=== PATIENT | male | born 1980 | race Caucasian/White ===

== ENCOUNTER → 2017-07-31 14:07 | Outpatient (CLI) | payer MEDICAID, SELFPAY ==
[2017-07-31 15:21] LABS: Hemoglobin 9.3 g/dl (13.0-16.5); Mean Corp Hgb Conc 32.1 g/gl (32-36); Mean Corpuscular Hgb 30.7 pg (27.0-32.0); Mean Corpuscular Volume 95.7 fL (80-94); Platelet Count 549 K/mm3 (150-450); RBC Distribution Width CV 13.4 % (11.6-14.6); RBC Distribution Width SD 44.3 fl (35.1-43.9); Red Blood Count 3.03 M/mm3 (4.6-6.2); White Blood Count 6.5 K/mm3 (4.4-11.0)
[2017-07-31 15:28] LABS: Scan Indicated on CBC? Y/N NO
[2017-07-31 15:38] LABS: ALB/GLOB Ratio 0.8 RATIO (0.9-2.4); AST(SGOT) 35 U/L (15-37); Alanine Aminotransfer ALT/SGPT 42 U/L (16-61); Albumin, Serum 3.4 g/dL (3.2-5.0); Alkaline Phosphatase 156 U/L (45-117); BUN 49 mg/dL (7-18); BUN/Creat Ratio 19.1 RATIO (10-20); Bilirubin, Direct 0.07 mg/dL (0.00-0.30); Calcium,Total 8.3 mg/dL (8.5-10.1); Chloride 105 mmol/L (98-107); Creatinine, Serum 2.57 mg/dL (0.70-1.30); EST Glomerular Filtration Rate 30 mL/min (>60); Est Glom Filt Rate - Afr Amer 37 mL/min (>60); Globulin 4.4 g/dL (2.2-4.2); Glucose 154 mg/dL (74-106); Phosphorus 4.3 mg/dL (2.5-4.9); Potassium 5.2 mmol/L (3.5-5.1); Protein, Total 7.8 g/dL (6.4-8.2); Sodium Level 139 mmol/L (136-145)
[2017-07-31 16:27] LABS: Hemoglobin A1c 8.2 % (4.2-6.3)
== END ==
PROVIDERS: Family Provider Internal Medicine; PCP Internal Medicine; Visit Provider Internal Medicine
DX: E10.9 Type 1 diabetes mellitus without complications (principal)
CPT/HCPCS: 36415; 80069; 82247; 82248; 83036; 84075; 84156; 84450; 84460; 85027

== ENCOUNTER → 2017-10-26 13:41 | Outpatient (CLI) | payer MEDICAID, SELFPAY ==
--- NOTE | 2017-10-26 13:44 | CT_ITS ---
STUDY: CT ABDOMEN AND PELVIS WITHOUT CONTRAST REASON FOR EXAM: Male, 37 years old. Hematuria. Stage III chronic kidney disease. RADIATION DOSAGE (If Supplied By Facility): CTDIvol = ( 13.07 ) mGy, DLP = ( 711.99 ) mGycm TECHNIQUE: Transaxial images were obtained from the dome of the diaphragm to the symphysis pubis without oral contrast, and without intravenous contrast. Sagittal and coronal images were reconstructed. Individualized dose optimization techniques were used for this CT. COMPARISON: Comparison is made with prior study dated June 06, 2017. FINDINGS: The visualized lung bases are unremarkable. The visualized portions of the heart are within normal limits. Normal liver. The gallbladder is contracted. Normal spleen. Normal pancreas. Normal bilateral adrenal glands. Once again, there is a cortical thinning involving both kidneys with the numerous cortical calcifications. This is basically unchanged. This is in keeping with the patient's history of chronic renal disease. There is a small hiatal hernia. Normal small intestine. A large amount of fecal material is seen in the colon. There are surgical clips in the region of the appendix consistent with a prior appendectomy. Normal abdominal aorta. Normal inferior vena cava. Normal retroperitoneum. A suprapubic catheter is seen. The urinary bladder is empty. There is thinning of the anterior abdominal wall. Normal osseous structures. CT/Abdomen/Pelvis without Cont IMPRESSION: Bilateral renal atrophy with diffuse cortical thickening. Suprapubic catheter within the bladder. The bladder is empty. Fecal material is seen throughout the colon. Electronically Signed: Jin Daly MD at 14:47 EDT Tel [phone], Service support ,
== END ==
PROVIDERS: Family Provider Internal Medicine; PCP Internal Medicine; Visit Provider Urology
DX: N28.9 Disorder of kidney and ureter, unspecified (principal); N26.1 Atrophy of kidney (terminal); R31.9 Hematuria, unspecified
CPT/HCPCS: 74176

== ENCOUNTER → 2017-11-17 07:27 | Outpatient (CLI) | payer MEDICAID, SELFPAY ==
[2017-05-21 06:14] VITALS: BP 101/70; BP 107/71; BP 111/69
[2017-07-12 12:55] VITALS: BMI 37.9
[2017-07-12 17:49] VITALS: BP 140/87
[2017-11-17 09:15] LABS: Hematocrit 38.8 % (40-54); Hemoglobin 12.7 g/dl (13.0-16.5); Mean Corp Hgb Conc 32.7 g/gl (32-36); Mean Corpuscular Hgb 30.5 pg (27.0-32.0); Mean Corpuscular Volume 93.3 fL (80-94); Mean Platelet Vol. 10.4 fl (6.2-12.0); Platelet Count 217 K/mm3 (150-450); RBC Distribution Width SD 50.1 fl (35.1-43.9); Red Blood Count 4.16 M/mm3 (4.6-6.2); White Blood Count 6.3 K/mm3 (4.4-11.0)
[2017-11-17 09:20] LABS: Protein, Urine (Random) < 6.0 mg/dL (<11.9); Scan Indicated on CBC? Y/N NO
[2017-11-17 09:33] LABS: Albumin, Serum 3.6 g/dL (3.2-5.0); BUN 53 mg/dL (7-18); BUN/Creat Ratio 14.6 RATIO (10-20); Calcium,Total 8.7 mg/dL (8.5-10.1); Chloride 108 mmol/L (98-107); Creatinine, Serum 3.63 mg/dL (0.70-1.30); EST Glomerular Filtration Rate 20 mL/min (>60); Est Glom Filt Rate - Afr Amer 25 mL/min (>60); Glucose 114 mg/dL (74-106); Phosphorus 4.2 mg/dL (2.5-4.9); Potassium 4.9 mmol/L (3.5-5.1); Sodium Level 143 mmol/L (136-145)
[2017-11-17 12:28] LABS: Vitamin D,25 Hydroxy 50.8 ng/mL (29.95-100.01)
[2017-11-17 12:32] LABS: PTHIN 118.4 pg/mL (18.4-80.1)
[2017-11-17 15:00] LABS: Microalbumin,Random Urine 62.5 mg/L (NO RANGE EST.); Microalbumin:Creatinine Ratio 290.7 mg/g CRE (<30 mg/g CRE)
== END ==
PROVIDERS: Family Provider Internal Medicine; PCP Internal Medicine; Visit Provider Internal Medicine Nephrology
DX: E55.9 Vitamin D deficiency, unspecified (principal); N18.4 Chronic kidney disease, stage 4 (severe); N25.81 Secondary hyperparathyroidism of renal origin; D63.1 Anemia in chronic kidney disease
CPT/HCPCS: 36415; 80069; 82043; 82306; 82570; 83970; 84156; 85027

== ENCOUNTER 2017-11-30 19:21 | Emergency (ER) | payer MEDICAID, SELFPAY ==
[2017-11-30 19:23] VITALS: BP 144/77; PULSE 99; RESP 18; TEMP 36.6; O2SAT 99; BMI 36.8
--- NOTE | 2017-11-30 20:05 | CT_ITS ---
STUDY: CT ABDOMEN AND PELVIS WITHOUT CONTRAST REASON FOR EXAM: Male, 37 years old. Abdominal and mid back pain RADIATION DOSAGE (If Supplied By Facility): CTDIvol = ( 16.53 ) mGy, DLP = ( 859.19 ) mGycm TECHNIQUE: Transaxial images were obtained from the dome of the diaphragm to the symphysis pubis without oral contrast, and without intravenous contrast. Sagittal and coronal images were reconstructed. Individualized dose optimization techniques were used for this CT. COMPARISON: October 26, 2017 FINDINGS: The visualized lung bases are unremarkable. The visualized portions of the heart are within normal limits. Normal liver. Normal gallbladder and extrahepatic biliary system. Normal spleen. Normal pancreas. Normal bilateral adrenal glands. Bilateral nephrocalcinosis and renal atrophy. No evidence for hydronephrosis or ureteral calculus. No well-defined renal nodules Normal visualized stomach. There is diffuse nonspecific ileus and fecal retention throughout the colon. No evidence for small bowel obstruction or pneumoperitoneum.. Appendix not identified which may be consistent with prior appendectomy. Normal abdominal aorta. Normal inferior vena cava. Normal retroperitoneum. Incompletely distended diffusely thick-walled bladder containing suprapubic catheter. There is moderate-sized anterior abdominal wall hernia containing loop of bowel.. There is no definitive evidence for proximal obstruction or incarceration.. Normal osseous structures. CT/Abdomen/Pelvis without Cont IMPRESSION: Nonspecific ileus with diffuse fecal retention in the colon.. Bilateral nonspecific nephrocalcinosis and renal atrophy Moderate size anterior abdominal wall hernia containing loop of small bowel without evidence for incarceration or proximal obstruction Other findings as above Electronically Signed: Guille Bobo MD at 21:55 EDT , Service support ,
--- NOTE | 2017-11-30 20:06 | ED.VISSUMM ---
- ER Visit Summary Date of Service: 11/30/17 Chief Complaint: Abdominal pain History of Present Illness: The patient is a 37 M presenting with abdominal pain. He states it started this afternoon. Pain is diffuse. He denies nausea, vomiting, diarrhea. He had a large bowel movement before this began. He states he has history of previous bowel obstructions. He also has history of previous UTI. He has a suprapubic catheter in place. He denies fever or other complaints. Physical Examination: Vitals are stable. Patient is afebrile. Alert no acute distress. HEENT exam is unremarkable. Neck is supple. Lungs are clear and equal bilaterally. Heart is regular rate and rhythm. Abdomen is soft mild diffuse tenderness with no rebound or guarding. Suprapubic catheter Extremities are unremarkable. Skin is warm and dry. No focal neurologic deficit. Remainder of exam is unremarkable. Emergency Department Course and Treatment: Patient is given morphine, Zofran with improvement. CBC normal except for hemoglobin 11.8. Chemistries show glucose 186, BUN 60, creatinine 3.8. His previous creatinine was 3.6 on November 17. He is followed by nephrology and had an appointment last week. His elevated creatinine is being followed by nephrology. Urinalysis shows 50-100 white blood cells 10-25 red blood cells. Suprapubic catheter is draining well. CT abdomen pelvis shows nonspecific ileus with diffuse fecal retention in the colon. Bilateral nonspecific nephrocalcinosis and renal atrophy Moderate size anterior abdominal wall hernia containing loop of small bowel without evidence for incarceration or proximal obstruction. Patient did have a large bowel movement today. He is on stool softeners at home. He is given a prescription for Cipro. Urine culture was sent. On repeat evaluation, his abdomen is soft and nontender with no guarding or rebound. Advised to follow-up with his primary care physician. Advised return to ED for worsening complaints. Disposition: Discharged home Impression: Abdominal pain, UTI This note was generated with [employer] dictation software. It may contain incorrect words, spelling, and punctuation that were not noted in review of the chart prior to signing ED Disposition - Plan for ED Patient: Chief Complaint: Abd Pain Referrals: Koki Finney MD [Primary Care Provider] -
[2017-11-30 20:28] LABS: Absolute Lymphocyte Count 1.93 X10^3/ul (0.83-4.51); Absolute Neutrophil Count 4.5 X10^3/uL (2.0-7.7); Basophil# 0.01 X10^3/uL; Basophil% 0.1 % (0-1); Eosinophil# 0.16 X10^3/uL; Eosinophils% 2.3 % (0-5); Hematocrit 35.7 % (40-54); Hemoglobin 11.8 g/dl (13.0-16.5); Lymphocyte # 1.93 X10^3/ul (4.0); Lymphocyte % 27.1 % (19-41); Mean Corp Hgb Conc 33.1 g/gl (32-36); Mean Corpuscular Hgb 31.2 pg (27.0-32.0); Mean Corpuscular Volume 94.4 fL (80-94); Mean Platelet Vol. 10.3 fl (6.2-12.0); Monocyte# 0.48 X10^3/uL; Monocyte% 6.8 % (0-10); Neutrophil # 4.52 X10^3/uL (2.7-7.7); Neutrophil % 63.6 % (47-70); POSITIVE COUNT NO; POSITIVE DIFFERENTIAL NO; POSITIVE MORPHOLOGY NO; Platelet Count 193 K/mm3 (150-450); RBC Distribution Width CV 14.2 % (11.6-14.6); RBC Distribution Width SD 48.6 fl (35.1-43.9); Red Blood Count 3.78 M/mm3 (4.6-6.2); White Blood Count 7.1 K/mm3 (4.4-11.0)
[2017-11-30] MEDS: Ondansetron 4 MG/2 ML Vial IV (20:36)
[2017-11-30] MEDS: Morphine 4 MG/ML Syringe IV (20:36)
[2017-11-30 20:41] LABS: ALB/GLOB Ratio 0.7 RATIO (0.9-2.4); AST(SGOT) 19 U/L (15-37); Alanine Aminotransfer ALT/SGPT 27 U/L (16-61); Albumin, Serum 3.5 g/dL (3.2-5.0); Alkaline Phosphatase 147 U/L (45-117); Anion Gap 7 (5-15); BUN 60 mg/dL (7-18); BUN/Creat Ratio 15.5 RATIO (10-20); Calcium,Total 8.3 mg/dL (8.5-10.1); Chloride 105 mmol/L (98-107); Creatinine, Serum 3.88 mg/dL (0.70-1.30); EST Glomerular Filtration Rate 19 mL/min (>60); Est Glom Filt Rate - Afr Amer 23 mL/min (>60); Estimated Creatinine Clearance 22.25 ml/min; Globulin 4.7 g/dL (2.2-4.2); Glucose 186 mg/dL (74-106); Protein, Total 8.2 g/dL (6.4-8.2); Sodium Level 139 mmol/L (136-145)
[2017-11-30 22:05] LABS: Mucous, Urine 0 SEEN /hpf (<or=2+)
[2017-11-30 22:06] LABS: Color, Urine Yellow (Yellow); Glucose, Dipstick 100 mg/dl (Normal); Ketone-Dipstick Negative (Negative); Leukocyte Esterase-Dipstick 500 /ul (Negative); Nitrite-Dipstick Negative (Negative); Occult Blood-Urine 250 /ul (Negative); Protein-Dipstick 15 mg/dl (Negative); Specific Gravity, Urine 1.005 (1.002-1.030); Urine Bilirubin Dipstick Negative (Negative); Urine Clarity Sl. Cloudy (Clear); Urine Urobilinogen Normal (Normal); Urine pH 6.5 (5.0 - 8.0)
[2017-11-30 22:07] VITALS: BP 128/77; PULSE 85; RESP 16
[2017-11-30 22:18] LABS: Bacteria RARE /hpf (None Seen); Red Blood Cells-Urine 10-25 SEEN /hpf (0-5); Squamous Epithelial Cells - UA 0-5 SEEN /hpf (0-5); White Blood Cells 50-100 SEEN /hpf (0-5)
--- NOTE | 2017-11-30 22:55 | ED.DEP ---
ED Disposition - Plan for ED Patient: Chief Complaint: Abd Pain Instructions: ED Abdominal Pain Unkn Cause, ED UTI Cystitis Male Prescriptions: Ciprofloxacin [Cipro] 500 mg PO BID #14 tablet Referrals: Koki Finney MD [Primary Care Provider] -
[2017-11-30] MEDS: Ciprofloxacin 500 MG Tablet PO (23:22)
[2017-11-30 23:23] VITALS: BP 134/85; PULSE 85; RESP 16
== END 2017-11-30 23:28 | disposition home or self-care (01) ==
LOC: ED 20:08
PROVIDERS: Emergency Provider Emergency Medicine; Family Provider Internal Medicine; PCP Internal Medicine
DX: N39.0 Urinary tract infection, site not specified (principal); K56.7 Ileus, unspecified; E83.59 Other disorders of calcium metabolism; N29 Other disorders of kidney and ureter in diseases classified elsewhere; K43.9 Ventral hernia without obstruction or gangrene; I12.9 Hypertensive chronic kidney disease with stage 1 through stage 4 chronic kidney disease, or unspecified chronic kidney disease; E11.22 Type 2 diabetes mellitus with diabetic chronic kidney disease; N18.9 Chronic kidney disease, unspecified; Z79.4 Long term (current) use of insulin; Z87.440 Personal history of urinary (tract) infections; Z79.82 Long term (current) use of aspirin; Z79.01 Long term (current) use of anticoagulants; Z79.899 Other long term (current) drug therapy
CPT/HCPCS: 74176; 80053; 81001; 85025; 87077; 87086; 87088; 87186; 96374; 96375; 99285; A4216; J2405

== ENCOUNTER 2017-12-10 06:18 | Emergency (ER) | payer MEDICAID, SELFPAY ==
[2017-12-10 06:19] VITALS: BP 133/102; PULSE 101; RESP 20; TEMP 36.7; O2SAT 94; BMI 37.5
--- NOTE | 2017-12-10 06:43 | ED.VISSUMM ---
- ER Visit Summary Date of Service: 12/10/17 Chief Complaint: [Suprapubic catheter needs replaced] History of Present Illness: The patient is a 37 M [presents to the emergency department with complaint of accidentally removing his suprapubic catheter. Patient states that he accidentally pulled on it and it came out. Patient states he had the catheter replaced 2 days ago as he normally has it replaced every 2 weeks. Patient denies complaints otherwise. He denies any recent illness although he did have a urinary tract infection about 2 weeks ago. Patient denies fever. Patient denies nausea or vomiting.] Physical Examination: [HEENT-PERRLA, EOMI. Cranial nerves II through XII grossly intact. TMs clear. Mucous membranes moist. No adenopathy. Cardiovascular-regular rate and rhythm without murmur or ectopy Lungs-clear to auscultation, chest wall stable without crepitus or subcu emphysema Abdomen-normoactive bowel sounds, soft, nontender, no rebound or rigidity, no peritoneal signs. Supra Pubic catheter site without bleeding and without sign of infection. Extremities-intact ?4, normal range of motion, normal pulses, atraumatic] Test Results: [None indicated] Emergency Department Course and Treatment: [Patient normally has an 18 Frisian catheter therefore I was able to easily replace the suprapubic catheter with an 18 Frisian Fracno.] Immediate return of urine on placement of catheter. Treatment Plan: [Patient to follow-up with his primary care physician as needed] Disposition: [Discharged to home in stable condition] Impression: [Suprapubic catheter replaced] This note was generated with [employer] dictation software. It may contain incorrect words, spelling, and punctuation that were not noted in review of the chart prior to signing ED Disposition - Plan for ED Patient: Chief Complaint: Complaint Referrals: Koki Finney MD [Primary Care Provider] -
--- NOTE | 2017-12-10 06:46 | ED.DEP ---
ED Disposition - Plan for ED Patient: Chief Complaint: Complaint Instructions: Discharge Instructions: Caring for Your Suprapubic Catheter Referrals: Koki Finney MD [Primary Care Provider] - As Needed
[2017-12-10 06:56] VITALS: BP 156/91; PULSE 104; RESP 16; O2SAT 93
== END 2017-12-10 07:24 | disposition home or self-care (01) ==
PROVIDERS: Emergency Provider Emergency Medicine; Family Provider Internal Medicine; PCP Internal Medicine
DX: T83.028A Displacement of other urinary catheter, initial encounter (principal); E11.22 Type 2 diabetes mellitus with diabetic chronic kidney disease; N18.9 Chronic kidney disease, unspecified; J45.909 Unspecified asthma, uncomplicated; Z79.4 Long term (current) use of insulin; Z79.82 Long term (current) use of aspirin; Z79.899 Other long term (current) drug therapy
CPT/HCPCS: 51702; 99285

== ENCOUNTER → 2017-12-19 12:57 | Outpatient (CLI) | payer MEDICAID, SELFPAY ==
--- NOTE | 2017-12-19 12:59 | VDUE_ITS ---
Reason For Study: Assess for possible dialysis access placement Right Arm Left Arm Right Cephalic Vein at the wrist Left Cephalic Vein at the wrist measures .15 measures .23 x .23 cm. x .15 cm. Right Cephalic Vein in the forearm Left Cephalic Vein in the forearm measures .24 x .24 cm. measures .18 x .18 cm. Right Cephalic Vein below antecub Left Cephalic Vein below antecub measures .30 x .34 cm. measures .22 x .23 cm. Right Cephalic Vein above antecub Cephalic above antecubital space is non- measures .32 x .32 cm. compressible. Right Cephalic Vein mid bicep measures .33 Basilic vein at origin measures .36 x .33 x .32 cm. cm. Right Cephalic Vein at the shoulder Basilic vein at bicep measures .21 x .25 cm. measures .39 x .40 cm. Basilic vein above antecub measures .21 Right Basilic Vein at the origin x .23 cm. measures .41 x .41 cm. Brachial artery - .38 x .36 cm with a Right Basilic Vein mid bicep measures .35 velocity of 85.0 cm/s x .35 cm. Radial artery - .15 x .18 cm with a velocity Right Basilic Vein above antecub of 25.5 cm/s. measures .40 x .40 cm. Brachial artery - .31 x .36 cm with a velocity of 65.2 cm/s Radial artery - .17 x .18 cm with a velocity of 53.8 cm/sec. < Interpretation Summary Patent and compressible right upper extremity cephalic and basilic veins with dimensions as noted. Thrombosed left upper arm cephalic vein Patent and compressible left upper arm basilic vein. Normal flow bilateral brachial arteries with small bilateral radial arteries. Ordering Physician: Taylor Owens PA-C Referring Physician: Joao Abreu Performed By: Yas Dalton RVT ??? Reason For Study: Assess for possible dialysis access placement < Interpretation Summary Patent and compressible right upper extremity cephalic and basilic veins with dimensions as noted. Thrombosed left upper arm cephalic vein Patent and compressible left upper arm basilic vein. Normal flow bilateral brachial arteries with small bilateral radial arteries. Ordering Physician: Taylor Owens PA-C Referring Physician: Joao Abreu Performed By: Yas Dalton RVT
== END ==
PROVIDERS: Family Provider Internal Medicine; PCP Internal Medicine; Visit Provider Surgery
DX: N18.4 Chronic kidney disease, stage 4 (severe) (principal)
CPT/HCPCS: 93970

== ENCOUNTER 2017-12-24 17:59 | Emergency (ER) | payer MEDICAID, SELFPAY ==
[2017-12-24 18:00] VITALS: BP 144/84; PULSE 104; RESP 18; TEMP 37.2; O2SAT 94; BMI 37.8
[2017-12-24 19:24] LABS: Absolute Lymphocyte Count 1.79 X10^3/ul (0.83-4.51); Absolute Neutrophil Count 4.7 X10^3/uL (2.0-7.7); Basophil# 0.01 X10^3/uL; Basophil% 0.1 % (0-1); Eosinophil# 0.15 X10^3/uL; Hematocrit 33.7 % (40-54); Hemoglobin 10.9 g/dl (13.0-16.5); Lymphocyte # 1.79 X10^3/ul (4.0); Lymphocyte % 24.2 % (19-41); Mean Corp Hgb Conc 32.3 g/gl (32-36); Mean Corpuscular Volume 95.7 fL (80-94); Mean Platelet Vol. 10.3 fl (6.2-12.0); Monocyte# 0.71 X10^3/uL; Monocyte% 9.6 % (0-10); Neutrophil # 4.72 X10^3/uL (2.7-7.7); Platelet Count 187 K/mm3 (150-450); RBC Distribution Width CV 13.3 % (11.6-14.6); RBC Distribution Width SD 46.6 fl (35.1-43.9); Red Blood Count 3.52 M/mm3 (4.6-6.2); White Blood Count 7.4 K/mm3 (4.4-11.0)
[2017-12-24 19:25] LABS: POSITIVE COUNT NO; POSITIVE DIFFERENTIAL NO; POSITIVE MORPHOLOGY NO
[2017-12-24 19:31] LABS: Anion Gap 8 (5-15); BUN 60 mg/dL (7-18); BUN/Creat Ratio 14.9 RATIO (10-20); Calcium,Total 8.1 mg/dL (8.5-10.1); Chloride 105 mmol/L (98-107); Creatinine, Serum 4.04 mg/dL (0.70-1.30); EST Glomerular Filtration Rate 18 mL/min (>60); Est Glom Filt Rate - Afr Amer 22 mL/min (>60); Estimated Creatinine Clearance 21.37 ml/min; Glucose 86 mg/dL (74-106); Potassium 4.6 mmol/L (3.5-5.1); Sodium Level 140 mmol/L (136-145)
[2017-12-24 19:55] LABS: Mucous, Urine 0 SEEN /hpf (<or=2+); Red Blood Cells-Urine 0 SEEN /hpf (0-5)
[2017-12-24 19:56] LABS: Color, Urine Yellow (Yellow); Glucose, Dipstick Normal (Normal); Ketone-Dipstick Negative (Negative); Leukocyte Esterase-Dipstick 500 /ul (Negative); Nitrite-Dipstick Negative (Negative); Occult Blood-Urine 150 /ul (Negative); Protein-Dipstick 30 mg/dl (Negative); Urine Bilirubin Dipstick Negative (Negative); Urine Clarity Sl. Cloudy (Clear); Urine Urobilinogen Normal (Normal); Urine pH 6.5 (5.0 - 8.0)
[2017-12-24 20:07] LABS: White Blood Cells 50-100 SEEN /hpf (0-5)
[2017-12-24 20:08] LABS: Bacteria 1+ /hpf (None Seen); Squamous Epithelial Cells - UA 0-5 SEEN /hpf (0-5); Yeast-Urine 3+ /hpf (None Seen)
--- NOTE | 2017-12-24 20:57 | ED.VISSUMM ---
- ER Visit Summary Date of Service: 12/24/17 Chief Complaint: Hematuria History of Present Illness: The patient is a [address] Finney, Dr. Patel, and Dr. Gonzales. He has a suprapubic catheter. Comes in because he noticed blood in his catheter bag today. States he has had a temperature of 100?. He denies any abdominal pain, nausea, vomiting, diarrhea, flank pain, or other complaints. Physical Examination: Vitals: Stable. Afebrile. General: Well-nourished and well-developed. Head: Normocephalic atraumatic. Neck: Supple, no lymphadenopathy. No JVD. Nontender. Cardiovascular: Regular rate and rhythm. No murmurs. Respiratory: No respiratory distress. Clear to auscultation bilaterally. Abdominal: Soft, nontender, nondistended, normal bowel sounds. No guarding, rebound, or peritoneal signs. Back: Nontender. Extremities: Nontender, no edema. Skin: Normal color, no rash. Neurologic: Alert and oriented ?3. Cranial nerves II through XII are intact. Normal strength and sensation. Psych: Normal affect. Test Results: CBC is marked for an H&H 10 point and 33.7. Chem-7 is more for a calcium of 8.1, BUN 60, creatinine 4.04. Baseline creatinine is from 2.47-3.88 in 2018. UA shows no blood, but 5200 white blood cells and 1+ bacteria. Emergency Department Course and Treatment: Reviewed the patient's prior urine cultures. His last urine culture grew Serratia and Citrobacter. The only oral antibiotic that both of these was sensitive to was Cipro. The patient had been placed on that. Treatment Plan: The patient was discussed with Dr. Rodriguez. He does have a suprapubic catheter that is likely going to always have white cells and be colonized. However, given the temperature of 100? we decided to treat him with oral antibiotics. His creatinine clearance is 21. He will be discharged on Cipro 250 mg every 18 hours and instructed to follow-up Dr. Patel in 3 days to get the results of his urine culture. Instructed to return to emerge from if he develops fever, nausea, vomiting, or other symptoms of a worsening infection. Disposition: To home in improved and stable condition. Impression: 1. Suprapubic catheter. 2. Chronic renal insufficiency. This note was generated with [employer] dictation software. It may contain incorrect words, spelling, and punctuation that were not noted in review of the chart prior to signing ED Disposition - Plan for ED Patient: Disposition: Home or Assisted Living Chief Complaint: Franco C/O Instructions: Discharge Instructions: Caring for Your Suprapubic Catheter Prescriptions: Ciprofloxacin [Cipro] 250 mg PO UD #10 tablet Referrals: Jose Juan Patel MD [STAFF PHYSICIAN] - 12/27/17
--- NOTE | 2017-12-24 21:01 | ED.DCSUM_ITS ---
- ER Visit Summary Date of Service: 12/24/17 Chief Complaint: Hematuria History of Present Illness: The patient is a [address] Finney, Dr. Patel, and Dr. Gonzales. He has a suprapubic catheter. Comes in because he noticed blood in his catheter bag today. States he has had a temperature of 100 ?. He denies any abdominal pain, nausea, vomiting, diarrhea, flank pain, or other complaints. Physical Examination: Vitals: Stable. Afebrile. General: Well-nourished and well-developed. Head: Normocephalic atraumatic. Neck: Supple, no lymphadenopathy. No JVD. Nontender. Cardiovascular: Regular rate and rhythm. No murmurs. Respiratory: No respiratory distress. Clear to auscultation bilaterally. Abdominal: Soft, nontender, nondistended, normal bowel sounds. No guarding, rebound, or peritoneal signs. Back: Nontender. Extremities: Nontender, no edema. Skin: Normal color, no rash. Neurologic: Alert and oriented ?3. Cranial nerves II through XII are intact. Normal strength and sensation. Psych: Normal affect. Test Results: CBC is marked for an H&H 10 point and 33.7. Chem-7 is more for a calcium of 8.1, BUN 60, creatinine 4.04. Baseline creatinine is from 2.47-3.88 in 2018. UA shows no blood, but 5200 white blood cells and 1+ bacteria. Emergency Department Course and Treatment: Reviewed the patient's prior urine cultures. His last urine culture grew Serratia and Citrobacter. The only oral antibiotic that both of these was sensitive to was Cipro. The patient had been placed on that. Treatment Plan: The patient was discussed with Dr. Rodriguez. He does have a suprapubic catheter that is likely going to always have white cells and be colonized. However, given the temperature of 100? we decided to treat him with oral antibiotics. His creatinine clearance is 21. He will be discharged on Cipro 250 mg every 18 hours and instructed to follow-up Dr. Patel in 3 days to get the results of his urine culture. Instructed to return to emerge from if he develops fever, nausea, vomiting, or other symptoms of a worsening infection. Disposition: To home in improved and stable condition. Impression: 1. Suprapubic catheter. 2. Chronic renal insufficiency. This note was generated with [employer] dictation software. It may contain incorrect words, spelling, and punctuation that were not noted in review of the chart prior to signing ED Disposition - Plan for ED Patient: Disposition: Home or Assisted Living Chief Complaint: Franco C/O Instructions: Discharge Instructions: Caring for Your Suprapubic Catheter Prescriptions: Ciprofloxacin [Cipro] 250 mg PO UD #10 tablet Referrals: Jose Juan Patel MD [STAFF PHYSICIAN] - 12/27/17
[2017-12-24] MEDS: Ciprofloxacin 250 MG Tablet PO (21:07)
[2017-12-24 21:08] VITALS: BP 145/63; PULSE 88; RESP 16; O2SAT 99
[2017-12-24 21:09] VITALS: BP 145/83
== END 2017-12-24 21:09 | disposition home or self-care (01) ==
PROVIDERS: Emergency Provider Emergency Medicine; Family Provider Internal Medicine; PCP Internal Medicine
DX: R31.9 Hematuria, unspecified (principal); I12.9 Hypertensive chronic kidney disease with stage 1 through stage 4 chronic kidney disease, or unspecified chronic kidney disease; E11.22 Type 2 diabetes mellitus with diabetic chronic kidney disease; N18.9 Chronic kidney disease, unspecified; E11.319 Type 2 diabetes mellitus with unspecified diabetic retinopathy without macular edema; E78.00 Pure hypercholesterolemia, unspecified; F32.9 Major depressive disorder, single episode, unspecified; E87.1 Hypo-osmolality and hyponatremia; Z96.0 Presence of urogenital implants; Z79.82 Long term (current) use of aspirin; Z79.4 Long term (current) use of insulin; Z79.899 Other long term (current) drug therapy
CPT/HCPCS: 80048; 81001; 85025; 87077; 87086; 87088; 87186; 99283

== ENCOUNTER 2018-01-17 05:55 | Day surgery (SDC) | payer MEDICAID, SELFPAY ==
[2018-01-17 06:29] VITALS: BP 128/78; PULSE 81; RESP 20; TEMP 36.3; O2SAT 97; BMI 37.5
[2018-01-17 06:50] LABS: Bedside Glucose 214 mg/dL (70-110)
[2018-01-17] MEDS: Cefazolin 2 GM in 0.9% Normal Saline 100 ML IV (07:26)
--- NOTE | 2018-01-17 07:48 | PCM.DC.URO ---
Discharge Diet: No Restrictions Discharge Activity: Return to Normal Activity Catheter: Franco to large bag Drain: [place] Allergies/Adverse Reactions: Allergies No Known Allergies Allergy (Verified 01/09/18 11:31) Medications to take at Discharge Ascorbic Acid [Vitamin C] 1,000 mg PO DAILY 02/21/15 Aspirin [Aspirin, Baby] 81 mg PO DAILY 02/21/15 Fluoxetine [Prozac] 30 mg PO DAILY 02/21/15 Quetiapine Fumarate [Seroquel] 100 mg PO 1700 02/21/15 Quetiapine Fumarate [Seroquel] 200 mg PO BID 02/21/15 Loratadine [Claritin] 10 mg PO DAILY 07/08/15 Melatonin 3 mg PO QHS 12/09/15 Insulin Lispro [Humalog Kwikpen] 0 unit SQ TIDCM 08/29/16 Atorvastatin Calcium 5 mg PO QHS 11/07/16 Pantoprazole Sodium [Protonix] 40 mg PO DAILY 11/07/16 Sennosides [Senna] 8.6 mg PO BID 12/29/16 Metoprolol Tartrate 12.5 mg PO BID 05/20/17 Oxybutynin [Ditropan] 5 mg PO DAILY PRN 05/20/17 Polyethylene Glycol 3350 [Miralax] 17 gm PO BID PRN PRN #0 05/21/17 Fluticasone Propionate [Flovent Diskus] 2 spray NARES DAILY 11/30/17 Olopatadine HCl [Pazeo] 1 drop EACH EYE DAILY 11/30/17 acetaminophen 325 mg tablet 650 mg PO Q8H PRN tab 12/13/17 albuterol sulfate HFA 90 mcg/actuation aerosol inhaler 2 puff INHALATION Q4H PRN 12/13/17 insulin glargine (U-100) 100 unit/mL (3 mL) subcutaneous pen 10 unit SC BID ml 12/13/17 ketoconazole 2 % shampoo 1 applic TOPICAL Q2W PRN 12/13/17 Glucagon 1 mg SC X1 PRN 12/24/17 Insulin Lispro [Humalog] 8 unit SQ BREAKFAST 12/24/17 Insulin Lispro [Humalog] 8 unit SQ DINNER 12/24/17 Cholecalciferol (Vitamin D3) [Vitamin D3] 5,000 unit PO DAILY 01/09/18 Ferrous Sulfate [Iron] 2 tab PO DAILY 01/09/18 Insulin Lispro [Humalog KwikPen] 4 unit SQ LUNCH 01/09/18 Primary Care Physician: Koki Finney MD [Primary Care Provider] - Test Results: Test results from this visit will be discussed in further detail at your follow-up appointment, if applicable. Please Follow Up With: Jose Juan Patel MD When: please call to make an appointment.
--- NOTE | 2018-01-17 07:49 | PCM.OPRPT ---
Report of Operation Date of Procedure: 01/17/18 Pre-Operative Diagnosis: gross hematuria Post-Operative Diagnosis: same Surgery/Procedure Performed:: cystoscopy and change SP tube. Description of Surgical Findings:: 37 yo male prep draped sterile fashion when into penis with 19 fr scope channel normal, scarred down, blind end urethra at bulbar urethra SP tube removed, scope via SP tube track, normal bladder some inflammation no tumors, retrogrades not possible, new SP tube placed. 18 fr. Type of Anesthesia:: General Drains: 18 fr SP tube - Admit VTE Documentation VTE Present on Admission: No VTE Mechan Device Prophylaxis: SCD's
[2018-01-17 07:55] VITALS: BP 120/87; BP 128/78; PULSE 83; RESP 18; TEMP 36.2; O2SAT 93
[2018-01-17 08:01] VITALS: BP 117/84; BP 128/78; PULSE 79; RESP 18; O2SAT 94
[2018-01-17 08:11] LABS: Bedside Glucose 231 mg/dL (70-110)
[2018-01-17 08:15] VITALS: BP 128/78; BP 128/89; PULSE 79; RESP 18; TEMP 36.3; O2SAT 99
[2018-01-17 08:31] VITALS: BP 128/78
== END 2018-01-17 08:45 | disposition home or self-care (01) ==
LOC: SDC 05:55 → AC 05:57
PROVIDERS: Family Provider Internal Medicine; PCP Internal Medicine; Visit Provider Urology
PROC: (CPT 74450; principal; 2018-01-17 07:20)
DX: R31.0 Gross hematuria (principal); R33.8 Other retention of urine; R41.840 Attention and concentration deficit; F63.81 Intermittent explosive disorder; F70 Mild intellectual disabilities; I10 Essential (primary) hypertension; K21.9 Gastro-esophageal reflux disease without esophagitis; F32.9 Major depressive disorder, single episode, unspecified; F41.9 Anxiety disorder, unspecified; E10.9 Type 1 diabetes mellitus without complications; Z79.4 Long term (current) use of insulin; Z79.84 Long term (current) use of oral hypoglycemic drugs; Z79.82 Long term (current) use of aspirin; Z79.899 Other long term (current) drug therapy
CPT/HCPCS: 51705; 82962; J7120; J2405

== ENCOUNTER → 2018-02-06 08:31 | Outpatient (CLI) | payer MEDICAID, SELFPAY ==
[2018-02-06 10:14] LABS: Anion Gap 8 (5-15); BUN 59 mg/dL (7-18); BUN/Creat Ratio 13.6 RATIO (10-20); Calcium,Total 8.8 mg/dL (8.5-10.1); Chloride 106 mmol/L (98-107); Creatinine, Serum 4.35 mg/dL (0.70-1.30); EST Glomerular Filtration Rate 17 mL/min (>60); Est Glom Filt Rate - Afr Amer 20 mL/min (>60); Glucose 163 mg/dL (74-106); Potassium 5.1 mmol/L (3.5-5.1); Sodium Level 142 mmol/L (136-145)
== END ==
PROVIDERS: Family Provider Internal Medicine; PCP Internal Medicine; Visit Provider Internal Medicine Nephrology
DX: E87.5 Hyperkalemia (principal)
CPT/HCPCS: 36415; 80048

== ENCOUNTER 2018-02-16 06:31 | Day surgery (SDC) | payer MEDICAID, SELFPAY ==
[2018-02-16] VITALS (11 sets, daily range): BP systolic 125–158; BP diastolic 70–86; PULSE 83–94; RESP 18; TEMP 36–37.2; O2SAT 95–99; BMI 38.4
[2018-02-16 07:09] LABS: Hematocrit 37.4 % (40-54); Hemoglobin 12.6 g/dl (13.0-16.5); Mean Corp Hgb Conc 33.7 g/gl (32-36); Mean Corpuscular Hgb 32.3 pg (27.0-32.0); Mean Corpuscular Volume 95.9 fL (80-94); Mean Platelet Vol. 10.3 fl (6.2-12.0); Platelet Count 184 K/mm3 (150-450); RBC Distribution Width CV 12.5 % (11.6-14.6); RBC Distribution Width SD 42.7 fl (35.1-43.9); White Blood Count 7.1 K/mm3 (4.4-11.0)
[2018-02-16 07:13] LABS: Scan Indicated on CBC? Y/N NO
[2018-02-16 07:25] LABS: Bedside Glucose 208 mg/dL (70-110)
[2018-02-16 07:25] LABS: Anion Gap 10 (5-15); BUN 68 mg/dL (7-18); BUN/Creat Ratio 17.2 RATIO (10-20); Calcium,Total 8.8 mg/dL (8.5-10.1); Chloride 104 mmol/L (98-107); Creatinine, Serum 3.96 mg/dL (0.70-1.30); EST Glomerular Filtration Rate 18 mL/min (>60); Est Glom Filt Rate - Afr Amer 22 mL/min (>60); Estimated Creatinine Clearance 21.59 ml/min; Glucose 189 mg/dL (74-106); Potassium 4.9 mmol/L (3.5-5.1); Sodium Level 140 mmol/L (136-145)
--- NOTE | 2018-02-16 08:43 | PCM.DC.FIST ---
Discharge Diet: Renal Diet Discharge Activity: May Not Drive - for 2-3 days or while taking narcotic pain medications., May Shower, May Take a Tub Bath - in 5 days. Lifting Restrictions: 5 pounds Keep extremity elevated above heart level: - - Keep arm elevated above the heart level for 3 days. Additional Activity Instructions:: Exercise hand vigorously with a stress ball. Call your doctor if your incision/area has: Continuous Slow Oozing, Sudden Increased Bleeding - apply pressure and call your doctor., Increased Pain/ Swelling, Increased Redness, Foul Smelling Discharge Call your doctor if you observe: Fever of 101 or Higher Suture Line Care: Avoid Pulling/Pushing, Avoid Pinching/Bending Cleanse incision/area with: Keep Dressing Clean & Dry Additional Dressing/Incision Instructions:: Change or remove dressing in one day. May protect with a gauze bandaid. Allergies/Adverse Reactions: Allergies No Known Allergies Allergy (Verified 01/25/18 08:04) Medications to take at Discharge Ascorbic Acid [Vitamin C] 1,000 mg PO DAILY 02/21/15 Aspirin [Aspirin, Baby] 81 mg PO DAILY 02/21/15 Fluoxetine [Prozac] 30 mg PO DAILY 02/21/15 Quetiapine Fumarate [Seroquel] 100 mg PO 1700 02/21/15 Quetiapine Fumarate [Seroquel] 200 mg PO BID 02/21/15 Loratadine [Claritin] 10 mg PO DAILY 07/08/15 Melatonin 3 mg PO QHS 12/09/15 Insulin Lispro [Humalog Kwikpen] 4 unit SQ LUNCH 08/29/16 Atorvastatin Calcium 5 mg PO QHS 11/07/16 Pantoprazole Sodium [Protonix] 40 mg PO DAILY 11/07/16 Sennosides [Senna] 8.6 mg PO BID 12/29/16 Metoprolol Tartrate 12.5 mg PO BID 05/20/17 Oxybutynin [Ditropan] 5 mg PO DAILY PRN 05/20/17 Fluticasone Propionate [Flovent Diskus] 2 spray NARES DAILY 11/30/17 Olopatadine HCl [Pazeo] 1 drp EACH EYE DAILY 11/30/17 acetaminophen 325 mg tablet 650 mg PO Q8H PRN tab 12/13/17 albuterol sulfate HFA 90 mcg/actuation aerosol inhaler 2 puff INHALATION Q4H PRN 12/13/17 ketoconazole 2 % shampoo 1 applic TOPICAL Q2W PRN 12/13/17 Insulin Lispro [Humalog] 8 unit SQ BREAKFAST 12/24/17 Insulin Lispro [Humalog] 8 unit SQ DINNER 12/24/17 Cholecalciferol (Vitamin D3) [Vitamin D3] 5,000 unit PO DAILY 01/09/18 Ferrous Sulfate [Iron] 2 tab PO DAILY 01/09/18 Insulin Glargine [Lantus (BKC)] 10 units SC QHS 02/09/18 Insulin Glargine,Hum.rec.anlog [Lantus Solostar] 14 unit SQ DAILY 02/09/18 Polyethylene Glycol 3350 [Miralax] 17 gm PO BID 02/09/18 Hydrocodone Bitart/Apap 5-325 [[place] 5MG-325MG] 1 tablet PO Q6H PRN PRN 3 Days #5 tablet 02/16/18 The following prescriptions were given: Hydrocodone Bitart/Apap 5-325 [[place] 5MG-325MG] 1 tablet PO Q6H PRN PRN 3 Days #5 tablet PRN Reason: Pain Primary Care Physician: Koki Finney MD [Primary Care Provider] - Test Results: Test results from this visit will be discussed in further detail at your follow-up appointment, if applicable. Please Follow Up With: Joao Abreu MD - [phone] When: Call to make an appointment for suture removal and follow up in 1 week.
[2018-02-16] MEDS: Heparin Injection (Vial) 5,000 UNIT/ML VIAL 5000 UNIT (09:11)
[2018-02-16] MEDS: Bupivacaine Mpf 0.5% 30 ML VIAL (09:15)
--- NOTE | 2018-02-16 10:29 | PCM.OPRPT ---
Problem List (1) Problem with dialysis access Status: Acute Qualifiers: Encounter type: subsequent encounter Report of Operation Date of Procedure: 02/16/18 Pre-Operative Diagnosis: Thrombosed left upper extremity AV fistula Post-Operative Diagnosis: Same Surgery/Procedure Performed:: Stage I right forearm radial to cephalic arteriovenous fistula creation Description of Surgical Findings:: Timeout and informed consent was obtained. 38-year-old gentleman was taken out from. He was placed upon the table. He underwent monitored anesthesia care local anesthetic. The right upper extremity was sterilely prepped draped. I did perform ultrasound identifying the course of the cephalic vein at the wrist. 1% lidocaine mixed 50-50 with 0.5% Marcaine was used as local anesthetic. Throughout the procedure total of 13 cc was used. A slightly oblique incision was created at the wrist sharp and blunt dissection was used to identify the cephalic vein. It was dissected free distally and proximally. Side branches were secured with hemoclips. Then dissection was performed medially. The radial artery was identified and circumferential control was obtained. The patient received 8000 units of heparin. The vein was ligated distally with a Hemoclip. The vein was irrigated and carefully spatulated. Peripheral vascular clamps were placed on the radial artery. A 11 blade was used to make an arteriotomy which was extended with [place] scissors. The vein was spatulated and a end-to-side anastomosis was created with running 7-0 Prolene. There appear to be adequate antegrade and retrograde flow. Upon completion Doppler signal detected good flow. Hemostasis was intact. The wound was closed in layers with interrupted 4-0 Vicryl subcu dermal stitches and then a running septic or 4-0 Monocryl. Steri-Strips Telfa and OpSite dressings applied. Sponge and instrument and needle counts were reported the surgeon be correct. Blood loss was minimal. He tolerated the procedure well and was taken to the recovery area in sagittal condition without apparent complication. Specimens none. Drains none. Blood loss minimal. Joao Abreu M.D., F.A.C.S. Type of Anesthesia:: Local MAC Anesthesiologist: Herrera Singer
[2018-02-16 11:15] LABS: Bedside Glucose 154 mg/dL (70-110)
--- NOTE | 2018-02-16 13:11 | SUR.PHASEII ---
Addendum entered by Miesha Cha 02/16/18 16:07: 1530 DR. KEITH IN TO SEE PT. HE CHANGED DRESSING. NO ACTIVE BLEEDING NOTED. PT OKAYED FOR DISCHARGE. Original Note: Addendum entered by Miesha Cha 02/16/18 14:28: 1340 DRESSING REMOVED FROM ARM. NO ACTIVE OOZING. PT LIFTED ARM TOWARDS HIS FACE. LARGE GUSH OF BLOOD NOTED FROM FISTULA. PRESSURE IMMEDIATELY APPLIED. MODERATE PRESSURE HELD FOR 30 MIN. 1420 GAUZE, TELFA, AND THEODORA APPLIED. ARM ELEVATED ON PILLOW. PT INSTRUCTED TO HOLD ARM STILL. WILL REASSESS. Original Note: 1308 dressing to fistula site changed per dr keith order. bruit noted upon auscultation. no swelling noted to arm.
[2018-02-16 14:11] LABS: Bedside Glucose 141 mg/dL (70-110)
[2018-02-16] MEDS: HYDROcodone Bitartrate/Apap 5/325 Tablet PO (14:19)
== END 2018-02-16 16:00 | disposition home or self-care (01) ==
LOC: SDC 06:34 → AC 06:34
PROVIDERS: Family Provider Internal Medicine; PCP Internal Medicine; Visit Provider Surgery
PROC: (CPT 36821; principal; 2018-02-16 08:30)
DX: T82.868A Thrombosis due to vascular prosthetic devices, implants and grafts, initial encounter (principal); I12.9 Hypertensive chronic kidney disease with stage 1 through stage 4 chronic kidney disease, or unspecified chronic kidney disease; E10.22 Type 1 diabetes mellitus with diabetic chronic kidney disease; N18.4 Chronic kidney disease, stage 4 (severe); Z99.2 Dependence on renal dialysis; Z79.4 Long term (current) use of insulin; K21.9 Gastro-esophageal reflux disease without esophagitis; E10.319 Type 1 diabetes mellitus with unspecified diabetic retinopathy without macular edema; F91.8 Other conduct disorders; K59.00 Constipation, unspecified; F90.9 Attention-deficit hyperactivity disorder, unspecified type; F41.9 Anxiety disorder, unspecified; F32.9 Major depressive disorder, single episode, unspecified; F79 Unspecified intellectual disabilities; Z79.82 Long term (current) use of aspirin; Z79.899 Other long term (current) drug therapy
CPT/HCPCS: 01844; 36821; 36415; 80048; 82962; 85027; 93005

== ENCOUNTER → 2018-03-08 08:09 | Outpatient (CLI) | payer MEDICAID, SELFPAY ==
[2018-03-08 09:06] LABS: Anion Gap 12 (5-15); BUN 49 mg/dL (7-18); BUN/Creat Ratio 11.9 RATIO (10-20); Calcium,Total 8.2 mg/dL (8.5-10.1); Chloride 105 mmol/L (98-107); Creatinine, Serum 4.13 mg/dL (0.70-1.30); EST Glomerular Filtration Rate 18 mL/min (>60); Est Glom Filt Rate - Afr Amer 21 mL/min (>60); Glucose 139 mg/dL (74-106); Potassium 5.7 mmol/L (3.5-5.1); Sodium Level 138 mmol/L (136-145)
== END ==
PROVIDERS: Family Provider Internal Medicine; PCP Internal Medicine; Visit Provider Internal Medicine Nephrology
DX: N18.4 Chronic kidney disease, stage 4 (severe) (principal)
CPT/HCPCS: 36415; 80048

== ENCOUNTER 2018-04-18 09:25 | Day surgery (SDC) | payer MEDICAID, SELFPAY ==
[2018-04-18] VITALS (11 sets, daily range): BP systolic 90–135; BP diastolic 55–88; PULSE 75–85; RESP 16–20; TEMP 36.1–36.3; O2SAT 93–97; BMI 38.9
[2018-04-18 09:58] LABS: Hematocrit 41.1 % (40-54); Hemoglobin 13.2 g/dl (13.0-16.5); Mean Corp Hgb Conc 32.1 g/gl (32-36); Mean Corpuscular Hgb 31.4 pg (27.0-32.0); Mean Corpuscular Volume 97.6 fL (80-94); Mean Platelet Vol. 10.8 fl (6.2-12.0); Platelet Count 175 K/mm3 (150-450); RBC Distribution Width SD 46.7 fl (35.1-43.9); Red Blood Count 4.21 M/mm3 (4.6-6.2); White Blood Count 8.2 K/mm3 (4.4-11.0)
[2018-04-18 09:59] LABS: Scan Indicated on CBC? Y/N NO
[2018-04-18 10:05] LABS: Anion Gap 7 (5-15); BUN 67 mg/dL (7-18); BUN/Creat Ratio 16.8 RATIO (10-20); Calcium,Total 8.4 mg/dL (8.5-10.1); Chloride 104 mmol/L (98-107); EST Glomerular Filtration Rate 18 mL/min (>60); Est Glom Filt Rate - Afr Amer 22 mL/min (>60); Glucose 226 mg/dL (74-106); Potassium 5.1 mmol/L (3.5-5.1); Sodium Level 137 mmol/L (136-145)
[2018-04-18] MEDS: Heparin Injection (Vial) 5,000 UNIT/ML VIAL 5000 UNIT (12:01)
[2018-04-18] MEDS: Bupivacaine Mpf 0.5% 30 ML VIAL (12:02)
--- NOTE | 2018-04-18 14:42 | PCM.DC.FIST ---
Discharge Diet: Renal Diet Discharge Activity: May Not Shower Lifting Restrictions: 5 pounds Keep extremity elevated above heart level: - - Keep arm elevated above the heart level for 3 days. Additional Activity Instructions:: Exercise hand vigorously with a stress ball. Call your doctor if your incision/area has: Continuous Slow Oozing, Sudden Increased Bleeding - apply pressure and call your doctor., Increased Pain/ Swelling, Increased Redness, Foul Smelling Discharge Call your doctor if you observe: Fever of 101 or Higher Suture Line Care: Avoid Pulling/Pushing, Avoid Pinching/Bending Cleanse incision/area with: Keep Dressing Clean & Dry Additional Dressing/Incision Instructions:: Please let elevate your right arm for comfort and to limit swelling. Leave the Eitan wrap dressing on for 2 days. You may then remove the Eitan wrap and soft roll dressing. Leave the Steri-Strips on for an additional week. Keep the incision clean and dry Allergies/Adverse Reactions: Allergies No Known Allergies Allergy (Verified 04/09/18 14:17) Medications to take at Discharge Ascorbic Acid [Vitamin C] 1,000 mg PO DAILY 02/21/15 Aspirin [Aspirin, Baby] 81 mg PO DAILY 02/21/15 Fluoxetine [Prozac] 30 mg PO DAILY 02/21/15 Quetiapine Fumarate [Seroquel] 100 mg PO 1700 02/21/15 Quetiapine Fumarate [Seroquel] 200 mg PO BID 02/21/15 Loratadine [Claritin] 10 mg PO DAILY 07/08/15 Melatonin 3 mg PO QHS 12/09/15 Insulin Lispro [Humalog Kwikpen] 4 unit SQ LUNCH 08/29/16 Atorvastatin Calcium 5 mg PO QHS 11/07/16 Pantoprazole Sodium [Protonix] 40 mg PO DAILY 11/07/16 Sennosides [Senna] 8.6 mg PO BID 12/29/16 Metoprolol Tartrate 12.5 mg PO BID 05/20/17 Oxybutynin [Ditropan] 5 mg PO DAILY PRN 05/20/17 Fluticasone Propionate [Flovent Diskus] 2 spray NARES DAILY 11/30/17 Olopatadine HCl [Pazeo] 1 drp EACH EYE DAILY 11/30/17 acetaminophen 325 mg tablet 650 mg PO Q8H PRN tab 12/13/17 albuterol sulfate HFA 90 mcg/actuation aerosol inhaler 2 puff INHALATION Q4H PRN 12/13/17 ketoconazole 2 % shampoo 1 applic TOPICAL Q2W PRN 12/13/17 Insulin Lispro [Humalog] 8 unit SQ BREAKFAST 12/24/17 Insulin Lispro [Humalog] 8 unit SQ DINNER 12/24/17 Cholecalciferol (Vitamin D3) [Vitamin D3] 5,000 unit PO DAILY 01/09/18 Ferrous Sulfate [Iron] 2 tab PO DAILY 01/09/18 Insulin Glargine [Lantus SoloStar Pen] 10 units SC QHS 02/09/18 Insulin Glargine,Hum.rec.anlog [Lantus Solostar] 14 unit SQ DAILY 02/09/18 Polyethylene Glycol 3350 [Miralax] 17 gm PO BID 02/09/18 Hydrocodone Bitart/Apap 5-325 [[place] 5/325] 1 tab PO Q6H PRN PRN 3 Days #5 tab 04/18/18 The following prescriptions were given: Hydrocodone Bitart/Apap 5-325 [[place] 5/325] 1 tab PO Q6H PRN PRN 3 Days #5 tab PRN Reason: Pain Primary Care Physician: Koki Finney MD [Primary Care Provider] - Test Results: Test results from this visit will be discussed in further detail at your follow-up appointment, if applicable. Please Follow Up With: Joao Abreu MD - [phone] When: Call to make an appointment for suture removal and follow up in 7-10 days.
--- NOTE | 2018-04-18 14:45 | DCINST_ITS ---
Discharge Diet: Renal Diet Discharge Activity: May Not Shower Lifting Restrictions: 5 pounds Keep extremity elevated above heart level: - - Keep arm elevated above the heart level for 3 days. Additional Activity Instructions:: Exercise hand vigorously with a stress ball. Call your doctor if your incision/area has: Continuous Slow Oozing, Sudden Increased Bleeding - apply pressure and call your doctor., Increased Pain/ Swelling, Increased Redness, Foul Smelling Discharge Call your doctor if you observe: Fever of 101 or Higher Suture Line Care: Avoid Pulling/Pushing, Avoid Pinching/Bending Cleanse incision/area with: Keep Dressing Clean & Dry Additional Dressing/Incision Instructions:: Please let elevate your right arm for comfort and to limit swelling. Leave the Eitan wrap dressing on for 2 days. You may then remove the Eitan wrap and soft roll dressing. Leave the Steri-Strips on for an additional week. Keep the incision clean and dry Allergies/Adverse Reactions: Allergies No Known Allergies Allergy (Verified 04/09/18 14:17) Medications to take at Discharge Ascorbic Acid [Vitamin C] 1,000 mg PO DAILY 02/21/15 Aspirin [Aspirin, Baby] 81 mg PO DAILY 02/21/15 Fluoxetine [Prozac] 30 mg PO DAILY 02/21/15 Quetiapine Fumarate [Seroquel] 100 mg PO 1700 02/21/15 Quetiapine Fumarate [Seroquel] 200 mg PO BID 02/21/15 Loratadine [Claritin] 10 mg PO DAILY 07/08/15 Melatonin 3 mg PO QHS 12/09/15 Insulin Lispro [Humalog Kwikpen] 4 unit SQ LUNCH 08/29/16 Atorvastatin Calcium 5 mg PO QHS 11/07/16 Pantoprazole Sodium [Protonix] 40 mg PO DAILY 11/07/16 Sennosides [Senna] 8.6 mg PO BID 12/29/16 Metoprolol Tartrate 12.5 mg PO BID 05/20/17 Oxybutynin [Ditropan] 5 mg PO DAILY PRN 05/20/17 Fluticasone Propionate [Flovent Diskus] 2 spray NARES DAILY 11/30/17 Olopatadine HCl [Pazeo] 1 drp EACH EYE DAILY 11/30/17 acetaminophen 325 mg tablet 650 mg PO Q8H PRN tab 12/13/17 albuterol sulfate HFA 90 mcg/actuation aerosol inhaler 2 puff INHALATION Q4H PRN 12/13/17 ketoconazole 2 % shampoo 1 applic TOPICAL Q2W PRN 12/13/17 Insulin Lispro [Humalog] 8 unit SQ BREAKFAST 12/24/17 Insulin Lispro [Humalog] 8 unit SQ DINNER 12/24/17 Cholecalciferol (Vitamin D3) [Vitamin D3] 5,000 unit PO DAILY 01/09/18 Ferrous Sulfate [Iron] 2 tab PO DAILY 01/09/18 Insulin Glargine [Lantus SoloStar Pen] 10 units SC QHS 02/09/18 Insulin Glargine,Hum.rec.anlog [Lantus Solostar] 14 unit SQ DAILY 02/09/18 Polyethylene Glycol 3350 [Miralax] 17 gm PO BID 02/09/18 Hydrocodone Bitart/Apap 5-325 [[place] 5/325] 1 tab PO Q6H PRN PRN 3 Days #5 tab 04/18/18 The following prescriptions were given: Hydrocodone Bitart/Apap 5-325 [[place] 5/325] 1 tab PO Q6H PRN PRN 3 Days #5 tab PRN Reason: Pain Primary Care Physician: Koki Finney MD [Primary Care Provider] - Test Results: Test results from this visit will be discussed in further detail at your follow- up appointment, if applicable. Please Follow Up With: Joao Abreu MD - [phone] When: Call to make an appointment for suture removal and follow up in 7-10 days.
--- NOTE | 2018-04-18 14:45 | PCM.OPRPT ---
Problem List (1) Problem with dialysis access Status: Acute Qualifiers: Encounter type: subsequent encounter Report of Operation Date of Procedure: 04/18/18 Pre-Operative Diagnosis: Problem with dialysis access Post-Operative Diagnosis: Same Surgery/Procedure Performed:: Stage II transposition right forearm cephalic vein to radial artery arteriovenous fistula creation Description of Surgical Findings:: Timeout and informed consent was obtained. A 8-year-old gent was taken the operating room. He was placed on the table. He underwent monitored anesthesia care. At the procedure 23 cc of 0.5% lidocaine and 3 cc of 1% lidocaine mixed 50-50 with 0.5% Marcaine was used as local anesthetic. Local was instilled close to the right wrist at the site of the previous radiocephalic AV fistula. Then tediously a longitudinal incision was made up the right forearm. The vein was tediously dissected free. Side branches were secured with interrupted 4-0 Vicryl ligatures. Hemoclips were used where indicated. The vein was dissected free to the antecubital space. Then the vein was marked. Distally the skin flap was slightly raised to gain access to the radial artery. It was circumferentially dissected free to help elevate the radial artery. Then a subcutaneous tunnel medial to the harvest site was created and a tunnel was placed from the wrist to the antecubital space. The vein was ligated distally with a 0 silk ligature. Due to the inflammatory changes I was not able to dissect that completely to the previous radial artery anastomosis. I then placed the vein through the tunnel using the tunneler. The patient received 10,000 units of heparin. The vein was spatulated. The bulldog clamps were placed on the radial artery and 11 blade was used to enter an arteriotomy which was extended with [place] scissors. A end-to-side venous to arterial anastomosis created with running 7-0 Prolene. At the completion of there is good flow through the fistula and seemingly good positional alignment. Hemostasis obtained with electrocautery. A total of 30 mg of protamine was given his reversal. The wound was closed in layers with multiple interrupted 3-0 Vicryl sutures and then a running septic or 4-0 Monocryl. Steri-Strips Telfa soft roll Eitan wrap applied. Sponge and instrument and needle counts were reported to the surgeon to be correct. Blood loss approximately 300 cc. He tolerated the procedure well and he was taken to the recovery area in satisfactory condition without apparent complication. Specimens none. Drains none. Blood loss approximately 300 cc. Joao Abreu M.D., F.A.C.S. Type of Anesthesia:: Local MAC Anesthesiologist: Veronica Majano
--- NOTE | 2018-04-18 16:23 | SUR.PHASEI ---
SUPRAPUBIC CATHETER FLUSHED WITH 100CC NS.NO CLOTS RETURNED. CLEAR PINK 100CC RETURNED.
== END 2018-04-18 17:25 | disposition home or self-care (01) ==
LOC: SDC 09:27 → AC 15:04
PROVIDERS: Family Provider Internal Medicine; PCP Internal Medicine; Referring Provider Surgery; Visit Provider Surgery
PROC: (CPT 36820; principal; 2018-04-18 11:15)
DX: T82.9XXA Unspecified complication of cardiac and vascular prosthetic device, implant and graft, initial encounter (principal); E10.319 Type 1 diabetes mellitus with unspecified diabetic retinopathy without macular edema; E10.22 Type 1 diabetes mellitus with diabetic chronic kidney disease; D63.1 Anemia in chronic kidney disease; K21.9 Gastro-esophageal reflux disease without esophagitis; F91.9 Conduct disorder, unspecified; F63.81 Intermittent explosive disorder; F32.9 Major depressive disorder, single episode, unspecified; F90.9 Attention-deficit hyperactivity disorder, unspecified type; F41.9 Anxiety disorder, unspecified; Z23 Encounter for immunization; Z99.2 Dependence on renal dialysis; Z79.4 Long term (current) use of insulin; Z79.82 Long term (current) use of aspirin; Z79.899 Other long term (current) drug therapy; R31.0 Gross hematuria; K56.7 Ileus, unspecified; I12.0 Hypertensive chronic kidney disease with stage 5 chronic kidney disease or end stage renal disease; N18.6 End stage renal disease; D62 Acute posthemorrhagic anemia; R55 Syncope and collapse; Z86.718 Personal history of other venous thrombosis and embolism; Z93.59 Other cystostomy status
CPT/HCPCS: 01844; 36820; 36415; 74176; 80048; 80053; 81001; 82962; 83605; 85014; 85018; 85025; 85027; 85610; 85730; 87077; 87086; 87088; 93005; 99285; J7030; 90686; A4216; J2405

== ENCOUNTER 2018-04-20 09:56 | Inpatient (IN) | payer MEDICAID, SELFPAY ==
[2018-04-20] VITALS (11 sets, daily range): BP systolic 103–159; BP diastolic 62–92; PULSE 90–102; RESP 0–18; TEMP 36.3–37; O2SAT 73–100; BMI 40.1; BMI 39.4
--- NOTE | 2018-04-20 10:32 | CT_ITS ---
STUDY: CT ABDOMEN AND PELVIS WITHOUT CONTRAST REASON FOR EXAM: Male, 38 years old. Hematuria RADIATION DOSAGE (If Supplied By Facility): CTDIvol = ( 21.43 ) mGy, DLP = ( 1167.19 ) mGycm TECHNIQUE: Transaxial images were obtained from the dome of the diaphragm to the symphysis pubis without oral contrast, and without intravenous contrast. Sagittal and coronal images were reconstructed. Individualized dose optimization techniques were used for this CT. COMPARISON: 11/30/2017 FINDINGS: There are chronic interstitial fibrotic changes of the lung bases. The visualized portions of the heart are within normal limits. Normal liver. Normal gallbladder and extrahepatic biliary system. Normal spleen. Normal pancreas. Normal bilateral adrenal glands. Stable bilateral nephrocalcinosis and renal atrophy. Normal visualized stomach. Multiple nondistended fluid-filled small bowel loops are noted consistent with ileus. Retained stool noted throughout the colon There is non-visualization of the appendix. Normal abdominal aorta. Normal inferior vena cava. Normal retroperitoneum. There is a suprapubic catheter within the bladder which contains dense debris this likely represents either inflammation or mass lesion. There is an outpouching of the diastasis between the rectus musculature containing bowel loops but there is no evidence of inflammation, obstruction or ileus. Normal osseous structures. CT/Abdomen/Pelvis without Cont IMPRESSION: Bladder contains a suprapubic catheter and also significant heterogeneous debris. Findings suggest inflammation or mass lesion. Stable bilateral nephrocalcinosis and renal atrophy Small bowel ileus Retained stool throughout the colon Degenerative bony changes Electronically Signed: Tyrel Cortés MD at 12:41 EDT , Service support ,
--- NOTE | 2018-04-20 11:01 | ED.VISSUMM ---
- ER Visit Summary Date of Service: 04/20/18 Chief Complaint: Hematuria History of Present Illness: The patient is a [address] Finney, Dr. Patel, and Dr. Gonzales. He reports he has hematuria that began 2 days ago and is worsened. Is now passing clots. He does have a history of a suprapubic catheter. It was most recently changed by Dr. morley on January 17. Patient reports that he has diffuse abdominal pain that is 6 out of 10 severity. He describes it as sharp and aching. He denies any nausea, vomiting, or diarrhea. His last bowel was today. He has had no blood in his stools. He denies any fever or chills. He reports that he has low back pain is 8 out of 10 severity that began today. He denies any trauma. Physical Examination: Vitals: Stable. Afebrile. General: Well-nourished and well-developed. Head: Normocephalic atraumatic. Neck: Supple, no lymphadenopathy. No JVD. Nontender. Cardiovascular: Regular rate and rhythm. No murmurs. Respiratory: No respiratory distress. Clear to auscultation bilaterally. Abdominal: Soft, moderate diffuse tenderness palpation. Abdomen is distended with hypoactive bowel sounds. No guarding, rebound, or peritoneal signs. Back: Nontender. Extremities: Nontender, no edema. Skin: Normal color, no rash. Neurologic: Alert and oriented ?3. Cranial nerves II through XII are intact. Normal strength and sensation. Psych: Normal affect. Test Results: CBC is remarkable for an H&H of 11.1 and 35.1. Hemoglobin on April 18 was 13.2. However, his hemoglobin is range between 9.3-13.2 in 2018. Lymphs at 19 and monocytes of 11. Chem-7 is more for glucose 173, BUN of 81, creatinine 4.40. His creatinine is range between 2.47-4.35 and 2018. LFTs are normal. Coags are normal. UA has 10-25 white blood cells and greater than 100 red blood cells. No bacteria. This was sent for culture. Clinical Impression(s) from Imaging Studies Abdomen/Pelvis CT 04/20/18 10:32 IMPRESSION: Bladder contains a suprapubic catheter and also significant heterogeneous debris. Findings suggest inflammation or mass lesion. Stable bilateral nephrocalcinosis and renal atrophy Small bowel ileus Retained stool throughout the colon Degenerative bony changes Electronically Signed: Tyrel Cortés MD at 12:41 EDT , Service support , Emergency Department Course and Treatment: Patient had an IV placed. He was given morphine and Zofran IV. Patient's urine is grossly bloody and clots are present. It was irrigated, but remains quite dark with clots. His 18 [place]ian suprapubic was changed to a 20 Algerian. Treatment Plan: Patient was discussed with Dr. Patel and will be discussed with the hospitalist. He will be admitted for further evaluation and treatment. Disposition: Admitted in improved condition. Impression: 1. Hematuria. 2. Ileus, small bowel. 3. Chronic renal insufficiency. 4. Anemia. This note was generated with [employer] dictation software. It may contain incorrect words, spelling, and punctuation that were not noted in review of the chart prior to signing ED Disposition - Plan for ED Patient: Chief Complaint: Complaint Referrals: Koki Finney MD [Primary Care Provider] -
--- NOTE | 2018-04-20 11:04 | ED.DCSUM_ITS ---
- ER Visit Summary Date of Service: 04/20/18 Chief Complaint: Hematuria History of Present Illness: The patient is a [address] Finney, Dr. Patel, and Dr. Gonzales. He reports he has hematuria that began 2 days ago and is worsened. Is now passing clots. He does have a history of a suprapubic cath eter. It was most recently changed by Dr. morley on January 17. Patient reports that he has diffuse abdominal pain that is 6 out of 10 severity. He describes it as sharp and aching. He denies any nausea, vomiting, or diarrhea. His last bowel was today. He has had no blood in his stools. He denies any fever or chills. He reports that he has low back pain is 8 out of 10 severity that began today. He denies any trauma. Physical Examination: Vitals: Stable. Afebrile. General: Well-nourished and well-developed. Head: Normocephalic atraumatic. Neck: Supple, no lymphadenopathy. No JVD. Nontender. Cardiovascular: Regular rate and rhythm. No murmurs. Respiratory: No respiratory distress. Clear to auscultation bilaterally. Abdominal: Soft, moderate diffuse tenderness palpation. Abdomen is distended with hypoactive bowel sounds. No guarding, rebound, or peritoneal signs. Back: Nontender. Extremities: Nontender, no edema. Skin: Normal color, no rash. Neurologic: Alert and oriented ?3. Cranial nerves II through XII are intact. Normal strength and sensation. Psych: Normal affect. Test Results: CBC is remarkable for an H&H of 11.1 and 35.1. Hemoglobin on April 18 was 13.2. However, his hemoglobin is range between 9.3-13.2 in 2018. Lymphs at 19 and monocytes of 11. Chem-7 is more for glucose 173, BUN of 81, creatinine 4.40. His creatinine is range between 2.47-4.35 and 2018. LFTs are normal. Coags are normal. UA has 10-25 white blood cells and greater than 100 red blood cells. No bacteria. This was sent for culture. Clinical Impression(s) from Imaging Studies Abdomen/Pelvis CT 04/20/18 10:32 IMPRESSION: Bladder contains a suprapubic catheter and also significant heterogeneous debris. Findings suggest inflammation or mass lesion. Stable bilateral nephrocalcinosis and renal atrophy Small bowel ileus Retained stool throughout the colon Degenerative bony changes Electronically Signed: Tyrel Cortés MD at 12:41 EDT , Service support , Emergency Department Course and Treatment: Patient had an IV placed. He was given morphine and Zofran IV. Patient's urine is grossly bloody and clots are present. It was irrigated, but remains quite dark with clots. His 18 [place] suprapubic was changed to a 20 [place]. Treatment Plan: Patient was discussed with Dr. Patel and will be discussed with the hospitalist. He will be admitted for further evaluation and treatment. Disposition: Admitted in improved condition. Impression: 1. Hematuria. 2. Ileus, small bowel. 3. Chronic renal insufficiency. 4. Anemia. This note was generated with [employer] dictation software. It may contain incorrect words, spelling, and punctuation that were not noted in review of the chart prior to signing ED Disposition - Plan for ED Patient: Chief Complaint: Complaint Referrals: Koki Finney MD [Primary Care Provider] -
[2018-04-20 11:08] LABS: Absolute Lymphocyte Count 1.45 X10^3/ul (0.83-4.51); Absolute Neutrophil Count 5.3 X10^3/uL (2.0-7.7); Basophil# 0.01 X10^3/uL; Basophil% 0.1 % (0-1); Eosinophil# 0.15 X10^3/uL; Eosinophils% 1.9 % (0-5); Hematocrit 35.1 % (40-54); Hemoglobin 11.1 g/dl (13.0-16.5); Lymphocyte # 1.45 X10^3/ul (4.0); Lymphocyte % 18.8 % (19-41); Mean Corp Hgb Conc 31.6 g/gl (32-36); Mean Corpuscular Hgb 30.9 pg (27.0-32.0); Mean Corpuscular Volume 97.8 fL (80-94); Mean Platelet Vol. 10.9 fl (6.2-12.0); Monocyte# 0.83 X10^3/uL; Monocyte% 10.8 % (0-10); Neutrophil # 5.25 X10^3/uL (2.7-7.7); Neutrophil % 68.3 % (47-70); Platelet Count 189 K/mm3 (150-450); RBC Distribution Width CV 12.8 % (11.6-14.6); RBC Distribution Width SD 46.3 fl (35.1-43.9); Red Blood Count 3.59 M/mm3 (4.6-6.2); White Blood Count 7.7 K/mm3 (4.4-11.0)
[2018-04-20 11:15] LABS: POSITIVE COUNT NO; POSITIVE DIFFERENTIAL NO; POSITIVE MORPHOLOGY NO
[2018-04-20 11:26] LABS: Prothrombin Time (Protime)PT. 13.2 SECONDS (11.7-14.9)
[2018-04-20 11:27] LABS: Partial Thromboplast Time 33.9 Seconds (24.1-36.2)
[2018-04-20] MEDS: Ondansetron 4 MG/2 ML Vial IV (11:30)
[2018-04-20] MEDS: Morphine 4 MG/ML Syringe IV (11:30)
[2018-04-20] MEDS: 0.9% Normal Saline 1,000 ML 1000 ML IV (11:30)
[2018-04-20 11:37] LABS: ALB/GLOB Ratio 0.8 RATIO (0.9-2.4); AST(SGOT) 15 U/L (15-37); Alanine Aminotransfer ALT/SGPT 23 U/L (16-61); Albumin, Serum 3.5 g/dL (3.2-5.0); Alkaline Phosphatase 117 U/L (45-117); Anion Gap 8 (5-15); BUN 81 mg/dL (7-18); BUN/Creat Ratio 18.4 RATIO (10-20); Calcium,Total 8.6 mg/dL (8.5-10.1); Chloride 101 mmol/L (98-107); EST Glomerular Filtration Rate 16 mL/min (>60); Est Glom Filt Rate - Afr Amer 20 mL/min (>60); Estimated Creatinine Clearance 19.43 ml/min; Globulin 4.2 g/dL (2.2-4.2); Glucose 173 mg/dL (74-106); Potassium 4.9 mmol/L (3.5-5.1); Protein, Total 7.7 g/dL (6.4-8.2); Sodium Level 138 mmol/L (136-145)
[2018-04-20 11:42] LABS: Lactic Acid 0.9 mmol/L (0.4-2.0)
[2018-04-20 12:44] LABS: Bacteria 0 SEEN /hpf (None Seen); Mucous, Urine 0 SEEN /hpf (<or=2+); Squamous Epithelial Cells - UA 0 SEEN /hpf (0-5)
[2018-04-20 12:46] LABS: Color, Urine Red (Yellow); Glucose, Dipstick Normal (Normal); Ketone-Dipstick 5 mg/dl (Negative); Leukocyte Esterase-Dipstick Negative /ul (Negative); Nitrite-Dipstick Negative (Negative); Occult Blood-Urine 250 /ul (Negative); Protein-Dipstick 500 mg/dl (Negative); Urine Bilirubin Dipstick Negative (Negative); Urine Clarity Turbid (Clear); Urine Urobilinogen Normal (Normal)
[2018-04-20 12:56] LABS: Red Blood Cells-Urine > 100 SEEN /hpf (0-5); White Blood Cells 10-25 SEEN /hpf (0-5)
--- NOTE | 2018-04-20 13:40 | ED.RN ---
ASSISTED DR. LOPEZ TO CHANGE SUPRAPUBIC VILLASENOR. 18 FR SUPRAPUBIC CATHETER REMOVED AFTER TAKING 10 ML FLUID OUT OF BALLOON. 20 FR SUPRAPUBIC VILLASENOR PLACED WITHOUT COMPLICATION BY DR. LOPEZ. PT TOLERATED WELL.
--- NOTE | 2018-04-20 13:45 | CON.PCM_ITS ---
Problem List (1) Hematuria Status: Acute Qualifiers: Hematuria type: gross Qualified Code(s): R31.0 - Gross hematuria Reason for Consult Date of Consultation: 04/20/18 Reason for Consultation: Gross hematuria and suprapubic catheter History of Present Illness: The patient is a 38 year old male with multiple medical problems who is on chronic dialysis and he has a chronic suprapubic catheter on cystoscopy a few months ago was negative for any masses or tumors recently had some work on his AV fistula and then developed gross hematuria after [facility] was done demonstrated blood in the bladder no obvious masses, change catheter to the 20 [place] irrigated all the clots out and now he just has canseco red blood in the urine after irrigating his bladder. He is normal urethral channel scarred down. Past Medical History Past Medical History (Chronic Problems): Chronic Problems (Last Reviewed 04/03/18 @ 14:04 by Kaleigh Yeager) Strabismus (Chronic) Disruptive Behavior Disorder (Chronic) Diabetic retinopathy (Chronic) History of constipation (Chronic) Chronic kidney disease (Chronic) History of Suprapubic Cystostomy (Chronic) History of anxiety disorder (Chronic) Medical History: Medical History (Last Reviewed 04/03/18 @ 14:04 by Kaleigh Yeager) Problem with dialysis access (Acute) T82.898A hx of PICC Line (Acute) Strabismus (Chronic) H50.9 Disruptive Behavior Disorder (Chronic) Diabetic retinopathy (Chronic) E11.319 History of constipation (Chronic) Z87.19 Aspiration into airway (Suspected) T17.908A Wheezing (Acute) R06.2 Chronic kidney disease (Chronic) N18.9 Hyponatremia (Acute) E87.1 Ileus (Acute) K56.7 History of Suprapubic Cystostomy (Chronic) History of anxiety disorder (Chronic) Z86.59 Allergies No Known Allergies Allergy (Verified 04/20/18 10:37) Home Medications: Ambulatory Orders Medication Instructions Recorded Ascorbic Acid [Vitamin C] 1,000 mg PO DAILY 02/21/15 Aspirin [Aspirin, Baby] 81 mg PO DAILY 02/21/15 Fluoxetine [Prozac] 20 mg PO DAILY 02/21/15 Quetiapine Fumarate [Seroquel] 100 mg PO 1700 02/21/15 Quetiapine Fumarate [Seroquel] 200 mg PO BID 02/21/15 Loratadine [Claritin] 10 mg PO DAILY 07/08/15 Melatonin 3 mg PO QHS 12/09/15 Insulin Lispro [Humalog Kwikpen] 0 unit SQ TID 08/29/16 Sennosides [Senna] 8.6 mg PO BID 12/29/16 Fluticasone Propionate [Flovent 2 spray NARES DAILY 11/30/17 Diskus] Insulin Lispro [Humalog] 3 unit SQ BREAKFAST 12/24/17 Cholecalciferol (Vitamin D3) 5,000 unit PO DAILY 01/09/18 [Vitamin D3] Insulin Glargine [Lantus SoloStar 19 units SC QHS 02/09/18 Pen] Insulin Glargine,Hum.rec.anlog 9 unit SQ DAILY 02/09/18 [Lantus Solostar] Polyethylene Glycol 3350 [Miralax] 17 gm PO 4X/DAY 02/09/18 Ammonium Lactate [Amlactin] 1 applic TP BID 04/20/18 Ciprofloxacin [Cipro] 500 mg PO BID 04/20/18 Docusate Sodium [Colace] 100 mg PO BID 04/20/18 Erythromycin Base [Erythromycin] 250 mg PO 4X/DAY 04/20/18 Lactulose 60 ml PO BID 04/20/18 Lansoprazole [Prevacid] 30 mg PO DAILY 04/20/18 Methylphenidate HCl [Concerta] 1 tab PO DAILY 04/20/18 Metoclopramide [Reglan] 10 mg PO TID 04/20/18 Mi Acid Gas 80 mg PO 4X/DAY 04/20/18 Olopatadine HCl [Pataday] 1 drop EACHEYE DAILY 04/20/18 Simvastatin [Zocor] 5 mg PO QHS 04/20/18 Surgical History: Surgical History (Last Reviewed 04/03/18 @ 14:04 by Kaleigh Yeager) History of suprapubic catheter (Acute) Z98.890 Hx of exploratory laparotomy (Acute) Z98.890 History of esophagogastroduodenoscopy (EGD) (Acute) Z98.890 08/21/12 Hx of colonoscopy (Acute) Z98.890 08/21/12 and 12/04/14 (decompression for pseudoobstruction) Hx of arteriovenostomy for renal dialysis (Acute) Z99.2 transposition left upper arm cephalic vein to brachial artery arteriovenous fistula creation- 12/17/15 Right forearm Radial to cephalic AV fistula- 02/16/18 Hx of appendectomy (Acute) Z90.49 2001 Surgical History: appendectomy, - Psychiatric History: - Smoking Status: Never smoker - *Family History Maternal History Items: No pertinent history Paternal History Items: No pertinent history Review of Systems Constitutional: Denies: Chills, Fever, Weight Change HEENT: Denies: Head Aches, Sinus Congestion, Sinus Drainage Cardiovascular: Denies: Chest Pain, Palpitations Respiratory: Denies: Cough, Shortness of breath at rest, Sputum production Gastrointestinal: Denies: Abdominal Pain, Nausea, Vomiting Genitourinary: Denies: Dysuria Musculoskeletal: Denies: Joint Pain, Joint Tenderness Skin: Denies: Rash, Wounds Neurological: Denies: Numbness, Tingling, Focal weakness Psychiatric: Denies: Anxiety, Depression, Homicidal Ideations, Suicidal Ideations Hematologic/ Lymphatic: Denies: Easy Bruising, Easy Bleeding Physical Exam - Physical Exam Vital Signs Temp 97.4 F L 04/20/18 10:14 Pulse 90 04/20/18 10:14 Resp 17 04/20/18 12:11 BP 141/92 H 04/20/18 10:14 Pulse Ox 94 04/20/18 10:14 Intake & Output 04/18/18 04/19/18 04/20/18 23:59 23:59 23:59 Weight: 106 kg General: Alert, Oriented x3 HEENT: Atraumatic Oral: Moist Mucosa Neck: Supple Lungs: Normal air movement Abdomen: Obese Rectal: Exam deferred - Suprapubic catheter changed to 20 [place] Laboratory Tests Past 24 Hrs 04/20/18 04/20/18 04/20/18 10:58 10:58 10:58 WBC 7.7 RBC 3.59 L Hgb 11.1 L Hct 35.1 L MCV 97.8 H MCH 30.9 MCHC 31.6 L RDW 12.8 RDW Differential 46.3 H Plt Count 189 MPV 10.9 Immature Gran % (Auto) 0.100 Neut % (Auto) 68.3 Lymph % (Auto) 18.8 L [place] % (Auto) 10.8 H Eos % (Auto) 1.9 Baso % (Auto) 0.1 Absolute Neuts (auto) 5.3 Absolute Lymphs (auto) 1.45 Total Counted Not Reportable PT INR APTT Sodium 138 Potassium 4.9 Chloride 101 Carbon Dioxide 29.0 Anion Gap 8 BUN 81 H Creatinine 4.40 H Estim Creat Clear Calc 19.43 Est GFR (MDRD) Af Amer 20 L Est GFR (MDRD) Non-Af 16 L BUN/Creatinine Ratio 18.4 Glucose 173 H Lactic Acid 0.9 Calcium 8.6 Total Bilirubin 0.30 AST 15 ALT 23 Alkaline Phosphatase 117 Total Protein 7.7 Albumin 3.5 Globulin 4.2 Albumin/Globulin Ratio 0.8 L Urine Color Urine Clarity Urine pH Ur Specific [place] Urine Protein Urine Glucose (UA) Urine Ketones Urine Occult Blood Urine Nitrite Urine Bilirubin Urine Urobilinogen Ur Leukocyte Esterase Urine RBC Urine WBC Ur Squamous Epith Cells Urine Bacteria Urine Mucus 04/20/18 04/20/18 10:58 12:21 WBC RBC Hgb Hct MCV MCH MCHC RDW RDW Differential Plt Count MPV Immature Gran % (Auto) Neut % (Auto) Lymph % (Auto) [place] % (Auto) Eos % (Auto) Baso % (Auto) Absolute Neuts (auto) Absolute Lymphs (auto) Total Counted PT 13.2 INR 1.0 APTT 33.9 Sodium Potassium Chloride Carbon Dioxide Anion Gap BUN Creatinine Estim Creat Clear Calc Est GFR (MDRD) Af Amer Est GFR (MDRD) Non-Af BUN/Creatinine Ratio Glucose Lactic Acid Calcium Total Bilirubin AST ALT Alkaline Phosphatase Total Protein Albumin Globulin Albumin/Globulin Ratio Urine Color Red Urine Clarity Turbid Urine pH 7.0 Ur Specific [place] 1.010 Urine Protein 500 H Urine Glucose (UA) Normal Urine Ketones 5 H Urine Occult Blood 250 H Urine Nitrite Negative Urine Bilirubin Negative Urine Urobilinogen Normal Ur Leukocyte Esterase Negative Urine RBC > 100 SEEN Urine WBC 10-25 SEEN Ur Squamous Epith Cells 0 SEEN Urine Bacteria 0 SEEN Urine Mucus 0 SEEN Assessment/Plan All Active Problems (Last Reviewed 04/03/18 @ 14:04 by Kaleigh Yeager) Hematuria (Acute) Problem with dialysis access (Acute) History of suprapubic catheter (Acute) Hx of exploratory laparotomy (Acute) hx of PICC Line (Acute) History of esophagogastroduodenoscopy (EGD) (Acute) Hx of colonoscopy (Acute) Hx of arteriovenostomy for renal dialysis (Acute) Hx of appendectomy (Acute) Wheezing (Acute) Hyponatremia (Acute) Ileus (Acute) 38-year-old male with multiple medical problems with suprapubic catheter with chronic recommended to admit the patient for further medical management the nurses want to irrigate the catheter manually with 40 cc of normal saline every hour until we get the urine clear did not use continuous bladder irrigation for the high risk of bladder rupture continue with manual irrigation until the urine clears up. Call with questions
--- NOTE | 2018-04-20 15:05 | ED.RN ---
ENTERED PT'S ROOM TO FIND PT UNRESPONSIVE AND HAVING PERIODS OF APNEA. DOES NOT WAKE TO STERNAL RUB. BRITTANY CEDILLO ASSISTED BREATHING USING BMV. WITHIN APPROXIMATELY 1 MINUTE, PT WAKES UP AND IS A&O X 3.
--- NOTE | 2018-04-20 15:06 | ED.RN ---
UNABLE TO GET BP. DR. CISNEROS AND DR. DYSON AT BEDSIDE.
[2018-04-20 15:15] LABS: Bedside Glucose 136 mg/dL (70-110)
--- NOTE | 2018-04-20 15:17 | EKG12_ITS ---
Test Reason : SYNCOPE Blood Pressure : / mmHG Vent. Rate : 098 BPM Atrial Rate : 098 BPM P-R Int : 130 ms QRS Dur : 082 ms QT Int : 364 ms P-R-T Axes : 036 040 034 degrees QTc Int : 464 ms Normal sinus rhythm Cannot rule out Anterior infarct , age undetermined Abnormal ECG Confirmed by IDA [place], NAHOMI ([id number]), commercial production editor DALILA GABRIEL ([id number]) on 04/23/2018 3:12:53 PM Referred By: BLAYNE Confirmed By:NAHOMI PRIETO MD
--- NOTE | 2018-04-20 15:23 | ED.RN ---
PT STILL A&O X 3, SKIN PINK WARM AND DRY. NO DISTRESS NOTED.
--- NOTE | 2018-04-20 15:40 | HP.PCM_ITS ---
<Stef Graves - Last Filed: 04/20/18 15:30> Problem List (1) Hematuria Status: Acute Qualifiers: Hematuria type: gross Qualified Code(s): R31.0 - Gross hematuria (2) ESRD (end stage renal disease) Status: Chronic (3) Strabismus Status: Chronic (4) Disruptive Behavior Disorder Status: Chronic (5) Diabetic retinopathy Status: Chronic Qualifiers: Proliferative retinopathy type: unspecified Laterality: unspecified laterality History of Present Illness Date of Admission: 04/20/18 Chief Complaint: hematuria The patient is a 38 year old M with a hx of long-term suprapubic catheter, MRDD with behavioral disturbances, ESRD, upper extremity DVT, DMt2 with retinopathy and nephropathy, who presented to the ER from his longterm with dark red hemat uria and clots. He used to be on eliquis for DVT of his left upper extremity which he states occurred in august of this year. He is a dialysis pt of Dr. Gonzales, and is followed for his long time suprapubic cath by Dr. Patel. He feels well and is mildly anemic. He initially reported some abdominal pain and CT abdomen showed bladder inflammation vs mass. Dr. Patel saw him in the ER and recommended manual irrigation of the suprapubic. He had an unresponsive episode in the ER which did last about 1 minute requiring manual bagging for hypoxic before the patient spontaneously came to and the pt now reports no concerns or complaints. Blood sugar was normal. He has no seizure hx. No shaking was reported. CT abdomen showed possible ileus but pt moved his bowel today, now has no abdominal pain or tenderness, and has no nausea. [] Past Medical History Past Medical History (Chronic Problems): Chronic Problems (Last Reviewed 04/03/18 @ 14:04 by Kaleigh Yeager) ESRD (end stage renal disease) (Chronic) Strabismus (Chronic) Disruptive Behavior Disorder (Chronic) Diabetic retinopathy (Chronic) History of constipation (Chronic) Chronic kidney disease (Chronic) History of Suprapubic Cystostomy (Chronic) History of anxiety disorder (Chronic) Medical History: Medical History (Last Reviewed 04/03/18 @ 14:04 by Kaleigh Yeager) Problem with dialysis access (Acute) T82.898A hx of PICC Line (Acute) Strabismus (Chronic) H50.9 Disruptive Behavior Disorder (Chronic) Diabetic retinopathy (Chronic) E11.319 History of constipation (Chronic) Z87.19 Aspiration into airway (Suspected) T17.908A Wheezing (Acute) R06.2 Chronic kidney disease (Chronic) N18.9 Hyponatremia (Acute) E87.1 Ileus (Acute) K56.7 History of Suprapubic Cystostomy (Chronic) History of anxiety disorder (Chronic) Z86.59 Allergies No Known Allergies Allergy (Verified 04/20/18 10:37) Home Medications: Ambulatory Orders Medication Instructions Recorded Ascorbic Acid [Vitamin C] 1,000 mg PO DAILY 02/21/15 Fluoxetine [Prozac] 20 mg PO DAILY 02/21/15 Loratadine [Claritin] 10 mg PO DAILY 07/08/15 Melatonin 3 mg PO QHS 12/09/15 Insulin Lispro [Humalog Kwikpen] 0 unit SQ TID 08/29/16 Sennosides [Senna] 8.6 mg PO BID 12/29/16 Fluticasone Propionate [Flovent 2 spray NARES DAILY 11/30/17 Diskus] Insulin Lispro [Humalog] 8 unit SQ BREAKFAST 12/24/17 Cholecalciferol (Vitamin D3) 5,000 unit PO DAILY 01/09/18 [Vitamin D3] Insulin Glargine [Lantus SoloStar 14 units SC BID 02/09/18 Pen] Insulin Glargine,Hum.rec.anlog 9 unit SQ DAILY 02/09/18 [Lantus Solostar] Polyethylene Glycol 3350 [Miralax] 17 gm PO BID 02/09/18 Ammonium Lactate [Amlactin] 1 applic TP BID 04/20/18 Apixaban [Eliquis] 2.5 mg PO BID 04/20/18 Aspirin E.C. [Ecotrin] 81 mg PO DAILY@0800 04/20/18 Atorvastatin Calcium 5 mg PO QHS 04/20/18 Citric AC/Gluconolact/Mag Carb 30 ml IR TID 04/20/18 [Renacidin Irrigation Solution] Docusate Sodium [Colace] 100 mg PO BID 04/20/18 Erythromycin Base [Erythromycin] 250 mg PO 4X/DAY 04/20/18 Ferrous Sulfate 650 mg PO DAILY@0800 04/20/18 Fluoxetine [Prozac] 10 mg PO DAILY 04/20/18 Ketoconazole 1 applic TP UD 04/20/18 Metoprolol Tartrate 12.5 mg PO BID 04/20/18 Olopatadine HCl [Pataday] 1 drop EACHEYE DAILY 04/20/18 Oxybutynin [Ditropan] 5 mg PO DAILY PRN 04/20/18 Pantoprazole Sodium [Protonix] 40 mg PO DAILY 04/20/18 Quetiapine Fumarate [Seroquel] 200 mg PO BID 04/20/18 Surgical History: Surgical History (Last Reviewed 04/03/18 @ 14:04 by Kaleigh Yeager) History of suprapubic catheter (Acute) Z98.890 Hx of exploratory laparotomy (Acute) Z98.890 History of esophagogastroduodenoscopy (EGD) (Acute) Z98.890 08/21/12 Hx of colonoscopy (Acute) Z98.890 08/21/12 and 12/04/14 (decompression for pseudoobstruction) Hx of arteriovenostomy for renal dialysis (Acute) Z99.2 transposition left upper arm cephalic vein to brachial artery arteriovenous fistula creation- 12/17/15 Right forearm Radial to cephalic AV fistula- 02/16/18 Hx of appendectomy (Acute) Z90.49 2000 Surgical History: appendectomy, - Psychiatric History: - Lives: - - longterm Smoking Status: Never smoker Tobacco Use: Non-smoker Alcohol: None Drugs: None - *Family History Maternal History Items: No pertinent history Paternal History Items: No pertinent history Review of Systems Constitutional: Denies: Chills, Fever, Weight Change HEENT: Denies: Head Aches, Sinus Congestion, Sinus Drainage Cardiovascular: Denies: Chest Pain, Palpitations Respiratory: Denies: Cough, Shortness of breath at rest, Sputum production Gastrointestinal: Denies: Abdominal Pain, Nausea, Vomiting Genitourinary: Reports: Hematuria. Denies: Dysuria Musculoskeletal: Denies: Joint Pain, Joint Tenderness Skin: Denies: Rash, Wounds Neurological: Denies: Numbness, Tingling, Focal weakness Psychiatric: Denies: Anxiety, Depression, Homicidal Ideations, Suicidal Ideations Hematologic/ Lymphatic: Denies: Easy Bruising, Easy Bleeding VTE Information - Inpt Only VTE Present on Admission: No VTE Mechan Device Prophylaxis: SCD's VTE Pharm Prophylaxis ordered?: No Patient Problems: Active and Suspected Problems (Last Reviewed 04/03/18 @ 14:04 by Kaleigh Yeager) Hematuria (Acute) - Physical Exam General: Alert, Oriented x3, Cooperative HEENT: Atraumatic, Normocephalic, - - strabismus Neck: Supple, No JVD, Negative Carotid Bruits Lungs: Clear to auscultation, Normal air movement Cardiovascular: Regular rate, No murmurs Abdomen: Bowel Sounds Present, Soft, Non Tender Extremities: No edema, Capillary Refill Less than 3 Seconds Skin: No rashes, No breakdown Musculoskeletal: No Tenderness to Palpation of Joints or Extremities Neurological: Cranial nerves II-XII grossly intact Psych/Mental Status: Normal Affect, Appropriate Vital Signs Temp Pulse Resp BP Pulse Ox 97.4 F L 101 H 18 103/62 97 04/20/18 10:14 04/20/18 15:22 04/20/18 15:22 04/20/18 15:22 04/20/18 15:22 Oxygen Flow Rate (L/min) 2 Oxygen Delivery Method Nasal Cannula Weight: 233 lb 11.04 oz Body Mass Index (BMI) 40.1 Finger Stick Blood Glucose 136 Laboratory Tests Past 24 Hrs 04/20/18 04/20/18 04/20/18 10:58 10:58 10:58 WBC 7.7 RBC 3.59 L Hgb 11.1 L Hct 35.1 L MCV 97.8 H MCH 30.9 MCHC 31.6 L RDW 12.8 RDW Differential 46.3 H Plt Count 189 MPV 10.9 Immature Gran % (Auto) 0.100 Neut % (Auto) 68.3 Lymph % (Auto) 18.8 L [place] % (Auto) 10.8 H Eos % (Auto) 1.9 Baso % (Auto) 0.1 Absolute Neuts (auto) 5.3 Absolute Lymphs (auto) 1.45 Total Counted Not Reportable PT INR APTT Sodium 138 Potassium 4.9 Chloride 101 Carbon Dioxide 29.0 Anion Gap 8 BUN 81 H Creatinine 4.40 H Estim Creat Clear Calc 19.43 Est GFR (MDRD) Af Amer 20 L Est GFR (MDRD) Non-Af 16 L BUN/Creatinine Ratio 18.4 Glucose 173 H Lactic Acid 0.9 Calcium 8.6 Total Bilirubin 0.30 AST 15 ALT 23 Alkaline Phosphatase 117 Total Protein 7.7 Albumin 3.5 Globulin 4.2 Albumin/Globulin Ratio 0.8 L Urine Color Urine Clarity Urine pH Ur Specific [place] Urine Protein Urine Glucose (UA) Urine Ketones Urine Occult Blood Urine Nitrite Urine Bilirubin Urine Urobilinogen Ur Leukocyte Esterase Urine RBC Urine WBC Ur Squamous Epith Cells Urine Bacteria Urine Mucus 04/20/18 04/20/18 10:58 12:21 WBC RBC Hgb Hct MCV MCH MCHC RDW RDW Differential Plt Count MPV Immature Gran % (Auto) Neut % (Auto) Lymph % (Auto) [place] % (Auto) Eos % (Auto) Baso % (Auto) Absolute Neuts (auto) Absolute Lymphs (auto) Total Counted PT 13.2 INR 1.0 APTT 33.9 Sodium Potassium Chloride Carbon Dioxide Anion Gap BUN Creatinine Estim Creat Clear Calc Est GFR (MDRD) Af Amer Est GFR (MDRD) Non-Af BUN/Creatinine Ratio Glucose Lactic Acid Calcium Total Bilirubin AST ALT Alkaline Phosphatase Total Protein Albumin Globulin Albumin/Globulin Ratio Urine Color Red Urine Clarity Turbid Urine pH 7.0 Ur Specific [place] 1.010 Urine Protein 500 H Urine Glucose (UA) Normal Urine Ketones 5 H Urine Occult Blood 250 H Urine Nitrite Negative Urine Bilirubin Negative Urine Urobilinogen Normal Ur Leukocyte Esterase Negative Urine RBC > 100 SEEN Urine WBC 10-25 SEEN Ur Squamous Epith Cells 0 SEEN Urine Bacteria 0 SEEN Urine Mucus 0 SEEN POC Glucose 04/20/18 15:09 POC Glucose 136 H Assessment/Plan All Active Problems (Last Reviewed 04/03/18 @ 14:04 by Kaleigh Yeager) Hematuria (Acute) Problem with dialysis access (Acute) History of suprapubic catheter (Acute) Hx of exploratory laparotomy (Acute) hx of PICC Line (Acute) History of esophagogastroduodenoscopy (EGD) (Acute) Hx of colonoscopy (Acute) Hx of arteriovenostomy for renal dialysis (Acute) Hx of appendectomy (Acute) Wheezing (Acute) Hyponatremia (Acute) Ileus (Acute) 1. Hematuria - with mild anemia - unclear etiology. Pt no longer on eliquis. Continue irrigation as directed by Dr. Patel. No further blood thinners. 2. Unresponsive episode - unclear etiology. Possibly vagal 2/2 irrigation. 4. ESRD - C/s Dr. Gonzales. 5. DM - continue insulin regimen and titrate to response. 6. MRDD w/ hx behavioral disturbance and narcissitic personality 7. HTN - stable DVT ppx: SCDs DC planning: Back to longterm when stable. This patient was seen by Stef Graves PA-C under the supervision of Dr. Barton. <Mayco Barton F - Last Filed: 04/20/18 16:08> History of Present Illness The patient is a 38 year old M [] Past Medical History Medical History: Medical History (Last Reviewed 04/03/18 @ 14:04 by Kaleigh Yeager) Problem with dialysis access (Acute) T82.898A hx of PICC Line (Acute) Strabismus (Chronic) H50.9 Disruptive Behavior Disorder (Chronic) Diabetic retinopathy (Chronic) E11.319 History of constipation (Chronic) Z87.19 Aspiration into airway (Suspected) T17.908A Wheezing (Acute) R06.2 Chronic kidney disease (Chronic) N18.9 Hyponatremia (Acute) E87.1 Ileus (Acute) K56.7 History of Suprapubic Cystostomy (Chronic) History of anxiety disorder (Chronic) Z86.59 Allergies No Known Allergies Allergy (Verified 04/20/18 10:37) Surgical History: Surgical History (Last Reviewed 04/03/18 @ 14:04 by Kaleigh Yeager) History of suprapubic catheter (Acute) Z98.890 Hx of exploratory laparotomy (Acute) Z98.890 History of esophagogastroduodenoscopy (EGD) (Acute) Z98.890 08/21/12 Hx of colonoscopy (Acute) Z98.890 08/21/12 and 12/04/14 (decompression for pseudoobstruction) Hx of arteriovenostomy for renal dialysis (Acute) Z99.2 transposition left upper arm cephalic vein to brachial artery arteriovenous fistula creation- 12/17/15 Right forearm Radial to cephalic AV fistula- 02/16/18 Hx of appendectomy (Acute) Z90.49 2000 - Physical Exam Vital Signs Temp Pulse Resp BP Pulse Ox 97.4 F L 92 14 121/67 H 100 04/20/18 10:14 04/20/18 15:35 04/20/18 15:35 04/20/18 15:35 04/20/18 15:35 Oxygen Flow Rate (L/min) 2 Oxygen Delivery Method Nasal Cannula Weight: 233 lb 11.04 oz Body Mass Index (BMI) 40.1 Finger Stick Blood Glucose 136 Laboratory Tests Past 24 Hrs 04/20/18 04/20/18 04/20/18 10:58 10:58 10:58 WBC 7.7 RBC 3.59 L Hgb 11.1 L Hct 35.1 L MCV 97.8 H MCH 30.9 MCHC 31.6 L RDW 12.8 RDW Differential 46.3 H Plt Count 189 MPV 10.9 Immature Gran % (Auto) 0.100 Neut % (Auto) 68.3 Lymph % (Auto) 18.8 L [place] % (Auto) 10.8 H Eos % (Auto) 1.9 Baso % (Auto) 0.1 Absolute Neuts (auto) 5.3 Absolute Lymphs (auto) 1.45 Total Counted Not Reportable PT INR APTT Sodium 138 Potassium 4.9 Chloride 101 Carbon Dioxide 29.0 Anion Gap 8 BUN 81 H Creatinine 4.40 H Estim Creat Clear Calc 19.43 Est GFR (MDRD) Af Amer 20 L Est GFR (MDRD) Non-Af 16 L BUN/Creatinine Ratio 18.4 Glucose 173 H Lactic Acid 0.9 Calcium 8.6 Total Bilirubin 0.30 AST 15 ALT 23 Alkaline Phosphatase 117 Total Protein 7.7 Albumin 3.5 Globulin 4.2 Albumin/Globulin Ratio 0.8 L Urine Color Urine Clarity Urine pH Ur Specific [place] Urine Protein Urine Glucose (UA) Urine Ketones Urine Occult Blood Urine Nitrite Urine Bilirubin Urine Urobilinogen Ur Leukocyte Esterase Urine RBC Urine WBC Ur Squamous Epith Cells Urine Bacteria Urine Mucus 04/20/18 04/20/18 04/20/18 10:58 12:21 15:35 WBC RBC Hgb 10.0 L Hct 31.0 L MCV MCH MCHC RDW RDW Differential Plt Count MPV Immature Gran % (Auto) Neut % (Auto) Lymph % (Auto) [place] % (Auto) Eos % (Auto) Baso % (Auto) Absolute Neuts (auto) Absolute Lymphs (auto) Total Counted PT 13.2 INR 1.0 APTT 33.9 Sodium Potassium Chloride Carbon Dioxide Anion Gap BUN Creatinine Estim Creat Clear Calc Est GFR (MDRD) Af Amer Est GFR (MDRD) Non-Af BUN/Creatinine Ratio Glucose Lactic Acid Calcium Total Bilirubin AST ALT Alkaline Phosphatase Total Protein Albumin Globulin Albumin/Globulin Ratio Urine Color Red Urine Clarity Turbid Urine pH 7.0 Ur Specific [place] 1.010 Urine Protein 500 H Urine Glucose (UA) Normal Urine Ketones 5 H Urine Occult Blood 250 H Urine Nitrite Negative Urine Bilirubin Negative Urine Urobilinogen Normal Ur Leukocyte Esterase Negative Urine RBC > 100 SEEN Urine WBC 10-25 SEEN Ur Squamous Epith Cells 0 SEEN Urine Bacteria 0 SEEN Urine Mucus 0 SEEN POC Glucose 04/20/18 15:09 POC Glucose 136 H Code Visit Addendum: Dr. Barton I personally examined the patient and reviewed the chart. I agree with the above. 38-year-old male medical history including MRDD, disruptive behavior disorder, end-stage renal disease on dialysis, diabetic retinopathy, and a blind urethra necessitating a suprapubic catheter. He has a suprapubic catheter and for the last 2 days he has been having blood and blood clots coming out of the catheter. Dr. Patel was called by the ER who was able to swap out catheters and recommends undergoing every hour irrigation by the nursing staff as he is afraid of damaging the bladder with continuous irrigation. In the ER he did have an episode of unresponsiveness however vital signs during the event appeared to be normal and he recovered in less than a minute and was back to normal. Unsure if this is of concern or if this was part of a behavioral disturbance either way we will continue to monitor closely. A CT scan was obtained in the ER which demonstrated ileus and what appeared to be blood clots in the bladder however he did manage to have a bowel movement today and denies any abdominal pain. He has had episodes of hematuria in the past and previously had been seen at [facility] for this issue. He is no longer on Eliquis for the DVT that occurred in August, he had an fistula placed in his right arm, because his left arm fistula had clotted off. We will consult nephrology for dialysis. OBSV E&M: [id number] Initial observation care L3
--- NOTE | 2018-04-20 16:15 | NURSING ---
Called ER to question if pt should be on MS due to apneic episode- notified that pt is ordered to be on MS and is on his way.
--- NOTE | 2018-04-20 19:05 | NURSING ---
LATE ENTRY - 1700 - PT C/O PENIS/BLADDER PAIN - SUPRAPUBIC IRRIGATED W/40ML NS ORDERED. DARK RED RETURN WITH A FEW CLOTS. PT TOLERATED WELL.
--- NOTE | 2018-04-20 19:06 | NURSING ---
LATE ENTRY - 1800 SUPRAPUBIC IRRIGATED WITH 40ML NS ORDERED - DARK RED RETURN, MULTIPLE CLOTS. PT TOLERATED WELL.
--- NOTE | 2018-04-20 19:07 | NURSING ---
SUPRAPUBIC CATH IRRIGATED WITH 40ML NS ORDERED. DARK RED RETURN. NO CLOTS NOTED WITH THIS IRRIGATION. PT TOLERATED WELL.
[2018-04-20] MEDS: QUEtiapine 100 MG Tablet 200 MG PO (20:51)
[2018-04-20] MEDS: Metoprolol Tartrate 25 MG Tablet 12.5 MG PO (21:06)
[2018-04-20] MEDS: Atorvastatin Calcium 10 MG Tablet 5 MG PO (21:06)
[2018-04-20] MEDS: Senna Tablet 1 TABLET PO (21:08)
[2018-04-20] MEDS: MELATONIN 3 MG TABLET PO (21:09)
[2018-04-20 22:05] LABS: Bedside Glucose 410 mg/dL (70-110)
[2018-04-21] VITALS (8 sets, daily range): BP systolic 103–116; BP diastolic 53–65; PULSE 90–103; RESP 18–20; TEMP 36.9–37.3; O2SAT 92–98
[2018-04-21] MEDS: FLUoxetine 10 MG Capsule 30 MG PO (08:09)
[2018-04-21] MEDS: Polyethylene Glycol 3350 17 GM PACKET PO ×2 (08:09→16:27)
[2018-04-21] MEDS: Metoprolol Tartrate 25 MG Tablet 12.5 MG PO ×2 (08:09→22:16)
[2018-04-21] MEDS: Pantoprazole Sodium 40 MG Tablet PO (08:09)
[2018-04-21] MEDS: Aspirin E.C. 81 MG Tablet PO (08:09)
[2018-04-21] MEDS: Senna Tablet 1 TABLET PO ×2 (08:10→22:16)
[2018-04-21] MEDS: Loratadine 10 MG Tablet PO (08:11)
[2018-04-21] MEDS: Ascorbic Acid 500 MG Tablet 1000 MG PO (08:12)
[2018-04-21] MEDS: QUEtiapine 100 MG Tablet 200 MG PO ×2 (08:12→20:35)
[2018-04-21] MEDS: Ferrous Sulfate 325 MG Tablet 650 MG PO (08:13)
[2018-04-21] MEDS: Fluticasone 0.05% 1 SPRAY NASAL.SRY 2 SPRAY NASAL (08:13)
[2018-04-21 08:18] LABS: Absolute Lymphocyte Count 1.46 X10^3/ul (0.83-4.51); Absolute Neutrophil Count 3.1 X10^3/uL (2.0-7.7); Basophil# 0.01 X10^3/uL; Basophil% 0.2 % (0-1); Eosinophil# 0.13 X10^3/uL; Eosinophils% 2.5 % (0-5); Hematocrit 26.6 % (40-54); Hemoglobin 8.5 g/dl (13.0-16.5); Lymphocyte # 1.46 X10^3/ul (4.0); Lymphocyte % 27.7 % (19-41); Mean Corpuscular Hgb 31.3 pg (27.0-32.0); Mean Corpuscular Volume 97.8 fL (80-94); Mean Platelet Vol. 10.7 fl (6.2-12.0); Monocyte% 11.4 % (0-10); Neutrophil # 3.08 X10^3/uL (2.7-7.7); Neutrophil % 58.2 % (47-70); Platelet Count 165 K/mm3 (150-450); RBC Distribution Width CV 12.9 % (11.6-14.6); RBC Distribution Width SD 45.9 fl (35.1-43.9); Red Blood Count 2.72 M/mm3 (4.6-6.2); White Blood Count 5.3 K/mm3 (4.4-11.0)
[2018-04-21 08:19] LABS: POSITIVE COUNT NO; POSITIVE DIFFERENTIAL NO; POSITIVE MORPHOLOGY NO
[2018-04-21] MEDS: Insulin Lispro 100 UNIT/ML INSULN.PEN 8 UNIT SC ×2 (08:24→16:27)
[2018-04-21 08:30] LABS: Bedside Glucose 218 mg/dL (70-110)
--- NOTE | 2018-04-21 08:30 | PCM.PN.HOSP ---
Patient Problems: Active and Suspected Problems (Last Reviewed 04/03/18 @ 14:04 by Kaleigh Yeager) Hematuria (Acute) Acute blood loss anemia (Acute) Subjective: still with hematuria. feels well. Vitals/I&O's: Vital Signs Temp Pulse Resp BP Pulse Ox 37.2 C 96 20 H 108/61 94 04/21/18 08:05 04/21/18 08:09 04/21/18 08:05 04/21/18 08:05 04/21/18 08:05 Oxygen Flow Rate (L/min) 1 Oxygen Delivery Method Room Air Weight: 104.054 kg Body Mass Index (BMI) 39.4 Finger Stick Blood Glucose 136 Intake and Output for Last 24 Hours 04/19/18 04/20/18 04/21/18 23:59 23:59 23:59 Intake Total 480 / 480 900 / 900 Output Total 1930 / 1930 5 / 2124 Balance -1450 / -1450 -1225 / -1225 General: Alert, No apparent distress HEENT: Atraumatic, Normocephalic Oral: Moist Mucosa, No Gingival or Mucosal Lesions/ Ulcerations Neck: No Nodes, Thyroid Normal Size and Texture Lungs: Clear to auscultation, Normal air movement, No rhonchi, No wheeze Cardiovascular: Regular rate, Regular Rhythm, Normal S1, Normal S2, No murmurs Abdomen: Bowel Sounds Present, Soft, Non Tender, Non-Distended, No Hepato-splenomegaly, Obese, - - dooley with red urine with some small blood clots. Extremities: No edema, No Calf Tenderness Skin: No rashes, No breakdown Psych/Mental Status: Normal Affect, Appropriate Laboratory Results 04/20/18 10:58: WBC 7.7, RBC 3.59 L, Hgb 11.1 L, Hct 35.1 L, MCV 97.8 H, MCH 30.9, MCHC 31.6 L, RDW 12.8, RDW Differential 46.3 H, Plt Count 189, MPV 10.9, Immature Gran % (Auto) 0.100, Neut % (Auto) 68.3, Lymph % (Auto) 18.8 L, [place] % (Auto) 10.8 H, Eos % (Auto) 1.9, Baso % (Auto) 0.1, Absolute Neuts (auto) 5.3, Absolute Lymphs (auto) 1.45, Total Counted Not Reportable 04/20/18 10:58: Sodium 138, Potassium 4.9, Chloride 101, Carbon Dioxide 29.0, Anion Gap 8, BUN 81 H, Creatinine 4.40 H, Estim Creat Clear Calc 19.43, Est GFR (MDRD) Af Amer 20 L, Est GFR (MDRD) Non-Af 16 L, BUN/Creatinine Ratio 18.4, Glucose 173 H, Calcium 8.6, Total Bilirubin 0.30, AST 15, ALT 23, Alkaline Phosphatase 117, Total Protein 7.7, Albumin 3.5, Globulin 4.2, Albumin/Globulin Ratio 0.8 L 04/20/18 10:58: Lactic Acid 0.9 04/20/18 10:58: PT 13.2, INR 1.0, APTT 33.9 04/20/18 12:21: Urine Color Red, Urine Clarity Turbid, Urine pH 7.0, Ur Specific [place] 1.010, Urine Protein 500 H, Urine Glucose (UA) Normal, Urine Ketones 5 H, Urine Occult Blood 250 H, Urine Nitrite Negative, Urine Bilirubin Negative, Urine Urobilinogen Normal, Ur Leukocyte Esterase Negative, Urine RBC > 100 SEEN, Urine WBC 10-25 SEEN, Ur Squamous Epith Cells 0 SEEN, Urine Bacteria 0 SEEN, Urine Mucus 0 SEEN 04/20/18 15:09: POC Glucose 136 H 04/20/18 15:35: Hgb 10.0 L, Hct 31.0 L 04/20/18 21:03: POC Glucose 410 H 04/21/18 07:54: WBC 5.3, RBC 2.72 L, Hgb 8.5 L, Hct 26.6 L, MCV 97.8 H, MCH 31.3, MCHC 32.0, RDW 12.9, RDW Differential 45.9 H, Plt Count 165, MPV 10.7, Immature Gran % (Auto) 0.000, Neut % (Auto) 58.2, Lymph % (Auto) 27.7, [place] % (Auto) 11.4 H, Eos % (Auto) 2.5, Baso % (Auto) 0.2, Absolute Neuts (auto) 3.1, Absolute Lymphs (auto) 1.46, Total Counted Not Reportable 04/21/18 07:54: Sodium Pending, Potassium Pending, Chloride Pending, Carbon Dioxide Pending, Anion Gap Pending, BUN Pending, Creatinine Pending, Est GFR (MDRD) Af Amer Pending, Est GFR (MDRD) Non-Af Pending, BUN/Creatinine Ratio Pending, Glucose Pending, Calcium Pending Current Medications Albuterol Sulfate (Ventolin Aerosols) 2.5 mg INHALATION Q4H PRN PRN Reason: SHORTNESS OF BREATH Ascorbic Acid (Vitamin C) 1,000 mg PO DAILY [facility] Last Admin: 04/21/18 08:12 Dose: 1,000 mg Aspirin (Ecotrin) 81 mg PO DAILY@0800 [facility] Last Admin: 04/21/18 08:09 Dose: 81 mg Atorvastatin Calcium (Lipitor) 5 mg PO QHS [facility] Last Admin: 04/20/18 21:06 Dose: 5 mg Cholecalciferol (Vitamin D) 5,000 unit PO DAILY [facility] Last Admin: 04/21/18 08:11 Dose: 5,000 unit Emollient Ointment (Eucerin Intensive Repair) 1 applic TOPICAL BID [facility] Last Admin: 04/21/18 08:17 Dose: 1 applicatio Ferrous Sulfate (Ferrous Sulfate) 650 mg PO DAILY@0800 [facility] Last Admin: 04/21/18 08:13 Dose: 650 mg Fluoxetine HCl (Prozac) 30 mg PO DAILY [facility] Last Admin: 04/21/18 08:09 Dose: 30 mg Fluticasone Propionate (Flonase Nasal [place]) 2 spray NASAL DAILY [facility] Last Admin: 04/21/18 08:13 Dose: 2 spray Influenza Virus Vaccine Quadrival (Fluarix/Fluzone) 0.5 ml IM .ONCE ONE Stop: 04/21/18 10:01 Insulin Glargine (Lantus (Bkc)) 14 units SC BID [facility] Last Admin: 04/21/18 08:14 Dose: 14 u Insulin Human Lispro (Humalog Kwikpen (Bkc)) 8 unit SC 0800,1700 [facility] Last Admin: 04/21/18 08:24 Dose: 8 u Insulin Human Lispro (Humalog Kwikpen (Bkc)) 4 unit SC 1100 [facility] Loratadine (Claritin) 10 mg PO DAILY [facility] Last Admin: 04/21/18 08:11 Dose: 10 mg Magnesium Hydroxide (Milk Of Magnesia) 30 ml PO DAILY PRN PRN PRN Reason: Constipation Melatonin (Melatonin) 3 mg PO QHS [facility] Last Admin: 04/20/18 21:09 Dose: 3 mg Metoprolol Tartrate (Lopressor (Beta August)) 12.5 mg PO BID [facility] Last Admin: 04/21/18 08:09 Dose: 12.5 mg Non-Formulary Medication (Citric Ac/Gluconolact/Mag Carb [Renacidin Irrigation Solution]) 30 ml IR 0800,1600,2000 [facility] Non-Formulary Medication (Olopatadine Hcl [Pataday]) 1 drop EACHEYE DAILY [facility] Oxybutynin Chloride (Ditropan) 5 mg PO DAILY PRN PRN Reason: BLADDER SPASMS Pantoprazole Sodium (Protonix) 40 mg PO DAILY [facility] Last Admin: 04/21/18 08:09 Dose: 40 mg Polyethylene Glycol (Miralax) 17 gm PO QHS PRN PRN Reason: if pt does not have large BM Polyethylene Glycol (Miralax) 17 gm PO 0800,1600 [facility] Last Admin: 04/21/18 08:09 Dose: 17 gm Quetiapine Fumarate (Seroquel) 100 mg PO 1700 [facility] Quetiapine Fumarate (Seroquel) 200 mg PO 0800,2000 [facility] Last Admin: 04/21/18 08:12 Dose: 200 mg Senna (Senokot) 1 tablet PO BID [facility] Last Admin: 04/21/18 08:10 Dose: 1 tablet Sodium Chloride () 5 - 30 ml IV UD PRN PRN Reason: SALINE FLUSH Medical Necessity - Tobacco Use Smoking Status: Never smoker Tobacco Use: Non-smoker Assessment/Plan All Active Problems (Last Reviewed 04/03/18 @ 14:04 by Kaleigh Yeager) Hematuria (Acute) Acute blood loss anemia (Acute) Wheezing (Resolved) Hyponatremia (Resolved) Ileus (Resolved) 1. hematuria ongoing patient with intermittent flushes CT concerning for bladder inflammation or lesion (lesion may be clot debris) seen and do not recommend continuous flushing at this time. Catheter changed 2. Acute blood loss anemia 2/2 above Hg 13.2 on 04/18, now 8.5 no transfusions at this time continue to monitor H/H 3. Ileus asymptomatic seen on CT on regular diet 4. ESRD on HD nephrology on consult 5. Syncope suspect vaso-vagal 6. DVT proph: SCDs 7. Disposition: back to group when when H/H stable and hematuria resolved. Code Visit Inpatient E&M: 32190 Subs Hosp L2
[2018-04-21 08:44] LABS: Anion Gap 8 (5-15); BUN 78 mg/dL (7-18); Calcium,Total 8.1 mg/dL (8.5-10.1); Chloride 105 mmol/L (98-107); Creatinine, Serum 4.34 mg/dL (0.70-1.30); EST Glomerular Filtration Rate 17 mL/min (>60); Est Glom Filt Rate - Afr Amer 20 mL/min (>60); Glucose 229 mg/dL (74-106); Sodium Level 138 mmol/L (136-145)
--- NOTE | 2018-04-21 08:44 | PN_ITS ---
Patient Problems: Active and Suspected Problems (Last Reviewed 04/03/18 @ 14:04 by Kaleigh Yeager) Hematuria (Acute) Acute blood loss anemia (Acute) Subjective: still with hematuria. feels well. Vitals/I&O's: Vital Signs Temp Pulse Resp BP Pulse Ox 37.2 C 96 20 H 108/61 94 04/21/18 08:05 04/21/18 08:09 04/21/18 08:05 04/21/18 08:05 04/21/18 08:05 Oxygen Flow Rate (L/min) 1 Oxygen Delivery Method Room Air Weight: 104.054 kg Body Mass Index (BMI) 39.4 Finger Stick Blood Glucose 136 Intake and Output for Last 24 Hours 04/19/18 04/20/18 04/21/18 23:59 23:59 23:59 Intake Total 480 / 480 900 / 900 Output Total 1930 / 1930 5 / 2124 Balance -1450 / -1450 -1225 / -1225 General: Alert, No apparent distress HEENT: Atraumatic, Normocephalic Oral: Moist Mucosa, No Gingival or Mucosal Lesions/ Ulcerations Neck: No Nodes, Thyroid Normal Size and Texture Lungs: Clear to auscultation, Normal air movement, No rhonchi, No wheeze Cardiovascular: Regular rate, Regular Rhythm, Normal S1, Normal S2, No murmurs Abdomen: Bowel Sounds Present, Soft, Non Tender, Non-Distended, No Hepato- splenomegaly, Obese, - - dooley with red urine with some small blood clots. Extremities: No edema, No Calf Tenderness Skin: No rashes, No breakdown Psych/Mental Status: Normal Affect, Appropriate Laboratory Results 04/20/18 10:58: WBC 7.7, RBC 3.59 L, Hgb 11.1 L, Hct 35.1 L, MCV 97.8 H, MCH 30.9, MCHC 31.6 L, RDW 12.8, RDW Differential 46.3 H, Plt Count 189, MPV 10.9, Immature Gran % (Auto) 0.100, Neut % (Auto) 68.3, Lymph % (Auto) 18.8 L, [place] % (Auto) 10.8 H, Eos % (Auto) 1.9, Baso % (Auto) 0.1, Absolute Neuts (auto) 5.3, Absolute Lymphs (auto) 1.45, Total Counted Not Reportable 04/20/18 10:58: Sodium 138, Potassium 4.9, Chloride 101, Carbon Dioxide 29.0, Anion Gap 8, BUN 81 H, Creatinine 4.40 H, Estim Creat Clear Calc 19.43, Est GFR (MDRD) Af Amer 20 L, Est GFR (MDRD) Non-Af 16 L, BUN/Creatinine Ratio 18.4, Glucose 173 H, Calcium 8.6, Total Bilirubin 0.30, AST 15, ALT 23, Alkaline P hosphatase 117, Total Protein 7.7, Albumin 3.5, Globulin 4.2, Albumin/Globulin Ratio 0.8 L 04/20/18 10:58: Lactic Acid 0.9 04/20/18 10:58: PT 13.2, INR 1.0, APTT 33.9 04/20/18 12:21: Urine Color Red, Urine Clarity Turbid, Urine pH 7.0, Ur Specific [place] 1.010, Urine Protein 500 H, Urine Glucose (UA) Normal, Urine Ketones 5 H , Urine Occult Blood 250 H, Urine Nitrite Negative, Urine Bilirubin Negative, Urine Urobilinogen Normal, Ur Leukocyte Esterase Negative, Urine RBC > 100 SEEN, Urine WBC 10-25 SEEN, Ur Squamous Epith Cells 0 SEEN, Urine Bacteria 0 SEEN, Urine Mucus 0 SEEN 04/20/18 15:09: POC Glucose 136 H 04/20/18 15:35: Hgb 10.0 L, Hct 31.0 L 04/20/18 21:03: POC Glucose 410 H 04/21/18 07:54: WBC 5.3, RBC 2.72 L, Hgb 8.5 L, Hct 26.6 L, MCV 97.8 H, MCH 31.3, MCHC 32.0, RDW 12.9, RDW Differential 45.9 H, Plt Count 165, MPV 10.7, Immature Gran % (Auto) 0.000, Neut % (Auto) 58.2, Lymph % (Auto) 27.7, [place] % (Auto) 11.4 H, Eos % (Auto) 2.5, Baso % (Auto) 0.2, Absolute Neuts (auto) 3.1, Absolute Lymphs (auto) 1.46, Total Counted Not Reportable 04/21/18 07:54: Sodium Pending, Potassium Pending, Chloride Pending, Carbon Dioxide Pending, Anion Gap Pending, BUN Pending, Creatinine Pending, Est GFR (MDRD) Af Amer Pending, Est GFR (MDRD) Non-Af Pending, BUN/Creatinine Ratio Pending, Glucose Pending, Calcium Pending Current Medications Albuterol Sulfate (Ventolin Aerosols) 2.5 mg INHALATION Q4H PRN PRN Reason: SHORTNESS OF BREATH Ascorbic Acid (Vitamin C) 1,000 mg PO DAILY [facility] Last Admin: 04/21/18 08:12 Dose: 1,000 mg Aspirin (Ecotrin) 81 mg PO DAILY@0800 [facility] Last Admin: 04/21/18 08:09 Dose: 81 mg Atorvastatin Calcium (Lipitor) 5 mg PO QHS [facility] Last Admin: 04/20/18 21:06 Dose: 5 mg Cholecalciferol (Vitamin D) 5,000 unit PO DAILY [facility] Last Admin: 04/21/18 08:11 Dose: 5,000 unit Emollient Ointment (Eucerin Intensive Repair) 1 applic TOPICAL BID [facility] Last Admin: 04/21/18 08:17 Dose: 1 applicatio Ferrous Sulfate (Ferrous Sulfate) 650 mg PO DAILY@0800 [facility] Last Admin: 04/21/18 08:13 Dose: 650 mg Fluoxetine HCl (Prozac) 30 mg PO DAILY [facility] Last Admin: 04/21/18 08:09 Dose: 30 mg Fluticasone Propionate (Flonase Nasal [place]) 2 spray NASAL DAILY [facility] Last Admin: 04/21/18 08:13 Dose: 2 spray Influenza Virus Vaccine Quadrival (Fluarix/Fluzone) 0.5 ml IM .ONCE ONE Stop: 04/21/18 10:01 Insulin Glargine (Lantus (Bkc)) 14 units SC BID [facility] Last Admin: 04/21/18 08:14 Dose: 14 u Insulin Human Lispro (Humalog Kwikpen (Bkc)) 8 unit SC 0800,1700 [facility] Last Admin: 04/21/18 08:24 Dose: 8 u Insulin Human Lispro (Humalog Kwikpen (Bkc)) 4 unit SC 1100 [facility] Loratadine (Claritin) 10 mg PO DAILY [facility] Last Admin: 04/21/18 08:11 Dose: 10 mg Magnesium Hydroxide (Milk Of Magnesia) 30 ml PO DAILY PRN PRN PRN Reason: Constipation Melatonin (Melatonin) 3 mg PO QHS [facility] Last Admin: 04/20/18 21:09 Dose: 3 mg Metoprolol Tartrate (Lopressor (Beta [place])) 12.5 mg PO BID [facility] Last Admin: 04/21/18 08:09 Dose: 12.5 mg Non-Formulary Medication (Citric Ac/Gluconolact/Mag Carb [Renacidin Irrigation Solution]) 30 ml IR 0800,1600,2000 [facility] Non-Formulary Medication (Olopatadine Hcl [Pataday]) 1 drop EACHEYE DAILY [facility] Oxybutynin Chloride (Ditropan) 5 mg PO DAILY PRN PRN Reason: BLADDER SPASMS Pantoprazole Sodium (Protonix) 40 mg PO DAILY [facility] Last Admin: 04/21/18 08:09 Dose: 40 mg Polyethylene Glycol (Miralax) 17 gm PO QHS PRN PRN Reason: if pt does not have large BM Polyethylene Glycol (Miralax) 17 gm PO 0800,1600 [facility] Last Admin: 04/21/18 08:09 Dose: 17 gm Quetiapine Fumarate (Seroquel) 100 mg PO 1700 [facility] Quetiapine Fumarate (Seroquel) 200 mg PO 0800,2000 [facility] Last Admin: 04/21/18 08:12 Dose: 200 mg Senna (Senokot) 1 tablet PO BID [facility] Last Admin: 04/21/18 08:10 Dose: 1 tablet Sodium Chloride () 5 - 30 ml IV UD PRN PRN Reason: SALINE FLUSH Medical Necessity - Tobacco Use Smoking Status: Never smoker Tobacco Use: Non-smoker Assessment/Plan All Active Problems (Last Reviewed 04/03/18 @ 14:04 by Kaleigh Yeager) Hematuria (Acute) Acute blood loss anemia (Acute) Wheezing (Resolved) Hyponatremia (Resolved) Ileus (Resolved) 1. hematuria * ongoing * patient with intermittent flushes * CT concerning for bladder inflammation or lesion (lesion may be clot debris) * seen and do not recommend continuous flushing at this time. Catheter changed 2. Acute blood loss anemia * 2/2 above * Hg 13.2 on 04/18, now 8.5 * no transfusions at this time * continue to monitor H/H 3. Ileus * asymptomatic * seen on CT * on regular diet 4. ESRD * on HD * nephrology on consult 5. Syncope * suspect vaso-vagal 6. DVT proph: SCDs 7. Disposition: back to group when when H/H stable and hematuria resolved. Code Visit Inpatient E&M: 78346 Subs Hosp L2
--- NOTE | 2018-04-21 11:15 | CASEMGMT ---
Social Work MS3 Referral: from RN CM due patient residing at [facility]. Informant: Medical record, RN from correction Catherine Freire, and patient's mother/legal guardian Cherelle Aguiar. Summary: Home situation: Lives at correction run through [place] [employer]. Functional Status at home: Patient needs assist with mobility. Patient has a walker, wheelchair, and grab bars. Patient is legally blind and per Catherine the patient does see shadows. Catherine reports patient is able to memorize numbers, and can make phone calls from memorization. Catherine confirms that patient is not yet on dialysis in the community. Employment: On disability, but does work at [employer] in [place] Monday through Monday. Legal/Personal Status: From chart review noted an emergency medical consent form from 2012 indicating that patient's mother is patient's legal guardian, and gave permission for [place] to consent to seek out medical care for patient. No letter of guardianship noted in patient's record. Community Supports/Agencies involved: [facility], [facility], Elidia Erinn is the service department manager [facility] - Joyce Mello is patient's counselor [facility] - active with skilled home health nursing - phone #[phone]; fax #[phone] Legal Guardian - patient's mother Cherelle Aguiar, secondary contact in case unable to reach Cherelle, and who can typically find Cherelle, is patient's father Seth. [phone]. Intervention: Spoke with Catherine SOTO from correction. Asked Catherine to fax the letter of guardianship to [facility], which Catherine reports can do on Monday when back in the office. Called Cherelle who also confirms to be the legal guardian, signs consent forms, and provided secondary contact number if for some reason Cherelle does not answer the phone. Plan: When medical stable to return to correction. If medically stable over the weekend will need to call Catherine to coordinate transport. Would need to alert the legal guardian to discharge as well. Green Sheet placed on chart for nursing staff to follow in case of weekend discharge. Social work to follow if remains through the weekend. -ADRIANA Jenkins, CLINICAL LABORATORY MANAGER
[2018-04-21] MEDS: Insulin Lispro 100 UNIT/ML INSULN.PEN SC (11:55)
[2018-04-21 12:11] LABS: Bedside Glucose 192 mg/dL (70-110)
[2018-04-21 14:45] LABS: Absolute Lymphocyte Count 1.86 X10^3/ul (0.83-4.51); Absolute Neutrophil Count 4.3 X10^3/uL (2.0-7.7); Basophil# 0.01 X10^3/uL; Basophil% 0.1 % (0-1); Eosinophil# 0.17 X10^3/uL; Eosinophils% 2.3 % (0-5); Hematocrit 25.5 % (40-54); Hemoglobin 8.3 g/dl (13.0-16.5); Lymphocyte # 1.86 X10^3/ul (4.0); Mean Corp Hgb Conc 32.5 g/gl (32-36); Mean Corpuscular Hgb 32.5 pg (27.0-32.0); Mean Platelet Vol. 11.1 fl (6.2-12.0); Monocyte# 1.07 X10^3/uL; Monocyte% 14.4 % (0-10); Neutrophil % 57.9 % (47-70); Platelet Count 157 K/mm3 (150-450); RBC Distribution Width CV 12.2 % (11.6-14.6); RBC Distribution Width SD 43.2 fl (35.1-43.9); Red Blood Count 2.55 M/mm3 (4.6-6.2); White Blood Count 7.4 K/mm3 (4.4-11.0)
[2018-04-21 14:46] LABS: POSITIVE COUNT NO; POSITIVE DIFFERENTIAL NO; POSITIVE MORPHOLOGY NO
[2018-04-21] MEDS: Acetaminophen 325 MG Tablet 650 MG PO (14:54)
[2018-04-21] MEDS: QUEtiapine 100 MG Tablet PO (16:27)
[2018-04-21 16:36] LABS: Bedside Glucose 249 mg/dL (70-110)
--- NOTE | 2018-04-21 17:06 | PCM.CONS.R ---
Problem List (1) CKD (chronic kidney disease) stage 5, GFR less than 15 ml/min Status: Acute Consultation - Renal 04/21/18 PCP/ Referring MD: Requesting physician: Dr Baer Primary care physician: Koki Kent Reason for Consultation:: CKD stage 5 - History of Present Illness History of Present Illness: The patient is a 38 year old M well known to us from office. CKD stage 5 secondary to chronic obstructive nephropathy. 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 recently had a right arm AVF placed in anticipation of dialysis since renal function was progressively getting worse. came in with hematuria. seen by urology. currently denies any complaints. looks somewhat edematous. no nausea or vomiting - Allergies Allergies: Allergies No Known Allergies Allergy (Verified 04/20/18 10:37) - Current Medications Current Medications: Current Medications Acetaminophen (Tylenol) 650 mg PO Q4H PRN PRN PRN Reason: PAIN Last Admin: 04/21/18 14:54 Dose: 650 mg Albuterol Sulfate (Ventolin Aerosols) 2.5 mg INHALATION Q4H PRN PRN Reason: SHORTNESS OF BREATH Ascorbic Acid (Vitamin C) 1,000 mg PO DAILY [facility] Last Admin: 04/21/18 08:12 Dose: 1,000 mg Aspirin (Ecotrin) 81 mg PO DAILY@0800 [facility] Last Admin: 04/21/18 08:09 Dose: 81 mg Atorvastatin Calcium (Lipitor) 5 mg PO QHS [facility] Last Admin: 04/20/18 21:06 Dose: 5 mg Cholecalciferol (Vitamin D) 5,000 unit PO DAILY [facility] Last Admin: 04/21/18 08:11 Dose: 5,000 unit Emollient Ointment (Eucerin Intensive Repair) 1 applic TOPICAL BID [facility] Last Admin: 04/21/18 08:17 Dose: 1 applicatio Ferrous Sulfate (Ferrous Sulfate) 650 mg PO DAILY@0800 [facility] Last Admin: 04/21/18 08:13 Dose: 650 mg Fluoxetine HCl (Prozac) 30 mg PO DAILY [facility] Last Admin: 04/21/18 08:09 Dose: 30 mg Fluticasone Propionate (Flonase Nasal [place]) 2 spray NASAL DAILY [facility] Last Admin: 04/21/18 08:13 Dose: 2 spray Insulin Glargine (Lantus (Bkc)) 14 units SC BID [facility] Last Admin: 04/21/18 08:14 Dose: 14 u Insulin Human Lispro (Humalog Kwikpen ([facility])) 8 unit SC 0800,1700 [facility] Last Admin: 04/21/18 16:27 Dose: 8 u Insulin Human Lispro (Humalog Kwikpen ([facility])) 4 unit SC 1100 [facility] Last Admin: 04/21/18 11:55 Dose: 4 u Loratadine (Claritin) 10 mg PO DAILY [facility] Last Admin: 04/21/18 08:11 Dose: 10 mg Magnesium Hydroxide (Milk Of Magnesia) 30 ml PO DAILY PRN PRN PRN Reason: Constipation Melatonin (Melatonin) 3 mg PO QHS [facility] Last Admin: 04/20/18 21:09 Dose: 3 mg Metoprolol Tartrate (Lopressor (Beta August)) 12.5 mg PO BID [facility] Last Admin: 04/21/18 08:09 Dose: 12.5 mg Non-Formulary Medication (Citric Ac/Gluconolact/Mag Carb [Renacidin Irrigation Solution]) 30 ml IR 0800,1600,1999 [facility] Non-Formulary Medication (Olopatadine Hcl [Pataday]) 1 drop EACHEYE DAILY [facility] Oxybutynin Chloride (Ditropan) 5 mg PO DAILY PRN PRN Reason: BLADDER SPASMS Pantoprazole Sodium (Protonix) 40 mg PO DAILY [facility] Last Admin: 04/21/18 08:09 Dose: 40 mg Polyethylene Glycol (Miralax) 17 gm PO QHS PRN PRN Reason: if pt does not have large BM Polyethylene Glycol (Miralax) 17 gm PO 0800,1600 [facility] Last Admin: 04/21/18 16:27 Dose: 17 gm Quetiapine Fumarate (Seroquel) 100 mg PO 1700 [facility] Last Admin: 04/21/18 16:27 Dose: 100 mg Quetiapine Fumarate (Seroquel) 200 mg PO 0800,2000 [facility] Last Admin: 04/21/18 08:12 Dose: 200 mg Senna (Senokot) 1 tablet PO BID [facility] Last Admin: 04/21/18 08:10 Dose: 1 tablet Sodium Chloride () 5 - 30 ml IV UD PRN PRN Reason: SALINE FLUSH - Past Medical History Past Medical History (Chronic Problems): Chronic Problems (Last Updated 04/21/18 @ 08:32 by Yassine Baer DO) ESRD (end stage renal disease) (Chronic) Problem with dialysis access (Chronic) History of suprapubic catheter (Chronic) Hx of exploratory laparotomy (Chronic) hx of PICC Line (Chronic) History of esophagogastroduodenoscopy (EGD) (Chronic) 08/21/12 Hx of colonoscopy (Chronic) 08/21/12 and 12/04/14 (decompression for pseudoobstruction) Hx of arteriovenostomy for renal dialysis (Chronic) transposition left upper arm cephalic vein to brachial artery arteriovenous fistula creation- 12/17/15 Right forearm Radial to cephalic AV fistula- 02/16/18 Hx of appendectomy (Chronic) 2000 Strabismus (Chronic) Disruptive Behavior Disorder (Chronic) Diabetic retinopathy (Chronic) History of constipation (Chronic) Chronic kidney disease (Chronic) History of Suprapubic Cystostomy (Chronic) History of anxiety disorder (Chronic) - Past Surgical History Surgical History: appendectomy, - - Social History Smoking Status: Never smoker Alcohol: None Drugs: None - Family History Maternal History Items: No pertinent history Paternal History Items: No pertinent history Review of Systems Constitutional: Denies: Chills, Fever, Weight Change HEENT: Denies: Head Aches, Sinus Congestion, Sinus Drainage Cardiovascular: Denies: Chest Pain, Palpitations Respiratory: Denies: Cough, Shortness of breath at rest, Sputum production Gastrointestinal: Denies: Abdominal Pain, Nausea, Vomiting Genitourinary: Denies: Dysuria Musculoskeletal: Denies: Joint Pain, Joint Tenderness Skin: Denies: Rash, Wounds Neurological: Denies: Numbness, Tingling, Focal weakness Psychiatric: Denies: Anxiety, Depression, Homicidal Ideations, Suicidal Ideations Hematologic/ Lymphatic: Denies: Easy Bruising, Easy Bleeding Patient Problems: Active and Suspected Problems (Last Updated 04/21/18 @ 08:32 by Yassine Baer DO) CKD (chronic kidney disease) stage 5, GFR less than 15 ml/min (Acute) Hematuria (Acute) Acute blood loss anemia (Acute) - Physical Exam General: Alert, Oriented x3, Cooperative HEENT: Atraumatic, PERRLA, EOMI, Normocephalic Neck: Supple, No JVD, Negative Carotid Bruits Lungs: Clear to auscultation, Normal air movement Cardiovascular: Regular rate, No murmurs Abdomen: Bowel Sounds Present, Soft, Non Tender Extremities: No edema, Capillary Refill Less than 3 Seconds Skin: No rashes, No breakdown Musculoskeletal: No Tenderness to Palpation of Joints or Extremities Neurological: Cranial nerves II-XII grossly intact Psych/Mental Status: Normal Affect, Appropriate Vital Signs Temp Pulse Resp BP Pulse Ox 99.0 F 98 18 103/56 L 92 04/21/18 14:48 04/21/18 14:48 04/21/18 14:48 04/21/18 14:48 04/21/18 14:48 Oxygen Flow Rate (L/min) 1 Oxygen Delivery Method Room Air Weight: 104.054 kg Body Mass Index (BMI) 39.4 Finger Stick Blood Glucose 136 Intake and Output for Last 24 Hours 04/19/18 04/20/18 04/21/18 23:59 23:59 23:59 Intake Total 480 / 480 1260 / 1260 Output Total 1930 / 1930 2975 / 2975 Balance -1450 / -1450 -1715 / -1715 Microbiology Past 72 Hours 04/20/18 12:21 Urine Culture - Preliminary Urine, Catheterized Mixed Gram Pos & Gram Neg Org Laboratory Tests Past 24 Hrs 04/21/18 04/21/18 04/21/18 07:54 07:54 14:32 WBC 5.3 7.4 RBC 2.72 L 2.55 L Hgb 8.5 L 8.3 L Hct 26.6 L 25.5 L MCV 97.8 H 100.0 H MCH 31.3 32.5 H MCHC 32.0 32.5 RDW 12.9 12.2 RDW Differential 45.9 H 43.2 Plt Count 165 157 MPV 10.7 11.1 Immature Gran % (Auto) 0.000 0.300 Neut % (Auto) 58.2 57.9 Lymph % (Auto) 27.7 25.0 [place] % (Auto) 11.4 H 14.4 H Eos % (Auto) 2.5 2.3 Baso % (Auto) 0.2 0.1 Absolute Neuts (auto) 3.1 4.3 Absolute Lymphs (auto) 1.46 1.86 Total Counted Not Reportable Not Reportable Sodium 138 Potassium 5.0 Chloride 105 Carbon Dioxide 25.0 Anion Gap 8 BUN 78 H Creatinine 4.34 H Estim Creat Clear Calc 19.70 Est GFR (MDRD) Af Amer 20 L Est GFR (MDRD) Non-Af 17 L BUN/Creatinine Ratio 18.0 Glucose 229 H Calcium 8.1 L POC Glucose 04/21/18 04/21/18 04/21/18 16:25 11:53 08:23 POC Glucose 249 H 192 H 218 H 04/20/18 21:03 POC Glucose 410 H Assessment/Plan All Active Problems (Last Updated 04/21/18 @ 08:32 by Yassine Baer, ) CKD (chronic kidney disease) stage 5, GFR less than 15 ml/min (Acute) Hematuria (Acute) Acute blood loss anemia (Acute) Wheezing (Resolved) Hyponatremia (Resolved) Ileus (Resolved) CKD stage 5. fairly advanced CKD. secondary to obstructive nephropathy. did require about 4-5 sessions on dialysis when he was recently admitted at [place] but was able to come off. at that time his fistula clotted off. a new fistula was placed in anticipation of dialysis. currently not uremic, electrolytes are ok. looks somewhat edematous but no difficulty breathing. AVF was just placed. dont see a need to start dialysis right now by placing a tunneled line. can wait till AVF is ready hematuria. looks better now. Hb dropped quite a bit. He developed a superficial DVT(line associated) at [place] for which he was placed on eliquis. discussed with Dr kent recently and this was discontinued due to hematuria since he finished required duration of DVT treatment Anemia. transfuse if Hb less than 7 d/w Dr Baer Thank you
--- NOTE | 2018-04-21 17:12 | CON.PCM_ITS ---
Problem List (1) CKD (chronic kidney disease) stage 5, GFR less than 15 ml/min Status: Acute Consultation - Renal 04/21/18 PCP/ Referring MD: Requesting physician: Dr Baer Primary care physician: Koki Kent Reason for Consultation:: CKD stage 5 - History of Present Illness History of Present Illness: The patient is a 38 year old M well known to us from office. CKD stage 5 secondary to chronic obstructive nephropathy. 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 recently had a right arm AVF placed in anticipation of dialysis since renal function was progressively getting worse. came in with hematuria. seen by urology. currently denies any complaints. looks somewhat edematous. no nausea or vomiting - Allergies Allergies: Allergies No Known Allergies Allergy (Verified 04/20/18 10:37) - Current Medications Current Medications: Current Medications Acetaminophen (Tylenol) 650 mg PO Q4H PRN PRN PRN Reason: PAIN Last Admin: 04/21/18 14:54 Dose: 650 mg Albuterol Sulfate (Ventolin Aerosols) 2.5 mg INHALATION Q4H PRN PRN Reason: SHORTNESS OF BREATH Ascorbic Acid (Vitamin C) 1,000 mg PO DAILY [facility] Last Admin: 04/21/18 08:12 Dose: 1,000 mg Aspirin (Ecotrin) 81 mg PO DAILY@0800 [facility] Last Admin: 04/21/18 08:09 Dose: 81 mg Atorvastatin Calcium (Lipitor) 5 mg PO QHS [facility] Last Admin: 04/20/18 21:06 Dose: 5 mg Cholecalciferol (Vitamin D) 5,000 unit PO DAILY [facility] Last Admin: 04/21/18 08:11 Dose: 5,000 unit Emollient Ointment (Eucerin Intensive Repair) 1 applic TOPICAL BID [facility] Last Admin: 04/21/18 08:17 Dose: 1 applicatio Ferrous Sulfate (Ferrous Sulfate) 650 mg PO DAILY@0800 [facility] Last Admin: 04/21/18 08:13 Dose: 650 mg Fluoxetine HCl (Prozac) 30 mg PO DAILY [facility] Last Admin: 04/21/18 08:09 Dose: 30 mg Fluticasone Propionate (Flonase Nasal [place]) 2 spray NASAL DAILY [facility] Last Admin: 04/21/18 08:13 Dose: 2 spray Insulin Glargine (Lantus (Bkc)) 14 units SC BID [facility] Last Admin: 04/21/18 08:14 Dose: 14 u Insulin Human Lispro (Humalog Kwikpen ([facility])) 8 unit SC 0800,1700 [facility] Last Admin: 04/21/18 16:27 Dose: 8 u Insulin Human Lispro (Humalog Kwikpen ([facility])) 4 unit SC 1100 [facility] Last Admin: 04/21/18 11:55 Dose: 4 u Loratadine (Claritin) 10 mg PO DAILY [facility] Last Admin: 04/21/18 08:11 Dose: 10 mg Magnesium Hydroxide (Milk Of Magnesia) 30 ml PO DAILY PRN PRN PRN Reason: Constipation Melatonin (Melatonin) 3 mg PO QHS [facility] Last Admin: 04/20/18 21:09 Dose: 3 mg Metoprolol Tartrate (Lopressor (Beta August)) 12.5 mg PO BID [facility] Last Admin: 04/21/18 08:09 Dose: 12.5 mg Non-Formulary Medication (Citric Ac/Gluconolact/Mag Carb [Renacidin Irrigation Solution]) 30 ml IR 0800,1600,1999 [facility] Non-Formulary Medication (Olopatadine Hcl [Pataday]) 1 drop EACHEYE DAILY [facility] Oxybutynin Chloride (Ditropan) 5 mg PO DAILY PRN PRN Reason: BLADDER SPASMS Pantoprazole Sodium (Protonix) 40 mg PO DAILY [facility] Last Admin: 04/21/18 08:09 Dose: 40 mg Polyethylene Glycol (Miralax) 17 gm PO QHS PRN PRN Reason: if pt does not have large BM Polyethylene Glycol (Miralax) 17 gm PO 0800,1600 [facility] Last Admin: 04/21/18 16:27 Dose: 17 gm Quetiapine Fumarate (Seroquel) 100 mg PO 1700 [facility] Last Admin: 04/21/18 16:27 Dose: 100 mg Quetiapine Fumarate (Seroquel) 200 mg PO 0800,2000 [facility] Last Admin: 04/21/18 08:12 Dose: 200 mg Senna (Senokot) 1 tablet PO BID [facility] Last Admin: 04/21/18 08:10 Dose: 1 tablet Sodium Chloride () 5 - 30 ml IV UD PRN PRN Reason: SALINE FLUSH - Past Medical History Past Medical History (Chronic Problems): Chronic Problems (Last Updated 04/21/18 @ 08:32 by Yassine Baer DO) ESRD (end stage renal disease) (Chronic) Problem with dialysis access (Chronic) History of suprapubic catheter (Chronic) Hx of exploratory laparotomy (Chronic) hx of PICC Line (Chronic) History of esophagogastroduodenoscopy (EGD) (Chronic) 08/21/12 Hx of colonoscopy (Chronic) 08/21/12 and 12/04/14 (decompression for pseudoobstruction) Hx of arteriovenostomy for renal dialysis (Chronic) transposition left upper arm cephalic vein to brachial artery arteriovenous fistula creation- 12/17/15 Right forearm Radial to cephalic AV fistula- 02/16/18 Hx of appendectomy (Chronic) 2000 Strabismus (Chronic) Disruptive Behavior Disorder (Chronic) Diabetic retinopathy (Chronic) History of constipation (Chronic) Chronic kidney disease (Chronic) History of Suprapubic Cystostomy (Chronic) History of anxiety disorder (Chronic) - Past Surgical History Surgical History: appendectomy, - - Social History Smoking Status: Never smoker Alcohol: None Drugs: None - Family History Maternal History Items: No pertinent history Paternal History Items: No pertinent history Review of Systems Constitutional: Denies: Chills, Fever, Weight Change HEENT: Denies: Head Aches, Sinus Congestion, Sinus Drainage Cardiovascular: Denies: Chest Pain, Palpitations Respiratory: Denies: Cough, Shortness of breath at rest, Sputum production Gastrointestinal: Denies: Abdominal Pain, Nausea, Vomiting Genitourinary: Denies: Dysuria Musculoskeletal: Denies: Joint Pain, Joint Tenderness Skin: Denies: Rash, Wounds Neurological: Denies: Numbness, Tingling, Focal weakness Psychiatric: Denies: Anxiety, Depression, Homicidal Ideations, Suicidal Ideations Hematologic/ Lymphatic: Denies: Easy Bruising, Easy Bleeding Patient Problems: Active and Suspected Problems (Last Updated 04/21/18 @ 08:32 by Yassine Baer DO) CKD (chronic kidney disease) stage 5, GFR less than 15 ml/min (Acute) Hematuria (Acute) Acute blood loss anemia (Acute) - Physical Exam General: Alert, Oriented x3, Cooperative HEENT: Atraumatic, PERRLA, EOMI, Normocephalic Neck: Supple, No JVD, Negative Carotid Bruits Lungs: Clear to auscultation, Normal air movement Cardiovascular: Regular rate, No murmurs Abdomen: Bowel Sounds Present, Soft, Non Tender Extremities: No edema, Capillary Refill Less than 3 Seconds Skin: No rashes, No breakdown Musculoskeletal: No Tenderness to Palpation of Joints or Extremities Neurological: Cranial nerves II-XII grossly intact Psych/Mental Status: Normal Affect, Appropriate Vital Signs Temp Pulse Resp BP Pulse Ox 99.0 F 98 18 103/56 L 92 04/21/18 14:48 04/21/18 14:48 04/21/18 14:48 04/21/18 14:48 04/21/18 14:48 Oxygen Flow Rate (L/min) 1 Oxygen Delivery Method Room Air Weight: 104.054 kg Body Mass Index (BMI) 39.4 Finger Stick Blood Glucose 136 Intake and Output for Last 24 Hours 04/19/18 04/20/18 04/21/18 23:59 23:59 23:59 Intake Total 480 / 480 1260 / 1260 Output Total 1930 / 1930 2975 / 2975 Balance -1450 / -1450 -1715 / -1715 Microbiology Past 72 Hours 04/20/18 12:21 Urine Culture - Preliminary Urine, Catheterized Mixed Gram Pos & Gram Neg Org Laboratory Tests Past 24 Hrs 04/21/18 04/21/18 04/21/18 07:54 07:54 14:32 WBC 5.3 7.4 RBC 2.72 L 2.55 L Hgb 8.5 L 8.3 L Hct 26.6 L 25.5 L MCV 97.8 H 100.0 H MCH 31.3 32.5 H MCHC 32.0 32.5 RDW 12.9 12.2 RDW Differential 45.9 H 43.2 Plt Count 165 157 MPV 10.7 11.1 Immature Gran % (Auto) 0.000 0.300 Neut % (Auto) 58.2 57.9 Lymph % (Auto) 27.[address] [place] % (Auto) 11.4 H 14.4 H Eos % (Auto) 2.5 2.3 Baso % (Auto) 0.2 0.1 Absolute Neuts (auto) 3.1 4.3 Absolute Lymphs (auto) 1.46 1.86 Total Counted Not Reportable Not Reportable Sodium 138 Potassium 5.0 Chloride 105 Carbon Dioxide 25.0 Anion Gap 8 BUN 78 H Creatinine 4.34 H Estim Creat Clear Calc 19.70 Est GFR (MDRD) Af Amer 20 L Est GFR (MDRD) Non-Af 17 L BUN/Creatinine Ratio 18.0 Glucose 229 H Calcium 8.1 L POC Glucose 04/21/18 04/21/18 04/21/18 16:25 11:53 08:23 POC Glucose 249 H 192 H 218 H 04/20/18 21:03 POC Glucose 410 H Assessment/Plan All Active Problems (Last Updated 04/21/18 @ 08:32 by Yassine Baer, ) CKD (chronic kidney disease) stage 5, GFR less than 15 ml/min (Acute) Hematuria (Acute) Acute blood loss anemia (Acute) Wheezing (Resolved) Hyponatremia (Resolved) Ileus (Resolved) CKD stage 5. fairly advanced CKD. secondary to obstructive nephropathy. did require about 4-5 sessions on dialysis when he was recently admitted at [place] but was able to come off. at that time his fistula clotted off. a new fistula was placed in anticipation of dialysis. currently not uremic, electrolytes are ok. looks somewhat edematous but no difficulty breathing. AVF was just placed. dont see a need to start dialysis right now by placing a tunneled line. can wait till AVF is ready hematuria. looks better now. Hb dropped quite a bit. He developed a superficial DVT(line associated) at [place] for which he was placed on eliquis. discussed with Dr kent recently and this was discontinued due to hematuria since he finished required duration of DVT treatment Anemia. transfuse if Hb less than 7 d/w Dr Baer Thank you
[2018-04-21] MEDS: MELATONIN 3 MG TABLET PO (22:16)
[2018-04-21] MEDS: Atorvastatin Calcium 10 MG Tablet 5 MG PO (22:16)
[2018-04-21 22:35] LABS: Bedside Glucose 198 mg/dL (70-110)
[2018-04-22 03:00] VITALS: BP 102/58; PULSE 85; RESP 16; TEMP 36.7; O2SAT 97
[2018-04-22 07:37] LABS: Absolute Lymphocyte Count 1.75 X10^3/ul (0.83-4.51); Absolute Neutrophil Count 2.4 X10^3/uL (2.0-7.7); Basophil# 0.01 X10^3/uL; Basophil% 0.2 % (0-1); Eosinophil# 0.16 X10^3/uL; Eosinophils% 3.2 % (0-5); Hematocrit 25.3 % (40-54); Lymphocyte # 1.75 X10^3/ul (4.0); Lymphocyte % 35.4 % (19-41); Mean Corp Hgb Conc 31.6 g/gl (32-36); Mean Corpuscular Hgb 31.5 pg (27.0-32.0); Mean Corpuscular Volume 99.6 fL (80-94); Mean Platelet Vol. 10.8 fl (6.2-12.0); Monocyte# 0.67 X10^3/uL; Monocyte% 13.5 % (0-10); Neutrophil # 2.36 X10^3/uL (2.7-7.7); Neutrophil % 47.7 % (47-70); Platelet Count 160 K/mm3 (150-450); RBC Distribution Width CV 12.3 % (11.6-14.6); RBC Distribution Width SD 42.8 fl (35.1-43.9); Red Blood Count 2.54 M/mm3 (4.6-6.2)
[2018-04-22 07:42] LABS: POSITIVE COUNT NO; POSITIVE DIFFERENTIAL NO; POSITIVE MORPHOLOGY NO
[2018-04-22 07:49] LABS: Anion Gap 9 (5-15); BUN 79 mg/dL (7-18); BUN/Creat Ratio 17.9 RATIO (10-20); Chloride 106 mmol/L (98-107); Creatinine, Serum 4.41 mg/dL (0.70-1.30); EST Glomerular Filtration Rate 16 mL/min (>60); Est Glom Filt Rate - Afr Amer 20 mL/min (>60); Estimated Creatinine Clearance 19.39 ml/min; Glucose 147 mg/dL (74-106); Potassium 4.3 mmol/L (3.5-5.1); Sodium Level 142 mmol/L (136-145)
[2018-04-22 08:20] VITALS: BP 126/77; PULSE 87; RESP 20; TEMP 36.6; O2SAT 99
[2018-04-22] MEDS: Ferrous Sulfate 325 MG Tablet 650 MG PO (08:26)
[2018-04-22] MEDS: Aspirin E.C. 81 MG Tablet PO (08:26)
[2018-04-22] MEDS: Polyethylene Glycol 3350 17 GM PACKET PO (08:27)
[2018-04-22] MEDS: QUEtiapine 100 MG Tablet 200 MG PO (08:27)
[2018-04-22] MEDS: Insulin Lispro 100 UNIT/ML INSULN.PEN 8 UNIT SC (08:29)
[2018-04-22 09:00] VITALS: PULSE 87; RESP 20
--- NOTE | 2018-04-22 09:05 | DCINST_ITS ---
- Discharge Diagnoses Current Active Problems: Current Active and Chronic Problems (Last Updated 04/21/18 @ 08:32 by Yassine Baer DO) CKD (chronic kidney disease) stage 5, GFR less than 15 ml/min (Acute) Hematuria (Acute) ESRD (end stage renal disease) (Chronic) Acute blood loss anemia (Acute) You will use the following diet at home:: Calorie/Carbohydrate Controlled (specify 1200, 1400, etc) - 1800 Your food should be the consistency of: Regular Your liquids should be the consistency of: Regular/Thin Call your doctor if you observe: Fever of 101 or Higher, Shortness of breath, Fainting spells, - - lightheadedness. continued hematuria. Allergies/Adverse Reactions: Allergies No Known Allergies Allergy (Verified 04/20/18 10:37) Medications to take at Discharge Ascorbic Acid [Vitamin C] 1,000 mg PO DAILY 02/21/15 Fluoxetine [Prozac] 20 mg PO DAILY 02/21/15 Loratadine [Claritin] 10 mg PO DAILY 07/08/15 Melatonin 3 mg PO QHS 12/09/15 Insulin Lispro [Humalog Kwikpen] 0 unit SQ TIDCM 08/29/16 Sennosides [Senna] 8.6 mg PO BID 12/29/16 Insulin Lispro [Humalog] 8 unit SQ 0700,1700 12/24/17 Cholecalciferol (Vitamin D3) [Vitamin D3] 5,000 unit PO DAILY 01/09/18 Insulin Glargine [Lantus SoloStar Pen] 14 units SC QHS 02/09/18 Polyethylene Glycol 3350 [Miralax] 17 gm PO 0800,1600 02/09/18 Albuterol Inhaler [Ventolin Hfa] 2 puff INHALATION Q4H PRN PRN 04/20/18 Ammonium Lactate [Amlactin] 1 applic TP BID 04/20/18 Aspirin E.C. [Ecotrin] 81 mg PO DAILY@0800 04/20/18 Atorvastatin Calcium 5 mg PO QHS 04/20/18 Citric AC/Gluconolact/Mag Carb [Renacidin Irrigation Solution] 30 ml IR 0800,1600,2000 04/20/18 Fluoxetine [Prozac] 10 mg PO DAILY 04/20/18 Fluticasone 0.05% [Flonase Nasal [place]] 2 spray NASAL DAILY 04/20/18 Insulin Glargine,Hum.rec.anlog [Lantus] 14 unit SQ DAILY 04/20/18 Insulin Lispro [Humalog] 4 unit SQ 1100 04/20/18 Ketoconazole 1 applic TP UD 04/20/18 Metoprolol Tartrate 12.5 mg PO BID 04/20/18 Olopatadine HCl [Pataday] 1 drop EACHEYE DAILY 04/20/18 Oxybutynin [Ditropan] 5 mg PO DAILY PRN 04/20/18 Pantoprazole Sodium [Protonix] 40 mg PO DAILY 04/20/18 Polyethylene Glycol 3350 [Miralax] 17 gm PO QHS PRN 04/20/18 Quetiapine Fumarate [Seroquel] 100 mg PO 1700 04/20/18 Quetiapine Fumarate [Seroquel] 200 mg PO 0800,199904/20/18 Ferrous Sulfate 325 mg PO BIDCM #28 tablet 04/22/18 The following prescriptions were given: Ferrous Sulfate 325 mg PO BIDCM #28 tablet Orders to be completed after discharge: CBC W/Diff, Automated Time Frame: 1 Week, Location: Laboratory Primary Care Physician: Koki Finney MD [Primary Care Provider] - Within 2 Weeks Test Results: Test results from this visit will be discussed in further detail at your follow- up appointment, if applicable. Please Follow Up With: Jose Juan Patel MD When: 1-2 weeks Proposed Discharge Date: 04/22/18
--- NOTE | 2018-04-22 09:05 | PCM.DC.SUM ---
Discharge Date and Diagnosis - Problem List Patient Problems: Active and Suspected Problems (Last Updated 04/21/18 @ 08:32 by Yassine Baer DO) Hematuria (Acute) Acute blood loss anemia (Acute) Date of Admission: 04/20/18 Date of Discharge: 04/22/18 - Primary Discharge Diagnosis Active and Suspected Problems (Last Updated 04/21/18 @ 08:32 by Yassine Baer DO) CKD (chronic kidney disease) stage 5, GFR less than 15 ml/min (Acute) Hematuria (Acute) Acute blood loss anemia (Acute) 1. hematuria ongoing patient with intermittent flushes CT concerning for bladder inflammation or lesion (lesion may be clot debris) seen and do not recommend continuous flushing at this time. Catheter changed 2. Acute blood loss anemia 2/2 above Hg 13.2 on 04/18, now 8.5 no transfusions at this time continue to monitor H/H 3. Ileus asymptomatic seen on CT on regular diet 4. ESRD not on HD nephrology on consult 5. Syncope suspect vaso-vagal - Secondary Discharge Diagnosis Chronic Problems (Last Updated 04/21/18 @ 08:32 by Yassine Baer DO) ESRD (end stage renal disease) (Chronic) Problem with dialysis access (Chronic) History of suprapubic catheter (Chronic) Hx of exploratory laparotomy (Chronic) hx of PICC Line (Chronic) History of esophagogastroduodenoscopy (EGD) (Chronic) 08/21/12 Hx of colonoscopy (Chronic) 08/21/12 and 12/04/14 (decompression for pseudoobstruction) Hx of arteriovenostomy for renal dialysis (Chronic) transposition left upper arm cephalic vein to brachial artery arteriovenous fistula creation- 12/17/15 Right forearm Radial to cephalic AV fistula- 02/16/18 Hx of appendectomy (Chronic) 2000 Strabismus (Chronic) Disruptive Behavior Disorder (Chronic) Diabetic retinopathy (Chronic) History of constipation (Chronic) Chronic kidney disease (Chronic) History of Suprapubic Cystostomy (Chronic) History of anxiety disorder (Chronic) Hospital Course and Treatment Imaging Results: Clinical Impression(s) from Imaging Studies Abdomen/Pelvis CT 04/20/18 10:32 IMPRESSION: Bladder contains a suprapubic catheter and also significant heterogeneous debris. Findings suggest inflammation or mass lesion. Stable bilateral nephrocalcinosis and renal atrophy Small bowel ileus Retained stool throughout the colon Degenerative bony changes Electronically Signed: Tyrel Cortés MD at 12:41 EDT , Service support , Dr. Gonzales Operations: None Procedures: None Summary of Care Provided: The patient is a 38 year old M presents with syncope. Patient was having hematuria. Patient's hemoglobin had dropped down considerably from 13.2 on HEENT to 8 on the fourth. This is due to hematuria. Patient was seen in consultation by irrigation intermittently but without continuous. Patient also seen by nephrology who stated patient is not on long-term dialysis but was but has subsequently come off. Patient's hematuria did resolve. Patient hemoglobin did drop down to 8. Patient will be recommend to take ferrous sulfate 325 mg twice daily. Patient instructed to have a CBC in 1 week's time.. [] Patient Problems: Active and Suspected Problems (Last Updated 04/21/18 @ 08:32 by Yassine Baer DO) Hematuria (Acute) Acute blood loss anemia (Acute) - Physical Exam General: Alert, Cooperative, No apparent distress HEENT: Atraumatic, Normocephalic Oral: Moist Mucosa, No Gingival or Mucosal Lesions/ Ulcerations Neck: No Nodes, Thyroid Normal Size and Texture Lungs: Clear to auscultation, Normal air movement, No rhonchi, No wheeze Cardiovascular: Regular rate, Regular Rhythm, Normal S1, Normal S2, No murmurs Abdomen: Bowel Sounds Present, Soft, Non Tender, Non-Distended, No Hepato-splenomegaly Extremities: No edema, No Calf Tenderness Skin: No rashes, No breakdown Vital Signs Temp Pulse Resp BP Pulse Ox 36.6 C 87 20 H 126/77 H 99 04/22/18 08:20 04/22/18 08:20 04/22/18 08:20 04/22/18 08:20 04/22/18 08:20 Oxygen Flow Rate (L/min) 1 Oxygen Delivery Method Nasal Cannula Weight: 104.054 kg Body Mass Index (BMI) 39.4 Finger Stick Blood Glucose 136 Intake and Output for Last 24 Hours 04/20/18 04/21/18 04/22/18 23:59 23:59 22:59 Intake Total 480 / 480 1740 / 1740 1280 / 1280 Output Total 1930 / 1929 3525 / 3525 1875 / 1875 Balance -1450 / -1450 -1785 / -1785 -595 / -595 Microbiology Past 72 Hours 04/20/18 12:21 Urine Culture - Preliminary Urine, Catheterized Mixed Gram Pos & Gram Neg Org Laboratory Tests Past 24 Hrs 04/21/18 04/22/18 04/22/18 14:32 07:26 07:26 WBC 7.4 5.0 RBC 2.55 L 2.54 L Hgb 8.3 L 8.0 L Hct 25.5 L 25.3 L MCV 100.0 H 99.6 H MCH 32.5 H 31.5 MCHC 32.5 31.6 L RDW 12.2 12.3 RDW Differential 43.2 42.8 Plt Count 157 160 MPV 11.1 10.8 Immature Gran % (Auto) 0.300 0.000 Neut % (Auto) 57.9 47.7 Lymph % (Auto) 25.0 35.4 [place] % (Auto) 14.4 H 13.5 H Eos % (Auto) 2.3 3.2 Baso % (Auto) 0.1 0.2 Absolute Neuts (auto) 4.3 2.4 Absolute Lymphs (auto) 1.86 1.75 Total Counted Not Reportable Not Reportable Sodium 142 Potassium 4.3 Chloride 106 Carbon Dioxide 27.0 Anion Gap 9 BUN 79 H Creatinine 4.41 H Estim Creat Clear Calc 19.39 Est GFR (MDRD) Af Amer 20 L Est GFR (MDRD) Non-Af 16 L BUN/Creatinine Ratio 17.9 Glucose 147 H Calcium 8.0 L POC Glucose 04/21/18 04/21/18 04/21/18 22:12 16:25 11:53 POC Glucose 198 H 249 H 192 H Discharge Diet: 1800 Calorie Control Diet, Renal Diet Discharge Activity: Return to Normal Activity Call your doctor if you observe: Fever of 101 or Higher, Shortness of breath, Fainting spells, - - lightheadedness. continued hematuria. Home Medications: Medications to take at Discharge Ascorbic Acid [Vitamin C] 1,000 mg PO DAILY 02/21/15 Fluoxetine [Prozac] 20 mg PO DAILY 02/21/15 Loratadine [Claritin] 10 mg PO DAILY 07/08/15 Melatonin 3 mg PO QHS 12/09/15 Insulin Lispro [Humalog Kwikpen] 0 unit SQ TIDCM 08/29/16 Sennosides [Senna] 8.6 mg PO BID 12/29/16 Insulin Lispro [Humalog] 8 unit SQ 0700,1700 12/24/17 Cholecalciferol (Vitamin D3) [Vitamin D3] 5,000 unit PO DAILY 01/09/18 Insulin Glargine [Lantus SoloStar Pen] 14 units SC QHS 02/09/18 Polyethylene Glycol 3350 [Miralax] 17 gm PO 0800,1600 02/09/18 Albuterol Inhaler [Ventolin Hfa] 2 puff INHALATION Q4H PRN PRN 04/20/18 Ammonium Lactate [Amlactin] 1 applic TP BID 04/20/18 Aspirin E.C. [Ecotrin] 81 mg PO DAILY@0800 04/20/18 Atorvastatin Calcium 5 mg PO QHS 04/20/18 Citric AC/Gluconolact/Mag Carb [Renacidin Irrigation Solution] 30 ml IR 0800,1600,199904/20/18 Fluoxetine [Prozac] 10 mg PO DAILY 04/20/18 Fluticasone 0.05% [Flonase Nasal [place]] 2 spray NASAL DAILY 04/20/18 Insulin Glargine,Hum.rec.anlog [Lantus] 14 unit SQ DAILY 04/20/18 Insulin Lispro [Humalog] 4 unit SQ 1100 04/20/18 Ketoconazole 1 applic TP UD 04/20/18 Metoprolol Tartrate 12.5 mg PO BID 04/20/18 Olopatadine HCl [Pataday] 1 drop EACHEYE DAILY 04/20/18 Oxybutynin [Ditropan] 5 mg PO DAILY PRN 04/20/18 Pantoprazole Sodium [Protonix] 40 mg PO DAILY 04/20/18 Polyethylene Glycol 3350 [Miralax] 17 gm PO QHS PRN 04/20/18 Quetiapine Fumarate [Seroquel] 100 mg PO 1700 04/20/18 Quetiapine Fumarate [Seroquel] 200 mg PO 0800,199904/20/18 Ferrous Sulfate 325 mg PO BIDCM #28 tablet 04/22/18 Following Prescrptions Were Given to Patient: Ferrous Sulfate 325 mg PO BIDCM #28 tablet Other Amb Orders: CBC W/Diff, Automated Time Frame: 1 Week, Location: Laboratory Primary Care Physician: Koki Finney MD [Primary Care Provider] - Within 2 Weeks Please Follow Up With: Jose Juan Patel MD When: 1-2 weeks Disposition: Home Minutes spent on discharge:: 32 Patient Condition:: Fair Medical Necessity - Tobacco Use Smoking Status: Never smoker Tobacco Use: Non-smoker Meaningful Use Info Meaningful Use Diagnoses (Choose all that apply): None applicable Code Visit Inpatient E&M: 13675 Disch Hosp
--- NOTE | 2018-04-22 09:09 | DS.PCM_ITS ---
Discharge Date and Diagnosis - Problem List Patient Problems: Active and Suspected Problems (Last Updated 04/21/18 @ 08:32 by Yassine Baer DO) Hematuria (Acute) Acute blood loss anemia (Acute) Date of Admission: 04/20/18 Date of Discharge: 04/22/18 - Primary Discharge Diagnosis Active and Suspected Problems (Last Updated 04/21/18 @ 08:32 by Yassine Baer DO) CKD (chronic kidney disease) stage 5, GFR less than 15 ml/min (Acute) Hematuria (Acute) Acute blood loss anemia (Acute) 1. hematuria * ongoing * patient with intermittent flushes * CT concerning for bladder inflammation or lesion (lesion may be clot debris) * seen and do not recommend continuous flushing at this time. Catheter changed 2. Acute blood loss anemia * 2/2 above * Hg 13.2 on 04/18, now 8.5 * no transfusions at this time * continue to monitor H/H 3. Ileus * asymptomatic * seen on CT * on regular diet 4. ESRD * not on HD * nephrology on consult 5. Syncope * suspect vaso-vagal - Secondary Discharge Diagnosis Chronic Problems (Last Updated 04/21/18 @ 08:32 by Yassine Baer DO) ESRD (end stage renal disease) (Chronic) Problem with dialysis access (Chronic) History of suprapubic catheter (Chronic) Hx of exploratory laparotomy (Chronic) hx of PICC Line (Chronic) History of esophagogastroduodenoscopy (EGD) (Chronic) 08/21/12 Hx of colonoscopy (Chronic) 08/21/12 and 12/04/14 (decompression for pseudoobstruction) Hx of arteriovenostomy for renal dialysis (Chronic) transposition left upper arm cephalic vein to brachial artery arteriovenous fistula creation- 12/17/15 Right forearm Radial to cephalic AV fistula- 02/16/18 Hx of appendectomy (Chronic) 2000 Strabismus (Chronic) Disruptive Behavior Disorder (Chronic) Diabetic retinopathy (Chronic) History of constipation (Chronic) Chronic kidney disease (Chronic) History of Suprapubic Cystostomy (Chronic) History of anxiety disorder (Chronic) Hospital Course and Treatment Imaging Results: Clinical Impression(s) from Imaging Studies Abdomen/Pelvis CT 04/20/18 10:32 IMPRESSION: Bladder contains a suprapubic catheter and also significant heterogeneous debris. Findings suggest inflammation or mass lesion. Stable bilateral nephrocalcinosis and renal atrophy Small bowel ileus Retained stool throughout the colon Degenerative bony changes Electronically Signed: Tyrel Cortés MD at 12:41 EDT , Service support , Dr. Gonzales Operations: None Procedures: None Summary of Care Provided: The patient is a 38 year old M presents with syncope. Patient was having hematuria. Patient's hemoglobin had dropped down considerably from 13.2 on HEENT to 8 on the fourth. This is due to hematuria. Patient was seen in consultation by irrigation intermittently but without continuous. Patient also seen by nephrology who stated patient is not on long-term dialysis but was but has subsequently come off. Patient's hematuria did resolve. Patient hemoglobin did drop down to 8. Patient will be recommend to take ferrous sulfate 325 mg twice daily. Patient instructed to have a CBC in 1 week's time.. [] Patient Problems: Active and Suspected Problems (Last Updated 04/21/18 @ 08:32 by Yassine Baer DO) Hematuria (Acute) Acute blood loss anemia (Acute) - Physical Exam General: Alert, Cooperative, No apparent distress HEENT: Atraumatic, Normocephalic Oral: Moist Mucosa, No Gingival or Mucosal Lesions/ Ulcerations Neck: No Nodes, Thyroid Normal Size and Texture Lungs: Clear to auscultation, Normal air movement, No rhonchi, No wheeze Cardiovascular: Regular rate, Regular Rhythm, Normal S1, Normal S2, No murmurs Abdomen: Bowel Sounds Present, Soft, Non Tender, Non-Distended, No Hepato- splenomegaly Extremities: No edema, No Calf Tenderness Skin: No rashes, No breakdown Vital Signs Temp Pulse Resp BP Pulse Ox 36.6 C 87 20 H 126/77 H 99 04/22/18 08:20 04/22/18 08:20 04/22/18 08:20 04/22/18 08:20 04/22/18 08:20 Oxygen Flow Rate (L/min) 1 Oxygen Delivery Method Nasal Cannula Weight: 104.054 kg Body Mass Index (BMI) 39.4 Finger Stick Blood Glucose 136 Intake and Output for Last 24 Hours 04/20/18 04/21/18 04/22/18 23:59 23:59 22:59 Intake Total 480 / 480 1740 / 1740 1280 / 1280 Output Total 1930 / 1930 3525 / 3525 1875 / 1875 Balance -1450 / -1450 -1785 / -1785 -595 / -595 Microbiology Past 72 Hours 04/20/18 12:21 Urine Culture - Preliminary Urine, Catheterized Mixed Gram Pos & Gram Neg Org Laboratory Tests Past 24 Hrs 04/21/18 04/22/18 04/22/18 14:32 07:26 07:26 WBC 7.4 5.0 RBC 2.55 L 2.54 L Hgb 8.3 L 8.0 L Hct 25.5 L 25.3 L MCV 100.0 H 99.6 H MCH 32.5 H 31.5 MCHC 32.5 31.6 L RDW 12.2 12.3 RDW Differential 43.2 42.8 Plt Count 157 160 MPV 11.1 10.8 Immature Gran % (Auto) 0.300 0.000 Neut % (Auto) 57.9 47.7 Lymph % (Auto) 25.0 35.4 [place] % (Auto) 14.4 H 13.5 H Eos % (Auto) 2.3 3.2 Baso % (Auto) 0.1 0.2 Absolute Neuts (auto) 4.3 2.4 Absolute Lymphs (auto) 1.86 1.75 Total Counted Not Reportable Not Reportable Sodium 142 Potassium 4.3 Chloride 106 Carbon Dioxide 27.0 Anion Gap 9 BUN 79 H Creatinine 4.41 H Estim Creat Clear Calc 19.39 Est GFR (MDRD) Af Amer 20 L Est GFR (MDRD) Non-Af 16 L BUN/Creatinine Ratio 17.9 Glucose 147 H Calcium 8.0 L POC Glucose 04/21/18 04/21/18 04/21/18 22:12 16:25 11:53 POC Glucose 198 H 249 H 192 H Discharge Diet: 1800 Calorie Control Diet, Renal Diet Discharge Activity: Return to Normal Activity Call your doctor if you observe: Fever of 101 or Higher, Shortness of breath, Fainting spells, - - lightheadedness. continued hematuria. Home Medications: Medications to take at Discharge Ascorbic Acid [Vitamin C] 1,000 mg PO DAILY 02/21/15 Fluoxetine [Prozac] 20 mg PO DAILY 02/21/15 Loratadine [Claritin] 10 mg PO DAILY 07/08/15 Melatonin 3 mg PO QHS 12/09/15 Insulin Lispro [Humalog Kwikpen] 0 unit SQ TIDCM 08/29/16 Sennosides [Senna] 8.6 mg PO BID 12/29/16 Insulin Lispro [Humalog] 8 unit SQ 0700,1700 12/24/17 Cholecalciferol (Vitamin D3) [Vitamin D3] 5,000 unit PO DAILY 01/09/18 Insulin Glargine [Lantus SoloStar Pen] 14 units SC QHS 02/09/18 Polyethylene Glycol 3350 [Miralax] 17 gm PO 0800,1600 02/09/18 Albuterol Inhaler [Ventolin Hfa] 2 puff INHALATION Q4H PRN PRN 04/20/18 Ammonium Lactate [Amlactin] 1 applic TP BID 04/20/18 Aspirin E.C. [Ecotrin] 81 mg PO DAILY@0800 04/20/18 Atorvastatin Calcium 5 mg PO QHS 04/20/18 Citric AC/Gluconolact/Mag Carb [Renacidin Irrigation Solution] 30 ml IR 0800,1600,199904/20/18 Fluoxetine [Prozac] 10 mg PO DAILY 04/20/18 Fluticasone 0.05% [Flonase Nasal [place]] 2 spray NASAL DAILY 04/20/18 Insulin Glargine,Hum.rec.anlog [Lantus] 14 unit SQ DAILY 04/20/18 Insulin Lispro [Humalog] 4 unit SQ 1100 04/20/18 Ketoconazole 1 applic TP UD 04/20/18 Metoprolol Tartrate 12.5 mg PO BID 04/20/18 Olopatadine HCl [Pataday] 1 drop EACHEYE DAILY 04/20/18 Oxybutynin [Ditropan] 5 mg PO DAILY PRN 04/20/18 Pantoprazole Sodium [Protonix] 40 mg PO DAILY 04/20/18 Polyethylene Glycol 3350 [Miralax] 17 gm PO QHS PRN 04/20/18 Quetiapine Fumarate [Seroquel] 100 mg PO 1700 04/20/18 Quetiapine Fumarate [Seroquel] 200 mg PO 0800,199904/20/18 Ferrous Sulfate 325 mg PO BIDCM #28 tablet 04/22/18 Following Prescrptions Were Given to Patient: Ferrous Sulfate 325 mg PO BIDCM #28 tablet Other Amb Orders: CBC W/Diff, Automated Time Frame: 1 Week, Location: Laboratory Primary Care Physician: Koki Finney MD [Primary Care Provider] - Within 2 Weeks Please Follow Up With: Jose Juan Patel MD When: 1-2 weeks Disposition: Home Minutes spent on discharge:: 32 Patient Condition:: Fair Medical Necessity - Tobacco Use Smoking Status: Never smoker Tobacco Use: Non-smoker Meaningful Use Info Meaningful Use Diagnoses (Choose all that apply): None applicable Code Visit Inpatient E&M: 54583 Disch Hosp
[2018-04-22 10:21] LABS: Bedside Glucose 198 mg/dL (70-110)
[2018-04-22] MEDS: Loratadine 10 MG Tablet PO (11:54)
[2018-04-22] MEDS: Fluticasone 0.05% 1 SPRAY NASAL.SRY 2 SPRAY NASAL (11:55)
[2018-04-22] MEDS: FLUoxetine 10 MG Capsule 30 MG PO (11:56)
[2018-04-22] MEDS: Pantoprazole Sodium 40 MG Tablet PO (11:57)
[2018-04-22] MEDS: Ascorbic Acid 500 MG Tablet 1000 MG PO (11:57)
[2018-04-22] MEDS: Senna Tablet 1 TABLET PO (11:57)
[2018-04-22 11:58] VITALS: BP 140/68; PULSE 94
[2018-04-22] MEDS: Metoprolol Tartrate 25 MG Tablet 12.5 MG PO (11:58)
[2018-04-22 12:10] VITALS: BP 140/68; PULSE 94; RESP 20; TEMP 36.9; O2SAT 92
[2018-04-22] MEDS: Insulin Lispro 100 UNIT/ML INSULN.PEN SC (12:12)
[2018-04-22 12:21] LABS: Bedside Glucose 265 mg/dL (70-110)
== END 2018-04-22 12:39 | disposition home or self-care (01) | DRG 468 ==
LOC: ED 11:49 → MS3 16:07
PROVIDERS: Emergency Medicine; Admitting Provider Family Medicine; Emergency Provider Emergency Medicine; Family Provider Internal Medicine; PCP Internal Medicine
DX: R31.0 Gross hematuria (principal); E11.22 Type 2 diabetes mellitus with diabetic chronic kidney disease; K56.7 Ileus, unspecified; E11.319 Type 2 diabetes mellitus with unspecified diabetic retinopathy without macular edema; I12.0 Hypertensive chronic kidney disease with stage 5 chronic kidney disease or end stage renal disease; D62 Acute posthemorrhagic anemia; Z79.4 Long term (current) use of insulin; R55 Syncope and collapse; F91.9 Conduct disorder, unspecified; N18.6 End stage renal disease; Z23 Encounter for immunization; Z86.718 Personal history of other venous thrombosis and embolism; Z93.59 Other cystostomy status
CPT/HCPCS: 36415; 74176; 80048; 80053; 81001; 82962; 83605; 85014; 85018; 85025; 85027; 85610; 85730; 87077; 87086; 87088; 87186; 93005; 99285; J7030; 90686; A4216; J2405

== ENCOUNTER 2018-05-10 19:21 | Emergency (ER) | payer MEDICAID, SELFPAY ==
[2018-05-10 19:23] VITALS: BP 151/91; PULSE 87; RESP 14; TEMP 37.1; O2SAT 98; BMI 39.4
[2018-05-10 20:47] LABS: Absolute Lymphocyte Count 1.55 X10^3/ul (0.83-4.51); Absolute Neutrophil Count 3.9 X10^3/uL (2.0-7.7); Basophil# 0.02 X10^3/uL; Basophil% 0.3 % (0-1); Eosinophil# 0.17 X10^3/uL; Eosinophils% 2.7 % (0-5); Lymphocyte # 1.55 X10^3/ul (4.0); Lymphocyte % 24.4 % (19-41); Mean Corp Hgb Conc 31.3 g/gl (32-36); Mean Corpuscular Hgb 31.9 pg (27.0-32.0); Mean Corpuscular Volume 102.2 fL (80-94); Mean Platelet Vol. 10.6 fl (6.2-12.0); Monocyte# 0.67 X10^3/uL; Monocyte% 10.5 % (0-10); Neutrophil # 3.94 X10^3/uL (2.7-7.7); Neutrophil % 61.9 % (47-70); POSITIVE COUNT NO; POSITIVE DIFFERENTIAL NO; POSITIVE MORPHOLOGY NO; Platelet Count 215 K/mm3 (150-450); RBC Distribution Width CV 14.6 % (11.6-14.6); RBC Distribution Width SD 54.8 fl (35.1-43.9); Red Blood Count 3.13 M/mm3 (4.6-6.2); White Blood Count 6.4 K/mm3 (4.4-11.0)
[2018-05-10 20:54] LABS: Anion Gap 10 (5-15); BUN 68 mg/dL (7-18); BUN/Creat Ratio 16.5 RATIO (10-20); Calcium,Total 7.9 mg/dL (8.5-10.1); Chloride 103 mmol/L (98-107); Creatinine, Serum 4.12 mg/dL (0.70-1.30); EST Glomerular Filtration Rate 18 mL/min (>60); Est Glom Filt Rate - Afr Amer 21 mL/min (>60); Estimated Creatinine Clearance 20.76 ml/min; Glucose 205 mg/dL (74-106); Potassium 4.8 mmol/L (3.5-5.1); Sodium Level 140 mmol/L (136-145)
[2018-05-10 21:19] LABS: Mucous, Urine 0 SEEN /hpf (<or=2+); Squamous Epithelial Cells - UA 0 SEEN /hpf (0-5)
[2018-05-10 21:21] LABS: Color, Urine Yellow (Yellow); Glucose, Dipstick 250 mg/dl (Normal); Ketone-Dipstick Negative (Negative); Leukocyte Esterase-Dipstick 500 /ul (Negative); Nitrite-Dipstick Negative (Negative); Occult Blood-Urine 250 /ul (Negative); Protein-Dipstick 30 mg/dl (Negative); Specific Gravity, Urine 1.005 (1.002-1.030); Urine Bilirubin Dipstick Negative (Negative); Urine Clarity Sl. Cloudy (Clear); Urine Urobilinogen Normal (Normal)
[2018-05-10 21:38] LABS: Red Blood Cells-Urine 0-5 SEEN /hpf (0-5); White Blood Cells >100 SEEN /hpf (0-5)
[2018-05-10 21:39] LABS: Bacteria RARE /hpf (None Seen)
--- NOTE | 2018-05-10 22:19 | ED.DCSUM_ITS ---
- ER Visit Summary Date of Service: 05/10/18 Chief Complaint: Patient presents because of gross blood in [place] History of Present Illness: The patient is a 38 M who presents because of gross blood in [place]. He has a suprapubic catheter. He denies trauma. He denies fever, chills or sweats. He denies nausea or vomiting. He denies abdominal pain or flank pain. He has no other complaints. He was admitted for gross hematuria approximately 2 weeks ago. Physical Examination: Vital signs noted and unremarkable blood pressure 151/91. HEENT exam is unremarkable. Heart is regular without murmur, gallop or rub. S1 and S2 are normal. Lungs are clear to auscultation with good movement of air bilaterally. Abdomen soft nontender with normal bowel sounds. Suprapubic catheter site without erythema, warmth, induration or drainage. There is gross blood noted in the [place]. There is no CVA tenderness noted. Test Results: White count is unremarkable. H&H 10.0 and 31.0. This is improved from April 22. BUN and creatinine are 68 and 4.12. April 22 BUN and creatinine are 79 and 4.14. Microscopic reveals 0-5 RBCs, greater than 100 WBCs and bacteria. [place] reveals gross blood question accuracy of urinalysis. Since there is bacteria pyuria will treat with antibiotics. He received his first dose in the emergency department. Emergency Department Course and Treatment: CBC, BMP and UA to assess white coun t, H&H and renal function. Treatment Plan: Bactrim DS for 7 days and follow-up with urology Disposition: Discharge to home Impression: 1. Gross hematuria 2. Urinary tract infection This note was generated with [employer] dictation software. It may contain incorrect words, spelling, and punctuation that were not noted in review of the chart prior to signing ED Disposition - Plan for ED Patient: Disposition: Home or Assisted Living Chief Complaint: [place] C/O Instructions: Discharge Instructions: Caring for Your Suprapubic Catheter, ED Hematuria, ED UTI Cystitis Male Prescriptions: Smz/Tmp Ds [Bactrim Ds] 1 tab PO BID #14 tab Referrals: Koki Finney MD [Primary Care Provider] - 3-5 Days if not improving
[2018-05-10] MEDS: Smz/Tmp Ds Tablet 1 TABLET PO (22:34)
[2018-05-10 22:41] VITALS: BP 128/83; PULSE 91; RESP 16
== END 2018-05-10 22:50 | disposition home or self-care (01) ==
PROVIDERS: Emergency Provider Emergency Medicine; Family Provider Internal Medicine; PCP Internal Medicine
DX: N39.0 Urinary tract infection, site not specified (principal); B96.89 Other specified bacterial agents as the cause of diseases classified elsewhere; R31.0 Gross hematuria; E11.22 Type 2 diabetes mellitus with diabetic chronic kidney disease; N18.6 End stage renal disease; Z99.2 Dependence on renal dialysis; F79 Unspecified intellectual disabilities; Z79.4 Long term (current) use of insulin; Z79.82 Long term (current) use of aspirin; Z79.899 Other long term (current) drug therapy
CPT/HCPCS: 80048; 81001; 85025; 87077; 87086; 87088; 87186; 99284; A4216

== ENCOUNTER 2018-05-18 05:41 | Emergency (ER) | payer MEDICAID, SELFPAY ==
[2018-05-18 05:42] VITALS: BP 162/84; PULSE 95; RESP 18; TEMP 36.8; O2SAT 98; BMI 40.0
[2018-05-18 06:21] LABS: Absolute Neutrophil Count 4.4 X10^3/uL (2.0-7.7); Basophil# 0.01 X10^3/uL; Basophil% 0.2 % (0-1); Eosinophil# 0.22 X10^3/uL; Eosinophils% 3.6 % (0-5); Hematocrit 32.9 % (40-54); Hemoglobin 10.5 g/dl (13.0-16.5); Lymphocyte % 16.2 % (19-41); Mean Corp Hgb Conc 31.9 g/gl (32-36); Mean Corpuscular Hgb 31.9 pg (27.0-32.0); Mean Platelet Vol. 10.1 fl (6.2-12.0); Monocyte# 0.54 X10^3/uL; Monocyte% 8.7 % (0-10); Neutrophil # 4.41 X10^3/uL (2.7-7.7); Neutrophil % 71.3 % (47-70); Platelet Count 193 K/mm3 (150-450); RBC Distribution Width SD 51.6 fl (35.1-43.9); Red Blood Count 3.29 M/mm3 (4.6-6.2); White Blood Count 6.2 K/mm3 (4.4-11.0)
[2018-05-18 06:25] LABS: POSITIVE COUNT NO; POSITIVE DIFFERENTIAL NO; POSITIVE MORPHOLOGY NO
[2018-05-18 06:26] LABS: Mucous, Urine 0 SEEN /hpf (<or=2+)
[2018-05-18 06:31] LABS: Anion Gap 10 (5-15); BUN 76 mg/dL (7-18); BUN/Creat Ratio 15.3 RATIO (10-20); Calcium,Total 8.3 mg/dL (8.5-10.1); Chloride 106 mmol/L (98-107); Creatinine, Serum 4.98 mg/dL (0.70-1.30); EST Glomerular Filtration Rate 14 mL/min (>60); Est Glom Filt Rate - Afr Amer 17 mL/min (>60); Estimated Creatinine Clearance 17.17 ml/min; Glucose 172 mg/dL (74-106); Potassium 5.5 mmol/L (3.5-5.1); Sodium Level 142 mmol/L (136-145)
[2018-05-18 06:33] LABS: Color, Urine Straw (Yellow); Glucose, Dipstick 100 mg/dl (Normal); Ketone-Dipstick Negative (Negative); Leukocyte Esterase-Dipstick 500 /ul (Negative); Nitrite-Dipstick Negative (Negative); Occult Blood-Urine 150 /ul (Negative); Protein-Dipstick 30 mg/dl (Negative); Urine Bilirubin Dipstick Negative (Negative); Urine Clarity Sl. Cloudy (Clear); Urine Urobilinogen Normal (Normal)
--- NOTE | 2018-05-18 06:34 | NURSING ---
DR. CHRISTIANSEN IS AWARE OF PATIENT'S SUPER PUBIC IRRIGATION STATUS OF PRODUCING POSITIVE RESULTS.
[2018-05-18 06:39] LABS: Bacteria 1+ /hpf (None Seen); Red Blood Cells-Urine 0-5 SEEN /hpf (0-5); Squamous Epithelial Cells - UA 0-5 SEEN /hpf (0-5); White Blood Cells 25-50 SEEN /hpf (0-5)
--- NOTE | 2018-05-18 06:55 | ED.VISSUMM ---
- ER Visit Summary Date of Service: 05/18/18 Chief Complaint: Hematuria History of Present Illness: The patient is a 38 M who presents with hematuria. This been occurring intermittently over the past week. He does have a prior history of hematuria which she was hospitalized for. They irrigated it at the facility tonight and it seemed to be falling however it again became clogged and after through irrigation attempts was not draining so he was sent here. Between when transportation was called and the patient arrived here his catheter again began draining and he had greater than 1 L in the bag on arrival here. He complains of some mild nausea but really no other complaints. Physical Examination: Afebrile hypertensive but vitals otherwise unremarkable Heart regular rate and rhythm Lungs clear Abdomen soft nontender nondistended suprapubic catheter site clean and dry Alert Test Results: CBC notable for hemoglobin 10.5. Chemistries notable for potassium 5.5, BUN 76, creatinine of 4.98 which does appear to be slightly elevated from baseline. Urinalysis shows 0-5 RBCs there is 25-50 WBCs 1+ bacteria but this was taken from the bag. Emergency Department Course and Treatment: Patient's catheter is easily draining and easily irrigated and flushed. His urine does not show any signs of active bleeding. This does show pyuria but was not a sterile specimen. He is currently being treated for UTI with antibiotics regardless. His potassium is slightly elevated and creatinine slightly elevated baseline consistent with dehydration. We will give the patient a liter of IV fluids and just redraw to recheck potassium. If normalized I believe the patient can be discharged home. Treatment Plan: [] Disposition: Discharge Impression: Hematuria Dehydration This note was generated with [employer] dictation software. It may contain incorrect words, spelling, and punctuation that were not noted in review of the chart prior to signing ED Disposition - Plan for ED Patient: Chief Complaint: Complaint Referrals: Koki Finney MD [Primary Care Provider] -
--- NOTE | 2018-05-18 06:57 | ED.DEP ---
ED Disposition - Plan for ED Patient: Chief Complaint: Complaint Instructions: ED Hematuria Referrals: Koki Finney MD [Primary Care Provider] - Jose Juan Patel MD [STAFF PHYSICIAN] -
[2018-05-18] MEDS: 0.9% Normal Saline 1,000 ML 999 ML IV (06:58)
[2018-05-18 08:29] LABS: Hemoglobin A1c 7.4 % (4.2-6.3)
[2018-05-18 09:14] LABS: Anion Gap 8 (5-15); BUN 76 mg/dL (7-18); BUN/Creat Ratio 16.1 RATIO (10-20); Calcium,Total 8.2 mg/dL (8.5-10.1); Chloride 107 mmol/L (98-107); Creatinine, Serum 4.73 mg/dL (0.70-1.30); EST Glomerular Filtration Rate 15 mL/min (>60); Est Glom Filt Rate - Afr Amer 18 mL/min (>60); Estimated Creatinine Clearance 18.08 ml/min; Glucose 146 mg/dL (74-106); Potassium 5.2 mmol/L (3.5-5.1); Sodium Level 143 mmol/L (136-145)
[2018-05-18 10:25] VITALS: BP 150/78; PULSE 78; RESP 18; O2SAT 98
--- OUTSIDE RECORDS SUMMARY | 2018-07-13 00:51 | XMS RPT_ITS ---
:1980 Author Organization OHIP Support Name Relationship Address Phone TOSHIA MORSE Unavailable Unavailable + [place] [address] DANIELE, CHERISE Unavailable [address] + [address] [place] [address] [facility] Unavailable [address] + [place] [address] TOSHIA MORSE Unavailable Unavailable + [place] [address] DANIELE, CHERISE Unavailable [address] + [address] [place] [address] [facility] Unavailable [address] + [place] [address] TOSHIA MORSE Unavailable . + [place] [address] DANIELE, CHERISE Unavailable [address] + [address] [place] [address] [facility] Unavailable [address] + [place] [address] MINI, TOSHIA Unavailable Unavailable + [place] [address] DANIELE, CHERISE Unavailable [address] + [address] [place] [address] [facility] Unavailable [address] + [place] [address] MISAEL MELARA Unavailable Unavailable + JOAQUÍN MORSELE Unavailable . + [place] [address] DANIELE, CHERISE Unavailable [address] + [address] [place] [address] [facility] Unavailable [address] + [place] [address] KINTIGH, TOSHIA Unavailable . + [place] [address] DANIELE, CHERISE Unavailable [address] + [address] [place] [address] [facility] Unavailable [address] + [place] [address] KINTIGH, TOSHIA Unavailable Unavailable + [place] [address] DANIELE, CHERISE Unavailable [address] + [address] [place] [address] [facility] Unavailable [address] + [place] [address] KINTIGH, TOSHIA Unavailable Unavailable + [place] [address] DANIELE, CHERISE Unavailable [address] + [address] [place] [address] [facility] Unavailable [address] + [place] [address] KINTIGH, TOSHIA Unavailable . + [place] [address] DANIELE, CHERISE Unavailable [address] + [address] [place] [address] [facility] Unavailable [address] + [place] [address] KINTIGH, TOSHIA Unavailable Unavailable + [place] [address] DANIELE, CHERISE Unavailable [address] + [address] [place] [address] [facility] Unavailable [address] + [place] [address] KINTIGH, TOSHIA Unavailable Unavailable + [place] [address] DANIELE, CHERISE Unavailable [address] + [address] [place] [address] [facility] Unavailable [address] + [place] [address] KINTIGH, TOSHIA Unavailable . + [place] [address] DANIELE, CHERISE Unavailable [address] + [address] [place] [address] [facility] Unavailable [address] + [place] [address] KINTIGH, TOSHIA Unavailable . + [place] [address] DANIELE, CHERISE Unavailable [address] + [address] [place] [address] [facility] Unavailable [address] + [place] [address] KINTIGH, TOSHIA Unavailable . + [place] [address] DANIELE, CHERISE Unavailable [address] + [address] [place] [address] [facility] Unavailable [address] + [place] [address] KINTIGH, TOSHIA Unavailable . + [place] [address] DANIELE, CHERISE Unavailable [address] + [address] [place] [address] [facility] Unavailable [address] + [place] [address] KINTIGH, TOSHIA Unavailable . + [place] [address] DANIELE, CHERISE Unavailable [address] + [address] [place] [address] [facility] Unavailable [address] + [place] [address] KINTIGH, TOSHIA Unavailable Unavailable + [place] [address] DANIELE, CHERISE Unavailable [address] + [address] [place] [address] [facility] Unavailable [address] + [place] [address] KINTIGH, TOSHIA Unavailable Unavailable + [place] [address] DANIELE, CHERISE Unavailable [address] + [address] [place] [address] [facility] Unavailable [address] + [place] [address] KINTIGH, TOSHIA Unavailable Unavailable + [place] [address] DANIELE, CHERISE Unavailable [address] + [address] [place] [address] [facility] Unavailable [address] + [place] [address] KINTIGH, TOSHIA Unavailable Unavailable + [place] [address] DANIELE, CHERISE Unavailable [address] + [address] [place] [address] [facility] Unavailable [address] + [place] [address] KINTIGH, TOSHIA Unavailable . + [place] [address] DANIELE, CHERISE Unavailable [address] + [address] [place] [address] [facility] Unavailable [address] + [place] [address] KINTIGH, TOSHIA Unavailable Unavailable + [place] [address] DANIELE, CHERISE Unavailable [address] + [address] [place] [address] [facility] Unavailable [address] + [place] [address] KINTIGH, TOSHIA Unavailable Unavailable + [place] [address] DANIELE, CHERISE Unavailable [address] + [address] [place] [address] [facility] Unavailable [address] + [place] [address] KINTIGH, TOSHIA Unavailable Unavailable + [place] [address] DANIELE, CHERISE Unavailable [address] + [address] [place] [address] [facility] Unavailable [address] + [place] [address] MINI TOSHIA Unavailable Unavailable + [place] [address] DANIELE, CHERISE Unavailable [address] + [address] [place] [address] [facility] Unavailable [address] + [place] [address] MINI TOSHIA Unavailable . + [place] [address] DANIELE, CHERISE Unavailable [address] + [address] [place] [address] [facility] Unavailable [address] + [place] [address] MINI TOSHIA Unavailable . + [place] [address] [facility] Unavailable [address] + [address] [place] [address] [facility] Unavailable [address] + [place] [address] MINI TOSHIA Unavailable Unavailable [phone] [place] [address] [facility] Unavailable [address] [phone] [address] [place] [address] [facility] Unavailable [address] + [place] [address] MINI TOSHIA Unavailable Unavailable [phone] [place] [address] [facility] Unavailable [address] [phone] [address] [place] [address] [facility] Unavailable [address] + [place] [address] MINI TOSHIA Unavailable Unavailable [phone] [place] [address] [facility] Unavailable [address] [phone] [place] [address] [facility] Unavailable [address] + [place] [address] TINIC, GALE Unavailable Unavailable + TINIC, GALE Unavailable Unavailable + TINIC, GALE Unavailable Unavailable + TINIC, GALE Unavailable Unavailable + MINI TOSHIA Unavailable Unavailable [phone] [place] [address] [facility] Unavailable [address] [phone] [place] [address] [facility] Unavailable [address] + [place] [address] TINIC, GALE Unavailable Unavailable + [facility] Unavailable [address] + [place] [address] TINIC, GALE Unavailable Unavailable + MINI TOSHIA Unavailable Unavailable [phone] [place] [address] [facility] Unavailable [address] [phone] [place] [address] [facility] Unavailable [address] + [place] [address] D Unavailable Unavailable Unavailable LUCIAH TOSHIA Unavailable . [phone] [place] . [facility] Unavailable [address] [phone] [place] [address] D Unavailable Unavailable Unavailable LUCIAH, TOSHIA Unavailable . [phone] [place] [facility] Unavailable [address] [phone] [address] [place] [address] Care Team Providers Name Role Phone FREDDY ALICEA Admitting Unavailable KRISTOFER WEBB Attending Unavailable RANDY HARPER MD Consulting Unavailable EDUARDO NY., DR. ESCAMILLA Primary Care Unavailable ADITI SPANN MD Consulting Unavailable BERNICE [place]., DR. CAROLANN Lui Consulting Unavailable WILDA POLLARD MD Consulting Unavailable ONDINA ERICKSON MD Consulting Unavailable NADER SHEPPARD MD Consulting Unavailable JOSE JUAN LOPEZ MD Consulting Unavailable EDUARDO NY., DR. ESCAMILLA Consulting Unavailable ONDINA ERICKSON MD Attending Unavailable EDUARDO NY., DR. ESCAMILLA Primary Care Unavailable EDUARDO NY., DR. ESCAMILLA Referring Unavailable ONDINA ERICKSON MD Attending Dwayne CLARK MD., DR. ESCAMILLA Primary Care Unavailable ONDINA ERICKSON MD Attending Unavailable EDUARDO [place]., DR. ESCAMILLA Primary Care Unavailable JENIFER BRANTLEY, DR. KELVIN Ferrell Attending Dwayne CLARK MD., DR. ESCAMILLA Referring Dwayne CLARK MD., DR. ESCAMILLA Primary Care Unavailable GUILLE GABRIEL MD Admitting Unavailable EDUARDO [place]., DR. ESCAMILLA Primary Care Unavailable NIVIA ENGLAND MD Attending Unavailable LETY STOUT MD Consulting Unavailable NADER SHEPPARD MD Consulting Unavailable HUGH YI MD Consulting Unavailable TALYA MARTINEZ MD Consulting Unavailable SELVIN BALLARD MD Consulting Unavailable TERE ESPARZA DO Consulting Unavailable SRINIVASA LUCERO MD Consulting Unavailable CASSY GAYTAN Consulting Unavailable TALYA SANZ DO Consulting Unavailable ADELSO CLARKE MD Consulting Unavailable CHRISTA GAN MD Attending Unavailable EDUARDO SAENZ, DR. ESCAMILLA Referring Unavailable EDUARDO SAENZ, DR. ESCAMILLA Primary Care Unavailable KELLY DAVENPORT (PA) Attending Unavailable FRANCINE CLARK Referring Unavailable CORINNE MORAN (SUPERVISOR COLOR PA[employer] MIXING) Attending Unavailable GEORGI LEE (PERSONNEL MONITOR) Attending Unavailable IGNACIO OLMEDO Referring Unavailable RONN GALLO Attending Unavailable LUIS FELICIANO Attending Unavailable KELBY HUDDLESTON Attending Unavailable GEORGI LEE (PERSONNEL MONITOR) Attending Unavailable LUIS FELICIANO Attending Unavailable LUIS FELICIANO Referring Unavailable FRANCINE CLARK Referring Unavailable MARK GUNN (SUPERVISOR COLOR PASTE MIXING) Attending Unavailable GANTA, RONN Referring Unavailable TALAMPAS, FRANCINE D Attending Unavailable GEORGI LEE (PERSONNEL MONITOR) Attending Unavailable NAYE NUÑEZ (WELT SLASHER) Attending Unavailable Owens PA-C, Taylor Attending Unavailable Talampas, Francine Referring Unavailable Owens PA-C, Taylor Attending Unavailable Owens PA-C, Taylor Referring Unavailable Talampas, Francine Primary Care Unavailable Talampas, Francine Primary Care Unavailable Radha Velasco Attending Unavailable Talampas, Francine Primary Care Unavailable Jason Bal Attending Unavailable Talampas, Francine Primary Care Unavailable UngMarlon faust Attending Unavailable Eribul Hugh Attending Unavailable Owens PA-C, Taylor Referring Unavailable Talampas, Francine Primary Care Unavailable Owens PA-C, Taylor Consulting Unavailable Christian, Jayaprakash Attending Unavailable Talampas, Francine Primary Care Unavailable Christian, Jayaprakash Referring Unavailable Talampas, Francine Attending Unavailable Talampas, Francine Referring Unavailable Talampas, Francine Primary Care Unavailable Jose Juan Lopez Attending Unavailable JorgeJose Juan Referring Unavailable Talampas, Francine Primary Care Unavailable Claudia Feliz Consulting Unavailable Talampas, Francine Primary Care Unavailable Radha Velasco Attending Unavailable Talampas, Francine Primary Care Unavailable UngurMarlon Attending Unavailable Owens PA-C, Taylor Attending Unavailable Talampas, Francine Referring Unavailable Talampas, Francine Primary Care Unavailable Hugh Abreu Attending Unavailable Cebul, Hugh Referring Unavailable Talampas, Francine Primary Care Unavailable Talampas, Francine Primary Care Unavailable Harshad Patel Attending Unavailable JorgeJose Juan Attending Unavailable JorgeJose Juan Referring Unavailable Talampas, Francine Primary Care Unavailable Cebul Hugh Attending Unavailable Cebul, Hugh Attending Unavailable Talampas, Francine Referring Unavailable Talampas, Francine Primary Care Unavailable Christian, Jayaprakash Attending Unavailable Christian, Jayaprakash Referring Unavailable Talampas, Francine Primary Care Unavailable Cebul Hugh Attending Unavailable Cebul, Hugh Referring Unavailable Talampas, Francine Primary Care Unavailable Cebul Hugh Attending Unavailable Cebul, Hugh Referring Unavailable Talampas, Francine Primary Care Unavailable Cebul, Hugh Consulting Unavailable Owens PA-C, Taylor Attending Unavailable Talampas, Francine Referring Unavailable Talampas, Francine Primary Care Unavailable Graciela HODGES, Taylor Attending Unavailable Talampas, Francine Referring Unavailable Talampas, Francine Primary Care Unavailable Christian, Jayaprakash Attending Unavailable Christian, Jayaprakash Referring Unavailable Talampas, Francine Primary Care Unavailable Manish Cuello Attending Unavailable Cebul, Hugh Referring Unavailable Taylor Owens PA-C Attending Unavailable Talampas, Francine Referring Unavailable CebulHugh Attending Unavailable Cebul, Hugh Referring Unavailable Talampas, Francine Primary Care Unavailable Talampas, Francine Primary Care Unavailable Kotsonis, Mayco F Admitting Unavailable Christian, Jayaprakash Consulting Unavailable Yassine Baer Attending Unavailable JorgeJose JuanDavey Consulting Unavailable Kotsonis, Mayco F Admitting Unavailable Talampas, Francine Primary Care Unavailable Kotsonis, Mayco F Consulting Unavailable Kotsonis Mayco F Attending Unavailable Kotsonis, Mayco F Admitting Unavailable MargaretpperiErinic Attending Unavailable Talampas, Francine Primary Care Unavailable Christian, Jayaprakash Consulting Unavailable Jopperi, Yassine Consulting Unavailable Kotsonis, Mayco F Admitting Unavailable JopperiErinic Attending Unavailable Talampas, Francine Primary Care Unavailable Christian, Jayaprakash Consulting Unavailable Jorge, Davey Consulting Unavailable Jopperi, Yassine Consulting Unavailable Hugh Abreu Attending Unavailable Talampas, Francine Referring Unavailable Talampas, Francine Primary Care Unavailable Gerry Rios Attending Unavailable Hugh Abreu Attending Unavailable Talampas, Francine Primary Care Unavailable Jason Bal Attending Unavailable PROBLEMS PROBLEMS DATE TYPE CONDITION / CODE ATTENDING STATUS SOURCE 05/29/2018 Unknown R52 - Pain, Hugh Abreu Active [place] unspecified / Community R52(ICD-10) Hospital Repository 05/09/2018 Active Type 1 diabetes NA Active [facility] mellitus with other [facility] diabetic kidney [place] complication / Repository E10.29(ICD-10) 05/09/2018 Active Other general NA Active [facility] symptoms and signs / [facility] R68.89(ICD-10) [place] Repository 05/09/2018 Active Hyperlipidemia, NA Active [place] unspecified / [facility] E78.5(ICD-10) [place] Repository 04/26/2018 Active Anemia, unspecified NA Active [place] / D64.9(ICD-10) Clinic Main [place] Repository 04/27/2018 Unknown R31.0 - Yassine Cancino Active [place] hematuria / Community R31.0(ICD-10) Hospital Repository 04/18/2018 Unknown G89.18 - Other acute Hugh Abreu Active [place] postprocedural pain Community / G89.18(ICD-10) Hospital Repository 05/17/2018 Unknown Z45.2 - Encounter Hugh Abreu Active [place] for adjustment and Community management of Hospital vascular access Repository device / Z45.2(ICD-10) 03/08/2018 Unknown N18.4 - Chronic Christian, Active [place] kidney disease, [facility] stage 4 (severe) / Hospital N18.4(ICD-10) Repository 03/16/2018 Unknown Z01.810 - Encounter Manish Cuello Active [place] for preprocedural [facility] cardiovascular [facility] examination / Repository Z01.810(ICD-10) 02/06/2018 Unknown E87.5 - Hyperkalemia Christian, Active [place] / E87.5(ICD-10) [facility] Hospital Repository 01/12/2018 Unknown N18.5 - Chronic CebuHugh wagner Active [place] kidney disease, [facility] stage 5 / Hospital N18.5(ICD-10) Repository 08/01/2017 Active Acute embolism and NA Active [place] thrombosis of left [facility] axillary vein / [place] I82.A12(ICD-10) Repository 12/15/2015 Active Chronic kidney NA Active [place] disease, stage 4 [facility] (severe) / [place] N18.4(ICD-10) Repository 11/10/2017 Active Type 1 diabetes NA Active [facility] mellitus with other [facility] specified [place] complication / Repository E10.69(ICD-10) 11/10/2017 Active Type 1 diabetes NA Active [facility] mellitus with [facility] hyperglycemia / [place] E10.65(ICD-10) Repository 11/10/2017 Active 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 Active [facility] (current) drug [facility] therapy / [place] Z79.899(ICD-10) Repository 11/10/2017 Active Type 1 diabetes NA Active [facility] mellitus with [facility] diabetic chronic [place] kidney disease / Repository E10.22(ICD-10) 11/10/2017 Active Chronic kidney NA Active [place] disease, stage 3 [facility] (moderate) / [place] N18.3(ICD-10) Repository 11/10/2017 Active Hydronephrosis with NA Active [place] ureteral stricture, [facility] not elsewhere [place] classified / Repository N13.1(ICD-10) 11/10/2017 Active Unspecified NA Active [place] hydronephrosis / [facility] N13.30(ICD-10) [place] Repository 11/10/2017 Active Acute kidney NA Active [place] failure, unspecified [facility] / N17.9(ICD-10) [place] Repository 11/10/2017 Active Sepsis due to NA Active [place] Serratia / [facility] A41.53(ICD-10) [place] Repository 11/10/2017 Active Severe sepsis NA Active [place] without septic shock [facility] / R65.20(ICD-10) [place] Repository 11/10/2017 Active Urinary tract NA Active [place] infection, site not [facility] specified / [place] N39.0(ICD-10) Repository 11/10/2017 Active Hematuria, NA Active [place] unspecified / [facility] R31.9(ICD-10) [place] Repository 11/10/2017 Active Pneumonia, NA Active [place] unspecified organism [facility] / J18.9(ICD-10) [place] Repository 07/31/2017 Active Unknown / OLDER, CORINNE (SUPERVISOR COLOR PASTE MIXING) Active [place] UNK(Unknown) Clinic Main [place] Repository 06/18/2017 Unknown N39.0 - Urinary Mally, Jason Active [place] tract infection, Community site not specified / Hospital N39.0(ICD-10) Repository 06/16/2017 Active Unspecified symptoms NA Active [place] and signs involving [facility] the genitourinary [place] system / Repository R39.9(ICD-10) 06/16/2017 Active Gross hematuria / NA Active [place] R31.0(ICD-10) Clinic Main [place] Repository 06/16/2017 Active Low back pain / NA Active [place] M54.5(ICD-10) [facility] Main [place] Repository PROCEDURES PROCEDURES No Procedure Records FoundRESULTS RESULTS CNOV Observed: 06/04/2018 Status: COMPLETED Source: [facility] 10:55 AM [facility] REPOSITORY Office Visit (END[facility]) JARON MORSE ([id number]) 1980 M Date Time Provider Department 06/04/18 10:55 AM NAYE NUÑEZ ([place]) [facility] During your visit today, we recorded the following information about you: Pulse Blood pressure Weight Height 91/minute 141/88 107 kg 1.638 m Naye Nuñez APRN.SUPERVISOR [employer] PA[employer] MIXING 06/04/2018 11:45 AM Signed Reason for Consultation: DM Type 1 Referring Physician: SELF HISTORY OF PRESENT ILLNESS Mr. Morse is a 38 year old male presenting here today for a follow up of DM Type 1. As I recall, he was initially diagnosed with diabetes age 8. Previous patient of Dr. Feliciano; LV 03/05/2018 A1C 6.5 on 05/09/2018 Lives with [place] [facility] ([employer]). Here with an employee of [employer]. Administers his own insulin. No on pureed diet Follows with [facility]. ? Known complications include: hyperlipidemia and nephropathy/CKD ? Exacerbating factors include: obesity ? Current diabetes regimen is as follows: 1. lantus 14 units AM and 10 units PM 2. Humalog plus SS 1 SUPPLEMENTAL INSULIN If Blood Glucose (mg/dL) is < 150 Add 0 units 151-200 Add 1 unit 201-250 Add 2 units 251-300 Add 3 units 301-350 Add 4 units 351-400 Add 5 units 400-450 Add 6 units 451-500 Add 7 units and call if not improving. he is checking his blood glucose 4 times daily. he does bring a log book today for review. ? LDE Blood Sugar Frequency: ? FBS 217, 83, 220 ? AcL 343, 282 ? acS 299, 309, 362, 266, 86 ? HS 351, 282, 334 ? 1 AM 223, 149, 144 ? Hypoglycemia frequency: occasional; rarely below 70 but feels shaky at 100 or less ? Hypoglycemia awareness: Yes Regarding symptoms of hypoglycemia, he is is not experiencing any symptoms such as polyuria, polydipsia, nocturia or rapid weight loss or blurry vision, Overall, the patient has no acute complaints at this time. PAST MEDICAL HISTORY Diagnosis Date - Acute deep vein thrombosis (DVT) of right upper extremity (HCC) 03/19/15 Diagnosed during hospital admission; coumadin started - Acute embolism and thrombosis of deep vein of right upper extremity (HCC) 04/09/2015 - Acute gastritis without mention of hemorrhage 08/21/2012 - Allergic rhinitis - Anemia 03/07/2015 - Attention deficit disorder with hyperactivity(314.01) - Chronic renal failure Dr. 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 - Hand fracture 07/2012 right - Hemorrhage of gastrointestinal tract, unspecified 08/21/2012 - Hypernatremia 03/07/2015 - Incisional infection 02/04/16 - Nocturnal enuresis 04/28/2005 - OTHER MENTAL RETARDATION - MILD 02/07/2005 - Presence of suprapubic catheter ([facility]) Dr. Frias - Retention of urine, unspecified 08/20/2007 - Type I (juvenile type) diabetes mellitus without mention of complication, not stated as uncontrolled 02/04/2005 Dr. Olmedo PAST SURGICAL HISTORY Procedure Laterality Date - APPENDECTOMY 2000 - AV FUSE, UPPR ARM, CEPHALIC 12/17/15 Transposition left upper arm cephalic vein to brachial artery arteriovenous fistula creation - COLONOSCOP W/ OR W/O BRSH SPEC 12/04/14 decompression for pseudoobstruction - COLONOSCOPY 08/21/2012 and EGD - EGD W/REM FB STOMACH/DUOD 01/02/2017 removal of PEG tube with EGD to remove fragment - EGD W/REM FB STOMACH/DUOD 12/2016 - IR VASCULAR ACCESS TEAM PICC REPOSITION 04/04/2015 - MIDLINE INSERTION/CONSULT 03/03/2015 - PAST SURGICAL HISTORY OF Laparotomy - PAST SURGICAL HISTORY OF 01/22/2015 negative exploratory laparotomy for pneumatosis intestinalis high grade bowel obstruction - PICC LINE INSERT/CONSULT 04/02/2015 - PICC LINE INSERT/CONSULT 04/03/2015 - SUPRAPUBIC CATHETER FAMILY HISTORY Problem Relation Age of Onset - other (unknown) Other - Diabetes Father Diabetic, unsure of which type, did not want to provide additional FH details. Social History Marital status: Single Spouse name: Years of education: Number of children: 0 Occupational History Occupation Employer Comment DISABLED Social History Main Topics Smoking status: Never Smoker Smokeless tobacco: Never Used Alcohol use: No Drug use: No Sexual activity: No Social History Narrative Patient lives in a [facility] with 24 hour supervision. He has multiple behavioral problems. Allergies As of Date: 06/04/2018 Allergen Noted Reaction SEASONAL ALLERGIES 12/03/2012 Other: See Comments Fully Assessed 06/04/2018 Current Outpatient Prescriptions: acetaminophen (TYLENOL ARTHRITIS PAIN) 650 mg CR tablet Take 1 tablet by mouth every 8 hours as needed. Disp: 30 tablet Rfl: 5 albuterol HFA (PROVENTIL HFA, VENTOLIN HFA) 90 mcg/actuation inhaler Inhale 2 Puffs as instructed every 4 hours as needed for Wheezing/Shortness of Breath. Disp: 1 Inhaler Rfl: 1 aluminum-magnesium hydroxide-simethicone (RULOX) 200-200-20 mg/5 mL suspension Take 30 mL by mouth every 6 hours as needed. Disp: 150 mL Rfl: 1 ammonium lactate (LAC-HYDRIN) 12 % cream Apply 1 application to affected area twice daily. Disp: 385 g Rfl: 3 ammonium lactate (LAC-HYDRIN) 12 % lotion APPLY TO AFFECTED AREAS TWICE DAILY. APPLY TO FEET AND LOWER LEGS Disp: 226 g Rfl: 2 Ascorbic Acid (VITAMIN C) 1,000 mg tablet TAKE (1) TABLET BY MOUTH ONCE DAILY. Disp: 30 tablet Rfl: 5 aspirin, enteric coated (ASPIRIN, ENTERIC COATED) 81 mg EC tablet TAKE (1) TABLET BY MOUTH DAILY IN THE MORNING. Disp: 30 tablet Rfl: 11 atorvastatin (LIPITOR) 10 mg tablet TAKE ONE-HALF (1/2) TABLET AT BEDTIME. Disp: 15 tablet Rfl: 5 blood sugar diagnostic (BLOOD GLUCOSE TEST) test strip Test blood sugar(s) 8 times daily. Dx: Type 1 DM - Uncontrolled E10.69 Insulin: Yes Disp: 250 Strip Rfl: 11 carbamide peroxide (DEBROX) 6.5 % otic solution Use 5 Drops in both ears twice daily. for 5 days then discontinue Disp: 1 Bottle Rfl: 1 cholecalciferol (VITAMIN D3) 5,000 unit tab TAKE (1) TABLET BY MOUTH ONCE DAILY. Disp: 30 tablet Rfl: 5 citric lntx-lybkoorhlqg-pmb carb (RENACIDIN) 1980.6 mg-59.4 mg-980.4mg/30mL irrigation USE 30ML INTRAVESICALRY VIA URINARY CATHETER 3 TIMES DAILY CLAMP 30MIN THEN DRAIN Disp: 270 mL Rfl: 5 COMPOUNDED PRESCRIPTION Please provide [facility] glucocard test strips to check blood sugar four to six Times a day Disp: 200 Strip Rfl: 3 COMPOUNDED PRESCRIPTION Leg cath secure device. (Z92.89) Chronic indwelling Franco catheter Disp: 1 Device Rfl: 3 Dextromethorphan-guaiFENesin (ROBITUSSIN DM) 10-200 mg/5 mL liqd Take 5-10 mL by mouth every 6 hours as needed. for cough Disp: 1 Bottle Rfl: 0 diclofenac sodium (VOLTAREN) 1 % topical gel Apply 2 g to affected area four times daily. Disp: 100 g Rfl: 5 docusate sodium (COLACE) 100 mg capsule Take 1 capsule by mouth twice daily as needed for Constipation. Disp: 60 capsule Rfl: 11 ferrous sulfate 325 mg (65 mg iron) tablet Take 1 tablet by mouth twice daily with meals. Disp: 60 tablet Rfl: 5 FLUoxetine (PROZAC) 10 mg capsule Take (1) capsule by mouth daily. Give with 20 mg capsule for 30 mg total. Disp: 30 capsule Rfl: 5 FLUoxetine (PROZAC) 20 mg capsule Take (1) capsule by mouth daily. Give with 10 mg capsule for 30 mg total. Disp: 30 capsule Rfl: 5 fluticasone (FLONASE) 50 mcg/actuation nasal spray USE 2 SPRAYS IN EACH NOSTRIL ONCE DAILY. RINSE MOUTH AFTER USE. Disp: 3 Bottle Rfl: 3 Gauze Bandage 3 X 3 bndg Apply 1 application to affected area once daily. Disp: 30 Each Rfl: 1 glucagon (GLUCAGON EMERGENCY KIT, HUMAN,) 1 mg solr INJECT 1MG INTRAMUSCULARLY IF UNCONSCIOUS, UNABLE TO FOLLOW SIMPLE INSTRUCTIONS OR SEIZURES TIMES 1 DOSE Disp: 1 Each Rfl: 1 glucose 4 gram chewable tablet TAKE 4 TABLETS BY MOUTH NEEDED FOR LOW BLOOD SUGAR BELOW 70 Disp: 10 tablet Rfl: 11 insulin glargine (LANTUS SOLOSTAR U-100 INSULIN) 100 unit/mL (3 mL) inpn 14 units in the AM and 10 units at HS Disp: 15 mL Rfl: 11 insulin lispro (HUMALOG KWIKPEN INSULIN) 100 unit/mL inpn Inject 8 units breakfast, 5 units lunch, 10 units dinner plus scale; up to 60 units daily Disp: 5 Pen Rfl: 3 insulin needles, DISPOSABLE, (ULTICARE PEN NEEDLE) 31 gauge x 5/16 ndle Use to inject insulin 5 times daily. Disp: 150 Each Rfl: 11 ketoconazole (NIZORAL) 2 % shampoo APPLY LATHER TO AFFECTED SKIN ON FACE AND RINSE OFF AFTER 2-5 MIN. USE DAILY NEEDED Disp: 120 mL Rfl: 11 Lancets lancets Test blood sugar(s) 8 times daily. Dx: Type 2 DM - Uncontrolled E11.65 Insulin: Yes Disp: 250 Each Rfl: 11 lidocaine (LIDODERM) 5 % Apply 1 Patch as directed every 24 hours. Remove old patch prior to placing new patch. Location: right shoulder Disp: 30 Patch Rfl: 5 loratadine (CLARITIN) 10 mg tablet TAKE (1) TABLET BY MOUTH ONCE DAILY. Disp: 30 tablet Rfl: 5 melatonin 3 mg tablet Take 1 tablet by mouth daily at bedtime. Disp: 30 tablet Rfl: 5 metoprolol tartrate, short acting, (LOPRESSOR) 25 mg tablet TAKE (1/2) TABLET BY MOUTH TWICE DAILY. Disp: 30 tablet Rfl: 5 ND-ACID GAS RELIEF 80 mg chewable tablet CHEW 1 TABLET BY MOUTH WITH MEALS AND AT BEDTIME Disp: 120 tablet Rfl: 11 nystatin (MYCOSTATIN) cream Apply 1 application to affected area twice daily. apply to juana cleft rash until rash is gone then one more week Disp: 1 Tube Rfl: 1 ofloxacin (FLOXIN) 0.3 % otic solution Use 5 Drops in the right ear twice daily. Disp: 1 Bottle Rfl: 0 olopatadine (PAZEO) 0.7 % drop Use 1 Drop in eyes once daily. Disp: 2.5 mL Rfl: 5 oxybutynin (DITROPAN) 5 mg tablet Take 1 tablet by mouth as needed (once daily as needed for bladder spasms). (Lower abdomen pain/stomach/Testicular pain) Disp: 30 tablet Rfl: [address] (PROTONIX) 40 mg tablet TAKE 1 TABLET BY MOUTH ONCE DAILY 1/2 HR BEFORE BREAKFAST Disp: 30 tablet Rfl: 5 polyethylene glycol 3350 (MIRALAX, GLYCOLAX) 17 gram/dose powder MIX 1 CAPFUL (17 GMS) IN 8 OZ OF WATER 2 TIMES DAILY. MIX 1 CAPFUL (17GRAMS) IN 8 OUNCES OF WATER AT 8PM A 3RD DOSE IF NO BM BY 8PM Disp: 1054 g Rfl: 3 QUEtiapine (SEROQUEL) 100 mg tablet TAKE 1 TABLET BY MOUTH ONCE DAILY AT 5 PM Disp: 30 tablet Rfl: 5 QUEtiapine (SEROQUEL) 200 mg tablet TAKE (1) TABLET BY MOUTH TWICE A DAY. 8am and 8pm. Disp: 60 tablet Rfl: 5 senna (SENNA LAX) 8.6 mg tab Take 1 tablet by mouth twice daily. Disp: 180 tablet Rfl: 3 senna (SENNA) 8.6 mg tab Take 8.6 mg by mouth twice daily. Disp: Rfl: senna (SENNA) 8.6 mg tab TAKE (1) TABLET BY MOUTH TWICE A DAY. Disp: 60 tablet Rfl: 5 Sodium Chloride (MESALT) 0.75 X 39 bndg Apply 1 application to affected area once daily. lightly pack / insert into wound area at coccyx with 2-3 wick enternally, change daily. Disp: 2 Each Rfl: 2 benzonatate (TESSALON PERLES) 100 mg capsule Take 2 capsules by mouth three times daily as needed. (Patient not taking: Reported on 05/31/2018 ) Disp: 30 capsule Rfl: 0 bisacodyl (LAXATIVE, BISACODYL,) 10 mg supp 1 Suppository by RECTAL route once daily as needed. for constipation (Patient not taking: Reported on 03/05/2018 ) Disp: 20 Suppository Rfl: 12 glucagon, human recombinant, (GLUCAGON EMERGENCY KIT, HUMAN,) 1 mg injection Inject 1 mg intravenously one time only for 1 dose. Disp: 1 Each Rfl: 1 No current facility-administered medications for this visit. REVIEW OF SYSTEMS General: no fever and no chills Skin: dry skin Cardiac: denies chest pain, heart palpitations or orthopnea Pulmonary: denies wheezing, productive cough except exertional dyspnea PHYSICAL EXAMINATION BP 141/88 (BP Site: Left Arm, BP Position: Sitting, BP Cuff Size: Regular Adult) Pulse 91 Ht 163.8 cm (5' 4.5) Wt 107 kg (236 lb) SpO2 95% BMI 39.88 kg/m2 Physical Exam Constitutional: He is oriented to person, place, and time and well-developed, well-nourished, and in no distress. No distress. Obese; in wheelchair HENT: Head: Normocephalic and atraumatic. Eyes: Right eye exhibits no discharge. Left eye exhibits no discharge. Cardiovascular: Normal rate and regular rhythm. Pulmonary/Chest: Effort normal and breath sounds normal. Musculoskeletal: He exhibits no edema. Neurological: He is alert and oriented to person, place, and time. Skin: Skin is warm and dry. He is not diaphoretic. Psychiatric: Mood, memory, affect and judgment normal. Feet:Shoes and socks removed, No deformities, ulcers, calluses, sensitive to 10 gm monofilament and dry skin DATA Creatinine Date Value Ref Range Status 05/09/2018 3.84 (H) 0.73 - 1.22 mg/dL Final Hemoglobin A1C (%) Date Value 05/09/2018 6.5 ) No components found for: URINEALBUMIN Cholesterol, Total (mg/dL) Date Value 03/15/2017 126 HDL Cholesterol (mg/dL) Date Value 03/15/2017 26 LDL Cholesterol (mg/dL) Date Value 03/15/2017 51 Triglyceride (mg/dL) Date Value 03/15/2017 245 IMPRESSION: Mr. Morse is a 38 year old male here for evaluation of DM Type 1 complicated by hyperlipidemia, retinopathy and nephropathy, obese RECOMMENDATIONS: (E10.22, E10.65, N18.3) Uncontrolled type 1 diabetes mellitus with stage 3 chronic kidney disease, with long-term current use of insulin ([facility]) (primary encounter diagnosis) Comment: glycemic control is above goal. A1C is 6.5 in the setting of anemia. Insulin adjustments made today. He lives at a [facility]p but mostly manages his own diabetes. Send readings every 1-2 wks for review. Plan: insulin lispro (HUMALOG KWIKPEN INSULIN) 100 unit/mL inpn, COMP METABOLIC PANEL, HGB A1C, LIPID PANEL BASIC, ALBUMIN/CREAT RATIO RND UR Lantus Am 14 units PM 10 units Humalog Breakfast 8 units Lunch 5 units Dinner 10 units Plus the humalog scale if needed with meals: If Blood Glucose (mg/dL) is < 150 Add 0 units 151-200 Add 1 unit 201-250 Add 2 units 251-300 Add 3 units 301-350 Add 4 units 351-400 Add 5 units 400-450 Add 6 units 451-500 Add 7 units and call if not improving. Check sugars 4x per day and PRN if signs or symptoms of hypo or hyperglycemia. Send them to me every 1-2 wks for insulin adjustments. Follow up in 3 months with labs prior. (E78.2) Mixed hyperlipidemia Comment: taking atorvastatin Plan: lipid panel with follow up (E66.01, Z68.39) Class 2 severe obesity with serious comorbidity and body mass index (BMI) of 39.0 to 39.9 in adult, unspecified obesity type (HCC) Comment: Body mass index is 39.88 kg/m?. Plan: Encouraged increase dietary and exercise efforts as able Naye Nuñez APRN, WELT SLASHER-C Endocrinology [facility]/[place] [address] Fax: Naye Nuñez APRN.[facility] 06/04/2018 11:22 AM Addendum 1. Lantus Am 14 units PM 10 units 2. Humalog Breakfast 8 units Lunch 5 units Dinner 10 units Plus the humalog scale if needed with meals: If Blood Glucose (mg/dL) is < 150 Add 0 units 151-200 Add 1 unit 201-250 Add 2 units 251-300 Add 3 units 301-350 Add 4 units 351-400 Add 5 units 400-450 Add 6 units 451-500 Add 7 units and call if not improving. 3. Check sugars 4x per day and PRN if signs or symptoms of hypo or hyperglycemia. Send them to me every 1-2 wks for insulin adjustments. 4. Follow up in 3 months with labs prior. Naye Nuñez APRN, WELT SL[employer]ER-C Endocrinology [facility]/[place] [address] Fax: Referring Provider: SELF [200] Allergies As of Date: 06/04/2018 Noted Allergy Reaction SEASONAL ALLERGIES 12/03/2012 14 - Other: See Comments Comments: Environmental-ragweed Date Reviewed: 06/04/2018 Reviewed by: Naye Nicole) Levi - Fully Assessed Reason for Visit: Diabetes [34] Primary Visit Diagnosis:Uncontrolled type 1 diabetes mellitus with stage 3 chronic kidney disease, with long- term current use of insulin (HCC) [E10.22, E10.65, N18.3] Other Visit Diagnoses:Mixed hyperlipidemia [E78.2] Class 2 severe obesity with serious comorbidity and body mass index (BMI) of 39.0 to 39.9 in adult, unspecified obesity type (HCC) [E66.01, Z68.39] Order(s):insulin lispro (HUMALOG KWIKPEN INSULIN) 100 unit/mL inpnInject 8 units breakfast, 5 units lunch, 10 units dinner plus scale; up to 60 units dailyDisp: 5 PenRfl: 3 COMP METABOLIC PANEL [SQCMP] Order #: [id number] FUTURE HGB A1C [FHZEM5N] Order #: [id number] FUTURE LIPID PANEL BASIC [SQLIPB] Order #: [id number] FUTURE ALBUMIN/CREAT RATIO RND UR [SQUACR] Order #: [id number] FUTURE Prescriptions as of 06/04/2018 Sig: ACETAMINOPHEN ER 650 MG TABLE* Take 1 tablet by mouth every * ALBUTEROL SULFATE HFA 90 MCG/* Inhale 2 Puffs as instructed * ALUMINUM-MAG HYDROXIDE-SIMETH* Take 30 mL by mouth every 6 h* AMMONIUM LACTATE 12 % TOPICAL* Apply 1 application to affect* AMMONIUM LACTATE 12 % LOTION APPLY TO AFFECTED AREAS TWICE* ASCORBIC ACID (VITAMIN C) 1,0* TAKE (1) TABLET BY MOUTH ONCE* ASPIRIN 81 MG TABLET,DELAYED * TAKE (1) TABLET BY MOUTH JACQUELIN* ATORVASTATIN 10 MG TABLET TAKE ONE-HALF (1/2) TABLET AT* BLOOD SUGAR DIAGNOSTIC STRIPS Test blood sugar(s) 8 times d* CARBAMIDE PEROXIDE 6.5 % EAR * Use 5 Drops in both ears twic* CHOLECALCIFEROL (VITAMIN D3) * TAKE (1) TABLET BY MOUTH ONCE* CITRIC AC 1980.6 MG-GLUCONO 5* USE 30ML INTRAVESICALRY VIA U* COMPOUNDED PRESCRIPTION Please provide ARKKAY glucoca* COMPOUNDED PRESCRIPTION Leg cath secure device. (Z92* DEXTROMETHORPHAN-GUAIFENESIN * Take 5-10 mL by mouth every 6* DICLOFENAC 1 % TOPICAL GEL Apply 2 g to affected area fo* DOCUSATE SODIUM 100 MG CAPSULE Take 1 capsule by mouth twice* FERROUS SULFATE 325 MG (65 MG* Take 1 tablet by mouth twice * FLUOXETINE 10 MG CAPSULE Take (1) capsule by mouth vasyl* FLUOXETINE 20 MG CAPSULE Take (1) capsule by mouth vasyl* FLUTICASONE 50 MCG/ACTUATION * USE 2 SPRAYS IN EACH NOSTRIL * GAUZE BANDAGE 3 X 3 Apply 1 application to affect* GLUCAGON (HUMAN RECOMBINANT) * INJECT 1MG INTRAMUSCULARLY IF* GLUCOSE 4 GRAM CHEWABLE TABLET TAKE 4 TABLETS BY MOUTH NE* INSULIN GLARGINE (U-100) 100 * 14 units in the AM and 10 uni* INSULIN LISPRO (U-100) 100 UN* Inject 8 units breakfast, 5 u* PEN NEEDLE, DIABETIC 31 GAUGE* Use to inject insulin 5 times* KETOCONAZOLE 2 % SHAMPOO APPLY LATHER TO AFFECTED SKIN* LANCETS Test blood sugar(s) 8 times d* LIDOCAINE 5 % TOPICAL PATCH Apply 1 Patch as directed kendal* LORATADINE 10 MG TABLET TAKE (1) TABLET BY MOUTH ONCE* MELATONIN 3 MG TABLET Take 1 tablet by mouth daily * METOPROLOL TARTRATE 25 MG TAB* TAKE (1/2) TABLET BY MOUTH TW* ND-ACID GAS RELIEF 80 MG CHEW* CHEW 1 TABLET BY MOUTH WITH M* NYSTATIN 100,000 UNIT/GRAM TO* Apply 1 application to affect* OFLOXACIN 0.3 % EAR DROPS Use 5 Drops in the right ear * OLOPATADINE 0.7 % EYE DROPS Use 1 Drop in eyes once daily. OXYBUTYNIN CHLORIDE 5 MG TABL* Take 1 tablet by mouth as nee* PANTOPRAZOLE 40 MG TABLET,DEL* TAKE 1 TABLET BY MOUTH ONCE D* POLYETHYLENE GLYCOL 3350 17 G* MIX 1 CAPFUL (17 GMS) IN 8 OZ* QUETIAPINE 100 MG TABLET TAKE 1 TABLET BY MOUTH ONCE D* QUETIAPINE 200 MG TABLET TAKE (1) TABLET BY MOUTH TWIC* SENNOSIDES 8.6 MG TABLET Take 1 tablet by mouth twice * SENNOSIDES 8.6 MG TABLET Take 8.6 mg by mouth twice da* SENNOSIDES 8.6 MG TABLET TAKE (1) TABLET BY MOUTH TWIC* SODIUM CHLORIDE 0.75 X 39 B* Apply 1 application to affect* BENZONATATE 100 MG CAPSULE Take 2 capsules by mouth thre* Patient not taking: Reported on 05/31/2018 BISACODYL 10 MG RECTAL SUPPOS* 1 Suppository by RECTAL route* Patient not taking: Reported on 03/05/2018 GLUCAGON (HUMAN RECOMBINANT) * Inject 1 mg intravenously one* Problem List As Of Date 06/04/2018 Noted Resolved ATTN DEFICIT W HYPERACT [F90.9] INVALID FOR* HYDRONEPHROSIS [N13.30] INVALID FOR* 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 Allergic rhinitis [J30.9] DVT of left axillary vein, acute (HCC) [I82.A12]INVALID FOR* Class 2 severe obesity with serious comorbidity*INVALID FOR* Other instructions from your clinician: 1. Lantus Am 14 units PM 10 units 2. Humalog Breakfast 8 units Lunch 5 units Dinner 10 units Plus the humalog scale if needed with meals: If Blood Glucose (mg/dL) is < 150 Add 0 units 151-200 Add 1 unit 201-250 Add 2 units 251-300 Add 3 units 301-350 Add 4 units 351-400 Add 5 units 400-450 Add 6 units 451-500 Add 7 units and call if not improving. 3. Check sugars 4x per day and PRN if signs or symptoms of hypo or hyperglycemia. Send them to me every 1-2 wks for insulin adjustments. 4. Follow up in 3 months with labs prior. Naye Nuñez APRN, WELT SLASHER-C Endocrinology [facility] Medical Office [facility]/[address], [address] [place] [address] Fax: Prescriptions ordered this encounter Disp Refills Start End INSULIN LISPRO (U-100) 100 UNIT/ML S* 5 Pen 3 06/04/2018 Class: Med Update Sig: Inject 8 units breakfast, 5 units lunch, 10 units dinner plus scale; up to 60 units daily Medications Discontinued During This Encounter insulin lispro (HUMALOG KWIKPEN INSU* 5 Pen 3 05/24/2018 06/04/2018 Sig: INJECT 5-8 UNITS SUBCUTANEOUSLY WITH MEALS AND USE PER SLIDING SCALE SCALE DIRECTED Disc: Reason for discontinue is not on file. Follow-up and Disposition History Recorded Encounter Status:Closed by NAYE NUÑEZ on 06/04/18 PROGRESS Observed: 06/04/2018 Status: COMPLETED Source: [place] 10:53 AM [facility] [place] O ID: [id number] Author: Naye ([place]) Levi Service: (none) Author Type: Nurse Practitioner Type: Progress Notes Filed: 06/04/2018 11:45 AM Note Text: Reason for Consultation: DM Type 1 Referring Physician: SELF HISTORY OF PRESENT ILLNESS Mr. Morse is a 38 year old male presenting here today for a follow up of DM Type 1. As I recall, he was initially diagnosed with diabetes age 8. Previous patient of Dr. Feliciano; LV 03/05/2018 A1C 6.5 on 05/09/2018 Lives with [place] [employer] ([employer]). Here with an employee of [employer]. Administers his own insulin. No on pureed diet Follows with [facility]. ? Known complications include: hyperlipidemia and nephropathy/CKD ? Exacerbating factors include: obesity ? Current diabetes regimen is as follows: 1. lantus 14 units AM and 10 units PM 2. Humalog plus SS 1 SUPPLEMENTAL INSULIN If Blood Glucose (mg/dL) is < 150 Add 0 units 151-200 Add 1 unit 201-250 Add 2 units 251-300 Add 3 units 301-350 Add 4 units 351-400 Add 5 units 400-450 Add 6 units 451-500 Add 7 units and call if not improving. he is checking his blood glucose 4 times daily. he does bring a log book today for review. ? LDE Blood Sugar Frequency: ? FBS 217, 83, 220 ? AcL 343, 282 ? acS 299, 309, 362, 266, 86 ? HS 351, 282, 334 ? 1 AM 223, 149, 144 ? Hypoglycemia frequency: occasional; rarely below 70 but feels shaky at 100 or less ? Hypoglycemia awareness: Yes Regarding symptoms of hypoglycemia, he is is not experiencing any symptoms such as polyuria, polydipsia, nocturia or rapid weight loss or blurry vision, Overall, the patient has no acute complaints at this time. PAST MEDICAL HISTORY Diagnosis Date - Acute deep vein thrombosis (DVT) of right upper extremity (HCC) 03/19/15 Diagnosed during hospital admission; coumadin started - Acute embolism and thrombosis of deep vein of right upper extremity (HCC) 04/09/2015 - Acute gastritis without mention of hemorrhage 08/21/2012 - Allergic rhinitis - Anemia 03/07/2015 - Attention deficit disorder with hyperactivity(314.01) - Chronic renal failure Dr. 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 - Hand fracture 07/2012 right - Hemorrhage of gastrointestinal tract, unspecified 08/21/2012 - Hypernatremia 03/07/2015 - Incisional infection 02/04/16 - Nocturnal enuresis 04/28/2005 - OTHER MENTAL RETARDATION - MILD 02/07/2005 - Presence of suprapubic catheter ([facility]) Dr. Frias - Retention of urine, unspecified 08/20/2007 - Type I (juvenile type) diabetes mellitus without mention of complication, not stated as uncontrolled 02/04/2005 Dr. Olmedo PAST SURGICAL HISTORY Procedure Laterality Date - APPENDECTOMY 2000 - AV FUSE, UPPR ARM, CEPHALIC 12/17/15 Transposition left upper arm cephalic vein to brachial artery arteriovenous fistula creation - COLONOSCOP W/ OR W/O BRSH SPEC 12/04/14 decompression for pseudoobstruction - COLONOSCOPY 08/21/2012 and EGD - EGD W/REM FB STOMACH/DUOD 01/02/2017 removal of PEG tube with EGD to remove fragment - EGD W/REM FB STOMACH/DUOD 12/2016 - IR VASCULAR ACCESS TEAM PICC REPOSITION 04/04/2015 - MIDLINE INSERTION/CONSULT 03/03/2015 - PAST SURGICAL HISTORY OF Laparotomy - PAST SURGICAL HISTORY OF 01/22/2015 negative exploratory laparotomy for pneumatosis intestinalis high grade bowel obstruction - PICC LINE INSERT/CONSULT 04/02/2015 - PICC LINE INSERT/CONSULT 04/03/2015 - SUPRAPUBIC CATHETER FAMILY HISTORY Problem Relation Age of Onset - other (unknown) Other - Diabetes Father Diabetic, unsure of which type, did not want to provide additional FH details. Social History Marital status: Single Spouse name: Years of education: Number of children: 0 Occupational History Occupation Employer Comment DISABLED Social History Main Topics Smoking status: Never Smoker Smokeless tobacco: Never Used Alcohol use: No Drug use: No Sexual activity: No Social History Narrative Patient lives in a [facility] with 24 hour supervision. He has multiple behavioral problems. Allergies As of Date: 06/04/2018 Allergen Noted Reaction SEASONAL ALLERGIES 12/03/2012 Other: See Comments Fully Assessed 06/04/2018 Current Outpatient Prescriptions: acetaminophen (TYLENOL ARTHRITIS PAIN) 650 mg CR tablet Take 1 tablet by mouth every 8 hours as needed. Disp: 30 tablet Rfl: 5 albuterol HFA (PROVENTIL HFA, VENTOLIN HFA) 90 mcg/actuation inhaler Inhale 2 Puffs as instructed every 4 hours as needed for Wheezing/Shortness of Breath. Disp: 1 Inhaler Rfl: 1 aluminum-magnesium hydroxide-simethicone (RULOX) 200-200-20 mg/5 mL suspension Take 30 mL by mouth every 6 hours as needed. Disp: 150 mL Rfl: 1 ammonium lactate (LAC-HYDRIN) 12 % cream Apply 1 application to affected area twice daily. Disp: 385 g Rfl: 3 ammonium lactate (LAC-HYDRIN) 12 % lotion APPLY TO AFFECTED AREAS TWICE DAILY. APPLY TO FEET AND LOWER LEGS Disp: 226 g Rfl: 2 Ascorbic Acid (VITAMIN C) 1,000 mg tablet TAKE (1) TABLET BY MOUTH ONCE DAILY. Disp: 30 tablet Rfl: 5 aspirin, enteric coated (ASPIRIN, ENTERIC COATED) 81 mg EC tablet TAKE (1) TABLET BY MOUTH DAILY IN THE MORNING. Disp: 30 tablet Rfl: 11 atorvastatin (LIPITOR) 10 mg tablet TAKE ONE-HALF (1/2) TABLET AT BEDTIME. Disp: 15 tablet Rfl: 5 blood sugar diagnostic (BLOOD GLUCOSE TEST) test strip Test blood sugar(s) 8 times daily. Dx: Type 1 DM - Uncontrolled E10.69 Insulin: Yes Disp: 250 Strip Rfl: 11 carbamide peroxide (DEBROX) 6.5 % otic solution Use 5 Drops in both ears twice daily. for 5 days then discontinue Disp: 1 Bottle Rfl: 1 cholecalciferol (VITAMIN D3) 5,000 unit tab TAKE (1) TABLET BY MOUTH ONCE DAILY. Disp: 30 tablet Rfl: 5 citric eqob-jmwynddcvda-vvs carb (RENACIDIN) 1979.6 mg-59.4 mg-980.4mg/30mL irrigation USE 30ML INTRAVESICALRY VIA URINARY CATHETER 3 TIMES DAILY CLAMP 30MIN THEN DRAIN Disp: 270 mL Rfl: 5 COMPOUNDED PRESCRIPTION Please provide [facility] glucocard test strips to check blood sugar four to six Times a day Disp: 200 Strip Rfl: 3 COMPOUNDED PRESCRIPTION Leg cath secure device. (Z92.89) Chronic indwelling Franco catheter Disp: 1 Device Rfl: 3 Dextromethorphan-guaiFENesin (ROBITUSSIN DM) 10-200 mg/5 mL liqd Take 5-10 mL by mouth every 6 hours as needed. for cough Disp: 1 Bottle Rfl: 0 diclofenac sodium (VOLTAREN) 1 % topical gel Apply 2 g to affected area four times daily. Disp: 100 g Rfl: 5 docusate sodium (COLACE) 100 mg capsule Take 1 capsule by mouth twice daily as needed for Constipation. Disp: 60 capsule Rfl: 11 ferrous sulfate 325 mg (65 mg iron) tablet Take 1 tablet by mouth twice daily with meals. Disp: 60 tablet Rfl: 5 FLUoxetine (PROZAC) 10 mg capsule Take (1) capsule by mouth daily. Give with 20 mg capsule for 30 mg total. Disp: 30 capsule Rfl: 5 FLUoxetine (PROZAC) 20 mg capsule Take (1) capsule by mouth daily. Give with 10 mg capsule for 30 mg total. Disp: 30 capsule Rfl: 5 fluticasone (FLONASE) 50 mcg/actuation nasal spray USE 2 SPRAYS IN EACH NOSTRIL ONCE DAILY. RINSE MOUTH AFTER USE. Disp: 3 Bottle Rfl: 3 Gauze Bandage 3 X 3 bndg Apply 1 application to affected area once daily. Disp: 30 Each Rfl: 1 glucagon (GLUCAGON EMERGENCY KIT, HUMAN,) 1 mg solr INJECT 1MG INTRAMUSCULARLY IF UNCONSCIOUS, UNABLE TO FOLLOW SIMPLE INSTRUCTIONS OR SEIZURES TIMES 1 DOSE Disp: 1 Each Rfl: 1 glucose 4 gram chewable tablet TAKE 4 TABLETS BY MOUTH NEEDED FOR LOW BLOOD SUGAR BELOW 70 Disp: 10 tablet Rfl: 11 insulin glargine (LANTUS SOLOSTAR U-100 INSULIN) 100 unit/mL (3 mL) inpn 14 units in the AM and 10 units at HS Disp: 15 mL Rfl: 11 insulin lispro (HUMALOG KWIKPEN INSULIN) 100 unit/mL inpn Inject 8 units breakfast, 5 units lunch, 10 units dinner plus scale; up to 60 units daily Disp: 5 Pen Rfl: 3 insulin needles, DISPOSABLE, (ULTICARE PEN NEEDLE) 31 gauge x 5/16 ndle Use to inject insulin 5 times daily. Disp: 150 Each Rfl: 11 ketoconazole (NIZORAL) 2 % shampoo APPLY LATHER TO AFFECTED SKIN ON FACE AND RINSE OFF AFTER 2-5 MIN. USE DAILY NEEDED Disp: 120 mL Rfl: 11 Lancets lancets Test blood sugar(s) 8 times daily. Dx: Type 2 DM - Uncontrolled E11.65 Insulin: Yes Disp: 250 Each Rfl: 11 lidocaine (LIDODERM) 5 % Apply 1 Patch as directed every 24 hours. Remove old patch prior to placing new patch. Location: right shoulder Disp: 30 Patch Rfl: 5 loratadine (CLARITIN) 10 mg tablet TAKE (1) TABLET BY MOUTH ONCE DAILY. Disp: 30 tablet Rfl: 5 melatonin 3 mg tablet Take 1 tablet by mouth daily at bedtime. Disp: 30 tablet Rfl: 5 metoprolol tartrate, short acting, (LOPRESSOR) 25 mg tablet TAKE (1/2) TABLET BY MOUTH TWICE DAILY. Disp: 30 tablet Rfl: 5 ND-ACID GAS RELIEF 80 mg chewable tablet CHEW 1 TABLET BY MOUTH WITH MEALS AND AT BEDTIME Disp: 120 tablet Rfl: 11 nystatin (MYCOSTATIN) cream Apply 1 application to affected area twice daily. apply to cleft rash until rash is gone then one more week Disp: 1 Tube Rfl: 1 ofloxacin (FLOXIN) 0.3 % otic solution Use 5 Drops in the right ear twice daily. Disp: 1 Bottle Rfl: 0 olopatadine (PAZEO) 0.7 % drop Use 1 Drop in eyes once daily. Disp: 2.5 mL Rfl: 5 oxybutynin (DITROPAN) 5 mg tablet Take 1 tablet by mouth as needed (once daily as needed for bladder spasms). (Lower abdomen pain/stomach/Testicular pain) Disp: 30 tablet Rfl: [address] (PROTONIX) 40 mg tablet TAKE 1 TABLET BY MOUTH ONCE DAILY 1/2 HR BEFORE BREAKFAST Disp: 30 tablet Rfl: 5 polyethylene glycol 3350 (MIRALAX, GLYCOLAX) 17 gram/dose powder MIX 1 CAPFUL (17 GMS) IN 8 OZ OF WATER 2 TIMES DAILY. MIX 1 CAPFUL (17GRAMS) IN 8 OUNCES OF WATER AT 8PM A 3RD DOSE IF NO BM BY 8PM Disp: 1054 g Rfl: 3 QUEtiapine (SEROQUEL) 100 mg tablet TAKE 1 TABLET BY MOUTH ONCE DAILY AT 5 PM Disp: 30 tablet Rfl: 5 QUEtiapine (SEROQUEL) 200 mg tablet TAKE (1) TABLET BY MOUTH TWICE A DAY. 8am and 8pm. Disp: 60 tablet Rfl: 5 senna (SENNA LAX) 8.6 mg tab Take 1 tablet by mouth twice daily. Disp: 180 tablet Rfl: 3 senna (SENNA) 8.6 mg tab Take 8.6 mg by mouth twice daily. Disp: Rfl: senna (SENNA) 8.6 mg tab TAKE (1) TABLET BY MOUTH TWICE A DAY. Disp: 60 tablet Rfl: 5 Sodium Chloride (MESALT) 0.75 X 39 bndg Apply 1 application to affected area once daily. lightly pack / insert into wound area at coccyx with 2-3 wick enternally, change daily. Disp: 2 Each Rfl: 2 benzonatate (TESSALON PERLES) 100 mg capsule Take 2 capsules by mouth three times daily as needed. (Patient not taking: Reported on 05/31/2018 ) Disp: 30 capsule Rfl: 0 bisacodyl (LAXATIVE, BISACODYL,) 10 mg supp 1 Suppository by RECTAL route once daily as needed. for constipation (Patient not taking: Reported on 03/05/2018 ) Disp: 20 Suppository Rfl: 12 glucagon, human recombinant, (GLUCAGON EMERGENCY KIT, HUMAN,) 1 mg injection Inject 1 mg intravenously one time only for 1 dose. Disp: 1 Each Rfl: 1 No current facility-administered medications for this visit. REVIEW OF SYSTEMS General: no fever and no chills Skin: dry skin Cardiac: denies chest pain, heart palpitations or orthopnea Pulmonary: denies wheezing, productive cough except exertional dyspnea PHYSICAL EXAMINATION BP 141/88 (BP Site: Left Arm, BP Position: Sitting, BP Cuff Size: Regular Adult) Pulse 91 Ht 163.8 cm (5' 4.5) Wt 107 kg (236 lb) SpO2 95% BMI 39.88 kg/m2 Physical Exam Constitutional: He is oriented to person, place, and time and well-developed, well-nourished, and in no distress. No distress. Obese; in wheelchair HENT: Head: Normocephalic and atraumatic. Eyes: Right eye exhibits no discharge. Left eye exhibits no discharge. Cardiovascular: Normal rate and regular rhythm. Pulmonary/Chest: Effort normal and breath sounds normal. Musculoskeletal: He exhibits no edema. Neurological: He is alert and oriented to person, place, and time. Skin: Skin is warm and dry. He is not diaphoretic. Psychiatric: Mood, memory, affect and judgment normal. Feet:Shoes and socks removed, No deformities, ulcers, calluses, sensitive to 10 gm monofilament and dry skin DATA Creatinine Date Value Ref Range Status 05/09/2018 3.84 (H) 0.73 - 1.22 mg/dL Final Hemoglobin A1C (%) Date Value 05/09/2018 6.5 ) No components found for: URINEALBUMIN Cholesterol, Total (mg/dL) Date Value 03/15/2017 126 HDL Cholesterol (mg/dL) Date Value 03/15/2017 26 LDL Cholesterol (mg/dL) Date Value 03/15/2017 51 Triglyceride (mg/dL) Date Value 03/15/2017 245 IMPRESSION: Mr. Morse is a 38 year old male here for evaluation of DM Type 1 complicated by hyperlipidemia, retinopathy and nephropathy, obese RECOMMENDATIONS: (E10.22, E10.65, N18.3) Uncontrolled type 1 diabetes mellitus with stage 3 chronic kidney disease, with long-term current use of insulin ([facility]) (primary encounter diagnosis) Comment: glycemic control is above goal. A1C is 6.5 in the setting of anemia. Insulin adjustments made today. He lives at a [facility]p but mostly manages his own diabetes. Send readings every 1-2 wks for review. Plan: insulin lispro (HUMALOG KWIKPEN INSULIN) 100 unit/mL inpn, COMP METABOLIC PANEL, HGB A1C, LIPID PANEL BASIC, ALBUMIN/CREAT RATIO RND UR Lantus Am 14 units PM 10 units Humalog Breakfast 8 units Lunch 5 units Dinner 10 units Plus the humalog scale if needed with meals: If Blood Glucose (mg/dL) is < 150 Add 0 units 151-200 Add 1 unit 201-250 Add 2 units 251-300 Add 3 units 301-350 Add 4 units 351-400 Add 5 units 400-450 Add 6 units 451-500 Add 7 units and call if not improving. Check sugars 4x per day and PRN if signs or symptoms of hypo or hyperglycemia. Send them to me every 1-2 wks for insulin adjustments. Follow up in 3 months with labs prior. (E78.2) Mixed hyperlipidemia Comment: taking atorvastatin Plan: lipid panel with follow up (E66.01, Z68.39) Class 2 severe obesity with serious comorbidity and body mass index (BMI) of 39.0 to 39.9 in adult, unspecified obesity type (HCC) Comment: Body mass index is 39.88 kg/m?. Plan: Encouraged increase dietary and exercise efforts as able Naye Nuñez APRN, WELT SLASHER-C Endocrinology [facility] Office Building/[address] [place], [place] [address] Fax: SURGERY VISIT REPORT Observed: 05/31/2018 Status: F Source: [place] 12:27 PM [facility] REPOSITORY [facility] [address] [place] [address] [address] [place] [address] OFFICE VISIT Date of Service: 05/29/18 MR#: [id number] Acct: [id number] Name: JARON MORSE Yaquelin Rep #: [id number] : 1980 Provider: Taylor Owens PA-C Age/Sex: 38/M Location: [facility] Status: Signed Intake Intake Visit Reasons: 1 mo FU Fisutal Creation 04/18 Cyber Incident Analyst Required: No Is patient in pain?: Yes (Right arm) Pain scale (1-10): 7 Allergies No Known Allergies Allergy (Verified 05/29/18 13:31) Medications Ascorbic Acid [Vitamin C] 1,000 mg PO DAILY 02/21/15 [History Confirmed 05/29/18] Fluoxetine [Prozac] 20 mg PO DAILY 02/21/15 [History Confirmed 05/29/18] Loratadine [Claritin] 10 mg PO DAILY 07/08/15 [History Confirmed 05/29/18] Melatonin 3 mg PO QHS 12/09/15 [History Confirmed 05/29/18] Insulin Lispro [Humalog Kwikpen] 0 unit SQ TIDCM 08/29/16 [History Confirmed 05/29/18] Sennosides [Senna] 8.6 mg PO BID 12/29/16 [History Confirmed 05/29/18] Insulin Lispro [Humalog] 8 unit SQ BID 12/24/17 [History Confirmed 05/29/18] Cholecalciferol (Vitamin D3) [Vitamin D3] 5,000 unit PO DAILY 01/09/18 [History Confirmed 05/29/18] Insulin Glargine [Lantus SoloStar Pen] 10 units SC QHS 02/09/18 [History Confirmed 05/29/18] Polyethylene Glycol 3350 [Miralax] 17 gm PO 0800,1600 02/09/18 [History Confirmed 05/29/18] Albuterol Inhaler [Ventolin Hfa] 2 puff INHALATION Q4H PRN PRN 04/20/18 [History Confirmed 05/29/18] Ammonium Lactate [Amlactin] 1 applic TP BID 04/20/18 [History Confirmed 05/29/18] Aspirin E.C. [Ecotrin] 81 mg PO DAILY@0800 04/20/18 [History Confirmed 05/29/18] Atorvastatin Calcium 5 mg PO QHS 04/20/18 [History Confirmed 05/29/18] Citric AC/Gluconolact/Mag Carb [Renacidin Irrigation Solution] 30 ml IR 0800,1600,2000 04/20/18 [History Confirmed 05/29/18] Fluoxetine [Prozac] 10 mg PO DAILY 04/20/18 [History Confirmed 05/29/18] Fluticasone 0.05% [Flonase Nasal [place]] 2 spray NASAL DAILY 04/20/18 [History Confirmed 05/29/18] Insulin Glargine,Hum.rec.anlog [Lantus] 14 unit SQ DAILY 04/20/18 [History Confirmed 05/29/18] Insulin Lispro [Humalog] 4 unit SQ 1100 04/20/18 [History Confirmed 05/29/18] Ketoconazole 1 applic TP UD 04/20/18 [History Confirmed 05/29/18] Metoprolol Tartrate 12.5 mg PO BID 04/20/18 [History Confirmed 05/29/18] Olopatadine HCl [Pataday] 1 drp EACHEYE DAILY 04/20/18 [History Confirmed 05/29/18] Oxybutynin [Ditropan] 5 mg PO DAILY PRN 04/20/18 [History Confirmed 05/29/18] Pantoprazole Sodium [Protonix] 40 mg PO DAILY 04/20/18 [History Confirmed 05/29/18] Polyethylene Glycol 3350 [Miralax] 17 gm PO QHS PRN 04/20/18 [History Confirmed 05/29/18] Quetiapine Fumarate [Seroquel] 100 mg PO 1700 04/20/18 [History Confirmed 05/29/18] Quetiapine Fumarate [Seroquel] 200 mg PO 0800,199904/20/18 [History Confirmed 05/29/18] Ferrous Sulfate 2 tab PO DAILY 05/10/18 [History Confirmed 05/29/18] Smz/Tmp Ds [Bactrim Ds] 1 tab PO BID #14 tab 05/10/18 [Rx Confirmed 05/29/18] Subjective Details: Patient is a 38 y/o male I am following for chronic renal failure. Patient returns for a follow-up visit from a transposition of the right forearm cephalic vein to radial artery AV fistula creation on 04/18/18. Patient notes for the last week he has had increased discomfort of the right upper extremity. He is fearful that he may have a blood clot. He notes swelling also. He states it is hard to sleep at night. He denies pain at the incision site on the forearm. He denies numbness/tingling of the hand and fingers. Objective Details: Right forearm AV fistula- incision nicely healed. Good pulse, bruit and thrill. Bilaterally upper extremities appear to be similar in size. No distinct swelling is noted. Assessment AND Plan Problems 1. Stage 5 chronic kidney disease N18.5 2. Swelling of right upper extremity M79.89 Plan - Dr. Abreu also evaluated this patient - Patient is not currently on dialysis, however the fistula is ready to use if dialysis is needed - Will obtain a right upper extremity duplex to rule out blood clot. - Plan for follow-up in 2 months if not on dialysis Right upper extremity duplex was obtained and demonstrated normal to slightly high flow throughout the fistula. No stenosis noted. No blood clot noted. This was relayed to the patient. Orders Orders: Coding Level of Care Code Global Post Op Diagnoses Stage 5 chronic kidney disease N18.5 Swelling of right upper extremity M79.89 05/31/18 1227 <Electronically signed by Taylor Owens PA-C> Date Taylor Owens PA-C Cosigner Signature: Date (if applicable) CC: Francine Clark MD PROGRESS Observed: 05/31/2018 Status: COMPLETED Source: [place] 10:33 AM [facility] [place] REPOSITORY HNO ID: [id number] Author: Georgi ([facility]) Jesus Service: (none) Author Type: Nurse Specialist Type: Progress Notes Filed: 06/04/2018 4:50 PM Note Text: OUTPATIENT VISIT DATE May 31, 2018 OUTPATIENT VISIT TYPE ESTABLISHED PRIMARY CARE PHYSICIAN: Francine Clark MD CHIEF COMPLAINT: Patient presents with: Wound Evaluation History of Present Illness: Jaron Morse is a 38 year old male who was last seen 05/22/2018 by Francine Clark MD He has been seen in the past for ACTIVE PROBLEM LIST Attention Deficit Disorder With Hyperactivity(314.01) Uncontrolled Type 1 Diabetes Mellitus (Hcc) Hydronephrosis Mild Intellectual Disabilities Suprapubic Catheter (Hcc) Ckd (Chronic Kidney Disease) Stage 4, Gfr 15-29 Ml/Min (Hcc) Generalized Dysmotility of Intestine Nephrogenic Diabetes Insipidus (Hcc) Seborrheic Dermatitis Allergic Rhinitis Dvt of Left Axillary Vein, Acute (Hcc) Presents today with a caregiver who provides much of the history. She reports a nurse came to do a physical assessment/wound assessment of the usp yesterday noticed a problem in the coccyx area, redness and some drainage. No prior known occurrence. A visit with provider was recommended. No current fever. Small amount of yellow drainage noted on the wound. No recent hospital or ED visits. No new medical problems or medications. Able to obtain medications. No problems with taking medications or note side effects. PAST MEDICAL HISTORY Diagnosis Date - Acute deep vein thrombosis (DVT) of right upper extremity (HCC) 03/19/15 Diagnosed during hospital admission; coumadin started - Acute embolism and thrombosis of deep vein of right upper extremity (HCC) 04/09/2015 - Acute gastritis without mention of hemorrhage 08/21/2012 - Allergic rhinitis - Anemia 03/07/2015 - Attention deficit disorder with hyperactivity(314.01) - Chronic renal failure Dr. 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 - Hand fracture 07/2012 right - Hemorrhage of gastrointestinal tract, unspecified 08/21/2012 - Hypernatremia 03/07/2015 - Incisional infection 02/04/16 - Nocturnal enuresis 04/28/2005 - OTHER MENTAL RETARDATION - MILD 02/07/2005 - Presence of suprapubic catheter ([facility]) Dr. Frias - Retention of urine, unspecified 08/20/2007 - Type I (juvenile type) diabetes mellitus without mention of complication, not stated as uncontrolled 02/04/2005 Dr. Olmedo PAST SURGICAL HISTORY Procedure Laterality Date - APPENDECTOMY 2000 - AV FUSE, UPPR ARM, CEPHALIC 12/17/15 Transposition left upper arm cephalic vein to brachial artery arteriovenous fistula creation - COLONOSCOP W/ OR W/O [facility] SPEC 12/04/14 decompression for pseudoobstruction - COLONOSCOPY 08/21/2012 and EGD - EGD W/REM FB STOMACH/DUOD 01/02/2017 removal of PEG tube with EGD to remove fragment - EGD W/REM FB STOMACH/DUOD 12/2016 - IR VASCULAR ACCESS TEAM PICC REPOSITION 04/04/2015 - MIDLINE INSERTION/CONSULT 03/03/2015 - PAST SURGICAL HISTORY OF Laparotomy - PAST SURGICAL HISTORY OF 01/22/2015 negative exploratory laparotomy for pneumatosis intestinalis high grade bowel obstruction - PICC LINE INSERT/CONSULT 04/02/2015 - PICC LINE INSERT/CONSULT 04/03/2015 - SUPRAPUBIC CATHETER FAMILY HISTORY Problem Relation Age of Onset - other (unknown) Other - Diabetes Father Diabetic, unsure of which type, did not want to provide additional FH details. Social History Substance Use Topics - Smoking status: Never Smoker - Smokeless tobacco: Never Used - Alcohol use No ALLERGIES: ALLERGIES Allergen Reactions - Seasonal Allergies Other: See Comments Environmental-ragweed MEDICATIONS acetaminophen (TYLENOL ARTHRITIS PAIN) 650 mg CR tablet Take 1 tablet by mouth every 8 hours as needed. albuterol HFA (PROVENTIL HFA, VENTOLIN HFA) 90 mcg/actuation inhaler Inhale 2 Puffs as instructed every 4 hours as needed for Wheezing/Shortness of Breath. aluminum-magnesium hydroxide-simethicone (RULOX) 200-200-20 mg/5 mL suspension Take 30 mL by mouth every 6 hours as needed. ammonium lactate (LAC-HYDRIN) 12 % cream Apply 1 application to affected area twice daily. ammonium lactate (LAC-HYDRIN) 12 % lotion APPLY TO AFFECTED AREAS TWICE DAILY. APPLY TO FEET AND LOWER LEGS Ascorbic Acid (VITAMIN C) 1,000 mg tablet TAKE (1) TABLET BY MOUTH ONCE DAILY. aspirin, enteric coated (ASPIRIN, ENTERIC COATED) 81 mg EC tablet TAKE (1) TABLET BY MOUTH DAILY IN THE MORNING. atorvastatin (LIPITOR) 10 mg tablet TAKE ONE-HALF (1/2) TABLET AT BEDTIME. blood sugar diagnostic (BLOOD GLUCOSE TEST) test strip Test blood sugar(s) 8 times daily. Dx: Type 1 DM - Uncontrolled E10.69 Insulin: Yes carbamide peroxide (DEBROX) 6.5 % otic solution Use 5 Drops in both ears twice daily. for 5 days then discontinue cholecalciferol (VITAMIN D3) 5,000 unit tab TAKE (1) TABLET BY MOUTH ONCE DAILY. citric jvkv-yuuipnzjrcm-imu carb (RENACIDIN) 1980.6 mg-59.4 mg-980.4mg/30mL irrigation USE 30ML INTRAVESICALRY VIA URINARY CATHETER 3 TIMES DAILY CLAMP 30MIN THEN DRAIN COMPOUNDED PRESCRIPTION Please provide [facility] glucocard test strips to check blood sugar four to six Times a day COMPOUNDED PRESCRIPTION Leg cath secure device. (Z92.89) Chronic indwelling Franco catheter Dextromethorphan-guaiFENesin (ROBITUSSIN DM) 10-200 mg/5 mL liqd Take 5-10 mL by mouth every 6 hours as needed. for cough diclofenac sodium (VOLTAREN) 1 % topical gel Apply 2 g to affected area four times daily. docusate sodium (COLACE) 100 mg capsule Take 1 capsule by mouth twice daily as needed for Constipation. ferrous sulfate 325 mg (65 mg iron) tablet Take 1 tablet by mouth twice daily with meals. FLUoxetine (PROZAC) 10 mg capsule Take (1) capsule by mouth daily. Give with 20 mg capsule for 30 mg total. FLUoxetine (PROZAC) 20 mg capsule Take (1) capsule by mouth daily. Give with 10 mg capsule for 30 mg total. fluticasone (FLONASE) 50 mcg/actuation nasal spray USE 2 SPRAYS IN EACH NOSTRIL ONCE DAILY. RINSE MOUTH AFTER USE. glucagon (GLUCAGON EMERGENCY KIT, HUMAN,) 1 mg solr INJECT 1MG INTRAMUSCULARLY IF UNCONSCIOUS, UNABLE TO FOLLOW SIMPLE INSTRUCTIONS OR SEIZURES TIMES 1 DOSE glucose 4 gram chewable tablet TAKE 4 TABLETS BY MOUTH NEEDED FOR LOW BLOOD SUGAR BELOW 70 insulin glargine (LANTUS SOLOSTAR U-100 INSULIN) 100 unit/mL (3 mL) inpn 14 units in the AM and 10 units at HS insulin lispro (HUMALOG KWIKPEN INSULIN) 100 unit/mL inpn INJECT 5-8 UNITS SUBCUTANEOUSLY WITH MEALS AND USE PER SLIDING SCALE SCALE DIRECTED insulin needles, DISPOSABLE, (ULTICARE PEN NEEDLE) 31 gauge x 5/16 ndle Use to inject insulin 5 times daily. ketoconazole (NIZORAL) 2 % shampoo APPLY LATHER TO AFFECTED SKIN ON FACE AND RINSE OFF AFTER 2-5 MIN. USE DAILY NEEDED Lancets lancets Test blood sugar(s) 8 times daily. Dx: Type 2 DM - Uncontrolled E11.65 Insulin: Yes lidocaine (LIDODERM) 5 % Apply 1 Patch as directed every 24 hours. Remove old patch prior to placing new patch. Location: right shoulder loratadine (CLARITIN) 10 mg tablet TAKE (1) TABLET BY MOUTH ONCE DAILY. melatonin 3 mg tablet Take 1 tablet by mouth daily at bedtime. metoprolol tartrate, short acting, (LOPRESSOR) 25 mg tablet TAKE (1/2) TABLET BY MOUTH TWICE DAILY. ND-ACID GAS RELIEF 80 mg chewable tablet CHEW 1 TABLET BY MOUTH WITH MEALS AND AT BEDTIME ofloxacin (FLOXIN) 0.3 % otic solution Use 5 Drops in the right ear twice daily. olopatadine (PAZEO) 0.7 % drop Use 1 Drop in eyes once daily. oxybutynin (DITROPAN) 5 mg tablet Take 1 tablet by mouth as needed (once daily as needed for bladder spasms). (Lower abdomen pain/stomach/Testicular pain) pantoprazole DR (PROTONIX) 40 mg tablet TAKE 1 TABLET BY MOUTH ONCE DAILY 1/2 HR BEFORE BREAKFAST polyethylene glycol 3350 (MIRALAX, GLYCOLAX) 17 gram/dose powder MIX 1 CAPFUL (17 GMS) IN 8 OZ OF WATER 2 TIMES DAILY. MIX 1 CAPFUL (17GRAMS) IN 8 OUNCES OF WATER AT 8PM A 3RD DOSE IF NO BM BY 8PM QUEtiapine (SEROQUEL) 100 mg tablet TAKE 1 TABLET BY MOUTH ONCE DAILY AT 5 PM QUEtiapine (SEROQUEL) 200 mg tablet TAKE (1) TABLET BY MOUTH TWICE A DAY. 8am and 8pm. senna (SENNA LAX) 8.6 mg tab Take 1 tablet by mouth twice daily. senna (SENNA) 8.6 mg tab Take 8.6 mg by mouth twice daily. senna (SENNA) 8.6 mg tab TAKE (1) TABLET BY MOUTH TWICE A DAY. benzonatate (TESSALON PERLES) 100 mg capsule Take 2 capsules by mouth three times daily as needed. bisacodyl (LAXATIVE, BISACODYL,) 10 mg supp 1 Suppository by RECTAL route once daily as needed. for constipation glucagon, human recombinant, (GLUCAGON EMERGENCY KIT, HUMAN,) 1 mg injection Inject 1 mg intravenously one time only for 1 dose. REVIEW OF SYSTEMS: GENERAL: Negative for: Weight loss or gain, Fever or Chills, Weakness and Sleep difficulties. Physical Examination: BP 130/74 Pulse 72 Resp 16 Wt 236 lb (107.0kg) BP w/Orthostatic Vitals Date and Time Orthostatic BP Orthostatic Pulse BP Pulse BP Position BP Site BP Cuff Size 05/31/18 1024 -- -- 130/74 72 Sitting Left Arm Large Adult Peak Flow Date and Time PF Resp 05/31/18 1024 -- 16 General appearance: Well appearing, alert, in no acute distress, well-hydrated, well nourished. Skin: Skin color, texture, turgor normal, + tunneling lesion at coccyx ~1/2 in depth, serosanguinous drainage, no surround erythema or fluctance, proximal erythematous rash about 2 inches in diameter at proximal portion of cleft Neuro: Gait normal. Sensation grossly intact. Reviewed chart, outside records, tests I personally interviewed, confirmed and edited the above information if obtained by others. TESTING: Glucose (mg/dL) Date Value 05/09/2018 283 Potassium (mmol/L) Date Value 05/09/2018 5.7 Sodium (mmol/L) Date Value 05/09/2018 136 Chloride (mmol/L) Date Value 05/09/2018 99 CO2 (mmol/L) Date Value 05/09/2018 24 Creatinine (mg/dL) Date Value 05/09/2018 3.84 BUN (mg/dL) Date Value 05/09/2018 64 Anion Gap (mmol/L) Date Value 05/09/2018 13 Calcium (mg/dL) Date Value 05/09/2018 8.8 Glucose (mg/dL) Date Value 05/09/2018 283 Potassium (mmol/L) Date Value 05/09/2018 5.7 Sodium (mmol/L) Date Value 05/09/2018 136 Chloride (mmol/L) Date Value 05/09/2018 99 CO2 (mmol/L) Date Value 05/09/2018 24 Creatinine (mg/dL) Date Value 05/09/2018 3.84 BUN (mg/dL) Date Value 05/09/2018 64 Anion Gap (mmol/L) Date Value 05/09/2018 13 Calcium (mg/dL) Date Value 05/09/2018 8.8 Protein, Total (g/dL) Date Value 05/09/2018 7.4 Albumin (g/dL) Date Value 05/09/2018 3.9 Bilirubin, Total (mg/dL) Date Value 05/09/2018 0.2 Alkaline Phosphatase (U/L) Date Value 05/09/2018 133 AST (U/L) Date Value 05/09/2018 23 ALT (U/L) Date Value 05/09/2018 16 Hemoglobin (g/dL) Date Value 05/09/2018 10.4 Hematocrit (%) Date Value 05/09/2018 33.8 WBC (k/uL) Date Value 05/09/2018 5.49 Cholesterol, Total (mg/dL) Date Value 03/15/2017 126 HDL Cholesterol (mg/dL) Date Value 03/15/2017 26 LDL Cholesterol (mg/dL) Date Value 03/15/2017 51 Triglyceride (mg/dL) Date Value 03/15/2017 245 Hemoglobin A1C Date Value Ref Range Status 05/09/2018 6.5 (H) 4.3 - 5.6 % Final Comment: [place] [employer] guidelines indicate that patients with HgbA1c in the range 5.7-6.4% are at increased risk for development of diabetes, and intervention by lifestyle modification may be beneficial. HgbA1c greater or equal to 6.5% is considered diagnostic of diabetes. 11/10/2017 7.5 (H) 4.3 - 5.6 % Final 03/15/2017 8.7 (H) 4.3 - 5.6 % Final Comment: [place] [employer] guidelines indicate that patients with HgbA1c in the range 5.7-6.4% are at increased risk for development of diabetes, and intervention by lifestyle modification may be beneficial. HgbA1c greater or equal to 6.5% is considered diagnostic of diabetes. 11/18/2016 8.8 (H) 4.3 - 5.6 % Final Comment: [place] [employer] guidelines indicate that patients with HgbA1c in the range 5.7-6.4% are at increased risk for development of diabetes, and intervention by lifestyle modification may be beneficial. HgbA1c greater or equal to 6.5% is considered diagnostic of diabetes. 08/09/2016 9.1 (H) 4.3 - 5.6 % Final Comment: [place] [employer] guidelines indicate that patients with HgbA1c in the range 5.7-6.4% are at increased risk for development of diabetes, and intervention by lifestyle modification may be beneficial. HgbA1c greater or equal to 6.5% is considered diagnostic of diabetes. Ejection Fraction - Result: 58 % Date: 03/30/2015 Time: 10:48:46 IMPRESSION: Mr. Morse is a 38 year old man presents for lesion and rash at coccyx / juana cleft. After my examination and review of data, I make the following recommendations. PLAN AND RECOMMENDATIONS: 1. Intertrigo - ICD9: 695.89, ICD10: L30.4 (primary diagnosis) - NYSTATIN 100,000 UNIT/GRAM TOPICAL CREAM 2. Pilonidal cyst - ICD9: 685.1, ICD10: L05.91 Exam consistent with pilonidal cyst, no prior occurrence is known - SODIUM CHLORIDE 0.75 X 39 BANDAGE - GAUZE BANDAGE 3 X 3 - CONSULT TO GENERAL SURGERY Advised: Keep areas at top of cleft that are red / erythematous with a small piece of gauze, wash and dry daily, apply fungal cream to this area in a light coat Lightly pack open wound with mesalt tape or other gauze tape, cover with gauze, cleanse with normal saline and change bandage daily. Make an appointment with general surgery Advised to go to ER if develops chest pain, shortness of breath, or severe worsening of symptoms. Discussed risks, benefits, alternatives, and potential side effects of medications. Mr. Morse expressed understanding and agreed with the plan. Georgi Lee APRN.PERSONNEL MONITOR WOUND Observed: 05/31/2018 Status: F Source: [place] CULTURE/STAIN 10:30 AM [facility] REPOSITORY Sp. Request/Comment: - Swab Smear Result - Moderate Gram positive cocci --> ABNORMAL ALERT Few --> ABNORMAL ALERT Gram positive bacilli --> ABNORMAL ALERT Rare Polymorphonuclear leukocytes Moderate Epithelial cells Culture Result - Moderate Actinomyces species --> ABNORMAL ALERT No susceptibility testing done. --> ABNORMAL ALERT Few skin natalie Performed By: #### WCUL #### [facility] [address] [place], [place] [address] CNOV Observed: 05/31/2018 Status: COMPLETED Source: [place] 10:20 AM [facility] REPOSITORY Office Visit (INTMWS) JARON MORSE ([id number]) 1980 M Date Time Provider Department 05/31/18 10:20 AM GEORGI LEE (CUCA) INTMWS During your visit today, we recorded the following information about you: Pulse Respiration Blood pressure Weight 72/minute 16/minute 130/74 107 kg Georgi Lee APRN.CNS 06/04/2018 4:50 PM Addendum OUTPATIENT VISIT DATE May 31, 2018 OUTPATIENT VISIT TYPE ESTABLISHED PRIMARY CARE PHYSICIAN: Francine Clark MD CHIEF COMPLAINT: Patient presents with: Wound Evaluation History of Present Illness: Jaron Yaquelin Morse is a 38 year old male who was last seen 05/22/2018 by Francine Clark MD He has been seen in the past for ACTIVE PROBLEM LIST Attention Deficit Disorder With Hyperactivity(314.01) Uncontrolled Type 1 Diabetes Mellitus (Hcc) Hydronephrosis Mild Intellectual Disabilities Suprapubic Catheter (Hcc) Ckd (Chronic Kidney Disease) Stage 4, Gfr 15-29 Ml/Min (Hcc) Generalized Dysmotility of Intestine Nephrogenic Diabetes Insipidus (Hcc) Seborrheic Dermatitis Allergic Rhinitis Dvt of Left Axillary Vein, Acute ([facility]) Presents today with a caregiver who provides much of the history. She reports a nurse came to do a physical assessment/wound assessment of the usp yesterday noticed a problem in the coccyx area, redness and some drainage. No prior known occurrence. A visit with provider was recommended. No current fever. Small amount of yellow drainage noted on the wound. No recent hospital or ED visits. No new medical problems or medications. Able to obtain medications. No problems with taking medications or note side effects. PAST MEDICAL HISTORY Diagnosis Date - Acute deep vein thrombosis (DVT) of right upper extremity (HCC) 03/19/15 Diagnosed during hospital admission; coumadin started - Acute embolism and thrombosis of deep vein of right upper extremity (HCC) 04/09/2015 - Acute gastritis without mention of hemorrhage 08/21/2012 - Allergic rhinitis - Anemia 03/07/2015 - Attention deficit disorder with hyperactivity(314.01) - Chronic renal failure Dr. 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 - Hand fracture 07/2012 right - Hemorrhage of gastrointestinal tract, unspecified 08/21/2012 - Hypernatremia 03/07/2015 - Incisional infection 02/04/16 - Nocturnal enuresis 04/28/2005 - OTHER MENTAL RETARDATION - MILD 02/07/2005 - Presence of suprapubic catheter ([facility]) Dr. Frias - Retention of urine, unspecified 08/20/2007 - Type I (juvenile type) diabetes mellitus without mention of complication, not stated as uncontrolled 02/04/2005 Dr. Olmedo PAST SURGICAL HISTORY Procedure Laterality Date - APPENDECTOMY 2000 - AV FUSE, UPPR ARM, CEPHALIC 12/17/15 Transposition left upper arm cephalic vein to brachial artery arteriovenous fistula creation - COLONOSCOP W/ OR W/O [facility] SPEC 12/04/14 decompression for pseudoobstruction - COLONOSCOPY 08/21/2012 and EGD - EGD W/REM FB STOMACH/DUOD 01/02/2017 removal of PEG tube with EGD to remove fragment - EGD W/REM FB STOMACH/DUOD 12/2016 - IR VASCULAR ACCESS TEAM PICC REPOSITION 04/04/2015 - MIDLINE INSERTION/CONSULT 03/03/2015 - PAST SURGICAL HISTORY OF Laparotomy - PAST SURGICAL HISTORY OF 01/22/2015 negative exploratory laparotomy for pneumatosis intestinalis high grade bowel obstruction - PICC LINE INSERT/CONSULT 04/02/2015 - PICC LINE INSERT/CONSULT 04/03/2015 - SUPRAPUBIC CATHETER FAMILY HISTORY Problem Relation Age of Onset - other (unknown) Other - Diabetes Father Diabetic, unsure of which type, did not want to provide additional FH details. Social History Substance Use Topics - Smoking status: Never Smoker - Smokeless tobacco: Never Used - Alcohol use No ALLERGIES: ALLERGIES Allergen Reactions - Seasonal Allergies Other: See Comments Environmental-ragweed MEDICATIONS acetaminophen (TYLENOL ARTHRITIS PAIN) 650 mg CR tablet Take 1 tablet by mouth every 8 hours as needed. albuterol HFA (PROVENTIL HFA, VENTOLIN HFA) 90 mcg/actuation inhaler Inhale 2 Puffs as instructed every 4 hours as needed for Wheezing/Shortness of Breath. aluminum-magnesium hydroxide-simethicone (RULOX) 200-200-20 mg/5 mL suspension Take 30 mL by mouth every 6 hours as needed. ammonium lactate (LAC-HYDRIN) 12 % cream Apply 1 application to affected area twice daily. ammonium lactate (LAC-HYDRIN) 12 % lotion APPLY TO AFFECTED AREAS TWICE DAILY. APPLY TO FEET AND LOWER LEGS Ascorbic Acid (VITAMIN C) 1,000 mg tablet TAKE (1) TABLET BY MOUTH ONCE DAILY. aspirin, enteric coated (ASPIRIN, ENTERIC COATED) 81 mg EC tablet TAKE (1) TABLET BY MOUTH DAILY IN THE MORNING. atorvastatin (LIPITOR) 10 mg tablet TAKE ONE-HALF (1/2) TABLET AT BEDTIME. blood sugar diagnostic (BLOOD GLUCOSE TEST) test strip Test blood sugar(s) 8 times daily. Dx: Type 1 DM - Uncontrolled E10.69 Insulin: Yes carbamide peroxide (DEBROX) 6.5 % otic solution Use 5 Drops in both ears twice daily. for 5 days then discontinue cholecalciferol (VITAMIN D3) 5,000 unit tab TAKE (1) TABLET BY MOUTH ONCE DAILY. citric gwex-ceyrnormdyn-khs carb (RENACIDIN) 1980.6 mg-59.4 mg-980.4mg/30mL irrigation USE 30ML INTRAVESICALRY VIA URINARY CATHETER 3 TIMES DAILY CLAMP 30MIN THEN DRAIN COMPOUNDED PRESCRIPTION Please provide ARAY glucocard test strips to check blood sugar four to six Times a day COMPOUNDED PRESCRIPTION Leg cath secure device. (Z92.89) Chronic indwelling Franco catheter Dextromethorphan-guaiFENesin (ROBITUSSIN DM) 10-200 mg/5 mL liqd Take 5-10 mL by mouth every 6 hours as needed. for cough diclofenac sodium (VOLTAREN) 1 % topical gel Apply 2 g to affected area four times daily. docusate sodium (COLACE) 100 mg capsule Take 1 capsule by mouth twice daily as needed for Constipation. ferrous sulfate 325 mg (65 mg iron) tablet Take 1 tablet by mouth twice daily with meals. FLUoxetine (PROZAC) 10 mg capsule Take (1) capsule by mouth daily. Give with 20 mg capsule for 30 mg total. FLUoxetine (PROZAC) 20 mg capsule Take (1) capsule by mouth daily. Give with 10 mg capsule for 30 mg total. fluticasone (FLONASE) 50 mcg/actuation nasal spray USE 2 SPRAYS IN EACH NOSTRIL ONCE DAILY. RINSE MOUTH AFTER USE. glucagon (GLUCAGON EMERGENCY KIT, HUMAN,) 1 mg solr INJECT 1MG INTRAMUSCULARLY IF UNCONSCIOUS, UNABLE TO FOLLOW SIMPLE INSTRUCTIONS OR SEIZURES TIMES 1 DOSE glucose 4 gram chewable tablet TAKE 4 TABLETS BY MOUTH NEEDED FOR LOW BLOOD SUGAR BELOW 70 insulin glargine (LANTUS SOLOSTAR U-100 INSULIN) 100 unit/mL (3 mL) inpn 14 units in the AM and 10 units at HS insulin lispro (HUMALOG KWIKPEN INSULIN) 100 unit/mL inpn INJECT 5-8 UNITS SUBCUTANEOUSLY WITH MEALS AND USE PER SLIDING SCALE SCALE DIRECTED insulin needles, DISPOSABLE, (ULTICARE PEN NEEDLE) 31 gauge x 5/16 ndle Use to inject insulin 5 times daily. ketoconazole (NIZORAL) 2 % shampoo APPLY LATHER TO AFFECTED SKIN ON FACE AND RINSE OFF AFTER 2-5 MIN. USE DAILY NEEDED Lancets lancets Test blood sugar(s) 8 times daily. Dx: Type 2 DM - Uncontrolled E11.65 Insulin: Yes lidocaine (LIDODERM) 5 % Apply 1 Patch as directed every 24 hours. Remove old patch prior to placing new patch. Location: right shoulder loratadine (CLARITIN) 10 mg tablet TAKE (1) TABLET BY MOUTH ONCE DAILY. melatonin 3 mg tablet Take 1 tablet by mouth daily at bedtime. metoprolol tartrate, short acting, (LOPRESSOR) 25 mg tablet TAKE (1/2) TABLET BY MOUTH TWICE DAILY. ND-ACID GAS RELIEF 80 mg chewable tablet CHEW 1 TABLET BY MOUTH WITH MEALS AND AT BEDTIME ofloxacin (FLOXIN) 0.3 % otic solution Use 5 Drops in the right ear twice daily. olopatadine (PAZEO) 0.7 % drop Use 1 Drop in eyes once daily. oxybutynin (DITROPAN) 5 mg tablet Take 1 tablet by mouth as needed (once daily as needed for bladder spasms). (Lower abdomen pain/stomach/Testicular pain) pantoprazole DR (PROTONIX) 40 mg tablet TAKE 1 TABLET BY MOUTH ONCE DAILY 1/2 HR BEFORE BREAKFAST polyethylene glycol 3350 (MIRALAX, GLYCOLAX) 17 gram/dose powder MIX 1 CAPFUL (17 GMS) IN 8 OZ OF WATER 2 TIMES DAILY. MIX 1 CAPFUL (17GRAMS) IN 8 OUNCES OF WATER AT 8PM A 3RD DOSE IF NO BM BY 8PM QUEtiapine (SEROQUEL) 100 mg tablet TAKE 1 TABLET BY MOUTH ONCE DAILY AT 5 PM QUEtiapine (SEROQUEL) 200 mg tablet TAKE (1) TABLET BY MOUTH TWICE A DAY. 8am and 8pm. senna (SENNA LAX) 8.6 mg tab Take 1 tablet by mouth twice daily. senna (SENNA) 8.6 mg tab Take 8.6 mg by mouth twice daily. senna (SENNA) 8.6 mg tab TAKE (1) TABLET BY MOUTH TWICE A DAY. benzonatate (TESSALON PERLES) 100 mg capsule Take 2 capsules by mouth three times daily as needed. bisacodyl (LAXATIVE, BISACODYL,) 10 mg supp 1 Suppository by RECTAL route once daily as needed. for constipation glucagon, human recombinant, (GLUCAGON EMERGENCY KIT, HUMAN,) 1 mg injection Inject 1 mg intravenously one time only for 1 dose. REVIEW OF SYSTEMS: GENERAL: Negative for: Weight loss or gain, Fever or Chills, Weakness and Sleep difficulties. Physical Examination: BP 130/74 Pulse 72 Resp 16 Wt 236 lb (107.0kg) BP w/Orthostatic Vitals Date and Time Orthostatic BP Orthostatic Pulse BP Pulse BP Position BP Site BP Cuff Size 05/31/18 1024 -- -- 130/74 72 Sitting Left Arm Large Adult Peak Flow Date and Time PF Resp 05/31/18 1024 -- 16 General appearance: Well appearing, alert, in no acute distress, well-hydrated, well nourished. Skin: Skin color, texture, turgor normal, + tunneling lesion at coccyx ~1/2 in depth, serosanguinous drainage, no surround erythema or fluctance, proximal erythematous rash about 2 inches in diameter at proximal portion of cleft Neuro: Gait normal. Sensation grossly intact. Reviewed chart, outside records, tests I personally interviewed, confirmed and edited the above information if obtained by others. TESTING: Glucose (mg/dL) Date Value 05/09/2018 283 Potassium (mmol/L) Date Value 05/09/2018 5.7 Sodium (mmol/L) Date Value 05/09/2018 136 Chloride (mmol/L) Date Value 05/09/2018 99 CO2 (mmol/L) Date Value 05/09/2018 24 Creatinine (mg/dL) Date Value 05/09/2018 3.84 BUN (mg/dL) Date Value 05/09/2018 64 Anion Gap (mmol/L) Date Value 05/09/2018 13 Calcium (mg/dL) Date Value 05/09/2018 8.8 Glucose (mg/dL) Date Value 05/09/2018 283 Potassium (mmol/L) Date Value 05/09/2018 5.7 Sodium (mmol/L) Date Value 05/09/2018 136 Chloride (mmol/L) Date Value 05/09/2018 99 CO2 (mmol/L) Date Value 05/09/2018 24 Creatinine (mg/dL) Date Value 05/09/2018 3.84 BUN (mg/dL) Date Value 05/09/2018 64 Anion Gap (mmol/L) Date Value 05/09/2018 13 Calcium (mg/dL) Date Value 05/09/2018 8.8 Protein, Total (g/dL) Date Value 05/09/2018 7.4 Albumin (g/dL) Date Value 05/09/2018 3.9 Bilirubin, Total (mg/dL) Date Value 05/09/2018 0.2 Alkaline Phosphatase (U/L) Date Value 05/09/2018 133 AST (U/L) Date Value 05/09/2018 23 ALT (U/L) Date Value 05/09/2018 16 Hemoglobin (g/dL) Date Value 05/09/2018 10.4 Hematocrit (%) Date Value 05/09/2018 33.8 WBC (k/uL) Date Value 05/09/2018 5.49 Cholesterol, Total (mg/dL) Date Value 03/15/2017 126 HDL Cholesterol (mg/dL) Date Value 03/15/2017 26 LDL Cholesterol (mg/dL) Date Value 03/15/2017 51 Triglyceride (mg/dL) Date Value 03/15/2017 245 Hemoglobin A1C Date Value Ref Range Status 05/09/2018 6.5 (H) 4.3 - 5.6 % Final Comment: [place] [employer] guidelines indicate that patients with HgbA1c in the range 5.7-6.4% are at increased risk for development of diabetes, and intervention by lifestyle modification may be beneficial. HgbA1c greater or equal to 6.5% is considered diagnostic of diabetes. 11/10/2017 7.5 (H) 4.3 - 5.6 % Final 03/15/2017 8.7 (H) 4.3 - 5.6 % Final Comment: [place] [employer] guidelines indicate that patients with HgbA1c in the range 5.7-6.4% are at increased risk for development of diabetes, and intervention by lifestyle modification may be beneficial. HgbA1c greater or equal to 6.5% is considered diagnostic of diabetes. 11/18/2016 8.8 (H) 4.3 - 5.6 % Final Comment: [place] [employer] guidelines indicate that patients with HgbA1c in the range 5.7-6.4% are at increased risk for development of diabetes, and intervention by lifestyle modification may be beneficial. HgbA1c greater or equal to 6.5% is considered diagnostic of diabetes. 08/09/2016 9.1 (H) 4.3 - 5.6 % Final Comment: [place] [employer] guidelines indicate that patients with HgbA1c in the range 5.7-6.4% are at increased risk for development of diabetes, and intervention by lifestyle modification may be beneficial. HgbA1c greater or equal to 6.5% is considered diagnostic of diabetes. Ejection Fraction - Result: 58 % Date: 03/30/2015 Time: 10:48:46 IMPRESSION: Mr. Morse is a 38 year old man presents for lesion and rash at coccyx / cleft. After my examination and review of data, I make the following recommendations. PLAN AND RECOMMENDATIONS: 1. Intertrigo - ICD9: 695.89, ICD10: L30.4 (primary diagnosis) - NYSTATIN 100,000 UNIT/GRAM TOPICAL CREAM 2. Pilonidal cyst - ICD9: 685.1, ICD10: L05.91 Exam consistent with pilonidal cyst, no prior occurrence is known - SODIUM CHLORIDE 0.75 X 39 BANDAGE - GAUZE BANDAGE 3 X 3 - CONSULT TO GENERAL SURGERY Advised: Keep areas at top of juana cleft that are red / erythematous with a small piece of gauze, wash and dry daily, apply fungal cream to this area in a light coat Lightly pack open wound with mesalt tape or other gauze tape, cover with gauze, cleanse with normal saline and change bandage daily. Make an appointment with general surgery Advised to go to ER if develops chest pain, shortness of breath, or severe worsening of symptoms. Discussed risks, benefits, alternatives, and potential side effects of medications. Mr. Morse expressed understanding and agreed with the plan. TY Shepard APRN.CNS 05/31/2018 10:53 AM Signed Keep areas at top of cleft that are red / erythematous with a small piece of gauze, wash and dry daily, apply fungal cream to this area in a light coat Lightly pack open wound with mesalt tape or other gauze tape, cover with gauze, cleanse with normal saline and change bandage daily. Make an appointment with general surgery Georgi Lee APRN.CNS 05/31/2018 11:06 AM Signed Addended by: GEORGI ANGELO on: 05/31/2018 11:06 AM Modules accepted: Orders Referring Provider: SELF [200] Allergies As of Date: 05/31/2018 Noted Allergy Reaction SEASONAL ALLERGIES 12/03/2012 14 - Other: See Comments Comments: Environmental-ragweed Date Reviewed: 05/31/2018 Reviewed by: Kassandra Rueda LPN - Fully Assessed Reason for Visit: Wound Evaluation [1021] Primary Visit Diagnosis:Intertrigo [L30.4] Other Visit Diagnosis:Pilonidal cyst [L05.91] Order(s):nystatin (MYCOSTATIN) creamApply 1 application to affected area twice daily. apply to cleft rash until rash is gone then one more weekDisp: 1 TubeRfl: 1 Sodium Chloride (MESALT) 0.75 X 39 bndgApply 1 application to affected area once daily. lightly pack / insert into wound area at coccyx with 2-3 wick enternally, change daily.Disp: 2 EachRfl: 2 Gauze Bandage 3 X 3 bndgApply 1 application to affected area once daily.Disp: 30 EachRfl: 1 CONSULT TO GENERAL SURGERY [1312] Order #: [id number]: 1 WOUND CULTURE AND GRAM STAIN [SQWCUL] Order #: [id number]. #:[id number] Prescriptions as of 05/31/2018 Sig: ACETAMINOPHEN ER 650 MG TABLE* Take 1 tablet by mouth every * ALBUTEROL SULFATE HFA 90 MCG/* Inhale 2 Puffs as instructed * ALUMINUM-MAG HYDROXIDE-SIMETH* Take 30 mL by mouth every 6 h* AMMONIUM LACTATE 12 % TOPICAL* Apply 1 application to affect* AMMONIUM LACTATE 12 % LOTION APPLY TO AFFECTED AREAS TWICE* ASCORBIC ACID (VITAMIN C) 1,0* TAKE (1) TABLET BY MOUTH ONCE* ASPIRIN 81 MG TABLET,DELAYED * TAKE (1) TABLET BY MOUTH JACQUELIN* ATORVASTATIN 10 MG TABLET TAKE ONE-HALF (1/2) TABLET AT* BLOOD SUGAR DIAGNOSTIC STRIPS Test blood sugar(s) 8 times d* CARBAMIDE PEROXIDE 6.5 % EAR * Use 5 Drops in both ears twic* CHOLECALCIFEROL (VITAMIN D3) * TAKE (1) TABLET BY MOUTH ONCE* CITRIC AC 1980.6 MG-GLUCONO 5* USE 30ML INTRAVESICALRY VIA U* COMPOUNDED PRESCRIPTION Please provide ARKKAY glucoca* COMPOUNDED PRESCRIPTION Leg cath secure device. (Z92* DEXTROMETHORPHAN-GUAIFENESIN * Take 5-10 mL by mouth every 6* DICLOFENAC 1 % TOPICAL GEL Apply 2 g to affected area fo* DOCUSATE SODIUM 100 MG CAPSULE Take 1 capsule by mouth twice* FERROUS SULFATE 325 MG (65 MG* Take 1 tablet by mouth twice * FLUOXETINE 10 MG CAPSULE Take (1) capsule by mouth vasyl* FLUOXETINE 20 MG CAPSULE Take (1) capsule by mouth vasyl* FLUTICASONE 50 MCG/ACTUATION * USE 2 SPRAYS IN EACH NOSTRIL * GLUCAGON (HUMAN RECOMBINANT) * INJECT 1MG INTRAMUSCULARLY IF* GLUCOSE 4 GRAM CHEWABLE TABLET TAKE 4 TABLETS BY MOUTH NE* INSULIN GLARGINE (U-100) 100 * 14 units in the AM and 10 uni* PEN NEEDLE, DIABETIC 31 GAUGE* Use to inject insulin 5 times* KETOCONAZOLE 2 % SHAMPOO APPLY LATHER TO AFFECTED SKIN* LANCETS Test blood sugar(s) 8 times d* LIDOCAINE 5 % TOPICAL PATCH Apply 1 Patch as directed kendal* LORATADINE 10 MG TABLET TAKE (1) TABLET BY MOUTH ONCE* MELATONIN 3 MG TABLET Take 1 tablet by mouth daily * METOPROLOL TARTRATE 25 MG TAB* TAKE (1/2) TABLET BY MOUTH TW* ND-ACID GAS RELIEF 80 MG CHEW* CHEW 1 TABLET BY MOUTH WITH M* OFLOXACIN 0.3 % EAR DROPS Use 5 Drops in the right ear * OLOPATADINE 0.7 % EYE DROPS Use 1 Drop in eyes once daily. OXYBUTYNIN CHLORIDE 5 MG TABL* Take 1 tablet by mouth as nee* PANTOPRAZOLE 40 MG TABLET,DEL* TAKE 1 TABLET BY MOUTH ONCE D* POLYETHYLENE GLYCOL 3350 17 G* MIX 1 CAPFUL (17 GMS) IN 8 OZ* QUETIAPINE 100 MG TABLET TAKE 1 TABLET BY MOUTH ONCE D* QUETIAPINE 200 MG TABLET TAKE (1) TABLET BY MOUTH TWIC* SENNOSIDES 8.6 MG TABLET Take 1 tablet by mouth twice * SENNOSIDES 8.6 MG TABLET Take 8.6 mg by mouth twice da* SENNOSIDES 8.6 MG TABLET TAKE (1) TABLET BY MOUTH TWIC* X INSULIN LISPRO (U-100) 100 UN* INJECT 5-8 UNITS SUBCUTANEOUS* BENZONATATE 100 MG CAPSULE Take 2 capsules by mouth thre* Patient not taking: Reported on 05/31/2018 BISACODYL 10 MG RECTAL SUPPOS* 1 Suppository by RECTAL route* Patient not taking: Reported on 03/05/2018 GAUZE BANDAGE 3 X 3 Apply 1 application to affect* GLUCAGON (HUMAN RECOMBINANT) * Inject 1 mg intravenously one* NYSTATIN 100,000 UNIT/GRAM TO* Apply 1 application to affect* SODIUM CHLORIDE 0.75 X 39 B* Apply 1 application to affect* Problem List As Of Date 05/31/2018 Noted Resolved ATTN DEFICIT W HYPERACT [F90.9] INVALID FOR* Uncontrolled type 1 diabetes mellitus (HCC) [E1*INVALID FOR* HYDRONEPHROSIS [N13.30] INVALID FOR* 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 Allergic rhinitis [J30.9] DVT of left axillary vein, acute (HCC) [I82.A12]INVALID FOR* Other instructions from your clinician: Keep areas at top of juana cleft that are red / erythematous with a small piece of gauze, wash and dry daily, apply fungal cream to this area in a light coat Lightly pack open wound with mesalt tape or other gauze tape, cover with gauze, cleanse with normal saline and change bandage daily. Make an appointment with general surgery Prescriptions ordered this encounter Disp Refills Start End NYSTATIN 100,000 UNIT/GRAM TOPICAL C* 1 Tu* 1 05/31/2018 Route: TOPICAL Sig: Apply 1 application to affected area twice daily. apply to cleft rash until rash is gone then one more week SODIUM CHLORIDE 0.75 X 39 BANDAGE 2 Ea* 2 05/31/2018 Route: TOPICAL Sig: Apply 1 application to affected area once daily. lightly pack / insert into wound area at coccyx with 2-3 wick enternally, change daily. GAUZE BANDAGE 3 X 3 30 E* 1 05/31/2018 Route: TOPICAL Sig: Apply 1 application to affected area once daily. Encounter Status:Closed by GEORGI ANGELO on 05/31/18 AV FISTULA/DIALYSIS GRAFT Observed: 05/29/2018 Status: F Source: BARTOW SCAN 4:32 PM [facility] REPOSITORY [facility] Cardiovascular Services [address] [place] [id number] AV Fistula/Dialysis Graft Scan 05/29/18 1426 MR#: [id number] Acct: [id number] Name: MINIJARON D Rep #: [id number] : 1980 38 From: Hugh Abreu MD Attending Dr: Taylor Owens PA-C Status: REG CLI Ordering Dr: Taylor Owens PA-C Date: 05/29/18 Location: Sex: M C Admitted: RIGHT Inflow Art = 233/137 cm/s Inflow Vol Flow =282 cc/min Prox Anast =954/568 cm/s Prox Anast Vol Xcfb=2314 cc/min Prox Seepe=034/141 cm/s. Prox Graft Vol Flow =1040 cc/min Mid Graft =102/61.5 cm/s Mid Graft Vol Gick=154 cc/min Distal Graft =107/69.7 cm/s Distal Graft Vol Flow= 859 cc/min Outflow at shoulder =109/70.7 cm/s Outflow ar shoulder Vol Flow=] 647 cc/min. Interpretation Summary No evidence for right arm venous thrombosis. Volume flow throughout the fistula appears to be quite adequate to slightly high flow. No focal areas of stenosis noted. Ordering Physician: Taylor Owens PA-C Performed By: Lloyd Hoyt, RVT 05/29/18 1631 Date Hugh Abreu MD CC: Taylor Owens PA-C; Francine Clark MD Date Dictated: 05/29/18 1426 Date Transcribed: 05/29/181630 Cryogenic Transport Driver: Signed KIT Observed: 05/21/2018 Status: COMPLETED Source: OG 12:00 AM [facility] REPOSITORY Telephone (INTMWS) JARON MORSE ([id number]) 1980 M Date Time Provider Department 05/21/18 FRANCINE CLARK INTMWS During your visit today, we recorded the following information about you: Roz Burk Germaine FACTORY ASSEMBLER 05/21/2018 3:00 PM Signed Leslie with [facility] [phone] called very concerned with patient's health. Seen and he is declining with his kidney function. Has been seen numerous times for hematuria, painful back and abdomen, weakness and mobility declining. His weblogic administrator has been contacted and they can not see him before 06-26-18. He already has an apt 06-29-18. BUN and creatinine is 76 and 4.73. GFR 14 at last ER visit Monday. They feel he needs to be on dialysis sooner than later. Please contact [facility] with recommendation. Roz Herron LPN 05/24/2018 11:20 AM Signed Routing to doctor bail bond agent. Dr. Clark out of the office.Roz Lee APRN.PERSONNEL MONITOR 05/24/2018 1:17 PM Signed Routed to doctor bail bond agent previously Was just seen in the office by PCP. Please review with [facility]: Was advised at his last visit with caregiver who attended him that if he is not having symptoms that warrant dialysis no need to pursue dialysis. Advised patient he contact weblogic administrator if he has concerning symptoms so he can be evaluated in the office instead of the ER, such as a sudden change in condition such as lethargy intractable nausea or vomiting signs of fluid overload such as weight gain or an elevated potassium. Khloe Pruett LPN 05/24/2018 1:48 PM Signed Message left with number to return call to a nurse. Addy Smith, 05/24/2018 6:20 PM Signed Agree with recommendation, will continue with his local [facility] observation and keep us posted through [facility] Funmilayo Petersen, RN, RN 05/25/2018 1:20 PM Signed [place] returns call, message given with understanding. Allergies As of Date: 05/21/2018 Noted Allergy Reaction SEASONAL ALLERGIES 12/03/2012 14 - Other: See Comments Comments: Environmental-ragweed Date Reviewed: 04/27/2018 Reviewed by: Opal Barnes Ma - Fully Assessed Reason for Visit: [facility] [Other] Prescriptions as of 05/21/2018 Sig: COMPOUNDED PRESCRIPTION Leg cath secure device. (Z92* X LIDOCAINE 5 % TOPICAL PATCH Apply 1 Patch as directed kendal* X GLUCAGON (HUMAN RECOMBINANT) * INJECT 1MG INTRAMUSCULARLY IF* X ACETAMINOPHEN ER 650 MG TABLE* Take 1 tablet by mouth every * X METOPROLOL TARTRATE 25 MG TAB* TAKE (1/2) TABLET BY MOUTH TW* X VITAMIN C 1,000 MG TABLET TAKE (1) TABLET BY MOUTH ONCE* X MELATONIN 3 MG TABLET Take 1 tablet by mouth daily * X AMMONIUM LACTATE 12 % LOTION APPLY TO AFFECTED AREAS TWICE* X SENNA 8.6 MG TABLET TAKE (1) TABLET BY MOUTH TWIC* X POLYETHYLENE GLYCOL 3350 17 G* MIX 1 CAPFUL (17 GMS) IN 8 OZ* X ATORVASTATIN 10 MG TABLET TAKE ONE-HALF (1/2) TABLET AT* X CHOLECALCIFEROL (VITAMIN D3) * TAKE (1) TABLET BY MOUTH ONCE* X LORATADINE 10 MG TABLET TAKE (1) TABLET BY MOUTH ONCE* BENZONATATE 100 MG CAPSULE Take 2 capsules by mouth thre* OFLOXACIN 0.3 % EAR DROPS Use 5 Drops in the right ear * X ALBUTEROL SULFATE HFA 90 MCG/* Inhale 2 Puffs as instructed * GLUCAGON (HUMAN RECOMBINANT) * Inject 1 mg intravenously one* BLOOD SUGAR DIAGNOSTIC STRIPS Test blood sugar(s) 8 times d* LANCETS Test blood sugar(s) 8 times d* X INSULIN LISPRO (U-100) 100 UN* INJECT 5-8 UNITS SUBCUTANEOUS* X INSULIN GLARGINE (U-100) 100 * 14 units in the AM and 10 uni* X PEN NEEDLE, DIABETIC 31 GAUGE* Use to inject insulin 5 times* X FERROUS SULFATE 325 MG (65 MG* Take 325 mg by mouth twice da* X DEXTROMETHORPHAN-GUAIFENESIN * Take 5-10 mL by mouth every 6* X FLUTICASONE 50 MCG/ACTUATION * USE 2 SPRAYS IN EACH NOSTRIL * SENNOSIDES 8.6 MG TABLET Take 8.6 mg by mouth twice da* X GLUCOSE 4 GRAM CHEWABLE TABLET TAKE 4 TABLETS BY MOUTH NE* X APIXABAN 2.5 MG TABLET Take 1 tablet by mouth twice * Patient not taking: Reported on 03/05/2018 X FLUOXETINE 20 MG CAPSULE Take 30 mg by mouth once jacquelin* X POLYETHYLENE GLYCOL 3350 17 G* Mix 1 capful (17 GMS) in 8 oz* X RENACIDIN 1980.6 MG-59.4MG-98* USE 30ML INTRAVESICALRY VIA U* CARBAMIDE PEROXIDE 6.5 % EAR * Use 5 Drops in both ears twic* X KETOCONAZOLE 2 % SHAMPOO APPLY LATHER TO AFFECTED SKIN* ND-ACID GAS RELIEF 80 MG CHEW* CHEW 1 TABLET BY MOUTH WITH M* X ASPIRIN 81 MG TABLET,DELAYED * TAKE (1) TABLET BY MOUTH JACQUELIN* X PANTOPRAZOLE 40 MG TABLET,DEL* TAKE 1 TABLET BY MOUTH ONCE D* X OLOPATADINE 0.7 % EYE DROPS Use 1 Drop in eyes once daily. SENNOSIDES 8.6 MG TABLET Take 1 tablet by mouth twice * X OXYBUTYNIN CHLORIDE 5 MG TABL* Take 1 tablet by mouth as nee* X QUETIAPINE 200 MG TABLET TAKE (1) TABLET BY MOUTH TWIC* X QUETIAPINE 100 MG TABLET TAKE 1 TABLET BY MOUTH ONCE D* AMMONIUM LACTATE 12 % TOPICAL* Apply 1 application to affect* COMPOUNDED PRESCRIPTION Please provide ARKKAY glucoca* BISACODYL 10 MG RECTAL SUPPOS* 1 Suppository by RECTAL route* Patient not taking: Reported on 03/05/2018 DOCUSATE SODIUM 100 MG CAPSULE Take 1 capsule by mouth twice* Problem List As Of Date 05/21/2018 Noted Resolved ATTN DEFICIT W HYPERACT [F90.9] INVALID FOR* Uncontrolled type 1 diabetes mellitus (HCC) [E1*INVALID FOR* HYDRONEPHROSIS [N13.30] INVALID FOR* 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 Allergic rhinitis [J30.9] DVT of left axillary vein, acute (HCC) [I82.A12]INVALID FOR* Encounter Status:Closed by ADDY SMITH on 05/24/18 BASIC METABOLIC Collected: 05/18/2018 Status: F Source: GREG PROFILE (BMP) 8:55 AM [facility] REPOSITORY TYPE CODE TESTS RESULT OUT OF RANGE REFERENCE UNITS LAB L501.0100 74-106 mg/dL High GLU 146 Result Comment: Fasting Glucose result greater than or equal to 126 mg/dL suggests DIABETES MELLITUS per A.D.A. criteria. Please note revised GLUCOSE reference range effective 2017. LAB L501.1000 7-18 mg/dL High BUN 76 LAB L501.1100 0.70-1.30 mg/dL High CREAT,SERUM 4.73 Result Comment: The validity of the calculated GFR AND GFRAA in patients over 70 years has not been determined. Clinical correlation is essential. LAB L501.1110 >60 mL/min Low EST GFR 15 Result Comment: Non- GFR Calc LAB L501.1115 >60 mL/min Low EST GFR - AA 18 Result Comment: GFR Calc LAB L501.1255 ml/min Normal Estimated CRCL 18.08 LAB L501.1300 10-20 RATIO Normal BUN/CRE 16.1 LAB L501.2200 8.5-10 mg/dL Low .1 CA 8.2 LAB L501.5300 136-14 mmol/L Normal 5 NA 143 LAB L501.5600 3.5-5. mmol/L High 1 K 5.2 LAB L501.5900 98-107 mmol/L Normal CL 107 LAB L501.6100 21.0-3 mmol/L Normal 2.0 CO2 28.0 LAB L501.6200 5-15 Normal GAP 8 Performed By: #### L500.2500 #### [facility] [address] [place], [address] DISCHARGE INSTRUCTION Observed: 05/18/2018 Status: F Source: BARTOW 6:58 AM [facility] REPOSITORY [facility] Medical Records Department [address] [place] [address] Discharge Instruction 05/18/18 0657 MR#: [id number] Acct: [id number] Name: JARON MORSE Yaquelin Rep #: [id number] : 1980 38 From: Jason Bal MD PCP: Francine Clark MD Status: REG ER ED Disposition - Plan for ED Patient: Chief Complaint: Complaint Instructions: ED Hematuria Referrals: Francine Clark MD [Primary Care Provider] - Jose Juan Lopez MD [STAFF PHYSICIAN] - What to do if you have Problems For any increased pain, shortness of breath, bleeding, nausea or vomiting, chest pain, or any unexpected problems, contact your Primary Care Provider. Call [facility] ([phone]) or report to the closest Emergency Room. Call 911 if necessary. 05/18/18 0658 <Electronically signed by Jasno Bal MD> Date Jason Bal MD Cosigner Signature (If Indicated): Date CC: Francine Clark MD EMERGENCY DEPARTMENT Observed: 05/18/2018 Status: F Source: BARTOW SUMMARY 6:57 AM [facility] REPOSITORY [facility] Medical Records Department [address] [place] [address] Emergency Department Summary 05/18/18 0655 MR#: [id number] Acct: [id number] Name: JARON MORSE Rep #: [id number] : 1980 38 From: Jason Bal MD PCP: Francine Clark MD Status: REG ER - ER Visit Summary Date of Service: 05/18/18 Chief Complaint: Hematuria History of Present Illness: The patient is a 38 M who presents with hematuria. This been occurring intermittently over the past week. He does have a prior history of hematuria which she was hospitalized for. They irrigated it at the facility tonight and it seemed to be falling however it again became clogged and after through irrigation attempts was not draining so he was sent here. Between when transportation was called and the patient arrived here his catheter again began draining and he had greater than 1 L in the bag on arrival here. He complains of some mild nausea but really no other complaints. Physical Examination: Afebrile hypertensive but vitals otherwise unremarkable Heart regular rate and rhythm Lungs clear Abdomen soft nontender nondistended suprapubic catheter site clean and dry Alert Test Results: CBC notable for hemoglobin 10.5. Chemistries notable for potassium 5.5, BUN 76, creatinine of 4.98 which does appear to be slightly elevated from baseline. Urinalysis shows 0-5 RBCs there is 25-50 WBCs 1+ bacteria but this was taken from the bag. Emergency Department Course and Treatment: Patient's catheter is easily draining and easily irrigated and flushed. His urine does not show any signs of active bleeding. This does show pyuria but was not a sterile specimen. He is currently being treated for UTI with antibiotics regardless. His potassium is slightly elevated and creatinine slightly elevated baseline consistent with dehydration. We will give the patient a liter of IV fluids and just redraw to recheck potassium. If normalized I believe the patient can be discharged home. Treatment Plan: [] Disposition: Discharge Impression: Hematuria Dehydration This note was generated with righTune dictation software. It may contain incorrect words, spelling, and punctuation that were not noted in review of the chart prior to signing ED Disposition - Plan for ED Patient: Chief Complaint: Complaint Referrals: Francine Clark MD [Primary Care Provider] - What to do if you have Problems For any increased pain, shortness of breath, bleeding, nausea or vomiting, chest pain, or any unexpected problems, contact your Primary Care Provider. Call [facility] ([phone]) or report to the closest Emergency Room. Call 911 if necessary. 05/18/18 0657 <Electronically signed by Jason Bal MD> Date Jason Bal MD Cosigner Signature (If Indicated): Date CC: Francine Clark MD URINALYSIS, COMPLETE Collected: 05/18/2018 Status: F Source: GREG 6:24 AM [facility] REPOSITORY Order Comment: Order Date: 05/18/18 Has pt arrived? Y How was Urine Obtained? CATHETER SPECIMEN TYPE CODE TESTS RESULT OUT OF RANGE REFERENCE UNITS LAB L400.3000 Yellow COLOR Normal Straw LAB L400.3050 Clear Normal CLARITY Sl. Cloudy LAB L400.3200 Normal mg/dl High GLUCOSE, UR 100 LAB L400.3300 Negative mg/dL Normal BILIRUBIN URINE Negative LAB L400.3400 Negative mg/dl Normal KETONE UR Negative LAB L400.3465 1.002-1.030 Normal SP.GR. DIPSTX 1.010 LAB L400.3550 5.0 - 8.0 pH UR Normal 6.0 LAB L400.3600 Negative mg/dl High PROT 30 DIPSTX LAB L400.3700 Normal mg/dl Normal UROBILI Normal LAB L400.3750 Negative Normal NITRITE UR Negative LAB L400.3780 Negative /ul High OCCULT BLOOD-UR 150 LAB L400.3800 Negative /ul High LEUK ESTERASE 500 LAB L400.4050 0-5 /hpf WBC Normal 25-50 SEEN LAB L400.4100 0-5 /hpf Normal RBC-UA 0-5 SEEN LAB L400.4150 0-5 /hpf SQUAM Normal EPI 0-5 SEEN LAB L400.4300 None Seen /hpf 1+ Normal BACTERIA LAB L400.4350 <or=2+ /hpf 0 Normal MUCUS, URINE SEEN Performed By: #### L400.0001 #### [facility] [address] [place], [address] Observed: 05/18/2018 Status: F Source: BARTOW CULTURE, URINE 6:24 AM [facility] REPOSITORY Has pt arrived? Y Urine Culture ORGANISM 1: Citrobacter freundii [place] Count >100,000 ORGANISM 2: Enterococcus faecalis [place] Count 11,000-25,000 Citrobacter freundii: REACTION Amoxacillin/Clavulanic Acid $ >=32 R Cefazolin $ >=64 R Cefepime $ <=1 S Ceftriaxone $ 16 I Ciprofloxacin $ 1 S Ertapenim $$$ <=0.5 S Gentamicin $ <=1 S Imipenem *NF 0.5 S Levofloxacin $ 1 S Nitrofurantoin $ <=16 S Tobramycin $ <=1 S Trimethoprim/Sulfametho $ >=320 R (NF) indicates non-formulary drug at [facility]. Approval by Infectious Disease Specialist required before non-formulary drugs may be ordered and/or dispensed. Enterococcus faecalis: REACTION Ampicillin $ <=2 S Benzylpenicillin NF 4 S Ciprofloxacin $ >=8 R Gentamicin SYN-R R Levofloxacin $ >=8 R Linezolid $$$$ 2 S Nitrofurantoin $ <=16 S Streptomycin $ SYN-R R Tetracycline NF >=16 R Vancomycin $ 1 S (NF) indicates non-formulary drug at [facility]. Approval by Infectious Disease Specialist required before non-formulary drugs may be ordered and/or dispensed. * CLSI guidelines does not recommend testing of cephalosporins. This interpretation is deduced from Beta-lactam/penicillin results. Performed By: #### M100.0650 #### [facility] [address] [place], [place], [address] CBC W/DIFF, AUTOMATED Collected: 05/18/2018 Status: F Source: BARTOW 6:15 AM [facility] REPOSITORY TYPE CODE TESTS RESULT OUT OF RANGE REFERENCE UNITS LAB L100.1000 4.4-11.0 K/mm3 Normal WBC 6.2 LAB L100.1200 4.6-6.2 M/mm3 Low RBC 3.29 LAB L100.1300 13.0-16.5 g/dl Low HGB 10.5 LAB L100.1400 40-54 % Low HCT 32.9 LAB L100.1500 80-94 fL High MCV 100.0 LAB L100.1600 27.0-32.0 pg Normal MCH 31.9 LAB L100.1700 32-36 g/gl Low MCHC 31.9 LAB L100.1810 11.6-14.6 % Normal RDW CV 14.0 LAB L100.1820 35.1-43.9 fl High RDW SD 51.6 LAB L100.1900 150-450 K/mm3 Normal PLT 193 LAB L100.2000 6.2-12.0 fl Normal MPV 10.1 LAB L100.2100 47-70 % High NEUT% 71.3 LAB L100.2200 19-41 % Low LY% 16.2 LAB L100.2300 0-10 % Normal MONO% 8.7 LAB L100.2400 0-5 % Normal EO% 3.6 LAB L100.2500 0-1 % Normal BASO% 0.2 LAB L100.2550 0.0-0.9 % Normal IM GRAN % 0.000 Result Comment: IG% - Immature Granulocytes (promyelocytes, myelocytes and metamyelocytes) > 1% indicates that a LEFT SHIFT is Present. LAB L100.2620 2.0-7.7 X10 3/uL Normal Absolute Neut 4.4 LAB L100.2720 0.83-4.51 X10 3/ul Normal Absolute Lymph 1.00 Performed By: #### L100.0100 #### [facility] [address] [place], [address] BASIC METABOLIC Collected: 05/18/2018 Status: F Source: GREG PROFILE ([facility]) 6:15 AM [facility] REPOSITORY TYPE CODE TESTS RESULT OUT OF RANGE REFERENCE UNITS LAB L501.0100 74-106 mg/dL High GLU 172 Result Comment: Fasting Glucose result greater than or equal to 126 mg/dL suggests DIABETES MELLITUS per A.D.A. criteria. Please note revised GLUCOSE reference range effective 2017. LAB L501.1000 7-18 mg/dL High BUN 76 LAB L501.1100 0.70-1.30 mg/dL High CREAT,SERUM 4.98 Result Comment: The validity of the calculated GFR AND GFRAA in patients over 70 years has not been determined. Clinical correlation is essential. LAB L501.1110 >60 mL/min Low EST GFR 14 Result Comment: Non- GFR Calc LAB L501.1115 >60 mL/min Low EST GFR - AA 17 Result Comment: GFR Calc LAB L501.1255 ml/min Normal Estimated CRCL 17.17 LAB L501.1300 10-20 RATIO Normal BUN/CRE 15.3 LAB L501.2200 8.5-10 mg/dL Low .1 CA 8.3 LAB L501.5300 136-14 mmol/L Normal 5 NA 142 LAB L501.5600 3.5-5. mmol/L High 1 K 5.5 LAB L501.5900 98-107 mmol/L Normal CL 106 LAB L501.6100 21.0-3 mmol/L Normal 2.0 CO2 26.0 LAB L501.6200 5-15 Normal GAP 10 Performed By: #### L500.2500 #### [facility] [address] [place], [address] HEMOGLOBIN A1C Collected: 05/18/2018 Status: F Source: BARTOW 6:15 AM [facility] REPOSITORY TYPE CODE TESTS RESULT OUT OF RANGE REFERENCE UNITS LAB L501.9985 4.2-6.3 % High HGB A1C 7.4 Performed By: #### L501.9985 #### [facility] [address] [facility] [place], [address] UA Collected: 05/11/2018 Status: F Source: [facility] 2:02 [facility] REPOSITORY TYPE CODE TESTS RESULT OUT OF RANGE REFERENCE UNITS LAB SPCUA(PARVEZ NC) UA Specimen Type Catheter LAB CLRUA(PARVEZ NC) UA Color Yellow LAB APPUA(PARVEZ NC) UA Appear Unknown Haven LAB SGUA(LOIN C) UA Spec Unknown Grav 1.010 LAB GLUA(LOIN Negative mg/dL C) UA Glucose Unknown 100 LAB BILUA(PARVEZ Neg-Trace NC) UA Bili Negative LAB KETUA(PARVEZ Neg-Trace mg/dL NC) UA Ketones Negative LAB BLDUA(PARVEZ Neg-Trace NC) UA Blood Unknown Large LAB PHUA(LOIN 5.0 - 8.0 C) UA pH 7.0 LAB PROUA(PARVEZ Negative mg/dL NC) UA Protein Negative LAB UROUA(PARVEZ E.U./dL NC) UA Urobilinogen 0.2 LAB NITUA(PARVEZ Negative NC) UA Nitrite Negative LAB LEUUA(PARVEZ Negative NC) UA Leuk Est Unknown Moderate Performed By: #### UAMIC, UA #### [place] [address] UAMIC Collected: 05/11/2018 Status: F Source: [facility] 2:02 [facility] REPOSITORY TYPE CODE TESTS RESULT OUT OF RANGE REFERENCE UNITS LAB RBCUA(LOIN 0-2 /hpf C) UA RBC Unknown 10-20 LAB WBCUA(LOIN 0-5 /hpf C) UA WBC Negative LAB EPIUA(LOIN 0-20 /hpf C) UA Squam Epithelial Negative LAB BACUA(LOIN Negative /hpf C) UA Unknown Bacteria Trace LAB GLTUA(LOIN /hpf C) UA Unknown Glitter cells 25-50 Performed By: #### UAMIC, UA #### [place] [address] Observed: 05/11/2018 Status: F Source: [facility] 2:02 [facility] REPOSITORY . MICRO - Microbiology PROCEDURE: Urine Culture [*1] SOURCE: Urine, Clean Catch BODY SITE: COLLECTED DATE/TIME: 05/11/2018 14:02 EST RECEIVED DATE/TIME: 05/11/2018 14:11 EST START DATE/TIME: 05/11/2018 14:11 EST FREE TEXT SOURCE: FINAL REPORTS Final Report [] Verified Date/Time/Personnel: 05/13/2018 07:44 EST >100,000 organisms per mL Mixed without predominant isolate(s). Sensitivity Testing not indicated. Probably contamination. Repeat culture suggested. PRELIMINARY REPORTS Preliminary Report [] Verified Date/Time/Personnel: 05/12/2018 14:00 EST Culture results pending. Performing Locations *1: This test was performed at: [address], [address] [place] [address] Performed By: #### CUR #### [place] [address] CBC Collected: 05/11/2018 Status: F Source: [facility] 1:45 PM [facility] REPOSITORY Order Comment: Clotted notified Hina TYPE CODE TESTS RESULT OUT OF REFERENCE UNITS RANGE LAB WBC(LOINC) 4.50-10.80 10 3/mcL WBC 6.00 LAB RBCCT(LOINC 4.50-6.00 10 6/mcL ) Low RBC 3.36 LAB HGB(LOINC) 13.0-17.5 G/dL Low Hgb 10.8 LAB HCT(LOINC) 40.0-52.0 % Low Hct 33.0 LAB MCV(LOINC) 81.0-100.0 fL MCV 98.3 LAB MCH(LOINC) 27.0-33.0 pg MCH 32.1 LAB MCHC(LOINC) 32.0-36.0 G/dL MCHC 32.6 LAB RDW(LOINC) 11.5-15.5 % RDW 15.0 LAB PLT(LOINC) 150-450 10 3/mcL Platelet 204 LAB MPV(LOINC) 6.4-10.5 fL MPV 8.7 Performed By: #### ANEU, ADIFF, GFR, BMP, CBC #### [place] [address] .AUTO DIFF Collected: 05/11/2018 Status: F Source: [facility] 1:45 PM [facility] REPOSITORY TYPE CODE TESTS RESULT OUT OF REFERENCE UNITS RANGE LAB JUAN A(LOINC) 50.0-75.0 % Neutrophil % 60.0 LAB LYM(LOINC) 20.0-40.0 % Lymphocyte % 26.2 LAB MON(LOINC) 2.0-13.0 % Monocyte % 10.5 LAB EO(LOINC) 0.0-6.0 % Eosinophil % 2.6 LAB BAS(LOINC) 0.0-2.5 % Basophil % 0.7 LAB ABLYM(LOIN 0.90-4.32 10 3/mcL C) Lymphocyte, 1.60 Absolute LAB ALESSANDRA(LOINC 0.09-1.40 10 3/mcL ) Monocyte, 0.60 Absolute LAB AEOS(LOINC 0.00-0.65 10 3/mcL ) Eosinophil, 0.20 Absolute LAB ABAS(LOINC 0.00-0.27 10 3/mcL ) Basophil, 0.00 Absolute Performed By: #### ANEU, ADIFF, GFR, BMP, CBC #### [place] [address] .NEUABS Collected: 05/11/2018 Status: F Source: [facility] 1:45 PM [facility] REPOSITORY TYPE CODE TESTS RESULT OUT OF REFERENCE UNITS RANGE LAB ANEU(LOINC) 2.25-8.10 10 3/mcL Neutrophil, 3.60 Absolute Performed By: #### ANEU, ADIFF, GFR, BMP, CBC #### [place] [address] BMP Collected: 05/11/2018 Status: F Source: [facility] 1:38 PM [facility] REPOSITORY TYPE CODE TESTS RESULT OUT OF REFERENCE UNITS RANGE LAB GLU(LOINC) 70-110 mg/dL Glucose High Level 135 LAB NA(LOINC) 136-145 mEq/L Sodium Level 142 LAB K(LOINC) 3.5-5.0 mEq/L Potassium High Level 5.6 LAB CL(LOINC) 98-110 mEq/L Chloride 106 LAB CO2(LOINC) 22-32 mEq/L CO2 26 LAB EBAL(LOINC 4.0-15.0 mEq/L ) Electrolyte Balance 10.0 LAB BUN(LOINC) 8.0-22.0 mg/dL BUN High 66.0 LAB CRE(LOINC) 0.60-1.40 mg/dL Creatinine High Lvl (s) 3.66 LAB BC(LOINC) 10.0-22.0 ratio BUN/Creatinine 18.0 Ratio LAB CA(LOINC) 8.4-10.1 mg/dL Low Calcium Lvl 8.0 Performed By: #### ANEU, ADIFF, GFR, BMP, CBC #### [address] [address] .GFR Collected: 05/11/2018 Status: F Source: [facility] 1:38 PM [facility] REPOSITORY TYPE CODE TESTS RESULT OUT OF REFERENCE UNITS RANGE LAB GFRAA(LOINC ml/min/1.73 ) sqm GFR 23 [place] Result Comment: GFR Population mean for , Non- Americans Ages 20-29 = 116 mL/min/1.73 sq.m. Ages 30-39 = 107 mL/min/1.73 sq.m. Ages 40-49 = 99 mL/min/1.73 sq.m. Ages 50-59 = 93 mL/min/1.73 sq.m. Ages 60-69 = 85 mL/min/1.73 sq.m. Ages 70+ = 75 mL/min/1.73 sq.m. Chronic Kidney Disease: Less than 60 mL/min/1.73 square meters End Stage Renal Disease: Less than 15 mL/min/1.73 square meters LAB GFRNO(LOINC) ml/min/1.73sqm GFR Non- 19 Result Comment: GFR Population mean for , Non- Americans Ages 20-29 = 116 mL/min/1.73 sq.m. Ages 30-39 = 107 mL/min/1.73 sq.m. Ages 40-49 = 99 mL/min/1.73 sq.m. Ages 50-59 = 93 mL/min/1.73 sq.m. Ages 60-69 = 85 mL/min/1.73 sq.m. Ages 70+ = 75 mL/min/1.73 sq.m. Chronic Kidney Disease: Less than 60 mL/min/1.73 square meters End Stage Renal Disease: Less than 15 mL/min/1.73 square meters Performed By: #### ANEU, ADIFF, GFR, BMP, CBC #### [address] [address] EMERGENCY DEPARTMENT Observed: 05/10/2018 Status: F Source: GREG SUMMARY 10:19 PM [facility] REPOSITORY [facility] Medical Records Department [address] [place] [address] Emergency Department Summary 05/10/18 2215 MR#: [id number] Acct: [id number] Name: JARON MORSE Rep #: [id number] : 1980 38 From: Gerry Rios MD PCP: Francine Clark MD Status: REG ER - ER Visit Summary Date of Service: 05/10/18 Chief Complaint: Patient presents because of gross blood in Franco History of Present Illness: The patient is a 38 M who presents because of gross blood in Franco. He has a suprapubic catheter. He denies trauma. He denies fever, chills or sweats. He denies nausea or vomiting. He denies abdominal pain or flank pain. He has no other complaints. He was admitted for gross hematuria approximately 2 weeks ago. Physical Examination: Vital signs noted and unremarkable blood pressure 151/91. HEENT exam is unremarkable. Heart is regular without murmur, gallop or rub. S1 and S2 are normal. Lungs are clear to auscultation with good movement of air bilaterally. Abdomen soft nontender with normal bowel sounds. Suprapubic catheter site without erythema, warmth, induration or drainage. There is gross blood noted in the Franco. There is no CVA tenderness noted. Test Results: White count is unremarkable. H AND H 10.0 and 31.0. This is improved from April 22. BUN and creatinine are 68 and 4.12. April 22 BUN and creatinine are 79 and 4.14. Microscopic reveals 0-5 RBCs, greater than 100 WBCs and bacteria. Franco reveals gross blood question accuracy of urinalysis. Since there is bacteria pyuria will treat with antibiotics. He received his first dose in the emergency department. Emergency Department Course and Treatment: CBC, BMP and UA to assess white count, H AND H and renal function. Treatment Plan: Bactrim DS for 7 days and follow-up with urology Disposition: Discharge to home Impression: 1. Gross hematuria 2. Urinary tract infection This note was generated with YaKlassation software. It may contain incorrect words, spelling, and punctuation that were not noted in review of the chart prior to signing ED Disposition - Plan for ED Patient: Disposition: Home or Assisted Living Chief Complaint: Franco C/O Instructions: Discharge Instructions: Caring for Your Suprapubic Catheter, ED Hematuria, ED UTI Cystitis Male Prescriptions: Smz/Tmp Ds [Bactrim Ds] 1 tab PO BID #14 tab Referrals: Francine Clark MD [Primary Care Provider] - 3-5 Days if not improving What to do if you have Problems For any increased pain, shortness of breath, bleeding, nausea or vomiting, chest pain, or any unexpected problems, contact your Primary Care Provider. Call [facility] ([phone]) or report to the closest Emergency Room. Call 911 if necessary. 05/10/18 4009 <Electronically signed by Gerry Rios MD> Date Gerry Rios MD Cosigner Signature (If Indicated): Date CC: Francine Clark MD URINALYSIS, COMPLETE Collected: 05/10/2018 Status: F Source: GREG 9:15 PM [facility] REPOSITORY Order Comment: How was Urine Obtained? CATHETER SPECIMEN TYPE CODE TESTS RESULT OUT OF RANGE REFERENCE UNITS LAB L400.3000 Yellow COLOR Normal Yellow LAB L400.3050 Clear Normal CLARITY Sl. Cloudy LAB L400.3200 Normal mg/dl High GLUCOSE, UR 250 LAB L400.3300 Negative mg/dL Normal BILIRUBIN URINE Negative LAB L400.3400 Negative mg/dl Normal KETONE UR Negative LAB L400.3465 1.002-1.030 Normal SP.GR. DIPSTX 1.005 LAB L400.3550 5.0 - 8.0 pH UR Normal 6.0 LAB L400.3600 Negative mg/dl High PROT 30 DIPSTX LAB L400.3700 Normal mg/dl Normal UROBILI Normal LAB L400.3750 Negative Normal NITRITE UR Negative LAB L400.3780 Negative /ul High OCCULT BLOOD-UR 250 LAB L400.3800 Negative /ul High LEUK ESTERASE 500 LAB L400.4050 0-5 /hpf WBC Normal >100 SEEN LAB L400.4100 0-5 /hpf Normal RBC-UA 0-5 SEEN LAB L400.4150 0-5 /hpf SQUAM 0 Normal EPI SEEN LAB L400.4300 None Seen /hpf Normal BACTERIA RARE LAB L400.4350 <or=2+ /hpf 0 Normal MUCUS, URINE SEEN Performed By: #### L400.0001 #### [facility] [address] [place], [place], [address] Observed: 05/10/2018 Status: F Source: BARTOW CULTURE, URINE 9:15 PM [facility] REPOSITORY Order Date: 05/10/18 Urine Culture ORGANISM 1: Serratia marcescens [place] Count >100,000 Serratia marcescens: REACTION Amoxacillin/Clavulanic Acid $ >=32 R Cefazolin $ >=64 R Cefepime $ <=1 S Ceftriaxone $ <=1 S Ciprofloxacin $ <=0.25 S Ertapenim $$$ <=0.5 S Gentamicin $ <=1 S Levofloxacin $ 0.25 S Nitrofurantoin $ 128 R Tobramycin $ <=1 S Trimethoprim/Sulfametho $ <=20 S (NF) indicates non-formulary drug at [facility]. Approval by Infectious Disease Specialist required before non-formulary drugs may be ordered and/or dispensed. Performed By: #### M100.0650 #### [facility] [address] [place], [address] CBC W/DIFF, AUTOMATED Collected: 05/10/2018 Status: F Source: [place] 8:35 PM [facility] REPOSITORY TYPE CODE TESTS RESULT OUT OF RANGE REFERENCE UNITS LAB L100.1000 4.4-11.0 K/mm3 Normal WBC 6.4 LAB L100.1200 4.6-6.2 M/mm3 Low RBC 3.13 LAB L100.1300 13.0-16.5 g/dl Low HGB 10.0 LAB L100.1400 40-54 % Low HCT 32.0 LAB L100.1500 80-94 fL High MCV 102.2 LAB L100.1600 27.0-32.0 pg Normal MCH 31.9 LAB L100.1700 32-36 g/gl Low MCHC 31.3 LAB L100.1810 11.6-14.6 % Normal RDW CV 14.6 LAB L100.1820 35.1-43.9 fl High RDW SD 54.8 LAB L100.1900 150-450 K/mm3 Normal PLT 215 LAB L100.2000 6.2-12.0 fl Normal MPV 10.6 LAB L100.2100 47-70 % Normal NEUT% 61.9 LAB L100.2200 19-41 % Normal LY% 24.4 LAB L100.2300 0-10 % High MONO% 10.5 LAB L100.2400 0-5 % Normal EO% 2.7 LAB L100.2500 0-1 % Normal BASO% 0.3 LAB L100.2550 0.0-0.9 % Normal IM GRAN % 0.200 Result Comment: IG% - Immature Granulocytes (promyelocytes, myelocytes and metamyelocytes) > 1% indicates that a LEFT SHIFT is Present. LAB L100.2620 2.0-7.7 X10 3/uL Normal Absolute Neut 3.9 LAB L100.2720 0.83-4.51 X10 3/ul Normal Absolute Lymph 1.55 Performed By: #### L100.0100 #### [facility] [address] [facility] [facility]. [place], [place], [id number] BASIC METABOLIC Collected: 05/10/2018 Status: F Source: GREG PROFILE ([facility]) 8:35 PM [facility] REPOSITORY TYPE CODE TESTS RESULT OUT OF RANGE REFERENCE UNITS LAB L501.0100 74-106 mg/dL High GLU 205 Result Comment: Glucose result greater than or equal to 200 mg/dL suggests DIABETES MELLITUS per A.D.A. criteria. Please note revised GLUCOSE reference range effective 2017. LAB L501.1000 7-18 mg/dL High BUN 68 LAB L501.1100 0.70-1.30 mg/dL High CREAT,SERUM 4.12 Result Comment: The validity of the calculated GFR AND GFRAA in patients over 70 years has not been determined. Clinical correlation is essential. LAB L501.1110 >60 mL/min Low EST GFR 18 Result Comment: Non- GFR Calc LAB L501.1115 >60 mL/min Low EST GFR - AA 21 Result Comment: GFR Calc LAB L501.1255 ml/min Normal Estimated CRCL 20.76 LAB L501.1300 10-20 RATIO Normal BUN/CRE 16.5 LAB L501.2200 8.5-10 mg/dL Low .1 CA 7.9 LAB L501.5300 136-14 mmol/L Normal 5 NA 140 LAB L501.5600 3.5-5. mmol/L Normal 1 K 4.8 LAB L501.5900 98-107 mmol/L Normal CL 103 LAB L501.6100 21.0-3 mmol/L Normal 2.0 CO2 27.0 LAB L501.6200 5-15 Normal GAP 10 Performed By: #### L500.2500 #### [facility] [address] [facility] [place], [place], [id number] HEMOGLOBIN A1C Collected: 05/09/2018 Status: F Source: [place] 10:30 AM [facility] REPOSITORY TYPE CODE TESTS RESULT OUT OF REFERENCE UNITS RANGE LAB HGBA1C 4.3-5.6 % High Hemoglobin A1c 6.5 Result Comment: [place] Diabetes Association guidelines indicate that patients with HgbA1c in the range 5.7-6.4% are at increased risk for development of diabetes, and intervention by lifestyle modification may be beneficial. HgbA1c greater or equal to 6.5% is considered diagnostic of diabetes. LAB HBA0 mg/dL Est. Average Glucose 140 Result Comment: eAG: (Estimated average glucose) is a calculated value from HgbA1c and is sales representative adding machines of the average blood glucose level in the last 2-3 month period. Performed By: #### HBA1C, CBCDIF, CMP #### [facility] [address] [place], [place] [address] CBC AND DIFFERENTIAL Collected: 05/09/2018 Status: F Source: [place] 10:30 AM [facility] REPOSITORY TYPE CODE TESTS RESULT OUT OF REFERENCE UNITS RANGE LAB WBC 3.70-11.00 k/uL WBC 5.49 LAB RBC 4.20-6.00 m/uL Low RBC 3.20 LAB HGB 13.0-17.0 g/dL Low Hemoglobin 10.4 LAB HCT 39.0-51.0 % Low Hematocrit 33.8 LAB MCV 80.0-100.0 fL MCV High 105.6 LAB MCH 26.0-34.0 pG MCH 32.5 LAB MCHC 30.5-36.0 g/dL MCHC 30.8 LAB RDWCV 11.5-15.0 % RDW-CV 14.5 LAB PLTCT 150-400 k/uL Platelet Count 202 LAB MPV 9.0-12.7 fL MPV 11.4 LAB ANEUT % Neut% 58.5 LAB AANEUT 1.45-7.50 k/uL Abs Neut 3.19 LAB ALYMP % Lymph% 27.3 LAB AALYMP 1.00-4.00 k/uL Abs Lymph 1.50 LAB AMONO % Whitley% 11.3 LAB AAMONO <0.87 k/uL Abs Whitley 0.62 LAB AEOS % Eosin% 2.7 LAB AAEOS <0.46 k/uL Abs Eosin 0.15 LAB ABASO % Baso% 0.2 LAB AABASO <0.11 k/uL Abs Baso <0.03 LAB AUNRBC 0 /100 WBC NRBCs 0.0 LAB ABNRBC <0.01 k/uL Absolute nRBC <0.01 LAB DTYP DTYPE Auto Diff Performed By: #### HBA1C, CBCDIF, CMP #### [facility] [address] [place] [address] COMP METABOLIC PANEL Collected: 05/09/2018 Status: F Source: [place] 10:30 AM [facility] REPOSITORY TYPE CODE TESTS RESULT OUT OF REFERENCE UNITS RANGE LAB TP 6.3-8.0 g/dL Protein, Total 7.4 LAB ALB 3.9-4.9 g/dL Albumin 3.9 LAB CA 8.5-10.2 mg/dL Calcium, Total 8.8 LAB TBIL 0.2-1.3 mg/dL Bilirubin, Total 0.2 LAB ALKP 38-113 U/L Alkaline High Phosphatase 133 LAB AST 14-40 U/L AST 23 Result Comment: Results may be falsely increased due to interference by hemolysis. Suggest reorder as clinically indicated. LAB GLU 74-99 mg/dL High Glucose 283 Result Comment: The [place] Diabetes Association (ADA) provides guidance for cutoff values for fasting glucose and random glucose. The ADA defines fasting as no caloric intake for at least 8 hours. Fas ting plasma glucose results between 100 to 125 mg/dL indicate increased risk for diabetes (prediabetes). Fasting plasma glucose results greater than or equal to 126 mg/dL meet the criteria for diagnosis of diabetes. In the absence of unequivocal hyperglycemia, results should be confirmed by repeat testing. In a patient with classic symptoms of hyperglycemia or hyperglycemic crisis, random plasma glucose results greater than or equal to 200 mg/dL meet the criteria for diagnosis of diabetes. Reference: Standards of Medical Care in Diabetes 2016, [place] Diabetes Association. Diabetes Care. 2016.39(Suppl 1). LAB BUN 9-24 mg/dL BUN High 64 LAB CRET 0.73-1.22 mg/dL Creatinine High 3.84 LAB NA 136-144 mmol/L Sodium 136 LAB K 3.7-5.1 mmol/L Potassium High 5.7 LAB CL 97-105 mmol/L Chloride 99 LAB CO2 22-30 mmol/L CO2 24 LAB AGAP 9-18 mmol/L Anion Gap 13 LAB ALT 10-54 U/L ALT 16 LAB GFRAA eGFR- Amer. 22 LAB GFRNAA . eGFR-All Other Races 18 Result Comment: eGFR (Estimated GFR) Units of measure: mL/min/1.73 meters squared eGFR is derived from the reexpressed MDRD Study equation using the following parameters: serum creatinine, age, gender and race. The creatinine assay has been calibrated to be traceable to IDMS. An eGFR <60 mL/min/1.73m2 for >3 months is consistent with chronic kidney disease. Refer to KDOQI guidelines for clinical interpretation. In patients with unstable renal function, e.g. those with acute kidney injury, the eGFR may not accurately reflect actual GFR. Performed By: #### HBA1C, CBCDIF, CMP #### [facility] [address] [place], [place] [address] TSH Collected: 05/09/2018 Status: F Source: [place] 10:30 AM [facility] REPOSITORY TYPE CODE TESTS RESULT OUT OF RANGE REFERENCE UNITS LAB TSH 0.400-5.500 uU/mL TSH 1.490 Performed By: #### TSH #### [facility] [address] [place], [place] [address] SURGERY VISIT REPORT Observed: 04/27/2018 Status: F Source: [place] 4:17 PM [facility] REPOSITORY [facility] [address] [place] [address]. [address] [place] [id number] OFFICE VISIT Date of Service: 04/27/18 MR#: [id number] Acct: [id number] Name: JARON MORSE Rep #: [id number] : 1980 Provider: Hugh Abreu MD Age/Sex: 38/M Location: [facility] Status: Signed Intake Intake Visit Reasons: Fisutal Creation 04/18 Allergies No Known Allergies Allergy (Verified 04/20/18 10:37) Medications Ascorbic Acid [Vitamin C] 1,000 mg PO DAILY 02/21/15 [History Confirmed 04/20/18] Fluoxetine [Prozac] 20 mg PO DAILY 02/21/15 [History Confirmed 04/20/18] Loratadine [Claritin] 10 mg PO DAILY 07/08/15 [History Confirmed 04/20/18] Melatonin 3 mg PO QHS 12/09/15 [History Confirmed 04/20/18] Insulin Lispro [Humalog Kwikpen] 0 unit SQ TIDCM 08/29/16 [History Confirmed 04/20/18] Sennosides [Senna] 8.6 mg PO BID 12/29/16 [History Confirmed 04/20/18] Insulin Lispro [Humalog] 8 unit SQ 0700,1700 12/24/17 [History Confirmed 04/20/18] Cholecalciferol (Vitamin D3) [Vitamin D3] 5,000 unit PO DAILY 01/09/18 [History Confirmed 04/20/18] Insulin Glargine [Lantus SoloStar Pen] 14 units SC QHS 02/09/18 [History Confirmed 04/20/18] Polyethylene Glycol 3350 [Miralax] 17 gm PO 0800,1600 02/09/18 [History Confirmed 04/20/18] Albuterol Inhaler [Ventolin Hfa] 2 puff INHALATION Q4H PRN PRN 04/20/18 [History Confirmed 04/20/18] Ammonium Lactate [Amlactin] 1 applic TP BID 04/20/18 [History Confirmed 04/20/18] Aspirin E.C. [Ecotrin] 81 mg PO DAILY@0800 04/20/18 [History Confirmed 04/20/18] Atorvastatin Calcium 5 mg PO QHS 04/20/18 [History Confirmed 04/20/18] Citric AC/Gluconolact/Mag Carb [Renacidin Irrigation Solution] 30 ml IR 0800,1600,199904/20/18 [History Confirmed 04/20/18] Fluoxetine [Prozac] 10 mg PO DAILY 04/20/18 [History Confirmed 04/20/18] Fluticasone 0.05% [Flonase Nasal [place]] 2 spray NASAL DAILY 04/20/18 [History Confirmed 04/20/18] Insulin Glargine,Hum.rec.anlog [Lantus] 14 unit SQ DAILY 04/20/18 [History Confirmed 04/20/18] Insulin Lispro [Humalog] 4 unit SQ 1100 04/20/18 [History Confirmed 04/20/18] Ketoconazole 1 applic TP UD 04/20/18 [History Confirmed 04/20/18] Metoprolol Tartrate 12.5 mg PO BID 04/20/18 [History Confirmed 04/20/18] Olopatadine HCl [Pataday] 1 drp EACHEYE DAILY 04/20/18 [History Confirmed 04/20/18] Oxybutynin [Ditropan] 5 mg PO DAILY PRN 04/20/18 [History Confirmed 04/20/18] Pantoprazole Sodium [Protonix] 40 mg PO DAILY 04/20/18 [History Confirmed 04/20/18] Polyethylene Glycol 3350 [Miralax] 17 gm PO QHS PRN 04/20/18 [History Confirmed 04/20/18] Quetiapine Fumarate [Seroquel] 100 mg PO 1700 04/20/18 [History Confirmed 04/20/18] Quetiapine Fumarate [Seroquel] 200 mg PO 0800,199904/20/18 [History Confirmed 04/20/18] Ferrous Sulfate 325 mg PO BIDCM #28 tab 04/22/18 [Rx] Subjective Details: 38-year-old gentleman. I had created a left upper extremity AV fistula for him but because of exuberant flow a Dacron cuff limiter was placed. Patient subsequently had thrombosis. On April 18, 2018 I performed stage II transposition right forearm cephalic vein to radial artery arteriovenous fistula creation. The patient has not been exercising his hand. He returns now for initial postoperative visit. He has not yet on hemodialysis. Objective Details: Right forearm longitudinal incision appears clean dry and healing well. There is a mild to moderate amount of nonpitting swelling of the right forearm. The hand is warm and viable. There is no drainage no signs of infection. There is a pulse thrill and bruit. Assessment AND Plan Problems 1. Problem with dialysis access, subsequent encounter T82.595W Plan The patient has some slight swelling of the right forearm making palpation of the fistula somewhat challenging. There is a very strong audible bruit. I performed ultrasound inspection and it appears that the anastomosis and fistula appears to be patent and doing well I have encouraged the patient to elevate the arm to help limit the swelling and to initiate his hand exercises as he previously was instructed. He has been noncompliant. He has had an opportunity to ask and have questions answered. His Steri-Strips were removed for him today. I anticipate seeing him back in the office in 6 weeks time. Hugh Abreu M.D., F.A.C.S. Coding Level of Care Code Global Post Op Diagnoses Problem with dialysis access, subsequent encounter T82.280I Encounter type: subsequent encounter 04/27/18 1617 <Electronically signed by Hugh Abreu MD> Date Hugh Abreu MD Cosigner Signature: Date (if applicable) CC: Deanne Ovalles DO; Francine Clark MD CNOV Observed: 04/27/2018 Status: COMPLETED Source: [place] 10:40 AM [facility] REPOSITORY Office Visit (INTMWS) JARON MORSE ([id number]) 1980 M Date Time Provider Department 11/9/18 10:40 AM MARK GUNN (ANGIE) INTMWS During your visit today, we recorded the following information about you: Temperature Pulse Respiration Blood pressure 97.6 degrees 108/minute 16/minute 122/80 Weight 107.5 kg Mark Gunn APRN.CNP 04/27/2018 3:52 PM Signed Transitional Care Management Progress Note The patients TCM visit was performed within the 7 days of discharge. Patient's Date of discharge: 04/22/18 Date of initial coordinator contact after discharge: 04/23/18 Discharge diagnosis: Hematuria Medication review completed Yes Mark Gunn APRN.ANGIE Provider Documentation: In follow-up of hospitalization, Jaron Morse is a 38 year old male with the chief complaint of hematuria with clots from suprapubic catheter and diffuse abdominal and low back pain. Patient was admitted to [facility] for hematuria, small bowel ileus, chronic renal insufficiency and anemia. Catheter was irrigated and replaced with 20 [place]. Hgb down to 8.5 from 13.2 at time of discharge, did not require transfusion until less than 7 per nephrology. Ileus noted on CT imaging likely resolved per hospital records, patient had normal BM and resolution of abdominal pain. Eliquis discontinued d/t hematuria, patient was started on for RUE DVT after fistula placement in August 2017. Started on PO iron supplements and discharged back to [facility]. Patient presents today with caregiver with no complaints related to hospital admission, except feeling fatigued and complains of ongoing right shoulder pain and limited ROM. Patient denies any further abdominal pain, nausea, vomiting, constipation, hematuria or clots in the urine. Denies any fevers, chills or changes in appetite. Reports ongoing right shoulder pain with abduction and inner bicep pain intermittently since previous blood clot. Denies any numbness, tingling or weakness. Takes tylenol for pain. Recent fistula revision ~1 week ago to the right forearm, currently wrapped with sydnee bandage. Patient does walk with walker, caregiver notes gait is unsteady and needs assistance/supervision- requesting home PT/OT for gait and strength training. I have reviewed the patient?s last hospital course including diagnostic testing performed during this hospitalization, their discharge medications, and my assessment and plan with the patient and any family members present at today?s visit. PAST MEDICAL HISTORY: Reviewed and updated ALLERGIES: Reviewed and updated MEDICATIONS: Reviewed and updated SOCIAL HISTORY: Reviewed and updated FAMILY HISTORY: Reviewed and updated REVIEW OF SYSTEMS GENERAL: No weight lossor fevers Feeling fatigued since discharge. RESPIRATORY: Negative for cough, hemoptysis, wheezing, or shortness of breath CARDIOVASCULAR: Negative for chest pain, leg swelling, or palpitations GI: No nausea, vomiting, or diarrhea : See HPI anticipate resuming dialysis in the near future MUSCULOSKELETAL: See HPI NEURO: No history of headaches, syncope, paralysis, seizures or tremors All other systems reviewed and negative, other than HPI. PHYSICAL EXAMINATION BP 122/80 Pulse 108 Temp (Src) 97.6 (Temporal Artery) Resp 16 Wt 237 lb (107.5kg) SpO2 98% General appearance: well appearing, alert, in no acute distress and well-hydrated, well nourished, motor and sensory appear to be normal Lungs: clear to auscultation no wheezing or rhonchi Heart: RRR without murmur, gallop, or rubs. No ectopy Abdomen: Normal abdominal exam, Abdomen soft, non-tender. Bowel sounds normal. No masses, organomegaly : Catheter leg bag flowing freely with clear yellow urine. No evidence of sediment or clots on exam Extremities: No edema Right shoulder: Abduction, flexion and extension limited with pain. Full painless adduction, internal and external rotation. Empty can- negative. No skin or joint deformities. No crepitus. Generalized edema to the RUE, noted fistula revision ~1 week ago. Strength 5/5 bilaterally. Cap refill <3 seconds 1. I have reviewed the patient record including associated test results during the last hospitalization Yes 2. I have reviewed Lab test Yes 3. I have reviewed Radiology test Yes 4. I reviewed assessment/plan with the patient/family member Yes ASSESSMENT/PLAN: 1. Hospital discharge follow-up - ICD9: V67.59, ICD10: Z09 (primary diagnosis) - Ileus- resolved - Hematuria- resolved - Anemia- improving. Lab results reviewed with patient and caregiver, result report provided. Continue PO iron. Recheck blood count in 2 weeks, sooner should new symptoms arise 2. Anemia, unspecified type - ICD9: 285.9, ICD10: D64.9 - Improving, hgb 8.9 from 8.0 at discharge - Continue Iron supplement - Repeat labs in 2 weeks - CBC - ER if hematuria returns 3. Decreased range of motion of right shoulder - ICD9: 719.51, ICD10: M25.611 - Chronic complaint, previous evaluation by other providers. No recent injury or trauma. Imaging not indicated at this time - Recommend ice, Voltaren gels as prescribed as patient cannot take NSAIDs d/t CKD, Tylenol PRN and PT/OT for ROM and strengthening as patient does use walker intermittently- likely a contributing factor - Will request home health PT/OT from PCP 4. Chronic right shoulder pain - ICD9: 719.41, 338.29, ICD10: M25.511, G89.29 - As above, see #5 5. Need for assistance due to unsteady gait - ICD9: 781.2, ICD10: R26.89 - Recommend PT/OT- will request home health order from PCP Mark Gunn APRN.SUPERVISOR [employer] April 27, 2018 10:31 AM Opal Barnes Ma 04/27/2018 10:38 AM Signed Transitional Care Management Progress Note The patients TCM visit was performed within the 7 days of discharge. TCM Eligibility Documentation The following information was gathered during the initial Patient Outreach Encounter. Date of Outreach: 04/23/2018 Outreach Attempt 1: Contact Made Date of Discharge 04/22/2018 Some recent data might be hidden If no data exists please enter it manually. If data exists please delete date of discharge and date of initial contact seen below. Patient's Date of discharge: 04/22/2018 Date of initial coordinator contact after discharge: 04/23/2018 Discharge diagnosis: Hematuria Medication review completed Yes Opal Barnes Ma Provider Documentation: In follow-up of hospitalization, Jaron Morse is a 38 year old male with the chief complaint of Hematuria I have reviewed the patient?s last hospital course including diagnostic testing performed during this hospitalization, their discharge medications, and my assessment and plan with the patient and any family members present at today?s visit. Referring Provider: SELF [[id number]] Allergies As of Date: 04/27/2018 Noted Allergy Reaction SEASONAL ALLERGIES 12/03/2012 14 - Other: See Comments Comments: Environmental-ragweed Date Reviewed: 04/27/2018 Reviewed by: Opal Barnes Ma - Fully Assessed Reason for Visit: Recheck [92] Cmt: [facility] Hosp follow up Primary Visit Diagnosis:Hospital discharge follow-up [Z09] Other Visit Diagnoses:Anemia, unspecified type [D64.9] Decreased range of motion of right shoulder [M25.611] Chronic right shoulder pain [M25.511, G89.29] Need for assistance due to unsteady gait [R26.89] Order(s):glucagon (GLUCAGON EMERGENCY KIT, HUMAN,) 1 mg solrINJECT 1MG INTRAMUSCULARLY IF UNCONSCIOUS, UNABLE TO FOLLOW SIMPLE INSTRUCTIONS OR SEIZURES TIMES 1 DOSEDisp: 1 EachRfl: 1 CBC [CB] Order #: [id number] FUTURE acetaminophen (TYLENOL ARTHRITIS PAIN) 650 mg CR tabletTake 1 tablet by mouth every 8 hours as needed.Disp: 24 tabletRfl: 2 diclofenac sodium (VOLTAREN) 1 % topical gelApply 2 g to affected area four times daily.Disp: 100 gRfl: 1 Prescriptions as of 04/27/2018 Sig: GLUCAGON (HUMAN RECOMBINANT) * INJECT 1MG INTRAMUSCULARLY IF* ACETAMINOPHEN ER 650 MG TABLE* Take 1 tablet by mouth every * DICLOFENAC 1 % TOPICAL GEL Apply 2 g to affected area fo* METOPROLOL TARTRATE 25 MG TAB* TAKE (1/2) TABLET BY MOUTH TW* VITAMIN C 1,000 MG TABLET TAKE (1) TABLET BY MOUTH ONCE* MELATONIN 3 MG TABLET Take 1 tablet by mouth daily * AMMONIUM LACTATE 12 % LOTION APPLY TO AFFECTED AREAS TWICE* SENNA 8.6 MG TABLET TAKE (1) TABLET BY MOUTH TWIC* POLYETHYLENE GLYCOL 3350 17 G* MIX 1 CAPFUL (17 GMS) IN 8 OZ* ATORVASTATIN 10 MG TABLET TAKE ONE-HALF (1/2) TABLET AT* CHOLECALCIFEROL (VITAMIN D3) * TAKE (1) TABLET BY MOUTH ONCE* LORATADINE 10 MG TABLET TAKE (1) TABLET BY MOUTH ONCE* ALBUTEROL SULFATE HFA 90 MCG/* Inhale 2 Puffs as instructed * BENZONATATE 100 MG CAPSULE Take 2 capsules by mouth thre* OFLOXACIN 0.3 % EAR DROPS Use 5 Drops in the right ear * GLUCAGON (HUMAN RECOMBINANT) * Inject 1 mg intravenously one* INSULIN LISPRO (U-100) 100 UN* INJECT 5-8 UNITS SUBCUTANEOUS* INSULIN GLARGINE (U-100) 100 * 14 units in the AM and 10 uni* BLOOD SUGAR DIAGNOSTIC STRIPS Test blood sugar(s) 8 times d* LANCETS Test blood sugar(s) 8 times d* PEN NEEDLE, DIABETIC 31 GAUGE* Use to inject insulin 5 times* FERROUS SULFATE 325 MG (65 MG* Take 325 mg by mouth twice da* DEXTROMETHORPHAN-GUAIFENESIN * Take 5-10 mL by mouth every 6* FLUTICASONE 50 MCG/ACTUATION * USE 2 SPRAYS IN EACH NOSTRIL * SENNOSIDES 8.6 MG TABLET Take 8.6 mg by mouth twice da* GLUCOSE 4 GRAM CHEWABLE TABLET TAKE 4 TABLETS BY MOUTH NE* APIXABAN 2.5 MG TABLET Take 1 tablet by mouth twice * Patient not taking: Reported on 03/05/2018 FLUOXETINE 20 MG CAPSULE Take 30 mg by mouth once jacquelin* POLYETHYLENE GLYCOL 3350 17 G* Mix 1 capful (17 GMS) in 8 oz* RENACIDIN 6.602 GRAM-3.268 GR* USE 30ML INTRAVESICALRY VIA U* CARBAMIDE PEROXIDE 6.5 % EAR * Use 5 Drops in both ears twic* KETOCONAZOLE 2 % SHAMPOO APPLY LATHER TO AFFECTED SKIN* ND-ACID GAS RELIEF 80 MG CHEW* CHEW 1 TABLET BY MOUTH WITH M* ASPIRIN 81 MG TABLET,DELAYED * TAKE (1) TABLET BY MOUTH JACQUELIN* PANTOPRAZOLE 40 MG TABLET,DEL* TAKE 1 TABLET BY MOUTH ONCE D* OLOPATADINE 0.7 % EYE DROPS Use 1 Drop in eyes once daily. SENNOSIDES 8.6 MG TABLET Take 1 tablet by mouth twice * OXYBUTYNIN CHLORIDE 5 MG TABL* Take 1 tablet by mouth as nee* QUETIAPINE 200 MG TABLET TAKE (1) TABLET BY MOUTH TWIC* QUETIAPINE 100 MG TABLET TAKE 1 TABLET BY MOUTH ONCE D* AMMONIUM LACTATE 12 % TOPICAL* Apply 1 application to affect* COMPOUNDED PRESCRIPTION Please provide ARKKAY glucoca* BISACODYL 10 MG RECTAL SUPPOS* 1 Suppository by RECTAL route* Patient not taking: Reported on 03/05/2018 DOCUSATE SODIUM 100 MG CAPSULE Take 1 capsule by mouth twice* Problem List As Of Date 04/27/2018 Noted Resolved ATTN DEFICIT W HYPERACT [F90.9] INVALID FOR* Uncontrolled type 1 diabetes mellitus (HCC) [E1*INVALID FOR* HYDRONEPHROSIS [N13.30] INVALID FOR* 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 Allergic rhinitis [J30.9] DVT of left axillary vein, acute (HCC) [I82.A12]INVALID FOR* Visit Notes: >> Opal Barnes Ma MonApr 27, 2018 10:35 AM Status: Signed Transitional Care Management Progress Note The patients TCM visit was performed within the 7 days of discharge. TCM Eligibility Documentation The following information was gathered during the initial Patient Outreach Encounter. Date of Outreach: 04/23/2018 Outreach Attempt 1: Contact Made Date of Discharge 04/22/2018 Some recent data might be hidden If no data exists please enter it manually. If data exists please delete date of discharge and date of initial contact seen below. Patient's Date of discharge: 04/22/2018 Date of initial coordinator contact after discharge: 04/23/2018 Discharge diagnosis: Hematuria Medication review completed Yes Opal Barnes Ma Provider Documentation: In follow-up of hospitalization, Jaron Morse is a 38 year old male with the chief complaint of Hematuria I have reviewed the patient?s last hospital course including diagnostic testing performed during this hospitalization, their discharge medications, and my assessment and plan with the patient and any family members present at today?s visit. Prescriptions ordered this encounter Disp Refills Start End GLUCAGON (HUMAN RECOMBINANT) 1 MG SO* 1 Ea* 1 04/27/2018 Sig: INJECT 1MG INTRAMUSCULARLY IF UNCONSCIOUS, UNABLE TO FOLLOW SIMPLE INSTRUCTIONS OR SEIZURES TIMES 1 DOSE ACETAMINOPHEN ER 650 MG TABLET,EXTEN* 24 t* 2 04/27/2018 Route: ORAL Sig: Take 1 tablet by mouth every 8 hours as needed. DICLOFENAC 1 % TOPICAL GEL 100 g 1 04/27/2018 Route: TOPICAL Sig: Apply 2 g to affected area four times daily. Medications Discontinued During This Encounter GLUCAGON EMERGENCY KIT, HUMAN, 1 mg * 1 Ea* 1 04/13/2018 04/27/2018 Sig: INJECT 1MG INTRAMUSCULARLY IF UNCONSCIOUS, UNABLE TO FOLLOW SIMPLE INSTRUCTIONS OR SEIZURES TIMES 1 DOSE Disc: Reason for discontinue is not on file. Encounter Status:Closed by MARK GUNN CNP on 04/27/18 PROGRESS Observed: 04/27/2018 Status: COMPLETED Source: [place] 10:31 AM [facility] REPOSITORY HNO ID: [id number] Author: Mark Gunn Service: (none) Author Type: Nurse Practitioner Type: Progress Notes Filed: 04/27/2018 3:52 PM Note Text: Transitional Care Management Progress Note The patients TCM visit was performed within the 7 days of discharge. Patient's Date of discharge: 04/22/18 Date of initial coordinator contact after discharge: 04/23/18 Discharge diagnosis: Hematuria Medication review completed Yes Mark Gunn APRN.ANGIE Provider Documentation: In follow-up of hospitalization, Jaron Morse is a 38 year old male with the chief complaint of hematuria with clots from suprapubic catheter and diffuse abdominal and low back pain. Patient was admitted to [facility] for hematuria, small bowel ileus, chronic renal insufficiency and anemia. Catheter was irrigated and replaced with 20 Moroc[place]. Hgb down to 8.5 from 13.2 at time of discharge, did not require transfusion until less than 7 per nephrology. Ileus noted on CT imaging likely resolved per hospital records, patient had normal BM and resolution of abdominal pain. Eliquis discontinued d/t hematuria, patient was started on for RUE DVT after fistula placement in August 2017. Started on PO iron supplements and discharged back to [facility]. Patient presents today with caregiver with no complaints related to hospital admission, except feeling fatigued and complains of ongoing right shoulder pain and limited ROM. Patient denies any further abdominal pain, nausea, vomiting, constipation, hematuria or clots in the urine. Denies any fevers, chills or changes in appetite. Reports ongoing right shoulder pain with abduction and inner bicep pain intermittently since previous blood clot. Denies any numbness, tingling or weakness. Takes tylenol for pain. Recent fistula revision ~1 week ago to the right forearm, currently wrapped with sydnee bandage. Patient does walk with walker, caregiver notes gait is unsteady and needs assistance/supervision- requesting home PT/OT for gait and strength training. I have reviewed the patient?s last hospital course including diagnostic testing performed during this hospitalization, their discharge medications, and my assessment and plan with the patient and any family members present at today?s visit. PAST MEDICAL HISTORY: Reviewed and updated ALLERGIES: Reviewed and updated MEDICATIONS: Reviewed and updated SOCIAL HISTORY: Reviewed and updated FAMILY HISTORY: Reviewed and updated REVIEW OF SYSTEMS GENERAL: No weight lossor fevers Feeling fatigued since discharge. RESPIRATORY: Negative for cough, hemoptysis, wheezing, or shortness of breath CARDIOVASCULAR: Negative for chest pain, leg swelling, or palpitations GI: No nausea, vomiting, or diarrhea : See HPI anticipate resuming dialysis in the near future MUSCULOSKELETAL: See HPI NEURO: No history of headaches, syncope, paralysis, seizures or tremors All other systems reviewed and negative, other than HPI. PHYSICAL EXAMINATION BP 122/80 Pulse 108 Temp (Src) 97.6 (Temporal Artery) Resp 16 Wt 237 lb (107.5kg) SpO2 98% General appearance: well appearing, alert, in no acute distress and well-hydrated, well nourished, motor and sensory appear to be normal Lungs: clear to auscultation no wheezing or rhonchi Heart: RRR without murmur, gallop, or rubs. No ectopy Abdomen: Normal abdominal exam, Abdomen soft, non-tender. Bowel sounds normal. No masses, organomegaly : Catheter leg bag flowing freely with clear yellow urine. No evidence of sediment or clots on exam Extremities: No edema Right shoulder: Abduction, flexion and extension limited with pain. Full painless adduction, internal and external rotation. Empty can- negative. No skin or joint deformities. No crepitus. Generalized edema to the RUE, noted fistula revision ~1 week ago. Strength 5/5 bilaterally. Cap refill <3 seconds 1. I have reviewed the patient record including associated test results during the last hospitalization Yes 2. I have reviewed Lab test Yes 3. I have reviewed Radiology test Yes 4. I reviewed assessment/plan with the patient/family member Yes ASSESSMENT/PLAN: 1. Hospital discharge follow-up - ICD9: V67.59, ICD10: Z09 (primary diagnosis) - Ileus- resolved - Hematuria- resolved - Anemia- improving. Lab results reviewed with patient and caregiver, result report provided. Continue PO iron. Recheck blood count in 2 weeks, sooner should new symptoms arise 2. Anemia, unspecified type - ICD9: 285.9, ICD10: D64.9 - Improving, hgb 8.9 from 8.0 at discharge - Continue Iron supplement - Repeat labs in 2 weeks - CBC - ER if hematuria returns 3. Decreased range of motion of right shoulder - ICD9: 719.51, ICD10: M25.611 - Chronic complaint, previous evaluation by other providers. No recent injury or trauma. Imaging not indicated at this time - Recommend ice, Voltaren gels as prescribed as patient cannot take NSAIDs d/t CKD, Tylenol PRN and PT/OT for ROM and strengthening as patient does use walker intermittently- likely a contributing factor - Will request home health PT/OT from PCP 4. Chronic right shoulder pain - ICD9: 719.41, 338.29, ICD10: M25.511, G89.29 - As above, see #5 5. Need for assistance due to unsteady gait - ICD9: 781.2, ICD10: R26.89 - Recommend PT/OT- will request home health order from PCP Mark Gunn APRN.SUPERVISOR [employer] April 27, 2018 10:31 AM CBC Collected: 04/26/2018 Status: F Source: [place] 10:05 AM [facility] [place] REPOSITORY TYPE CODE TESTS RESULT OUT OF REFERENCE UNITS RANGE LAB WBC 3.70-11.00 k/uL WBC 7.22 LAB RBC 4.20-6.00 m/uL Low RBC 2.77 LAB HGB 13.0-17.0 g/dL Low Hemoglobin 8.9 LAB HCT 39.0-51.0 % Low Hematocrit 28.8 LAB MCV 80.0-100.0 fL MCV High 104.0 LAB MCH 26.0-34.0 pG MCH 32.1 LAB MCHC 30.5-36.0 g/dL MCHC 30.9 LAB RDWCV 11.5-15.0 % RDW-CV 13.7 LAB PLTCT 150-400 k/uL Platelet Count 246 LAB MPV 9.0-12.7 fL MPV 11.4 LAB ABSNUC <0.01 k/uL Absolute nRBC <0.01 Performed By: #### CBC #### [facility] [address] [place], [place] [address] 12 LEAD ELECTROCARDIOGRAM Observed: 04/23/2018 Status: F Source: [place] 3:13 PM [facility] REPOSITORY [facility] Cardiovascular Services [address] [place] [address] 12 Lead EKG 04/20/18 1516 MR#: [id number] Acct: [id number] Name: JARON MORSE Rep #: [id number] : 1980 38 From: Ricardo Samaniego MD Attending Dr: Yassine Baer DO Status: DIS IN Ordering Dr: Manish Ghosh DO Date: 04/20/18 Location: [facility] Sex: M C Admitted: 04/20/18 Test Reason : SYNCOPE Blood Pressure : / mmHG Vent. Rate : 098 BPM Atrial Rate : 098 BPM P-R Int : 130 ms QRS Dur : 082 ms QT Int : 364 ms P-R-T Axes : 036 040 034 degrees QTc Int : 464 ms Normal sinus rhythm Cannot rule out Anterior infarct , age undetermined Abnormal ECG Confirmed by RICARDO SAMANIEGO MD ([id number]), acquisitions editor DALILA GABRIEL ([id number]) on 04/23/2018 3:12:53 PM Referred By: BLAYNE Confirmed By:RICARDO SAMANIEGO MD 04/23/18 1512 Date Ricardo Samaniego MD CC: Manish Ghosh DO; Yassine Baer DO; Francine Clark MD Signed PROGRESS Observed: 04/23/2018 Status: COMPLETED Source: [place] 10:46 AM [facility] REPOSITORY O ID: [id number] Author: Khloe Pruett LPN Service: (none) Author Type: (none) Type: Progress Notes Filed: 04/27/2018 3:45 PM Note Text: TRANSITION CARE MANAGEMENT (TCM) INITIAL CONTACT Promotions Team Leader Outreach Provider Action/FYI: Initial contact with patient post discharge, spoke to caregiver. Patient identified by name and . TRANSITION CARE MANAGEMENT INITIAL OUTREACH DOCUMENTATION: Date of Outreach: 04/23/2018 Outreach Attempt 1: Contact Made Date of Discharge 04/22/2018 Some recent data might be hidden SUMMARY: -Pt discharged from [facility] on 04/20/18. -Admitted for: hematuria Do you have a hospital follow up appointment with your PCP? Appointment on 04/27/18 with Thelma. Yes. Remind patient of appointment date, time, and location. If not within 14 calendar days of discharge - please reschedule accordingly. MEDICATIONS: Many patients have questions or concerns about their medications once they are home. Were you prescribed any new medications? If yes, what are those medications? Ferrous sulfate 325 mg po twice daily Were you told to hold any medications? No Were any of your medications discontinued? No Do you have any questions about getting or taking your medications? No Your discharge instructions/After visit Summary (AVS) are important in guiding you through the recovery process. Is there anything I might help you understand? No Do you have all the necessary equipment and supplies at home? Yes Medical records from recent hospitalization: Placed for provider to review FRACISCOEAVERNA Observed: 04/23/2018 Status: COMPLETED Source: [place] 12:00 AM [facility] REPOSITORY Patient Outreach (INTMWS) JARON MORSE ([id number]) 1980 M Date Time Provider Department 04/23/18 FRANCINE CLARK INTMWS During your visit today, we recorded the following information about you: Khloe Pruett LPN 04/27/2018 3:45 PM Signed TRANSITION CARE MANAGEMENT (TCM) INITIAL CONTACT Promotions Team Leader Outreach Provider Action/FYI: Initial contact with patient post discharge, spoke to caregiver. Patient identified by name and . TRANSITION CARE MANAGEMENT INITIAL OUTREACH DOCUMENTATION: Date of Outreach: 04/23/2018 Outreach Attempt 1: Contact Made Date of Discharge 04/22/2018 Some recent data might be hidden SUMMARY: -Pt discharged from [facility] on 04/20/18. -Admitted for: hematuria Do you have a hospital follow up appointment with your PCP? Appointment on 04/27/18 with Thelma. Yes. Remind patient of appointment date, time, and location. If not within 14 calendar days of discharge - please reschedule accordingly. MEDICATIONS: Many patients have questions or concerns about their medications once they are home. Were you prescribed any new medications? If yes, what are those medications? Ferrous sulfate 325 mg po twice daily Were you told to hold any medications? No Were any of your medications discontinued? No Do you have any questions about getting or taking your medications? No Your discharge instructions/After visit Summary (AVS) are important in guiding you through the recovery process. Is there anything I might help you understand? No Do you have all the necessary equipment and supplies at home? Yes Medical records from recent hospitalization: Placed for provider to review Allergies As of Date: 04/23/2018 Noted Allergy Reaction SEASONAL ALLERGIES 12/03/2012 14 - Other: See Comments Comments: Environmental-ragweed Date Reviewed: 03/05/2018 Reviewed by: Lakeisha Zamora Ma - Fully Assessed Reason for Visit: Transition Of Care [4074] Prescriptions as of 04/23/2018 Sig: METOPROLOL TARTRATE 25 MG TAB* TAKE (1/2) TABLET BY MOUTH TW* VITAMIN C 1,000 MG TABLET TAKE (1) TABLET BY MOUTH ONCE* MELATONIN 3 MG TABLET Take 1 tablet by mouth daily * X GLUCAGON EMERGENCY KIT (HUMAN* INJECT 1MG INTRAMUSCULARLY IF* AMMONIUM LACTATE 12 % LOTION APPLY TO AFFECTED AREAS TWICE* SENNA 8.6 MG TABLET TAKE (1) TABLET BY MOUTH TWIC* POLYETHYLENE GLYCOL 3350 17 G* MIX 1 CAPFUL (17 GMS) IN 8 OZ* ATORVASTATIN 10 MG TABLET TAKE ONE-HALF (1/2) TABLET AT* CHOLECALCIFEROL (VITAMIN D3) * TAKE (1) TABLET BY MOUTH ONCE* LORATADINE 10 MG TABLET TAKE (1) TABLET BY MOUTH ONCE* ALBUTEROL SULFATE HFA 90 MCG/* Inhale 2 Puffs as instructed * BENZONATATE 100 MG CAPSULE Take 2 capsules by mouth thre* OFLOXACIN 0.3 % EAR DROPS Use 5 Drops in the right ear * INSULIN LISPRO (U-100) 100 UN* INJECT 5-8 UNITS SUBCUTANEOUS* INSULIN GLARGINE (U-100) 100 * 14 units in the AM and 10 uni* BLOOD SUGAR DIAGNOSTIC STRIPS Test blood sugar(s) 8 times d* LANCETS Test blood sugar(s) 8 times d* PEN NEEDLE, DIABETIC 31 GAUGE* Use to inject insulin 5 times* FERROUS SULFATE 325 MG (65 MG* Take 325 mg by mouth twice da* DEXTROMETHORPHAN-GUAIFENESIN * Take 5-10 mL by mouth every 6* FLUTICASONE 50 MCG/ACTUATION * USE 2 SPRAYS IN EACH NOSTRIL * SENNOSIDES 8.6 MG TABLET Take 8.6 mg by mouth twice da* GLUCOSE 4 GRAM CHEWABLE TABLET TAKE 4 TABLETS BY MOUTH NE* APIXABAN 2.5 MG TABLET Take 1 tablet by mouth twice * Patient not taking: Reported on 03/05/2018 FLUOXETINE 20 MG CAPSULE Take 30 mg by mouth once jacquelin* POLYETHYLENE GLYCOL 3350 17 G* Mix 1 capful (17 GMS) in 8 oz* RENACIDIN 6.602 GRAM-3.268 GR* USE 30ML INTRAVESICALRY VIA U* CARBAMIDE PEROXIDE 6.5 % EAR * Use 5 Drops in both ears twic* KETOCONAZOLE 2 % SHAMPOO APPLY LATHER TO AFFECTED SKIN* ND-ACID GAS RELIEF 80 MG CHEW* CHEW 1 TABLET BY MOUTH WITH M* ASPIRIN 81 MG TABLET,DELAYED * TAKE (1) TABLET BY MOUTH JACQUELIN* PANTOPRAZOLE 40 MG TABLET,DEL* TAKE 1 TABLET BY MOUTH ONCE D* OLOPATADINE 0.7 % EYE DROPS Use 1 Drop in eyes once daily. SENNOSIDES 8.6 MG TABLET Take 1 tablet by mouth twice * OXYBUTYNIN CHLORIDE 5 MG TABL* Take 1 tablet by mouth as nee* QUETIAPINE 200 MG TABLET TAKE (1) TABLET BY MOUTH TWIC* QUETIAPINE 100 MG TABLET TAKE 1 TABLET BY MOUTH ONCE D* AMMONIUM LACTATE 12 % TOPICAL* Apply 1 application to affect* COMPOUNDED PRESCRIPTION Please provide ARKKAY glucoca* BISACODYL 10 MG RECTAL SUPPOS* 1 Suppository by RECTAL route* Patient not taking: Reported on 03/05/2018 DOCUSATE SODIUM 100 MG CAPSULE Take 1 capsule by mouth twice* Problem List As Of Date 04/23/2018 Noted Resolved ATTN DEFICIT W HYPERACT [F90.9] INVALID FOR* Uncontrolled type 1 diabetes mellitus (HCC) [E1*INVALID FOR* HYDRONEPHROSIS [N13.30] INVALID FOR* 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 Allergic rhinitis [J30.9] DVT of left axillary vein, acute (HCC) [I82.A12]INVALID FOR* Encounter Status:Closed by KHLOE PRUETT LPN on 04/27/18 BEDSIDE GLUCOSE Collected: 04/22/2018 Status: F Source: [place] 11:53 AM [facility] REPOSITORY TYPE CODE TESTS RESULT OUT OF REFERENCE UNITS RANGE LAB L501.080 70-110 mg/dL High BEDSIDE GLU 265 Result Comment: MANAGEMENT OF PATIENT CARE PER NURSING PROTOCOL Performed By: #### L501.080 #### [facility] Point of Care [address] [place] [address] DISCHARGE SUMMARY Observed: 04/22/2018 Status: F Source: [place] 9:10 AM [facility] REPOSITORY [facility] Medical Records Department [address] [place] [address] Discharge Summary 04/22/18 0905 MR#: [id number] Acct: [id number] Name: JARON MORSE Yaquelin Rep #: [id number] : 1980 38 From: Yassine Baer DO PCP: Francine Clark MD Status: ADM IN Location: [place] [address] Discharge Date and Diagnosis - Problem List Patient Problems: Active and Suspected Problems (Last Updated 04/21/18 @ 08:32 by Yassine Baer DO) Hematuria (Acute) Acute blood loss anemia (Acute) Date of Admission: 04/20/18 Date of Discharge: 04/22/18 - Primary Discharge Diagnosis Active and Suspected Problems (Last Updated 04/21/18 @ 08:32 by Yassine Baer DO) CKD (chronic kidney disease) stage 5, GFR less than 15 ml/min (Acute) Hematuria (Acute) Acute blood loss anemia (Acute) 1. hematuria * ongoing * patient with intermittent flushes * CT concerning for bladder inflammation or lesion (lesion may be clot debris) * seen and do not recommend continuous flushing at this time. Catheter changed 2. Acute blood loss anemia * 2/2 above * Hg 13.2 on 04/18, now 8.5 * no transfusions at this time * continue to monitor H/H 3. Ileus * asymptomatic * seen on CT * on regular diet 4. ESRD * not on HD * nephrology on consult 5. Syncope * suspect vaso-vagal - Secondary Discharge Diagnosis Chronic Problems (Last Updated 04/21/18 @ 08:32 by Yassine Baer DO) ESRD (end stage renal disease) (Chronic) Problem with dialysis access (Chronic) History of suprapubic catheter (Chronic) Hx of exploratory laparotomy (Chronic) hx of PICC Line (Chronic) History of esophagogastroduodenoscopy (EGD) (Chronic) 08/21/12 Hx of colonoscopy (Chronic) 08/21/12 and 12/04/14 (decompression for pseudoobstruction) Hx of arteriovenostomy for renal dialysis (Chronic) transposition left upper arm cephalic vein to brachial artery arteriovenous fistula creation- 12/17/15 Right forearm Radial to cephalic AV fistula- 02/16/18 Hx of appendectomy (Chronic) 2000 Strabismus (Chronic) Disruptive Behavior Disorder (Chronic) Diabetic retinopathy (Chronic) History of constipation (Chronic) Chronic kidney disease (Chronic) History of Suprapubic Cystostomy (Chronic) History of anxiety disorder (Chronic) Hospital Course and Treatment Imaging Results: Clinical Impression(s) from Imaging Studies Abdomen/Pelvis CT 04/20/18 10:32 IMPRESSION: Bladder contains a suprapubic catheter and also significant heterogeneous debris. Findings suggest inflammation or mass lesion. Stable bilateral nephrocalcinosis and renal atrophy Small bowel ileus Retained stool throughout the colon Degenerative bony changes Electronically Signed: Tyrel Cortés MD at 12:41 EDT , Service support , Dr. Gonzales Operations: None Procedures: None Summary of Care Provided: The patient is a 38 year old M presents with syncope. Patient was having hematuria. Patient's hemoglobin had dropped down considerably from 13.2 on HEENT to 8 on the fourth. This is due to hematuria. Patient was seen in consultation by irrigation intermittently but without continuous. Patient also seen by nephrology who stated patient is not on long-term dialysis but was but has subsequently come off. Patient's hematuria did resolve. Patient hemoglobin did drop down to 8. Patient will be recommend to take ferrous sulfate 325 mg twice daily. Patient instructed to have a CBC in 1 week's time.. [] Patient Problems: Active and Suspected Problems (Last Updated 04/21/18 @ 08:32 by Yassine Baer DO) Hematuria (Acute) Acute blood loss anemia (Acute) - Physical Exam General: Alert, Cooperative, No apparent distress HEENT: Atraumatic, Normocephalic Oral: Moist Mucosa, No Gingival or Mucosal Lesions/ Ulcerations Neck: No Nodes, Thyroid Normal Size and Texture Lungs: Clear to auscultation, Normal air movement, No rhonchi, No wheeze Cardiovascular: Regular rate, Regular Rhythm, Normal S1, Normal S2, No murmurs Abdomen: Bowel Sounds Present, Soft, Non Tender, Non-Distended, No Hepato-splenomegaly Extremities: No edema, No Calf Tenderness Skin: No rashes, No breakdown Vital Signs Temp Pulse Resp BP Pulse Ox 36.6 C 87 20 H 126/77 H 99 04/22/18 08:20 04/22/18 08:20 04/22/18 08:20 04/22/18 08:20 04/22/18 08:20 Oxygen Flow Rate (L/min) 1 Oxygen Delivery Method Nasal Cannula Weight: 104.054 kg Body Mass Index (BMI) 39.4 Finger Stick Blood Glucose 136 Intake and Output for Last 24 Hours Intake Total 480 / 480 1740 / 1740 1280 / 1280 Output Total 1930 / 1930 3525 / 3525 1875 / 1875 Balance -1450 / -1450 -1785 / -1785 -595 / -595 Microbiology Past 72 Hours 04/20/18 12:21 Urine Culture - Preliminary Urine, Catheterized Mixed Gram Pos AND Gram Neg Org Laboratory Tests Past 24 Hrs WBC 7.4 5.0 RBC 2.55 L 2.54 L Hgb 8.3 L 8.0 L POC Glucose POC Glucose 198 H 249 H 192 H Discharge Diet: 1800 Calorie Control Diet, Renal Diet Discharge Activity: Return to Normal Activity Call your doctor if you observe: Fever of 101 or Higher, Shortness of breath, Fainting spells, - - lightheadedness. continued hematuria. Home Medications: Medications to take at Discharge Ascorbic Acid [Vitamin C] 1,000 mg PO DAILY 02/21/15 Fluoxetine [Prozac] 20 mg PO DAILY 02/21/15 Loratadine [Claritin] 10 mg PO DAILY 07/08/15 Melatonin 3 mg PO QHS 12/09/15 Insulin Lispro [Humalog Kwikpen] 0 unit SQ TIDCM 08/29/16 Sennosides [Senna] 8.6 mg PO BID 12/29/16 Insulin Lispro [Humalog] 8 unit SQ 0700,1700 12/24/17 Cholecalciferol (Vitamin D3) [Vitamin D3] 5,000 unit PO DAILY 01/09/18 Insulin Glargine [Lantus SoloStar Pen] 14 units SC QHS 02/09/18 Polyethylene Glycol 3350 [Miralax] 17 gm PO 0800,1600 02/09/18 Albuterol Inhaler [Ventolin Hfa] 2 puff INHALATION Q4H PRN PRN 04/20/18 Ammonium Lactate [Amlactin] 1 applic TP BID 04/20/18 Aspirin E.C. [Ecotrin] 81 mg PO DAILY@0800 04/20/18 Atorvastatin Calcium 5 mg PO QHS 04/20/18 Citric AC/Gluconolact/Mag Carb [Renacidin Irrigation Solution] 30 ml IR 0800,1600,199904/20/18 Fluoxetine [Prozac] 10 mg PO DAILY 04/20/18 Fluticasone 0.05% [Flonase Nasal [place]] 2 spray NASAL DAILY 04/20/18 Insulin Glargine,Hum.rec.anlog [Lantus] 14 unit SQ DAILY 04/20/18 Insulin Lispro [Humalog] 4 unit SQ 1100 04/20/18 Ketoconazole 1 applic TP UD 04/20/18 Metoprolol Tartrate 12.5 mg PO BID 04/20/18 Olopatadine HCl [Pataday] 1 drop EACHEYE DAILY 04/20/18 Oxybutynin [Ditropan] 5 mg PO DAILY PRN 04/20/18 Pantoprazole Sodium [Protonix] 40 mg PO DAILY 04/20/18 Polyethylene Glycol 3350 [Miralax] 17 gm PO QHS PRN 04/20/18 Quetiapine Fumarate [Seroquel] 100 mg PO 1700 04/20/18 Quetiapine Fumarate [Seroquel] 200 mg PO 0800,199904/20/18 Ferrous Sulfate 325 mg PO BIDCM #28 tablet 04/22/18 Following Prescrptions Were Given to Patient: Ferrous Sulfate 325 mg PO BIDCM #28 tablet Other Amb Orders: CBC W/Diff, Automated Time Frame: 1 Week, Location: Laboratory Primary Care Physician: Francine Clark MD [Primary Care Provider] - Within 2 Weeks Please Follow Up With: Jose Juan Lopez MD When: 1-2 weeks Disposition: Home Minutes spent on discharge:: 32 Patient Condition:: Fair Medical Necessity - Tobacco Use Smoking Status: Never smoker Tobacco Use: Non-smoker Meaningful Use Info Meaningful Use Diagnoses (Choose all that apply): None applicable Code Visit Inpatient E AND M: 02640 Disch Hosp 04/22/18909 <Electronically signed by Yassine Baer DO> Date Yassine Baer DO Cosigner Signature (if applicable): Date CC: Yassine Baer DO; Francine Clark MD Signed DISCHARGE INSTRUCTION Observed: 04/22/2018 Status: F Source: [place] 9:05 AM [facility] REPOSITORY [facility] Medical Records Department [address] [place] [address] Instructions for Home/Discharge Instructions 04/22/18 0903 MR#: [id number] Acct: [id number] Name: JARON MORSE Rep #: [id number] : 1980 38 From: Yassine Baer DO PCP: Eduardo [place],Francine Status: ADM IN - Discharge Diagnoses Current Active Problems: Current Active and Chronic Problems (Last Updated 04/21/18 @ 08:32 by Yassine Baer DO) CKD (chronic kidney disease) stage 5, GFR less than 15 ml/min (Acute) Hematuria (Acute) ESRD (end stage renal disease) (Chronic) Acute blood loss anemia (Acute) You will use the following diet at home:: Calorie/Carbohydrate Controlled (specify 1200, 1400, etc) - 1800 Your food should be the consistency of: Regular Your liquids should be the consistency of: Regular/Thin Call your doctor if you observe: Fever of 101 or Higher, Shortness of breath, Fainting spells, - - lightheadedness. continued hematuria. Allergies/Adverse Reactions: Allergies No Known Allergies Allergy (Verified 04/20/18 10:37) Medications to take at Discharge Ascorbic Acid [Vitamin C] 1,000 mg PO DAILY 02/21/15 Fluoxetine [Prozac] 20 mg PO DAILY 02/21/15 Loratadine [Claritin] 10 mg PO DAILY 07/08/15 Melatonin 3 mg PO QHS 12/09/15 Insulin Lispro [Humalog Kwikpen] 0 unit SQ TIDCM 08/29/16 Sennosides [Senna] 8.6 mg PO BID 12/29/16 Insulin Lispro [Humalog] 8 unit SQ 0700,1700 12/24/17 Cholecalciferol (Vitamin D3) [Vitamin D3] 5,000 unit PO DAILY 01/09/18 Insulin Glargine [Lantus SoloStar Pen] 14 units SC QHS 02/09/18 Polyethylene Glycol 3350 [Miralax] 17 gm PO 0800,1600 02/09/18 Albuterol Inhaler [Ventolin Hfa] 2 puff INHALATION Q4H PRN PRN 04/20/18 Ammonium Lactate [Amlactin] 1 applic TP BID 04/20/18 Aspirin E.C. [Ecotrin] 81 mg PO DAILY@0800 04/20/18 Atorvastatin Calcium 5 mg PO QHS 04/20/18 Citric AC/Gluconolact/Mag Carb [Renacidin Irrigation Solution] 30 ml IR 0800,1600,199904/20/18 Fluoxetine [Prozac] 10 mg PO DAILY 04/20/18 Fluticasone 0.05% [Flonase Nasal [place]] 2 spray NASAL DAILY 04/20/18 Insulin Glargine,Hum.rec.anlog [Lantus] 14 unit SQ DAILY 04/20/18 Insulin Lispro [Humalog] 4 unit SQ 1100 04/20/18 Ketoconazole 1 applic TP UD 04/20/18 Metoprolol Tartrate 12.5 mg PO BID 04/20/18 Olopatadine HCl [Pataday] 1 drop EACHEYE DAILY 04/20/18 Oxybutynin [Ditropan] 5 mg PO DAILY PRN 04/20/18 Pantoprazole Sodium [Protonix] 40 mg PO DAILY 04/20/18 Polyethylene Glycol 3350 [Miralax] 17 gm PO QHS PRN 04/20/18 Quetiapine Fumarate [Seroquel] 100 mg PO 1700 04/20/18 Quetiapine Fumarate [Seroquel] 200 mg PO 0800,2000 04/20/18 Ferrous Sulfate 325 mg PO BIDCM #28 tablet 04/22/18 The following prescriptions were given: Ferrous Sulfate 325 mg PO BIDCM #28 tablet Orders to be completed after discharge: CBC W/Diff, Automated Time Frame: 1 Week, Location: Laboratory Primary Care Physician: Francine Clark MD [Primary Care Provider] - Within 2 Weeks Test Results: Test results from this visit will be discussed in further detail at your follow-up appointment, if applicable. Please Follow Up With: Jose Juan Lopez MD When: 1-2 weeks Proposed Discharge Date: 04/22/18 04/22/18904 <Electronically signed by Yassine Baer DO> Date Yassine Baer DO CC: Madi Gonzales M.D.; Jose Juan Lopez MD; Francine Clark MD BEDSIDE GLUCOSE Collected: 04/22/2018 Status: F Source: GREG 8:24 AM [facility] REPOSITORY TYPE CODE TESTS RESULT OUT OF REFERENCE UNITS RANGE LAB L501.080 70-110 mg/dL High BEDSIDE GLU 198 Result Comment: MANAGEMENT OF PATIENT CARE PER NURSING PROTOCOL Performed By: #### L501.080 #### [facility] Laboratory Point of Care [address] [place], [place] [id number] CBC W/DIFF, AUTOMATED Collected: 04/22/2018 Status: F Source: GREG 7:26 AM [facility] REPOSITORY TYPE CODE TESTS RESULT OUT OF RANGE REFERENCE UNITS LAB L100.1000 4.4-11.0 K/mm3 Normal WBC 5.0 LAB L100.1200 4.6-6.2 M/mm3 Low RBC 2.54 LAB L100.1300 13.0-16.5 g/dl Low HGB 8.0 LAB L100.1400 40-54 % Low HCT 25.3 LAB L100.1500 80-94 fL High MCV 99.6 LAB L100.1600 27.0-32.0 pg Normal MCH 31.5 LAB L100.1700 32-36 g/gl Low MCHC 31.6 LAB L100.1810 11.6-14.6 % Normal RDW CV 12.3 LAB L100.1820 35.1-43.9 fl Normal RDW SD 42.8 LAB L100.1900 150-450 K/mm3 Normal PLT 160 LAB L100.2000 6.2-12.0 fl Normal MPV 10.8 LAB L100.2100 47-70 % Normal NEUT% 47.7 LAB L100.2200 19-41 % Normal LY% 35.4 LAB L100.2300 0-10 % High MONO% 13.5 LAB L100.2400 0-5 % Normal EO% 3.2 LAB L100.2500 0-1 % Normal BASO% 0.2 LAB L100.2550 0.0-0.9 % Normal IM GRAN % 0.000 Result Comment: IG% - Immature Granulocytes (promyelocytes, myelocytes and metamyelocytes) > 1% indicates that a LEFT SHIFT is Present. LAB L100.2620 2.0-7.7 X10 3/uL Normal Absolute Neut 2.4 LAB L100.2720 0.83-4.51 X10 3/ul Normal Absolute Lymph 1.75 Performed By: #### L100.0100 #### [facility] [address] [facility] [place], [address] BASIC METABOLIC Collected: 04/22/2018 Status: F Source: BARTOW PROFILE ([facility]) 7:26 AM [facility] REPOSITORY TYPE CODE TESTS RESULT OUT OF RANGE REFERENCE UNITS LAB L501.0100 74-106 mg/dL High GLU 147 Result Comment: Fasting Glucose result greater than or equal to 126 mg/dL suggests DIABETES MELLITUS per A.D.A. criteria. Please note revised GLUCOSE reference range effective 2017. LAB L501.1000 7-18 mg/dL High BUN 79 LAB L501.1100 0.70-1.30 mg/dL High CREAT,SERUM 4.41 Result Comment: The validity of the calculated GFR AND GFRAA in patients over 70 years has not been determined. Clinical correlation is essential. LAB L501.1110 >60 mL/min Low EST GFR 16 Result Comment: Non- GFR Calc LAB L501.1115 >60 mL/min Low EST GFR - AA 20 Result Comment: GFR Calc LAB L501.1255 ml/min Normal Estimated CRCL 19.39 LAB L501.1300 10-20 RATIO Normal BUN/CRE 17.9 LAB L501.2200 8.5-10 mg/dL Low .1 CA 8.0 LAB L501.5300 136-14 mmol/L Normal 5 NA 142 LAB L501.5600 3.5-5. mmol/L Normal 1 K 4.3 LAB L501.5900 98-107 mmol/L Normal CL 106 LAB L501.6100 21.0-3 mmol/L Normal 2.0 CO2 27.0 LAB L501.6200 5-15 Normal GAP 9 Performed By: #### L500.2500 #### [facility] [address] [place], [address] BEDSIDE GLUCOSE Collected: 04/21/2018 Status: F Source: BARTOW 10:12 PM [facility] REPOSITORY TYPE CODE TESTS RESULT OUT OF REFERENCE UNITS RANGE LAB L501.080 70-110 mg/dL High BEDSIDE GLU 198 Result Comment: MANAGEMENT OF PATIENT CARE PER NURSING PROTOCOL Performed By: #### L501.080 #### [facility] Laboratory Point of Care [address] [place] [address] CONSULTATION Observed: 04/21/2018 Status: F Source: BARTOW 5:12 PM [facility] REPOSITORY [facility] Medical Records Department [address] [place] [address] Consultation 04/21/18 1706 MR#: [id number] Acct: [id number] Name: JARON MORSE Rep #: [id number] : 1980 38 From: Stan Gonzales MD PCP: Francine Clark MD Status: ADM IN Y Location: MS3 [id number] Problem List (1) CKD (chronic kidney disease) stage 5, GFR less than 15 ml/min Status: Acute Consultation - Renal 04/21/18 PCP/ Referring MD: Requesting physician: Dr Baer Primary care physician: Francine Clark Reason for Consultation:: CKD stage 5 - History of Present Illness History of Present Illness: The patient is a 38 year old M well known to us from office. CKD stage 5 secondary to chronic obstructive nephropathy. 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 recently had a right arm AVF placed in anticipation of dialysis since renal function was progressively getting worse. came in with hematuria. seen by urology. currently denies any complaints. looks somewhat edematous. no nausea or vomiting - Allergies Allergies: Allergies No Known Allergies Allergy (Verified 04/20/18 10:37) - Current Medications Current Medications: Current Medications Acetaminophen (Tylenol) 650 mg PO Q4H PRN PRN PRN Reason: PAIN Last Admin: 04/21/18 14:54 Dose: 650 mg Albuterol Sulfate (Ventolin Aerosols) 2.5 mg INHALATION Q4H PRN PRN Reason: SHORTNESS OF BREATH Ascorbic Acid (Vitamin C) 1,000 mg PO DAILY [facility] Last Admin: 04/21/18 08:12 Dose: 1,000 mg Aspirin (Ecotrin) 81 mg PO DAILY@0800 [facility] Last Admin: 04/21/18 08:09 Dose: 81 mg Atorvastatin Calcium (Lipitor) 5 mg PO QHS [facility] Last Admin: 04/20/18 21:06 Dose: 5 mg Cholecalciferol (Vitamin D) 5,000 unit PO DAILY [facility] Last Admin: 04/21/18 08:11 Dose: 5,000 unit Emollient Ointment (Eucerin Intensive Repair) 1 applic TOPICAL BID [facility] Last Admin: 04/21/18 08:17 Dose: 1 applicatio Ferrous Sulfate (Ferrous Sulfate) 650 mg PO DAILY@0800 [facility] Last Admin: 04/21/18 08:13 Dose: 650 mg Fluoxetine HCl (Prozac) 30 mg PO DAILY [facility] Last Admin: 04/21/18 08:09 Dose: 30 mg Fluticasone Propionate (Flonase Nasal [place]) 2 spray NASAL DAILY [facility] Last Admin: 04/21/18 08:13 Dose: 2 spray Insulin Glargine (Lantus (Bkc)) 14 units SC BID [facility] Last Admin: 04/21/18 08:14 Dose: 14 u Insulin Human Lispro (Humalog Kwikpen ([facility])) 8 unit SC 0800,1700 [facility] Last Admin: 04/21/18 16:27 Dose: 8 u Insulin Human Lispro (Humalog Kwikpen ([facility])) 4 unit SC 1100 [facility] Last Admin: 04/21/18 11:55 Dose: 4 u Loratadine (Claritin) 10 mg PO DAILY [facility] Last Admin: 04/21/18 08:11 Dose: 10 mg Magnesium Hydroxide (Milk Of Magnesia) 30 ml PO DAILY PRN PRN PRN Reason: Constipation Melatonin (Melatonin) 3 mg PO QHS [facility] Last Admin: 04/20/18 21:09 Dose: 3 mg Metoprolol Tartrate (Lopressor (Beta August)) 12.5 mg PO BID [facility] Last Admin: 04/21/18 08:09 Dose: 12.5 mg Non-Formulary Medication (Citric Ac/Gluconolact/Mag Carb [Renacidin Irrigation Solution]) 30 ml IR 0800,1600,1999 [facility] Non-Formulary Medication (Olopatadine Hcl [Pataday]) 1 drop EACHEYE DAILY [facility] Oxybutynin Chloride (Ditropan) 5 mg PO DAILY PRN PRN Reason: BLADDER SPASMS Pantoprazole Sodium (Protonix) 40 mg PO DAILY [facility] Last Admin: 04/21/18 08:09 Dose: 40 mg Polyethylene Glycol (Miralax) 17 gm PO QHS PRN PRN Reason: if pt does not have large BM Polyethylene Glycol (Miralax) 17 gm PO 0800,1600 [facility] Last Admin: 04/21/18 16:27 Dose: 17 gm Quetiapine Fumarate (Seroquel) 100 mg PO 1700 [facility] Last Admin: 04/21/18 16:27 Dose: 100 mg Quetiapine Fumarate (Seroquel) 200 mg PO 0800,2000 [facility] Last Admin: 04/21/18 08:12 Dose: 200 mg Senna (Senokot) 1 tablet PO BID [facility] Last Admin: 04/21/18 08:10 Dose: 1 tablet Sodium Chloride () 5 - 30 ml IV UD PRN PRN Reason: SALINE FLUSH - Past Medical History Past Medical History (Chronic Problems): Chronic Problems (Last Updated 04/21/18 @ 08:32 by Yassine Baer DO) ESRD (end stage renal disease) (Chronic) Problem with dialysis access (Chronic) History of suprapubic catheter (Chronic) Hx of exploratory laparotomy (Chronic) hx of PICC Line (Chronic) History of esophagogastroduodenoscopy (EGD) (Chronic) 08/21/12 Hx of colonoscopy (Chronic) 08/21/12 and 12/04/14 (decompression for pseudoobstruction) Hx of arteriovenostomy for renal dialysis (Chronic) transposition left upper arm cephalic vein to brachial artery arteriovenous fistula creation- 12/17/15 Right forearm Radial to cephalic AV fistula- 02/16/18 Hx of appendectomy (Chronic) 2000 Strabismus (Chronic) Disruptive Behavior Disorder (Chronic) Diabetic retinopathy (Chronic) History of constipation (Chronic) Chronic kidney disease (Chronic) History of Suprapubic Cystostomy (Chronic) History of anxiety disorder (Chronic) - Past Surgical History Surgical History: appendectomy, - - Social History Smoking Status: Never smoker Alcohol: None Drugs: None - Family History Maternal History Items: No pertinent history Paternal History Items: No pertinent history Review of Systems Constitutional: Denies: Chills, Fever, Weight Change HEENT: Denies: Head Aches, Sinus Congestion, Sinus Drainage Cardiovascular: Denies: Chest Pain, Palpitations Respiratory: Denies: Cough, Shortness of breath at rest, Sputum production Gastrointestinal: Denies: Abdominal Pain, Nausea, Vomiting Genitourinary: Denies: Dysuria Musculoskeletal: Denies: Joint Pain, Joint Tenderness Skin: Denies: Rash, Wounds Neurological: Denies: Numbness, Tingling, Focal weakness Psychiatric: Denies: Anxiety, Depression, Homicidal Ideations, Suicidal Ideations Hematologic/ Lymphatic: Denies: Easy Bruising, Easy Bleeding Patient Problems: Active and Suspected Problems (Last Updated 04/21/18 @ 08:32 by Yassine Baer DO) CKD (chronic kidney disease) stage 5, GFR less than 15 ml/min (Acute) Hematuria (Acute) Acute blood loss anemia (Acute) - Physical Exam General: Alert, Oriented x3, Cooperative HEENT: Atraumatic, PERRLA, EOMI, Normocephalic Neck: Supple, No JVD, Negative Carotid Bruits Lungs: Clear to auscultation, Normal air movement Cardiovascular: Regular rate, No murmurs Abdomen: Bowel Sounds Present, Soft, Non Tender Extremities: No edema, Capillary Refill Less than 3 Seconds Skin: No rashes, No breakdown Musculoskeletal: No Tenderness to Palpation of Joints or Extremities Neurological: Cranial nerves II-XII grossly intact Psych/Mental Status: Normal Affect, Appropriate Vital Signs Temp Pulse Resp BP Pulse Ox 99.0 F 98 18 103/56 L 92 04/21/18 14:48 04/21/18 14:48 04/21/18 14:48 04/21/18 14:48 04/21/18 14:48 Oxygen Flow Rate (L/min) 1 Oxygen Delivery Method Room Air Weight: 104.054 kg Body Mass Index (BMI) 39.4 Finger Stick Blood Glucose 136 Intake and Output for Last 24 Hours Intake Total 480 / 480 1260 / 1260 Output Total 1930 / 1930 2975 / 2975 Balance -1450 / -1450 -1715 / -1715 Microbiology Past 72 Hours 04/20/18 12:21 Urine Culture - Preliminary Urine, Catheterized Mixed Gram Pos AND Gram Neg Org Laboratory Tests Past 24 Hrs WBC 5.3 7.4 RBC 2.72 L 2.55 L Hgb 8.5 L 8.3 L POC Glucose POC Glucose 249 H 192 H 218 H POC Glucose 410 H Assessment/Plan All Active Problems (Last Updated 04/21/18 @ 08:32 by Yassine Baer DO) CKD (chronic kidney disease) stage 5, GFR less than 15 ml/min (Acute) Hematuria (Acute) Acute blood loss anemia (Acute) Wheezing (Resolved) Hyponatremia (Resolved) Ileus (Resolved) CKD stage 5. fairly advanced CKD. secondary to obstructive nephropathy. did require about 4-5 sessions on dialysis when he was recently admitted at [facility] but was able to come off. at that time his fistula clotted off. a new fistula was placed in anticipation of dialysis. currently not uremic, electrolytes are ok. looks somewhat edematous but no difficulty breathing. AVF was just placed. dont see a need to start dialysis right now by placing a tunneled line. can wait till AVF is ready hematuria. looks better now. Hb dropped quite a bit. He developed a superficial DVT(line associated) at [facility] for which he was placed on eliquis. discussed with Dr clark recently and this was discontinued due to hematuria since he finished required duration of DVT treatment Anemia. transfuse if Hb less than 7 d/w Dr Baer Thank you 04/21/18 1712 <Electronically signed by Stan Goznales MD> Date Stan Gonzales MD Cosigner Signature (if applicable): Date CC: Madi Gonzales M.D.; Jose Juan Lopez MD; Francine Clark MD Signed BEDSIDE GLUCOSE Collected: 04/21/2018 Status: F Source: BARTOW 4:25 PM [facility] REPOSITORY TYPE CODE TESTS RESULT OUT OF REFERENCE UNITS RANGE LAB L501.080 70-110 mg/dL High BEDSIDE GLU 249 Result Comment: MANAGEMENT OF PATIENT CARE PER NURSING PROTOCOL Performed By: #### L501.080 #### [facility] Laboratory Point of Care [address], [place] [address] CBC W/DIFF, AUTOMATED Collected: 04/21/2018 Status: F Source: BARTOW 2:32 PM [facility] REPOSITORY TYPE CODE TESTS RESULT OUT OF RANGE REFERENCE UNITS LAB L100.1000 4.4-11.0 K/mm3 Normal WBC 7.4 LAB L100.1200 4.6-6.2 M/mm3 Low RBC 2.55 LAB L100.1300 13.0-16.5 g/dl Low HGB 8.3 LAB L100.1400 40-54 % Low HCT 25.5 LAB L100.1500 80-94 fL High MCV 100.0 LAB L100.1600 27.0-32.0 pg High MCH 32.5 LAB L100.1700 32-36 g/gl Normal MCHC 32.5 LAB L100.1810 11.6-14.6 % Normal RDW CV 12.2 LAB L100.1820 35.1-43.9 fl Normal RDW SD 43.2 LAB L100.1900 150-450 K/mm3 Normal PLT 157 LAB L100.2000 6.2-12.0 fl Normal MPV 11.1 LAB L100.2100 47-70 % Normal NEUT% 57.9 LAB L100.2200 19-41 % Normal LY% 25.0 LAB L100.2300 0-10 % High MONO% 14.4 LAB L100.2400 0-5 % Normal EO% 2.3 LAB L100.2500 0-1 % Normal BASO% 0.1 LAB L100.2550 0.0-0.9 % Normal IM GRAN % 0.300 Result Comment: IG% - Immature Granulocytes (promyelocytes, myelocytes and metamyelocytes) > 1% indicates that a LEFT SHIFT is Present. LAB L100.2620 2.0-7.7 X10 3/uL Normal Absolute Neut 4.3 LAB L100.2720 0.83-4.51 X10 3/ul Normal Absolute Lymph 1.86 Performed By: #### L100.0100 #### [facility] [address] [facility] [address] BEDSIDE GLUCOSE Collected: 04/21/2018 Status: F Source: BARTOW 11:53 AM [facility] REPOSITORY TYPE CODE TESTS RESULT OUT OF REFERENCE UNITS RANGE LAB L501.080 70-110 mg/dL High BEDSIDE GLU 192 Result Comment: MANAGEMENT OF PATIENT CARE PER NURSING PROTOCOL Performed By: #### L501.080 #### [facility] Point of Care [address] [place] [address] BEDSIDE GLUCOSE Collected: 04/21/2018 Status: F Source: GREG 8:23 AM [facility] REPOSITORY TYPE CODE TESTS RESULT OUT OF REFERENCE UNITS RANGE LAB L501.080 70-110 mg/dL High BEDSIDE GLU 218 Result Comment: MANAGEMENT OF PATIENT CARE PER NURSING PROTOCOL Performed By: #### L501.080 #### [facility] Point of Care [address] [facility] [place] [address] CBC W/DIFF, AUTOMATED Collected: 04/21/2018 Status: F Source: BARTOW 7:54 AM [facility] REPOSITORY TYPE CODE TESTS RESULT OUT OF RANGE REFERENCE UNITS LAB L100.1000 4.4-11.0 K/mm3 Normal WBC 5.3 LAB L100.1200 4.6-6.2 M/mm3 Low RBC 2.72 LAB L100.1300 13.0-16.5 g/dl Low HGB 8.5 LAB L100.1400 40-54 % Low HCT 26.6 LAB L100.1500 80-94 fL High MCV 97.8 LAB L100.1600 27.0-32.0 pg Normal MCH 31.3 LAB L100.1700 32-36 g/gl Normal MCHC 32.0 LAB L100.1810 11.6-14.6 % Normal RDW CV 12.9 LAB L100.1820 35.1-43.9 fl High RDW SD 45.9 LAB L100.1900 150-450 K/mm3 Normal PLT 165 LAB L100.2000 6.2-12.0 fl Normal MPV 10.7 LAB L100.2100 47-70 % Normal NEUT% 58.2 LAB L100.2200 19-41 % Normal LY% 27.7 LAB L100.2300 0-10 % High MONO% 11.4 LAB L100.2400 0-5 % Normal EO% 2.5 LAB L100.2500 0-1 % Normal BASO% 0.2 LAB L100.2550 0.0-0.9 % Normal IM GRAN % 0.000 Result Comment: IG% - Immature Granulocytes (promyelocytes, myelocytes and metamyelocytes) > 1% indicates that a LEFT SHIFT is Present. LAB L100.2620 2.0-7.7 X10 3/uL Normal Absolute Neut 3.1 LAB L100.2720 0.83-4.51 X10 3/ul Normal Absolute Lymph 1.46 Performed By: #### L100.0100 #### [facility] [address] [place], [place], [address] BASIC METABOLIC Collected: 04/21/2018 Status: F Source: GREG PROFILE ([facility]) 7:54 AM [facility] REPOSITORY TYPE CODE TESTS RESULT OUT OF RANGE REFERENCE UNITS LAB L501.0100 74-106 mg/dL High GLU 229 Result Comment: Glucose result greater than or equal to 200 mg/dL suggests DIABETES MELLITUS per A.D.A. criteria. Please note revised GLUCOSE reference range effective 2017. LAB L501.1000 7-18 mg/dL High BUN 78 LAB L501.1100 0.70-1.30 mg/dL High CREAT,SERUM 4.34 Result Comment: The validity of the calculated GFR AND GFRAA in patients over 70 years has not been determined. Clinical correlation is essential. LAB L501.1110 >60 mL/min Low EST GFR 17 Result Comment: Non- GFR Calc LAB L501.1115 >60 mL/min Low EST GFR - AA 20 Result Comment: GFR Calc LAB L501.1255 ml/min Normal Estimated CRCL 19.70 LAB L501.1300 10-20 RATIO Normal BUN/CRE 18.0 LAB L501.2200 8.5-10 mg/dL Low .1 CA 8.1 LAB L501.5300 136-14 mmol/L Normal 5 NA 138 LAB L501.5600 3.5-5. mmol/L Normal 1 K 5.0 LAB L501.5900 98-107 mmol/L Normal CL 105 LAB L501.6100 21.0-3 mmol/L Normal 2.0 CO2 25.0 LAB L501.6200 5-15 Normal GAP 8 Performed By: #### L500.2500 #### [facility] [address] [facility] [place], [address] BEDSIDE GLUCOSE Collected: 04/20/2018 Status: F Source: BARTOW 9:03 PM [facility] REPOSITORY TYPE CODE TESTS RESULT OUT OF REFERENCE UNITS RANGE LAB L501.080 70-110 mg/dL High BEDSIDE GLU 410 Result Comment: Insulin Given MANAGEMENT OF PATIENT CARE PER NURSING PROTOCOL Performed By: #### L501.080 #### [facility] Point of Care [address] [facility] [place] [address] EMERGENCY DEPARTMENT Observed: 04/20/2018 Status: F Source: BARTOW SUMMARY 4:29 PM [facility] REPOSITORY [facility] Medical Records Department [address] [place] [address] Emergency Department Summary 04/20/18 1101 MR#: [id number] Acct: [id number] Name: JARON MORSE Rep #: [id number] : 1980 38 From: Harshad Patel MD PCP: Francine Clark MD Status: ADM MALISSA - ER Visit Summary Date of Service: 04/20/18 Chief Complaint: Hematuria History of Present Illness: The patient is a [address] Clark, Dr. Lopez, and Dr. Gonzales. He reports he has hematuria that began 2 days ago and is worsened. Is now passing clots. He does have a history of a suprapubic catheter. It was most recently changed by Dr. morley on January 17. Patient reports that he has diffuse abdominal pain that is 6 out of 10 severity. He describes it as sharp and aching. He denies any nausea, vomiting, or diarrhea. His last bowel was today. He has had no blood in his stools. He denies any fever or chills. He reports that he has low back pain is 8 out of 10 severity that began today. He denies any trauma. Physical Examination: Vitals: Stable. Afebrile. General: Well-nourished and well-developed. Head: Normocephalic atraumatic. Neck: Supple, no lymphadenopathy. No JVD. Nontender. Cardiovascular: Regular rate and rhythm. No murmurs. Respiratory: No respiratory distress. Clear to auscultation bilaterally. Abdominal: Soft, moderate diffuse tenderness palpation. Abdomen is distended with hypoactive bowel sounds. No guarding, rebound, or peritoneal signs. Back: Nontender. Extremities: Nontender, no edema. Skin: Normal color, no rash. Neurologic: Alert and oriented 3. Cranial nerves II through XII are intact. Normal strength and sensation. Psych: Normal affect. Test Results: CBC is remarkable for an H AND H of 11.1 and 35.1. Hemoglobin on April 18 was 13.2. However, his hemoglobin is range between 9.3-13.2 in 2018. Lymphs at 19 and monocytes of 11. Chem-7 is more for glucose 173, BUN of 81, creatinine 4.40. His creatinine is range between 2.47-4.35 and 2018. LFTs are normal. Coags are normal. UA has 10-25 white blood cells and greater than 100 red blood cells. No bacteria. This was sent for culture. Clinical Impression(s) from Imaging Studies Abdomen/Pelvis CT 04/20/18 10:32 IMPRESSION: Bladder contains a suprapubic catheter and also significant heterogeneous debris. Findings suggest inflammation or mass lesion. Stable bilateral nephrocalcinosis and renal atrophy Small bowel ileus Retained stool throughout the colon Degenerative bony changes Electronically Signed: Tyrel Cortés MD at 12:41 EDT , Service support , Emergency Department Course and Treatment: Patient had an IV placed. He was given morphine and Zofran IV. Patient's urine is grossly bloody and clots are present. It was irrigated, but remains quite dark with clots. His 18 Moroccan suprapubic was changed to a 20 Moroccan. Treatment Plan: Patient was discussed with Dr. Lopez and will be discussed with the hospitalist. He will be admitted for further evaluation and treatment. Disposition: Admitted in improved condition. Impression: 1. Hematuria. 2. Ileus, small bowel. 3. Chronic renal insufficiency. 4. Anemia. This note was generated with righ[employer]une dictation software. It may contain incorrect words, spelling, and punctuation that were not noted in review of the chart prior to signing ED Disposition - Plan for ED Patient: Chief Complaint: Complaint Referrals: Francine Clark MD [Primary Care Provider] - What to do if you have Problems For any increased pain, shortness of breath, bleeding, nausea or vomiting, chest pain, or any unexpected problems, contact your Primary Care Provider. Call [facility] ([phone]) or report to the closest Emergency Room. Call 911 if necessary. 04/20/18 3416 <Electronically signed by Harshad Patel MD> Date Harshad Patel MD Cosigner Signature (If Indicated): Date CC: Francine Clark MD HISTORY AND PHYSICAL Observed: 04/20/2018 Status: F Source: BARTOW EXAM 4:08 PM [facility] REPOSITORY [facility] Medical Records Department [address] [place] [address] History and Physical 04/20/18 1530 MR#: [id number] Acct: [id number] Name: JARON MORSE Rep #: [id number] : 1980 38 From: Stef BURNETTE PCP: Francine Clark MD Status: ADM MALISSA Y Location: ID3 [id number] <Stef Graves - Last Filed: 04/20/18 15:30> Problem List (1) Hematuria Status: Acute Qualifiers: Hematuria type: gross Qualified Code(s): R31.0 - Gross hematuria (2) ESRD (end stage renal disease) Status: Chronic (3) Strabismus Status: Chronic (4) Disruptive Behavior Disorder Status: Chronic (5) Diabetic retinopathy Status: Chronic Qualifiers: Proliferative retinopathy type: unspecified Laterality: unspecified laterality History of Present Illness Date of Admission: 04/20/18 Chief Complaint: hematuria The patient is a 38 year old M with a hx of long-term suprapubic catheter, MRDD with behavioral disturbances, ESRD, upper extremity DVT, DMt2 with retinopathy and nephropathy, who presented to the ER from his [facility] with dark red hematuria and clots. He used to be on eliquis for DVT of his left upper extremity which he states occurred in august of this year. He is a dialysis pt of Dr. Gonzales, and is followed for his long time suprapubic cath by Dr. Lopez. He feels well and is mildly anemic. He initially reported some abdominal pain and CT abdomen showed bladder inflammation vs mass. Dr. Lopez saw him in the ER and recommended manual irrigation of the suprapubic. He had an unresponsive episode in the ER which did last about 1 minute requiring manual bagging for hypoxic before the patient spontaneously came to and the pt now reports no concerns or complaints. Blood sugar was normal. He has no seizure hx. No shaking was reported. CT abdomen showed possible ileus but pt moved his bowel today, now has no abdominal pain or tenderness, and has no nausea. [] Past Medical History Past Medical History (Chronic Problems): Chronic Problems (Last Reviewed 04/03/18 @ 14:04 by Kaleigh Yeager) ESRD (end stage renal disease) (Chronic) Strabismus (Chronic) Disruptive Behavior Disorder (Chronic) Diabetic retinopathy (Chronic) History of constipation (Chronic) Chronic kidney disease (Chronic) History of Suprapubic Cystostomy (Chronic) History of anxiety disorder (Chronic) Medical History: Medical History (Last Reviewed 04/03/18 @ 14:04 by Kaleigh Yeager) Problem with dialysis access (Acute) T82.898A hx of PICC Line (Acute) Strabismus (Chronic) H50.9 Disruptive Behavior Disorder (Chronic) Diabetic retinopathy (Chronic) E11.319 History of constipation (Chronic) Z87.19 Aspiration into airway (Suspected) T17.908A Wheezing (Acute) R06.2 Chronic kidney disease (Chronic) N18.9 Hyponatremia (Acute) E87.1 Ileus (Acute) K56.7 History of Suprapubic Cystostomy (Chronic) History of anxiety disorder (Chronic) Z86.59 Allergies No Known Allergies Allergy (Verified 04/20/18 10:37) Home Medications: Ambulatory Orders Medication Instructions Recorded Ascorbic Acid [Vitamin C] 1,000 mg PO DAILY 02/21/15 Fluoxetine [Prozac] 20 mg PO DAILY 02/21/15 Surgical History: Surgical History (Last Reviewed 04/03/18 @ 14:04 by Kaleigh Yeager) History of suprapubic catheter (Acute) Z98.890 Hx of exploratory laparotomy (Acute) Z98.890 History of esophagogastroduodenoscopy (EGD) (Acute) Z98.890 08/21/12 Hx of colonoscopy (Acute) Z98.890 08/21/12 and 12/04/14 (decompression for pseudoobstruction) Hx of arteriovenostomy for renal dialysis (Acute) Z99.2 transposition left upper arm cephalic vein to brachial artery arteriovenous fistula creation- 12/17/15 Right forearm Radial to cephalic AV fistula- 02/16/18 Hx of appendectomy (Acute) Z90.49 2000 Surgical History: appendectomy, - Psychiatric History: - Lives: - - [facility] Smoking Status: Never smoker Tobacco Use: Non-smoker Alcohol: None Drugs: None - *Family History Maternal History Items: No pertinent history Paternal History Items: No pertinent history Review of Systems Constitutional: Denies: Chills, Fever, Weight Change HEENT: Denies: Head Aches, Sinus Congestion, Sinus Drainage Cardiovascular: Denies: Chest Pain, Palpitations Respiratory: Denies: Cough, Shortness of breath at rest, Sputum production Gastrointestinal: Denies: Abdominal Pain, Nausea, Vomiting Genitourinary: Reports: Hematuria. Denies: Dysuria Musculoskeletal: Denies: Joint Pain, Joint Tenderness Skin: Denies: Rash, Wounds Neurological: Denies: Numbness, Tingling, Focal weakness Psychiatric: Denies: Anxiety, Depression, Homicidal Ideations, Suicidal Ideations Hematologic/ Lymphatic: Denies: Easy Bruising, Easy Bleeding VTE Information - Inpt Only VTE Present on Admission: No VTE Mechan Device Prophylaxis: SCD's VTE Pharm Prophylaxis ordered?: No Patient Problems: Active and Suspected Problems (Last Reviewed 04/03/18 @ 14:04 by Kaleigh Yeager) Hematuria (Acute) - Physical Exam General: Alert, Oriented x3, Cooperative HEENT: Atraumatic, Normocephalic, - - strabismus Neck: Supple, No JVD, Negative Carotid Bruits Lungs: Clear to auscultation, Normal air movement Cardiovascular: Regular rate, No murmurs Abdomen: Bowel Sounds Present, Soft, Non Tender Extremities: No edema, Capillary Refill Less than 3 Seconds Skin: No rashes, No breakdown Musculoskeletal: No Tenderness to Palpation of Joints or Extremities Neurological: Cranial nerves II-XII grossly intact Psych/Mental Status: Normal Affect, Appropriate Vital Signs Temp Pulse Resp BP Pulse Ox 97.4 F L 101 H 18 103/62 97 04/20/18 10:14 04/20/18 15:22 04/20/18 15:22 04/20/18 15:22 04/20/18 15:22 Oxygen Flow Rate (L/min) 2 Oxygen Delivery Method Nasal Cannula Weight: 233 lb 11.04 oz Body Mass Index (BMI) 40.1 Finger Stick Blood Glucose 136 Laboratory Tests Past 24 Hrs WBC 7.7 RBC 3.59 L Hgb 11.1 L Hct 35.1 L MCV 97.8 H MCH 30.9 MCHC 31.6 L WBC RBC Hgb Hct MCV MCH MCHC RDW RDW Differential Plt Count MPV Immature Gran % (Auto) Neut % (Auto) Lymph % (Auto) POC Glucose POC Glucose 136 H Assessment/Plan All Active Problems (Last Reviewed 04/03/18 @ 14:04 by Kaleigh Yeager) Hematuria (Acute) Problem with dialysis access (Acute) History of suprapubic catheter (Acute) Hx of exploratory laparotomy (Acute) hx of PICC Line (Acute) History of esophagogastroduodenoscopy (EGD) (Acute) Hx of colonoscopy (Acute) Hx of arteriovenostomy for renal dialysis (Acute) Hx of appendectomy (Acute) Wheezing (Acute) Hyponatremia (Acute) Ileus (Acute) 1. Hematuria - with mild anemia - unclear etiology. Pt no longer on eliquis. Continue irrigation as directed by Dr. Lopez. No further blood thinners. 2. Unresponsive episode - unclear etiology. Possibly vagal 2/2 irrigation. 4. ESRD - C/s Dr. Gonzales. 5. DM - continue insulin regimen and titrate to response. 6. MRDD w/ hx behavioral disturbance and narcissitic personality 7. HTN - stable DVT ppx: SCDs DC planning: Back to [facility] when stable. This patient was seen by Stef Graves PA-C under the supervision of Dr. Barton. <Mayco Barton - Last Filed: 04/20/18 16:08> History of Present Illness The patient is a 38 year old M [] Past Medical History Medical History: Medical History (Last Reviewed 04/03/18 @ 14:04 by Kaleigh Yeager) Problem with dialysis access (Acute) T82.898A hx of PICC Line (Acute) Strabismus (Chronic) H50.9 Disruptive Behavior Disorder (Chronic) Diabetic retinopathy (Chronic) E11.319 History of constipation (Chronic) Z87.19 Aspiration into airway (Suspected) T17.908A Wheezing (Acute) R06.2 Chronic kidney disease (Chronic) N18.9 Hyponatremia (Acute) E87.1 Ileus (Acute) K56.7 History of Suprapubic Cystostomy (Chronic) History of anxiety disorder (Chronic) Z86.59 Allergies No Known Allergies Allergy (Verified 04/20/18 10:37) Surgical History: Surgical History (Last Reviewed 04/03/18 @ 14:04 by Kaleigh Yeager) History of suprapubic catheter (Acute) Z98.890 Hx of exploratory laparotomy (Acute) Z98.890 History of esophagogastroduodenoscopy (EGD) (Acute) Z98.890 08/21/12 Hx of colonoscopy (Acute) Z98.890 08/21/12 and 12/04/14 (decompression for pseudoobstruction) Hx of arteriovenostomy for renal dialysis (Acute) Z99.2 transposition left upper arm cephalic vein to brachial artery arteriovenous fistula creation- 12/17/15 Right forearm Radial to cephalic AV fistula- 02/16/18 Hx of appendectomy (Acute) Z90.49 2000 - Physical Exam Vital Signs Temp Pulse Resp BP Pulse Ox 97.4 F L 92 14 121/67 H 100 04/20/18 10:14 04/20/18 15:35 04/20/18 15:35 04/20/18 15:35 04/20/18 15:35 Oxygen Flow Rate (L/min) 2 Oxygen Delivery Method Nasal Cannula Weight: 233 lb 11.04 oz Body Mass Index (BMI) 40.1 Finger Stick Blood Glucose 136 Laboratory Tests Past 24 Hrs WBC 7.7 RBC 3.59 L Hgb 11.1 L Hct 35.1 L MCV 97.8 H MCH 30.9 MCHC 31.6 L WBC RBC Hgb 10.0 L POC Glucose POC Glucose 136 H Code Visit Addendum: Dr. Barton I personally examined the patient and reviewed the chart. I agree with the above. 38-year-old male medical history including MRDD, disruptive behavior disorder, end-stage renal disease on dialysis, diabetic retinopathy, and a blind urethra necessitating a suprapubic catheter. He has a suprapubic catheter and for the last 2 days he has been having blood and blood clots coming out of the catheter. Dr. Lopze was called by the ER who was able to swap out catheters and recommends undergoing every hour irrigation by the nursing staff as he is afraid of damaging the bladder with continuous irrigation. In the ER he did have an episode of unresponsiveness however vital signs during the event appeared to be normal and he recovered in less than a minute and was back to normal. Unsure if this is of concern or if this was part of a behavioral disturbance either way we will continue to monitor closely. A CT scan was obtained in the ER which demonstrated ileus and what appeared to be blood clots in the bladder however he did manage to have a bowel movement today and denies any abdominal pain. He has had episodes of hematuria in the past and previously had been seen at [facility] for this issue. He is no longer on Eliquis for the DVT that occurred in August, he had an fistula placed in his right arm, because his left arm fistula had clotted off. We will consult nephrology for dialysis. OBSV E AND M: [id number] Initial observation care L3 04/20/18 1550 <Electronically signed by Stef BURNETTE> Date Stef BURNETTE 04/20/18 1608<Electronically signed by Mayco Barton MD> Cosigner Signature: Date (if applicable) Mayco Barton MD CC: VASILE Graves; Francine Clark MD; Mayco Barton MD Signed HH, HEMOGLOBIN AND Collected: 04/20/2018 Status: F Source: GREG HEMATOCRIT 3:35 PM [facility] REPOSITORY TYPE CODE TESTS RESULT OUT OF RANGE REFERENCE UNITS LAB L100.1300 13.0-16.5 g/dl Low HGB 10.0 LAB L100.1400 40-54 % Low HCT 31.0 Performed By: #### L100.0600 #### [facility] [address] [place], [place], [address] BEDSIDE GLUCOSE Collected: 04/20/2018 Status: F Source: GREG 3:09 PM [facility] REPOSITORY TYPE CODE TESTS RESULT OUT OF REFERENCE UNITS RANGE LAB L501.080 70-110 mg/dL High BEDSIDE GLU 136 Result Comment: MANAGEMENT OF PATIENT CARE PER NURSING PROTOCOL Performed By: #### L501.080 #### [facility] Point of Care [address] [place], [place] [address] CONSULTATION Observed: 04/20/2018 Status: F Source: GREG 1:45 PM [facility] REPOSITORY [facility] Medical Records Department [address] [place] [address] Consultation 04/20/18 1342 MR#: [id number] Acct: [id number] Name: JARON MORSE Rep #: [id number] : 1980 38 From: Jose Juan Lopez MD PCP: Francine Clark MD Status: REG ER Y Location: ED Problem List (1) Hematuria Status: Acute Qualifiers: Hematuria type: gross Qualified Code(s): R31.0 - Gross hematuria Reason for Consult Date of Consultation: 04/20/18 Reason for Consultation: Gross hematuria and suprapubic catheter History of Present Illness: The patient is a 38 year old male with multiple medical problems who is on chronic dialysis and he has a chronic suprapubic catheter on cystoscopy a few months ago was negative for any masses or tumors recently had some work on his AV fistula and then developed gross hematuria after this presented to the emergency room CAT scan was done demonstrated blood in the bladder no obvious masses, change catheter to the 20 [place] irrigated all the clots out and now he just has canseco red blood in the urine after irrigating his bladder. He is normal urethral channel scarred down. Past Medical History Past Medical History (Chronic Problems): Chronic Problems (Last Reviewed 04/03/18 @ 14:04 by Kaleigh Yeager) Strabismus (Chronic) Disruptive Behavior Disorder (Chronic) Diabetic retinopathy (Chronic) History of constipation (Chronic) Chronic kidney disease (Chronic) History of Suprapubic Cystostomy (Chronic) History of anxiety disorder (Chronic) Medical History: Medical History (Last Reviewed 04/03/18 @ 14:04 by Kaleigh Yeager) Problem with dialysis access (Acute) T82.898A hx of PICC Line (Acute) Strabismus (Chronic) H50.9 Disruptive Behavior Disorder (Chronic) Diabetic retinopathy (Chronic) E11.319 History of constipation (Chronic) Z87.19 Aspiration into airway (Suspected) T17.908A Wheezing (Acute) R06.2 Chronic kidney disease (Chronic) N18.9 Hyponatremia (Acute) E87.1 Ileus (Acute) K56.7 History of Suprapubic Cystostomy (Chronic) History of anxiety disorder (Chronic) Z86.59 Allergies No Known Allergies Allergy (Verified 04/20/18 10:37) Home Medications: Ambulatory Orders Medication Instructions Recorded Ascorbic Acid [Vitamin C] 1,000 mg PO DAILY 02/21/15 Surgical History: Surgical History (Last Reviewed 04/03/18 @ 14:04 by Kaleigh Yeager) History of suprapubic catheter (Acute) Z98.890 Hx of exploratory laparotomy (Acute) Z98.890 History of esophagogastroduodenoscopy (EGD) (Acute) Z98.890 08/21/12 Hx of colonoscopy (Acute) Z98.890 08/21/12 and 12/04/14 (decompression for pseudoobstruction) Hx of arteriovenostomy for renal dialysis (Acute) Z99.2 transposition left upper arm cephalic vein to brachial artery arteriovenous fistula creation- 12/17/15 Right forearm Radial to cephalic AV fistula- 02/16/18 Hx of appendectomy (Acute) Z90.49 2000 Surgical History: appendectomy, - Psychiatric History: - Smoking Status: Never smoker - *Family History Maternal History Items: No pertinent history Paternal History Items: No pertinent history Review of Systems Constitutional: Denies: Chills, Fever, Weight Change HEENT: Denies: Head Aches, Sinus Congestion, Sinus Drainage Cardiovascular: Denies: Chest Pain, Palpitations Respiratory: Denies: Cough, Shortness of breath at rest, Sputum production Gastrointestinal: Denies: Abdominal Pain, Nausea, Vomiting Genitourinary: Denies: Dysuria Musculoskeletal: Denies: Joint Pain, Joint Tenderness Skin: Denies: Rash, Wounds Neurological: Denies: Numbness, Tingling, Focal weakness Psychiatric: Denies: Anxiety, Depression, Homicidal Ideations, Suicidal Ideations Hematologic/ Lymphatic: Denies: Easy Bruising, Easy Bleeding Physical Exam - Physical Exam Vital Signs Temp 97.4 F L 04/20/18 10:14 Pulse 90 04/20/18 10:14 Resp 17 04/20/18 12:11 BP 141/92 H 04/20/18 10:14 Pulse Ox 94 04/20/18 10:14 Intake AND Output Weight: 106 kg General: Alert, Oriented x3 HEENT: Atraumatic Oral: Moist Mucosa Neck: Supple Lungs: Normal air movement Abdomen: Obese Rectal: Exam deferred - Suprapubic catheter changed to 20 Moroccan Laboratory Tests Past 24 Hrs WBC 7.7 RBC 3.59 L Hgb 11.1 L Hct 35.1 L MCV 97.8 H MCH 30.9 MCHC 31.6 L WBC RBC Hgb Hct MCV MCH MCHC RDW RDW Differential Plt Count MPV Immature Gran % (Auto) Neut % (Auto) Lymph % (Auto) Assessment/Plan All Active Problems (Last Reviewed 04/03/18 @ 14:04 by Kaleigh Yeager) Hematuria (Acute) Problem with dialysis access (Acute) History of suprapubic catheter (Acute) Hx of exploratory laparotomy (Acute) hx of PICC Line (Acute) History of esophagogastroduodenoscopy (EGD) (Acute) Hx of colonoscopy (Acute) Hx of arteriovenostomy for renal dialysis (Acute) Hx of appendectomy (Acute) Wheezing (Acute) Hyponatremia (Acute) Ileus (Acute) 38-year-old male with multiple medical problems with suprapubic catheter with chronic recommended to admit the patient for further medical management the nurses want to irrigate the catheter manually with 40 cc of normal saline every hour until we get the urine clear did not use continuous bladder irrigation for the high risk of bladder rupture continue with manual irrigation until the urine clears up. Call with questions 04/20/18 2642 <Electronically signed by Jose Juan Lopez MD> Date Jose Juan Lopez MD Cosigner Signature (if applicable): Date CC: Francine Clark MD Signed URINALYSIS, COMPLETE Collected: 04/20/2018 Status: F Source: GREG 12:21 PM [facility] REPOSITORY Order Comment: Order Date: 04/20/18 COLOR OF URINE MAY AFFECT DIPSTICK RESULTS. How was Urine Obtained? CLEAN CATCH TYPE CODE TESTS RESULT OUT OF RANGE REFERENCE UNITS LAB L400.3000 Yellow COLOR Normal Red LAB L400.3050 Clear Normal CLARITY Turbid LAB L400.3200 Normal mg/dl Normal GLUCOSE, UR Normal LAB L400.3300 Negative mg/dL Normal BILIRUBIN URINE Negative LAB L400.3400 Negative mg/dl High 5 KETONE UR LAB L400.3465 1.002-1.030 Normal SP.GR. DIPSTX 1.010 LAB L400.3550 5.0 - 8.0 pH UR Normal 7.0 LAB L400.3600 Negative mg/dl High PROT DIPSTX 500 LAB L400.3700 Normal mg/dl Normal UROBILI Normal LAB L400.3750 Negative Normal NITRITE UR Negative LAB L400.3780 Negative /ul High OCCULT BLOOD-UR 250 LAB L400.3800 Negative /ul LEUK Normal ESTERASE Negative LAB L400.4050 0-5 /hpf WBC Normal 10-25 SEEN LAB L400.4100 0-5 /hpf > Normal RBC-UA 100 SEEN LAB L400.4150 0-5 /hpf SQUAM 0 Normal EPI SEEN LAB L400.4300 None Seen /hpf 0 Normal BACTERIA SEEN LAB L400.4350 <or=2+ /hpf 0 Normal MUCUS, URINE SEEN Performed By: #### L400.0001 #### [facility] [address] [place], [place], [address] Observed: 04/20/2018 Status: F Source: BARTOW CULTURE, URINE 12:21 PM [facility] REPOSITORY Order Date: 04/20/18 Urine Culture ORGANISM 1: Meth. resistant Staph. aureus [place] Count 1000-10,000 ORGANISM 2: Enterococcus faecalis [place] Count 1000-10,000 ORGANISM 3: Serratia marcescens [place] Count 1000-10,000 Meth. resistant Staph. aureus: REACTION Benzylpenicillin NF >=0.5 R Cefoxitin *NF + Inducable Clindamycin [place] - Gentamicin $ <=0.5 S Levofloxacin $ 0.5 S Linezolid $$$$ 2 S Nitrofurantoin $ 32 S Oxacillin NF >=4 R Rifampin $$ <=0.5 S Tetracycline NF <=1 S Trimethoprim/Sulfametho $ <=10 S Vancomycin $ <=0.5 S (NF) indicates non-formulary drug at [facility]. Approval by Infectious Disease Specialist required before non-formulary drugs may be ordered and/or dispensed. * CLSI guidelines does not recommend testing of cephalosporins. This interpretation is deduced from Beta-lactam/penicillin results. Enterococcus faecalis: REACTION Ampicillin $ <=2 S Benzylpenicillin NF 8 S Ciprofloxacin $ >=8 R Gentamicin SYN-R R Levofloxacin $ >=8 R Linezolid $$$$ 2 S Nitrofurantoin $ 32 S Streptomycin $ SYN-R R Tetracycline NF >=16 R Vancomycin $ 1 S (NF) indicates non-formulary drug at [facility]. Approval by Infectious Disease Specialist required before non-formulary drugs may be ordered and/or dispensed. * CLSI guidelines does not recommend testing of cephalosporins. This interpretation is deduced from Beta-lactam/penicillin results. Serratia marcescens: REACTION Amoxacillin/Clavulanic Acid $ >=32 R Cefazolin $ >=64 R Cefepime $ <=1 S Ceftriaxone $ <=1 S Ciprofloxacin $ <=0.25 S Ertapenim $$$ <=0.5 S Gentamicin $ <=1 S Levofloxacin $ <=0.12 S Nitrofurantoin $ 128 R Tobramycin $ <=1 S Trimethoprim/Sulfametho $ <=20 S (NF) indicates non-formulary drug at [facility]. Approval by Infectious Disease Specialist required before non-formulary drugs may be ordered and/or dispensed. Performed By: #### M100.0650 #### [facility] [place], [address] CBC W/DIFF, AUTOMATED Collected: 04/20/2018 Status: F Source: BARTOW 10:58 AM [facility] REPOSITORY TYPE CODE TESTS RESULT OUT OF RANGE REFERENCE UNITS LAB L100.1000 4.4-11.0 K/mm3 Normal WBC 7.7 LAB L100.1200 4.6-6.2 M/mm3 Low RBC 3.59 LAB L100.1300 13.0-16.5 g/dl Low HGB 11.1 LAB L100.1400 40-54 % Low HCT 35.1 LAB L100.1500 80-94 fL High MCV 97.8 LAB L100.1600 27.0-32.0 pg Normal MCH 30.9 LAB L100.1700 32-36 g/gl Low MCHC 31.6 LAB L100.1810 11.6-14.6 % Normal RDW CV 12.8 LAB L100.1820 35.1-43.9 fl High RDW SD 46.3 LAB L100.1900 150-450 K/mm3 Normal PLT 189 LAB L100.2000 6.2-12.0 fl Normal MPV 10.9 LAB L100.2100 47-70 % Normal NEUT% 68.3 LAB L100.2200 19-41 % Low LY% 18.8 LAB L100.2300 0-10 % High MONO% 10.8 LAB L100.2400 0-5 % Normal EO% 1.9 LAB L100.2500 0-1 % Normal BASO% 0.1 LAB L100.2550 0.0-0.9 % Normal IM GRAN % 0.100 Result Comment: IG% - Immature Granulocytes (promyelocytes, myelocytes and metamyelocytes) > 1% indicates that a LEFT SHIFT is Present. LAB L100.2620 2.0-7.7 X10 3/uL Normal Absolute Neut 5.3 LAB L100.2720 0.83-4.51 X10 3/ul Normal Absolute Lymph 1.45 Performed By: #### L100.0100 #### [facility] [address] [place], [address] PROTHROMBIN TIME W/INR Collected: 04/20/2018 Status: F Source: BARTOW 10:58 AM [facility] REPOSITORY TYPE CODE TESTS RESULT OUT OF RANGE REFERENCE UNITS LAB L300.4150 11.7-14.9 SECONDS Normal PROTIME 13.2 LAB L300.4200 Normal INR 1.0 Performed By: #### L300.3900, L300.4310 #### [facility] [address] [place], [place], [id number] PARTIAL THROMBOPLAST Collected: 04/20/2018 Status: F Source: BARTOW TIME 10:58 AM [facility] REPOSITORY TYPE CODE TESTS RESULT OUT OF RANGE REFERENCE UNITS LAB L300.4310 24.1-36.2 Seconds Normal PTT 33.9 Performed By: #### L300.3900, L300.4310 #### [facility] [address] [facility] [place], [address] COMPREHENSIVE METABOLIC Collected: 04/20/2018 Status: F Source: GREG GABRIEL 10:58 AM [facility] REPOSITORY TYPE CODE TESTS RESULT OUT OF RANGE REFERENCE UNITS LAB L501.0100 74-106 mg/dL High GLU 173 Result Comment: Fasting Glucose result greater than or equal to 126 mg/dL suggests DIABETES MELLITUS per A.D.A. criteria. Please note revised GLUCOSE reference range effective 2017. LAB L501.1000 7-18 mg/dL High BUN 81 LAB L501.1100 0.70-1.30 mg/dL High CREAT,SERUM 4.40 Result Comment: The validity of the calculated GFR AND GFRAA in patients over 70 years has not been determined. Clinical correlation is essential. LAB L501.1110 >60 mL/min Low EST GFR 16 Result Comment: Non- GFR Calc LAB L501.1115 >60 mL/min Low EST GFR - AA 20 Result Comment: GFR Calc LAB L501.1255 ml/min Normal Estimated CRCL 19.43 LAB L501.1300 10-20 RATIO Normal BUN/CRE 18.4 LAB L501.1500 6.4-8. g/dL Normal 2 T PROT 7.7 LAB L501.1800 3.2-5. g/dL Normal 0 ALB 3.5 LAB L501.1950 2.2-4. g/dL Normal 2 GLOB 4.2 LAB L501.2000 0.9-2. RATIO Low 4 A/G 0.8 LAB L501.2200 8.5-10 mg/dL Normal .1 CA 8.6 LAB L501.4100 15-37 U/L Normal AST 15 LAB L501.4305 45-117 U/L Normal ALK P 117 LAB L501.4405 16-61 U/L Normal ALT 23 LAB L501.4600 0.20-1 mg/dL Normal .00 T BILI 0.30 LAB L501.5300 136-14 mmol/L Normal 5 NA 138 LAB L501.5600 3.5-5. mmol/L Normal 1 K 4.9 LAB L501.5900 98-107 mmol/L Normal CL 101 LAB L501.6100 21.0-3 mmol/L Normal 2.0 CO2 29.0 LAB L501.6200 5-15 Normal GAP 8 Performed By: #### L500.4050 #### [facility] [address] [place], [address] LACTIC ACID Collected: 04/20/2018 Status: F Source: GREG 10:58 AM [facility] [facility] Order Comment: Yes/No query for Sepsis Lactate Rule Y TYPE CODE TESTS RESULT OUT OF RANGE REFERENCE UNITS LAB L503.6005 0.4-2.0 mmol/L Normal LACTIC ACID 0.9 Performed By: #### L503.6005 #### [facility] [address], [address] ABDOMEN/PELVIS WITHOUT Observed: 04/20/2018 Status: F Source: GREG CONT 10:34 AM [facility] REPOSITORY [facility] Imaging Services [address] [place] [address] Abdomen/Pelvis without Cont MR#: [id number] Acct: [id number] Name: JARON MORSE Rep #: [id number] : 1980 M 38 From: Fernando Cortés MD PCP: Francine Clark MD Status: REG ER Study: Abdomen/Pelvis without Cont Date of Exam: 04/20/18 Exam# [id number] Ordering Dr: Harshad Patel MD STUDY: CT ABDOMEN AND PELVIS WITHOUT CONTRAST REASON FOR EXAM: Male, 38 years old. Hematuria RADIATION DOSAGE (If Supplied By Facility): CTDIvol = ( 21.43 ) mGy, DLP = ( 1167.19 ) mGycm TECHNIQUE: Transaxial images were obtained from the dome of the diaphragm to the symphysis pubis without oral contrast, and without intravenous contrast. Sagittal and coronal images were reconstructed. Individualized dose optimization techniques were used for this CT. COMPARISON: 11/30/2017 FINDINGS: There are chronic interstitial fibrotic changes of the lung bases. The visualized portions of the heart are within normal limits. Normal liver. Normal gallbladder and extrahepatic biliary system. Normal spleen. Normal pancreas. Normal bilateral adrenal glands. Stable bilateral nephrocalcinosis and renal atrophy. Normal visualized stomach. Multiple nondistended fluid-filled small bowel loops are noted consistent with ileus. Retained stool noted throughout the colon There is non-visualization of the appendix. Normal abdominal aorta. Normal inferior vena cava. Normal retroperitoneum. There is a suprapubic catheter within the bladder which contains dense debris this likely represents either inflammation or mass lesion. There is an outpouching of the diastasis between the rectus musculature containing bowel loops but there is no evidence of inflammation, obstruction or ileus. Normal osseous structures. CT/Abdomen/Pelvis without Cont IMPRESSION: Bladder contains a suprapubic catheter and also significant heterogeneous debris. Findings suggest inflammation or mass lesion. Stable bilateral nephrocalcinosis and renal atrophy Small bowel ileus Retained stool throughout the colon Degenerative bony changes Electronically Signed: Tyrel Cortés MD at 12:41 EDT , Service support , CC: Francine Clark MD; Harshad Patel MD Cryogenic Transport Driver: Signed DISCHARGE INSTRUCTION Observed: 04/19/2018 Status: F Source: BARTOW 6:20 AM [facility] REPOSITORY [facility] Medical Records Department [address] [place] [address] Instructions for Home/Discharge Instructions 04/18/18 1442 MR#: [id number] Acct: [id number] Name: JARON MORSE Rep #: [id number] : 1980 38 From: Hugh Abreu MD PCP: Francine Clark MD Status: DEP [facility] Discharge Diet: Renal Diet Discharge Activity: May Not Shower Lifting Restrictions: 5 pounds Keep extremity elevated above heart level: - - Keep arm elevated above the heart level for 3 days. Additional Activity Instructions:: Exercise hand vigorously with a stress ball. Call your doctor if your incision/area has: Continuous Slow Oozing, Sudden Increased Bleeding - apply pressure and call your doctor., Increased Pain/ Swelling, Increased Redness, Foul Smelling Discharge Call your doctor if you observe: Fever of 101 or Higher Suture Line Care: Avoid Pulling/Pushing, Avoid Pinching/Bending Cleanse incision/area with: Keep Dressing Clean AND Dry Additional Dressing/Incision Instructions:: Please let elevate your right arm for comfort and to limit swelling. Leave the Sydnee wrap dressing on for 2 days. You may then remove the Sydnee wrap and soft roll dressing. Leave the Steri-Strips on for an additional week. Keep the incision clean and dry Allergies/Adverse Reactions: Allergies No Known Allergies Allergy (Verified 04/09/18 14:17) Medications to take at Discharge Ascorbic Acid [Vitamin C] 1,000 mg PO DAILY 02/21/15 Aspirin [Aspirin, Baby] 81 mg PO DAILY 02/21/15 Fluoxetine [Prozac] 30 mg PO DAILY 02/21/15 Quetiapine Fumarate [Seroquel] 100 mg PO 1700 02/21/15 Quetiapine Fumarate [Seroquel] 200 mg PO BID 02/21/15 Loratadine [Claritin] 10 mg PO DAILY 07/08/15 Melatonin 3 mg PO QHS 12/09/15 Insulin Lispro [Humalog Kwikpen] 4 unit SQ LUNCH 08/29/16 Atorvastatin Calcium 5 mg PO QHS 11/07/16 Pantoprazole Sodium [Protonix] 40 mg PO DAILY 11/07/16 Sennosides [Senna] 8.6 mg PO BID 12/29/16 Metoprolol Tartrate 12.5 mg PO BID 05/20/17 Oxybutynin [Ditropan] 5 mg PO DAILY PRN 05/20/17 Fluticasone Propionate [Flovent Diskus] 2 spray NARES DAILY 11/30/17 Olopatadine HCl [Pazeo] 1 drp EACH EYE DAILY 11/30/17 acetaminophen 325 mg tablet 650 mg PO Q8H PRN tab 12/13/17 albuterol sulfate HFA 90 mcg/actuation aerosol inhaler 2 puff INHALATION Q4H PRN 12/13/17 ketoconazole 2 % shampoo 1 applic TOPICAL Q2W PRN 12/13/17 Insulin Lispro [Humalog] 8 unit SQ BREAKFAST 12/24/17 Insulin Lispro [Humalog] 8 unit SQ DINNER 12/24/17 Cholecalciferol (Vitamin D3) [Vitamin D3] 5,000 unit PO DAILY 01/09/18 Ferrous Sulfate [Iron] 2 tab PO DAILY 01/09/18 Insulin Glargine [Lantus SoloStar Pen] 10 units SC QHS 02/09/18 Insulin Glargine,Hum.rec.anlog [Lantus Solostar] 14 unit SQ DAILY 02/09/18 Polyethylene Glycol 3350 [Miralax] 17 gm PO BID 02/09/18 Hydrocodone Bitart/Apap 5-325 [[place] 5/325] 1 tab PO Q6H PRN PRN 3 Days #5 tab 04/18/18 The following prescriptions were given: Hydrocodone Bitart/Apap 5-325 [[place] 5/325] 1 tab PO Q6H PRN PRN 3 Days #5 tab PRN Reason: Pain Primary Care Physician: Francine Clark MD [Primary Care Provider] - Test Results: Test results from this visit will be discussed in further detail at your follow-up appointment, if applicable. Please Follow Up With: Hugh Abreu MD - [phone] When: Call to make an appointment for suture removal and follow up in 7-10 days. 04/19/18 0620 <Electronically signed by Hugh Abreu MD> Date Hugh Abreu MD CC: Francine Clark MD OPERATIVE REPORT Observed: 04/19/2018 Status: F Source: BARTOW 6:20 AM [facility] REPOSITORY [facility] Medical Records Department [address] [place] [address] Operative Report 04/18/18 1445 MR#: [id number] Acct: [id number] Name: JARON MORSE Rep #: [id number] : 1980 38 From: Hugh Abreu MD PCP: Francine Clark MD Status: [facility] Y Location: [facility] Problem List (1) Problem with dialysis access Status: Acute Qualifiers: Encounter type: subsequent encounter Report of Operation Date of Procedure: 04/18/18 Pre-Operative Diagnosis: Problem with dialysis access Post-Operative Diagnosis: Same Surgery/Procedure Performed:: Stage II transposition right forearm cephalic vein to radial artery arteriovenous fistula creation Description of Surgical Findings:: Timeout and informed consent was obtained. A 8-year-old gent was taken the operating room. He was placed on the table. He underwent monitored anesthesia care. At the procedure 23 cc of 0.5% lidocaine and 3 cc of 1% lidocaine mixed 50-50 with 0.5% Marcaine was used as local anesthetic. Local was instilled close to the right wrist at the site of the previous radiocephalic AV fistula. Then tediously a longitudinal incision was made up the right forearm. The vein was tediously dissected free. Side branches were secured with interrupted 4-0 Vicryl ligatures. Hemoclips were used where indicated. The vein was dissected free to the antecubital space. Then the vein was marked. Distally the skin flap was slightly raised to gain access to the radial artery. It was circumferentially dissected free to help elevate the radial artery. Then a subcutaneous tunnel medial to the harvest site was created and a tunnel was placed from the wrist to the antecubital space. The vein was ligated distally with a 0 silk ligature. Due to the inflammatory changes I was not able to dissect that completely to the previous radial artery anastomosis. I then placed the vein through the tunnel using the tunneler. The patient received 10,000 units of heparin. The vein was spatulated. The bulldog clamps were placed on the radial artery and 11 blade was used to enter an arteriotomy which was extended with [place] scissors. A end-to-side venous to arterial anastomosis created with running 7-0 Prolene. At the completion of there is good flow through the fistula and seemingly good positional alignment. Hemostasis obtained with electrocautery. A total of 30 mg of protamine was given his reversal. The wound was closed in layers with multiple interrupted 3-0 Vicryl sutures and then a running septic or 4-0 Monocryl. Steri-Strips Telfa soft roll Sydnee wrap applied. Sponge and instrument and needle counts were reported to the surgeon to be correct. Blood loss approximately 300 cc. He tolerated the procedure well and he was taken to the recovery area in satisfactory condition without apparent complication. Specimens none. Drains none. Blood loss approximately 300 cc. Hugh Abreu M.D., F.A.C.S. Type of Anesthesia:: Local MAC Anesthesiologist: Veronica Majano 04/19/18 0620 <Electronically signed by Hugh Abreu MD> Date Hugh Abreu MD CC: Francine Clark MD; Hugh Abreu MD Signed CBC-COMPLETE BLOOD CNT Collected: 04/18/2018 Status: F Source: GREG NO DIFF 9:45 AM [facility] REPOSITORY TYPE CODE TESTS RESULT OUT OF RANGE REFERENCE UNITS LAB L100.1000 4.4-11.0 K/mm3 Normal WBC 8.2 LAB L100.1200 4.6-6.2 M/mm3 Low RBC 4.21 LAB L100.1300 13.0-16.5 g/dl Normal HGB 13.2 LAB L100.1400 40-54 % Normal HCT 41.1 LAB L100.1500 80-94 fL High MCV 97.6 LAB L100.1600 27.0-32.0 pg Normal MCH 31.4 LAB L100.1700 32-36 g/gl Normal MCHC 32.1 LAB L100.1810 11.6-14.6 % Normal RDW CV 13.0 LAB L100.1820 35.1-43.9 fl High RDW SD 46.7 LAB L100.1900 150-450 K/mm3 Normal PLT 175 LAB L100.2000 6.2-12.0 fl Normal MPV 10.8 Performed By: #### L100.0500, L500.2500 #### [facility] [address] [place], [address] BASIC METABOLIC Collected: 04/18/2018 Status: F Source: GREG PROFILE (BMP) 9:45 AM [facility] REPOSITORY TYPE CODE TESTS RESULT OUT OF RANGE REFERENCE UNITS LAB L501.0100 74-106 mg/dL High GLU 226 Result Comment: Glucose result greater than or equal to 200 mg/dL suggests DIABETES MELLITUS per A.D.A. criteria. Please note revised GLUCOSE reference range effective 2017. LAB L501.1000 7-18 mg/dL High BUN 67 LAB L501.1100 0.70-1.30 mg/dL High CREAT,SERUM 4.00 Result Comment: The validity of the calculated GFR AND GFRAA in patients over 70 years has not been determined. Clinical correlation is essential. LAB L501.1110 >60 mL/min Low EST GFR 18 Result Comment: Non- GFR Calc LAB L501.1115 >60 mL/min Low EST GFR - AA 22 Result Comment: GFR Calc LAB L501.1300 10-20 RATIO Normal BUN/CRE 16.8 LAB L501.2200 8.5-10.1 mg/dL Low CA 8.4 LAB L501.5300 136-145 mmol/L NA Normal 137 LAB L501.5600 3.5-5.1 mmol/L K Normal 5.1 LAB L501.5900 98-107 mmol/L CL Normal 104 LAB L501.6100 21.0-32.0 mmol/L Normal CO2 26.0 LAB L501.6200 5-15 Normal GAP 7 Performed By: #### L100.0500, L500.2500 #### [facility] [address] [place], [address] SURGERY VISIT REPORT Observed: 04/03/2018 Status: F Source: BARTOW 4:07 PM [facility] REPOSITORY [facility] [address] [place] [address] OFFICE VISIT Date of Service: 04/03/18 MR#: [id number] Acct: [id number] Name: MINIJARON D Rep #: [id number] : 1980 Provider: Taylor Owens PA-C Age/Sex: 38/M Location: [facility] Status: Signed Intake Vital Signs04/03/18 Height 5 ft 4.5 in 04/03/18 Weight: 228 lb Intake Visit Reasons: 3 wk fu Fistula Creation 02/16 Cyber Incident Analyst Required: No Is patient in pain?: No Allergies No Known Allergies Allergy (Verified 04/03/18 13:40) Medications Ascorbic Acid [Vitamin C] 1,000 mg PO DAILY 02/21/15 [History Confirmed 04/03/18] Aspirin [Aspirin, Baby] 81 mg PO DAILY 02/21/15 [History Confirmed 04/03/18] Fluoxetine [Prozac] 30 mg PO DAILY 02/21/15 [History Confirmed 04/03/18] Quetiapine Fumarate [Seroquel] 100 mg PO 1700 02/21/15 [History Confirmed 04/03/18] Quetiapine Fumarate [Seroquel] 200 mg PO BID 02/21/15 [History Confirmed 04/03/18] Loratadine [Claritin] 10 mg PO DAILY 07/08/15 [History Confirmed 04/03/18] Melatonin 3 mg PO QHS 12/09/15 [History Confirmed 04/03/18] Insulin Lispro [Humalog Kwikpen] 4 unit SQ LUNCH 08/29/16 [History Confirmed 04/03/18] Atorvastatin Calcium 5 mg PO QHS 11/07/16 [History Confirmed 04/03/18] Pantoprazole Sodium [Protonix] 40 mg PO DAILY 11/07/16 [History Confirmed 04/03/18] Sennosides [Senna] 8.6 mg PO BID 12/29/16 [History Confirmed 04/03/18] Metoprolol Tartrate 12.5 mg PO BID 05/20/17 [History Confirmed 04/03/18] Oxybutynin [Ditropan] 5 mg PO DAILY PRN 05/20/17 [History Confirmed 04/03/18] Fluticasone Propionate [Flovent Diskus] 2 spray NARES DAILY 11/30/17 [History Confirmed 04/03/18] Olopatadine HCl [Pazeo] 1 drp EACH EYE DAILY 11/30/17 [History Confirmed 04/03/18] acetaminophen 325 mg tablet 650 mg PO Q8H PRN tab 12/13/17 [History Confirmed 04/03/18] albuterol sulfate HFA 90 mcg/actuation aerosol inhaler 2 puff INHALATION Q4H PRN 12/13/17 [History Confirmed 04/03/18] ketoconazole 2 % shampoo 1 applic TOPICAL Q2W PRN 12/13/17 [History Confirmed 04/03/18] Insulin Lispro [Humalog] 8 unit SQ BREAKFAST 12/24/17 [History Confirmed 04/03/18] Insulin Lispro [Humalog] 8 unit SQ DINNER 12/24/17 [History Confirmed 04/03/18] Cholecalciferol (Vitamin D3) [Vitamin D3] 5,000 unit PO DAILY 01/09/18 [History Confirmed 04/03/18] Ferrous Sulfate [Iron] 2 tab PO DAILY 01/09/18 [History Confirmed 04/03/18] Insulin Glargine [Lantus (BKC)] 10 units SC QHS 02/09/18 [History Confirmed 04/03/18] Insulin Glargine,Hum.rec.anlog [Lantus Solostar] 14 unit SQ DAILY 02/09/18 [History Confirmed 04/03/18] Polyethylene Glycol 3350 [Miralax] 17 gm PO BID 02/09/18 [History Confirmed 04/03/18] Hydrocodone Bitart/Apap 5-325 [[place] 5MG-325MG] 1 tab PO Q6H PRN PRN 3 Days #5 tab 02/16/18 [Rx Confirmed 04/03/18] PFSH Medical History Problem with dialysis access (Acute) hx of PICC Line (Acute) Strabismus (Chronic) Disruptive Behavior Disorder (Chronic) Diabetic retinopathy (Chronic) History of constipation (Chronic) Aspiration into airway (Suspected) Wheezing (Acute) Chronic kidney disease (Chronic) Hyponatremia (Acute) Ileus (Acute) History of Suprapubic Cystostomy (Chronic) History of anxiety disorder (Chronic) Surgical History History of suprapubic catheter (Acute) Hx of exploratory laparotomy (Acute) History of esophagogastroduodenoscopy (EGD) (Acute) Hx of colonoscopy (Acute) Hx of arteriovenostomy for renal dialysis (Acute) Hx of appendectomy (Acute) Social History Smoking Status: Never smoker second hand exposure: No alcohol intake: never substance use type: does not use caffeine: Yes what type of physical activity do you participate in: none frequency: does not exercise seatbelt use: always HPI HPI HPI: Patient is a 38 y/o male I am following for stage IV renal failure. Dr. Abreu performed a stage I forearm radial to cephalic arteriovenous fistula creation on 02/16/18. Patient tolerated the procedure well. He notes burning sensation near the incision. He denies numbness/tingling. He is not currently on dialysis. Dr. Ovalles is his weblogic administrator. Patient returns today for a follow-up. He denies pain/discomfort. He denies being on dialysis any time soon. ROS General General: Yes fatigue; no weight change, appetite, colon cancer, breast cancer or weakness HEENT HEENT: Yes difficulty swallowing; no eye injury, eye surgery, swollen glands or hoarseness Endo Endocrine: Yes diabetes mellitus; no thyroid disease, thyroid cancer, Hair loss, heat intolerance or cold intolerance Skin Skin: No rash or changing moles Breast Breast: No left breast lump, right breast lump, nipple discharge, breast pain, abnormal mammogram, abnormal US or breast enlargement Musc Musculoskeletal: Yes back problems; no arthritis, rheumatoid arthritis, gout or joint pain Cardio Cardiovascular: Yes high blood pressure; no murmur, pacemaker, heart disease, atrial fibrillation, heart attack, heart stent, palpitations, shortness of breat with exertion or chest pain Psych Psychiatric: No depression, anxiety or hearing voices Gastro Gastrointestinal: Yes acid reflux, No abdominal pain, No nausea or vomiting, No diarrhea, No constipation, No blood in stool, No hemorrhoids, No ulcers, No gallbladder problem, No black,tarry stools Nathaniel Hematologic: Yes blood thinners, No blood disorders, No bleeding, Yes anemia, Yes blood clots Neuro Neurologic: No weakness Exam Const General: cooperative, healthy appearing, comfortable, no acute distress [facility] Head: normal to inspection Eyes General: appearance normal, both eyes and all related structures Neck Neck mass: No Chest Breast Palpation: No nipple discharge Resp Effort AND Inspection: normal respiratory effort Auscultation: clear to auscultation bilaterally Cardio Rate: regular rate Rhythm: regular rhythm Heart Sounds: no murmurs GI Inspection: normal to inspection Palpation: soft Auscultation: normal bowel sounds Skin General: no rashes or lesions noted Neuro General: no focal motor deficits, CN's II-XI intact bilaterally Extrem Other: Right forearm AV fistula- good pulse, bruit and thrill Psych Appearance: grossly normal Assessment AND Plan Problems 1. Chronic renal disease, stage IV N18.[address] Abreu will plan to perform a stage II transposition of the right forearm arteriovenous fistula. Procedure details, risks and benefits have been explained to the patient. Patient may continue on his daily aspirin. Coding Level of Care Code Global Post Op Diagnoses Chronic renal disease, stage IV N18.4 04/03/18 1607 <Electronically signed by Taylor Owens PA-C> Date Taylor Owens PA-C Cosigner Signature: Date (if applicable) CC: Deanne Ovalles DO; Hugh Abreu MD BASIC METABOLIC Collected: 03/08/2018 Status: F Source: [facility] PROFILE ([facility]) 8:13 AM [facility] REPOSITORY TYPE CODE TESTS RESULT OUT OF RANGE REFERENCE UNITS LAB L501.0100 74-106 mg/dL High GLU 139 Result Comment: Fasting Glucose result greater than or equal to 126 mg/dL suggests DIABETES MELLITUS per A.D.A. criteria. Please note revised GLUCOSE reference range effective 2017. LAB L501.1000 7-18 mg/dL High BUN 49 LAB L501.1100 0.70-1.30 mg/dL High CREAT,SERUM 4.13 Result Comment: The validity of the calculated GFR AND GFRAA in patients over 70 years has not been determined. Clinical correlation is essential. LAB L501.1110 >60 mL/min Low EST GFR 18 Result Comment: Non- GFR Calc LAB L501.1115 >60 mL/min Low EST GFR - AA 21 Result Comment: GFR Calc LAB L501.1300 10-20 RATIO Normal BUN/CRE 11.9 LAB L501.2200 8.5-10.1 mg/dL Low CA 8.2 LAB L501.5300 136-145 mmol/L NA Normal 138 LAB L501.5600 3.5-5.1 mmol/L High K 5.7 LAB L501.5900 98-107 mmol/L CL Normal 105 LAB L501.6100 21.0-32.0 mmol/L Normal CO2 21.0 LAB L501.6200 5-15 Normal GAP 12 Performed By: #### L500.2500 #### [facility] [place], [address] SURGERY VISIT REPORT Observed: 03/07/2018 Status: F Source: GREG 1:11 PM [facility] REPOSITORY [facility] [address] [place] [address] OFFICE VISIT Date of Service: 03/07/18 MR#: [id number] Acct: [id number] Name: JARON MORSE Rep #: [id number] : 1980 Provider: Taylor Owens PA-C Age/Sex: 38/M Location: [facility] Status: Signed Intake Intake Visit Reasons: Fistula Creation RC 02/16 Cyber Incident Analyst Required: No Is patient in pain?: No Allergies No Known Allergies Allergy (Verified 03/07/18 12:55) Medications Ascorbic Acid [Vitamin C] 1,000 mg PO DAILY 02/21/15 [History Confirmed 03/07/18] Aspirin [Aspirin, Baby] 81 mg PO DAILY 02/21/15 [History Confirmed 03/07/18] Fluoxetine [Prozac] 30 mg PO DAILY 02/21/15 [History Confirmed 03/07/18] Quetiapine Fumarate [Seroquel] 100 mg PO 1700 02/21/15 [History Confirmed 03/07/18] Quetiapine Fumarate [Seroquel] 200 mg PO BID 02/21/15 [History Confirmed 03/07/18] Loratadine [Claritin] 10 mg PO DAILY 07/08/15 [History Confirmed 03/07/18] Melatonin 3 mg PO QHS 12/09/15 [History Confirmed 03/07/18] Insulin Lispro [Humalog Kwikpen] 4 unit SQ LUNCH 08/29/16 [History Confirmed 03/07/18] Atorvastatin Calcium 5 mg PO QHS 11/07/16 [History Confirmed 03/07/18] Pantoprazole Sodium [Protonix] 40 mg PO DAILY 11/07/16 [History Confirmed 03/07/18] Sennosides [Senna] 8.6 mg PO BID 12/29/16 [History Confirmed 03/07/18] Metoprolol Tartrate 12.5 mg PO BID 05/20/17 [History Confirmed 03/07/18] Oxybutynin [Ditropan] 5 mg PO DAILY PRN 05/20/17 [History Confirmed 03/07/18] Fluticasone Propionate [Flovent Diskus] 2 spray NARES DAILY 11/30/17 [History Confirmed 03/07/18] Olopatadine HCl [Pazeo] 1 drp EACH EYE DAILY 11/30/17 [History Confirmed 03/07/18] acetaminophen 325 mg tablet 650 mg PO Q8H PRN tab 12/13/17 [History Confirmed 03/07/18] albuterol sulfate HFA 90 mcg/actuation aerosol inhaler 2 puff INHALATION Q4H PRN 12/13/17 [History Confirmed 03/07/18] ketoconazole 2 % shampoo 1 applic TOPICAL Q2W PRN 12/13/17 [History Confirmed 03/07/18] Insulin Lispro [Humalog] 8 unit SQ BREAKFAST 12/24/17 [History Confirmed 03/07/18] Insulin Lispro [Humalog] 8 unit SQ DINNER 12/24/17 [History Confirmed 03/07/18] Cholecalciferol (Vitamin D3) [Vitamin D3] 5,000 unit PO DAILY 01/09/18 [History Confirmed 03/07/18] Ferrous Sulfate [Iron] 2 tab PO DAILY 01/09/18 [History Confirmed 03/07/18] Insulin Glargine [Lantus (BKC)] 10 units SC QHS 02/09/18 [History Confirmed 03/07/18] Insulin Glargine,Hum.rec.anlog [Lantus Solostar] 14 unit SQ DAILY 02/09/18 [History Confirmed 03/07/18] Polyethylene Glycol 3350 [Miralax] 17 gm PO BID 02/09/18 [History Confirmed 03/07/18] Hydrocodone Bitart/Apap 5-325 [[place] 5MG-325MG] 1 tab PO Q6H PRN PRN 3 Days #5 tab 02/16/18 [Rx Confirmed 03/07/18] Subjective Details: Patient is a 38 y/o male I am following for stage IV renal failure. Dr. Abreu performed a stage I forearm radial to cephalic arteriovenous fistula creation on 02/16/18. Patient tolerated the procedure well. He notes burning sensation near the incision. He denies numbness/tingling. He is not currently on dialysis. Dr. Ovalles is his weblogic administrator. Patient returns today for a follow-up. He denies pain/discomfort. He will be evaluated by Dr. Gonzales next week. Objective Details: Right forearm AV fistula- incision c/d/i. No erythema or infection noted. Good pulse, bruit and thrill. Hand is warm. Customer Development Manager strength is good. Assessment AND Plan Problems 1. Stage 4 chronic kidney disease N18.4 Plan - Continue hand exercises 20 times per hour - Will discuss with Dr. Abreu to see if stage II transposition is needed - Follow-up in 3 weeks Coding Level of Care Code Global Post Op Diagnoses Stage 4 chronic kidney disease N18.4 03/07/18 1311 <Electronically signed by Taylor Owens PA-C> Date Taylor Owens PA-C Cosigner Signature: Date (if applicable) CC: PROGRESS Observed: 03/05/2018 Status: COMPLETED Source: [place] 2:11 PM [facility] [place] REPOSITORY [facility] ID: [id number] Author: Luis Feliciano Service: (none) Author Type: Physician Type: Progress Notes Filed: 04/15/2018 7:52 PM Note Text: Last Visit: December 12, 2017 Reason for Follow up: DM Type 1 HISTORY OF PRESENT ILLNESS; Mr. Morse is a 38 year old gentleman came for follow up visit regarding DM Type 1. He was initially diagnosed with diabetes since at age 8. He does have a family history of diabetes mellitus in his Mother. The patient reports the following microvascular complications: nephropathy. Jaron has no know macrovascular complications of diabetes. He has been on insulin since the diagnosis. His current diabetes regimen is . Regarding symptoms of hyperglycemia, he is is experiencing vision changes, polyuria, polydipsia and has urinary beg. Has suprapubic catheter. November 26, 2013: came with his caregiver today, he doesn't follow diet that good and had episodes of hyperglycemia and hypoglycemia. On lantus 7 units at AM and 15 units in the PM. Humalo-6-5 plus sliding scale, not getting low any more recently, kidney is stable, has h/o UTIs. On cephal In Feb/Mar/Apr admited to [facility] for bowel obstruction, no hosp admission related to blood sugar. December 12, 2017: came for follow up visit, came also with his caregiver, still having fluctuations of blood sugar, not following any diet, eats north [place] toast with syrups, having some high and low sugars particularly, now taking 14 units BID, Humalog 8-4-8, had a UTI and needed hospitalization, in August 2017 had blood clot in the kidney, March 05, 2018: came for follow up visit, taking Lantus 14 units in the AM and 10 units in the PM, Humalog 8-4-8, some days his blood sugar is high before dinner when he eats late lunch and with lot of carbs, and last few days he has 73 at 9PM. Dietary History is as follows: on carb controlled diet Exercise: none Jaron is checking his blood glucose 4 times daily. He did bring a logbook today for review: ? Fastin-250 mg/dL ? Prelunch: 159-342 mg/dL ? Predinner: 170-350 mg/dL ? 2 hr post dinner: 111-271 mg/dL Hypoglycemia frequency: couple of time around 1 AM Hypoglycemia awareness: Yes The patient comes into the office today follow up visit Last eye exam: Jul 2017: retinopathy Vacc: up to date Last Feet exam: august 2017 by podiatry Diabetic Education: long time ago PAST MEDICAL HISTORY Diagnosis Date - Acute deep vein thrombosis (DVT) of right upper extremity (HCC) 03/19/15 Diagnosed during hospital admission; coumadin started - Acute embolism and thrombosis of deep vein of right upper extremity (HCC) 04/09/2015 - Acute gastritis without mention of hemorrhage 08/21/2012 - Allergic rhinitis - Anemia 03/07/2015 - Attention deficit disorder with hyperactivity(314.01) - Chronic renal failure Dr. 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 - Hand fracture 07/2012 right - Hemorrhage of gastrointestinal tract, unspecified 08/21/2012 - Hypernatremia 03/07/2015 - Incisional infection 02/04/16 - Nocturnal enuresis 04/28/2005 - OTHER MENTAL RETARDATION - MILD 02/07/2005 - Presence of suprapubic catheter (HCC) Dr. Frias - Retention of urine, unspecified 08/20/2007 - Type I (juvenile type) diabetes mellitus without mention of complication, not stated as uncontrolled 02/04/2005 Dr. Olmedo PAST SURGICAL HISTORY Procedure Laterality Date - APPENDECTOMY 2000 - AV FUSE, UPPR ARM, CEPHALIC 12/17/15 Transposition left upper arm cephalic vein to brachial artery arteriovenous fistula creation - COLONOSCOP W/ OR W/O BRSH SPEC 12/04/14 decompression for pseudoobstruction - COLONOSCOPY 08/21/2012 and EGD - EGD W/REM FB STOMACH/DUOD 01/02/2017 removal of PEG tube with EGD to remove fragment - EGD W/REM FB STOMACH/DUOD 12/2016 - IR VASCULAR ACCESS TEAM PICC REPOSITION 04/04/2015 - MIDLINE INSERTION/CONSULT 03/03/2015 - PAST SURGICAL HISTORY OF Laparotomy - PAST SURGICAL HISTORY OF 01/22/2015 negative exploratory laparotomy for pneumatosis intestinalis high grade bowel obstruction - PICC LINE INSERT/CONSULT 04/02/2015 - PICC LINE INSERT/CONSULT 04/03/2015 - SUPRAPUBIC CATHETER FAMILY HISTORY Problem Relation Age of Onset - other (unknown) Other - Diabetes Father Diabetic, unsure of which type, did not want to provide additional FH details. Family and social history reviewed and updated in the system. Social History Substance Use Topics - Smoking status: Never Smoker - Smokeless tobacco: Never Used - Alcohol use No SOCIAL HISTORY Marital Status: Single Tobacco Use: Never Alcohol Use: No Drug Use: No Sexual Activity: Not on file NARRATIVE Patient lives in a [facility] with 24 hour supervision. He has multiple behavioral problems. Current Outpatient Prescriptions: atorvastatin (LIPITOR) 10 mg tablet TAKE ONE-HALF (1/2) TABLET AT BEDTIME. Disp: 16 tablet Rfl: 11 cholecalciferol (VITAMIN D3) 5,000 unit tab TAKE (1) TABLET BY MOUTH ONCE DAILY. Disp: 31 tablet Rfl: 11 loratadine (CLARITIN) 10 mg tablet TAKE (1) TABLET BY MOUTH ONCE DAILY. Disp: 31 tablet Rfl: 11 albuterol HFA (PROVENTIL HFA, VENTOLIN HFA) 90 mcg/actuation inhaler Inhale 2 Puffs as instructed every 4 hours as needed. Disp: 1 Inhaler Rfl: 1 ofloxacin (FLOXIN) 0.3 % otic solution Use 5 Drops in the right ear twice daily. Disp: 1 Bottle Rfl: 0 glucagon, human recombinant, (GLUCAGON EMERGENCY KIT, HUMAN,) 1 mg injection Inject 1 mg intravenously one time only for 1 dose. Disp: 1 Each Rfl: 1 insulin lispro (HUMALOG KWIKPEN INSULIN) 100 unit/mL inpn INJECT 5-8 UNITS SUBCUTANEOUSLY WITH MEALS AND USE PER SLIDING SCALE SCALE DIRECTED Disp: 5 Pen Rfl: 3 insulin glargine (LANTUS SOLOSTAR U-100 INSULIN) 100 unit/mL (3 mL) inpn 14 units in the AM and 10 units at HS Disp: 15 mL Rfl: 11 blood sugar diagnostic (BLOOD GLUCOSE TEST) test strip Test blood sugar(s) 8 times daily. Dx: Type 1 DM - Uncontrolled E10.69 Insulin: Yes Disp: 250 Strip Rfl: 11 Lancets lancets Test blood sugar(s) 8 times daily. Dx: Type 2 DM - Uncontrolled E11.65 Insulin: Yes Disp: 250 Each Rfl: 11 insulin needles, DISPOSABLE, (ULTICARE PEN NEEDLE) 31 gauge x 5/16 ndle Use to inject insulin 5 times daily. Disp: 150 Each Rfl: 11 ferrous sulfate 325 mg (65 mg iron) tablet Take 325 mg by mouth twice daily. Disp: Rfl: fluticasone (FLONASE) 50 mcg/actuation nasal spray USE 2 SPRAYS IN EACH NOSTRIL ONCE DAILY. RINSE MOUTH AFTER USE. Disp: 3 Bottle Rfl: 3 glucose 4 gram chewable tablet TAKE 4 TABLETS BY MOUTH NEEDED FOR LOW BLOOD SUGAR BELOW 70 Disp: 10 tablet Rfl: 11 FLUoxetine (PROZAC) 20 mg capsule Take 30 mg by mouth once daily. Disp: Rfl: polyethylene glycol 3350 (MIRALAX, GLYCOLAX) 17 gram/dose powder Mix 1 capful (17 GMS) in 8 oz of water and take by mouth 2 times daily (routine scheduled dosage) Disp: 527 g Rfl: 3 polyethylene glycol 3350 (MIRALAX, GLYCOLAX) 17 gram/dose powder Mix 1 capful (17 GMS) in 8 oz of water and take by mouth at 8 pm as 3rd dose if no BM by 8pm. Disp: 527 g Rfl: 3 RENACIDIN 6.602-3.268 gram/100 mL irrigation USE 30ML INTRAVESICALRY VIA URINARY CATHETER 3 TIMES DAILY CLAMP 30MIN THEN DRAIN Disp: 2700 mL Rfl: 3 ketoconazole (NIZORAL) 2 % shampoo APPLY LATHER TO AFFECTED SKIN ON FACE AND RINSE OFF AFTER 2-5 MIN. USE DAILY NEEDED Disp: 120 mL Rfl: 0 melatonin 3 mg tablet TAKE 1 TABLET BY MOUTH DAILY AT BEDTIME Disp: 100 tablet Rfl: 0 ND-ACID GAS RELIEF 80 mg chewable tablet CHEW 1 TABLET BY MOUTH WITH MEALS AND AT BEDTIME Disp: 120 tablet Rfl: 11 Ascorbic Acid (VITAMIN C) 1,000 mg tablet Take 1 tablet by mouth once daily. Disp: 90 tablet Rfl: 3 aspirin, enteric coated (ASPIRIN, ENTERIC COATED) 81 mg EC tablet TAKE (1) TABLET BY MOUTH DAILY IN THE MORNING. Disp: 28 tablet Rfl: [address] (PROTONIX) 40 mg tablet TAKE 1 TABLET BY MOUTH ONCE DAILY 1/2 HR BEFORE BREAKFAST Disp: 28 tablet Rfl: 11 olopatadine (PAZEO) 0.7 % drop Use 1 Drop in eyes once daily. Disp: 2.5 mL Rfl: 11 metoprolol tartrate, short acting, (LOPRESSOR) 25 mg tablet TAKE (1/2) TABLET BY MOUTH TWICE DAILY. Disp: 31 tablet Rfl: 11 senna (SENNA LAX) 8.6 mg tab Take 1 tablet by mouth twice daily. Disp: 180 tablet Rfl: 3 oxybutynin (DITROPAN) 5 mg tablet Take 1 tablet by mouth as needed (once daily as needed for bladder spasms). Disp: 90 tablet Rfl: 4 QUEtiapine (SEROQUEL) 200 mg tablet TAKE (1) TABLET BY MOUTH TWICE A DAY. Disp: 62 tablet Rfl: 1 QUEtiapine (SEROQUEL) 100 mg tablet TAKE 1 TABLET BY MOUTH ONCE DAILY AT 5 PM Disp: 31 tablet Rfl: 1 ammonium lactate (LAC-HYDRIN) 12 % cream Apply 1 application to affected area twice daily. Disp: 385 g Rfl: 3 COMPOUNDED PRESCRIPTION Please provide [facility] glucocard test strips to check blood sugar four to six Times a day Disp: 200 Strip Rfl: 3 benzonatate (TESSALON PERLES) 100 mg capsule Take 2 capsules by mouth three times daily as needed. Disp: 30 capsule Rfl: 0 Dextromethorphan-guaiFENesin (ROBITUSSIN DM) 10-200 mg/5 mL liqd Take 5-10 mL by mouth every 6 hours as needed. for cough Disp: 1 Bottle Rfl: 0 senna (SENNA) 8.6 mg tab Take 8.6 mg by mouth twice daily. Disp: Rfl: apixaban (ELIQUIS) 2.5 mg tab tab(s) Take 1 tablet by mouth twice daily. (Patient not taking: Reported on 03/05/2018 ) Disp: 62 tablet Rfl: 1 carbamide peroxide (DEBROX) 6.5 % otic solution Use 5 Drops in both ears twice daily. for 5 days then discontinue Disp: 1 Bottle Rfl: 1 bisacodyl (LAXATIVE, BISACODYL,) 10 mg supp 1 Suppository by RECTAL route once daily as needed. for constipation (Patient not taking: Reported on 03/05/2018 ) Disp: 20 Suppository Rfl: 12 docusate sodium (COLACE) 100 mg capsule Take 1 capsule by mouth twice daily as needed for Constipation. Disp: 60 capsule Rfl: 11 No current facility-administered medications for this visit. Allergies As of Date: 03/05/2018 Allergen Noted Reaction SEASONAL ALLERGIES 12/03/2012 Other: See Comments Fully Assessed 03/05/2018 REVIEW OF SYSTEMS: March 05, 2018 General: no fever, or chills, gained 10 lbs since last visit Skin: no rashes, pruritis or dry skin Eyes: not very good, Cardiac: denies chest pain, heart palpitations or orthopnea Pulmonary: occasional cough, denies wheezing, or exertional dyspnea GI: denies nausea, vomiting, diarrhea or constipation Neuro: positive for numbnes/tingling in hands or feet Musc: denies history of upper or lower extremity weakness Endocrine: complains of polydipsia and blurred vision, had urinary blade catherter Hematology: Negative for anemia, easy bleeding and bruising. All other systems: non-contributory PHYSICAL EXAM: BP 119/71 (BP Site: Left Arm, BP Position: Sitting, BP Cuff Size: Large Adult) Pulse 93 SpO2 93% March 05, 2018 General: alert, in no acute distress, Skin: skin color, texture, turgor normal, no rashes or lesions. Head: normocephalic, no masses, lesions, tenderness or abnormalities. Eyes: has Anicteric sclera. Extraocular movements are intact. Oropharynx: Lips, mucosa, and tongue normal, Neck: Supple, no adenopathy; thyroid symmetric, normal size, no bruits Heart: RRR without murmur, gallop, or rubs. No ectopy Abdomen: soft, non-tender, positive bowel sounds Extremities: sensation decreased based on 128hz tuning fork examination. and Pitting edema mild b/l +ve Peripheral Pulses: posterior tibial and doralis pedis pulses 2+ and symmetrical DATA: Component Latest Ref Rng AND Units 11/10/2017 11/10/2017 8:10 AM 8:10 AM Protein, Total 6.3 - 8.0 g/dL 8.1 (H) Albumin 3.9 - 4.9 g/dL 3.8 (L) Calcium 8.5 - 10.2 mg/dL 8.7 9.0 Bilirubin, Total 0.2 - 1.3 mg/dL 0.2 Alkaline Phosphatase 36 - 108 U/L 99 AST 14 - 40 U/L 26 Glucose 74 - 99 mg/dL 202 (H) 209 (H) BUN 9 - 24 mg/dL 78 (H) 77 (H) Creatinine 0.73 - 1.22 mg/dL 3.91 (H) 3.84 (H) Sodium 136 - 144 mmol/L 135 (L) 136 Potassium 3.7 - 5.1 mmol/L 5.2 (H) 5.2 (H) Chloride 97 - 105 mmol/L 98 99 CO2 22 - 30 mmol/L 20 (L) 21 (L) Anion Gap 9 - 18 mmol/L 17 16 ALT 10 - 54 U/L 18 eGFR- 21 22 eGFR-All Other Races . 18 18 WBC 3.70 - 11.00 k/uL 8.60 RBC 4.20 - 6.00 m/uL 4.06 (L) Hemoglobin 13.0 - 17.0 g/dL 12.5 (L) Hematocrit 39.0 - 51.0 % 39.7 MCV 80.0 - 100.0 fL 97.8 MCH 26.0 - 34.0 pG 30.8 MCHC 30.5 - 36.0 g/dL 31.5 RDW-CV 11.5 - 15.0 % 15.3 (H) Platelet Count 150 - 400 k/uL 198 MPV 9.0 - 12.7 fL 11.3 Absolute nRBC <0.01 k/uL <0.01 Hemoglobin A1C 4.3 - 5.6 % 7.5 (H) Estimated Average Glucose mg/dL 169 Component Latest Ref Rng 12/03/2012 Hemoglobin A1C 4 - 6 % 9.0 (A) Quality Check yes Creatinine (mg/dL) Date Date Value Range Status 08/08/2012 2.29* 0.70 - 1.40 mg/dL Final HBA1C, [place] (%) Date Value 02/02/2011 10.5* Hemoglobin A1C (%) Date Value 08/08/2012 8.9* ) No components found with this basename: urinealbumin Cholesterol (mg/dL) Date Value 04/11/2012 150 HDL Cholesterol (mg/dL) Date Value 04/11/2012 38* LDL Chol, Greg (mg/dL) Date Value 02/02/2011 92 LDL Cholesterol (mg/dL) Date Value 04/11/2012 98 Triglyceride (mg/dL) Date Value 04/11/2012 72 IMPRESSION: Mr. Morse is a 38 year old male here for evaluation of DM Type 1 complicated by peripheral neuropathy. RECOMMENDATIONS: 1. Glycemic control: This patient is not at target. At this point I will initiate the following changes to his diabetes regimen: Diet and exercise. The patient was reminded to check his blood glucose 4 times a day and to record the data in a logbook. He was advised to bring their logbook to each office visit. I recommended at least 150 minutes per week of moderate physical activity, such as walking and to reduce carbohydrates and overall caloric intake. 2. Hypertension/BP control: This patient is at target on the current regimen. Continue current Rx. 3. Lipids: This patient is currently at target on statin therapy. Continue current Rx. 4. Antiplatelet therapy: This patient is on antiplatelet therapy, . 5. Nephropathy screening: He has stage 3 renal insufficiency. 6. Ophthalmology: This patient is up to date with their annual eye exam and has no history of retinopathy. 7. Immunization: Annual influenza was recommended. Pneumococcal vaccine was recommended. 8. Neuropathy: foot care and better blood sugar control. 9. Over weight: watching carbs and regular exercise, The patient was asked to follow up with us in 3 months. I advised the patient to call in with their blood glucose readings to the office in 4 weeks. Luis Feliciano MD March 05, 2018 CNOV Observed: 03/05/2018 Status: COMPLETED Source: [place] 1:25 PM [facility] REPOSITORY Office Visit (ENDMED) JARON MORSE ([id number]) 1980 M Date Time Provider Department 03/05/18 1:25 PM LUIS FELICIANO During your visit today, we recorded the following information about you: Pulse Blood pressure 93/minute 119/71 Luis Feliciano MD 04/15/2018 7:52 PM Signed Last Visit: December 12, 2017 Reason for Follow up: DM Type 1 HISTORY OF PRESENT ILLNESS; Mr. Morse is a 38 year old gentleman came for follow up visit regarding DM Type 1. He was initially diagnosed with diabetes since at age 8. He does have a family history of diabetes mellitus in his Mother. The patient reports the following microvascular complications: nephropathy. Jaron has no know macrovascular complications of diabetes. He has been on insulin since the diagnosis. His current diabetes regimen is . Regarding symptoms of hyperglycemia, he is is experiencing vision changes, polyuria, polydipsia and has urinary beg. Has suprapubic catheter. November 26, 2013: came with his caregiver today, he doesn't follow diet that good and had episodes of hyperglycemia and hypoglycemia. On lantus 7 units at AM and 15 units in the PM. Humalo-6-5 plus sliding scale, not getting low any more recently, kidney is stable, has h/o UTIs. On cephal In Feb/Mar/Apr admited to [facility] for bowel obstruction, no hosp admission related to blood sugar. December 12, 2017: came for follow up visit, came also with his caregiver, still having fluctuations of blood sugar, not following any diet, eats [place] toast with syrups, having some high and low sugars particularly, now taking 14 units BID, Humalog 8-4-8, had a UTI and needed hospitalization, in August 2017 had blood clot in the kidney, March 05, 2018: came for follow up visit, taking Lantus 14 units in the AM and 10 units in the PM, Humalog 8-4-8, some days his blood sugar is high before dinner when he eats late lunch and with lot of carbs, and last few days he has 73 at 9PM. Dietary History is as follows: on carb controlled diet Exercise: none Jaron is checking his blood glucose 4 times daily. He did bring a logbook today for review: ? Fastin-250 mg/dL ? Prelunch: 159-342 mg/dL ? Predinner: 170-350 mg/dL ? 2 hr post dinner: 111-271 mg/dL Hypoglycemia frequency: couple of time around 1 AM Hypoglycemia awareness: Yes The patient comes into the office today follow up visit Last eye exam: Jul 2017: retinopathy Vacc: up to date Last Feet exam: august 2017 by podiatry Diabetic Education: long time ago PAST MEDICAL HISTORY Diagnosis Date - Acute deep vein thrombosis (DVT) of right upper extremity ([facility]) 03/19/15 Diagnosed during hospital admission; coumadin started - Acute embolism and thrombosis of deep vein of right upper extremity (HCC) 04/09/2015 - Acute gastritis without mention of hemorrhage 08/21/2012 - Allergic rhinitis - Anemia 03/07/2015 - Attention deficit disorder with hyperactivity(314.01) - Chronic renal failure Dr. 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 - Hand fracture 07/2012 right - Hemorrhage of gastrointestinal tract, unspecified 08/21/2012 - Hypernatremia 03/07/2015 - Incisional infection 02/04/16 - Nocturnal enuresis 04/28/2005 - OTHER MENTAL RETARDATION - MILD 02/07/2005 - Presence of suprapubic catheter ([facility]) Dr. Frias - Retention of urine, unspecified 08/20/2007 - Type I (juvenile type) diabetes mellitus without mention of complication, not stated as uncontrolled 02/04/2005 Dr. Olmedo PAST SURGICAL HISTORY Procedure Laterality Date - APPENDECTOMY 2000 - AV FUSE, UPPR ARM, CEPHALIC 12/17/15 Transposition left upper arm cephalic vein to brachial artery arteriovenous fistula creation - COLONOSCOP W/ OR W/O BRSH SPEC 12/04/14 decompression for pseudoobstruction - COLONOSCOPY 08/21/2012 and EGD - EGD W/REM FB STOMACH/DUOD 01/02/2017 removal of PEG tube with EGD to remove fragment - EGD W/REM FB STOMACH/DUOD 12/2016 - IR VASCULAR ACCESS TEAM PICC REPOSITION 04/04/2015 - MIDLINE INSERTION/CONSULT 03/03/2015 - PAST SURGICAL HISTORY OF Laparotomy - PAST SURGICAL HISTORY OF 01/22/2015 negative exploratory laparotomy for pneumatosis intestinalis high grade bowel obstruction - PICC LINE INSERT/CONSULT 04/02/2015 - PICC LINE INSERT/CONSULT 04/03/2015 - SUPRAPUBIC CATHETER FAMILY HISTORY Problem Relation Age of Onset - other (unknown) Other - Diabetes Father Diabetic, unsure of which type, did not want to provide additional FH details. Family and social history reviewed and updated in the system. Social History Substance Use Topics - Smoking status: Never Smoker - Smokeless tobacco: Never Used - Alcohol use No SOCIAL HISTORY Marital Status: Single Tobacco Use: Never Alcohol Use: No Drug Use: No Sexual Activity: Not on file NARRATIVE Patient lives in a [facility] with 24 hour supervision. He has multiple behavioral problems. Current Outpatient Prescriptions: atorvastatin (LIPITOR) 10 mg tablet TAKE ONE-HALF (1/2) TABLET AT BEDTIME. Disp: 16 tablet Rfl: 11 cholecalciferol (VITAMIN D3) 5,000 unit tab TAKE (1) TABLET BY MOUTH ONCE DAILY. Disp: 31 tablet Rfl: 11 loratadine (CLARITIN) 10 mg tablet TAKE (1) TABLET BY MOUTH ONCE DAILY. Disp: 31 tablet Rfl: 11 albuterol HFA (PROVENTIL HFA, VENTOLIN HFA) 90 mcg/actuation inhaler Inhale 2 Puffs as instructed every 4 hours as needed. Disp: 1 Inhaler Rfl: 1 ofloxacin (FLOXIN) 0.3 % otic solution Use 5 Drops in the right ear twice daily. Disp: 1 Bottle Rfl: 0 glucagon, human recombinant, (GLUCAGON EMERGENCY KIT, HUMAN,) 1 mg injection Inject 1 mg intravenously one time only for 1 dose. Disp: 1 Each Rfl: 1 insulin lispro (HUMALOG KWIKPEN INSULIN) 100 unit/mL inpn INJECT 5-8 UNITS SUBCUTANEOUSLY WITH MEALS AND USE PER SLIDING SCALE SCALE DIRECTED Disp: 5 Pen Rfl: 3 insulin glargine (LANTUS SOLOSTAR U-100 INSULIN) 100 unit/mL (3 mL) inpn 14 units in the AM and 10 units at HS Disp: 15 mL Rfl: 11 blood sugar diagnostic (BLOOD GLUCOSE TEST) test strip Test blood sugar(s) 8 times daily. Dx: Type 1 DM - Uncontrolled E10.69 Insulin: Yes Disp: 250 Strip Rfl: 11 Lancets lancets Test blood sugar(s) 8 times daily. Dx: Type 2 DM - Uncontrolled E11.65 Insulin: Yes Disp: 250 Each Rfl: 11 insulin needles, DISPOSABLE, (ULTICARE PEN NEEDLE) 31 gauge x 5/16 ndle Use to inject insulin 5 times daily. Disp: 150 Each Rfl: 11 ferrous sulfate 325 mg (65 mg iron) tablet Take 325 mg by mouth twice daily. Disp: Rfl: fluticasone (FLONASE) 50 mcg/actuation nasal spray USE 2 SPRAYS IN EACH NOSTRIL ONCE DAILY. RINSE MOUTH AFTER USE. Disp: 3 Bottle Rfl: 3 glucose 4 gram chewable tablet TAKE 4 TABLETS BY MOUTH NEEDED FOR LOW BLOOD SUGAR BELOW 70 Disp: 10 tablet Rfl: 11 FLUoxetine (PROZAC) 20 mg capsule Take 30 mg by mouth once daily. Disp: Rfl: polyethylene glycol 3350 (MIRALAX, GLYCOLAX) 17 gram/dose powder Mix 1 capful (17 GMS) in 8 oz of water and take by mouth 2 times daily (routine scheduled dosage) Disp: 527 g Rfl: 3 polyethylene glycol 3350 (MIRALAX, GLYCOLAX) 17 gram/dose powder Mix 1 capful (17 GMS) in 8 oz of water and take by mouth at 8 pm as 3rd dose if no BM by 8pm. Disp: 527 g Rfl: 3 RENACIDIN 6.602-3.268 gram/100 mL irrigation USE 30ML INTRAVESICALRY VIA URINARY CATHETER 3 TIMES DAILY CLAMP 30MIN THEN DRAIN Disp: 2700 mL Rfl: 3 ketoconazole (NIZORAL) 2 % shampoo APPLY LATHER TO AFFECTED SKIN ON FACE AND RINSE OFF AFTER 2-5 MIN. USE DAILY NEEDED Disp: 120 mL Rfl: 0 melatonin 3 mg tablet TAKE 1 TABLET BY MOUTH DAILY AT BEDTIME Disp: 100 tablet Rfl: 0 ND-ACID GAS RELIEF 80 mg chewable tablet CHEW 1 TABLET BY MOUTH WITH MEALS AND AT BEDTIME Disp: 120 tablet Rfl: 11 Ascorbic Acid (VITAMIN C) 1,000 mg tablet Take 1 tablet by mouth once daily. Disp: 90 tablet Rfl: 3 aspirin, enteric coated (ASPIRIN, ENTERIC COATED) 81 mg EC tablet TAKE (1) TABLET BY MOUTH DAILY IN THE MORNING. Disp: 28 tablet Rfl: [address] (PROTONIX) 40 mg tablet TAKE 1 TABLET BY MOUTH ONCE DAILY 1/2 HR BEFORE BREAKFAST Disp: 28 tablet Rfl: 11 olopatadine (PAZEO) 0.7 % drop Use 1 Drop in eyes once daily. Disp: 2.5 mL Rfl: 11 metoprolol tartrate, short acting, (LOPRESSOR) 25 mg tablet TAKE (1/2) TABLET BY MOUTH TWICE DAILY. Disp: 31 tablet Rfl: 11 senna (SENNA LAX) 8.6 mg tab Take 1 tablet by mouth twice daily. Disp: 180 tablet Rfl: 3 oxybutynin (DITROPAN) 5 mg tablet Take 1 tablet by mouth as needed (once daily as needed for bladder spasms). Disp: 90 tablet Rfl: 4 QUEtiapine (SEROQUEL) 200 mg tablet TAKE (1) TABLET BY MOUTH TWICE A DAY. Disp: 62 tablet Rfl: 1 QUEtiapine (SEROQUEL) 100 mg tablet TAKE 1 TABLET BY MOUTH ONCE DAILY AT 5 PM Disp: 31 tablet Rfl: 1 ammonium lactate (LAC-HYDRIN) 12 % cream Apply 1 application to affected area twice daily. Disp: 385 g Rfl: 3 COMPOUNDED PRESCRIPTION Please provide [facility] glucocard test strips to check blood sugar four to six Times a day Disp: 200 Strip Rfl: 3 benzonatate (TESSALON PERLES) 100 mg capsule Take 2 capsules by mouth three times daily as needed. Disp: 30 capsule Rfl: 0 Dextromethorphan-guaiFENesin (ROBITUSSIN DM) 10-200 mg/5 mL liqd Take 5-10 mL by mouth every 6 hours as needed. for cough Disp: 1 Bottle Rfl: 0 senna (SENNA) 8.6 mg tab Take 8.6 mg by mouth twice daily. Disp: Rfl: apixaban (ELIQUIS) 2.5 mg tab tab(s) Take 1 tablet by mouth twice daily. (Patient not taking: Reported on 03/05/2018 ) Disp: 62 tablet Rfl: 1 carbamide peroxide (DEBROX) 6.5 % otic solution Use 5 Drops in both ears twice daily. for 5 days then discontinue Disp: 1 Bottle Rfl: 1 bisacodyl (LAXATIVE, BISACODYL,) 10 mg supp 1 Suppository by RECTAL route once daily as needed. for constipation (Patient not taking: Reported on 03/05/2018 ) Disp: 20 Suppository Rfl: 12 docusate sodium (COLACE) 100 mg capsule Take 1 capsule by mouth twice daily as needed for Constipation. Disp: 60 capsule Rfl: 11 No current facility-administered medications for this visit. Allergies As of Date: 03/05/2018 Allergen Noted Reaction SEASONAL ALLERGIES 12/03/2012 Other: See Comments Fully Assessed 03/05/2018 REVIEW OF SYSTEMS: March 05, 2018 General: no fever, or chills, gained 10 lbs since last visit Skin: no rashes, pruritis or dry skin Eyes: not very good, Cardiac: denies chest pain, heart palpitations or orthopnea Pulmonary: occasional cough, denies wheezing, or exertional dyspnea GI: denies nausea, vomiting, diarrhea or constipation Neuro: positive for numbnes/tingling in hands or feet Musc: denies history of upper or lower extremity weakness Endocrine: complains of polydipsia and blurred vision, had urinary blade catherter Hematology: Negative for anemia, easy bleeding and bruising. All other systems: non-contributory PHYSICAL EXAM: BP 119/71 (BP Site: Left Arm, BP Position: Sitting, BP Cuff Size: Large Adult) Pulse 93 SpO2 93% March 05, 2018 General: alert, in no acute distress, Skin: skin color, texture, turgor normal, no rashes or lesions. Head: normocephalic, no masses, lesions, tenderness or abnormalities. Eyes: has Anicteric sclera. Extraocular movements are intact. Oropharynx: Lips, mucosa, and tongue normal, Neck: Supple, no adenopathy; thyroid symmetric, normal size, no bruits Heart: RRR without murmur, gallop, or rubs. No ectopy Abdomen: soft, non-tender, positive bowel sounds Extremities: sensation decreased based on 128hz tuning fork examination. and Pitting edema mild b/l +ve Peripheral Pulses: posterior tibial and doralis pedis pulses 2+ and symmetrical DATA: Component Latest Ref Rng AND Units 11/10/2017 11/10/2017 8:10 AM 8:10 AM Protein, Total 6.3 - 8.0 g/dL 8.1 (H) Albumin 3.9 - 4.9 g/dL 3.8 (L) Calcium 8.5 - 10.2 mg/dL 8.7 9.0 Bilirubin, Total 0.2 - 1.3 mg/dL 0.2 Alkaline Phosphatase 36 - 108 U/L 99 AST 14 - 40 U/L 26 Glucose 74 - 99 mg/dL 202 (H) 209 (H) BUN 9 - 24 mg/dL 78 (H) 77 (H) Creatinine 0.73 - 1.22 mg/dL 3.91 (H) 3.84 (H) Sodium 136 - 144 mmol/L 135 (L) 136 Potassium 3.7 - 5.1 mmol/L 5.2 (H) 5.2 (H) Chloride 97 - 105 mmol/L 98 99 CO2 22 - 30 mmol/L 20 (L) 21 (L) Anion Gap 9 - 18 mmol/L 17 16 ALT 10 - 54 U/L 18 eGFR- 21 22 eGFR-All Other Races . 18 18 WBC 3.70 - 11.00 k/uL 8.60 RBC 4.20 - 6.00 m/uL 4.06 (L) Hemoglobin 13.0 - 17.0 g/dL 12.5 (L) Hematocrit 39.0 - 51.0 % 39.7 MCV 80.0 - 100.0 fL 97.8 MCH 26.0 - 34.0 pG 30.8 MCHC 30.5 - 36.0 g/dL 31.5 RDW-CV 11.5 - 15.0 % 15.3 (H) Platelet Count 150 - 400 k/uL 198 MPV 9.0 - 12.7 fL 11.3 Absolute nRBC <0.01 k/uL <0.01 Hemoglobin A1C 4.3 - 5.6 % 7.5 (H) Estimated Average Glucose mg/dL 169 Component Latest Ref Rng 12/03/2012 Hemoglobin A1C 4 - 6 % 9.0 (A) Quality Check yes Creatinine (mg/dL) Date Date Value Range Status 08/08/2012 2.29* 0.70 - 1.40 mg/dL Final HBA1C, Greg (%) Date Value 02/02/2011 10.5* Hemoglobin A1C (%) Date Value 08/08/2012 8.9* ) No components found with this basename: urinealbumin Cholesterol (mg/dL) Date Value 04/11/2012 150 HDL Cholesterol (mg/dL) Date Value 04/11/2012 38* LDL Chol, Greg (mg/dL) Date Value 02/02/2011 92 LDL Cholesterol (mg/dL) Date Value 04/11/2012 98 Triglyceride (mg/dL) Date Value 04/11/2012 72 IMPRESSION: Mr. Morse is a 38 year old male here for evaluation of DM Type 1 complicated by peripheral neuropathy. RECOMMENDATIONS: 1. Glycemic control: This patient is not at target. At this point I will initiate the following changes to his diabetes regimen: Diet and exercise. The patient was reminded to check his blood glucose 4 times a day and to record the data in a logbook. He was advised to bring their logbook to each office visit. I recommended at least 150 minutes per week of moderate physical activity, such as walking and to reduce carbohydrates and overall caloric intake. 2. Hypertension/BP control: This patient is at target on the current regimen. Continue current Rx. 3. Lipids: This patient is currently at target on statin therapy. Continue current Rx. 4. Antiplatelet therapy: This patient is on antiplatelet therapy, . 5. Nephropathy screening: He has stage 3 renal insufficiency. 6. Ophthalmology: This patient is up to date with their annual eye exam and has no history of retinopathy. 7. Immunization: Annual influenza was recommended. Pneumococcal vaccine was recommended. 8. Neuropathy: foot care and better blood sugar control. 9. Over weight: watching carbs and regular exercise, The patient was asked to follow up with us in 3 months. I advised the patient to call in with their blood glucose readings to the office in 4 weeks. Luis Feliciano MD March 05, 2018 Referring Provider: LUIS FELICIANO [[id number]] Allergies As of Date: 03/05/2018 Noted Allergy Reaction SEASONAL ALLERGIES 12/03/2012 14 - Other: See Comments Comments: Environmental-ragweed Date Reviewed: 03/05/2018 Reviewed by: Lakeisha Zamora Ma - Fully Assessed Reason for Visit: Diabetes [34] Primary Visit Diagnosis:Uncontrolled type 1 diabetes mellitus with hypoglycemia, unspecified hypoglycemia coma status ([facility]) [E10.649] Other Visit Diagnoses:CKD (chronic kidney disease) stage 4, GFR 15-29 ml/min ([facility]) [N18.4] Neuropathy (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] Order(s):DIABETES EDUCATION (CDE) (X20) [4212741] Order #: [id number]: 1 Prescriptions as of 03/05/2018 Sig: ATORVASTATIN 10 MG TABLET TAKE ONE-HALF (1/2) TABLET AT* CHOLECALCIFEROL (VITAMIN D3) * TAKE (1) TABLET BY MOUTH ONCE* LORATADINE 10 MG TABLET TAKE (1) TABLET BY MOUTH ONCE* ALBUTEROL SULFATE HFA 90 MCG/* Inhale 2 Puffs as instructed * OFLOXACIN 0.3 % EAR DROPS Use 5 Drops in the right ear * GLUCAGON (HUMAN RECOMBINANT) * Inject 1 mg intravenously one* INSULIN LISPRO (U-100) 100 UN* INJECT 5-8 UNITS SUBCUTANEOUS* INSULIN GLARGINE (U-100) 100 * 14 units in the AM and 10 uni* BLOOD SUGAR DIAGNOSTIC STRIPS Test blood sugar(s) 8 times d* LANCETS Test blood sugar(s) 8 times d* PEN NEEDLE, DIABETIC 31 GAUGE* Use to inject insulin 5 times* FERROUS SULFATE 325 MG (65 MG* Take 325 mg by mouth twice da* FLUTICASONE 50 MCG/ACTUATION * USE 2 SPRAYS IN EACH NOSTRIL * GLUCOSE 4 GRAM CHEWABLE TABLET TAKE 4 TABLETS BY MOUTH NE* FLUOXETINE 20 MG CAPSULE Take 30 mg by mouth once jacquelin* POLYETHYLENE GLYCOL 3350 17 G* Mix 1 capful (17 GMS) in 8 oz* X POLYETHYLENE GLYCOL 3350 17 G* Mix 1 capful (17 GMS) in 8 oz* RENACIDIN 6.602 GRAM-3.268 GR* USE 30ML INTRAVESICALRY VIA U* KETOCONAZOLE 2 % SHAMPOO APPLY LATHER TO AFFECTED SKIN* MELATONIN 3 MG TABLET TAKE 1 TABLET BY MOUTH DAILY * ND-ACID GAS RELIEF 80 MG CHEW* CHEW 1 TABLET BY MOUTH WITH M* ASCORBIC ACID (VITAMIN C) 1,0* Take 1 tablet by mouth once d* ASPIRIN 81 MG TABLET,DELAYED * TAKE (1) TABLET BY MOUTH JACQUELIN* PANTOPRAZOLE 40 MG TABLET,DEL* TAKE 1 TABLET BY MOUTH ONCE D* OLOPATADINE 0.7 % EYE DROPS Use 1 Drop in eyes once daily. METOPROLOL TARTRATE 25 MG TAB* TAKE (1/2) TABLET BY MOUTH TW* SENNOSIDES 8.6 MG TABLET Take 1 tablet by mouth twice * OXYBUTYNIN CHLORIDE 5 MG TABL* Take 1 tablet by mouth as nee* QUETIAPINE 200 MG TABLET TAKE (1) TABLET BY MOUTH TWIC* QUETIAPINE 100 MG TABLET TAKE 1 TABLET BY MOUTH ONCE D* AMMONIUM LACTATE 12 % TOPICAL* Apply 1 application to affect* COMPOUNDED PRESCRIPTION Please provide ARKKAY glucoca* BENZONATATE 100 MG CAPSULE Take 2 capsules by mouth thre* DEXTROMETHORPHAN-GUAIFENESIN * Take 5-10 mL by mouth every 6* SENNOSIDES 8.6 MG TABLET Take 8.6 mg by mouth twice da* APIXABAN 2.5 MG TABLET Take 1 tablet by mouth twice * Patient not taking: Reported on 03/05/2018 CARBAMIDE PEROXIDE 6.5 % EAR * Use 5 Drops in both ears twic* BISACODYL 10 MG RECTAL SUPPOS* 1 Suppository by RECTAL route* Patient not taking: Reported on 03/05/2018 DOCUSATE SODIUM 100 MG CAPSULE Take 1 capsule by mouth twice* Medication notes this encounter QUETIAPINE 100 MG TABLET >> Lakeisha Zamora Ma 03/05/2018 1:48 PM >> LAKEISHA ZAMORA MA Mar 05, 2018 1:48 PM Problem List As Of Date 03/05/2018 Noted Resolved ATTN DEFICIT W HYPERACT [F90.9] INVALID FOR* Uncontrolled type 1 diabetes mellitus (HCC) [E1*INVALID FOR* HYDRONEPHROSIS [N13.30] INVALID FOR* 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 Allergic rhinitis [J30.9] DVT of left axillary vein, acute (HCC) [I82.A12]INVALID FOR* Disposition: Return in about 3 months (around 06/04/2018). Follow-up and Disposition History Recorded Encounter Status:Closed by LUIS FELICIANO MD on 04/15/18 SURGERY VISIT REPORT Observed: 02/21/2018 Status: F Source: [place] 3:54 PM [facility] REPOSITORY [facility] [address] [place] [address] [address] [place] [address] OFFICE VISIT Date of Service: 02/21/18 MR#: [id number] Acct: [id number] Name: JARON MORSE Yaquelin Rep #: [id number] : 1980 Provider: Taylor Owens PA-C Age/Sex: 38/M Location: [facility] Status: Signed Intake Intake Visit Reasons: Fistula Creation RC 02/16 Allergies No Known Allergies Allergy (Verified 01/25/18 08:04) Medications Ascorbic Acid [Vitamin C] 1,000 mg PO DAILY 02/21/15 [History Confirmed 02/09/18] Aspirin [Aspirin, Baby] 81 mg PO DAILY 02/21/15 [History Confirmed 02/09/18] Fluoxetine [Prozac] 30 mg PO DAILY 02/21/15 [History Confirmed 02/09/18] Quetiapine Fumarate [Seroquel] 100 mg PO 1700 02/21/15 [History Confirmed 02/09/18] Quetiapine Fumarate [Seroquel] 200 mg PO BID 02/21/15 [History Confirmed 02/09/18] Loratadine [Claritin] 10 mg PO DAILY 07/08/15 [History Confirmed 02/09/18] Melatonin 3 mg PO QHS 12/09/15 [History Confirmed 02/09/18] Insulin Lispro [Humalog Kwikpen] 4 unit SQ LUNCH 08/29/16 [History Confirmed 02/09/18] Atorvastatin Calcium 5 mg PO QHS 11/07/16 [History Confirmed 02/09/18] Pantoprazole Sodium [Protonix] 40 mg PO DAILY 11/07/16 [History Confirmed 02/09/18] Sennosides [Senna] 8.6 mg PO BID 12/29/16 [History Confirmed 02/09/18] Metoprolol Tartrate 12.5 mg PO BID 05/20/17 [History Confirmed 02/09/18] Oxybutynin [Ditropan] 5 mg PO DAILY PRN 05/20/17 [History Confirmed 02/09/18] Fluticasone Propionate [Flovent Diskus] 2 spray NARES DAILY 11/30/17 [History Confirmed 02/09/18] Olopatadine HCl [Pazeo] 1 drp EACH EYE DAILY 11/30/17 [History Confirmed 02/09/18] acetaminophen 325 mg tablet 650 mg PO Q8H PRN tab 12/13/17 [History Confirmed 02/09/18] albuterol sulfate HFA 90 mcg/actuation aerosol inhaler 2 puff INHALATION Q4H PRN 12/13/17 [History Confirmed 02/09/18] ketoconazole 2 % shampoo 1 applic TOPICAL Q2W PRN 12/13/17 [History Confirmed 02/09/18] Insulin Lispro [Humalog] 8 unit SQ BREAKFAST 12/24/17 [History Confirmed 02/09/18] Insulin Lispro [Humalog] 8 unit SQ DINNER 12/24/17 [History Confirmed 02/09/18] Cholecalciferol (Vitamin D3) [Vitamin D3] 5,000 unit PO DAILY 01/09/18 [History Confirmed 02/09/18] Ferrous Sulfate [Iron] 2 tab PO DAILY 01/09/18 [History Confirmed 02/09/18] Insulin Glargine [Lantus (BKC)] 10 units SC QHS 02/09/18 [History Confirmed 02/09/18] Insulin Glargine,Hum.rec.anlog [Lantus Solostar] 14 unit SQ DAILY 02/09/18 [History Confirmed 02/09/18] Polyethylene Glycol 3350 [Miralax] 17 gm PO BID 02/09/18 [History Confirmed 02/09/18] Hydrocodone Bitart/Apap 5-325 [[place] 5MG-325MG] 1 tab PO Q6H PRN PRN 3 Days #5 tab 02/16/18 [Rx] Subjective Details: Patient is a 38 y/o male I am following for stage IV renal failure. Dr. Abreu performed a stage I forearm radial to cephalic arteriovenous fistula creation on 02/16/18. Patient tolerated the procedure well. He notes burning sensation near the incision. He denies numbness/tingling. He is not currently on dialysis. Dr. Ovalles is his weblogic administrator. Objective Details: Right forearm AV fistula- incision c/d/i. No erythema or infection noted. Moderate amount of swelling and ecchymosis. good pulse, bruit and thrill. Steri- strips intact. Hand is warm. Customer Development Manager strength is good. Assessment AND Plan Problems 1. Chronic renal disease, stage IV N18.4 Plan - Continue hand exercises - Follow-up in 2 weeks Coding Level of Care Code Global Post Op Diagnoses Chronic renal disease, stage IV N18.4 02/21/18 1554 <Electronically signed by Taylor Owens PA-C> Date Taylor Owens PA-C Cosigner Signature: Date (if applicable) CC: 12 LEAD ELECTROCARDIOGRAM Observed: 02/20/2018 Status: F Source: GREG 1:54 PM [facility] REPOSITORY [facility] Cardiovascular Services [address] [place] [address] 12 Lead EKG 02/16/18 0740 MR#: [id number] Acct: [id number] Name: FRACISCOARLEYJARON Pantoja Rep #: [id number] : 1980 38 From: Manish Cuello MD Attending Dr: Hugh Abreu MD Status: [facility] Ordering Dr: Hugh Abreu MD Date: 02/16/18 Location: [facility] Sex: M C Admitted: Test Reason : PRE-OP Blood Pressure : / mmHG Vent. Rate : 079 BPM Atrial Rate : 079 BPM P-R Int : 140 ms QRS Dur : 082 ms QT Int : 398 ms P-R-T Axes : 046 067 045 degrees QTc Int : 456 ms Normal sinus rhythm Low voltage QRS Borderline ECG When compared with ECG of 19-MAY-2017 10:27, No significant change was found Confirmed by MANISH CUELLO ([id number]), acquisitions editor DALILA GABRIEL ([id number]) on 02/20/2018 1:54:09 PM Referred By: Hugh Abreu Confirmed By:MANISH CUELLO 02/20/18 1354 Date Manish Cuello MD CC: Francine Clark MD; Hugh Abreu MD Signed PROGRESS Observed: 02/20/2018 Status: COMPLETED Source: [place] 11:08 AM [facility] REPOSITORY HNO ID: [id number] Author: Joanne Lozano) Eric Service: (none) Author Type: Physician Bearing Maker Type: Progress Notes Filed: 02/20/2018 12:58 PM Note Text: Subjective HPI Pt presents cough x 4 days. Non productive. He does have seasonal allergies. His right ear has been bothering him as well. No fever or chills. No nvd. Denies recent swimming. He is having trouble hearing out of the right ear. No chest pain or shortness of breath. He si not a smoker. 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 Review of Systems Constitutional: Negative. Negative for chills and fever. HENT: Positive for congestion and ear pain. Negative for sore throat. Eyes: Negative. Respiratory: Positive for cough. Negative for sputum production, shortness of breath and wheezing. Cardiovascular: Negative. Gastrointestinal: Negative. Genitourinary: Negative. Musculoskeletal: Negative. Skin: Negative. All other systems reviewed and are negative. PAST MEDICAL HISTORY Diagnosis Date - Acute deep vein thrombosis (DVT) of right upper extremity (HCC) 03/19/15 Diagnosed during hospital admission; coumadin started - Acute embolism and thrombosis of deep vein of right upper extremity (HCC) 04/09/2015 - Acute gastritis without mention of hemorrhage 08/21/2012 - Allergic rhinitis - Anemia 03/07/2015 - Attention deficit disorder with hyperactivity(314.01) - Chronic renal failure Dr. 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 - Hand fracture 07/2012 right - Hemorrhage of gastrointestinal tract, unspecified 08/21/2012 - Hypernatremia 03/07/2015 - Incisional infection 02/04/16 - Nocturnal enuresis 04/28/2005 - OTHER MENTAL RETARDATION - MILD 02/07/2005 - Presence of suprapubic catheter ([facility]) Dr. Frias - Retention of urine, unspecified 08/20/2007 - Type I (juvenile type) diabetes mellitus without mention of complication, not stated as uncontrolled 02/04/2005 Dr. Olmedo Current Outpatient Prescriptions: insulin lispro (HUMALOG KWIKPEN INSULIN) 100 unit/mL inpn INJECT 5-8 UNITS SUBCUTANEOUSLY WITH MEALS AND USE PER SLIDING SCALE SCALE DIRECTED Disp: 5 Pen Rfl: 3 insulin glargine (LANTUS SOLOSTAR U-100 INSULIN) 100 unit/mL (3 mL) inpn 14 units in the AM and 10 units at HS Disp: 15 mL Rfl: 11 blood sugar diagnostic (BLOOD GLUCOSE TEST) test strip Test blood sugar(s) 8 times daily. Dx: Type 1 DM - Uncontrolled E10.69 Insulin: Yes Disp: 250 Strip Rfl: 11 Lancets lancets Test blood sugar(s) 8 times daily. Dx: Type 2 DM - Uncontrolled E11.65 Insulin: Yes Disp: 250 Each Rfl: 11 insulin needles, DISPOSABLE, (ULTICARE PEN NEEDLE) 31 gauge x 5/16 ndle Use to inject insulin 5 times daily. Disp: 150 Each Rfl: 11 ferrous sulfate 325 mg (65 mg iron) tablet Take 325 mg by mouth daily with breakfast. Disp: Rfl: Dextromethorphan-guaiFENesin (ROBITUSSIN DM) 10-200 mg/5 mL liqd Take 5-10 mL by mouth every 6 hours as needed. for cough Disp: 1 Bottle Rfl: 0 atorvastatin (LIPITOR) 10 mg tablet Take 0.5 tablets by mouth once daily. Disp: 15 tablet Rfl: 0 cholecalciferol (VITAMIN D3) 5,000 unit tab Take 1 tablet by mouth once daily. Disp: 30 tablet Rfl: 0 loratadine (CLARITIN) 10 mg tablet Take 1 tablet by mouth once daily. Disp: 30 tablet Rfl: 0 fluticasone (FLONASE) 50 mcg/actuation nasal spray USE 2 SPRAYS IN EACH NOSTRIL ONCE DAILY. RINSE MOUTH AFTER USE. Disp: 3 Bottle Rfl: 3 glucose 4 gram chewable tablet TAKE 4 TABLETS BY MOUTH NEEDED FOR LOW BLOOD SUGAR BELOW 70 Disp: 10 tablet Rfl: 11 apixaban (ELIQUIS) 2.5 mg tab tab(s) Take 1 tablet by mouth twice daily. Disp: 62 tablet Rfl: 1 FLUoxetine (PROZAC) 20 mg capsule Take 30 mg by mouth once daily. Disp: Rfl: polyethylene glycol 3350 (MIRALAX, GLYCOLAX) 17 gram/dose powder Mix 1 capful (17 GMS) in 8 oz of water and take by mouth 2 times daily (routine scheduled dosage) Disp: 527 g Rfl: 3 polyethylene glycol 3350 (MIRALAX, GLYCOLAX) 17 gram/dose powder Mix 1 capful (17 GMS) in 8 oz of water and take by mouth at 8 pm as 3rd dose if no BM by 8pm. Disp: 527 g Rfl: 3 RENACIDIN 6.602-3.268 gram/100 mL irrigation USE 30ML INTRAVESICALRY VIA URINARY CATHETER 3 TIMES DAILY CLAMP 30MIN THEN DRAIN Disp: 2700 mL Rfl: 3 carbamide peroxide (DEBROX) 6.5 % otic solution Use 5 Drops in both ears twice daily. for 5 days then discontinue Disp: 1 Bottle Rfl: 1 ketoconazole (NIZORAL) 2 % shampoo APPLY LATHER TO AFFECTED SKIN ON FACE AND RINSE OFF AFTER 2-5 MIN. USE DAILY NEEDED Disp: 120 mL Rfl: 0 melatonin 3 mg tablet TAKE 1 TABLET BY MOUTH DAILY AT BEDTIME Disp: 100 tablet Rfl: 0 ND-ACID GAS RELIEF 80 mg chewable tablet CHEW 1 TABLET BY MOUTH WITH MEALS AND AT BEDTIME Disp: 120 tablet Rfl: 11 Ascorbic Acid (VITAMIN C) 1,000 mg tablet Take 1 tablet by mouth once daily. Disp: 90 tablet Rfl: 3 aspirin, enteric coated (ASPIRIN, ENTERIC COATED) 81 mg EC tablet TAKE (1) TABLET BY MOUTH DAILY IN THE MORNING. Disp: 28 tablet Rfl: [address] (PROTONIX) 40 mg tablet TAKE 1 TABLET BY MOUTH ONCE DAILY 1/2 HR BEFORE BREAKFAST Disp: 28 tablet Rfl: 11 olopatadine (PAZEO) 0.7 % drop Use 1 Drop in eyes once daily. Disp: 2.5 mL Rfl: 11 metoprolol tartrate, short acting, (LOPRESSOR) 25 mg tablet TAKE (1/2) TABLET BY MOUTH TWICE DAILY. Disp: 31 tablet Rfl: 11 senna (SENNA LAX) 8.6 mg tab Take 1 tablet by mouth twice daily. Disp: 180 tablet Rfl: 3 oxybutynin (DITROPAN) 5 mg tablet Take 1 tablet by mouth as needed (once daily as needed for bladder spasms). Disp: 90 tablet Rfl: 4 albuterol HFA (PROVENTIL HFA, VENTOLIN HFA) 90 mcg/actuation inhaler Inhale 2 Puffs as instructed every 4 hours as needed. Disp: 1 Inhaler Rfl: 1 QUEtiapine (SEROQUEL) 200 mg tablet TAKE (1) TABLET BY MOUTH TWICE A DAY. Disp: 62 tablet Rfl: 1 QUEtiapine (SEROQUEL) 100 mg tablet TAKE 1 TABLET BY MOUTH ONCE DAILY AT 5 PM Disp: 31 tablet Rfl: 1 ammonium lactate (LAC-HYDRIN) 12 % cream Apply 1 application to affected area twice daily. Disp: 385 g Rfl: 3 COMPOUNDED PRESCRIPTION Please provide [facility] glucocard test strips to check blood sugar four to six Times a day Disp: 200 Strip Rfl: 3 bisacodyl (LAXATIVE, BISACODYL,) 10 mg supp 1 Suppository by RECTAL route once daily as needed. for constipation Disp: 20 Suppository Rfl: 12 docusate sodium (COLACE) 100 mg capsule Take 1 capsule by mouth twice daily as needed for Constipation. Disp: 60 capsule Rfl: 11 benzonatate (TESSALON PERLES) 100 mg capsule Take 2 capsules by mouth three times daily as needed. Disp: 30 capsule Rfl: 0 ofloxacin (FLOXIN) 0.3 % otic solution Use 5 Drops in the right ear twice daily. Disp: 1 Bottle Rfl: 0 glucagon, human recombinant, (GLUCAGON EMERGENCY KIT, HUMAN,) 1 mg injection Inject 1 mg intravenously one time only for 1 dose. Disp: 1 Each Rfl: 1 senna (SENNA) 8.6 mg tab Take 8.6 mg by mouth twice daily. Disp: Rfl: No current facility-administered medications for this visit. PAST SURGICAL HISTORY Procedure Laterality Date - APPENDECTOMY 2000 - AV FUSE, UPPR ARM, CEPHALIC 12/17/15 Transposition left upper arm cephalic vein to brachial artery arteriovenous fistula creation - COLONOSCOP W/ OR W/O BRSH SPEC 12/04/14 decompression for pseudoobstruction - COLONOSCOPY 08/21/2012 and EGD - EGD W/REM FB STOMACH/DUOD 01/02/2017 removal of PEG tube with EGD to remove fragment - EGD W/REM FB STOMACH/DUOD 12/2016 - IR VASCULAR ACCESS TEAM PICC REPOSITION 04/04/2015 - MIDLINE INSERTION/CONSULT 03/03/2015 - PAST SURGICAL HISTORY OF Laparotomy - PAST SURGICAL HISTORY OF 01/22/2015 negative exploratory laparotomy for pneumatosis intestinalis high grade bowel obstruction - PICC LINE INSERT/CONSULT 04/02/2015 - PICC LINE INSERT/CONSULT 04/03/2015 - SUPRAPUBIC CATHETER FAMILY HISTORY Problem Relation Age of Onset - other (unknown) Other - Diabetes Father Diabetic, unsure of which type, did not want to provide additional FH details. Social History Substance Use Topics - Smoking status: Never Smoker - Smokeless tobacco: Never Used - Alcohol use No BP 114/80 Pulse 88 Temp 36.6 ?C (97.8 ?F) (Tympanic) Resp 18 Wt 101.6 kg (224 lb) SpO2 96% BMI 38.45 kg/m? Objective Physical Exam Constitutional: He is well-developed, well-nourished, and in no distress. HENT: Head: Normocephalic and atraumatic. Right Ear: Tympanic membrane and external ear normal. Left Ear: Tympanic membrane, external ear and ear canal normal. Nose: Rhinorrhea present. Mouth/Throat: Uvula is midline, oropharynx is clear and moist and mucous membranes are normal. Right EAC red and swollen with exudate. TM normal. Cardiovascular: Normal rate, regular rhythm and normal heart sounds. Pulmonary/Chest: Effort normal and breath sounds normal. Lungs clear Neurological: He is alert. Skin: Skin is warm and dry. No rash noted. Psychiatric: Affect normal. Nursing note and vitals reviewed. ASSESSMENT/PLAN: 1. Acute otitis externa of right ear, unspecified type - ICD9: 380.10, ICD10: H60.501 (primary diagnosis) Will treat with ofloxacin. No swimming for one week. Discussed with patient concerning symptoms to go to the emergency department or follow up here. Pt agreeable with this plan. 2. Viral URI with cough - ICD9: 465.9, ICD10: J06.9, B97.89 - lungs are clear, symptoms for 4 days. Will treat with tessalon. If no better in one week or spikes fever be evaluated again. - Discussed viral etiology and rationale for treatment. - Symptomatic treatment with prn analgesia - Supportive care with fluids and rest Joanne Pan PA-C CNOV Observed: 02/20/2018 Status: COMPLETED Source: [place] 11:00 AM [facility] REPOSITORY Office Visit (WSTR) JARON MORSE ([id number]) 1980 M Date Time Provider Department 02/20/18 11:00 AM JOANNE PAN (VASILE) [facility] During your visit today, we recorded the following information about you: Temperature Pulse Respiration Blood pressure 97.8 degrees 88/minute 18/minute 114/80 Weight 101.6 kg Joanne Pan PA-C 02/20/2018 12:58 PM Signed Subjective HPI Pt presents cough x 4 days. Non productive. He does have seasonal allergies. His right ear has been bothering him as well. No fever or chills. No nvd. Denies recent swimming. He is having trouble hearing out of the right ear. No chest pain or shortness of breath. He si not a smoker. 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 Review of Systems Constitutional: Negative. Negative for chills and fever. HENT: Positive for congestion and ear pain. Negative for sore throat. Eyes: Negative. Respiratory: Positive for cough. Negative for sputum production, shortness of breath and wheezing. Cardiovascular: Negative. Gastrointestinal: Negative. Genitourinary: Negative. Musculoskeletal: Negative. Skin: Negative. All other systems reviewed and are negative. PAST MEDICAL HISTORY Diagnosis Date - Acute deep vein thrombosis (DVT) of right upper extremity (HCC) 03/19/15 Diagnosed during hospital admission; coumadin started - Acute embolism and thrombosis of deep vein of right upper extremity (HCC) 04/09/2015 - Acute gastritis without mention of hemorrhage 08/21/2012 - Allergic rhinitis - Anemia 03/07/2015 - Attention deficit disorder with hyperactivity(314.01) - Chronic renal failure Dr. 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 - Hand fracture 07/2012 right - Hemorrhage of gastrointestinal tract, unspecified 08/21/2012 - Hypernatremia 03/07/2015 - Incisional infection 02/04/16 - Nocturnal enuresis 04/28/2005 - OTHER MENTAL RETARDATION - MILD 02/07/2005 - Presence of suprapubic catheter ([facility]) Dr. Frias - Retention of urine, unspecified 08/20/2007 - Type I (juvenile type) diabetes mellitus without mention of complication, not stated as uncontrolled 02/04/2005 Dr. Olmedo Current Outpatient Prescriptions: insulin lispro (HUMALOG KWIKPEN INSULIN) 100 unit/mL inpn INJECT 5-8 UNITS SUBCUTANEOUSLY WITH MEALS AND USE PER SLIDING SCALE SCALE DIRECTED Disp: 5 Pen Rfl: 3 insulin glargine (LANTUS SOLOSTAR U-100 INSULIN) 100 unit/mL (3 mL) inpn 14 units in the AM and 10 units at HS Disp: 15 mL Rfl: 11 blood sugar diagnostic (BLOOD GLUCOSE TEST) test strip Test blood sugar(s) 8 times daily. Dx: Type 1 DM - Uncontrolled E10.69 Insulin: Yes Disp: 250 Strip Rfl: 11 Lancets lancets Test blood sugar(s) 8 times daily. Dx: Type 2 DM - Uncontrolled E11.65 Insulin: Yes Disp: 250 Each Rfl: 11 insulin needles, DISPOSABLE, (ULTICARE PEN NEEDLE) 31 gauge x 5/16 ndle Use to inject insulin 5 times daily. Disp: 150 Each Rfl: 11 ferrous sulfate 325 mg (65 mg iron) tablet Take 325 mg by mouth daily with breakfast. Disp: Rfl: Dextromethorphan-guaiFENesin (ROBITUSSIN DM) 10-200 mg/5 mL liqd Take 5-10 mL by mouth every 6 hours as needed. for cough Disp: 1 Bottle Rfl: 0 atorvastatin (LIPITOR) 10 mg tablet Take 0.5 tablets by mouth once daily. Disp: 15 tablet Rfl: 0 cholecalciferol (VITAMIN D3) 5,000 unit tab Take 1 tablet by mouth once daily. Disp: 30 tablet Rfl: 0 loratadine (CLARITIN) 10 mg tablet Take 1 tablet by mouth once daily. Disp: 30 tablet Rfl: 0 fluticasone (FLONASE) 50 mcg/actuation nasal spray USE 2 SPRAYS IN EACH NOSTRIL ONCE DAILY. RINSE MOUTH AFTER USE. Disp: 3 Bottle Rfl: 3 glucose 4 gram chewable tablet TAKE 4 TABLETS BY MOUTH NEEDED FOR LOW BLOOD SUGAR BELOW 70 Disp: 10 tablet Rfl: 11 apixaban (ELIQUIS) 2.5 mg tab tab(s) Take 1 tablet by mouth twice daily. Disp: 62 tablet Rfl: 1 FLUoxetine (PROZAC) 20 mg capsule Take 30 mg by mouth once daily. Disp: Rfl: polyethylene glycol 3350 (MIRALAX, GLYCOLAX) 17 gram/dose powder Mix 1 capful (17 GMS) in 8 oz of water and take by mouth 2 times daily (routine scheduled dosage) Disp: 527 g Rfl: 3 polyethylene glycol 3350 (MIRALAX, GLYCOLAX) 17 gram/dose powder Mix 1 capful (17 GMS) in 8 oz of water and take by mouth at 8 pm as 3rd dose if no BM by 8pm. Disp: 527 g Rfl: 3 RENACIDIN 6.602-3.268 gram/100 mL irrigation USE 30ML INTRAVESICALRY VIA URINARY CATHETER 3 TIMES DAILY CLAMP 30MIN THEN DRAIN Disp: 2700 mL Rfl: 3 carbamide peroxide (DEBROX) 6.5 % otic solution Use 5 Drops in both ears twice daily. for 5 days then discontinue Disp: 1 Bottle Rfl: 1 ketoconazole (NIZORAL) 2 % shampoo APPLY LATHER TO AFFECTED SKIN ON FACE AND RINSE OFF AFTER 2-5 MIN. USE DAILY NEEDED Disp: 120 mL Rfl: 0 melatonin 3 mg tablet TAKE 1 TABLET BY MOUTH DAILY AT BEDTIME Disp: 100 tablet Rfl: 0 ND-ACID GAS RELIEF 80 mg chewable tablet CHEW 1 TABLET BY MOUTH WITH MEALS AND AT BEDTIME Disp: 120 tablet Rfl: 11 Ascorbic Acid (VITAMIN C) 1,000 mg tablet Take 1 tablet by mouth once daily. Disp: 90 tablet Rfl: 3 aspirin, enteric coated (ASPIRIN, ENTERIC COATED) 81 mg EC tablet TAKE (1) TABLET BY MOUTH DAILY IN THE MORNING. Disp: 28 tablet Rfl: [address] (PROTONIX) 40 mg tablet TAKE 1 TABLET BY MOUTH ONCE DAILY 1/2 HR BEFORE BREAKFAST Disp: 28 tablet Rfl: 11 olopatadine (PAZEO) 0.7 % drop Use 1 Drop in eyes once daily. Disp: 2.5 mL Rfl: 11 metoprolol tartrate, short acting, (LOPRESSOR) 25 mg tablet TAKE (1/2) TABLET BY MOUTH TWICE DAILY. Disp: 31 tablet Rfl: 11 senna (SENNA LAX) 8.6 mg tab Take 1 tablet by mouth twice daily. Disp: 180 tablet Rfl: 3 oxybutynin (DITROPAN) 5 mg tablet Take 1 tablet by mouth as needed (once daily as needed for bladder spasms). Disp: 90 tablet Rfl: 4 albuterol HFA (PROVENTIL HFA, VENTOLIN HFA) 90 mcg/actuation inhaler Inhale 2 Puffs as instructed every 4 hours as needed. Disp: 1 Inhaler Rfl: 1 QUEtiapine (SEROQUEL) 200 mg tablet TAKE (1) TABLET BY MOUTH TWICE A DAY. Disp: 62 tablet Rfl: 1 QUEtiapine (SEROQUEL) 100 mg tablet TAKE 1 TABLET BY MOUTH ONCE DAILY AT 5 PM Disp: 31 tablet Rfl: 1 ammonium lactate (LAC-HYDRIN) 12 % cream Apply 1 application to affected area twice daily. Disp: 385 g Rfl: 3 COMPOUNDED PRESCRIPTION Please provide [facility] glucocard test strips to check blood sugar four to six Times a day Disp: 200 Strip Rfl: 3 bisacodyl (LAXATIVE, BISACODYL,) 10 mg supp 1 Suppository by RECTAL route once daily as needed. for constipation Disp: 20 Suppository Rfl: 12 docusate sodium (COLACE) 100 mg capsule Take 1 capsule by mouth twice daily as needed for Constipation. Disp: 60 capsule Rfl: 11 benzonatate (TESSALON PERLES) 100 mg capsule Take 2 capsules by mouth three times daily as needed. Disp: 30 capsule Rfl: 0 ofloxacin (FLOXIN) 0.3 % otic solution Use 5 Drops in the right ear twice daily. Disp: 1 Bottle Rfl: 0 glucagon, human recombinant, (GLUCAGON EMERGENCY KIT, HUMAN,) 1 mg injection Inject 1 mg intravenously one time only for 1 dose. Disp: 1 Each Rfl: 1 senna (SENNA) 8.6 mg tab Take 8.6 mg by mouth twice daily. Disp: Rfl: No current facility-administered medications for this visit. PAST SURGICAL HISTORY Procedure Laterality Date - APPENDECTOMY 2000 - AV FUSE, UPPR ARM, CEPHALIC 12/17/15 Transposition left upper arm cephalic vein to brachial artery arteriovenous fistula creation - COLONOSCOP W/ OR W/O BRSH SPEC 12/04/14 decompression for pseudoobstruction - COLONOSCOPY 08/21/2012 and EGD - EGD W/REM FB STOMACH/DUOD 01/02/2017 removal of PEG tube with EGD to remove fragment - EGD W/REM FB STOMACH/DUOD 12/2016 - IR VASCULAR ACCESS TEAM PICC REPOSITION 04/04/2015 - MIDLINE INSERTION/CONSULT 03/03/2015 - PAST SURGICAL HISTORY OF Laparotomy - PAST SURGICAL HISTORY OF 01/22/2015 negative exploratory laparotomy for pneumatosis intestinalis high grade bowel obstruction - PICC LINE INSERT/CONSULT 04/02/2015 - PICC LINE INSERT/CONSULT 04/03/2015 - SUPRAPUBIC CATHETER FAMILY HISTORY Problem Relation Age of Onset - other (unknown) Other - Diabetes Father Diabetic, unsure of which type, did not want to provide additional FH details. Social History Substance Use Topics - Smoking status: Never Smoker - Smokeless tobacco: Never Used - Alcohol use No BP 114/80 Pulse 88 Temp 36.6 ?C (97.8 ?F) (Tympanic) Resp 18 Wt 101.6 kg (224 lb) SpO2 96% BMI 38.45 kg/m? Objective Physical Exam Constitutional: He is well-developed, well-nourished, and in no distress. HENT: Head: Normocephalic and atraumatic. Right Ear: Tympanic membrane and external ear normal. Left Ear: Tympanic membrane, external ear and ear canal normal. Nose: Rhinorrhea present. Mouth/Throat: Uvula is midline, oropharynx is clear and moist and mucous membranes are normal. Right EAC red and swollen with exudate. TM normal. Cardiovascular: Normal rate, regular rhythm and normal heart sounds. Pulmonary/Chest: Effort normal and breath sounds normal. Lungs clear Neurological: He is alert. Skin: Skin is warm and dry. No rash noted. Psychiatric: Affect normal. Nursing note and vitals reviewed. ASSESSMENT/PLAN: 1. Acute otitis externa of right ear, unspecified type - ICD9: 380.10, ICD10: H60.501 (primary diagnosis) Will treat with ofloxacin. No swimming for one week. Discussed with patient concerning symptoms to go to the emergency department or follow up here. Pt agreeable with this plan. 2. Viral URI with cough - ICD9: 465.9, ICD10: J06.9, B97.89 - lungs are clear, symptoms for 4 days. Will treat with tessalon. If no better in one week or spikes fever be evaluated again. - Discussed viral etiology and rationale for treatment. - Symptomatic treatment with prn analgesia - Supportive care with fluids and rest Joanne Pan PA-C Referring Provider: SELF [[id number]] Allergies As of Date: 02/20/2018 Noted Allergy Reaction SEASONAL ALLERGIES 12/03/2012 14 - Other: See Comments Comments: Environmental-ragweed Date Reviewed: 02/20/2018 Reviewed by: Jia Cha LPN - Fully Assessed Reason for Visit: Ear Pain [817] Cmt: right ear pain AND cough X4 days Primary Visit Diagnosis:Acute otitis externa of right ear, unspecified type [H60.501] Other Visit Diagnosis:Viral URI with cough [J06.9, B97.89] Order(s):benzonatate (TESSALON PERLES) 100 mg capsuleTake 2 capsules by mouth three times daily as needed.Disp: 30 capsuleRfl: 0 ofloxacin (FLOXIN) 0.3 % otic solutionUse 5 Drops in the right ear twice daily.Disp: 1 BottleRfl: 0 Prescriptions as of 02/20/2018 Sig: INSULIN LISPRO (U-100) 100 UN* INJECT 5-8 UNITS SUBCUTANEOUS* INSULIN GLARGINE (U-100) 100 * 14 units in the AM and 10 uni* BLOOD SUGAR DIAGNOSTIC STRIPS Test blood sugar(s) 8 times d* LANCETS Test blood sugar(s) 8 times d* PEN NEEDLE, DIABETIC 31 GAUGE* Use to inject insulin 5 times* FERROUS SULFATE 325 MG (65 MG* Take 325 mg by mouth daily wi* DEXTROMETHORPHAN-GUAIFENESIN * Take 5-10 mL by mouth every 6* ATORVASTATIN 10 MG TABLET Take 0.5 tablets by mouth onc* CHOLECALCIFEROL (VITAMIN D3) * Take 1 tablet by mouth once d* LORATADINE 10 MG TABLET Take 1 tablet by mouth once d* FLUTICASONE 50 MCG/ACTUATION * USE 2 SPRAYS IN EACH NOSTRIL * GLUCOSE 4 GRAM CHEWABLE TABLET TAKE 4 TABLETS BY MOUTH NE* APIXABAN 2.5 MG TABLET Take 1 tablet by mouth twice * FLUOXETINE 20 MG CAPSULE Take 30 mg by mouth once jacquelin* POLYETHYLENE GLYCOL 3350 17 G* Mix 1 capful (17 GMS) in 8 oz* POLYETHYLENE GLYCOL 3350 17 G* Mix 1 capful (17 GMS) in 8 oz* RENACIDIN 6.602 GRAM-3.268 GR* USE 30ML INTRAVESICALRY VIA U* CARBAMIDE PEROXIDE 6.5 % EAR * Use 5 Drops in both ears twic* KETOCONAZOLE 2 % SHAMPOO APPLY LATHER TO AFFECTED SKIN* MELATONIN 3 MG TABLET TAKE 1 TABLET BY MOUTH DAILY * ND-ACID GAS RELIEF 80 MG CHEW* CHEW 1 TABLET BY MOUTH WITH M* ASCORBIC ACID (VITAMIN C) 1,0* Take 1 tablet by mouth once d* ASPIRIN 81 MG TABLET,DELAYED * TAKE (1) TABLET BY MOUTH JACQUELIN* PANTOPRAZOLE 40 MG TABLET,DEL* TAKE 1 TABLET BY MOUTH ONCE D* OLOPATADINE 0.7 % EYE DROPS Use 1 Drop in eyes once daily. METOPROLOL TARTRATE 25 MG TAB* TAKE (1/2) TABLET BY MOUTH TW* SENNOSIDES 8.6 MG TABLET Take 1 tablet by mouth twice * OXYBUTYNIN CHLORIDE 5 MG TABL* Take 1 tablet by mouth as nee* ALBUTEROL SULFATE HFA 90 MCG/* Inhale 2 Puffs as instructed * QUETIAPINE 200 MG TABLET TAKE (1) TABLET BY MOUTH TWIC* QUETIAPINE 100 MG TABLET TAKE 1 TABLET BY MOUTH ONCE D* AMMONIUM LACTATE 12 % TOPICAL* Apply 1 application to affect* COMPOUNDED PRESCRIPTION Please provide ARKKAY glucoca* BISACODYL 10 MG RECTAL SUPPOS* 1 Suppository by RECTAL route* DOCUSATE SODIUM 100 MG CAPSULE Take 1 capsule by mouth twice* BENZONATATE 100 MG CAPSULE Take 2 capsules by mouth thre* OFLOXACIN 0.3 % EAR DROPS Use 5 Drops in the right ear * GLUCAGON (HUMAN RECOMBINANT) * Inject 1 mg intravenously one* SENNOSIDES 8.6 MG TABLET Take 8.6 mg by mouth twice da* Problem List As Of Date 02/20/2018 Noted Resolved ATTN DEFICIT W HYPERACT [F90.9] INVALID FOR* Uncontrolled type 1 diabetes mellitus (HCC) [E1*INVALID FOR* HYDRONEPHROSIS [N13.30] INVALID FOR* 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 Allergic rhinitis [J30.9] DVT of left axillary vein, acute (HCC) [I82.A12]INVALID FOR* Prescriptions ordered this encounter Disp Refills Start End BENZONATATE 100 MG CAPSULE 30 c* 0 02/20/2018 Route: ORAL Sig: Take 2 capsules by mouth three times daily as needed. OFLOXACIN 0.3 % EAR DROPS 1 Vito* 0 02/20/2018 Route: RIGHT EAR Sig: Use 5 Drops in the right ear twice daily. Encounter Status:Closed by JOANNE PAN PA-C on 02/20/18 DISCHARGE INSTRUCTION Observed: 02/16/2018 Status: F Source: [place] 4:10 PM [facility] REPOSITORY [facility] Medical Records Department [address] [place] [address] Instructions for Home/Discharge Instructions 02/16/18 0843 MR#: [id number] Acct: [id number] Name: JARON MORSE Rep #: [id number] : 1980 38 From: Hugh Abreu MD PCP: Francine Clark MD Status: DEP [facility] Discharge Diet: Renal Diet Discharge Activity: May Not Drive - for 2-3 days or while taking narcotic pain medications., May Shower, May Take a Tub Bath - in 5 days. Lifting Restrictions: 5 pounds Keep extremity elevated above heart level: - - Keep arm elevated above the heart level for 3 days. Additional Activity Instructions:: Exercise hand vigorously with a stress ball. Call your doctor if your incision/area has: Continuous Slow Oozing, Sudden Increased Bleeding - apply pressure and call your doctor., Increased Pain/ Swelling, Increased Redness, Foul Smelling Discharge Call your doctor if you observe: Fever of 101 or Higher Suture Line Care: Avoid Pulling/Pushing, Avoid Pinching/Bending Cleanse incision/area with: Keep Dressing Clean AND Dry Additional Dressing/Incision Instructions:: Change or remove dressing in one day. May protect with a gauze bandaid. Allergies/Adverse Reactions: Allergies No Known Allergies Allergy (Verified 01/25/18 08:04) Medications to take at Discharge Ascorbic Acid [Vitamin C] 1,000 mg PO DAILY 02/21/15 Aspirin [Aspirin, Baby] 81 mg PO DAILY 02/21/15 Fluoxetine [Prozac] 30 mg PO DAILY 02/21/15 Quetiapine Fumarate [Seroquel] 100 mg PO 1700 02/21/15 Quetiapine Fumarate [Seroquel] 200 mg PO BID 02/21/15 Loratadine [Claritin] 10 mg PO DAILY 07/08/15 Melatonin 3 mg PO QHS 12/09/15 Insulin Lispro [Humalog Kwikpen] 4 unit SQ LUNCH 08/29/16 Atorvastatin Calcium 5 mg PO QHS 11/07/16 Pantoprazole Sodium [Protonix] 40 mg PO DAILY 11/07/16 Sennosides [Senna] 8.6 mg PO BID 12/29/16 Metoprolol Tartrate 12.5 mg PO BID 05/20/17 Oxybutynin [Ditropan] 5 mg PO DAILY PRN 05/20/17 Fluticasone Propionate [Flovent Diskus] 2 spray NARES DAILY 11/30/17 Olopatadine HCl [Pazeo] 1 drp EACH EYE DAILY 11/30/17 acetaminophen 325 mg tablet 650 mg PO Q8H PRN tab 12/13/17 albuterol sulfate HFA 90 mcg/actuation aerosol inhaler 2 puff INHALATION Q4H PRN 12/13/17 ketoconazole 2 % shampoo 1 applic TOPICAL Q2W PRN 12/13/17 Insulin Lispro [Humalog] 8 unit SQ BREAKFAST 12/24/17 Insulin Lispro [Humalog] 8 unit SQ DINNER 12/24/17 Cholecalciferol (Vitamin D3) [Vitamin D3] 5,000 unit PO DAILY 01/09/18 Ferrous Sulfate [Iron] 2 tab PO DAILY 01/09/18 Insulin Glargine [Lantus (BKC)] 10 units SC QHS 02/09/18 Insulin Glargine,Hum.rec.anlog [Lantus Solostar] 14 unit SQ DAILY 02/09/18 Polyethylene Glycol 3350 [Miralax] 17 gm PO BID 02/09/18 Hydrocodone Bitart/Apap 5-325 [[place] 5MG-325MG] 1 tablet PO Q6H PRN PRN 3 Days #5 tablet 02/16/18 The following prescriptions were given: Hydrocodone Bitart/Apap 5-325 [[place] 5MG-325MG] 1 tablet PO Q6H PRN PRN 3 Days #5 tablet PRN Reason: Pain Primary Care Physician: Francine Clark MD [Primary Care Provider] - Test Results: Test results from this visit will be discussed in further detail at your follow-up appointment, if applicable. Please Follow Up With: Hugh Abreu MD - [phone] When: Call to make an appointment for suture removal and follow up in 1 week. 02/16/18 1610 <Electronically signed by Hugh Abreu MD> Date Hugh Abreu MD CC: Francine Clark MD BEDSIDE GLUCOSE Collected: 02/16/2018 Status: F Source: GREG 2:04 PM [facility] REPOSITORY TYPE CODE TESTS RESULT OUT OF REFERENCE UNITS RANGE LAB L501.080 70-110 mg/dL High BEDSIDE GLU 141 Result Comment: MANAGEMENT OF PATIENT CARE PER NURSING PROTOCOL Performed By: #### L501.080 #### [facility] Laboratory Point of Care [address] [place], [place] [address] BEDSIDE GLUCOSE Collected: 02/16/2018 Status: F Source: [place] 11:14 AM [facility] REPOSITORY TYPE CODE TESTS RESULT OUT OF REFERENCE UNITS RANGE LAB L501.080 70-110 mg/dL High BEDSIDE GLU 154 Result Comment: MANAGEMENT OF PATIENT CARE PER NURSING PROTOCOL Performed By: #### L501.080 #### [facility] Laboratory Point of Care [address] [place] [address] OPERATIVE REPORT Observed: 02/16/2018 Status: F Source: [place] 10:32 AM [facility] REPOSITORY [facility] Medical Records Department [address] [place] [address] Operative Report 02/16/18 1029 MR#: [id number] Acct: [id number] Name: JARON MORSE Rep #: [id number] : 1980 38 From: Hugh Abreu MD PCP: Francine Clark MD Status: REG [facility] Y Location: [place] [address] Problem List (1) Problem with dialysis access Status: Acute Qualifiers: Encounter type: subsequent encounter Report of Operation Date of Procedure: 02/16/18 Pre-Operative Diagnosis: Thrombosed left upper extremity AV fistula Post-Operative Diagnosis: Same Surgery/Procedure Performed:: Stage I right forearm radial to cephalic arteriovenous fistula creation Description of Surgical Findings:: Timeout and informed consent was obtained. 38-year-old gentleman was taken out from. He was placed upon the table. He underwent monitored anesthesia care local anesthetic. The right upper extremity was sterilely prepped draped. I did perform ultrasound identifying the course of the cephalic vein at the wrist. 1% lidocaine mixed 50- 50 with 0.5% Marcaine was used as local anesthetic. Throughout the procedure total of 13 cc was used. A slightly oblique incision was created at the wrist sharp and blunt dissection was used to identify the cephalic vein. It was dissected free distally and proximally. Side branches were secured with hemoclips. Then dissection was performed medially. The radial artery was identified and circumferential control was obtained. The patient received 8000 units of heparin. The vein was ligated distally with a Hemoclip. The vein was irrigated and carefully spatulated. Peripheral vascular clamps were placed on the radial artery. A 11 blade was used to make an arteriotomy which was extended with [place] scissors. The vein was spatulated and a end-to-side anastomosis was created with running 7-0 Prolene. There appear to be adequate antegrade and retrograde flow. Upon completion Doppler signal detected good flow. Hemostasis was intact. The wound was closed in layers with interrupted 4-0 Vicryl subcu dermal stitches and then a running septic or 4-0 Monocryl. Steri-Strips Telfa and OpSite dressings applied. Sponge and instrument and needle counts were reported the surgeon be correct. Blood loss was minimal. He tolerated the procedure well and was taken to the recovery area in sagittal condition without apparent complication. Specimens none. Drains none. Blood loss minimal. Hugh Abreu M.D., F.A.C.S. Type of Anesthesia:: Local MAC Anesthesiologist: Herrera Singer 02/16/18 1032 <Electronically signed by Hugh Abreu MD> Date Hugh Abreu MD CC: Francine Clark MD; Hugh Abreu MD Signed CBC-COMPLETE BLOOD CNT Collected: 02/16/2018 Status: F Source: GREG NO DIFF 7:00 AM [facility] REPOSITORY TYPE CODE TESTS RESULT OUT OF RANGE REFERENCE UNITS LAB L100.1000 4.4-11.0 K/mm3 Normal WBC 7.1 LAB L100.1200 4.6-6.2 M/mm3 Low RBC 3.90 LAB L100.1300 13.0-16.5 g/dl Low HGB 12.6 LAB L100.1400 40-54 % Low HCT 37.4 LAB L100.1500 80-94 fL High MCV 95.9 LAB L100.1600 27.0-32.0 pg High MCH 32.3 LAB L100.1700 32-36 g/gl Normal MCHC 33.7 LAB L100.1810 11.6-14.6 % Normal RDW CV 12.5 LAB L100.1820 35.1-43.9 fl Normal RDW SD 42.7 LAB L100.1900 150-450 K/mm3 Normal PLT 184 LAB L100.2000 6.2-12.0 fl Normal MPV 10.3 Performed By: #### L100.0500, L500.2500 #### [facility] [address] [place], [place], [address] BASIC METABOLIC Collected: 02/16/2018 Status: F Source: GREG PROFILE (BMP) 7:00 AM [facility] REPOSITORY TYPE CODE TESTS RESULT OUT OF RANGE REFERENCE UNITS LAB L501.0100 74-106 mg/dL High GLU 189 Result Comment: Fasting Glucose result greater than or equal to 126 mg/dL suggests DIABETES MELLITUS per A.D.A. criteria. Please note revised GLUCOSE reference range effective 2017. LAB L501.1000 7-18 mg/dL High BUN 68 LAB L501.1100 0.70-1.30 mg/dL High CREAT,SERUM 3.96 Result Comment: The validity of the calculated GFR AND GFRAA in patients over 70 years has not been determined. Clinical correlation is essential. LAB L501.1110 >60 mL/min Low EST GFR 18 Result Comment: Non- GFR Calc LAB L501.1115 >60 mL/min Low EST GFR - AA 22 Result Comment: GFR Calc LAB L501.1255 ml/min Normal Estimated CRCL 21.59 LAB L501.1300 10-20 RATIO Normal BUN/CRE 17.2 LAB L501.2200 8.5-10 mg/dL Normal .1 CA 8.8 LAB L501.5300 136-14 mmol/L Normal 5 NA 140 LAB L501.5600 3.5-5. mmol/L Normal 1 K 4.9 LAB L501.5900 98-107 mmol/L Normal CL 104 LAB L501.6100 21.0-3 mmol/L Normal 2.0 CO2 26.0 LAB L501.6200 5-15 Normal GAP 10 Performed By: #### L100.0500, L500.2500 #### [facility] [address] [place], [place], [address] BEDSIDE GLUCOSE Collected: 02/16/2018 Status: F Source: GREG 6:59 AM [facility] REPOSITORY TYPE CODE TESTS RESULT OUT OF REFERENCE UNITS RANGE LAB L501.080 70-110 mg/dL High BEDSIDE GLU 208 Result Comment: MANAGEMENT OF PATIENT CARE PER NURSING PROTOCOL Performed By: #### L501.080 #### [facility] Laboratory Point [place] [address] PROGRESS Observed: 02/06/2018 Status: COMPLETED Source: [place] 1:43 PM [facility] REPOSITORY HNO ID: [id number] Author: Georgi (Document Controller) Jesus Service: (none) Author Type: Nurse Specialist Type: Progress Notes Filed: 02/06/2018 2:31 PM Note Text: OUTPATIENT VISIT DATE February 06, 2018 OUTPATIENT VISIT TYPE ESTABLISHED PRIMARY CARE PHYSICIAN: Francine Clark MD CHIEF COMPLAINT: Patient presents with: 2 month f/u History of Present Illness: Jaron Morse is a 38 year old male who was last seen 11/[address] Gallo, hospital follow up. He has been seen in the past for ACTIVE PROBLEM LIST Attention Deficit Disorder With Hyperactivity(314.01) Uncontrolled Type 1 Diabetes Mellitus (Hcc) Hydronephrosis Mild Intellectual Disabilities Suprapubic Catheter (Hcc) Ckd (Chronic Kidney Disease) Stage 4, Gfr 15-29 Ml/Min (Hcc) Generalized Dysmotility of Intestine Nephrogenic Diabetes Insipidus (Hcc) Seborrheic Dermatitis Allergic Rhinitis Dvt of Left Axillary Vein, Acute ([facility]) Presents with caregiver who helps provide history. Since the last visit, he states that he has noted a productive cough since last . No known fever. No headache or nasal congestion or ear pain reported. Reports increased fluid intake, increase water, continues with coffee. DIABETES MELLITUS: Without report of excessive thirst or increased frequency of urination, chest pain or dyspnea , numbness, tingling or pain in extremities, new or unusual visual symptoms, low sugar/hypoglycemic reactions, weight loss/gain, lightheadedness/dizziness and bowel changes/loose stools. Consistently taking medication. No noted adverse effects. Reports checking blood sugars more frequently however did not bring blood sugars with him to his appointment. He reports checking his glucose 4-5 times a day now. Patient's last HgA1C was Hemoglobin A1C (%) Date Value 11/10/2017 7.5 03/15/2017 8.7 ) Seen by Dr. Feliciano, had adjustment of insulin dose. Increased checking of BS advised. Patient to take Lantus 14 units in the AM and 10 units at HS. Seen by Dr. Huddleston in [facility] 12/2017 for constipation, advised increased fluid intake. Without complaint today regarding constipation. No recent hospital or ED visits. No new medical problems or medications. Able to obtain medications. No problems with taking medications or note side effects. PAST MEDICAL HISTORY Diagnosis Date - Acute deep vein thrombosis (DVT) of right upper extremity (HCC) 03/19/15 Diagnosed during hospital admission; coumadin started - Acute embolism and thrombosis of deep vein of right upper extremity (HCC) 04/09/2015 - Acute gastritis without mention of hemorrhage 08/21/2012 - Allergic rhinitis - Anemia 03/07/2015 - Attention deficit disorder with hyperactivity(314.01) - Chronic renal failure Dr. 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 - Hand fracture 07/2012 right - Hemorrhage of gastrointestinal tract, unspecified 08/21/2012 - Hypernatremia 03/07/2015 - Incisional infection 02/04/16 - Nocturnal enuresis 04/28/2005 - OTHER MENTAL RETARDATION - MILD 02/07/2005 - Presence of suprapubic catheter ([facility]) Dr. Frias - Retention of urine, unspecified 08/20/2007 - Type I (juvenile type) diabetes mellitus without mention of complication, not stated as uncontrolled 02/04/2005 Dr. Olmedo PAST SURGICAL HISTORY Procedure Laterality Date - APPENDECTOMY 2000 - AV FUSE, UPPR ARM, CEPHALIC 12/17/15 Transposition left upper arm cephalic vein to brachial artery arteriovenous fistula creation - COLONOSCOP W/ OR W/O [facility] SPEC 12/04/14 decompression for pseudoobstruction - COLONOSCOPY 08/21/2012 and EGD - EGD W/REM FB STOMACH/DUOD 01/02/2017 removal of PEG tube with EGD to remove fragment - EGD W/REM FB STOMACH/DUOD 12/2016 - IR VASCULAR ACCESS TEAM PICC REPOSITION 04/04/2015 - MIDLINE INSERTION/CONSULT 03/03/2015 - PAST SURGICAL HISTORY OF Laparotomy - PAST SURGICAL HISTORY OF 01/22/2015 negative exploratory laparotomy for pneumatosis intestinalis high grade bowel obstruction - PICC LINE INSERT/CONSULT 04/02/2015 - PICC LINE INSERT/CONSULT 04/03/2015 - SUPRAPUBIC CATHETER FAMILY HISTORY Problem Relation Age of Onset - other (unknown) Other - Diabetes Father Diabetic, unsure of which type, did not want to provide additional FH details. Social History Substance Use Topics - Smoking status: Never Smoker - Smokeless tobacco: Never Used - Alcohol use No ALLERGIES: ALLERGIES Allergen Reactions - Seasonal Allergies Other: See Comments Environmental-ragweed MEDICATIONS ferrous sulfate 325 mg (65 mg iron) tablet Take 325 mg by mouth daily with breakfast. atorvastatin (LIPITOR) 10 mg tablet Take 0.5 tablets by mouth once daily. cholecalciferol (VITAMIN D3) 5,000 unit tab Take 1 tablet by mouth once daily. loratadine (CLARITIN) 10 mg tablet Take 1 tablet by mouth once daily. fluticasone (FLONASE) 50 mcg/actuation nasal spray USE 2 SPRAYS IN EACH NOSTRIL ONCE DAILY. RINSE MOUTH AFTER USE. senna (SENNA) 8.6 mg tab Take 8.6 mg by mouth twice daily. glucose 4 gram chewable tablet TAKE 4 TABLETS BY MOUTH NEEDED FOR LOW BLOOD SUGAR BELOW 70 apixaban (ELIQUIS) 2.5 mg tab tab(s) Take 1 tablet by mouth twice daily. glucagon, human recombinant, (GLUCAGON EMERGENCY KIT, HUMAN,) 1 mg injection Inject 1 mg intravenously one time only. FLUoxetine (PROZAC) 20 mg capsule Take 30 mg by mouth once daily. insulin glargine (LANTUS SOLOSTAR U-100 INSULIN) 100 unit/mL (3 mL) inpn 14 units in the AM and 10 units at HS polyethylene glycol 3350 (MIRALAX, GLYCOLAX) 17 gram/dose powder Mix 1 capful (17 GMS) in 8 oz of water and take by mouth 2 times daily (routine scheduled dosage) polyethylene glycol 3350 (MIRALAX, GLYCOLAX) 17 gram/dose powder Mix 1 capful (17 GMS) in 8 oz of water and take by mouth at 8 pm as 3rd dose if no BM by 8pm. ULTICARE PEN NEEDLE 31 gauge x 11/01 ndle TAKE FIVE- SIX INJECTIONS DAILY INSTRUCTED RENACIDIN 6.602-3.268 gram/100 mL irrigation USE 30ML INTRAVESICALRY VIA URINARY CATHETER 3 TIMES DAILY CLAMP 30MIN THEN DRAIN carbamide peroxide (DEBROX) 6.5 % otic solution Use 5 Drops in both ears twice daily. for 5 days then discontinue insulin lispro (HUMALOG KWIKPEN INSULIN) 100 unit/mL inpn Inject 6 Units subcutaneously w MEALS. And additional sliding scale as instructed TDD: 30 currently 8 units subcutaneous at breakfast and supper, sliding scale 3 times a day before meals ketoconazole (NIZORAL) 2 % shampoo APPLY LATHER TO AFFECTED SKIN ON FACE AND RINSE OFF AFTER 2-5 MIN. USE DAILY NEEDED melatonin 3 mg tablet TAKE 1 TABLET BY MOUTH DAILY AT BEDTIME ND-ACID GAS RELIEF 80 mg chewable tablet CHEW 1 TABLET BY MOUTH WITH MEALS AND AT BEDTIME Ascorbic Acid (VITAMIN C) 1,000 mg tablet Take 1 tablet by mouth once daily. aspirin, enteric coated (ASPIRIN, ENTERIC COATED) 81 mg EC tablet TAKE (1) TABLET BY MOUTH DAILY IN THE MORNING. pantoprazole DR (PROTONIX) 40 mg tablet TAKE 1 TABLET BY MOUTH ONCE DAILY 1/2 HR BEFORE BREAKFAST olopatadine (PAZEO) 0.7 % drop Use 1 Drop in eyes once daily. metoprolol tartrate, short acting, (LOPRESSOR) 25 mg tablet TAKE (1/2) TABLET BY MOUTH TWICE DAILY. senna (SENNA LAX) 8.6 mg tab Take 1 tablet by mouth twice daily. Lancets lancets Test blood sugar(s) 8 times daily. Dx: Type 2 DM - Uncontrolled E11.65 Insulin: Yes blood sugar diagnostic (BLOOD GLUCOSE TEST) test strip Test blood sugar(s) 8 times daily. Dx: Type 1 DM - Uncontrolled E10.69 Insulin: Yes oxybutynin (DITROPAN) 5 mg tablet Take 1 tablet by mouth as needed (once daily as needed for bladder spasms). albuterol HFA (PROVENTIL HFA, VENTOLIN HFA) 90 mcg/actuation inhaler Inhale 2 Puffs as instructed every 4 hours as needed. QUEtiapine (SEROQUEL) 200 mg tablet TAKE (1) TABLET BY MOUTH TWICE A DAY. QUEtiapine (SEROQUEL) 100 mg tablet TAKE 1 TABLET BY MOUTH ONCE DAILY AT 5 PM ammonium lactate (LAC-HYDRIN) 12 % cream Apply 1 application to affected area twice daily. COMPOUNDED PRESCRIPTION Please provide [facility] glucocard test strips to check blood sugar four to six Times a day bisacodyl (LAXATIVE, BISACODYL,) 10 mg supp 1 Suppository by RECTAL route once daily as needed. for constipation docusate sodium (COLACE) 100 mg capsule Take 1 capsule by mouth twice daily as needed for Constipation. Dextromethorphan-guaiFENesin (ROBITUSSIN DM) 10-200 mg/5 mL liqd Take 5-10 mL by mouth every 6 hours as needed. for cough azithromycin (ZITHROMAX Z-THAIS) 250 mg tablet Take 2 tablets day one, then, 1 tablet daily until gone. Take with food in a.m. REVIEW OF SYSTEMS: GENERAL: Negative for: Weight loss or gain, Fever or Chills, Weakness and Sleep difficulties. Physical Examination: BP 102/60 Pulse 92 Temp 97.7 Resp 16 Wt 224 lb (101.6kg) SpO2 93% General appearance: Well appearing, alert, in no acute distress, overweight, well-hydrated. seated in wheelchair. Skin: Skin color, texture, turgor normal, no suspicious rashes or lesions Head: Normocephalic, no masses, lesions, tenderness or abnormalities Ears: External ears normal, canals with some cerumen, not occluded, TM's normal Nose/Sinuses: Nares normal, septum midline, mucosa normal, no drainage or sinus tenderness Oropharynx: Lips, mucosa, and tongue normal, teeth and gums normal, oropharynx normal Neck: Supple, no adenopathy; thyroid symmetric, normal size, no bruits Lungs: Lungs clear to auscultation. No wheezing, rhonchi, rales Heart: RRR without murmur, gallop, or rubs. GI/: SP catheter in place, draining clear yellow urine, Abdomen soft, non-tender. Bowel sounds normal. No masses, organomegaly Extremities: No edema, skin discoloration, clubbing or cyanosis. Good capillary refill. Peripheral pulses: Normal Neuro: Gait normal.. Sensation grossly intact. Reviewed chart, outside records, tests I personally interviewed, confirmed and edited the above information if obtained by others. TESTING: Glucose (mg/dL) Date Value 12/26/2017 233 Potassium (mmol/L) Date Value 12/26/2017 5.5 Sodium (mmol/L) Date Value 12/26/2017 141 Chloride (mmol/L) Date Value 12/26/2017 100 CO2 (mmol/L) Date Value 12/26/2017 23 Creatinine (mg/dL) Date Value 12/26/2017 3.76 BUN (mg/dL) Date Value 12/26/2017 57 Anion Gap (mmol/L) Date Value 12/26/2017 18 Calcium (mg/dL) Date Value 12/26/2017 9.5 Glucose (mg/dL) Date Value 12/26/2017 233 Potassium (mmol/L) Date Value 12/26/2017 5.5 Sodium (mmol/L) Date Value 12/26/2017 141 Chloride (mmol/L) Date Value 12/26/2017 100 CO2 (mmol/L) Date Value 12/26/2017 23 Creatinine (mg/dL) Date Value 12/26/2017 3.76 BUN (mg/dL) Date Value 12/26/2017 57 Anion Gap (mmol/L) Date Value 12/26/2017 18 Calcium (mg/dL) Date Value 12/26/2017 9.5 Protein, Total (g/dL) Date Value 12/26/2017 8.7 12/26/2017 8.8 Albumin (g/dL) Date Value 12/26/2017 4.3 Bilirubin, Total (mg/dL) Date Value 12/26/2017 0.3 Alkaline Phosphatase (U/L) Date Value 12/26/2017 87 AST (U/L) Date Value 12/26/2017 22 ALT (U/L) Date Value 12/26/2017 23 Hemoglobin (g/dL) Date Value 12/26/2017 13.8 Hematocrit (%) Date Value 12/26/2017 42.7 WBC (k/uL) Date Value 12/26/2017 6.96 Cholesterol, Total (mg/dL) Date Value 03/15/2017 126 HDL Cholesterol (mg/dL) Date Value 03/15/2017 26 LDL Cholesterol (mg/dL) Date Value 03/15/2017 51 Triglyceride (mg/dL) Date Value 03/15/2017 245 Hemoglobin A1C Date Value Ref Range Status 11/10/2017 7.5 (H) 4.3 - 5.6 % Final 03/15/2017 8.7 (H) 4.3 - 5.6 % Final Comment: [place] [employer] guidelines indicate that patients with HgbA1c in the range 5.7-6.4% are at increased risk for development of diabetes, and intervention by lifestyle modification may be beneficial. HgbA1c greater or equal to 6.5% is considered diagnostic of diabetes. 11/18/2016 8.8 (H) 4.3 - 5.6 % Final Comment: [place] [employer] guidelines indicate that patients with HgbA1c in the range 5.7-6.4% are at increased risk for development of diabetes, and intervention by lifestyle modification may be beneficial. HgbA1c greater or equal to 6.5% is considered diagnostic of diabetes. 08/09/2016 9.1 (H) 4.3 - 5.6 % Final Comment: [place] [employer] guidelines indicate that patients with HgbA1c in the range 5.7-6.4% are at increased risk for development of diabetes, and intervention by lifestyle modification may be beneficial. HgbA1c greater or equal to 6.5% is considered diagnostic of diabetes. 03/14/2016 9.5 (H) 4.3 - 5.6 % Final Comment: [place] [employer] guidelines indicate that patients with HgbA1c in the range 5.7-6.4% are at increased risk for development of diabetes, and intervention by lifestyle modification may be beneficial. HgbA1c greater or equal to 6.5% is considered diagnostic of diabetes. Ejection Fraction - Result: 58 % Date: 03/30/2015 Time: 10:48:46 IMPRESSION: Mr. Morse is a 38 year old man presents for routine follow up After my examination and review of data, I make the following recommendations. PLAN AND RECOMMENDATIONS: 1. Constipation, unspecified constipation type - ICD9: 564.00, ICD10: K59.00 (primary diagnosis) Reports improved, increased fluid intake 2. Acute bronchitis, unspecified organism - ICD9: 466.0, ICD10: J20.9 - DEXTROMETHORPHAN-GUAIFENESIN 10 MG-200 MG/5 ML ORAL LIQUID - AZITHROMYCIN 250 MG TABLET 3. Anemia, unspecified type - ICD9: 285.9, ICD10: D64.9 Appears anemia has resolved with treatment 4. Uncontrolled type 1 diabetes mellitus with other specified complication (HCC) - ICD9: 250.83, ICD10: E10.69, E10.65 Improving control, following with Dr. Feliciano, endocrinology Did not bring BS readings to visit Continue with plan per Dr. Feliciano's recommendations - HGB A1C - COMP METABOLIC PANEL 5. Hyperlipidemia, unspecified hyperlipidemia type - ICD9: 272.4, ICD10: E78.5 - LIPID PANEL BASIC - COMP METABOLIC PANEL Keep scheduled follow up with Francine Clark MD. Advised to go to ER if develops chest pain, shortness of breath, or severe worsening of symptoms. Discussed risks, benefits, alternatives, and potential side effects of medications. Mr. Morse expressed understanding and agreed with the plan. Georgi Lee APRN.PERSONNEL MONITOR CNOV Observed: 02/06/2018 Status: COMPLETED Source: [place] 1:40 PM [facility] REPOSITORY Office Visit (INTMWS) JARON MORSE ([id number]) 1980 M Date Time Provider Department 02/06/18 1:40 PM GEORGI LEE ([facility]) INTMWS During your visit today, we recorded the following information about you: Temperature Pulse Respiration Blood pressure 97.7 degrees 92/minute 16/minute 102/60 Weight 101.6 kg Georgi Lee APRN.CNS 02/06/2018 2:31 PM Signed OUTPATIENT VISIT DATE February 06, 2018 OUTPATIENT VISIT TYPE ESTABLISHED PRIMARY CARE PHYSICIAN: Francine Clark MD CHIEF COMPLAINT: Patient presents with: 2 month f/u History of Present Illness: Jaron Morse is a 38 year old male who was last seen 11/[address] Gallo, hospital follow up. 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 Since the last visit, he states that he has noted a productive cough since last . No known fever. No headache or nasal congestion or ear pain reported. Reports increased fluid intake, increase water, continues with coffee. DIABETES MELLITUS: Without report of excessive thirst or increased frequency of urination, chest pain or dyspnea , numbness, tingling or pain in extremities, new or unusual visual symptoms, low sugar/hypoglycemic reactions, weight loss/gain, lightheadedness/dizziness and bowel changes/loose stools. Consistently taking medication. No noted adverse effects. Reports checking blood sugars more frequently however did not bring blood sugars with him to his appointment. He reports checking his glucose 4-5 times a day now. Patient's last HgA1C was Hemoglobin A1C (%) Date Value 11/10/2017 7.5 03/15/2017 8.7 ) Seen by Dr. Feliciano, had adjustment of insulin dose. Increased checking of BS advised. Patient to take Lantus 14 units in the AM and 10 units at HS. Seen by Dr. Huddleston in [facility] 12/2017 for constipation, advised increased fluid intake. Without complaint today regarding constipation. No recent hospital or ED visits. No new medical problems or medications. Able to obtain medications. No problems with taking medications or note side effects. PAST MEDICAL HISTORY Diagnosis Date - Acute deep vein thrombosis (DVT) of right upper extremity (HCC) 03/19/15 Diagnosed during hospital admission; coumadin started - Acute embolism and thrombosis of deep vein of right upper extremity (HCC) 04/09/2015 - Acute gastritis without mention of hemorrhage 08/21/2012 - Allergic rhinitis - Anemia 03/07/2015 - Attention deficit disorder with hyperactivity(314.01) - Chronic renal failure Dr. 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 - Hand fracture 07/2012 right - Hemorrhage of gastrointestinal tract, unspecified 08/21/2012 - Hypernatremia 03/07/2015 - Incisional infection 02/04/16 - Nocturnal enuresis 04/28/2005 - OTHER MENTAL RETARDATION - MILD 02/07/2005 - Presence of suprapubic catheter ([facility]) Dr. Frias - Retention of urine, unspecified 08/20/2007 - Type I (juvenile type) diabetes mellitus without mention of complication, not stated as uncontrolled 02/04/2005 Dr. Olmedo PAST SURGICAL HISTORY Procedure Laterality Date - APPENDECTOMY 2000 - AV FUSE, UPPR ARM, CEPHALIC 12/17/15 Transposition left upper arm cephalic vein to brachial artery arteriovenous fistula creation - COLONOSCOP W/ OR W/O [facility] SPEC 12/04/14 decompression for pseudoobstruction - COLONOSCOPY 08/21/2012 and EGD - EGD W/REM FB STOMACH/DUOD 01/02/2017 removal of PEG tube with EGD to remove fragment - EGD W/REM FB STOMACH/DUOD 12/2016 - IR VASCULAR ACCESS TEAM PICC REPOSITION 04/04/2015 - MIDLINE INSERTION/CONSULT 03/03/2015 - PAST SURGICAL HISTORY OF Laparotomy - PAST SURGICAL HISTORY OF 01/22/2015 negative exploratory laparotomy for pneumatosis intestinalis high grade bowel obstruction - PICC LINE INSERT/CONSULT 04/02/2015 - PICC LINE INSERT/CONSULT 04/03/2015 - SUPRAPUBIC CATHETER FAMILY HISTORY Problem Relation Age of Onset - other (unknown) Other - Diabetes Father Diabetic, unsure of which type, did not want to provide additional FH details. Social History Substance Use Topics - Smoking status: Never Smoker - Smokeless tobacco: Never Used - Alcohol use No ALLERGIES: ALLERGIES Allergen Reactions - Seasonal Allergies Other: See Comments Environmental-ragweed MEDICATIONS ferrous sulfate 325 mg (65 mg iron) tablet Take 325 mg by mouth daily with breakfast. atorvastatin (LIPITOR) 10 mg tablet Take 0.5 tablets by mouth once daily. cholecalciferol (VITAMIN D3) 5,000 unit tab Take 1 tablet by mouth once daily. loratadine (CLARITIN) 10 mg tablet Take 1 tablet by mouth once daily. fluticasone (FLONASE) 50 mcg/actuation nasal spray USE 2 SPRAYS IN EACH NOSTRIL ONCE DAILY. RINSE MOUTH AFTER USE. senna (SENNA) 8.6 mg tab Take 8.6 mg by mouth twice daily. glucose 4 gram chewable tablet TAKE 4 TABLETS BY MOUTH NEEDED FOR LOW BLOOD SUGAR BELOW 70 apixaban (ELIQUIS) 2.5 mg tab tab(s) Take 1 tablet by mouth twice daily. glucagon, human recombinant, (GLUCAGON EMERGENCY KIT, HUMAN,) 1 mg injection Inject 1 mg intravenously one time only. FLUoxetine (PROZAC) 20 mg capsule Take 30 mg by mouth once daily. insulin glargine (LANTUS SOLOSTAR U-100 INSULIN) 100 unit/mL (3 mL) inpn 14 units in the AM and 10 units at HS polyethylene glycol 3350 (MIRALAX, GLYCOLAX) 17 gram/dose powder Mix 1 capful (17 GMS) in 8 oz of water and take by mouth 2 times daily (routine scheduled dosage) polyethylene glycol 3350 (MIRALAX, GLYCOLAX) 17 gram/dose powder Mix 1 capful (17 GMS) in 8 oz of water and take by mouth at 8 pm as 3rd dose if no BM by 8pm. ULTICARE PEN NEEDLE 31 gauge x 16 ndle TAKE FIVE- SIX INJECTIONS DAILY INSTRUCTED RENACIDIN 6.602-3.268 gram/100 mL irrigation USE 30ML INTRAVESICALRY VIA URINARY CATHETER 3 TIMES DAILY CLAMP 30MIN THEN DRAIN carbamide peroxide (DEBROX) 6.5 % otic solution Use 5 Drops in both ears twice daily. for 5 days then discontinue insulin lispro (HUMALOG KWIKPEN INSULIN) 100 unit/mL inpn Inject 6 Units subcutaneously w MEALS. And additional sliding scale as instructed TDD: 30 currently 8 units subcutaneous at breakfast and supper, sliding scale 3 times a day before meals ketoconazole (NIZORAL) 2 % shampoo APPLY LATHER TO AFFECTED SKIN ON FACE AND RINSE OFF AFTER 2-5 MIN. USE DAILY NEEDED melatonin 3 mg tablet TAKE 1 TABLET BY MOUTH DAILY AT BEDTIME ND-ACID GAS RELIEF 80 mg chewable tablet CHEW 1 TABLET BY MOUTH WITH MEALS AND AT BEDTIME Ascorbic Acid (VITAMIN C) 1,000 mg tablet Take 1 tablet by mouth once daily. aspirin, enteric coated (ASPIRIN, ENTERIC COATED) 81 mg EC tablet TAKE (1) TABLET BY MOUTH DAILY IN THE MORNING. pantoprazole DR (PROTONIX) 40 mg tablet TAKE 1 TABLET BY MOUTH ONCE DAILY 1/2 HR BEFORE BREAKFAST olopatadine (PAZEO) 0.7 % drop Use 1 Drop in eyes once daily. metoprolol tartrate, short acting, (LOPRESSOR) 25 mg tablet TAKE (1/2) TABLET BY MOUTH TWICE DAILY. senna (SENNA LAX) 8.6 mg tab Take 1 tablet by mouth twice daily. Lancets lancets Test blood sugar(s) 8 times daily. Dx: Type 2 DM - Uncontrolled E11.65 Insulin: Yes blood sugar diagnostic (BLOOD GLUCOSE TEST) test strip Test blood sugar(s) 8 times daily. Dx: Type 1 DM - Uncontrolled E10.69 Insulin: Yes oxybutynin (DITROPAN) 5 mg tablet Take 1 tablet by mouth as needed (once daily as needed for bladder spasms). albuterol HFA (PROVENTIL HFA, VENTOLIN HFA) 90 mcg/actuation inhaler Inhale 2 Puffs as instructed every 4 hours as needed. QUEtiapine (SEROQUEL) 200 mg tablet TAKE (1) TABLET BY MOUTH TWICE A DAY. QUEtiapine (SEROQUEL) 100 mg tablet TAKE 1 TABLET BY MOUTH ONCE DAILY AT 5 PM ammonium lactate (LAC-HYDRIN) 12 % cream Apply 1 application to affected area twice daily. COMPOUNDED PRESCRIPTION Please provide [facility] glucocard test strips to check blood sugar four to six Times a day bisacodyl (LAXATIVE, BISACODYL,) 10 mg supp 1 Suppository by RECTAL route once daily as needed. for constipation docusate sodium (COLACE) 100 mg capsule Take 1 capsule by mouth twice daily as needed for Constipation. Dextromethorphan-guaiFENesin (ROBITUSSIN DM) 10-200 mg/5 mL liqd Take 5-10 mL by mouth every 6 hours as needed. for cough azithromycin (ZITHROMAX Z-THAIS) 250 mg tablet Take 2 tablets day one, then, 1 tablet daily until gone. Take with food in a.m. REVIEW OF SYSTEMS: GENERAL: Negative for: Weight loss or gain, Fever or Chills, Weakness and Sleep difficulties. Physical Examination: BP 102/60 Pulse 92 Temp 97.7 Resp 16 Wt 224 lb (101.6kg) SpO2 93% General appearance: Well appearing, alert, in no acute distress, overweight, well-hydrated. seated in wheelchair. Skin: Skin color, texture, turgor normal, no suspicious rashes or lesions Head: Normocephalic, no masses, lesions, tenderness or abnormalities Ears: External ears normal, canals with some cerumen, not occluded, TM's normal Nose/Sinuses: Nares normal, septum midline, mucosa normal, no drainage or sinus tenderness Oropharynx: Lips, mucosa, and tongue normal, teeth and gums normal, oropharynx normal Neck: Supple, no adenopathy; thyroid symmetric, normal size, no bruits Lungs: Lungs clear to auscultation. No wheezing, rhonchi, rales Heart: RRR without murmur, gallop, or rubs. GI/: SP catheter in place, draining clear yellow urine, Abdomen soft, non-tender. Bowel sounds normal. No masses, organomegaly Extremities: No edema, skin discoloration, clubbing or cyanosis. Good capillary refill. Peripheral pulses: Normal Neuro: Gait normal.. Sensation grossly intact. Reviewed chart, outside records, tests I personally interviewed, confirmed and edited the above information if obtained by others. TESTING: Glucose (mg/dL) Date Value 12/26/2017 233 Potassium (mmol/L) Date Value 12/26/2017 5.5 Sodium (mmol/L) Date Value 12/26/2017 141 Chloride (mmol/L) Date Value 12/26/2017 100 CO2 (mmol/L) Date Value 12/26/2017 23 Creatinine (mg/dL) Date Value 12/26/2017 3.76 BUN (mg/dL) Date Value 12/26/2017 57 Anion Gap (mmol/L) Date Value 12/26/2017 18 Calcium (mg/dL) Date Value 12/26/2017 9.5 Glucose (mg/dL) Date Value 12/26/2017 233 Potassium (mmol/L) Date Value 12/26/2017 5.5 Sodium (mmol/L) Date Value 12/26/2017 141 Chloride (mmol/L) Date Value 12/26/2017 100 CO2 (mmol/L) Date Value 12/26/2017 23 Creatinine (mg/dL) Date Value 12/26/2017 3.76 BUN (mg/dL) Date Value 12/26/2017 57 Anion Gap (mmol/L) Date Value 12/26/2017 18 Calcium (mg/dL) Date Value 12/26/2017 9.5 Protein, Total (g/dL) Date Value 12/26/2017 8.7 12/26/2017 8.8 Albumin (g/dL) Date Value 12/26/2017 4.3 Bilirubin, Total (mg/dL) Date Value 12/26/2017 0.3 Alkaline Phosphatase (U/L) Date Value 12/26/2017 87 AST (U/L) Date Value 12/26/2017 22 ALT (U/L) Date Value 12/26/2017 23 Hemoglobin (g/dL) Date Value 12/26/2017 13.8 Hematocrit (%) Date Value 12/26/2017 42.7 WBC (k/uL) Date Value 12/26/2017 6.96 Cholesterol, Total (mg/dL) Date Value 03/15/2017 126 HDL Cholesterol (mg/dL) Date Value 03/15/2017 26 LDL Cholesterol (mg/dL) Date Value 03/15/2017 51 Triglyceride (mg/dL) Date Value 03/15/2017 245 Hemoglobin A1C Date Value Ref Range Status 11/10/2017 7.5 (H) 4.3 - 5.6 % Final 03/15/2017 8.7 (H) 4.3 - 5.6 % Final Comment: [place] [employer] guidelines indicate that patients with HgbA1c in the range 5.7-6.4% are at increased risk for development of diabetes, and intervention by lifestyle modification may be beneficial. HgbA1c greater or equal to 6.5% is considered diagnostic of diabetes. 11/18/2016 8.8 (H) 4.3 - 5.6 % Final Comment: [place] [employer] guidelines indicate that patients with HgbA1c in the range 5.7-6.4% are at increased risk for development of diabetes, and intervention by lifestyle modification may be beneficial. HgbA1c greater or equal to 6.5% is considered diagnostic of diabetes. 08/09/2016 9.1 (H) 4.3 - 5.6 % Final Comment: [employer] [place] [employer] guidelines indicate that patients with HgbA1c in the range 5.7-6.4% are at increased risk for development of diabetes, and intervention by lifestyle modification may be beneficial. HgbA1c greater or equal to 6.5% is considered diagnostic of diabetes. 03/14/2016 9.5 (H) 4.3 - 5.6 % Final Comment: [place] [employer] guidelines indicate that patients with HgbA1c in the range 5.7-6.4% are at increased risk for development of diabetes, and intervention by lifestyle modification may be beneficial. HgbA1c greater or equal to 6.5% is considered diagnostic of diabetes. Ejection Fraction - Result: 58 % Date: 03/30/2015 Time: 10:48:46 IMPRESSION: Mr. Morse is a 38 year old man presents for routine follow up After my examination and review of data, I make the following recommendations. PLAN AND RECOMMENDATIONS: 1. Constipation, unspecified constipation type - ICD9: 564.00, ICD10: K59.00 (primary diagnosis) Reports improved, increased fluid intake 2. Acute bronchitis, unspecified organism - ICD9: 466.0, ICD10: J20.9 - DEXTROMETHORPHAN-GUAIFENESIN 10 MG-200 MG/5 ML ORAL LIQUID - AZITHROMYCIN 250 MG TABLET 3. Anemia, unspecified type - ICD9: 285.9, ICD10: D64.9 Appears anemia has resolved with treatment 4. Uncontrolled type 1 diabetes mellitus with other specified complication (HCC) - ICD9: 250.83, ICD10: E10.69, E10.65 Improving control, following with Dr. Feliciano, endocrinology Did not bring BS readings to visit Continue with plan per Dr. Feliciano's recommendations - HGB A1C - COMP METABOLIC PANEL 5. Hyperlipidemia, unspecified hyperlipidemia type - ICD9: 272.4, ICD10: E78.5 - LIPID PANEL BASIC - COMP METABOLIC PANEL Keep scheduled follow up with rFancine Clark MD. Advised to go to ER if develops chest pain, shortness of breath, or severe worsening of symptoms. Discussed risks, benefits, alternatives, and potential side effects of medications. Mr. Morse expressed understanding and agreed with the plan. Georgi Lee APRN.PERSONNEL MONITOR Referring Provider: SELF [[id number]] Allergies As of Date: 02/06/2018 Noted Allergy Reaction SEASONAL ALLERGIES 12/03/2012 14 - Other: See Comments Comments: Environmental-ragweed Date Reviewed: 02/06/2018 Reviewed by: Kassandra Rueda LPN - Fully Assessed Reason for Visit: 2 month f/u [Other] Primary Visit Diagnosis:Constipation, unspecified constipation type [K59.00] Other Visit Diagnoses:Acute bronchitis, unspecified organism [J20.9] Anemia, unspecified type [D64.9] Uncontrolled type 1 diabetes mellitus with other specified complication (HCC) [E10.69, E10.65] Hyperlipidemia, unspecified hyperlipidemia type [E78.5] Order(s):Dextromethorphan-guaiFENesin (ROBITUSSIN DM) 10-200 mg/5 mL liqdTake 5-10 mL by mouth every 6 hours as needed. for coughDisp: 1 BottleRfl: 0 azithromycin (ZITHROMAX Z-THAIS) 250 mg tabletTake 2 tablets day one, then, 1 tablet daily until gone. Take with food in a.m.Disp: 1 PackageRfl: 0 HGB A1C [[id number]] Order #: [id number] FUTURE LIPID PANEL BASIC [SQLIPB] Order #: [id number] FUTURE COMP METABOLIC PANEL [SQCMP] Order #: [id number] FUTURE Prescriptions as of 02/06/2018 Sig: FERROUS SULFATE 325 MG (65 MG* Take 325 mg by mouth daily wi* ATORVASTATIN 10 MG TABLET Take 0.5 tablets by mouth onc* CHOLECALCIFEROL (VITAMIN D3) * Take 1 tablet by mouth once d* LORATADINE 10 MG TABLET Take 1 tablet by mouth once d* FLUTICASONE 50 MCG/ACTUATION * USE 2 SPRAYS IN EACH NOSTRIL * SENNOSIDES 8.6 MG TABLET Take 8.6 mg by mouth twice da* GLUCOSE 4 GRAM CHEWABLE TABLET TAKE 4 TABLETS BY MOUTH NE* APIXABAN 2.5 MG TABLET Take 1 tablet by mouth twice * GLUCAGON (HUMAN RECOMBINANT) * Inject 1 mg intravenously one* FLUOXETINE 20 MG CAPSULE Take 30 mg by mouth once jacquelin* INSULIN GLARGINE (U-100) 100 * 14 units in the AM and 10 uni* POLYETHYLENE GLYCOL 3350 17 G* Mix 1 capful (17 GMS) in 8 oz* POLYETHYLENE GLYCOL 3350 17 G* Mix 1 capful (17 GMS) in 8 oz* ULTICARE PEN NEEDLE 31 GAUGE * TAKE FIVE- SIX INJECTIONS VASYL* RENACIDIN 6.602 GRAM-3.268 GR* USE 30ML INTRAVESICALRY VIA U* CARBAMIDE PEROXIDE 6.5 % EAR * Use 5 Drops in both ears twic* INSULIN LISPRO (U-100) 100 UN* Inject 6 Units subcutaneously* KETOCONAZOLE 2 % SHAMPOO APPLY LATHER TO AFFECTED SKIN* MELATONIN 3 MG TABLET TAKE 1 TABLET BY MOUTH DAILY * ND-ACID GAS RELIEF 80 MG CHEW* CHEW 1 TABLET BY MOUTH WITH M* ASCORBIC ACID (VITAMIN C) 1,0* Take 1 tablet by mouth once d* ASPIRIN 81 MG TABLET,DELAYED * TAKE (1) TABLET BY MOUTH JACQUELIN* PANTOPRAZOLE 40 MG TABLET,DEL* TAKE 1 TABLET BY MOUTH ONCE D* OLOPATADINE 0.7 % EYE DROPS Use 1 Drop in eyes once daily. METOPROLOL TARTRATE 25 MG TAB* TAKE (1/2) TABLET BY MOUTH TW* SENNOSIDES 8.6 MG TABLET Take 1 tablet by mouth twice * LANCETS Test blood sugar(s) 8 times d* BLOOD SUGAR DIAGNOSTIC STRIPS Test blood sugar(s) 8 times d* OXYBUTYNIN CHLORIDE 5 MG TABL* Take 1 tablet by mouth as nee* ALBUTEROL SULFATE HFA 90 MCG/* Inhale 2 Puffs as instructed * QUETIAPINE 200 MG TABLET TAKE (1) TABLET BY MOUTH TWIC* QUETIAPINE 100 MG TABLET TAKE 1 TABLET BY MOUTH ONCE D* AMMONIUM LACTATE 12 % TOPICAL* Apply 1 application to affect* COMPOUNDED PRESCRIPTION Please provide ARKKAY glucoca* BISACODYL 10 MG RECTAL SUPPOS* 1 Suppository by RECTAL route* DOCUSATE SODIUM 100 MG CAPSULE Take 1 capsule by mouth twice* DEXTROMETHORPHAN-GUAIFENESIN * Take 5-10 mL by mouth every 6* AZITHROMYCIN 250 MG TABLET Take 2 tablets day one, then,* Problem List As Of Date 02/06/2018 Noted Resolved ATTN DEFICIT W HYPERACT [F90.9] INVALID FOR* Uncontrolled type 1 diabetes mellitus (HCC) [E1*INVALID FOR* HYDRONEPHROSIS [N13.30] INVALID FOR* 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 Allergic rhinitis [J30.9] DVT of left axillary vein, acute (HCC) [I82.A12]INVALID FOR* Prescriptions ordered this encounter Disp Refills Start End DEXTROMETHORPHAN-GUAIFENESIN 10 MG-2* 1 Vito* 0 02/06/2018 Route: ORAL Sig: Take 5-10 mL by mouth every 6 hours as needed. for cough AZITHROMYCIN 250 MG TABLET 1 Pa* 0 02/06/2018 02/11/2018 Sig: Take 2 tablets day one, then, 1 tablet daily until gone. Take with food in a.m. Medications Discontinued During This Encounter ciprofloxacin HCl (CIPRO ORAL) 02/06/2018 Class: Historical Med Route: ORAL Sig: Take by mouth. Disc: Reason for discontinue is not on file. Encounter Status:Closed by GEORGI ANGELO on 02/06/18 BASIC METABOLIC Collected: 02/06/2018 Status: F Source: [facility] PROFILE ([facility]) 8:35 AM [facility] REPOSITORY TYPE CODE TESTS RESULT OUT OF RANGE REFERENCE UNITS LAB L501.0100 74-106 mg/dL High GLU 163 Result Comment: Fasting Glucose result greater than or equal to 126 mg/dL suggests DIABETES MELLITUS per A.D.A. criteria. Please note revised GLUCOSE reference range effective 2017. LAB L501.1000 7-18 mg/dL High BUN 59 LAB L501.1100 0.70-1.30 mg/dL High CREAT,SERUM 4.35 Result Comment: The validity of the calculated GFR AND GFRAA in patients over 70 years has not been determined. Clinical correlation is essential. LAB L501.1110 >60 mL/min Low EST GFR 17 Result Comment: Non- GFR Calc LAB L501.1115 >60 mL/min Low EST GFR - AA 20 Result Comment: GFR Calc LAB L501.1300 10-20 RATIO Normal BUN/CRE 13.6 LAB L501.2200 8.5-10.1 mg/dL CA Normal 8.8 LAB L501.5300 136-145 mmol/L NA Normal 142 LAB L501.5600 3.5-5.1 mmol/L K Normal 5.1 Result Comment: Slight Hemolysis, Result may be falsely increased. LAB L501.5900 98-107 mmol/L Normal CL 106 LAB L501.6100 21.0-32.0 mmol/L Normal CO2 28.0 LAB L501.6200 5-15 Normal 8 GAP Performed By: #### L500.2500 #### [facility] [address] [place], [address] SURGERY VISIT REPORT Observed: 01/26/2018 Status: F Source: [facility] 12:40 PM [facility] REPOSITORY [facility] [address] [place] [address] OFFICE VISIT Date of Service: 01/25/18 MR#: [id number] Acct: [id number] Name: JARON MORSE Rep #: [id number] : 1980 Provider: Hugh Abreu MD Age/Sex: 38/M Location: [facility] Status: Signed with Addenda ADDENDUM by Hugh Abreu MD on 01/26/18 at 1240 Addendum entered and electronically signed by Hugh Abreu MD 01/26/18 12:40: I have records from [facility] dated July 13, 2017 with discharge July 23, 2017. Multiple medical problems including sepsis abdominal ileus abdominal bowel obstruction. Pertinent finding though regarding the patient's complaint of chronic right upper extremity pain is that on July 19, 2017 a PICC line was placed in the right upper extremity. Acute edema occurred. Duplex showed an acute right axillary DVT because of the PICC line. Eliquis was selected as the dosing is not affected by the patient's chronic renal failure. It was recommended also the patient have a hypercoagulable workup. I did not see that this was accomplished at [facility]. The patient was complaining of chronic right upper extremity pain ever since this particular hospitalization. Therefore we will obtain duplex vein mapping of the right upper extremity prior to contemplating a right forearm AV fistula. Hugh Abreu M.D., F.A.C.S. Intake Allergies No Known Allergies Allergy (Verified 01/25/18 08:04) Medications Ascorbic Acid [Vitamin C] 1,000 mg PO DAILY 02/21/15 [History Confirmed 01/25/18] Aspirin [Aspirin, Baby] 81 mg PO DAILY 02/21/15 [History Confirmed 01/25/18] Fluoxetine [Prozac] 30 mg PO DAILY 02/21/15 [History Confirmed 01/25/18] Quetiapine Fumarate [Seroquel] 100 mg PO 1700 02/21/15 [History Confirmed 01/25/18] Quetiapine Fumarate [Seroquel] 200 mg PO BID 02/21/15 [History Confirmed 01/25/18] Loratadine [Claritin] 10 mg PO DAILY 07/08/15 [History Confirmed 01/25/18] Melatonin 3 mg PO QHS 12/09/15 [History Confirmed 01/25/18] Insulin Lispro [Humalog Kwikpen] 0 unit SQ TIDCM 08/29/16 [History Confirmed 01/25/18] Atorvastatin Calcium 5 mg PO QHS 11/07/16 [History Confirmed 01/25/18] Pantoprazole Sodium [Protonix] 40 mg PO DAILY 11/07/16 [History Confirmed 01/25/18] Sennosides [Senna] 8.6 mg PO BID 12/29/16 [History Confirmed 01/25/18] Metoprolol Tartrate 12.5 mg PO BID 05/20/17 [History Confirmed 01/25/18] Oxybutynin [Ditropan] 5 mg PO DAILY PRN 05/20/17 [History Confirmed 01/25/18] Polyethylene Glycol 3350 [Miralax] 17 gm PO BID PRN PRN #0 05/21/17 [Rx Confirmed 01/25/18] Fluticasone Propionate [Flovent Diskus] 2 spray NARES DAILY 11/30/17 [History Confirmed 01/25/18] Olopatadine HCl [Pazeo] 1 drp EACH EYE DAILY 11/30/17 [History Confirmed 01/25/18] acetaminophen 325 mg tablet 650 mg PO Q8H PRN tab 12/13/17 [History Confirmed 01/25/18] albuterol sulfate HFA 90 mcg/actuation aerosol inhaler 2 puff INHALATION Q4H PRN 12/13/17 [History Confirmed 01/25/18] insulin glargine (U-100) 100 unit/mL (3 mL) subcutaneous pen 10 unit SC BID ml 12/13/17 [History Confirmed 01/25/18] ketoconazole 2 % shampoo 1 applic TOPICAL Q2W PRN 12/13/17 [History Confirmed 01/25/18] Glucagon 1 mg SC X1 PRN 12/24/17 [History Confirmed 01/25/18] Insulin Lispro [Humalog] 8 unit SQ BREAKFAST 12/24/17 [History Confirmed 01/25/18] Insulin Lispro [Humalog] 8 unit SQ DINNER 12/24/17 [History Confirmed 01/25/18] Cholecalciferol (Vitamin D3) [Vitamin D3] 5,000 unit PO DAILY 01/09/18 [History Confirmed 01/25/18] Ferrous Sulfate [Iron] 2 tab PO DAILY 01/09/18 [History Confirmed 01/25/18] Insulin Lispro [Humalog KwikPen] 4 unit SQ LUNCH 01/09/18 [History Confirmed 01/25/18] Assessment AND Plan Problems 1. Problem with dialysis access, subsequent encounter T82.898D Plan - Hugh Abreu MD The patient had a transposed left upper arm basilic to brachial artery AV fistula. Because of exuberant flow a Dacron cuff was placed at the time of surgery as a flow limiter. Unfortunately the patient at some point in the past thrombosed prior to his follow-up office appointments. The patient has not been reliable in his ongoing maintenance with surgical care. I am proposing for him a right forearm radial to cephalic arteriovenous fistula creation. I admit that this will be technically more challenging. I do not believe that he has other reasonable options in the left upper extremity. That would leave the right forearm right upper arm cephalic vein and right upper arm basilic vein is potential options. I would like not to destroy the option of the forearm AV fistula. I am proposing for him a right radial to cephalic arteriovenous fistula creation I discussed the technique, benefits, risks, alternatives. Great care will need to be observed upon mobilization of the radial artery and creation of the anastomosis. No guarantees of success have been offered. I appreciate the ongoing opportunity of assisting with his surgical care Hugh Abreu M.D., F.A.C.S. 01/26/18 9850 <Electronically signed by Hugh Abreu MD> Date Hugh Abreu MD cc: * Signed Intake Intake Visit Reasons: FU AV Fistula Vein Mapping Complete 12/19 [facility] Cyber Incident Analyst Required: No Is patient in pain?: No Allergies No Known Allergies Allergy (Verified 01/25/18 08:04) Medications Ascorbic Acid [Vitamin C] 1,000 mg PO DAILY 02/21/15 [History Confirmed 01/25/18] Aspirin [Aspirin, Baby] 81 mg PO DAILY 02/21/15 [History Confirmed 01/25/18] Fluoxetine [Prozac] 30 mg PO DAILY 02/21/15 [History Confirmed 01/25/18] Quetiapine Fumarate [Seroquel] 100 mg PO 1700 02/21/15 [History Confirmed 01/25/18] Quetiapine Fumarate [Seroquel] 200 mg PO BID 02/21/15 [History Confirmed 01/25/18] Loratadine [Claritin] 10 mg PO DAILY 07/08/15 [History Confirmed 01/25/18] Melatonin 3 mg PO QHS 12/09/15 [History Confirmed 01/25/18] Insulin Lispro [Humalog Kwikpen] 0 unit SQ TIDCM 08/29/16 [History Confirmed 01/25/18] Atorvastatin Calcium 5 mg PO QHS 11/07/16 [History Confirmed 01/25/18] Pantoprazole Sodium [Protonix] 40 mg PO DAILY 11/07/16 [History Confirmed 01/25/18] Sennosides [Senna] 8.6 mg PO BID 12/29/16 [History Confirmed 01/25/18] Metoprolol Tartrate 12.5 mg PO BID 05/20/17 [History Confirmed 01/25/18] Oxybutynin [Ditropan] 5 mg PO DAILY PRN 05/20/17 [History Confirmed 01/25/18] Polyethylene Glycol 3350 [Miralax] 17 gm PO BID PRN PRN #0 05/21/17 [Rx Confirmed 01/25/18] Fluticasone Propionate [Flovent Diskus] 2 spray NARES DAILY 11/30/17 [History Confirmed 01/25/18] Olopatadine HCl [Pazeo] 1 drp EACH EYE DAILY 11/30/17 [History Confirmed 01/25/18] acetaminophen 325 mg tablet 650 mg PO Q8H PRN tab 12/13/17 [History Confirmed 01/25/18] albuterol sulfate HFA 90 mcg/actuation aerosol inhaler 2 puff INHALATION Q4H PRN 12/13/17 [History Confirmed 01/25/18] insulin glargine (U-100) 100 unit/mL (3 mL) subcutaneous pen 10 unit SC BID ml 12/13/17 [History Confirmed 01/25/18] ketoconazole 2 % shampoo 1 applic TOPICAL Q2W PRN 12/13/17 [History Confirmed 01/25/18] Glucagon 1 mg SC X1 PRN 12/24/17 [History Confirmed 01/25/18] Insulin Lispro [Humalog] 8 unit SQ BREAKFAST 12/24/17 [History Confirmed 01/25/18] Insulin Lispro [Humalog] 8 unit SQ DINNER 12/24/17 [History Confirmed 01/25/18] Cholecalciferol (Vitamin D3) [Vitamin D3] 5,000 unit PO DAILY 01/09/18 [History Confirmed 01/25/18] Ferrous Sulfate [Iron] 2 tab PO DAILY 01/09/18 [History Confirmed 01/25/18] Insulin Lispro [Humalog KwikPen] 4 unit SQ LUNCH 01/09/18 [History Confirmed 01/25/18] PFSH Medical History hx of PICC Line (Acute) Strabismus (Chronic) Disruptive Behavior Disorder (Chronic) Diabetic retinopathy (Chronic) History of constipation (Chronic) Aspiration into airway (Suspected) Wheezing (Acute) Chronic kidney disease (Chronic) Hyponatremia (Acute) Ileus (Acute) History of Suprapubic Cystostomy (Chronic) History of anxiety disorder (Chronic) Surgical History History of suprapubic catheter (Acute) Hx of exploratory laparotomy (Acute) History of esophagogastroduodenoscopy (EGD) (Acute) Hx of colonoscopy (Acute) Hx of arteriovenostomy for renal dialysis (Acute) Hx of appendectomy (Acute) Social History Smoking Status: Never smoker second hand exposure: No alcohol intake: never substance use type: does not use caffeine: Yes what type of physical activity do you participate in: none frequency: does not exercise seatbelt use: always HPI HPI HPI: JARON MORSE, is a 38 M who presents to the office today for ongoing surgical follow-up and evaluation for hemodialysis vascular access. Previous office notes reflect the following. HPI: JARON MORSE, is a 38 M who presents with non-functioning left upper extremity fistula. Patient has a left upper extremity cephalic vein to brachial artery arteriovenous fistula, which was created on 12/16/15. A Dacron cuff was placed at the time of creation. Patient was last evaluated by Dr. Abreu in August 2016. Patient was to follow-up in 4 months, however never returned. Patient was hospitalized in August 2017 at [facility] with respiratory failure and renal blood clot. Per patient, dialysis was to be initiated at that hospitalization however the fistula was weak. Patient denies being on dialysis currently. Dr. Gonzales is his weblogic administrator. Patient has suprapubic catheter for urinary retention, diabetes type 1, and mild mental retardation. Patient has a history of blood clots. He is currently on Eliquis and aspirin. On December 19, 2017 at the [facility] the patient had bilateral upper extremity vein mapping. The patient has had a transposed left upper extremity brachiobasilic AV fistula which unfortunately thrombosed. The right upper extremity demonstrates a smaller radial artery at 0.17 x 0.18 cm. The cephalic vein at the wrist measures 0.23 x 0.23 cm. The patient complains of chronic right upper arm pain since a thrombosis August 2017. That apparently occurred over at [facility]. We do not have any records. There is no evidence of any current thrombosis in his veins. ROS General General: Yes fatigue; no weight change, appetite, colon cancer, breast cancer or weakness HEENT HEENT: Yes difficulty swallowing; no eye injury, eye surgery, swollen glands or hoarseness Endo Endocrine: Yes diabetes mellitus; no thyroid disease, thyroid cancer, Hair loss, heat intolerance or cold intolerance Skin Skin: No rash or changing moles Breast Breast: No left breast lump, right breast lump, nipple discharge, breast pain, abnormal mammogram, abnormal US or breast enlargement Musc Musculoskeletal: Yes back problems; no arthritis, rheumatoid arthritis, gout or joint pain Cardio Cardiovascular: Yes high blood pressure; no murmur, pacemaker, heart disease, atrial fibrillation, heart attack, heart stent, palpitations, shortness of breat with exertion or chest pain Psych Psychiatric: No depression, anxiety or hearing voices Gastro Gastrointestinal: Yes acid reflux, No abdominal pain, No nausea or vomiting, No diarrhea, No constipation, No blood in stool, No hemorrhoids, No ulcers, No gallbladder problem, No black,tarry stools Nathaniel Hematologic: Yes blood thinners, No blood disorders, No bleeding, Yes anemia, Yes blood clots Neuro Neurologic: No weakness Exam Const General: cooperative, healthy appearing Nutritional Appearance: obese Orientation: alert [facility] Head: normal to inspection Eyes General: appearance normal, both eyes and all related structures Chest Breast Palpation: No nipple discharge Resp Effort AND Inspection: normal respiratory effort Auscultation: clear to auscultation bilaterally Cardio Rate: regular rate Heart Sounds: no murmurs GI Other: Notably overweight, cannot to get any organs Neuro Other: Developmental delay denoted. Talkative. No acute distress. Extrem Other: The right radial pulses 2+. Ultrasound inspection of the right wrist cephalic vein is borderline. The upper arm it becomes more dominant. Assessment AND Plan Problems 1. Problem with dialysis access, subsequent encounter T82.667D Plan The patient had a transposed left upper arm basilic to brachial artery AV fistula. Because of exuberant flow a Dacron cuff was placed at the time of surgery as a flow limiter. Unfortunately the patient at some point in the past thrombosed prior to his follow-up office appointments. The patient has not been reliable in his ongoing maintenance with surgical care. I am proposing for him a right forearm radial to cephalic arteriovenous fistula creation. I admit that this will be technically more challenging. I do not believe that he has other reasonable options in the left upper extremity. That would leave the right forearm right upper arm cephalic vein and right upper arm basilic vein is potential options. I would like not to destroy the option of the forearm AV fistula. I am proposing for him a right radial to cephalic arteriovenous fistula creation I discussed the technique, benefits, risks, alternatives. Great care will need to be observed upon mobilization of the radial artery and creation of the anastomosis. No guarantees of success have been offered. I appreciate the ongoing opportunity of assisting with his surgical care Hugh Abreu M.D., F.A.C.S. Coding Level of Care Code Off vis,est,level 3 Diagnoses Problem with dialysis access, subsequent encounter T80.595D Encounter type: subsequent encounter Time Spent (min) 25 01/25/18 0940 <Electronically signed by Hugh Abreu MD> Date Hugh Abreu MD Cosigner Signature: Date (if applicable) CC: BEDSIDE GLUCOSE Collected: 01/17/2018 Status: F Source: [facility] 8:04 AM [facility] REPOSITORY TYPE CODE TESTS RESULT OUT OF REFERENCE UNITS RANGE LAB L501.080 70-110 mg/dL High BEDSIDE GLU 231 Result Comment: MANAGEMENT OF PATIENT CARE PER NURSING PROTOCOL Performed By: #### L501.080 #### [facility] Point of Care [address] [place] [address] OPERATIVE REPORT Observed: 01/17/2018 Status: F Source: [facility] 7:52 AM [facility] REPOSITORY [facility] Medical Records Department [address] [place] [address] Operative Report 01/17/18 0749 MR#: [id number] Acct: [id number] Name: JARON MORSE Rep #: [id number] : 1980 37 From: Jose Juan Lopez MD PCP: Francine Clark MD Status: [facility] Y Location: [place] [address] Report of Operation Date of Procedure: 01/17/18 Pre-Operative Diagnosis: gross hematuria Post-Operative Diagnosis: same Surgery/Procedure Performed:: cystoscopy and change SP tube. Description of Surgical Findings:: 37 yo male prep draped sterile fashion when into penis with 19 fr scope channel normal, scarred down, blind end urethra at bulbar urethra SP tube removed, scope via SP tube track, normal bladder some inflammation no tumors, retrogrades not possible, new SP tube placed. 18 fr. Type of Anesthesia:: General Drains: 18 fr SP tube - Admit VTE Documentation VTE Present on Admission: No VTE Mechan Device Prophylaxis: SCD's 01/17/18 0752 <Electronically signed by Jose Juan Lopez MD> Date Jose Juan Lopez MD CC: Jose Juan Lopez MD; Francine Clark MD Signed DISCHARGE INSTRUCTION Observed: 01/17/2018 Status: F Source: GREG 7:49 AM [facility] REPOSITORY [facility] Medical Records Department [address] [place] [address] Instructions for Home/Discharge Instructions 01/17/18 0748 MR#: [id number] Acct: [id number] Name: JARON MORSE Yaquelin Rep #: [id number] : 1980 37 From: Jose Juan Lopez MD PCP: Francine Clark MD Status: REG SDC Discharge Diet: No Restrictions Discharge Activity: Return to Normal Activity Catheter: Franco to large bag Drain: [place] Allergies/Adverse Reactions: Allergies No Known Allergies Allergy (Verified 01/09/18 11:31) Medications to take at Discharge Ascorbic Acid [Vitamin C] 1,000 mg PO DAILY 02/21/15 Aspirin [Aspirin, Baby] 81 mg PO DAILY 02/21/15 Fluoxetine [Prozac] 30 mg PO DAILY 02/21/15 Quetiapine Fumarate [Seroquel] 100 mg PO 1700 02/21/15 Quetiapine Fumarate [Seroquel] 200 mg PO BID 02/21/15 Loratadine [Claritin] 10 mg PO DAILY 07/08/15 Melatonin 3 mg PO QHS 12/09/15 Insulin Lispro [Humalog Kwikpen] 0 unit SQ TIDCM 08/29/16 Atorvastatin Calcium 5 mg PO QHS 11/07/16 Pantoprazole Sodium [Protonix] 40 mg PO DAILY 11/07/16 Sennosides [Senna] 8.6 mg PO BID 12/29/16 Metoprolol Tartrate 12.5 mg PO BID 05/20/17 Oxybutynin [Ditropan] 5 mg PO DAILY PRN 05/20/17 Polyethylene Glycol 3350 [Miralax] 17 gm PO BID PRN PRN #0 05/21/17 Fluticasone Propionate [Flovent Diskus] 2 spray NARES DAILY 11/30/17 Olopatadine HCl [Pazeo] 1 drop EACH EYE DAILY 11/30/17 acetaminophen 325 mg tablet 650 mg PO Q8H PRN tab 12/13/17 albuterol sulfate HFA 90 mcg/actuation aerosol inhaler 2 puff INHALATION Q4H PRN 12/13/17 insulin glargine (U-100) 100 unit/mL (3 mL) subcutaneous pen 10 unit SC BID ml 12/13/17 ketoconazole 2 % shampoo 1 applic TOPICAL Q2W PRN 12/13/17 Glucagon 1 mg SC X1 PRN 12/24/17 Insulin Lispro [Humalog] 8 unit SQ BREAKFAST 12/24/17 Insulin Lispro [Humalog] 8 unit SQ DINNER 12/24/17 Cholecalciferol (Vitamin D3) [Vitamin D3] 5,000 unit PO DAILY 01/09/18 Ferrous Sulfate [Iron] 2 tab PO DAILY 01/09/18 Insulin Lispro [Humalog KwikPen] 4 unit SQ LUNCH 01/09/18 Primary Care Physician: Francine Clark MD [Primary Care Provider] - Test Results: Test results from this visit will be discussed in further detail at your follow-up appointment, if applicable. Please Follow Up With: Jose Juan Lopez MD When: please call to make an appointment. 01/17/18 0749 <Electronically signed by Jose Juan Lopez MD> Date Jose Juan Lopez MD CC: Francine Clark MD BEDSIDE GLUCOSE Collected: 01/17/2018 Status: F Source: GREG 6:16 AM [facility] REPOSITORY TYPE CODE TESTS RESULT OUT OF REFERENCE UNITS RANGE LAB L501.080 70-110 mg/dL High BEDSIDE GLU 214 Result Comment: MANAGEMENT OF PATIENT CARE PER NURSING PROTOCOL Performed By: #### L501.080 #### [facility] Point of Care [address] [place] [address] CARDIOLIPIN ANTIBODY Collected: 12/26/2017 Status: F Source: [place] 9:30 AM [facility] REPOSITORY TYPE CODE TESTS RESULT OUT OF REFERENCE UNITS RANGE LAB CARDG 0-9 GPL IgG Cardiolipin Ab. Duplicate request Result Comment: SEE LUPUS PANEL, KK 0710 Account Credited LAB CARDM 0-11 MPL IgM Cardiolipin Ab. Duplicate request Result Comment: SEE LUPUS PANEL, KK 0710 Account Credited LAB CARDA 0-11 APL IgA Cardiolipin Ab. Duplicate request Result Comment: SEE LUPUS PANEL, IHSAN 0710 Account Credited Performed By: #### CARDIO, CBCDIF, IRON, CMP, DDMER, FERR, B12, SERIMM, SEPG, MPASRM, MMA #### [facility] [address] [place] [address] CBC AND DIFFERENTIAL Collected: 12/26/2017 Status: F Source: [place] 9:30 AM [facility] REPOSITORY TYPE CODE TESTS RESULT OUT OF REFERENCE UNITS RANGE LAB WBC 3.70-11.00 k/uL WBC 6.96 LAB RBC 4.20-6.00 m/uL RBC 4.33 LAB HGB 13.0-17.0 g/dL Hemoglobin 13.8 LAB HCT 39.0-51.0 % Hematocrit 42.7 LAB MCV 80.0-100.0 fL MCV 98.6 LAB MCH 26.0-34.0 pG MCH 31.9 LAB MCHC 30.5-36.0 g/dL MCHC 32.3 LAB RDWCV 11.5-15.0 % RDW-CV 13.1 LAB PLTCT 150-400 k/uL Platelet Count 217 LAB MPV 9.0-12.7 fL MPV 11.6 LAB ANEUT % Neut% 64.2 LAB AANEUT 1.45-7.50 k/uL Abs Neut 4.47 LAB ALYMP % Lymph% 25.6 LAB AALYMP 1.00-4.00 k/uL Abs Lymph 1.78 LAB AMONO % Whitley% 7.5 LAB AAMONO <0.87 k/uL Abs Whitley 0.52 LAB AEOS % Eosin% 2.4 LAB AAEOS <0.46 k/uL Abs Eosin 0.17 LAB ABASO % Baso% 0.3 LAB AABASO <0.11 k/uL Abs Baso <0.03 LAB AUNRBC 0 /100 WBC NRBCs 0.0 LAB ABNRBC <0.01 k/uL Absolute nRBC <0.01 LAB DTYP DTYPE Auto Diff Performed By: #### CARDIO, CBCDIF, IRON, CMP, DDMER, FERR, B12, SERIMM, SEPG, MPASRM, MMA #### [facility] [address] [place], [place] [address] IRON AND TIBC Collected: 12/26/2017 Status: F Source: [place] 9:30 AM [facility] REPOSITORY TYPE CODE TESTS RESULT OUT OF REFERENCE UNITS RANGE LAB IRN 41-186 ug/dL Iron 69 LAB TIBC 232-386 ug/dL TIBC 240 LAB SAT 15-57 % Transferrin Saturatn 29 Performed By: #### CARDIO, CBCDIF, IRON, CMP, DDMER, FERR, B12, SERIMM, SEPG, MPASRM, MMA #### [place] [id number] COMP METABOLIC PANEL Collected: 12/26/2017 Status: F Source: [place] 9:30 AM [facility] REPOSITORY TYPE CODE TESTS RESULT OUT OF REFERENCE UNITS RANGE LAB TP 6.3-8.0 g/dL Protein, High Total 8.7 LAB ALB 3.9-4.9 g/dL Albumin 4.3 LAB CA 8.5-10.2 mg/dL Calcium, Total 9.5 LAB TBIL 0.2-1.3 mg/dL Bilirubin, Total 0.3 LAB ALKP 36-108 U/L Alkaline Phosphatase 87 LAB AST 14-40 U/L AST 22 LAB GLU 74-99 mg/dL Glucose High 233 Result Comment: The [place] Diabetes Association (ADA) provides guidance for cutoff values for fasting glucose and random glucose. The ADA defines fasting as no caloric intake for at least 8 hours. Fas ting plasma glucose results between 100 to 125 mg/dL indicate increased risk for diabetes (prediabetes). Fasting plasma glucose results greater than or equal to 126 mg/dL meet the criteria for diagnosis of diabetes. In the absence of unequivocal hyperglycemia, results should be confirmed by repeat testing. In a patient with classic symptoms of hyperglycemia or hyperglycemic crisis, random plasma glucose results greater than or equal to 200 mg/dL meet the criteria for diagnosis of diabetes. Reference: Standards of Medical Care in Diabetes 2016, [place] Diabetes Association. Diabetes Care. 2016.39(Suppl 1). LAB BUN 9-24 mg/dL BUN High 57 LAB CRET 0.73-1.22 mg/dL Creatinine High 3.76 LAB NA 136-144 mmol/L Sodium 141 LAB K 3.7-5.1 mmol/L Potassium High 5.5 LAB CL 97-105 mmol/L Chloride 100 LAB CO2 22-30 mmol/L CO2 23 LAB AGAP 9-18 mmol/L Anion Gap 18 LAB ALT 10-54 U/L ALT 23 LAB GFRAA eGFR- Amer. 22 LAB GFRNAA . eGFR-All Other Races 18 Result Comment: eGFR (Estimated GFR) Units of measure: mL/min/1.73 meters squared eGFR is derived from the reexpressed MDRD Study equation using the following parameters: serum creatinine, age, gender and race. The creatinine assay has been calibrated to be traceable to IDMS. An eGFR <60 mL/min/1.73m2 for >3 months is consistent with chronic kidney disease. Refer to KDOQI guidelines for clinical interpretation. In patients with unstable renal function, e.g. those with acute kidney injury, the eGFR may not accurately reflect actual GFR. Performed By: #### CARDIO, CBCDIF, IRON, CMP, DDMER, FERR, B12, SERIMM, SEPG, MPASRM, MMA #### [facility] [address] [place], [place] [address] D DIMER Collected: 12/26/2017 Status: F Source: [place] 9:30 AM [facility] REPOSITORY TYPE CODE TESTS RESULT OUT OF REFERENCE UNITS RANGE LAB DDMER <500 ng/mL FEU High D dimer 910 Result Comment: The D-dimer assay can be used to exclude pulmonary embolism (PE) and deep vein thrombosis (DVT) in conjunction with a low pre-test probability. For patients with a suspected DVT, a D-dimer level below 500 ng/mL FEU has a negative predictive value of 99.2%, a sensitivity of 98.9%, and a specificity of 36.1%. For patients with a suspected PE, a D -dimer level below 500 ng/mL FEU has a negative predictive value of 99.1%, a sensitivity of 97.8%, and a specificity of 41.7%. Performed By: #### CARDIO, CBCDIF, IRON, CMP, DDMER, FERR, B12, SERIMM, SEPG, MPASRM, MMA #### [place] [id number] [place] [id number] FERRITIN Collected: 12/26/2017 Status: F Source: [place] 9:30 AM [facility] REPOSITORY TYPE CODE TESTS RESULT OUT OF REFERENCE UNITS RANGE LAB FERR 30.3-565.7 ng/mL Ferritin 119.6 Performed By: #### CARDIO, CBCDIF, IRON, CMP, DDMER, FERR, B12, SERIMM, SEPG, MPASRM, MMA #### [place] [id number] VITAMIN B12 Collected: 12/26/2017 Status: F Source: [place] 9:30 AM [facility] REPOSITORY TYPE CODE TESTS RESULT OUT OF REFERENCE UNITS RANGE LAB B12 232-1245 pg/mL Vitamin B12 691 Performed By: #### CARDIO, CBCDIF, IRON, CMP, DDMER, FERR, B12, SERIMM, SEPG, MPASRM, MMA #### [place] [address] IMMUNOGLOBULINS MARZENA Collected: 12/26/2017 Status: F Source: [place] 9:30 AM [facility] REPOSITORY TYPE CODE TESTS RESULT OUT OF RANGE REFERENCE UNITS LAB IGG 717-1411 mg/dL High IgG 2380 LAB IGA 78-391 mg/dL IgA 272 LAB IGM 53-334 mg/dL IgM 234 Performed By: #### CARDIO, CBCDIF, IRON, CMP, DDMER, FERR, B12, SERIMM, SEPG, MPASRM, MMA #### [place] [id number] PROTEIN ELECTROPHOR. Collected: 12/26/2017 Status: F Source: [place] 9:30 AM [facility] REPOSITORY TYPE CODE TESTS RESULT OUT OF REFERENCE UNITS RANGE LAB TPSPE 6.0-8.4 g/dL Total Protein, High SPE 8.8 LAB ALBE 3.37-4.23 gm/dL Albumin 4.22 LAB A1GL 0.18-0.31 gm/dL Alpha 1 Globulin 0.24 LAB A2GL 0.52-0.97 gm/dL Alpha 2 Globulin 0.84 LAB BEGL 0.84-1.36 gm/dL Beta Globulin 0.97 LAB GAGL 0.70-1.44 gm/dL Gamma Globulin High 2.53 LAB SPEINT Interpretation SEE COMMENT Result Comment: No definitive M protein is identified on protein electrophoresis. LAB LOC M Protein N/A Location LAB GPERDL 0.00 gm/dL M Martin 0.00 Concentratn LAB SPESTF SPE Staff Review Reviewed by Benedict Wei M.D., PhD ([id number]) Performed By: #### CARDIO, CBCDIF, IRON, CMP, DDMER, FERR, B12, SERIMM, SEPG, MPASRM, MMA #### [facility] [address] [place], [place] [address] MONOCLONL PROTEIN,BL Collected: 12/26/2017 Status: F Source: [place] 9:30 AM [facility] REPOSITORY TYPE CODE TESTS RESULT OUT OF REFERENCE UNITS RANGE LAB MPAIGG 717-1411 mg/dL High MPA Serum 2370 IgG LAB MPAIGA 78-391 mg/dL MPA Serum 264 IgA LAB MPAIGM 53-334 mg/dL MPA Serum 242 IgM LAB MPAK 534-1267 mg/dL High Serum 1770 [place] LAB MPAL 253-653 mg/dL High Serum 1130 Lambda LAB MPAKL 1-3 MPA 1.57 Nabeel/Peña Ratio LAB MPAR No M protein is identified. No MPA M protein is Result identified. LAB MPASTF Staff Reviewed by Review Benedict Wei M.D., PhD ([id number]) Performed By: #### CARDIO, CBCDIF, IRON, CMP, DDMER, FERR, B12, SERIMM, SEPG, MPASRM, MMA #### [facility] [address] [place], [place] [address] METHYLMALONIC ACID Collected: 12/26/2017 Status: F Source: [place] 9:30 AM [facility] REPOSITORY TYPE CODE TESTS RESULT OUT OF REFERENCE UNITS RANGE LAB MMA 79-376 nmol/L Methylmalonic High Acid 655 Result Comment: This test was developed and its performance characteristics determined by [facility]'s [facility] [place] ([facility]). It has not been cleared or approved by the FDA. [facility] is regulated under CLIA as qualified to perform high-complexity testing. This test is used for clinical purposes. It should not be regarded as investigational or for research. Performed By: #### CARDIO, CBCDIF, IRON, CMP, DDMER, FERR, B12, SERIMM, SEPG, MPASRM, MMA #### [facility] [address] [place], [place] [address] LUPUS ANTICOAG PANEL Collected: 12/26/2017 Status: F Source: [place] 9:30 AM [facility] REPOSITORY TYPE CODE TESTS RESULT OUT OF RANGE REFERENCE UNITS LAB PSEC 9.7-13.0 sec PT Sec 11.0 LAB INR 0.9-1.3 PT INR 1.1 Result Comment: Vitamin K Antagonist (VKA) Therapeutic Range: INR 2 to 3 (Target INR of 2.5) Note: For patients treated with VKA drugs, such as warfarin, the [place] [employer] 2012 Guideline recommends a therapeutic INR range of 2 to 3 (target INR of 2.5). This recommendation includes high-risk patients with antiphospholipid syndrome with previous arterial or venous thromboembolism, current-generation mechanical or bioprosthetic aortic heart valve replacement. Note: Patients with mechanical aortic valve replacement and additional risk factors for thromboembolic events (atrial fibrillation, previous thromboembolism, LV dysfunction, hypercoagulable conditions) or an older generation mechanical AVR (i.e., ball in-Cage) or any mechanical MVR should have a INR therapeutic range of 2.5 to 3.5 (target INR of 3). Mark GH, et al. Chest 2012, 141:7S-47S Crystal RA, et al. JACC 2017, 70: 252-289 LAB APTT 23.0-32.4 sec APTT 25.9 Result Comment: Unfractionated Heparin Therapeutic Ranges: Standard Heparin Nomogram: 53 to 78 seconds (anti-Xa level of 0.3 to 0.7 U/ml) Low Dose/ACS Nomogram: 49 to 67 seconds (anti-Xa level of 0.2 to 0.5 U/ml) Stroke Treatment Nomogram: 49 to 67 seconds (anti-Xa level of 0.2 to 0.5 U/ml) Note: The APTT therapeutic range has been determined for the current lot of laboratory APTT reagent in use throughout the [facility]. LAB PLTNEU Negative PNP Negative LAB DRVSCN 32.7-46.7 sec DRVVT Screen 42.3 LAB DRVRAT <1.21 DRVVT Confirm 0.98 Ratio LAB DRVMIX 32.7-46.7 sec DRVVT 1:1 Mix 40.4 LAB HEXSCN 45.0-59.9 sec Hex Phase 45.0 Screen LAB HEXMIX 41.8-54.9 sec Hex Phase 44.3 Confirm LAB HEXDEL <9.1 delta sec Hex Phase 0.7 Delta LAB APTTSC 24.4-33.4 sec APTT Screen 32.4 LAB IMPTT <33.2 sec Immed. PTT 1:1 29.2 Mix LAB 1HRPTT <35.0 sec Incub. PTT 1:1 31.0 Mix LAB TT <18.6 sec High Thrombin Time 20.8 Result Comment: Result rechecked. LAB LUPINT Interpretation (NOTE) Result Comment: Performing Pathologist: Chyna Anthony M.D., Ph.D. Abnormal - see comment below. SIGNIFICANT FINDINGS: 1. Beta 2 Glycoprotein I Antibody: IgM POSITIVE 3. Elevated thrombin time and D-dimer (see interpretation) Laboratory testing was performed to evaluate the presence of a lupus anticoagulant and anti-phospholipid antibodies. Both the PT and APTT results are normal. The thrombin time was minimally elevated with a mildly positive D-dimer. This is a nonspecific finding, but could be seen with a mild consumptive coagulopathy. LUPUS ANTICOAGULANT STUDIES: There is no evidence for a lupus anticoagulant or other coagulation inhibitor at this time. ANTIPHOSPHOLIPID ANTIBODY STUDIES: The IgM Beta-2 Glycoprotein I antibody titer was positive. The presence of an IgM Beta-2 Glycoprotein I antibody (a type of antiphospholipid antibody) may be a risk factor for both venous and arterial thrombosis. Suggest retesting in 12 weeks to confirm, as anti-beta-2 glycoprotein I antibodies may be transient. If the titer is elevated on two or more occasions at least 12 weeks apart, this may be indicative of the anti-phospholipid antibody syndrome, if observed in the correct clinical setting. One or more of the anticardiolipin antibody titers were minimally elevated. These findings are of doubtful clinical significance. Antiphospholipid antibody syndrome (APS) is present if at least one clinical criteria and one laboratory criteria are met. The clinical criteria for APS include the presence of vascular thrombosis or morbidity. The laboratory criteria for APS include positive testing for one of the following on two or more occasions, at least 12 weeks apart: (1) lupus anticoagulant ; (2) anticardiolipin IgG or IgM in medium or high titer (>40 GPL or >40 MPL) ; (3) anti-beta 2 glycoprotein I IgG or IgM antibody. J. Thromb Haemost 4:295 (2006). PROTEIN STUDIES: D-dimer is elevated. LAB CARDG 0-9 GPL IgG Cardiolipin Ab. <9 Result Comment: <10 GPL Negative 10-40 GPL Equivocal >40 GPL Positive The following results were obtained with the [employer] QUANTA Lite ADELE IgG III KWADWO. Cardiolipin IgG values obtained with the different manufacturers' assay methods may not be used interchangeably. The mag nitude of the reported IgG levels cannot be correlated to an endpoint titer. LAB CARDM 0-11 MPL IgM Cardiolipin High Ab. 15 Result Comment: <12 MPL Negative 12-40 MPL Equivocal >40 MPL Positive The following results were obtained with the [employer] QUANTA Lite ADELE IgM III KWADWO. Cardiolipin IgM values obtained with different manufacturers' assay methods may not be used interchangeably. The magnitu de of the reported IgM levels cannot be correlated to an endpoint titer. LAB CARDA 0-11 APL IgA Cardiolipin Ab. <9 Result Comment: <12 APL Negative 12-40 APL Equivocal >40 APL Positive The following results were obtained with an [employer] QUANTA Lite ADELE IgA III KWADWO. Cardiolipin IgA values obtained with different manufacturers' assay methods may not be used interchangeably. The magnitud e of the reported IgA levels cannot be correlated to an endpoint titer. LAB B2GPG <20 SGU Beta2 Glycoprot IgG <9 Result Comment: < 20 SGU Negative 20-80 SGU Low Positive > 80 SGU High Positive These results were obtained with the [employer] QUANTA Lite B2 GPI IgG KWADWO. B2 GPI IgG values obtained with different manufacturers' assay methods may not be used interchangeably. The magnitude of the repo rted IgG levels cannot be correlated to an endpoint titer. LAB B2GPM <20 SMU High Beta2 Glycoprot IgM 21 Result Comment: < 20 SMU Negative 20-80 SMU Low Positive > 80 SMU High Positive These results were obtained with the [employer] QUANTA Lite B2 GPI IgM KWADWO. B2 GPI IgM values obtained with different manufacturers' assay methods may not be used interchangeably. The magnitude of the repo rted IgM levels cannot be correlated to an endpoint titer. Performed By: #### LUPUSP #### [facility] [address] [place], [place] [address] HISTORY PHYSICAL Observed: 12/25/2017 Status: COMPLETED Source: [place] 10:40 AM [facility] [place] REPOSITORY HNO ID: [id number] Author: Kelby Huddleston Service: (none) Author Type: Physician Type: HANDP Filed: 12/25/2017 11:30 AM Note Text: New Patient Consult REASON FOR VISIT Jaron Morse is a 37 year old male who is scheduled for a consult at the request of Self for Consult (bowel blockage). My final recommendations will be communicated back to the requesting physician by the way of the shared medical record, fax, or via US Mail History of Present Illness: 37 year old male here for consult for bowel blockage , accompanied by attendants from his facility. 37 yo male comes with c/o chronic constipation - 3 years - intermittently improved but now seems to be improving. He reports moving his bowels 1-2 times /day - varies in frequency - sometimes he does not have bowel movements for 2-3 days. He reports hard stools. He says he has to strain to pass stools. His stools vary quantity - sometimes his stools are very small. His dietary intake of fluid consists of coffee and sodas with minimal water. No bleeding NH. No h/o watery bowel movements/ recent change in bowel movements. Weight gain over the past 6 months - 5lbs. He reports good appetite. No h/o abdominal pain, nausea, vomiting. He was last seen in 2014 - diagnosed with a chronic motility disorder which was satisfactorily managed for many years. Last colonoscopy - 2012 - ?- Preparation of the colon was poor. ? - The entire examined colon is normal on direct and ? retroflexion views. Last CT scan - 12/18/2017 - Non specific ileus with diffuse fecal retention in colon. Nonspecific nephrocalcinosis. Moderate anterior abdominal wall hernia with loop of small bowel without incarceration or proximal obstruction. FUNCTIONAL STATUS: PAST MEDICAL HISTORY Diagnosis Date - Acute deep vein thrombosis (DVT) of right upper extremity (HCC) 03/19/15 Diagnosed during hospital admission; coumadin started - Acute embolism and thrombosis of deep vein of right upper extremity (HCC) 04/09/2015 - Acute gastritis without mention of hemorrhage 08/21/2012 - Allergic rhinitis - Anemia 03/07/2015 - Attention deficit disorder with hyperactivity(314.01) - Chronic renal failure Dr. 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 - Hand fracture 07/2012 right - Hemorrhage of gastrointestinal tract, unspecified 08/21/2012 - Hypernatremia 03/07/2015 - Incisional infection 02/04/16 - Nocturnal enuresis 04/28/2005 - OTHER MENTAL RETARDATION - MILD 02/07/2005 - Presence of suprapubic catheter ([facility]) Dr. Frias - Retention of urine, unspecified 08/20/2007 - Type I (juvenile type) diabetes mellitus without mention of complication, not stated as uncontrolled 02/04/2005 Dr. Olmedo PAST SURGICAL HISTORY Procedure Laterality Date - APPENDECTOMY 2000 - AV FUSE, UPPR ARM, CEPHALIC 12/17/15 Transposition left upper arm cephalic vein to brachial artery arteriovenous fistula creation - [facility] 12/04/14 decompression for pseudoobstruction - COLONOSCOPY 08/21/2012 and EGD - EGD W/REM FB STOMACH/DUOD 01/02/2017 removal of PEG tube with EGD to remove fragment - EGD W/REM FB STOMACH/DUOD 12/2016 - IR VASCULAR ACCESS TEAM PICC REPOSITION 04/04/2015 - MIDLINE INSERTION/CONSULT 03/03/2015 - PAST SURGICAL HISTORY OF Laparotomy - PAST SURGICAL HISTORY OF 01/22/2015 negative exploratory laparotomy for pneumatosis intestinalis high grade bowel obstruction - PICC LINE INSERT/CONSULT 04/02/2015 - PICC LINE INSERT/CONSULT 04/03/2015 - SUPRAPUBIC CATHETER FAMILY HISTORY Problem Relation Age of Onset - unknown [Other] [OTHER] - Diabetes Father Diabetic, unsure of which type, did not want to provide additional FH details. 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) 09/14/2011 Monisha Pearson ([place])(Hist) Ivy No Priority: C Overview Addendum 12/15/2015 11:34 AM by Francine Ricci DVT of left axillary vein, acute ([facility]) 08/01/2017 Corinne ([facility]) Older No Allergic rhinitis Francine Clark No Seborrheic dermatitis 10/05/2015 Francine Clark No Overview Signed 10/05/2015 3:28 PM by Francine Clark eyebrows and devlin and mustache area, as well as face 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 Francine Clark No Overview Signed 07/18/2014 5:43 PM by Francine Clark recurrent SBO and global dysmotility diagnosis when at [facility] Suprapubic catheter ([facility]) 12/09/2010 Claudia ([place])(Hist) Trini No Mild intellectual disabilities 08/22/2008 Francine Clark No Hydronephrosis 10/18/2007 Alec Orozco No Attention deficit disorder with hyperactivity(314.01) 02/04/2005 [facility] No Uncontrolled type 1 diabetes mellitus ([facility]) 02/04/2005 [facility] No MEDICATIONS Current Outpatient Prescriptions: apixaban (ELIQUIS) 2.5 mg tab tab(s) Take 1 tablet by mouth twice daily. Disp: 62 tablet Rfl: 1 loratadine (CLARITIN) 10 mg tablet TAKE (1) TABLET BY MOUTH ONCE DAILY. Disp: 31 tablet Rfl: 0 FLUoxetine (PROZAC) 20 mg capsule Take 20 mg by mouth once daily. Disp: Rfl: insulin glargine (LANTUS SOLOSTAR U-100 INSULIN) 100 unit/mL (3 mL) inpn 14 units in the AM and 10 units at HS Disp: 15 mL Rfl: 3 polyethylene glycol 3350 (MIRALAX, GLYCOLAX) 17 gram/dose powder Mix 1 capful (17 GMS) in 8 oz of water and take by mouth 2 times daily (routine scheduled dosage) Disp: 527 g Rfl: 3 polyethylene glycol 3350 (MIRALAX, GLYCOLAX) 17 gram/dose powder Mix 1 capful (17 GMS) in 8 oz of water and take by mouth at 8 pm as 3rd dose if no BM by 8pm. Disp: 527 g Rfl: 3 ULTICARE PEN NEEDLE 31 gauge x 16 ndle TAKE FIVE- SIX INJECTIONS DAILY INSTRUCTED Disp: 100 Each Rfl: 3 RENACIDIN 6.602-3.268 gram/100 mL irrigation USE 30ML INTRAVESICALRY VIA URINARY CATHETER 3 TIMES DAILY CLAMP 30MIN THEN DRAIN Disp: 2700 mL Rfl: 3 carbamide peroxide (DEBROX) 6.5 % otic solution Use 5 Drops in both ears twice daily. for 5 days then discontinue Disp: 1 Bottle Rfl: 1 insulin lispro (HUMALOG KWIKPEN INSULIN) 100 unit/mL inpn Inject 6 Units subcutaneously w MEALS. And additional sliding scale as instructed TDD: 30 currently 8 units subcutaneous at breakfast and supper, sliding scale 3 times a day before meals Disp: Rfl: ketoconazole (NIZORAL) 2 % shampoo APPLY LATHER TO AFFECTED SKIN ON FACE AND RINSE OFF AFTER 2-5 MIN. USE DAILY NEEDED Disp: 120 mL Rfl: 0 melatonin 3 mg tablet TAKE 1 TABLET BY MOUTH DAILY AT BEDTIME Disp: 100 tablet Rfl: 0 aspirin, enteric coated (ASPIRIN, ENTERIC COATED) 81 mg EC tablet TAKE (1) TABLET BY MOUTH DAILY IN THE MORNING. Disp: 28 tablet Rfl: [address] (PROTONIX) 40 mg tablet TAKE 1 TABLET BY MOUTH ONCE DAILY 1/2 HR BEFORE BREAKFAST Disp: 28 tablet Rfl: 11 metoprolol tartrate, short acting, (LOPRESSOR) 25 mg tablet TAKE (1/2) TABLET BY MOUTH TWICE DAILY. Disp: 31 tablet Rfl: 11 senna (SENNA LAX) 8.6 mg tab Take 1 tablet by mouth twice daily. Disp: 180 tablet Rfl: 3 Lancets lancets Test blood sugar(s) 8 times daily. Dx: Type 2 DM - Uncontrolled E11.65 Insulin: Yes Disp: 250 Each Rfl: 11 blood sugar diagnostic (BLOOD GLUCOSE TEST) test strip Test blood sugar(s) 8 times daily. Dx: Type 1 DM - Uncontrolled E10.69 Insulin: Yes Disp: 250 Strip Rfl: 11 fluticasone (FLONASE) 50 mcg/actuation nasal spray USE 2 SPRAYS IN EACH NOSTRIL ONCE DAILY. RINSE MOUTH AFTER USE. Disp: 3 Bottle Rfl: 3 oxybutynin (DITROPAN) 5 mg tablet Take 1 tablet by mouth as needed (once daily as needed for bladder spasms). Disp: 90 tablet Rfl: 4 albuterol HFA (PROVENTIL HFA, VENTOLIN HFA) 90 mcg/actuation inhaler Inhale 2 Puffs as instructed every 4 hours as needed. Disp: 1 Inhaler Rfl: 1 QUEtiapine (SEROQUEL) 200 mg tablet TAKE (1) TABLET BY MOUTH TWICE A DAY. Disp: 62 tablet Rfl: 1 QUEtiapine (SEROQUEL) 100 mg tablet TAKE 1 TABLET BY MOUTH ONCE DAILY AT 5 PM Disp: 31 tablet Rfl: 1 ammonium lactate (LAC-HYDRIN) 12 % cream Apply 1 application to affected area twice daily. Disp: 385 g Rfl: 3 COMPOUNDED PRESCRIPTION Please provide [facility] glucocard test strips to check blood sugar four to six Times a day Disp: 200 Strip Rfl: 3 bisacodyl (LAXATIVE, BISACODYL,) 10 mg supp 1 Suppository by RECTAL route once daily as needed. for constipation Disp: 20 Suppository Rfl: 12 glucose 4 gram chewable tablet TAKE 4 TABLETS BY MOUTH NEEDED FOR LOW BLOOD SUGAR BELOW 70 Disp: 10 tablet Rfl: 11 cholecalciferol (VITAMIN D3) 5,000 unit tab TAKE (1) TABLET BY MOUTH ONCE DAILY. Disp: 30 tablet Rfl: 2 glucagon, human recombinant, (GLUCAGON EMERGENCY KIT, HUMAN,) 1 mg injection Inject 1 mg intravenously one time only. Disp: Rfl: ND-ACID GAS RELIEF 80 mg chewable tablet CHEW 1 TABLET BY MOUTH WITH MEALS AND AT BEDTIME Disp: 120 tablet Rfl: 11 Ascorbic Acid (VITAMIN C) 1,000 mg tablet Take 1 tablet by mouth once daily. Disp: 90 tablet Rfl: 3 olopatadine (PAZEO) 0.7 % drop Use 1 Drop in eyes once daily. Disp: 2.5 mL Rfl: 11 atorvastatin (LIPITOR) 10 mg tablet TAKE ONE-HALF (1/2) TABLET AT BEDTIME. Disp: 15 tablet Rfl: 11 docusate sodium (COLACE) 100 mg capsule Take 1 capsule by mouth twice daily as needed for Constipation. Disp: 60 capsule Rfl: 11 No current facility-administered medications for this visit. CURRENT ALLERGIES ALLERGIES Allergen Reactions - Seasonal Allergies Other: See Comments Environmental-ragweed REVIEW OF SYSTEMS PAIN ASSESSMENT: General: fever 100.0 yesterday r/t UTI Neuro: denies stroke, seizures, headaches Respiratory: No history of current cough or dyspnea, or pneumonia in the past 6 weeks. No history of respiratory/pulmonary symptoms or problems Cardiovascular: DVT GI: constipation : UTI < 6 weeks (date) current, on cipro RECEP: N/A : N/A Endocrine: Diabetes Mellitus on insulin Hematology: No history of bleeding or clotting disorder. Pt is not taking anti-coagulation or platelet medications. No history of hematological symptoms or problems. Oncology: No history of CA metastasis, chemo within 30 days, or radiotherapy within 90 days. Has not lost 10% of body wt in 6 months. No history of oncological symptoms or problems. Psych: Anxiety Musculoskeletal: Negative for joint pain or swelling, back pain or muscle pain. Skin: Negative for lesions, rash and itching. Anemia: No PHYSICAL EXAMINATION BP 124/60 Pulse 87 Temp (Src) 98.3 (Oral) Ht 5' 4 (1.63m) Wt 218 lb (98.9kg) SpO2 94% BMI 37.40 kg/(m2). General Appearance: Well appearing, alert, in no acute distress, well-hydrated, well nourished., Obese Skin: Skin color, texture, turgor normal, no suspicious rashes or lesions Head: Normocephalic, no masses, lesions, tenderness or abnormalities Oropharynx: Lips, mucosa, and tongue normal, teeth and gums normal, oropharynx normal Neck: Supple, no adenopathy; thyroid symmetric, normal size, no bruits Lungs: Not examined Heart: Not examined Extremities: No deformities, edema, skin discoloration, clubbing or cyanosis. Good capillary refill. Neuro: He is slow mentally. Abdomen: Normal abdominal exam Anorectal: Deferred Commissions Manager present: Yes, Gian Silva Diagnostic tests reviewed for today's visit: CT scan of the abdomen Assessment ASSESSMENT Constipation RECOMMENDATION Dietary manipulation with the increased water intake. Kelby Huddleston MD FACS DATE: 12/25/17 TIME: 10:40 AM SHIELA Observed: 12/25/2017 Status: COMPLETED Source: [place] 10:00 AM [facility] REPOSITORY Office Visit (KAYY) JARON MORSE ([id number]) 1980 M Date Time Provider Department 12/25/17 10:00 AM KELBY HUDDLESTON During your visit today, we recorded the following information about you: Temperature Pulse Blood pressure Weight 98.3 degrees 87/minute 124/60 98.9 kg Height 1.626 m Kelby Huddleston MD FACS 12/25/2017 11:30 AM Signed New Patient Consult REASON FOR VISIT Jaron Morse is a 37 year old male who is scheduled for a consult at the request of Self for Consult (bowel blockage). My final recommendations will be communicated back to the requesting physician by the way of the shared medical record, fax, or via US Mail History of Present Illness: 37 year old male here for consult for bowel blockage , accompanied by attendants from his facility. 37 yo male comes with c/o chronic constipation - 3 years - intermittently improved but now seems to be improving. He reports moving his bowels 1-2 times /day - varies in frequency - sometimes he does not have bowel movements for 2-3 days. He reports hard stools. He says he has to strain to pass stools. His stools vary quantity - sometimes his stools are very small. His dietary intake of fluid consists of coffee and sodas with minimal water. No bleeding NH. No h/o watery bowel movements/ recent change in bowel movements. Weight gain over the past 6 months - 5lbs. He reports good appetite. No h/o abdominal pain, nausea, vomiting. He was last seen in 2014 - diagnosed with a chronic motility disorder which was satisfactorily managed for many years. Last colonoscopy - 2012 - ?- Preparation of the colon was poor. ? - The entire examined colon is normal on direct and ? retroflexion views. Last CT scan - 12/18/2017 - Non specific ileus with diffuse fecal retention in colon. Nonspecific nephrocalcinosis. Moderate anterior abdominal wall hernia with loop of small bowel without incarceration or proximal obstruction. FUNCTIONAL STATUS: PAST MEDICAL HISTORY Diagnosis Date - Acute deep vein thrombosis (DVT) of right upper extremity (HCC) 03/19/15 Diagnosed during hospital admission; coumadin started - Acute embolism and thrombosis of deep vein of right upper extremity (HCC) 04/09/2015 - Acute gastritis without mention of hemorrhage 08/21/2012 - Allergic rhinitis - Anemia 03/07/2015 - Attention deficit disorder with hyperactivity(314.01) - Chronic renal failure Dr. 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 - Hand fracture 07/2012 right - Hemorrhage of gastrointestinal tract, unspecified 08/21/2012 - Hypernatremia 03/07/2015 - Incisional infection 02/04/16 - Nocturnal enuresis 04/28/2005 - OTHER MENTAL RETARDATION - MILD 02/07/2005 - Presence of suprapubic catheter ([facility]) Dr. Frias - Retention of urine, unspecified 08/20/2007 - Type I (juvenile type) diabetes mellitus without mention of complication, not stated as uncontrolled 02/04/2005 Dr. Olmedo PAST SURGICAL HISTORY Procedure Laterality Date - APPENDECTOMY 2000 - AV FUSE, UPPR ARM, CEPHALIC 12/17/15 Transposition left upper arm cephalic vein to brachial artery arteriovenous fistula creation - COLONOSCOP W/ OR W/O [facility] SPEC 12/04/14 decompression for pseudoobstruction - COLONOSCOPY 08/21/2012 and EGD - EGD W/REM FB STOMACH/DUOD 01/02/2017 removal of PEG tube with EGD to remove fragment - EGD W/REM FB STOMACH/DUOD 12/2016 - IR VASCULAR ACCESS TEAM PICC REPOSITION 04/04/2015 - MIDLINE INSERTION/CONSULT 03/03/2015 - PAST SURGICAL HISTORY OF Laparotomy - PAST SURGICAL HISTORY OF 01/22/2015 negative exploratory laparotomy for pneumatosis intestinalis high grade bowel obstruction - PICC LINE INSERT/CONSULT 04/02/2015 - PICC LINE INSERT/CONSULT 04/03/2015 - SUPRAPUBIC CATHETER FAMILY HISTORY Problem Relation Age of Onset - unknown [Other] [OTHER] - Diabetes Father Diabetic, unsure of which type, did not want to provide additional FH details. 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) 09/14/2011 Monisha Pearson ([place])(Hist) Ivy No Priority: C Overview Addendum 12/15/2015 11:34 AM by Francine Ricci DVT of left axillary vein, acute ([facility]) 08/01/2017 Corinne ([place]) Older No Allergic rhinitis Francine Clark No Seborrheic dermatitis 10/05/2015 Francine Clark No Overview Signed 10/05/2015 3:28 PM by Francine Clark eyebrows and devlin and mustache area, as well as face 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 Francine Clark No Overview Signed 07/18/2014 5:43 PM by Francine Clark recurrent SBO and global dysmotility diagnosis when at [facility] Suprapubic catheter ([facility]) 12/09/2010 Claudia (Angie)(Hist) Trini No Mild intellectual disabilities 08/22/2008 Francine Clark No Hydronephrosis 10/18/2007 Alec Orozco No Attention deficit disorder with hyperactivity(314.01) 02/04/2005 [facility] No Uncontrolled type 1 diabetes mellitus ([facility]) 02/04/2005 [facility] No MEDICATIONS Current Outpatient Prescriptions: apixaban (ELIQUIS) 2.5 mg tab tab(s) Take 1 tablet by mouth twice daily. Disp: 62 tablet Rfl: 1 loratadine (CLARITIN) 10 mg tablet TAKE (1) TABLET BY MOUTH ONCE DAILY. Disp: 31 tablet Rfl: 0 FLUoxetine (PROZAC) 20 mg capsule Take 20 mg by mouth once daily. Disp: Rfl: insulin glargine (LANTUS SOLOSTAR U-100 INSULIN) 100 unit/mL (3 mL) inpn 14 units in the AM and 10 units at HS Disp: 15 mL Rfl: 3 polyethylene glycol 3350 (MIRALAX, GLYCOLAX) 17 gram/dose powder Mix 1 capful (17 GMS) in 8 oz of water and take by mouth 2 times daily (routine scheduled dosage) Disp: 527 g Rfl: 3 polyethylene glycol 3350 (MIRALAX, GLYCOLAX) 17 gram/dose powder Mix 1 capful (17 GMS) in 8 oz of water and take by mouth at 8 pm as 3rd dose if no BM by 8pm. Disp: 527 g Rfl: 3 ULTICARE PEN NEEDLE 31 gauge x 5/16 ndle TAKE FIVE- SIX INJECTIONS DAILY INSTRUCTED Disp: 100 Each Rfl: 3 RENACIDIN 6.602-3.268 gram/100 mL irrigation USE 30ML INTRAVESICALRY VIA URINARY CATHETER 3 TIMES DAILY CLAMP 30MIN THEN DRAIN Disp: 2700 mL Rfl: 3 carbamide peroxide (DEBROX) 6.5 % otic solution Use 5 Drops in both ears twice daily. for 5 days then discontinue Disp: 1 Bottle Rfl: 1 insulin lispro (HUMALOG KWIKPEN INSULIN) 100 unit/mL inpn Inject 6 Units subcutaneously w MEALS. And additional sliding scale as instructed TDD: 30 currently 8 units subcutaneous at breakfast and supper, sliding scale 3 times a day before meals Disp: Rfl: ketoconazole (NIZORAL) 2 % shampoo APPLY LATHER TO AFFECTED SKIN ON FACE AND RINSE OFF AFTER 2-5 MIN. USE DAILY NEEDED Disp: 120 mL Rfl: 0 melatonin 3 mg tablet TAKE 1 TABLET BY MOUTH DAILY AT BEDTIME Disp: 100 tablet Rfl: 0 aspirin, enteric coated (ASPIRIN, ENTERIC COATED) 81 mg EC tablet TAKE (1) TABLET BY MOUTH DAILY IN THE MORNING. Disp: 28 tablet Rfl: [address] (PROTONIX) 40 mg tablet TAKE 1 TABLET BY MOUTH ONCE DAILY 1/2 HR BEFORE BREAKFAST Disp: 28 tablet Rfl: 11 metoprolol tartrate, short acting, (LOPRESSOR) 25 mg tablet TAKE (1/2) TABLET BY MOUTH TWICE DAILY. Disp: 31 tablet Rfl: 11 senna (SENNA LAX) 8.6 mg tab Take 1 tablet by mouth twice daily. Disp: 180 tablet Rfl: 3 Lancets lancets Test blood sugar(s) 8 times daily. Dx: Type 2 DM - Uncontrolled E11.65 Insulin: Yes Disp: 250 Each Rfl: 11 blood sugar diagnostic (BLOOD GLUCOSE TEST) test strip Test blood sugar(s) 8 times daily. Dx: Type 1 DM - Uncontrolled E10.69 Insulin: Yes Disp: 250 Strip Rfl: 11 fluticasone (FLONASE) 50 mcg/actuation nasal spray USE 2 SPRAYS IN EACH NOSTRIL ONCE DAILY. RINSE MOUTH AFTER USE. Disp: 3 Bottle Rfl: 3 oxybutynin (DITROPAN) 5 mg tablet Take 1 tablet by mouth as needed (once daily as needed for bladder spasms). Disp: 90 tablet Rfl: 4 albuterol HFA (PROVENTIL HFA, VENTOLIN HFA) 90 mcg/actuation inhaler Inhale 2 Puffs as instructed every 4 hours as needed. Disp: 1 Inhaler Rfl: 1 QUEtiapine (SEROQUEL) 200 mg tablet TAKE (1) TABLET BY MOUTH TWICE A DAY. Disp: 62 tablet Rfl: 1 QUEtiapine (SEROQUEL) 100 mg tablet TAKE 1 TABLET BY MOUTH ONCE DAILY AT 5 PM Disp: 31 tablet Rfl: 1 ammonium lactate (LAC-HYDRIN) 12 % cream Apply 1 application to affected area twice daily. Disp: 385 g Rfl: 3 COMPOUNDED PRESCRIPTION Please provide [facility] glucocard test strips to check blood sugar four to six Times a day Disp: 200 Strip Rfl: 3 bisacodyl (LAXATIVE, BISACODYL,) 10 mg supp 1 Suppository by RECTAL route once daily as needed. for constipation Disp: 20 Suppository Rfl: 12 glucose 4 gram chewable tablet TAKE 4 TABLETS BY MOUTH NEEDED FOR LOW BLOOD SUGAR BELOW 70 Disp: 10 tablet Rfl: 11 cholecalciferol (VITAMIN D3) 5,000 unit tab TAKE (1) TABLET BY MOUTH ONCE DAILY. Disp: 30 tablet Rfl: 2 glucagon, human recombinant, (GLUCAGON EMERGENCY KIT, HUMAN,) 1 mg injection Inject 1 mg intravenously one time only. Disp: Rfl: ND-ACID GAS RELIEF 80 mg chewable tablet CHEW 1 TABLET BY MOUTH WITH MEALS AND AT BEDTIME Disp: 120 tablet Rfl: 11 Ascorbic Acid (VITAMIN C) 1,000 mg tablet Take 1 tablet by mouth once daily. Disp: 90 tablet Rfl: 3 olopatadine (PAZEO) 0.7 % drop Use 1 Drop in eyes once daily. Disp: 2.5 mL Rfl: 11 atorvastatin (LIPITOR) 10 mg tablet TAKE ONE-HALF (1/2) TABLET AT BEDTIME. Disp: 15 tablet Rfl: 11 docusate sodium (COLACE) 100 mg capsule Take 1 capsule by mouth twice daily as needed for Constipation. Disp: 60 capsule Rfl: 11 No current facility-administered medications for this visit. CURRENT ALLERGIES ALLERGIES Allergen Reactions - Seasonal Allergies Other: See Comments Environmental-ragweed REVIEW OF SYSTEMS PAIN ASSESSMENT: General: fever 100.0 yesterday r/t UTI Neuro: denies stroke, seizures, headaches Respiratory: No history of current cough or dyspnea, or pneumonia in the past 6 weeks. No history of respiratory/pulmonary symptoms or problems Cardiovascular: DVT GI: constipation : UTI < 6 weeks (date) current, on cipro RECEP: N/A : N/A Endocrine: Diabetes Mellitus on insulin Hematology: No history of bleeding or clotting disorder. Pt is not taking anti-coagulation or platelet medications. No history of hematological symptoms or problems. Oncology: No history of CA metastasis, chemo within 30 days, or radiotherapy within 90 days. Has not lost 10% of body wt in 6 months. No history of oncological symptoms or problems. Psych: Anxiety Musculoskeletal: Negative for joint pain or swelling, back pain or muscle pain. Skin: Negative for lesions, rash and itching. Anemia: No PHYSICAL EXAMINATION BP 124/60 Pulse 87 Temp (Src) 98.3 (Oral) Ht 5' 4 (1.63m) Wt 218 lb (98.9kg) SpO2 94% BMI 37.40 kg/(m2). General Appearance: Well appearing, alert, in no acute distress, well-hydrated, well nourished., Obese Skin: Skin color, texture, turgor normal, no suspicious rashes or lesions Head: Normocephalic, no masses, lesions, tenderness or abnormalities Oropharynx: Lips, mucosa, and tongue normal, teeth and gums normal, oropharynx normal Neck: Supple, no adenopathy; thyroid symmetric, normal size, no bruits Lungs: Not examined Heart: Not examined Extremities: No deformities, edema, skin discoloration, clubbing or cyanosis. Good capillary refill. Neuro: He is slow mentally. Abdomen: Normal abdominal exam Anorectal: Deferred Commissions Manager present: Yes, Gian Silva Diagnostic tests reviewed for today's visit: CT scan of the abdomen Assessment ASSESSMENT Constipation RECOMMENDATION Dietary manipulation with the increased water intake. Kelby Huddleston MD FACS DATE: 12/25/17 TIME: 10:40 AM Referring Provider: SELF [200] Allergies As of Date: 12/25/2017 Noted Allergy Reaction SEASONAL ALLERGIES 12/03/2012 14 - Other: See Comments Comments: Environmental-ragweed Date Reviewed: 12/25/2017 Reviewed by: Gian (Rn) Srikanth RN - Fully Assessed Reason for Visit: Consult [173] Cmt: bowel blockage Primary Visit Diagnosis:Constipation by delayed colonic transit [K59.01] Prescriptions as of 12/25/2017 Sig: CIPRO ORAL Take by mouth. SENNOSIDES 8.6 MG TABLET Take 8.6 mg by mouth twice da* APIXABAN 2.5 MG TABLET Take 1 tablet by mouth twice * LORATADINE 10 MG TABLET TAKE (1) TABLET BY MOUTH ONCE* FLUOXETINE 20 MG CAPSULE Take 20 mg by mouth once jacquelin* INSULIN GLARGINE (U-100) 100 * 14 units in the AM and 10 uni* POLYETHYLENE GLYCOL 3350 17 G* Mix 1 capful (17 GMS) in 8 oz* POLYETHYLENE GLYCOL 3350 17 G* Mix 1 capful (17 GMS) in 8 oz* ULTICARE PEN NEEDLE 31 GAUGE * TAKE FIVE- SIX INJECTIONS VASYL* RENACIDIN 6.602 GRAM-3.268 GR* USE 30ML INTRAVESICALRY VIA U* CARBAMIDE PEROXIDE 6.5 % EAR * Use 5 Drops in both ears twic* INSULIN LISPRO (U-100) 100 UN* Inject 6 Units subcutaneously* KETOCONAZOLE 2 % SHAMPOO APPLY LATHER TO AFFECTED SKIN* MELATONIN 3 MG TABLET TAKE 1 TABLET BY MOUTH DAILY * ASPIRIN 81 MG TABLET,DELAYED * TAKE (1) TABLET BY MOUTH JACQUELIN* PANTOPRAZOLE 40 MG TABLET,DEL* TAKE 1 TABLET BY MOUTH ONCE D* METOPROLOL TARTRATE 25 MG TAB* TAKE (1/2) TABLET BY MOUTH TW* SENNOSIDES 8.6 MG TABLET Take 1 tablet by mouth twice * LANCETS Test blood sugar(s) 8 times d* BLOOD SUGAR DIAGNOSTIC STRIPS Test blood sugar(s) 8 times d* FLUTICASONE 50 MCG/ACTUATION * USE 2 SPRAYS IN EACH NOSTRIL * OXYBUTYNIN CHLORIDE 5 MG TABL* Take 1 tablet by mouth as nee* ALBUTEROL SULFATE HFA 90 MCG/* Inhale 2 Puffs as instructed * QUETIAPINE 200 MG TABLET TAKE (1) TABLET BY MOUTH TWIC* QUETIAPINE 100 MG TABLET TAKE 1 TABLET BY MOUTH ONCE D* AMMONIUM LACTATE 12 % TOPICAL* Apply 1 application to affect* COMPOUNDED PRESCRIPTION Please provide ARKKAY glucoca* BISACODYL 10 MG RECTAL SUPPOS* 1 Suppository by RECTAL route* GLUCOSE 4 GRAM CHEWABLE TABLET TAKE 4 TABLETS BY MOUTH NE* CHOLECALCIFEROL (VITAMIN D3) * TAKE (1) TABLET BY MOUTH ONCE* GLUCAGON (HUMAN RECOMBINANT) * Inject 1 mg intravenously one* ND-ACID GAS RELIEF 80 MG CHEW* CHEW 1 TABLET BY MOUTH WITH M* ASCORBIC ACID (VITAMIN C) 1,0* Take 1 tablet by mouth once d* OLOPATADINE 0.7 % EYE DROPS Use 1 Drop in eyes once daily. ATORVASTATIN 10 MG TABLET TAKE ONE-HALF (1/2) TABLET AT* DOCUSATE SODIUM 100 MG CAPSULE Take 1 capsule by mouth twice* Medication notes this encounter INSULIN GLARGINE (U-100) 100 UNIT/ML (3 ML) SUBCUTANEOUS PEN >> Gian Silva RN, RN 12/25/2017 10:39 AM >> GIAN SILVA Dec 25, 2017 10:39 AM 14 units twice a day INSULIN LISPRO (U-100) 100 UNIT/ML SUBCUTANEOUS PEN >> Gian Silva RN, RN 12/25/2017 10:38 AM >> GIAN SILVA Dec 25, 2017 10:38 AM 8 units in am, 4u at lunch, 8u at dinner QUETIAPINE 100 MG TABLET >> Gian Silva RN, RN 12/25/2017 10:33 AM >> GIAN SILVA Dec 25, 2017 10:33 AM 200mg one tablet twice per day Problem List As Of Date 12/25/2017 Noted Resolved ATTN DEFICIT W HYPERACT [F90.9] INVALID FOR* Uncontrolled type 1 diabetes mellitus (HCC) [E1*INVALID FOR* HYDRONEPHROSIS [N13.30] INVALID FOR* 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 Allergic rhinitis [J30.9] DVT of left axillary vein, acute (HCC) [I82.A12]INVALID FOR* Encounter Status:Closed by KELBY HUDDLESTON MD, FACS on 12/25/17 EMERGENCY DEPARTMENT Observed: 12/25/2017 Status: F Source: [place] SUMMARY 2:21 AM [facility] REPOSITORY [facility] Medical Records Department [address] [place] [address] Emergency Department Summary 12/24/[id number] MR#: [id number] Acct: [id number] Name: JARON MORSE Rep #: [id number] : 1980 37 From: Harshad Patel MD PCP: Francine Clark MD Status: DEP ER - ER Visit Summary Date of Service: 12/24/17 Chief Complaint: Hematuria History of Present Illness: The patient is a [address] Clark, Dr. Lopez, and Dr. Gonzales. He has a suprapubic catheter. Comes in because he noticed blood in his catheter bag today. States he has had a temperature of 100 . He denies any abdominal pain, nausea, vomiting, diarrhea, flank pain, or other complaints. Physical Examination: Vitals: Stable. Afebrile. General: Well-nourished and well-developed. Head: Normocephalic atraumatic. Neck: Supple, no lymphadenopathy. No JVD. Nontender. Cardiovascular: Regular rate and rhythm. No murmurs. Respiratory: No respiratory distress. Clear to auscultation bilaterally. Abdominal: Soft, nontender, nondistended, normal bowel sounds. No guarding, rebound, or peritoneal signs. Back: Nontender. Extremities: Nontender, no edema. Skin: Normal color, no rash. Neurologic: Alert and oriented 3. Cranial nerves II through XII are intact. Normal strength and sensation. Psych: Normal affect. Test Results: CBC is marked for an H AND H 10 point and 33.7. Chem-7 is more for a calcium of 8.1, BUN 60, creatinine 4.04. Baseline creatinine is from 2.47- 3.88 in 2018. UA shows no blood, but 5200 white blood cells and 1+ bacteria. Emergency Department Course and Treatment: Reviewed the patient's prior urine cultures. His last urine culture grew Serratia and Citrobacter. The only oral antibiotic that both of these was sensitive to was Cipro. The patient had been placed on that. Treatment Plan: The patient was discussed with Dr. Rodriguez. He does have a suprapubic catheter that is likely going to always have white cells and be colonized. However, given the temperature of 100 we decided to treat him with oral antibiotics. His creatinine clearance is 21. He will be discharged on Cipro 250 mg every 18 hours and instructed to follow-up Dr. Lopez in 3 days to get the results of his urine culture. Instructed to return to emerge from if he develops fever, nausea, vomiting, or other symptoms of a worsening infection. Disposition: To home in improved and stable condition. Impression: 1. Suprapubic catheter. 2. Chronic renal insufficiency. This note was generated with righTune dictation software. It may contain incorrect words, spelling, and punctuation that were not noted in review of the chart prior to signing ED Disposition - Plan for ED Patient: Disposition: Home or Assisted Living Chief Complaint: Franco C/O Instructions: Discharge Instructions: Caring for Your Suprapubic Catheter Prescriptions: Ciprofloxacin [Cipro] 250 mg PO UD #10 tablet Referrals: Jose Juan Lopez MD [STAFF PHYSICIAN] - 12/27/17 What to do if you have Problems For any increased pain, shortness of breath, bleeding, nausea or vomiting, chest pain, or any unexpected problems, contact your Primary Care Provider. Call [facility] ([phone]) or report to the closest Emergency Room. Call 911 if necessary. 12/25/17 0221 <Electronically signed by Harshad Patel MD> Date Harshad Patel MD Cosigner Signature (If Indicated): Date CC: Francine Clark MD URINALYSIS, COMPLETE Collected: 12/24/2017 Status: F Source: GREG 7:50 PM [facility] REPOSITORY Order Comment: Order Date: 12/24/17 How was Urine Obtained? CLEAN CATCH TYPE CODE TESTS RESULT OUT OF RANGE REFERENCE UNITS LAB L400.3000 Yellow COLOR Normal Yellow LAB L400.3050 Clear Normal CLARITY Sl. Cloudy LAB L400.3200 Normal mg/dl Normal GLUCOSE, UR Normal LAB L400.3300 Negative mg/dL Normal BILIRUBIN URINE Negative LAB L400.3400 Negative mg/dl Normal KETONE UR Negative LAB L400.3465 1.002-1.030 Normal SP.GR. DIPSTX 1.010 LAB L400.3550 5.0 - 8.0 pH UR Normal 6.5 LAB L400.3600 Negative mg/dl High PROT 30 DIPSTX LAB L400.3700 Normal mg/dl Normal UROBILI Normal LAB L400.3750 Negative Normal NITRITE UR Negative LAB L400.3780 Negative /ul High OCCULT BLOOD-UR 150 LAB L400.3800 Negative /ul High LEUK ESTERASE 500 LAB L400.4050 0-5 /hpf WBC Normal 50-100 SEEN LAB L400.4100 0-5 /hpf 0 Normal RBC-UA SEEN LAB L400.4150 0-5 /hpf SQUAM Normal EPI 0-5 SEEN LAB L400.4300 None Seen /hpf 1+ Normal BACTERIA LAB L400.4350 <or=2+ /hpf 0 Normal MUCUS, URINE SEEN LAB L400.5200 None Seen /hpf 3+ Normal YEAST-URINE Performed By: #### L400.0001 #### [facility] [address] [place], [place], [address] Observed: 12/24/2017 Status: F Source: GREG CULTURE, URINE 7:50 PM [facility] REPOSITORY Order Date: 12/24/17 Urine Culture ORGANISM 1: Citrobacter freundii [place] Count 50,000-80,000 Citrobacter freundii: REACTION Amoxacillin/Clavulanic Acid $ >=32 R Cefazolin $ >=64 R Cefepime $ <=1 S Ceftriaxone $ 32 I Ciprofloxacin $ 1 S Ertapenim $$$ <=0.5 S Gentamicin $ <=1 S Imipenem *NF 1 S Levofloxacin $ 2 S Nitrofurantoin $ 32 S Tobramycin $ <=1 S Trimethoprim/Sulfametho $ >=320 R (NF) indicates non-formulary drug at [facility]. Approval by Infectious Disease Specialist required before non-formulary drugs may be ordered and/or dispensed. Performed By: #### M100.0650 #### [facility] [address] [place], [place], [address] CBC W/DIFF, AUTOMATED Collected: 12/24/2017 Status: F Source: BARTOW 7:10 PM [facility] REPOSITORY TYPE CODE TESTS RESULT OUT OF RANGE REFERENCE UNITS LAB L100.1000 4.4-11.0 K/mm3 Normal WBC 7.4 LAB L100.1200 4.6-6.2 M/mm3 Low RBC 3.52 LAB L100.1300 13.0-16.5 g/dl Low HGB 10.9 LAB L100.1400 40-54 % Low HCT 33.7 LAB L100.1500 80-94 fL High MCV 95.7 LAB L100.1600 27.0-32.0 pg Normal MCH 31.0 LAB L100.1700 32-36 g/gl Normal MCHC 32.3 LAB L100.1810 11.6-14.6 % Normal RDW CV 13.3 LAB L100.1820 35.1-43.9 fl High RDW SD 46.6 LAB L100.1900 150-450 K/mm3 Normal PLT 187 LAB L100.2000 6.2-12.0 fl Normal MPV 10.3 LAB L100.2100 47-70 % Normal NEUT% 64.0 LAB L100.2200 19-41 % Normal LY% 24.2 LAB L100.2300 0-10 % Normal MONO% 9.6 LAB L100.2400 0-5 % Normal EO% 2.0 LAB L100.2500 0-1 % Normal BASO% 0.1 LAB L100.2550 0.0-0.9 % Normal IM GRAN % 0.100 Result Comment: IG% - Immature Granulocytes (promyelocytes, myelocytes and metamyelocytes) > 1% indicates that a LEFT SHIFT is Present. LAB L100.2620 2.0-7.7 X10 3/uL Normal Absolute Neut 4.7 LAB L100.2720 0.83-4.51 X10 3/ul Normal Absolute Lymph 1.79 Performed By: #### L100.0100 #### [facility] [address] [place], [place], [address] BASIC METABOLIC Collected: 12/24/2017 Status: F Source: GREG PROFILE (BMP) 7:10 PM [facility] REPOSITORY TYPE CODE TESTS RESULT OUT OF RANGE REFERENCE UNITS LAB L501.0100 74-106 mg/dL Normal GLU 86 Result Comment: Please note revised GLUCOSE reference range effective 2017. LAB L501.1000 7-18 mg/dL High BUN 60 LAB L501.1100 0.70-1.30 mg/dL High CREAT,SERUM 4.04 Result Comment: The validity of the calculated GFR AND GFRAA in patients over 70 years has not been determined. Clinical correlation is essential. LAB L501.1110 >60 mL/min Low EST GFR 18 Result Comment: Non- GFR Calc LAB L501.1115 >60 mL/min Low EST GFR - AA 22 Result Comment: GFR Calc LAB L501.1255 ml/min Normal Estimated CRCL 21.37 LAB L501.1300 10-20 RATIO Normal BUN/CRE 14.9 LAB L501.2200 8.5-10 mg/dL Low .1 CA 8.1 LAB L501.5300 136-14 mmol/L Normal 5 NA 140 LAB L501.5600 3.5-5. mmol/L Normal 1 K 4.6 LAB L501.5900 98-107 mmol/L Normal CL 105 LAB L501.6100 21.0-3 mmol/L Normal 2.0 CO2 27.0 LAB L501.6200 5-15 Normal GAP 8 Performed By: #### L500.2500 #### [facility] [address] [place], [place], [address] VENOUS DUPLEX UPPER Observed: 12/19/2017 Status: F Source: GREG EXTREMITY 4:49 PM [facility] REPOSITORY [facility] Cardiovascular Services [address] [place] [address] Saphenous Vein Mapping, Bilat 12/19/17 1301 MR#: [id number] Acct: [id number] Name: JARON MORSE Rep #: [id number] : 1980 37 From: Hugh Abreu MD Attending Dr: Hugh Abreu MD Status: REG CLI Ordering Dr: Taylor Owens PA-C Date: 12/19/17 Location: CVS Sex: M C Admitted: Reason For Study: Assess for possible dialysis access placement Right Arm Left Arm Right Cephalic Vein at the wrist Left Cephalic Vein at the wrist measures .15 measures .23 x .23 cm. x .15 cm. Right Cephalic Vein in the forearm Left Cephalic Vein in the forearm measures .24 x .24 cm. measures .18 x .18 cm. Right Cephalic Vein below antecub Left Cephalic Vein below antecub measures .30 x .34 cm. measures .22 x .23 cm. Right Cephalic Vein above antecub Cephalic above antecubital space is non- measures .32 x .32 cm. compressible. Right Cephalic Vein mid bicep measures .33 Basilic vein at origin measures .36 x .33 x .32 cm. cm. Right Cephalic Vein at the shoulder Basilic vein at bicep measures .21 x .25 cm. measures .39 x .40 cm. Basilic vein above antecub measures .21 Right Basilic Vein at the origin x .23 cm. measures .41 x .41 cm. Brachial artery - .38 x .36 cm with a Right Basilic Vein mid bicep measures .35 velocity of 85.0 cm/s x .35 cm. Radial artery - .15 x .18 cm with a velocity Right Basilic Vein above antecub of 25.5 cm/s. measures .40 x .40 cm. Brachial artery - .31 x .36 cm with a velocity of 65.2 cm/s Radial artery - .17 x .18 cm with a velocity of 53.8 cm/sec. < Interpretation Summary Patent and compressible right upper extremity cephalic and basilic veins with dimensions as noted. Thrombosed left upper arm cephalic vein Patent and compressible left upper arm basilic vein. Normal flow bilateral brachial arteries with small bilateral radial arteries. Ordering Physician: Taylor Owens PA-C Referring Physician: Hugh Abreu Performed By: Yas Dalton RVT Reason For Study: Assess for possible dialysis access placement < Interpretation Summary Patent and compressible right upper extremity cephalic and basilic veins with dimensions as noted. Thrombosed left upper arm cephalic vein Patent and compressible left upper arm basilic vein. Normal flow bilateral brachial arteries with small bilateral radial arteries. Ordering Physician: Taylor Owens PA-C Referring Physician: Hugh Abreu Performed By: Yas Dalton RVT 12/19/17 1879 Date Hugh Abreu MD CC: Taylor Owens PA-C; Francine Clark MD; Hugh Abreu MD Date Dictated: 12/19/17 1301 Date Transcribed: 12/19/17 1649 Cryogenic Transport Driver: Signed SURGERY VISIT REPORT Observed: 12/14/2017 Status: F Source: GREG 12:49 PM [facility] REPOSITORY [facility] [address] [place], [place] [id number] OFFICE VISIT Date of Service: 12/13/17 MR#: [id number] Acct: [id number] Name: JARON MORSE Rep #: [id number] : 1980 Provider: Taylor Owens PA-C Age/Sex: 37/M Location: [facility] Status: Signed Intake Vital Signs12/13/17 Height 5 ft 4.5 in 12/13/17 Weight: 218 lb Intake Visit Reasons: AV Fistula not working properly Cyber Incident Analyst Required: No Is patient in pain?: No Allergies No Known Allergies Allergy (Verified 12/13/17 14:20) Medications Ascorbic Acid [Vitamin C] 1,000 mg PO DAILY 02/21/15 [History Confirmed 12/13/17] Aspirin [Aspirin, Baby] 81 mg PO DAILY 02/21/15 [History Confirmed 12/13/17] Fluoxetine [Prozac] 30 mg PO DAILY 02/21/15 [History Confirmed 12/13/17] Quetiapine Fumarate [Seroquel] 100 mg PO 1700 02/21/15 [History Confirmed 12/13/17] Quetiapine Fumarate [Seroquel] 200 mg PO BID 02/21/15 [History Confirmed 12/13/17] Loratadine [Claritin] 10 mg PO DAILY 07/08/15 [History Confirmed 12/13/17] Melatonin 3 mg PO QHS 12/09/15 [History Confirmed 12/13/17] Insulin Lispro [Humalog Kwikpen] 0 unit SQ TIDCM 08/29/16 [History Confirmed 12/13/17] Atorvastatin Calcium 5 mg PO QHS 11/07/16 [History Confirmed 12/13/17] Pantoprazole Sodium [Protonix] 20 mg PO DAILY 11/07/16 [History Confirmed 12/13/17] Sennosides [Senna] 8.6 mg PO BID 12/29/16 [History Confirmed 12/13/17] Metoprolol Tartrate 12.5 mg PO BID 05/20/17 [History Confirmed 12/13/17] Oxybutynin [Ditropan] 5 mg PO DAILY PRN 05/20/17 [History Confirmed 12/13/17] Polyethylene Glycol 3350 [Miralax] 17 gm PO BID PRN PRN #0 05/21/17 [Rx Confirmed 12/13/17] Citric AC/Gluconolact/Mag Carb [Renacidin Irrigation Solution] 30 ml IRRIGATION TID 06/17/17 [History Confirmed 12/13/17] Apixaban [Eliquis] 2.5 mg PO DAILY 11/30/17 [History Confirmed 12/13/17] Cholecalciferol (Vitamin D3) [Vitamin D3] 5,000 unit PO DAILY 11/30/17 [History Confirmed 12/13/17] Ciprofloxacin [Cipro] 500 mg PO BID #14 tab 11/30/17 [Rx Confirmed 12/13/17] Ferrous Sulfate [Iron] 650 mg PO DAILY 11/30/17 [History Confirmed 12/13/17] Fluticasone Propionate [Flovent Diskus] 50 mcg IH DAILY 11/30/17 [History Confirmed 12/13/17] Olopatadine HCl [Pazeo] 2.5 ml OP DAILY 11/30/17 [History Confirmed 12/13/17] acetaminophen 325 mg tablet 650 mg PO Q8H PRN tab 12/13/17 [History Confirmed 12/13/17] albuterol sulfate HFA 90 mcg/actuation aerosol inhaler 2 puff INHALATION Q4H PRN 12/13/17 [History Confirmed 12/13/17] insulin glargine (U-100) 100 unit/mL (3 mL) subcutaneous pen 10 unit SC BID ml 12/13/17 [History Confirmed 12/13/17] ketoconazole 2 % shampoo 1 applic TOPICAL Q2W 12/13/17 [History Confirmed 12/13/17] PFS Medical History hx of PICC Line (Acute) Strabismus (Chronic) Disruptive Behavior Disorder (Chronic) Diabetic retinopathy (Chronic) History of constipation (Chronic) Aspiration into airway (Suspected) Wheezing (Acute) Chronic kidney disease (Chronic) Hyponatremia (Acute) Ileus (Acute) History of Suprapubic Cystostomy (Chronic) History of anxiety disorder (Chronic) Surgical History History of suprapubic catheter (Acute) Hx of exploratory laparotomy (Acute) History of esophagogastroduodenoscopy (EGD) (Acute) Hx of colonoscopy (Acute) Hx of arteriovenostomy for renal dialysis (Acute) Hx of appendectomy (Acute) Social History Smoking Status: Never smoker second hand exposure: No alcohol intake: never substance use type: does not use caffeine: Yes what type of physical activity do you participate in: none frequency: does not exercise seatbelt use: always HPI HPI HPI: JARON MORSE, is a 37 M who presents with non-functioning left upper extremity fistula. Patient has a left upper extremity cephalic vein to brachial artery arteriovenous fistula, which was created on 12/16/15. A Dacron cuff was placed at the time of creation. Patient was last evaluated by Dr. Abreu in August 2016. Patient was to follow-up in 4 months, however never returned. Patient was hospitalized in August 2017 at [facility] with respiratory failure and renal blood clot. Per patient, dialysis was to be initiated at that hospitalization however the fistula was weak. Patient denies being on dialysis currently. Dr. Gonzales is his weblogic administrator. Patient has suprapubic catheter for urinary retention, diabetes type 1, and mild mental retardation. Patient has a history of blood clots. He is currently on Eliquis and aspirin. ROS General General: Yes fatigue; no weight change, appetite, colon cancer, breast cancer or weakness HEENT HEENT: Yes difficulty swallowing; no eye injury, eye surgery, swollen glands or hoarseness Endo Endocrine: Yes diabetes mellitus; no thyroid disease, thyroid cancer, Hair loss, heat intolerance or cold intolerance Skin Skin: No rash or changing moles Breast Breast: No left breast lump, right breast lump, nipple discharge, breast pain, abnormal mammogram, abnormal US or breast enlargement Musc Musculoskeletal: Yes back problems; no arthritis, rheumatoid arthritis, gout or joint pain Cardio Cardiovascular: Yes high blood pressure; no murmur, pacemaker, heart disease, atrial fibrillation, heart attack, heart stent, palpitations, shortness of breat with exertion or chest pain Psych Psychiatric: No depression, anxiety or hearing voices Gastro Gastrointestinal: Yes acid reflux, No abdominal pain, No nausea or vomiting, No diarrhea, No constipation, No blood in stool, No hemorrhoids, No ulcers, No gallbladder problem, No black,tarry stools Nathaniel Hematologic: Yes blood thinners, No blood disorders, No bleeding, Yes anemia, Yes blood clots Neuro Neurologic: No system reviewed and no additional complaints, except as docu, No as per HPI, No abnormal walking, No abnormal hearing, No abnormal movements, No abnormal speech, No behavioral changes, No burning sensations, No confusion, No seizure-like activity, No unsteadiness, No dizziness, No localized weakness, No frequent falls, No headache(s), No lack of coordination, No loss of vision, No memory loss, Yes numbness, No other visual disturbances, No radiating pain, No restless legs, No sensory deficit, No fainting, Yes tingling, No tremor(s), No weakness, No other Exam Const General: cooperative, healthy appearing, comfortable, no acute distress Nutritional Appearance: overweight Other: 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 [facility] Head: normal to inspection Eyes General: appearance normal, both eyes and all related structures Neck Neck: other (thick neck) Neck mass: No Chest Breast Palpation: No nipple discharge Resp Effort AND Inspection: normal respiratory effort Auscultation: clear to auscultation bilaterally Cardio Rate: regular rate Rhythm: regular rhythm Heart Sounds: no murmurs GI Inspection: normal to inspection Palpation: soft Auscultation: normal bowel sounds Skin Lesions: no lesions Rashes: no rashes Other: Left upper extremity AV fistula- nicely healed incision. No pulse, bruit and thrill noted. Dr. Abreu performed an ultrasound in the exam room which confirmed the fistula is completely occluded and non-functioning. Neuro General: no focal motor deficits Extrem General: normal to inspection Psych Appearance: grossly normal Mood: euphoric mood Affect: normal affect Assessment AND Plan Problems 1. Stage 4 chronic kidney disease N18.[address] Abreu also evaluated this patient. Recommend bilateral upper extremity vein mapping. Patient will need follow-up with Dr. Abreu following imaging. Our office will contact Dr. Gonzales's office to discuss future plan and treatment. 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 Orders Orders: Coding Level of Care Code Off vis,est,level 4 Diagnoses Stage 4 chronic kidney disease N18.4 Chronic kidney disease stage: stage 4 (severe) 12/14/17 9899 <Electronically signed by Taylor Owens PA-C> Date Taylor Owens PA-C Cosigner Signature: Date (if applicable) CC: Madi Gonzales M.D.; Francine Clark MD PROGRESS Observed: 12/12/2017 Status: COMPLETED Source: [place] 9:28 AM [facility] [place] REPOSITORY O ID: [id number] Author: Luis Feliciano Service: (none) Author Type: Physician Type: Progress Notes Filed: 01/11/2018 11:10 PM Note Text: Last Visit: November 26, 2013 Reason for Follow up: DM Type 1 HISTORY OF PRESENT ILLNESS; Mr. Morse is a 37 year old gentleman came for follow up visit regarding DM Type 1. He was initially diagnosed with diabetes since at age 8. He does have a family history of diabetes mellitus in his Mother. The patient reports the following microvascular complications: nephropathy. Jaron has no know macrovascular complications of diabetes. He has been on insulin since the diagnosis. His current diabetes regimen is . Regarding symptoms of hyperglycemia, he is is experiencing vision changes, polyuria, polydipsia and has urinary beg. Has suprapubic catheter. November 26, 2013: came with his caregiver today, he doesn't follow diet that good and had episodes of hyperglycemia and hypoglycemia. On lantus 7 units at AM and 15 units in the PM. Humalo-6-5 plus sliding scale, not getting low any more recently, kidney is stable, has h/o UTIs. On cephal In Feb/Mar/Apr admited to [facility] for [facility] obstruction, no hosp admission related to blood sugar. December 12, 2017: came for follow up visit, came also with his caregiver, still having fluctuations of blood sugar, not following any diet, eats [place] toast with syrups, having some high and low sugars particularly, now taking 14 units BID, Humalog 8-4-8, had a UTI and needed hospitalization, in August 2017 had blood clot in the kidney, Eye exam: up to date Vacc: up to date Podiatry: up to date Dietary History is as follows: on carb controlled diet Exercise: none Jaron is checking his blood glucose 4 times daily. He did bring a logbook today for review: ? Fastin-250 mg/dL ? Prelunch: na mg/dL ? Predinner: 200-300 mg/dL ? 2 hr post dinner: 160-350 mg/dL Hypoglycemia frequency: couple of time around 1 AM Hypoglycemia awareness: Yes The patient comes into the office today follow up visit Last eye exam: Jul 2017: retinopathy Vacc: up to date Last Feet exam: august 2017 by podiatry Diabetic Education: long time ago PAST MEDICAL HISTORY Diagnosis Date - Acute deep vein thrombosis (DVT) of right upper extremity ([facility]) 03/19/15 Diagnosed during hospital admission; coumadin started - Acute embolism and thrombosis of deep vein of right upper extremity ([facility]) 04/09/2015 - Acute gastritis without mention of hemorrhage 08/21/2012 - Allergic rhinitis - Anemia 03/07/2015 - Attention deficit disorder with hyperactivity(314.01) - Chronic renal failure Dr. 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 - Hand fracture 07/2012 right - Hemorrhage of gastrointestinal tract, unspecified 08/21/2012 - Hypernatremia 03/07/2015 - Incisional infection 02/04/16 - Nocturnal enuresis 04/28/2005 - OTHER MENTAL RETARDATION - MILD 02/07/2005 - Presence of suprapubic catheter ([facility]) Dr. Frias - Retention of urine, unspecified 08/20/2007 - Type I (juvenile type) diabetes mellitus without mention of complication, not stated as uncontrolled 02/04/2005 Dr. Olmedo PAST SURGICAL HISTORY Procedure Laterality Date - APPENDECTOMY 2000 - AV FUSE, UPPR ARM, CEPHALIC 12/17/15 Transposition left upper arm cephalic vein to brachial artery arteriovenous fistula creation - COLONOSCOP W/ OR W/O BRSH SPEC 12/04/14 decompression for pseudoobstruction - COLONOSCOPY 08/21/2012 and EGD - EGD W/REM FB STOMACH/DUOD 01/02/2017 removal of PEG tube with EGD to remove fragment - EGD W/REM FB STOMACH/DUOD 12/2016 - IR VASCULAR ACCESS TEAM PICC REPOSITION 04/04/2015 - MIDLINE INSERTION/CONSULT 03/03/2015 - PAST SURGICAL HISTORY OF Laparotomy - PAST SURGICAL HISTORY OF 01/22/2015 negative exploratory laparotomy for pneumatosis intestinalis high grade bowel obstruction - PICC LINE INSERT/CONSULT 04/02/2015 - PICC LINE INSERT/CONSULT 04/03/2015 - SUPRAPUBIC CATHETER FAMILY HISTORY Problem Relation Age of Onset - unknown [Other] [OTHER] - Diabetes Father Diabetic, unsure of which type, did not want to provide additional FH details. Family and social history reviewed and updated in the system. Social History Substance Use Topics - Smoking status: Never Smoker - Smokeless tobacco: Never Used - Alcohol use No SOCIAL HISTORY Marital Status: Single Tobacco Use: Never Alcohol Use: No Drug Use: No Sexual Activity: Not on file NARRATIVE Patient lives [facility] with 24 hour supervision. He has multiple behavioral problems. Current Outpatient Prescriptions: polyethylene glycol 3350 (MIRALAX, GLYCOLAX) 17 gram/dose powder Mix 1 capful (17 GMS) in 8 oz of water and take by mouth 2 times daily (routine scheduled dosage) Disp: 527 g Rfl: 3 polyethylene glycol 3350 (MIRALAX, GLYCOLAX) 17 gram/dose powder Mix 1 capful (17 GMS) in 8 oz of water and take by mouth at 8 pm as 3rd dose if no BM by 8pm. Disp: 527 g Rfl: 3 ULTICARE PEN NEEDLE 31 gauge x 5/16 ndle TAKE FIVE- SIX INJECTIONS DAILY INSTRUCTED Disp: 100 Each Rfl: 3 LANTUS SOLOSTAR U-100 INSULIN 100 unit/mL (3 mL) inpn INJECT 10 UNITS AT 8AM AND 12UNITS AT 8PM Disp: 15 mL Rfl: 3 RENACIDIN 6.602-3.268 gram/100 mL irrigation USE 30ML INTRAVESICALRY VIA URINARY CATHETER 3 TIMES DAILY CLAMP 30MIN THEN DRAIN Disp: 2700 mL Rfl: 3 carbamide peroxide (DEBROX) 6.5 % otic solution Use 5 Drops in both ears twice daily. for 5 days then discontinue Disp: 1 Bottle Rfl: 1 insulin lispro (HUMALOG KWIKPEN INSULIN) 100 unit/mL inpn Inject 6 Units subcutaneously w MEALS. And additional sliding scale as instructed TDD: 30 currently 8 units subcutaneous at breakfast and supper, sliding scale 3 times a day before meals Disp: Rfl: ketoconazole (NIZORAL) 2 % shampoo APPLY LATHER TO AFFECTED SKIN ON FACE AND RINSE OFF AFTER 2-5 MIN. USE DAILY NEEDED Disp: 120 mL Rfl: 0 ELIQUIS 2.5 mg tab tab(s) TAKE (1) TABLET BY MOUTH TWICE A DAY. Disp: 60 tablet Rfl: 0 cholecalciferol (VITAMIN D3) 5,000 unit tab TAKE (1) TABLET BY MOUTH ONCE DAILY. Disp: 30 tablet Rfl: 0 loratadine (CLARITIN) 10 mg tablet TAKE (1) TABLET BY MOUTH ONCE DAILY. Disp: 30 tablet Rfl: 0 melatonin 3 mg tablet TAKE 1 TABLET BY MOUTH DAILY AT BEDTIME Disp: 100 tablet Rfl: 0 ND-ACID GAS RELIEF 80 mg chewable tablet CHEW 1 TABLET BY MOUTH WITH MEALS AND AT BEDTIME Disp: 120 tablet Rfl: 11 Ascorbic Acid (VITAMIN C) 1,000 mg tablet Take 1 tablet by mouth once daily. Disp: 90 tablet Rfl: 3 aspirin, enteric coated (ASPIRIN, ENTERIC COATED) 81 mg EC tablet TAKE (1) TABLET BY MOUTH DAILY IN THE MORNING. Disp: 28 tablet Rfl: [address] (PROTONIX) 40 mg tablet TAKE 1 TABLET BY MOUTH ONCE DAILY 1/2 HR BEFORE BREAKFAST Disp: 28 tablet Rfl: 11 olopatadine (PAZEO) 0.7 % drop Use 1 Drop in eyes once daily. Disp: 2.5 mL Rfl: 11 metoprolol tartrate, short acting, (LOPRESSOR) 25 mg tablet TAKE (1/2) TABLET BY MOUTH TWICE DAILY. Disp: 31 tablet Rfl: 11 senna (SENNA LAX) 8.6 mg tab Take 1 tablet by mouth twice daily. Disp: 180 tablet Rfl: 3 atorvastatin (LIPITOR) 10 mg tablet TAKE ONE-HALF (1/2) TABLET AT BEDTIME. Disp: 15 tablet Rfl: 11 glucose (DEX4 GLUCOSE POUCH PACK) 4 gram chewable tablet Take 4 tablets by mouth as needed for Low Blood Sugar. Disp: 60 tablet Rfl: 3 Lancets lancets Test blood sugar(s) 8 times daily. Dx: Type 2 DM - Uncontrolled E11.65 Insulin: Yes Disp: 250 Each Rfl: 11 blood sugar diagnostic (BLOOD GLUCOSE TEST) test strip Test blood sugar(s) 8 times daily. Dx: Type 1 DM - Uncontrolled E10.69 Insulin: Yes Disp: 250 Strip Rfl: 11 fluticasone (FLONASE) 50 mcg/actuation nasal spray USE 2 SPRAYS IN EACH NOSTRIL ONCE DAILY. RINSE MOUTH AFTER USE. Disp: 3 Bottle Rfl: 3 oxybutynin (DITROPAN) 5 mg tablet Take 1 tablet by mouth as needed (once daily as needed for bladder spasms). Disp: 90 tablet Rfl: 4 albuterol HFA (PROVENTIL HFA, VENTOLIN HFA) 90 mcg/actuation inhaler Inhale 2 Puffs as instructed every 4 hours as needed. Disp: 1 Inhaler Rfl: 1 QUEtiapine (SEROQUEL) 200 mg tablet TAKE (1) TABLET BY MOUTH TWICE A DAY. Disp: 62 tablet Rfl: 1 QUEtiapine (SEROQUEL) 100 mg tablet TAKE 1 TABLET BY MOUTH ONCE DAILY AT 5 PM Disp: 31 tablet Rfl: 1 ammonium lactate (LAC-HYDRIN) 12 % cream Apply 1 application to affected area twice daily. Disp: 385 g Rfl: 3 COMPOUNDED PRESCRIPTION Please provide [employer] glucocard test strips to check blood sugar four to six Times a day Disp: 200 Strip Rfl: 3 bisacodyl (LAXATIVE, BISACODYL,) 10 mg supp 1 Suppository by RECTAL route once daily as needed. for constipation Disp: 20 Suppository Rfl: 12 docusate sodium (COLACE) 100 mg capsule Take 1 capsule by mouth twice daily as needed for Constipation. Disp: 60 capsule Rfl: 11 No current facility-administered medications for this visit. Allergies As of Date: 12/12/2017 Allergen Noted Reaction SEASONAL ALLERGIES 12/03/2012 Other: See Comments Fully Assessed 12/12/2017 REVIEW OF SYSTEMS: December 12, 2017 General: no fever, chills or acute changes in weight in the last 6 months Skin: no rashes, pruritis or dry skin Eyes: not very good, Cardiac: denies chest pain, heart palpitations or orthopnea Pulmonary: denies wheezing, productive cough or exertional dyspnea GI: denies nausea, vomiting, diarrhea or constipation Neuro: denies numbnes/tingling in hands or feet and denies seizures Musc: denies history of upper or lower extremity weakness Endocrine: complains of polyuria, polydipsia, nocturia and blurred vision Hematology: Negative for anemia, easy bleeding and bruising. All other systems: non-contributory PHYSICAL EXAM: BP 131/93 (BP Site: Right Arm, BP Position: Sitting, BP Cuff Size: Regular Adult) Pulse 100 SpO2 96% December 12, 2017 General: alert, in no acute distress, Skin: skin color, texture, turgor normal, no rashes or lesions. Head: normocephalic, no masses, lesions, tenderness or abnormalities. Eyes: has Anicteric sclera. Extraocular movements are intact. Oropharynx: Lips, mucosa, and tongue normal, Neck: Supple, no adenopathy; thyroid symmetric, normal size, no bruits Heart: RRR without murmur, gallop, or rubs. No ectopy Abdomen: soft, non-tender, positive bowel sounds Extremities: sensation decreased based on 128hz tuning fork examination. and Pitting edema mild b/l +ve Peripheral Pulses: posterior tibial and doralis pedis pulses 2+ and symmetrical DATA: Component Latest Ref Rng AND Units 11/10/2017 11/10/2017 8:10 AM 8:10 AM Protein, Total 6.3 - 8.0 g/dL 8.1 (H) Albumin 3.9 - 4.9 g/dL 3.8 (L) Calcium 8.5 - 10.2 mg/dL 8.7 9.0 Bilirubin, Total 0.2 - 1.3 mg/dL 0.2 Alkaline Phosphatase 36 - 108 U/L 99 AST 14 - 40 U/L 26 Glucose 74 - 99 mg/dL 202 (H) 209 (H) BUN 9 - 24 mg/dL 78 (H) 77 (H) Creatinine 0.73 - 1.22 mg/dL 3.91 (H) 3.84 (H) Sodium 136 - 144 mmol/L 135 (L) 136 Potassium 3.7 - 5.1 mmol/L 5.2 (H) 5.2 (H) Chloride 97 - 105 mmol/L 98 99 CO2 22 - 30 mmol/L 20 (L) 21 (L) Anion Gap 9 - 18 mmol/L 17 16 ALT 10 - 54 U/L 18 eGFR- 21 22 eGFR-All Other Races . 18 18 WBC 3.70 - 11.00 k/uL 8.60 RBC 4.20 - 6.00 m/uL 4.06 (L) Hemoglobin 13.0 - 17.0 g/dL 12.5 (L) Hematocrit 39.0 - 51.0 % 39.7 MCV 80.0 - 100.0 fL 97.8 MCH 26.0 - 34.0 pG 30.8 MCHC 30.5 - 36.0 g/dL 31.5 RDW-CV 11.5 - 15.0 % 15.3 (H) Platelet Count 150 - 400 k/uL 198 MPV 9.0 - 12.7 fL 11.3 Absolute nRBC <0.01 k/uL <0.01 Hemoglobin A1C 4.3 - 5.6 % 7.5 (H) Estimated Average Glucose mg/dL 169 Component Latest Ref Rng 12/03/2012 Hemoglobin A1C 4 - 6 % 9.0 (A) Quality Check yes Creatinine (mg/dL) Date Date Value Range Status 08/08/2012 2.29* 0.70 - 1.40 mg/dL Final HBA1C, [place] (%) Date Value 02/02/2011 10.5* Hemoglobin A1C (%) Date Value 08/08/2012 8.9* ) No components found with this basename: urinealbumin Cholesterol (mg/dL) Date Value 04/11/2012 150 HDL Cholesterol (mg/dL) Date Value 04/11/2012 38* LDL Chol, Greg (mg/dL) Date Value 02/02/2011 92 LDL Cholesterol (mg/dL) Date Value 04/11/2012 98 Triglyceride (mg/dL) Date Value 04/11/2012 72 IMPRESSION: Mr. Morse is a 37 year old male here for evaluation of DM Type 1 complicated by peripheral neuropathy. RECOMMENDATIONS: 1. Glycemic control: This patient is not at target. At this point I will initiate the following changes to his diabetes regimen: For hypoglycemia at 1 AM, go down on PM dose of Lantus to 10 units from 14 units. The patient was reminded to check his blood glucose 4 times a day and to record the data in a logbook. He was advised to bring their logbook to each office visit. I recommended at least 150 minutes per week of moderate physical activity, such as walking and to reduce carbohydrates and overall caloric intake. 2. Hypertension/BP control: This patient is at target on the current regimen. Continue current Rx. 3. Lipids: This patient is currently at target on statin therapy. Continue current Rx. 4. Antiplatelet therapy: This patient is on antiplatelet therapy, . 5. Nephropathy screening: He has stage 3 renal insufficiency. 6. Ophthalmology: This patient is up to date with their annual eye exam and has no history of retinopathy. 7. Immunization: Annual influenza was recommended. Pneumococcal vaccine was recommended. 8. Neuropathy: foot care and better blood sugar control. 9. Over weight: watching carbs and regular exercise, 10. Hypoglycemia unawareness: consider keeping blood sugar slightly higher side. As well as check insulin antibody level. The patient was asked to follow up with us in 3 months. I advised the patient to call in with their blood glucose readings to the office in 4 weeks. Luis Feliciano MD December 12, 2017 CNOV Observed: 12/12/2017 Status: COMPLETED Source: [place] 9:05 AM [facility] REPOSITORY Office Visit ([place]) JARON MORSE Yaquelin ([id number]) 1980 M Date Time Provider Department 12/12/17 9:05 AM LUIS FELICIANO During your visit today, we recorded the following information about you: Pulse Blood pressure 100/minute 131/93 Luis Feliciano MD 01/11/2018 11:10 PM Signed Last Visit: November 26, 2013 Reason for Follow up: DM Type 1 HISTORY OF PRESENT ILLNESS; Mr. Morse is a 37 year old gentleman came for follow up visit regarding DM Type 1. He was initially diagnosed with diabetes since at age 8. He does have a family history of diabetes mellitus in his Mother. The patient reports the following microvascular complications: nephropathy. Jaron has no know macrovascular complications of diabetes. He has been on insulin since the diagnosis. His current diabetes regimen is . Regarding symptoms of hyperglycemia, he is is experiencing vision changes, polyuria, polydipsia and has urinary beg. Has suprapubic catheter. November 26, 2013: came with his caregiver today, he doesn't follow diet that good and had episodes of hyperglycemia and hypoglycemia. On lantus 7 units at AM and 15 units in the PM. Humalo-6-5 plus sliding scale, not getting low any more recently, kidney is stable, has h/o UTIs. On cephal In Feb/Mar/Apr admited to [facility] for bowel obstruction, no hosp admission related to blood sugar. December 12, 2017: came for follow up visit, came also with his caregiver, still having fluctuations of blood sugar, not following any diet, eats [place] toast with syrups, having some high and low sugars particularly, now taking 14 units BID, Humalog 8-4-8, had a UTI and needed hospitalization, in August 2017 had blood clot in the kidney, Eye exam: up to date Vacc: up to date Podiatry: up to date Dietary History is as follows: on carb controlled diet Exercise: none Jaron is checking his blood glucose 4 times daily. He did bring a logbook today for review: ? Fastin-250 mg/dL ? Prelunch: na mg/dL ? Predinner: 200-300 mg/dL ? 2 hr post dinner: 160-350 mg/dL Hypoglycemia frequency: couple of time around 1 AM Hypoglycemia awareness: Yes The patient comes into the office today follow up visit Last eye exam: Jul 2017: retinopathy Vacc: up to date Last Feet exam: august 2017 by podiatry Diabetic Education: long time ago PAST MEDICAL HISTORY Diagnosis Date - Acute deep vein thrombosis (DVT) of right upper extremity (HCC) 03/19/15 Diagnosed during hospital admission; coumadin started - Acute embolism and thrombosis of deep vein of right upper extremity (HCC) 04/09/2015 - Acute gastritis without mention of hemorrhage 08/21/2012 - Allergic rhinitis - Anemia 03/07/2015 - Attention deficit disorder with hyperactivity(314.01) - Chronic renal failure Dr. 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 - Hand fracture 07/2012 right - Hemorrhage of gastrointestinal tract, unspecified 08/21/2012 - Hypernatremia 03/07/2015 - Incisional infection 02/04/16 - Nocturnal enuresis 04/28/2005 - OTHER MENTAL RETARDATION - MILD 02/07/2005 - Presence of suprapubic catheter (HCC) Dr. Frias - Retention of urine, unspecified 08/20/2007 - Type I (juvenile type) diabetes mellitus without mention of complication, not stated as uncontrolled 02/04/2005 Dr. Olmedo PAST SURGICAL HISTORY Procedure Laterality Date - APPENDECTOMY 2000 - AV FUSE, UPPR ARM, CEPHALIC 12/17/15 Transposition left upper arm cephalic vein to brachial artery arteriovenous fistula creation - COLONOSCOP W/ OR W/O BRSH SPEC 12/04/14 decompression for pseudoobstruction - COLONOSCOPY 08/21/2012 and EGD - EGD W/REM FB STOMACH/DUOD 01/02/2017 removal of PEG tube with EGD to remove fragment - EGD W/REM FB STOMACH/DUOD 12/2016 - IR VASCULAR ACCESS TEAM PICC REPOSITION 04/04/2015 - MIDLINE INSERTION/CONSULT 03/03/2015 - PAST SURGICAL HISTORY OF Laparotomy - PAST SURGICAL HISTORY OF 01/22/2015 negative exploratory laparotomy for pneumatosis intestinalis high grade bowel obstruction - PICC LINE INSERT/CONSULT 04/02/2015 - PICC LINE INSERT/CONSULT 04/03/2015 - SUPRAPUBIC CATHETER FAMILY HISTORY Problem Relation Age of Onset - unknown [Other] [OTHER] - Diabetes Father Diabetic, unsure of which type, did not want to provide additional FH details. Family and social history reviewed and updated in the system. Social History Substance Use Topics - Smoking status: Never Smoker - Smokeless tobacco: Never Used - Alcohol use No SOCIAL HISTORY Marital Status: Single Tobacco Use: Never Alcohol Use: No Drug Use: No Sexual Activity: Not on file NARRATIVE Patient lives in a [facility] with 24 hour supervision. He has multiple behavioral problems. Current Outpatient Prescriptions: polyethylene glycol 3350 (MIRALAX, GLYCOLAX) 17 gram/dose powder Mix 1 capful (17 GMS) in 8 oz of water and take by mouth 2 times daily (routine scheduled dosage) Disp: 527 g Rfl: 3 polyethylene glycol 3350 (MIRALAX, GLYCOLAX) 17 gram/dose powder Mix 1 capful (17 GMS) in 8 oz of water and take by mouth at 8 pm as 3rd dose if no BM by 8pm. Disp: 527 g Rfl: 3 ULTICARE PEN NEEDLE 31 gauge x 5/16 ndle TAKE FIVE- SIX INJECTIONS DAILY INSTRUCTED Disp: 100 Each Rfl: 3 LANTUS SOLOSTAR U-100 INSULIN 100 unit/mL (3 mL) inpn INJECT 10 UNITS AT 8AM AND 12UNITS AT 8PM Disp: 15 mL Rfl: 3 RENACIDIN 6.602-3.268 gram/100 mL irrigation USE 30ML INTRAVESICALRY VIA URINARY CATHETER 3 TIMES DAILY CLAMP 30MIN THEN DRAIN Disp: 2700 mL Rfl: 3 carbamide peroxide (DEBROX) 6.5 % otic solution Use 5 Drops in both ears twice daily. for 5 days then discontinue Disp: 1 Bottle Rfl: 1 insulin lispro (HUMALOG KWIKPEN INSULIN) 100 unit/mL inpn Inject 6 Units subcutaneously w MEALS. And additional sliding scale as instructed TDD: 30 currently 8 units subcutaneous at breakfast and supper, sliding scale 3 times a day before meals Disp: Rfl: ketoconazole (NIZORAL) 2 % shampoo APPLY LATHER TO AFFECTED SKIN ON FACE AND RINSE OFF AFTER 2-5 MIN. USE DAILY NEEDED Disp: 120 mL Rfl: 0 ELIQUIS 2.5 mg tab tab(s) TAKE (1) TABLET BY MOUTH TWICE A DAY. Disp: 60 tablet Rfl: 0 cholecalciferol (VITAMIN D3) 5,000 unit tab TAKE (1) TABLET BY MOUTH ONCE DAILY. Disp: 30 tablet Rfl: 0 loratadine (CLARITIN) 10 mg tablet TAKE (1) TABLET BY MOUTH ONCE DAILY. Disp: 30 tablet Rfl: 0 melatonin 3 mg tablet TAKE 1 TABLET BY MOUTH DAILY AT BEDTIME Disp: 100 tablet Rfl: 0 ND-ACID GAS RELIEF 80 mg chewable tablet CHEW 1 TABLET BY MOUTH WITH MEALS AND AT BEDTIME Disp: 120 tablet Rfl: 11 Ascorbic Acid (VITAMIN C) 1,000 mg tablet Take 1 tablet by mouth once daily. Disp: 90 tablet Rfl: 3 aspirin, enteric coated (ASPIRIN, ENTERIC COATED) 81 mg EC tablet TAKE (1) TABLET BY MOUTH DAILY IN THE MORNING. Disp: 28 tablet Rfl: [address] (PROTONIX) 40 mg tablet TAKE 1 TABLET BY MOUTH ONCE DAILY 1/2 HR BEFORE BREAKFAST Disp: 28 tablet Rfl: 11 olopatadine (PAZEO) 0.7 % drop Use 1 Drop in eyes once daily. Disp: 2.5 mL Rfl: 11 metoprolol tartrate, short acting, (LOPRESSOR) 25 mg tablet TAKE (1/2) TABLET BY MOUTH TWICE DAILY. Disp: 31 tablet Rfl: 11 senna (SENNA LAX) 8.6 mg tab Take 1 tablet by mouth twice daily. Disp: 180 tablet Rfl: 3 atorvastatin (LIPITOR) 10 mg tablet TAKE ONE-HALF (1/2) TABLET AT BEDTIME. Disp: 15 tablet Rfl: 11 glucose (DEX4 GLUCOSE POUCH PACK) 4 gram chewable tablet Take 4 tablets by mouth as needed for Low Blood Sugar. Disp: 60 tablet Rfl: 3 Lancets lancets Test blood sugar(s) 8 times daily. Dx: Type 2 DM - Uncontrolled E11.65 Insulin: Yes Disp: 250 Each Rfl: 11 blood sugar diagnostic (BLOOD GLUCOSE TEST) test strip Test blood sugar(s) 8 times daily. Dx: Type 1 DM - Uncontrolled E10.69 Insulin: Yes Disp: 250 Strip Rfl: 11 fluticasone (FLONASE) 50 mcg/actuation nasal spray USE 2 SPRAYS IN EACH NOSTRIL ONCE DAILY. RINSE MOUTH AFTER USE. Disp: 3 Bottle Rfl: 3 oxybutynin (DITROPAN) 5 mg tablet Take 1 tablet by mouth as needed (once daily as needed for bladder spasms). Disp: 90 tablet Rfl: 4 albuterol HFA (PROVENTIL HFA, VENTOLIN HFA) 90 mcg/actuation inhaler Inhale 2 Puffs as instructed every 4 hours as needed. Disp: 1 Inhaler Rfl: 1 QUEtiapine (SEROQUEL) 200 mg tablet TAKE (1) TABLET BY MOUTH TWICE A DAY. Disp: 62 tablet Rfl: 1 QUEtiapine (SEROQUEL) 100 mg tablet TAKE 1 TABLET BY MOUTH ONCE DAILY AT 5 PM Disp: 31 tablet Rfl: 1 ammonium lactate (LAC-HYDRIN) 12 % cream Apply 1 application to affected area twice daily. Disp: 385 g Rfl: 3 COMPOUNDED PRESCRIPTION Please provide [employer] glucocard test strips to check blood sugar four to six Times a day Disp: 200 Strip Rfl: 3 bisacodyl (LAXATIVE, BISACODYL,) 10 mg supp 1 Suppository by RECTAL route once daily as needed. for constipation Disp: 20 Suppository Rfl: 12 docusate sodium (COLACE) 100 mg capsule Take 1 capsule by mouth twice daily as needed for Constipation. Disp: 60 capsule Rfl: 11 No current facility-administered medications for this visit. Allergies As of Date: 12/12/2017 Allergen Noted Reaction SEASONAL ALLERGIES 12/03/2012 Other: See Comments Fully Assessed 12/12/2017 REVIEW OF SYSTEMS: December 12, 2017 General: no fever, chills or acute changes in weight in the last 6 months Skin: no rashes, pruritis or dry skin Eyes: not very good, Cardiac: denies chest pain, heart palpitations or orthopnea Pulmonary: denies wheezing, productive cough or exertional dyspnea GI: denies nausea, vomiting, diarrhea or constipation Neuro: denies numbnes/tingling in hands or feet and denies seizures Musc: denies history of upper or lower extremity weakness Endocrine: complains of polyuria, polydipsia, nocturia and blurred vision Hematology: Negative for anemia, easy bleeding and bruising. All other systems: non-contributory PHYSICAL EXAM: BP 131/93 (BP Site: Right Arm, BP Position: Sitting, BP Cuff Size: Regular Adult) Pulse 100 SpO2 96% December 12, 2017 General: alert, in no acute distress, Skin: skin color, texture, turgor normal, no rashes or lesions. Head: normocephalic, no masses, lesions, tenderness or abnormalities. Eyes: has Anicteric sclera. Extraocular movements are intact. Oropharynx: Lips, mucosa, and tongue normal, Neck: Supple, no adenopathy; thyroid symmetric, normal size, no bruits Heart: RRR without murmur, gallop, or rubs. No ectopy Abdomen: soft, non-tender, positive bowel sounds Extremities: sensation decreased based on 128hz tuning fork examination. and Pitting edema mild b/l +ve Peripheral Pulses: posterior tibial and doralis pedis pulses 2+ and symmetrical DATA: Component Latest Ref Rng AND Units 11/10/2017 11/10/2017 8:10 AM 8:10 AM Protein, Total 6.3 - 8.0 g/dL 8.1 (H) Albumin 3.9 - 4.9 g/dL 3.8 (L) Calcium 8.5 - 10.2 mg/dL 8.7 9.0 Bilirubin, Total 0.2 - 1.3 mg/dL 0.2 Alkaline Phosphatase 36 - 108 U/L 99 AST 14 - 40 U/L 26 Glucose 74 - 99 mg/dL 202 (H) 209 (H) BUN 9 - 24 mg/dL 78 (H) 77 (H) Creatinine 0.73 - 1.22 mg/dL 3.91 (H) 3.84 (H) Sodium 136 - 144 mmol/L 135 (L) 136 Potassium 3.7 - 5.1 mmol/L 5.2 (H) 5.2 (H) Chloride 97 - 105 mmol/L 98 99 CO2 22 - 30 mmol/L 20 (L) 21 (L) Anion Gap 9 - 18 mmol/L 17 16 ALT 10 - 54 U/L 18 eGFR- 21 22 eGFR-All Other Races . 18 18 WBC 3.70 - 11.00 k/uL 8.60 RBC 4.20 - 6.00 m/uL 4.06 (L) Hemoglobin 13.0 - 17.0 g/dL 12.5 (L) Hematocrit 39.0 - 51.0 % 39.7 MCV 80.0 - 100.0 fL 97.8 MCH 26.0 - 34.0 pG 30.8 MCHC 30.5 - 36.0 g/dL 31.5 RDW-CV 11.5 - 15.0 % 15.3 (H) Platelet Count 150 - 400 k/uL 198 MPV 9.0 - 12.7 fL 11.3 Absolute nRBC <0.01 k/uL <0.01 Hemoglobin A1C 4.3 - 5.6 % 7.5 (H) Estimated Average Glucose mg/dL 169 Component Latest Ref Rng 12/03/2012 Hemoglobin A1C 4 - 6 % 9.0 (A) Quality Check yes Creatinine (mg/dL) Date Date Value Range Status 08/08/2012 2.29* 0.70 - 1.40 mg/dL Final HBA1C, Greg (%) Date Value 02/02/2011 10.5* Hemoglobin A1C (%) Date Value 08/08/2012 8.9* ) No components found with this basename: urinealbumin Cholesterol (mg/dL) Date Value 04/11/2012 150 HDL Cholesterol (mg/dL) Date Value 04/11/2012 38* LDL Chol, [place] (mg/dL) Date Value 02/02/2011 92 LDL Cholesterol (mg/dL) Date Value 04/11/2012 98 Triglyceride (mg/dL) Date Value 04/11/2012 72 IMPRESSION: Mr. Morse is a 37 year old male here for evaluation of DM Type 1 complicated by peripheral neuropathy. RECOMMENDATIONS: 1. Glycemic control: This patient is not at target. At this point I will initiate the following changes to his diabetes regimen: For hypoglycemia at 1 AM, go down on PM dose of Lantus to 10 units from 14 units. The patient was reminded to check his blood glucose 4 times a day and to record the data in a logbook. He was advised to bring their logbook to each office visit. I recommended at least 150 minutes per week of moderate physical activity, such as walking and to reduce carbohydrates and overall caloric intake. 2. Hypertension/BP control: This patient is at target on the current regimen. Continue current Rx. 3. Lipids: This patient is currently at target on statin therapy. Continue current Rx. 4. Antiplatelet therapy: This patient is on antiplatelet therapy, . 5. Nephropathy screening: He has stage 3 renal insufficiency. 6. Ophthalmology: This patient is up to date with their annual eye exam and has no history of retinopathy. 7. Immunization: Annual influenza was recommended. Pneumococcal vaccine was recommended. 8. Neuropathy: foot care and better blood sugar control. 9. Over weight: watching carbs and regular exercise, 10. Hypoglycemia unawareness: consider keeping blood sugar slightly higher side. As well as check insulin antibody level. The patient was asked to follow up with us in 3 months. I advised the patient to call in with their blood glucose readings to the office in 4 weeks. Luis Feliciano MD December 12, 2017 Luis Feliciano MD 12/12/2017 9:47 AM Signed For hypoglycemia at 1 AM, go down on PM dose of Lantus to 10 units from 14 units Referring Provider: SELF [200] Allergies As of Date: 12/12/2017 Noted Allergy Reaction SEASONAL ALLERGIES 12/03/2012 14 - Other: See Comments Comments: Environmental-ragweed Date Reviewed: 12/12/2017 Reviewed by: Lakeisha Zamora Ma - Fully Assessed Reason for Visit: Diabetes [34] Primary Visit Diagnosis:Uncontrolled type 1 diabetes mellitus with nephropathy (HCC) [E10.29, E10.65] Other Visit Diagnoses:CKD (chronic kidney disease) stage 4, GFR 15-29 ml/min (HCC) [N18.4] Hypoglycemia [E16.2] Neuropathy (HCC) [G62.9] Constitutional obesity [E66.8] Uncontrolled type 1 diabetes mellitus with stage 3 chronic kidney disease, with long- term current use of insulin (HCC) [E10.22, E10.65, N18.3] Uncontrolled type 1 diabetes mellitus with other specified complication (HCC) [E10.69, E10.65] Cold intolerance [R68.89] Order(s):insulin glargine (LANTUS SOLOSTAR U-100 INSULIN) 100 unit/mL (3 mL) inpn14 units in the AM and 10 units at HSDisp: 15 mLRfl: 3 TSH BLD [SQTSH] Order #: [id number] FUTURE DIABETES EDUCATION (CDE) (X20) [3049398] Order #: [id number]: 1 Prescriptions as of 12/12/2017 Sig: GLUCAGON (HUMAN RECOMBINANT) * Inject 1 mg intravenously one* FLUOXETINE 20 MG CAPSULE Take 20 mg by mouth once jacquelin* INSULIN GLARGINE (U-100) 100 * 14 units in the AM and 10 uni* POLYETHYLENE GLYCOL 3350 17 G* Mix 1 capful (17 GMS) in 8 oz* POLYETHYLENE GLYCOL 3350 17 G* Mix 1 capful (17 GMS) in 8 oz* ULTICARE PEN NEEDLE 31 GAUGE * TAKE FIVE- SIX INJECTIONS VASYL* RENACIDIN 6.602 GRAM-3.268 GR* USE 30ML INTRAVESICALRY VIA U* CARBAMIDE PEROXIDE 6.5 % EAR * Use 5 Drops in both ears twic* INSULIN LISPRO (U-100) 100 UN* Inject 6 Units subcutaneously* KETOCONAZOLE 2 % SHAMPOO APPLY LATHER TO AFFECTED SKIN* MELATONIN 3 MG TABLET TAKE 1 TABLET BY MOUTH DAILY * X ELIQUIS 2.5 MG TABLET TAKE (1) TABLET BY MOUTH TWIC* X CHOLECALCIFEROL (VITAMIN D3) * TAKE (1) TABLET BY MOUTH ONCE* X LORATADINE 10 MG TABLET TAKE (1) TABLET BY MOUTH ONCE* ND-ACID GAS RELIEF 80 MG CHEW* CHEW 1 TABLET BY MOUTH WITH M* ASCORBIC ACID (VITAMIN C) 1,0* Take 1 tablet by mouth once d* ASPIRIN 81 MG TABLET,DELAYED * TAKE (1) TABLET BY MOUTH JACQUELIN* PANTOPRAZOLE 40 MG TABLET,DEL* TAKE 1 TABLET BY MOUTH ONCE D* OLOPATADINE 0.7 % EYE DROPS Use 1 Drop in eyes once daily. METOPROLOL TARTRATE 25 MG TAB* TAKE (1/2) TABLET BY MOUTH TW* SENNOSIDES 8.6 MG TABLET Take 1 tablet by mouth twice * ATORVASTATIN 10 MG TABLET TAKE ONE-HALF (1/2) TABLET AT* LANCETS Test blood sugar(s) 8 times d* BLOOD SUGAR DIAGNOSTIC STRIPS Test blood sugar(s) 8 times d* X GLUCOSE 4 GRAM CHEWABLE TABLET Take 4 tablets by mouth as ne* FLUTICASONE 50 MCG/ACTUATION * USE 2 SPRAYS IN EACH NOSTRIL * OXYBUTYNIN CHLORIDE 5 MG TABL* Take 1 tablet by mouth as nee* ALBUTEROL SULFATE HFA 90 MCG/* Inhale 2 Puffs as instructed * QUETIAPINE 200 MG TABLET TAKE (1) TABLET BY MOUTH TWIC* QUETIAPINE 100 MG TABLET TAKE 1 TABLET BY MOUTH ONCE D* AMMONIUM LACTATE 12 % TOPICAL* Apply 1 application to affect* COMPOUNDED PRESCRIPTION Please provide ARKKAY glucoca* BISACODYL 10 MG RECTAL SUPPOS* 1 Suppository by RECTAL route* DOCUSATE SODIUM 100 MG CAPSULE Take 1 capsule by mouth twice* Problem List As Of Date 12/12/2017 Noted Resolved ATTN DEFICIT W HYPERACT [F90.9] INVALID FOR* Uncontrolled type 1 diabetes mellitus (HCC) [E1*INVALID FOR* HYDRONEPHROSIS [N13.30] INVALID FOR* 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 Allergic rhinitis [J30.9] DVT of left axillary vein, acute (HCC) [I82.A12]INVALID FOR* Other instructions from your clinician: For hypoglycemia at 1 AM, go down on PM dose of Lantus to 10 units from 14 units Prescriptions ordered this encounter Disp Refills Start End INSULIN GLARGINE (U-100) 100 UNIT/ML* 15 mL 3 12/12/2017 Si units in the AM and 10 units at HS Medications Discontinued During This Encounter LANTUS SOLOSTAR U-100 INSULIN 100 un* 15 mL 3 12/07/2017 12/12/2017 Cmt: Refill Too Soon Sig: INJECT 10 UNITS AT 8AM AND 12UNITS AT 8PM Patient taking differently: INJECT 14 UNITS AT 8AM AND 14 UNITS AT 8PM Disc: Reason for discontinue is not on file. Disposition: Return in about 3 months (around 03/14/2018). Follow-up and Disposition History Recorded Encounter Status:Closed by LUIS FELICIANO MD on 01/11/18 DISCHARGE INSTRUCTION Observed: 12/10/2017 Status: F Source: [place] 6:47 AM [facility] REPOSITORY [facility] Medical Records Department [address] [place] [address] Discharge Instruction 12/10/1746 MR#: [id number] Acct: [id number] Name: JARON MORSE Rep #: [id number] : 1980 37 From: Marlon Jarrett DO PCP: Francine Clark MD Status: PRE ER ED Disposition - Plan for ED Patient: Chief Complaint: Complaint Instructions: Discharge Instructions: Caring for Your Suprapubic Catheter Referrals: Francine Clark MD [Primary Care Provider] - As Needed What to do if you have Problems For any increased pain, shortness of breath, bleeding, nausea or vomiting, chest pain, or any unexpected problems, contact your Primary Care Provider. Call [facility] ([phone]) or report to the closest Emergency Room. Call 911 if necessary. 12/10/17 0647 <Electronically signed by Marlon Jarrett DO> Date Marlon Jarrett DO Cosigner Signature (If Indicated): Date CC: Francine Clark MD EMERGENCY DEPARTMENT Observed: 12/10/2017 Status: F Source: [place] SUMMARY 6:46 AM [facility] REPOSITORY [facility] Medical Records Department [address] [place] [address] Emergency Department Summary 12/10/17 0643 MR#: [id number] Acct: [id number] Name: JARON MORSE Rep #: [id number] : 1980 37 From: Marlon Jarrett DO PCP: Francine Clark MD Status: PRE ER - ER Visit Summary Date of Service: 12/10/17 Chief Complaint: [Suprapubic catheter needs replaced] History of Present Illness: The patient is a 37 M [presents to the emergency department with complaint of accidentally removing his suprapubic catheter. Patient states that he accidentally pulled on it and it came out. Patient states he had the catheter replaced 2 days ago as he normally has it replaced every 2 weeks. Patient denies complaints otherwise. He denies any recent illness although he did have a urinary tract infection about 2 weeks ago. Patient denies fever. Patient denies nausea or vomiting.] Physical Examination: [HEENT-PERRLA, EOMI. Cranial nerves II through XII grossly intact. TMs clear. Mucous membranes moist. No adenopathy. Cardiovascular-regular rate and rhythm without murmur or ectopy Lungs-clear to auscultation, chest wall stable without crepitus or subcu emphysema Abdomen-normoactive bowel sounds, soft, nontender, no rebound or rigidity, no peritoneal signs. Supra Pubic catheter site without bleeding and without sign of infection. Extremities-intact 4, normal range of motion, normal pulses, atraumatic] Test Results: [None indicated] Emergency Department Course and Treatment: [Patient normally has an 18 Moroccan catheter therefore I was able to easily replace the suprapubic catheter with an 18 Moroccan Franco.] Immediate return of urine on placement of catheter. Treatment Plan: [Patient to follow-up with his primary care physician as needed] Disposition: [Discharged to home in stable condition] Impression: [Suprapubic catheter replaced] This note was generated with righTune dictation software. It may contain incorrect words, spelling, and punctuation that were not noted in review of the chart prior to signing ED Disposition - Plan for ED Patient: Chief Complaint: Complaint Referrals: Francine Clark MD [Primary Care Provider] - What to do if you have Problems For any increased pain, shortness of breath, bleeding, nausea or vomiting, chest pain, or any unexpected problems, contact your Primary Care Provider. Call [facility] ([phone]) or report to the closest Emergency Room. Call 911 if necessary. 12/10/17 0646 <Electronically signed by Marlon Jarrett DO> Date Marlon Jarrett DO Cosigner Signature (If Indicated): Date CC: Francine Clark MD Observed: 12/07/2017 Status: F Source: [place] URINE CULTURE 10:35 PM [facility] REPOSITORY Sp. Request/Comment: - Specimen received in preservative Culture Result - 10,000 - <50,000 CFU/ml Lactose negative gram negative bacilli --> ABNORMAL ALERT Insignificant colony count. No further workup. --> ABNORMAL ALERT 10,000 - <50,000 CFU/ml Normal urogenital natalie Performed By: #### [facility] #### [facility] [address] [place], [place] [address] PROGRESS Observed: 12/07/2017 Status: COMPLETED Source: [place] 10:11 AM [facility] REPOSITORY HNO ID: [id number] Author: Ronn Gallo Service: (none) Author Type: Physician Type: Progress Notes Filed: 12/07/2017 1:14 PM Note Text: Reason for Visit Patient presents with: Established Patient: ER follow up from Last week Jaron Morse is a 37 year old male who presents here today for Above Complaints.. Health Maintenance DIABETIC FOOT EXAM HPI Follow up ER visit, he went for abdominal pain, had ct scan and it showed a lot of stool/constipation in the colo , it was also noted that he had a hernia. Creatine was high. Mild anemia as compared to the last cbc on November 13 here. He was found to have uti, was given cipro. Today is the last day. He does not have fever or chills. Looking at his bag today his caregiver noticed that it was not put right and he did not have any urine in the suprapubic bag and hence no urine in the bag. Today no abdominal pain, and he feels pretty good. To prevent constipation he is on multiple medication including, miralax, sennakot, He needs to have a large BM every day, he is on medication for the same. He is on puree diet because of his bowels No problem-specific Assessment AND Plan notes found for this encounter. PAST MEDICAL HISTORY Diagnosis Date - Acute deep vein thrombosis (DVT) of right upper extremity (HCC) 03/19/15 Diagnosed during hospital admission; coumadin started - Acute embolism and thrombosis of deep vein of right upper extremity (HCC) 04/09/2015 - Acute gastritis without mention of hemorrhage 08/21/2012 - Allergic rhinitis - Anemia 03/07/2015 - Attention deficit disorder with hyperactivity(314.01) - Chronic renal failure Dr. 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 - Hand fracture 07/2012 right - Hemorrhage of gastrointestinal tract, unspecified 08/21/2012 - Hypernatremia 03/07/2015 - Incisional infection 02/04/16 - Nocturnal enuresis 04/28/2005 - OTHER MENTAL RETARDATION - MILD 02/07/2005 - Presence of suprapubic catheter ([facility]) Dr. Frias - Retention of urine, unspecified 08/20/2007 - Type I (juvenile type) diabetes mellitus without mention of complication, not stated as uncontrolled 02/04/2005 Dr. Olmedo PAST SURGICAL HISTORY Procedure Laterality Date - APPENDECTOMY 2000 - AV FUSE, UPPR ARM, CEPHALIC 12/17/15 Transposition left upper arm cephalic vein to brachial artery arteriovenous fistula creation - [facility] 12/04/14 decompression for pseudoobstruction - COLONOSCOPY 08/21/2012 and EGD - EGD W/REM FB STOMACH/DUOD 01/02/2017 removal of PEG tube with EGD to remove fragment - EGD W/REM FB STOMACH/DUOD 12/2016 - IR VASCULAR ACCESS TEAM PICC REPOSITION 04/04/2015 - MIDLINE INSERTION/CONSULT 03/03/2015 - PAST SURGICAL HISTORY OF Laparotomy - PAST SURGICAL HISTORY OF 01/22/2015 negative exploratory laparotomy for pneumatosis intestinalis high grade bowel obstruction - PICC LINE INSERT/CONSULT 04/02/2015 - PICC LINE INSERT/CONSULT 04/03/2015 - SUPRAPUBIC CATHETER FAMILY HISTORY Problem Relation Age of Onset - unknown [Other] [OTHER] - Diabetes Father Diabetic, unsure of which type, did not want to provide additional FH details. Social History Substance Use Topics - Smoking status: Never Smoker - Smokeless tobacco: Never Used - Alcohol use No Past medical history, appointments, medications, allergies reviewed. Pertinent Lab/Diagnostic Studies are reviewed and discussed today Current Outpatient Prescriptions: - polyethylene glycol 3350 (MIRALAX, GLYCOLAX) 17 gram/dose powder - RENACIDIN 6.602-3.268 gram/100 mL irrigation - carbamide peroxide (DEBROX) 6.5 % otic solution - insulin lispro (HUMALOG KWIKPEN INSULIN) 100 unit/mL inpn - ketoconazole (NIZORAL) 2 % shampoo - ELIQUIS 2.5 mg tab tab(s) - cholecalciferol (VITAMIN D3) 5,000 unit tab - loratadine (CLARITIN) 10 mg tablet - melatonin 3 mg tablet - ND-ACID GAS RELIEF 80 mg chewable tablet - Ascorbic Acid (VITAMIN C) 1,000 mg tablet - insulin glargine (LANTUS SOLOSTAR) 100 unit/mL (3 mL) inpn - aspirin, enteric coated (ASPIRIN, ENTERIC COATED) 81 mg EC tablet - pantoprazole DR (PROTONIX) 40 mg tablet - olopatadine (PAZEO) 0.7 % drop - metoprolol tartrate, short acting, (LOPRESSOR) 25 mg tablet - senna (SENNA LAX) 8.6 mg tab - atorvastatin (LIPITOR) 10 mg tablet - glucose (DEX4 GLUCOSE POUCH PACK) 4 gram chewable tablet - Lancets lancets - blood sugar diagnostic (BLOOD GLUCOSE TEST) test strip - insulin needles, DISPOSABLE, (ULTICARE PEN NEEDLE) 31 gauge x 5/16 ndle - fluticasone (FLONASE) 50 mcg/actuation nasal spray - oxybutynin (DITROPAN) 5 mg tablet - albuterol HFA (PROVENTIL HFA, VENTOLIN HFA) 90 mcg/actuation inhaler - QUEtiapine (SEROQUEL) 200 mg tablet - QUEtiapine (SEROQUEL) 100 mg tablet - ammonium lactate (LAC-HYDRIN) 12 % cream - COMPOUNDED PRESCRIPTION - bisacodyl (LAXATIVE, BISACODYL,) 10 mg supp - docusate sodium (COLACE) 100 mg capsule Review of Systems CONSTITUTIONAL: No fevers, chills night sweats, unintended weight loss CARDIOVASCULAR: No chest pain, dyspnea, palpitations, orthopnea, PND, ankle edema. PULM: No dyspnea, unexplained cough. GI: No dysphagia/odynophagia, problematic reflux, constipation, diarrhea, changes in stool habits, hematochezia, melena. : No new urinary complaints, including dysuria, gross hematuria or pyuria. NEURO: No new balance problems, peripheral weakness/paresthesias or numbness of concern. Physical Exam BP 114/64 (BP Site: Right Arm, BP Position: Sitting, BP Cuff Size: Large Adult) Pulse 86 Resp 12 Ht 163.8 cm (5' 4.5) Wt 97.5 kg (215 lb) SpO2 97% BMI 36.33 kg/m? General appearance: Well appearing, alert, in no acute distress, well nourished. Skin: Skin color, texture, turgor normal, no suspicious rashes or lesions Head: Normocephalic, no masses, lesions, tenderness or abnormalities Eyes: Anicteric sclera. Pupils are equally round and reactive to light. Extraocular movements are intact. Lungs: Lungs clear to auscultation. No wheezing, rhonchi, rales Heart: RRR without murmur, gallop, or rubs. Extremities: No deformities, edema, skin discoloration, clubbing or cyanosis. Good capillary refill. ASSESSMENT/PLAN: 1. Anemia, unspecified type - ICD9: 285.9, ICD10: D64.9 (primary diagnosis) Recheck - CBC + DIFF 2. Urinary tract infection with hematuria, site unspecified - ICD9: 599.0, ICD10: N39.0, R31.9 acute - Patient education for prevention given - URINALYSIS WITH MICROSCOPIC 3. CKD (chronic kidney disease) stage 4, GFR 15-29 ml/min (HCC) - ICD9: 585.4, ICD10: N18.4 stable 4. Other specified abdominal hernia without obstruction or gangrene - ICD9: 553.8, ICD10: K45.8 To follow up with primary care team if anything needs to be done about the hernia RONN GALLO MD CNOV Observed: 12/07/2017 Status: COMPLETED Source: [place] 9:40 AM [facility] REPOSITORY Office Visit (INTMWS) JARON MORSE ([id number]) 1980 M Date Time Provider Department 12/07/17 9:40 AM RONN GALLO INTMWS During your visit today, we recorded the following information about you: Pulse Respiration Blood pressure Weight 86/minute 12/minute 114/64 97.5 kg Height 1.638 m RONN GALLO MD 12/07/2017 1:14 PM Signed Reason for Visit Patient presents with: Established Patient: ER follow up from Last week Jaron Morse is a 37 year old male who presents here today for Above Complaints.. Health Maintenance DIABETIC FOOT EXAM HPI Follow up ER visit, he went for abdominal pain, had ct scan and it showed a lot of stool/constipation in the colo , it was also noted that he had a hernia. Creatine was high. Mild anemia as compared to the last cbc on November 13 here. He was found to have uti, was given cipro. Today is the last day. He does not have fever or chills. Looking at his bag today his caregiver noticed that it was not put right and he did not have any urine in the suprapubic bag and hence no urine in the bag. Today no abdominal pain, and he feels pretty good. To prevent constipation he is on multiple medication including, miralax, sennakot, He needs to have a large BM every day, he is on medication for the same. He is on puree diet because of his bowels No problem-specific Assessment AND Plan notes found for this encounter. PAST MEDICAL HISTORY Diagnosis Date - Acute deep vein thrombosis (DVT) of right upper extremity (HCC) 03/19/15 Diagnosed during hospital admission; coumadin started - Acute embolism and thrombosis of deep vein of right upper extremity (HCC) 04/09/2015 - Acute gastritis without mention of hemorrhage 08/21/2012 - Allergic rhinitis - Anemia 03/07/2015 - Attention deficit disorder with hyperactivity(314.01) - Chronic renal failure Dr. 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 - Hand fracture 07/2012 right - Hemorrhage of gastrointestinal tract, unspecified 08/21/2012 - Hypernatremia 03/07/2015 - Incisional infection 02/04/16 - Nocturnal enuresis 04/28/2005 - OTHER MENTAL RETARDATION - MILD 02/07/2005 - Presence of suprapubic catheter ([facility]) Dr. Frias - Retention of urine, unspecified 08/20/2007 - Type I (juvenile type) diabetes mellitus without mention of complication, not stated as uncontrolled 02/04/2005 Dr. Olmedo PAST SURGICAL HISTORY Procedure Laterality Date - APPENDECTOMY 2000 - AV FUSE, UPPR ARM, CEPHALIC 12/17/15 Transposition left upper arm cephalic vein to brachial artery arteriovenous fistula creation - COLONOSCOP W/ OR W/O [facility] SPEC 12/04/14 decompression for pseudoobstruction - COLONOSCOPY 08/21/2012 and EGD - EGD W/REM FB STOMACH/DUOD 01/02/2017 removal of PEG tube with EGD to remove fragment - EGD W/REM FB STOMACH/DUOD 12/2016 - IR VASCULAR ACCESS TEAM PICC REPOSITION 04/04/2015 - MIDLINE INSERTION/CONSULT 03/03/2015 - PAST SURGICAL HISTORY OF Laparotomy - PAST SURGICAL HISTORY OF 01/22/2015 negative exploratory laparotomy for pneumatosis intestinalis high grade bowel obstruction - PICC LINE INSERT/CONSULT 04/02/2015 - PICC LINE INSERT/CONSULT 04/03/2015 - SUPRAPUBIC CATHETER FAMILY HISTORY Problem Relation Age of Onset - unknown [Other] [OTHER] - Diabetes Father Diabetic, unsure of which type, did not want to provide additional FH details. Social History Substance Use Topics - Smoking status: Never Smoker - Smokeless tobacco: Never Used - Alcohol use No Past medical history, appointments, medications, allergies reviewed. Pertinent Lab/Diagnostic Studies are reviewed and discussed today Current Outpatient Prescriptions: - polyethylene glycol 3350 (MIRALAX, GLYCOLAX) 17 gram/dose powder - RENACIDIN 6.602-3.268 gram/100 mL irrigation - carbamide peroxide (DEBROX) 6.5 % otic solution - insulin lispro (HUMALOG KWIKPEN INSULIN) 100 unit/mL inpn - ketoconazole (NIZORAL) 2 % shampoo - ELIQUIS 2.5 mg tab tab(s) - cholecalciferol (VITAMIN D3) 5,000 unit tab - loratadine (CLARITIN) 10 mg tablet - melatonin 3 mg tablet - ND-ACID GAS RELIEF 80 mg chewable tablet - Ascorbic Acid (VITAMIN C) 1,000 mg tablet - insulin glargine (LANTUS SOLOSTAR) 100 unit/mL (3 mL) inpn - aspirin, enteric coated (ASPIRIN, ENTERIC COATED) 81 mg EC tablet - pantoprazole DR (PROTONIX) 40 mg tablet - olopatadine (PAZEO) 0.7 % drop - metoprolol tartrate, short acting, (LOPRESSOR) 25 mg tablet - senna (SENNA LAX) 8.6 mg tab - atorvastatin (LIPITOR) 10 mg tablet - glucose (DEX4 GLUCOSE POUCH PACK) 4 gram chewable tablet - Lancets lancets - blood sugar diagnostic (BLOOD GLUCOSE TEST) test strip - insulin needles, DISPOSABLE, (ULTICARE PEN NEEDLE) 31 gauge x 5/16 ndle - fluticasone (FLONASE) 50 mcg/actuation nasal spray - oxybutynin (DITROPAN) 5 mg tablet - albuterol HFA (PROVENTIL HFA, VENTOLIN HFA) 90 mcg/actuation inhaler - QUEtiapine (SEROQUEL) 200 mg tablet - QUEtiapine (SEROQUEL) 100 mg tablet - ammonium lactate (LAC-HYDRIN) 12 % cream - COMPOUNDED PRESCRIPTION - bisacodyl (LAXATIVE, BISACODYL,) 10 mg supp - docusate sodium (COLACE) 100 mg capsule Review of Systems CONSTITUTIONAL: No fevers, chills night sweats, unintended weight loss CARDIOVASCULAR: No chest pain, dyspnea, palpitations, orthopnea, PND, ankle edema. PULM: No dyspnea, unexplained cough. GI: No dysphagia/odynophagia, problematic reflux, constipation, diarrhea, changes in stool habits, hematochezia, melena. : No new urinary complaints, including dysuria, gross hematuria or pyuria. NEURO: No new balance problems, peripheral weakness/paresthesias or numbness of concern. Physical Exam BP 114/64 (BP Site: Right Arm, BP Position: Sitting, BP Cuff Size: Large Adult) Pulse 86 Resp 12 Ht 163.8 cm (5' 4.5) Wt 97.5 kg (215 lb) SpO2 97% BMI 36.33 kg/m? General appearance: Well appearing, alert, in no acute distress, well nourished. Skin: Skin color, texture, turgor normal, no suspicious rashes or lesions Head: Normocephalic, no masses, lesions, tenderness or abnormalities Eyes: Anicteric sclera. Pupils are equally round and reactive to light. Extraocular movements are intact. Lungs: Lungs clear to auscultation. No wheezing, rhonchi, rales Heart: RRR without murmur, gallop, or rubs. Extremities: No deformities, edema, skin discoloration, clubbing or cyanosis. Good capillary refill. ASSESSMENT/PLAN: 1. Anemia, unspecified type - ICD9: 285.9, ICD10: D64.9 (primary diagnosis) Recheck - CBC + DIFF 2. Urinary tract infection with hematuria, site unspecified - ICD9: 599.0, ICD10: N39.0, R31.9 acute - Patient education for prevention given - URINALYSIS WITH MICROSCOPIC 3. CKD (chronic kidney disease) stage 4, GFR 15-29 ml/min ([facility]) - ICD9: 585.4, ICD10: N18.4 stable 4. Other specified abdominal hernia without obstruction or gangrene - ICD9: 553.8, ICD10: K45.8 To follow up with primary care team if anything needs to be done about the hernia RONN GALLO MD Referring Provider: SELF [200] Allergies As of Date: 12/07/2017 Noted Allergy Reaction SEASONAL ALLERGIES 12/03/2012 14 - Other: See Comments Comments: Environmental-ragweed Date Reviewed: 12/07/2017 Reviewed by: Kamini Bergeron LPN - Fully Assessed Reason for Visit: Established Patient [175] Cmt: ER follow up from Last week Primary Visit Diagnosis:Anemia, unspecified type [D64.9] Other Visit Diagnoses:Urinary tract infection with hematuria, site unspecified [N39.0, R31.9] CKD (chronic kidney disease) stage 4, GFR 15-29 ml/min (HCC) [N18.4] Other specified abdominal hernia without obstruction or gangrene [K45.8] Order(s):URINALYSIS WITH MICROSCOPIC [SQUAWMIC] Order #: [id number] CBC + DIFF [SQCBCDIF] Order #: [id number] FUTURE URINE CULTURE [SQURCUL] Order #: [id number] Prescriptions as of 12/07/2017 Sig: POLYETHYLENE GLYCOL 3350 17 G* DISSOLVE 1 CAPFUL (17GMS) TWI* RENACIDIN 6.602 GRAM-3.268 GR* USE 30ML INTRAVESICALRY VIA U* CARBAMIDE PEROXIDE 6.5 % EAR * Use 5 Drops in both ears twic* INSULIN LISPRO (U-100) 100 UN* Inject 6 Units subcutaneously* KETOCONAZOLE 2 % SHAMPOO APPLY LATHER TO AFFECTED SKIN* ELIQUIS 2.5 MG TABLET TAKE (1) TABLET BY MOUTH TWIC* CHOLECALCIFEROL (VITAMIN D3) * TAKE (1) TABLET BY MOUTH ONCE* LORATADINE 10 MG TABLET TAKE (1) TABLET BY MOUTH ONCE* MELATONIN 3 MG TABLET TAKE 1 TABLET BY MOUTH DAILY * ND-ACID GAS RELIEF 80 MG CHEW* CHEW 1 TABLET BY MOUTH WITH M* ASCORBIC ACID (VITAMIN C) 1,0* Take 1 tablet by mouth once d* INSULIN GLARGINE (U-100) 100 * Inject 10 Units subcutaneousl* ASPIRIN 81 MG TABLET,DELAYED * TAKE (1) TABLET BY MOUTH JACQUELIN* PANTOPRAZOLE 40 MG TABLET,DEL* TAKE 1 TABLET BY MOUTH ONCE D* OLOPATADINE 0.7 % EYE DROPS Use 1 Drop in eyes once daily. METOPROLOL TARTRATE 25 MG TAB* TAKE (1/2) TABLET BY MOUTH TW* SENNOSIDES 8.6 MG TABLET Take 1 tablet by mouth twice * ATORVASTATIN 10 MG TABLET TAKE ONE-HALF (1/2) TABLET AT* GLUCOSE 4 GRAM CHEWABLE TABLET Take 4 tablets by mouth as ne* LANCETS Test blood sugar(s) 8 times d* BLOOD SUGAR DIAGNOSTIC STRIPS Test blood sugar(s) 8 times d* PEN NEEDLE, DIABETIC 31 GAUGE* TAKE FIVE- SIX INJECTIONS VASYL* FLUTICASONE 50 MCG/ACTUATION * USE 2 SPRAYS IN EACH NOSTRIL * OXYBUTYNIN CHLORIDE 5 MG TABL* Take 1 tablet by mouth as nee* ALBUTEROL SULFATE HFA 90 MCG/* Inhale 2 Puffs as instructed * QUETIAPINE 200 MG TABLET TAKE (1) TABLET BY MOUTH TWIC* QUETIAPINE 100 MG TABLET TAKE 1 TABLET BY MOUTH ONCE D* AMMONIUM LACTATE 12 % TOPICAL* Apply 1 application to affect* COMPOUNDED PRESCRIPTION Please provide ARKKAY glucoca* BISACODYL 10 MG RECTAL SUPPOS* 1 Suppository by RECTAL route* DOCUSATE SODIUM 100 MG CAPSULE Take 1 capsule by mouth twice* Problem List As Of Date 12/07/2017 Noted Resolved ATTN DEFICIT W HYPERACT [F90.9] INVALID FOR* Uncontrolled type 1 diabetes mellitus (HCC) [E1*INVALID FOR* HYDRONEPHROSIS [N13.30] INVALID FOR* 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 Allergic rhinitis [J30.9] DVT of left axillary vein, acute (HCC) [I82.A12]INVALID FOR* Encounter Status:Closed by RONN GALLO MD on 12/07/17 EMERGENCY DEPARTMENT Observed: 11/30/2017 Status: F Source: [place] SUMMARY 11:03 PM [facility] REPOSITORY [facility] Medical Records Department [address] [place] [address] Emergency Department Summary 11/30/172005 MR#: [id number] Acct: [id number] Name: JARON MORSE Rep #: [id number] : 1980 37 From: Radha Velasco MD PCP: Francine Clark MD Status: REG ER - ER Visit Summary Date of Service: 11/30/17 Chief Complaint: Abdominal pain History of Present Illness: The patient is a 37 M presenting with abdominal pain. He states it started this afternoon. Pain is diffuse. He denies nausea, vomiting, diarrhea. He had a large bowel movement before this began. He states he has history of previous bowel obstructions. He also has history of previous UTI. He has a suprapubic catheter in place. He denies fever or other complaints. Physical Examination: Vitals are stable. Patient is afebrile. Alert no acute distress. HEENT exam is unremarkable. Neck is supple. Lungs are clear and equal bilaterally. Heart is regular rate and rhythm. Abdomen is soft mild diffuse tenderness with no rebound or guarding. Suprapubic catheter Extremities are unremarkable. Skin is warm and dry. No focal neurologic deficit. Remainder of exam is unremarkable. Emergency Department Course and Treatment: Patient is given morphine, Zofran with improvement. CBC normal except for hemoglobin 11.8. Chemistries show glucose 186, BUN 60, creatinine 3.8. His previous creatinine was 3.6 on November 17. He is followed by nephrology and had an appointment last week. His elevated creatinine is being followed by nephrology. Urinalysis shows 50-100 white blood cells 10-25 red blood cells. Suprapubic catheter is draining well. CT abdomen pelvis shows nonspecific ileus with diffuse fecal retention in the colon. Bilateral nonspecific nephrocalcinosis and renal atrophy Moderate size anterior abdominal wall hernia containing loop of small bowel without evidence for incarceration or proximal obstruction. Patient did have a large bowel movement today. He is on stool softeners at home. He is given a prescription for Cipro. Urine culture was sent. On repeat evaluation, his abdomen is soft and nontender with no guarding or rebound. Advised to follow-up with his primary care physician. Advised return to ED for worsening complaints. Disposition: Discharged home Impression: Abdominal pain, UTI This note was generated with righTune dictation software. It may contain incorrect words, spelling, and punctuation that were not noted in review of the chart prior to signing ED Disposition - Plan for ED Patient: Chief Complaint: Abd Pain Referrals: Francine Clark MD [Primary Care Provider] - What to do if you have Problems For any increased pain, shortness of breath, bleeding, nausea or vomiting, chest pain, or any unexpected problems, contact your Primary Care Provider. Call [facility] ([phone]) or report to the closest Emergency Room. Call 911 if necessary. 11/30/17 2303 <Electronically signed by Radha Velasco MD> Date Radha Velasco MD Cosigner Signature (If Indicated): Date CC: Francine Clark MD DISCHARGE INSTRUCTION Observed: 11/30/2017 Status: F Source: [place] 10:56 PM [facility] REPOSITORY [facility] Medical Records Department [address] [place] [id number] Discharge Instruction 11/30/17 2255 MR#: [id number] Acct: [id number] Name: JARON MORSE Rep #: [id number] : 1980 37 From: Radha Velasco MD PCP: Francine Clark MD Status: REG ER ED Disposition - Plan for ED Patient: Chief Complaint: Abd Pain Instructions: ED Abdominal Pain Unkn Cause, ED UTI Cystitis Male Prescriptions: Ciprofloxacin [Cipro] 500 mg PO BID #14 tablet Referrals: Francine Clark MD [Primary Care Provider] - What to do if you have Problems For any increased pain, shortness of breath, bleeding, nausea or vomiting, chest pain, or any unexpected problems, contact your Primary Care Provider. Call [facility] ([phone]) or report to the closest Emergency Room. Call 911 if necessary. 11/30/17 2345 <Electronically signed by Radha Velasco MD> Date Radha Velasco MD Cosigner Signature (If Indicated): Date CC: Francine Clark MD URINALYSIS, COMPLETE Collected: 11/30/2017 Status: F Source: BARTOW 10:00 PM [facility] REPOSITORY Order Comment: How was Urine Obtained? CATHETER SPECIMEN TYPE CODE TESTS RESULT OUT OF RANGE REFERENCE UNITS LAB L400.3000 Yellow COLOR Normal Yellow LAB L400.3050 Clear Normal CLARITY Sl. Cloudy LAB L400.3200 Normal mg/dl High GLUCOSE, UR 100 LAB L400.3300 Negative mg/dL Normal BILIRUBIN URINE Negative LAB L400.3400 Negative mg/dl Normal KETONE UR Negative LAB L400.3465 1.002-1.030 Normal SP.GR. DIPSTX 1.005 LAB L400.3550 5.0 - 8.0 pH UR Normal 6.5 LAB L400.3600 Negative mg/dl High PROT 15 DIPSTX LAB L400.3700 Normal mg/dl Normal UROBILI Normal LAB L400.3750 Negative Normal NITRITE UR Negative LAB L400.3780 Negative /ul High OCCULT BLOOD-UR 250 LAB L400.3800 Negative /ul High LEUK ESTERASE 500 LAB L400.4050 0-5 /hpf WBC Normal 50-100 SEEN LAB L400.4100 0-5 /hpf Normal RBC-UA 10-25 SEEN LAB L400.4150 0-5 /hpf SQUAM Normal EPI 0-5 SEEN LAB L400.4300 None Seen /hpf Normal BACTERIA RARE LAB L400.4350 <or=2+ /hpf 0 Normal MUCUS, URINE SEEN Performed By: #### L400.0001 #### [facility] [address] [place], [address] Observed: 11/30/2017 Status: F Source: [place] CULTURE, URINE 10:00 PM [facility] REPOSITORY Order Date: 11/30/17 Urine Culture ORGANISM 1: Serratia marcescens [place] Count 80,000-100,000 ORGANISM 2: Citrobacter freundii [place] Count 50,000-80,000 Serratia marcescens: REACTION Amoxacillin/Clavulanic Acid $ >=32 R Cefazolin $ >=64 R Cefepime $ <=1 S Ceftriaxone $ 16 I Ciprofloxacin $ 1 S Ertapenim $$$ <=0.5 S Gentamicin $ <=1 S Levofloxacin $ 1 S Nitrofurantoin $ 256 R Tobramycin $ <=1 S Trimethoprim/Sulfametho $ >=320 R (NF) indicates non-formulary drug at [facility]. Approval by Infectious Disease Specialist required before non-formulary drugs may be ordered and/or dispensed. Citrobacter freundii: REACTION Amoxacillin/Clavulanic Acid $ >=32 R Cefazolin $ >=64 R Cefepime $ <=1 S Ceftriaxone $ 16 I Ciprofloxacin $ 0.5 S Ertapenim $$$ <=0.5 S Gentamicin $ <=1 S Imipenem *NF 0.5 S Levofloxacin $ 1 S Nitrofurantoin $ <=16 S Tobramycin $ <=1 S Trimethoprim/Sulfametho $ >=320 R (NF) indicates non-formulary drug at [facility]. Approval by Infectious Disease Specialist required before non-formulary drugs may be ordered and/or dispensed. Performed By: #### M100.0650 #### [facility] [address] [place], [address] CBC W/DIFF, AUTOMATED Collected: 11/30/2017 Status: F Source: [place] 8:15 PM [facility] REPOSITORY TYPE CODE TESTS RESULT OUT OF RANGE REFERENCE UNITS LAB L100.1000 4.4-11.0 K/mm3 Normal WBC 7.1 LAB L100.1200 4.6-6.2 M/mm3 Low RBC 3.78 LAB L100.1300 13.0-16.5 g/dl Low HGB 11.8 LAB L100.1400 40-54 % Low HCT 35.7 LAB L100.1500 80-94 fL High MCV 94.4 LAB L100.1600 27.0-32.0 pg Normal MCH 31.2 LAB L100.1700 32-36 g/gl Normal MCHC 33.1 LAB L100.1810 11.6-14.6 % Normal RDW CV 14.2 LAB L100.1820 35.1-43.9 fl High RDW SD 48.6 LAB L100.1900 150-450 K/mm3 Normal PLT 193 LAB L100.2000 6.2-12.0 fl Normal MPV 10.3 LAB L100.2100 47-70 % Normal NEUT% 63.6 LAB L100.2200 19-41 % Normal LY% 27.1 LAB L100.2300 0-10 % Normal MONO% 6.8 LAB L100.2400 0-5 % Normal EO% 2.3 LAB L100.2500 0-1 % Normal BASO% 0.1 LAB L100.2550 0.0-0.9 % Normal IM GRAN % 0.100 Result Comment: IG% - Immature Granulocytes (promyelocytes, myelocytes and metamyelocytes) > 1% indicates that a LEFT SHIFT is Present. LAB L100.2620 2.0-7.7 X10 3/uL Normal Absolute Neut 4.5 LAB L100.2720 0.83-4.51 X10 3/ul Normal Absolute Lymph 1.93 Performed By: #### L100.0100 #### [facility] [address] [place], [place], [address] COMPREHENSIVE METABOLIC Collected: 11/30/2017 Status: F Source: [facility] 8:15 PM [facility] REPOSITORY TYPE CODE TESTS RESULT OUT OF RANGE REFERENCE UNITS LAB L501.0100 74-106 mg/dL High GLU 186 Result Comment: Fasting Glucose result greater than or equal to 126 mg/dL suggests DIABETES MELLITUS per A.D.A. criteria. Please note revised GLUCOSE reference range effective 2017. LAB L501.1000 7-18 mg/dL High BUN 60 LAB L501.1100 0.70-1.30 mg/dL High CREAT,SERUM 3.88 Result Comment: The validity of the calculated GFR AND GFRAA in patients over 70 years has not been determined. Clinical correlation is essential. LAB L501.1110 >60 mL/min Low EST GFR 19 Result Comment: Non- GFR Calc LAB L501.1115 >60 mL/min Low EST GFR - AA 23 Result Comment: GFR Calc LAB L501.1255 ml/min Normal Estimated CRCL 22.25 LAB L501.1300 10-20 RATIO Normal BUN/CRE 15.5 LAB L501.1500 6.4-8. g/dL Normal 2 T PROT 8.2 LAB L501.1800 3.2-5. g/dL Normal 0 ALB 3.5 LAB L501.1950 2.2-4. g/dL High 2 GLOB 4.7 LAB L501.2000 0.9-2. RATIO Low 4 A/G 0.7 LAB L501.2200 8.5-10 mg/dL Low .1 CA 8.3 LAB L501.4100 15-37 U/L Normal AST 19 LAB L501.4305 45-117 U/L High ALK P 147 LAB L501.4405 16-61 U/L Normal ALT 27 LAB L501.4600 0.20-1 mg/dL Normal .00 T BILI 0.20 LAB L501.5300 136-14 mmol/L Normal 5 NA 139 LAB L501.5600 3.5-5. mmol/L Normal 1 K 5.0 LAB L501.5900 98-107 mmol/L Normal CL 105 LAB L501.6100 21.0-3 mmol/L Normal 2.0 CO2 27.0 LAB L501.6200 5-15 Normal GAP 7 Performed By: #### L500.4050 #### [facility] [address] [place], [address] ABDOMEN/PELVIS WITHOUT Observed: 11/30/2017 Status: F Source: GREG CONT 8:06 PM [facility] REPOSITORY [facility] Imaging Services [address] [place] [address] Abdomen/Pelvis without Cont MR#: [id number] Acct: [id number] Name: JARON MORSE Yaquelin Rep #: [id number] : 1980 M 37 From: Guille Bobo MD PCP: Francine Clark MD Status: REG ER Study: Abdomen/Pelvis without Cont Date of Exam: 11/30/17 Exam# [id number] Ordering Dr: Radha Velasco MD STUDY: CT ABDOMEN AND PELVIS WITHOUT CONTRAST REASON FOR EXAM: Male, 37 years old. Abdominal and mid back pain RADIATION DOSAGE (If Supplied By Facility): CTDIvol = ( 16.53 ) mGy, DLP = ( 859.19 ) mGycm TECHNIQUE: Transaxial images were obtained from the dome of the diaphragm to the symphysis pubis without oral contrast, and without intravenous contrast. Sagittal and coronal images were reconstructed. Individualized dose optimization techniques were used for this CT. COMPARISON: October 26, 2017 FINDINGS: The visualized lung bases are unremarkable. The visualized portions of the heart are within normal limits. Normal liver. Normal gallbladder and extrahepatic biliary system. Normal spleen. Normal pancreas. Normal bilateral adrenal glands. Bilateral nephrocalcinosis and renal atrophy. No evidence for hydronephrosis or ureteral calculus. No well- defined renal nodules Normal visualized stomach. There is diffuse nonspecific ileus and fecal retention throughout the colon. No evidence for small bowel obstruction or pneumoperitoneum.. Appendix not identified which may be consistent with prior appendectomy. Normal abdominal aorta. Normal inferior vena cava. Normal retroperitoneum. Incompletely distended diffusely thick-walled bladder containing suprapubic catheter. There is moderate-sized anterior abdominal wall hernia containing loop of bowel.. There is no definitive evidence for proximal obstruction or incarceration.. Normal osseous structures. CT/Abdomen/Pelvis without Cont IMPRESSION: Nonspecific ileus with diffuse fecal retention in the colon.. Bilateral nonspecific nephrocalcinosis and renal atrophy Moderate size anterior abdominal wall hernia containing loop of small bowel without evidence for incarceration or proximal obstruction Other findings as above Electronically Signed: Guille Bobo MD at 21:55 EDT , Service support , CC: Radha Velasco MD; Francine Clark MD Cryogenic Transport Driver: Signed PROTEIN+CREATININE Collected: Status: F Source: GREG BAILEY,URINE 11/17/2017 7:34 AM [facility] REPOSITORY TYPE CODE TESTS RESULT OUT OF RANGE REFERENCE UNITS LAB L501.1200 NO RANGE EST. mg/dL 21.50 Normal UR CREAT LAB L501.1930 <11.9 mg/dL < 6.0 Normal PROTEIN,UR. RAN. LAB L501.1940 0-200 mg/g CRE Test Normal not performed PROT:CRE RATIO Performed By: #### L501.0900, L502.0250 #### [facility] [address] [place], [place], [address] MICROALB:CREAT Collected: 11/17/2017 Status: F Source: GREG ABILEY,RANDOM UR 7:34 AM [facility] REPOSITORY TYPE CODE TESTS RESULT OUT OF RANGE REFERENCE UNITS LAB L502.0500 NO RANGE EST. mg/L Normal 62.5 MICROALBUMIN ,UR LAB L502.0600 <30 mg/g CRE mg/g CRE High 290.7 MALB:CREAT Performed By: #### L501.0900, L502.0250 #### [facility] [address] [place], [place], [address] CBC-COMPLETE BLOOD CNT Collected: 11/17/2017 Status: F Source: GREG NO DIFF 7:34 AM [facility] REPOSITORY TYPE CODE TESTS RESULT OUT OF RANGE REFERENCE UNITS LAB L100.1000 4.4-11.0 K/mm3 Normal WBC 6.3 LAB L100.1200 4.6-6.2 M/mm3 Low RBC 4.16 LAB L100.1300 13.0-16.5 g/dl Low HGB 12.7 LAB L100.1400 40-54 % Low HCT 38.8 LAB L100.1500 80-94 fL Normal MCV 93.3 LAB L100.1600 27.0-32.0 pg Normal MCH 30.5 LAB L100.1700 32-36 g/gl Normal MCHC 32.7 LAB L100.1810 11.6-14.6 % High RDW CV 15.0 LAB L100.1820 35.1-43.9 fl High RDW SD 50.1 LAB L100.1900 150-450 K/mm3 Normal PLT 217 LAB L100.2000 6.2-12.0 fl Normal MPV 10.4 Performed By: #### L100.0500 #### [facility] [address] [place], [address] RENAL PROFILE Collected: 11/17/2017 Status: F Source: GREG 7:34 AM [facility] REPOSITORY TYPE CODE TESTS RESULT OUT OF RANGE REFERENCE UNITS LAB L501.0100 74-106 mg/dL High GLU 114 Result Comment: Fasting Glucose result from 100 to 125 mg/dL suggests IMPAIRED HOMEOSTASIS per A.D.A. criteria. Please note revised GLUCOSE reference range effective 2017. LAB L501.1000 7-18 mg/dL High BUN 53 LAB L501.1100 0.70-1.30 mg/dL High CREAT,SERUM 3.63 Result Comment: The validity of the calculated GFR AND GFRAA in patients over 70 years has not been determined. Clinical correlation is essential. LAB L501.1110 >60 mL/min Low EST GFR 20 Result Comment: Non- GFR Calc LAB L501.1115 >60 mL/min Low EST GFR - AA 25 Result Comment: GFR Calc LAB L501.1300 10-20 RATIO Normal BUN/CRE 14.6 LAB L501.1800 3.2-5.0 g/dL Normal ALB 3.6 LAB L501.2200 8.5-10.1 mg/dL CA Normal 8.7 LAB L501.2300 2.5-4.9 mg/dL Normal PHOS 4.2 LAB L501.5300 136-145 mmol/L NA Normal 143 LAB L501.5600 3.5-5.1 mmol/L K Normal 4.9 LAB L501.5900 98-107 mmol/L High CL 108 LAB L501.6100 21.0-32.0 mmol/L Normal CO2 26.0 Performed By: #### L500.3600 #### [facility] [address] [place], [address] VITAMIN D,25 HYDROXY Collected: 11/17/2017 Status: F Source: GREG 7:34 AM [facility] REPOSITORY TYPE CODE TESTS RESULT OUT OF RANGE REFERENCE UNITS LAB L506.1000 29.95-100.01 ng/mL Normal Vitamin D 50.8 25-OH Result Comment: Vitamin D 25(OH) Status Range Deficiency <20 ng/mL (50nmol/L) Insuffciency 20 - 30 ng/mL (50 - 75 nmol/L) Sufficiency 30 - 100 ng/mL (75 - 250 nmol/L) Toxicity >100 ng/mL (>250 nmol/L) Performed By: #### L506.1000 #### [facility] [address] [place], [place], [address] PTHIN Collected: 11/17/2017 Status: F Source: [place] 7:34 AM [facility] REPOSITORY TYPE CODE TESTS RESULT OUT OF RANGE REFERENCE UNITS LAB L509.1000 18.4-80.1 pg/mL High PTHIN 118.4 Performed By: #### L509.1000 #### [facility] [address] [place], [place], [address] CBC Collected: 11/10/2017 Status: F Source: [place] 8:10 AM [facility] REPOSITORY TYPE CODE TESTS RESULT OUT OF RANGE REFERENCE UNITS LAB WBC 3.70-11.00 k/uL WBC 8.60 Result Comment: Less than optimal volume of specimen received and tested. LAB RBC 4.20-6.00 m/uL RBC Low 4.06 LAB HGB 13.0-17.0 g/dL Hemoglobin Low 12.5 LAB HCT 39.0-51.0 % Hematocrit 39.7 LAB MCV 80.0-100.0 fL MCV 97.8 LAB MCH 26.0-34.0 pG MCH 30.8 LAB MCHC 30.5-36.0 g/dL MCHC 31.5 LAB RDWCV 11.5-15.0 % RDW-CV High 15.3 LAB PLTCT 150-400 k/uL Platelet Count 198 LAB MPV 9.0-12.7 fL MPV 11.3 LAB ABSNUC <0.01 k/uL Absolute nRBC <0.01 Performed By: #### CBC #### [facility] [address] [place], [place] [address] ALBUMIN/CREAT RATIO Collected: 11/10/2017 Status: F Source: [place] 8:10 AM [facility] REPOSITORY TYPE CODE TESTS RESULT OUT OF REFERENCE UNITS RANGE LAB UCRR 20-300 mg/dL Creatinine,Ur 24.6 ine,Ran LAB UALBR 0.0-23.0 mg/L High Albumin Urine 37.3 Random LAB UALBCR 0-30 mg/g High Albumin/Creat 152 Ratio Result Comment: 30 to 300 mg/g indicates an increased risk for diabetic nephropathy. Greater than 300 mg/g is consistent with clinical nephropathy. (Am J Kidney Disease 1994, 25:107) Performed By: #### UACR #### [facility] [address] [place], [place] [address] COMP METABOLIC PANEL Collected: 11/10/2017 Status: F Source: [place] 8:10 AM [facility] REPOSITORY TYPE CODE TESTS RESULT OUT OF REFERENCE UNITS RANGE LAB TP 6.3-8.0 g/dL Protein, High Total 8.1 LAB ALB 3.9-4.9 g/dL Low Albumin 3.8 LAB CA 8.5-10.2 mg/dL Calcium, Total 8.7 LAB TBIL 0.2-1.3 mg/dL Bilirubin, Total 0.2 LAB ALKP 36-108 U/L Alkaline Phosphatase 99 LAB AST 14-40 U/L AST 26 LAB GLU 74-99 mg/dL Glucose High 202 Result Comment: The [place] Diabetes [employer] (ADA) provides guidance for cutoff values for fasting glucose and random glucose. The ADA defines fasting as no caloric intake for at least 8 hours. Fas ting plasma glucose results between 100 to 125 mg/dL indicate increased risk for diabetes (prediabetes). Fasting plasma glucose results greater than or equal to 126 mg/dL meet the criteria for diagnosis of diabetes. In the absence of unequivocal hyperglycemia, results should be confirmed by repeat testing. In a patient with classic symptoms of hyperglycemia or hyperglycemic crisis, random plasma glucose results greater than or equal to 200 mg/dL meet the criteria for diagnosis of diabetes. Reference: Standards of Medical Care in Diabetes 2016, [place] [employer]. Diabetes Care. 2016.39(Suppl 1). LAB BUN 9-24 mg/dL BUN High 78 LAB CRET 0.73-1.22 mg/dL Creatinine High 3.91 LAB NA 136-144 mmol/L Low Sodium 135 LAB K 3.7-5.1 mmol/L Potassium High 5.2 LAB CL 97-105 mmol/L Chloride 98 LAB CO2 22-30 mmol/L Low CO2 20 LAB AGAP 9-18 mmol/L Anion Gap 17 LAB ALT 10-54 U/L ALT 18 LAB GFRAA eGFR- Amer. 21 LAB GFRNAA . eGFR-All Other Races 18 Result Comment: eGFR (Estimated GFR) Units of measure: mL/min/1.73 meters squared eGFR is derived from the reexpressed MDRD Study equation using the following parameters: serum creatinine, age, gender and race. The creatinine assay has been calibrated to be traceable to IDMS. An eGFR <60 mL/min/1.73m2 for >3 months is consistent with chronic kidney disease. Refer to KDOQI guidelines for clinical interpretation. In patients with unstable renal function, e.g. those with acute kidney injury, the eGFR may not accurately reflect actual GFR. Performed By: #### CMP, HBA1C #### [facility] [address] [place] [address] HEMOGLOBIN A1C Collected: 11/10/2017 Status: F Source: [place] 8:10 AM [facility] REPOSITORY TYPE CODE TESTS RESULT OUT OF REFERENCE UNITS RANGE LAB HGBA1C 4.3-5.6 % High Hemoglobin A1c 7.5 LAB HBA0 mg/dL Est. Average Glucose 169 Result Comment: eAG: (Estimated average glucose) is a calculated value from HgbA1c and is sales representative adding machines of the average blood glucose level in the last 2-3 month period. Performed By: #### CMP, HBA1C #### [facility] [address] [place] [address] BASIC METABOLIC PANL Collected: 11/10/2017 Status: F Source: [place] 8:10 AM [facility] REPOSITORY TYPE CODE TESTS RESULT OUT OF REFERENCE UNITS RANGE LAB GLU 74-99 mg/dL High Glucose 209 Result Comment: The [place] Diabetes Association (ADA) provides guidance for cutoff values for fasting glucose and random glucose. The ADA defines fasting as no caloric intake for at least 8 hours. Fas ting plasma glucose results between 100 to 125 mg/dL indicate increased risk for diabetes (prediabetes). Fasting plasma glucose results greater than or equal to 126 mg/dL meet the criteria for diagnosis of diabetes. In the absence of unequivocal hyperglycemia, results should be confirmed by repeat testing. In a patient with classic symptoms of hyperglycemia or hyperglycemic crisis, random plasma glucose results greater than or equal to 200 mg/dL meet the criteria for diagnosis of diabetes. Reference: Standards of Medical Care in Diabetes 2016, [place] [employer]. Diabetes Care. 2016.39(Suppl 1). LAB BUN 9-24 mg/dL BUN High 77 LAB CRET 0.73-1.22 mg/dL Creatinine High 3.84 LAB NA 136-144 mmol/L Sodium 136 LAB K 3.7-5.1 mmol/L Potassium High 5.2 LAB CL 97-105 mmol/L Chloride 99 LAB CO2 22-30 mmol/L Low CO2 21 LAB AGAP 9-18 mmol/L Anion Gap 16 LAB CA 8.5-10.2 mg/dL Calcium, Total 9.0 LAB GFRAA eGFR- Amer. 22 LAB GFRNAA . eGFR-All Other Races 18 Result Comment: eGFR (Estimated GFR) Units of measure: mL/min/1.73 meters squared eGFR is derived from the reexpressed MDRD Study equation using the following parameters: serum creatinine, age, gender and race. The creatinine assay has been calibrated to be traceable to IDMS. An eGFR <60 mL/min/1.73m2 for >3 months is consistent with chronic kidney disease. Refer to KDOQI guidelines for clinical interpretation. In patients with unstable renal function, e.g. those with acute kidney injury, the eGFR may not accurately reflect actual GFR. Performed By: #### BMP #### [facility] [address] [place] [address] ANTI XA INHIB ASSAY Collected: 11/10/2017 Status: F Source: [place] *LAB USE ONLY* 8:10 AM [facility] REPOSITORY TYPE CODE TESTS RESULT OUT OF REFERENCE UNITS RANGE LAB ANTIXA Anti Anti Xa Xa Inhib activity was Assay *LAB detected. USE ONLY* Result Comment: This test was developed and its performance characteristics determined by [facility]'s [facility] [place] [facility]). It has not been cleared or approved by the FDA. [facility] is regulated under CLIA as qualified to perform high-complexity testing. This test is used for clinical purposes. It should not be regarded as investigational or for research. Performed By: #### ANTIXA, LUPUSP #### [facility] [address] [place], [place] [address] LUPUS ANTICOAG PANEL Collected: 11/10/2017 Status: F Source: [place] 8:10 AM [facility] REPOSITORY TYPE CODE TESTS RESULT OUT OF RANGE REFERENCE UNITS LAB PSEC 9.7-13.0 sec PT Sec 10.8 LAB INR 0.9-1.3 PT INR 1.0 Result Comment: Vitamin K Antagonist (VKA) Therapeutic Range: INR 2 to 3 (Target INR of 2.5) Note: For patients treated with VKA drugs, such as warfarin, the [place] [employer] 2012 Guideline recommends a therapeutic INR range of 2 to 3 (target INR of 2.5). This recommendation includes high-risk patients with antiphospholipid syndrome with previous arterial or venous thromboembolism, current-generation mechanical or bioprosthetic aortic heart valve replacement. Note: Patients with mechanical aortic valve replacement and additional risk factors for thromboembolic events (atrial fibrillation, previous thromboembolism, LV dysfunction, hypercoagulable conditions) or an older generation mechanical AVR (i.e., ball in-Cage) or any mechanical MVR should have a INR therapeutic range of 2.5 to 3.5 (target INR of 3). Aritt GH, et al. Chest 2012, 141:7S-47S Crystal RA, et al. [facility] 2017, 70: 252-289 LAB APTT 23.0-32.4 sec High APTT 33.1 Result Comment: Unfractionated Heparin Therapeutic Ranges: Standard Heparin Nomogram: 53 to 78 seconds (anti-Xa level of 0.3 to 0.7 U/ml) Low Dose/ACS Nomogram: 49 to 67 seconds (anti-Xa level of 0.2 to 0.5 U/ml) Stroke Treatment Nomogram: 49 to 67 seconds (anti-Xa level of 0.2 to 0.5 U/ml) Note: The APTT therapeutic range has been determined for the current lot of laboratory APTT reagent in use throughout the [facility]. LAB PLTNEU Negative PNP This Abnormal test is credited Alert due to interference with anti Xa inhibitor drug. LAB DRVSCN 32.7-46.7 sec DRVVT Screen This test is credited due to interference with anti Xa inhibitor drug. LAB DRVRAT <1.21 DRVVT Confirm This Ratio test is credited due to interference with anti Xa inhibitor drug. LAB DRVMIX 32.7-46.7 sec DRVVT 1:1 Mix This test is credited due to interference with anti Xa inhibitor drug. LAB HEXSCN 45.0-59.9 sec Hex Phase This Screen test is credited due to interference with anti Xa inhibitor drug. LAB HEXMIX 41.8-54.9 sec Hex Phase This Confirm test is credited due to interference with anti Xa inhibitor drug. LAB HEXDEL <9.1 delta sec Hex Phase This Delta test is credited due to interference with anti Xa inhibitor drug. LAB APTTSC 24.4-33.4 sec High APTT Screen 40.9 LAB IMPTT <33.2 sec Immed. PTT 1:1 This Mix test is credited due to interference with anti Xa inhibitor drug. LAB 1HRPTT <35.0 sec Incub. PTT 1:1 This Mix test is credited due to interference with anti Xa inhibitor drug. LAB TT <18.6 sec Thrombin Time 17.5 LAB LUPINT Interpretation (NOTE) Result Comment: Performing Pathologist: Maria De Jesus Sauceda M.D. Abnormal - see comment below. SIGNIFICANT FINDINGS: 1. Apixaban effect, cannot evaluate for lupus anticoagulant Laboratory testing was performed to evaluate the presence of a lupus anticoagulant and anti-phospholipid antibodies. The APTT value was prolonged with a normal PT/INR. Anti-Xa activity was detected in the plasma. A normal thrombin time (TT) makes a heparin and/or direct thrombin inhibitor effect unlikely. LUPUS ANTICOAGULANT STUDIES: The patient is currently receiving Apixaban. The factor Xa inhibitor drugs interfere with certain clotting-based tests in coagulation assays. Incubated APTT mixing study, STACLOT, DRVVT and platelet neutralization cannot be performed in this specimen. A lupus anticoagulant cannot be excluded at this time. Suggest repeating the lupus anticoagulant evaluation when the patient is no longer receiving a factor Xa inhibitor drug. ANTIPHOSPHOLIPID ANTIBODY STUDIES: One or more of the anticardiolipin antibody titers were minimally elevated. These findings are of doubtful clinical significance. Both the IgG and IgM Beta-2 Glycoprotein I antibody titers were negative. LAB CARDG 0-9 GPL IgG Cardiolipin Ab. <9 Result Comment: <10 GPL Negative 10-40 GPL Equivocal >40 GPL Positive The following results were obtained with the [employer] QUANTA Lite ADELE IgG III KWADWO. Cardiolipin IgG values obtained with the different manufacturers' assay methods may not be used interchangeably. The mag nitude of the reported IgG levels cannot be correlated to an endpoint titer. LAB CARDM 0-11 MPL IgM Cardiolipin High Ab. 13 Result Comment: <12 MPL Negative 12-40 MPL Equivocal >40 MPL Positive The following results were obtained with the [employer] QUANTA Lite ADELE IgM III KWADWO. Cardiolipin IgM values obtained with different manufacturers' assay methods may not be used interchangeably. The magnitu de of the reported IgM levels cannot be correlated to an endpoint titer. LAB CARDA 0-11 APL IgA Cardiolipin Ab. <9 Result Comment: <12 APL Negative 12-40 APL Equivocal >40 APL Positive The following results were obtained with an [employer] QUANTA Lite ADELE IgA III KWADWO. Cardiolipin IgA values obtained with different manufacturers' assay methods may not be used interchangeably. The magnitud e of the reported IgA levels cannot be correlated to an endpoint titer. LAB B2GPG <20 SGU Beta2 Glycoprot IgG <9 Result Comment: < 20 SGU Negative 20-80 SGU Low Positive > 80 SGU High Positive These results were obtained with the [employer] QUANTA Lite B2 GPI IgG KWADWO. B2 GPI IgG values obtained with different manufacturers' assay methods may not be used interchangeably. The magnitude of the repo rted IgG levels cannot be correlated to an endpoint titer. LAB B2GPM <20 SMU Beta2 Glycoprot IgM 17 Result Comment: < 20 SMU Negative 20-80 SMU Low Positive > 80 SMU High Positive These results were obtained with the [employer] QUANTA Lite B2 GPI IgM KWADWO. B2 GPI IgM values obtained with different manufacturers' assay methods may not be used interchangeably. The magnitude of the repo rted IgM levels cannot be correlated to an endpoint titer. Performed By: #### ANTIXA, LUPUSP #### [facility] [address] [place], [place] [address] CNOV Observed: 11/06/2017 Status: COMPLETED Source: [place] 12:20 PM [facility] REPOSITORY Office Visit (INTMWS) JARON MORSE ([id number]) 1980 M Date Time Provider Department 11/06/17 12:20 PM GEORGI LEE (PERSONNEL MONITOR) INTMWS During your visit today, we recorded the following information about you: Pulse Respiration Blood pressure Weight 84/minute 16/minute 124/84 96.6 kg Georgi Lee APRN.CNS 11/06/2017 1:30 PM Signed OUTPATIENT VISIT DATE November 06, 2017 OUTPATIENT VISIT TYPE ESTABLISHED PRIMARY CARE PHYSICIAN: Francine Clark MD CHIEF COMPLAINT: Patient presents with: Hospital F/U History of Present Illness: Jaron Morse is a 37 year old male who was last seen 07/2017 in . 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 Since the last visit, he was admitted to [facility] September 06, 2017 through September 22, 2017. Presented with abdominal pain and distention. On discharge final diagnoses for acute hypoxic respiratory failure status post intubation and extubation, bilateral hydronephrosis with gross hematuria improved, acute kidney injury secondary to the hydronephrosis status post multiple hemodialysis sessions, severe sepsis with bacteremia with Serratia infection. UTI with yeast on fluconazole. History of upper extremity DVT. Mental challenge and developmental delay. Hyponatremia, hyperkalemia improved. Diabetes mellitus, probable pneumonia on meropenem improved. Discharged to [facility], [facility] Seen by Dr. Hodge 10/17/3027. Continuous suprapubic catheter. Recently had significant gross hematuria, more than usual. Klonopin bladder caused retention bilateral hydronephrosis and acute on chronic renal failure requiring hemodialysis while hospitalized. He was scheduled for office cystoscopy at his last visit. Today reports feeling improved. No cough or shortness of breath present. Reports eating well. Drinking sufficient fluids. No recent fever. Ambulating with Rollator. Notes feeling stiff in the morning when he gets up. Does note itching in his ears. No recent hospital or ED visits. No new medical problems or medications. Able to obtain medications. No problems with taking medications or note side effects. PAST MEDICAL HISTORY Diagnosis Date - Acute deep vein thrombosis (DVT) of right upper extremity (HCC) 03/19/15 Diagnosed during hospital admission; coumadin started - Acute embolism and thrombosis of deep vein of right upper extremity (HCC) 04/09/2015 - Acute gastritis without mention of hemorrhage 08/21/2012 - Allergic rhinitis - Anemia 03/07/2015 - Attention deficit disorder with hyperactivity(314.01) - Chronic renal failure Dr. 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 - Hand fracture 07/2012 right - Hemorrhage of gastrointestinal tract, unspecified 08/21/2012 - Hypernatremia 03/07/2015 - Incisional infection 02/04/16 - Nocturnal enuresis 04/28/2005 - OTHER MENTAL RETARDATION - MILD 02/07/2005 - Presence of suprapubic catheter ([facility]) Dr. Frias - Retention of urine, unspecified 08/20/2007 - Type I (juvenile type) diabetes mellitus without mention of complication, not stated as uncontrolled 02/04/2005 Dr. Olmedo PAST SURGICAL HISTORY Procedure Laterality Date - APPENDECTOMY 2000 - AV FUSE, UPPR ARM, CEPHALIC 12/17/15 Transposition left upper arm cephalic vein to brachial artery arteriovenous fistula creation - [facility] 12/04/14 decompression for pseudoobstruction - COLONOSCOPY 08/21/2012 and EGD - EGD W/REM FB STOMACH/DUOD 01/02/2017 removal of PEG tube with EGD to remove fragment - EGD W/REM FB STOMACH/DUOD 12/2016 - IR VASCULAR ACCESS TEAM PICC REPOSITION 04/04/2015 - MIDLINE INSERTION/CONSULT 03/03/2015 - PAST SURGICAL HISTORY OF Laparotomy - PAST SURGICAL HISTORY OF 01/22/2015 negative exploratory laparotomy for pneumatosis intestinalis high grade bowel obstruction - PICC LINE INSERT/CONSULT 04/02/2015 - PICC LINE INSERT/CONSULT 04/03/2015 - SUPRAPUBIC CATHETER FAMILY HISTORY Problem Relation Age of Onset - unknown [Other] [OTHER] - Diabetes Father Diabetic, unsure of which type, did not want to provide additional FH details. Social History Substance Use Topics - Smoking status: Never Smoker - Smokeless tobacco: Never Used - Alcohol use No ALLERGIES: ALLERGIES Allergen Reactions - Seasonal Allergies Other: See Comments Environmental-ragweed MEDICATIONS carbamide peroxide (DEBROX) 6.5 % otic solution Use 5 Drops in both ears twice daily. for 5 days then discontinue ketoconazole (NIZORAL) 2 % shampoo APPLY LATHER TO AFFECTED SKIN ON FACE AND RINSE OFF AFTER 2-5 MIN. USE DAILY NEEDED ELIQUIS 2.5 mg tab tab(s) TAKE (1) TABLET BY MOUTH TWICE A DAY. cholecalciferol (VITAMIN D3) 5,000 unit tab TAKE (1) TABLET BY MOUTH ONCE DAILY. loratadine (CLARITIN) 10 mg tablet TAKE (1) TABLET BY MOUTH ONCE DAILY. melatonin 3 mg tablet TAKE 1 TABLET BY MOUTH DAILY AT BEDTIME polyethylene glycol 3350 (MIRALAX, GLYCOLAX) 17 gram/dose powder MIX 1 CAPFUL (17 GMS) IN 8 OZ OF WATER 2 TIMES DAILY; IF NO BM BY 8PM, GIVE 3RD DOSE ND-ACID GAS RELIEF 80 mg chewable tablet CHEW 1 TABLET BY MOUTH WITH MEALS AND AT BEDTIME Ascorbic Acid (VITAMIN C) 1,000 mg tablet Take 1 tablet by mouth once daily. insulin glargine (LANTUS SOLOSTAR) 100 unit/mL (3 mL) inpn Inject 10 Units subcutaneously twice daily. aspirin, enteric coated (ASPIRIN, ENTERIC COATED) 81 mg EC tablet TAKE (1) TABLET BY MOUTH DAILY IN THE MORNING. pantoprazole DR (PROTONIX) 40 mg tablet TAKE 1 TABLET BY MOUTH ONCE DAILY 1/2 HR BEFORE BREAKFAST olopatadine (PAZEO) 0.7 % drop Use 1 Drop in eyes once daily. metoprolol tartrate, short acting, (LOPRESSOR) 25 mg tablet TAKE (1/2) TABLET BY MOUTH TWICE DAILY. ATENOLOL ORAL Take by mouth. Pt unsure of daose senna (SENNA LAX) 8.6 mg tab Take 1 tablet by mouth twice daily. atorvastatin (LIPITOR) 10 mg tablet TAKE ONE-HALF (1/2) TABLET AT BEDTIME. Insulin Lispro, Human, (HUMALOG KWIKPEN) 100 unit/mL inpn Inject 6 Units subcutaneously w MEALS. And additional sliding scale as instructed TDD: 30 glucose (DEX4 GLUCOSE POUCH PACK) 4 gram chewable tablet Take 4 tablets by mouth as needed for Low Blood Sugar. Lancets lancets Test blood sugar(s) 8 times daily. Dx: Type 2 DM - Uncontrolled E11.65 Insulin: Yes blood sugar diagnostic (BLOOD GLUCOSE TEST) test strip Test blood sugar(s) 8 times daily. Dx: Type 1 DM - Uncontrolled E10.69 Insulin: Yes insulin needles, DISPOSABLE, (ULTICARE PEN NEEDLE) 31 gauge x 5/16 ndle TAKE FIVE- SIX INJECTIONS DAILY INSTRUCTED fluticasone (FLONASE) 50 mcg/actuation nasal spray USE 2 SPRAYS IN EACH NOSTRIL ONCE DAILY. RINSE MOUTH AFTER USE. oxybutynin (DITROPAN) 5 mg tablet Take 1 tablet by mouth as needed (once daily as needed for bladder spasms). albuterol HFA (PROVENTIL HFA, VENTOLIN HFA) 90 mcg/actuation inhaler Inhale 2 Puffs as instructed every 4 hours as needed. QUEtiapine (SEROQUEL) 200 mg tablet TAKE (1) TABLET BY MOUTH TWICE A DAY. QUEtiapine (SEROQUEL) 100 mg tablet TAKE 1 TABLET BY MOUTH ONCE DAILY AT 5 PM ammonium lactate (LAC-HYDRIN) 12 % cream Apply 1 application to affected area twice daily. FLUoxetine HCl 20 mg tablet Take 1 tablet by mouth once daily. COMPOUNDED PRESCRIPTION Please provide [facility] glucocard test strips to check blood sugar four to six Times a day bisacodyl (LAXATIVE, BISACODYL,) 10 mg supp 1 Suppository by RECTAL route once daily as needed. for constipation FLUoxetine (PROZAC) 10 mg capsule Take 1 capsule by mouth once daily. (Dr. Jia Khalil adding to 20 mg dose) guaiFENesin (MUCINEX) 600 mg 12 hr tablet Take 2 tablets by mouth twice daily. docusate sodium (COLACE) 100 mg capsule Take 1 capsule by mouth twice daily as needed for Constipation. REVIEW OF SYSTEMS: GENERAL: Negative for: Weight loss or gain, Fever or Chills, Weakness and Sleep difficulties. Physical Examination: BP 124/84 Pulse 84 Resp 16 Wt 213 lb (96.6kg) Extended Vitals not filed for this encounter. General appearance: Well appearing, alert, in no acute distress, well-hydrated, well nourished. Walking with walker. Skin: Skin color, texture, turgor normal, no suspicious rashes or lesions Ears: External ears normal, canals + cerumen bilateral, TM's normal Nose/Sinuses: Nares normal, septum midline, mucosa normal, no drainage or sinus tenderness Neck: Supple, no adenopathy; thyroid symmetric, normal size, no bruits Lungs: Lungs clear to auscultation. No wheezing, rhonchi, rales Heart: RRR without murmur, gallop, or rubs. No ectopy Abdomen: Abdomen soft, non-tender. Bowel sounds normal. No masses, organomegaly Extremities: No edema, skin discoloration, clubbing or cyanosis. Good capillary refill. Peripheral pulses: Normal Neuro: Gait normal. Sensation grossly intact. Reviewed chart, outside records, tests I personally interviewed, confirmed and edited the above information if obtained by others. TESTING: Glucose (mg/dL) Date Value 03/15/2017 252 Potassium (mmol/L) Date Value 03/15/2017 5.1 Sodium (mmol/L) Date Value 03/15/2017 133 Chloride (mmol/L) Date Value 03/15/2017 97 CO2 (mmol/L) Date Value 03/15/2017 24 Creatinine (mg/dL) Date Value 03/15/2017 2.64 BUN (mg/dL) Date Value 03/15/2017 38 Anion Gap (mmol/L) Date Value 03/15/2017 12 Calcium (mg/dL) Date Value 03/15/2017 9.0 Glucose (mg/dL) Date Value 03/15/2017 252 Potassium (mmol/L) Date Value 03/15/2017 5.1 Sodium (mmol/L) Date Value 03/15/2017 133 Chloride (mmol/L) Date Value 03/15/2017 97 CO2 (mmol/L) Date Value 03/15/2017 24 Creatinine (mg/dL) Date Value 03/15/2017 2.64 BUN (mg/dL) Date Value 03/15/2017 38 Anion Gap (mmol/L) Date Value 03/15/2017 12 Calcium (mg/dL) Date Value 03/15/2017 9.0 Protein, Total (g/dL) Date Value 03/15/2017 7.4 Albumin (g/dL) Date Value 03/15/2017 4.0 Bilirubin, Total (mg/dL) Date Value 03/15/2017 0.3 Alkaline Phosphatase (U/L) Date Value 03/15/2017 128 AST (U/L) Date Value 03/15/2017 34 ALT (U/L) Date Value 03/15/2017 29 Hemoglobin (g/dL) Date Value 09/07/2016 12.6 Hematocrit (%) Date Value 09/07/2016 40.4 WBC (k/uL) Date Value 09/07/2016 6.35 Cholesterol, Total (mg/dL) Date Value 03/15/2017 126 HDL Cholesterol (mg/dL) Date Value 03/15/2017 26 LDL Cholesterol (mg/dL) Date Value 03/15/2017 51 Triglyceride (mg/dL) Date Value 03/15/2017 245 Hemoglobin A1C Date Value Ref Range Status 03/15/2017 8.7 (H) 4.3 - 5.6 % Final Comment: [place] [employer] guidelines indicate that patients with HgbA1c in the range 5.7-6.4% are at increased risk for development of diabetes, and intervention by lifestyle modification may be beneficial. HgbA1c greater or equal to 6.5% is considered diagnostic of diabetes. 11/18/2016 8.8 (H) 4.3 - 5.6 % Final Comment: [place] [employer] guidelines indicate that patients with HgbA1c in the range 5.7-6.4% are at increased risk for development of diabetes, and intervention by lifestyle modification may be beneficial. HgbA1c greater or equal to 6.5% is considered diagnostic of diabetes. 08/09/2016 9.1 (H) 4.3 - 5.6 % Final Comment: [place] [employer] guidelines indicate that patients with HgbA1c in the range 5.7-6.4% are at increased risk for development of diabetes, and intervention by lifestyle modification may be beneficial. HgbA1c greater or equal to 6.5% is considered diagnostic of diabetes. 03/14/2016 9.5 (H) 4.3 - 5.6 % Final Comment: [place] [employer] guidelines indicate that patients with HgbA1c in the range 5.7-6.4% are at increased risk for development of diabetes, and intervention by lifestyle modification may be beneficial. HgbA1c greater or equal to 6.5% is considered diagnostic of diabetes. 10/27/2015 10.3 (H) 4.3 - 5.6 % Final Comment: [place] [employer] guidelines indicate that patients with HgbA1c in the range 5.7-6.4% are at increased risk for development of diabetes, and intervention by lifestyle modification may be beneficial. HgbA1c greater or equal to 6.5% is considered diagnostic of diabetes. Ejection Fraction - Result: 58 % Date: 03/30/2015 Time: 10:48:46 IMPRESSION: Mr. Morse is a 37 year old And [facility]. [facility] Initially seen at [facility] September 06 - [place] 6. Cystoscopy planned with Dr. Hodge. After my examination and review of data, I make the following recommendations. PLAN AND RECOMMENDATIONS: 1. Uncontrolled type 1 diabetes mellitus with stage 3 chronic kidney disease, with long-term current use of insulin ([facility]) - ICD9: 250.43, 585.3, ICD10: E10.22, E10.65, N18.3 (primary diagnosis) - HGB A1C - INSULIN LISPRO (U-100) 100 UNIT/ML SUBCUTANEOUS PEN - BASIC METABOLIC PNL 2. CKD (chronic kidney disease) stage 4, GFR 15-29 ml/min ([facility]) - ICD9: 585.4, ICD10: N18.4 - BASIC METABOLIC PNL 3. Hydronephrosis with ureteral stricture, not elsewhere classified - ICD9: 591, ICD10: N13.1 - BASIC METABOLIC PNL 4. Excessive cerumen in ear canal, bilateral - ICD9: 380.4, ICD10: H61.23 - CARBAMIDE PEROXIDE 6.5 % EAR DROPS 5. Acute respiratory failure with hypoxia ([facility]) - ICD9: 518.81, ICD10: J96.01 6. Bilateral hydronephrosis - ICD9: 591, ICD10: N13.30 - BASIC METABOLIC PNL 7. Acute kidney injury ([facility]) - ICD9: 584.9, ICD10: N17.9 - BASIC METABOLIC PNL 8. Severe sepsis with acute organ dysfunction due to Serratia species ([facility]) - ICD9: 038.44, 995.92, ICD10: A41.53, R65.20 - BASIC METABOLIC PNL 9. Urinary tract infection with hematuria, site unspecified - ICD9: 599.0, ICD10: N39.0, R31.9 - BASIC METABOLIC PNL 10. Pneumonia due to organism - ICD9: 486, ICD10: J18.9 - BASIC METABOLIC PNL Advised to go to ER if develops chest pain, shortness of breath, or severe worsening of symptoms. Discussed risks, benefits, alternatives, and potential side effects of medications. Mr. Morse expressed understanding and agreed with the plan. Georgi Lee APRN.CUCA Lee APRN.CNS 11/06/2017 1:07 PM Signed Complete lab work Use Debrox eardrops twice daily for 5 days. Keep scheduled appointment with Francine Clark MD in November Referring Provider: SELF [[id number]] Allergies As of Date: 11/06/2017 Noted Allergy Reaction SEASONAL ALLERGIES 12/03/2012 14 - Other: See Comments Comments: Environmental-ragweed Date Reviewed: 11/06/2017 Reviewed by: Kassandra Rueda LPN - Fully Assessed Reason for Visit: Hospital F/U [57] Primary Visit Diagnosis:Uncontrolled type 1 diabetes mellitus with stage 3 chronic kidney disease, with long- term current use of insulin ([facility]) [E10.22, E10.65, N18.3] Other Visit Diagnoses:CKD (chronic kidney disease) stage 4, GFR 15-29 ml/min ([facility]) [N18.4] Hydronephrosis with ureteral stricture, not elsewhere classified [N13.1] Excessive cerumen in ear canal, bilateral [H61.23] Acute respiratory failure with hypoxia ([facility]) [J96.01] Bilateral hydronephrosis [N13.30] Acute kidney injury ([facility]) [N17.9] Severe sepsis with acute organ dysfunction due to Serratia species ([facility]) [A41.53, R65.20] Urinary tract infection with hematuria, site unspecified [N39.0, R31.9] Pneumonia due to organism [J18.9] Order(s):HGB A1C [UYKRY4E] Order #: [id number] FUTURE carbamide peroxide (DEBROX) 6.5 % otic solutionUse 5 Drops in both ears twice daily. for 5 days then discontinueDisp: 1 BottleRfl: 1 insulin lispro (HUMALOG KWIKPEN INSULIN) 100 unit/mL inpnInject 6 Units subcutaneously w MEALS. And additional sliding scale as instructed TDD: 30 currently 8 units subcutaneous at breakfast and supper, sliding scale 3 times a day before mealsDisp: Rfl: BASIC METABOLIC PNL [SQBMP] Order #: [id number] FUTURE Prescriptions as of 11/06/2017 Sig: CARBAMIDE PEROXIDE 6.5 % EAR * Use 5 Drops in both ears twic* INSULIN LISPRO (U-100) 100 UN* Inject 6 Units subcutaneously* KETOCONAZOLE 2 % SHAMPOO APPLY LATHER TO AFFECTED SKIN* ELIQUIS 2.5 MG TABLET TAKE (1) TABLET BY MOUTH TWIC* CHOLECALCIFEROL (VITAMIN D3) * TAKE (1) TABLET BY MOUTH ONCE* LORATADINE 10 MG TABLET TAKE (1) TABLET BY MOUTH ONCE* MELATONIN 3 MG TABLET TAKE 1 TABLET BY MOUTH DAILY * POLYETHYLENE GLYCOL 3350 17 G* MIX 1 CAPFUL (17 GMS) IN 8 OZ* ND-ACID GAS RELIEF 80 MG CHEW* CHEW 1 TABLET BY MOUTH WITH M* ASCORBIC ACID (VITAMIN C) 1,0* Take 1 tablet by mouth once d* INSULIN GLARGINE (U-100) 100 * Inject 10 Units subcutaneousl* ASPIRIN 81 MG TABLET,DELAYED * TAKE (1) TABLET BY MOUTH JACQUELIN* PANTOPRAZOLE 40 MG TABLET,DEL* TAKE 1 TABLET BY MOUTH ONCE D* OLOPATADINE 0.7 % EYE DROPS Use 1 Drop in eyes once daily. METOPROLOL TARTRATE 25 MG TAB* TAKE (1/2) TABLET BY MOUTH TW* SENNOSIDES 8.6 MG TABLET Take 1 tablet by mouth twice * ATORVASTATIN 10 MG TABLET TAKE ONE-HALF (1/2) TABLET AT* GLUCOSE 4 GRAM CHEWABLE TABLET Take 4 tablets by mouth as ne* LANCETS Test blood sugar(s) 8 times d* BLOOD SUGAR DIAGNOSTIC STRIPS Test blood sugar(s) 8 times d* PEN NEEDLE, DIABETIC 31 GAUGE* TAKE FIVE- SIX INJECTIONS VASYL* FLUTICASONE 50 MCG/ACTUATION * USE 2 SPRAYS IN EACH NOSTRIL * OXYBUTYNIN CHLORIDE 5 MG TABL* Take 1 tablet by mouth as nee* ALBUTEROL SULFATE HFA 90 MCG/* Inhale 2 Puffs as instructed * QUETIAPINE 200 MG TABLET TAKE (1) TABLET BY MOUTH TWIC* QUETIAPINE 100 MG TABLET TAKE 1 TABLET BY MOUTH ONCE D* AMMONIUM LACTATE 12 % TOPICAL* Apply 1 application to affect* COMPOUNDED PRESCRIPTION Please provide ARKKAY glucoca* BISACODYL 10 MG RECTAL SUPPOS* 1 Suppository by RECTAL route* DOCUSATE SODIUM 100 MG CAPSULE Take 1 capsule by mouth twice* Problem List As Of Date 11/06/2017 Noted Resolved ATTN DEFICIT W HYPERACT [F90.9] INVALID FOR* Uncontrolled type 1 diabetes mellitus (HCC) [E1*INVALID FOR* HYDRONEPHROSIS [N13.30] INVALID FOR* 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 Allergic rhinitis [J30.9] DVT of left axillary vein, acute (HCC) [I82.A12]INVALID FOR* Other instructions from your clinician: Complete lab work Use Debrox eardrops twice daily for 5 days. Keep scheduled appointment with Francine Clark MD in November Prescriptions ordered this encounter Disp Refills Start End CARBAMIDE PEROXIDE 6.5 % EAR DROPS 1 Vito* 1 11/06/2017 Route: BOTH EARS Sig: Use 5 Drops in both ears twice daily. for 5 days then discontinue INSULIN LISPRO (U-100) 100 UNIT/ML S* 11/06/2017 Class: Med Update Route: SUBCUTANEOUS Sig: Inject 6 Units subcutaneously w MEALS. And additional sliding scale as instructed TDD: 30 currently 8 units subcutaneous at breakfast and supper, sliding scale 3 times a day before meals Medications Discontinued During This Encounter ATENOLOL ORAL 11/06/2017 Class: Historical Med Route: ORAL Sig: Take by mouth. Pt unsure of daose Disc: Reason for discontinue is not on file. FLUoxetine (PROZAC) 10 mg capsule 04/18/2016 11/06/2017 Class: Med Update Route: ORAL Sig: Take 1 capsule by mouth once daily. (Dr. Jia Khalil adding to 20 mg dose) Disc: Reason for discontinue is not on file. FLUoxetine HCl 20 mg tablet 30 t* 5 05/20/2016 11/06/2017 Route: ORAL Sig: Take 1 tablet by mouth once daily. Disc: Reason for discontinue is not on file. guaiFENesin (MUCINEX) 600 mg 12 hr t* 30 t* 0 03/11/2016 11/06/2017 Route: ORAL Sig: Take 2 tablets by mouth twice daily. Disc: Reason for discontinue is not on file. Insulin Lispro, Human, (HUMALOG KWIK* 03/13/2017 11/06/2017 Class: Med Update Route: SUBCUTANEOUS Sig: Inject 6 Units subcutaneously w MEALS. And additional sliding scale as instructed TDD: 30 Disc: Reason for discontinue is not on file. Encounter Status:Closed by GEORGI ANGELO on 11/06/17 PROGRESS Observed: 11/06/2017 Status: COMPLETED Source: [place] 9:13 AM [facility] REPOSITORY HNO ID: [id number] Author: Georgi (Cuca) Jesus Service: (none) Author Type: Nurse Specialist Type: Progress Notes Filed: 11/06/2017 1:30 PM Note Text: OUTPATIENT VISIT DATE November 06, 2017 OUTPATIENT VISIT TYPE ESTABLISHED PRIMARY CARE PHYSICIAN: Francine Clark MD CHIEF COMPLAINT: Patient presents with: Hospital F/U History of Present Illness: Jaron Morse is a 37 year old male who was last seen 07/2017 in . 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 Since the last visit, he was admitted to [facility] September 06, 2017 through September 22, 2017. Presented with abdominal pain and distention. On discharge final diagnoses for acute hypoxic respiratory failure status post intubation and extubation, bilateral hydronephrosis with gross hematuria improved, acute kidney injury secondary to the hydronephrosis status post multiple hemodialysis sessions, severe sepsis with bacteremia with Serratia infection. UTI with yeast on fluconazole. History of upper extremity DVT. Mental challenge and developmental delay. Hyponatremia, hyperkalemia improved. Diabetes mellitus, probable pneumonia on meropenem improved. Discharged to [facility], [facility] Seen by Dr. Hodge 10/17/3027. Continuous suprapubic catheter. Recently had significant gross hematuria, more than usual. Klonopin bladder caused retention bilateral hydronephrosis and acute on chronic renal failure requiring hemodialysis while hospitalized. He was scheduled for office cystoscopy at his last visit. Today reports feeling improved. No cough or shortness of breath present. Reports eating well. Drinking sufficient fluids. No recent fever. Ambulating with Rollator. Notes feeling stiff in the morning when he gets up. Does note itching in his ears. No recent hospital or ED visits. No new medical problems or medications. Able to obtain medications. No problems with taking medications or note side effects. PAST MEDICAL HISTORY Diagnosis Date - Acute deep vein thrombosis (DVT) of right upper extremity (HCC) 03/19/15 Diagnosed during hospital admission; coumadin started - Acute embolism and thrombosis of deep vein of right upper extremity (HCC) 04/09/2015 - Acute gastritis without mention of hemorrhage 08/21/2012 - Allergic rhinitis - Anemia 03/07/2015 - Attention deficit disorder with hyperactivity(314.01) - Chronic renal failure Dr. 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 - Hand fracture 07/2012 right - Hemorrhage of gastrointestinal tract, unspecified 08/21/2012 - Hypernatremia 03/07/2015 - Incisional infection 02/04/16 - Nocturnal enuresis 04/28/2005 - OTHER MENTAL RETARDATION - MILD 02/07/2005 - Presence of suprapubic catheter ([facility]) Dr. Frias - Retention of urine, unspecified 08/20/2007 - Type I (juvenile type) diabetes mellitus without mention of complication, not stated as uncontrolled 02/04/2005 Dr. Olmedo PAST SURGICAL HISTORY Procedure Laterality Date - APPENDECTOMY 2000 - AV FUSE, UPPR ARM, CEPHALIC 12/17/15 Transposition left upper arm cephalic vein to brachial artery arteriovenous fistula creation - COLONOSCOP W/ OR W/O [facility] SPEC 12/04/14 decompression for pseudoobstruction - COLONOSCOPY 08/21/2012 and EGD - EGD W/REM FB STOMACH/DUOD 01/02/2017 removal of PEG tube with EGD to remove fragment - EGD W/REM FB STOMACH/DUOD 12/2016 - IR VASCULAR ACCESS TEAM PICC REPOSITION 04/04/2015 - MIDLINE INSERTION/CONSULT 03/03/2015 - PAST SURGICAL HISTORY OF Laparotomy - PAST SURGICAL HISTORY OF 01/22/2015 negative exploratory laparotomy for pneumatosis intestinalis high grade bowel obstruction - PICC LINE INSERT/CONSULT 04/02/2015 - PICC LINE INSERT/CONSULT 04/03/2015 - SUPRAPUBIC CATHETER FAMILY HISTORY Problem Relation Age of Onset - unknown [Other] [OTHER] - Diabetes Father Diabetic, unsure of which type, did not want to provide additional FH details. Social History Substance Use Topics - Smoking status: Never Smoker - Smokeless tobacco: Never Used - Alcohol use No ALLERGIES: ALLERGIES Allergen Reactions - Seasonal Allergies Other: See Comments Environmental-ragweed MEDICATIONS carbamide peroxide (DEBROX) 6.5 % otic solution Use 5 Drops in both ears twice daily. for 5 days then discontinue ketoconazole (NIZORAL) 2 % shampoo APPLY LATHER TO AFFECTED SKIN ON FACE AND RINSE OFF AFTER 2-5 MIN. USE DAILY NEEDED ELIQUIS 2.5 mg tab tab(s) TAKE (1) TABLET BY MOUTH TWICE A DAY. cholecalciferol (VITAMIN D3) 5,000 unit tab TAKE (1) TABLET BY MOUTH ONCE DAILY. loratadine (CLARITIN) 10 mg tablet TAKE (1) TABLET BY MOUTH ONCE DAILY. melatonin 3 mg tablet TAKE 1 TABLET BY MOUTH DAILY AT BEDTIME polyethylene glycol 3350 (MIRALAX, GLYCOLAX) 17 gram/dose powder MIX 1 CAPFUL (17 GMS) IN 8 OZ OF WATER 2 TIMES DAILY; IF NO BM BY 8PM, GIVE 3RD DOSE ND-ACID GAS RELIEF 80 mg chewable tablet CHEW 1 TABLET BY MOUTH WITH MEALS AND AT BEDTIME Ascorbic Acid (VITAMIN C) 1,000 mg tablet Take 1 tablet by mouth once daily. insulin glargine (LANTUS SOLOSTAR) 100 unit/mL (3 mL) inpn Inject 10 Units subcutaneously twice daily. aspirin, enteric coated (ASPIRIN, ENTERIC COATED) 81 mg EC tablet TAKE (1) TABLET BY MOUTH DAILY IN THE MORNING. pantoprazole DR (PROTONIX) 40 mg tablet TAKE 1 TABLET BY MOUTH ONCE DAILY 1/2 HR BEFORE BREAKFAST olopatadine (PAZEO) 0.7 % drop Use 1 Drop in eyes once daily. metoprolol tartrate, short acting, (LOPRESSOR) 25 mg tablet TAKE (1/2) TABLET BY MOUTH TWICE DAILY. ATENOLOL ORAL Take by mouth. Pt unsure of daose senna (SENNA LAX) 8.6 mg tab Take 1 tablet by mouth twice daily. atorvastatin (LIPITOR) 10 mg tablet TAKE ONE-HALF (1/2) TABLET AT BEDTIME. Insulin Lispro, Human, (HUMALOG KWIKPEN) 100 unit/mL inpn Inject 6 Units subcutaneously w MEALS. And additional sliding scale as instructed TDD: 30 glucose (DEX4 GLUCOSE POUCH PACK) 4 gram chewable tablet Take 4 tablets by mouth as needed for Low Blood Sugar. Lancets lancets Test blood sugar(s) 8 times daily. Dx: Type 2 DM - Uncontrolled E11.65 Insulin: Yes blood sugar diagnostic (BLOOD GLUCOSE TEST) test strip Test blood sugar(s) 8 times daily. Dx: Type 1 DM - Uncontrolled E10.69 Insulin: Yes insulin needles, DISPOSABLE, (ULTICARE PEN NEEDLE) 31 gauge x 5/16 ndle TAKE FIVE- SIX INJECTIONS DAILY INSTRUCTED fluticasone (FLONASE) 50 mcg/actuation nasal spray USE 2 SPRAYS IN EACH NOSTRIL ONCE DAILY. RINSE MOUTH AFTER USE. oxybutynin (DITROPAN) 5 mg tablet Take 1 tablet by mouth as needed (once daily as needed for bladder spasms). albuterol HFA (PROVENTIL HFA, VENTOLIN HFA) 90 mcg/actuation inhaler Inhale 2 Puffs as instructed every 4 hours as needed. QUEtiapine (SEROQUEL) 200 mg tablet TAKE (1) TABLET BY MOUTH TWICE A DAY. QUEtiapine (SEROQUEL) 100 mg tablet TAKE 1 TABLET BY MOUTH ONCE DAILY AT 5 PM ammonium lactate (LAC-HYDRIN) 12 % cream Apply 1 application to affected area twice daily. FLUoxetine HCl 20 mg tablet Take 1 tablet by mouth once daily. COMPOUNDED PRESCRIPTION Please provide [facility] glucocard test strips to check blood sugar four to six Times a day bisacodyl (LAXATIVE, BISACODYL,) 10 mg supp 1 Suppository by RECTAL route once daily as needed. for constipation FLUoxetine (PROZAC) 10 mg capsule Take 1 capsule by mouth once daily. (Dr. Jia Khalil adding to 20 mg dose) guaiFENesin (MUCINEX) 600 mg 12 hr tablet Take 2 tablets by mouth twice daily. docusate sodium (COLACE) 100 mg capsule Take 1 capsule by mouth twice daily as needed for Constipation. REVIEW OF SYSTEMS: GENERAL: Negative for: Weight loss or gain, Fever or Chills, Weakness and Sleep difficulties. Physical Examination: BP 124/84 Pulse 84 Resp 16 Wt 213 lb (96.6kg) Extended Vitals not filed for this encounter. General appearance: Well appearing, alert, in no acute distress, well-hydrated, well nourished. Walking with walker. Skin: Skin color, texture, turgor normal, no suspicious rashes or lesions Ears: External ears normal, canals + cerumen bilateral, TM's normal Nose/Sinuses: Nares normal, septum midline, mucosa normal, no drainage or sinus tenderness Neck: Supple, no adenopathy; thyroid symmetric, normal size, no bruits Lungs: Lungs clear to auscultation. No wheezing, rhonchi, rales Heart: RRR without murmur, gallop, or rubs. No ectopy Abdomen: Abdomen soft, non-tender. Bowel sounds normal. No masses, organomegaly Extremities: No edema, skin discoloration, clubbing or cyanosis. Good capillary refill. Peripheral pulses: Normal Neuro: Gait normal. Sensation grossly intact. Reviewed chart, outside records, tests I personally interviewed, confirmed and edited the above information if obtained by others. TESTING: Glucose (mg/dL) Date Value 03/15/2017 252 Potassium (mmol/L) Date Value 03/15/2017 5.1 Sodium (mmol/L) Date Value 03/15/2017 133 Chloride (mmol/L) Date Value 03/15/2017 97 CO2 (mmol/L) Date Value 03/15/2017 24 Creatinine (mg/dL) Date Value 03/15/2017 2.64 BUN (mg/dL) Date Value 03/15/2017 38 Anion Gap (mmol/L) Date Value 03/15/2017 12 Calcium (mg/dL) Date Value 03/15/2017 9.0 Glucose (mg/dL) Date Value 03/15/2017 252 Potassium (mmol/L) Date Value 03/15/2017 5.1 Sodium (mmol/L) Date Value 03/15/2017 133 Chloride (mmol/L) Date Value 03/15/2017 97 CO2 (mmol/L) Date Value 03/15/2017 24 Creatinine (mg/dL) Date Value 03/15/2017 2.64 BUN (mg/dL) Date Value 03/15/2017 38 Anion Gap (mmol/L) Date Value 03/15/2017 12 Calcium (mg/dL) Date Value 03/15/2017 9.0 Protein, Total (g/dL) Date Value 03/15/2017 7.4 Albumin (g/dL) Date Value 03/15/2017 4.0 Bilirubin, Total (mg/dL) Date Value 03/15/2017 0.3 Alkaline Phosphatase (U/L) Date Value 03/15/2017 128 AST (U/L) Date Value 03/15/2017 34 ALT (U/L) Date Value 03/15/2017 29 Hemoglobin (g/dL) Date Value 09/07/2016 12.6 Hematocrit (%) Date Value 09/07/2016 40.4 WBC (k/uL) Date Value 09/07/2016 6.35 Cholesterol, Total (mg/dL) Date Value 03/15/2017 126 HDL Cholesterol (mg/dL) Date Value 03/15/2017 26 LDL Cholesterol (mg/dL) Date Value 03/15/2017 51 Triglyceride (mg/dL) Date Value 03/15/2017 245 Hemoglobin A1C Date Value Ref Range Status 03/15/2017 8.7 (H) 4.3 - 5.6 % Final Comment: [place] [employer] guidelines indicate that patients with HgbA1c in the range 5.7-6.4% are at increased risk for development of diabetes, and intervention by lifestyle modification may be beneficial. HgbA1c greater or equal to 6.5% is considered diagnostic of diabetes. 11/18/2016 8.8 (H) 4.3 - 5.6 % Final Comment: [place] [employer] guidelines indicate that patients with HgbA1c in the range 5.7-6.4% are at increased risk for development of diabetes, and intervention by lifestyle modification may be beneficial. HgbA1c greater or equal to 6.5% is considered diagnostic of diabetes. 08/09/2016 9.1 (H) 4.3 - 5.6 % Final Comment: [place] [employer] guidelines indicate that patients with HgbA1c in the range 5.7-6.4% are at increased risk for development of diabetes, and intervention by lifestyle modification may be beneficial. HgbA1c greater or equal to 6.5% is considered diagnostic of diabetes. 03/14/2016 9.5 (H) 4.3 - 5.6 % Final Comment: [place] [employer] guidelines indicate that patients with HgbA1c in the range 5.7-6.4% are at increased risk for development of diabetes, and intervention by lifestyle modification may be beneficial. HgbA1c greater or equal to 6.5% is considered diagnostic of diabetes. 10/27/2015 10.3 (H) 4.3 - 5.6 % Final Comment: [place] [employer] guidelines indicate that patients with HgbA1c in the range 5.7-6.4% are at increased risk for development of diabetes, and intervention by lifestyle modification may be beneficial. HgbA1c greater or equal to 6.5% is considered diagnostic of diabetes. Ejection Fraction - Result: 58 % Date: 03/30/2015 Time: 10:48:46 IMPRESSION: Mr. Morse is a 37 year old And [facility]. [facility] Initially [facility] at [facility] September 06 - September 22. Cystoscopy planned with Dr. Hodge. After my examination and review of data, I make the following recommendations. PLAN AND RECOMMENDATIONS: 1. Uncontrolled type 1 diabetes mellitus with stage 3 chronic kidney disease, with long-term current use of insulin ([facility]) - ICD9: 250.43, 585.3, ICD10: E10.22, E10.65, N18.3 (primary diagnosis) - HGB A1C - INSULIN LISPRO (U-100) 100 UNIT/ML SUBCUTANEOUS PEN - BASIC METABOLIC PNL 2. CKD (chronic kidney disease) stage 4, GFR 15-29 ml/min ([facility]) - ICD9: 585.4, ICD10: N18.4 - BASIC METABOLIC PNL 3. Hydronephrosis with ureteral stricture, not elsewhere classified - ICD9: 591, ICD10: N13.1 - BASIC METABOLIC PNL 4. Excessive cerumen in ear canal, bilateral - ICD9: 380.4, ICD10: H61.23 - CARBAMIDE PEROXIDE 6.5 % EAR DROPS 5. Acute respiratory failure with hypoxia ([facility]) - ICD9: 518.81, ICD10: J96.01 6. Bilateral hydronephrosis - ICD9: 591, ICD10: N13.30 - BASIC METABOLIC PNL 7. Acute kidney injury ([facility]) - ICD9: 584.9, ICD10: N17.9 - BASIC METABOLIC PNL 8. Severe sepsis with acute organ dysfunction due to Serratia species ([facility]) - ICD9: 038.44, 995.92, ICD10: A41.53, R65.20 - BASIC METABOLIC PNL 9. Urinary tract infection with hematuria, site unspecified - ICD9: 599.0, ICD10: N39.0, R31.9 - BASIC METABOLIC PNL 10. Pneumonia due to organism - ICD9: 486, ICD10: J18.9 - BASIC METABOLIC PNL Advised to go to ER if develops chest pain, shortness of breath, or severe worsening of symptoms. Discussed risks, benefits, alternatives, and potential side effects of medications. Mr. Morse expressed understanding and agreed with the plan. Georgi Lee APRN.PERSONNEL MONITOR ABDOMEN/PELVIS WITHOUT Observed: 10/26/2017 Status: F Source: GREG CONT 1:44 PM [facility] REPOSITORY [facility] Imaging Services [address] [place] [address] Abdomen/Pelvis without Cont MR#: [id number] Acct: [id number] Name: JARON MORSE Rep #: [id number] : 1980 M 37 From: Jin Daly MD PCP: Francine Clark MD Status: REG CLI Study: Abdomen/Pelvis without Cont Date of Exam: 10/26/17 Exam# [id number] Ordering Dr: Jose Juan Lopez MD STUDY: CT ABDOMEN AND PELVIS WITHOUT CONTRAST REASON FOR EXAM: Male, 37 years old. Hematuria. Stage III chronic kidney disease. RADIATION DOSAGE (If Supplied By Facility): CTDIvol = ( 13.07 ) mGy, DLP = ( 711.99 ) mGycm TECHNIQUE: Transaxial images were obtained from the dome of the diaphragm to the symphysis pubis without oral contrast, and without intravenous contrast. Sagittal and coronal images were reconstructed. Individualized dose optimization techniques were used for this CT. COMPARISON: Comparison is made with prior study dated June 06, 2017. FINDINGS: The visualized lung bases are unremarkable. The visualized portions of the heart are within normal limits. Normal liver. The gallbladder is contracted. Normal spleen. Normal pancreas. Normal bilateral adrenal glands. Once again, there is a cortical thinning involving both kidneys with the numerous cortical calcifications. This is basically unchanged. This is in keeping with the patient's history of chronic renal disease. There is a small hiatal hernia. Normal small intestine. A large amount of fecal material is seen in the colon. There are surgical clips in the region of the appendix consistent with a prior appendectomy. Normal abdominal aorta. Normal inferior vena cava. Normal retroperitoneum. A suprapubic catheter is seen. The urinary bladder is empty. There is thinning of the anterior abdominal wall. Normal osseous structures. CT/Abdomen/Pelvis without Cont IMPRESSION: Bilateral renal atrophy with diffuse cortical thickening. Suprapubic catheter within the bladder. The bladder is empty. Fecal material is seen throughout the colon. Electronically Signed: Jin Daly MD at 14:47 EDT Tel [phone], Service support , CC: Jose Juan Lopez MD; Francine Clark MD Cryogenic Transport Driver: Signed CT OUTSIDE CD DICOM Observed: 10/26/2017 Status: F [facility] REPOSITORY Images were obtained outside of [facility] [id number] CBC Collected: 09/22/2017 Status: F Source: [facility] 5:24 AM [facility] REPOSITORY TYPE CODE TESTS RESULT OUT OF REFERENCE UNITS RANGE LAB WBC(LOINC) 4.50-10.80 10 3/mcL WBC 6.10 LAB RBCCT(LOINC 4.50-6.00 10 6/mcL ) Low RBC 3.26 LAB HGB(LOINC) 13.0-17.5 G/dL Low Hgb 10.2 LAB HCT(LOINC) 40.0-52.0 % Low Hct 30.7 LAB MCV(LOINC) 81.0-100.0 fL MCV 94.0 LAB MCH(LOINC) 27.0-33.0 pg MCH 31.4 LAB MCHC(LOINC) 32.0-36.0 G/dL MCHC 33.4 LAB RDW(LOINC) 11.5-15.5 % High RDW 19.7 LAB PLT(LOINC) 150-450 10 3/mcL Platelet 445 LAB MPV(LOINC) 6.4-10.5 fL MPV 8.9 Performed By: #### GFR, ANEU, ADIFF, CBC, BMP #### [place] [address] .AUTO DIFF Collected: 09/22/2017 Status: F Source: [facility] 5:24 AM [facility] REPOSITORY TYPE CODE TESTS RESULT OUT OF REFERENCE UNITS RANGE LAB JUAN A(LOINC) 50.0-75.0 % Neutrophil % 56.6 LAB LYM(LOINC) 20.0-40.0 % Lymphocyte % 28.1 LAB MON(LOINC) 2.0-13.0 % Monocyte % 11.5 LAB EO(LOINC) 0.0-6.0 % Eosinophil % 2.8 LAB BAS(LOINC) 0.0-2.5 % Basophil % 1.0 LAB ABLYM(LOIN 0.90-4.32 10 3/mcL C) Lymphocyte, 1.70 Absolute LAB ALESSANDRA(LOINC 0.09-1.40 10 3/mcL ) Monocyte, 0.70 Absolute LAB AEOS(LOINC 0.00-0.65 10 3/mcL ) Eosinophil, 0.20 Absolute LAB ABAS(LOINC 0.00-0.27 10 3/mcL ) Basophil, 0.10 Absolute Performed By: #### GFR, ANEU, ADIFF, CBC, BMP #### [place] [address] .NEUABS Collected: 09/22/2017 Status: F Source: [facility] 5:24 AM [facility] REPOSITORY TYPE CODE TESTS RESULT OUT OF REFERENCE UNITS RANGE LAB ANEU(LOINC) 2.25-8.10 10 3/mcL Neutrophil, 3.40 Absolute Performed By: #### GFR, ANEU, ADIFF, CBC, BMP #### [place] [address] BMP Collected: 09/22/2017 Status: F Source: [facility] 5:24 AM [facility] REPOSITORY TYPE CODE TESTS RESULT OUT OF REFERENCE UNITS RANGE LAB GLU(LOINC) 70-110 mg/dL Glucose High Level 294 LAB NA(LOINC) 136-145 mEq/L Sodium Level 139 LAB K(LOINC) 3.5-5.0 mEq/L Potassium Level 4.6 LAB CL(LOINC) 98-110 mEq/L Chloride 102 LAB CO2(LOINC) 22-32 mEq/L CO2 26 LAB EBAL(LOINC 4.0-15.0 mEq/L ) Electrolyte Balance 11.0 LAB BUN(LOINC) 8.0-22.0 mg/dL BUN High 52.0 LAB CRE(LOINC) 0.60-1.40 mg/dL Creatinine High Lvl (s) 4.62 LAB BC(LOINC) 10.0-22.0 ratio BUN/Creatinine 11.3 Ratio LAB CA(LOINC) 8.4-10.1 mg/dL Low Calcium Lvl 8.3 Performed By: #### GFR, ANEU, ADIFF, CBC, BMP #### [place] [address] .GFR Collected: 09/22/2017 Status: F Source: [facility] 5:24 AM [facility] REPOSITORY TYPE CODE TESTS RESULT OUT OF REFERENCE UNITS RANGE LAB GFRAA(LOINC ml/min/1.73 ) sqm GFR 18 [place] Result Comment: GFR Population mean for , Non- Americans Ages 20-29 = 116 mL/min/1.73 sq.m. Ages 30-39 = 107 mL/min/1.73 sq.m. Ages 40-49 = 99 mL/min/1.73 sq.m. Ages 50-59 = 93 mL/min/1.73 sq.m. Ages 60-69 = 85 mL/min/1.73 sq.m. Ages 70+ = 75 mL/min/1.73 sq.m. Chronic Kidney Disease: Less than 60 mL/min/1.73 square meters End Stage Renal Disease: Less than 15 mL/min/1.73 square meters LAB GFRNO(LOINC) ml/min/1.73sqm GFR Non- 15 Result Comment: GFR Population mean for , Non- Americans Ages 20-29 = 116 mL/min/1.73 sq.m. Ages 30-39 = 107 mL/min/1.73 sq.m. Ages 40-49 = 99 mL/min/1.73 sq.m. Ages 50-59 = 93 mL/min/1.73 sq.m. Ages 60-69 = 85 mL/min/1.73 sq.m. Ages 70+ = 75 mL/min/1.73 sq.m. Chronic Kidney Disease: Less than 60 mL/min/1.73 square meters End Stage Renal Disease: Less than 15 mL/min/1.73 square meters Performed By: #### GFR, ANEU, ADIFF, CBC, BMP #### [address] [address] CBC Collected: 09/21/2017 Status: F Source: [facility] 5:51 AM [facility] TYPE CODE TESTS RESULT OUT OF REFERENCE UNITS RANGE LAB WBC(LOINC) 4.50-10.80 10 3/mcL WBC 6.30 LAB RBCCT(LOINC 4.50-6.00 10 6/mcL ) Low RBC 3.20 LAB HGB(LOINC) 13.0-17.5 G/dL Low Hgb 10.1 LAB HCT(LOINC) 40.0-52.0 % Low Hct 29.6 LAB MCV(LOINC) 81.0-100.0 fL MCV 92.6 LAB MCH(LOINC) 27.0-33.0 pg MCH 31.6 LAB MCHC(LOINC) 32.0-36.0 G/dL MCHC 34.1 LAB RDW(LOINC) 11.5-15.5 % High RDW 19.7 LAB PLT(LOINC) 150-450 10 3/mcL Platelet 447 LAB MPV(LOINC) 6.4-10.5 fL MPV 9.1 Performed By: #### BMP, CBC, GFR, ANEU, ADIFF #### [address] [address] .AUTO DIFF Collected: 09/21/2017 Status: F Source: [facility] 5:51 AM [facility] REPOSITORY TYPE CODE TESTS RESULT OUT OF REFERENCE UNITS RANGE LAB JUAN A(LOINC) 50.0-75.0 % Neutrophil % 65.8 LAB LYM(LOINC) 20.0-40.0 % Low Lymphocyte % 19.8 LAB MON(LOINC) 2.0-13.0 % Monocyte % 10.4 LAB EO(LOINC) 0.0-6.0 % Eosinophil % 2.8 LAB BAS(LOINC) 0.0-2.5 % Basophil % 1.2 LAB ABLYM(LOIN 0.90-4.32 10 3/mcL C) Lymphocyte, 1.20 Absolute LAB ALESSANDRA(LOINC 0.09-1.40 10 3/mcL ) Monocyte, 0.70 Absolute LAB AEOS(LOINC 0.00-0.65 10 3/mcL ) Eosinophil, 0.20 Absolute LAB ABAS(LOINC 0.00-0.27 10 3/mcL ) Basophil, 0.10 Absolute Performed By: #### BMP, CBC, GFR, ANEU, ADIFF #### [address] [address] .NEUABS Collected: 09/21/2017 Status: F Source: [facility] 5:51 AM [facility] REPOSITORY TYPE CODE TESTS RESULT OUT OF REFERENCE UNITS RANGE LAB ANEU(LOINC) 2.25-8.10 10 3/mcL Neutrophil, 4.10 Absolute Performed By: #### BMP, CBC, GFR, ANEU, ADIFF #### [address] [address] BMP Collected: 09/21/2017 Status: F Source: [facility] 5:51 AM [facility] REPOSITORY TYPE CODE TESTS RESULT OUT OF REFERENCE UNITS RANGE LAB GLU(LOINC) 70-110 mg/dL Glucose High Level 289 LAB NA(LOINC) 136-145 mEq/L Sodium Level 138 LAB K(LOINC) 3.5-5.0 mEq/L Potassium Level 4.7 LAB CL(LOINC) 98-110 mEq/L Chloride 101 LAB CO2(LOINC) 22-32 mEq/L CO2 24 LAB EBAL(LOINC 4.0-15.0 mEq/L ) Electrolyte Balance 13.0 LAB BUN(LOINC) 8.0-22.0 mg/dL BUN High 58.0 LAB CRE(LOINC) 0.60-1.40 mg/dL Creatinine High Lvl (s) 4.79 LAB BC(LOINC) 10.0-22.0 ratio BUN/Creatinine 12.1 Ratio LAB CA(LOINC) 8.4-10.1 mg/dL Calcium Lvl 8.7 Performed By: #### BMP, CBC, GFR, ANEU, ADIFF #### [facility] [address] [place] [address] .GFR Collected: 09/21/2017 Status: F Source: [facility] 5:51 AM [facility] REPOSITORY TYPE CODE TESTS RESULT OUT OF REFERENCE UNITS RANGE LAB GFRAA(LOINC ml/min/1.73 ) sqm GFR 17 [place] Result Comment: GFR Population mean for , Non- Americans Ages 20-29 = 116 mL/min/1.73 sq.m. Ages 30-39 = 107 mL/min/1.73 sq.m. Ages 40-49 = 99 mL/min/1.73 sq.m. Ages 50-59 = 93 mL/min/1.73 sq.m. Ages 60-69 = 85 mL/min/1.73 sq.m. Ages 70+ = 75 mL/min/1.73 sq.m. Chronic Kidney Disease: Less than 60 mL/min/1.73 square meters End Stage Renal Disease: Less than 15 mL/min/1.73 square meters LAB GFRNO(LOINC) ml/min/1.73sqm GFR Non- 14 Result Comment: GFR Population mean for , Non- Americans Ages 20-29 = 116 mL/min/1.73 sq.m. Ages 30-39 = 107 mL/min/1.73 sq.m. Ages 40-49 = 99 mL/min/1.73 sq.m. Ages 50-59 = 93 mL/min/1.73 sq.m. Ages 60-69 = 85 mL/min/1.73 sq.m. Ages 70+ = 75 mL/min/1.73 sq.m. Chronic Kidney Disease: Less than 60 mL/min/1.73 square meters End Stage Renal Disease: Less than 15 mL/min/1.73 square meters Performed By: #### BMP, CBC, GFR, ANEU, ADIFF #### [address] [address] CBC Collected: 09/20/2017 Status: F Source: [facility] 6:08 [facility] REPOSITORY TYPE CODE TESTS RESULT OUT OF REFERENCE UNITS RANGE LAB WBC(LOINC) 4.50-10.80 10 3/mcL WBC 8.90 LAB RBCCT(LOINC 4.50-6.00 10 6/mcL ) Low RBC 3.24 LAB HGB(LOINC) 13.0-17.5 G/dL Low Hgb 10.2 LAB HCT(LOINC) 40.0-52.0 % Low Hct 29.9 LAB MCV(LOINC) 81.0-100.0 fL MCV 92.3 LAB MCH(LOINC) 27.0-33.0 pg MCH 31.5 LAB MCHC(LOINC) 32.0-36.0 G/dL MCHC 34.1 LAB RDW(LOINC) 11.5-15.5 % High RDW 19.1 LAB PLT(LOINC) 150-450 10 3/mcL High Platelet 451 LAB MPV(LOINC) 6.4-10.5 fL MPV 9.6 Performed By: #### ADIFF, GFR, ANEU, CBC, BMP #### [address] [address] .AUTO DIFF Collected: 09/20/2017 Status: F Source: [facility] 6:08 [facility] REPOSITORY TYPE CODE TESTS RESULT OUT OF REFERENCE UNITS RANGE LAB JUAN A(LOINC) 50.0-75.0 % Neutrophil % 70.2 LAB LYM(LOINC) 20.0-40.0 % Low Lymphocyte % 15.7 LAB MON(LOINC) 2.0-13.0 % Monocyte % 10.9 LAB EO(LOINC) 0.0-6.0 % Eosinophil % 2.2 LAB BAS(LOINC) 0.0-2.5 % Basophil % 1.0 LAB ABLYM(LOIN 0.90-4.32 10 3/mcL C) Lymphocyte, 1.40 Absolute LAB ALESSANDRA(LOINC 0.09-1.40 10 3/mcL ) Monocyte, 1.00 Absolute LAB AEOS(LOINC 0.00-0.65 10 3/mcL ) Eosinophil, 0.20 Absolute LAB ABAS(LOINC 0.00-0.27 10 3/mcL ) Basophil, 0.10 Absolute Performed By: #### ADIFF, GFR, ANEU, CBC, BMP #### [place] [address] .NEUABS Collected: 09/20/2017 Status: F Source: [facility] 6:08 AM [facility] REPOSITORY TYPE CODE TESTS RESULT OUT OF REFERENCE UNITS RANGE LAB ANEU(LOINC) 2.25-8.10 10 3/mcL Neutrophil, 6.20 Absolute Performed By: #### ADIFF, GFR, ANEU, CBC, BMP #### [place] [address] BMP Collected: 09/20/2017 Status: F Source: [facility] 6:08 [facility] REPOSITORY TYPE CODE TESTS RESULT OUT OF REFERENCE UNITS RANGE LAB GLU(LOINC) 70-110 mg/dL Glucose High Level 292 LAB NA(LOINC) 136-145 mEq/L Sodium Level 136 LAB K(LOINC) 3.5-5.0 mEq/L Potassium High Level 5.7 LAB CL(LOINC) 98-110 mEq/L Chloride 100 LAB CO2(LOINC) 22-32 mEq/L CO2 24 LAB EBAL(LOINC 4.0-15.0 mEq/L ) Electrolyte Balance 12.0 LAB BUN(LOINC) 8.0-22.0 mg/dL BUN High 58.0 LAB CRE(LOINC) 0.60-1.40 mg/dL Creatinine High Lvl (s) 4.77 LAB BC(LOINC) 10.0-22.0 ratio BUN/Creatinine 12.2 Ratio LAB CA(LOINC) 8.4-10.1 mg/dL Calcium Lvl 8.9 Performed By: #### REED, GFR, ANEU, CBC, BMP #### [address] [address] .GFR Collected: 09/20/2017 Status: F Source: [facility] 6:08 AM [facility] REPOSITORY TYPE CODE TESTS RESULT OUT OF REFERENCE UNITS RANGE LAB GFRAA(LOINC ml/min/1.73 ) sqm GFR 17 [place] Result Comment: GFR Population mean for , Non- Americans Ages 20-29 = 116 mL/min/1.73 sq.m. Ages 30-39 = 107 mL/min/1.73 sq.m. Ages 40-49 = 99 mL/min/1.73 sq.m. Ages 50-59 = 93 mL/min/1.73 sq.m. Ages 60-69 = 85 mL/min/1.73 sq.m. Ages 70+ = 75 mL/min/1.73 sq.m. Chronic Kidney Disease: Less than 60 mL/min/1.73 square meters End Stage Renal Disease: Less than 15 mL/min/1.73 square meters LAB GFRNO(LOINC) ml/min/1.73sqm GFR Non- 14 Result Comment: GFR Population mean for , Non- Americans Ages 20-29 = 116 mL/min/1.73 sq.m. Ages 30-39 = 107 mL/min/1.73 sq.m. Ages 40-49 = 99 mL/min/1.73 sq.m. Ages 50-59 = 93 mL/min/1.73 sq.m. Ages 60-69 = 85 mL/min/1.73 sq.m. Ages 70+ = 75 mL/min/1.73 sq.m. Chronic Kidney Disease: Less than 60 mL/min/1.73 square meters End Stage Renal Disease: Less than 15 mL/min/1.73 square meters Performed By: #### REED, GFR, ANEU, CBC, BMP #### [address] [address] CBC Collected: 09/19/2017 Status: F Source: [facility] 5:37 AM [facility] REPOSITORY TYPE CODE TESTS RESULT OUT OF REFERENCE UNITS RANGE LAB WBC(LOINC) 4.50-10.80 10 3/mcL WBC 9.60 LAB RBCCT(LOINC 4.50-6.00 10 6/mcL ) Low RBC 3.18 LAB HGB(LOINC) 13.0-17.5 G/dL Low Hgb 9.7 LAB HCT(LOINC) 40.0-52.0 % Low Hct 29.6 LAB MCV(LOINC) 81.0-100.0 fL MCV 93.2 LAB MCH(LOINC) 27.0-33.0 pg MCH 30.4 LAB MCHC(LOINC) 32.0-36.0 G/dL MCHC 32.6 LAB RDW(LOINC) 11.5-15.5 % High RDW 18.9 LAB PLT(LOINC) 150-450 10 3/mcL High Platelet 454 LAB MPV(LOINC) 6.4-10.5 fL MPV 10.0 Performed By: #### ANEU, ADIFF, CBC, GFR, BMP #### [address] [address] .AUTO DIFF Collected: 09/19/2017 Status: F Source: [facility] 5:37 AM [facility] REPOSITORY TYPE CODE TESTS RESULT OUT OF REFERENCE UNITS RANGE LAB JUAN A(LOINC) 50.0-75.0 % Neutrophil % 74.3 LAB LYM(LOINC) 20.0-40.0 % Low Lymphocyte % 14.4 LAB MON(LOINC) 2.0-13.0 % Monocyte % 8.5 LAB EO(LOINC) 0.0-6.0 % Eosinophil % 2.1 LAB BAS(LOINC) 0.0-2.5 % Basophil % 0.7 LAB ABLYM(LOIN 0.90-4.32 10 3/mcL C) Lymphocyte, 1.40 Absolute LAB ALESSANDRA(LOINC 0.09-1.40 10 3/mcL ) Monocyte, 0.80 Absolute LAB AEOS(LOINC 0.00-0.65 10 3/mcL ) Eosinophil, 0.20 Absolute LAB ABAS(LOINC 0.00-0.27 10 3/mcL ) Basophil, 0.10 Absolute Performed By: #### ANEU, ADIFF, CBC, GFR, BMP #### [address] [address] .NEUABS Collected: 09/19/2017 Status: F Source: [facility] 5:37 AM [facility] REPOSITORY TYPE CODE TESTS RESULT OUT OF REFERENCE UNITS RANGE LAB ANEU(LOINC) 2.25-8.10 10 3/mcL Neutrophil, 7.20 Absolute Performed By: #### ANEU, ADIFF, CBC, GFR, BMP #### [address] [address] .GFR Collected: 09/19/2017 Status: F Source: [facility] 5:37 AM [facility] REPOSITORY TYPE CODE TESTS RESULT OUT OF REFERENCE UNITS RANGE LAB GFRAA(LOINC ml/min/1.73 ) sqm GFR 18 [place] Result Comment: GFR Population mean for , Non- Americans Ages 20-29 = 116 mL/min/1.73 sq.m. Ages 30-39 = 107 mL/min/1.73 sq.m. Ages 40-49 = 99 mL/min/1.73 sq.m. Ages 50-59 = 93 mL/min/1.73 sq.m. Ages 60-69 = 85 mL/min/1.73 sq.m. Ages 70+ = 75 mL/min/1.73 sq.m. Chronic Kidney Disease: Less than 60 mL/min/1.73 square meters End Stage Renal Disease: Less than 15 mL/min/1.73 square meters LAB GFRNO(LOINC) ml/min/1.73sqm GFR Non- 15 Result Comment: GFR Population mean for , Non- Americans Ages 20-29 = 116 mL/min/1.73 sq.m. Ages 30-39 = 107 mL/min/1.73 sq.m. Ages 40-49 = 99 mL/min/1.73 sq.m. Ages 50-59 = 93 mL/min/1.73 sq.m. Ages 60-69 = 85 mL/min/1.73 sq.m. Ages 70+ = 75 mL/min/1.73 sq.m. Chronic Kidney Disease: Less than 60 mL/min/1.73 square meters End Stage Renal Disease: Less than 15 mL/min/1.73 square meters Performed By: #### ANEU, ADIFF, CBC, GFR, BMP #### [address] [address] BMP Collected: 09/19/2017 Status: F Source: [facility] 5:37 AM [facility] REPOSITORY TYPE CODE TESTS RESULT OUT OF REFERENCE UNITS RANGE LAB GLU(LOINC) 70-110 mg/dL High Glucose Level 185 LAB NA(LOINC) 136-145 mEq/L Sodium Level 139 LAB K(LOINC) 3.5-5.0 mEq/L High Potassium Level 5.5 Result Comment: Specimen slightly hemolyzed. Results may be falsely elevated. LAB CL(LOINC) 98-110 mEq/L Chloride 101 LAB CO2(LOINC) 22-32 mEq/L CO2 27 LAB EBAL(LOINC) 4.0-15.0 mEq/L Electrolyte Balance 11.0 LAB BUN(LOINC) 8.0-22.0 mg/dL BUN High 56.0 LAB CRE(LOINC) 0.60-1.40 mg/dL Creatinine High Lvl (s) 4.54 LAB BC(LOINC) 10.0-22.0 ratio BUN/Creatinine Ratio 12.3 LAB CA(LOINC) 8.4-10.1 mg/dL Calcium Lvl 9.4 Performed By: #### ANEU, ADIFF, CBC, GFR, BMP #### [place] [address] CBC Collected: 09/17/2017 Status: F Source: [facility] 6:07 AM [facility] REPOSITORY TYPE CODE TESTS RESULT OUT OF REFERENCE UNITS RANGE LAB WBC(LOINC) 4.50-10.80 10 3/mcL High WBC 11.30 LAB RBCCT(LOINC 4.50-6.00 10 6/mcL ) Low RBC 3.05 LAB HGB(LOINC) 13.0-17.5 G/dL Low Hgb 9.1 LAB HCT(LOINC) 40.0-52.0 % Low Hct 28.4 LAB MCV(LOINC) 81.0-100.0 fL MCV 93.3 LAB MCH(LOINC) 27.0-33.0 pg MCH 30.0 LAB MCHC(LOINC) 32.0-36.0 G/dL MCHC 32.1 LAB RDW(LOINC) 11.5-15.5 % High RDW 18.9 LAB PLT(LOINC) 150-450 10 3/mcL Platelet 354 LAB MPV(LOINC) 6.4-10.5 fL MPV 9.2 Performed By: #### RFP, GFR, ANEU, BMP, ADIFF, CBC #### [place] [address] .AUTO DIFF Collected: 09/17/2017 Status: F Source: [facility] 6:07 AM [facility] REPOSITORY TYPE CODE TESTS RESULT OUT OF REFERENCE UNITS RANGE LAB JUAN A(LOINC) 50.0-75.0 % High Neutrophil % 75.4 LAB LYM(LOINC) 20.0-40.0 % Low Lymphocyte % 14.7 LAB MON(LOINC) 2.0-13.0 % Monocyte % 7.1 LAB EO(LOINC) 0.0-6.0 % Eosinophil % 2.0 LAB BAS(LOINC) 0.0-2.5 % Basophil % 0.8 LAB ABLYM(LOIN 0.90-4.32 10 3/mcL C) Lymphocyte, 1.70 Absolute LAB ALESSANDRA(LOINC 0.09-1.40 10 3/mcL ) Monocyte, 0.80 Absolute LAB AEOS(LOINC 0.00-0.65 10 3/mcL ) Eosinophil, 0.20 Absolute LAB ABAS(LOINC 0.00-0.27 10 3/mcL ) Basophil, 0.10 Absolute Performed By: #### RFP, GFR, ANEU, BMP, ADIFF, CBC #### [place] [address] .NEUABS Collected: 09/17/2017 Status: F Source: [facility] 6:07 AM [facility] REPOSITORY TYPE CODE TESTS RESULT OUT OF REFERENCE UNITS RANGE LAB ANEU(LOINC) 2.25-8.10 10 3/mcL High Neutrophil, 8.60 Absolute Performed By: #### RFP, GFR, ANEU, BMP, ADIFF, CBC #### [place] [address] BMP Collected: 09/17/2017 Status: F Source: [facility] 6:07 AM [facility] REPOSITORY TYPE CODE TESTS RESULT OUT OF REFERENCE UNITS RANGE LAB GLU(LOINC) 70-110 mg/dL Glucose Level 85 LAB NA(LOINC) 136-145 mEq/L Sodium Level 145 LAB K(LOINC) 3.5-5.0 mEq/L Potassium Level 4.6 LAB CL(LOINC) 98-110 mEq/L Chloride 107 LAB CO2(LOINC) 22-32 mEq/L CO2 28 LAB EBAL(LOINC 4.0-15.0 mEq/L ) Electrolyte Balance 10.0 LAB BUN(LOINC) 8.0-22.0 mg/dL BUN High 55.0 LAB CRE(LOINC) 0.60-1.40 mg/dL Creatinine High Lvl (s) 4.35 LAB BC(LOINC) 10.0-22.0 ratio BUN/Creatinine 12.6 Ratio LAB CA(LOINC) 8.4-10.1 mg/dL Calcium Lvl 8.6 Performed By: #### RFP, GFR, ANEU, BMP, ADIFF, CBC #### [place] [address] .GFR Collected: 09/17/2017 Status: F Source: [facility] 6:07 AM [facility]POS[facility] TYPE CODE TESTS RESULT OUT OF REFERENCE UNITS RANGE LAB GFRAA(LOINC ml/min/1.73 ) sqm GFR 19 [place] Result Comment: GFR Population mean for , Non- Americans Ages 20-29 = 116 mL/min/1.73 sq.m. Ages 30-39 = 107 mL/min/1.73 sq.m. Ages 40-49 = 99 mL/min/1.73 sq.m. Ages 50-59 = 93 mL/min/1.73 sq.m. Ages 60-69 = 85 mL/min/1.73 sq.m. Ages 70+ = 75 mL/min/1.73 sq.m. Chronic Kidney Disease: Less than 60 mL/min/1.73 square meters End Stage Renal Disease: Less than 15 mL/min/1.73 square meters LAB GFRNO(LOINC) ml/min/1.73sqm GFR Non- 16 Result Comment: GFR Population mean for , Non- Americans Ages 20-29 = 116 mL/min/1.73 sq.m. Ages 30-39 = 107 mL/min/1.73 sq.m. Ages 40-49 = 99 mL/min/1.73 sq.m. Ages 50-59 = 93 mL/min/1.73 sq.m. Ages 60-69 = 85 mL/min/1.73 sq.m. Ages 70+ = 75 mL/min/1.73 sq.m. Chronic Kidney Disease: Less than 60 mL/min/1.73 square meters End Stage Renal Disease: Less than 15 mL/min/1.73 square meters Performed By: #### RFP, GFR, ANEU, BMP, ADIFF, CBC #### [address] [address] RFP Collected: 09/17/2017 Status: F Source: [facility] 6:07 AM [facility] REPOSITORY TYPE CODE TESTS RESULT OUT OF REFERENCE UNITS RANGE LAB GLU(LOINC) 70-110 mg/dL Glucose Level 85 LAB NA(LOINC) 136-145 mEq/L Sodium Level 145 LAB K(LOINC) 3.5-5.0 mEq/L Potassium Level 4.6 LAB CL(LOINC) 98-110 mEq/L Chloride 107 LAB CO2(LOINC) 22-32 mEq/L CO2 28 LAB EBAL(LOINC 4.0-15.0 mEq/L ) Electrolyte Balance 10.0 LAB BUN(LOINC) 8.0-22.0 mg/dL BUN High 55.0 LAB CRE(LOINC) 0.60-1.40 mg/dL Creatinine High Lvl (s) 4.35 LAB BC(LOINC) 10.0-22.0 ratio BUN/Creatinine 12.6 Ratio LAB CA(LOINC) 8.4-10.1 mg/dL Calcium Lvl 8.6 LAB PHOS(LOINC 2.5-4.5 mg/dL ) Phosphorus High 5.1 LAB ALB(LOINC) 3.2-4.8 G/dL Low Albumin Level 2.0 Performed By: #### RFP, GFR, ANEU, BMP, ADIFF, CBC #### [address] [address] CBC Collected: 09/16/2017 Status: F Source: [facility] 7:06 AM [facility] REPOSITORY TYPE CODE TESTS RESULT OUT OF REFERENCE UNITS RANGE LAB WBC(LOINC) 4.50-10.80 10 3/mcL High WBC 11.00 LAB RBCCT(LOINC 4.50-6.00 10 6/mcL ) Low RBC 2.98 LAB HGB(LOINC) 13.0-17.5 G/dL Low Hgb 9.0 LAB HCT(LOINC) 40.0-52.0 % Low Hct 27.4 LAB MCV(LOINC) 81.0-100.0 fL MCV 92.0 LAB MCH(LOINC) 27.0-33.0 pg MCH 30.2 LAB MCHC(LOINC) 32.0-36.0 G/dL MCHC 32.8 LAB RDW(LOINC) 11.5-15.5 % High RDW 18.7 LAB PLT(LOINC) 150-450 10 3/mcL Platelet 314 LAB MPV(LOINC) 6.4-10.5 fL MPV 9.4 Performed By: #### ANEU, BMP, HFP, LIP, CBC, ADIFF, RFP, GFR #### [address] [address] .AUTO DIFF Collected: 09/16/2017 Status: F Source: [facility] 7:06 AM [facility] REPOSITORY TYPE CODE TESTS RESULT OUT OF REFERENCE UNITS RANGE LAB JUAN A(LOINC) 50.0-75.0 % Neutrophil % 74.3 LAB LYM(LOINC) 20.0-40.0 % Low Lymphocyte % 15.3 LAB MON(LOINC) 2.0-13.0 % Monocyte % 8.2 LAB EO(LOINC) 0.0-6.0 % Eosinophil % 1.8 LAB BAS(LOINC) 0.0-2.5 % Basophil % 0.4 LAB ABLYM(LOIN 0.90-4.32 10 3/mcL C) Lymphocyte, 1.70 Absolute LAB ALESSANDRA(LOINC 0.09-1.40 10 3/mcL ) Monocyte, 0.90 Absolute LAB AEOS(LOINC 0.00-0.65 10 3/mcL ) Eosinophil, 0.20 Absolute LAB ABAS(LOINC 0.00-0.27 10 3/mcL ) Basophil, 0.00 Absolute Performed By: #### ANEU, BMP, HFP, LIP, CBC, ADIFF, RFP, GFR #### [address] [address] .NEUABS Collected: 09/16/2017 Status: F Source: [facility] 7:06 [facility] REPOSITORY TYPE CODE TESTS RESULT OUT OF REFERENCE UNITS RANGE LAB ANEU(LOINC) 2.25-8.10 10 3/mcL High Neutrophil, 8.20 Absolute Performed By: #### ANEU, BMP, HFP, LIP, CBC, ADIFF, RFP, GFR #### [place] [address] BMP Collected: 09/16/2017 Status: F Source: [facility] 7:06 AM [facility] REPOSITORY TYPE CODE TESTS RESULT OUT OF REFERENCE UNITS RANGE LAB GLU(LOINC) 70-110 mg/dL Glucose High Level 156 LAB NA(LOINC) 136-145 mEq/L Sodium High Level 146 LAB K(LOINC) 3.5-5.0 mEq/L Potassium Level 4.4 LAB CL(LOINC) 98-110 mEq/L Chloride 108 LAB CO2(LOINC) 22-32 mEq/L CO2 31 LAB EBAL(LOINC 4.0-15.0 mEq/L ) Electrolyte Balance 7.0 LAB BUN(LOINC) 8.0-22.0 mg/dL BUN High 56.0 LAB CRE(LOINC) 0.60-1.40 mg/dL Creatinine High Lvl (s) 4.57 LAB BC(LOINC) 10.0-22.0 ratio BUN/Creatinine 12.3 Ratio LAB CA(LOINC) 8.4-10.1 mg/dL Calcium Lvl 8.6 Performed By: #### ANEU, BMP, HFP, LIP, CBC, ADIFF, RFP, GFR #### [place] [address] LIP Collected: 09/16/2017 Status: F Source: [facility] 7:06 AM [facility] REPOSITORY TYPE CODE TESTS RESULT OUT OF REFERENCE UNITS RANGE LAB LIP(LOINC) 73-393 U/L Lipase Level 245 Performed By: #### ANEU, BMP, HFP, LIP, CBC, ADIFF, RFP, GFR #### [place] [address] .GFR Collected: 09/16/2017 Status: F Source: [facility] 7:06 AM [facility] REPOSITORY TYPE CODE TESTS RESULT OUT OF REFERENCE UNITS RANGE LAB GFRAA(LOINC ml/min/1.73 ) sqm GFR 18 [place] Result Comment: GFR Population mean for , Non- Americans Ages 20-29 = 116 mL/min/1.73 sq.m. Ages 30-39 = 107 mL/min/1.73 sq.m. Ages 40-49 = 99 mL/min/1.73 sq.m. Ages 50-59 = 93 mL/min/1.73 sq.m. Ages 60-69 = 85 mL/min/1.73 sq.m. Ages 70+ = 75 mL/min/1.73 sq.m. Chronic Kidney Disease: Less than 60 mL/min/1.73 square meters End Stage Renal Disease: Less than 15 mL/min/1.73 square meters LAB GFRNO(LOINC) ml/min/1.73sqm GFR Non- 15 Result Comment: GFR Population mean for , Non- Americans Ages 20-29 = 116 mL/min/1.73 sq.m. Ages 30-39 = 107 mL/min/1.73 sq.m. Ages 40-49 = 99 mL/min/1.73 sq.m. Ages 50-59 = 93 mL/min/1.73 sq.m. Ages 60-69 = 85 mL/min/1.73 sq.m. Ages 70+ = 75 mL/min/1.73 sq.m. Chronic Kidney Disease: Less than 60 mL/min/1.73 square meters End Stage Renal Disease: Less than 15 mL/min/1.73 square meters Performed By: #### ANEU, BMP, HFP, LIP, CBC, ADIFF, RFP, GFR #### [place] [address] RFP Collected: 09/16/2017 Status: F Source: [facility] 7:06 AM [facility] TYPE CODE TESTS RESULT OUT OF REFERENCE UNITS RANGE LAB GLU(LOINC) 70-110 mg/dL Glucose High Level 156 LAB NA(LOINC) 136-145 mEq/L Sodium High Level 146 LAB K(LOINC) 3.5-5.0 mEq/L Potassium Level 4.4 LAB CL(LOINC) 98-110 mEq/L Chloride 108 LAB CO2(LOINC) 22-32 mEq/L CO2 31 LAB EBAL(LOINC 4.0-15.0 mEq/L ) Electrolyte Balance 7.0 LAB BUN(LOINC) 8.0-22.0 mg/dL BUN High 56.0 LAB CRE(LOINC) 0.60-1.40 mg/dL Creatinine High Lvl (s) 4.57 LAB BC(LOINC) 10.0-22.0 ratio BUN/Creatinine 12.3 Ratio LAB CA(LOINC) 8.4-10.1 mg/dL Calcium Lvl 8.6 LAB PHOS(LOINC 2.5-4.5 mg/dL ) Phosphorus High 5.2 LAB ALB(LOINC) 3.2-4.8 G/dL Low Albumin Level 1.9 Performed By: #### ANEU, BMP, HFP, LIP, CBC, ADIFF, RFP, GFR #### [address] [address] HFP Collected: 09/16/2017 Status: F Source: [facility] 7:06 AM [facility] REPOSITORY TYPE CODE TESTS RESULT OUT OF REFERENCE UNITS RANGE LAB PROT(LOINC) 6.0-8.5 G/dL Total Protein 6.8 LAB ALB(LOINC) 3.2-4.8 G/dL Low Albumin Level 1.9 LAB GLB(LOINC) 1.5-3.8 G/dL High Globulin 4.9 LAB AG(LOINC) 0.9-1.6 ratio Low A/G Ratio 0.4 LAB BILT(LOINC) 0.2-1.2 mg/dL Bili Total 0.3 LAB BILAD(LOINC 0.0-0.4 mg/dL ) Bili Direct 0.2 LAB BILI(LOINC) 0.1-10.0 mg/dL Bili Indirect 0.1 LAB AP(LOINC) 38-126 U/L High Alk Phos 136 LAB AST(LOINC) 8-34 U/L AST/SGOT 16 LAB ALT(LOINC) 12-55 U/L ALT/SGPT 15 Performed By: #### ANEU, BMP, HFP, LIP, CBC, ADIFF, RFP, GFR #### [address] [address] XR CHEST 2 VIEWS Observed: 09/15/2017 Status: F Source: [facility] 8:15 AM [facility] REPOSITORY ORIGINAL XR CHEST 2 VIEWS Clinical information: Chest Pain Comparison: 09/14/2017 Depth of inspiration remains decreased. Cardiomediastinal silhouette is normal. Pulmonary vasculature is no longer congested. Consolidation in the LEFT lung base is unchanged with partial obscuration LE FT hemidiaphragm. Mild airspace opacity is now seen in the RIGHT lower lung. Lateral view shows blunting of both costophrenic angles. No pneumothorax. IMPRESSION: Bibasilar atelectasis/infiltrate, worse and unchanged on the LEFT but new on the RIGHT. Bilateral pleural effusions. Resolution of interstitial edema. Interpreted By: Gelacio Pelaez MD Preliminary Report By: Gelacio Pelaez MD Electronically Signed By: Gelacio Pelaez MD Dictated Date: 09/15/2017 1:10:41 PM Prelim Date: 09/15/2017 1:10:41 PM Sign Date: 09/15/2017 1:19:14 PM CBC Collected: 09/15/2017 Status: F Source: [facility] 7:06 AM [facility] REPOSITORY TYPE CODE TESTS RESULT OUT OF REFERENCE UNITS RANGE LAB WBC(LOINC) 4.50-10.80 10 3/mcL High WBC 13.20 LAB RBCCT(LOINC 4.50-6.00 10 6/mcL ) Low RBC 2.99 LAB HGB(LOINC) 13.0-17.5 G/dL Low Hgb 8.9 LAB HCT(LOINC) 40.0-52.0 % Low Hct 27.6 LAB MCV(LOINC) 81.0-100.0 fL MCV 92.3 LAB MCH(LOINC) 27.0-33.0 pg MCH 29.9 LAB MCHC(LOINC) 32.0-36.0 G/dL MCHC 32.4 LAB RDW(LOINC) 11.5-15.5 % High RDW 19.0 LAB PLT(LOINC) 150-450 10 3/mcL Platelet 279 LAB MPV(LOINC) 6.4-10.5 fL MPV 9.8 Performed By: #### GFR, ANEU, ADIFF, BMP, CBC #### [place] [address] .AUTO DIFF Collected: 09/15/2017 Status: F Source: [facility] 7:06 AM [facility] REPOSITORY TYPE CODE TESTS RESULT OUT OF REFERENCE UNITS RANGE LAB JUAN A(LOINC) 50.0-75.0 % High Neutrophil % 79.3 LAB LYM(LOINC) 20.0-40.0 % Low Lymphocyte % 11.7 LAB MON(LOINC) 2.0-13.0 % Monocyte % 7.0 LAB EO(LOINC) 0.0-6.0 % Eosinophil % 1.6 LAB BAS(LOINC) 0.0-2.5 % Basophil % 0.4 LAB ABLYM(LOIN 0.90-4.32 10 3/mcL C) Lymphocyte, 1.50 Absolute LAB ALESSANDRA(LOINC 0.09-1.40 10 3/mcL ) Monocyte, 0.90 Absolute LAB AEOS(LOINC 0.00-0.65 10 3/mcL ) Eosinophil, 0.20 Absolute LAB ABAS(LOINC 0.00-0.27 10 3/mcL ) Basophil, 0.00 Absolute Performed By: #### GFR, ANEU, ADIFF, BMP, CBC #### [place] [address] .NEUABS Collected: 09/15/2017 Status: F Source: [facility] 7:06 AM [facility] REPOSITORY TYPE CODE TESTS RESULT OUT OF REFERENCE UNITS RANGE LAB ANEU(LOINC) 2.25-8.10 10 3/mcL High Neutrophil, 10.50 Absolute Performed By: #### GFR, ANEU, ADIFF, BMP, CBC #### [place] [address] BMP Collected: 09/15/2017 Status: F Source: [facility] 7:06 AM [facility] REPOSITORY TYPE CODE TESTS RESULT OUT OF REFERENCE UNITS RANGE LAB GLU(LOINC) 70-110 mg/dL Glucose High Level 208 LAB NA(LOINC) 136-145 mEq/L Sodium Level 143 LAB K(LOINC) 3.5-5.0 mEq/L Potassium Level 3.6 LAB CL(LOINC) 98-110 mEq/L Chloride 103 LAB CO2(LOINC) 22-32 mEq/L CO2 32 LAB EBAL(LOINC 4.0-15.0 mEq/L ) Electrolyte Balance 8.0 LAB BUN(LOINC) 8.0-22.0 mg/dL BUN High 62.0 LAB CRE(LOINC) 0.60-1.40 mg/dL Creatinine High Lvl (s) 4.41 LAB BC(LOINC) 10.0-22.0 ratio BUN/Creatinine 14.1 Ratio LAB CA(LOINC) 8.4-10.1 mg/dL Calcium Lvl 8.9 Performed By: #### GFR, ANEU, ADIFF, BMP, CBC #### [place] [address] .GFR Collected: 09/15/2017 Status: F Source: [facility] 7:06 AM [facility] REPOSITORY TYPE CODE TESTS RESULT OUT OF REFERENCE UNITS RANGE LAB GFRAA(LOINC ml/min/1.73 ) sqm GFR 19 [place] Result Comment: GFR Population mean for , Non- Americans Ages 20-29 = 116 mL/min/1.73 sq.m. Ages 30-39 = 107 mL/min/1.73 sq.m. Ages 40-49 = 99 mL/min/1.73 sq.m. Ages 50-59 = 93 mL/min/1.73 sq.m. Ages 60-69 = 85 mL/min/1.73 sq.m. Ages 70+ = 75 mL/min/1.73 sq.m. Chronic Kidney Disease: Less than 60 mL/min/1.73 square meters End Stage Renal Disease: Less than 15 mL/min/1.73 square meters LAB GFRNO(LOINC) ml/min/1.73sqm GFR Non- 15 Result Comment: GFR Population mean for , Non- Americans Ages 20-29 = 116 mL/min/1.73 sq.m. Ages 30-39 = 107 mL/min/1.73 sq.m. Ages 40-49 = 99 mL/min/1.73 sq.m. Ages 50-59 = 93 mL/min/1.73 sq.m. Ages 60-69 = 85 mL/min/1.73 sq.m. Ages 70+ = 75 mL/min/1.73 sq.m. Chronic Kidney Disease: Less than 60 mL/min/1.73 square meters End Stage Renal Disease: Less than 15 mL/min/1.73 square meters Performed By: #### GFR, ANEU, ADIFF, BMP, CBC #### [place] [address] XR CHEST 1 VIEW Observed: 09/14/2017 Status: F Source: [facility] 5:08 AM [facility] REPOSITORY ORIGINAL Clinical history: Dyspnea. COMPARISON: Chest x-ray on 09/13/2017. Portable AP radiograph of the chest was obtained at 5:44 AM. The endotracheal tube, and the enteric tube, and the left internal jugular dialysis catheter have been removed since the prior day. There is unchanged hypoventilation of the lungs. There is persistent vascular congestion. At least small bilateral pleural effusions are present. Airspace consolidation at the left lung base is seen. No new abnormality has developed. IMPRESSION: Support lines and tubes removed. Vascular congestion, pleural fluid and left basilar infiltrate are unchanged. Interpreted By: Hardeep Zheng MD Preliminary Report By: Hardeep Zheng MD Electronically Signed By: Hardeep Zheng MD Dictated Date: 09/14/2017 7:27:03 AM Prelim Date: 09/14/2017 7:27:03 AM Sign Date: 09/14/2017 7:28:59 AM BMP Collected: 09/14/2017 Status: F Source: [facility] 4:07 AM [facility] REPOSITORY TYPE CODE TESTS RESULT OUT OF REFERENCE UNITS RANGE LAB GLU(LOINC) 70-110 mg/dL Glucose High Level 188 LAB NA(LOINC) 136-145 mEq/L Sodium High Level 153 LAB K(LOINC) 3.5-5.0 mEq/L Potassium Level 3.8 LAB CL(LOINC) 98-110 mEq/L Chloride High 112 LAB CO2(LOINC) 22-32 mEq/L CO2 30 LAB EBAL(LOINC 4.0-15.0 mEq/L ) Electrolyte Balance 11.0 LAB BUN(LOINC) 8.0-22.0 mg/dL BUN High 67.0 LAB CRE(LOINC) 0.60-1.40 mg/dL Creatinine High Lvl (s) 5.16 LAB BC(LOINC) 10.0-22.0 ratio BUN/Creatinine 13.0 Ratio LAB CA(LOINC) 8.4-10.1 mg/dL Low Calcium Lvl 8.3 Performed By: #### GFR, DIFF, CBC, VANCR, MORPH, BMP #### [place] [id number] .GFR Collected: 09/14/2017 Status: F Source: [facility] 4:07 AM [facility] REPOSITORY TYPE CODE TESTS RESULT OUT OF REFERENCE UNITS RANGE LAB GFRAA(LOINC ml/min/1.73 ) sqm GFR 16 [place] Result Comment: GFR Population mean for , Non- Americans Ages 20-29 = 116 mL/min/1.73 sq.m. Ages 30-39 = 107 mL/min/1.73 sq.m. Ages 40-49 = 99 mL/min/1.73 sq.m. Ages 50-59 = 93 mL/min/1.73 sq.m. Ages 60-69 = 85 mL/min/1.73 sq.m. Ages 70+ = 75 mL/min/1.73 sq.m. Chronic Kidney Disease: Less than 60 mL/min/1.73 square meters End Stage Renal Disease: Less than 15 mL/min/1.73 square meters LAB GFRNO(LOINC) ml/min/1.73sqm GFR Non- 13 Result Comment: GFR Population mean for , Non- Americans Ages 20-29 = 116 mL/min/1.73 sq.m. Ages 30-39 = 107 mL/min/1.73 sq.m. Ages 40-49 = 99 mL/min/1.73 sq.m. Ages 50-59 = 93 mL/min/1.73 sq.m. Ages 60-69 = 85 mL/min/1.73 sq.m. Ages 70+ = 75 mL/min/1.73 sq.m. Chronic Kidney Disease: Less than 60 mL/min/1.73 square meters End Stage Renal Disease: Less than 15 mL/min/1.73 square meters Performed By: #### GFR, DIFF, CBC, VANCR, MORPH, BMP #### [place] [id number] VANCR Collected: 09/14/2017 Status: F Source: [facility] 4:07 AM [facility] REPOSITORY TYPE CODE TESTS RESULT OUT OF REFERENCE UNITS RANGE LAB LD021(LOIN C) LDose Vancomycin: See eMAR (random) LAB 4091-5 mcg/mL VANCOMYCIN 28.2 Result Comment: No normal reference range reported for random vancomycin testing. Performed By: #### GFR, DIFF, CBC, VANCR, MORPH, BMP #### [address] [address] CBC Collected: 09/14/2017 Status: F Source: [facility] 4:07 AM [facility] REPOSITORY TYPE CODE TESTS RESULT OUT OF RANGE REFERENCE UNITS LAB WBC(LOINC) 4.50-10.80 10 3/mcL High WBC 19.00 Result Comment: Capillary or microtainer specimen received. LAB RBCCT(LOINC) 4.50-6.00 10 6/mcL Low RBC 2.85 LAB HGB(LOINC) 13.0-17.5 G/dL Low Hgb 8.7 LAB HCT(LOINC) 40.0-52.0 % Low Hct 26.1 LAB MCV(LOINC) 81.0-100.0 fL MCV 91.2 LAB MCH(LOINC) 27.0-33.0 pg MCH 30.6 LAB MCHC(LOINC) 32.0-36.0 G/dL MCHC 33.6 LAB RDW(LOINC) 11.5-15.5 % High RDW 18.6 LAB PLT(LOINC) 150-450 10 3/mcL Platelet 190 LAB MPV(LOINC) 6.4-10.5 fL MPV 10.3 Performed By: #### GFR, DIFF, CBC, VANCR, MORPH, BMP #### [place] [id number] .MANUAL DIFF Collected: 09/14/2017 Status: F Source: [facility] 4:07 AM [facility] REPOSITORY TYPE CODE TESTS RESULT OUT OF REFERENCE UNITS RANGE LAB LIMIT(LOIN C) Cells Counted 100 LAB NEUM(LOINC 50.0-75.0 % ) High Neutrophil %, 82.0 Manual LAB LYMM(LOINC 20.0-40.0 % ) Low Lymphocyte %, 6.0 Manual LAB EOM(LOINC) 2.0-13.0 % Monocyte %, Manual 9.0 Result Comment: 1.0 LAB BASM(LOINC) 0.0-2.5 % Basophil %, Manual 0.0 LAB BAND(LOINC) 0.0-5.0 % Bands 2.0 LAB ANEUM(LOINC) 2.25-8.10 10 3/mcL High Neutrophil, Abs Manual 15.96 LAB ABLYMM(LOINC) 0.90-4.32 10 3/mcL Lymphocyte, Abs Manual 1.14 LAB AMONM(LOINC) 0.09-1.40 10 3/mcL High Monocyte, Abs Manual 1.71 LAB AEOSM(LOINC) 0.00-0.65 10 3/mcL Eosinophil, Abs Manual 0.19 LAB ABASM(LOINC) 0.00-0.27 10 3/mcL Basophil, Abs Manual 0.00 Performed By: #### GFR, DIFF, CBC, VANCR, MORPH, BMP #### [address] [address] .MORPH Collected: 09/14/2017 Status: F Source: [facility] 4:07 AM [facility] REPOSITORY TYPE CODE TESTS RESULT OUT OF REFERENCE UNITS RANGE LAB PLTE(LOINC ) Platelet Estimate Normal LAB ANIS(LOINC ) Anisocytosis Slight LAB POLC(LOINC ) Polychrom Slight Performed By: #### GFR, DIFF, CBC, VANCR, MORPH, BMP #### [address] [address] Observed: 09/13/2017 Status: F Source: [facility] 3:27 PM [facility] REPOSITORY . MICRO - Microbiology PROCEDURE: Catheter Tip Culture [[id number]: [id number] *1] SOURCE: Catheter Tip, Dialysis BODY SITE: COLLECTED DATE/TIME: 09/13/2017 15:27 EDT RECEIVED DATE/TIME: 09/13/2017 15:54 EDT START DATE/TIME: 09/13/2017 15:54 EDT FREE TEXT SOURCE: FINAL REPORTS Final Report [] Verified Date/Time/Personnel: 09/15/2017 08:02 EDT No growth at 48 hours. PRELIMINARY REPORTS Preliminary Report [] Verified Date/Time/Personnel: 09/14/2017 08:42 EDT No growth to date Order Comments O1: Catheter Tip Culture PLEASE SEND CULTURE OF TIP OF DIALYSIS CATHETER. Performing Locations *1: This test was performed at: [facility], [address] [place] [address], [facility] , [facility] Performed By: #### [facility] #### [address] [address] CBC Collected: 09/13/2017 Status: F Source: [facility] 6:32 AM [facility] REPOSITORY TYPE CODE TESTS RESULT OUT OF REFERENCE UNITS RANGE LAB WBC(LOINC) 4.50-10.80 10 3/mcL High WBC 18.20 LAB RBCCT(LOINC 4.50-6.00 10 6/mcL ) Low RBC 2.67 LAB HGB(LOINC) 13.0-17.5 G/dL Low Hgb 8.1 LAB HCT(LOINC) 40.0-52.0 % Low Hct 24.7 LAB MCV(LOINC) 81.0-100.0 fL MCV 92.4 LAB MCH(LOINC) 27.0-33.0 pg MCH 30.5 LAB MCHC(LOINC) 32.0-36.0 G/dL MCHC 33.0 LAB RDW(LOINC) 11.5-15.5 % High RDW 18.6 LAB PLT(LOINC) 150-450 10 3/mcL Platelet 189 LAB MPV(LOINC) 6.4-10.5 fL MPV 9.3 Performed By: #### ANEU, RFP, ADIFF, MG, BMP, GFR, CBC #### [address] [address] .AUTO DIFF Collected: 09/13/2017 Status: F Source: [facility] 6:32 AM [facility] REPOSITORY TYPE CODE TESTS RESULT OUT OF REFERENCE UNITS RANGE LAB JUAN A(LOINC) 50.0-75.0 % High Neutrophil % 83.1 LAB LYM(LOINC) 20.0-40.0 % Low Lymphocyte % 7.2 LAB MON(LOINC) 2.0-13.0 % Monocyte % 7.7 LAB EO(LOINC) 0.0-6.0 % Eosinophil % 1.8 LAB BAS(LOINC) 0.0-2.5 % Basophil % 0.2 LAB ABLYM(LOIN 0.90-4.32 10 3/mcL C) Lymphocyte, 1.30 Absolute LAB ALESSANDRA(LOINC 0.09-1.40 10 3/mcL ) Monocyte, 1.40 Absolute LAB AEOS(LOINC 0.00-0.65 10 3/mcL ) Eosinophil, 0.30 Absolute LAB ABAS(LOINC 0.00-0.27 10 3/mcL ) Basophil, 0.00 Absolute Performed By: #### ANEU, RFP, ADIFF, MG, BMP, GFR, CBC #### [address] [address] .NEUABS Collected: 09/13/2017 Status: F Source: [facility] 6:32 AM [facility] REPOSITORY TYPE CODE TESTS RESULT OUT OF REFERENCE UNITS RANGE LAB ANEU(LOINC) 2.25-8.10 10 3/mcL High Neutrophil, 15.20 Absolute Performed By: #### ANEU, RFP, ADIFF, MG, BMP, GFR, CBC #### [address] [address] MG Collected: 09/13/2017 Status: F Source: [facility] 6:32 AM [facility] REPOSITORY TYPE CODE TESTS RESULT OUT OF REFERENCE UNITS RANGE LAB MG(LOINC) 1.6-2.4 mg/dL Magnesium Lvl 2.4 Result Comment: Specimen slightly hemolyzed. Performed By: #### ANEU, RFP, ADIFF, MG, BMP, GFR, CBC #### [address] [address] BMP Collected: 09/13/2017 Status: F Source: [facility] 6:32 AM [facility] REPOSITORY TYPE CODE TESTS RESULT OUT OF REFERENCE UNITS RANGE LAB GLU(LOINC) 70-110 mg/dL High Glucose Level 293 LAB NA(LOINC) 136-145 mEq/L High Sodium Level 147 LAB K(LOINC) 3.5-5.0 mEq/L Potassium Level 4.5 Result Comment: Specimen slightly hemolyzed LAB CL(LOINC) 98-110 mEq/L Chloride 106 LAB CO2(LOINC) 22-32 mEq/L CO2 27 LAB EBAL(LOINC) 4.0-15.0 mEq/L Electrolyte Balance 14.0 LAB BUN(LOINC) 8.0-22.0 mg/dL BUN High 67.0 LAB CRE(LOINC) 0.60-1.40 mg/dL Creatinine High Lvl (s) 5.39 LAB BC(LOINC) 10.0-22.0 ratio BUN/Creatinine Ratio 12.4 LAB CA(LOINC) 8.4-10.1 mg/dL Calcium Lvl Low 8.2 Performed By: #### ANEU, RFP, ADIFF, MG, BMP, GFR, CBC #### [address] [address] .GFR Collected: 09/13/2017 Status: F Source: [facility] 6:32 AM [facility] REPOSITORY TYPE CODE TESTS RESULT OUT OF REFERENCE UNITS RANGE LAB GFRAA(LOINC ml/min/1.73 ) sqm GFR 15 [place] Result Comment: GFR Population mean for , Non- Americans Ages 20-29 = 116 mL/min/1.73 sq.m. Ages 30-39 = 107 mL/min/1.73 sq.m. Ages 40-49 = 99 mL/min/1.73 sq.m. Ages 50-59 = 93 mL/min/1.73 sq.m. Ages 60-69 = 85 mL/min/1.73 sq.m. Ages 70+ = 75 mL/min/1.73 sq.m. Chronic Kidney Disease: Less than 60 mL/min/1.73 square meters End Stage Renal Disease: Less than 15 mL/min/1.73 square meters LAB GFRNO(LOINC) ml/min/1.73sqm GFR Non- 12 Result Comment: GFR Population mean for , Non- Americans Ages 20-29 = 116 mL/min/1.73 sq.m. Ages 30-39 = 107 mL/min/1.73 sq.m. Ages 40-49 = 99 mL/min/1.73 sq.m. Ages 50-59 = 93 mL/min/1.73 sq.m. Ages 60-69 = 85 mL/min/1.73 sq.m. Ages 70+ = 75 mL/min/1.73 sq.m. Chronic Kidney Disease: Less than 60 mL/min/1.73 square meters End Stage Renal Disease: Less than 15 mL/min/1.73 square meters Performed By: #### ANEU, RFP, ADIFF, MG, BMP, GFR, CBC #### [place] [address] RFP Collected: 09/13/2017 Status: F Source: [facility] 6:32 AM [facility] TYPE CODE TESTS RESULT OUT OF REFERENCE UNITS RANGE LAB GLU(LOINC) 70-110 mg/dL High Glucose Level 293 LAB NA(LOINC) 136-145 mEq/L High Sodium Level 147 LAB K(LOINC) 3.5-5.0 mEq/L Potassium Level 4.5 Result Comment: Specimen slightly hemolyzed LAB CL(LOINC) 98-110 mEq/L Chloride 106 LAB CO2(LOINC) 22-32 mEq/L CO2 27 LAB EBAL(LOINC) 4.0-15.0 mEq/L Electrolyte Balance 14.0 LAB BUN(LOINC) 8.0-22.0 mg/dL BUN High 67.0 LAB CRE(LOINC) 0.60-1.40 mg/dL Creatinine High Lvl (s) 5.39 LAB BC(LOINC) 10.0-22.0 ratio BUN/Creatinine Ratio 12.4 LAB CA(LOINC) 8.4-10.1 mg/dL Calcium Lvl Low 8.2 LAB PHOS(LOINC) 2.5-4.5 mg/dL Phosphorus High 5.8 LAB ALB(LOINC) 3.2-4.8 G/dL Albumin Low Level 1.8 Performed By: #### ANEU, RFP, ADIFF, MG, BMP, GFR, CBC #### [place] [address] Observed: 09/13/2017 Status: F Source: [facility] 6:32 AM [facility] REPOSITORY . MICRO - Microbiology PROCEDURE: Blood Culture (bacterial) [*1] SOURCE: Blood BODY SITE: COLLECTED DATE/TIME: 09/13/2017 06:32 EDT RECEIVED DATE/TIME: 09/13/2017 08:58 EDT START DATE/TIME: 09/13/2017 08:58 EDT FREE TEXT SOURCE: FINAL REPORTS Final Report [] Verified Date/Time/Personnel: 09/18/2017 08:59 EDT Blood Culture: No Growth at 5 days. PRELIMINARY REPORTS Preliminary Report [] Verified Date/Time/Personnel: 09/13/2017 09:59 EDT Culture has been received in lab and is no growth to date. Routine cultures are held for 5 days. Performing Locations *1: This test was performed at: [facility], [address] [place] [address], [address] [place] [address] Performed By: #### CBL #### [place] [address] Observed: 09/13/2017 Status: F Source: [facility] 6:32 AM [facility] REPOSITORY . MICRO - Microbiology PROCEDURE: Blood Culture (bacterial) [*1] SOURCE: Blood BODY SITE: COLLECTED DATE/TIME: 09/13/2017 06:32 EDT RECEIVED DATE/TIME: 09/13/2017 08:58 EDT START DATE/TIME: 09/13/2017 08:59 EDT FREE TEXT SOURCE: FINAL REPORTS Final Report [] Verified Date/Time/Personnel: 09/18/2017 08:59 EDT Blood Culture: No Growth at 5 days. PRELIMINARY REPORTS Preliminary Report [] Verified Date/Time/Personnel: 09/13/2017 09:59 EDT Culture has been received in lab and is no growth to date. Routine cultures are held for 5 days. Performing Locations *1: This test was performed at: [facility], [address] [place] [address], [id number] , [facility] Performed By: #### CBL #### [address] [address] XR CHEST 1 VIEW Observed: 09/13/2017 Status: F Source: [facility] 5:04 AM [facility] REPOSITORY ORIGINAL Portable Chest x-ray Clinical Statement: dyspnea Comparison: 09/12/2017 Low lung volumes and mild diffuse hazy increased opacities are seen. The cardiac silhouette is stable. No pneumothorax or large pleural effusion noted. Support devices are again seen, maintained in position. IMPRESSION: No significant change. Interpreted By: Luis Miguel Suárez DO Preliminary Report By: Luis Miguel Suárez DO Electronically Signed By: Luis Miguel Suárez DO Dictated Date: 09/13/2017 8:16:58 AM Prelim Date: 09/13/2017 8:16:58 AM Sign Date: 09/13/2017 8:18:15 AM Observed: 09/12/2017 Status: F Source: [facility] 7:44 AM [facility] REPOSITORY . MICRO - Microbiology PROCEDURE: Culture Respiratory with Gram Stain [1 *1] SOURCE: Sputum BODY SITE: COLLECTED DATE/TIME: 09/12/2017 07:44 EDT RECEIVED DATE/TIME: 09/12/2017 09:50 EDT START DATE/TIME: 09/12/2017 09:50 EDT FREE TEXT SOURCE: FINAL REPORTS Final Report [] Verified Date/Time/Personnel: 09/14/2017 08:28 EDT Normal respiratory natalie present. Sensitivity testing not indicated. PRELIMINARY REPORTS Preliminary Report [] Verified Date/Time/Personnel: 09/13/2017 07:56 EDT Negative for respiratory pathogens at 24 hours. STAINS GS [] Verified Date/Time/Personnel: 09/12/2017 11:52 EDT Predominance of polys Rare Gram Positive Cocci Rare Yeast Interpretive Data 1: Culture Respiratory with Gram Stain Requests for Mycoplasma, Legionella, Fungi, Mycobacteria, Chlamydia, and Viruses require ordering of those individual tests. Performing Locations *1: This test was performed at: [facility], [address] [place] [address], [id number] [place] [address] Performed By: #### CRESP #### [address] [address] BG Collected: 09/12/2017 Status: F Source: [facility] 6:41 AM [facility] REPOSITORY TYPE CODE TESTS RESULT OUT OF REFERENCE UNITS RANGE LAB PH(LOINC) 7.380-7.460 pH 7.444 LAB PCO2(LOINC 32.0-46.0 mmHg ) pCO2 43.1 LAB PO2(LOINC) 74.0-108.0 mmHg pO2 80.4 LAB HCO3(LOINC 21.0-29.0 mmol/L ) HCO3 28.9 LAB TCO2(LOINC 22.0-30.0 mmol/L ) CO2 Totl High 30.2 LAB BE(LOINC) mmol/L Base Excess 4.4 LAB O2SAT(LOIN 92.0-96.0 % C) O2 Sat 95.4 LAB BPRES(LOIN mmHg C) Barometric 738 Pressure Performed By: #### BG #### [place] [address] XR CHEST 1 VIEW Observed: 09/12/2017 Status: F Source: [facility] 5:11 AM [facility] REPOSITORY ORIGINAL Clinical history: Respiratory failure. On ventilator. COMPARISON: Chest x-ray on 09/11/2017. Portable AP radiograph of the chest was obtained at 5:55 AM. The endotracheal tube and the enteric tube are in satisfactory position. Left internal jugular dialysis catheter tip is near the cavoatrial junction. There is increasing vascular congestion bilaterally. Evaluation for pleural fluid is limited, but the haziness of the lungs especially at the lung bases is strongly suspicious for pleural fluid. IMPRESSION: Increasing pulmonary vascular congestion diffusely. Evidence of bilateral pleural fluid that is impossible to quantify on this single exam. Interpreted By: Hardeep Zheng MD Preliminary Report By: Hardeep Zheng MD Electronically Signed By: Hardeep Zheng MD Dictated Date: 09/12/2017 6:56:40 AM Prelim Date: 09/12/2017 6:56:40 AM Sign Date: 09/12/2017 6:58:49 AM CAION Collected: 09/12/2017 Status: F Source: [facility] 4:00 AM [facility] REPOSITORY TYPE CODE TESTS RESULT OUT OF REFERENCE UNITS RANGE LAB CAION(LOINC 1.12-1.32 mmol/L ) Low Calcium 1.09 Ionized Performed By: #### ANEU, MG, ADIFF, GFR, RFP, CBC, BMP, MYCO, MORPH, CAION #### [address] [address] CBC Collected: 09/12/2017 Status: F Source: [facility] 4:00 AM [facility] REPOSITORY TYPE CODE TESTS RESULT OUT OF REFERENCE UNITS RANGE LAB WBC(LOINC) 4.50-10.80 10 3/mcL High WBC 21.40 LAB RBCCT(LOINC 4.50-6.00 10 6/mcL ) Low RBC 2.67 LAB HGB(LOINC) 13.0-17.5 G/dL Low Hgb 7.9 LAB HCT(LOINC) 40.0-52.0 % Low Hct 24.3 LAB MCV(LOINC) 81.0-100.0 fL MCV 91.0 LAB MCH(LOINC) 27.0-33.0 pg MCH 29.7 LAB MCHC(LOINC) 32.0-36.0 G/dL MCHC 32.6 LAB RDW(LOINC) 11.5-15.5 % High RDW 18.4 LAB PLT(LOINC) 150-450 10 3/mcL Platelet 190 LAB MPV(LOINC) 6.4-10.5 fL MPV 9.3 Performed By: #### ANEU, MG, ADIFF, GFR, RFP, CBC, BMP, MYCO, MORPH, CAION #### [address] [address] MG Collected: 09/12/2017 Status: F Source: [facility] 4:00 AM [facility] REPOSITORY TYPE CODE TESTS RESULT OUT OF REFERENCE UNITS RANGE LAB MG(LOINC) 1.6-2.4 mg/dL Magnesium Lvl 2.3 Performed By: #### ANEU, MG, ADIFF, GFR, RFP, CBC, BMP, MYCO, MORPH, CAION #### [place] [address] BMP Collected: 09/12/2017 Status: F Source: [facility] 4:00 AM [facility] REPOSITORY TYPE CODE TESTS RESULT OUT OF REFERENCE UNITS RANGE LAB GLU(LOINC) 70-110 mg/dL Glucose High Level 256 LAB NA(LOINC) 136-145 mEq/L Sodium Level 145 LAB K(LOINC) 3.5-5.0 mEq/L Potassium Level 3.8 LAB CL(LOINC) 98-110 mEq/L Chloride 100 LAB CO2(LOINC) 22-32 mEq/L CO2 26 LAB EBAL(LOINC 4.0-15.0 mEq/L ) Electrolyte High Balance 19.0 LAB BUN(LOINC) 8.0-22.0 mg/dL BUN High 72.0 LAB CRE(LOINC) 0.60-1.40 mg/dL Creatinine High Lvl (s) 5.56 LAB BC(LOINC) 10.0-22.0 ratio BUN/Creatinine 12.9 Ratio LAB CA(LOINC) 8.4-10.1 mg/dL Calcium Lvl 8.4 Performed By: #### ANEU, MG, ADIFF, GFR, RFP, CBC, BMP, MYCO, MORPH, CAION #### [place] [address] .GFR Collected: 09/12/2017 Status: F Source: [facility] 4:00 AM [facility] REPOSITORY TYPE CODE TESTS RESULT OUT OF REFERENCE UNITS RANGE LAB GFRAA(LOINC ml/min/1.73 ) sqm GFR 14 [place] Result Comment: GFR Population mean for , Non- Americans Ages 20-29 = 116 mL/min/1.73 sq.m. Ages 30-39 = 107 mL/min/1.73 sq.m. Ages 40-49 = 99 mL/min/1.73 sq.m. Ages 50-59 = 93 mL/min/1.73 sq.m. Ages 60-69 = 85 mL/min/1.73 sq.m. Ages 70+ = 75 mL/min/1.73 sq.m. Chronic Kidney Disease: Less than 60 mL/min/1.73 square meters End Stage Renal Disease: Less than 15 mL/min/1.73 square meters LAB GFRNO(LOINC) ml/min/1.73sqm GFR Non- 12 Result Comment: GFR Population mean for , Non- Americans Ages 20-29 = 116 mL/min/1.73 sq.m. Ages 30-39 = 107 mL/min/1.73 sq.m. Ages 40-49 = 99 mL/min/1.73 sq.m. Ages 50-59 = 93 mL/min/1.73 sq.m. Ages 60-69 = 85 mL/min/1.73 sq.m. Ages 70+ = 75 mL/min/1.73 sq.m. Chronic Kidney Disease: Less than 60 mL/min/1.73 square meters End Stage Renal Disease: Less than 15 mL/min/1.73 square meters Performed By: #### ANEU, MG, ADIFF, GFR, RFP, CBC, BMP, MYCO, MORPH, CAION #### [place] [address] RFP Collected: 09/12/2017 Status: F Source: [facility] 4:00 AM [facility] TYPE CODE TESTS RESULT OUT OF REFERENCE UNITS RANGE LAB GLU(LOINC) 70-110 mg/dL Glucose High Level 256 LAB NA(LOINC) 136-145 mEq/L Sodium Level 145 LAB K(LOINC) 3.5-5.0 mEq/L Potassium Level 3.8 LAB CL(LOINC) 98-110 mEq/L Chloride 100 LAB CO2(LOINC) 22-32 mEq/L CO2 26 LAB EBAL(LOINC 4.0-15.0 mEq/L ) Electrolyte High Balance 19.0 LAB BUN(LOINC) 8.0-22.0 mg/dL BUN High 72.0 LAB CRE(LOINC) 0.60-1.40 mg/dL Creatinine High Lvl (s) 5.56 LAB BC(LOINC) 10.0-22.0 ratio BUN/Creatinine 12.9 Ratio LAB CA(LOINC) 8.4-10.1 mg/dL Calcium Lvl 8.4 LAB PHOS(LOINC 2.5-4.5 mg/dL ) Phosphorus 3.8 LAB ALB(LOINC) 3.2-4.8 G/dL Low Albumin Level 1.9 Performed By: #### ANEU, MG, ADIFF, GFR, RFP, CBC, BMP, MYCO, MORPH, CAION #### [place] [address] .AUTO DIFF Collected: 09/12/2017 Status: F Source: [facility] 4:00 AM [facility] REPOSITORY TYPE CODE TESTS RESULT OUT OF REFERENCE UNITS RANGE LAB JUAN A(LOINC) 50.0-75.0 % High Neutrophil % 81.0 LAB LYM(LOINC) 20.0-40.0 % Low Lymphocyte % 9.8 LAB MON(LOINC) 2.0-13.0 % Monocyte % 8.2 LAB EO(LOINC) 0.0-6.0 % Eosinophil % 0.7 LAB BAS(LOINC) 0.0-2.5 % Basophil % 0.3 LAB ABLYM(LOIN 0.90-4.32 10 3/mcL C) Lymphocyte, 2.10 Absolute LAB ALESSANDRA(LOINC 0.09-1.40 10 3/mcL ) High Monocyte, 1.70 Absolute LAB AEOS(LOINC 0.00-0.65 10 3/mcL ) Eosinophil, 0.10 Absolute LAB ABAS(LOINC 0.00-0.27 10 3/mcL ) Basophil, 0.10 Absolute Performed By: #### ANEU, MG, ADIFF, GFR, RFP, CBC, BMP, MYCO, MORPH, CAION #### [place] [address] .NEUABS Collected: 09/12/2017 Status: F Source: [facility] 4:00 [facility] REPOSITORY TYPE CODE TESTS RESULT OUT OF REFERENCE UNITS RANGE LAB ANEU(LOINC) 2.25-8.10 10 3/mcL High Neutrophil, 17.30 Absolute Performed By: #### ANEU, MG, ADIFF, GFR, RFP, CBC, BMP, MYCO, MORPH, CAION #### [place] [address] .MORPH Collected: 09/12/2017 Status: F Source: [facility] 4:00 [facility] REPOSITORY TYPE CODE TESTS RESULT OUT OF REFERENCE UNITS RANGE LAB PLTE(LOINC ) Platelet Estimate Normal LAB ANIS(LOINC ) Anisocytosis Slight LAB POLC(LOINC ) Polychrom Slight Performed By: #### ANEU, MG, ADIFF, GFR, RFP, CBC, BMP, MYCO, MORPH, CAION #### [address] MYCO Collected: 09/12/2017 Status: F Source: [facility] 4:00 AM [facility] REPOSITORY TYPE CODE TESTS RESULT OUT OF REFERENCE UNITS RANGE LAB [id number](LOINC) Mycoplasma IgM Negative Result Comment: INTERPRETATION OF MYCOPLASMA BY EIA (Effective 06/24/04): Negative No detectable antibodies to M. pneumoniae. Indicates absence of current or previous infection. Positive Reactive for antibodies to M. pneumoniae. Indicates a past or recent infection. Equivocal Equivocal for antibodies to M. pneumoniae. Repeat testing by an alternate method suggested. LAB [id number](LOINC) Mycoplasma IgG Neg Result Comment: INTERPRETATION OF MYCOPLASMA BY EIA (Effective 06/24/04): Negative No detectable antibodies to M. pneumoniae. Indicates absence of current or previous infection. Positive Reactive for antibodies to M. pneumoniae. Indicates a past or recent infection. Equivocal Equivocal for antibodies to M. pneumoniae. Repeat testing by an alternate method suggested. Performed By: #### ANEU, MG, ADIFF, GFR, RFP, CBC, BMP, MYCO, MORPH, CAION #### [place] [address] BG Collected: 09/11/2017 Status: F Source: [facility] 9:46 PM [facility] REPOSITORY TYPE CODE TESTS RESULT OUT OF REFERENCE UNITS RANGE LAB PH(LOINC) 7.380-7.460 pH 7.385 LAB PCO2(LOINC 32.0-46.0 mmHg ) pCO2 High 46.1 LAB PO2(LOINC) 74.0-108.0 mmHg pO2 High 167.8 LAB HCO3(LOINC 21.0-29.0 mmol/L ) HCO3 27.0 LAB TCO2(LOINC 22.0-30.0 mmol/L ) CO2 Totl 28.4 LAB BE(LOINC) mmol/L Base Excess 1.4 LAB O2SAT(LOIN 92.0-96.0 % C) O2 Sat High 99.1 LAB BPRES(LOIN mmHg C) Barometric 740 Pressure Performed By: #### BG #### [place] [address] XR CHEST 1 VIEW Observed: 09/11/2017 Status: F Source: [facility] 8:01 PM [facility] REPOSITORY ORIGINAL XR CHEST 1 VIEW portable supine 8:52 PM CLINICAL STATEMENT: OG placement COMPARISON: Same day FINDINGS: The enteric tube tip is in the distal body/antrum of the stomach, not optimally localize. Nonobstructive bowel gas pattern. IMPRESSION: Enteric tube is in the stomach. Interpreted By: Zachery Salazar MD Preliminary Report By: Zachery Salazar MD Electronically Signed By: Zachery Salazar MD Dictated Date: 09/11/2017 9:31:52 PM Prelim Date: 09/11/2017 9:31:52 PM Sign Date: 09/11/2017 9:32:17 PM XR CHEST 1 VIEW Observed: 09/11/2017 Status: F Source: [facility] 8:01 PM [facility] REPOSITORY ORIGINAL XR CHEST 1 VIEW portable semiupright 8:52 PM CLINICAL STATEMENT: intubation COMPARISON: Same day FINDINGS: Stable heart and mediastinum. Left-sided dialysis type of catheter is unchanged. Endotracheal tube is present with its tip about 2.8 cm proximal to the caridad. Enteric tube extends into stomac h, tip not optimally seen. There is a pulmonary edema pattern in the lungs similar to the earlier study. No large effusion. IMPRESSION: Satisfactory endotracheal and enteric tube placement. No other significant changes. Interpreted By: Zachery Salazar MD Preliminary Report By: Zachery Salazar MD Electronically Signed By: Zachery Salazar MD Dictated Date: 09/11/2017 9:30:17 PM Prelim Date: 09/11/2017 9:30:17 PM Sign Date: 09/11/2017 9:31:00 PM LAC Collected: 09/11/2017 Status: F Source: [facility] 7:20 PM [facility] REPOSITORY TYPE CODE TESTS RESULT OUT OF REFERENCE UNITS RANGE LAB LAC(LOINC) 0.2-2.0 mmol/L Lactic Acid 1.2 Lvl Performed By: #### LAC #### [place] [address] BG Collected: 09/11/2017 Status: F Source: [facility] 6:49 PM [facility] REPOSITORY TYPE CODE TESTS RESULT OUT OF REFERENCE UNITS RANGE LAB PH(LOINC) 7.380-7.460 pH 7.424 LAB PCO2(LOINC 32.0-46.0 mmHg ) pCO2 High 49.6 LAB PO2(LOINC) 74.0-108.0 mmHg pO2 74.3 LAB HCO3(LOINC 21.0-29.0 mmol/L ) HCO3 High 31.7 LAB TCO2(LOINC 22.0-30.0 mmol/L ) CO2 Totl High 33.3 LAB BE(LOINC) mmol/L Base Excess 6.5 LAB O2SAT(LOIN 92.0-96.0 % C) O2 Sat 94.3 LAB BPRES(LOIN mmHg C) Barometric 741 Pressure Performed By: #### BG #### [address] [address] UA Collected: 09/11/2017 Status: F Source: [facility] 4:37 PM [facility] REPOSITORY TYPE CODE TESTS RESULT OUT OF RANGE REFERENCE UNITS LAB SPCUA(PARVEZ NC) UA Specimen Type Catheter LAB CLRUA(PARVEZ NC) UA Color Straw LAB APPUA(PARVEZ Clear NC) UA Appear Abnormal Cloudy LAB SGUA(LOIN 1.006-1.029 C) UA Spec Grav 1.010 LAB GLUA(LOIN Negative mg/dL C) UA Glucose Abnormal 100 LAB BILUA(PARVEZ Neg-Trace NC) UA Bili Negative LAB KETUA(PARVEZ Neg-Trace mg/dL NC) UA Ketones Trace LAB BLDUA(PARVEZ Neg-Trace NC) UA Blood Abnormal Large LAB PHUA(LOIN 5.0 - 8.0 C) UA pH 6.0 LAB PROUA(PARVEZ Negative mg/dL NC) UA Protein Abnormal 100 LAB UROUA(PARVEZ 0.2-1.0 E.U./dL NC) UA Urobilinogen 0.2 LAB NITUA(PARVEZ Negative NC) UA Nitrite Negative LAB LEUUA(PARVEZ Negative NC) UA Leuk Est Abnormal Large Performed By: #### UAMIC, UA #### [address] [address] UAMIC Collected: 09/11/2017 Status: F Source: [facility] 4:37 PM [facility] REPOSITORY TYPE CODE TESTS RESULT OUT OF RANGE REFERENCE UNITS LAB RBCUA(LOIN 0-2 /hpf C) UA RBC Abnormal 10-20 LAB WBCUA(LOIN 0-5 /hpf C) UA WBC Abnormal 25-50 LAB EPIUA(LOIN 0-20 /hpf C) UA Squam Epithelial Rare LAB AMOUA(LOIN /hpf C) UA Amorphus 2+ LAB YSTUA(LOIN /hpf C) UA Yeast Abnormal 4+ LAB GLTUA(LOIN /hpf C) UA Abnormal Glitter cells 10-20 LAB GSTUA(LOIN /hpf C) UA Ghost Abnormal cells 3-5 Performed By: #### UAMIC, UA #### [place] [id number] Observed: 09/11/2017 Status: F Source: [facility] 4:37 PM [facility] REPOSITORY . MICRO - Microbiology PROCEDURE: Urine Culture [*1] SOURCE: Urine, Franco Catheter BODY SITE: COLLECTED DATE/TIME: 09/11/2017 16:37 EDT RECEIVED DATE/TIME: 09/11/2017 18:00 EDT START DATE/TIME: 09/11/2017 18:00 EDT FREE TEXT SOURCE: FINAL REPORTS Final Report [] Verified Date/Time/Personnel: 09/13/2017 12:28 EDT >100,000 organisms per mL Yeast, not Gladis albicans Contact Microbiology within 72 hours if further identification is indicated ([id number]). [place] counts from a single urine are equivocal in determining infection vs. colonization of yeast. Multiple cultures at least 24 hours apart may be helpful in differentiating colonization from infection. PRELIMINARY REPORTS Preliminary Report [] Verified Date/Time/Personnel: 09/12/2017 07:31 EDT No growth to date Performing Locations *1: This test was performed at: [facility], [address] [place] [address], [address] [place] [address] Performed By: #### CUR #### [place] [id number] XR CHEST 1 VIEW Observed: 09/11/2017 Status: F Source: [facility] 4:10 PM [facility] REPOSITORY ORIGINAL XR CHEST 1 VIEW CLINICAL STATEMENT: shortness of breath; lethargy; sepsis COMPARISON: 09/09/2017 FINDINGS:Cardiomegaly is stable. LEFT central venous catheter remains in place. Patchy airspace disease partially silhouetting cardiac and hemidiaphragm contours with underlying pleural fluid is unchang ed in appearance from prior films. No pneumothorax has developed IMPRESSION:No interval change Interpreted By: Deanne Nails MD Preliminary Report By: Deanne Nails MD Electronically Signed By: Deanne Nails MD Dictated Date: 09/11/2017 5:02:01 PM Prelim Date: 09/11/2017 5:02:01 PM Sign Date: 09/11/2017 5:02:27 PM BG Collected: 09/11/2017 Status: F Source: [employer] 3:25 PM [facility] REPOSITORY TYPE CODE TESTS RESULT OUT OF REFERENCE UNITS RANGE LAB PH(LOINC) 7.380-7.460 pH 7.440 LAB PCO2(LOINC 32.0-46.0 mmHg ) pCO2 High 50.4 LAB PO2(LOINC) 74.0-108.0 mmHg pO2 87.5 LAB HCO3(LOINC 21.0-29.0 mmol/L ) HCO3 High 33.5 LAB TCO2(LOINC 22.0-30.0 mmol/L ) CO2 Totl High 35.0 LAB BE(LOINC) mmol/L Base Excess 8.3 LAB O2SAT(LOIN 92.0-96.0 % C) O2 Sat High 96.4 LAB BPRES(LOIN mmHg C) Barometric 741 Pressure Performed By: #### BG #### [place] [address] BG Collected: 09/11/2017 Status: F Source: [facility] 5:30 AM [facility] REPOSITORY TYPE CODE TESTS RESULT OUT OF REFERENCE UNITS RANGE LAB PH(LOINC) 7.380-7.460 pH 7.432 LAB PCO2(LOINC 32.0-46.0 mmHg ) pCO2 High 53.0 LAB PO2(LOINC) 74.0-108.0 mmHg Low pO2 72.5 LAB HCO3(LOINC 21.0-29.0 mmol/L ) HCO3 High 34.5 LAB TCO2(LOINC 22.0-30.0 mmol/L ) CO2 Totl High 36.2 LAB BE(LOINC) mmol/L Base Excess 9.1 LAB O2SAT(LOIN 92.0-96.0 % C) O2 Sat 94.2 LAB BPRES(LOIN mmHg C) Barometric 741 Pressure Performed By: #### BG #### [place] [address] BMP Collected: 09/11/2017 Status: F Source: [facility] 5:21 AM [facility] REPOSITORY TYPE CODE TESTS RESULT OUT OF REFERENCE UNITS RANGE LAB GLU(LOINC) 70-110 mg/dL High Glucose Level 239 LAB NA(LOINC) 136-145 mEq/L Sodium Level 142 LAB K(LOINC) 3.5-5.0 mEq/L Potassium Level 3.9 Result Comment: Specimen slightly hemolyzed. Results may be falsely elevated. LAB CL(LOINC) 98-110 mEq/L Chloride 99 LAB CO2(LOINC) 22-32 mEq/L CO2 32 LAB EBAL(LOINC) 4.0-15.0 mEq/L Electrolyte Balance 11.0 LAB BUN(LOINC) 8.0-22.0 mg/dL BUN High 72.0 LAB CRE(LOINC) 0.60-1.40 mg/dL Creatinine Lvl High (s) 5.12 LAB BC(LOINC) 10.0-22.0 ratio BUN/Creatinine Ratio 14.1 LAB CA(LOINC) 8.4-10.1 mg/dL Calcium Lvl 9.4 Performed By: #### CBC, BMP, GFR, ANEU, ADIFF #### [place] [address] .GFR Collected: 09/11/2017 Status: F Source: [facility] 5:21 AM [facility] TYPE CODE TESTS RESULT OUT OF REFERENCE UNITS RANGE LAB GFRAA(LOINC ml/min/1.73 ) sqm GFR 16 [place] Result Comment: GFR Population mean for , Non- Americans Ages 20-29 = 116 mL/min/1.73 sq.m. Ages 30-39 = 107 mL/min/1.73 sq.m. Ages 40-49 = 99 mL/min/1.73 sq.m. Ages 50-59 = 93 mL/min/1.73 sq.m. Ages 60-69 = 85 mL/min/1.73 sq.m. Ages 70+ = 75 mL/min/1.73 sq.m. Chronic Kidney Disease: Less than 60 mL/min/1.73 square meters End Stage Renal Disease: Less than 15 mL/min/1.73 square meters LAB GFRNO(LOINC) ml/min/1.73sqm GFR Non- 13 Result Comment: GFR Population mean for , Non- Americans Ages 20-29 = 116 mL/min/1.73 sq.m. Ages 30-39 = 107 mL/min/1.73 sq.m. Ages 40-49 = 99 mL/min/1.73 sq.m. Ages 50-59 = 93 mL/min/1.73 sq.m. Ages 60-69 = 85 mL/min/1.73 sq.m. Ages 70+ = 75 mL/min/1.73 sq.m. Chronic Kidney Disease: Less than 60 mL/min/1.73 square meters End Stage Renal Disease: Less than 15 mL/min/1.73 square meters Performed By: #### CBC, BMP, GFR, ANEU, ADIFF #### [address] [address] CBC Collected: 09/11/2017 Status: F Source: [facility] 5:21 AM [facility] REPOSITORY TYPE CODE TESTS RESULT OUT OF REFERENCE UNITS RANGE LAB WBC(LOINC) 4.50-10.80 10 3/mcL High WBC 21.10 LAB RBCCT(LOINC 4.50-6.00 10 6/mcL ) Low RBC 2.89 LAB HGB(LOINC) 13.0-17.5 G/dL Low Hgb 8.7 LAB HCT(LOINC) 40.0-52.0 % Low Hct 26.2 LAB MCV(LOINC) 81.0-100.0 fL MCV 90.4 LAB MCH(LOINC) 27.0-33.0 pg MCH 29.9 LAB MCHC(LOINC) 32.0-36.0 G/dL MCHC 33.1 LAB RDW(LOINC) 11.5-15.5 % High RDW 18.2 LAB PLT(LOINC) 150-450 10 3/mcL Platelet 185 LAB MPV(LOINC) 6.4-10.5 fL MPV 9.7 Performed By: #### CBC, BMP, GFR, ANEU, ADIFF #### [address] [address] .AUTO DIFF Collected: 09/11/2017 Status: F Source: [facility] [employer] 5:21 AM [facility] REPOSITORY TYPE CODE TESTS RESULT OUT OF REFERENCE UNITS RANGE LAB JUAN A(LOINC) 50.0-75.0 % High Neutrophil % 80.0 LAB LYM(LOINC) 20.0-40.0 % Low Lymphocyte % 7.1 LAB MON(LOINC) 2.0-13.0 % Monocyte % 11.0 LAB EO(LOINC) 0.0-6.0 % Eosinophil % 1.4 LAB BAS(LOINC) 0.0-2.5 % Basophil % 0.5 LAB ABLYM(LOIN 0.90-4.32 10 3/mcL C) Lymphocyte, 1.50 Absolute LAB ALESSANDRA(LOINC 0.09-1.40 10 3/mcL ) High Monocyte, 2.30 Absolute LAB AEOS(LOINC 0.00-0.65 10 3/mcL ) Eosinophil, 0.30 Absolute LAB ABAS(LOINC 0.00-0.27 10 3/mcL ) Basophil, 0.10 Absolute Performed By: #### CBC, BMP, GFR, ANEU, ADIFF #### [place] [address] .NEUABS Collected: 09/11/2017 Status: F Source: [facility] 5:21 AM [facility] REPOSITORY TYPE CODE TESTS RESULT OUT OF REFERENCE UNITS RANGE LAB ANEU(LOINC) 2.25-8.10 10 3/mcL High Neutrophil, 16.90 Absolute Performed By: #### CBC, BMP, GFR, ANEU, ADIFF #### [place] [address] Observed: 09/11/2017 Status: F Source: [facility] 5:21 AM [facility] REPOSITORY . MICRO - Microbiology PROCEDURE: Blood Culture (bacterial) [*1] SOURCE: Blood BODY SITE: COLLECTED DATE/TIME: 09/11/2017 05:21 EDT RECEIVED DATE/TIME: 09/11/2017 08:03 EDT START DATE/TIME: 09/11/2017 08:03 EDT FREE TEXT SOURCE: FINAL REPORTS Final Report [] Verified Date/Time/Personnel: 09/16/2017 08:59 EDT Blood Culture: No Growth at 5 days. PRELIMINARY REPORTS Preliminary Report [] Verified Date/Time/Personnel: 09/11/2017 08:59 EDT Culture has been received in lab and is no growth to date. Routine cultures are held for 5 days. Performing Locations *1: This test was performed at: [address], [address]- , [place] Performed By: #### CBL #### [address] [address] Observed: 09/11/2017 Status: F Source: [facility] 5:21 AM [facility] REPOSITORY . MICRO - Microbiology PROCEDURE: Blood Culture (bacterial) [*1] SOURCE: Blood BODY SITE: COLLECTED DATE/TIME: 09/11/2017 05:21 EDT RECEIVED DATE/TIME: 09/11/2017 08:03 EDT START DATE/TIME: 09/11/2017 08:03 EDT FREE TEXT SOURCE: FINAL REPORTS Final Report [] Verified Date/Time/Personnel: 09/24/2017 09:49 EDT Staphylococcus coagulase negative Isolated from aerobe and anaerobe bottles. 1 set of 2 positive. Organism is a potential contaminate. Clinical significance undetermined. [facility]up is required. PRELIMINARY REPORTS Preliminary Report [] Verified Date/Time/Personnel: 09/16/2017 09:49 EDT Staphylococcus coagulase negative Isolated from aerobe and anaerobe bottles. 1 set of 2 positive. Organism is a potential contaminate. Clinical significance undetermined. [facility]up is required. Preliminary Report [] Verified Date/Time/Personnel: 09/14/2017 10:09 EDT Staphylococcus coagulase negative Isolated from aerobe bottle only. Final identification and BRUNO to follow. Preliminary Report [] Verified Date/Time/Personnel: 09/11/2017 08:59 EDT Culture has been received in lab and is no growth to date. Routine cultures are held for 5 days. STAINS GSANA [] Verified Date/Time/Personnel: 09/14/2017 07:05 EDT Gram Positive Cocci in clusters GSAER [] Verified Date/Time/Personnel: 09/13/2017 03:57 EDT Gram Positive Cocci in clusters Performing Locations *1: This test was performed at: [facility], [address] [place] [address], [id number] , [facility] Performed By: #### CBL #### [address] [address] [address] ABDOMEN/PELVIS W/ORAL Observed: 09/10/2017 Status: F Source: [facility] 9:00 PM HEALTH [facility] REPOSITORY ORIGINAL Clinical history: Abdomen distention and pain. Hematuria. COMPARISON: CT scan of the abdomen and pelvis on September 04, 2017. Axial scans were obtained through the abdomen and pelvis. Intravenous contrast was not given for this examination. Enteric contrast was given prior to the exam. The scans were reviewed in axial, coronal , and sagittal planes. This exam was performed according to our departmental dose optimization program, and includes the following measures where applicable: automated exposure control, adjustment of th e mAs and/or kVp according to patient size and/or exam, and an iterative reconstruction algorithm.. There are small bilateral pleural effusions that are new compared to the previous exam. Associated bilateral basilar infiltrates have developed as well. The liver, pancreas, spleen, adrenal glands, kidneys, abdominal aorta, and inferior vena cava show no sign of acute abnormality. There are numerous parenchymal calcifications in both kidneys. There is n o collecting system stone or hydronephrosis on either side. The dilatation of the collecting systems seen on previous exam is no longer present. There is no intestinal obstruction or inflammation. Rectus diastasis in the upper abdomen is noted. There is no abnormal fluid collection in the abdomen. Scans through the pelvis show the suprapubic catheter in the urinary bladder. The bladder is empty. The blood that was previously seen in the urinary bladder on previous exam has been evacuated. There is no pelvic mass or abnormal fluid collection or signs of inflammation. IMPRESSION: Development of new bilateral basilar infiltrates with small pleural effusions. Infiltrates are likely atelectasis, but pneumonia cannot be excluded. No acute abnormality of the abdomen and pelvis. The dilatation of collecting systems of both kidneys has resolved and the blood is no longer seen in the urinary bladder. Interpreted By: Hardeep Zheng MD Preliminary Report By: Hardeep Zheng MD Electronically Signed By: Hardeep Zheng MD Dictated Date: 09/11/2017 1:49:32 AM Prelim Date: 09/11/2017 1:49:32 AM Sign Date: 09/11/2017 1:55:22 AM CBC Collected: 09/10/2017 Status: F Source: [facility] 8:46 AM [facility] REPOSITORY Order Comment: Please recollect; both specimens clotted. 09/10/2017 08:08:16 EDT. TYPE CODE TESTS RESULT OUT OF REFERENCE UNITS RANGE LAB WBC(LOINC) 4.50-10.80 10 3/mcL High WBC 20.00 LAB RBCCT(LOINC 4.50-6.00 10 6/mcL ) Low RBC 2.93 LAB HGB(LOINC) 13.0-17.5 G/dL Low Hgb 8.7 LAB HCT(LOINC) 40.0-52.0 % Low Hct 26.2 LAB MCV(LOINC) 81.0-100.0 fL MCV 89.6 LAB MCH(LOINC) 27.0-33.0 pg MCH 29.9 LAB MCHC(LOINC) 32.0-36.0 G/dL MCHC 33.3 LAB RDW(LOINC) 11.5-15.5 % High RDW 18.5 LAB PLT(LOINC) 150-450 10 3/mcL Platelet 179 LAB MPV(LOINC) 6.4-10.5 fL MPV 9.4 Performed By: #### CBC, DIFF, MORPH, BMP, GFR #### [place] [address] .MANUAL DIFF Collected: 09/10/2017 Status: F Source: [facility] 8:46 AM [facility] REPOSITORY TYPE CODE TESTS RESULT OUT OF REFERENCE UNITS RANGE LAB LIMIT(LOIN C) Cells Counted 100 LAB NEUM(LOINC 50.0-75.0 % ) High Neutrophil %, 80.0 Manual LAB LYMM(LOINC 20.0-40.0 % ) Low Lymphocyte %, 7.0 Manual LAB EOM(LOINC) 2.0-13.0 % Monocyte %, Manual 5.0 Result Comment: 4.0 LAB BASM(LOINC) 0.0-2.5 % Basophil %, Manual 0.0 LAB BAND(LOINC) 0.0-5.0 % Bands 1.0 LAB META(LOINC) % Metamyelocyte 1.0 LAB MYEL(LOINC) % Myelocyte 2.0 LAB ANEUM(LOINC) 2.25-8.10 10 3/mcL Neutrophil, Abs High Manual 16.20 LAB ABLYMM(LOINC) 0.90-4.32 10 3/mcL Lymphocyte, Abs Manual 1.40 LAB AMONM(LOINC) 0.09-1.40 10 3/mcL Monocyte, Abs Manual 1.00 LAB AEOSM(LOINC) 0.00-0.65 10 3/mcL Eosinophil, Abs High Manual 0.80 LAB ABASM(LOINC) 0.00-0.27 10 3/mcL Basophil, Abs Manual 0.00 Performed By: #### CBC, DIFF, MORPH, BMP, GFR #### [address] [address] .MORPH Collected: 09/10/2017 Status: F Source: [facility] 8:46 AM [facility] REPOSITORY TYPE CODE TESTS RESULT OUT OF REFERENCE UNITS RANGE LAB PLTE(LOINC ) Platelet Estimate Normal LAB ANIS(LOINC ) Anisocytosis Slight LAB POIK(LOINC ) Poik Slight LAB POLC(LOINC ) Polychrom Slight Performed By: #### CBC, DIFF, MORPH, BMP, GFR #### [address] [address] .GFR Collected: 09/10/2017 Status: F Source: [facility] 7:46 AM [facility] REPOSITORY TYPE CODE TESTS RESULT OUT OF REFERENCE UNITS RANGE LAB GFRAA(LOINC ml/min/1.73 ) sqm GFR 17 [place] Result Comment: GFR Population mean for , Non- Americans Ages 20-29 = 116 mL/min/1.73 sq.m. Ages 30-39 = 107 mL/min/1.73 sq.m. Ages 40-49 = 99 mL/min/1.73 sq.m. Ages 50-59 = 93 mL/min/1.73 sq.m. Ages 60-69 = 85 mL/min/1.73 sq.m. Ages 70+ = 75 mL/min/1.73 sq.m. Chronic Kidney Disease: Less than 60 mL/min/1.73 square meters End Stage Renal Disease: Less than 15 mL/min/1.73 square meters LAB GFRNO(LOINC) ml/min/1.73sqm GFR Non- 14 Result Comment: GFR Population mean for , Non- Americans Ages 20-29 = 116 mL/min/1.73 sq.m. Ages 30-39 = 107 mL/min/1.73 sq.m. Ages 40-49 = 99 mL/min/1.73 sq.m. Ages 50-59 = 93 mL/min/1.73 sq.m. Ages 60-69 = 85 mL/min/1.73 sq.m. Ages 70+ = 75 mL/min/1.73 sq.m. Chronic Kidney Disease: Less than 60 mL/min/1.73 square meters End Stage Renal Disease: Less than 15 mL/min/1.73 square meters Performed By: #### CBC, DIFF, MORPH, BMP, GFR #### [address] [address] BMP Collected: 09/10/2017 Status: F Source: [facility] 7:46 AM [facility] REPOSITORY TYPE CODE TESTS RESULT OUT OF REFERENCE UNITS RANGE LAB GLU(LOINC) 70-110 mg/dL Glucose High Level 161 LAB NA(LOINC) 136-145 mEq/L Sodium Level 143 LAB K(LOINC) 3.5-5.0 mEq/L Low Potassium Level 3.3 LAB CL(LOINC) 98-110 mEq/L Chloride 101 LAB CO2(LOINC) 22-32 mEq/L CO2 28 LAB EBAL(LOINC 4.0-15.0 mEq/L ) Electrolyte Balance 14.0 LAB BUN(LOINC) 8.0-22.0 mg/dL BUN High 63.0 LAB CRE(LOINC) 0.60-1.40 mg/dL Creatinine High Lvl (s) 4.81 LAB BC(LOINC) 10.0-22.0 ratio BUN/Creatinine 13.1 Ratio LAB CA(LOINC) 8.4-10.1 mg/dL Calcium Lvl 8.8 Performed By: #### CBC, DIFF, MORPH, BMP, GFR #### [address] [address] Observed: 09/09/2017 Status: F Source: [facility] 11:37 AM [facility] REPOSITORY . MICRO - Microbiology PROCEDURE: Legionella Urine Ag [*1] SOURCE: Urine BODY SITE: COLLECTED DATE/TIME: 09/09/2017 11:37 EDT RECEIVED DATE/TIME: 09/09/2017 11:43 EDT START DATE/TIME: 09/09/2017 11:43 EDT FREE TEXT SOURCE: FINAL REPORTS Final Report [] Verified Date/Time/Personnel: 09/09/2017 12:10 EDT Presumptive negative for L. pneumophila serogroup 1 antigen in urine, suggesting no recent or current infection. Legionnaire's disease cannot be ruled out since other serogroups and species may also cause disease. Performing Locations *1: This test was performed at: [address], [address] [place] [address] Performed By: #### CATRACHITA #### [place] [address] Observed: 09/09/2017 Status: F Source: [facility] 11:37 AM [facility] REPOSITORY . MICRO - Microbiology PROCEDURE: Streptococcus Pneumoniae Urine Antig [1 *1] SOURCE: Urine, Franco Catheter BODY SITE: COLLECTED DATE/TIME: 09/09/2017 11:37 EDT RECEIVED DATE/TIME: 09/09/2017 11:43 EDT START DATE/TIME: 09/09/2017 11:43 EDT FREE TEXT SOURCE: FINAL REPORTS Final Report [] Verified Date/Time/Personnel: 09/09/2017 12:10 EDT Presumptive negative for pneumococcal pneumonia, suggesting no current or recent pneumococcal infection. Infection due to Strep pneumoniae cannot be ruled out since the antigen present in the sample may be below the detection limit of the test. Interpretive Data 1: Streptococcus Pneumoniae Urine Antig This test has not been evaluated on patients taking antibiotics for greater than 24 hours or on patients who have recently completed an antibiotic regimen. The accuracy of this test has not been proven in young children. Performing Locations *1: This test was performed at: [facility], [address] [place] [address] Performed By: #### NOEL #### [place] [address] MYCO Collected: 09/09/2017 Status: F Source: [facility] 10:58 AM [facility] REPOSITORY TYPE CODE TESTS RESULT OUT OF REFERENCE UNITS RANGE LAB [id number](LOINC) Mycoplasma IgM Negative Result Comment: INTERPRETATION OF MYCOPLASMA BY EIA (Effective 06/24/04): Negative No detectable antibodies to M. pneumoniae. Indicates absence of current or previous infection. Positive Reactive for antibodies to M. pneumoniae. Indicates a past or recent infection. Equivocal Equivocal for antibodies to M. pneumoniae. Repeat testing by an alternate method suggested. LAB [id number](LOINC) Mycoplasma IgG Neg Result Comment: INTERPRETATION OF MYCOPLASMA BY EIA (Effective 06/24/04): Negative No detectable antibodies to M. pneumoniae. Indicates absence of current or previous infection. Positive Reactive for antibodies to M. pneumoniae. Indicates a past or recent infection. Equivocal Equivocal for antibodies to M. pneumoniae. Repeat testing by an alternate method suggested. Performed By: #### MYCO #### [facility] [address] [place] [address] XR CHEST 1 VIEW Observed: 09/09/2017 Status: F Source: [facility] 5:14 AM [facility] REPOSITORY ORIGINAL XR CHEST 1 VIEW PORTABLE AP UPRIGHT DATE AND TIME: 09/09/2017 6:33 AM CLINICAL STATEMENT: dyspnea COMPARISON: 09/08/2017 FINDINGS: The cardiomediastinal contours are normal. Multi lumen left jugular central line remains in place. Moderate ill-defined left mid and lower lung airspace opacities are unchanged. Curvilinear op acity in the right lung base is also stable, along with a few streaky opacities in the right upper lung. No obvious effusion or pneumothorax. IMPRESSION: Persistent bilateral atelectasis/infiltrate, left greater than right. Interpreted By: Gelacio Pelaez MD Preliminary Report By: Gelacio Pelaez MD Electronically Signed By: Gelacio Pelaez MD Dictated Date: 09/09/2017 7:34:54 AM Prelim Date: 09/09/2017 7:34:54 AM Sign Date: 09/09/2017 7:37:14 AM CBC Collected: 09/09/2017 Status: F Source: [facility] 4:23 AM [facility] REPOSIT[facility] TYPE CODE TESTS RESULT OUT OF REFERENCE UNITS RANGE LAB WBC(LOINC) 4.50-10.80 10 3/mcL High WBC 14.60 LAB RBCCT(LOINC 4.50-6.00 10 6/mcL ) Low RBC 2.89 LAB HGB(LOINC) 13.0-17.5 G/dL Low Hgb 8.8 LAB HCT(LOINC) 40.0-52.0 % Low Hct 25.8 LAB MCV(LOINC) 81.0-100.0 fL MCV 89.2 LAB MCH(LOINC) 27.0-33.0 pg MCH 30.3 LAB MCHC(LOINC) 32.0-36.0 G/dL MCHC 34.0 LAB RDW(LOINC) 11.5-15.5 % High RDW 17.9 LAB PLT(LOINC) 150-450 10 3/mcL Platelet 150 LAB MPV(LOINC) 6.4-10.5 fL MPV 9.6 Performed By: #### DIFF, BMP, CBC, GFR, MORPH #### [address] [address] BMP Collected: 09/09/2017 Status: F Source: [facility] 4:23 AM [facility]POSIT[facility] TYPE CODE TESTS RESULT OUT OF REFERENCE UNITS RANGE LAB GLU(LOINC) 70-110 mg/dL Glucose High Level 210 LAB NA(LOINC) 136-145 mEq/L Sodium Level 143 LAB K(LOINC) 3.5-5.0 mEq/L Potassium Level 3.5 LAB CL(LOINC) 98-110 mEq/L Chloride 100 LAB CO2(LOINC) 22-32 mEq/L CO2 28 LAB EBAL(LOINC 4.0-15.0 mEq/L ) Electrolyte Balance 15.0 LAB BUN(LOINC) 8.0-22.0 mg/dL BUN High 62.0 LAB CRE(LOINC) 0.60-1.40 mg/dL Creatinine High Lvl (s) 4.81 LAB BC(LOINC) 10.0-22.0 ratio BUN/Creatinine 12.9 Ratio LAB CA(LOINC) 8.4-10.1 mg/dL Low Calcium Lvl 7.7 Performed By: #### DIFF, BMP, CBC, GFR, MORPH #### [address] [address] .GFR Collected: 09/09/2017 Status: F Source: [facility] 4:23 AM [facility]POS[facility] TYPE CODE TESTS RESULT OUT OF REFERENCE UNITS RANGE LAB GFRAA(LOINC ml/min/1.73 ) sqm GFR 17 [place] Result Comment: GFR Population mean for , Non- Americans Ages 20-29 = 116 mL/min/1.73 sq.m. Ages 30-39 = 107 mL/min/1.73 sq.m. Ages 40-49 = 99 mL/min/1.73 sq.m. Ages 50-59 = 93 mL/min/1.73 sq.m. Ages 60-69 = 85 mL/min/1.73 sq.m. Ages 70+ = 75 mL/min/1.73 sq.m. Chronic Kidney Disease: Less than 60 mL/min/1.73 square meters End Stage Renal Disease: Less than 15 mL/min/1.73 square meters LAB GFRNO(LOINC) ml/min/1.73sqm GFR Non- 14 Result Comment: GFR Population mean for , Non- Americans Ages 20-29 = 116 mL/min/1.73 sq.m. Ages 30-39 = 107 mL/min/1.73 sq.m. Ages 40-49 = 99 mL/min/1.73 sq.m. Ages 50-59 = 93 mL/min/1.73 sq.m. Ages 60-69 = 85 mL/min/1.73 sq.m. Ages 70+ = 75 mL/min/1.73 sq.m. Chronic Kidney Disease: Less than 60 mL/min/1.73 square meters End Stage Renal Disease: Less than 15 mL/min/1.73 square meters Performed By: #### DIFF, BMP, CBC, GFR, MORPH #### [place] [address] .MANUAL DIFF Collected: 09/09/2017 Status: F Source: [facility] 4:23 AM [facility] REPOSIT[facility] TYPE CODE TESTS RESULT OUT OF REFERENCE UNITS RANGE LAB LIMIT(LOIN C) Cells Counted 100 LAB NEUM(LOINC 50.0-75.0 % ) High Neutrophil %, 78.0 Manual LAB LYMM(LOINC 20.0-40.0 % ) Low Lymphocyte %, 8.0 Manual LAB EOM(LOINC) 2.0-13.0 % Monocyte %, Manual 11.0 Result Comment: 1.0 LAB BASM(LOINC) 0.0-2.5 % Basophil %, Manual 0.0 LAB META(LOINC) % Metamyelocyte 1.0 LAB MYEL(LOINC) % Myelocyte 1.0 LAB ANEUM(LOINC) 2.25-8.10 10 3/mcL Neutrophil, Abs High Manual 11.39 LAB ABLYMM(LOINC) 0.90-4.32 10 3/mcL Lymphocyte, Abs Manual 1.17 LAB AMONM(LOINC) 0.09-1.40 10 3/mcL Monocyte, Abs High Manual 1.61 LAB AEOSM(LOINC) 0.00-0.65 10 3/mcL Eosinophil, Abs Manual 0.15 LAB ABASM(LOINC) 0.00-0.27 10 3/mcL Basophil, Abs Manual 0.00 Performed By: #### DIFF, BMP, CBC, GFR, MORPH #### [place] [address] .MORPH Collected: 09/09/2017 Status: F Source: [facility] 4:23 AM [facility] TYPE CODE TESTS RESULT OUT OF REFERENCE UNITS RANGE LAB PLTE(LOINC ) Platelet Estimate Normal LAB ANIS(LOINC ) Anisocytosis Slight LAB POLC(LOINC ) Polychrom Slight LAB TGR(LOINC) Toxic Gran Slight LAB DOHL(LOINC ) Dohle Bodies Few Performed By: #### DIFF, BMP, CBC, GFR, MORPH #### [place] [address] HGB Collected: 09/08/2017 Status: F Source: [facility] 2:40 PM [facility] Order Comment: Follow after 1 unit RBC TYPE CODE TESTS RESULT OUT OF RANGE REFERENCE UNITS LAB HGB(LOINC) 13.0-17.5 G/dL Low Hgb 8.2 Performed By: #### HGB #### [place] [address] TABO Collected: 09/08/2017 Status: F Source: [facility] 7:44 AM [facility] TYPE CODE TESTS RESULT OUT OF RANGE REFERENCE UNITS LAB ABORH(LOINC ) Unknown ABO/Rh O POS Interp Performed By: #### ABORH, ANTIS #### [place] [address] TABS Collected: 09/08/2017 Status: F Source: [facility] 7:44 AM [facility] TYPE CODE TESTS RESULT OUT OF REFERENCE UNITS RANGE LAB ANST(LOINC ) Antibody Negative ABSC Screen Tango Performed By: #### ABORH, ANTIS #### [place] [address] RBC (PRODUCT) Collected: 09/08/2017 Status: F Source: [facility] 5:57 AM [facility] TYPE CODE TESTS RESULT OUT OF REFERENCE UNITS RANGE LAB RBCPR(LOINC ) RBC Product RBC Ready Ready for Pickup Performed By: #### RBCP #### [address] [address] XR CHEST 1 VIEW Observed: 09/08/2017 Status: F Source: [facility] 5:13 AM [facility] REPOS[facility] ORIGINAL XR CHEST 1 VIEW PORTABLE AP UPRIGHT DATE AND TIME: 09/08/2017 6:44 AM CLINICAL STATEMENT: Dyspnea COMPARISON: 09/07/2017 FINDINGS: Lordotic projection was obtained. Depth of inspiration remains decreased with crowding of the bronchovascular markings. Left jugular dialysis catheter is now present with tip in the right atri um. Heart size appears normal. Increasing opacity is present in the left lung. Curvilinear band is present in the right lower lung. No pneumothorax. IMPRESSION: Limited inspiration. Developing left lung infiltrate and/or effusion. Discoid atelectasis right lung base. Interpreted By: Gelacio Pelaez MD Preliminary Report By: Gelacio Pelaez MD Electronically Signed By: Gelacio Pelaez MD Dictated Date: 09/08/2017 7:56:05 AM Prelim Date: 09/08/2017 7:56:05 AM Sign Date: 09/08/2017 7:58:49 AM MG Collected: 09/08/2017 Status: F Source: [facility] 4:41 AM [facility] TYPE CODE TESTS RESULT OUT OF REFERENCE UNITS RANGE LAB MG(LOINC) 1.6-2.4 mg/dL Magnesium Lvl 2.3 Performed By: #### BMP, GFR, MORPH, ADIFF, MG, ANEU, CBC #### [address] [address] CBC Collected: 09/08/2017 Status: F Source: [facility] 4:41 AM [facility] REPOSITORY TYPE CODE TESTS RESULT OUT OF RANGE REFERENCE UNITS LAB WBC(LOINC) 4.50-10.80 10 3/mcL High WBC 11.10 LAB RBCCT(LOIN 4.50-6.00 10 6/mcL C) Low RBC 2.31 LAB HGB(LOINC) 13.0-17.5 G/dL Abnormal Alert Hgb 6.9 LAB HCT(LOINC) 40.0-52.0 % Low Hct 20.9 LAB MCV(LOINC) 81.0-100.0 fL MCV 90.6 LAB MCH(LOINC) 27.0-33.0 pg MCH 30.0 LAB MCHC(LOINC 32.0-36.0 G/dL ) MCHC 33.1 LAB RDW(LOINC) 11.5-15.5 % High RDW 19.4 LAB PLT(LOINC) 150-450 10 3/mcL Platelet 158 LAB MPV(LOINC) 6.4-10.5 fL MPV 9.7 Performed By: #### BMP, GFR, MORPH, ADIFF, MG, ANEU, CBC #### [place] [address] .GFR Collected: 09/08/2017 Status: F Source: [facility] 4:41 AM [facility] REPOSITORY TYPE CODE TESTS RESULT OUT OF REFERENCE UNITS RANGE LAB GFRAA(LOINC ml/min/1.73 ) sqm GFR 17 [place] Result Comment: GFR Population mean for , Non- Americans Ages 20-29 = 116 mL/min/1.73 sq.m. Ages 30-39 = 107 mL/min/1.73 sq.m. Ages 40-49 = 99 mL/min/1.73 sq.m. Ages 50-59 = 93 mL/min/1.73 sq.m. Ages 60-69 = 85 mL/min/1.73 sq.m. Ages 70+ = 75 mL/min/1.73 sq.m. Chronic Kidney Disease: Less than 60 mL/min/1.73 square meters End Stage Renal Disease: Less than 15 mL/min/1.73 square meters LAB GFRNO(LOINC) ml/min/1.73sqm GFR Non- 14 Result Comment: GFR Population mean for , Non- Americans Ages 20-29 = 116 mL/min/1.73 sq.m. Ages 30-39 = 107 mL/min/1.73 sq.m. Ages 40-49 = 99 mL/min/1.73 sq.m. Ages 50-59 = 93 mL/min/1.73 sq.m. Ages 60-69 = 85 mL/min/1.73 sq.m. Ages 70+ = 75 mL/min/1.73 sq.m. Chronic Kidney Disease: Less than 60 mL/min/1.73 square meters End Stage Renal Disease: Less than 15 mL/min/1.73 square meters Performed By: #### BMP, GFR, MORPH, ADIFF, MG, ANEU, CBC #### [address] [address] BMP Collected: 09/08/2017 Status: F Source: [facility] 4:41 AM [facility] REPOSITORY TYPE CODE TESTS RESULT OUT OF REFERENCE UNITS RANGE LAB GLU(LOINC) 70-110 mg/dL Glucose High Level 292 LAB NA(LOINC) 136-145 mEq/L Sodium Level 136 LAB K(LOINC) 3.5-5.0 mEq/L Potassium Level 3.9 LAB CL(LOINC) 98-110 mEq/L Chloride 100 LAB CO2(LOINC) 22-32 mEq/L CO2 25 LAB EBAL(LOINC 4.0-15.0 mEq/L ) Electrolyte Balance 11.0 LAB BUN(LOINC) 8.0-22.0 mg/dL BUN High 71.0 LAB CRE(LOINC) 0.60-1.40 mg/dL Creatinine High Lvl (s) 4.76 LAB BC(LOINC) 10.0-22.0 ratio BUN/Creatinine 14.9 Ratio LAB CA(LOINC) 8.4-10.1 mg/dL Low Calcium Lvl 8.1 Performed By: #### BMP, GFR, MORPH, ADIFF, MG, ANEU, CBC #### [place] [address] .AUTO DIFF Collected: 09/08/2017 Status: F Source: [facility] 4:41 AM [facility] REPOSITORY TYPE CODE TESTS RESULT OUT OF REFERENCE UNITS RANGE LAB JUAN A(LOINC) 50.0-75.0 % High Neutrophil % 77.6 LAB LYM(LOINC) 20.0-40.0 % Low Lymphocyte % 5.2 LAB MON(LOINC) 2.0-13.0 % Monocyte High % 16.6 LAB EO(LOINC) 0.0-6.0 % Eosinophil % 0.5 LAB BAS(LOINC) 0.0-2.5 % Basophil % 0.1 LAB ABLYM(LOIN 0.90-4.32 10 3/mcL C) Low Lymphocyte, 0.60 Absolute LAB ALESSANDRA(LOINC 0.09-1.40 10 3/mcL ) High Monocyte, 1.80 Absolute LAB AEOS(LOINC 0.00-0.65 10 3/mcL ) Eosinophil, 0.10 Absolute LAB ABAS(LOINC 0.00-0.27 10 3/mcL ) Basophil, 0.00 Absolute Performed By: #### BMP, GFR, MORPH, ADIFF, MG, ANEU, CBC #### [place] [id number] .MORPH Collected: 09/08/2017 Status: F Source: [facility] 4:41 AM [facility] REPOSITORY TYPE CODE TESTS RESULT OUT OF REFERENCE UNITS RANGE LAB PLTE(LOINC ) Platelet Estimate Normal LAB ANIS(LOINC ) Anisocytosis Slight LAB POIK(LOINC ) Poik Slight LAB POLC(LOINC ) Polychrom Slight LAB TEAR(LOINC ) Tear Cell Rare LAB DOHL(LOINC ) Dohle Bodies Few Performed By: #### BMP, GFR, MORPH, ADIFF, MG, ANEU, CBC #### [place] [address] .NEUABS Collected: 09/08/2017 Status: F Source: [facility] 4:41 AM [facility] REPOSITORY TYPE CODE TESTS RESULT OUT OF REFERENCE UNITS RANGE LAB ANEU(LOINC) 2.25-8.10 10 3/mcL High Neutrophil, 8.60 Absolute Performed By: #### BMP, GFR, MORPH, ADIFF, MG, ANEU, CBC #### [place] [address] Observed: 09/08/2017 Status: F Source: [facility] 4:41 AM [facility] REPOSITORY . MICRO - Microbiology PROCEDURE: Blood Culture (bacterial) [*1] SOURCE: Blood BODY SITE: Anticubital, Right COLLECTED DATE/TIME: 09/08/2017 04:41 EDT RECEIVED DATE/TIME: 09/08/2017 11:42 EDT START DATE/TIME: 09/08/2017 11:42 EDT FREE TEXT SOURCE: FINAL REPORTS Final Report [] Verified Date/Time/Personnel: 09/11/2017 07:55 EDT Serratia marcescens Isolated from aerobe bottle only. Refer to previous culture for susceptibility. [id number], collected 09-06-17 PRELIMINARY REPORTS Preliminary Report [] Verified Date/Time/Personnel: 09/08/2017 12:59 EDT Culture has been received in lab and is no growth to date. Routine cultures are held for 5 days. STAINS GSAER [] Verified Date/Time/Personnel: 09/10/2017 03:40 EDT Gram Negative Rods Performing Locations *1: This test was performed at: [facility], [address] [place] [address], [address] [place] [address] Performed By: #### CBL #### [address] [address] Observed: 09/08/2017 Status: F Source: [facility] 4:41 AM [facility] REPOSITORY . MICRO - Microbiology PROCEDURE: Blood Culture (bacterial) [*1] SOURCE: Blood BODY SITE: Anticubital, Left COLLECTED DATE/TIME: 09/08/2017 04:41 EDT RECEIVED DATE/TIME: 09/08/2017 11:42 EDT START DATE/TIME: 09/08/2017 11:42 EDT FREE TEXT SOURCE: FINAL REPORTS Final Report [] Verified Date/Time/Personnel: 09/12/2017 07:51 EDT Serratia marcescens Isolated from anaerobe bottle only. Refer to previous culture for susceptibility. [id number]. PRELIMINARY REPORTS Preliminary Report [] Verified Date/Time/Personnel: 09/08/2017 12:59 EDT Culture has been received in lab and is no growth to date. Routine cultures are held for 5 days. STAINS GSANA [] Verified Date/Time/Personnel: 09/11/2017 00:38 EDT Gram Negative Rods Performing Locations *1: This test was performed at: [facility], [address] [place] [address], [address] [place] [address] Performed By: #### CBL #### [place] [address] PTH Collected: 09/07/2017 Status: F Source: [facility] 4:02 PM [facility] REPOSITORY TYPE CODE TESTS RESULT OUT OF REFERENCE UNITS RANGE LAB PTH(LOINC) 18.5-88.0 pg/mL High PTH, Intact 134.2 Performed By: #### MARCIN, GBMBG, PTH, C3C4A #### [place] [address] MARCIN Collected: 09/07/2017 Status: F Source: [facility] 4:02 PM [facility] REPOSITORY TYPE CODE TESTS RESULT OUT OF RANGE REFERENCE UNITS LAB MARCIN(LOINC) Neg 40 MARCIN Neg 40 Performed By: #### MARCIN, GBMBG, PTH, C3C4A #### [facility] [address] [place] [address] [id number] Collected: 09/07/2017 Status: F Source: [facility] 4:02 PM [facility] REPOSITORY TYPE CODE TESTS RESULT OUT OF REFERENCE UNITS RANGE LAB C3A(LOINC) 79-152 mg/dL Low Complement C3A 34 LAB C4A(LOINC) 16-38 mg/dL Complement C4A 28 Performed By: #### MARCIN, GBMBG, PTH, C3C4A #### [facility] [address] [place] [id number] GLOM Collected: 09/07/2017 Status: F Source: [facility] 4:02 [facility] REPOSITORY TYPE CODE TESTS RESULT OUT OF RANGE REFERENCE UNITS LAB GLOM(LOINC) Glom Base <0.2 Mem Ab IgG Result Comment: Reference range: <1.0 Unit: AI (NOTE) Negative < 1.0 Positive Equal to or >1.0 This test is designed for the in vitro measurement of specific IgG auto antibodies against the glomerular basement membrane (GBM). It is intended as an aid in the diagnosis of [place] pasture's syndrome. Some patients with other renal diseases may exhibit positive results. Glomerular Basement Membrane antibodies are not found in normal healthy individuals. Results were obtained with the [employer] International[employer] multiplex assay. Values obtained from different manufacturers assays cannot be used interchangeable. The magnitude of the reported IgG levels cannot be correlated to an endpoint titer. Performed By: [facility] [address] [place] [id number] Test Worker: Karla Cervantes#: [id number] Phone#: Performed By: #### MARCIN, GBMBG, PTH, C3C4A #### [place] [id number] [place], [place] [address] US RENAL Observed: 09/07/2017 Status: F Source: [facility] 2:30 PM [facility] REPOSITORY ORIGINAL Ultrasound retroperitoneum Complete: Attention Urinary tract Clinical Statement: evaluate bladder/kidneys, , reevaluate hydronephrosis Comparison: Ultrasound 09/06/2017 The right and left kidneys measure 10.8 cm. and 9.2 cm. in length, respectively. Both kidneys show multiple areas of mild to moderate cortical scarring and calcification but is seen on previous CT. The right kidney shows no obvious pelvocaliectasis. There is suboptimal visualization of the left kidney. There seems to be mild left-sided pelvocaliectasis. The right kidney has a 2 cm cyst in its upper pole that was also seen earlier.. There is no free fluid seen in the abdomen. Urinary bladder is not visualized due to overlapping bandages in the suprapubic region.. Impression: Continued renal cortical scarring. There is mild left-sided pelvocaliectasis. No hydronephrosis is evident on the right side. Interpreted By: Zachery Salazar MD Preliminary Report By: Zachery Salazar MD Electronically Signed By: Zachery Salazar MD Dictated Date: 09/07/2017 4:14:58 PM Prelim Date: 09/07/2017 4:14:58 PM Sign Date: 09/07/2017 4:17:10 PM K Collected: 09/07/2017 Status: F Source: [facility] 12:45 PM [facility] REPOSITORY TYPE CODE TESTS RESULT OUT OF REFERENCE UNITS RANGE LAB K(LOINC) 3.5-5.0 mEq/L Potassium Level 5.0 Performed By: #### K #### [place] [address] PRO Collected: 09/07/2017 Status: F Source: [facility] 9:56 AM [facility] REPOSITORY TYPE CODE TESTS RESULT OUT OF REFERENCE UNITS RANGE LAB PT(LOINC) 9.0-14.5 seconds Protime 13.8 Result Comment: Effective 01/01/08, Protime results may be affected by some antibiotics (i.e. Ciprofloxacin, Azithromycin, Bactrim) which may potentiate the action of oral anticoagulants, with further increases in Protime/INR. LAB INR(LOINC) ratio PT International Ratio 1.2 Result Comment: The [place] [employer] (CHEST, 1992, 102:312S-25S) recommended therapeutic range for oral anticoagulant therapy is: LOW RISK: Prophylaxis of venous thrombosis INR: 2.0-3.0 Treatment of pulmonary embolism 2.0-3.0 Prevention of systemic embolism 2.0-3.0 HIGH RISK: Mechanical prosthetic valves 2.5-3.5 Performed By: #### PRO #### [facility] [address] [place] [address] IR TEMPORARY DIALYSIS Observed: 09/07/2017 Status: F Source: [facility] CATHETER 9:00 AM [facility] REPOSITORY ORIGINAL PROCEDURE: 1. Temporary hemodialysis catheter placement with fluoroscopy and ultrasound CLINICAL HISTORY: Acute kidney injury, patient requires dialysis Comparison: Portable upright chest 09/07/2017 MATERIALS UTILIZED: 14 Fr 24 cm SLX Hemo-Cath double lumen catheter Angled glidewire Probe cover Micropuncture set 2-0 Ethibond suture ANESTHESIA: Local FLUOROSCOPY: 11.6 minutes minutes AIR KERMA DOSE: 222.55 mGy SITE OF PUNCTURE: LEFT internal jugular vein PROCEDURE: The procedure, risks, and alternatives, were discussed with the patient and all questions were answered. Written informed consent obtained. Accompanying paperwork was verified for accuracy. Directed his tory and physical exam performed prior to the procedure. Medication reconciliation performed by nursing personnel. Procedure was performed using a cap, sterile gown, sterile gloves, a large sterile shee t, hand hygiene and 2% chlorhexidine for cutaneous antisepsis. The patient was positioned supine on the table and prepped and draped in usual sterile fashion. A critical pause was performed with assisti ng personnel just prior to the procedure with the patient's identity confirmed using 2 identifiers, confirming site and side. Preliminary ultrasound of the target vessel demonstrated a widely patent vein and an image was obtained. 2% lidocaine was administered at the puncture site for local anesthesia. A tiny skin incision was made. The vein was cannulated under direct sonographic guidance with a micropuncture set. Guidewire would not advance into the SVC from the RIGHT external jugular, therefore LEF T internal jugular was accessed. A wire was advanced into the IVC. After serial dilatation, the catheter was advanced over the wire under fluoroscopy. The wire was removed. Fluoroscopy demonstrated the catheter tip in mid right atrium. A final fluoroscopic image was obtained. All lumens were aspirated and flushed with saline. Sterile caps were attached to each lumen. The catheter was fixed to the skin with 2-0 Ethibond suture. IMPRESSION: Successful placement of a temporary hemodialysis catheter via the LEFT internal jugular vein with tip in mid right atrium. Procedure performed by Cassy Gaytan PA-C under the direct supervision of Elda Velez PA-C. I concur contents of this report. Interpreted By: Talya Ontiveros MD Preliminary Report By: Cassy Gaytan PA-C Electronically Signed By: Talya Ontiveros MD Dictated Date: 09/07/2017 3:57:38 PM Prelim Date: 09/07/2017 3:59:20 PM Sign Date: 09/07/2017 5:09:35 PM BMP Collected: 09/07/2017 Status: F Source: [facility] 7:55 AM [facility] REPOSITORY Order Comment: specimen hemolyzed please recollect TYPE CODE TESTS RESULT OUT OF RANGE REFERENCE UNITS LAB GLU(LOINC) 70-110 mg/dL High Glucose Level 257 LAB NA(LOINC) 136-145 mEq/L Low Sodium Level 133 LAB K(LOINC) 3.5-5.0 mEq/L Potassium Abnormal Level 6.5 Alert LAB CL(LOINC) 98-110 mEq/L Chloride 101 LAB CO2(LOINC) 22-32 mEq/L Low CO2 17 LAB EBAL(LOINC 4.0-15.0 mEq/L ) Electrolyte Balance 15.0 LAB BUN(LOINC) 8.0-22.0 mg/dL BUN Abnormal 105.0 Alert LAB CRE(LOINC) 0.60-1.40 mg/dL High Creatinine Lvl (s) 6.44 LAB BC(LOINC) 10.0-22.0 ratio BUN/Creatinine 16.3 Ratio LAB CA(LOINC) 8.4-10.1 mg/dL Calcium Lvl 8.9 Performed By: #### GFR, MORPH, DIFF, CBC, BMP #### [place] [address] .GFR Collected: 09/07/2017 Status: F Source: [facility] 7:55 AM [facility] REPOSITORY TYPE CODE TESTS RESULT OUT OF REFERENCE UNITS RANGE LAB GFRAA(LOINC ml/min/1.73 ) sqm GFR 12 [place] Result Comment: GFR Population mean for , Non- Americans Ages 20-29 = 116 mL/min/1.73 sq.m. Ages 30-39 = 107 mL/min/1.73 sq.m. Ages 40-49 = 99 mL/min/1.73 sq.m. Ages 50-59 = 93 mL/min/1.73 sq.m. Ages 60-69 = 85 mL/min/1.73 sq.m. Ages 70+ = 75 mL/min/1.73 sq.m. Chronic Kidney Disease: Less than 60 mL/min/1.73 square meters End Stage Renal Disease: Less than 15 mL/min/1.73 square meters LAB GFRNO(LOINC) ml/min/1.73sqm GFR Non- 10 Result Comment: GFR Population mean for , Non- Americans Ages 20-29 = 116 mL/min/1.73 sq.m. Ages 30-39 = 107 mL/min/1.73 sq.m. Ages 40-49 = 99 mL/min/1.73 sq.m. Ages 50-59 = 93 mL/min/1.73 sq.m. Ages 60-69 = 85 mL/min/1.73 sq.m. Ages 70+ = 75 mL/min/1.73 sq.m. Chronic Kidney Disease: Less than 60 mL/min/1.73 square meters End Stage Renal Disease: Less than 15 mL/min/1.73 square meters Performed By: #### GFR, MORPH, DIFF, CBC, BMP #### [place] [address] Observed: 09/07/2017 Status: F Source: [facility] 7:55 AM [facility] REPOSITORY . MICRO - Microbiology PROCEDURE: Blood Culture (bacterial) [*1] SOURCE: Blood BODY SITE: Anticubital, Right COLLECTED DATE/TIME: 09/07/2017 07:55 EDT RECEIVED DATE/TIME: 09/07/2017 08:30 EDT START DATE/TIME: 09/07/2017 08:30 EDT FREE TEXT SOURCE: FINAL REPORTS Final Report [] Verified Date/Time/Personnel: 09/09/2017 08:36 EDT Serratia marcescens Isolated from aerobe bottle only. Refer to previous culture for susceptibility. [id number], collected 09-06-17 PRELIMINARY REPORTS Preliminary Report [] Verified Date/Time/Personnel: 09/07/2017 10:00 EDT Culture has been received in lab and is no growth to date. Routine cultures are held for 5 days. STAINS GSAER [] Verified Date/Time/Personnel: 09/08/2017 04:17 EDT Gram Negative Rods Performing Locations *1: This test was performed at: [facility], [address] [place] [address], [facility]- , [facility] Performed By: #### CBL #### [address] [address] CBC Collected: 09/07/2017 Status: F Source: [facility] 5:56 AM [facility] [place] TYPE CODE TESTS RESULT OUT OF RANGE REFERENCE UNITS LAB WBC(LOINC) 4.50-10.80 10 3/mcL High WBC 11.70 Result Comment: Capillary or microtainer specimen received. LAB RBCCT(LOINC) 4.50-6.00 10 6/mcL Low RBC 2.63 LAB HGB(LOINC) 13.0-17.5 G/dL Low Hgb 7.9 LAB HCT(LOINC) 40.0-52.0 % Low Hct 23.7 LAB MCV(LOINC) 81.0-100.0 fL MCV 90.3 LAB MCH(LOINC) 27.0-33.0 pg MCH 30.2 LAB MCHC(LOINC) 32.0-36.0 G/dL MCHC 33.5 LAB RDW(LOINC) 11.5-15.5 % High RDW 19.1 LAB PLT(LOINC) 150-450 10 3/mcL Low Platelet 142 LAB MPV(LOINC) 6.4-10.5 fL MPV 10.5 Performed By: #### GFR, MORPH, DIFF, CBC, BMP #### [place] [address] .MANUAL DIFF Collected: 09/07/2017 Status: F Source: [facility] 5:56 AM [facility] REPOSITORY TYPE CODE TESTS RESULT OUT OF REFERENCE UNITS RANGE LAB LIMIT(LOIN C) Cells Counted 100 LAB NEUM(LOINC 50.0-75.0 % ) High Neutrophil %, 94.0 Manual LAB LYMM(LOINC 20.0-40.0 % ) Low Lymphocyte %, 1.0 Manual LAB EOM(LOINC) 2.0-13.0 % Monocyte %, Manual 4.0 Result Comment: 0.0 LAB BASM(LOINC) 0.0-2.5 % Basophil %, Manual 0.0 LAB BAND(LOINC) 0.0-5.0 % Bands 1.0 LAB ANEUM(LOINC) 2.25-8.10 10 3/mcL High Neutrophil, Abs Manual 11.12 LAB ABLYMM(LOINC) 0.90-4.32 10 3/mcL Low Lymphocyte, Abs Manual 0.12 LAB AMONM(LOINC) 0.09-1.40 10 3/mcL Monocyte, Abs Manual 0.47 LAB AEOSM(LOINC) 0.00-0.65 10 3/mcL Eosinophil, Abs Manual 0.00 LAB ABASM(LOINC) 0.00-0.27 10 3/mcL Basophil, Abs Manual 0.00 Performed By: #### GFR, MORPH, DIFF, CBC, BMP #### [place] [address] .MORPH Collected: 09/07/2017 Status: F Source: [facility] 5:56 AM [facility] REPOSITORY TYPE CODE TESTS RESULT OUT OF REFERENCE UNITS RANGE LAB PLTE(LOINC ) Platelet Estimate Slt Decreased LAB DCOMM(LOIN C) Differential See Below Comment Result Comment: Few vacuolated neutrophils seen. LAB ANIS(LOINC) Anisocytosis Slight LAB TGR(LOINC) Toxic Gran Slight LAB DOHL(LOINC) Dohle Bodies Few Performed By: #### GFR, MORPH, DIFF, CBC, BMP #### [place] [address] Observed: 09/07/2017 Status: F Source: [facility] 5:56 AM [facility] REPOSITORY . MICRO - Microbiology PROCEDURE: Blood Culture (bacterial) [*1] SOURCE: Blood BODY SITE: Anticubital, Left COLLECTED DATE/TIME: 09/07/2017 05:56 EDT RECEIVED DATE/TIME: 09/07/2017 08:42 EDT START DATE/TIME: 09/07/2017 08:43 EDT FREE TEXT SOURCE: FINAL REPORTS Final Report [] Verified Date/Time/Personnel: 09/09/2017 08:33 EDT Serratia marcescens Isolated from aerobe and anaerobe bottles. Refer to previous culture for susceptibility. [id number], collected 09-06-17 PRELIMINARY REPORTS Preliminary Report [] Verified Date/Time/Personnel: 09/07/2017 10:00 EDT Culture has been received in lab and is no growth to date. Routine cultures are held for 5 days. STAINS GSANA [] Verified Date/Time/Personnel: 09/08/2017 11:12 EDT Gram Negative Rods GSAER [] Verified Date/Time/Personnel: 09/08/2017 02:11 EDT Gram Negative Rods Performing Locations *1: This test was performed at: [facility], [address] [place] [address], [address] [place] [address] Performed By: #### CBL #### [place] [address] XR CHEST 1 VIEW Observed: 09/07/2017 Status: F Source: [facility] 5:13 AM [facility] REPOSITORY ORIGINAL XR CHEST 1 VIEW PORTABLE AP UPRIGHT DATE AND TIME: 09/07/2017 6:38 AM CLINICAL STATEMENT: shortness of breath, wheezy COMPARISON: 09/06/2017 FINDINGS: The cardiomediastinal contours are normal allowing for AP projection and limited inspiration. Bronchovascular markings are crowded. No focal consolidation, effusion, or pneumothorax is seen. M onitoring leads overlie the chest. IMPRESSION: Hypoventilatory changes. Interpreted By: Gelacio Pelaez MD Preliminary Report By: Gelacio Pelaez MD Electronically Signed By: Gelacio Pelaez MD Dictated Date: 09/07/2017 6:55:38 AM Prelim Date: 09/07/2017 6:55:38 AM Sign Date: 09/07/2017 6:56:31 AM LAC Collected: 09/06/2017 Status: F Source: [facility] 11:51 PM [facility] REPOSITORY TYPE CODE TESTS RESULT OUT OF REFERENCE UNITS RANGE LAB LAC(LOINC) 0.2-2.0 mmol/L High Lactic Acid 2.2 Lvl Performed By: #### LAC #### [place] [address] HGB Collected: 09/06/2017 Status: F Source: [facility] 9:22 PM [facility] REPOSITORY TYPE CODE TESTS RESULT OUT OF RANGE REFERENCE UNITS LAB HGB(LOINC) 13.0-17.5 G/dL Low Hgb 8.1 Performed By: #### HGB #### [place] [address] K Collected: 09/06/2017 Status: F Source: [facility] 9:22 PM [facility] REPOSITORY TYPE CODE TESTS RESULT OUT OF REFERENCE UNITS RANGE LAB K(LOINC) 3.5-5.0 mEq/L High Potassium Level 5.8 Performed By: #### K #### [place] [address] US RENAL Observed: 09/06/2017 Status: F Source: [facility] 8:00 PM [facility] REPOSITORY ORIGINAL US RENAL (US RETROPERITONEUM COMPLETE) CLINICAL STATEMENT: CONNER; r/o obstruction. COMPARISON: CT of the abdomen and pelvis 09/04/2017, renal ultrasound 07/16/2017 The right and left kidneys measure 9.9 x 5.0 x 4.6 cm and 11.3 x 5.3 x 5.1 cm in size, respectively. There is no solid renal mass or perirenal fluid. Curvilinear echogenic foci of the bilateral renal pa renchyma represent calcifications, as demonstrated on recent CT. There is mild hydronephrosis bilaterally. 2.3 cm anechoic cyst is partially exophytic from the right upper pole. There is no free fluid seen in the abdomen. Urinary bladder is suboptimally assessed as there is a catheter in place and patient is undergoing continual bladder irrigation. IMPRESSION: Mild bilateral hydronephrosis. Interpreted By: Meagan Richter MD Preliminary Report By: Meagan Richter MD Electronically Signed By: Meagan Richter MD Dictated Date: 09/06/2017 9:24:54 PM Prelim Date: 09/06/2017 9:24:54 PM Sign Date: 09/06/2017 9:30:06 PM URIC Collected: 09/06/2017 Status: F Source: [facility] 7:19 PM [facility] REPOSITORY TYPE CODE TESTS RESULT OUT OF RANGE REFERENCE UNITS LAB URIC(LOINC) 4.4-7.6 mg/dL High Uric Acid 9.7 Lvl Performed By: #### FES, FERR, URIC #### [place] [address] FES Collected: 09/06/2017 Status: F Source: [facility] 7:19 PM [facility] REPOSITORY TYPE CODE TESTS RESULT OUT OF RANGE REFERENCE UNITS LAB FE(LOINC) 49-181 mcg/dL Low Iron 20 LAB IBC(LOINC) 250-500 mcg/dL Low TIBC 217 LAB FESAT(LOINC % ) Iron Sat 9 Performed By: #### FES, FERR, URIC #### [place] [address] FERR Collected: 09/06/2017 Status: F Source: [facility] 7:19 PM [facility] REPOSITORY TYPE CODE TESTS RESULT OUT OF REFERENCE UNITS RANGE LAB FERR(LOINC) 26-388 ng/mL Ferritin 195 Performed By: #### FES, FERR, URIC #### [place] [address] MG Collected: 09/06/2017 Status: F Source: [facility] 7:19 PM [facility] REPOSITORY TYPE CODE TESTS RESULT OUT OF REFERENCE UNITS RANGE LAB MG(LOINC) 1.6-2.4 mg/dL Magnesium Lvl 2.2 Performed By: #### PHOS, TROPI, MG #### [place] [address] PHOS Collected: 09/06/2017 Status: F Source: [facility] 7:19 PM [facility] REPOSITORY TYPE CODE TESTS RESULT OUT OF REFERENCE UNITS RANGE LAB PHOS(LOINC 2.5-4.5 mg/dL ) High Phosphorus 4.9 Performed By: #### PHOS, TROPI, MG #### [place] [address] TROPI Collected: 09/06/2017 Status: F Source: [facility] 7:19 PM [facility] REPOSITORY TYPE CODE TESTS RESULT OUT OF REFERENCE UNITS RANGE LAB TROPI(LOINC 0.000-0.040 ng/mL ) Troponin I <0.015 Result Comment: Troponin I reference ranges (02/24/14): 0.00-0.040 ng/mL Negative and non-diagnostic. >0.040 ng/mL Consistent with cardiac damage, increased clinical risk and possibility of myocardial infarction. Serial measurements, a rise & fall in test results, clinical history, appropriate symptoms and/or ECG changes may help assess possibility of ND. *Other non-acute coronary syndrome conditions such as CHF, myocarditis, pulmonary emboli, sepsis and cardiac surgery could result in myocardial damage and increased troponin levels. Performed By: #### PHOS, TROPI, MG #### [address] [address] UA Collected: 09/06/2017 Status: F Source: [facility] 6:46 PM [facility] REPOSITORY TYPE CODE TESTS RESULT OUT OF RANGE REFERENCE UNITS LAB SPCUA(PARVEZ NC) UA Specimen Type Catheter LAB CLRUA(PARVEZ NC) UA Color Yellow LAB APPUA(PARVEZ Clear NC) UA Appear Abnormal Cloudy LAB SGUA(LOIN 1.006-1.029 C) UA Spec Abnormal Grav <=1.005 LAB GLUA(LOIN Negative mg/dL C) UA Glucose Abnormal 100 LAB BILUA(PARVEZ Neg-Trace NC) UA Bili Negative LAB KETUA(PARVEZ Neg-Trace mg/dL NC) UA Ketones Negative LAB BLDUA(PARVEZ Neg-Trace NC) UA Blood Abnormal Large LAB PHUA(LOIN 5.0 - 8.0 C) UA pH 5.5 LAB PROUA(PARVEZ Negative mg/dL NC) UA Protein 30 LAB UROUA(PARVEZ 0.2-1.0 E.U./dL NC) UA Urobilinogen 0.2 LAB NITUA(PARVEZ Negative NC) UA Nitrite Negative LAB LEUUA(PARVEZ Negative NC) UA Leuk Est Abnormal Large Performed By: #### LYLE, UAMIC, UA, CLUR, NAUR #### [address] [address] UAMIC Collected: 09/06/2017 Status: F Source: [facility] 6:46 PM [facility] REPOSITORY TYPE CODE TESTS RESULT OUT OF RANGE REFERENCE UNITS LAB RBCUA(LOIN 0-2 /hpf C) UA RBC Abnormal 3-5 LAB WBCUA(LOIN 0-5 /hpf C) UA WBC 3-5 LAB EPIUA(LOIN 0-20 /hpf C) UA Squam Epithelial Rare LAB AMOUA(LOIN /hpf C) UA Amorphus 1+ LAB BACUA(LOIN Negative /hpf C) UA Abnormal Bacteria 1+ LAB YSTUA(LOIN /hpf C) UA Yeast Abnormal 2+ LAB GLTUA(LOIN /hpf C) UA Abnormal Glitter cells 0-2 LAB GSTUA(LOIN /hpf C) UA Ghost Abnormal cells 5-10 Performed By: #### CRUR, UAMIC, UA, CLUR, NAUR #### [address] [place], [place] [address] CRUR Collected: 09/06/2017 Status: F Source: [facility] 6:46 PM [facility] REPOSITORY TYPE CODE TESTS RESULT OUT OF REFERENCE UNITS RANGE LAB CRU(LOINC) mg/dL U Creatinine 9.5 Performed By: #### CRUR, UAMIC, UA, CLUR, NAUR #### [facility] [address] [place] [address] NAUR Collected: 09/06/2017 Status: F Source: [facility] 6:46 PM [facility] REPOSITORY TYPE CODE TESTS RESULT OUT OF REFERENCE UNITS RANGE LAB LYNNETTE(LOINC) mEq/L U Sodium 12.0 Performed By: #### CRUR, UAMIC, UA, CLUR, NAUR #### [facility] [address] [place] [address] CLUR Collected: 09/06/2017 Status: F Source: [facility] 6:46 PM [facility] REPOSITORY TYPE CODE TESTS RESULT OUT OF REFERENCE UNITS RANGE LAB CLU(LOINC) mEq/L U Chloride <10.0 Performed By: #### CRUR, UAMIC, UA, CLUR, NAUR #### [place] [address] Observed: 09/06/2017 Status: F Source: [facility] 6:46 PM [facility] REPOSITORY . MICRO - Microbiology PROCEDURE: Urine Culture [*1] SOURCE: Urine, Franco Catheter BODY SITE: COLLECTED DATE/TIME: 09/06/2017 18:46 EDT RECEIVED DATE/TIME: 09/06/2017 18:55 EDT START DATE/TIME: 09/06/2017 18:55 EDT FREE TEXT SOURCE: FINAL REPORTS Final Report [] Verified Date/Time/Personnel: 09/08/2017 11:40 EDT 20,000 organisms per mL Yeast, not Gladis albicans Contact Microbiology within 72 hours if further identification is indicated ([id number]). [place] counts from a single urine are equivocal in determining infection vs. colonization of yeast. Multiple cultures at least 24 hours apart may be helpful in differentiating colonization from infection. PRELIMINARY REPORTS Preliminary Report [] Verified Date/Time/Personnel: 09/07/2017 07:38 EDT No growth to date Performing Locations *1: This test was performed at: [facility], [address] [place] [address], [address] [place] [address] Performed By: #### CUR #### [place] [address] Observed: 09/06/2017 Status: F Source: [facility] 6:46 PM [facility] REPOSITORY . MICRO - Microbiology PROCEDURE: MRSA PCR [*1] SOURCE: Nares BODY SITE: COLLECTED DATE/TIME: 09/06/2017 18:46 EDT RECEIVED DATE/TIME: 09/06/2017 18:55 EDT START DATE/TIME: 09/06/2017 18:55 EDT FREE TEXT SOURCE: FINAL REPORTS Final Report [] Verified Date/Time/Personnel: 09/07/2017 11:16 EDT Methicillin-Resistant Staphylococcus aureus Staphylococcus aureus DNA detected by Real-Time Polymerase Chain Reaction (PCR). Organism viability cannot be determined since DNA may persist in the absence of viable organisms. As with all PCR based in vitro tests, extremely low levels of target below the limit of detection of the assay may be detected, but results may not be reproducible. Infection control has been notified. Performing Locations *1: This test was performed at: [facility], [address] [place] [address], [address] [place] [address] Performed By: #### MRPCR #### [place] [address] XR ABDOMEN SERIES Observed: 09/06/2017 Status: F Source: [facility] W/CHEST 1 VIEW 3:15 PM [facility] REPOSITORY ORIGINAL UPRIGHT AND SUPINE VIEWS OF THE ABDOMEN, 1 VIEW OF THE CHEST CLINICAL STATEMENT: abdominal pain. COMPARISON: CT abdomen pelvis 09/04/2017 FINDINGS: Lung volumes are low. This accentuates the cardiac silhouette. Bibasilar atelectasis noted. No vascular congestion or pneumothorax identified. There are multiple gas-filled loops of bowel which demonstrate air-fluid levels on decubitus imaging. Stool is noted in the rectum. No free air seen. IMPRESSION: Multiple prominent loops of bowel with air-fluid levels. Obstruction cannot be excluded. Interpreted By: Funmilayo Carter Preliminary Report By: Funmilayo Carter Electronically Signed By: Funmilayo Carter Dictated Date: 09/06/2017 3:46:42 PM Prelim Date: 09/06/2017 3:46:42 PM Sign Date: 09/06/2017 3:50:58 PM K Collected: 09/06/2017 Status: F Source: [facility] 1:32 PM [facility] REPOSITORY TYPE CODE TESTS RESULT OUT OF RANGE REFERENCE UNITS LAB K(LOINC) 3.5-5.0 mEq/L Abnormal Alert Potassium Level 6.6 Performed By: #### K #### [place] [address] Observed: 09/06/2017 Status: F Source: [facility] CUR 1:32 PM [facility] REPOSITORY . MICRO - Microbiology PROCEDURE: Urine Culture [*1] SOURCE: Urine, Clean Catch BODY SITE: COLLECTED DATE/TIME: 09/06/2017 13:32 EDT RECEIVED DATE/TIME: 09/06/2017 13:57 EDT START DATE/TIME: 09/06/2017 13:57 EDT FREE TEXT SOURCE: FINAL REPORTS Final Report [] Verified Date/Time/Personnel: 09/08/2017 11:38 EDT 30,000 organisms per mL Yeast, not Gladis albicans Contact Microbiology within 72 hours if further identification is indicated ([id number]). [place] counts from a single urine are equivocal in determining infection vs. colonization of yeast. Multiple cultures at least 24 hours apart may be helpful in differentiating colonization from infection. PRELIMINARY REPORTS Preliminary Report [] Verified Date/Time/Personnel: 09/07/2017 10:59 EDT Culture results pending. Performing Locations *1: This test was performed at: [facility], [address] [place] [address], [address] [place] [address] Performed By: #### CUR #### [place] [address] LAC Collected: 09/06/2017 Status: F Source: [facility] 11:47 AM [facility] REPOSITORY TYPE CODE TESTS RESULT OUT OF REFERENCE UNITS RANGE LAB LAC(LOINC) 0.2-2.0 mmol/L High Lactic Acid 3.4 Lvl Performed By: #### CMP, GFR, LAC, ANEU, ADIFF, CBC #### [place] [address] CBC Collected: 09/06/2017 Status: F Source: [facility] 11:47 [facility] REPOSITORY TYPE CODE TESTS RESULT OUT OF REFERENCE UNITS RANGE LAB WBC(LOINC) 4.50-10.80 10 3/mcL WBC 7.80 LAB RBCCT(LOINC 4.50-6.00 10 6/mcL ) Low RBC 2.68 LAB HGB(LOINC) 13.0-17.5 G/dL Low Hgb 8.2 LAB HCT(LOINC) 40.0-52.0 % Low Hct 25.1 LAB MCV(LOINC) 81.0-100.0 fL MCV 93.7 LAB MCH(LOINC) 27.0-33.0 pg MCH 30.8 LAB MCHC(LOINC) 32.0-36.0 G/dL MCHC 32.8 LAB RDW(LOINC) 11.5-15.5 % High RDW 19.3 LAB PLT(LOINC) 150-450 10 3/mcL Platelet 151 LAB MPV(LOINC) 6.4-10.5 fL MPV 9.8 Performed By: #### CMP, GFR, LAC, ANEU, ADIFF, CBC #### [place] [id number] [place] [address] .AUTO DIFF Collected: 09/06/2017 Status: F Source: [facility] 11:[address] [place] [address] REPOSITORY TYPE CODE TESTS RESULT OUT OF REFERENCE UNITS RANGE LAB JUAN A(LOINC) 50.0-75.0 % High Neutrophil % 82.5 LAB LYM(LOINC) 20.0-40.0 % Low Lymphocyte % 5.0 LAB MON(LOINC) 2.0-13.0 % Monocyte % 11.7 LAB EO(LOINC) 0.0-6.0 % Eosinophil % 0.8 LAB BAS(LOINC) 0.0-2.5 % Basophil % 0.0 LAB ABLYM(LOIN 0.90-4.32 10 3/mcL C) Low Lymphocyte, 0.40 Absolute LAB ALESSANDRA(LOINC 0.09-1.40 10 3/mcL ) Monocyte, 0.90 Absolute LAB AEOS(LOINC 0.00-0.65 10 3/mcL ) Eosinophil, 0.10 Absolute LAB ABAS(LOINC 0.00-0.27 10 3/mcL ) Basophil, 0.00 Absolute Performed By: #### CMP, GFR, LAC, ANEU, ADIFF, CBC #### [address] [address] .NEUABS Collected: 09/06/2017 Status: F Source: [facility] 11:47 AM [facility] REPOSITORY TYPE CODE TESTS RESULT OUT OF REFERENCE UNITS RANGE LAB ANEU(LOINC) 2.25-8.10 10 3/mcL Neutrophil, 6.50 Absolute Performed By: #### CMP, GFR, LAC, ANEU, ADIFF, CBC #### [address] [address] .GFR Collected: 09/06/2017 Status: F Source: [facility] 11:47 AM [facility] REPOSITORY TYPE CODE TESTS RESULT OUT OF REFERENCE UNITS RANGE LAB GFRAA(LOINC ml/min/1.73 ) sqm GFR 12 [place] Result Comment: GFR Population mean for , Non- Americans Ages 20-29 = 116 mL/min/1.73 sq.m. Ages 30-39 = 107 mL/min/1.73 sq.m. Ages 40-49 = 99 mL/min/1.73 sq.m. Ages 50-59 = 93 mL/min/1.73 sq.m. Ages 60-69 = 85 mL/min/1.73 sq.m. Ages 70+ = 75 mL/min/1.73 sq.m. Chronic Kidney Disease: Less than 60 mL/min/1.73 square meters End Stage Renal Disease: Less than 15 mL/min/1.73 square meters LAB GFRNO(LOINC) ml/min/1.73sqm GFR Non- 10 Result Comment: GFR Population mean for , Non- Americans Ages 20-29 = 116 mL/min/1.73 sq.m. Ages 30-39 = 107 mL/min/1.73 sq.m. Ages 40-49 = 99 mL/min/1.73 sq.m. Ages 50-59 = 93 mL/min/1.73 sq.m. Ages 60-69 = 85 mL/min/1.73 sq.m. Ages 70+ = 75 mL/min/1.73 sq.m. Chronic Kidney Disease: Less than 60 mL/min/1.73 square meters End Stage Renal Disease: Less than 15 mL/min/1.73 square meters Performed By: #### CMP, GFR, LAC, ANEU, ADIFF, CBC #### [address] [address] CMP Collected: 09/06/2017 Status: F Source: [facility] 11:47 AM [facility] REPOSITORY TYPE CODE TESTS RESULT OUT OF RANGE REFERENCE UNITS LAB GLU(LOINC) 70-110 mg/dL Glucose Abnormal Level 444 Alert LAB NA(LOINC) 136-145 mEq/L Low Sodium Level 123 LAB K(LOINC) 3.5-5.0 mEq/L Potassium Abnormal Level 6.8 Alert LAB CL(LOINC) 98-110 mEq/L Low Chloride 92 LAB CO2(LOINC) 22-32 mEq/L Low CO2 20 LAB EBAL(LOINC 4.0-15.0 mEq/L ) Electrolyte Balance 11.0 LAB BUN(LOINC) 8.0-22.0 mg/dL High BUN 99.0 LAB CRE(LOINC) 0.60-1.40 mg/dL High Creatinine Lvl (s) 6.30 LAB BC(LOINC) 10.0-22.0 ratio BUN/Creatinine 15.7 Ratio LAB CA(LOINC) 8.4-10.1 mg/dL Calcium Lvl 8.9 LAB PROT(LOINC 6.0-8.5 G/dL ) Total Protein 7.0 LAB ALB(LOINC) 3.2-4.8 G/dL Low Albumin Level 3.0 LAB GLB(LOINC) 1.5-3.8 G/dL High Globulin 4.0 LAB AG(LOINC) 0.9-1.6 ratio Low A/G Ratio 0.8 LAB BILT(LOINC 0.2-1.2 mg/dL ) Bili Total 0.4 LAB AP(LOINC) 38-126 U/L Alk Phos 75 LAB AST(LOINC) 8-34 U/L High AST/SGOT 43 LAB ALT(LOINC) 12-55 U/L ALT/SGPT 50 Performed By: #### CMP, GFR, LAC, ANEU, ADIFF, CBC #### [address] [address] Observed: 09/06/2017 Status: F Source: [facility] 11:47 [facility] REPOSITORY . MICRO - Microbiology PROCEDURE: Blood Culture (bacterial) [*1] SOURCE: Blood BODY SITE: COLLECTED DATE/TIME: 09/06/2017 11:47 EDT RECEIVED DATE/TIME: 09/06/2017 12:21 EDT START DATE/TIME: 09/06/2017 12:21 EDT FREE TEXT SOURCE: FINAL REPORTS Final Report [] Verified Date/Time/Personnel: 09/09/2017 07:54 EDT Serratia marcescens Isolated from aerobe and anaerobe bottles. Refer to previous culture for susceptibility. [phone], collected 09-06-17 PRELIMINARY REPORTS Preliminary Report [] Verified Date/Time/Personnel: 09/08/2017 10:29 EDT Gram Negative Rods Isolated from aerobe and anaerobe bottles. Final report to follow. Preliminary Report [] Verified Date/Time/Personnel: 09/06/2017 12:59 EDT Culture has been received in lab and is no growth to date. Routine cultures are held for 5 days. STAINS GSANA [] Verified Date/Time/Personnel: 09/07/2017 12:42 EDT Gram Negative Rods GSAER [] Verified Date/Time/Personnel: 09/07/2017 01:50 EDT Gram Negative Rods Performing Locations *1: This test was performed at: [address], [address] [place] [address] Performed By: #### CBL #### [place] [address] Observed: 09/06/2017 Status: F Source: [facility] 11:47 [facility] REPOSITORY . MICRO - Microbiology PROCEDURE: Blood Culture (bacterial) [*1] SOURCE: Blood BODY SITE: COLLECTED DATE/TIME: 09/06/2017 11:47 EDT RECEIVED DATE/TIME: 09/06/2017 12:21 EDT START DATE/TIME: 09/06/2017 12:21 EDT FREE TEXT SOURCE: FINAL REPORTS Final Report [] Verified Date/Time/Personnel: 09/09/2017 07:52 EDT Serratia marcescens Isolated from aerobe and anaerobe bottles. PRELIMINARY REPORTS Preliminary Report [] Verified Date/Time/Personnel: 09/08/2017 10:25 EDT Gram Negative Rods Isolated from aerobe and anaerobe bottles. Final identification and BRUNO to follow. Preliminary Report [] Verified Date/Time/Personnel: 09/06/2017 12:59 EDT Culture has been received in lab and is no growth to date. Routine cultures are held for 5 days. STAINS GSANA [] Verified Date/Time/Personnel: 09/07/2017 08:21 EDT Gram Negative Rods GSAER [] Verified Date/Time/Personnel: 09/07/2017 06:23 EDT Gram Negative Rods SUSCEPTIBILITY RESULTS Serratia marcescens Antibiotic BRUNO Dilutn BRUNO Interp Amoxicillin/ >16/8 Resistant Clavulanate Ampicillin >16 Resistant Cefazolin >16 Resistant Cefotaxime >32 Resistant Ceftriaxone <=8 Susceptible Cefuroxime >16 Resistant Ciprofloxacin <=1 Susceptible Gentamicin <=4 Susceptible Levofloxacin <=2 Susceptible Meropenem <=1 Susceptible Piperacillin/ >64 Resistant Tazobactam Trimethoprim/ <=2/38 Susceptible Sulfa Performing Locations *1: This test was performed at: [facility], [address] [place] [address], [facility]- , [facility] Performed By: #### CBL #### [place] [address] CNPTOUTREACH Observed: 09/05/2017 Status: COMPLETED Source: [place] 12:00 AM [facility] REPOSITORY Patient Outreach (FAMPST) JARON MORSE ([id number]) 1980 M Date Time Provider Department 09/05/17 FRANCINE CLARK FAMPST During your visit today, we recorded the following information about you: Allergies As of Date: 09/05/2017 Noted Allergy Reaction SEASONAL ALLERGIES 12/03/2012 14 - Other: See Comments Comments: Environmental-ragweed Date Reviewed: 07/31/2017 Reviewed by: Karol Kim Cellophaner - Fully Assessed Visit Diagnosis:Medication management [Z79.899] Order(s):CBC [SQCBC] Order #: [id number] FUTURE ALBUMIN/CREAT RATIO RND UR [SQUACR] Order #: [id number] FUTURE Prescriptions as of 09/05/2017 Sig: X POLYETHYLENE GLYCOL 3350 17 G* MIX 1 CAPFUL (17 GMS) IN 8 OZ* ND-ACID GAS RELIEF 80 MG CHEW* CHEW 1 TABLET BY MOUTH WITH M* ASCORBIC ACID (VITAMIN C) 1,0* Take 1 tablet by mouth once d* X APIXABAN 2.5 MG TABLET Take 1 tablet by mouth twice * X INSULIN GLARGINE (U-100) 100 * Inject 10 Units subcutaneousl* ASPIRIN 81 MG TABLET,DELAYED * TAKE (1) TABLET BY MOUTH JACQUELIN* PANTOPRAZOLE 40 MG TABLET,DEL* TAKE 1 TABLET BY MOUTH ONCE D* CITRIC [id number] CARB 6.6* 30 mL by INTRAVESICAL route t* OLOPATADINE 0.7 % EYE DROPS Use 1 Drop in eyes once daily. METOPROLOL TARTRATE 25 MG TAB* TAKE (1/2) TABLET BY MOUTH TW* SENNOSIDES 8.6 MG TABLET Take 1 tablet by mouth twice * X ATENOLOL ORAL Take by mouth. Pt unsure of * X ATORVASTATIN 10 MG TABLET TAKE ONE-HALF (1/2) TABLET AT* X INSULIN LISPRO (U-100) 100 UN* Inject 6 Units subcutaneously* X GLUCOSE 4 GRAM CHEWABLE TABLET Take 4 tablets by mouth as ne* X LANCETS Test blood sugar(s) 8 times d* X BLOOD SUGAR DIAGNOSTIC STRIPS Test blood sugar(s) 8 times d* X PEN NEEDLE, DIABETIC 31 GAUGE* TAKE FIVE- SIX INJECTIONS VASYL* X FLUTICASONE 50 MCG/ACTUATION * USE 2 SPRAYS IN EACH NOSTRIL * X MELATONIN 3 MG TABLET Take 1 tablet by mouth daily * OXYBUTYNIN CHLORIDE 5 MG TABL* Take 1 tablet by mouth as nee* X LORATADINE 10 MG TABLET Take 1 tablet by mouth once d* X ALBUTEROL SULFATE HFA 90 MCG/* Inhale 2 Puffs as instructed * QUETIAPINE 200 MG TABLET TAKE (1) TABLET BY MOUTH TWIC* QUETIAPINE 100 MG TABLET TAKE 1 TABLET BY MOUTH ONCE D* AMMONIUM LACTATE 12 % TOPICAL* Apply 1 application to affect* X FLUOXETINE 20 MG TABLET Take 1 tablet by mouth once d* COMPOUNDED PRESCRIPTION Please provide ARKKCASSIE glucoca* BISACODYL 10 MG RECTAL SUPPOS* 1 Suppository by RECTAL route* Patient not taking: Reported on 03/05/2018 X FLUOXETINE 10 MG CAPSULE Take 1 capsule by mouth once * X GUAIFENESIN ER 600 MG TABLET,* Take 2 tablets by mouth twice* X KETOCONAZOLE 2 % SHAMPOO Apply lather to affected skin* DOCUSATE SODIUM 100 MG CAPSULE Take 1 capsule by mouth twice* Problem List As Of Date 09/05/2017 Noted Resolved ATTN DEFICIT W HYPERACT [F90.9] INVALID FOR* Uncontrolled type 1 diabetes mellitus (HCC) [E1*INVALID FOR* HYDRONEPHROSIS [N13.30] INVALID FOR* 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 Allergic rhinitis [J30.9] DVT of left axillary vein, acute (HCC) [I82.A12]INVALID FOR* Encounter Status:Closed by EPIC, PRODUSER on 03/30/18 CT ABDOMEN/PELVIS W/O Observed: 09/04/2017 Status: F Source: [facility] 7:59 AM [facility] REPOSITORY ORIGINAL CT ABDOMEN/PELVIS W/O CONTRAST CLINICAL STATEMENT: abdominal pain COMPARISON: 05/15/2015 FINDINGS:Today's exam was performed using noncontrast enhanced CT of the abdomen and pelvis. Images through the lung parenchyma included within the lung bases on today's exam demonstrates a similar aera tion pattern with chronic appearing changes but no discrete consolidation. There is no pleural or pericardial effusion. In the abdomen, the liver and spleen are grossly unremarkable. There is a moderate-sized hiatal hernia. Gallbladder is present. Kidneys demonstrate extensive chronic parenchymal changes with cortical th inning and interval development in bilateral collecting system dilatation. There is marked ureterectasis to the ureterovesical junctions with high density material layering dependently within the bladde r. A suprapubic catheter is present. There is a single air bubble within the high density debris as well as additional nondependent air within the bladder lumen. No pathologically enlarged upper abdominal lymph nodes are confirmed. The adrenal glands are grossly unremarkable. Limited evaluation of the pancreas reveals no contributory findings. The spleen is mason sly unremarkable in appearance. There is extensive gaseous distention of the colon in the mid and upper abdomen resulting in artifact. In the pelvis, moderate stool is present throughout the colon. There is no free fluid or adenopathy confirmed within the pelvis. There is a single prominent LEFT iliac lymph node which measures just 1.0 x 1.1 cm. Osseous structures are grossly unremarkable. IMPRESSION: 1. Interval development in bilateral hydronephrosis and ureterectasis with marked dilatation of the mid ureters. 2. There is high density layering dependently filling at least half of the bladder. This could represent infection, tumor, hemorrhage, or retained contrast material from a contrast enhanced study perhap s at another institution. No recent evidence of contrast administration at this institution is identified. Suprapubic catheter is present. There are a few air bubbles within the bladder. 3. Gaseous distention of small bowel and colon without obvious transition zone. Artifact significantly enters evaluation of the abdominal contents. 4. Distended rectosigmoid colon with large amount of stool suggesting constipation. This exam was performed according to our departmental dose optimization program, and includes the following measures where applicable: automated exposure control, adjustment of the mAs and/or kVp accord ing to patient size and/or exam, and an iterative reconstruction algorithm. Interpreted By: Deanne Nails MD Preliminary Report By: Deanne Nails MD Electronically Signed By: Deanne Nails MD Dictated Date: 09/04/2017 8:23:39 AM Prelim Date: 09/04/2017 8:23:39 AM Sign Date: 09/04/2017 8:28:53 AM CBC Collected: 09/04/2017 Status: F Source: [facility] 5:56 AM [facility] REPOSITORY TYPE CODE TESTS RESULT OUT OF REFERENCE UNITS RANGE LAB WBC(LOINC) 4.50-10.80 10 3/mcL WBC 10.00 LAB RBCCT(LOINC 4.50-6.00 10 6/mcL ) Low RBC 3.86 LAB HGB(LOINC) 13.0-17.5 G/dL Low Hgb 11.8 LAB HCT(LOINC) 40.0-52.0 % Low Hct 35.1 LAB MCV(LOINC) 81.0-100.0 fL MCV 90.9 LAB MCH(LOINC) 27.0-33.0 pg MCH 30.7 LAB MCHC(LOINC) 32.0-36.0 G/dL MCHC 33.7 LAB RDW(LOINC) 11.5-15.5 % High RDW 18.3 LAB PLT(LOINC) 150-450 10 3/mcL Platelet 257 LAB MPV(LOINC) 6.4-10.5 fL MPV 8.6 Performed By: #### CBC, ADIFF, GFR, ANEU, CMP, LIP #### [address] [address] .AUTO DIFF Collected: 09/04/2017 Status: F Source: [facility] 5:56 AM [facility] REPOSITORY TYPE CODE TESTS RESULT OUT OF REFERENCE UNITS RANGE LAB JUAN A(LOINC) 50.0-75.0 % High Neutrophil % 87.0 LAB LYM(LOINC) 20.0-40.0 % Low Lymphocyte % 6.8 LAB MON(LOINC) 2.0-13.0 % Monocyte % 5.5 LAB EO(LOINC) 0.0-6.0 % Eosinophil % 0.6 LAB BAS(LOINC) 0.0-2.5 % Basophil % 0.1 LAB ABLYM(LOIN 0.90-4.32 10 3/mcL C) Low Lymphocyte, 0.70 Absolute LAB ALESSANDRA(LOINC 0.09-1.40 10 3/mcL ) Monocyte, 0.50 Absolute LAB AEOS(LOINC 0.00-0.65 10 3/mcL ) Eosinophil, 0.10 Absolute LAB ABAS(LOINC 0.00-0.27 10 3/mcL ) Basophil, 0.00 Absolute Performed By: #### CBC, ADIFF, GFR, ANEU, CMP, LIP #### [address] [address] .NEUABS Collected: 09/04/2017 Status: F Source: [facility] 5:56 AM [facility] REPOSITORY TYPE CODE TESTS RESULT OUT OF REFERENCE UNITS RANGE LAB ANEU(LOINC) 2.25-8.10 10 3/mcL High Neutrophil, 8.70 Absolute Performed By: #### CBC, ADIFF, GFR, ANEU, CMP, LIP #### [address] [address] LIP Collected: 09/04/2017 Status: F Source: [facility] 5:56 AM [facility] REPOSITORY TYPE CODE TESTS RESULT OUT OF REFERENCE UNITS RANGE LAB LIP(LOINC) 73-393 U/L Lipase Level 103 Performed By: #### CBC, ADIFF, GFR, ANEU, CMP, LIP #### [address] [address] .GFR Collected: 09/04/2017 Status: F Source: [facility] 5:56 AM [facility] REPOSITORY TYPE CODE TESTS RESULT OUT OF REFERENCE UNITS RANGE LAB GFRAA(LOINC ml/min/1.73 ) sqm GFR 35 [place] Result Comment: GFR Population mean for , Non- Americans Ages 20-29 = 116 mL/min/1.73 sq.m. Ages 30-39 = 107 mL/min/1.73 sq.m. Ages 40-49 = 99 mL/min/1.73 sq.m. Ages 50-59 = 93 mL/min/1.73 sq.m. Ages 60-69 = 85 mL/min/1.73 sq.m. Ages 70+ = 75 mL/min/1.73 sq.m. Chronic Kidney Disease: Less than 60 mL/min/1.73 square meters End Stage Renal Disease: Less than 15 mL/min/1.73 square meters LAB GFRNO(LOINC) ml/min/1.73sqm GFR Non- 29 Result Comment: GFR Population mean for , Non- Americans Ages 20-29 = 116 mL/min/1.73 sq.m. Ages 30-39 = 107 mL/min/1.73 sq.m. Ages 40-49 = 99 mL/min/1.73 sq.m. Ages 50-59 = 93 mL/min/1.73 sq.m. Ages 60-69 = 85 mL/min/1.73 sq.m. Ages 70+ = 75 mL/min/1.73 sq.m. Chronic Kidney Disease: Less than 60 mL/min/1.73 square meters End Stage Renal Disease: Less than 15 mL/min/1.73 square meters Performed By: #### CBC, ADIFF, GFR, ANEU, CMP, LIP #### [address] [address] CMP Collected: 09/04/2017 Status: F Source: [facility] 5:56 AM [facility] REPOSITORY TYPE CODE TESTS RESULT OUT OF REFERENCE UNITS RANGE LAB GLU(LOINC) 70-110 mg/dL Glucose High Level 267 LAB NA(LOINC) 136-145 mEq/L Sodium Level 137 LAB K(LOINC) 3.5-5.0 mEq/L Potassium Level 5.0 LAB CL(LOINC) 98-110 mEq/L Chloride 101 LAB CO2(LOINC) 22-32 mEq/L CO2 27 LAB EBAL(LOINC 4.0-15.0 mEq/L ) Electrolyte Balance 9.0 LAB BUN(LOINC) 8.0-22.0 mg/dL BUN High 51.0 LAB CRE(LOINC) 0.60-1.40 mg/dL Creatinine High Lvl (s) 2.57 LAB BC(LOINC) 10.0-22.0 ratio BUN/Creatinine 19.8 Ratio LAB CA(LOINC) 8.4-10.1 mg/dL Calcium Lvl 9.1 LAB PROT(LOINC 6.0-8.5 G/dL ) Total Protein 8.1 LAB ALB(LOINC) 3.2-4.8 G/dL Albumin Level 4.1 LAB GLB(LOINC) 1.5-3.8 G/dL Globulin High 4.0 LAB AG(LOINC) 0.9-1.6 ratio A/G Ratio 1.0 LAB BILT(LOINC 0.2-1.2 mg/dL ) Bili Total 0.5 LAB AP(LOINC) 38-126 U/L Alk Phos High 133 LAB AST(LOINC) 8-34 U/L AST/SGOT 32 LAB ALT(LOINC) 12-55 U/L ALT/SGPT 36 Performed By: #### CBC, ADIFF, GFR, ANEU, CMP, LIP #### [address] [address] UA Collected: 09/04/2017 Status: F Source: [facility] 5:56 AM [facility] REPOSITORY TYPE CODE TESTS RESULT OUT OF RANGE REFERENCE UNITS LAB SPCUA(LOIN C) UA Specimen Type Catheter LAB CLRUA(LOIN C) UA Abnormal Color Red LAB APPUA(LOIN C) UA Abnormal Appear Turbid Result Comment: The specimen was grossly bloody. The chemical analysis was performed on a centrifuged specimen containing little or no grossly identifiable blood. LAB SGUA(LOINC) UA Spec Abnormal Grav 1.010 LAB GLUA(LOINC) Negative mg/dL UA Glucose Abnormal 100 LAB BILUA(LOINC) Neg-Trace UA Bili Abnormal Large LAB KETUA(LOINC) Neg-Trace mg/dL UA Ketones Abnormal 15 LAB BLDUA(LOINC) Neg-Trace UA Blood Abnormal Large LAB PHUA(LOINC) 5.0 - 8.0 UA pH Abnormal 8.5 LAB PROUA(LOINC) Negative mg/dL UA Protein Abnormal >=300 LAB UROUA(LOINC) E.U./ dL UA Abnormal Urobilinogen 2.0 LAB NITUA(LOINC) Negative UA Nitrite Negative LAB LEUUA(LOINC) Negative UA Leuk Est Abnormal Large Performed By: #### UA, UAMIC #### [place] [address] UAMIC Collected: 09/04/2017 Status: F Source: [facility] 5:56 AM [facility] REPOSITORY TYPE CODE TESTS RESULT OUT OF RANGE REFERENCE UNITS LAB RBCUA(LOIN 0-2 /hpf C) UA Abnormal RBC LOADED LAB WBCUA(LOIN 0-5 /hpf C) UA Abnormal WBC LOADED LAB EPIUA(LOIN 0-20 /hpf C) UA Squam Negative Epithelial LAB BACUA(LOIN Negative /hpf C) UA Abnormal Bacteria 4+ LAB GLTUA(LOIN /hpf C) UA Abnormal Glitter cells 25-50 Performed By: #### UA, UAMIC #### [address] [address] CBC Collected: 08/01/2017 Status: F Source: [facility] 1:11 PM [facility] REPOSITORY TYPE CODE TESTS RESULT OUT OF REFERENCE UNITS RANGE LAB WBC(LOINC) 4.50-10.80 10 3/mcL WBC 7.00 LAB RBCCT(LOINC 4.50-6.00 10 6/mcL ) Low RBC 3.09 LAB HGB(LOINC) 13.0-17.5 G/dL Low Hgb 9.6 LAB HCT(LOINC) 40.0-52.0 % Low Hct 28.0 LAB MCV(LOINC) 81.0-100.0 fL MCV 90.5 LAB MCH(LOINC) 27.0-33.0 pg MCH 30.9 LAB MCHC(LOINC) 32.0-36.0 G/dL MCHC 34.1 LAB RDW(LOINC) 11.5-15.5 % RDW 14.4 LAB PLT(LOINC) 150-450 10 3/mcL High Platelet 481 LAB MPV(LOINC) 6.4-10.5 fL MPV 9.5 Performed By: #### BRETT MCBRIDE, CBC #### [address] [address] .AUTO DIFF Collected: 08/01/2017 Status: F Source: [facility] 1:11 PM [facility] REPOSITORY TYPE CODE TESTS RESULT OUT OF REFERENCE UNITS RANGE LAB JUAN A(LOINC) 50.0-75.0 % Low Neutrophil % 49.2 LAB LYM(LOINC) 20.0-40.0 % Lymphocyte % 36.1 LAB MON(LOINC) 2.0-13.0 % Monocyte % 11.4 LAB EO(LOINC) 0.0-6.0 % Eosinophil % 2.1 LAB BAS(LOINC) 0.0-2.5 % Basophil % 1.2 LAB ABLYM(LOIN 0.90-4.32 10 3/mcL C) Lymphocyte, 2.50 Absolute LAB ALESSANDRA(LOINC 0.09-1.40 10 3/mcL ) Monocyte, 0.80 Absolute LAB AEOS(LOINC 0.00-0.65 10 3/mcL ) Eosinophil, 0.10 Absolute LAB ABAS(LOINC 0.00-0.27 10 3/mcL ) Basophil, 0.10 Absolute Performed By: #### BRETT MCBRIDE, CBC #### [address] [address] .NEUABS Collected: 08/01/2017 Status: F Source: [facility] 1:11 PM [facility] REPOSITORY TYPE CODE TESTS RESULT OUT OF REFERENCE UNITS RANGE LAB ANEU(LOINC) 2.25-8.10 10 3/mcL Neutrophil, 3.40 Absolute Performed By: #### BRETT MCBRIDE [facility] #### [facility] [address] [place] [id number] KIT Observed: 08/01/2017 Status: COMPLETED Source: [place] 12:00 AM [facility] REPOSITORY Telephone (INTMWS) JARON MORSE ([id number]) 1980 M Date Time Provider Department 08/01/17 CORINNE MORAN) INTMWS During your visit today, we recorded the following information about you: Corinne Moran CNP 08/01/2017 2:09 PM Addendum I received hospital records yesterday and it looks like patient was started on Eliquis to treat DVT. They gave him a month with no refills so I sent prescription to his pharmacy. He needs to be on this medication for a total of 3 months. It was also recommended he have blood work done in 6 weeks, which I have ordered. No appointment necessary, just come to lab to have drawn. Patient had asked about implanted IV access at appointment. I discussed with his PCP, she does not recommend this due to current blood clot and risk of infection. ANGIE Moreira Cma 08/01/2017 2:08 PM Signed Left detailed message for Cherise ROSA with all information. Karol Kim Cma Allergies As of Date: 08/01/2017 Noted Allergy Reaction SEASONAL ALLERGIES 12/03/2012 14 - Other: See Comments Comments: Environmental-ragweed Date Reviewed: 07/31/2017 Reviewed by: Karol Kim Cma - Fully Assessed Reason for Visit: Results [95] Prescriptions as of 08/01/2017 Sig: APIXABAN 2.5 MG TABLET Take 1 tablet by mouth twice * INSULIN GLARGINE 100 UNIT/ML * Inject 10 Units subcutaneousl* POLYETHYLENE GLYCOL 3350 17 G* MIX 1 CAPFUL (17 GMS) IN 8 OZ* ASPIRIN 81 MG TABLET,DELAYED * TAKE (1) TABLET BY MOUTH JACQUELIN* PANTOPRAZOLE 40 MG TABLET,DEL* TAKE 1 TABLET BY MOUTH ONCE D* CITRIC XF-TMTOMSW-YF CARB 6.6* 30 mL by INTRAVESICAL route t* ND-ACID GAS RELIEF 80 MG CHEW* CHEW 1 TABLET BY MOUTH WITH M* OLOPATADINE 0.7 % EYE DROPS Use 1 Drop in eyes once daily. METOPROLOL TARTRATE 25 MG TAB* TAKE (1/2) TABLET BY MOUTH TW* ATENOLOL ORAL Take by mouth. Pt unsure of * SENNOSIDES 8.6 MG TABLET Take 1 tablet by mouth twice * ATORVASTATIN 10 MG TABLET TAKE ONE-HALF (1/2) TABLET AT* INSULIN LISPRO 100 UNIT/ML DAWSON* Inject 6 Units subcutaneously* GLUCOSE 4 GRAM CHEWABLE TABLET Take 4 tablets by mouth as ne* LANCETS Test blood sugar(s) 8 times d* BLOOD SUGAR DIAGNOSTIC STRIPS Test blood sugar(s) 8 times d* PEN NEEDLE, DIABETIC 31 GAUGE* TAKE FIVE- SIX INJECTIONS VASYL* FLUTICASONE 50 MCG/ACTUATION * USE 2 SPRAYS IN EACH NOSTRIL * ASCORBIC ACID (VITAMIN C) 1,0* Take 1 tablet by mouth once d* MELATONIN 3 MG TABLET Take 1 tablet by mouth daily * OXYBUTYNIN CHLORIDE 5 MG TABL* Take 1 tablet by mouth as nee* LORATADINE 10 MG TABLET Take 1 tablet by mouth once d* ALBUTEROL SULFATE HFA 90 MCG/* Inhale 2 Puffs as instructed * QUETIAPINE 200 MG TABLET TAKE (1) TABLET BY MOUTH TWIC* QUETIAPINE 100 MG TABLET TAKE 1 TABLET BY MOUTH ONCE D* AMMONIUM LACTATE 12 % TOPICAL* Apply 1 application to affect* FLUOXETINE 20 MG TABLET Take 1 tablet by mouth once d* COMPOUNDED PRESCRIPTION Please provide ARVA glucoca* BISACODYL 10 MG RECTAL SUPPOS* 1 Suppository by RECTAL route* FLUOXETINE 10 MG CAPSULE Take 1 capsule by mouth once * GUAIFENESIN ER 600 MG TABLET,* Take 2 tablets by mouth twice* KETOCONAZOLE 2 % SHAMPOO Apply lather to affected skin* DOCUSATE SODIUM 100 MG CAPSULE Take 1 capsule by mouth twice* Problem List As Of Date 08/01/2017 Noted Resolved ATTN DEFICIT W HYPERACT [F90.9] INVALID FOR* Uncontrolled type 1 diabetes mellitus (HCC) [E1*INVALID FOR* HYDRONEPHROSIS [N13.30] INVALID FOR* 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 Allergic rhinitis [J30.9] DVT of left axillary vein, acute (HCC) [I82.A12]INVALID FOR* Encounter Status:Closed by KAROL KIM CMA on 08/01/17 CBC-COMPLETE BLOOD CNT Collected: 07/31/2017 Status: F Source: [place] NO DIFF 2:17 PM [facility] REPOSITORY TYPE CODE TESTS RESULT OUT OF RANGE REFERENCE UNITS LAB L100.1000 4.4-11.0 K/mm3 Normal WBC 6.5 LAB L100.1200 4.6-6.2 M/mm3 Low RBC 3.03 LAB L100.1300 13.0-16.5 g/dl Low HGB 9.3 LAB L100.1400 40-54 % Low HCT 29.0 LAB L100.1500 80-94 fL High MCV 95.7 LAB L100.1600 27.0-32.0 pg Normal MCH 30.7 LAB L100.1700 32-36 g/gl Normal MCHC 32.1 LAB L100.1810 11.6-14.6 % Normal RDW CV 13.4 LAB L100.1820 35.1-43.9 fl High RDW SD 44.3 LAB L100.1900 150-450 K/mm3 High PLT 549 LAB L100.2000 6.2-12.0 fl Normal MPV 11.0 Performed By: #### L100.0500 #### [facility] [place], [address] PROTEIN, TOTAL Collected: 07/31/2017 Status: F Source: [place] 2:17 PM [facility] REPOSITORY TYPE CODE TESTS RESULT OUT OF RANGE REFERENCE UNITS LAB L501.1500 6.4-8.2 g/dL Normal T PROT 7.8 LAB L501.1950 2.2-4.2 g/dL High GLOB 4.4 LAB L501.2000 0.9-2.4 RATIO Low A/G 0.8 Performed By: #### L001.0705, L500.3600, L501.4100, L501.4305, L501.4405, L501.4600, L501.4700 #### [facility] [address] [place], [place], [address] RENAL PROFILE Collected: 07/31/2017 Status: F Source: [place] 2:17 PM [facility] REPOSITORY TYPE CODE TESTS RESULT OUT OF RANGE REFERENCE UNITS LAB L501.0100 74-106 mg/dL High GLU 154 Result Comment: Fasting Glucose result greater than or equal to 126 mg/dL suggests DIABETES MELLITUS per A.D.A. criteria. Please note revised GLUCOSE reference range effective 2017. LAB L501.1000 7-18 mg/dL High BUN 49 LAB L501.1100 0.70-1.30 mg/dL High CREAT,SERUM 2.57 Result Comment: The validity of the calculated GFR AND GFRAA in patients over 70 years has not been determined. Clinical correlation is essential. LAB L501.1110 >60 mL/min Low EST GFR 30 Result Comment: Non- GFR Calc LAB L501.1115 >60 mL/min Low EST GFR - AA 37 Result Comment: GFR Calc LAB L501.1300 10-20 RATIO Normal BUN/CRE 19.1 LAB L501.1800 3.2-5.0 g/dL Normal ALB 3.4 LAB L501.2200 8.5-10.1 mg/dL Low CA 8.3 LAB L501.2300 2.5-4.9 mg/dL Normal PHOS 4.3 LAB L501.5300 136-145 mmol/L NA Normal 139 LAB L501.5600 3.5-5.1 mmol/L High K 5.2 LAB L501.5900 98-107 mmol/L CL Normal 105 LAB L501.6100 21.0-32.0 mmol/L Normal CO2 26.0 Performed By: #### L001.0705, L500.3600, L501.4100, L501.4305, L501.4405, L501.4600, L501.4700 #### [facility] [address] [place], [address] AST(SGOT) Collected: 07/31/2017 Status: F Source: [place] 2:17 PM [facility] REPOSITORY TYPE CODE TESTS RESULT OUT OF RANGE REFERENCE UNITS LAB L501.4100 15-37 U/L Normal AST 35 Performed By: #### L001.0705, L500.3600, L501.4100, L501.4305, L501.4405, L501.4600, L501.4700 #### [facility] [address] [place], [address] ALKALINE PHOSPHATASE Collected: 07/31/2017 Status: F Source: [place] 2:17 PM [facility] REPOSITORY TYPE CODE TESTS RESULT OUT OF RANGE REFERENCE UNITS LAB L501.4305 45-117 U/L High ALK P 156 Performed By: #### L001.0705, L500.3600, L501.4100, L501.4305, L501.4405, L501.4600, L501.4700 #### [facility] [address] [place], [address] ALANINE AMINOTRANSFERAS Collected: 07/31/2017 Status: F Source: [place] (SGPT) 2:17 PM [facility] REPOSITORY TYPE CODE TESTS RESULT OUT OF RANGE REFERENCE UNITS LAB L501.4405 16-61 U/L Normal ALT 42 Result Comment: Please note revised ALT reference range effective 2017. Performed By: #### L001.0705, L500.3600, L501.4100, L501.4305, L501.4405, L501.4600, L501.4700 #### [facility] [address] [place], [place], [address] BILIRUBIN, TOTAL Collected: 07/31/2017 Status: F Source: [place] 2:17 PM [facility] REPOSITORY TYPE CODE TESTS RESULT OUT OF RANGE REFERENCE UNITS LAB L501.4600 0.20-1.00 mg/dL Normal T BILI 0.30 Performed By: #### L001.0705, L500.3600, L501.4100, L501.4305, L501.4405, L501.4600, L501.4700 #### [facility] [address] [place], [address] BILIRUBIN, DIRECT Collected: 07/31/2017 Status: F Source: [place] 2:17 PM [facility] REPOSITORY TYPE CODE TESTS RESULT OUT OF RANGE REFERENCE UNITS LAB L501.4700 0.00-0.30 mg/dL Normal D BILI 0.07 Performed By: #### L001.0705, L500.3600, L501.4100, L501.4305, L501.4405, L501.4600, L501.4700 #### [facility] [address] [place], [address] HEMOGLOBIN A1C Collected: 07/31/2017 Status: F Source: [place] 2:17 PM [facility] REPOSITORY TYPE CODE TESTS RESULT OUT OF RANGE REFERENCE UNITS LAB L501.9985 4.2-6.3 % High HGB A1C 8.2 Performed By: #### L501.9985 #### [facility] [address] [place], [address] PROGRESS Observed: 07/31/2017 Status: COMPLETED Source: [place] 1:48 PM [facility] REPOSITORY HNO ID: [id number] Author: Corinne (nAgie) Older Service: (none) Author Type: Nurse Practitioner Type: Progress Notes Filed: 08/01/2017 9:46 AM Note Text: Hospital records from [facility] received and reviewed. Patient admitted on 07/13/17 for hematuria from suprapubic catheter and discharged on 07/23/17. Hospital course was complicated by UTI with yeast, anemia from blood loss and acute DVT right axilla from PICC line. UTI was treated by infectious disease with two week course of Diflucan 200 mg daily. Anemia-initial Hgb 7.6, most recent at hospital on 07/23 was 8.4. DVT- Heme consulted. Started on Eliquis 2.5 mg BID, advised 3 months of anticoagulation for provoked DVT. Also recommended repeat hypercoag work-up in 6 weeks specifically lupus to evaluate for APA syndrome. ASSESSMENT/PLAN: 1. DVT of left axillary vein, acute (HCC) - ICD9: 453.84, ICD10: I82.A12 Continue with Eliquis as prescribed x total of 3 months Repeat hypercoag panel in 6 weeks 2. Yeast UTI - ICD9: 112.2, ICD10: B37.49 Continue with Diflucan as prescribed Corinne Moran CNP PROGRESS Observed: 07/31/2017 Status: COMPLETED Source: [place] 9:48 AM [facility] [place] REPOSITORY HNO ID: [id number] Author: Corinne Valdez) Dean Service: (none) Author Type: Nurse Practitioner Type: Progress Notes Filed: 08/01/2017 10:58 AM Note Text: CC: Hospital follow-up HPI Jaron Morse is a 37 year old male who presents today for hospital follow-up. Patient admitted to [facility] for hematuria with blood clots. No records available at this time. Patient has mild intellectual disability, accompanied by caregiver from [facility]. Per patient he required 1 unit of blood during admission. Also developed blood clot in right arm from PICC line. Patient unsure about cause of bleeding, states they irrigated his suprapubic catheter with a lot of salt water. Patient saw urologist at [facility] last week for discharge follow- up. Denies any more bleeding from catheter or pain. Urine is normal color. Does reports intermittent dizziness and lightheadedness since discharge that mostly occurs when standing up/walking and also and after eating. Also has intermittent periods of feeling really hot, then cold Symptoms are stable. No syncope, SOB, chest pain, heart palpitations. Appetite is normal, eating same amount of foods as usual. Drinking 1-2 bottles a day of diet Dr. Gandhi/[place], thermos of coffee a day and 2 to 3 cups of water a day. No low blood sugars during dizzy spells, blood sugars have been well controlled per patient. REVIEW OF SYSTEMS General: no fevers, no chills, no night sweats and no significant changes in weight Respiratory: no cough, no wheezing, no hemoptysis Cardiovascular: no chest pain, no chest pressure and no swelling GI: Negative for abdominal discomfort, blood in stools or black stools, change in bowel habit, heart burn, nausea, vomiting PAST MEDICAL HISTORY Diagnosis Date - Acute deep vein thrombosis (DVT) of right upper extremity (HCC) 03/19/15 Diagnosed during hospital admission; coumadin started - Allergic rhinitis - Attention deficit disorder with hyperactivity(314.01) - Chronic renal failure Dr. Ricci managing - Fractures of foot 03/2006 Nondisplaced fractures, bases, second and third metatarsals. - Hand fracture 07/2012 right - Incisional infection 02/04/16 - OTHER MENTAL RETARDATION - MILD 02/07/2005 - Presence of suprapubic catheter (HCC) Dr. Frias - Type I (juvenile type) diabetes mellitus without mention of complication, not stated as uncontrolled 02/04/2005 Dr. Olmedo PAST SURGICAL HISTORY Procedure Laterality Date - APPENDECTOMY 2000 - AV FUSE, UPPR ARM, CEPHALIC 12/17/15 Transposition left upper arm cephalic vein to brachial artery arteriovenous fistula creation - COLONOSCOP W/ OR W/O BRSH SPEC 12/04/14 decompression for pseudoobstruction - COLONOSCOPY 08/21/2012 and EGD - EGD W/REM FB STOMACH/DUOD 01/02/2017 removal of PEG tube with EGD to remove fragment - EGD W/REM FB STOMACH/DUOD 12/2016 - IR VASCULAR ACCESS TEAM PICC REPOSITION 04/04/2015 - MIDLINE INSERTION/CONSULT 03/03/2015 - PAST SURGICAL HISTORY OF Laparotomy - PAST SURGICAL HISTORY OF 01/22/2015 negative exploratory laparotomy for pneumatosis intestinalis high grade bowel obstruction - PICC LINE INSERT/CONSULT 04/02/2015 - PICC LINE INSERT/CONSULT 04/03/2015 - SUPRAPUBIC CATHETER ALLERGIES Seasonal Allergies MEDICATIONS insulin glargine (LANTUS SOLOSTAR) 100 unit/mL (3 mL) inpn Inject 10 Units subcutaneously twice daily. polyethylene glycol 3350 (MIRALAX, GLYCOLAX) 17 gram/dose powder MIX 1 CAPFUL (17 GMS) IN 8 OZ OF WATER 2 TIMES DAILY; IF NO BM BY 8PM, GIVE 3RD DOSE aspirin, enteric coated (ASPIRIN, ENTERIC COATED) 81 mg EC tablet TAKE (1) TABLET BY MOUTH DAILY IN THE MORNING. pantoprazole DR (PROTONIX) 40 mg tablet TAKE 1 TABLET BY MOUTH ONCE DAILY 1/2 HR BEFORE BREAKFAST citric mhbs-jgnwveewqdo-epk carb (RENACIDIN) 6.602-3.268 gram/100 mL irrigation 30 mL by INTRAVESICAL route three times daily. ND-ACID GAS RELIEF 80 mg chewable tablet CHEW 1 TABLET BY MOUTH WITH MEALS AND AT BEDTIME olopatadine (PAZEO) 0.7 % drop Use 1 Drop in eyes once daily. metoprolol tartrate, short acting, (LOPRESSOR) 25 mg tablet TAKE (1/2) TABLET BY MOUTH TWICE DAILY. ATENOLOL ORAL Take by mouth. Pt unsure of daose senna (SENNA LAX) 8.6 mg tab Take 1 tablet by mouth twice daily. atorvastatin (LIPITOR) 10 mg tablet TAKE ONE-HALF (1/2) TABLET AT BEDTIME. Insulin Lispro, Human, (HUMALOG KWIKPEN) 100 unit/mL inpn Inject 6 Units subcutaneously w MEALS. And additional sliding scale as instructed TDD: 30 glucose (DEX4 GLUCOSE POUCH PACK) 4 gram chewable tablet Take 4 tablets by mouth as needed for Low Blood Sugar. Lancets lancets Test blood sugar(s) 8 times daily. Dx: Type 2 DM - Uncontrolled E11.65 Insulin: Yes blood sugar diagnostic (BLOOD GLUCOSE TEST) test strip Test blood sugar(s) 8 times daily. Dx: Type 1 DM - Uncontrolled E10.69 Insulin: Yes insulin needles, DISPOSABLE, (ULTICARE PEN NEEDLE) 31 gauge x 5/16 ndle TAKE FIVE- SIX INJECTIONS DAILY INSTRUCTED fluticasone (FLONASE) 50 mcg/actuation nasal spray USE 2 SPRAYS IN EACH NOSTRIL ONCE DAILY. RINSE MOUTH AFTER USE. Ascorbic Acid (VITAMIN C) 1,000 mg tablet Take 1 tablet by mouth once daily. melatonin 3 mg Take 1 tablet by mouth daily at bedtime. oxybutynin (DITROPAN) 5 mg tablet Take 1 tablet by mouth as needed (once daily as needed for bladder spasms). loratadine (CLARITIN) 10 mg tablet Take 1 tablet by mouth once daily. albuterol HFA (PROVENTIL HFA, VENTOLIN HFA) 90 mcg/actuation inhaler Inhale 2 Puffs as instructed every 4 hours as needed. QUEtiapine (SEROQUEL) 200 mg tablet TAKE (1) TABLET BY MOUTH TWICE A DAY. QUEtiapine (SEROQUEL) 100 mg tablet TAKE 1 TABLET BY MOUTH ONCE DAILY AT 5 PM ammonium lactate (LAC-HYDRIN) 12 % cream Apply 1 application to affected area twice daily. FLUoxetine HCl 20 mg tablet Take 1 tablet by mouth once daily. COMPOUNDED PRESCRIPTION Please provide [employer] glucocard test strips to check blood sugar four to six Times a day bisacodyl (LAXATIVE, BISACODYL,) 10 mg supp 1 Suppository by RECTAL route once daily as needed. for constipation FLUoxetine (PROZAC) 10 mg capsule Take 1 capsule by mouth once daily. (Dr. Jia Khalil adding to 20 mg dose) docusate sodium (COLACE) 100 mg capsule Take 1 capsule by mouth twice daily as needed for Constipation. glucagon (GLUCAGEN) 1 mg/mL injection Inject 1 mg intramuscularly as needed. mupirocin (BACTROBAN) 2 % ointment Apply 1 application to affected area three times daily. Until clear Cholecalciferol, Vitamin D3, 5,000 unit cap Take 1 capsule by mouth once daily. guaiFENesin (MUCINEX) 600 mg 12 hr tablet Take 2 tablets by mouth twice daily. hydrocortisone valerate (WESTCORT) 0.2 % cream Apply 1 application to affected area twice daily. For rash behind ears and face. ketoconazole (NIZORAL) 2 % shampoo Apply lather to affected skin on face and rinse off after 2 to 5 minutes. Use daily as needed. Dispense 1 bottle, not 1 ml. carbamide peroxide (DEBROX) 6.5 % otic solution Use 5 Drops in both ears twice daily. FAMILY HISTORY Problem Relation Age of Onset - unknown [Other] [OTHER] - Diabetes Father Diabetic, unsure of which type, did not want to provide additional FH details. Social History Substance Use Topics - Smoking status: Never Smoker - Smokeless tobacco: Never Used - Alcohol use No PHYSICAL EXAM BP 139/89 Pulse 88 Temp 36.3 ?C (97.3 ?F) (Temporal Artery) Resp 16 Wt 96.2 kg (212 lb) SpO2 95% BMI 35.83 kg/m2 General Appearance: well appearing, in no acute distress, alert Pysch: mood and affect flat and restricted Skin: Skin color, texture, turgor normal for age; Eyes: conjunctiva pink and moist, no icterus, sclera white, non-injected Lungs: Lungs clear to auscultation. No wheezing, rhonchi, rales Heart: RRR without murmur, gallop, or rubs. No ectopy, Heart sounds distant Abdomen: Abdomen soft, non-tender. Bowel sounds normal. : Suprapubic catheter site normal, no drainage or redness. Urine in leg bag clear, light yellow Extremities: No deformities. Good capillary refill. Pulses: 2+. Left arm: AV fistula WNL. Positive for bruit and thrill. Right upper arm: Resolving erythema and induration. No cords. No signs of infection at PICC insertion site. ASSESSMENT/PLAN: SEE ADDENDUM FOR UPDATED PLAN 1. Gross hematuria - ICD9: 599.71, ICD10: R31.0 (primary diagnosis) Resolved. Continue with follow-ups with urology and suprapubic catheter care including flushes as ordered Call office if hematuria recurs 2. Suprapubic catheter (HCC) - ICD9: V44.59, ICD10: Z93.59 As above 3. Blood loss anemia - ICD9: 280.0, ICD10: D50.0 Likely cause of dizziness/lightheadedness. No alarm symptoms or exam findings. No symptoms of any unusual bleeding Repeat labs done last week, no results in EPIC. Requested results be faxed to this office for review Follow-up pending results of labs 4. 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 CKD (chronic kidney disease) stage 4, GFR 15-29 ml/min ([facility]) - ICD9: 585.4, ICD10: N18.4 Follow-up with nephrology as scheduled Corinne Older, [employer] Prescription instructions reviewed with patient as applicable. Potential red flag symptoms discussed with the patient. Reviewed appropriate action plan to take if red flag symptoms occur. Patient agreeable to treatment plan. .GFR Collected: 07/23/2017 Status: F Source: [place] 4:57 PM [facility]POS[facility] TYPE CODE TESTS RESULT OUT OF REFERENCE UNITS RANGE LAB GFRAA(LOINC ml/min/1.73 ) sqm GFR 45 [place] Result Comment: GFR Population mean for , Non- Americans Ages 20-29 = 116 mL/min/1.73 sq.m. Ages 30-39 = 107 mL/min/1.73 sq.m. Ages 40-49 = 99 mL/min/1.73 sq.m. Ages 50-59 = 93 mL/min/1.73 sq.m. Ages 60-69 = 85 mL/min/1.73 sq.m. Ages 70+ = 75 mL/min/1.73 sq.m. Chronic Kidney Disease: Less than 60 mL/min/1.73 square meters End Stage Renal Disease: Less than 15 mL/min/1.73 square meters LAB GFRNO(LOINC) ml/min/1.73sqm GFR Non- 37 Result Comment: GFR Population mean for , Non- Americans Ages 20-29 = 116 mL/min/1.73 sq.m. Ages 30-39 = 107 mL/min/1.73 sq.m. Ages 40-49 = 99 mL/min/1.73 sq.m. Ages 50-59 = 93 mL/min/1.73 sq.m. Ages 60-69 = 85 mL/min/1.73 sq.m. Ages 70+ = 75 mL/min/1.73 sq.m. Chronic Kidney Disease: Less than 60 mL/min/1.73 square meters End Stage Renal Disease: Less than 15 mL/min/1.73 square meters Performed By: #### BMP, GFR #### [place] [address] BMP Collected: 07/23/2017 Status: F Source: [facility] 4:57 PM [facility] REPOSITORY TYPE CODE TESTS RESULT OUT OF REFERENCE UNITS RANGE LAB GLU(LOINC) 70-110 mg/dL Glucose High Level 156 LAB NA(LOINC) 136-145 mEq/L Sodium Level 138 LAB K(LOINC) 3.5-5.0 mEq/L Potassium Level 4.7 LAB CL(LOINC) 98-110 mEq/L Chloride 98 LAB CO2(LOINC) 22-32 mEq/L CO2 31 LAB EBAL(LOINC 4.0-15.0 mEq/L ) Electrolyte Balance 9.0 LAB BUN(LOINC) 8.0-22.0 mg/dL BUN High 35.0 LAB CRE(LOINC) 0.60-1.40 mg/dL Creatinine High Lvl (s) 2.06 LAB BC(LOINC) 10.0-22.0 ratio BUN/Creatinine 17.0 Ratio LAB CA(LOINC) 8.4-10.1 mg/dL Low Calcium Lvl 8.2 Performed By: #### BMP, GFR #### [address] [address] .GFR Collected: 07/23/2017 Status: F Source: [facility] 1:51 PM [facility] REPOSITORY TYPE CODE TESTS RESULT OUT OF REFERENCE UNITS RANGE LAB GFRAA(LOINC ml/min/1.73 ) sqm GFR 59 [place] Result Comment: GFR Population mean for , Non- Americans Ages 20-29 = 116 mL/min/1.73 sq.m. Ages 30-39 = 107 mL/min/1.73 sq.m. Ages 40-49 = 99 mL/min/1.73 sq.m. Ages 50-59 = 93 mL/min/1.73 sq.m. Ages 60-69 = 85 mL/min/1.73 sq.m. Ages 70+ = 75 mL/min/1.73 sq.m. Chronic Kidney Disease: Less than 60 mL/min/1.73 square meters End Stage Renal Disease: Less than 15 mL/min/1.73 square meters LAB GFRNO(LOINC) ml/min/1.73sqm GFR Non- 48 Result Comment: GFR Population mean for , Non- Americans Ages 20-29 = 116 mL/min/1.73 sq.m. Ages 30-39 = 107 mL/min/1.73 sq.m. Ages 40-49 = 99 mL/min/1.73 sq.m. Ages 50-59 = 93 mL/min/1.73 sq.m. Ages 60-69 = 85 mL/min/1.73 sq.m. Ages 70+ = 75 mL/min/1.73 sq.m. Chronic Kidney Disease: Less than 60 mL/min/1.73 square meters End Stage Renal Disease: Less than 15 mL/min/1.73 square meters Performed By: #### GFR, BMP #### [address] [address] BMP Collected: 07/23/2017 Status: F Source: [facility] 1:51 PM [facility] REPOSITORY TYPE CODE TESTS RESULT OUT OF RANGE REFERENCE UNITS LAB GLU(LOINC) 70-110 mg/dL Glucose Abnormal Level 46 Alert LAB NA(LOINC) 136-145 mEq/L High Sodium Level 147 LAB K(LOINC) 3.5-5.0 mEq/L Low Potassium Level 3.3 LAB CL(LOINC) 98-110 mEq/L High Chloride 111 LAB CO2(LOINC) 22-32 mEq/L CO2 27 LAB EBAL(LOINC 4.0-15.0 mEq/L ) Electrolyte Balance 9.0 LAB BUN(LOINC) 8.0-22.0 mg/dL High BUN 27.0 LAB CRE(LOINC) 0.60-1.40 mg/dL High Creatinine Lvl (s) 1.63 LAB BC(LOINC) 10.0-22.0 ratio BUN/Creatinine 16.6 Ratio LAB CA(LOINC) 8.4-10.1 mg/dL Calcium Lvl Abnormal 6.6 Alert Performed By: #### GFR, BMP #### [place] [address] CBC Collected: 07/23/2017 Status: F Source: [facility] 5:06 AM [facility] REPOSITORY TYPE CODE TESTS RESULT OUT OF REFERENCE UNITS RANGE LAB WBC(LOINC) 4.50-10.80 10 3/mcL WBC 8.40 LAB RBCCT(LOINC 4.50-6.00 10 6/mcL ) Low RBC 2.60 LAB HGB(LOINC) 13.0-17.5 G/dL Low Hgb 8.4 LAB HCT(LOINC) 40.0-52.0 % Low Hct 24.7 LAB MCV(LOINC) 81.0-100.0 fL MCV 94.8 LAB MCH(LOINC) 27.0-33.0 pg MCH 32.3 LAB MCHC(LOINC) 32.0-36.0 G/dL MCHC 34.1 LAB RDW(LOINC) 11.5-15.5 % RDW 13.7 LAB PLT(LOINC) 150-450 10 3/mcL Platelet 317 LAB MPV(LOINC) 6.4-10.5 fL MPV 8.7 Performed By: #### BMP, ADIFF, MG, ANEU, CBC, GFR #### [address] [address] .AUTO DIFF Collected: 07/23/2017 Status: F Source: [facility] 5:06 AM [facility] REPOSITORY TYPE CODE TESTS RESULT OUT OF REFERENCE UNITS RANGE LAB JUAN A(LOINC) 50.0-75.0 % Neutrophil % 69.3 LAB LYM(LOINC) 20.0-40.0 % Low Lymphocyte % 19.2 LAB MON(LOINC) 2.0-13.0 % Monocyte % 8.0 LAB EO(LOINC) 0.0-6.0 % Eosinophil % 3.1 LAB BAS(LOINC) 0.0-2.5 % Basophil % 0.4 LAB ABLYM(LOIN 0.90-4.32 10 3/mcL C) Lymphocyte, 1.60 Absolute LAB ALESSANDRA(LOINC 0.09-1.40 10 3/mcL ) Monocyte, 0.70 Absolute LAB AEOS(LOINC 0.00-0.65 10 3/mcL ) Eosinophil, 0.30 Absolute LAB ABAS(LOINC 0.00-0.27 10 3/mcL ) Basophil, 0.00 Absolute Performed By: #### BMP, ADIFF, MG, ANEU, CBC, GFR #### [place] [address] .NEUABS Collected: 07/23/2017 Status: F Source: [facility] 5:06 AM [facility] REPOSITORY TYPE CODE TESTS RESULT OUT OF REFERENCE UNITS RANGE LAB ANEU(LOINC) 2.25-8.10 10 3/mcL Neutrophil, 5.80 Absolute Performed By: #### BMP, ADIFF, MG, ANEU, CBC, GFR #### [place] [address] MG Collected: 07/23/2017 Status: F Source: [facility] 5:06 [facility] REPOSITORY TYPE CODE TESTS RESULT OUT OF REFERENCE UNITS RANGE LAB MG(LOINC) 1.6-2.4 mg/dL Magnesium Lvl 1.6 Performed By: #### BMP, ADIFF, MG, ANEU, CBC, GFR #### [place] [address] BMP Collected: 07/23/2017 Status: F Source: [facility] 5:06 AM [facility] REPOSITORY TYPE CODE TESTS RESULT OUT OF REFERENCE UNITS RANGE LAB GLU(LOINC) 70-110 mg/dL Glucose High Level 324 LAB NA(LOINC) 136-145 mEq/L Sodium Level 139 LAB K(LOINC) 3.5-5.0 mEq/L Potassium High Level 5.8 LAB CL(LOINC) 98-110 mEq/L Chloride 101 LAB CO2(LOINC) 22-32 mEq/L CO2 31 LAB EBAL(LOINC 4.0-15.0 mEq/L ) Electrolyte Balance 7.0 LAB BUN(LOINC) 8.0-22.0 mg/dL BUN High 34.0 LAB CRE(LOINC) 0.60-1.40 mg/dL Creatinine High Lvl (s) 2.15 LAB BC(LOINC) 10.0-22.0 ratio BUN/Creatinine 15.8 Ratio LAB CA(LOINC) 8.4-10.1 mg/dL Calcium Lvl 8.5 Performed By: #### BMP, ADIFF, MG, ANEU, CBC, GFR #### [place] [address] .GFR Collected: 07/23/2017 Status: F Source: [facility] 5:06 AM [facility] REPOSITORY TYPE CODE TESTS RESULT OUT OF REFERENCE UNITS RANGE LAB GFRAA(LOINC ml/min/1.73 ) sqm GFR 43 [place] Result Comment: GFR Population mean for , Non- Americans Ages 20-29 = 116 mL/min/1.73 sq.m. Ages 30-39 = 107 mL/min/1.73 sq.m. Ages 40-49 = 99 mL/min/1.73 sq.m. Ages 50-59 = 93 mL/min/1.73 sq.m. Ages 60-69 = 85 mL/min/1.73 sq.m. Ages 70+ = 75 mL/min/1.73 sq.m. Chronic Kidney Disease: Less than 60 mL/min/1.73 square meters End Stage Renal Disease: Less than 15 mL/min/1.73 square meters LAB GFRNO(LOINC) ml/min/1.73sqm GFR Non- 35 Result Comment: GFR Population mean for , Non- Americans Ages 20-29 = 116 mL/min/1.73 sq.m. Ages 30-39 = 107 mL/min/1.73 sq.m. Ages 40-49 = 99 mL/min/1.73 sq.m. Ages 50-59 = 93 mL/min/1.73 sq.m. Ages 60-69 = 85 mL/min/1.73 sq.m. Ages 70+ = 75 mL/min/1.73 sq.m. Chronic Kidney Disease: Less than 60 mL/min/1.73 square meters End Stage Renal Disease: Less than 15 mL/min/1.73 square meters Performed By: #### BMP, ADIFF, MG, ANEU, CBC, GFR #### [place] [id number] Observed: 07/22/2017 Status: F Source: [facility] 12:13 PM [facility] REPOSITORY . MICRO - Microbiology PROCEDURE: Urine Culture [O1 *1] SOURCE: Urine, Franco Catheter BODY SITE: COLLECTED DATE/TIME: 07/22/2017 12:13 EST RECEIVED DATE/TIME: 07/22/2017 14:39 EST START DATE/TIME: 07/22/2017 14:39 EST FREE TEXT SOURCE: FINAL REPORTS Final Report [] Verified Date/Time/Personnel: 07/23/2017 11:36 EST >100,000 organisms per mL Yeast, not Gladis albicans Contact Microbiology within 72 hours if further identification is indicated ([id number]). [place] counts from a single urine are equivocal in determining infection vs. colonization of yeast. Multiple cultures at least 24 hours apart may be helpful in differentiating colonization from infection. Order Comments O1: Urine Culture fresh tube specimen Performing Locations *1: This test was performed at: [address], [facility] , [facility] Performed By: #### MARIAM #### [place] [address] BMP Collected: 07/22/2017 Status: F Source: [facility] 4:49 AM [facility] REPOSITORY TYPE CODE TESTS RESULT OUT OF REFERENCE UNITS RANGE LAB GLU(LOINC) 70-110 mg/dL Glucose High Level 191 LAB NA(LOINC) 136-145 mEq/L Sodium Level 145 LAB K(LOINC) 3.5-5.0 mEq/L Potassium Level 4.9 LAB CL(LOINC) 98-110 mEq/L Chloride 107 LAB CO2(LOINC) 22-32 mEq/L CO2 High 36 LAB EBAL(LOINC 4.0-15.0 mEq/L ) Low Electrolyte Balance 2.0 LAB BUN(LOINC) 8.0-22.0 mg/dL BUN High 30.0 LAB CRE(LOINC) 0.60-1.40 mg/dL Creatinine High Lvl (s) 2.20 LAB BC(LOINC) 10.0-22.0 ratio BUN/Creatinine 13.6 Ratio LAB CA(LOINC) 8.4-10.1 mg/dL Calcium Lvl 8.8 Performed By: #### GFR, BMP, ANEU, ADIFF, MG, CBC #### [address] [address] MG Collected: 07/22/2017 Status: F Source: [facility] 4:49 AM [facility] REPOSITORY TYPE CODE TESTS RESULT OUT OF REFERENCE UNITS RANGE LAB MG(LOINC) 1.6-2.4 mg/dL Magnesium Lvl 1.7 Performed By: #### GFR, BMP, ANEU, ADIFF, MG, CBC #### [address] [address] .GFR Collected: 07/22/2017 Status: F Source: [facility] 4:49 AM [facility] REPOSITORY TYPE CODE TESTS RESULT OUT OF REFERENCE UNITS RANGE LAB GFRAA(LOINC ml/min/1.73 ) sqm GFR 41 [place] Result Comment: GFR Population mean for , Non- Americans Ages 20-29 = 116 mL/min/1.73 sq.m. Ages 30-39 = 107 mL/min/1.73 sq.m. Ages 40-49 = 99 mL/min/1.73 sq.m. Ages 50-59 = 93 mL/min/1.73 sq.m. Ages 60-69 = 85 mL/min/1.73 sq.m. Ages 70+ = 75 mL/min/1.73 sq.m. Chronic Kidney Disease: Less than 60 mL/min/1.73 square meters End Stage Renal Disease: Less than 15 mL/min/1.73 square meters LAB GFRNO(LOINC) ml/min/1.73sqm GFR Non- 34 Result Comment: GFR Population mean for , Non- Americans Ages 20-29 = 116 mL/min/1.73 sq.m. Ages 30-39 = 107 mL/min/1.73 sq.m. Ages 40-49 = 99 mL/min/1.73 sq.m. Ages 50-59 = 93 mL/min/1.73 sq.m. Ages 60-69 = 85 mL/min/1.73 sq.m. Ages 70+ = 75 mL/min/1.73 sq.m. Chronic Kidney Disease: Less than 60 mL/min/1.73 square meters End Stage Renal Disease: Less than 15 mL/min/1.73 square meters Performed By: #### GFR, BMP, ANEU, ADIFF, MG, CBC #### [address] [address] CBC Collected: 07/22/2017 Status: F Source: [facility] 4:49 AM [facility] REPOSITORY TYPE CODE TESTS RESULT OUT OF REFERENCE UNITS RANGE LAB WBC(LOINC) 4.50-10.80 10 3/mcL WBC 9.00 LAB RBCCT(LOINC 4.50-6.00 10 6/mcL ) Low RBC 2.64 LAB HGB(LOINC) 13.0-17.5 G/dL Low Hgb 8.6 LAB HCT(LOINC) 40.0-52.0 % Low Hct 25.0 LAB MCV(LOINC) 81.0-100.0 fL MCV 94.9 LAB MCH(LOINC) 27.0-33.0 pg MCH 32.5 LAB MCHC(LOINC) 32.0-36.0 G/dL MCHC 34.2 LAB RDW(LOINC) 11.5-15.5 % RDW 13.9 LAB PLT(LOINC) 150-450 10 3/mcL Platelet 315 LAB MPV(LOINC) 6.4-10.5 fL MPV 8.6 Performed By: #### GFR, BMP, ANEU, ADIFF, MG, CBC #### [address] [address] .AUTO DIFF Collected: 07/22/2017 Status: F Source: [facility] 4:49 AM [facility] REPOSITORY TYPE CODE TESTS RESULT OUT OF REFERENCE UNITS RANGE LAB JUAN A(LOINC) 50.0-75.0 % Neutrophil % 68.5 LAB LYM(LOINC) 20.0-40.0 % Low Lymphocyte % 18.7 LAB MON(LOINC) 2.0-13.0 % Monocyte % 9.7 LAB EO(LOINC) 0.0-6.0 % Eosinophil % 2.9 LAB BAS(LOINC) 0.0-2.5 % Basophil % 0.2 LAB ABLYM(LOIN 0.90-4.32 10 3/mcL C) Lymphocyte, 1.70 Absolute LAB ALESSANDRA(LOINC 0.09-1.40 10 3/mcL ) Monocyte, 0.90 Absolute LAB AEOS(LOINC 0.00-0.65 10 3/mcL ) Eosinophil, 0.30 Absolute LAB ABAS(LOINC 0.00-0.27 10 3/mcL ) Basophil, 0.00 Absolute Performed By: #### GFR, BMP, ANEU, ADIFF, MG, CBC #### [address] [address] .NEUABS Collected: 07/22/2017 Status: F Source: [facility] 4:49 AM [facility] REPOSITORY TYPE CODE TESTS RESULT OUT OF REFERENCE UNITS RANGE LAB ANEU(LOINC) 2.25-8.10 10 3/mcL Neutrophil, 6.20 Absolute Performed By: #### GFR, BMP, ANEU, ADIFF, MG, CBC #### [place] [address] CBC Collected: 07/21/2017 Status: F Source: [facility] 5:17 AM [facility] REPOSITORY TYPE CODE TESTS RESULT OUT OF REFERENCE UNITS RANGE LAB WBC(LOINC) 4.50-10.80 10 3/mcL WBC 8.40 LAB RBCCT(LOINC 4.50-6.00 10 6/mcL ) Low RBC 2.64 LAB HGB(LOINC) 13.0-17.5 G/dL Low Hgb 8.5 LAB HCT(LOINC) 40.0-52.0 % Low Hct 24.9 LAB MCV(LOINC) 81.0-100.0 fL MCV 94.2 LAB MCH(LOINC) 27.0-33.0 pg MCH 32.3 LAB MCHC(LOINC) 32.0-36.0 G/dL MCHC 34.3 LAB RDW(LOINC) 11.5-15.5 % RDW 14.1 LAB PLT(LOINC) 150-450 10 3/mcL Platelet 283 LAB MPV(LOINC) 6.4-10.5 fL MPV 8.4 Performed By: #### MG, CBC, BMP, GFR, ADIFF, ANEU #### [place] [address] .AUTO DIFF Collected: 07/21/2017 Status: F Source: [facility] 5:17 AM [facility] REPOSITORY TYPE CODE TESTS RESULT OUT OF REFERENCE UNITS RANGE LAB JUAN A(LOINC) 50.0-75.0 % Neutrophil % 67.3 LAB LYM(LOINC) 20.0-40.0 % Low Lymphocyte % 17.2 LAB MON(LOINC) 2.0-13.0 % Monocyte % 11.1 LAB EO(LOINC) 0.0-6.0 % Eosinophil % 4.2 LAB BAS(LOINC) 0.0-2.5 % Basophil % 0.2 LAB ABLYM(LOIN 0.90-4.32 10 3/mcL C) Lymphocyte, 1.50 Absolute LAB ALESSANDRA(LOINC 0.09-1.40 10 3/mcL ) Monocyte, 0.90 Absolute LAB AEOS(LOINC 0.00-0.65 10 3/mcL ) Eosinophil, 0.40 Absolute LAB ABAS(LOINC 0.00-0.27 10 3/mcL ) Basophil, 0.00 Absolute Performed By: #### MG, CBC, BMP, GFR, ADIFF, ANEU #### [place] [address] .NEUABS Collected: 07/21/2017 Status: F Source: [facility] 5:17 AM [facility] REPOSITORY TYPE CODE TESTS RESULT OUT OF REFERENCE UNITS RANGE LAB ANEU(LOINC) 2.25-8.10 10 3/mcL Neutrophil, 5.70 Absolute Performed By: #### MG, CBC, BMP, GFR, ADIFF, ANEU #### [place] [address] MG Collected: 07/21/2017 Status: F Source: [facility] 5:17 AM [facility] REPOSITORY TYPE CODE TESTS RESULT OUT OF REFERENCE UNITS RANGE LAB MG(LOINC) 1.6-2.4 mg/dL Magnesium Lvl 1.7 Performed By: #### MG, CBC, BMP, GFR, ADIFF, ANEU #### [place] [address] .GFR Collected: 07/21/2017 Status: F Source: [facility] 5:17 AM [facility] REPOSITORY TYPE CODE TESTS RESULT OUT OF REFERENCE UNITS RANGE LAB GFRAA(LOINC ml/min/1.73 ) sqm GFR 43 [place] Result Comment: GFR Population mean for , Non- Americans Ages 20-29 = 116 mL/min/1.73 sq.m. Ages 30-39 = 107 mL/min/1.73 sq.m. Ages 40-49 = 99 mL/min/1.73 sq.m. Ages 50-59 = 93 mL/min/1.73 sq.m. Ages 60-69 = 85 mL/min/1.73 sq.m. Ages 70+ = 75 mL/min/1.73 sq.m. Chronic Kidney Disease: Less than 60 mL/min/1.73 square meters End Stage Renal Disease: Less than 15 mL/min/1.73 square meters LAB GFRNO(LOINC) ml/min/1.73sqm GFR Non- 35 Result Comment: GFR Population mean for , Non- Americans Ages 20-29 = 116 mL/min/1.73 sq.m. Ages 30-39 = 107 mL/min/1.73 sq.m. Ages 40-49 = 99 mL/min/1.73 sq.m. Ages 50-59 = 93 mL/min/1.73 sq.m. Ages 60-69 = 85 mL/min/1.73 sq.m. Ages 70+ = 75 mL/min/1.73 sq.m. Chronic Kidney Disease: Less than 60 mL/min/1.73 square meters End Stage Renal Disease: Less than 15 mL/min/1.73 square meters Performed By: #### MG, CBC, BMP, GFR, ADIFF, ANEU #### [place] [address] BMP Collected: 07/21/2017 Status: F Source: [facility] 5:17 AM [facility] REPOSITORY TYPE CODE TESTS RESULT OUT OF REFERENCE UNITS RANGE LAB GLU(LOINC) 70-110 mg/dL Glucose Level 83 LAB NA(LOINC) 136-145 mEq/L Sodium High Level 147 LAB K(LOINC) 3.5-5.0 mEq/L Potassium Level 4.7 LAB CL(LOINC) 98-110 mEq/L Chloride 109 LAB CO2(LOINC) 22-32 mEq/L CO2 High 34 LAB EBAL(LOINC 4.0-15.0 mEq/L ) Electrolyte Balance 4.0 LAB BUN(LOINC) 8.0-22.0 mg/dL BUN High 28.0 LAB CRE(LOINC) 0.60-1.40 mg/dL Creatinine High Lvl (s) 2.14 LAB BC(LOINC) 10.0-22.0 ratio BUN/Creatinine 13.1 Ratio LAB CA(LOINC) 8.4-10.1 mg/dL Calcium Lvl 8.5 Performed By: #### MG, CBC, BMP, GFR, ADIFF, ANEU #### [place] [address] DIMER Collected: 07/21/2017 Status: F Source: [facility] 12:53 AM [facility] REPOSITORY TYPE CODE TESTS RESULT OUT OF RANGE REFERENCE UNITS LAB DIMER(LOINC 0-230 ng/mL D-DU ) High D-Dimer 784 Result Comment: Results reported in D- DU ng/ml. Positive for D-dimer. A positive D-dimer may occur in the following: DVT, PE, DIC, Trauma, Cancer, Sepsis, , Rheumatoid arthritis, Myocardial infarction and Cirrhosis. Note: Not affected by Rheumatoid Factor <=1400 IU/mL The result of the D-Dimer test should be evaluated in the context of all the clinical and laboratory data available. In those instances where the laboratory result does not agree with the clinical evaluation, additional tests should be performed accordingly. Performed By: #### HOMO, APCV2, MARCIN, PTGEN, CIRAN, CARDI, DIMER #### [place] [address] HOMO Collected: 07/21/2017 Status: F Source: [facility] 12:53 AM [facility] REPOSITORY TYPE CODE TESTS RESULT OUT OF REFERENCE UNITS RANGE LAB HOMO(LOINC 3.0-11.9 umol/l ) Homocysteine (serum) 10.9 Performed By: #### HOMO, APCV2, MARCIN, PTGEN, CIRAN, CARDI, DIMER #### [place] [address] MARCIN Collected: 07/21/2017 Status: F Source: [facility] 12:53 AM [facility] REPOSITORY TYPE CODE TESTS RESULT OUT OF RANGE REFERENCE UNITS LAB MARCIN(LOINC) Neg 40 MRACIN Neg 40 Performed By: #### HOMO, APCV2, MARCIN, PTGEN, CIRAN, CARDI, DIMER #### [place] [address] CIRAN Collected: 07/21/2017 Status: F Source: [facility] 12:53 AM [facility] REPOSITORY TYPE CODE TESTS RESULT OUT OF REFERENCE UNITS RANGE LAB PLN(LOINC ) Platelet neutraliz. Positive LAB DRVV(LOIN 30.0-42.0 seconds C) Dil Mckay Viper High Venom 46.9 LAB CAROLYN(LOINC ) LA Interpretation See Below Result Comment: Lupus anticoagulant detected. Although results may represent valid findings for Lupus Anticoagulant, DRVVT results may be affected by presence of direct thrombin inhibitors, such as argatroban, dabigatran (Pradaxa) and Bivalirudin (Angiomax),and direct Xa inhibitors, such as rivaroxaban (Xarelto) and apixaban (Eliquis). Interpret Lupus Anticoagulant results with clinical correlation. Performed By: #### HOMO, APCV2, MARCIN, PTGEN, CIRAN, CARDI, DIMER #### [place] [address] CARDI Collected: 07/21/2017 Status: F Source: [facility] 12:53 AM [facility] REPOSITORY TYPE CODE TESTS RESULT OUT OF REFERENCE UNITS RANGE LAB [id number] GPL U/mL (LOINC) Cardiolipin IgG 1.8 Result Comment: REFERENCE RANGES FOR ANTI- CARDIOLIPIN ANTIBODIES BY EIA: Negative <10 U/mL Positive >= 12 U/mL Equivocal >= 10 - <12 U/mL INTERPRETATION OF ANTI-CARDIOLIPIN ANTIBODIES BY EIA: Negative No detectable antibodies to Cardiolipin. Positive Antibody to Cardiolipin detected. Equivocal Equivocal for antibodies to Cardiolipin. Repeat testing if still indicated. LAB [id number](LOINC) MPL U/mL Cardiolipin IgM 2.3 Result Comment: REFERENCE RANGES FOR ANTI- CARDIOLIPIN ANTIBODIES BY EIA: Negative <10 U/mL Positive >= 12 U/mL Equivocal >= 10 - <12 U/mL INTERPRETATION OF ANTI-CARDIOLIPIN ANTIBODIES BY EIA: Negative No detectable antibodies to Cardiolipin. Positive Antibody to Cardiolipin detected. Equivocal Equivocal for antibodies to Cardiolipin. Repeat testing if still indicated. Performed By: #### HOMO, APCV2, MARCIN, PTGEN, CIRAN, CARDI, DIMER #### [address] [address] APCV Collected: 07/21/2017 Status: F Source: [facility] 12:53 AM [facility] REPOSITORY TYPE CODE TESTS RESULT OUT OF REFERENCE UNITS RANGE LAB APCR(LOINC ratio ) APC Factor V 2.4 Resistance Result Comment: This APCV result demonstrates no Resistance to Activated Protein C. APC Factor V Resistance Reference Range: <= 2.3 Positive > 2.3 Negative Performed By: #### HOMO, APCV2, MARCIN, PTGEN, CIRAN, CARDI, DIMER #### [address] [address] PTGEN Collected: 07/21/2017 Status: F Source: [facility] 12:53 AM [facility] REPOSITORY TYPE CODE TESTS RESULT OUT OF RANGE REFERENCE UNITS LAB PTINT(LOINC ) PT Gene (NOTE) Mut Result Comment: Performing Pathologist: Dr. Greg Alvarez M.D., Ph.D. 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 PT Gene Mutation Method: This assay was performed by polymerase chain reaction and fluorescence monitoring using hybridization probes. Performed By: [facility] [address] [place] [address] Test Worker: Chyna Blanton M.D. IA#: [id number] Phone#: Performed By: #### HOMO, APCV2, MARCIN, PTGEN, CIRAN, CARDI, DIMER #### [address] [address] Observed: 07/21/2017 Status: F Source: [facility] 12:53 AM [facility] REPOSITORY . MICRO - Microbiology PROCEDURE: Urine Culture [*1] SOURCE: Urine, Franco Catheter BODY SITE: COLLECTED DATE/TIME: 07/21/2017 00:53 EST RECEIVED DATE/TIME: 07/21/2017 07:32 EST START DATE/TIME: 07/21/2017 07:32 EST FREE TEXT SOURCE: please send from tubing of subrapubic catheter FINAL REPORTS Final Report [] Verified Date/Time/Personnel: 07/22/2017 11:29 EST >100,000 organisms per mL Yeast, not Gladis albicans Contact Microbiology within 72 hours if further identification is indicated ([id number]). [place] counts from a single urine are equivocal in determining infection vs. colonization of yeast. Multiple cultures at least 24 hours apart may be helpful in differentiating colonization from infection. Performing Locations *1: This test was performed at: [facility], [address] [place] [address], [address] [place] [address] Performed By: #### CUR #### [address] [address] HH Collected: 07/20/2017 Status: F Source: [facility] 5:47 PM [facility] REPOSITORY TYPE CODE TESTS RESULT OUT OF RANGE REFERENCE UNITS LAB HGB(LOINC) 13.0-17.5 G/dL Low Hgb 8.2 LAB HCT(LOINC) 40.0-52.0 % Low Hct 24.0 Performed By: #### HH #### [place] [address] Observed: 07/20/2017 Status: F Source: [facility] 3:46 PM [facility] REPOSITORY . MICRO - Microbiology PROCEDURE: Culture Respiratory with Gram Stain [1 *1] SOURCE: Sputum BODY SITE: COLLECTED DATE/TIME: 07/20/2017 15:46 EST RECEIVED DATE/TIME: 07/20/2017 16:01 EST START DATE/TIME: 07/20/2017 16:01 EST FREE TEXT SOURCE: FINAL REPORTS Final Report [] Verified Date/Time/Personnel: 07/22/2017 07:58 EST Normal respiratory natalie present. Sensitivity testing not indicated. PRELIMINARY REPORTS Preliminary Report [] Verified Date/Time/Personnel: 07/21/2017 10:54 EST Culture results pending. STAINS GS [] Verified Date/Time/Personnel: 07/20/2017 23:58 EST Predominance of polys Rare Gram Positive Cocci Rare Gram Positive Rods Rare Yeast Interpretive Data 1: Culture Respiratory with Gram Stain Requests for Mycoplasma, Legionella, Fungi, Mycobacteria, Chlamydia, and Viruses require ordering of those individual tests. Performing Locations *1: This test was performed at: [facility], [address] [place] [address], [address] [place] [address] Performed By: #### CRESP #### [place] [id number] MABO Collected: 07/20/2017 Status: F Source: [facility] 12:32 PM [facility] REPOSITORY TYPE CODE TESTS RESULT OUT OF RANGE REFERENCE UNITS LAB ABORH(LOINC ) Unknown ABO/Rh O POS Interp Performed By: #### ANSM, ABOM #### [place] [id number] MABS Collected: 07/20/2017 Status: F Source: [facility] 12:32 PM [facility] REPOSITORY TYPE CODE TESTS RESULT OUT OF REFERENCE UNITS RANGE LAB ANSM(LOINC ) Antibody Negative ABSC Screen Manual Performed By: #### ANSM, ABOM #### [place] [id number] RBC (PRODUCT) Collected: 07/20/2017 Status: F Source: [facility] 7:51 AM [facility] REPOSITORY TYPE CODE TESTS RESULT OUT OF REFERENCE UNITS RANGE LAB RBCPR(LOINC ) RBC Product RBC Ready Ready for Pickup Performed By: #### RBCP #### [place] [id number] BG Collected: 07/20/2017 Status: F Source: [facility] 7:06 AM [facility] REPOSITORY TYPE CODE TESTS RESULT OUT OF REFERENCE UNITS RANGE LAB PH(LOINC) 7.380-7.460 pH 7.444 LAB PCO2(LOINC 32.0-46.0 mmHg ) pCO2 High 46.1 LAB PO2(LOINC) 74.0-108.0 mmHg pO2 87.2 LAB HCO3(LOINC 21.0-29.0 mmol/L ) HCO3 High 30.9 LAB TCO2(LOINC 22.0-30.0 mmol/L ) CO2 Totl High 32.3 LAB BE(LOINC) mmol/L Base Excess 5.8 LAB O2SAT(LOIN 92.0-96.0 % C) O2 Sat High 96.9 LAB BPRES(LOIN mmHg C) Barometric 732 Pressure Performed By: #### BG #### [place] [id number] LAC Collected: 07/20/2017 Status: F Source: [facility] 5:56 AM [facility] REPOSITORY TYPE CODE TESTS RESULT OUT OF REFERENCE UNITS RANGE LAB LAC(LOINC) 0.2-2.0 mmol/L Lactic Acid 0.7 Lvl Performed By: #### BMP, MYCO, MG, MORPH, LAC, DIFF, GFR, CBC #### [address] [address] CBC Collected: 07/20/2017 Status: F Source: [facility] 5:56 AM [facility] REPOSITORY TYPE CODE TESTS RESULT OUT OF RANGE REFERENCE UNITS LAB WBC(LOINC) 4.50-10.80 10 3/mcL WBC 5.80 LAB RBCCT(LOIN 4.50-6.00 10 6/mcL C) Low RBC 1.96 LAB HGB(LOINC) 13.0-17.5 G/dL Abnormal Alert Hgb 6.4 LAB HCT(LOINC) 40.0-52.0 % Low Hct 18.7 LAB MCV(LOINC) 81.0-100.0 fL MCV 95.5 LAB MCH(LOINC) 27.0-33.0 pg MCH 32.5 LAB MCHC(LOINC 32.0-36.0 G/dL ) MCHC 34.0 LAB RDW(LOINC) 11.5-15.5 % RDW 14.1 LAB PLT(LOINC) 150-450 10 3/mcL Platelet 211 LAB MPV(LOINC) 6.4-10.5 fL MPV 9.0 Performed By: #### DIAN, MYCO, MG, MORPH, LAC, DIFF, GFR, CBC #### [place] [address] MG Collected: 07/20/2017 Status: F Source: [facility] 5:56 AM [facility] REPOSITORY TYPE CODE TESTS RESULT OUT OF REFERENCE UNITS RANGE LAB MG(LOINC) 1.6-2.4 mg/dL Magnesium Lvl 1.6 Performed By: #### DIAN, MYCO, MG, MORPH, LAC, DIFF, GFR, CBC #### [address] [address] .GFR Collected: 07/20/2017 Status: F Source: [facility] 5:56 AM [facility] REPOSITORY TYPE CODE TESTS RESULT OUT OF REFERENCE UNITS RANGE LAB GFRAA(LOINC ml/min/1.73 ) sqm GFR 45 [place] Result Comment: GFR Population mean for , Non- Americans Ages 20-29 = 116 mL/min/1.73 sq.m. Ages 30-39 = 107 mL/min/1.73 sq.m. Ages 40-49 = 99 mL/min/1.73 sq.m. Ages 50-59 = 93 mL/min/1.73 sq.m. Ages 60-69 = 85 mL/min/1.73 sq.m. Ages 70+ = 75 mL/min/1.73 sq.m. Chronic Kidney Disease: Less than 60 mL/min/1.73 square meters End Stage Renal Disease: Less than 15 mL/min/1.73 square meters LAB GFRNO(LOINC) ml/min/1.73sqm GFR Non- 37 Result Comment: GFR Population mean for , Non- Americans Ages 20-29 = 116 mL/min/1.73 sq.m. Ages 30-39 = 107 mL/min/1.73 sq.m. Ages 40-49 = 99 mL/min/1.73 sq.m. Ages 50-59 = 93 mL/min/1.73 sq.m. Ages 60-69 = 85 mL/min/1.73 sq.m. Ages 70+ = 75 mL/min/1.73 sq.m. Chronic Kidney Disease: Less than 60 mL/min/1.73 square meters End Stage Renal Disease: Less than 15 mL/min/1.73 square meters Performed By: #### BMP, MYCO, MG, MORPH, LAC, DIFF, GFR, CBC #### [address] [address] BMP Collected: 07/20/2017 Status: F Source: [facility] 5:56 AM [facility] TYPE CODE TESTS RESULT OUT OF REFERENCE UNITS RANGE LAB GLU(LOINC) 70-110 mg/dL Glucose High Level 183 LAB NA(LOINC) 136-145 mEq/L Sodium Level 145 LAB K(LOINC) 3.5-5.0 mEq/L Potassium Level 4.7 LAB CL(LOINC) 98-110 mEq/L Chloride High 111 LAB CO2(LOINC) 22-32 mEq/L CO2 29 LAB EBAL(LOINC 4.0-15.0 mEq/L ) Electrolyte Balance 5.0 LAB BUN(LOINC) 8.0-22.0 mg/dL BUN High 27.0 LAB CRE(LOINC) 0.60-1.40 mg/dL Creatinine High Lvl (s) 2.07 LAB BC(LOINC) 10.0-22.0 ratio BUN/Creatinine 13.0 Ratio LAB CA(LOINC) 8.4-10.1 mg/dL Low Calcium Lvl 7.1 Performed By: #### BMP, MYCO, MG, MORPH, LAC, DIFF, GFR, CBC #### [address] [address] .MANUAL DIFF Collected: 07/20/2017 Status: F Source: [place] [address]:56 AM [facility] REPOSITORY TYPE CODE TESTS RESULT OUT OF REFERENCE UNITS RANGE LAB LIMIT(LOIN C) Cells Counted 100 LAB NEUM(LOINC 50.0-75.0 % ) Neutrophil %, 61.0 Manual LAB LYMM(LOINC 20.0-40.0 % ) Lymphocyte %, 21.0 Manual LAB EOM(LOINC) 2.0-13.0 % Monocyte %, Manual 12.0 Result Comment: 4.0 LAB BASM(LOINC) 0.0-2.5 % Basophil %, Manual 0.0 LAB BAND(LOINC) 0.0-5.0 % Bands 1.0 LAB MYEL(LOINC) % Myelocyte 1.0 LAB ANEUM(LOINC) 2.25-8.10 10 3/mcL Neutrophil, Abs Manual 3.60 LAB ABLYMM(LOINC) 0.90-4.32 10 3/mcL Lymphocyte, Abs Manual 1.22 LAB AMONM(LOINC) 0.09-1.40 10 3/mcL Monocyte, Abs Manual 0.70 LAB AEOSM(LOINC) 0.00-0.65 10 3/mcL Eosinophil, Abs Manual 0.23 LAB ABASM(LOINC) 0.00-0.27 10 3/mcL Basophil, Abs Manual 0.00 Performed By: #### BMP, MYCO, MG, MORPH, LAC, DIFF, GFR, CBC #### [address] [address] .MORPH Collected: 07/20/2017 Status: F Source: [place] [address]:56 AM [facility] REPOSITORY TYPE CODE TESTS RESULT OUT OF REFERENCE UNITS RANGE LAB PLTE(LOINC ) Platelet Normal Estimate LAB POLC([facility] ) Polychrom Slight Performed By: #### BMP, MYCO, MG, MORPH, LAC, DIFF, GFR, CBC #### [address] [address] MYCO Collected: 07/20/2017 Status: F Source: [facility] 5:56 AM [facility] REPOSITORY TYPE CODE TESTS RESULT OUT OF REFERENCE UNITS RANGE LAB [id number]([facility]) Mycoplasma IgM Negative Result Comment: INTERPRETATION OF MYCOPLASMA BY EIA (Effective 06/24/04): Negative No detectable antibodies to M. pneumoniae. Indicates absence of current or previous infection. Positive Reactive for antibodies to M. pneumoniae. Indicates a past or recent infection. Equivocal Equivocal for antibodies to M. pneumoniae. Repeat testing by an alternate method suggested. LAB CD:[id number]([facility]) Mycoplasma IgG Neg Result Comment: INTERPRETATION OF MYCOPLASMA BY EIA (Effective 06/24/04): Negative No detectable antibodies to M. pneumoniae. Indicates absence of current or previous infection. Positive Reactive for antibodies to M. pneumoniae. Indicates a past or recent infection. Equivocal Equivocal for antibodies to M. pneumoniae. Repeat testing by an alternate method suggested. Performed By: #### BMP, MYCO, MG, MORPH, LAC, DIFF, GFR, CBC #### [address] [address] Observed: 07/20/2017 Status: F Source: [facility] 5:56 AM [facility] REPOSITORY . MICRO - Microbiology PROCEDURE: Blood Culture (bacterial) [*1] SOURCE: Blood BODY SITE: COLLECTED DATE/TIME: 07/20/2017 05:56 EST RECEIVED DATE/TIME: 07/20/2017 07:16 EST START DATE/TIME: 07/20/2017 07:16 EST FREE TEXT SOURCE: FINAL REPORTS Final Report [] Verified Date/Time/Personnel: 07/25/2017 07:59 EST Blood Culture: No Growth at 5 days. PRELIMINARY REPORTS Preliminary Report [] Verified Date/Time/Personnel: 07/20/2017 07:59 EST Culture has been received in lab and is no growth to date. Routine cultures are held for 5 days. Performing Locations *1: This test was performed at: [address] Performed By: #### CBL #### [place] [address] Observed: 07/20/2017 Status: F Source: [facility] 5:56 AM [facility] RE[facility] . MICRO - Microbiology PROCEDURE: Blood Culture (bacterial and fungal) [*1] SOURCE: Blood BODY SITE: COLLECTED DATE/TIME: 07/20/2017 05:56 EST RECEIVED DATE/TIME: 07/20/2017 07:16 EST START DATE/TIME: 07/20/2017 07:16 EST FREE TEXT SOURCE: FINAL REPORTS Final Report [] Verified Date/Time/Personnel: 08/17/2017 07:11 EST Blood Culture with fungus: No growth at 4 weeks. PRELIMINARY REPORTS Preliminary Report [] Verified Date/Time/Personnel: 07/20/2017 07:59 EST Culture has been received in lab and is no growth to date. Culture will be held for four weeks. Performing Locations *1: This test was performed at: [address] Performed By: #### CFUNGB #### [place] [address] Observed: 07/19/2017 Status: F Source: [facility] 9:38 PM [facility] . MICRO - Microbiology PROCEDURE: Streptococcus Pneumoniae Urine Antig [1 *1] SOURCE: Urine, Franco Catheter BODY SITE: COLLECTED DATE/TIME: 07/19/2017 21:38 EST RECEIVED DATE/TIME: 07/19/2017 22:45 EST START DATE/TIME: 07/19/2017 22:46 EST FREE TEXT SOURCE: FINAL REPORTS Final Report [] Verified Date/Time/Personnel: 07/19/2017 23:36 EST Presumptive negative for pneumococcal pneumonia, suggesting no current or recent pneumococcal infection. Infection due to Strep pneumoniae cannot be ruled out since the antigen present in the sample may be below the detection limit of the test. Interpretive Data 1: Streptococcus Pneumoniae Urine Antig This test has not been evaluated on patients taking antibiotics for greater than 24 hours or on patients who have recently completed an antibiotic regimen. The accuracy of this test has not been proven in young children. Performing Locations *1: This test was performed at: [address] Performed By: #### SPAG #### [place] [address] Observed: 07/19/2017 Status: F Source: [facility] 9:38 PM [facility] REPOSITORY . MICRO - Microbiology PROCEDURE: Legionella Urine Ag [*1] SOURCE: Urine BODY SITE: COLLECTED DATE/TIME: 07/19/2017 21:38 EST RECEIVED DATE/TIME: 07/19/2017 22:45 EST START DATE/TIME: 07/19/2017 22:46 EST FREE TEXT SOURCE: FINAL REPORTS Final Report [] Verified Date/Time/Personnel: 07/19/2017 23:36 EST Presumptive negative for L. pneumophila serogroup 1 antigen in urine, suggesting no recent or current infection. Legionnaire's disease cannot be ruled out since other serogroups and species may also cause disease. Performing Locations *1: This test was performed at: [address] Performed By: #### CATRACHITA #### [place] [address] BMP Collected: 07/19/2017 Status: F Source: [facility] 7:21 PM [facility] REPOSITORY TYPE CODE TESTS RESULT OUT OF REFERENCE UNITS RANGE LAB GLU(LOINC) 70-110 mg/dL Glucose High Level 168 LAB NA(LOINC) 136-145 mEq/L Sodium Level 143 LAB K(LOINC) 3.5-5.0 mEq/L Potassium Level 4.8 LAB CL(LOINC) 98-110 mEq/L Chloride 106 LAB CO2(LOINC) 22-32 mEq/L CO2 29 LAB EBAL(LOINC 4.0-15.0 mEq/L ) Electrolyte Balance 8.0 LAB BUN(LOINC) 8.0-22.0 mg/dL BUN High 33.0 LAB CRE(LOINC) 0.60-1.40 mg/dL Creatinine High Lvl (s) 2.37 LAB BC(LOINC) 10.0-22.0 ratio BUN/Creatinine 13.9 Ratio LAB CA(LOINC) 8.4-10.1 mg/dL Low Calcium Lvl 8.2 Performed By: #### GFR, BMP #### [address] [address] .GFR Collected: 07/19/2017 Status: F Source: [facility] 7:21 PM [facility] TYPE CODE TESTS RESULT OUT OF REFERENCE UNITS RANGE LAB GFRAA(LOINC ml/min/1.73 ) sqm GFR 38 [place] Result Comment: GFR Population mean for , Non- Americans Ages 20-29 = 116 mL/min/1.73 sq.m. Ages 30-39 = 107 mL/min/1.73 sq.m. Ages 40-49 = 99 mL/min/1.73 sq.m. Ages 50-59 = 93 mL/min/1.73 sq.m. Ages 60-69 = 85 mL/min/1.73 sq.m. Ages 70+ = 75 mL/min/1.73 sq.m. Chronic Kidney Disease: Less than 60 mL/min/1.73 square meters End Stage Renal Disease: Less than 15 mL/min/1.73 square meters LAB GFRNO(LOINC) ml/min/1.73sqm GFR Non- 31 Result Comment: GFR Population mean for , Non- Americans Ages 20-29 = 116 mL/min/1.73 sq.m. Ages 30-39 = 107 mL/min/1.73 sq.m. Ages 40-49 = 99 mL/min/1.73 sq.m. Ages 50-59 = 93 mL/min/1.73 sq.m. Ages 60-69 = 85 mL/min/1.73 sq.m. Ages 70+ = 75 mL/min/1.73 sq.m. Chronic Kidney Disease: Less than 60 mL/min/1.73 square meters End Stage Renal Disease: Less than 15 mL/min/1.73 square meters Performed By: #### GFR, BMP #### [address] [address] VANCT Collected: 07/19/2017 Status: F Source: [facility] 7:21 PM [facility] TYPE CODE TESTS RESULT OUT OF RANGE REFERENCE UNITS LAB LD019(LOIN C) LDose Vancomycin:(trou See eMAR gh) LAB 4092-3 5.0-20.0 mcg/mL Abnormal VANCOMYCIN 21.5 Alert Result Comment: Call [place] pharmacy at EXT. [phone] Performed By: #### VANCT #### [place] [id number] [place] [address] IR PICC LINE PLACEMENT Observed: 07/19/2017 Status: F Source: [facility] 2:45 PM [facility] REPOSITORY ORIGINAL PROCEDURE(S): 1. PICC placement with fluoroscopy and ultrasound guidance 2. 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 Written informed consent obtained. Accompanying paperwork was verified for accuracy. Directed history and physical exam performed prior to the procedure. Medication reconciliation performed by nursing personnel. Procedure was performed using a cap, sterile gown, sterile gloves, a large sterile sheet, hand hygiene a nd 2% chlorhexidine for cutaneous antisepsis. The patient was positioned supine on the table and prepped and draped in usual sterile fashion. A critical pause was performed with assisting personnel just prior to the procedure with the patient's identity confirmed using 2 identifiers, confirming site and side. A preliminary ultrasound was performed demonstrating vessel patency with forward flow and normal waveforms. An image was obtained. 8 ml of 2% lidocaine was administered at the puncture site for local anesthesia. Under direct ultrasound guidance, a 21 gauge needle was used to access the vein. A wire was advanced and a peel-away sheath was placed over the wire after removing the needle. A small skin incision was made. Resistance was met by the guidewire at the level of the axilla. Subsequently, the wire was removed and venography was performed through the 5 Moroccan dilator. Digital subtraction angiography images demon strate a narrow caliber brachial vein that transitions to a normal sized subclavian vein, right brachiocephalic and superior vena cava. All veins are without filling defects. A 0.018 Glidewire was advan brijesh through the vessels. The customized catheter length was measured using the guidewire. After trimming the PICC to the appropriate length, it was advanced through the sheath lead by the wire. Fluoroscopy was used to guide catheter placement and verify tip position. The catheter was positioned with the tip near the cavoatrial junction. Function of catheter lumen was evaluated and appropriate. A CHG dressing was applied. The catheter was secured to the skin with suture. The patient tolerated the procedure well without immediate complic ation. Blood loss was minimal. Patient condition was stable. IMPRESSION: 1. Technically difficult but ultimately successful right upper extremity brachial vein dual lumen PICC placement with tip near the cavoatrial junction. 2. Narrow caliber brachial veins demonstrated on venography. Normal-appearing right subclavian vein and superior vena cava. Interpreted By: Phan Oropeza MD Preliminary Report By: Jose J Estrada [facility] Electronically Signed By: Phan Oropeza MD Dictated Date: 07/20/2017 5:35:50 PM Prelim Date: 07/20/2017 5:43:51 PM Sign Date: 07/20/2017 7:00:14 PM CRUR Collected: 07/19/2017 Status: F Source: [facility] 10:08 AM [facility] REPOSITORY TYPE CODE TESTS RESULT OUT OF REFERENCE UNITS RANGE LAB CRU(LOINC) mg/dL U Creatinine 16.4 Performed By: #### CRUR, UAMIC, NAUR, UA, UNUR #### [place] [address] UNUR Collected: 07/19/2017 Status: F Source: [facility] 10:08 AM [facility] REPOSITORY TYPE CODE TESTS RESULT OUT OF RANGE REFERENCE UNITS LAB UNU(LOINC) mg/dL U Urea 142.0 Performed By: #### CRUR, UAMIC, NAUR, UA, UNUR #### [place] [address] NAUR Collected: 07/19/2017 Status: F Source: [facility] 10:08 AM [facility] REPOSITORY TYPE CODE TESTS RESULT OUT OF REFERENCE UNITS RANGE LAB LYNNETTE(LOINC) mEq/L U Sodium 60.0 Performed By: #### CRUR, UAMIC, NAUR, UA, UNUR #### [place] [address] UA Collected: 07/19/2017 Status: F Source: [facility] 10:08 AM [facility] [place] TYPE CODE TESTS RESULT OUT OF RANGE REFERENCE UNITS LAB SPCUA(PARVEZ NC) UA Specimen Type Clean Catch LAB CLRUA(PARVEZ NC) UA Color Straw LAB APPUA(PARVEZ Clear NC) UA Appear Abnormal Cloudy LAB SGUA(LOIN 1.006-1.029 C) UA Spec Grav 1.010 LAB GLUA(LOIN Negative mg/dL C) UA Glucose Abnormal 500 LAB BILUA(PARVEZ Neg-Trace NC) UA Bili Negative LAB KETUA(PARVEZ Neg-Trace mg/dL NC) UA Ketones Negative LAB BLDUA(PARVEZ Neg-Trace NC) UA Blood Abnormal Small LAB PHUA(LOIN 5.0 - 8.0 C) UA pH 6.0 LAB PROUA(PARVEZ Negative mg/dL NC) UA Protein Negative LAB UROUA(PARVEZ 0.2-1.0 E.U./dL NC) UA Urobilinogen 0.2 LAB NITUA(PARVEZ Negative NC) UA Nitrite Negative LAB LEUUA(PARVEZ Negative NC) UA Leuk Est Abnormal Moderate Performed By: #### LYLE, UAMIC, NAUR, UA, UNUR #### [place] [address] UAMIC Collected: 07/19/2017 Status: F Source: [facility] 10:08 [facility] REPOSITORY TYPE CODE TESTS RESULT OUT OF RANGE REFERENCE UNITS LAB RBCUA(LOIN 0-2 /hpf C) UA RBC Rare LAB WBCUA(LOIN 0-5 /hpf C) UA Abnormal WBC 10-20 LAB EPIUA(LOIN 0-20 /hpf C) UA Squam Negative Epithelial LAB BACUA(LOIN Negative /hpf C) UA Abnormal Bacteria Trace LAB YSTUA(LOIN /hpf C) UA Abnormal Yeast 4+ Performed By: #### CRUR, UAMIC, NAUR, UA, UNUR #### [place] [address] Observed: 07/19/2017 Status: F Source: [facility] 10:08 AM [facility] REPOSITORY . MICRO - Microbiology PROCEDURE: Urine Culture [*1] SOURCE: Urine, Clean Catch BODY SITE: COLLECTED DATE/TIME: 07/19/2017 10:08 EST RECEIVED DATE/TIME: 07/19/2017 10:13 EST START DATE/TIME: 07/19/2017 10:13 EST FREE TEXT SOURCE: FINAL REPORTS Final Report [] Verified Date/Time/Personnel: 07/20/2017 14:48 EST >100,000 organisms per mL Yeast, not Gladis albicans Contact Microbiology within 72 hours if further identification is indicated ([id number]). [place] counts from a single urine are equivocal in determining infection vs. colonization of yeast. Multiple cultures at least 24 hours apart may be helpful in differentiating colonization from infection. PRELIMINARY REPORTS Preliminary Report [] Verified Date/Time/Personnel: 07/20/2017 11:34 EST >100,000 organisms per mL Yeast Identification to follow. Performing Locations *1: This test was performed at: [address], [address] [place] [address] Performed By: #### CUR #### [place] [address] XR CHEST 1 VIEW Observed: 07/19/2017 Status: F Source: [facility] 8:36 AM [facility] REPOSITORY ORIGINAL Chest one view 9:18 AM 07/19/2017 HISTORY: Worsening hypoxia with increasing shortness of breath COMPARISON: 07/18/2017 The heart is slightly prominent without vascular congestion. There is minimal midlung atelectasis bilaterally, a new finding since the prior exam. No definite confluent consolidation or pleural fluid seen. Interpreted By: Addy Calles MD Preliminary Report By: Addy Calles MD Electronically Signed By: Addy Calles MD Dictated Date: 07/19/2017 9:22:26 AM Prelim Date: 07/19/2017 9:22:26 AM Sign Date: 07/19/2017 9:22:57 AM BMP Collected: 07/19/2017 Status: F Source: [facility] 6:25 AM [facility] REPOSITORY TYPE CODE TESTS RESULT OUT OF REFERENCE UNITS RANGE LAB GLU(LOINC) 70-110 mg/dL Glucose High Level 189 LAB NA(LOINC) 136-145 mEq/L Sodium High Level 147 LAB K(LOINC) 3.5-5.0 mEq/L Potassium High Level 5.4 LAB CL(LOINC) 98-110 mEq/L Chloride High 112 LAB CO2(LOINC) 22-32 mEq/L CO2 25 LAB EBAL(LOINC 4.0-15.0 mEq/L ) Electrolyte Balance 10.0 LAB BUN(LOINC) 8.0-22.0 mg/dL BUN High 32.0 LAB CRE(LOINC) 0.60-1.40 mg/dL Creatinine High Lvl (s) 2.27 LAB BC(LOINC) 10.0-22.0 ratio BUN/Creatinine 14.1 Ratio LAB CA(LOINC) 8.4-10.1 mg/dL Low Calcium Lvl 8.3 Performed By: #### ADIFF, CBC, BMP, MORPH, A1C, ANEU, GFR #### [place] [address] .GFR Collected: 07/19/2017 Status: F Source: [facility] 6:25 AM [facility] TYPE CODE TESTS RESULT OUT OF REFERENCE UNITS RANGE LAB GFRAA(LOINC ml/min/1.73 ) sqm GFR 40 [place] Result Comment: GFR Population mean for , Non- Americans Ages 20-29 = 116 mL/min/1.73 sq.m. Ages 30-39 = 107 mL/min/1.73 sq.m. Ages 40-49 = 99 mL/min/1.73 sq.m. Ages 50-59 = 93 mL/min/1.73 sq.m. Ages 60-69 = 85 mL/min/1.73 sq.m. Ages 70+ = 75 mL/min/1.73 sq.m. Chronic Kidney Disease: Less than 60 mL/min/1.73 square meters End Stage Renal Disease: Less than 15 mL/min/1.73 square meters LAB GFRNO(LOINC) ml/min/1.73sqm GFR Non- 33 Result Comment: GFR Population mean for , Non- Americans Ages 20-29 = 116 mL/min/1.73 sq.m. Ages 30-39 = 107 mL/min/1.73 sq.m. Ages 40-49 = 99 mL/min/1.73 sq.m. Ages 50-59 = 93 mL/min/1.73 sq.m. Ages 60-69 = 85 mL/min/1.73 sq.m. Ages 70+ = 75 mL/min/1.73 sq.m. Chronic Kidney Disease: Less than 60 mL/min/1.73 square meters End Stage Renal Disease: Less than 15 mL/min/1.73 square meters Performed By: #### ADIFF, CBC, BMP, MORPH, A1C, ANEU, GFR #### [address] [address] .MORPH Collected: 07/19/2017 Status: F Source: [facility] 6:25 AM [facility] REPOSITORY TYPE CODE TESTS RESULT OUT OF REFERENCE UNITS RANGE LAB PLTE(LOINC) Platelet Normal Estimate Result Comment: Few large platelets seen. LAB ANIS(LOINC) Anisocytosis Slight LAB POIK(LOINC) Poik Slight LAB HYPC(LOINC) Hypochrom Slight LAB POLC(LOINC) Polychrom Slight Performed By: #### REED, CBC, BMP, MORPH, A1C, ANEU, GFR #### [address] [address] CBC Collected: 07/19/2017 Status: F Source: [facility] 6:25 AM [facility] REPOSITORY TYPE CODE TESTS RESULT OUT OF REFERENCE UNITS RANGE LAB WBC(LOINC) 4.50-10.80 10 3/mcL High WBC 12.50 LAB RBCCT(LOINC 4.50-6.00 10 6/mcL ) Low RBC 2.44 LAB HGB(LOINC) 13.0-17.5 G/dL Low Hgb 7.6 LAB HCT(LOINC) 40.0-52.0 % Low Hct 22.9 LAB MCV(LOINC) 81.0-100.0 fL MCV 94.0 LAB MCH(LOINC) 27.0-33.0 pg MCH 31.4 LAB MCHC(LOINC) 32.0-36.0 G/dL MCHC 33.4 LAB RDW(LOINC) 11.5-15.5 % RDW 13.9 LAB PLT(LOINC) 150-450 10 3/mcL Platelet 166 LAB MPV(LOINC) 6.4-10.5 fL High MPV 10.7 Performed By: #### ADIFF, CBC, BMP, MORPH, A1C, ANEU, GFR #### [place] [address] .AUTO DIFF Collected: 07/19/2017 Status: F Source: [facility] 6:25 AM [facility] REPOSITORY TYPE CODE TESTS RESULT OUT OF REFERENCE UNITS RANGE LAB JUAN A(LOINC) 50.0-75.0 % Neutrophil % 70.7 LAB LYM(LOINC) 20.0-40.0 % Low Lymphocyte % 13.2 LAB MON(LOINC) 2.0-13.0 % Monocyte % 12.4 LAB EO(LOINC) 0.0-6.0 % Eosinophil % 3.3 LAB BAS(LOINC) 0.0-2.5 % Basophil % 0.4 LAB ABLYM(LOIN 0.90-4.32 10 3/mcL C) Lymphocyte, 1.60 Absolute LAB ALESSANDRA(LOINC 0.09-1.40 10 3/mcL ) High Monocyte, 1.50 Absolute LAB AEOS(LOINC 0.00-0.65 10 3/mcL ) Eosinophil, 0.40 Absolute LAB ABAS(LOINC 0.00-0.27 10 3/mcL ) Basophil, 0.10 Absolute Performed By: #### ADIFF, CBC, BMP, MORPH, A1C, ANEU, GFR #### [place] [address] .NEUABS Collected: 07/19/2017 Status: F Source: [facility] 6:25 AM [facility] REPOSITORY TYPE CODE TESTS RESULT OUT OF REFERENCE UNITS RANGE LAB ANEU(LOINC) 2.25-8.10 10 3/mcL High Neutrophil, 8.80 Absolute Performed By: #### ADIFF, CBC, BMP, MORPH, A1C, ANEU, GFR #### [place] [address] A1C Collected: 07/19/2017 Status: F Source: [facility] 6:25 AM [facility] REPOSITORY TYPE CODE TESTS RESULT OUT OF RANGE REFERENCE UNITS LAB A1C(LOINC) 4.0-6.0 % High Hgb A1c 8.1 Performed By: #### ADIFF, CBC, BMP, MORPH, A1C, ANEU, GFR #### [place] [address] BMP Collected: 07/18/2017 Status: F Source: [facility] 2:25 PM [facility] REPOSITORY TYPE CODE TESTS RESULT OUT OF RANGE REFERENCE UNITS LAB GLU(LOINC) 70-110 mg/dL Glucose Abnormal Level 451 Alert LAB NA(LOINC) 136-145 mEq/L Sodium Level 140 LAB K(LOINC) 3.5-5.0 mEq/L High Potassium Level 5.8 LAB CL(LOINC) 98-110 mEq/L Chloride 107 LAB CO2(LOINC) 22-32 mEq/L CO2 24 LAB EBAL(LOINC 4.0-15.0 mEq/L ) Electrolyte Balance 9.0 LAB BUN(LOINC) 8.0-22.0 mg/dL High BUN 37.0 LAB CRE(LOINC) 0.60-1.40 mg/dL High Creatinine Lvl (s) 2.40 LAB BC(LOINC) 10.0-22.0 ratio BUN/Creatinine 15.4 Ratio LAB CA(LOINC) 8.4-10.1 mg/dL Low Calcium Lvl 8.0 Performed By: #### GFR, BMP #### [place] [address] .GFR Collected: 07/18/2017 Status: F Source: [facility] 2:25 PM [facility] REPOSITORY TYPE CODE TESTS RESULT OUT OF REFERENCE UNITS RANGE LAB GFRAA(LOINC ml/min/1.73 ) sqm GFR 38 [place] Result Comment: GFR Population mean for , Non- Americans Ages 20-29 = 116 mL/min/1.73 sq.m. Ages 30-39 = 107 mL/min/1.73 sq.m. Ages 40-49 = 99 mL/min/1.73 sq.m. Ages 50-59 = 93 mL/min/1.73 sq.m. Ages 60-69 = 85 mL/min/1.73 sq.m. Ages 70+ = 75 mL/min/1.73 sq.m. Chronic Kidney Disease: Less than 60 mL/min/1.73 square meters End Stage Renal Disease: Less than 15 mL/min/1.73 square meters LAB GFRNO(LOINC) ml/min/1.73sqm GFR Non- 31 Result Comment: GFR Population mean for , Non- Americans Ages 20-29 = 116 mL/min/1.73 sq.m. Ages 30-39 = 107 mL/min/1.73 sq.m. Ages 40-49 = 99 mL/min/1.73 sq.m. Ages 50-59 = 93 mL/min/1.73 sq.m. Ages 60-69 = 85 mL/min/1.73 sq.m. Ages 70+ = 75 mL/min/1.73 sq.m. Chronic Kidney Disease: Less than 60 mL/min/1.73 square meters End Stage Renal Disease: Less than 15 mL/min/1.73 square meters Performed By: #### GFR, BMP #### [place] [address] VANCT Collected: 07/18/2017 Status: F Source: [facility] 2:25 PM [facility] REPOSITORY TYPE CODE TESTS RESULT OUT OF REFERENCE UNITS RANGE LAB LD019(LOIN C) LDose Vancomycin:(trou See eMAR gh) LAB 4092-3 5.0-20.0 mcg/mL VANCOMYCIN 18.1 Performed By: #### VANCT #### [place] [address] XR CHEST 1 VIEW Observed: 07/18/2017 Status: F Source: [facility] 6:37 AM [facility] REPOSITORY ORIGINAL XR CHEST 1 VIEW PORTABLE AP TIME: 7:16 AM CLINICAL STATEMENT: abnormal breath sounds COMPARISON: 04/19/2015 FINDINGS: Examination is compromised by portable technique and patient body habitus. Lung volumes are low. The cardiomediastinal silhouette measures upper limits of normal in size for projection. No def inite consolidation, large pleural effusion, vascular congestion or pneumothorax is shown. IMPRESSION: No definite acute radiographic findings within the limits of the examination. Interpreted By: Funmilayo Carter Preliminary Report By: Funmilayo Carter Electronically Signed By: Funmilayo Carter Dictated Date: 07/18/2017 7:52:02 AM Prelim Date: 07/18/2017 7:52:02 AM Sign Date: 07/18/2017 7:54:38 AM BMP Collected: 07/18/2017 Status: F Source: [facility] 6:04 AM [facility] REPOSITORY TYPE CODE TESTS RESULT OUT OF REFERENCE UNITS RANGE LAB GLU(LOINC) 70-110 mg/dL Glucose High Level 271 LAB NA(LOINC) 136-145 mEq/L Sodium Level 143 LAB K(LOINC) 3.5-5.0 mEq/L Potassium Level 5.0 LAB CL(LOINC) 98-110 mEq/L Chloride High 111 LAB CO2(LOINC) 22-32 mEq/L CO2 24 LAB EBAL(LOINC 4.0-15.0 mEq/L ) Electrolyte Balance 8.0 LAB BUN(LOINC) 8.0-22.0 mg/dL BUN High 37.0 LAB CRE(LOINC) 0.60-1.40 mg/dL Creatinine High Lvl (s) 2.52 LAB BC(LOINC) 10.0-22.0 ratio BUN/Creatinine 14.7 Ratio LAB CA(LOINC) 8.4-10.1 mg/dL Low Calcium Lvl 8.1 Performed By: #### MORPH, ADIFF, CBC, BMP, GFR, ANEU #### [place] [address] .GFR Collected: 07/18/2017 Status: F Source: [facility] 6:04 AM [facility] TYPE CODE TESTS RESULT OUT OF REFERENCE UNITS RANGE LAB GFRAA(LOINC ml/min/1.73 ) sqm GFR 35 [place] Result Comment: GFR Population mean for , Non- Americans Ages 20-29 = 116 mL/min/1.73 sq.m. Ages 30-39 = 107 mL/min/1.73 sq.m. Ages 40-49 = 99 mL/min/1.73 sq.m. Ages 50-59 = 93 mL/min/1.73 sq.m. Ages 60-69 = 85 mL/min/1.73 sq.m. Ages 70+ = 75 mL/min/1.73 sq.m. Chronic Kidney Disease: Less than 60 mL/min/1.73 square meters End Stage Renal Disease: Less than 15 mL/min/1.73 square meters LAB GFRNO(LOINC) ml/min/1.73sqm GFR Non- 29 Result Comment: GFR Population mean for , Non- Americans Ages 20-29 = 116 mL/min/1.73 sq.m. Ages 30-39 = 107 mL/min/1.73 sq.m. Ages 40-49 = 99 mL/min/1.73 sq.m. Ages 50-59 = 93 mL/min/1.73 sq.m. Ages 60-69 = 85 mL/min/1.73 sq.m. Ages 70+ = 75 mL/min/1.73 sq.m. Chronic Kidney Disease: Less than 60 mL/min/1.73 square meters End Stage Renal Disease: Less than 15 mL/min/1.73 square meters Performed By: #### MORPH, ADIFF, CBC, BMP, GFR, ANEU #### [address] [address] CBC Collected: 07/18/2017 Status: F Source: [facility] 6:04 AM [facility] REPOSITORY TYPE CODE TESTS RESULT OUT OF RANGE REFERENCE UNITS LAB WBC(LOINC) 4.50-10.80 10 3/mcL High WBC 14.30 Result Comment: Capillary or microtainer specimen received. LAB RBCCT(LOINC) 4.50-6.00 10 6/mcL Low RBC 2.39 LAB HGB(LOINC) 13.0-17.5 G/dL Low Hgb 7.8 LAB HCT(LOINC) 40.0-52.0 % Low Hct 22.7 LAB MCV(LOINC) 81.0-100.0 fL MCV 95.0 LAB MCH(LOINC) 27.0-33.0 pg MCH 32.7 LAB MCHC(LOINC) 32.0-36.0 G/dL MCHC 34.4 LAB RDW(LOINC) 11.5-15.5 % RDW 13.8 LAB PLT(LOINC) 150-450 10 3/mcL Low Platelet 120 LAB MPV(LOINC) 6.4-10.5 fL High MPV 11.2 Performed By: #### MORPH, ADIFF, CBC, BMP, GFR, ANEU #### [address] [address] .MORPH Collected: 07/18/2017 Status: F Source: [facility] 6:04 AM [facility] REPOSITORY TYPE CODE TESTS RESULT OUT OF REFERENCE UNITS RANGE LAB PLTE(LOINC ) Slt Platelet Decreased Estimate Result Comment: Few platelet clumps seen. LAB POLC(LOINC) Polychrom Slight Performed By: #### MORPH, ADIFF, CBC, BMP, GFR, ANEU #### [address] [address] .AUTO DIFF Collected: 07/18/2017 Status: F Source: [facility] 6:04 AM [facility] REPOSITORY TYPE CODE TESTS RESULT OUT OF REFERENCE UNITS RANGE LAB JUAN A(LOINC) 50.0-75.0 % Neutrophil % 69.8 LAB LYM(LOINC) 20.0-40.0 % Low Lymphocyte % 14.5 LAB MON(LOINC) 2.0-13.0 % Monocyte High % 13.1 LAB EO(LOINC) 0.0-6.0 % Eosinophil % 2.2 LAB BAS(LOINC) 0.0-2.5 % Basophil % 0.4 LAB ABLYM(LOIN 0.90-4.32 10 3/mcL C) Lymphocyte, 2.10 Absolute LAB ALESSANDRA(LOINC 0.09-1.40 10 3/mcL ) High Monocyte, 1.90 Absolute LAB AEOS(LOINC 0.00-0.65 10 3/mcL ) Eosinophil, 0.30 Absolute LAB ABAS(LOINC 0.00-0.27 10 3/mcL ) Basophil, 0.10 Absolute Performed By: #### MORPH, ADIFF, CBC, BMP, GFR, ANEU #### [place] [id number] .NEUABS Collected: 07/18/2017 Status: F Source: [facility] 6:04 AM [facility] REPOSITORY TYPE CODE TESTS RESULT OUT OF REFERENCE UNITS RANGE LAB ANEU(LOINC) 2.25-8.10 10 3/mcL High Neutrophil, 9.90 Absolute Performed By: #### MORPH, ADIFF, CBC, BMP, GFR, ANEU #### [place] [address] Observed: 07/17/2017 Status: F Source: [facility]PCR 8:05 PM [facility] REPOSITORY . MICRO - Microbiology PROCEDURE: MRSA PCR [*1] SOURCE: Nares BODY SITE: COLLECTED DATE/TIME: 07/17/2017 20:05 EST RECEIVED DATE/TIME: 07/17/2017 20:28 EST START DATE/TIME: 07/17/2017 20:28 EST FREE TEXT SOURCE: FINAL REPORTS Final Report [] Verified Date/Time/Personnel: 07/18/2017 13:51 EST MRSA NEGATIVE. MRSA DNA not detected by Real-Time Polymerase Chain Reaction (PCR). A negative result may be due to intermittent colonization. Colonization may vary depending on patient treatment, patient status or exposure to high risk environments. As with all PCR based in vitro tests, extremely low levels of target below the limit of detection of the assay may be detected, but results may not be reproducible. Performing Locations *1: This test was performed at: [facility], [address] [place] [address], [phone] , [facility] Performed By: #### MRPCR #### [place] [address] HH Collected: 07/17/2017 Status: F Source: [facility] 2:33 PM [facility] REPOSITORY TYPE CODE TESTS RESULT OUT OF RANGE REFERENCE UNITS LAB HGB(LOINC) 13.0-17.5 G/dL Low Hgb 7.2 LAB HCT(LOINC) 40.0-52.0 % Low Hct 21.3 Performed By: #### HH #### [place] [address] VANCR Collected: 07/17/2017 Status: F Source: [facility] 2:33 PM [facility] REPOSITORY TYPE CODE TESTS RESULT OUT OF REFERENCE UNITS RANGE LAB LD021(LOIN C) LDose Vancomycin: See eMAR (random) LAB 4091-5 mcg/mL VANCOMYCIN 11.4 Result Comment: No normal reference range reported for random vancomycin testing. Performed By: #### VANCR #### [place] [address] CMP Collected: 07/17/2017 Status: F Source: [facility] 9:57 AM [facility] REPOSITORY Order Comment: qns redraw TYPE CODE TESTS RESULT OUT OF REFERENCE UNITS RANGE LAB GLU(LOINC) 70-110 mg/dL Glucose High Level 321 LAB NA(LOINC) 136-145 mEq/L Sodium Level 138 LAB K(LOINC) 3.5-5.0 mEq/L Potassium Level 4.5 LAB CL(LOINC) 98-110 mEq/L Chloride 105 LAB CO2(LOINC) 22-32 mEq/L CO2 23 LAB EBAL(LOINC 4.0-15.0 mEq/L ) Electrolyte Balance 10.0 LAB BUN(LOINC) 8.0-22.0 mg/dL BUN High 42.0 LAB CRE(LOINC) 0.60-1.40 mg/dL Creatinine High Lvl (s) 2.81 LAB BC(LOINC) 10.0-22.0 ratio BUN/Creatinine 14.9 Ratio LAB CA(LOINC) 8.4-10.1 mg/dL Low Calcium Lvl 7.8 LAB PROT(LOINC 6.0-8.5 G/dL ) Low Total Protein 5.5 LAB ALB(LOINC) 3.2-4.8 G/dL Low Albumin Level 2.5 LAB GLB(LOINC) 1.5-3.8 G/dL Globulin 3.0 LAB AG(LOINC) 0.9-1.6 ratio Low A/G Ratio 0.8 LAB BILT(LOINC 0.2-1.2 mg/dL ) Bili Total 0.3 LAB AP(LOINC) 38-126 U/L Alk Phos 101 LAB AST(LOINC) 8-34 U/L AST/SGOT 24 LAB ALT(LOINC) 12-55 U/L ALT/SGPT 23 Performed By: #### GFR, CBC, MORPH, CMP, ANEU, ADIFF #### [place] [address] .GFR Collected: 07/17/2017 Status: F Source: [facility] 9:57 AM [facility] TYPE CODE TESTS RESULT OUT OF REFERENCE UNITS RANGE LAB GFRAA(LOINC ml/min/1.73 ) sqm GFR 31 [place] Result Comment: GFR Population mean for , Non- Americans Ages 20-29 = 116 mL/min/1.73 sq.m. Ages 30-39 = 107 mL/min/1.73 sq.m. Ages 40-49 = 99 mL/min/1.73 sq.m. Ages 50-59 = 93 mL/min/1.73 sq.m. Ages 60-69 = 85 mL/min/1.73 sq.m. Ages 70+ = 75 mL/min/1.73 sq.m. Chronic Kidney Disease: Less than 60 mL/min/1.73 square meters End Stage Renal Disease: Less than 15 mL/min/1.73 square meters LAB GFRNO(LOINC) ml/min/1.73sqm GFR Non- 26 Result Comment: GFR Population mean for , Non- Americans Ages 20-29 = 116 mL/min/1.73 sq.m. Ages 30-39 = 107 mL/min/1.73 sq.m. Ages 40-49 = 99 mL/min/1.73 sq.m. Ages 50-59 = 93 mL/min/1.73 sq.m. Ages 60-69 = 85 mL/min/1.73 sq.m. Ages 70+ = 75 mL/min/1.73 sq.m. Chronic Kidney Disease: Less than 60 mL/min/1.73 square meters End Stage Renal Disease: Less than 15 mL/min/1.73 square meters Performed By: #### GFR, CBC, MORPH, CMP, ANEU, ADIFF #### [address] [address] .MORPH Collected: 07/17/2017 Status: F Source: [facility] 9:57 AM [facility] REPOSITORY TYPE CODE TESTS RESULT OUT OF REFERENCE UNITS RANGE LAB PLTE(LOINC ) Slt Platelet Decreased Estimate LAB POLC(LOINC ) Polychrom Slight Performed By: #### GFR, CBC, MORPH, CMP, ANEU, ADIFF #### [address] [address] CBC Collected: 07/17/2017 Status: F Source: [facility] 9:57 AM [facility] REPOSITORY Order Comment: cbc clotted TYPE CODE TESTS RESULT OUT OF RANGE REFERENCE UNITS LAB WBC(LOINC) 4.50-10.80 10 3/mcL High WBC 16.40 Result Comment: Capillary or microtainer specimen received. LAB RBCCT(LOINC) 4.50-6.00 10 6/mcL Low RBC 2.33 LAB HGB(LOINC) 13.0-17.5 G/dL Low Hgb 7.4 LAB HCT(LOINC) 40.0-52.0 % Low Hct 22.1 LAB MCV(LOINC) 81.0-100.0 fL MCV 94.7 LAB MCH(LOINC) 27.0-33.0 pg MCH 31.8 LAB MCHC(LOINC) 32.0-36.0 G/dL MCHC 33.6 LAB RDW(LOINC) 11.5-15.5 % RDW 14.0 LAB PLT(LOINC) 150-450 10 3/mcL Low Platelet 111 LAB MPV(LOINC) 6.4-10.5 fL High MPV 11.1 Performed By: #### GFR, CBC, MORPH, CMP, ANEU, ADIFF #### [place] [address] .AUTO DIFF Collected: 07/17/2017 Status: F Source: [facility] 9:57 AM [facility] REPOSITORY TYPE CODE TESTS RESULT OUT OF REFERENCE UNITS RANGE LAB JUAN A(LOINC) 50.0-75.0 % High Neutrophil % 78.3 LAB LYM(LOINC) 20.0-40.0 % Low Lymphocyte % 9.2 LAB MON(LOINC) 2.0-13.0 % Monocyte % 11.6 LAB EO(LOINC) 0.0-6.0 % Eosinophil % 0.6 LAB BAS(LOINC) 0.0-2.5 % Basophil % 0.3 LAB ABLYM(LOIN 0.90-4.32 10 3/mcL C) Lymphocyte, 1.50 Absolute LAB ALESSANDRA(LOINC 0.09-1.40 10 3/mcL ) High Monocyte, 1.90 Absolute LAB AEOS(LOINC 0.00-0.65 10 3/mcL ) Eosinophil, 0.10 Absolute LAB ABAS(LOINC 0.00-0.27 10 3/mcL ) Basophil, 0.00 Absolute Performed By: #### GFR, CBC, MORPH, CMP, ANEU, ADIFF #### [place] [address] .NEUABS Collected: 07/17/2017 Status: F Source: [facility] 9:57 AM [facility] REPOSITORY TYPE CODE TESTS RESULT OUT OF REFERENCE UNITS RANGE LAB ANEU(LOINC) 2.25-8.10 10 3/mcL High Neutrophil, 12.90 Absolute Performed By: #### GFR, CBC, MORPH, CMP, ANEU, ADIFF #### [place] [address] GLU Collected: 07/16/2017 Status: F Source: [facility] 11:56 PM [facility] REPOSITORY TYPE CODE TESTS RESULT OUT OF REFERENCE UNITS RANGE LAB GLU(LOINC) 70-110 mg/dL High Glucose Level 383 Performed By: #### GLU #### [place] [address] BMP Collected: 07/16/2017 Status: F Source: [facility] 6:06 [facility] REPOSITORY TYPE CODE TESTS RESULT OUT OF REFERENCE UNITS RANGE LAB GLU(LOINC) 70-110 mg/dL Glucose High Level 309 LAB NA(LOINC) 136-145 mEq/L Sodium Level 137 LAB K(LOINC) 3.5-5.0 mEq/L Potassium Level 5.0 LAB CL(LOINC) 98-110 mEq/L Chloride 105 LAB CO2(LOINC) 22-32 mEq/L CO2 23 LAB EBAL(LOINC 4.0-15.0 mEq/L ) Electrolyte Balance 9.0 LAB BUN(LOINC) 8.0-22.0 mg/dL BUN High 49.0 LAB CRE(LOINC) 0.60-1.40 mg/dL Creatinine High Lvl (s) 3.10 LAB BC(LOINC) 10.0-22.0 ratio BUN/Creatinine 15.8 Ratio LAB CA(LOINC) 8.4-10.1 mg/dL Low Calcium Lvl 7.6 Performed By: #### BMP, GFR #### [place] [address] .GFR Collected: 07/16/2017 Status: F Source: [facility] 6:06 [facility] REPOSITORY TYPE CODE TESTS RESULT OUT OF REFERENCE UNITS RANGE LAB GFRAA(LOINC ml/min/1.73 ) sqm GFR 28 [place] Result Comment: GFR Population mean for , Non- Americans Ages 20-29 = 116 mL/min/1.73 sq.m. Ages 30-39 = 107 mL/min/1.73 sq.m. Ages 40-49 = 99 mL/min/1.73 sq.m. Ages 50-59 = 93 mL/min/1.73 sq.m. Ages 60-69 = 85 mL/min/1.73 sq.m. Ages 70+ = 75 mL/min/1.73 sq.m. Chronic Kidney Disease: Less than 60 mL/min/1.73 square meters End Stage Renal Disease: Less than 15 mL/min/1.73 square meters LAB GFRNO(LOINC) ml/min/1.73sqm GFR Non- 23 Result Comment: GFR Population mean for , Non- Americans Ages 20-29 = 116 mL/min/1.73 sq.m. Ages 30-39 = 107 mL/min/1.73 sq.m. Ages 40-49 = 99 mL/min/1.73 sq.m. Ages 50-59 = 93 mL/min/1.73 sq.m. Ages 60-69 = 85 mL/min/1.73 sq.m. Ages 70+ = 75 mL/min/1.73 sq.m. Chronic Kidney Disease: Less than 60 mL/min/1.73 square meters End Stage Renal Disease: Less than 15 mL/min/1.73 square meters Performed By: #### BMP, GFR #### [facility] [address] [place] [address] US RENAL Observed: 07/16/2017 Status: F Source: [facility] 3:30 PM [facility] REPOSITORY ORIGINAL US RENAL (US RETROPERITONEUM COMPLETE) CLINICAL STATEMENT: FEVER RECENT UROLOGIC SURGERY. COMPARISON: Abdominal ultrasound dated 10/01/2013. CT abdomen pelvis dated 05/15/2015. Findings: The right kidney measures 9.6 x 4.1 x 4.3 cm. Left kidney measures 5.8 x 4.8 x 4.7 cm, with significant atrophy. No hydronephrosis. No renal mass or calculus. Bladder is decompressed by Franco catheter. No ascites. 1.5 cm left renal cyst IMPRESSION: Moderate left renal atrophy. No evidence for acute urinary obstruction. Interpreted By: Sal Holbrook MD Preliminary Report By: Sal Holbrook MD Electronically Signed By: Sal Holbrook MD Dictated Date: 07/16/2017 5:04:23 PM Prelim Date: 07/16/2017 5:04:23 PM Sign Date: 07/16/2017 5:06:39 PM CBC Collected: 07/16/2017 Status: F Source: [facility] 3:45 AM [facility] REPOSITORY TYPE CODE TESTS RESULT OUT OF REFERENCE UNITS RANGE LAB WBC(LOINC) 4.50-10.80 10 3/mcL High WBC 24.60 LAB RBCCT(LOINC 4.50-6.00 10 6/mcL ) Low RBC 2.52 LAB HGB(LOINC) 13.0-17.5 G/dL Low Hgb 8.1 LAB HCT(LOINC) 40.0-52.0 % Low Hct 23.8 LAB MCV(LOINC) 81.0-100.0 fL MCV 94.3 LAB MCH(LOINC) 27.0-33.0 pg MCH 32.1 LAB MCHC(LOINC) 32.0-36.0 G/dL MCHC 34.1 LAB RDW(LOINC) 11.5-15.5 % RDW 13.8 LAB PLT(LOINC) 150-450 10 3/mcL Low Platelet 113 LAB MPV(LOINC) 6.4-10.5 fL MPV 10.0 Performed By: #### MORPH, DIFF, CBC, BMP, GFR #### [address] [address] BMP Collected: 07/16/2017 Status: F Source: [facility] 3:45 AM [facility] REPOSITORY TYPE CODE TESTS RESULT OUT OF REFERENCE UNITS RANGE LAB GLU(LOINC) 70-110 mg/dL Glucose High Level 178 LAB NA(LOINC) 136-145 mEq/L Sodium Level 139 LAB K(LOINC) 3.5-5.0 mEq/L Potassium High Level 5.2 LAB CL(LOINC) 98-110 mEq/L Chloride 103 LAB CO2(LOINC) 22-32 mEq/L CO2 22 LAB EBAL(LOINC 4.0-15.0 mEq/L ) Electrolyte Balance 14.0 LAB BUN(LOINC) 8.0-22.0 mg/dL BUN High 46.0 LAB CRE(LOINC) 0.60-1.40 mg/dL Creatinine High Lvl (s) 3.45 LAB BC(LOINC) 10.0-22.0 ratio BUN/Creatinine 13.3 Ratio LAB CA(LOINC) 8.4-10.1 mg/dL Low Calcium Lvl 7.8 Performed By: #### MORPH, DIFF, CBC, BMP, GFR #### [address] [address] .GFR Collected: 07/16/2017 Status: F Source: [facility] 3:45 AM [facility] REPOSITORY TYPE CODE TESTS RESULT OUT OF REFERENCE UNITS RANGE LAB GFRAA(LOINC ml/min/1.73 ) sqm GFR 25 [place] Result Comment: GFR Population mean for , Non- Americans Ages 20-29 = 116 mL/min/1.73 sq.m. Ages 30-39 = 107 mL/min/1.73 sq.m. Ages 40-49 = 99 mL/min/1.73 sq.m. Ages 50-59 = 93 mL/min/1.73 sq.m. Ages 60-69 = 85 mL/min/1.73 sq.m. Ages 70+ = 75 mL/min/1.73 sq.m. Chronic Kidney Disease: Less than 60 mL/min/1.73 square meters End Stage Renal Disease: Less than 15 mL/min/1.73 square meters LAB GFRNO(LOINC) ml/min/1.73sqm GFR Non- 20 Result Comment: GFR Population mean for , Non- Americans Ages 20-29 = 116 mL/min/1.73 sq.m. Ages 30-39 = 107 mL/min/1.73 sq.m. Ages 40-49 = 99 mL/min/1.73 sq.m. Ages 50-59 = 93 mL/min/1.73 sq.m. Ages 60-69 = 85 mL/min/1.73 sq.m. Ages 70+ = 75 mL/min/1.73 sq.m. Chronic Kidney Disease: Less than 60 mL/min/1.73 square meters End Stage Renal Disease: Less than 15 mL/min/1.73 square meters Performed By: #### MORPH, DIFF, CBC, BMP, GFR #### [place] [address] .MANUAL DIFF Collected: 07/16/2017 Status: F Source: [facility] 3:45 AM [facility] REPOSITORY TYPE CODE TESTS RESULT OUT OF REFERENCE UNITS RANGE LAB LIMIT(LOIN C) Cells Counted 100 LAB NEUM(LOINC 50.0-75.0 % ) High Neutrophil %, 82.0 Manual LAB LYMM(LOINC 20.0-40.0 % ) Low Lymphocyte %, 9.0 Manual LAB EOM(LOINC) 2.0-13.0 % Monocyte %, Manual 7.0 Result Comment: 0.0 LAB BASM(LOINC) 0.0-2.5 % Basophil %, Manual 0.0 LAB BAND(LOINC) 0.0-5.0 % Bands 2.0 LAB ANEUM(LOINC) 2.25-8.10 10 3/mcL High Neutrophil, Abs Manual 20.66 LAB ABLYMM(LOINC) 0.90-4.32 10 3/mcL Lymphocyte, Abs Manual 2.21 LAB AMONM(LOINC) 0.09-1.40 10 3/mcL High Monocyte, Abs Manual 1.72 LAB AEOSM(LOINC) 0.00-0.65 10 3/mcL Eosinophil, Abs Manual 0.00 LAB ABASM(LOINC) 0.00-0.27 10 3/mcL Basophil, Abs Manual 0.00 Performed By: #### MORPH, DIFF, CBC, BMP, GFR #### [address] [address] .MORPH Collected: 07/16/2017 Status: F Source: [facility] 3:45 AM [facility] REPOSITORY TYPE CODE TESTS RESULT OUT OF REFERENCE UNITS RANGE LAB PLTE(LOINC ) Slt Platelet Decreased Estimate Result Comment: Few platelet clumps seen. LAB DCOMM(LOINC) Differential Comment See Below Result Comment: Capillary or microtainer specimen received. LAB RBCM(LOINC) RBC Morph Normal Performed By: #### MORPH, DIFF, CBC, BMP, GFR #### [place] [id number] RESPID Collected: 07/15/2017 Status: F Source: [facility] 1:41 PM [facility] REPOSITORY TYPE CODE TESTS RESULT OUT OF REFERENCE UNITS RANGE LAB RESADENO( Not Detected LOINC) Adenovirus Not Detected LAB COVHKU1(L Not Detected OINC) Coronavirus HKU1 Not Detected LAB COVNL63(L Not Detected OINC) Coronavirus NL63 Not Detected LAB [id number](L Not Detected OINC) Coronavirus 229E Not Detected LAB COVOC43(L Not Detected OINC) Coronavirus OC43 Not Detected LAB HMV(LOINC Not Detected ) Human Metapneumovirus Not Detected LAB INFA(LOIN Not Detected C) Influenza A Not Detected LAB INFAB(PARVEZ Not Detected NC) Influenza B Not Detected LAB PARAFLU1( Not Detected LOINC) Parainfluenza 1 Not Detected LAB PARAFLU2( Not Detected LOINC) Parainfluenza 2 Not Detected LAB PARAFLU3( Not Detected LOINC) Parainfluenza 3 Not Detected LAB PARAFLU4( Not Detected LOINC) Parainfluenza 4 Not Detected LAB RHINO(PRAVEZ Not Detected NC) Rhinovirus/Enterovir us Not Detected LAB RESRSV(LO Not Detected INC) Respiratory Syncytial Virus Not Detected LAB RESMYCO(L Not Detected OINC) Mycoplasma pneumoniae Not Detected LAB RESCHLAM( Not Detected LOINC) Chlamydophila pneumoniae Not Detected LAB RESBORD(L Not Detected OINC) Bordetella Pertussis Not Detected LAB RESBPAR(L Not Detected OINC) Bordetella Parapertussis Not Detected Performed By: #### RESPID #### [place] [address] Observed: 07/15/2017 Status: F Source: [facility] 10:52 AM [facility] REPOSITORY . MICRO - Microbiology PROCEDURE: Blood Culture (bacterial) [*1] SOURCE: Blood BODY SITE: COLLECTED DATE/TIME: 07/15/2017 10:52 EST RECEIVED DATE/TIME: 07/15/2017 14:32 EST START DATE/TIME: 07/15/2017 14:32 EST FREE TEXT SOURCE: FINAL REPORTS Final Report [] Verified Date/Time/Personnel: 07/20/2017 14:59 EST Blood Culture: No Growth at 5 days. PRELIMINARY REPORTS Preliminary Report [] Verified Date/Time/Personnel: 07/15/2017 15:59 EST Culture has been received in lab and is no growth to date. Routine cultures are held for 5 days. Performing Locations *1: This test was performed at: [facility], [address] [place] [address], [address] [place] [address] Performed By: #### CBL #### [place] [address] Observed: 07/15/2017 Status: F Source: [facility] 10:52 [facility] REPOSITORY . MICRO - Microbiology PROCEDURE: Blood Culture (bacterial) [*1] SOURCE: Blood BODY SITE: COLLECTED DATE/TIME: 07/15/2017 10:52 EST RECEIVED DATE/TIME: 07/15/2017 14:32 EST START DATE/TIME: 07/15/2017 14:32 EST FREE TEXT SOURCE: FINAL REPORTS Final Report [] Verified Date/Time/Personnel: 07/20/2017 14:59 EST Blood Culture: No Growth at 5 days. PRELIMINARY REPORTS Preliminary Report [] Verified Date/Time/Personnel: 07/15/2017 15:59 EST Culture has been received in lab and is no growth to date. Routine cultures are held for 5 days. Performing Locations *1: This test was performed at: [address] Performed By: #### CBL #### [place] [address] Observed: 07/15/2017 Status: F Source: [facility] 10:36 AM [facility] REPOSITORY . MICRO - Microbiology PROCEDURE: Urine Culture [*1] SOURCE: Urine, Franco Catheter BODY SITE: COLLECTED DATE/TIME: 07/15/2017 10:36 EST RECEIVED DATE/TIME: 07/15/2017 14:50 EST START DATE/TIME: 07/15/2017 14:50 EST FREE TEXT SOURCE: FINAL REPORTS Final Report [] Verified Date/Time/Personnel: 07/17/2017 07:25 EST >100,000 organisms per mL Mixed without predominant isolate(s). Sensitivity Testing not indicated. Probably contamination. Repeat culture suggested. PRELIMINARY REPORTS Preliminary Report [] Verified Date/Time/Personnel: 07/16/2017 14:14 EST Culture results pending. Performing Locations *1: This test was performed at: [address], [address] [place] [address] Performed By: #### CUR #### [place] [address] BMP Collected: 07/15/2017 Status: F Source: [facility] 6:22 AM [facility] REPOSITORY TYPE CODE TESTS RESULT OUT OF REFERENCE UNITS RANGE LAB GLU(LOINC) 70-110 mg/dL Glucose High Level 193 LAB NA(LOINC) 136-145 mEq/L Sodium Level 140 LAB K(LOINC) 3.5-5.0 mEq/L Potassium Level 4.9 LAB CL(LOINC) 98-110 mEq/L Chloride 105 LAB CO2(LOINC) 22-32 mEq/L CO2 24 LAB EBAL(LOINC 4.0-15.0 mEq/L ) Electrolyte Balance 11.0 LAB BUN(LOINC) 8.0-22.0 mg/dL BUN High 33.0 LAB CRE(LOINC) 0.60-1.40 mg/dL Creatinine High Lvl (s) 2.27 LAB BC(LOINC) 10.0-22.0 ratio BUN/Creatinine 14.5 Ratio LAB CA(LOINC) 8.4-10.1 mg/dL Calcium Lvl 8.4 Performed By: #### BMP, GFR #### [address] [id number] .GFR Collected: 07/15/2017 Status: F Source: [facility] 6:22 AM [facility] REPOSITORY TYPE CODE TESTS RESULT OUT OF REFERENCE UNITS RANGE LAB GFRAA(LOINC ml/min/1.73 ) sqm GFR 40 [place] Result Comment: GFR Population mean for , Non- Americans Ages 20-29 = 116 mL/min/1.73 sq.m. Ages 30-39 = 107 mL/min/1.73 sq.m. Ages 40-49 = 99 mL/min/1.73 sq.m. Ages 50-59 = 93 mL/min/1.73 sq.m. Ages 60-69 = 85 mL/min/1.73 sq.m. Ages 70+ = 75 mL/min/1.73 sq.m. Chronic Kidney Disease: Less than 60 mL/min/1.73 square meters End Stage Renal Disease: Less than 15 mL/min/1.73 square meters LAB GFRNO(LOINC) ml/min/1.73sqm GFR Non- 33 Result Comment: GFR Population mean for , Non- Americans Ages 20-29 = 116 mL/min/1.73 sq.m. Ages 30-39 = 107 mL/min/1.73 sq.m. Ages 40-49 = 99 mL/min/1.73 sq.m. Ages 50-59 = 93 mL/min/1.73 sq.m. Ages 60-69 = 85 mL/min/1.73 sq.m. Ages 70+ = 75 mL/min/1.73 sq.m. Chronic Kidney Disease: Less than 60 mL/min/1.73 square meters End Stage Renal Disease: Less than 15 mL/min/1.73 square meters Performed By: #### BMP, GFR #### [address] [id number] CBC Collected: 07/14/2017 Status: F Source: [facility] 6:25 AM [facility] REPOSITORY TYPE CODE TESTS RESULT OUT OF REFERENCE UNITS RANGE LAB WBC(LOINC) 4.50-10.80 10 3/mcL WBC 7.80 LAB RBCCT(LOINC 4.50-6.00 10 6/mcL ) Low RBC 2.70 LAB HGB(LOINC) 13.0-17.5 G/dL Low Hgb 8.7 LAB HCT(LOINC) 40.0-52.0 % Low Hct 25.9 LAB MCV(LOINC) 81.0-100.0 fL MCV 95.9 LAB MCH(LOINC) 27.0-33.0 pg MCH 32.1 LAB MCHC(LOINC) 32.0-36.0 G/dL MCHC 33.5 LAB RDW(LOINC) 11.5-15.5 % RDW 14.2 LAB PLT(LOINC) 150-450 10 3/mcL Platelet 154 LAB MPV(LOINC) 6.4-10.5 fL MPV 9.6 Performed By: #### CBC, ADIFF, BMP, ANEU, GFR #### [place] [address] .AUTO DIFF Collected: 07/14/2017 Status: F Source: [facility] 6:25 AM [facility] REPOSITORY TYPE CODE TESTS RESULT OUT OF REFERENCE UNITS RANGE LAB JUAN A(LOINC) 50.0-75.0 % Neutrophil % 73.6 LAB LYM(LOINC) 20.0-40.0 % Low Lymphocyte % 15.7 LAB MON(LOINC) 2.0-13.0 % Monocyte % 9.1 LAB EO(LOINC) 0.0-6.0 % Eosinophil % 1.3 LAB BAS(LOINC) 0.0-2.5 % Basophil % 0.3 LAB ABLYM(LOIN 0.90-4.32 10 3/mcL C) Lymphocyte, 1.20 Absolute LAB ALESSANDRA(LOINC 0.09-1.40 10 3/mcL ) Monocyte, 0.70 Absolute LAB AEOS(LOINC 0.00-0.65 10 3/mcL ) Eosinophil, 0.10 Absolute LAB ABAS(LOINC 0.00-0.27 10 3/mcL ) Basophil, 0.00 Absolute Performed By: #### CBC, ADIFF, BMP, ANEU, GFR #### [address] [address] .NEUABS Collected: 07/14/2017 Status: F Source: [facility] 6:25 AM [facility] REPOSITORY TYPE CODE TESTS RESULT OUT OF REFERENCE UNITS RANGE LAB ANEU(LOINC) 2.25-8.10 10 3/mcL Neutrophil, 5.70 Absolute Performed By: #### CBC, ADIFF, BMP, ANEU, GFR #### [place] [address] BMP Collected: 07/14/2017 Status: F Source: [facility] 6:25 AM [facility] REPOSITORY TYPE CODE TESTS RESULT OUT OF REFERENCE UNITS RANGE LAB GLU(LOINC) 70-110 mg/dL Glucose High Level 250 LAB NA(LOINC) 136-145 mEq/L Sodium Level 142 LAB K(LOINC) 3.5-5.0 mEq/L Potassium High Level 5.2 LAB CL(LOINC) 98-110 mEq/L Chloride 109 LAB CO2(LOINC) 22-32 mEq/L CO2 25 LAB EBAL(LOINC 4.0-15.0 mEq/L ) Electrolyte Balance 8.0 LAB BUN(LOINC) 8.0-22.0 mg/dL BUN High 42.0 LAB CRE(LOINC) 0.60-1.40 mg/dL Creatinine High Lvl (s) 2.36 LAB BC(LOINC) 10.0-22.0 ratio BUN/Creatinine 17.8 Ratio LAB CA(LOINC) 8.4-10.1 mg/dL Calcium Lvl 8.5 Performed By: #### CBC, ADIFF, BMP, ANEU, GFR #### [address] [address] .GFR Collected: 07/14/2017 Status: F Source: [facility] 6:25 AM [facility] REPOSITORY TYPE CODE TESTS RESULT OUT OF REFERENCE UNITS RANGE LAB GFRAA(LOINC ml/min/1.73 ) sqm GFR 38 [place] Result Comment: GFR Population mean for , Non- Americans Ages 20-29 = 116 mL/min/1.73 sq.m. Ages 30-39 = 107 mL/min/1.73 sq.m. Ages 40-49 = 99 mL/min/1.73 sq.m. Ages 50-59 = 93 mL/min/1.73 sq.m. Ages 60-69 = 85 mL/min/1.73 sq.m. Ages 70+ = 75 mL/min/1.73 sq.m. Chronic Kidney Disease: Less than 60 mL/min/1.73 square meters End Stage Renal Disease: Less than 15 mL/min/1.73 square meters LAB GFRNO(LOINC) ml/min/1.73sqm GFR Non- 32 Result Comment: GFR Population mean for , Non- Americans Ages 20-29 = 116 mL/min/1.73 sq.m. Ages 30-39 = 107 mL/min/1.73 sq.m. Ages 40-49 = 99 mL/min/1.73 sq.m. Ages 50-59 = 93 mL/min/1.73 sq.m. Ages 60-69 = 85 mL/min/1.73 sq.m. Ages 70+ = 75 mL/min/1.73 sq.m. Chronic Kidney Disease: Less than 60 mL/min/1.73 square meters End Stage Renal Disease: Less than 15 mL/min/1.73 square meters Performed By: #### CBC, ADIFF, BMP, ANEU, GFR #### [address] [address] HH Collected: 07/14/2017 Status: F Source: [facility] 12:39 AM [facility] REPOSITORY TYPE CODE TESTS RESULT OUT OF RANGE REFERENCE UNITS LAB HGB(LOINC) 13.0-17.5 G/dL Low Hgb 9.4 LAB HCT(LOINC) 40.0-52.0 % Low Hct 27.7 Performed By: #### HH #### [address] [address] UA Collected: 07/13/2017 Status: F Source: [facility] 8:03 PM [facility] REPOSITORY TYPE CODE TESTS RESULT OUT OF RANGE REFERENCE UNITS LAB SPCUA(LOIN C) UA Specimen Type Catheter LAB CLRUA(LOIN C) UA Abnormal Color Red LAB APPUA(LOIN C) UA Abnormal Appear Turbid Result Comment: changes in urine color may cause chemical analysis to demonstrate false positives. LAB SGUA(LOINC) UA Spec Abnormal Grav <=1.005 LAB GLUA(LOINC) Negative mg/dL UA Glucose Abnormal 250 LAB BILUA(LOINC) Neg-Trace UA Bili Negative LAB KETUA(LOINC) Negative mg/dL UA Ketones Abnormal 80 LAB BLDUA(LOINC) Neg-Trace UA Blood Abnormal Large LAB PHUA(LOINC) 5.0 - 8.0 UA pH Abnormal >=8.5 LAB PROUA(LOINC) Negative mg/dL UA Protein Abnormal >=300 LAB UROUA(LOINC) E.U./ dL UA Abnormal Urobilinogen >=8.0 LAB NITUA(LOINC) Negative UA Nitrite Negative LAB LEUUA(LOINC) Negative UA Leuk Est Abnormal Large Performed By: #### UA, UAMIC #### [place] [address] UAMIC Collected: 07/13/2017 Status: F Source: [facility] 8:03 PM [facility] REPOSITORY TYPE CODE TESTS RESULT OUT OF RANGE REFERENCE UNITS LAB RBCUA(LOIN 0-2 /hpf C) UA Abnormal RBC LOADED LAB WBCUA(LOIN 0-5 /hpf C) UA Abnormal WBC 10-20 LAB EPIUA(LOIN 0-20 /hpf C) UA Squam Negative Epithelial LAB BACUA(LOIN Negative /hpf C) UA Abnormal Bacteria Trace LAB GLTUA(LOIN /hpf C) UA Abnormal Glitter cells 10-20 LAB CRBCU(LOIN /hpf C) UA Abnormal Crenated RBCs 10-20 Performed By: #### UA, UAMIC #### [place] [address] CBC Collected: 07/13/2017 Status: F Source: [facility] 7:43 PM [facility] REPOSITORY TYPE CODE TESTS RESULT OUT OF REFERENCE UNITS RANGE LAB WBC(LOINC) 4.50-10.80 10 3/mcL WBC 9.70 LAB RBCCT(LOINC 4.50-6.00 10 6/mcL ) Low RBC 2.99 LAB HGB(LOINC) 13.0-17.5 G/dL Low Hgb 9.6 LAB HCT(LOINC) 40.0-52.0 % Low Hct 28.3 LAB MCV(LOINC) 81.0-100.0 fL MCV 94.7 LAB MCH(LOINC) 27.0-33.0 pg MCH 32.1 LAB MCHC(LOINC) 32.0-36.0 G/dL MCHC 33.9 LAB RDW(LOINC) 11.5-15.5 % RDW 14.2 LAB PLT(LOINC) 150-450 10 3/mcL Platelet 155 LAB MPV(LOINC) 6.4-10.5 fL MPV 9.2 Performed By: #### CBC, ADIFF, GFR, ANEU, BMP #### [address] [address] .AUTO DIFF Collected: 07/13/2017 Status: F Source: [facility] 7:43 PM [facility] REPOSITORY TYPE CODE TESTS RESULT OUT OF REFERENCE UNITS RANGE LAB JUAN A(LOINC) 50.0-75.0 % High Neutrophil % 78.8 LAB LYM(LOINC) 20.0-40.0 % Low Lymphocyte % 12.4 LAB MON(LOINC) 2.0-13.0 % Monocyte % 7.2 LAB EO(LOINC) 0.0-6.0 % Eosinophil % 1.4 LAB BAS(LOINC) 0.0-2.5 % Basophil % 0.2 LAB ABLYM(LOIN 0.90-4.32 10 3/mcL C) Lymphocyte, 1.20 Absolute LAB ALESSANDRA(LOINC 0.09-1.40 10 3/mcL ) Monocyte, 0.70 Absolute LAB AEOS(LOINC 0.00-0.65 10 3/mcL ) Eosinophil, 0.10 Absolute LAB ABAS(LOINC 0.00-0.27 10 3/mcL ) Basophil, 0.00 Absolute Performed By: #### CBC, ADIFF, GFR, ANEU, BMP #### [place] [address] .NEUABS Collected: 07/13/2017 Status: F Source: [facility] 7:43 PM [facility] REPOSITORY TYPE CODE TESTS RESULT OUT OF REFERENCE UNITS RANGE LAB ANEU(LOINC) 2.25-8.10 10 3/mcL Neutrophil, 7.60 Absolute Performed By: #### CBC, ADIFF, GFR, ANEU, BMP #### [place] [address] BMP Collected: 07/13/2017 Status: F Source: [facility] 7:43 PM [facility] REPOSITORY TYPE CODE TESTS RESULT OUT OF REFERENCE UNITS RANGE LAB GLU(LOINC) 70-110 mg/dL Glucose High Level 139 LAB NA(LOINC) 136-145 mEq/L Sodium Level 138 LAB K(LOINC) 3.5-5.0 mEq/L Potassium High Level 5.3 LAB CL(LOINC) 98-110 mEq/L Chloride 105 LAB CO2(LOINC) 22-32 mEq/L CO2 28 LAB EBAL(LOINC 4.0-15.0 mEq/L ) Electrolyte Balance 5.0 LAB BUN(LOINC) 8.0-22.0 mg/dL BUN High 42.0 LAB CRE(LOINC) 0.60-1.40 mg/dL Creatinine High Lvl (s) 2.28 LAB BC(LOINC) 10.0-22.0 ratio BUN/Creatinine 18.4 Ratio LAB CA(LOINC) 8.4-10.1 mg/dL Low Calcium Lvl 8.1 Performed By: #### CBC, ADIFF, GFR, ANEU, BMP #### [place] [address] .GFR Collected: 07/13/2017 Status: F Source: [facility] 7:43 PM [facility]POS[facility] TYPE CODE TESTS RESULT OUT OF REFERENCE UNITS RANGE LAB GFRAA(LOINC ml/min/1.73 ) sqm GFR 40 [place] Result Comment: GFR Population mean for , Non- Americans Ages 20-29 = 116 mL/min/1.73 sq.m. Ages 30-39 = 107 mL/min/1.73 sq.m. Ages 40-49 = 99 mL/min/1.73 sq.m. Ages 50-59 = 93 mL/min/1.73 sq.m. Ages 60-69 = 85 mL/min/1.73 sq.m. Ages 70+ = 75 mL/min/1.73 sq.m. Chronic Kidney Disease: Less than 60 mL/min/1.73 square meters End Stage Renal Disease: Less than 15 mL/min/1.73 square meters LAB GFRNO(LOINC) ml/min/1.73sqm GFR Non- 33 Result Comment: GFR Population mean for , Non- Americans Ages 20-29 = 116 mL/min/1.73 sq.m. Ages 30-39 = 107 mL/min/1.73 sq.m. Ages 40-49 = 99 mL/min/1.73 sq.m. Ages 50-59 = 93 mL/min/1.73 sq.m. Ages 60-69 = 85 mL/min/1.73 sq.m. Ages 70+ = 75 mL/min/1.73 sq.m. Chronic Kidney Disease: Less than 60 mL/min/1.73 square meters End Stage Renal Disease: Less than 15 mL/min/1.73 square meters Performed By: #### CBC, ADIFF, GFR, ANEU, BMP #### [address] [address] PRO Collected: 07/13/2017 Status: F Source: [facility] 6:57 PM [facility] REPOS[facility] TYPE CODE TESTS RESULT OUT OF REFERENCE UNITS RANGE LAB PT(LOINC) 9.0-14.5 seconds Protime 12.1 Result Comment: Effective 01/01/08, Protime results may be affected by some antibiotics (i.e. Ciprofloxacin, Azithromycin, Bactrim) which may potentiate the action of oral anticoagulants, with further increases in Protime/INR. LAB INR(LOINC) ratio PT International Ratio 1.0 Result Comment: The [place] [employer] (CHEST, 1992, 102:312S-25S) recommended therapeutic range for oral anticoagulant therapy is: LOW RISK: Prophylaxis of venous thrombosis INR: 2.0-3.0 Treatment of pulmonary embolism 2.0-3.0 Prevention of systemic embolism 2.0-3.0 HIGH RISK: Mechanical prosthetic valves 2.5-3.5 Performed By: #### PRO #### [address] [address] DISCHARGE INSTRUCTION Observed: 07/12/2017 Status: F Source: [place] 4:41 PM [facility] REPOSITORY [facility] Medical Records Department [address] [place] [address] Discharge Instruction 07/12/17 1640 MR#: [id number] Acct: [id number] Name: JARON MORSE Rep #: [id number] : 1980 37 From: Marlon Jarrett DO PCP: Francine Clark MD Status: REG ER ED Disposition - Plan for ED Patient: Chief Complaint: Franco C/O Instructions: ED Hematuria Referrals: Jose Juan Lopez MD [STAFF PHYSICIAN] - 3-5 Days What to do if you have Problems For any increased pain, shortness of breath, bleeding, nausea or vomiting, chest pain, or any unexpected problems, contact your Primary Care Provider. Call [facility] ([phone]) or report to the closest Emergency Room. Call 911 if necessary. 07/12/17 1641 <Electronically signed by Marlon Jarrett DO> Date Marlon Jarrett DO Cosigner Signature (If Indicated): Date CC: Francine Clark MD EMERGENCY DEPARTMENT Observed: 07/12/2017 Status: F Source: [place] SUMMARY 4:40 PM [facility] REPOSITORY [facility] Medical Records Department [address] [place] [address] Emergency Department Summary 07/12/17 1634 MR#: [id number] Acct: [id number] Name: JARON MORSE [place] Rep #: [id number] : 1980 37 From: Marlon Jarrett DO PCP: Francine Clark MD Status: REG ER - ER Visit Summary Date of Service: 07/12/17 Chief Complaint: [Hematuria] History of Present Illness: The patient is a 37 M presents the emergency department chief complaint of blood in his Franco bag. Patient has a suprapubic Franco catheter which was placed a due to the fact that patient would hold his urine for sexual gratification which caused stage III renal failure. Patient has the Franco catheter irrigated 3 times a day with Renacidan. Patient denies any fever. Patient describes some mild lower abdominal and back discomfort.] The hematuria started yesterday. Patient used to see Dr. Ellison of urology but the caregivers would like to establish with Dr.Proano renee . Physical Examination: [HEENT-PERRLA, EOMI. Cranial nerves II through XII grossly intact. TMs clear. Mucous membranes moist. No adenopathy. Cardiovascular-regular rate and rhythm without murmur or ectopy Lungs-clear to auscultation, chest wall stable without crepitus or subcu emphysema Abdomen-normoactive bowel sounds, soft, nontender, no rebound or rigidity, no peritoneal signs. exam-patient has a suprapubic catheter that is noted to have gross hematuria. No significant clots noted. Extremities-intact 4, normal range of motion, normal pulses, atraumatic] Test Results: [CBC with differential obtained showed white blood cell count of 7.3, hemoglobin 11.5, hematocrit 35, platelets 185. Chemistries unremarkable. BUN was 43 and creatinine was 2.47. Urinalysis was negative for leukocyte esterase, greater than 100 RBCs, 0-5 WBCs, no bacteria seen.] Emergency Department Course and Treatment: [Patient received IV fluids in the department.] Treatment Plan: [Patient case was discussed with Dr. Burt Lopez who did not feel any further treatment was indicated. Patient to continue with bladder irrigation at the [facility].] Patient to follow-up with Dr. Lopez in the office. Disposition: [Discharged to home in stable condition]. Patient to return if fever, worsening abdominal pain, vomiting, decreased urine output, or condition should worsen in any way. Impression: [Hematuria] This note was generated with righTune dictation software. It may contain incorrect words, spelling, and punctuation that were not noted in review of the chart prior to signing ED Disposition - Plan for ED Patient: Chief Complaint: Franco C/O Referrals: Francine Clark MD [Primary Care Provider] - What to do if you have Problems For any increased pain, shortness of breath, bleeding, nausea or vomiting, chest pain, or any unexpected problems, contact your Primary Care Provider. Call [facility] ([phone]) or report to the closest Emergency Room. Call 911 if necessary. 07/12/17 1640 <Electronically signed by Marlon Jarrett DO> Date Marlon Jarrett DO Cosigner Signature (If Indicated): Date CC: Francine Clark MD CBC W/DIFF, AUTOMATED Collected: 07/12/2017 Status: F Source: [place] 3:42 PM [facility] REPOSITORY Order Comment: REDRAW. PREVIOUS SPECIMEN REJECTED DUE TO SPECIMEN BEING CLOTTED. 07/12/17 1450 Carolann Rudolph. TYPE CODE TESTS RESULT OUT OF RANGE REFERENCE UNITS LAB L100.1000 4.4-11.0 K/mm3 Normal WBC 7.3 LAB L100.1200 4.6-6.2 M/mm3 Low RBC 3.67 LAB L100.1300 13.0-16.5 g/dl Low HGB 11.5 LAB L100.1400 40-54 % Low HCT 35.2 LAB L100.1500 80-94 fL High MCV 95.9 LAB L100.1600 27.0-32.0 pg Normal MCH 31.3 LAB L100.1700 32-36 g/gl Normal MCHC 32.7 LAB L100.1810 11.6-14.6 % Normal RDW CV 13.5 LAB L100.1820 35.1-43.9 fl High RDW SD 47.2 LAB L100.1900 150-450 K/mm3 Normal PLT 185 LAB L100.2000 6.2-12.0 fl Normal MPV 10.7 LAB L100.2100 47-70 % Normal NEUT% 59.7 LAB L100.2200 19-41 % Normal LY% 26.8 LAB L100.2300 0-10 % High MONO% 10.4 LAB L100.2400 0-5 % Normal EO% 2.9 LAB L100.2500 0-1 % Normal BASO% 0.1 LAB L100.2550 0.0-0.9 % Normal IM GRAN % 0.100 Result Comment: IG% - Immature Granulocytes (promyelocytes, myelocytes and metamyelocytes) > 1% indicates that a LEFT SHIFT is Present. LAB L100.2620 2.0-7.7 X10 3/uL Normal Absolute Neut 4.4 LAB L100.2720 0.83-4.51 X10 3/ul Normal Absolute Lymph 1.96 Performed By: #### L100.0100 #### [facility] [address] [place], [address] URINALYSIS, COMPLETE Collected: 07/12/2017 Status: F Source: GREG 2:21 PM [facility] REPOSITORY Order Comment: Microscopic field is filled. Other elements may be obscured. Order Date: 07/12/17 COLOR OF URINE MAY AFFECT DIPSTICK RESULTS. How was Urine Obtained? CLEAN CATCH TYPE CODE TESTS RESULT OUT OF RANGE REFERENCE UNITS LAB L400.3000 Yellow COLOR Normal Red LAB L400.3050 Clear Normal CLARITY Turbid LAB L400.3200 Normal mg/dl Normal GLUCOSE, UR Normal LAB L400.3300 Negative mg/dL Normal BILIRUBIN URINE Negative LAB L400.3400 Negative mg/dl High 15 KETONE UR LAB L400.3465 1.002-1.030 Normal SP.GR. DIPSTX 1.010 LAB L400.3550 5.0 - 8.0 pH UR Normal 8.0 LAB L400.3600 Negative mg/dl High PROT DIPSTX 500 LAB L400.3700 Normal mg/dl Normal UROBILI Normal LAB L400.3750 Negative Normal NITRITE UR Negative LAB L400.3780 Negative /ul High OCCULT BLOOD-UR 250 LAB L400.3800 Negative /ul LEUK Normal ESTERASE Negative LAB L400.4050 0-5 /hpf WBC Normal 0-5 SEEN LAB L400.4100 0-5 /hpf > Normal RBC-UA 100 SEEN Result Comment: Microscopic field is filled. Other elements may be obscured. LAB L400.4150 0-5 /hpf Normal SQUAM EPI 0 SEEN LAB L400.4300 None Seen /hpf Normal BACTERIA 1+ LAB L400.4350 <or=2+ /hpf Normal MUCUS, URINE 0 SEEN Performed By: #### L400.0001 #### [facility] [address] [place], [address] Observed: 07/12/2017 Status: F Source: GREG CULTURE, URINE 2:21 PM [facility] REPOSITORY Order Date: 07/12/17 Urine Culture #2 There are no CLSI standards for interpretation of this Drug/Organism combination. ORGANISM 1: Enterococcus faecalis [place] Count 80,000-100,000 ORGANISM 2: Actinomyces odontolyticus [place] Count 50,000-80,000 Enterococcus faecalis: REACTION Ampicillin $ <=2 S Benzylpenicillin NF 8 S Ciprofloxacin $ >=8 R Gentamicin SYN-R R Levofloxacin $ >=8 R Linezolid $$$$ 2 S Nitrofurantoin $ <=16 S Streptomycin $ SYN-R R Tetracycline NF >=16 R Vancomycin $ 1 S (NF) indicates non-formulary drug at [facility]. Approval by Infectious Disease Specialist required before non-formulary drugs may be ordered and/or dispensed. * CLSI guidelines does not recommend testing of cephalosporins. This interpretation is deduced from Beta-lactam/penicillin results. Performed By: #### M100.0650 #### [facility] [address] [place], [place], [address] BASIC METABOLIC Collected: 07/12/2017 Status: F Source: [place] PROFILE (BMP) 2:15 PM [facility] REPOSITORY TYPE CODE TESTS RESULT OUT OF RANGE REFERENCE UNITS LAB L501.0100 70-110 mg/dL Normal GLU 72 LAB L501.1000 7-18 mg/dL High BUN 43 LAB L501.1100 0.70-1.30 mg/dL High 2.47 CREAT,SERUM Result Comment: The validity of the calculated GFR AND GFRAA in patients over 70 years has not been determined. Clinical correlation is essential. LAB L501.1110 >60 mL/min Low EST GFR 32 Result Comment: Non- GFR Calc LAB L501.1115 >60 mL/min Low EST GFR - AA 38 Result Comment: GFR Calc LAB L501.1255 ml/min Normal Estimated CRCL 34.95 LAB L501.1300 10-20 RATIO Normal BUN/CRE 17.4 LAB L501.2200 8.5-10 mg/dL Low .1 CA 8.3 LAB L501.5300 136-14 mmol/L Normal 5 NA 141 LAB L501.5600 3.5-5. mmol/L Normal 1 K 4.8 LAB L501.5900 98-107 mmol/L Normal CL 107 LAB L501.6100 21.0-3 mmol/L Normal 2.0 CO2 24.0 LAB L501.6200 5-15 Normal GAP 10 Performed By: #### L500.2500 #### [facility] [address] [place], [address] CNPN Observed: 07/11/2017 Status: COMPLETED Source: [place] 12:00 AM [facility] REPOSITORY Telephone (UROLWS) JARON MORSE ([id number]) 1980 M Date Time Provider Department 07/11/17 KELLY DAVENPORT) UROMARIA TERESA During your visit today, we recorded the following information about you: Tomym Daigle LPN 07/11/2017 3:30 PM Signed Received call from pt's caregiver noting that today pt appears to have blood in catheter collection bag. Urine appears cranberry in color. Caregiver notes that they have been treating pt with ditropan and renacidan as ordered. New orders? Please advise Roz Montalvo Ma 07/12/2017 3:54 PM Signed Increase water intake and see if this lessens the blood color, if no clots, and no fever. Ok that be seen by resident MD who takes care of the patient. ?Understanding that if any cultures are taken for urine. It MUST only come from franco, not the tubing or collection bag. Thank you, Jojo Montalvo Ma 07/12/2017 3:54 PM Signed Pt in [facility] and not [facility]. Ok to order urine culture? Please review and advise. KARLIE Gonzalez Ma 07/14/2017 12:25 PM Signed Kelly Davenport (Pa) ?You 21 hours ago (3:14 PM) ? Yes ok to do culture (Routing comment) ? Left detailed message for nurse to inform of orders and instructions. Roz Montalvo Ma 07/24/2017 1:08 PM Signed Pt had recent ER visit and was sent to [facility] Urology with recommendation of cystoscopy. Roz Montalvo Ma Allergies As of Date: 07/11/2017 Noted Allergy Reaction SEASONAL ALLERGIES 12/03/2012 14 - Other: See Comments Comments: Environmental-ragweed Date Reviewed: 06/08/2017 Reviewed by: Roz Montalvo Ma - Fully Assessed Reason for Visit: Question [1327] Primary Visit Diagnosis:Retention of urine, unspecified [R33.9] Order(s):URINE CULTURE [SQURCUL] Order #: [id number] Prescriptions as of 07/11/2017 Sig: ASPIRIN 81 MG TABLET,DELAYED * TAKE (1) TABLET BY MOUTH JACQUELIN* PANTOPRAZOLE 40 MG TABLET,DEL* TAKE 1 TABLET BY MOUTH ONCE D* CITRIC [id number] CARB 6.6* 30 mL by INTRAVESICAL route t* ND-ACID GAS RELIEF 80 MG CHEW* CHEW 1 TABLET BY MOUTH WITH M* OLOPATADINE 0.7 % EYE DROPS Use 1 Drop in eyes once daily. METOPROLOL TARTRATE 25 MG TAB* TAKE (1/2) TABLET BY MOUTH TW* ATENOLOL ORAL Take by mouth. Pt unsure of * SENNOSIDES 8.6 MG TABLET Take 1 tablet by mouth twice * ATORVASTATIN 10 MG TABLET TAKE ONE-HALF (1/2) TABLET AT* INSULIN GLARGINE 100 UNIT/ML * Inject 10 units at 8am and 10* INSULIN LISPRO 100 UNIT/ML DAWSON* Inject 6 Units subcutaneously* GLUCOSE 4 GRAM CHEWABLE TABLET Take 4 tablets by mouth as ne* LANCETS Test blood sugar(s) 8 times d* BLOOD SUGAR DIAGNOSTIC STRIPS Test blood sugar(s) 8 times d* PEN NEEDLE, DIABETIC 31 GAUGE* TAKE FIVE- SIX INJECTIONS VASYL* FLUTICASONE 50 MCG/ACTUATION * USE 2 SPRAYS IN EACH NOSTRIL * ASCORBIC ACID (VITAMIN C) 1,0* Take 1 tablet by mouth once d* MELATONIN 3 MG TABLET Take 1 tablet by mouth daily * POLYETHYLENE GLYCOL 3350 17 G* Dissolve 1 capful (17gms) in * OXYBUTYNIN CHLORIDE 5 MG TABL* Take 1 tablet by mouth as nee* MUPIROCIN 2 % TOPICAL OINTMENT Apply 1 application to affect* LORATADINE 10 MG TABLET Take 1 tablet by mouth once d* ALBUTEROL SULFATE HFA 90 MCG/* Inhale 2 Puffs as instructed * QUETIAPINE 200 MG TABLET TAKE (1) TABLET BY MOUTH TWIC* QUETIAPINE 100 MG TABLET TAKE 1 TABLET BY MOUTH ONCE D* CHOLECALCIFEROL (VITAMIN D3) * Take 1 capsule by mouth once * AMMONIUM LACTATE 12 % TOPICAL* Apply 1 application to affect* FLUOXETINE 20 MG TABLET Take 1 tablet by mouth once d* COMPOUNDED PRESCRIPTION Please provide ARKKCASSIE glucoca* BISACODYL 10 MG RECTAL SUPPOS* 1 Suppository by RECTAL route* FLUOXETINE 10 MG CAPSULE Take 1 capsule by mouth once * GUAIFENESIN ER 600 MG TABLET,* Take 2 tablets by mouth twice* HYDROCORTISONE VALERATE 0.2 %* Apply 1 application to affect* KETOCONAZOLE 2 % SHAMPOO Apply lather to affected skin* CARBAMIDE PEROXIDE 6.5 % EAR * Use 5 Drops in both ears twic* DOCUSATE SODIUM 100 MG CAPSULE Take 1 capsule by mouth twice* GLUCAGON (HUMAN RECOMBINANT) * Inject 1 mg intramuscularly a* Problem List As Of Date 07/11/2017 Noted Resolved ATTN DEFICIT W HYPERACT [F90.9] INVALID FOR* Uncontrolled type 1 diabetes mellitus (HCC) [E1*INVALID FOR* DIABETES TYPE I W HYPOGLYCEMIA UNAWARENESS [E10*INVALID FOR* NOCTURNAL ENURESIS [N39.44] INVALID FOR* CONTUSION LEG NOS [S80.10XA] INVALID FOR* BLADDER DISORDER NEC [596.8] INVALID FOR* RETENTION OF URINE UNSPEC [R33.9] INVALID FOR* HYDRONEPHROSIS [N13.30] INVALID FOR* 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 Pain in joint, lower leg [M25.569] INVALID FOR* Acute gastritis without mention of hemorrhage [*INVALID FOR* Hemorrhage of gastrointestinal tract, unspecifi*INVALID FOR* Presence of suprapubic catheter [Z93.59] Other malaise and fatigue [R53.81, R53.83] INVALID FOR* Generalized dysmotility of intestine [K59.8] INVALID FOR* More... 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 Allergic rhinitis [J30.9] Chronic renal failure [N18.9] INVALID FOR* Closed fracture of radius [S52.90XA] INVALID FOR* Encounter Status:Closed by TOMMY DAIGLE LPN on 07/19/17 OBSOLETE Observed: 06/23/2017 Status: COMPLETED Source: [place] 12:00 AM [facility] REPOSITORY Refill (INTMWS) JARON MORSE ([id number]) 1980 M Date Time Provider Department 06/23/17 FRANCINE CLARK INTAdenikeWS During your visit today, we recorded the following information about you: Khloe Pruett LPN 06/23/2017 1:58 PM Signed Patient's pharmacy requesting refills as follows: Pending Prescriptions Disp Refills ASPIRIN 81 MG TABLET,DELAYED RELEASE 28 tablet 11 Sig: TAKE (1) TABLET BY MOUTH DAILY IN THE MORNING. ADEOLA: no PANTOPRAZOLE 40 MG TABLET,DELAYED RELEASE 28 tablet 11 Sig: TAKE 1 TABLET BY MOUTH ONCE DAILY 1/2 HR BEFORE BREAKFAST ADEOLA: no Last appt with pcp 03/15/17 Please review and advise. Khloe Clark MD 06/24/2017 1:07 PM Signed The following approved medication requests have been transmitted electronically. Signed Prescriptions Disp Refills aspirin, enteric coated (ASPIRIN, ENTERIC COATED) 81 mg EC tablet 28 tablet 11 Sig: TAKE (1) TABLET BY MOUTH DAILY IN THE MORNING. ADEOLA: No Authorizing Provider: FRANCINE CLARK pantoprazole DR (PROTONIX) 40 mg tablet 28 tablet 11 Sig: TAKE 1 TABLET BY MOUTH ONCE DAILY 1/2 HR BEFORE BREAKFAST ADEOLA: No Authorizing Provider: FRANCINE CLARK MD Allergies As of Date: 06/23/2017 Noted Allergy Reaction SEASONAL ALLERGIES 12/03/2012 14 - Other: See Comments Comments: Environmental-ragweed Date Reviewed: 06/08/2017 Reviewed by: Roz Montalvo Ma - Fully Assessed Reason for Visit: Refill Request [94] Order(s):aspirin, enteric coated (ASPIRIN, ENTERIC COATED) 81 mg EC tabletTAKE (1) TABLET BY MOUTH DAILY IN THE MORNING.Disp: 28 tabletRfl: [address] (PROTONIX) 40 mg tabletTAKE 1 TABLET BY MOUTH ONCE DAILY 1/2 HR BEFORE BREAKFASTDisp: 28 tabletRfl: 11 Prescriptions as of 06/23/2017 Sig: ASPIRIN 81 MG TABLET,DELAYED * TAKE (1) TABLET BY MOUTH JACQUELIN* PANTOPRAZOLE 40 MG TABLET,DEL* TAKE 1 TABLET BY MOUTH ONCE D* CITRIC ZD-[id number]-YH CARB 6.6* 30 mL by INTRAVESICAL route t* ND-ACID GAS RELIEF 80 MG CHEW* CHEW 1 TABLET BY MOUTH WITH M* OLOPATADINE 0.7 % EYE DROPS Use 1 Drop in eyes once daily. METOPROLOL TARTRATE 25 MG TAB* TAKE (1/2) TABLET BY MOUTH TW* ATENOLOL ORAL Take by mouth. Pt unsure of * SENNOSIDES 8.6 MG TABLET Take 1 tablet by mouth twice * ATORVASTATIN 10 MG TABLET TAKE ONE-HALF (1/2) TABLET AT* INSULIN GLARGINE 100 UNIT/ML * Inject 10 units at 8am and 10* INSULIN LISPRO 100 UNIT/ML DAWSON* Inject 6 Units subcutaneously* GLUCOSE 4 GRAM CHEWABLE TABLET Take 4 tablets by mouth as ne* LANCETS Test blood sugar(s) 8 times d* BLOOD SUGAR DIAGNOSTIC STRIPS Test blood sugar(s) 8 times d* PEN NEEDLE, DIABETIC 31 GAUGE* TAKE FIVE- SIX INJECTIONS VASYL* FLUTICASONE 50 MCG/ACTUATION * USE 2 SPRAYS IN EACH NOSTRIL * ASCORBIC ACID (VITAMIN C) 1,0* Take 1 tablet by mouth once d* MELATONIN 3 MG TABLET Take 1 tablet by mouth daily * POLYETHYLENE GLYCOL 3350 17 G* Dissolve 1 capful (17gms) in * OXYBUTYNIN CHLORIDE 5 MG TABL* Take 1 tablet by mouth as nee* MUPIROCIN 2 % TOPICAL OINTMENT Apply 1 application to affect* LORATADINE 10 MG TABLET Take 1 tablet by mouth once d* ALBUTEROL SULFATE HFA 90 MCG/* Inhale 2 Puffs as instructed * QUETIAPINE 200 MG TABLET TAKE (1) TABLET BY MOUTH TWIC* QUETIAPINE 100 MG TABLET TAKE 1 TABLET BY MOUTH ONCE D* CHOLECALCIFEROL (VITAMIN D3) * Take 1 capsule by mouth once * AMMONIUM LACTATE 12 % TOPICAL* Apply 1 application to affect* FLUOXETINE 20 MG TABLET Take 1 tablet by mouth once d* COMPOUNDED PRESCRIPTION Please provide ARKKCASSIE glucoca* BISACODYL 10 MG RECTAL SUPPOS* 1 Suppository by RECTAL route* FLUOXETINE 10 MG CAPSULE Take 1 capsule by mouth once * GUAIFENESIN ER 600 MG TABLET,* Take 2 tablets by mouth twice* HYDROCORTISONE VALERATE 0.2 %* Apply 1 application to affect* KETOCONAZOLE 2 % SHAMPOO Apply lather to affected skin* CARBAMIDE PEROXIDE 6.5 % EAR * Use 5 Drops in both ears twic* DOCUSATE SODIUM 100 MG CAPSULE Take 1 capsule by mouth twice* GLUCAGON (HUMAN RECOMBINANT) * Inject 1 mg intramuscularly a* Problem List As Of Date 06/23/2017 Noted Resolved ATTN DEFICIT W HYPERACT [F90.9] INVALID FOR* Uncontrolled type 1 diabetes mellitus (HCC) [E1*INVALID FOR* DIABETES TYPE I W HYPOGLYCEMIA UNAWARENESS [E10*INVALID FOR* NOCTURNAL ENURESIS [N39.44] INVALID FOR* CONTUSION LEG NOS [S80.10XA] INVALID FOR* BLADDER DISORDER NEC [596.8] INVALID FOR* RETENTION OF URINE UNSPEC [R33.9] INVALID FOR* HYDRONEPHROSIS [N13.30] INVALID FOR* 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 Pain in joint, lower leg [M25.569] INVALID FOR* Acute gastritis without mention of hemorrhage [*INVALID FOR* Hemorrhage of gastrointestinal tract, unspecifi*INVALID FOR* Presence of suprapubic catheter [Z93.59] Other malaise and fatigue [R53.81, R53.83] INVALID FOR* Generalized dysmotility of intestine [K59.8] INVALID FOR* More... 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 Allergic rhinitis [J30.9] Chronic renal failure [N18.9] INVALID FOR* Closed fracture of radius [S52.90XA] INVALID FOR* Prescriptions ordered this encounter Disp Refills Start End ASPIRIN 81 MG TABLET,DELAYED RELEASE 28 t* 11 06/24/2017 Sig: TAKE (1) TABLET BY MOUTH DAILY IN THE MORNING. PANTOPRAZOLE 40 MG TABLET,DELAYED RE* 28 t* 11 06/24/2017 Sig: TAKE 1 TABLET BY MOUTH ONCE DAILY 1/2 HR BEFORE BREAKFAST Medications Discontinued During This Encounter aspirin, enteric coated (ASPIRIN, EN* 90 t* 3 09/16/2016 06/24/2017 Route: ORAL Sig: Take 1 tablet by mouth once daily. Disc: Reason for discontinue is not on file. pantoprazole DR (PROTONIX) 40 mg tab* 31 t* 0 04/21/2017 06/24/2017 Sig: TAKE 1 TABLET BY MOUTH ONCE DAILY 1/2 HR BEFORE BREAKFAST Disc: Reason for discontinue is not on file. Encounter Status:Closed by KHLOE PRUETT LPN on 06/26/17 DISCHARGE INSTRUCTION Observed: 06/18/2017 Status: F Source: [place] 1:28 AM [facility] REPOSITORY [facility] Medical Records Department [address] [place] [id number] Discharge Instruction 06/18/17 0127 MR#: [id number] Acct: [id number] Name: JARON MORSE Rep #: [id number] : 1980 37 From: Jason Bal MD PCP: Francine Clark MD Status: REG ER ED Disposition - Plan for ED Patient: Chief Complaint: Complaint Instructions: ED UTI Cystitis Male Prescriptions: Smz/Tmp Ds [Bactrim Ds] 1 tab PO BID #20 tab Referrals: Francine Clark MD [Primary Care Provider] - What to do if you have Problems For any increased pain, shortness of breath, bleeding, nausea or vomiting, chest pain, or any unexpected problems, contact your Primary Care Provider. Call [facility] ([phone]) or report to the closest Emergency Room. Call 911 if necessary. 06/18/17 0128 <Electronically signed by Jason Bal MD> Date Jason Bal MD Cosigner Signature (If Indicated): Date CC: Francine Clark MD EMERGENCY DEPARTMENT Observed: 06/18/2017 Status: F Source: [place] SUMMARY 1:26 AM [facility] REPOSITORY [facility] Medical Records Department [address] [place] [address] Emergency Department Summary 06/18/17 0122 MR#: [id number] Acct: [id number] Name: MINIJARON D Rep #: [id number] : 1980 37 From: Jason Bal MD PCP: Francine Clark MD Status: REG ER - ER Visit Summary Date of Service: 06/18/17 Chief Complaint: Hematuria History of Present Illness: The patient is a 37 M who presents with hematuria. He does have a suprapubic catheter. They have noticed some blood in his urine over the past 5 days. He has an appointment with the weblogic administrator next week. He has been urinating from the penis. He complains of dysuria. He was recently started on renacidin irrigation as well. The nurse thought it may be related to irritation from irrigation. However the patient felt like his catheter was not draining today and wanted to be seen in the emergency department. No systemic symptoms such as fevers or vomiting. Did have lab work and urine culture yesterday. Staff does not yet know the results. Physical Examination: Afebrile vitals unremarkable Heart regular rate and rhythm Lungs are clear Abdomen soft nontender nondistended Suprapubic catheter noted [place] tinged urine noted in the tubing Test Results: UA shows 500 leukocyte esterase, 250 blood, greater than 100 WBCs, 10-25 RBCs. Emergency Department Course and Treatment: UA is consistent with infection. His catheter was irrigated here and is falling well. We will start him on Bactrim. Staff was advised to make a follow-up appointment with urology. Treatment Plan: [] Disposition: Discharge Impression: UTI Chronic indwelling suprapubic catheter This note was generated with righTune dictation software. It may contain incorrect words, spelling, and punctuation that were not noted in review of the chart prior to signing ED Disposition - Plan for ED Patient: Chief Complaint: Complaint Referrals: Francine Clark MD [Primary Care Provider] - What to do if you have Problems For any increased pain, shortness of breath, bleeding, nausea or vomiting, chest pain, or any unexpected problems, contact your Primary Care Provider. Call [facility] ([phone]) or report to the closest Emergency Room. Call 911 if necessary. 06/18/17 0126 <Electronically signed by Jason Bal MD> Date Jason Bal MD Cosigner Signature (If Indicated): Date CC: Francine Clark MD URINALYSIS, COMPLETE Collected: 06/18/2017 Status: F Source: [place] 12:22 AM [facility] REPOSITORY Order Comment: COLOR OF URINE MAY AFFECT DIPSTICK RESULTS. How was Urine Obtained? CLEAN CATCH TYPE CODE TESTS RESULT OUT OF RANGE REFERENCE UNITS LAB L400.3000 Yellow COLOR Normal Jessica LAB L400.3050 Clear Normal CLARITY Cloudy LAB L400.3200 Normal mg/dl High GLUCOSE, UR 100 LAB L400.3300 Negative mg/dL Normal BILIRUBIN URINE Negative LAB L400.3400 Negative mg/dl Normal KETONE UR Negative LAB L400.3465 1.002-1.030 Normal SP.GR. DIPSTX 1.010 LAB L400.3550 5.0 - 8.0 pH UR Normal 6.0 LAB L400.3600 Negative mg/dl High PROT DIPSTX 100 LAB L400.3700 Normal mg/dl Normal UROBILI Normal LAB L400.3750 Negative Normal NITRITE UR Negative LAB L400.3780 Negative /ul High OCCULT BLOOD-UR 250 LAB L400.3800 Negative /ul High LEUK ESTERASE 500 LAB L400.4050 0-5 /hpf WBC Normal >100 SEEN LAB L400.4100 0-5 /hpf Normal RBC-UA 10-25 SEEN LAB L400.4150 0-5 /hpf SQUAM 0 Normal EPI SEEN LAB L400.4300 None Seen /hpf 0 Normal BACTERIA SEEN LAB L400.4350 <or=2+ /hpf 0 Normal MUCUS, URINE SEEN Performed By: #### L400.0001 #### [facility] [address] [place], [place], [address] URINALYSIS WITH Collected: 06/16/2017 Status: F Source: [facility] 12:56 PM [facility] REPOSITORY TYPE CODE TESTS RESULT OUT OF RANGE REFERENCE UNITS LAB UCOL Yellow Color Abnormal Red Alert LAB [facility] Clear Clarity Abnormal Cloudy Alert LAB UGLUC Negative mg/dL Glucose, Urine Negative LAB UBIL Negative Bilirubin, Urine Negative LAB UKET Negative Ketones, Urine Negative LAB USPG 1.005-1.030 Specific [place], Ur 1.008 LAB UHGB Negative Abnormal Hemoglobin/Blood, 3+ Alert Ur LAB UPH 4.5-8.0 pH 7.0 LAB UPROT Negative mg/dL Protein, Abnormal Urine 30 Alert LAB UUROB Normal Urobilinogen Normal LAB UNITR Negative Nitrites Negative LAB ULKEST Negative Leukest Abnormal 3+ Alert LAB UCOM Comments SEE COMMENT Result Comment: N/A LAB UMCOM Urine SEE Bruno Comment COMMENT Result Comment: N/A LAB UWBC 0-5 /HPF Abnormal Alert WBC >25 LAB URBC 0-3 /HPF Abnormal Alert RBC >25 LAB UYEA 0 /HPF Abnormal Alert Yeast Many Result Comment: Budding Yeast Performed By: #### UAWMIC #### [facility] [address] [place], [place] [address] Observed: 06/16/2017 Status: F Source: [place] URINE CULTURE 12:56 PM [facility] REPOSITORY Sp. Request/Comment: - Specimen received in preservative Culture Result - >=100,000 CFU/ml Enterococcus faecalis --> ABNORMAL ALERT >=100,000 CFU/ml Normal urogenital natalie ORGANISM: Enterococcus faecalis METHOD: Minimum inhibitory concentration(Vitek) Antibiotic Interp BRUNO Status Ampicillin SUSCEPTIBLE <=2 F Nitrofurantoin SUSCEPTIBLE <=16 F Vancomycin SUSCEPTIBLE 1 F Performed By: #### URCUL #### [facility] [address] [place], [place] [address] PROGRESS Observed: 06/08/2017 Status: COMPLETED Source: [place] 6:54 PM [facility] REPOSITORY HNO ID: [id number] Author: Kelly Davenport (Pa) Service: (none) Author Type: Physician Bearing Maker Type: Progress Notes Filed: 06/08/2017 7:00 PM Note Text: December 22, 2016 CC : Chronic retention, renal failure; Neurogenic Bladder HPI: Patient for 1 year follow-up. He was seen recentlyat ED for urinary leaking and concerns No nausea vomiting diarrhea fevers chills or weight loss. He has his SPT catheter changed every 3 months and has had no c/o's today. Was scheduled for dialysis starting in May 2016, however, his Technical Fellow has postponed that at this time , because he has become stable. He has fistula in place but not started LAB RESULTS: Pertinent labs and images reviewed. Physical Exam: PHYSICAL EXAMINATION: General appearance: cooperative, pleasant, no acute distress, alert and oriented, well hydrated, well nourished male. Abdomen : +ve SPT in place without signs of infection or skin problems. He does have some minor skin areas in anal crack that look raw but not infected IMPRESSION/Plan: Neurogenic Bladder - SPT Changes Every 3 months continued by usp > Ditropan Refill sent today > Renal Dysfunction - Followed by Nephrology > Skin Breakdown in anal crack without obvious infection just redness recommended topical Bacitracin until he can be evaluated by PCP or Cytometry Technologist > apply small amount to affected area twice per day as needed > Follow - up in 1 year with U/A or sooner if needed > Please fax my chart notes to [facility] Kelly ELIA Stewart MT, PA-C CNOV Observed: 06/08/2017 Status: COMPLETED Source: [place] 1:00 PM [facility] REPOSITORY Office Visit (UROLWS) JARON MORSE ([id number]) 1980 M Date Time Provider Department 06/08/17 1:00 PM KELLY DAVENPORT (VASILE) UROLWS During your visit today, we recorded the following information about you: Pulse Blood pressure Weight 84/minute 122/64 97.5 kg [place] 06/08/2017 7:00 PM Signed December 22, 2016 CC : Chronic retention, renal failure; Neurogenic Bladder HPI: Patient for 1 year follow-up. He was seen recentlyat ED for urinary leaking and concerns No nausea vomiting diarrhea fevers chills or weight loss. He has his SPT catheter changed every 3 months and has had no c/o's today. Was scheduled for dialysis starting in May 2016, however, his Technical Fellow has postponed that at this time , because he has become stable. He has fistula in place but not started LAB RESULTS: Pertinent labs and images reviewed. Physical Exam: PHYSICAL EXAMINATION: General appearance: cooperative, pleasant, no acute distress, alert and oriented, well hydrated, well nourished male. Abdomen : +ve SPT in place without signs of infection or skin problems. He does have some minor skin areas in anal crack that look raw but not infected IMPRESSION/Plan: Neurogenic Bladder - SPT Changes Every 3 months continued by usp ANDgt; Ditropan Refill sent today ANDgt; Renal Dysfunction - Followed by Nephrology ANDgt; Skin Breakdown in anal crack without obvious infection just redness recommended topical Bacitracin until he can be evaluated by PCP or Cytometry Technologist ANDgt; apply small amount to affected area twice per day as needed ANDgt; Follow - up in 1 year with U/A or sooner if needed ANDgt; Please fax my chart notes to [facility] LIA Mendiola MT, FAYEC Roz Montalvo Ma 06/09/2017 9:41 AM Addendum 30ml of Renacidin solution to be instilled into catheter 3 times daily. Clamp catheter for 30 minutes and then drain. This is to try to reduce sediment and improve urine flow. Call office with any questions. 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 PANTOPRAZOLE 40 MG TABLET,DEL* TAKE 1 TABLET BY MOUTH ONCE D* METOPROLOL TARTRATE 25 MG TAB* TAKE (1/2) TABLET BY MOUTH TW* SENNOSIDES 8.6 MG TABLET Take 1 tablet by mouth twice * ATORVASTATIN 10 MG TABLET TAKE ONE-HALF (1/2) TABLET AT* INSULIN LISPRO 100 UNIT/ML DAWSON* Inject 6 Units subcutaneously* BLOOD SUGAR DIAGNOSTIC STRIPS Test blood sugar(s) 8 times d* PEN NEEDLE, DIABETIC 31 GAUGE* TAKE FIVE- SIX INJECTIONS VASYL* ASCORBIC ACID (VITAMIN C) 1,0* Take 1 tablet by mouth once d* MELATONIN 3 MG TABLET Take 1 tablet by mouth daily * POLYETHYLENE GLYCOL 3350 17 G* Dissolve 1 capful (17gms) in * OXYBUTYNIN CHLORIDE 5 MG TABL* Take 1 tablet by mouth as nee* ASPIRIN 81 MG TABLET,DELAYED * Take 1 tablet by mouth once d* LORATADINE 10 MG TABLET Take 1 tablet by mouth once d* ALBUTEROL SULFATE HFA 90 MCG/* Inhale 2 Puffs as instructed * QUETIAPINE 200 MG TABLET TAKE (1) TABLET BY MOUTH TWIC* QUETIAPINE 100 MG TABLET TAKE 1 TABLET BY MOUTH ONCE D* AMMONIUM LACTATE 12 % TOPICAL* Apply 1 application to affect* FLUOXETINE 10 MG CAPSULE Take 1 capsule by mouth once * KETOCONAZOLE 2 % SHAMPOO Apply lather to affected skin* GLUCAGON (HUMAN RECOMBINANT) * Inject 1 mg intramuscularly a* CITRIC ZN-ZVSSTHQ-VT CARB 6.6* 30 mL by INTRAVESICAL route t* ATENOLOL ORAL Take by mouth. Pt unsure of * INSULIN GLARGINE 100 UNIT/ML * Inject 10 units at 8am and 10* GLUCOSE 4 GRAM CHEWABLE TABLET Take 4 tablets by mouth as ne* LANCETS Test blood sugar(s) 8 times d* FLUTICASONE 50 MCG/ACTUATION * USE 2 SPRAYS IN EACH NOSTRIL * MUPIROCIN 2 % TOPICAL OINTMENT Apply 1 application to affect* CHOLECALCIFEROL (VITAMIN D3) * Take 1 capsule by mouth once * FLUOXETINE 20 MG TABLET Take 1 tablet by mouth once d* COMPOUNDED PRESCRIPTION Please provide ARKKAY glucoca* BISACODYL 10 MG RECTAL SUPPOS* 1 Suppository by RECTAL route* GUAIFENESIN ER 600 MG TABLET,* Take 2 tablets by mouth twice* HYDROCORTISONE VALERATE 0.2 %* Apply 1 application to affect* CARBAMIDE PEROXIDE 6.5 % EAR * Use 5 Drops in both ears twic* DOCUSATE SODIUM 100 MG CAPSULE Take 1 capsule by mouth twice* Problem List As Of Date 06/08/2017 Noted Resolved ATTN DEFICIT W HYPERACT [F90.9] INVALID FOR* Uncontrolled type 1 diabetes mellitus (HCC) [E1*INVALID FOR* DIABETES TYPE I W HYPOGLYCEMIA UNAWARENESS [E10*INVALID FOR* NOCTURNAL ENURESIS [N39.44] INVALID FOR* CONTUSION LEG NOS [S80.10XA] INVALID FOR* BLADDER DISORDER NEC [596.8] INVALID FOR* RETENTION OF URINE UNSPEC [R33.9] INVALID FOR* HYDRONEPHROSIS [N13.30] INVALID FOR* 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 Pain in joint, lower leg [M25.569] INVALID FOR* Acute gastritis without mention of hemorrhage [*INVALID FOR* Hemorrhage of gastrointestinal tract, unspecifi*INVALID FOR* Presence of suprapubic catheter [Z93.59] Other malaise and fatigue [R53.81, R53.83] INVALID FOR* Generalized dysmotility of intestine [K59.8] INVALID FOR* More... 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 Allergic rhinitis [J30.9] Chronic renal failure [N18.9] INVALID FOR* Closed fracture of radius [S52.90XA] INVALID FOR* Other instructions from your clinician: 30ml of Renacidin solution to be instilled into catheter 3 times daily. Clamp catheter for 30 minutes and then drain. This is to try to reduce sediment and improve urine flow. Call office with any questions. Prescriptions ordered this encounter Disp Refills Start End CITRIC XC-UMSOBJZ-RD CARB 6.602 GRAM* 2700* 2 06/08/2017 09/06/2017 Route: INTRAVESIC Si mL by INTRAVESICAL route three times daily. Disposition: Return in about 1 year (around 06/08/2018). Follow-up and Disposition History Recorded Encounter Status:Closed by KELLY DAVENPORT PA-C on 06/08/17 KIT Observed: 06/08/2017 Status: COMPLETED Source: [place] 12:00 AM [facility] REPOSITORY Telephone (UROLWS) MINIJARON D ([id number]) 1980 M Date Time Provider Department 06/08/17 KELLY DAVENPORT) UROLWS During your visit today, we recorded the following information about you: Shilpi Robles SHELLEY 06/08/2017 3:56 PM Signed [facility] contacted office for clarification on rx for renacidin that was sent today. They are not able to get the single use vials at all but can order in the hang bottle version of the same. We are to call the pharmacy at [phone]. Roz Montalvo Ma 06/09/2017 9:41 AM Addendum 30ml of Renacidin solution to be instilled into catheter 3 times daily. Clamp catheter for 30 minutes and then drain. This is to try to reduce sediment and improve urine flow. Caregiver contacting another pharmacy to see about getting individual pre measured vials. Roz Montalvo Ma ? Allergies As of Date: 06/08/2017 Noted Allergy Reaction SEASONAL ALLERGIES 12/03/2012 14 - Other: See Comments Comments: Environmental-ragweed Date Reviewed: 06/08/2017 Reviewed by: Roz Montalvo Ma - Fully Assessed Reason for Visit: Medication Problem [65] Prescriptions as of 06/08/2017 Sig: CITRIC PX-JYHYBWD-OS CARB 6.6* 30 mL by INTRAVESICAL route t* ND-ACID GAS RELIEF 80 MG CHEW* CHEW 1 TABLET BY MOUTH WITH M* OLOPATADINE 0.7 % EYE DROPS Use 1 Drop in eyes once daily. PANTOPRAZOLE 40 MG TABLET,DEL* TAKE 1 TABLET BY MOUTH ONCE D* METOPROLOL TARTRATE 25 MG TAB* TAKE (1/2) TABLET BY MOUTH TW* ATENOLOL ORAL Take by mouth. Pt unsure of * SENNOSIDES 8.6 MG TABLET Take 1 tablet by mouth twice * ATORVASTATIN 10 MG TABLET TAKE ONE-HALF (1/2) TABLET AT* INSULIN GLARGINE 100 UNIT/ML * Inject 10 units at 8am and 10* INSULIN LISPRO 100 UNIT/ML DAWSON* Inject 6 Units subcutaneously* GLUCOSE 4 GRAM CHEWABLE TABLET Take 4 tablets by mouth as ne* LANCETS Test blood sugar(s) 8 times d* BLOOD SUGAR DIAGNOSTIC STRIPS Test blood sugar(s) 8 times d* PEN NEEDLE, DIABETIC 31 GAUGE* TAKE FIVE- SIX INJECTIONS VASYL* FLUTICASONE 50 MCG/ACTUATION * USE 2 SPRAYS IN EACH NOSTRIL * ASCORBIC ACID (VITAMIN C) 1,0* Take 1 tablet by mouth once d* MELATONIN 3 MG TABLET Take 1 tablet by mouth daily * POLYETHYLENE GLYCOL 3350 17 G* Dissolve 1 capful (17gms) in * OXYBUTYNIN CHLORIDE 5 MG TABL* Take 1 tablet by mouth as nee* MUPIROCIN 2 % TOPICAL OINTMENT Apply 1 application to affect* ASPIRIN 81 MG TABLET,DELAYED * Take 1 tablet by mouth once d* LORATADINE 10 MG TABLET Take 1 tablet by mouth once d* ALBUTEROL SULFATE HFA 90 MCG/* Inhale 2 Puffs as instructed * QUETIAPINE 200 MG TABLET TAKE (1) TABLET BY MOUTH TWIC* QUETIAPINE 100 MG TABLET TAKE 1 TABLET BY MOUTH ONCE D* CHOLECALCIFEROL (VITAMIN D3) * Take 1 capsule by mouth once * AMMONIUM LACTATE 12 % TOPICAL* Apply 1 application to affect* FLUOXETINE 20 MG TABLET Take 1 tablet by mouth once d* COMPOUNDED PRESCRIPTION Please provide ARKKAY glucoca* BISACODYL 10 MG RECTAL SUPPOS* 1 Suppository by RECTAL route* FLUOXETINE 10 MG CAPSULE Take 1 capsule by mouth once * GUAIFENESIN ER 600 MG TABLET,* Take 2 tablets by mouth twice* HYDROCORTISONE VALERATE 0.2 %* Apply 1 application to affect* KETOCONAZOLE 2 % SHAMPOO Apply lather to affected skin* CARBAMIDE PEROXIDE 6.5 % EAR * Use 5 Drops in both ears twic* DOCUSATE SODIUM 100 MG CAPSULE Take 1 capsule by mouth twice* GLUCAGON (HUMAN RECOMBINANT) * Inject 1 mg intramuscularly a* Problem List As Of Date 06/08/2017 Noted Resolved ATTN DEFICIT W HYPERACT [F90.9] INVALID FOR* Uncontrolled type 1 diabetes mellitus (HCC) [E1*INVALID FOR* DIABETES TYPE I W HYPOGLYCEMIA UNAWARENESS [E10*INVALID FOR* NOCTURNAL ENURESIS [N39.44] INVALID FOR* CONTUSION LEG NOS [S80.10XA] INVALID FOR* BLADDER DISORDER NEC [596.8] INVALID FOR* RETENTION OF URINE UNSPEC [R33.9] INVALID FOR* HYDRONEPHROSIS [N13.30] INVALID FOR* 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 Pain in joint, lower leg [M25.569] INVALID FOR* Acute gastritis without mention of hemorrhage [*INVALID FOR* Hemorrhage of gastrointestinal tract, unspecifi*INVALID FOR* Presence of suprapubic catheter [Z93.59] Other malaise and fatigue [R53.81, R53.83] INVALID FOR* Generalized dysmotility of intestine [K59.8] INVALID FOR* More... 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 Allergic rhinitis [J30.9] Chronic renal failure [N18.9] INVALID FOR* Closed fracture of radius [S52.90XA] INVALID FOR* Encounter Status:Closed by ROZ MONTALVO MA on 06/09/17 EMERGENCY DEPARTMENT Observed: 06/06/2017 Status: F Source: BARTOW SUMMARY 7:22 PM [facility] REPOSITORY [facility] Medical Records Department [address] [place] [address] Emergency Department Summary 06/06/17 1644 MR#: [id number] Acct: [id number] Name: JARON MORSE Yaquelin Rep #: [id number] : 1980 37 From: Radha Velasco MD PCP: Francine Clark MD Status: REG ER - ER Visit Summary Date of Service: 06/06/17 Chief Complaint: Suprapubic catheter not draining History of Present Illness: The patient is a 37 M presenting with problems with his suprapubic catheter. He states the catheter stopped draining. He is now having urination through his penis. He has had the suprapubic catheter for several years. He was recently admitted to the hospital for UTI. His catheter was changed during that admission. He is concerned about a new infection. He finished antibiotics approximately 1 week ago. Denies fever or other complaints. Physical Examination: Vitals are stable. Patient is afebrile. Alert no acute distress. HEENT exam is unremarkable. Neck is supple. Lungs are clear and equal bilaterally. Heart is regular rate and rhythm. Abdomen is soft nontender nondistended. Suprapubic catheter in place Extremities are unremarkable. Skin is warm and dry. Remainder of exam is unremarkable. Emergency Department Course and Treatment: Suprapubic catheter was irrigated is now draining appropriately. Chemistries show BUN 44, creatinine 2.58. This is near his baseline. Glucose 263. Urinalysis shows 25-50 white blood cells with positive leukocytes. Urine culture was sent. Due to the sediment in his urine he is restarted on Cipro. He has an appointment with his urologist tomorrow. Advised to keep this appointment as scheduled. CT abdomen pelvis shows moderate stool throughout the colon. retirement staff states he has been having normal bowel movements. Patient is feeling improved. Repeat abdominal exam is soft nontender with no rebound or guarding. Advised return ED if worsening complaints. Disposition: Discharge home Impression: UTI, suprapubic catheter irrigation This note was generated with righTune dictation software. It may contain incorrect words, spelling, and punctuation that were not noted in review of the chart prior to signing ED Disposition - Plan for ED Patient: Chief Complaint: Abd Pain Referrals: Francine Clark MD [Primary Care Provider] - What to do if you have Problems For any increased pain, shortness of breath, bleeding, nausea or vomiting, chest pain, or any unexpected problems, contact your Primary Care Provider. Call [facility] ([phone]) or report to the closest Emergency Room. Call 911 if necessary. 06/06/171921 <Electronically signed by Radha Velasco MD> Date Radha Velasco MD Cosigner Signature (If Indicated): Date CC: Francine Clark MD BASIC METABOLIC Collected: 06/06/2017 Status: F Source: GREG PROFILE (BMP) 5:20 PM [facility] REPOSITORY TYPE CODE TESTS RESULT OUT OF RANGE REFERENCE UNITS LAB L501.0100 70-110 mg/dL High GLU 263 Result Comment: Glucose result greater than or equal to 200 mg/dL suggests DIABETES MELLITUS per A.D.A. criteria. LAB L501.1000 7-18 mg/dL High BUN 44 LAB L501.1100 0.70-1.30 mg/dL High CREAT,SERUM 2.58 Result Comment: The validity of the calculated GFR AND GFRAA in patients over 70 years has not been determined. Clinical correlation is essential. LAB L501.1110 >60 mL/min Low EST GFR 30 Result Comment: Non- GFR Calc LAB L501.1115 >60 mL/min Low EST GFR - AA 37 Result Comment: GFR Calc LAB L501.1255 ml/min Normal Estimated CRCL 34.76 LAB L501.1300 10-20 RATIO Normal BUN/CRE 17.1 LAB L501.2200 8.5-10 mg/dL Low .1 CA 8.0 LAB L501.5300 136-14 mmol/L Normal 5 NA 138 LAB L501.5600 3.5-5. mmol/L Normal 1 K 5.0 LAB L501.5900 98-107 mmol/L Normal CL 104 LAB L501.6100 21.0-3 mmol/L Normal 2.0 CO2 27.0 LAB L501.6200 5-15 Normal GAP 7 Performed By: #### L500.2500 #### [facility] [address] [place], [address] ABDOMEN/PELVIS WITHOUT Observed: 06/06/2017 Status: F Source: GREG CONT 4:43 PM [facility] REPOSITORY [facility] Imaging Services [address] [place] [address] Abdomen/Pelvis without Cont MR#: [id number] Acct: [id number] Name: JARON MORSE Yaquelin Rep #: [id number] : 1980 M 37 From: Marilyn Alcala MD PCP: Eduardo [place],Francine Status: REG ER Study: Abdomen/Pelvis without Cont Date of Exam: 06/06/17 Exam# [id number] Ordering Dr: Radha Velasco MD STUDY: CT ABDOMEN AND PELVIS WITHOUT CONTRAST REASON FOR EXAM: Male, 37 years old. Abdominal pain RADIATION DOSAGE (If Supplied By Facility): CTDIvol = ( 19.93 ) mGy, DLP = ( 1040.49 ) mGycm TECHNIQUE: Transaxial images were obtained from the dome of the diaphragm to the symphysis pubis without oral contrast, and without intravenous contrast. Sagittal and coronal images were reconstructed. Individualized dose optimization techniques were used for this CT. COMPARISON: February 21, 2015 FINDINGS: There is minimal atelectasis in both lung bases. There is no pleural effusion. The visualized portions of the heart are within normal limits. Normal liver. The gallbladder is contracted. Normal spleen. Normal pancreas. Normal bilateral adrenal glands. There is cortical thinning in both kidneys with numerous cortical calcifications. There is stable mild prominence of the right ureter. There is stable moderate dilatation of the collecting system in the left kidney and stable moderate dilatation of the left ureter. The stomach is distended. Normal small intestine. There is marked stool throughout the colon. The appendix is surgically absent. Normal abdominal aorta. Normal inferior vena cava. There are small lymph nodes in the retroperitoneum and mesentery. The bladder is decompressed with a suprapubic catheter present. There is mild wall thickening in the bladder. Normal visualized prostate gland. Normal abdominal wall. Normal osseous structures. CT/Abdomen/Pelvis without Cont IMPRESSION: There are no acute bowel abnormalities. There is marked stool throughout the colon. There is no ascites, inflammation or significant lymphadenopathy. The bladder is decompressed with a suprapubic catheter present. There is mild wall thickening in the bladder. There are stable chronic findings in both kidneys. Electronically Signed: Marilyn Alcala MD at 18:35 EST Tel Direct: [phone], Service support , CC: Radha Velasco MD; Francine Clark MD Cryogenic Transport Driver: Signed URINALYSIS, COMPLETE Collected: 06/06/2017 Status: F Source: GREG 4:41 PM [facility] REPOSITORY Order Comment: Order Date: 06/06/17 How was Urine Obtained? CLEAN CATCH TYPE CODE TESTS RESULT OUT OF RANGE REFERENCE UNITS LAB L400.3000 Yellow COLOR Normal Yellow LAB L400.3050 Clear Normal CLARITY Clear LAB L400.3200 Normal mg/dl High GLUCOSE, UR 100 LAB L400.3300 Negative mg/dL Normal BILIRUBIN URINE Negative LAB L400.3400 Negative mg/dl Normal KETONE UR Negative LAB L400.3465 1.002-1.030 Normal SP.GR. DIPSTX 1.010 LAB L400.3550 5.0 - 8.0 pH UR Normal 6.0 LAB L400.3600 Negative mg/dl PROT Normal DIPSTX Negative LAB L400.3700 Normal mg/dl Normal UROBILI Normal LAB L400.3750 Negative Normal NITRITE UR Negative LAB L400.3780 Negative /ul High 10 OCCULT BLOOD-UR LAB L400.3800 Negative /ul High LEUK ESTERASE 500 LAB L400.4050 0-5 /hpf WBC Normal 25-50 SEEN LAB L400.4100 0-5 /hpf Normal RBC-UA 0-5 SEEN LAB L400.4150 0-5 /hpf SQUAM 0 Normal EPI SEEN LAB L400.4300 None Seen /hpf 0 Normal BACTERIA SEEN LAB L400.4350 <or=2+ /hpf 0 Normal MUCUS, URINE SEEN LAB L400.5200 None Seen /hpf Normal YEAST-URINE RARE Performed By: #### L400.0001 #### [facility] [address] [place], [address] ALLERGIES ALLERGIES DATE TYPE / CODE NAME / CODE REACTION SEVERITY SOURCE 05/29/2018 Drug No Known Unknown [facility] Allergy/416 Allergies/A74757 Hospital 865312(SNOM 0388(RXNORM) Repository ED CT) 12/03/2012 Environ/420 SEASONAL OTHER: SEE C [facility] 370882(SNOM ALLERGIES [facility] [place] ED CT) Repository ENCOUNTERS ENCOUNTERS ADMIT/DISCHARGE ACCOUNT NUMBER ADMITTING ENCOUNTER LOCATION SOURCE CLASS 06/04/2018/06/04/20 [id number] Ambulatory [address] Repository 05/31/2018/06/01/20 [id number] Ambulatory [address] Repository 05/29/2018 [id number] Ambulatory BMSBuilding: Greg BMS.CF.[facility] Repository 05/29/2018 [id number] Ambulatory [facility] ding:VL Repository 05/29/2018/05/29/20 [id number] Ambulatory BMSBuilding: Greg 18 BMS.[facility] Repository 05/22/2018/05/22/20 [id number] Ambulatory [address] Repository 05/18/2018/05/18/20 [id number] Emergency [address] ding:ED Repository 05/11/2018/05/11/20 [id number] Emergency ABuilding:[address] Repository 05/10/2018/05/10/20 [id number] Emergency [address] ding:ED Repository 05/09/2018/05/09/20 [id number] Ambulatory [address] Repository 04/27/2018/04/27/20 [id number] Ambulatory BMSBuilding: [place] 18 BMS.[facility] Repository 04/27/2018/04/30/20 [id number] Ambulatory [address] Repository 04/26/2018/04/26/20 [id number] Ambulatory [address] Repository 04/21/2018 [id number] [place], Ambulatory BMSBuilding: [place] F BMS.[facility] Repository 04/20/2018/04/22/20 [id number] [place], Inpatient [place] Greg 18 Mayco F [place] ding:MU9Bzey Repository : BT520Vyn: 1 04/20/2018 [id number] [place], Ambulatory BMSBuilding: [place] F BMS.[facility] Repository 04/20/2018 [id number] [place], Ambulatory BMSBuilding: [place] F BMS.[facility] Repository 04/18/2018/04/18/20 [id number] Ambulatory [address] ding:SDCRoom Repository : AC06 04/18/2018/04/18/20 [id number] Ambulatory BMSBuilding: [place] 18 BMS.CF.[facility] Repository 04/03/2018/04/03/20 [id number] Ambulatory BMSBuilding: [place] 18 BMS.[facility] Repository 03/08/2018 [id number] Ambulatory [facility] ding:LAB Repository 03/07/2018/03/07/20 [id number] Ambulatory BMSBuilding: [place] 18 BMS.[facility] Repository 03/05/2018/03/05/20 [id number] Ambulatory [address] Repository 02/21/2018/02/22/20 [id number] Ambulatory BMSBuilding: [place] 18 BMS.[facility] Repository 02/20/2018/02/22/20 [id number] Ambulatory [address] Repository 02/16/2018/02/17/20 [id number] Ambulatory [address] ding:SDC Repository 02/16/2018 [id number] Ambulatory BMSBuilding: Greg BMS.CF.[facility] Repository 02/16/2018 [id number] Ambulatory BMSBuilding: [place] [facility] Repository 02/06/2018/02/08/20 [id number] Ambulatory [address] Repository 02/06/2018 [id number] Ambulatory [facility] ding:LAB Repository 01/25/2018/01/26/20 [id number] Ambulatory BMSBuilding: [place] 18 BMS.[facility] Repository 01/17/2018/01/18/20 [id number] Ambulatory [address] ding:SDCRoom Repository : AC04 12/25/2017/12/26/19 [id number] Ambulatory [address] Repository 12/24/2017/12/25/19 [id number] Emergency [address] ding:ED Repository 12/19/2017 [id number] Ambulatory [facility] ding:CVS Repository 12/19/2017 [id number] Ambulatory BMSBuilding: Greg BMS.CF.[facility] Repository 12/13/2017/12/14/19 [id number] Ambulatory BMSBuilding: [place] 18 BMS.[facility] Repository 12/12/2017/01/13/20 [id number] Ambulatory [address] Repository 12/10/2017/12/11/19 [id number] Emergency [address] ding:ED Repository 12/07/2017/12/09/19 [id number] Ambulatory [address] Repository 11/30/2017/12/01/19 [id number] Emergency [address] ding:ED Repository 11/17/2017 [id number] Ambulatory [facility] ding:LAB.FUT Repository URE 11/10/2017/11/11/19 [id number] Ambulatory [address] Repository 11/06/2017/11/08/19 [id number] Ambulatory [address] Repository 10/26/2017 [id number] Ambulatory [facility] ding:CT Repository 09/06/2017/09/23/19 [id number] [place]ERY [place], Inpatient ABuilding:ME Evelio Smith Encounter 4SRoom: [place] [address]Bed: A [facility] Repository 09/04/2017/09/05/19 [id number] Emergency ABuilding:ERIN [facility] Repository 08/08/2017/08/08/19 [id number] Ambulatory AULTMANBuild Evelio 18 ing:VLAB [facility] Repository 08/01/2017/08/01/19 [id number] Ambulatory AULTMANBuild Evelio 18 ing:LAB [facility] Repository 07/31/2017 [id number] Ambulatory [facility] ding:LAB Repository 07/31/2017/07/31/19 [id number] Ambulatory [address] Repository 07/28/2017 [id number] [facility] 07/13/2017/07/23/19 [id number] EDEOGA, Inpatient ABuilding:[place] Evelio 18 [place] Encounter 6ERoom: Health 6701Bed: A [facility] Repository 07/12/2017/07/12/19 [id number] Emergency Greg Greg [facility] ding:ED Repository 06/17/2017/06/18/20 [id number] Emergency Greg Greg [facility] ding:ED Repository 06/16/2017/06/16/20 [id number] Ambulatory [address] Repository 06/08/2017/06/08/20 [id number] Ambulatory [address] Repository 06/06/2017/06/06/20 [id number] Emergency [place] [facility] ding:ED Repository PAYERS PAYERS ENCOUNTER GUARANTOR PAYER SUBSCRIBER SOURCE 05/29/2018 JARON D Primary JARON D [place] Insurance:MEDICAIDPo [facility]: [address] Number: [id number] City, [place] [id number] Repository [address]Bxm: 330) e Date:2018-05-29 () 05/29/2018 Secondary NOT GIVENUNK [place] Insurance:SELF PAY [facility] Number: Effective Repository Date:2018-05-29 05/29/2018 JARON D Primary JAORN D [place] Insurance:[facility]ICAIDPo [facility]: [address] Number: [id number] City, [place] [id number] Repository [address]Kig: (330) e Date:2018-05-29 () 05/29/2018 Secondary NOT GIVENUNK [place] Insurance:SELF PAY [facility] Number: Effective Repository Date:2018-05-29 05/29/2018 JARON D Primary JARON D Greg [place] Insurance:MEDICAIDPo [facility] [address] Number: [id number] City, [place] [id number] Repository [address]Keo: (667) e Date:2018-04-27 [phone] () 05/29/2018 Secondary NOT GIVENUNK [place] Insurance:SELF PAY [facility] Number: Effective Repository Date:2018-05-29 05/18/2018 JARON D Primary JARON D Greg [place] Insurance:MEDICAIDPo [place]INTIG[place]OB: [place] [address] [facility] Number: [id number] City, [place] [id number] Repository 136[address]Qpe: 330) e Date:2018-05-18 [phone] () 05/18/2018 Secondary NOT GIVENUNK Greg Insurance:SELF PAY [facility] Number: Effective Repository Date:2018-05-18 05/11/2018 JARON D KINTIGHDOB: Primary JARON D [facility] Insurance:MEDICAID KINTIGOB: [address] SUITE [facility] [id number] Repository [address] [place] [address] Number: 00 [place] [place] [address]Zbh: (774) [id number] [address] [place] [address] [phone] () e Date:2018-05-11 [place] [address]Zse: [id number] Name:SEAN ROMAN ()Tel: ([phone]) G[place] [phone], 0000000 () [place] [address]FR: 05/10/2018 JARON D Primary JARON D Greg [place] Insurance:MEDICAIDPo KINTIGHDOB: [address] Number: [id number] City, [place] [id number] Repository [address]Wbr: 330) e Date:[phone] () 05/10/2018 Secondary NOT GIVENUNK [place] Insurance:SELF PAY [facility] Number: Effective Repository Date:2018-05-10 04/27/2018 JARON D Primary JARON D [place] Insurance:MEDICAIDPo KINTIGHDOB: [address] Number: [id number] City, [place] [id number] Repository [address]Iia: (330) e Date:2018-04-20 () 04/27/2018 Secondary NOT GIVENUNK Greg Insurance:SELF PAY [facility] Number: Effective Repository Date:2018-04-27 04/21/2018 JARON D Primary JARON D Greg [place] Insurance:MEDICAIDPo KINTIGHDOB: [address] Number: [id number] City, [place] [id number] Repository [address]Tqr: (330) e Date:2018-04-20 () 04/21/2018 Secondary NOT GIVENUNK [place] Insurance:SELF PAY [facility] Number: Effective Repository Date:2018-04-21 04/20/2018 JARON D Primary JARON D Greg [place] Insurance:MEDICAIDPo [facility]: [address] Number: [id number] City, [place] [id number] Repository [address]Qls: (330) e Date:2018-04-20 () 04/20/2018 Secondary NOT GIVENUNK Greg Insurance:SELF PAY [facility] Number: Effective Repository Date:2018-04-20 04/20/2018 JARON D Primary JARON D Greg [place] Insurance:MEDICAIDPo KINTIGHDOB: [address] Number: [id number] City, [place] [id number] Repository [address]Rzx: (330) e Date:2018-04-20 () 04/20/2018 Secondary NOT GIVENUNK [place] Insurance:SELF PAY [facility] Number: Effective Repository Date:2018-04-20 04/20/2018 JARON D Primary JARON D [place] Insurance:MEDICAIDPo KINTIGHDOB: [address] Number: [id number] City, [place] [id number] Repository [address]Syc: (330) e Date:2018-04-201848 () 04/20/2018 Secondary NOT GIVENUNK [place] Insurance:SELF PAY [facility] Number: Effective Repository Date:2018-04-20 04/18/2018 JARON D Primary JARON D [place] Insurance:MEDICAIDPo KINTIGHDOB: [address] Number: [id number] City, [place] [id number] Repository [address]Naf: (330) e Date:2018-04-04 () 04/18/2018 Secondary NOT GIVENUNK [place] Insurance:SELF PAY [facility] Number: Effective Repository Date:2018-04-04 04/18/2018 JARON D Primary JARON D Greg [place] Insurance:MEDICAIDPo KINTIGHDOB: [address] Number: [id number] City, [place] [id number] Repository [address]Gja: (330) e Date:2018-04-04 () 04/18/2018 Secondary NOT GIVENUNK Greg Insurance:SELF PAY [facility] Number: Effective Repository Date:2018-04-18 04/03/2018 JARON D Primary JARON D [place] Insurance:MEDICAIDPo KINTIGHDOB: [address] Number: [id number] City, [place] [id number] Repository [address]Rrk: (330) e Date:2018-03-07 () 04/03/2018 Secondary NOT GIVENUNK Greg Insurance:SELF PAY [facility] Number: Effective Repository Date:2018-04-03 03/08/2018 JARON D Primary JARON D [place] Insurance:MEDICAIDPo KINTIGHDOB: [address] Number: [id number] City, [place] [id number] Repository [address]Eli: (330) e Date:2018-03-08 () 03/08/2018 Secondary NOT GIVENUNK Greg Insurance:SELF PAY [facility] Number: Effective Repository Date:2018-03-08 03/07/2018 JARON D Primary JARON D [place] Insurance:MEDICAIDPo KINTIGHDOB: [facility] [facility] Number: [id number] [place], [place] [id number] Repository [address]Hko: (330) e Date:2018-02-21 () 03/07/2018 Secondary NOT GIVENUNK Greg Insurance:SELF PAY [facility] Number: Effective Repository Date:2018-02-21 02/21/2018 JARON D Primary JARON D [place] Insurance:MEDICAIDPo KINTIGHDOB: [address] Number: [id number] City, [place] [id number] Repository [address]Gly: (330) e Date:2018-02-15 () 02/21/2018 Secondary NOT GIVENUNK [place] Insurance:SELF PAY [facility] Number: Effective Repository Date:2018-02-21 02/16/2018 JARON D Primary JARON D [place] Insurance:MEDICAIDPo KINTIGHDOB: [address] Number: [id number] City, [place] [id number] Repository [address]Cnf: (330) e Date:2018-02-05 () 02/16/2018 Secondary NOT GIVENUNK [place] Insurance:SELF PAY [facility] Number: Effective Repository Date:2018-02-05 02/16/2018 JARON D Primary JARON D [place] Insurance:MEDICAIDPo KINTIGHDOB: [address] Number: [id number] City, [place] [id number] Repository [address]Vpw: (330) e Date:2018-02-05 () 02/16/2018 Secondary NOT GIVENUNK Greg Insurance:SELF PAY [facility] Number: Effective Repository Date:2018-02-16 02/16/2018 JARON D Primary JARON D [place] Insurance:MEDICAIDPo KINTIGHDOB: [place] [address] [facility] Number: [id number] City, [place] [id number] Repository [address]Bvf: (330) e Date:2018-02-05 [phone] () 02/16/2018 Secondary NOT GIVENUNK [place] Insurance:SELF PAY [facility] Number: Effective Repository Date:2018-02-16 02/06/2018 JARON D Primary JARON D Greg [place] Insurance:MEDICAIDPo KINTIGHDOB: [address] Number: [id number] City, [place] [id number] Repository [address]Sgs: (330) e Date:2018-02-06 [phone] () 02/06/2018 Secondary NOT GIVENUNK [place] Insurance:SELF PAY [facility] Number: Effective Repository Date:2018-02-06 2018 JARON D Primary JARON D [place] Insurance:MEDICAIDPo KINTIGHDOB: [address] Number: [id number] [place], [place] [id number] Repository 24237Xnb: (330) e Date:2018-01-08 [phone] () 2018 Secondary NOT GIVENUNK [place] Insurance:SELF PAY [facility] Number: Effective Repository Date:2018 01/17/2018 JARON D Primary JARON D [place] Insurance:MEDICAIDPo KINTIGHDOB: [address] Number: [id number] City, [place] [id number] Repository 47771Yvn: (330) e Date:2018-01-01 [phone] () 01/17/2018 Secondary NOT GIVENUNK [place] Insurance:SELF PAY [facility] Number: Effective Repository Date:2018-01-01 12/24/2017 JARON D Primary JARON D Greg [place] Insurance:MEDICAIDPo KINTIGHDOB: [place] [id number] [facility] Number: [id number] [place], [place] [id number] Repository 34064Wzu: (330) e Date:2017-12-24 () 12/24/2017 Secondary NOT GIVENUNK [place] Insurance:SELF PAY [facility] Number: Effective Repository Date:2017-12-24 12/19/2017 JARON D Primary JARON D Greg [place] Insurance:MEDICAIDPo KINTIGHDOB: [place] [id number] [facility] Number: [id number] City, [place] [id number] Repository 62842Jus: (330) e Date:2017-12-13 () 12/19/2017 Secondary NOT GIVENUNK Greg Insurance:SELF PAY [facility] Number: Effective Repository Date:2017-12-13 12/19/2017 JARON D Primary JARON D [place] Insurance:MEDICAIDPo KINTIGHDOB: [address] Number: [id number] City, [place] [id number] Repository 35875Ubz: (330) e Date:2017-12-13 () 12/19/2017 Secondary NOT GIVENUNK Greg Insurance:SELF PAY [facility] Number: Effective Repository Date:2017-12-19 12/13/2017 JARON D Primary JARON D Greg [place] Insurance:MEDICAIDPo KINTIGHDOB: [address] Number: [id number] City, [place] [id number] Repository 63577Mor: (330) e Date:2017-12-0696 () 12/13/2017 Secondary NOT GIVENUNK Greg Insurance:SELF PAY [facility] Number: Effective Repository Date:2017-12-06 12/10/2017 JARON D Primary JARON D [place] Insurance:MEDICAIDPo KINTIGHDOB: [address] Number: [id number] City, [place] [id number] Repository 63957Ndu: (330) e Date:2017-12-10 [phone] () 12/10/2017 Secondary NOT GIVENUNK Greg Insurance:SELF PAY [facility] Number: Effective Repository Date:2017-12-10 11/30/2017 Jaron D Primary Jaron D [place] Insurance:MEDICAIDPo KintighDOB: [facility] [id number] [facility] Number: [id number] [place], [place] [id number] Repository 05903Kil: (330) e Date:2017-11-309615 () 11/30/2017 Secondary NOT GIVENUNK Greg Insurance:SELF PAY [facility] Number: Effective Repository Date:2017-11-30 11/17/2017 Jaron D Primary Jaron D [place] Insurance:MEDICAIDPo KintighDOB: [address] Number: [id number] [place], [place] [id number] Repository [address]9811Cfo: (330) e Date:2017-07-279615 () 11/17/2017 Secondary NOT GIVENUNK [place] Insurance:SELF PAY [facility] Number: Effective Repository Date:2017-07-27 10/26/2017 Jaron D Primary Jaron D Greg [place] Insurance:MEDICAIDPo KintighDOB: [place] [id number] [facility] Number: [id number] [place], [place] [id number] Repository 67554Vrv: (330) e Date:2017-10-269615 () 10/26/2017 Secondary NOT GIVENUNK Greg Insurance:SELF PAY [facility] Number: Effective Repository Date:2017-10-26 09/06/2017 JARON D KINTIGHDOB: Primary JARON D [facility] Insurance:MEDICAID KINTIGHDOB: [address]ITE [facility] [id number] Repository [address] [place] [address] Number: [address] [id number]: (330) [id number] [address] [place] [address] ()Tel: e Date:2016-12-31 - [place] [address]Vay: (WP) [id number] Name:SEAN ROMAN ()Tel: (000) [address]Brwfqrmv, 000-0000 ([place]) [place] [address]KG: 09/04/2017 JARON D KINTIGHDOB: Primary [facility] Insurance:MEDICAID KINTIGOB: [facility] [id number] Repository [address] [place] [address] Number: [address] [id number]: (330) [id number] [address] [place], [place] [address] ()Tel: e Date:2017-09-04 - [place] [address]Hvb: (WP) [id number] Name:SEAN ROMAN ()Tel: (000) [address]Grfvirev, 000-0000 ([place]) [place] [address]KO: 08/08/2017 JARON D KINTIGHDOB: Primary [facility] Insurance:MEDICAID KINTIGHDOB: [facility] [address] [facility] [id number] Repository [address] [place] [address] Number: [address] [id number]: (330) [id number] [address] [place] [address], [phone] ()Tel: e Date:2017-08-01 - [place] [address]Sml: (WP) [id number] Name:SEAN ROMAN ()Tel: (000) [address]Vrhyehvh, 000-0000 ([place]) [place] [address]YA: 08/01/2017 JARON D KINTIGHDOB: Primary [facility] Insurance:MEDICAID KINTIGHDOB: [address] SU[address] OF [facility] [id number] Repository [address] [place] [address] Number: [address] [id number]: (330 [id number] [address] [place], [place] [address] ()Tel: e Date:2017-08-01 [place] [address]Qyt: (WP) [id number] Name:SEAN ROMAN ()Tel: (000) [address]Hwqjayik, 000-0000 ([place]) [place] [address]NO: 07/31/2017 Jaron D Primary Jaron D [place] Insurance:MEDICAID KintighDOB: [address] Number: [id number] City, [place] [id number] Repository [address]60Aup: (330) e Date:2017-07-31 [facility]6789 () 07/31/2017 Secondary NOT GIVENUNK Greg Insurance:SELF PAY [facility] Number: Effective Repository Date:2017-07-31 07/28/2017 JARON D KINTIGHDOB: Primary [facility] Insurance:MEDICAID KINTIGHDOB: [address] [facility] [id number] Repository [address] [place] [address] Number: [address] [id number]: (330) [id number] [address] [place] [address] ()Tel: e Date:2017-07-28 [place] [address]Qfn: (WP) [id number] Name:SEAN ROMAN ()Tel: (000) [address]Jxgycakw, 000-0000 ([place]) [place] [address]JR: 07/13/2017 JARON D KINTIGHDOB: Primary JARON D [facility] Insurance:MEDICAID KINTIGHDOB: [address] OF [facility] [id number] Repository [address] [place] [address] Number: 00 [address] [address]Cot: 330 [id number] [address] [place] [address], [phone] ()Tel: e Date:2017-07-13 [facility] [address]Dol: () [id number] Name:SEAN ROMAN ()Tel: 000) [address]Jmnullgf, 000-0000 () [place] [address]OT: 07/12/2017 Jaron D Primary Jaron D [place] Insurance:MEDICAIDPo KintighDOB: [address] Number: [id number] [place], [place] [id number] Repository [address]Gjc: (330) e Date:2017-07-12 [phone] () 07/12/2017 Secondary NOT GIVENUNK [place] Insurance:SELF PAY [facility]: Effective Repository Date:2017-07-12 06/17/2017 Jaron D Primary Jaron D Greg [employer] Insurance:MEDICAIDPo KintighDOB: [address] Number: [id number], [place] [id number] Repository [address]Bkx: (330) e Date:2017-06-17 [phone] () 06/17/2017 Secondary NOT GIVENUNK [place] Insurance:SELF PAY [facility] Number: Effective Repository Date:2017-06-17 06/06/2017 Jaron D Primary Jaron D Greg [employer] Insurance:MEDICAIDPo KintighDOB: [address] Number: [id number], [place] [id number] Repository [address]59[address]Sxf: 330) e Date:2017-06-06 [phone] () 06/06/2017 Secondary NOT GIVENUNK [place] Insurance:SELF PAY [facility] Number: Effective Repository Date:2017-06-06
== END 2018-05-18 10:26 | disposition home or self-care (01) ==
PROVIDERS: Emergency Provider Emergency Medicine; Family Provider Internal Medicine; PCP Internal Medicine
DX: R31.9 Hematuria, unspecified (principal); E86.0 Dehydration; N39.0 Urinary tract infection, site not specified; Z96.0 Presence of urogenital implants; E11.9 Type 2 diabetes mellitus without complications; I10 Essential (primary) hypertension; F90.9 Attention-deficit hyperactivity disorder, unspecified type; F41.9 Anxiety disorder, unspecified; Z79.4 Long term (current) use of insulin; Z79.82 Long term (current) use of aspirin; Z79.899 Other long term (current) drug therapy
CPT/HCPCS: 36415; 80048; 81001; 83036; 85025; 87077; 87086; 87088; 87186; 96360; 96372; 99283; J7030

== ENCOUNTER → 2018-05-29 14:05 | Outpatient (CLI) | payer MEDICAID, SELFPAY ==
[2018-05-18 05:42] VITALS: BMI 40.0
--- NOTE | 2018-05-29 14:07 | AVDS_ITS ---
RIGHT Inflow Art = 233/137 cm/s Inflow Vol Flow =282 cc/min Prox Anast =954/568 cm/s Prox Anast Vol Wgwh=3901 cc/min Prox Zaolz=433/141 cm/s. Prox Graft Vol Flow =1040 cc/min Mid Graft =102/61.5 cm/s Mid Graft Vol Hsdm=651 cc/min Distal Graft =107/69.7 cm/s Distal Graft Vol Flow= 859 cc/min Outflow at shoulder =109/70.7 cm/s Outflow ar shoulder Vol Flow=] 647 cc/min. Interpretation Summary No evidence for right arm venous thrombosis. Volume flow throughout the fistula appears to be quite adequate to slightly high flow. No focal areas of stenosis noted. Ordering Physician: Taylor Owens PA-C Performed By: Lloyd Hoyt RVT
--- OUTSIDE RECORDS SUMMARY | 2018-07-15 19:09 | XMS RPT_ITS ---
:1980 Author Organization OHIP Support Name Relationship Address Phone TOSHIA MORSE Unavailable . + [place] [address] DANIELE, CHERISE Unavailable [address] + [address] [place] [address] [facility] Unavailable [address] + [place] [address] TOSHIA MORSE Unavailable Unavailable + [place] [address] DANIELE, CHERISE Unavailable [address] + [address] [place] [address] [facility] Unavailable [address] + [place] [address] TOSHIA MORSE Unavailable . + [place] [address] DANIELE, CHERISE Unavailable [address] + [address] [place] [address] [facility] Unavailable [address] + [place] [address] MINI TOSHIA Unavailable Unavailable + [place] [address] DANIELE, CHERISE Unavailable [address] + [address] [place] [address] [facility] Unavailable [address] + [place] [address] JOAQUÍN MORSELE Unavailable Unavailable + [place] [address] DANIELE, CHERISE Unavailable [address] + [address] [place] [address] [facility] Unavailable [address] + [place] [address] KINTIGH, TOSHIA Unavailable . + [place] [address] DANIELE, CHERISE Unavailable [address] + [address] [place] [address] [facility] Unavailable [address] + [place] [address] KINTIGH, TOSHIA Unavailable Unavailable + [place] [address] DANIELE, CHERISE Unavailable [address] + [address] [place] [address] [facility] Unavailable [address] + [place] [address] MONROEMISAEL MENCHACA Unavailable Unavailable + KINTIGH, TOSHIA Unavailable . + [place] [address] DANIELE, CHERISE Unavailable [address] + [address] [place] [address] [facility] Unavailable [address] + [place] [address] KINTIGH, TOSHIA Unavailable . + [place] [address] DANIELE, CHERISE Unavailable [address] + [address] [place] [address] [facility] Unavailable [address] + [place] [address] KINTIGH, TOSHIA Unavailable Unavailable + [place] [address] DANIELE, CHERISE Unavailable [address] + [address] [place] [address] [facility] Unavailable [address] + [place] [address] KINTIGH, TOSHIA Unavailable Unavailable + [place] [address] DANIELE, CHERISE Unavailable [address] + [address] [place] [address] [facility] Unavailable [address] + [place] [address] KINTIGH, TOSHIA Unavailable . + [place] [address] DANIELE, CHERISE Unavailable [address] + [address] [place] [address] [facility] Unavailable [address] + [place] [address] KINTIGH, TOSHIA Unavailable Unavailable + [place] [address] DANIELE, CHERISE Unavailable [address] + [address] [place] [address] [facility] Unavailable [address] + [place] [address] KINTIGH, TOSHIA Unavailable Unavailable + [place] [address] DANIELE, CHERISE Unavailable [address] + [address] [place] [address] [facility] Unavailable [address] + [place] [address] KINTIGH, TOSHIA Unavailable . + [place] [address] DANIELE, CHERISE Unavailable [address] + [address] [place] [address] [facility] Unavailable [address] + [place] [address] KINTIGH, TOSHIA Unavailable . + [place] [address] DANIELE, CHERISE Unavailable [address] + [address] [place] [address] [facility] Unavailable [address] + [place] [address] KINTIGH, TOSHIA Unavailable . + [place] [address] DANIELE, CHERISE Unavailable [address] + [address] [place] [address] [facility] Unavailable [address] + [place] [address] KINTIGH, TOSHIA Unavailable . + [place] [address] DANIELE, CHERISE Unavailable [address] + [address] [place] [address] [facility] Unavailable [address] + [place] [address] KINTIGH, TOSHIA Unavailable . + [place] [address] DANIELE, CHERISE Unavailable [address] + [address] [place] [address] [facility] Unavailable [address] + [place] [address] KINTIGH, TOSHIA Unavailable Unavailable + [place] [address] DANIELE, CHERISE Unavailable [address] + [address] [place] [address] [facility] Unavailable [address] + [place] [address] KINTIGH, TOSHIA Unavailable Unavailable + [place] [address] DANIELE, CHERISE Unavailable [address] + [address] [place] [address] [facility] Unavailable [address] + [place] [address] KINTIGH, TOSHIA Unavailable Unavailable + [place] [address] DANIELE, CHERISE Unavailable [address] + [address] [place] [address] [facility] Unavailable [address] + [place] [address] KINTIGH, TOSHIA Unavailable Unavailable + [place] [address] DANIELE, CHERISE Unavailable [address] + [address] [place] [address] [facility] Unavailable [address] + [place] [address] KINTIGH, TOSHIA Unavailable . + [place] [address] DANIELE, CHERISE Unavailable [address] + [address] [place] [address] [facility] Unavailable [address] + [place] [address] KINTIGH, TOSHIA Unavailable Unavailable + [place] [address] DANIELE, CHERISE Unavailable [address] + [address] [place] [address] [facility] Unavailable [address] + [place] [address] KINTIGH, TOSHIA Unavailable Unavailable + [place] [address] DANIELE, CHERISE Unavailable [address] + [address] [place] [address] [facility] Unavailable [address] + [place] [address] KINTIGH, TOSHIA Unavailable Unavailable + [place] [address] DANIELE, CHERISE Unavailable [address] + [address] [place] [address] [facility] Unavailable [address] + [place] [address] KINTIGH, TOSHIA Unavailable Unavailable + [place] [address] DANIELE, CHERISE Unavailable [address] + [address] [place] [address] [facility] Unavailable [address] + [place] [address] KINTIGH, TOSHIA Unavailable . + [place] [address] DANIELE, CHERISE Unavailable [address] + [address] [place] [address] [facility] Unavailable [address] + [place] [address] KINTIGH, TOSHIA Unavailable . + [place] [address] [facility] Unavailable [address] + [address] [place] [address] [facility] Unavailable [address] + [place] [address] TOSHIA MORSE Unavailable Unavailable [phone] [place] [address] [facility] Unavailable [address] [phone] [place] [address] [facility] Unavailable [address] + [place] [address] TOSHIA MORSE Unavailable Unavailable [phone] [place] [address] [facility] Unavailable [address] [phone] [place] [address] [facility] Unavailable [address] + [place] [address] TOSHIA MORSE Unavailable Unavailable [phone] [place] [address] [facility] Unavailable [address] [phone] [address] [place] [address] [facility] Unavailable [address] + [place] [address] TINIC, GALE Unavailable Unavailable + TINIC, GALE Unavailable Unavailable + TINIC, GALE Unavailable Unavailable + TINIC, GALE Unavailable Unavailable + MINI OTSHIA Unavailable Unavailable [phone] [place] [address] [facility] Unavailable [address] [phone] [place] [address] [facility] Unavailable [address] + [place] [address] TINIC, GALE Unavailable Unavailable + [facility] Unavailable [address] + [place] [address] TINIC, GALE Unavailable Unavailable + TOSHIA MORSE Unavailable Unavailable [phone] [place] [address] [facility] Unavailable [address] [phone] [address] [place] [address] [facility] Unavailable [address] + [place] [address] Care Team Providers Name Role Phone FREDDY ALICEA Admitting Unavailable EDUARDO NY., DR. ESCAMILLA Primary Care Unavailable KRISTOFER WEBB Attending Unavailable LEROY NY, RANDY Consulting Unavailable ADITI SPANN MD Consulting Unavailable BERNICE NY., DR. CAROLANN Lui Consulting Unavailable WILDA POLLARD MD Consulting Unavailable ONDINA ERICKSON MD Consulting Unavailable SILVER NY, NADER Mix Consulting Unavailable JOSE JUAN LOPEZ MD Consulting Unavailable EDUARDO NY., DR. ESCAMILLA Consulting Unavailable ONDINA ERICKSON MD Attending Dwayne CLARK MD., DR. ESCAMILLA Referring Unavailable EDUARDO NY., DR. ESCAMILLA Primary Care Unavailable ONDINA ERICKSON MD Attending Dwayne CLARK MD., DR. ESCAMILLA Primary Care Unavailable ONDINA ERICKSON MD Attending Unavailable EDUARDO NY., DR. ESCAMILLA Primary Care Unavailable EDUARDO NY., DR. ESCAMILLA Primary Care Unavailable JENIFER BRANTLEY, DR. KELVIN Ferrell Attending Dwayne CLARK MD., DR. ESCAMILLA Referring Unavailable EDUARDO NY., DR. ESCAMILLA Primary Care Unavailable GUILLE GABREIL MD Admitting Unavailable NIVIA ENGLAND MD Attending Unavailable LETY STOUT MD Consulting Unavailable SILVER NY, NADER Mix Consulting Unavailable HUGH YI MD Consulting Unavailable TALYA MARTINEZ MD Consulting Unavailable SELVIN BALLARD MD Consulting Unavailable TERE ESPARZA DO Consulting Unavailable SRINIVASA LUCERO MD Consulting Unavailable CASSY GAYTAN Consulting Unavailable UMU BRANTLEY, TALYA Dasilva Consulting Unavailable ADELSO CLARKE MD Consulting Unavailable EDUARDO NY., DR. ESCAMILLA Primary Care Unavailable CHRISTA GAN MD Attending Unavailable EDUARDO SAENZ, DR. ESCAMILLA Referring Unavailable CORINNE MORAN (WATER CHASER) Attending Unavailable GEORGI LEE (INTELLIGENCE APPLICATIONS) Attending Unavailable IGNACIO OLMEDO Referring Unavailable RONN GALLO Attending Unavailable LUIS FELICIANO Attending Unavailable KELBY HUDDLESTON Attending Unavailable GEORGI LEE (INTELLIGENCE APPLICATIONS) Attending Unavailable LUIS FELICIANO Attending Unavailable BRADENLUIS Referring Unavailable TALAMPAS, FRANCINE D Referring Unavailable MARK GUNN (WATER CHASER) Attending Unavailable GANTA, RONN Referring Unavailable TALAMPAS, FRANCINE D Attending Unavailable GEORGI LEE (INTELLIGENCE APPLICATIONS) Attending Unavailable NAYE NUÑEZ (SUPERVISOR [employer]EL [employer]) Attending Unavailable Talampas, Francine Primary Care Unavailable Marlon Jarrett Attending Unavailable Christian, Jayaprakash Attending Unavailable Talampas, Francine Primary Care Unavailable Christian, Jayaprakash Referring Unavailable Talampas, Francine Attending Unavailable Talampas, Francine Referring Unavailable Talampas, Francine Primary Care Unavailable Jose Juan Lopez Attending Unavailable JorgeJose Juan Referring Unavailable Talampas, Francine Primary Care Unavailable Claudia Feliz Consulting Unavailable Talampas, Francine Primary Care Unavailable Radha Velasco Attending Unavailable Talampas, Francine Primary Care Unavailable Marlon Jarrett Attending Unavailable Taylor Owens PA-C Attending Unavailable Talampas, Francine Referring Unavailable Talampas, Francine Primary Care Unavailable Eribubernard Hugh Attending Unavailable Cebul, Hugh Referring Unavailable Talampas, Francine Primary Care Unavailable Talampas, Francine Primary Care Unavailable Harshad Patel Attending Unavailable Jose Juan Lopez Attending Unavailable JorgeJose Juan Referring Unavailable Talampas, Francine Primary Care Unavailable Cebul Hugh Attending Unavailable Cebul Hugh Attending Unavailable Talampas, Francine Referring Unavailable Talampas, Francine Primary Care Unavailable Christian, Jayaprakash Attending Unavailable Christian, Jayaprakash Referring Unavailable Talampas, Francine Primary Care Unavailable Cebul Hugh Attending Unavailable Cebul, Hugh Referring Unavailable Talampas, Francine Primary Care Unavailable Cebul Hugh Attending Unavailable Cebul, Hugh Referring Unavailable Talampas, Francine Primary Care Unavailable Eribul, Hugh Consulting Unavailable Graciela HODGES Taylor Attending Unavailable Talampas, Francine Referring Unavailable Talampas, Francine Primary Care Unavailable Owens PA-C, Tayolr Attending Unavailable Talampas, Francine Referring Unavailable Talampas, Francine Primary Care Unavailable Christian, Jayaprakash Attending Unavailable Christian, Jayaprakash Referring Unavailable Talampas, Francine Primary Care Unavailable Manish Cuello Attending Unavailable EirbuHugh wagner Referring Unavailable Owens PA-C, Taylor Attending Unavailable Talampas, Franicne Referring Unavailable CebuHugh awgner Attending Unavailable Cebul Hugh Referring Unavailable Talampas, Francine Primary Care Unavailable Talampas, Francine Primary Care Unavailable Kotsonis, Mayco F Admitting Unavailable Christian, Jayaprakash Consulting Unavailable Yassine Baer Attending Unavailable Jose Juan Lopez Consulting Unavailable Kotsonis, Mayco F Admitting Unavailable Talampas, Francine Primary Care Unavailable Kotsonis Mayco F Consulting Unavailable Kotsonis Mayco F Attending Unavailable Kotsonis, Mayco F Admitting Unavailable Yassine Baer Attending Unavailable Talampas, Francine Primary Care Unavailable Christian, Jayaprakash Consulting Unavailable Buffy Yassine Consulting Unavailable Kotsonis, Mayco F Admitting Unavailable Yassine Baer Attending Unavailable Talampas, Francine Primary Care Unavailable Christian, Jayaprakash Consulting Unavailable Jose Juan Lopez Consulting Unavailable Buffy Yassine Consulting Unavailable Hugh Abreu Attending Unavailable Talampas, Francine Referring Unavailable Talampas, Francine Primary Care Unavailable Gerry Rios Attending Unavailable Hugh Abreu Attending Unavailable Talampas, Francine Primary Care Unavailable Jason Bal Attending Unavailable Owens PA-C, Taylor Attending Unavailable Talampas, Francine Referring Unavailable Owens PA-C, Taylor Attending Unavailable Owens PA-C, Taylor Referring Unavailable Talampas, Francine Primary Care Unavailable Hugh Abreu Attending Unavailable Owens PA-C, Taylor Referring Unavailable Talampas, Francine Primary Care Unavailable Owens PA-C, Taylor Consulting Unavailable Hugh Abreu Attending Unavailable Talampas, Francine Referring Unavailable Hugh Abreu Attending Unavailable Eribubernard Hugh Referring Unavailable Talampas, Francine Primary Care Unavailable Christian, Jayaprakash Consulting Unavailable ELIZABETH PELAYO Consulting Unavailable Taylor Owens PA-C Attending Unavailable Farncine Clark Referring Unavailable PROBLEMS PROBLEMS DATE TYPE CONDITION / CODE ATTENDING STATUS SOURCE 05/29/2018 Unknown R52 - Pain, Hugh Abreu Active [place] unspecified / Community R52(ICD-10) Hospital Repository 05/09/2018 Active Type 1 diabetes NA Active [facility] mellitus with other [facility] Main diabetic kidney [place] complication / Repository E10.29(ICD-10) 05/09/2018 Active Other general NA Active [facility] symptoms and signs / Clinic Main R68.89(ICD-10) [place] Repository 05/09/2018 Active Hyperlipidemia, NA Active [place] unspecified / Clinic Main E78.5(ICD-10) [place] Repository 04/26/2018 Active Anemia, unspecified NA Active [facility] / D64.9(ICD-10) Clinic Main [place] Repository 04/27/2018 Unknown R31.0 - Gross Yassine Baer Active [facility] hematuria / Community R31.0(ICD-10) Hospital Repository 04/18/2018 Unknown G89.18 - Other acute CebuHugh wagner Active [facility] postprocedural pain Community / G89.18(ICD-10) Hospital Repository 05/17/2018 Unknown Z45.2 - Encounter LoisHugh Active [place] for adjustment and Community management of Hospital vascular access Repository device / Z45.2(ICD-10) 03/08/2018 Unknown N18.4 - Chronic Christian, Active [facility] kidney disease, [facility] stage 4 (severe) / Hospital N18.4(ICD-10) Repository 03/16/2018 Unknown Z01.810 - Encounter Manish Cuello Active [facility] for preprocedural [facility] cardiovascular Hospital examination / Repository Z01.810(ICD-10) 02/06/2018 Unknown E87.5 - Hyperkalemia Christian, Active [facility] / E87.5(ICD-10) [facility] Repository 01/12/2018 Unknown N18.5 - Chronic CebuHugh wagner Active [place] kidney disease, [facility] stage 5 / Hospital N18.5(ICD-10) Repository 08/01/2017 Active Acute embolism and NA Active [facility] thrombosis of left [facility] axillary vein / [place] I82.A12(ICD-10) Repository 12/15/2015 Active Chronic kidney NA Active [facility] disease, stage 4 Clinic [facility] (severe) / [place] N18.4(ICD-10) Repository 11/10/2017 Active Type 1 diabetes NA Active [facility] mellitus with other [facility] specified [place] complication / Repository E10.69(ICD-10) 11/10/2017 Active Type 1 diabetes NA Active [facility] mellitus with [facility] hyperglycemia / [place] E10.65(ICD-10) Repository 11/10/2017 Active Other senior care NA Active [facility] (current) drug [facility] therapy / [place] Z79.899(ICD-10) Repository 11/10/2017 Active Type 1 diabetes NA Active [facility] mellitus with [facility] diabetic chronic [place] kidney disease / Repository E10.22(ICD-10) 11/10/2017 Active Chronic kidney NA Active [facility] disease, stage 3 Clinic [facility] (moderate) / [place] N18.3(ICD-10) Repository 11/10/2017 Active Hydronephrosis with NA Active [facility] ureteral stricture, [facility] not elsewhere [place] classified / Repository N13.1(ICD-10) 11/10/2017 Active Unspecified NA Active [facility] hydronephrosis / [facility] N13.30(ICD-10) [place] Repository 11/10/2017 Active Acute kidney NA Active [facility] failure, unspecified Clinic Main / N17.9(ICD-10) [place] Repository 11/10/2017 Active Sepsis due to NA Active [facility] Serratia / Clinic Main A41.53(ICD-10) [facility] Repository 11/10/2017 Active Severe sepsis NA Active [facility] without septic shock Clinic [facility] / R65.20(ICD-10) [place] Repository 11/10/2017 Active Urinary tract NA Active [facility] infection, site not [facility] specified / [place] N39.0(ICD-10) Repository 11/10/2017 Active Hematuria, NA Active [facility] unspecified / [facility] R31.9(ICD-10) [facility] Repository 11/10/2017 Active Pneumonia, NA Active [facility] unspecified organism [facility] / J18.9(ICD-10) [place] Repository 07/31/2017 Active Unknown / OLDER, CORINNE (WATER CHASER) Active [facility] UNK(Unknown) Clinic Main [place] Repository PROCEDURES PROCEDURES No Procedure Records FoundRESULTS RESULTS SURGERY VISIT REPORT Observed: 06/28/2018 Status: F Source: [place] 9:35 AM [facility] REPOSITORY [facility] [address] [place] [address]. [address] [place] [address] OFFICE VISIT Date of Service: 06/28/18 MR#: [id number] Acct: [id number] Name: JARON MORSE Rep #: [id number] : 1980 Provider: Taylor Owens PA-C Age/Sex: 38/M Location: [facility] Status: Signed Intake Intake Visit Reasons: f/u fistula Chief Complaint: pilonidal draining Log Deckman Required: No Is patient in pain?: No Allergies No Known Allergies Allergy (Verified 06/28/18 08:46) Medications Ascorbic Acid [Vitamin C] 1,000 mg PO DAILY 02/21/15 [History Confirmed 06/28/18] Fluoxetine [Prozac] 20 mg PO DAILY 02/21/15 [History Confirmed 06/28/18] Loratadine [Claritin] 10 mg PO DAILY 07/08/15 [History Confirmed 06/28/18] Melatonin 3 mg PO QHS 12/09/15 [History Confirmed 06/28/18] Insulin Lispro [Humalog Kwikpen] 0 unit SQ TIDCM 08/29/16 [History Confirmed 06/28/18] Sennosides [Senna] 8.6 mg PO BID 12/29/16 [History Confirmed 06/28/18] Insulin Lispro [Humalog] 8 unit SQ BID 12/24/17 [History Confirmed 06/28/18] Cholecalciferol (Vitamin D3) [Vitamin D3] 5,000 unit PO DAILY 01/09/18 [History Confirmed 06/28/18] Insulin Glargine [Lantus SoloStar Pen] 10 units SC QHS 02/09/18 [History Confirmed 06/28/18] Polyethylene Glycol 3350 [Miralax] 17 gm PO 0800,1600 02/09/18 [History Confirmed 06/28/18] Albuterol Inhaler [Ventolin Hfa] 2 puff INHALATION Q4H PRN PRN 04/20/18 [History Confirmed 06/28/18] Ammonium Lactate [Amlactin] 1 applic TP BID 04/20/18 [History Confirmed 06/28/18] Aspirin E.C. [Ecotrin] 81 mg PO DAILY@0800 04/20/18 [History Confirmed 06/28/18] Atorvastatin Calcium 5 mg PO QHS 04/20/18 [History Confirmed 06/28/18] Citric AC/Gluconolact/Mag Carb [Renacidin Irrigation Solution] 30 ml IR 0800,1600,199904/20/18 [History Confirmed 06/28/18] Fluoxetine [Prozac] 10 mg PO DAILY 04/20/18 [History Confirmed 06/28/18] Fluticasone 0.05% [Flonase Nasal [place]] 2 spray NASAL DAILY 04/20/18 [History Confirmed 06/28/18] Insulin Glargine,Hum.rec.anlog [Lantus] 14 unit SQ DAILY 04/20/18 [History Confirmed 06/28/18] Insulin Lispro [Humalog] 4 unit SQ 1100 04/20/18 [History Confirmed 06/28/18] Ketoconazole 1 applic TP UD 04/20/18 [History Confirmed 06/28/18] Metoprolol Tartrate 12.5 mg PO BID 04/20/18 [History Confirmed 06/28/18] Olopatadine HCl [Pataday] 1 drp EACHEYE DAILY 04/20/18 [History Confirmed 06/28/18] Oxybutynin [Ditropan] 5 mg PO DAILY PRN 04/20/18 [History Confirmed 06/28/18] Pantoprazole Sodium [Protonix] 40 mg PO DAILY 04/20/18 [History Confirmed 06/28/18] Polyethylene Glycol 3350 [Miralax] 17 gm PO QHS PRN 04/20/18 [History Confirmed 06/28/18] Quetiapine Fumarate [Seroquel] 100 mg PO 1700 04/20/18 [History Confirmed 06/28/18] Quetiapine Fumarate [Seroquel] 200 mg PO 0800,2000 04/20/18 [History Confirmed 06/28/18] Ferrous Sulfate 2 tab PO DAILY 05/10/18 [History Confirmed 06/28/18] Smz/Tmp Ds [Bactrim Ds] 1 tab PO BID #14 tab 05/10/18 [Rx Confirmed 06/28/18] Subjective Details: Patient is a 38 y/o male I am following for chronic renal failure. Dr. Abreu performed a right upper extremity carbon dioxide fistulogram with 5 x 2 Powerflex anastomotic angioplasty and 7 x 80 mm ever cross venous angioplasty on 06/22/18. Patient tolerated the procedure well. Findings suggested moderate arterial venous anastomosis and mild diffuse proximal fistula venous stenosis. Patient notes continued pain similar to the pain prior to the fistulogram. We have ruled out any upper extremity blood clots. Patient will be moving to an extended care facility in [place] next Monday. Objective Details: Right forearm AV fistula- good pulse, bruit and thrill. Two sutures were removed. Steri-strips were placed. Assessment AND Plan Problems 1. Stage 5 chronic kidney disease N18.5 Plan - Continue hand exercises - Follow-up in [address] Abreu Coding Level of Care Code Global Post Op Diagnoses Stage 5 chronic kidney disease N18.5 06/28/18 0935 <Electronically signed by Taylor Owens PA-C> Date Taylor Owens PA-C Cosigner Signature: Date (if applicable) CC: Francine Clark MD PROGRESS Observed: 06/27/2018 Status: COMPLETED Source: [place] 3:40 PM [facility] [place] REPOSITORY HNO ID: [id number] Author: Roger Valdez) Dusty Service: (none) Author Type: Nurse Practitioner Type: Progress Notes Filed: 06/27/2018 3:58 PM Note Text: Subjective HPI Runny nose, cough, and shortness of breath with coughing for3- 4 days. Review of Systems Constitutional: Negative for fever. HENT: Positive for congestion. Negative for ear pain and sore throat. Respiratory: Positive for cough, sputum production and shortness of breath. Musculoskeletal: Negative. Neurological: Negative. All other systems reviewed and are negative. Objective Physical Exam Constitutional: He is oriented to person, place, and time and well-developed, well-nourished, and in no distress. HENT: Mouth/Throat: Oropharynx is clear and moist. Eyes: Conjunctivae are normal. Neck: Normal range of motion. Cardiovascular: Normal rate, regular rhythm and normal heart sounds. Pulmonary/Chest: Effort normal and breath sounds normal. Musculoskeletal: Normal range of motion. Neurological: He is alert and oriented to person, place, and time. Gait normal. GCS score is 15. Skin: Skin is warm and dry. Psychiatric: Mood, memory, affect and judgment normal. Nursing note and vitals reviewed. BP 128/72 Pulse 88 Temp 36.1 ?C (96.9 ?F) (Tympanic) Resp 16 Wt 107.5 kg (237 lb) SpO2 97% BMI 40.05 kg/m? .Patient presents with: Chest Congestion: cough x 6 days PAST MEDICAL HISTORY Diagnosis Date - Acute [...] MILD 02/07/2005 - Presence of suprapubic catheter ([facility]) Dr. Frias - Retention of urine, unspecified 08/20/2007 - Type I (juvenile type) diabetes mellitus without mention of complication, not stated as uncontrolled 02/04/2005 Dr. lOmedo PAST SURGICAL HISTORY Procedure Laterality Date - [...] SUPRAPUBIC CATHETER ALLERGIES Seasonal Allergies MEDICATIONS insulin lispro (HUMALOG KWIKPEN INSULIN) 100 unit/mL inpn Inject 8 units breakfast, 5 units lunch, 10 units dinner plus scale; up to 60 units daily nystatin (MYCOSTATIN) cream Apply 1 application to affected area twice daily. apply to juana cleft rash until rash is gone then one more week Sodium Chloride (MESALT) 0.75 X 39 bndg Apply 1 application to affected area once daily. lightly pack / insert into wound area at coccyx with 2-3 wick enternally, change daily. Gauze Bandage 3 X 3 bndg Apply 1 application to affected area once daily. pantoprazole DR (PROTONIX) 40 mg tablet TAKE 1 TABLET BY MOUTH ONCE DAILY 1/2 HR BEFORE BREAKFAST glucagon (GLUCAGON EMERGENCY KIT, HUMAN,) 1 mg solr INJECT 1MG INTRAMUSCULARLY IF UNCONSCIOUS, UNABLE TO FOLLOW SIMPLE INSTRUCTIONS OR SEIZURES TIMES 1 DOSE glucose 4 gram chewable tablet TAKE 4 TABLETS BY MOUTH NEEDED FOR LOW BLOOD SUGAR BELOW 70 insulin needles, DISPOSABLE, (ULTICARE PEN NEEDLE) 31 gauge x 5/16 ndle Use to inject insulin 5 times daily. aspirin, enteric coated (ASPIRIN, ENTERIC COATED) 81 mg EC tablet TAKE (1) TABLET BY MOUTH DAILY IN THE MORNING. FLUoxetine (PROZAC) 20 mg capsule Take (1) capsule by mouth daily. Give with 10 mg capsule for 30 mg total. FLUoxetine (PROZAC) 10 mg capsule Take (1) capsule by mouth daily. Give with 20 mg capsule for 30 mg total. fluticasone (FLONASE) 50 mcg/actuation nasal spray USE 2 SPRAYS IN EACH NOSTRIL ONCE DAILY. RINSE MOUTH AFTER USE. insulin glargine (LANTUS SOLOSTAR U-100 INSULIN) 100 unit/mL (3 mL) inpn 14 units in the AM and 10 units at HS loratadine (CLARITIN) 10 mg tablet TAKE (1) TABLET BY MOUTH ONCE DAILY. olopatadine (PAZEO) 0.7 % drop Use 1 Drop in eyes once daily. QUEtiapine (SEROQUEL) 100 mg tablet TAKE 1 TABLET BY MOUTH ONCE DAILY AT 5 PM QUEtiapine (SEROQUEL) 200 mg tablet TAKE (1) TABLET BY MOUTH TWICE A DAY. 8am and 8pm. cholecalciferol (VITAMIN D3) 5,000 unit tab TAKE (1) TABLET BY MOUTH ONCE DAILY. Ascorbic Acid (VITAMIN C) 1,000 mg tablet TAKE (1) TABLET BY MOUTH ONCE DAILY. ammonium lactate (LAC-HYDRIN) 12 % lotion APPLY TO AFFECTED AREAS TWICE DAILY. APPLY TO FEET AND LOWER LEGS ferrous sulfate 325 mg (65 mg iron) tablet Take 1 tablet by mouth twice daily with meals. metoprolol tartrate, short acting, (LOPRESSOR) 25 mg tablet TAKE (1/2) TABLET BY MOUTH TWICE DAILY. polyethylene glycol 3350 (MIRALAX, GLYCOLAX) 17 gram/dose powder MIX 1 CAPFUL (17 GMS) IN 8 OZ OF WATER 2 TIMES DAILY. MIX 1 CAPFUL (17GRAMS) IN 8 OUNCES OF WATER AT 8PM A 3RD DOSE IF NO BM BY 8PM senna (SENNA) 8.6 mg tab TAKE (1) TABLET BY MOUTH TWICE A DAY. citric qukg-rnlmrelbkum-uck carb (RENACIDIN) 1980.6 mg-59.4 mg-980.4mg/30mL irrigation USE 30ML INTRAVESICALRY VIA URINARY CATHETER 3 TIMES DAILY CLAMP 30MIN THEN DRAIN atorvastatin (LIPITOR) 10 mg tablet TAKE ONE-HALF (1/2) TABLET AT BEDTIME. diclofenac sodium (VOLTAREN) 1 % topical gel Apply 2 g to affected area four times daily. melatonin 3 mg tablet Take 1 tablet by mouth daily at bedtime. oxybutynin (DITROPAN) 5 mg tablet Take 1 tablet by mouth as needed (once daily as needed for bladder spasms). (Lower abdomen pain/stomach/Testicular pain) acetaminophen (TYLENOL ARTHRITIS PAIN) 650 mg CR tablet Take 1 tablet by mouth every 8 hours as needed. aluminum-magnesium hydroxide-simethicone (RULOX) 200-200-20 mg/5 mL suspension Take 30 mL by mouth every 6 hours as needed. albuterol HFA (PROVENTIL HFA, VENTOLIN HFA) 90 mcg/actuation inhaler Inhale 2 Puffs as instructed every 4 hours as needed for Wheezing/Shortness of Breath. ketoconazole (NIZORAL) 2 % shampoo APPLY LATHER TO AFFECTED SKIN ON FACE AND RINSE OFF AFTER 2-5 MIN. USE DAILY NEEDED COMPOUNDED PRESCRIPTION Leg cath secure device. (Z92.89) Chronic indwelling Franco catheter blood sugar diagnostic (BLOOD GLUCOSE TEST) test strip Test blood sugar(s) 8 times daily. Dx: Type 1 DM - Uncontrolled E10.69 Insulin: Yes Lancets lancets Test blood sugar(s) 8 times daily. Dx: Type 2 DM - Uncontrolled E11.65 Insulin: Yes senna (SENNA) 8.6 mg tab Take 8.6 mg by mouth twice daily. carbamide peroxide (DEBROX) 6.5 % otic solution Use 5 Drops in both ears twice daily. for 5 days then discontinue IN-ACID GAS RELIEF 80 mg chewable tablet CHEW 1 TABLET BY MOUTH WITH MEALS AND AT BEDTIME senna (SENNA LAX) 8.6 mg tab Take 1 tablet by mouth twice daily. ammonium lactate (LAC-HYDRIN) 12 % cream Apply 1 application to affected area twice daily. COMPOUNDED PRESCRIPTION Please provide [facility] glucocard test strips to check blood sugar four to six Times a day docusate sodium (COLACE) 100 mg capsule Take 1 capsule by mouth twice daily as needed for Constipation. benzonatate (TESSALON PERLE) 100 mg capsule Take 1 capsule by mouth three times daily as needed for Cough. lidocaine (LIDODERM) 5 % Apply 1 Patch as directed every 24 hours. Remove old patch prior to placing new patch. Location: right shoulder Dextromethorphan-guaiFENesin (ROBITUSSIN DM) 10-200 mg/5 mL liqd Take 5-10 mL by mouth every 6 hours as needed. for cough benzonatate (TESSALON PERLES) 100 mg capsule Take 2 capsules by mouth three times daily as needed. ofloxacin (FLOXIN) 0.3 % otic solution Use 5 Drops in the right ear twice daily. glucagon, human recombinant, (GLUCAGON EMERGENCY KIT, HUMAN,) 1 mg injection Inject 1 mg intravenously one time only for 1 dose. bisacodyl (LAXATIVE, BISACODYL,) 10 mg supp 1 Suppository by RECTAL route once daily as needed. for constipation FAMILY HISTORY Problem Relation Age of Onset - other (unknown) Other - Diabetes Father Diabetic, unsure of which type, did not want to provide additional FH details. Social History Substance Use Topics - Smoking status: Never Smoker - Smokeless tobacco: Never Used - Alcohol use No ASSESSMENT/PLAN: 1. Viral illness - ICD9: 079.99, ICD10: B34.9 - Discussed viral etiology and rationale for treatment. - Symptomatic treatment with prn analgesia - Supportive care with fluids and rest Use of vics vaporub for nasal congestion. - BENZONATATE 100 MG CAPSULE Roger Diego APRN.CNP Prescription instructions reviewed with patient as applicable. Patient advised if symptoms do not improve or if symptoms worsen sooner, to contact the office for further evaluation by either myself or their primary care physician. Potential red flag symptoms discussed with the patient. Reviewed appropriate action plan to take if red flag symptoms occur. Patient agreeable to treatment plan. Roger Diego APRN.CNP CNOV Observed: 06/27/2018 Status: COMPLETED Source: [place] 3:30 PM [facility] REPOSITORY Office Visit ([facility]) JARON MORSE ([id number]) 1980 M Date Time Provider Department 06/27/18 3:30 PM [facility]IE[facility]) [facility] During your visit today, we recorded the following information about you: Temperature Pulse Respiration Blood pressure 96.9 degrees 88/minute 16/minute 128/72 Weight 107.5 kg Roger Diego APRN.CNP 06/27/2018 3:58 PM Signed Subjective HPI Runny nose, cough, and shortness of breath with coughing for3- 4 days. Review of Systems Constitutional: Negative for fever. HENT: Positive for congestion. Negative for ear pain and sore throat. Respiratory: Positive for cough, sputum production and shortness of breath. Musculoskeletal: Negative. Neurological: Negative. All other systems reviewed and are negative. Objective Physical Exam Constitutional: He is oriented to person, place, and time and well-developed, well-nourished, and in no distress. HENT: Mouth/Throat: Oropharynx is clear and moist. Eyes: Conjunctivae are normal. Neck: Normal range of motion. Cardiovascular: Normal rate, regular rhythm and normal heart sounds. Pulmonary/Chest: Effort normal and breath sounds normal. Musculoskeletal: Normal range of motion. Neurological: He is alert and oriented to person, place, and time. Gait normal. GCS score is 15. Skin: Skin is warm and dry. Psychiatric: Mood, memory, affect and judgment normal. Nursing note and vitals reviewed. BP 128/72 Pulse 88 Temp 36.1 ?C (96.9 ?F) (Tympanic) Resp 16 Wt 107.5 kg (237 lb) SpO2 97% BMI 40.05 kg/m? .Patient presents with: Chest Congestion: cough x 6 days PAST MEDICAL HISTORY Diagnosis Date - Acute deep vein thrombosis (DVT) of right upper extremity ([facility]) 03/19/15 Diagnosed during hospital admission; coumadin started [...] MILD 02/07/2005 - Presence of suprapubic catheter ([facility]) Dr. Frias - Retention of urine, unspecified [...] SUPRAPUBIC CATHETER ALLERGIES Seasonal Allergies MEDICATIONS insulin lispro (HUMALOG KWIKPEN INSULIN) 100 unit/mL inpn Inject 8 units breakfast, 5 units lunch, 10 units dinner plus scale; up to 60 units daily nystatin (MYCOSTATIN) cream Apply 1 application to affected area twice daily. apply to juana cleft rash until rash is gone then one more week Sodium Chloride (MESALT) 0.75 X 39 bndg Apply 1 application to affected area once daily. lightly pack / insert into wound area at coccyx with 2-3 wick enternally, change daily. Gauze Bandage 3 X 3 bndg Apply 1 application to affected area once daily. pantoprazole DR (PROTONIX) 40 mg tablet TAKE 1 TABLET BY MOUTH ONCE DAILY 1/2 HR BEFORE BREAKFAST glucagon (GLUCAGON EMERGENCY KIT, HUMAN,) 1 mg solr INJECT 1MG INTRAMUSCULARLY IF UNCONSCIOUS, UNABLE TO FOLLOW SIMPLE INSTRUCTIONS OR SEIZURES TIMES 1 DOSE glucose 4 gram chewable tablet TAKE 4 TABLETS BY MOUTH NEEDED FOR LOW BLOOD SUGAR BELOW 70 insulin needles, DISPOSABLE, (ULTICARE PEN NEEDLE) 31 gauge x 5/16 ndle Use to inject insulin 5 times daily. aspirin, enteric coated (ASPIRIN, ENTERIC COATED) 81 mg EC tablet TAKE (1) TABLET BY MOUTH DAILY IN THE MORNING. FLUoxetine (PROZAC) 20 mg capsule Take (1) capsule by mouth daily. Give with 10 mg capsule for 30 mg total. FLUoxetine (PROZAC) 10 mg capsule Take (1) capsule by mouth daily. Give with 20 mg capsule for 30 mg total. fluticasone (FLONASE) 50 mcg/actuation nasal spray USE 2 SPRAYS IN EACH NOSTRIL ONCE DAILY. RINSE MOUTH AFTER USE. insulin glargine (LANTUS SOLOSTAR U-100 INSULIN) 100 unit/mL (3 mL) inpn 14 units in the AM and 10 units at HS loratadine (CLARITIN) 10 mg tablet TAKE (1) TABLET BY MOUTH ONCE DAILY. olopatadine (PAZEO) 0.7 % drop Use 1 Drop in eyes once daily. QUEtiapine (SEROQUEL) 100 mg tablet TAKE 1 TABLET BY MOUTH ONCE DAILY AT 5 PM QUEtiapine (SEROQUEL) 200 mg tablet TAKE (1) TABLET BY MOUTH TWICE A DAY. 8am and 8pm. cholecalciferol (VITAMIN D3) 5,000 unit tab TAKE (1) TABLET BY MOUTH ONCE DAILY. Ascorbic Acid (VITAMIN C) 1,000 mg tablet TAKE (1) TABLET BY MOUTH ONCE DAILY. ammonium lactate (LAC-HYDRIN) 12 % lotion APPLY TO AFFECTED AREAS TWICE DAILY. APPLY TO FEET AND LOWER LEGS ferrous sulfate 325 mg (65 mg iron) tablet Take 1 tablet by mouth twice daily with meals. metoprolol tartrate, short acting, (LOPRESSOR) 25 mg tablet TAKE (1/2) TABLET BY MOUTH TWICE DAILY. polyethylene glycol 3350 (MIRALAX, GLYCOLAX) 17 gram/dose powder MIX 1 CAPFUL (17 GMS) IN 8 OZ OF WATER 2 TIMES DAILY. MIX 1 CAPFUL (17GRAMS) IN 8 OUNCES OF WATER AT 8PM A 3RD DOSE IF NO BM BY 8PM senna (SENNA) 8.6 mg tab TAKE (1) TABLET BY MOUTH TWICE A DAY. citric umdj-dlcudqcbyhf-nxk carb (RENACIDIN) 1980.6 mg-59.4 mg-980.4mg/30mL irrigation USE 30ML INTRAVESICALRY VIA URINARY CATHETER 3 TIMES DAILY CLAMP 30MIN THEN DRAIN atorvastatin (LIPITOR) 10 mg tablet TAKE ONE-HALF (1/2) TABLET AT BEDTIME. diclofenac sodium (VOLTAREN) 1 % topical gel Apply 2 g to affected area four times daily. melatonin 3 mg tablet Take 1 tablet by mouth daily at bedtime. oxybutynin (DITROPAN) 5 mg tablet Take 1 tablet by mouth as needed (once daily as needed for bladder spasms). (Lower abdomen pain/stomach/Testicular pain) acetaminophen (TYLENOL ARTHRITIS PAIN) 650 mg CR tablet Take 1 tablet by mouth every 8 hours as needed. aluminum-magnesium hydroxide-simethicone (RULOX) 200-200-20 mg/5 mL suspension Take 30 mL by mouth every 6 hours as needed. albuterol HFA (PROVENTIL HFA, VENTOLIN HFA) 90 mcg/actuation inhaler Inhale 2 Puffs as instructed every 4 hours as needed for Wheezing/Shortness of Breath. ketoconazole (NIZORAL) 2 % shampoo APPLY LATHER TO AFFECTED SKIN ON FACE AND RINSE OFF AFTER 2-5 MIN. USE DAILY NEEDED COMPOUNDED PRESCRIPTION Leg cath secure device. (Z92.89) Chronic indwelling Franco catheter blood sugar diagnostic (BLOOD GLUCOSE TEST) test strip Test blood sugar(s) 8 times daily. Dx: Type 1 DM - Uncontrolled E10.69 Insulin: Yes Lancets lancets Test blood sugar(s) 8 times daily. Dx: Type 2 DM - Uncontrolled E11.65 Insulin: Yes senna (SENNA) 8.6 mg tab Take 8.6 mg by mouth twice daily. carbamide peroxide (DEBROX) 6.5 % otic solution Use 5 Drops in both ears twice daily. for 5 days then discontinue IN-ACID GAS RELIEF 80 mg chewable tablet CHEW 1 TABLET BY MOUTH WITH MEALS AND AT BEDTIME senna (SENNA LAX) 8.6 mg tab Take 1 tablet by mouth twice daily. ammonium lactate (LAC-HYDRIN) 12 % cream Apply 1 application to affected area twice daily. COMPOUNDED PRESCRIPTION Please provide [facility] glucocard test strips to check blood sugar four to six Times a day docusate sodium (COLACE) 100 mg capsule Take 1 capsule by mouth twice daily as needed for Constipation. benzonatate (TESSALON PERLE) 100 mg capsule Take 1 capsule by mouth three times daily as needed for Cough. lidocaine (LIDODERM) 5 % Apply 1 Patch as directed every 24 hours. Remove old patch prior to placing new patch. Location: right shoulder Dextromethorphan-guaiFENesin (ROBITUSSIN DM) 10-200 mg/5 mL liqd Take 5-10 mL by mouth every 6 hours as needed. for cough benzonatate (TESSALON PERLES) 100 mg capsule Take 2 capsules by mouth three times daily as needed. ofloxacin (FLOXIN) 0.3 % otic solution Use 5 Drops in the right ear twice daily. glucagon, human recombinant, (GLUCAGON EMERGENCY KIT, HUMAN,) 1 mg injection Inject 1 mg intravenously one time only for 1 dose. bisacodyl (LAXATIVE, BISACODYL,) 10 mg supp 1 Suppository by RECTAL route once daily as needed. for constipation FAMILY HISTORY Problem Relation Age of Onset - other (unknown) Other - Diabetes Father Diabetic, unsure of which type, did not want to provide additional FH details. Social History Substance Use Topics - Smoking status: Never Smoker - Smokeless tobacco: Never Used - Alcohol use No ASSESSMENT/PLAN: 1. Viral illness - ICD9: 079.99, ICD10: B34.9 - Discussed viral etiology and rationale for treatment. - Symptomatic treatment with prn analgesia - Supportive care with fluids and rest Use of vics vaporub for nasal congestion. - BENZONATATE 100 MG CAPSULE Roger Diego APRN.CNP Prescription instructions reviewed with patient as applicable. Patient advised if symptoms do not improve or if symptoms worsen sooner, to contact the office for further evaluation by either myself or their primary care physician. Potential red flag symptoms discussed with the patient. Reviewed appropriate action plan to take if red flag symptoms occur. Patient agreeable to treatment plan. VIDAL Jefferson APRN.CNP 06/27/2018 3:49 PM Signed Your symptoms today are consistent with a viral illness such as a cold. I recommend that use Motrin or tylenol as needed for pain and fever. I also, recommend that you use Vics Vaporub under your nose 3-4 times/day as needed for nasal congestion. Please follow up with your PCP in 3-5 days and return for any new or worsening symptoms. [facility] PATIENT INFO COMMON COLD OVERVIEW The common cold is one of the most frequent illnesses in the [place]. Although most colds are mild and resolve within a short time period, colds cost billions of dollars per year, mostly due to lost time at work and school. COMMON COLD CAUSES The common cold is a group of symptoms caused by one of a large number of viruses. Rhinoviruses cause the greatest number of colds; there are more than 100 different varieties of rhinovirus. Most viruses cause a person to be ill only once. However, due to the large number of viruses, a person can have a cold multiple times throughout his or her lifetime. The average adult experiences two to three colds per year, while children average 8 to 12 colds per year. Colds are transmitted from [id number]. Less often, the virus can be transmitted by touching a surface. Direct contact ? People with colds typically carry the cold virus on their hands. The virus may remain alive on the skin and capable of infecting another person for at least two hours. Thus, if a sick person shakes someone's hand and that individual then touches his eye, nose, or mouth, the virus can be transmitted and later infect that person. Infection from particles on surfaces ? Some cold viruses can live on surfaces (such as a counter top, door handle, or phone) for several hours. Inhaling viral particles ? Droplets containing viral particles can be breathed, coughed, or sneezed into the air by a person with a cold. The virus can be transmitted to others if another person is standing close (a few feet) and the droplet touches that person?s eye, nose, or mouth. Covering the mouth while coughing or sneezing greatly reduces this risk. Most cold viruses are not spread by saliva. Thus, kissing itself is not likely to transmit the common cold, but close direct contact can. Colds are not caused by cold climates or being exposed to cold air. However, some types of virus cause more colds during certain seasons (eg, fall and winter versus spring). COMMON COLD SIGNS AND SYMPTOMS The common cold usually causes nasal congestion, runny nose, and sneezing. A sore throat may be present on the first day but usually resolves quickly. If a cough occurs, it generally develops on about the fourth or fifth day of symptoms, typically when congestion and runny nose are usually resolving. COMMON COLD COMPLICATIONS In most cases, colds do not cause serious illness. Most colds last for three to seven days, although many people continue to have symptoms (coughing, sneezing, congestion) for up to two weeks. Some viruses that cause the common cold can also depress the immune system or cause swelling in the lining of the nose or airways; this can, in turn, lead to a new viral infection or bacterial infection. ? One of the more common complications is sinusitis, which is usually caused by viruses and rarely (about 2 percent of the time) by bacteria. However, it can be difficult to distinguish bacterial sinusitis from sinusitis caused by a cold because the signs and symptoms can be similar Having thick or yellow to green-colored nasal discharge does not mean that bacterial sinusitis has developed; discolored nasal discharge is a normal phase of the common cold. ? Lower respiratory infections, such as pneumonia or bronchitis, may develop following a cold. ? Infection of the middle ear, or otitis media, can accompany or follow a cold. ? The influenza virus, which causes the flu, can also cause features similar to those of a cold. However, the flu usually causes other signs and symptoms (fever, body aches) and is more serious than a cold. COMMON COLD TREATMENT There is no specific treatment for the viruses that cause the common cold. Most treatments are aimed at relieving some of the symptoms of the cold, but do not shorten or cure the cold. Antibiotics are not useful for treating the common cold; antibiotics are only used to treat illnesses caused by bacteria, not viruses. The symptoms of a cold will resolve over time, even without any treatment. The following are treatments that may reduce the symptoms caused by the common cold. People with underlying medical conditions and those who use other rjwc-uvr-ozrlwlx or prescription medications should speak with their healthcare provider or pharmacist to ensure that it is safe to use these treatments. Runny nose and nasal congestion ? Runny nose and congestion may improve with the use of decongestants. Pseudoephedrine is a decongestant that can improve nasal congestion. Most drugstores in the [place] carry pseudoephedrine behind the counter, so it must be requested from the pharmacist (a prescription is not required). Antihistamines such as diphenhydramine (Benadryl?) may also help, but can cause side effects such as drowsiness and drying of the eyes, nose, and mouth. Nasal inhalers, including ipratropium bromide (Atrovent?, available by prescription) may relieve runny nose and sneezing while cromolyn sodium (NasalCrom?, a non-prescription medicine) may relieve runny nose, cough, and sneezing. Other nasal sprays such an oxymetazoline (Afrin? and others) can also give temporary relief of nasal congestion. However, these sprays should never be used for more than two to three days; use for more than three days use can worsen congestion. Nasal irrigation and saline sprays ? Rinsing the nose with a salt-water (saline) solution is called nasal irrigation or nasal lavage. Saline is also available in a standard nasal spray, although this is not as effective as using larger amounts of water in an irrigation. Nasal irrigation is particularly useful for treating drainage down the back of the throat, sneezing, nasal dryness, and congestion. The treatment helps by rinsing out allergens and irritants from the nose. Saline rinses also clean the nasal lining and can be used before applying sprays containing medications, to get a better effect from the medication. Nasal lavage with warmed saline can be performed as needed, once per day, or twice daily for increased symptoms. Nasal lavage carries few risks when performed correctly. Saline nasal sprays and irrigation kits can be purchased [id number]. Saline mixes can also be purchased or patients can make their own solution. A variety of devices, including bulb syringes, Neti pots, and bottle sprayers, may be used to perform nasal lavage; instructions for nasal lavage are provided in the table. At least 200 mL (about 3/4 cup) of fluid is recommended for each nostril. Sore throat and headache ? Sore throat and headache are best treated with a mild pain reliever such as acetaminophen (Tylenol?) or a non-steroidal anti-inflammatory agent such as ibuprofen or naproxen (Motrin? or Aleve?). Cough ? Common cough medicine ingredients include guaifenesin and dextromethorphan; these are often combined with other medications in flnk-qyf-alndvmr cold formulas. However, the benefit of cough medicines is likely to be small to non-existent. In clinical trials, cough suppressants were no more effective in reducing the duration or severity of coughing due to cold than a placebo (a non-drug substitute). Antibiotics ? Antibiotics should not be used to treat an uncomplicated common cold. As noted above, colds are caused by viruses. Antibiotics treat bacterial, not viral infections. Alternative treatments ? Heated, humidified air can improve symptoms of nasal congestion and runny nose, and causes few to no side effects. PREVENTION Hand washing is an essential and highly effective way to prevent the spread of infection. Hands should be wet with water and plain soap, and rubbed together for 15 to 30 seconds. Special attention should be paid to the fingernails, between the fingers, and the wrists. Hands should be rinsed thoroughly, and dried with a single use towel. Alcohol-based hand rubs are a good alternative for disinfecting hands if a sink is not available. Hand rubs should be spread over the entire surface of hands, fingers, and wrists until dry, and may be used several times. These rubs can be used repeatedly without skin irritation or loss of effectiveness. Hand rubs are available as a liquid or wipe in small, portable sizes that are easy to carry in a pocket or handbag. When a sink is available, visibly soiled hands should be washed with soap and water. Hands should be washed before preparing food and eating, and after coughing, blowing the nose, or sneezing. While it is not always possible to limit contact with people who may be infected with a cold, touching the eyes, nose, or mouth after direct contact should be avoided when possible. In addition, tissues should be used to cover the mouth when sneezing or coughing. These used tissues should be disposed of promptly. Sneezing/coughing into the sleeve of one's clothing (at the inner elbow) is another means of containing sprays of saliva and secretions and does not contaminate the hands. SUMMARY ? The average adult experiences two to three colds per year, while children average 8 to 12 colds per year. ? Symptoms of the common cold usually include nasal congestion, runny nose, and sneezing. They typically last for three to seven days, although many people have symptoms (coughing, sneezing, congestion) for up to two weeks. ? People with colds typically carry the cold virus on their hands, where it can infect another person for at least two hours. Some cold viruses can live on surfaces (such as a counter top, door handle, or phone) for several hours. Droplets containing viral particles can be breathed, coughed, or sneezed into the air. ? There is no specific treatment for colds. Treatment may reduce some of the symptoms of the cold, but do not shorten or cure the cold. Antibiotics are not useful for treating the common cold. Hand washing can prevent the spread of infection. Hands should be wet with water and plain soap, and rubbed together for 15 to 30 seconds. Alcohol-based hand rubs are a good alternative for disinfecting hands if a sink is not available Referring Provider: SELF [200] Allergies As of Date: 06/27/2018 Noted Allergy Reaction SEASONAL ALLERGIES 12/03/2012 14 - Other: See Comments Comments: Environmental-ragweed Date Reviewed: 06/27/2018 Reviewed by: Kamilah Springer Ma - Fully Assessed Reason for Visit: Chest Congestion [236] Cmt: cough x 6 days Primary Visit Diagnosis:Viral illness [B34.9] Order(s):benzonatate (TESSALON PERLE) 100 mg capsuleTake 1 capsule by mouth three times daily as needed for Cough.Disp: 12 capsuleRfl: 0 Prescriptions as of 06/27/2018 Sig: INSULIN LISPRO (U-100) 100 UN* Inject 8 units breakfast, 5 u* NYSTATIN 100,000 UNIT/GRAM TO* Apply 1 application to affect* SODIUM CHLORIDE 0.75 X 39 B* Apply 1 application to affect* GAUZE BANDAGE 3 X 3 Apply 1 application to affect* PANTOPRAZOLE 40 MG TABLET,DEL* TAKE 1 TABLET BY MOUTH ONCE D* GLUCAGON (HUMAN RECOMBINANT) * INJECT 1MG INTRAMUSCULARLY IF* GLUCOSE 4 GRAM CHEWABLE TABLET TAKE 4 TABLETS BY MOUTH NE* PEN NEEDLE, DIABETIC 31 GAUGE* Use to inject insulin 5 times* ASPIRIN 81 MG TABLET,DELAYED * TAKE (1) TABLET BY MOUTH JACQUELIN* FLUOXETINE 20 MG CAPSULE Take (1) capsule by mouth vasyl* FLUOXETINE 10 MG CAPSULE Take (1) capsule by mouth vasyl* FLUTICASONE 50 MCG/ACTUATION * USE 2 SPRAYS IN EACH NOSTRIL * INSULIN GLARGINE (U-100) 100 * 14 units in the AM and 10 uni* LORATADINE 10 MG TABLET TAKE (1) TABLET BY MOUTH ONCE* OLOPATADINE 0.7 % EYE DROPS Use 1 Drop in eyes once daily. QUETIAPINE 100 MG TABLET TAKE 1 TABLET BY MOUTH ONCE D* QUETIAPINE 200 MG TABLET TAKE (1) TABLET BY MOUTH TWIC* CHOLECALCIFEROL (VITAMIN D3) * TAKE (1) TABLET BY MOUTH ONCE* ASCORBIC ACID (VITAMIN C) 1,0* TAKE (1) TABLET BY MOUTH ONCE* AMMONIUM LACTATE 12 % LOTION APPLY TO AFFECTED AREAS TWICE* FERROUS SULFATE 325 MG (65 MG* Take 1 tablet by mouth twice * METOPROLOL TARTRATE 25 MG TAB* TAKE (1/2) TABLET BY MOUTH TW* POLYETHYLENE GLYCOL 3350 17 G* MIX 1 CAPFUL (17 GMS) IN 8 OZ* SENNOSIDES 8.6 MG TABLET TAKE (1) TABLET BY MOUTH TWIC* CITRIC AC 1980.6 MG-GLUCONO 5* USE 30ML INTRAVESICALRY VIA U* ATORVASTATIN 10 MG TABLET TAKE ONE-HALF (1/2) TABLET AT* DICLOFENAC 1 % TOPICAL GEL Apply 2 g to affected area fo* MELATONIN 3 MG TABLET Take 1 tablet by mouth daily * OXYBUTYNIN CHLORIDE 5 MG TABL* Take 1 tablet by mouth as nee* ACETAMINOPHEN ER 650 MG TABLE* Take 1 tablet by mouth every * ALUMINUM-MAG HYDROXIDE-SIMETH* Take 30 mL by mouth every 6 h* ALBUTEROL SULFATE HFA 90 MCG/* Inhale 2 Puffs as instructed * KETOCONAZOLE 2 % SHAMPOO APPLY LATHER TO AFFECTED SKIN* COMPOUNDED PRESCRIPTION Leg cath secure device. (Z92* BLOOD SUGAR DIAGNOSTIC STRIPS Test blood sugar(s) 8 times d* LANCETS Test blood sugar(s) 8 times d* SENNOSIDES 8.6 MG TABLET Take 8.6 mg by mouth twice da* CARBAMIDE PEROXIDE 6.5 % EAR * Use 5 Drops in both ears twic* IN-ACID GAS RELIEF 80 MG CHEW* CHEW 1 TABLET BY MOUTH WITH M* SENNOSIDES 8.6 MG TABLET Take 1 tablet by mouth twice * AMMONIUM LACTATE 12 % TOPICAL* Apply 1 application to affect* COMPOUNDED PRESCRIPTION Please provide ARKKAY glucoca* DOCUSATE SODIUM 100 MG CAPSULE Take 1 capsule by mouth twice* BENZONATATE 100 MG CAPSULE Take 1 capsule by mouth three* LIDOCAINE 5 % TOPICAL PATCH Apply 1 Patch as directed kendal* Patient not taking: Reported on 06/27/2018 DEXTROMETHORPHAN-GUAIFENESIN * Take 5-10 mL by mouth every 6* Patient not taking: Reported on 06/27/2018 BENZONATATE 100 MG CAPSULE Take 2 capsules by mouth thre* Patient not taking: Reported on 05/31/2018 OFLOXACIN 0.3 % EAR DROPS Use 5 Drops in the right ear * Patient not taking: Reported on 06/27/2018 GLUCAGON (HUMAN RECOMBINANT) * Inject 1 mg intravenously one* BISACODYL 10 MG RECTAL SUPPOS* 1 Suppository by RECTAL route* Patient not taking: Reported on 03/05/2018 Problem List As Of Date 06/27/2018 Noted Resolved ATTN DEFICIT W HYPERACT [F90.9] [...] 2 severe obesity with serious comorbidity*INVALID FOR* Type 1 diabetes mellitus (HCC) [E10.9] INVALID FOR* More... Other instructions from your clinician: Your symptoms today are consistent with a viral illness such as a cold. I recommend that use Motrin or tylenol as needed for pain and fever. I also, recommend that you use Vics Vaporub under your nose 3- 4 times/day as needed for nasal congestion. Please follow up with your PCP in 3-5 days and return for any new or worsening symptoms. EXPRESS CARE PATIENT INFO COMMON COLD OVERVIEW The common cold is one of the most frequent illnesses in the [place]. Although most colds are mild and resolve within a short time period, colds cost billions of dollars per year, mostly due to lost time at work and school. COMMON COLD CAUSES The common cold is a group of symptoms caused by one of a large number of viruses. Rhinoviruses cause the greatest number of colds; there are more than 100 different varieties of rhinovirus. Most viruses cause a person to be ill only once. However, due to the large number of viruses, a person can have a cold multiple times throughout his or her lifetime. The average adult experiences two to three colds per year, while children average 8 to 12 colds per year. Colds are transmitted from qgwpth-hb-tsvjmr. Less often, the virus can be transmitted by touching a surface. Direct contact ? People with colds typically carry the cold virus on their hands. The virus may remain alive on the skin and capable of infecting another person for at least two hours. Thus, if a sick person shakes someone's hand and that individual then touches his eye, nose, or mouth, the virus can be transmitted and later infect that person. Infection from particles on surfaces ? Some cold viruses can live on surfaces (such as a counter top, door handle, or phone) for several hours. Inhaling viral particles ? Droplets containing viral particles can be breathed, coughed, or sneezed into the air by a person with a cold. The virus can be transmitted to others if another person is standing close (a few feet) and the droplet touches that person?s eye, nose, or mouth. Covering the mouth while coughing or sneezing greatly reduces this risk. Most cold viruses are not spread by saliva. Thus, kissing itself is not likely to transmit the common cold, but close direct contact can. Colds are not caused by cold climates or being exposed to cold air. However, some types of virus cause more colds during certain seasons (eg, fall and winter versus spring). COMMON COLD SIGNS AND SYMPTOMS The common cold usually causes nasal congestion, runny nose, and sneezing. A sore throat may be present on the first day but usually resolves quickly. If a cough occurs, it generally develops on about the fourth or fifth day of symptoms, typically when congestion and runny nose are usually resolving. COMMON COLD COMPLICATIONS In most cases, colds do not cause serious illness. Most colds last for three to seven days, although many people continue to have symptoms (coughing, sneezing, congestion) for up to two weeks. Some viruses that cause the common cold can also depress the immune system or cause swelling in the lining of the nose or airways; this can, in turn, lead to a new viral infection or bacterial infection. ? One of the more common complications is sinusitis, which is usually caused by viruses and rarely (about 2 percent of the time) by bacteria. However, it can be difficult to distinguish bacterial sinusitis from sinusitis caused by a cold because the signs and symptoms can be similar Having thick or yellow to green-colored nasal discharge does not mean that bacterial sinusitis has developed; discolored nasal discharge is a normal phase of the common cold. ? Lower respiratory infections, such as pneumonia or bronchitis, may develop following a cold. ? Infection of the middle ear, or otitis media, can accompany or follow a cold. ? The influenza virus, which causes the flu, can also cause features similar to those of a cold. However, the flu usually causes other signs and symptoms (fever, body aches) and is more serious than a cold. COMMON COLD TREATMENT There is no specific treatment for the viruses that cause the common cold. Most treatments are aimed at relieving some of the symptoms of the cold, but do not shorten or cure the cold. Antibiotics are not useful for treating the common cold; antibiotics are only used to treat illnesses caused by bacteria, not viruses. The symptoms of a cold will resolve over time, even without any treatment. The following are treatments that may reduce the symptoms caused by the common cold. People with underlying medical conditions and those who use other bxgd-jja-ruumdnh or prescription medications should speak with their healthcare provider or pharmacist to ensure that it is safe to use these treatments. Runny nose and nasal congestion ? Runny nose and congestion may improve with the use of decongestants. Pseudoephedrine is a decongestant that can improve nasal congestion. Most drugstores in the [place] carry pseudoephedrine behind the counter, so it must be requested from the pharmacist (a prescription is not required). Antihistamines such as diphenhydramine (Benadryl?) may also help, but can cause side effects such as drowsiness and drying of the eyes, nose, and mouth. Nasal inhalers, including ipratropium bromide (Atrovent?, available by prescription) may relieve runny nose and sneezing while cromolyn sodium (NasalCrom?, a non-prescription medicine) may relieve runny nose, cough, and sneezing. Other nasal sprays such an oxymetazoline (Afrin? and others) can also give temporary relief of nasal congestion. However, these sprays should never be used for more than two to three days; use for more than three days use can worsen congestion. Nasal irrigation and saline sprays ? Rinsing the nose with a salt-water (saline) solution is called nasal irrigation or nasal lavage. Saline is also available in a standard nasal spray, although this is not as effective as using larger amounts of water in an irrigation. Nasal irrigation is particularly useful for treating drainage down the back of the throat, sneezing, nasal dryness, and congestion. The treatment helps by rinsing out allergens and irritants from the nose. Saline rinses also clean the nasal lining and can be used before applying sprays containing medications, to get a better effect from the medication. Nasal lavage with warmed saline can be performed as needed, once per day, or twice daily for increased symptoms. Nasal lavage carries few risks when performed correctly. Saline nasal sprays and irrigation kits can be purchased ervj-nyk-nzsavsm. Saline mixes can also be purchased or patients can make their own solution. A variety of devices, including bulb syringes, Neti pots, and bottle sprayers, may be used to perform nasal lavage; instructions for nasal lavage are provided in the table. At least 200 mL (about 3/4 cup) of fluid is recommended for each nostril. Sore throat and headache ? Sore throat and headache are best treated with a mild pain reliever such as acetaminophen (Tylenol?) or a non-steroidal anti-inflammatory agent such as ibuprofen or naproxen (Motrin? or Aleve?). Cough ? Common cough medicine ingredients include guaifenesin and dextromethorphan; these are often combined with other medications in bkmr-ksq-aukthhi cold formulas. However, the benefit of cough medicines is likely to be small to non-existent. In clinical trials, cough suppressants were no more effective in reducing the duration or severity of coughing due to cold than a placebo (a non-drug substitute). Antibiotics ? Antibiotics should not be used to treat an uncomplicated common cold. As noted above, colds are caused by viruses. Antibiotics treat bacterial, not viral infections. Alternative treatments ? Heated, humidified air can improve symptoms of nasal congestion and runny nose, and causes few to no side effects. PREVENTION Hand washing is an essential and highly effective way to prevent the spread of infection. Hands should be wet with water and plain soap, and rubbed together for 15 to 30 seconds. Special attention should be paid to the fingernails, between the fingers, and the wrists. Hands should be rinsed thoroughly, and dried with a single use towel. Alcohol-based hand rubs are a good alternative for disinfecting hands if a sink is not available. Hand rubs should be spread over the entire surface of hands, fingers, and wrists until dry, and may be used several times. These rubs can be used repeatedly without skin irritation or loss of effectiveness. Hand rubs are available as a liquid or wipe in small, portable sizes that are easy to carry in a pocket or handbag. When a sink is available, visibly soiled hands should be washed with soap and water. Hands should be washed before preparing food and eating, and after coughing, blowing the nose, or sneezing. While it is not always possible to limit contact with people who may be infected with a cold, touching the eyes, nose, or mouth after direct contact should be avoided when possible. In addition, tissues should be used to cover the mouth when sneezing or coughing. These used tissues should be disposed of promptly. Sneezing/coughing into the sleeve of one's clothing (at the inner elbow) is another means of containing sprays of saliva and secretions and does not contaminate the hands. SUMMARY ? The average adult experiences two to three colds per year, while children average 8 to 12 colds per year. ? Symptoms of the common cold usually include nasal congestion, runny nose, and sneezing. They typically last for three to seven days, although many people have symptoms (coughing, sneezing, congestion) for up to two weeks. ? People with colds typically carry the cold virus on their hands, where it can infect another person for at least two hours. Some cold viruses can live on surfaces (such as a counter top, door handle, or phone) for several hours. Droplets containing viral particles can be breathed, coughed, or sneezed into the air. ? There is no specific treatment for colds. Treatment may reduce some of the symptoms of the cold, but do not shorten or cure the cold. Antibiotics are not useful for treating the common cold. Hand washing can prevent the spread of infection. Hands should be wet with water and plain soap, and rubbed together for 15 to 30 seconds. Alcohol-based hand rubs are a good alternative for disinfecting hands if a sink is not available Prescriptions ordered this encounter Disp Refills Start End BENZONATATE 100 MG CAPSULE 12 c* 0 06/27/2018 Route: ORAL Sig: Take 1 capsule by mouth three times daily as needed for Cough. Encounter Status:Closed by ROGER DIEGO CNP on 06/27/18 OPERATIVE REPORT Observed: 06/22/2018 Status: F Source: [place] 5:56 PM [facility] REPOSITORY [facility] Medical Records Department [address] [place] [address] Operative Report 06/22/18 1205 MR#: [id number] Acct: [id number] Name: JARON MORSE Rep #: [id number] : 1980 38 From: Hugh Abreu MD PCP: Francine Clark MD Status: [facility] Y Location: [facility] Problem List (1) Problem with dialysis access Status: Chronic Qualifiers: Encounter type: subsequent encounter Qualified Code(s): T82.898D - Other specified complication of vascular prosthetic devices, implants and grafts, subsequent encounter Report of Operation Date of Procedure: 06/22/18 Pre-Operative Diagnosis: Failure to mature transposed right forearm cephalic vein to radial artery arteriovenous hemodialysis fistula Post-Operative Diagnosis: Moderate arterial venous anastomosis stenosis. Mild diffuse proximal fistula venous stenosis Surgery/Procedure Performed:: Right upper extremity carbon dioxide fistulogram with 5 x 2 Powerflex anastomotic angioplasty and 7 x 80 mm ever cross venous angioplasty Description of Surgical Findings:: Timeout and informed consent was obtained. 38-year-old gentleman was taken to the special procedures lab placed on the table he received 50 mcg of fentanyl and 1 mg of Versed ultrasound was performed identifying the cephalic vein close to the antecubital space. 2% lidocaine was instilled. A micropuncture needle was inserted retrograde with flow. Micropuncture wire inserted. A 6 Niuean short sheath was inserted. Then using an 035 angled Glidewire and a 4 Niuean glide cath I was able to get access to the radial artery proximal to the anastomosis. Using 18 cc of hand injected carbon dioxide fistulogram performed. This suggested moderate arterial anastomotic stenosis and diffuse stenosis of the proximal portion of the fistula. I placed a 4 Niuean glide cath. I attempted to place an 035 Magic wire but would not make the acute angulation so I was able to place an 035 standard J- wire. I placed a 5 x 2 Powerflex balloon. The patient received 5000 units of heparin intravenously. Balloon angioplasty of the arterial anastomosis performed with a 5 x 2 Powerflex. I exchanged that out and placed a 7 x 80 mm ever cross balloon to perform angioplasty of the proximal portion of the fistula. I performed the final fistulogram with 6 cc of contrast this demonstrated that the arterial anastomotic area appeared to be patent there was some mild stenosis of the proximal portion of the vein prior to a more bulbous area. There was resolved stenosis in the proximal mid portions of the fistula. I then had wanted to finish the fistulogram the upper arm with carbon dioxide however that point there was patient movement and the sheath dislodged. I elected not to pursue further attempts as the patient had been extraordinarily restless throughout the entire procedure. I placed a U suture of 4-0 nylon at the catheter site pressure was held there was good pulse thrill and bruit at the completion no apparent complication he was taken to the recovery area in satisfactory condition Impression patent right forearm transposed cephalic vein to radial artery arteriovenous fistula with improved anastomotic stenosis and improved proximal fistula venous stenosis. Hugh Abreu M.D., F.A.C.S. Type of Anesthesia:: IV Sedation, Local 06/22/18 9111 <Electronically signed by Hugh Abreu MD> Date Hugh Abreu MD CC: Madi Miller M.D.; Francine Clark MD; Hugh Abreu MD; ONDINA GIRON Signed CBC W/DIFF, AUTOMATED Collected: 06/21/2018 Status: F Source: [place] 8:35 AM [facility] REPOSITORY Order Comment: DR. MILLER ORDERED URINE, PTHI,VITD, RENAL,CBC DR. ERICKSON ORDERED CBCD,CMP,FE,TIBC,RUDOLPH,LDH TYPE CODE TESTS RESULT OUT OF RANGE REFERENCE UNITS LAB L100.1000 4.4-11.0 K/mm3 Normal WBC 5.7 LAB L100.1200 4.6-6.2 M/mm3 Low RBC 3.97 LAB L100.1300 13.0-16.5 g/dl Low HGB 12.6 LAB L100.1400 40-54 % Low HCT 38.8 LAB L100.1500 80-94 fL High MCV 97.7 LAB L100.1600 27.0-32.0 pg Normal MCH 31.7 LAB L100.1700 32-36 g/gl Normal MCHC 32.5 LAB L100.1810 11.6-14.6 % Normal RDW CV 12.8 LAB L100.1820 35.1-43.9 fl High RDW SD 46.0 LAB L100.1900 150-450 K/mm3 Normal PLT 201 LAB L100.2000 6.2-12.0 fl Normal MPV 10.5 LAB L100.2100 47-70 % Normal NEUT% 60.8 LAB L100.2200 19-41 % Normal LY% 26.8 LAB L100.2300 0-10 % Normal MONO% 8.7 LAB L100.2400 0-5 % Normal EO% 3.3 LAB L100.2500 0-1 % Normal BASO% 0.2 LAB L100.2550 0.0-0.9 % Normal IM GRAN % 0.200 Result Comment: IG% - Immature Granulocytes (promyelocytes, myelocytes and metamyelocytes) > 1% indicates that a LEFT SHIFT is Present. LAB L100.2620 2.0-7.7 X10 3/uL Normal Absolute Neut 3.5 LAB L100.2720 0.83-4.51 X10 3/ul Normal Absolute Lymph 1.54 Performed By: #### L100.0100 #### [facility] [address] [place], [address] PROTEIN+CREATININE Collected: Status: F Source: [place] RATIO,URINE 06/21/2018 8:35 AM [facility] REPOSITORY Order Comment: DR. MILLER ORDERED URINE, PTHI,VITD, RENAL,CBC DR. ERICKSON ORDERED CBCD,CMP,FE,TIBC,RUDOLPH,LDH TYPE CODE TESTS RESULT OUT OF RANGE REFERENCE UNITS LAB L501.1200 NO RANGE EST. mg/dL Normal UR CREAT 28.20 LAB L501.1930 <11.9 mg/dL Normal 6.3 PROTEIN,UR.R AN. LAB L501.1940 0-200 mg/g CRE High PROT:CRE 223 RATIO Performed By: #### L501.0900 #### [facility] [address] [place], [place], [address] VITAMIN D,25 HYDROXY Collected: 06/21/2018 Status: F Source: [place] 8:35 AM [facility] REPOSITORY Order Comment: DR. MILLER ORDERED URINE, PTHI,VITD, RENAL,CBC DR. ERICKSON ORDERED CBCD,CMP,FE,TIBC,RUDOLPH,LDH TYPE CODE TESTS RESULT OUT OF RANGE REFERENCE UNITS LAB L506.1000 29.95-100.01 ng/mL Normal Vitamin D 67.8 25-OH Result Comment: Vitamin D 25(OH) Status Range Deficiency <20 ng/mL (50nmol/L) Insuffciency 20 - 30 ng/mL (50 - 75 nmol/L) Sufficiency 30 - 100 ng/mL (75 - 250 nmol/L) Toxicity >100 ng/mL (>250 nmol/L) Performed By: #### L506.1000 #### [facility] [address] [place], [address] PTHIN Collected: 06/21/2018 Status: F Source: [place] 8:35 AM [facility] REPOSITORY Order Comment: DR. MILLER ORDERED URINE, PTHI,VITD, RENAL,CBC DR. ERICKSON ORDERED CBCD,CMP,FE,TIBC,RUDOLPH,LDH TYPE CODE TESTS RESULT OUT OF RANGE REFERENCE UNITS LAB L509.1000 18.4-80.1 pg/mL High PTHIN 197.1 Performed By: #### L509.1000 #### [facility] [address] [place], [place], [address] COMPREHENSIVE METABOLIC Collected: 06/21/2018 Status: F Source: [facility] 8:35 AM [facility] REPOSITORY Order Comment: DR. MILLER ORDERED URINE, PTHI,VITD, RENAL,CBC DR. ERICKSON ORDERED CBCD,CMP,FE,TIBC,RUDOLPH,LDH Serial Specimen #1, #2 or #3? 1 TYPE CODE TESTS RESULT OUT OF RANGE REFERENCE UNITS LAB L501.0100 74-106 mg/dL High GLU 177 Result Comment: Fasting Glucose result greater than or equal to 126 mg/dL suggests DIABETES MELLITUS per A.D.A. criteria. Please note revised GLUCOSE reference range effective 2017. LAB L501.1000 7-18 mg/dL High BUN 70 LAB L501.1100 0.70-1.30 mg/dL High CREAT,SERUM 4.71 Result Comment: The validity of the calculated GFR AND GFRAA in patients over 70 years has not been determined. Clinical correlation is essential. LAB L501.1110 >60 mL/min Low EST GFR 15 Result Comment: Non- GFR Calc LAB L501.1115 >60 mL/min Low EST GFR - AA 18 Result Comment: GFR Calc LAB L501.1300 10-20 RATIO Normal BUN/CRE 14.9 LAB L501.1500 6.4-8.2 g/dL T Normal PROT 7.6 LAB L501.1800 3.2-5.0 g/dL Normal ALB 3.5 LAB L501.1950 2.2-4.2 g/dL Normal GLOB 4.1 LAB L501.2000 0.9-2.4 RATIO Normal A/G 0.9 LAB L501.2200 8.5-10.1 mg/dL CA Normal 8.5 LAB L501.4100 15-37 U/L Normal AST 20 LAB L501.4305 45-117 U/L High ALK P 131 LAB L501.4405 16-61 U/L Normal ALT 25 LAB L501.4600 0.20-1.00 mg/dL T Normal BILI 0.30 LAB L501.5300 136-145 mmol/L NA Normal 141 LAB L501.5600 3.5-5.1 mmol/L K Normal 5.1 LAB L501.5900 98-107 mmol/L CL Normal 105 LAB L501.6100 21.0-32.0 mmol/L Normal CO2 28.0 LAB L501.6200 5-15 Normal GAP 8 Performed By: #### L500.4050, L501.2300, L503.6075, L503.6150, L503.6550, L504.2610 #### [facility] [address] [place], [address] PHOSPHORUS Collected: 06/21/2018 Status: F Source: GREG 8:35 AM [facility] REPOSITORY Order Comment: DR. MILLER ORDERED URINE, PTHI,VITD, RENAL,CBC DR. ERICKSON ORDERED CBCD,CMP,FE,TIBC,RUDOLPH,LDH Serial Specimen #1, #2 or #3? 1 TYPE CODE TESTS RESULT OUT OF RANGE REFERENCE UNITS LAB L501.2300 2.5-4.9 mg/dL Normal PHOS 4.9 Performed By: #### L500.4050, L501.2300, L503.6075, L503.6150, L503.6550, L504.2610 #### [facility] [address] [place], [place], [id number] IRON BINDING Collected: 06/21/2018 Status: F Source: GREG CAPACITY,TOTAL 8:35 AM [facility] REPOSITORY Order Comment: DR. MILLER ORDERED URINE, PTHI,VITD, RENAL,CBC DR. ERICKSON ORDERED CBCD,CMP,FE,TIBC,RUDOLPH,LDH Serial Specimen #1, #2 or #3? 1 TYPE CODE TESTS RESULT OUT OF RANGE REFERENCE UNITS LAB L503.6075 250-450 ug/dL Normal TIBC 263 Performed By: #### L500.4050, L501.2300, L503.6075, L503.6150, L503.6550, L504.2610 #### [facility] [address] [place], [place], [id number] IRON Collected: 06/21/2018 Status: F Source: GREG 8:35 AM [facility] REPOSITORY Order Comment: DR. MILLER ORDERED URINE, PTHI,VITD, RENAL,CBC DR. ERICKSON ORDERED CBCD,CMP,FE,TIBC,RUDOLPH,LDH Serial Specimen #1, #2 or #3? 1 TYPE CODE TESTS RESULT OUT OF RANGE REFERENCE UNITS LAB L503.6150 65-175 ug/dL Low IRON 60 Performed By: #### L500.4050, L501.2300, L503.6075, L503.6150, L503.6550, L504.2610 #### [facility] [address] [place], [address] FERRITIN Collected: 06/21/2018 Status: F Source: GREG 8:35 AM [facility] REPOSITORY Order Comment: DR. MILLER ORDERED URINE, PTHI,VITD, RENAL,CBC DR. ERICKSON ORDERED CBCD,CMP,FE,TIBC,RUDOLPH,LDH Serial Specimen #1, #2 or #3? 1 TYPE CODE TESTS RESULT OUT OF REFERENCE UNITS RANGE LAB L503.6550 26-388 ng/mL Low FERRITIN 14 Performed By: #### L500.4050, L501.2300, L503.6075, L503.6150, L503.6550, L504.2610 #### [facility] [address] [place], [address] LDH Collected: 06/21/2018 Status: F Source: [place] 8:35 AM [facility] REPOSITORY Order Comment: DR. MILLER ORDERED URINE, PTHI,VITD, RENAL,CBC DR. ERICKSON ORDERED CBCD,CMP,FE,TIBC,RUDOLPH,LDH Serial Specimen #1, #2 or #3? 1 TYPE CODE TESTS RESULT OUT OF RANGE REFERENCE UNITS LAB L504.2610 87-241 U/L Normal LDH 218 Performed By: #### L500.4050, L501.2300, L503.6075, L503.6150, L503.6550, L504.2610 #### [facility] [address] [place], [address] SURGERY VISIT REPORT Observed: 06/07/2018 Status: F Source: [place] 8:50 AM [facility] REPOSITORY [facility] [address] [place] [address] OFFICE VISIT Date of Service: 06/07/18 MR#: [id number] Acct: [id number] Name: FRACISCOTANYAJARON D Rep #: [id number] : 1980 Provider: Hugh Abreu MD Age/Sex: 38/M Location: [facility] Status: Signed Intake Intake Visit Reasons: Pilonidal Cyst - sched w/Cherise @ [place] Chief Complaint: pilonidal draining Log Deckman Required: No Is patient in pain?: No Allergies No Known Allergies Allergy (Verified 06/07/18 07:33) Medications Ascorbic Acid [Vitamin C] 1,000 mg [...] Solution] 30 ml IR 0800,1600,199904/20/18 [History Confirmed 05/29/18] Fluoxetine [Prozac] 10 mg PO DAILY 04/20/18 [History Confirmed 05/29/18] Fluticasone 0.05% [Flonase Nasal [place]] 2 spray NASAL DAILY 04/20/18 [History Confirmed [...] 05/29/18] Quetiapine Fumarate [Seroquel] 200 mg PO 08,199904/20/18 [History Confirmed 05/29/18] Ferrous Sulfate 2 tab PO DAILY 05/10/18 [History Confirmed 05/29/18] Smz/Tmp Ds [Bactrim Ds] 1 tab PO BID #14 tab 05/10/18 [Rx Confirmed 05/29/18] PFSH Medical History Problem with dialysis access (Chronic) hx of PICC Line (Chronic) Strabismus (Chronic) Disruptive Behavior Disorder (Chronic) Diabetic retinopathy (Chronic) History of constipation (Chronic) Aspiration into airway (Suspected) Wheezing (Resolved) Chronic kidney disease (Chronic) Hyponatremia (Resolved) Ileus (Resolved) History of Suprapubic Cystostomy (Chronic) History of anxiety disorder (Chronic) Surgical History History of suprapubic catheter (Chronic) Hx of exploratory laparotomy (Chronic) History of esophagogastroduodenoscopy (EGD) (Chronic) Hx of colonoscopy (Chronic) Hx of arteriovenostomy for renal dialysis (Chronic) Hx of appendectomy (Chronic) Social History Smoking Status: Never smoker second hand exposure: No alcohol intake: never substance use type: does not use caffeine: Yes what type of physical activity do you participate in: none frequency: does not exercise seatbelt use: always HPI HPI HPI: JARON MORSE, is a 38 M who presents to the office today for surgical consultation regarding a pilonidal cyst/abscess. This is a patient who I am following for a right forearm transposed cephalic vein to radial artery arteriovenous hemodialysis fistula. Is not yet utilized. He is not yet on hemodialysis.Patient is a 38 y/o male I am [...] denies numbness/tingling of the hand and fingers. On a separate note however he was seen by Dr. Francine Clark 1 week ago with blood and drainage from his sacrococcygeal area. This was felt to be consistent with a pilonidal. He is also referred for surgical consultation. This patient apparently is being transferred in [facility] to a extended care facility due to his ongoing requirements. No longer is he able to remain in [place] setting. The patient is referred by Dr. Francine Clark for surgical consultation regarding pilonidal disease and a written compromise surgical consult recommendations will be returned to her Exam Const General: cooperative Nutritional Appearance: obese Resp Effort AND Inspection: normal respiratory effort Auscultation: clear to auscultation bilaterally Cardio Rate: regular rate Rhythm: regular rhythm GI Inspection: normal to inspection Palpation: soft, no hepatosplenomegaly Other: Inspection of the sacrococcygeal area reveals a 1.5 cm diameter open wound with granulating base. Measures approximately 6 mm deep. There is evidence of a slight pilonidal pore further distally. No erythema. There is odor consistent with Pseudomonas Neuro General: awake Extrem Other: Right forearm transposed cephalic vein to radial artery AV fistula appears to have adequate venous diameter. There appears however to be poor arterial inflow. Assessment AND Plan Problems 1. CKD (chronic kidney disease) stage 5, GFR less than 15 ml/min N18.5 2. Problem with dialysis access, initial encounter T82.898A 3. Pilonidal cyst with abscess L05.01 Plan The patient needs further assisted with maturation of his transposed right forearm cephalic vein to radial artery AV fistula. I propose a right forearm fistulogram using carbon dioxide retrograde with flow. I anticipate radial artery arterial inflow and anastomosis restriction. The patient is aware of technique, benefits, risks and alternatives The patient's pilonidal site is clearly not new. This is a wide open wound. There is no cellulitis. There is an odor of Pseudomonas. Because of the patient's body habitus and chronic sitting condition and mental health issues I believe that will be very difficult to get resolution of this area. At this time I recommend Vaseline to protect the wound followed by 07/04 right Mortensen's wet-to-dry gauze wick dressing changes. The patient as noted it will be newly moving to a nursing care facility. He may be able to achieve ongoing care there or may return as needed. CC: Dr. Francine Abreu M.D., F.A.C.S. Coding Level of Care Code Exp prob focused,strt fwd Diagnoses CKD (chronic kidney disease) stage 5, GFR less than 15 ml/min N18.5 Problem with dialysis access, initial encounter T82.898A Encounter type: initial encounter Pilonidal cyst with abscess L05.01 06/07/18 0850 <Electronically signed by Hugh Abreu MD> Date Hugh Abreu MD Cosigner Signature: Date (if applicable) CC: Francine Clark MD CNOV Observed: 06/04/2018 Status: COMPLETED Source: OG 10:55 AM [facility] REPOSITORY Office Visit (TURNER) JARON MORSE ([id number]) 1980 M Date Time Provider Department 06/04/18 10:55 AM NAYE NUÑEZ ([place]) ENDMED During your visit today, we recorded the following information about you: Pulse Blood pressure Weight Height 91/minute 141/88 107 kg 1.638 m Naye Nuñez APRN.CNP 06/04/2018 11:45 AM Signed Reason for Consultation: DM Type 1 Referring Physician: SELF HISTORY OF PRESENT ILLNESS Mr. Morse is a 38 year old male presenting here today for a follow up of DM Type 1. As I recall, he was initially diagnosed with diabetes age 8. Previous patient of Dr. Feliciano; LV 03/05/2018 A1C 6.5 on 05/09/2018 Lives with [employer] ([employer] Here with an employee of [employer]. Administers his own insulin. No on pureed diet Follows with [facility]. ? Known complications include: hyperlipidemia and [...] Social History Narrative Patient lives in [place] with 24 hour supervision. [...] DAILY. Disp: 30 tablet Rfl: 5 citric ewws-sahdedhlclj-ded carb (RENACIDIN) 1980.6 mg-59.4 mg-980.4mg/30mL irrigation USE 30ML INTRAVESICALRY VIA URINARY CATHETER 3 TIMES DAILY CLAMP 30MIN THEN DRAIN Disp: 270 mL Rfl: 5 COMPOUNDED PRESCRIPTION Please provide ARKKAY glucocard test strips to check blood sugar [...] TWICE DAILY. Disp: 30 tablet Rfl: 5 IN-ACID GAS RELIEF 80 mg chewable tablet CHEW [...] disease, with long-term current use of insulin ([facility]) (primary encounter diagnosis) Comment: glycemic control is above goal. A1C is 6.5 in the setting of anemia. Insulin adjustments made today. He lives [place] but mostly manages his own diabetes. Send [...] exercise efforts as able Naye Nuñez APRN, [employer] Endocrinology [facility] [address] Fax: Naye Nuñez APRN.[facility] 06/04/2018 11:22 AM Addendum 1. Lantus Am [...] months with labs prior. Naye Nuñez APRN, [employer] Endocrinology [facility] [address] Fax: Referring Provider: SELF [200] Allergies As of Date: 06/04/2018 Noted Allergy Reaction SEASONAL ALLERGIES 12/03/2012 14 - Other: See Comments Comments: Environmental-ragweed Date Reviewed: 06/04/2018 Reviewed by: Naye (Latasha Nuñez - Fully Assessed Reason for Visit: Diabetes [...] 3 COMP METABOLIC PANEL [SQCMP] Order #: [id number] FUTURE HGB A1C [YPYJA8G] Order #: [id number] FUTURE LIPID PANEL BASIC [SQLIPB] Order #: [id number] FUTURE ALBUMIN/CREAT RATIO RND UR [SQUACR] Order #: [id number] FUTURE Prescriptions as of 06/04/2018 Sig: ACETAMINOPHEN [...] TAB* TAKE (1/2) TABLET BY MOUTH TW* IN-ACID GAS RELIEF 80 MG CHEW* CHEW 1 [...] months with labs prior. Naye Nuñez APRN, [employer] Endocrinology [facility]/[address] [place] [address] Fax: Prescriptions ordered this encounter Disp Refills [...] 06/04/18 PROGRESS Observed: 06/04/2018 Status: COMPLETED Source: [place] 10:53 AM [facility] REPOSITORY O ID: [id number] Author: Naye Nicole) Levi Service: (none) Author Type: Nurse Practitioner [...] 03/05/2018 A1C 6.5 on 05/09/2018 Lives with [employer] [facility] Here with an employee of [employer]. Administers his own insulin. No on pureed diet Follows with [facility]. ? Known complications include: hyperlipidemia and [...] Social History Narrative Patient [place] with 24 hour supervision. [...] DAILY. Disp: 30 tablet Rfl: 5 citric arxy-ckrlfgmpdty-gwf carb (RENACIDIN) 1980.6 mg-59.4 mg-980.4mg/30mL irrigation USE 30ML INTRAVESICALRY VIA URINARY CATHETER 3 TIMES DAILY CLAMP 30MIN THEN DRAIN Disp: 270 mL Rfl: 5 COMPOUNDED PRESCRIPTION Please provide ARKKAY glucocard test strips to check blood sugar [...] TWICE DAILY. Disp: 30 tablet Rfl: 5 IN-ACID GAS RELIEF 80 mg chewable tablet CHEW [...] disease, with long-term current use of insulin ([facility]) (primary encounter diagnosis) Comment: glycemic control is above goal. A1C is 6.5 in the setting of anemia. Insulin adjustments made today. He [place] but mostly manages his own diabetes. Send [...] exercise efforts as able Naye Nuñez APRN, [employer] Endocrinology [facility] Office [facility]/[address], [address] [place], [place] [address] Fax: CNPBreana Observed: 06/04/2018 Status: COMPLETED Source: [place] 12:00 AM [facility] REPOSITORY Telephone (INTMWS) JARON MORSE ([id number]) 1980 M Date Time Provider Department 06/04/18 FRANCINE CLARK INTMWS During your visit today, we recorded the following information about you: Funmilayo Petersen, RN, RN 06/04/2018 12:08 PM Signed Elidia/[facility] calls, stating pt was seen in office on 05/31 for open wound and was referred to general surgery. Elidia asking if referral could be sent for Wound Center instead since pt is diabetic. Prefers [facility]. Please call Elidia back to schedule [phone] Georgi Lee APRN.INTELLIGENCE APPLICATIONS 06/04/2018 4:17 PM Addendum The area is likely a pilonidal cyst and he needs to see a surgeon, either our general surgery or a surgeon visit at the [facility] wound center. Culture results with some bacteria, can treat with antibiotic. Inquire re pharmacy Discussed with Francine Clark MD. Kassandra Hotte OCCUPATIONAL HEALTH MANAGER 06/04/2018 4:30 PM Signed Elidia notified of message below. She will get patient set up with general surgery as requested. Antibiotic can be sent to [facility]. Georgijody Lee APRN.BRIAN 06/04/2018 4:48 PM Signed Please assist with scheduling general surgery appt Will hold on antibiotic for now, will reserve in the event he develops cellulitis, abscess, or if with significant cellulitis after surgical drainage. 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 [facility] will call for the appointment with the surgeon so they make sure someone is there to take him. September Julissaakila 06/07/2018 12:54 PM Signed Spoke with nurse Cherise who said patient saw Hugh Abreu this morning. Allergies As of Date: 06/04/2018 Noted Allergy Reaction SEASONAL ALLERGIES 12/03/2012 14 - Other: See Comments Comments: Environmental-ragweed Date Reviewed: 06/04/2018 Reviewed by: Naye ([place]) Levi - Fully Assessed Reason for Visit: Referral for Wound Center [Other] Prescriptions as of 06/04/2018 Sig: ACETAMINOPHEN ER [...] MG TABLET TAKE ONE-HALF (1/2) TABLET AT* BENZONATATE 100 MG CAPSULE Take 2 capsules by mouth thre* Patient not taking: Reported on 05/31/2018 BISACODYL 10 MG RECTAL SUPPOS* 1 Suppository by RECTAL route* Patient not taking: Reported on 03/05/2018 BLOOD SUGAR DIAGNOSTIC STRIPS Test blood sugar(s) [...] (HUMAN RECOMBINANT) * INJECT 1MG INTRAMUSCULARLY IF* GLUCAGON (HUMAN RECOMBINANT) * Inject 1 mg intravenously one* GLUCOSE 4 GRAM CHEWABLE TABLET TAKE 4 [...] TAB* TAKE (1/2) TABLET BY MOUTH TW* IN-ACID GAS RELIEF 80 MG CHEW* CHEW 1 [...] to affect* Problem List As Of Date 06/04/2018 Noted [...] 2 severe obesity with serious comorbidity*INVALID FOR* Encounter Status:Closed by KASSANDRA RUEDA LPN on 06/05/18 SURGERY VISIT REPORT Observed: 05/31/2018 Status: F Source: [place] 12:27 PM [facility] REPOSITORY [facility] [address] [place] [address] OFFICE VISIT Date of Service: 05/29/18 MR#: [id number] Acct: [id number] Name: JARON MORSE Rep #: [id number] : 1980 Provider: Taylor Owens PA-C Age/Sex: 38/M Location: [facility] Status: Signed Intake Intake Visit Reasons: 1 mo FU Fisutal Creation 04/18 Log Deckman Required: No Is patient in pain?: Yes [...] Solution] 30 ml IR 0800,1600,199904/20/18 [History Confirmed 05/29/18] Fluoxetine [Prozac] 10 mg PO DAILY 04/20/18 [History Confirmed 05/29/18] Fluticasone 0.05% [Flonase Nasal [place]] 2 spray NASAL DAILY 04/20/18 [History Confirmed [...] MD PROGRESS Observed: 05/31/2018 Status: COMPLETED Source: [place] 10:33 AM [facility] [place] REPOSITORY O ID: [id number] Author: Georgi Lee (Cns) Service: (none) Author Type: Nurse Specialist Type: [...] Kidney Disease) Stage 4, Gfr 15-29 Ml/Min ([facility]) Generalized Dysmotility of Intestine Nephrogenic Diabetes Insipidus ([facility]) Seborrheic Dermatitis Allergic Rhinitis Dvt of Left Axillary Vein, Acute ([facility]) Presents today with a caregiver who provides much of the history. She reports a nurse came to do a physical assessment/w[place] of [place] yesterday noticed a problem in the coccyx [...] vein thrombosis (DVT) of right upper extremity ([facility]) 03/19/15 Diagnosed during hospital admission; coumadin started - Acute embolism and thrombosis of deep vein of right upper extremity ([facility]) 04/09/2015 - Acute gastritis without mention of [...] MILD 02/07/2005 - Presence of suprapubic catheter ([facility]) Dr. Frias - Retention of urine, unspecified [...] (1) TABLET BY MOUTH ONCE DAILY. citric rxkn-ykpkpgnyykf-gdh carb (RENACIDIN) 1980.6 mg-59.4 mg-980.4mg/30mL irrigation USE 30ML INTRAVESICALRY VIA URINARY CATHETER 3 TIMES DAILY CLAMP 30MIN THEN DRAIN COMPOUNDED PRESCRIPTION Please provide [facility] glucocard test strips to check blood sugar [...] TAKE (1/2) TABLET BY MOUTH TWICE DAILY. IN-ACID GAS RELIEF 80 mg chewable tablet CHEW [...] inches in diameter at proximal portion of juana cleft Neuro: Gait normal. Sensation grossly intact. [...] (H) 4.3 - 5.6 % Final Comment: [place] [employer] guidelines indicate that patients with HgbA1c in the range 5.7-6.4% are at increased risk for development of diabetes, and intervention by lifestyle modification may be beneficial. HgbA1c greater or equal to 6.5% is considered diagnostic of diabetes. 11/10/2017 7.5 (H) 4.3 - 5.6 % Final 03/15/2017 8.7 (H) 4.3 - 5.6 % Final Comment: [place] [employer] guidelines indicate that patients with HgbA1c in the range 5.7-6.4% are at increased risk for development of diabetes, and intervention by lifestyle modification may be beneficial. HgbA1c greater or equal to 6.5% is considered diagnostic of diabetes. 11/18/2016 8.8 (H) 4.3 - 5.6 % Final Comment: [place] [employer] guidelines indicate that patients with HgbA1c in the range 5.7-6.4% are at increased risk for development of diabetes, and intervention by lifestyle modification may be beneficial. HgbA1c greater or equal to 6.5% is considered diagnostic of diabetes. 08/09/2016 9.1 (H) 4.3 - 5.6 % Final Comment: [place] [employer] guidelines indicate that patients with [...] and agreed with the plan. Georgi Lee APRN.INTELLIGENCE APPLICATIONS WOUND Observed: 05/31/2018 Status: F Source: [place] CULTURE/STAIN 10:30 AM [facility] REPOSITORY Sp. Request/Comment: - Swab Smear Result - Moderate Gram positive cocci --> ABNORMAL ALERT Few --> ABNORMAL ALERT Gram positive bacilli --> ABNORMAL ALERT Rare Polymorphonuclear leukocytes Moderate Epithelial cells Culture Result - Moderate Actinomyces species --> ABNORMAL ALERT No susceptibility testing done. --> ABNORMAL ALERT Few skin natalie Performed By: #### WCUL #### [facility] [address] [place] [address] CNOV Observed: 05/31/2018 Status: COMPLETED Source: [place] 10:20 AM [facility] REPOSITORY Office Visit (INTMWS) JARON MORSE ([id number]) 1980 M Date Time Provider Department 05/31/18 10:20 AM GEORGI LEE (BRIAN) INTMWS During your visit today, we recorded [...] (H[facility]) Hydronephrosis Mild Intellectual Disabilities Suprapubic Catheter ([facility]) Ckd (Chronic Kidney Disease) Stage 4, Gfr 15-29 Ml/Min ([facility]) Generalized Dysmotility of Intestine Nephrogenic Diabetes Insipidus ([facility]) Seborrheic Dermatitis Allergic Rhinitis Dvt of Left Axillary Vein, Acute ([facility]) Presents today with a caregiver who provides much of the history. She reports a nurse came to do a physical assessment/[place] of [place] yesterday noticed a problem in the coccyx [...] vein thrombosis (DVT) of right upper extremity ([facility]) 03/19/15 Diagnosed during hospital admission; coumadin started - Acute embolism and thrombosis of deep vein of right upper extremity ([facility]) 04/09/2015 - Acute gastritis without mention of [...] MILD 02/07/2005 - Presence of suprapubic catheter ([facility]) Dr. Frias - Retention of urine, unspecified [...] (1) TABLET BY MOUTH ONCE DAILY. citric tcpr-gvcrswdbjvi-was carb (RENACIDIN) 1980.6 mg-59.4 mg-980.4mg/30mL irrigation USE 30ML INTRAVESICALRY VIA URINARY CATHETER 3 TIMES DAILY CLAMP 30MIN THEN DRAIN COMPOUNDED PRESCRIPTION Please provide [facility] glucocard test strips to check blood sugar [...] TAKE (1/2) TABLET BY MOUTH TWICE DAILY. IN-ACID GAS RELIEF 80 mg chewable tablet CHEW [...] inches in diameter at proximal portion of juana cleft Neuro: Gait normal. Sensation grossly intact. [...] (H) 4.3 - 5.6 % Final Comment: [place] [employer] guidelines indicate that patients with HgbA1c in the range 5.7-6.4% are at increased risk for development of diabetes, and intervention by lifestyle modification may be beneficial. HgbA1c greater or equal to 6.5% is considered diagnostic of diabetes. 11/10/2017 7.5 (H) 4.3 - 5.6 % Final 03/15/2017 8.7 (H) 4.3 - 5.6 % Final Comment: [place] [employer] guidelines indicate that patients with HgbA1c in the range 5.7-6.4% are at increased risk for development of diabetes, and intervention by lifestyle modification may be beneficial. HgbA1c greater or equal to 6.5% is considered diagnostic of diabetes. 11/18/2016 8.8 (H) 4.3 - 5.6 % Final Comment: [place] [employer] guidelines indicate that patients with HgbA1c in the range 5.7-6.4% are at increased risk for development of diabetes, and intervention by lifestyle modification may be beneficial. HgbA1c greater or equal to 6.5% is considered diagnostic of diabetes. 08/09/2016 9.1 (H) 4.3 - 5.6 % Final Comment: [place] [employer] guidelines indicate that patients with [...] 30 EachRfl: 1 CONSULT TO GENERAL SURGERY [9011] Order #: [id number] [facility] Order #: [id number]. #:[id number] Prescriptions as of 05/31/2018 Sig: ACETAMINOPHEN ER [...] TAB* TAKE (1/2) TABLET BY MOUTH TW* IN-ACID GAS RELIEF 80 MG CHEW* CHEW 1 [...] your clinician: Keep areas at top of cleft that [...] FISTULA/DIALYSIS GRAFT Observed: 05/29/2018 Status: F Source: [place] 4:32 PM [facility] REPOSITORY [facility] Cardiovascular Services [address] [place] [address] AV Fistula/Dialysis Graft Scan 05/29/18 1426 MR#: [id number] Acct: [id number] Name: JARON MORSE Rep #: [id number] : 1980 38 From: Hugh Abreu MD Attending Dr: Taylor Owens PA-C Status: REG CLI Ordering Dr: Taylor Owens PA-C Date: 05/29/18 Location: Sex: M C Admitted: RIGHT Inflow Art = 233/137 cm/s Inflow Vol Flow =282 cc/min Prox Anast =954/568 cm/s Prox Anast Vol Pamz=8504 cc/min Prox Gqjuu=988/141 cm/s. Prox Graft Vol Flow =1040 cc/min Mid Graft =102/61.5 cm/s Mid Graft Vol Nwjo=910 cc/min Distal Graft =107/69.7 cm/s Distal Graft Vol Flow= 859 cc/min Outflow at shoulder =109/70.7 cm/s Outflow ar shoulder Vol Flow=] 647 cc/min. Interpretation Summary No evidence for right arm venous thrombosis. Volume flow throughout the fistula appears to be quite adequate to slightly high flow. No focal areas of stenosis noted. Ordering Physician: Taylor Owens PA-C Performed By: Roger Hoyt Brown 05/29/18 1631 Date Hugh Abreu MD CC: Taylor Owens PA-C; Francine Clark MD Date Dictated: 05/29/18 1426 Date Transcribed: 05/29/18 163 [employer] Consultant: Signed PROGRESS Observed: 05/22/2018 Status: COMPLETED Source: [place] 6:29 PM [facility] [place] REPOSITORY HNO ID: [id number] Author: Francine Clark Service: (none) Author Type: Physician Type: Progress Notes Filed: 06/08/2018 12:59 AM Note Text: Patient presents with: Recheck: Follow up SUBJECTIVE: Jaron Morse is a 38 year old year old gentleman here today for follow up appointment for review of medical conditions. Right arm throbbing worse at night since August. All the time pounds. Shoulder down to hand at times. Not able to sleep in bed because makes arm hurt and throb. Sleeps in recliner--sleeps okay there. Arthritis med not helping anymore. Tylenol ES. Hurts to cross arms in front. Better if arms relaxed at sides Some weakness in arms. Hematuria and UTIs noted. Has Suprapubic cather. Reviewed CKD issues. Noted [facility] worried that he needs dialysis now but he has not symptoms of ESRD requiring HD yet. Denies severe nausea and vomiting; no problems with lethargy; has been eating well. Labs as noted below--no persistent severe hyperkalemia. Also not signs of fluid retention warranting start of dialysis at this time. PAST MEDICAL HISTORY Diagnosis Date - Acute deep vein thrombosis (DVT) of right upper extremity ([facility]) 03/19/15 Diagnosed during hospital admission; coumadin started - Acute embolism and thrombosis of deep vein of right upper extremity ([facility]) 04/09/2015 - Acute gastritis without mention of [...] MILD 02/07/2005 - Presence of suprapubic catheter ([facility]) Dr. Frias - Retention of urine, unspecified 08/20/2007 - Type I (juvenile type) diabetes mellitus without mention of complication, not stated as uncontrolled 02/04/2005 Dr. Olmedo Current Outpatient Prescriptions: COMPOUNDED PRESCRIPTION Leg cath secure device. (Z92.89) Chronic indwelling Franco catheter lidocaine (LIDODERM) 5 % Apply 1 Patch as directed every 24 hours. Remove old patch prior to placing new patch. Location: right shoulder glucagon (GLUCAGON EMERGENCY KIT, HUMAN,) 1 mg solr INJECT 1MG INTRAMUSCULARLY IF UNCONSCIOUS, UNABLE TO FOLLOW SIMPLE INSTRUCTIONS OR SEIZURES TIMES 1 DOSE metoprolol tartrate, short acting, (LOPRESSOR) 25 mg tablet TAKE (1/2) TABLET BY MOUTH TWICE DAILY. VITAMIN C 1,000 mg tablet TAKE (1) TABLET BY MOUTH ONCE DAILY. melatonin 3 mg tablet Take 1 tablet by mouth daily at bedtime. SENNA 8.6 mg tab TAKE (1) TABLET BY MOUTH TWICE A DAY. polyethylene glycol 3350 (MIRALAX, GLYCOLAX) 17 gram/dose powder MIX 1 CAPFUL (17 GMS) IN 8 OZ OF WATER 2 TIMES DAILY MIX 1 CAPFUL (17GRAMS) IN 8 OUNCES OF WATER AND TAKE BY MOUTH AT 8PM A 3RD DOSE IF N atorvastatin (LIPITOR) 10 mg tablet TAKE ONE-HALF (1/2) TABLET AT BEDTIME. cholecalciferol (VITAMIN D3) 5,000 unit tab TAKE (1) TABLET BY MOUTH ONCE DAILY. loratadine (CLARITIN) 10 mg tablet TAKE (1) TABLET BY MOUTH ONCE DAILY. benzonatate (TESSALON PERLES) 100 mg capsule Take 2 capsules by mouth three times daily as needed. ofloxacin (FLOXIN) 0.3 % otic solution Use 5 Drops in the right ear twice daily. glucagon, human recombinant, (GLUCAGON EMERGENCY KIT, HUMAN,) 1 mg injection Inject 1 mg intravenously one time only for 1 dose. insulin lispro (HUMALOG KWIKPEN INSULIN) 100 unit/mL inpn INJECT 5-8 UNITS SUBCUTANEOUSLY WITH MEALS AND USE PER SLIDING SCALE SCALE DIRECTED insulin glargine (LANTUS SOLOSTAR U-100 INSULIN) 100 unit/mL (3 mL) inpn 14 units in the AM and 10 units at HS blood sugar diagnostic (BLOOD GLUCOSE TEST) test strip Test blood sugar(s) 8 times daily. Dx: Type 1 DM - Uncontrolled E10.69 Insulin: Yes Lancets lancets Test blood sugar(s) 8 times daily. Dx: Type 2 DM - Uncontrolled E11.65 Insulin: Yes insulin needles, DISPOSABLE, (ULTICARE PEN NEEDLE) 31 gauge x 5/16 ndle Use to inject insulin 5 times daily. ferrous sulfate 325 mg (65 mg iron) tablet Take 325 mg by mouth twice daily. Dextromethorphan-guaiFENesin (ROBITUSSIN DM) 10-200 mg/5 mL liqd Take 5-10 mL by mouth every 6 hours as needed. for cough fluticasone (FLONASE) 50 mcg/actuation nasal spray USE 2 SPRAYS IN EACH NOSTRIL ONCE DAILY. RINSE MOUTH AFTER USE. senna (SENNA) 8.6 mg tab Take 8.6 mg by mouth twice daily. glucose 4 gram chewable tablet TAKE 4 TABLETS BY MOUTH NEEDED FOR LOW BLOOD SUGAR BELOW 70 FLUoxetine (PROZAC) 20 mg capsule Take 30 mg by mouth once daily. polyethylene glycol 3350 (MIRALAX, GLYCOLAX) 17 gram/dose powder Mix 1 capful (17 GMS) in 8 oz of water and take by mouth at 8 pm as 3rd dose if no BM by 8pm. RENACIDIN 6.602-3.268 gram/100 mL irrigation USE 30ML INTRAVESICALRY VIA URINARY CATHETER 3 TIMES DAILY CLAMP 30MIN THEN DRAIN carbamide peroxide (DEBROX) 6.5 % otic solution Use 5 Drops in both ears twice daily. for 5 days then discontinue ketoconazole (NIZORAL) 2 % shampoo APPLY LATHER TO AFFECTED SKIN ON FACE AND RINSE OFF AFTER 2-5 MIN. USE DAILY NEEDED aspirin, enteric coated (ASPIRIN, ENTERIC COATED) 81 mg EC tablet TAKE (1) TABLET BY MOUTH DAILY IN THE MORNING. pantoprazole DR (PROTONIX) 40 mg tablet TAKE 1 TABLET BY MOUTH ONCE DAILY 1/2 HR BEFORE BREAKFAST olopatadine (PAZEO) 0.7 % drop Use 1 Drop in eyes once daily. senna (SENNA LAX) 8.6 mg tab Take 1 tablet by mouth twice daily. oxybutynin (DITROPAN) 5 mg tablet Take 1 tablet by mouth as needed (once daily as needed for bladder spasms). QUEtiapine (SEROQUEL) 200 mg tablet TAKE (1) TABLET BY MOUTH TWICE A DAY. QUEtiapine (SEROQUEL) 100 mg tablet TAKE 1 TABLET BY MOUTH ONCE DAILY AT 5 PM COMPOUNDED PRESCRIPTION Please provide [facility] glucocard test strips to check blood sugar four to six Times a day acetaminophen (TYLENOL ARTHRITIS PAIN) 650 mg CR tablet Take 1 tablet by mouth every 8 hours as needed. ammonium lactate (LAC-HYDRIN) 12 % lotion APPLY TO AFFECTED AREAS TWICE DAILY. APPLY TO FEET AND LOWER LEGS albuterol HFA (PROVENTIL HFA, VENTOLIN HFA) 90 mcg/actuation inhaler Inhale 2 Puffs as instructed every 4 hours as needed. apixaban (ELIQUIS) 2.5 mg tab tab(s) Take 1 tablet by mouth twice daily. (Patient not taking: Reported on 03/05/2018 ) IN-ACID GAS RELIEF 80 mg chewable tablet CHEW 1 TABLET BY MOUTH WITH MEALS AND AT BEDTIME ammonium lactate (LAC-HYDRIN) 12 % cream Apply 1 application to affected area twice daily. bisacodyl (LAXATIVE, BISACODYL,) 10 mg supp 1 Suppository by RECTAL route once daily as needed. for constipation (Patient not taking: Reported on 03/05/2018 ) docusate sodium (COLACE) 100 mg capsule Take 1 capsule by mouth twice daily as needed for Constipation. No current facility-administered medications for this visit. OBJECTIVE: BP 116/82 Pulse 84 Resp 20 Last 5 Encounter BP Readings: Date: BP: 05/22/2018 116/82 04/27/2018 122/80 03/05/2018 119/71 02/20/2018 114/80 02/06/2018 102/60 Last 5 Encounter Wt Readings: Date: Wt: 04/27/2018 107.5 kg (237 lb) 03/05/2018 0 kg (0 lb) 02/20/2018 101.6 kg (224 lb) 02/06/2018 101.6 kg (224 lb) 12/25/2017 98.9 kg (218 lb) PHYSICAL EXAM: General Appearance: Well appearing, alert, in no acute distress, well-hydrated, well nourished. Lungs: lungs clear to auscultation. No wheezing, rhonchi, rales. Heart: RRR without murmur, gallop, or rubs. No ectopy. Extremities: No deformities, no skin discoloration, clubbing or cyanosis. Tender right upper arm. Mild bilateral lower extremities edema Decreased ROM at shoulder--not able to abduct past 90 degrees right shoulder. Component Latest Ref Rng AND Units 11/18/2016 03/15/2017 11/10/2017 11/10/2017 12/26/2017 04/26/2018 05/09/2018 8:10 AM 8:10 AM WBC 3.70 - 11.00 k/uL 8.60 6.96 7.22 5.49 RBC 4.20 - 6.00 m/uL 4.06 (L) 4.33 2.77 (L) 3.20 (L) Hemoglobin 13.0 - 17.0 g/dL 12.5 (L) 13.8 8.9 (L) 10.4 (L) Hematocrit 39.0 - 51.0 % 39.7 42.7 28.8 (L) 33.8 (L) MCV 80.0 - 100.0 fL 97.8 98.6 104.0 (H) 105.6 (H) MCH 26.0 - 34.0 pG 30.8 31.9 32.1 32.5 MCHC 30.5 - 36.0 g/dL 31.5 32.3 30.9 30.8 RDW-CV 11.5 - 15.0 % 15.3 (H) 13.1 13.7 14.5 Platelet Count 150 - 400 k/uL 198 217 246 202 MPV 9.0 - 12.7 fL 11.3 11.6 11.4 11.4 Neut% % 64.2 58.5 Abs Neut (ANC) 1.45 - 7.50 k/uL 4.47 3.19 Lymph% % 25.6 27.3 Abs Lymph 1.00 - 4.00 k/uL 1.78 1.50 [place]% % 7.5 11.3 Abs [place] <0.87 k/uL 0.52 0.62 Eosin% % 2.4 2.7 Abs Eosin <0.46 k/uL 0.17 0.15 Baso% % 0.3 0.2 Abs Baso <0.11 k/uL <0.03 <0.03 Nucleated Reds 0 /100 WBC 0.0 0.0 Absolute nRBC <0.01 k/uL <0.01 <0.01 <0.01 <0.01 Diff Type Auto Diff Auto Diff Protein, Total 6.3 - 8.0 g/dL 7.3 7.4 8.1 (H) 8.7 (H) 7.4 Albumin 3.9 - 4.9 g/dL 3.8 (L) 4.0 3.8 (L) 4.3 3.9 Calcium 8.5 - 10.2 mg/dL 9.2 9.0 8.7 9.0 9.5 8.8 Bilirubin, Total 0.2 - 1.3 mg/dL 0.4 0.3 0.2 0.3 0.2 Alkaline Phosphatase 38 - 113 U/L 123 (H) 128 (H) 99 87 133 (H) AST 14 - 40 U/L 35 34 26 22 23 Glucose 74 - 99 mg/dL 263 (H) 252 (H) 202 (H) 209 (H) 233 (H) 283 (H) BUN 9 - 24 mg/dL 40 (H) 38 (H) 78 (H) 77 (H) 57 (H) 64 (H) Creatinine 0.73 - 1.22 mg/dL 2.79 (H) 2.64 (H) 3.91 (H) 3.84 (H) 3.76 (H) 3.84 (H) Sodium 136 - 144 mmol/L 138 133 (L) 135 (L) 136 141 136 Potassium 3.7 - 5.1 mmol/L 5.2 (H) 5.1 5.2 (H) 5.2 (H) 5.5 (H) 5.7 (H) Chloride 97 - 105 mmol/L 99 97 98 99 100 99 CO2 22 - 30 mmol/L 22 24 20 (L) 21 (L) 23 24 Anion Gap 9 - 18 mmol/L 17 12 17 16 18 13 ALT 10 - 54 U/L 17 29 18 23 16 eGFR- 32 34 21 22 22 22 eGFR-All Other Races . 26 28 18 18 18 18 Triglyceride 30 - 149 mg/dL 245 (H) Cholesterol, Total 100 - 199 mg/dL 126 HDL Cholesterol >45 mg/dL 26 (L) VLDL Cholesterol 6 - 40 mg/dL 49 (H) LDL Cholesterol 60 - 129 mg/dL 51 (L) Fasting Time hrs 0 TC:HDL Ratio 1.00 - 5.00 4.85 LDL:HDL Ratio 0.50 - 3.55 1.96 Non HDL Cholesterol 90 - 159 mg/dL 100 Creatinine, Ur Random (UCRR) 20 - 300 mg/dL 88.6 Albumin, Urine Random 0.0 - 23.0 mg/L 53.6 (H) Albumin/Creat Ratio 0 - 30 mg/g 60 (H) Hemoglobin A1C 4.3 - 5.6 % 8.8 (H) 8.7 (H) 7.5 (H) 6.5 (H) Estimated Average Glucose mg/dL 206 203 169 140 Noted labs done at [facility] showed potassium down to 5.2 with BUN 76 and Cr 4.73 ASSESSMENT AND PLAN: Encounter Diagnosis ICD-10-CM 1. Recurrent UTI N39.0 URINALYSIS WITH MICROSCOPIC URINE CULTURE 2. CKD (chronic kidney disease) stage 4, GFR 15-29 ml/min ([facility]) N18.4 3. Gross hematuria R31.0 URINALYSIS WITH MICROSCOPIC URINE CULTURE 4. Seborrheic dermatitis L21.9 ketoconazole (NIZORAL) 2 % shampoo eyebrows and devlin and mustache area, as well as face 5. Suprapubic catheter ([facility]) Z93.59 6. Mild intellectual disabilities F70 7. Type 1 diabetes mellitus with stage 4 chronic kidney disease ([facility]) E10.22 N18.4 8. Right arm pain M79.601 Above issues addressed with patient. Patient involved in shared decision making for management of medical issues. History and medications reviewed. Epic updated as needed Refills taken care of and meds adjusted as indicated after reviewed history, exam and labs. Health Maintenance reviewed. Updated record and/or ordered tests as recorded. Encouraged on efforts at healthy diet and regular exercise and adequate sleep. Needs to keep working on diet and exercise with lifestyle changes for effective weight loss as well as control of DM, and control of BP and lipids. 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 Therefore, patient does not need to be admitted to the hospital at this time. Red flag symptoms discussed. Continue current management with routine labs. Encouraged on staying adequately hydrated, avoiding high potassium foods. Follow up with urologist on issue with catheter and hematuria. Continue management of seborrheic dermatitis. Nizoral shampoo as discussed. Follows with endocrinology for DM. HgA1C has improved. The majority of the visit was spent counseling and/or coordinating care for the patient. Ybkb-qh-xegt time was at least 25 minutes. Francine Clark MD CNOV Observed: 05/22/2018 Status: COMPLETED Source: [place] 6:00 PM [facility] REPOSITORY Office Visit (INTMWS) JARON MORSE ([id number]) 1980 M Date Time Provider Department 05/22/18 6:00 PM FRANCINE CLARK INTAdenikeWS During your visit today, we recorded the following information about you: Pulse Respiration Blood pressure 84/minute 20/minute 116/82 Francine Clark MD 06/08/2018 12:59 AM Signed Patient presents with: Recheck: Follow up SUBJECTIVE: Jaron Morse is a 38 year old year old gentleman here today for follow up appointment for review of medical conditions. Right arm throbbing worse at night since August. All the time pounds. Shoulder down to hand at times. Not able to sleep in bed because makes arm hurt and throb. Sleeps in recliner--sleeps okay there. Arthritis med not helping anymore. Tylenol ES. Hurts to cross arms in front. Better if arms relaxed at sides Some weakness in arms. Hematuria and UTIs noted. Has Suprapubic cather. Reviewed CKD issues. Noted [facility] worried that he needs dialysis now but he has not symptoms of ESRD requiring HD yet. Denies severe nausea and vomiting; no problems with lethargy; has been eating well. Labs as noted below--no persistent severe hyperkalemia. Also not signs of fluid retention warranting start of dialysis at this time. PAST MEDICAL HISTORY Diagnosis [...] uncontrolled 02/04/2005 Dr. Olmedo Current Outpatient Prescriptions: COMPOUNDED PRESCRIPTION Leg cath secure device. (Z92.89) Chronic indwelling Franco catheter lidocaine (LIDODERM) 5 % Apply 1 Patch as directed every 24 hours. Remove old patch prior to placing new patch. Location: right shoulder glucagon (GLUCAGON EMERGENCY KIT, HUMAN,) 1 mg solr INJECT 1MG INTRAMUSCULARLY IF UNCONSCIOUS, UNABLE TO FOLLOW SIMPLE INSTRUCTIONS OR SEIZURES TIMES 1 DOSE metoprolol tartrate, short acting, (LOPRESSOR) 25 mg tablet TAKE (1/2) TABLET BY MOUTH TWICE DAILY. VITAMIN C 1,000 mg tablet TAKE (1) TABLET BY MOUTH ONCE DAILY. melatonin 3 mg tablet Take 1 tablet by mouth daily at bedtime. SENNA 8.6 mg tab TAKE (1) TABLET BY MOUTH TWICE A DAY. polyethylene glycol 3350 (MIRALAX, GLYCOLAX) 17 gram/dose powder MIX 1 CAPFUL (17 GMS) IN 8 OZ OF WATER 2 TIMES DAILY MIX 1 CAPFUL (17GRAMS) IN 8 OUNCES OF WATER AND TAKE BY MOUTH AT 8PM A 3RD DOSE IF N atorvastatin (LIPITOR) 10 mg tablet TAKE ONE-HALF (1/2) TABLET AT BEDTIME. cholecalciferol (VITAMIN D3) 5,000 unit tab TAKE (1) TABLET BY MOUTH ONCE DAILY. loratadine (CLARITIN) 10 mg tablet TAKE (1) TABLET BY MOUTH ONCE DAILY. benzonatate (TESSALON PERLES) 100 mg capsule Take 2 capsules by mouth three times daily as needed. ofloxacin (FLOXIN) 0.3 % otic solution Use 5 Drops in the right ear twice daily. glucagon, human recombinant, (GLUCAGON EMERGENCY KIT, HUMAN,) 1 mg injection Inject 1 mg intravenously one time only for 1 dose. insulin lispro (HUMALOG KWIKPEN INSULIN) 100 unit/mL inpn INJECT 5-8 UNITS SUBCUTANEOUSLY WITH MEALS AND USE PER SLIDING SCALE SCALE DIRECTED insulin glargine (LANTUS SOLOSTAR U-100 INSULIN) 100 unit/mL (3 mL) inpn 14 units in the AM and 10 units at HS blood sugar diagnostic (BLOOD GLUCOSE TEST) test strip Test blood sugar(s) 8 times daily. Dx: Type 1 DM - Uncontrolled E10.69 Insulin: Yes Lancets lancets Test blood sugar(s) 8 times daily. Dx: Type 2 DM - Uncontrolled E11.65 Insulin: Yes insulin needles, DISPOSABLE, (ULTICARE PEN NEEDLE) 31 gauge x 5/16 ndle Use to inject insulin 5 times daily. ferrous sulfate 325 mg (65 mg iron) tablet Take 325 mg by mouth twice daily. Dextromethorphan-guaiFENesin (ROBITUSSIN DM) 10-200 mg/5 mL liqd Take 5-10 mL by mouth every 6 hours as needed. for cough fluticasone (FLONASE) 50 mcg/actuation nasal spray USE 2 SPRAYS IN EACH NOSTRIL ONCE DAILY. RINSE MOUTH AFTER USE. senna (SENNA) 8.6 mg tab Take 8.6 mg by mouth twice daily. glucose 4 gram chewable tablet TAKE 4 TABLETS BY MOUTH NEEDED FOR LOW BLOOD SUGAR BELOW 70 FLUoxetine (PROZAC) 20 mg capsule Take 30 mg by mouth once daily. polyethylene glycol 3350 (MIRALAX, GLYCOLAX) 17 gram/dose powder Mix 1 capful (17 GMS) in 8 oz of water and take by mouth at 8 pm as 3rd dose if no BM by 8pm. RENACIDIN 6.602-3.268 gram/100 mL irrigation USE 30ML INTRAVESICALRY VIA URINARY CATHETER 3 TIMES DAILY CLAMP 30MIN THEN DRAIN carbamide peroxide (DEBROX) 6.5 % otic solution Use 5 Drops in both ears twice daily. for 5 days then discontinue ketoconazole (NIZORAL) 2 % shampoo APPLY LATHER TO AFFECTED SKIN ON FACE AND RINSE OFF AFTER 2-5 MIN. USE DAILY NEEDED aspirin, enteric coated (ASPIRIN, ENTERIC COATED) 81 mg EC tablet TAKE (1) TABLET BY MOUTH DAILY IN THE MORNING. pantoprazole DR (PROTONIX) 40 mg tablet TAKE 1 TABLET BY MOUTH ONCE DAILY 1/2 HR BEFORE BREAKFAST olopatadine (PAZEO) 0.7 % drop Use 1 Drop in eyes once daily. senna (SENNA LAX) 8.6 mg tab Take 1 tablet by mouth twice daily. oxybutynin (DITROPAN) 5 mg tablet Take 1 tablet by mouth as needed (once daily as needed for bladder spasms). QUEtiapine (SEROQUEL) 200 mg tablet TAKE (1) TABLET BY MOUTH TWICE A DAY. QUEtiapine (SEROQUEL) 100 mg tablet TAKE 1 TABLET BY MOUTH ONCE DAILY AT 5 PM COMPOUNDED PRESCRIPTION Please provide [facility] glucocard test strips to check blood sugar four to six Times a day acetaminophen (TYLENOL ARTHRITIS PAIN) 650 mg CR tablet Take 1 tablet by mouth every 8 hours as needed. ammonium lactate (LAC-HYDRIN) 12 % lotion APPLY TO AFFECTED AREAS TWICE DAILY. APPLY TO FEET AND LOWER LEGS albuterol HFA (PROVENTIL HFA, VENTOLIN HFA) 90 mcg/actuation inhaler Inhale 2 Puffs as instructed every 4 hours as needed. apixaban (ELIQUIS) 2.5 mg tab tab(s) Take 1 tablet by mouth twice daily. (Patient not taking: Reported on 03/05/2018 ) IN-ACID GAS RELIEF 80 mg chewable tablet CHEW 1 TABLET BY MOUTH WITH MEALS AND AT BEDTIME ammonium lactate (LAC-HYDRIN) 12 % cream Apply 1 application to affected area twice daily. bisacodyl (LAXATIVE, BISACODYL,) 10 mg supp 1 Suppository by RECTAL route once daily as needed. for constipation (Patient not taking: Reported on 03/05/2018 ) docusate sodium (COLACE) 100 mg capsule Take 1 capsule by mouth twice daily as needed for Constipation. No current facility-administered medications for this visit. OBJECTIVE: BP 116/82 Pulse 84 Resp 20 Last 5 Encounter BP Readings: Date: BP: 05/22/2018 116/82 04/27/2018 122/80 03/05/2018 119/71 02/20/2018 114/80 02/06/2018 102/60 Last 5 Encounter Wt Readings: Date: Wt: 04/27/2018 107.5 kg (237 lb) 03/05/2018 0 kg (0 lb) 02/20/2018 101.6 kg (224 lb) 02/06/2018 101.6 kg (224 lb) 12/25/2017 98.9 kg (218 lb) PHYSICAL EXAM: General Appearance: Well appearing, alert, in no acute distress, well-hydrated, well nourished. Lungs: lungs clear to auscultation. No wheezing, rhonchi, rales. Heart: RRR without murmur, gallop, or rubs. No ectopy. Extremities: No deformities, no skin discoloration, clubbing or cyanosis. Tender right upper arm. Mild bilateral lower extremities edema Decreased ROM at shoulder--not able to abduct past 90 degrees right shoulder. Component Latest Ref Rng AND Units 11/18/2016 03/15/2017 11/10/2017 11/10/2017 12/26/2017 04/26/2018 05/09/2018 8:10 AM 8:10 AM WBC 3.70 - 11.00 k/uL 8.60 6.96 7.22 5.49 RBC 4.20 - 6.00 m/uL 4.06 (L) 4.33 2.77 (L) 3.20 (L) Hemoglobin 13.0 - 17.0 g/dL 12.5 (L) 13.8 8.9 (L) 10.4 (L) Hematocrit 39.0 - 51.0 % 39.7 42.7 28.8 (L) 33.8 (L) MCV 80.0 - 100.0 fL 97.8 98.6 104.0 (H) 105.6 (H) MCH 26.0 - 34.0 pG 30.8 31.9 32.1 32.5 MCHC 30.5 - 36.0 g/dL 31.5 32.3 30.9 30.8 RDW-CV 11.5 - 15.0 % 15.3 (H) 13.1 13.7 14.5 Platelet Count 150 - 400 k/uL 198 217 246 202 MPV 9.0 - 12.7 fL 11.3 11.6 11.4 11.4 Neut% % 64.2 58.5 Abs Neut (ANC) 1.45 - 7.50 k/uL 4.47 3.19 Lymph% % 25.6 27.3 Abs Lymph 1.00 - 4.00 k/uL 1.78 1.50 [place]% % 7.5 11.3 Abs [place] <0.87 k/uL 0.52 0.62 Eosin% % 2.4 2.7 Abs Eosin <0.46 k/uL 0.17 0.15 Baso% % 0.3 0.2 Abs Baso <0.11 k/uL <0.03 <0.03 Nucleated Reds 0 /100 WBC 0.0 0.0 Absolute nRBC <0.01 k/uL <0.01 <0.01 <0.01 <0.01 Diff Type Auto Diff Auto Diff Protein, Total 6.3 - 8.0 g/dL 7.3 7.4 8.1 (H) 8.7 (H) 7.4 Albumin 3.9 - 4.9 g/dL 3.8 (L) 4.0 3.8 (L) 4.3 3.9 Calcium 8.5 - 10.2 mg/dL 9.2 9.0 8.7 9.0 9.5 8.8 Bilirubin, Total 0.2 - 1.3 mg/dL 0.4 0.3 0.2 0.3 0.2 Alkaline Phosphatase 38 - 113 U/L 123 (H) 128 (H) 99 87 133 (H) AST 14 - 40 U/L 35 34 26 22 23 Glucose 74 - 99 mg/dL 263 (H) 252 (H) 202 (H) 209 (H) 233 (H) 283 (H) BUN 9 - 24 mg/dL 40 (H) 38 (H) 78 (H) 77 (H) 57 (H) 64 (H) Creatinine 0.73 - 1.22 mg/dL 2.79 (H) 2.64 (H) 3.91 (H) 3.84 (H) 3.76 (H) 3.84 (H) Sodium 136 - 144 mmol/L 138 133 (L) 135 (L) 136 141 136 Potassium 3.7 - 5.1 mmol/L 5.2 (H) 5.1 5.2 (H) 5.2 (H) 5.5 (H) 5.7 (H) Chloride 97 - 105 mmol/L 99 97 98 99 100 99 CO2 22 - 30 mmol/L 22 24 20 (L) 21 (L) 23 24 Anion Gap 9 - 18 mmol/L 17 12 17 16 18 13 ALT 10 - 54 U/L 17 29 18 23 16 eGFR- 32 34 21 22 22 22 eGFR-All Other Races . 26 28 18 18 18 18 Triglyceride 30 - 149 mg/dL 245 (H) Cholesterol, Total 100 - 199 mg/dL 126 HDL Cholesterol >45 mg/dL 26 (L) VLDL Cholesterol 6 - 40 mg/dL 49 (H) LDL Cholesterol 60 - 129 mg/dL 51 (L) Fasting Time hrs 0 TC:HDL Ratio 1.00 - 5.00 4.85 LDL:HDL Ratio 0.50 - 3.55 1.96 Non HDL Cholesterol 90 - 159 mg/dL 100 Creatinine, Ur Random (UCRR) 20 - 300 mg/dL 88.6 Albumin, Urine Random 0.0 - 23.0 mg/L 53.6 (H) Albumin/Creat Ratio 0 - 30 mg/g 60 (H) Hemoglobin A1C 4.3 - 5.6 % 8.8 (H) 8.7 (H) 7.5 (H) 6.5 (H) Estimated Average Glucose mg/dL 206 203 169 140 Noted labs done at [facility] showed potassium down to 5.2 with BUN 76 and Cr 4.73 ASSESSMENT AND PLAN: Encounter Diagnosis ICD-10-CM 1. Recurrent UTI N39.0 URINALYSIS WITH MICROSCOPIC URINE CULTURE 2. CKD (chronic kidney disease) stage 4, GFR 15-29 ml/min ([facility]) N18.4 3. Gross hematuria R31.0 URINALYSIS WITH MICROSCOPIC URINE CULTURE 4. Seborrheic dermatitis L21.9 ketoconazole (NIZORAL) 2 % shampoo eyebrows and devlin and mustache area, as well as face 5. Suprapubic catheter ([facility]) Z93.59 6. Mild intellectual disabilities F70 7. Type 1 diabetes mellitus with stage 4 chronic kidney disease ([facility] [facility]) E10.22 N18.4 8. Right arm pain M79.601 Above issues addressed with patient. Patient involved in shared decision making for management of medical issues. History and medications reviewed. Epic updated as needed Refills taken care of and meds adjusted as indicated after reviewed history, exam and labs. Health Maintenance reviewed. Updated record and/or ordered tests as recorded. Encouraged on efforts at healthy diet and regular exercise and adequate sleep. Needs to keep working on diet and exercise with lifestyle changes for effective weight loss as well as control of DM, and control of BP and lipids. 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 Therefore, patient does not need to be admitted to the hospital at this time. Red flag symptoms discussed. Continue current management with routine labs. Encouraged on staying adequately hydrated, avoiding high potassium foods. Follow up with urologist on issue with catheter and hematuria. Continue management of seborrheic dermatitis. Nizoral shampoo as discussed. Follows with endocrinology for DM. HgA1C has improved. The majority of the visit was spent counseling and/or coordinating care for the patient. Rtht-wx-[id number] time was at least 25 minutes. Francine Clark MD Referring Provider: SELF [200] Allergies As of Date: 05/22/2018 Noted Allergy Reaction SEASONAL ALLERGIES 12/03/2012 14 - Other: See Comments Comments: Environmental-ragweed Date Reviewed: 05/22/2018 Reviewed by: Virginia Manuel LPN - Fully Assessed Reason for Visit: Recheck [92] Cmt: Follow up Primary Visit Diagnosis:Recurrent UTI [N39.0] Other Visit Diagnoses:CKD (chronic kidney disease) stage 4, GFR 15-29 ml/min (HCC) [N18.4] Gross hematuria [R31.0] Seborrheic dermatitis [L21.9] Comment:eyebrows and devlin and mustache area, as well as face Suprapubic catheter (HCC) [Z93.59] Mild intellectual disabilities [F70] Type 1 diabetes mellitus with stage 4 chronic kidney disease (HCC) [E10.22, N18.4] Right arm pain [M79.601] Order(s):URINALYSIS WITH MICROSCOPIC [SQUAWMIC] Order #: [id number] STANDING URINE CULTURE [SQURCUL] Order #: [id number] STANDING ketoconazole (NIZORAL) 2 % shampooAPPLY LATHER TO AFFECTED SKIN ON FACE AND RINSE OFF AFTER 2-5 MIN. USE DAILY NEEDEDDisp: 120 mLRfl: 11 Prescriptions as of 05/22/2018 Sig: BENZONATATE 100 MG CAPSULE Take 2 capsules by mouth thre* Patient not taking: Reported on 05/31/2018 BLOOD SUGAR DIAGNOSTIC STRIPS Test blood sugar(s) 8 times d* CARBAMIDE PEROXIDE 6.5 % EAR * Use 5 Drops in both ears twic* COMPOUNDED PRESCRIPTION Please provide ARKKAY glucoca* COMPOUNDED PRESCRIPTION Leg cath secure device. (Z92* GLUCAGON (HUMAN RECOMBINANT) * Inject 1 mg intravenously one* KETOCONAZOLE 2 % SHAMPOO APPLY LATHER TO AFFECTED SKIN* LANCETS Test blood sugar(s) 8 times d* OFLOXACIN 0.3 % EAR DROPS Use 5 Drops in the right ear * SENNOSIDES 8.6 MG TABLET Take 1 tablet by mouth twice * SENNOSIDES 8.6 MG TABLET Take 8.6 mg by mouth twice da* X ASPIRIN 81 MG TABLET,DELAYED * TAKE (1) TABLET BY MOUTH JACQUELIN* X ATORVASTATIN 10 MG TABLET TAKE ONE-HALF (1/2) TABLET AT* X CHOLECALCIFEROL (VITAMIN D3) * TAKE (1) TABLET BY MOUTH ONCE* X DEXTROMETHORPHAN-GUAIFENESIN * Take 5-10 mL by mouth every 6* X FERROUS SULFATE 325 MG (65 MG* Take 325 mg by mouth twice da* X FLUOXETINE 20 MG CAPSULE Take 30 mg by mouth once jacquelin* X FLUTICASONE 50 MCG/ACTUATION * USE 2 SPRAYS IN EACH NOSTRIL * X GLUCAGON (HUMAN RECOMBINANT) * INJECT 1MG INTRAMUSCULARLY IF* X GLUCOSE 4 GRAM CHEWABLE TABLET TAKE 4 TABLETS BY MOUTH NE* X INSULIN GLARGINE (U-100) 100 * 14 units in the AM and 10 uni* X INSULIN LISPRO (U-100) 100 UN* INJECT 5-8 UNITS SUBCUTANEOUS* X PEN NEEDLE, DIABETIC 31 GAUGE* Use to inject insulin 5 times* X LIDOCAINE 5 % TOPICAL PATCH Apply 1 Patch as directed kendal* X LORATADINE 10 MG TABLET TAKE (1) TABLET BY MOUTH ONCE* X MELATONIN 3 MG TABLET Take 1 tablet by mouth daily * X METOPROLOL TARTRATE 25 MG TAB* TAKE (1/2) TABLET BY MOUTH TW* X OLOPATADINE 0.7 % EYE DROPS Use 1 Drop in eyes once daily. X OXYBUTYNIN CHLORIDE 5 MG TABL* Take 1 tablet by mouth as nee* X PANTOPRAZOLE 40 MG TABLET,DEL* TAKE 1 TABLET BY MOUTH ONCE D* X POLYETHYLENE GLYCOL 3350 17 G* MIX 1 CAPFUL (17 GMS) IN 8 OZ* X QUETIAPINE 100 MG TABLET TAKE 1 TABLET BY MOUTH ONCE D* X QUETIAPINE 200 MG TABLET TAKE (1) TABLET BY MOUTH TWIC* X RENACIDIN 1980.6 MG-59.4MG-98* USE 30ML INTRAVESICALRY VIA U* X SENNA 8.6 MG TABLET TAKE (1) TABLET BY MOUTH TWIC* X VITAMIN C 1,000 MG TABLET TAKE (1) TABLET BY MOUTH ONCE* AMMONIUM LACTATE 12 % TOPICAL* Apply 1 application to affect* BISACODYL 10 MG RECTAL SUPPOS* 1 Suppository by RECTAL route* Patient not taking: Reported on 03/05/2018 DOCUSATE SODIUM 100 MG CAPSULE Take 1 capsule by mouth twice* IN-ACID GAS RELIEF 80 MG CHEW* CHEW 1 TABLET BY MOUTH WITH M* X ACETAMINOPHEN ER 650 MG TABLE* Take 1 tablet by mouth every * X ALBUTEROL SULFATE HFA 90 MCG/* Inhale 2 Puffs as instructed * X AMMONIUM LACTATE 12 % LOTION APPLY TO AFFECTED AREAS TWICE* Problem List As Of Date 05/22/2018 Noted Resolved ATTN DEFICIT W HYPERACT [F90.9] [...] ordered this encounter Disp Refills Start End KETOCONAZOLE 2 % SHAMPOO 120 * 11 05/22/2018 Sig: APPLY LATHER TO AFFECTED SKIN ON FACE AND RINSE OFF AFTER 2-5 MIN. USE DAILY NEEDED Medications Discontinued During This Encounter apixaban (ELIQUIS) 2.5 mg tab tab(s) 62 t* 1 12/23/2017 05/22/2018 Route: ORAL Sig: Take 1 tablet by mouth twice daily. Patient not taking: Reported on 03/05/2018 Disc: Reason for discontinue is not on file. ketoconazole (NIZORAL) 2 % shampoo 120 * 0 11/01/2017 05/22/2018 Sig: APPLY LATHER TO AFFECTED SKIN ON FACE AND RINSE OFF AFTER 2-5 MIN. USE DAILY NEEDED Disc: Reason for discontinue is not on file. polyethylene glycol 3350 (MIRALAX, G* 527 g 3 12/07/2017 05/22/2018 Sig: Mix 1 capful (17 GMS) in 8 oz of water and take by mouth at 8 pm as 3rd dose if no BM by 8pm. Disc: Reason for discontinue is not on file. Encounter Status:Closed by FRANCINE CLARK MD on 06/08/18 CNPN Observed: 05/21/2018 Status: COMPLETED Source: [place] 12:00 AM [facility] REPOSITORY Telephone (INTMWS) JARON MORSE ([id number]) 1980 Date Time Provider Department 05/21/18 FRANCINE CLARK INTMWS During your visit today, we recorded the following information about you: Yokasta Herron LPN 05/21/2018 3:00 PM Signed Leslie with [facility] [phone] called very concerned with patient's health. Seen and he is declining with his kidney function. Has been seen numerous times for hematuria, painful back and abdomen, weakness and mobility declining. His dam operator has been contacted and they can not see him before 06-26-18. He already has an apt 06-29-18. BUN and creatinine is 76 and 4.73. GFR 14 at last ER visit Monday. They feel he needs to be on dialysis sooner than later. Please contact [facility] with recommendation. Yokasta Herron LPN 05/24/2018 11:20 AM Signed Routing to doctor social media content manager. Dr. Clark out of the office.Yokasta Lee APRN.INTELLIGENCE APPLICATIONS 05/24/2018 1:17 PM Signed Routed to doctor social media content manager previously Was just seen in the office by PCP. Please review with [facility]: Was advised at his last visit with caregiver who attended him that if he is not having symptoms that warrant dialysis no need to pursue dialysis. Advised patient he contact dam operator if he has concerning symptoms so he [...] with recommendation, will continue with his local [facility] observation and keep us posted through [facility] Funmilayo Petersen, RN, RN 05/25/2018 1:20 PM Signed Cherise/Agustin returns call, message given with understanding. Allergies As of Date: 05/21/2018 Noted Allergy Reaction SEASONAL ALLERGIES 12/03/2012 14 - Other: See Comments Comments: Environmental-ragweed Date Reviewed: 04/27/2018 Reviewed by: Opal Barnes Ma - Fully Assessed Reason for Visit: [facility] [Other] Prescriptions as of 05/21/2018 [...] % SHAMPOO APPLY LATHER TO AFFECTED SKIN* IN-ACID GAS RELIEF 80 MG CHEW* CHEW 1 [...] F Source: [place] PROFILE (BMP) 8:55 AM [facility] REPOSITORY TYPE CODE TESTS RESULT OUT OF [...] Performed By: #### L500.2500 #### [facility] [address] [place], [address] DISCHARGE INSTRUCTION Observed: 05/18/2018 Status: F Source: [place] 6:58 AM [facility] REPOSITORY [facility] Medical Records Department [address] [place] [address] Discharge Instruction 05/18/18 0657 MR#: [id number] Acct: [id number] Name: JARON MORSE Rep #: [id number] : 1980 38 From: Jason Bal MD [...] your Primary Care Provider. Call [facility] ([phone]) or report to the closest Emergency Room. Call 911 if necessary. 05/18/18 0658 <Electronically signed by Jason Bal MD> Date Jason Bal MD Cosigner Signature (If Indicated): Date CC: Francine Clark MD EMERGENCY DEPARTMENT Observed: 05/18/2018 Status: F Source: [place] SUMMARY 6:57 [facility] REPOSITORY [facility] Medical Records Department [address] [place] [address] Emergency Department Summary 05/18/18 0655 MR#: [id number] Acct: [id number] Name: JARON MORSE Rep #: [id number] : 1980 38 From: Jason Bal MD [...] Hematuria Dehydration This note was generated with [employer] dictation software. It may contain incorrect words, [...] your Primary Care Provider. Call [facility] ([phone]) or report to the closest Emergency Room. Call 911 if necessary. 05/18/18 0657 <Electronically signed by Jason Bal MD> Date Jason Bal MD Cosigner Signature (If Indicated): Date CC: Francine lCark MD URINALYSIS, COMPLETE Collected: 05/18/2018 Status: F Source: [place]REG 6:24 AM [facility] REPOSITORY Order Comment: Order Date: 05/18/18 Has [...] Performed By: #### L400.0001 #### [facility] [address] [place], [place], [id number] Observed: 05/18/2018 Status: F Source: [place] CULTURE, URINE 6:24 AM [facility] REPOSITORY Has pt arrived? Y Urine Culture ORGANISM 1: Citrobacter freundii [place] Count >100,000 ORGANISM 2: Enterococcus faecalis [place] Count 11,000-25,000 Citrobacter freundii: REACTION Amoxacillin/Clavulanic Acid $ >=32 R Cefazolin $ >=64 R Cefepime $ <=1 S Ceftriaxone $ 16 I Ciprofloxacin $ 1 S Ertapenim $$$ <=0.5 S Gentamicin $ <=1 S Imipenem *NF 0.5 S Levofloxacin $ 1 S Nitrofurantoin $ <=16 S Tobramycin $ <=1 S Trimethoprim/Sulfametho $ >=320 R (NF) indicates non-formulary drug at [facility]. Approval by Infectious Disease Specialist required [...] (NF) indicates non-formulary drug at [facility]. Approval by Infectious Disease Specialist required before non-formulary drugs may be ordered and/or dispensed. * CLSI guidelines does not recommend testing of cephalosporins. This interpretation is deduced from Beta-lactam/penicillin results. Performed By: #### M100.0650 #### [facility] [address] [place], [place], [address] CBC W/DIFF, AUTOMATED Collected: 05/18/2018 Status: F Source: [place] 6:15 AM [facility] REPOSITORY TYPE CODE TESTS RESULT OUT OF [...] Performed By: #### L100.0100 #### [facility] [address] [place], [place], [address] BASIC METABOLIC Collected: 05/18/2018 Status: F Source: [place]REG PROFILE ([facility]) 6:15 AM [facility] REPOSITORY TYPE CODE TESTS RESULT OUT OF [...] Performed By: #### L500.2500 #### [facility] [address] [place], [place], [address] HEMOGLOBIN A1C Collected: 05/18/2018 Status: F Source: [place] 6:15 AM [facility] REPOSITORY TYPE CODE TESTS RESULT OUT OF RANGE REFERENCE UNITS LAB L501.9985 4.2-6.3 % High HGB A1C 7.4 Performed By: #### L501.9985 #### [facility] [address] [place], [address] UA Collected: 05/11/2018 Status: F Source: [facility] 2:02 PM [facility] REPOSITORY TYPE CODE TESTS RESULT OUT OF [...] Leuk Est Unknown Moderate Performed By: #### UA, UAMIC #### [place] [address] UAMIC Collected: 05/11/2018 Status: F Source: [facility] 2:02 PM [facility] REPOSITORY TYPE CODE TESTS RESULT OUT OF RANGE REFERENCE UNITS LAB RBCUA(LOIN 0-2 /hpf C) UA RBC Unknown 10-20 LAB WBCUA(LOIN 0-5 /hpf C) UA WBC Negative LAB EPIUA(LOIN 0-20 /hpf C) UA Squam Epithelial Negative LAB BACUA(LOIN Negative /hpf C) UA Unknown Bacteria Trace LAB GLTUA(LOIN /hpf C) UA Unknown Glitter cells 25-50 Performed By: #### UA, UAMIC #### [place] [address] Observed: 05/11/2018 Status: F Source: [facility] 2:02 [facility] REPOSITORY . MICRO - Microbiology PROCEDURE: Urine [...] Locations *1: This test was performed at: [address] [place], [address]- , [facility] Performed By: #### CUR #### [place] [id number] CBC Collected: 05/11/2018 Status: F Source: [facility] 1:45 PM [facility] REPOSITORY Order Comment: Clotted notified H[place] TYPE [...] 6.4-10.5 fL MPV 8.7 Performed By: #### CBC, ADIFF, ANEU, BMP, GFR #### [place] [address] .AUTO DIFF Collected: 05/11/2018 Status: F Source: [facility] 1:45 PM [facility] REPOSITORY TYPE CODE TESTS RESULT OUT OF [...] 0.00 Absolute Performed By: #### CBC, ADIFF, ANEU, BMP, GFR #### [address] [address] .NEUABS Collected: 05/11/2018 Status: F Source: [facility] 1:45 PM [facility] REPOSITORY TYPE CODE TESTS RESULT OUT OF REFERENCE UNITS RANGE LAB ANEU(LOINC) 2.25-8.10 10 3/mcL Neutrophil, 3.60 Absolute Performed By: #### CBC, ADIFF, ANEU, BMP, GFR #### [place] [address] BMP Collected: 05/11/2018 Status: F Source: [facility] 1:38 PM [facility] REPOSITORY TYPE CODE TESTS RESULT OUT OF [...] Low Calcium Lvl 8.0 Performed By: #### CBC, ADIFF, ANEU, BMP, GFR #### [place] [address] .GFR Collected: 05/11/2018 Status: F Source: [facility] 1:38 PM [facility] REPOSITORY TYPE CODE TESTS RESULT OUT OF REFERENCE UNITS RANGE LAB GFRAA(LOINC ml/min/1.73 ) sqm GFR 23 [place] Result Comment: GFR Population mean for , [...] square meters Performed By: #### CBC, ADIFF, ANEU, BMP, GFR #### [place] [address] EMERGENCY DEPARTMENT Observed: 05/10/2018 Status: F Source: [place] SUMMARY 10:19 PM [facility] REPOSITORY [facility] Medical Records Department [address] [place] [address] Emergency Department Summary 05/10/18 2215 MR#: [id number] Acct: [id number] Name: FRACISCOTANYAJARON D Rep #: [id number] : 1980 38 From: Gerry Rios MD [...] tract infection This note was generated with [employer] dictation software. It may contain incorrect words, [...] problems, contact your Primary Care Provider. Call [facility] ([phone]) or report to the closest Emergency Room. Call 911 if necessary. 05/10/18 2219 <Electronically signed by Gerry Rios MD> Date Gerry Rios MD Cosigner Signature (If Indicated): Date CC: Francine Clark MD URINALYSIS, COMPLETE Collected: 05/10/2018 Status: F Source: [place] 9:15 PM [facility] REPOSITORY Order Comment: How was Urine Obtained? [...] Performed By: #### L400.0001 #### [facility] [address] [place], [address] Observed: 05/10/2018 Status: F Source: [place] CULTURE, URINE 9:15 PM [facility] REPOSITORY Order Date: 05/10/18 Urine Culture ORGANISM 1: Serratia marcescens [place] Count >100,000 Serratia marcescens: REACTION Amoxacillin/Clavulanic Acid $ >=32 R Cefazolin $ >=64 R Cefepime $ <=1 S Ceftriaxone $ <=1 S Ciprofloxacin $ <=0.25 S Ertapenim $$$ <=0.5 S Gentamicin $ <=1 S Levofloxacin $ 0.25 S Nitrofurantoin $ 128 R Tobramycin $ <=1 S Trimethoprim/Sulfametho $ <=20 S (NF) indicates non-formulary drug at [facility]. Approval by Infectious Disease Specialist required before non-formulary drugs may be ordered and/or dispensed. Performed By: #### M100.0650 #### [facility] [address] [place], [address] CBC W/DIFF, AUTOMATED Collected: 05/10/2018 Status: F Source: [place] 8:35 PM [facility] REPOSITORY TYPE CODE TESTS RESULT OUT OF [...] Performed By: #### L100.0100 #### [facility] [address] [place], [place], [address] BASIC METABOLIC Collected: 05/10/2018 Status: F Source: [place] PROFILE (BMP) 8:35 PM [facility] REPOSITORY TYPE CODE TESTS RESULT OUT OF [...] Performed By: #### L500.2500 #### [facility] [address] [place], [address] HEMOGLOBIN A1C Collected: 05/09/2018 Status: F Source: [place] 10:30 AM [facility] REPOSITORY TYPE CODE TESTS RESULT OUT OF REFERENCE UNITS RANGE LAB HGBA1C 4.3-5.6 % High Hemoglobin A1c 6.5 Result Comment: [place] Diabetes Association guidelines indicate that patients with HgbA1c in the range 5.7-6.4% are at increased risk for development of diabetes, and intervention by lifestyle modification may be beneficial. HgbA1c greater or equal to 6.5% is considered diagnostic of diabetes. LAB HBA0 mg/dL Est. Average Glucose 140 Result Comment: eAG: (Estimated average glucose) is a calculated value from HgbA1c and is hospital insurance representative of the average blood glucose level in the last 2-3 month period. Performed By: #### HBA1C, CBCDIF, CMP #### [facility] [address] [place], [place] [address] CBC AND DIFFERENTIAL Collected: 05/09/2018 Status: F Source: [place] 10:30 AM [facility] REPOSITORY TYPE CODE TESTS RESULT OUT OF [...] k/uL Abs Lymph 1.50 LAB AMONO % [place]% 11.3 LAB AAMONO <0.87 k/uL Abs [place] 0.62 LAB AEOS % Eosin% 2.7 LAB AAEOS <0.46 k/uL Abs Eosin 0.15 LAB ABASO % Baso% 0.2 LAB AABASO <0.11 k/uL Abs Baso <0.03 LAB AUNRBC 0 /100 WBC NRBCs 0.0 LAB ABNRBC <0.01 k/uL Absolute nRBC <0.01 LAB DTYP DTYPE Auto Diff Performed By: #### HBA1C, CBCDIF, CMP #### [facility] [address] [place] [id number] COMP METABOLIC PANEL Collected: 05/09/2018 Status: F Source: [place] 10:30 AM [facility] REPOSITORY TYPE CODE TESTS RESULT OUT OF [...] mg/dL High Glucose 283 Result Comment: The [place] Diabetes Association (ADA) provides guidance for cutoff [...] Standards of Medical Care in Diabetes 2016, [place] Diabetes Association. Diabetes Care. 2016.39(Suppl 1). LAB [...] Performed By: #### HBA1C, CBCDIF, CMP #### [facility] [address] [place] [address] TSH Collected: 05/09/2018 Status: F Source: [place] 10:30 AM [facility] [place] REPOSITORY TYPE CODE TESTS RESULT OUT OF RANGE REFERENCE UNITS LAB TSH 0.400-5.500 uU/mL TSH 1.490 Performed By: #### TSH #### [facility] [address] [place] [address] SURGERY VISIT REPORT Observed: 04/27/2018 Status: F Source: [place] 4:17 PM [facility] REPOSITORY [facility] [address] [place] [address]. [address] [place] [address] OFFICE VISIT Date of Service: 04/27/18 MR#: [id number] Acct: [id number] Name: JARON MORSE Rep #: [id number] : 1980 Provider: Hugh Abreu MD Age/Sex: 38/M Location: [facility] Status: Signed Intake Intake Visit Reasons: Fisutal [...] 30 ml IR 0800,1600,2000 04/20/18 [History Confirmed 04/20/18] Fluoxetine [Prozac] 10 mg PO DAILY 04/20/18 [History Confirmed 04/20/18] Fluticasone 0.05% [Flonase Nasal [place]] 2 spray NASAL DAILY 04/20/18 [History Confirmed [...] 1. Problem with dialysis access, subsequent encounter T82.815A Plan The patient has some slight swelling [...] Diagnoses Problem with dialysis access, subsequent encounter T82.898A Encounter type: subsequent encounter 04/27/18 1617 <Electronically signed by Hugh Abreu MD> Date Hugh Abreu MD Cosigner Signature: Date (if applicable) CC: Deanne Ovalles DO; Francine Clark MD CNOV Observed: 04/27/2018 Status: COMPLETED Source: [place] 10:40 AM [facility] REPOSITORY Office Visit (INTMWS) JARON MORSE ([id number]) 1980 M Date Time Provider Department 04/27/18 10:40 AM MARK GUNN ([facility]) INTMWS During your visit today, we recorded [...] Hematuria Medication review completed Yes Mark Gunn APRN.WATER CHASER Provider Documentation: In follow-up of hospitalization, Jaron Morse is a 38 year old male with the chief complaint of hematuria with clots from suprapubic catheter and diffuse abdominal and low back pain. Patient was admitted to [facility] for hematuria, small bowel ileus, chronic renal insufficiency and anemia. Catheter was irrigated and replaced with 20 Ni[place]an. Hgb down to 8.5 from 13.2 at [...] PO iron supplements and [facility]. Patient presents today with caregiver with no [...] home health order from PCP Mark Gunn APRN.CNP April 27, 2018 10:31 AM Opal Barnes [...] Assessed Reason for Visit: Recheck [92] Cmt: [facility] Hosp follow up Primary Visit Diagnosis:Hospital discharge follow-up [Z09] Other Visit Diagnoses:Anemia, unspecified type [D64.9] Decreased range of motion of right shoulder [M25.611] Chronic right shoulder pain [M25.511, G89.29] Need for assistance due to unsteady gait [R26.89] Order(s):glucagon (GLUCAGON EMERGENCY KIT, HUMAN,) 1 mg solrINJECT 1MG INTRAMUSCULARLY IF UNCONSCIOUS, UNABLE TO FOLLOW SIMPLE INSTRUCTIONS OR SEIZURES TIMES 1 DOSEDisp: 1 EachRfl: 1 CBC [SQCBC] Order #: [id number] FUTURE acetaminophen (TYLENOL ARTHRITIS PAIN) 650 mg [...] % SHAMPOO APPLY LATHER TO AFFECTED SKIN* IN-ACID GAS RELIEF 80 MG CHEW* CHEW 1 [...] 04/27/18 PROGRESS Observed: 04/27/2018 Status: COMPLETED Source: [place] 10:31 AM [facility] REPOSITORY [facility] ID: [id number] Author: Mark Gunn Service: (none) Author Type: Nurse Practitioner Type: Progress Notes Filed: 04/27/2018 3:52 PM Note Text: Transitional Care Management Progress Note The patients TCM visit was performed within the 7 days of discharge. Patient's Date of discharge: 04/22/18 Date of initial coordinator contact after discharge: 04/23/18 Discharge diagnosis: Hematuria Medication review completed Yes Mark Gunn APRN.WATER CHASER Provider Documentation: In follow-up of hospitalization, Jaron Morse is a 38 year old male with the chief complaint of hematuria with clots from suprapubic catheter and diffuse abdominal and low back pain. Patient was admitted to [facility] for hematuria, small bowel ileus, chronic renal insufficiency and anemia. Catheter was irrigated and replaced with 20 Niuean. Hgb down to 8.5 from 13.2 at [...] PO iron supplements and [facility]. Patient presents today with caregiver with no [...] home health order from PCP Mark Gunn APRN.WATER CHASER April 27, 2018 10:31 AM CBC Collected: 04/26/2018 Status: F Source: [place] 10:05 AM [facility] REPOSITORY TYPE CODE [...] nRBC <0.01 Performed By: #### CBC #### [facility] [address] [place], [place] [address] 12 LEAD ELECTROCARDIOGRAM Observed: 04/23/2018 Status: F Source: [place] 3:13 PM [facility] REPOSITORY [facility] Cardiovascular Services [address] [place] [address] 12 Lead EKG 04/20/18 1516 MR#: [id number] Acct: [id number] Name: JARON MORSE Yaquelin Rep #: [id number] : 1980 38 From: Ricardo Samaniego MD Attending Dr: Yassine Baer DO Status: DIS IN Ordering Dr: Manish Ghosh DO Date: 04/20/18 [place] [facility] [place] M C Admitted: 04/20/18 Test Reason [...] ECG Confirmed by RICARDO SAMANIEGO MD ([id number]), purchase request editor DALILA GABRIEL ([id number]) on 04/23/2018 3:12:53 PM Referred By: BLAYNE Confirmed By:RICARDO SAMANIEGO MD 04/23/18 1512 Date Ricardo Samaniego MD CC: Manish Ghosh DO; Yassine Baer DO; Francine Clark MD Signed PROGRESS Observed: 04/23/2018 Status: COMPLETED Source: [place] 10:46 AM [facility] REPOSITORY O ID: [id number] Author: Khloe Pruett LPN Service: (none) Author Type: (none) Type: Progress Notes Filed: 04/27/2018 3:45 PM Note Text: TRANSITION CARE MANAGEMENT (TCM) INITIAL CONTACT Director Of Marketing Outreach Provider Action/FYI: Initial contact with patient post discharge, spoke to caregiver. Patient identified by name and . TRANSITION CARE MANAGEMENT INITIAL OUTREACH DOCUMENTATION: Date of Outreach: 04/23/2018 Outreach Attempt 1: Contact Made Date of Discharge 04/22/2018 Some recent data might be hidden SUMMARY: -Pt discharged from [facility] on 04/20/18. -Admitted for: hematuria Do you [...] recent hospitalization: Placed for provider to review EVANS Observed: 04/23/2018 Status: COMPLETED Source: [place] 12:00 AM [facility] REPOSITORY Patient Outreach (INTMWS) JARON MORSE ([id number]) 1980 M Date Time Provider Department 04/23/18 FRANCINE CLARK INTMWS During your visit today, we recorded the following information about you: Khloe Rickmita SHELLEY 04/27/2018 3:45 PM Signed TRANSITION CARE MANAGEMENT (TCM) INITIAL CONTACT Director Of Marketing Outreach Provider Action/FYI: Initial contact with patient post discharge, spoke to caregiver. Patient identified by name and . TRANSITION CARE MANAGEMENT INITIAL OUTREACH DOCUMENTATION: Date of Outreach: 04/23/2018 Outreach Attempt 1: Contact Made Date of Discharge 04/22/2018 Some recent data might be hidden SUMMARY: -Pt discharged from [facility] on 04/20/18. -Admitted for: hematuria Do you [...] % SHAMPOO APPLY LATHER TO AFFECTED SKIN* IN-ACID GAS RELIEF 80 MG CHEW* CHEW 1 [...] 04/22/2018 Status: F Source: [place] 11:53 AM [facility] REPOSITORY TYPE CODE TESTS RESULT OUT OF REFERENCE UNITS RANGE LAB L501.080 70-110 mg/dL High BEDSIDE GLU 265 Result Comment: MANAGEMENT OF PATIENT CARE PER NURSING PROTOCOL Performed By: #### L501.080 #### [facility] Point of Care [address] [place] [address] DISCHARGE SUMMARY Observed: 04/22/2018 Status: F Source: [place] 9:10 AM [facility] REPOSITORY [facility] Medical Records Department [address] [place] [place] [address] Discharge Summary 04/22/18 0905 MR#: [id number] Acct: [id number] Name: JARON MORSE Rep #: [id number] : 1980 38 From: Yassine Baer DO PCP: Francine Clark MD Status: ADM IN Y Location: [address] Discharge Date and Diagnosis - Problem List [...] 12:41 EDT , Service support , Dr. Miller Operations: None Procedures: None Summary of Care [...] PO DAILY 04/20/18 Fluticasone 0.05% [Flonase Nasal [place]] 2 spray NASAL DAILY 04/20/18 Insulin Glargine,Hum.rec.anlog [...] applicable Code Visit Inpatient E AND M: 76494 Disch Hosp 04/22/18909 <Electronically signed by Yassine Baer DO> Date Yassine Baer DO Cosigner Signature (if applicable): Date CC: Yassine Baer DO; Francine Clark MD Signed DISCHARGE INSTRUCTION Observed: 04/22/2018 Status: F Source: [place] 9:05 AM [facility] REPOSITORY [facility] Medical Records Department [address] [place] [place] [address] Instructions for Home/Discharge Instructions 04/22/18902 MR#: [id number] Acct: [id number] Name: FRACISCOTANYAJARON D Rep #: [id number] : 1980 38 From: Yassine Baer DO PCP: Francine Clark MD Status: ADM IN - Discharge Diagnoses Current [...] PO DAILY 04/20/18 Fluticasone 0.05% [Flonase Nasal [place]] 2 spray NASAL DAILY 04/20/18 Insulin Glargine,Hum.rec.anlog [...] DO> Date Yassine Baer DO CC: Madi Miller M.D.; Jose Juan Lopez MD; Francine Clark MD BEDSIDE GLUCOSE Collected: 04/22/2018 Status: F Source: [place] 8:24 AM [facility] REPOSITORY TYPE CODE TESTS RESULT OUT OF REFERENCE UNITS RANGE LAB L501.080 70-110 mg/dL High BEDSIDE GLU 198 Result Comment: MANAGEMENT OF PATIENT CARE PER NURSING PROTOCOL Performed By: #### L501.080 #### [facility] Point of Care [facility] [place] [address] [address] [address] CBC W/DIFF, AUTOMATED Collected: 04/22/2018 Status: F Source: [place] 7:26 AM [facility] REPOSITORY TYPE CODE TESTS RESULT OUT OF [...] Performed By: #### L100.0100 #### [facility] [address] [place], [address] BASIC METABOLIC Collected: 04/22/2018 Status: F Source: [place] PROFILE ([facility]) 7:26 AM [facility] REPOSITORY TYPE CODE TESTS RESULT OUT OF [...] Performed By: #### L500.2500 #### [facility] [address] [place], [address] BEDSIDE GLUCOSE Collected: 04/21/2018 Status: F Source: [place] 10:12 PM [facility] REPOSITORY TYPE CODE TESTS RESULT OUT OF REFERENCE UNITS RANGE LAB L501.080 70-110 mg/dL High BEDSIDE GLU 198 Result Comment: MANAGEMENT OF PATIENT CARE PER NURSING PROTOCOL Performed By: #### L501.080 #### [facility] Point of Care [address] [place] [address] CONSULTATION Observed: 04/21/2018 Status: F Source: [place] 5:12 PM [facility] REPOSITORY [facility] Medical Records Department [address] [place] [address] Consultation 04/21/18 1706 MR#: [id number] Acct: [id number] Name: JARON MORSE Rep #: [id number] : 1980 38 From: Stan Miller MD PCP: Francine Clark MD Status: ADM IN Y [place] [facility] [place] [place] Problem List (1) CKD (chronic kidney disease) [...] Acid (Vitamin C) 1,000 mg PO DAILY [facility] Last Admin: 04/21/18 08:12 Dose: 1,000 mg Aspirin (Ecotrin) 81 mg PO DAILY@0800 [facility] Last Admin: 04/21/18 08:09 Dose: 81 mg Atorvastatin Calcium (Lipitor) 5 mg PO QHS [facility] Last Admin: 04/20/18 21:06 Dose: 5 mg Cholecalciferol (Vitamin D) 5,000 unit PO DAILY [facility] Last Admin: 04/21/18 08:11 Dose: 5,000 unit Emollient Ointment (Eucerin Intensive Repair) 1 applic TOPICAL BID [facility] Last Admin: 04/21/18 08:17 Dose: 1 applicatio Ferrous Sulfate (Ferrous Sulfate) 650 mg PO DAILY@0800 [facility] Last Admin: 04/21/18 08:13 Dose: 650 mg Fluoxetine HCl (Prozac) 30 mg PO DAILY [facility] Last Admin: 04/21/18 08:09 Dose: 30 mg Fluticasone Propionate (Flonase Nasal [place]) 2 spray NASAL DAILY [facility] Last Admin: 04/21/18 08:13 Dose: 2 spray Insulin Glargine (Lantus (Bkc)) 14 units SC BID [facility] Last Admin: 04/21/18 08:14 Dose: 14 u Insulin Human Lispro (Humalog Kwikpen (Bkc)) 8 unit SC 0800,1700 [facility] Last Admin: 04/21/18 16:27 Dose: 8 u Insulin Human Lispro (Humalog Kwikpen (Bkc)) 4 unit SC 1100 [facility] Last Admin: 04/21/18 11:55 Dose: 4 u Loratadine (Claritin) 10 mg PO DAILY [facility] Last Admin: 04/21/18 08:11 Dose: 10 mg Magnesium Hydroxide (Milk Of Magnesia) 30 ml PO DAILY PRN PRN PRN Reason: Constipation Melatonin (Melatonin) 3 mg PO QHS [facility] Last Admin: 04/20/18 21:09 Dose: 3 mg Metoprolol Tartrate (Lopressor (Beta August)) 12.5 mg PO BID [facility] Last Admin: 04/21/18 08:09 Dose: 12.5 mg Non-Formulary Medication (Citric Ac/Gluconolact/Mag Carb [Renacidin Irrigation Solution]) 30 ml IR 0800,1600,2000 [facility] Non-Formulary Medication (Olopatadine Hcl [Pataday]) 1 drop EACHEYE DAILY [facility] Oxybutynin Chloride (Ditropan) 5 mg PO DAILY PRN PRN Reason: BLADDER SPASMS Pantoprazole Sodium (Protonix) 40 mg PO DAILY [facility] Last Admin: 04/21/18 08:09 Dose: 40 mg Polyethylene Glycol (Miralax) 17 gm PO QHS PRN PRN Reason: if pt does not have large BM Polyethylene Glycol (Miralax) 17 gm PO 0800,1600 [facility] Last Admin: 04/21/18 16:27 Dose: 17 gm Quetiapine Fumarate (Seroquel) 100 mg PO 1700 [facility] Last Admin: 04/21/18 16:27 Dose: 100 mg Quetiapine Fumarate (Seroquel) 200 mg PO 0800,2000 [facility] Last Admin: 04/21/18 08:12 Dose: 200 mg Senna (Senokot) 1 tablet PO BID [facility] Last Admin: 04/21/18 08:10 Dose: 1 tablet [...] dialysis when he was recently admitted at [facility] but was able to come off. at [...] He developed a superficial DVT(line associated) at [facility] for which he was placed on eliquis. discussed with Dr clark recently and this was discontinued due to hematuria since he finished required duration of DVT treatment Anemia. transfuse if Hb less than 7 d/w Dr Baer Thank you 04/21/18 604 <Electronically signed by Stan Miller MD> Date Stan Miller MD Cosigner Signature (if applicable): Date CC: Madi Miller M.D.; Jose Juan Lopez MD; Francine Clark MD Signed BEDSIDE GLUCOSE Collected: 04/21/2018 Status: F Source: [place] 4:25 PM [facility] REPOSITORY TYPE CODE TESTS RESULT OUT OF REFERENCE UNITS RANGE LAB L501.080 70-110 mg/dL High BEDSIDE GLU 249 Result Comment: MANAGEMENT OF PATIENT CARE PER NURSING PROTOCOL Performed By: #### L501.080 #### [facility] Laboratory Point of Care [address] [place], [place] [id number] CBC W/DIFF, AUTOMATED Collected: 04/21/2018 Status: F Source: [place] 2:32 PM [facility] REPOSITORY TYPE CODE TESTS RESULT OUT OF [...] Performed By: #### L100.0100 #### [facility] [address] [place], [address] BEDSIDE GLUCOSE Collected: 04/21/2018 Status: F Source: [place] 11:53 AM [facility] REPOSITORY TYPE CODE TESTS RESULT OUT OF REFERENCE UNITS RANGE LAB L501.080 70-110 mg/dL High BEDSIDE GLU 192 Result Comment: MANAGEMENT OF PATIENT CARE PER NURSING PROTOCOL Performed By: #### L501.080 #### [facility] Point of Care [address] [place] [address] BEDSIDE GLUCOSE Collected: 04/21/2018 Status: F Source: [place] 8:23 AM [facility] REPOSITORY TYPE CODE TESTS RESULT OUT OF REFERENCE UNITS RANGE LAB L501.080 70-110 mg/dL High BEDSIDE GLU 218 Result Comment: MANAGEMENT OF PATIENT CARE PER NURSING PROTOCOL Performed By: #### L501.080 #### [facility] Point of Care [address] [place] [address] CBC W/DIFF, AUTOMATED Collected: 04/21/2018 Status: F Source: [place] 7:54 AM [facility] REPOSITORY TYPE CODE TESTS RESULT OUT OF [...] Performed By: #### L100.0100 #### [facility] [address] [place], [place], [address] BASIC METABOLIC Collected: 04/21/2018 Status: F Source: [place] PROFILE ([facility]) 7:54 AM [facility] REPOSITORY TYPE CODE TESTS RESULT OUT OF [...] Performed By: #### L500.2500 #### [facility] [address] [place], [address] BEDSIDE GLUCOSE Collected: 04/20/2018 Status: F Source: [place] 9:03 PM [facility] REPOSITORY TYPE CODE TESTS RESULT OUT OF REFERENCE UNITS RANGE LAB L501.080 70-110 mg/dL High BEDSIDE GLU 410 Result Comment: Insulin Given MANAGEMENT OF PATIENT CARE PER NURSING PROTOCOL Performed By: #### L501.080 #### [facility] Point of Care [address] [place] [address] EMERGENCY DEPARTMENT Observed: 04/20/2018 Status: F Source: [place] SUMMARY 4:29 PM [facility] REPOSITORY [facility] Medical Records Department [address] [place] [address] Emergency Department Summary 04/20/18 1101 MR#: [id number] Acct: [id number] Name: JARON MORSE Yaquelin Rep #: [id number] : 1980 38 From: Harshad Patel MD PCP: Francine Clark MD Status: ADM MALISSA - ER Visit Summary Date of Service: 04/20/18 Chief Complaint: Hematuria History of Present Illness: The patient is a [address] Clark, Dr. Lopez, and Dr. Miller. He reports he has hematuria that began [...] remains quite dark with clots. His 18 Niuean suprapubic was changed to a 20 Niuean. Treatment Plan: Patient was discussed with Dr. Lopez and will be discussed with the hospitalist. He will be admitted for further evaluation and treatment. Disposition: Admitted in improved condition. Impression: 1. Hematuria. 2. Ileus, small bowel. 3. Chronic renal insufficiency. 4. Anemia. This note was generated with [employer] software. It may contain incorrect words, spelling, [...] your Primary Care Provider. Call [facility] ([phone]) or report to the closest Emergency Room. Call 911 if necessary. 04/20/18 1629 <Electronically signed by Harshad Patel MD> Date Harshad Patel MD Cosigner Signature (If Indicated): Date CC: Francine Clark MD HISTORY AND PHYSICAL Observed: 04/20/2018 Status: F Source: [place] EXAM 4:08 PM [facility] REPOSITORY [facility] Medical Records Department [address] [place] [address] History and Physical 04/20/18 1530 MR#: [id number] Acct: [id number] Name: JARON MORSE Rep #: [id number] : 1980 38 From: Stef BURNETTE PCP: Francine Clark MD Status: ADM MALISSA Y Location: [place] [address] <Stef Graves - Last Filed: 04/20/18 15:30> [...] who presented to the ER from his [place] [facility] with dark red hematuria and clots. He used to be on eliquis for DVT of his left upper extremity which he states occurred in august of this year. He is a dialysis pt of Dr. Miller, and is followed for his long time [...] - Psychiatric History: - Lives: - - [place] [facility] Smoking Status: Never smoker Tobacco Use: Non-smoker [...] 2/2 irrigation. 4. ESRD - C/s Dr. Miller. 5. DM - continue insulin regimen and titrate to response. 6. MRDD w/ hx behavioral disturbance and narcissitic personality 7. HTN - stable DVT ppx: SCDs DC planning: Back to [place] [facility] when stable. This patient was seen by Stef Graves PA-C under the supervision of Dr. Barton. <Mayco Barton F - Last Filed: 04/20/18 16:08> History of [...] clots coming out of the catheter. Dr. Lpoez was called by the ER who was [...] past and previously had been seen at [facility] for this issue. He is no longer on Eliquis for the DVT that occurred in August, he had an fistula placed in his right arm, because his left arm fistula had clotted off. We will consult nephrology for dialysis. OBSV E AND M: [id number] Initial observation care L3 04/20/18 1550 <Electronically signed by Stef BURNETTE> Date Stef BURNETTE 04/20/18 1608<Electronically signed by Mayco Barton MD> Cosigner Signature: Date (if applicable) Mayco Barton MD CC: VASILE Graves; Francine Clark MD; Mayco Barton MD Signed HH, HEMOGLOBIN AND Collected: 04/20/2018 Status: F Source: [place] HEMATOCRIT 3:35 PM [facility] REPOSITORY TYPE CODE TESTS RESULT OUT OF RANGE REFERENCE UNITS LAB L100.1300 13.0-16.5 g/dl Low HGB 10.0 LAB L100.1400 40-54 % Low HCT 31.0 Performed By: #### L100.0600 #### [facility] [address] [facility] [place], [address] BEDSIDE GLUCOSE Collected: 04/20/2018 Status: F Source: [place] 3:09 PM [facility] REPOSITORY TYPE CODE TESTS RESULT OUT OF REFERENCE UNITS RANGE LAB L501.080 70-110 mg/dL High BEDSIDE GLU 136 Result Comment: MANAGEMENT OF PATIENT CARE PER NURSING PROTOCOL Performed By: #### L501.080 #### [facility] Laboratory Point of Care [address] [facility] [place] [address] CONSULTATION Observed: 04/20/2018 Status: F Source: [place] 1:45 PM [facility] REPOSITORY [facility] Medical Records Department [address] [facility] [address] [place] [address] Consultation 04/20/18 1342 MR#: [id number] Acct: [id number] Name: JARON MORSE Rep #: [id number] : 1980 38 From: Jose Juan Lopez [...] obvious masses, change catheter to the 20 Niuean irrigated all the clots out and now [...] deferred - Suprapubic catheter changed to 20 Niuean Laboratory Tests Past 24 Hrs WBC 7.7 [...] urine clears up. Call with questions 04/20/18 2212 <Electronically signed by Jose Juan Lopez MD> Date Jose Juan Lopez MD Cosigner Signature (if applicable): Date CC: Francine Clark MD Signed URINALYSIS, COMPLETE Collected: 04/20/2018 Status: F Source: [place] 12:21 PM [facility] REPOSITORY Order Comment: Order Date: 04/20/18 COLOR [...] Performed By: #### L400.0001 #### [facility] [address] [place], [address] Observed: 04/20/2018 Status: F Source: [place] CULTURE, URINE 12:21 PM [facility] REPOSITORY Order Date: 04/20/18 Urine Culture ORGANISM 1: Meth. resistant Staph. aureus [place] Count 1000-10,000 ORGANISM 2: Enterococcus faecalis [place] Count 1000-10,000 ORGANISM 3: Serratia marcescens [place] Count 1000-10,000 Meth. resistant Staph. aureus: REACTION Benzylpenicillin NF >=0.5 R Cefoxitin *NF + Inducable Clindamycin [place] - Gentamicin $ <=0.5 S Levofloxacin $ 0.5 S Linezolid $$$$ 2 S Nitrofurantoin $ 32 S Oxacillin NF >=4 R Rifampin $$ <=0.5 S Tetracycline NF <=1 S Trimethoprim/Sulfametho $ <=10 S Vancomycin $ <=0.5 S (NF) indicates non-formulary drug at [facility]. Approval by Infectious Disease Specialist required [...] (NF) indicates non-formulary drug at [facility]. Approval by Infectious Disease Specialist required [...] (NF) indicates non-formulary drug at [facility]. Approval by Infectious Disease Specialist required before non-formulary drugs may be ordered and/or dispensed. Performed By: #### M100.0650 #### [facility] [address] [place], [place], [address] CBC W/DIFF, AUTOMATED Collected: 04/20/2018 Status: F Source: [place] 10:58 AM [facility] REPOSITORY TYPE CODE TESTS RESULT OUT OF [...] Performed By: #### L100.0100 #### [facility] [address] [facility] [place], [place], [address] PROTHROMBIN TIME W/INR Collected: 04/20/2018 Status: F Source: [place] 10:58 AM [facility] REPOSITORY TYPE CODE TESTS RESULT OUT OF RANGE REFERENCE UNITS LAB L300.4150 11.7-14.9 SECONDS Normal PROTIME 13.2 LAB L300.4200 Normal INR 1.0 Performed By: #### L300.3900, L300.4310 #### [facility] [address] [facility]. [facility] [id number] PARTIAL THROMBOPLAST Collected: 04/20/2018 Status: F Source: [facility] 10:58 AM [facility] REPOSITORY TYPE CODE TESTS RESULT OUT OF RANGE REFERENCE UNITS LAB L300.4310 24.1-36.2 Seconds Normal PTT 33.9 Performed By: #### L300.3900, L300.4310 #### [facility] [address] [place], [address] COMPREHENSIVE METABOLIC Collected: 04/20/2018 Status: F Source: [place] PROFIL 10:58 AM [facility] REPOSITORY TYPE CODE TESTS RESULT OUT OF [...] Performed By: #### L500.4050 #### [facility] [place], [address] LACTIC ACID Collected: 04/20/2018 Status: F Source: [place] 10:58 AM [facility] REPOSITORY Order Comment: Yes/No query for Sepsis Lactate Rule Y TYPE CODE TESTS RESULT OUT OF RANGE REFERENCE UNITS LAB L503.6005 0.4-2.0 mmol/L Normal LACTIC ACID 0.9 Performed By: #### L503.6005 #### [facility] [address] [place], [address] ABDOMEN/PELVIS WITHOUT Observed: 04/20/2018 Status: F Source: [place] CONT 10:34 AM [facility] REPOSITORY [facility] Imaging Services [address] [place] [address] Abdomen/Pelvis without Cont MR#: [id number] Acct: [id number] Name: JARON MORSE Rep #: [id number] : 1980 M 38 From: Fernando Cortés MD PCP: Francine Clark MD Status: REG ER Study: Abdomen/Pelvis without Cont Date of Exam: 04/20/18 Exam# [id number] Ordering Dr: Harshad Patel MD STUDY: CT [...] CC: Francine Clark MD; Harshad Patel MD [employer] Consultant: Signed DISCHARGE INSTRUCTION Observed: 04/19/2018 Status: F Source: [place] 6:20 AM [facility] REPOSITORY [facility] Medical Records Department [address] [place] [address] Instructions for Home/Discharge Instructions 04/18/18 1442 MR#: [id number] Acct: [id number] Name: MINIJARON D Rep #: [id number] : 1980 38 From: Hugh Abreu MD PCP: Frnacine Clark MD Status: DEP [facility] Discharge Diet: Renal Diet Discharge Activity: May [...] gm PO BID 02/09/18 Hydrocodone Bitart/Apap 5-325 [[place] 5/325] 1 tab PO Q6H PRN PRN 3 Days #5 tab 04/18/18 The following prescriptions were given: Hydrocodone Bitart/Apap 5-325 [[place] 5/325] 1 tab PO Q6H PRN PRN 3 Days #5 tab PRN Reason: Pain Primary Care Physician: Francine Clark MD [Primary Care Provider] - Test Results: Test results from this visit will be discussed in further detail at your follow-up appointment, if applicable. Please Follow Up With: Hugh Abreu MD - [phone] When: Call to make an appointment for suture removal and follow up in 7-10 days. 04/19/18 0620 <Electronically signed by Hugh Abreu MD> Date Hugh Abreu MD CC: Francine Clark MD OPERATIVE REPORT Observed: 04/19/2018 Status: F Source: [place] 6:20 AM [facility] Medical Records Department [address] [place] [address] Operative Report 04/18/18 1445 MR#: [id number] Acct: [id number] Name: JARON MORSE Yaquelin Rep #: [id number] : 1980 38 From: Hugh Abreu MD PCP: Francine Clark MD Status: [facility] Y Location: [facility] Problem List (1) Problem with dialysis access [...] F Source: [place] NO DIFF 9:45 AM [facility] REPOSITORY TYPE CODE TESTS RESULT OUT OF [...] By: #### L100.0500, L500.2500 #### [facility] [address] [place], [address] BASIC METABOLIC Collected: 04/18/2018 Status: F Source: [place] PROFILE ([facility]) 9:45 AM [facility] REPOSITORY TYPE CODE TESTS RESULT OUT OF [...] By: #### L100.0500, L500.2500 #### [facility] [address] [place], [address] SURGERY VISIT REPORT Observed: 04/03/2018 Status: F Source: [place] 4:07 PM [facility] REPOSITORY [facility] [address] [place] [address] OFFICE VISIT Date of Service: 04/03/18 MR#: [id number] Acct: [id number] Name: JARON MORSE Rep #: [id number] : 1980 Provider: Taylor Owens PA-C Age/Sex: 38/M Location: [facility] Status: Signed Intake Vital Signs04/03/18 Height 5 ft 4.5 in 04/03/18 Weight: 228 lb Intake Visit Reasons: 3 wk fu Fistula Creation 02/16 Log Deckman Required: No Is patient in pain?: No [...] 02/09/18 [History Confirmed 04/03/18] Hydrocodone Bitart/Apap 5-325 [[place] 5MG-325MG] 1 tab PO Q6H PRN PRN [...] currently on dialysis. 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 Patient returns today for a follow-up. He [...] cooperative, healthy appearing, comfortable, no acute distress HENMT Head: normal to inspection Eyes General: appearance [...] BASIC METABOLIC Collected: 03/08/2018 Status: F Source: [place] PROFILE (BMP) 8:13 AM [facility] REPOSITORY TYPE CODE TESTS RESULT OUT OF [...] Performed By: #### L500.2500 #### [facility] [address] [place], [address] SURGERY VISIT REPORT Observed: 03/07/2018 Status: F Source: [place] 1:11 PM [facility] REPOSITORY [facility] [address] [place] [address] OFFICE VISIT Date of Service: 03/07/18 MR#: [id number] Acct: [id number] Name: JARON MORSE Yaquelin Rep #: [id number] : 1980 Provider: Taylor Owens PA-C Age/Sex: 38/M Location: [facility] Status: Signed Intake Intake Visit Reasons: Fistula Creation 02/16 Log Deckman Required: No Is patient in pain?: No [...] 02/09/18 [History Confirmed 03/07/18] Hydrocodone Bitart/Apap 5-325 [[place] 5MG-325MG] 1 tab PO Q6H PRN PRN [...] currently on dialysis. 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 Patient returns today for a follow-up. He denies pain/discomfort. He will be evaluated by Dr. Miller next week. Objective Details: Right forearm AV fistula- incision c/d/i. No erythema or infection noted. Good pulse, bruit and thrill. Hand is warm. Hand Funnel Coater strength is good. Assessment AND Plan Problems [...] CC: PROGRESS Observed: 03/05/2018 Status: COMPLETED Source: [place] 2:11 PM [facility] [place] REPOSITORY O ID: [id number] Author: Luis Feliciano Service: (none) Author Type: [...] blood sugar, not following any diet, eats marshallese toast with syrups, having some high and [...] vein thrombosis (DVT) of right upper extremity ([facility]) 03/19/15 Diagnosed during hospital admission; coumadin started [...] MILD 02/07/2005 - Presence of suprapubic catheter ([facility]) Dr. Frias - Retention of urine, unspecified [...] on file NARRATIVE Patient [place] with 24 hour supervision. He has multiple [...] AT BEDTIME Disp: 100 tablet Rfl: 0 IN-ACID GAS RELIEF 80 mg chewable tablet CHEW [...] g Rfl: 3 COMPOUNDED PRESCRIPTION Please provide [facility] glucocard test strips to check blood sugar [...] 08/08/2012 2.29* 0.70 - 1.40 mg/dL Final HBA1CGreg (%) Date Value 02/02/2011 10.5* Hemoglobin A1C [...] 2018 CNOV Observed: 03/05/2018 Status: COMPLETED Source: [place] 1:25 PM [facility] REPOSITORY Office Visit (ENDMED) JARON MORSE ([id number]) 1980 M Date Time Provider Department 03/05/18 [...] blood sugar, not following any diet, eats marshallese toast with syrups, having some high and [...] vein thrombosis (DVT) of right upper extremity ([facility]) 03/19/15 Diagnosed during hospital admission; coumadin started [...] MILD 02/07/2005 - Presence of suprapubic catheter ([facility]) Dr. Frias - Retention of urine, unspecified [...] on file NARRATIVE Patient lives in [place],[facility] with 24 hour supervision. He [...] AT BEDTIME Disp: 100 tablet Rfl: 0 IN-ACID GAS RELIEF 80 mg chewable tablet CHEW [...] g Rfl: 3 COMPOUNDED PRESCRIPTION Please provide [facility] glucocard test strips to check blood sugar [...] 2.29* 0.70 - 1.40 mg/dL Final HBA1C, [place] (%) Date Value 02/02/2011 10.5* Hemoglobin A1C (%) Date Value 08/08/2012 8.9* ) No components found with this basename: urinealbumin Cholesterol (mg/dL) Date Value 04/11/2012 150 HDL Cholesterol (mg/dL) Date Value 04/11/2012 38* LDL Chol, [place] (mg/dL) Date Value 02/02/2011 92 LDL Cholesterol [...] March 05, 2018 Referring Provider: LUIS FELICIANO [[id number]] Allergies As of Date: 03/05/2018 Noted Allergy Reaction SEASONAL ALLERGIES 12/03/2012 14 - Other: See Comments Comments: Environmental-ragweed Date Reviewed: 03/05/2018 Reviewed by: Lakeisha Zamora Ma - Fully Assessed Reason for Visit: Diabetes [34] Primary Visit Diagnosis:Uncontrolled type 1 diabetes mellitus with hypoglycemia, unspecified hypoglycemia coma status ([facility]) [E10.649] Other Visit Diagnoses:CKD (chronic kidney disease) stage 4, GFR 15-29 ml/min ([facility]) [N18.4] Neuropathy ([facility]) [G62.9] 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 Objective Details: Right forearm AV fistula- incision c/d/i. No erythema or infection noted. Moderate amount of swelling and ecchymosis. good pulse, bruit and thrill. Steri- strips intact. Hand is warm. Hand Funnel Coater strength is good. Assessment AND Plan Problems [...] LEAD ELECTROCARDIOGRAM Observed: 02/20/2018 Status: F Source: [place] 1:54 PM [facility] REPOSITORY [facility] Cardiovascular Services [address] [place] [id number] 12 Lead EKG 02/16/18 0740 MR#: [id number] Acct: [id number] Name: FRACISCOTANYAJARON Rep #: [id number] : 1980 38 From: Manish Cuello MD Attending Dr: Hugh Abreu MD Status: DEP [facility] Ordering Dr: Hugh Abrue MD Date: 02/16/18 Location: [facility] Sex: M C Admitted: Test Reason : [...] was found Confirmed by MANISH CUELLO ([id number]), purchase request editor DALILA GABRIEL ([id number]) on 02/20/2018 1:54:09 PM Referred By: Hugh Abreu Confirmed By:MANISH CUELLO 02/20/18 1354 Date Manish Cuello MD CC: Francine Clark MD; Hugh Abreu MD Signed PROGRESS Observed: 02/20/2018 Status: COMPLETED Source: [place] 11:08 AM [facility] REPOSITORY HNO ID: [id number] Author: Joanne Montenegro (Vasile) Eric Service: (none) Author Type: Physician Agricultural Service Technician Type: Progress Notes Filed: 02/20/2018 12:58 PM [...] a smoker. He is here with his hall worker. Review of Systems Constitutional: Negative. Negative for [...] DISPOSABLE, (ULTICARE PEN NEEDLE) 31 gauge x /16 ndle Use to inject insulin 5 times [...] AT BEDTIME Disp: 100 tablet Rfl: 0 IN-ACID GAS RELIEF 80 mg chewable tablet CHEW [...] g Rfl: 3 COMPOUNDED PRESCRIPTION Please provide [facility] glucocard test strips to check blood sugar [...] fistula creation - COLONOSCOP W/ OR W/O [facility] SPEC 12/04/14 decompression for pseudoobstruction [...] PA-C CNOV Observed: 02/20/2018 Status: COMPLETED Source: [place] 11:00 AM [facility] REPOSITORY Office Visit (UCWSTR) JARON MORSE ([id number]) 1980 M Date Time Provider Department 02/20/18 11:00 AM JOANNE PAN) UCWSTR During your visit today, we recorded the [...] a smoker. He is here with his hall worker. Review of Systems Constitutional: Negative. Negative for [...] AT BEDTIME Disp: 100 tablet Rfl: 0 IN-ACID GAS RELIEF 80 mg chewable tablet CHEW [...] g Rfl: 3 COMPOUNDED PRESCRIPTION Please provide [facility] glucocard test strips to check blood sugar [...] TAKE 1 TABLET BY MOUTH DAILY * IN-ACID GAS RELIEF 80 MG CHEW* CHEW 1 [...] DISCHARGE INSTRUCTION Observed: 02/16/2018 Status: F Source: [place] 4:10 PM [facility] REPOSITORY [facility] Medical Records Department [address] [place] [address] Instructions for Home/Discharge Instructions 02/16/18 0843 MR#: [id number] Acct: [id number] Name: VIOLETA MORSENASEEM Jamison Rep #: [id number] : 1980 38 From: Hugh Abreu MD PCP: Francine Clark MD Status: DEP [facility] Discharge Diet: Renal Diet Discharge Activity: May [...] gm PO BID 02/09/18 Hydrocodone Bitart/Apap 5-325 [[place] 5MG-325MG] 1 tablet PO Q6H PRN PRN 3 Days #5 tablet 02/16/18 The following prescriptions were given: Hydrocodone Bitart/Apap 5-325 [[place] 5MG-325MG] 1 tablet PO Q6H PRN PRN 3 Days #5 tablet PRN Reason: Pain Primary Care Physician: Francine Clark MD [Primary Care Provider] - Test Results: Test results from this visit will be discussed in further detail at your follow-up appointment, if applicable. Please Follow Up With: Hugh Abreu MD - [phone] When: Call to make an appointment for suture removal and follow up in 1 week. 02/16/18 1610 <Electronically signed by Hugh Abreu MD> Date Hugh Abreu MD CC: Francine Clark MD BEDSIDE GLUCOSE Collected: 02/16/2018 Status: F Source: GREG 2:04 PM [facility] REPOSITORY TYPE CODE TESTS RESULT OUT OF REFERENCE UNITS RANGE LAB L501.080 70-110 mg/dL High BEDSIDE GLU 141 Result Comment: MANAGEMENT OF PATIENT CARE PER NURSING PROTOCOL Performed By: #### L501.080 #### [facility] Laboratory [facility] [address] [address] [place], [place] [address] BEDSIDE GLUCOSE Collected: 02/16/2018 Status: F Source: GREG 11:14 AM [facility] REPOSITORY TYPE CODE TESTS RESULT OUT OF REFERENCE UNITS RANGE LAB L501.080 70-110 mg/dL High BEDSIDE GLU 154 Result Comment: MANAGEMENT OF PATIENT CARE PER NURSING PROTOCOL Performed By: #### L501.080 #### [facility] Laboratory Point of Care [address] [place] [address] OPERATIVE REPORT Observed: 02/16/2018 Status: F Source: GREG 10:32 AM [facility] REPOSITORY [facility] Medical Records Department [place] [address] Operative Report 02/16/18 1029 MR#: [id number] Acct: [id number] Name: JARON MORSE Rep #: [id number] : 1980 38 From: Hugh Abreu MD PCP: Francine Clark MD Status: REG SD Y Location: [place] [address] Problem List (1) Problem with dialysis access [...] F Source: [place] NO DIFF 7:00 AM [facility] REPOSITORY TYPE CODE TESTS RESULT OUT OF [...] By: #### L100.0500, L500.2500 #### [facility] [address] [place], [place], [address] BASIC METABOLIC Collected: 02/16/2018 Status: F Source: [place] PROFILE (BMP) 7:00 AM [facility] REPOSITORY TYPE CODE TESTS RESULT OUT OF [...] By: #### L100.0500, L500.2500 #### [facility] [address] [place], [place], [address] BEDSIDE GLUCOSE Collected: 02/16/2018 Status: F Source: [place] 6:59 AM [facility] REPOSITORY TYPE CODE TESTS RESULT OUT OF REFERENCE UNITS RANGE LAB L501.080 70-110 mg/dL High BEDSIDE GLU 208 Result Comment: MANAGEMENT OF PATIENT CARE PER NURSING PROTOCOL Performed By: #### L501.080 #### [facility] Laboratory Point of Care [address] [place], [place] [address] PROGRESS Observed: 02/06/2018 Status: COMPLETED Source: [place] 1:43 PM CLINIC MAIN CAMPUS REPOSITORY HNO ID: [id number] Author: Georgi Lee (Cns) Service: (none) Author Type: Nurse Specialist Type: [...] Rhinitis Dvt of Left Axillary Vein, Acute ([facility]) Presents with caregiver who helps provide [...] MILD 02/07/2005 - Presence of suprapubic catheter ([facility]) Dr. Frias - Retention of urine, unspecified [...] 8pm. ULTICARE PEN NEEDLE 31 gauge x 5/16 [...] 1 TABLET BY MOUTH DAILY AT BEDTIME IN-ACID GAS RELIEF 80 mg chewable tablet CHEW [...] area twice daily. COMPOUNDED PRESCRIPTION Please provide [facility] glucocard test strips to check blood sugar [...] (H) 4.3 - 5.6 % Final Comment: [place] [employer] guidelines indicate that patients with HgbA1c in the range 5.7-6.4% are at increased risk for development of diabetes, and intervention by lifestyle modification may be beneficial. HgbA1c greater or equal to 6.5% is considered diagnostic of diabetes. 11/18/2016 8.8 (H) 4.3 - 5.6 % Final Comment: [place] [employer] guidelines indicate that patients with HgbA1c in the range 5.7-6.4% are at increased risk for development of diabetes, and intervention by lifestyle modification may be beneficial. HgbA1c greater or equal to 6.5% is considered diagnostic of diabetes. 08/09/2016 9.1 (H) 4.3 - 5.6 % Final Comment: [place] [employer] guidelines indicate that patients with HgbA1c in the range 5.7-6.4% are at increased risk for development of diabetes, and intervention by lifestyle modification may be beneficial. HgbA1c greater or equal to 6.5% is considered diagnostic of diabetes. 03/14/2016 9.5 (H) 4.3 - 5.6 % Final Comment: [place] [employer] guidelines indicate that patients with [...] and agreed with the plan. Georgi Lee APRN.CNS CNOV Observed: 02/06/2018 Status: COMPLETED Source: [place] 1:40 PM [facility] REPOSITORY Office Visit (INTMWS) JARON MORSE ([id number]) 1980 M Date Time Provider Department 02/06/18 1:40 PM GEORGI LEE (BRIAN) INTMWS During your visit today, we recorded [...] MILD 02/07/2005 - Presence of suprapubic catheter ([facility]) Dr. Frias - Retention of urine, unspecified 08/20/2007 - Type I (juvenile type) diabetes mellitus without mention of complication, not stated as uncontrolled 02/04/2005 Dr. Olmedo PAST SURGICAL HISTORY Procedure Laterality Date - APPENDECTOMY 2000 - AV FUSE, UPPR ARM, CEPHALIC 12/17/15 Transposition left upper arm cephalic vein to brachial artery arteriovenous fistula creation - COLONOSCOP W/ OR W/O [facility] SPEC 12/04/14 decompression for pseudoobstruction [...] 1 TABLET BY MOUTH DAILY AT BEDTIME IN-ACID GAS RELIEF 80 mg chewable tablet CHEW [...] area twice daily. COMPOUNDED PRESCRIPTION Please provide [facility] glucocard test strips to check blood sugar [...] (H) 4.3 - 5.6 % Final Comment: [place] [employer] guidelines indicate that patients with HgbA1c in the range 5.7-6.4% are at increased risk for development of diabetes, and intervention by lifestyle modification may be beneficial. HgbA1c greater or equal to 6.5% is considered diagnostic of diabetes. 11/18/2016 8.8 (H) 4.3 - 5.6 % Final Comment: [place] [employer] guidelines indicate that patients with HgbA1c in the range 5.7-6.4% are at increased risk for development of diabetes, and intervention by lifestyle modification may be beneficial. HgbA1c greater or equal to 6.5% is considered diagnostic of diabetes. 08/09/2016 9.1 (H) 4.3 - 5.6 % Final Comment: [place] [employer] guidelines indicate that patients with HgbA1c in the range 5.7-6.4% are at increased risk for development of diabetes, and intervention by lifestyle modification may be beneficial. HgbA1c greater or equal to 6.5% is considered diagnostic of diabetes. 03/14/2016 9.5 (H) 4.3 - 5.6 % Final Comment: [place] [employer] guidelines indicate that patients with [...] and potential side effects of medications. Mr. Mosre expressed understanding and agreed with the plan. Georgi Lee APRN.INTELLIGENCE APPLICATIONS Referring Provider: SELF [200] Allergies As of [...] in a.m.Disp: 1 PackageRfl: 0 HGB A1C [IXWRT8Q] Order #: [id number] FUTURE LIPID PANEL BASIC [SQLIPB] Order #: [id number] FUTURE COMP METABOLIC PANEL [SQCMP] Order #: [id number] FUTURE Prescriptions as of 02/06/2018 Sig: FERROUS [...] TAKE 1 TABLET BY MOUTH DAILY * IN-ACID GAS RELIEF 80 MG CHEW* CHEW 1 [...] BASIC METABOLIC Collected: 02/06/2018 Status: F Source: [place] PROFILE ([facility]) 8:35 AM [facility] REPOSITORY TYPE CODE TESTS RESULT OUT OF [...] Performed By: #### L500.2500 #### [facility] [address] [place], [address] SURGERY VISIT REPORT Observed: 01/26/2018 Status: F Source: [place] 12:40 PM [facility] REPOSITORY [facility] [address] [place] [address] OFFICE VISIT Date of Service: 01/25/18 MR#: [id number] Acct: [id number] Name: JARON MORSE Rep #: [id number] : 1980 Provider: Hugh Abreu MD Age/Sex: 38/M Location: [facility] Status: Signed with Addenda ADDENDUM by Hugh Abreu MD on 01/26/18 at 1240 Addendum entered and electronically signed by Hugh Abreu MD 01/26/18 12:40: I have records from [facility] dated July 13, 2017 with discharge July [...] not see that this was accomplished at [facility]. The patient was complaining of chronic right [...] surgical care Hugh Abreu M.D., F.A.C.S. 01/26/18 1240 <Electronically signed by Hugh Abreu MD> Date Hugh Abreu MD cc: * Signed Intake Intake Visit Reasons: FU AV Fistula Vein Mapping Complete 12/19 [facility] Log Deckman Required: No Is patient in pain?: No [...] unit SQ LUNCH 01/09/18 [History Confirmed 01/25/18] [facility] Medical History hx of PICC Line (Acute) [...] was hospitalized in August 2017 at [facility] with respiratory failure and renal blood clot. Per patient, dialysis was to be initiated at that hospitalization however the fistula was weak. Patient denies being on dialysis currently. 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 Patient has suprapubic catheter for urinary retention, diabetes type 1, and mild mental retardation. Patient has a history of blood clots. He is currently on Eliquis and aspirin. On December 19, 2017 at the [facility] the patient had bilateral upper extremity vein [...] August 2017. That apparently occurred over at [facility]. We do not have any records. There [...] healthy appearing Nutritional Appearance: obese Orientation: alert [facility] Head: normal to inspection Eyes General: appearance [...] 1. Problem with dialysis access, subsequent encounter T82.950D Plan The patient had a transposed left [...] Diagnoses Problem with dialysis access, subsequent encounter T82.958D Encounter type: subsequent encounter Time Spent (min) 01/25/18 0940 <Electronically signed by Hugh Abreu MD> Date Hugh Abreu MD Cosigner Signature: Date (if applicable) CC: BEDSIDE GLUCOSE Collected: 01/17/2018 Status: F Source: [place] 8:04 AM [facility] REPOSITORY TYPE CODE TESTS RESULT OUT OF REFERENCE UNITS RANGE LAB L501.080 70-110 mg/dL High BEDSIDE GLU 231 Result Comment: MANAGEMENT OF PATIENT CARE PER NURSING PROTOCOL Performed By: #### L501.080 #### [facility] Laboratory Point of Care [address] [place] [address] OPERATIVE REPORT Observed: 01/17/2018 Status: F Source: [place] 7:52 AM [facility] REPOSITORY [facility] Medical Records Department [address] [place] [address] Operative Report 01/17/18 0749 MR#: [id number] Acct: [id number] Name: JARON MORSE Rep #: [id number] : 1980 37 From: Jose Juan Lopez MD PCP: Francine Clark MD Status: [facility] Y Location: [place] [address] Report of Operation Date of Procedure: 01/17/18 [...] 01/17/2018 Status: F Source: GREG 7:49 AM [facility] REPOSITORY [facility] Medical Records Department [address] [place] [address] Instructions for Home/Discharge Instructions 01/17/18 0748 MR#: [id number] Acct: [id number] Name: JARON MORSE Rep #: [id number] : 1980 37 From: Jose Juan Lopez MD PCP: Francine Clark MD Status: REG [facility] Discharge Diet: No Restrictions Discharge Activity: Return to Normal Activity Catheter: Franco to large bag Drain: [place] Allergies/Adverse Reactions: Allergies No Known Allergies Allergy [...] BEDSIDE GLUCOSE Collected: 01/17/2018 Status: F Source: [place] 6:16 AM [facility] REPOSITORY TYPE CODE TESTS RESULT OUT OF REFERENCE UNITS RANGE LAB L501.080 70-110 mg/dL High BEDSIDE GLU 214 Result Comment: MANAGEMENT OF PATIENT CARE PER NURSING PROTOCOL Performed By: #### L501.080 #### [facility] Laboratory Point of Care [address] [place] [address] CARDIOLIPIN ANTIBODY Collected: 12/26/2017 Status: F Source: [place] 9:30 AM [facility] [place] REPOSITORY TYPE CODE TESTS RESULT OUT OF [...] SEE LUPUS PANEL, KK 0710 Account Credited Performed By: #### CARDIO, CBCDIF, IRON, CMP, DDMER, FERR, B12, SERIMM, SEPG, MPASRM, MMA #### [facility] [address] [place], [place] [address] CBC AND DIFFERENTIAL Collected: 12/26/2017 Status: F Source: [place] 9:30 AM [facility] REPOSITORY TYPE CODE TESTS RESULT OUT OF [...] k/uL Abs Lymph 1.78 LAB AMONO % [place]% 7.5 LAB AAMONO <0.87 k/uL Abs [place] 0.52 LAB AEOS % Eosin% 2.4 LAB AAEOS <0.46 k/uL Abs Eosin 0.17 LAB ABASO % Baso% 0.3 LAB AABASO <0.11 k/uL Abs Baso <0.03 LAB AUNRBC 0 /100 WBC NRBCs 0.0 LAB ABNRBC <0.01 k/uL Absolute nRBC <0.01 LAB DTYP DTYPE Auto Diff Performed By: #### CARDIO, CBCDIF, IRON, CMP, DDMER, FERR, B12, SERIMM, SEPG, MPASRM, MMA #### [facility] [employer] [address] [place], [place] [address] IRON AND TIBC Collected: 12/26/2017 Status: F Source: [place] 9:30 AM [facility] REPOSITORY TYPE CODE TESTS RESULT OUT OF REFERENCE UNITS RANGE LAB IRN 41-186 ug/dL Iron 69 LAB TIBC 232-386 ug/dL TIBC 240 LAB SAT 15-57 % Transferrin Saturatn 29 Performed By: #### CARDIO, CBCDIF, IRON, CMP, DDMER, FERR, B12, SERIMM, SEPG, MPASRM, MMA #### [facility] [address] [place], [place] [address] COMP METABOLIC PANEL Collected: 12/26/2017 Status: F Source: [place] 9:30 AM [facility] REPOSITORY TYPE CODE TESTS RESULT OUT OF REFERENCE UNITS RANGE LAB TP 6.3-8.0 g/dL Protein, High Total 8.7 LAB ALB 3.9-4.9 g/dL Albumin 4.3 LAB CA 8.5-10.2 mg/dL Calcium, Total 9.5 LAB TBIL 0.2-1.3 mg/dL Bilirubin, Total 0.3 LAB ALKP 36-108 U/L Alkaline Phosphatase 87 LAB AST 14-40 U/L AST 22 LAB GLU 74-99 mg/dL Glucose High 233 Result Comment: The [place] [employer] (ADA) provides guidance for cutoff [...] Standards of Medical Care in Diabetes 2016, [place] [employer]. Diabetes Care. 2016.39(Suppl 1). LAB [...] FERR, B12, SERIMM, SEPG, MPASRM, MMA #### [facility] [employer] [address] [place], [place] [address] D DIMER Collected: 12/26/2017 Status: F Source: [place] 9:30 AM [facility] REPOSITORY TYPE CODE TESTS RESULT OUT OF [...] FERR, B12, SERIMM, SEPG, MPASRM, MMA #### [facility] [employer] [address] [place], [place] [address] FERRITIN Collected: 12/26/2017 Status: F Source: [place] 9:30 AM [facility] REPOSITORY TYPE CODE TESTS RESULT OUT OF REFERENCE UNITS RANGE LAB FERR 30.3-565.7 ng/mL Ferritin 119.6 Performed By: #### CARDIO, CBCDIF, IRON, CMP, DDMER, FERR, B12, SERIMM, SEPG, MPASRM, MMA #### [facility] [address] [place] [id number] VITAMIN B12 Collected: 12/26/2017 Status: F Source: [place] 9:30 AM [facility] REPOSITORY TYPE CODE TESTS RESULT OUT OF REFERENCE UNITS RANGE LAB B12 232-1245 pg/mL Vitamin B12 691 Performed By: #### CARDIO, CBCDIF, IRON, CMP, DDMER, FERR, B12, SERIMM, SEPG, MPASRM, MMA #### [place] [address] IMMUNOGLOBULINS MARZENA Collected: 12/26/2017 Status: F Source: [place] 9:30 AM [facility] REPOSITORY TYPE CODE TESTS RESULT OUT OF RANGE REFERENCE UNITS LAB IGG 717-1411 mg/dL High IgG 2380 LAB IGA 78-391 mg/dL IgA 272 LAB IGM 53-334 mg/dL IgM 234 Performed By: #### CARDIO, CBCDIF, IRON, CMP, DDMER, FERR, B12, SERIMM, SEPG, MPASRM, MMA #### [place] [id number] [place] [id number] PROTEIN ELECTROPHOR. Collected: 12/26/2017 Status: F Source: [place] 9:30 AM [facility] REPOSITORY TYPE CODE TESTS RESULT OUT OF [...] Review Reviewed by Benedict Wei M.D., PhD ([id number]) Performed By: #### CARDIO, CBCDIF, IRON, CMP, DDMER, FERR, B12, SERIMM, SEPG, MPASRM, MMA #### [facility] [address] [place], [place] [address] MONOCLONL PROTEIN,BL Collected: 12/26/2017 Status: F Source: [place] 9:30 AM [facility] REPOSITORY TYPE CODE TESTS RESULT OUT OF REFERENCE UNITS RANGE LAB MPAIGG 717-1411 mg/dL High MPA Serum 2370 IgG LAB MPAIGA 78-391 mg/dL MPA Serum 264 IgA LAB MPAIGM 53-334 mg/dL MPA Serum 242 IgM LAB MPAK 534-1267 mg/dL High Serum 1770 Chloride LAB MPAL 253-653 mg/dL High Serum 1130 Lambda LAB MPAKL 1-3 MPA 1.57 Nabeel/Peña Ratio LAB MPAR No M protein is identified. No MPA M protein is Result identified. LAB MPASTF Staff Reviewed by Review Benedict Wei M.D., PhD ([id number]) Performed By: #### CARDIO, CBCDIF, IRON, CMP, DDMER, FERR, B12, SERIMM, SEPG, MPASRM, MMA #### [address] [address] METHYLMALONIC ACID Collected: 12/26/2017 Status: F Source: [place] 9:30 [facility] REPOSITORY TYPE CODE TESTS RESULT OUT OF REFERENCE UNITS RANGE LAB MMA 79-376 nmol/L Methylmalonic High Acid 655 Result Comment: This test was developed and its performance characteristics determined by [facility]'s [facility] [place] ([facility]). It has not been cleared or approved by the FDA. RT-[facility] is regulated under CLIA as qualified to perform high-complexity testing. This test is used for clinical purposes. It should not be regarded as investigational or for research. Performed By: #### CARDIO, CBCDIF, IRON, CMP, DDMER, FERR, B12, SERIMM, SEPG, MPASRM, MMA #### [facility] [address] [place], [place] [address] LUPUS ANTICOAG PANEL Collected: 12/26/2017 Status: F Source: [place] 9:30 AM [facility] REPOSITORY TYPE CODE TESTS RESULT OUT OF RANGE REFERENCE UNITS LAB PSEC 9.7-13.0 sec PT Sec 11.0 LAB INR 0.9-1.3 PT INR 1.1 Result Comment: Vitamin K Antagonist (VKA) Therapeutic Range: INR 2 to 3 (Target INR of 2.5) Note: For patients treated with VKA drugs, such as warfarin, the [place] [employer] 2012 Guideline recommends [...] Chest 2012, 141:7S-47S Crystal RA, et al. [facility] 2017, 70: 252-289 LAB APTT 23.0-32.4 [...] laboratory APTT reagent in use throughout the [facility]. LAB PLTNEU Negative PNP Negative LAB DRVSCN [...] endpoint titer. Performed By: #### LUPUSP #### [place] [address] HISTORY PHYSICAL Observed: 12/25/2017 Status: COMPLETED Source: [place] 10:40 AM [facility] [place] REPOSITORY O ID: [id number] Author: Kelby Huddleston Service: (none) Author Type: [...] and sodas with minimal water. No bleeding [place]. No h/o watery bowel movements/ recent change [...] with hyperactivity(314.01) - Chronic renal failure Dr. 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 - Hand fracture 07/2012 right - Hemorrhage of gastrointestinal tract, unspecified 08/21/2012 - Hypernatremia 03/07/2015 - Incisional infection 02/04/16 - Nocturnal enuresis 04/28/2005 - OTHER MENTAL RETARDATION - MILD 02/07/2005 - Presence of suprapubic catheter ([facility]) Dr. Frias - Retention of urine, unspecified 08/20/2007 - Type I (juvenile type) diabetes mellitus without mention of complication, not stated as uncontrolled 02/04/2005 Dr. 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) Ivy No Priority: C Overview Addendum 12/15/2015 11:34 AM by Francine Ricci DVT of left axillary vein, acute ([facility]) 08/01/2017 Corinne ([facility]) Older No Allergic rhinitis Francine Clark No Seborrheic dermatitis 10/05/2015 Francine Clark No Overview Signed 10/05/2015 3:28 PM by Francine Clark eyebrows and devlin and mustache area, as well as face 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 Francine Clark No Overview Signed 07/18/2014 5:43 PM by Francine Clark recurrent SBO and global dysmotility diagnosis when at [facility] Suprapubic catheter ([facility]) 12/09/2010 Claudia (Electrocardiogram Technician)(Hist) Trini No Mild intellectual disabilities 08/22/2008 Francine Clark No Hydronephrosis 10/18/2007 Alec Orozco No Attention deficit disorder with hyperactivity(314.01) 02/04/2005 [facility] Coord No Uncontrolled type 1 diabetes mellitus ([facility]) 02/04/2005 [facility] No MEDICATIONS Current Outpatient Prescriptions: apixaban [...] g Rfl: 3 COMPOUNDED PRESCRIPTION Please provide [employer] glucocard test strips to check blood sugar [...] mg intravenously one time only. 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 Abdomen: Normal abdominal exam Anorectal: Deferred Ball Maker present: Yes, Gian Silva Diagnostic tests reviewed for today's visit: CT scan of the abdomen Assessment ASSESSMENT Constipation RECOMMENDATION Dietary manipulation with the increased water intake. Kelby Huddleston MD FACS DATE: 12/25/17 TIME: 10:40 AM SHIELA Observed: 12/25/2017 Status: COMPLETED Source: [place] 10:00 AM [facility] REPOSITORY Office Visit ([facility]) JARON MORSE ([id number]) 1980 M Date Time Provider Department 12/25/17 10:00 AM KELBY HUDDLESTON During your visit today, we recorded the following information about you: Temperature Pulse Blood pressure Weight 98.3 degrees 87/minute 124/60 98.9 kg Height 1.626 m Kelby Huddleston MD [facility] 12/25/2017 11:30 AM Signed New Patient Consult [...] and sodas with minimal water. No bleeding [place]. No h/o watery bowel movements/ recent change [...] MILD 02/07/2005 - Presence of suprapubic catheter ([facility]) Dr. Frias - Retention of urine, unspecified 08/20/2007 - Type I (juvenile type) diabetes mellitus without mention of complication, not stated as uncontrolled 02/04/2005 Dr. Olmedo PAST SURGICAL HISTORY Procedure Laterality Date - APPENDECTOMY 2000 - AV FUSE, UPPR ARM, CEPHALIC 12/17/15 Transposition left upper arm cephalic vein to brachial artery arteriovenous fistula creation - COLONOSCOP W/ OR W/O [facility] SPEC 12/04/14 decompression for pseudoobstruction [...] By Resolved Resolved By Nephrogenic diabetes insipidus ([facility]) 03/07/2015 Virginia Ziegler) Kvng No Priority: B CKD (chronic kidney disease) stage 4, GFR 15-29 ml/min ([facility]) 09/14/2011 Monisha Pearson ([place])(Hist) Ivy No Priority: C Overview Addendum 12/15/2015 11:34 AM by Francine Ricci DVT of left axillary vein, acute ([facility]) 08/01/2017 Corinne ([facility]) Older No Allergic rhinitis Francine Clark No Seborrheic dermatitis 10/05/2015 Francine Clark No Overview Signed 10/05/2015 3:28 PM by Francine Clark eyebrows and devlin and mustache area, as well as face 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 Francine Clark No Overview Signed 07/18/2014 5:43 PM by Francine Clark recurrent SBO and global dysmotility diagnosis when at [facility] Suprapubic catheter ([facility]) 12/09/2010 Claudia (Angie)(Hist) Trini No Mild intellectual disabilities 08/22/2008 Francine Clark No Hydronephrosis 10/18/2007 Alec Orozco No Attention deficit disorder with hyperactivity(314.01) 02/04/2005 [facility] No Uncontrolled type 1 diabetes mellitus ([facility]) 02/04/2005 [facility] No MEDICATIONS Current Outpatient Prescriptions: apixaban [...] g Rfl: 3 COMPOUNDED PRESCRIPTION Please provide [employer] glucocard test strips to check blood sugar [...] mg intravenously one time only. 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 Abdomen: Normal abdominal exam Anorectal: Deferred Ball Maker present: Yes, Gian Silva Diagnostic tests reviewed for today's visit: CT scan of the abdomen Assessment ASSESSMENT Constipation RECOMMENDATION Dietary manipulation with the increased water intake. Kelby Huddleston MD [facility] DATE: 12/25/17 TIME: 10:40 AM Referring Provider: SELF [200] Allergies As of Date: 12/25/2017 Noted Allergy Reaction SEASONAL ALLERGIES 12/03/2012 14 - Other: See Comments Comments: Environmental-ragweed Date Reviewed: 12/25/2017 Reviewed by: Gian (Rn) BRITTANY Silva - Fully Assessed Reason for Visit: Consult [...] RECOMBINANT) * Inject 1 mg intravenously one* IN-ACID GAS RELIEF 80 MG CHEW* CHEW 1 [...] (U-100) 100 UNIT/ML SUBCUTANEOUS PEN >> Gian Sivla RN, RN 12/25/2017 10:38 AM >> GIAN [...] EMERGENCY DEPARTMENT Observed: 12/25/2017 Status: F Source: [place] SUMMARY 2:21 AM [facility] REPOSITORY [facility] Medical Records Department [address] [place] [address] Emergency Department Summary 12/24/172056 MR#: [id number] Acct: [id number] Name: JARON MORSE Rep #: [id number] : 1980 37 From: Harshad Patel MD PCP: Francine Clark MD Status: DEP ER - ER Visit Summary Date of Service: 12/24/17 Chief Complaint: Hematuria History of Present Illness: The patient is a [address] Clark, Dr. Lopez, and Dr. Miller. He has a suprapubic catheter. Comes in [...] renal insufficiency. This note was generated with [employer] dictation software. It may contain incorrect words, [...] your Primary Care Provider. Call [facility] ([phone]) or report to the closest Emergency Room. Call 911 if necessary. 12/25/17 0221 <Electronically signed by Harshad aPtel MD> Date Harshad Patel MD Cosigner Signature (If Indicated): Date CC: Francine Clark MD URINALYSIS, COMPLETE Collected: 12/24/2017 Status: F Source: [place] 7:50 PM [facility] REPOSITORY Order Comment: Order Date: 12/24/17 How [...] Performed By: #### L400.0001 #### [facility] [place], [address] Observed: 12/24/2017 Status: F Source: [place] CULTURE, URINE 7:50 PM [facility] REPOSITORY Order Date: 12/24/17 Urine Culture ORGANISM 1: Citrobacter freundii [place] Count 50,000-80,000 Citrobacter freundii: REACTION Amoxacillin/Clavulanic Acid $ >=32 R Cefazolin $ >=64 R Cefepime $ <=1 S Ceftriaxone $ 32 I Ciprofloxacin $ 1 S Ertapenim $$$ <=0.5 S Gentamicin $ <=1 S Imipenem *NF 1 S Levofloxacin $ 2 S Nitrofurantoin $ 32 S Tobramycin $ <=1 S Trimethoprim/Sulfametho $ >=320 R (NF) indicates non-formulary drug at [facility]. Approval by Infectious Disease Specialist required before non-formulary drugs may be ordered and/or dispensed. Performed By: #### M100.0650 #### [facility] [address] [place], [place], [id number] CBC W/DIFF, AUTOMATED Collected: 12/24/2017 Status: F Source: [place] 7:10 PM [facility] REPOSITORY TYPE CODE TESTS RESULT OUT OF [...] Performed By: #### L100.0100 #### [facility] [address] [place], [address] BASIC METABOLIC Collected: 12/24/2017 Status: F Source: [place] PROFILE (BMP) 7:10 PM [facility] REPOSITORY TYPE CODE TESTS RESULT OUT OF [...] Performed By: #### L500.2500 #### [facility] [address] [place], [address] VENOUS DUPLEX UPPER Observed: 12/19/2017 Status: F Source: [place] EXTREMITY 4:49 PM [facility] REPOSITORY [facility] Cardiovascular Services [address] [place] [address] Saphenous Vein Mapping, Bilat 12/19/17 1301 MR#: [id number] Acct: [id number] Name: JARON MORSE Rep #: [id number] : 1980 37 From: Hugh Abreu MD Attending Dr: Hugh Abreu MD Status: REG CLI Ordering Dr: Taylor Owens PA-C Date: 12/19/17 Location: [facility] Sex: M C Admitted: Reason For Study: [...] Abreu Performed By: Yas Dalton RVT 12/19/17 1649 Date Hugh Abreu MD CC: Taylor Owens PA-C; Francine Clark MD; Hugh Abreu MD Date Dictated: 12/19/17 1301 Date Transcribed: 12/19/17 1649 [employer] Consultant: Signed SURGERY VISIT REPORT Observed: 12/14/2017 Status: F Source: [place] 12:49 PM [facility] REPOSITORY [facility] [address] [place] [address]. [address] [place], [place] [address] OFFICE VISIT Date of Service: 12/13/17 MR#: [id number] Acct: [id number] Name: JARON MORSE Rep #: [id number] : 1980 Provider: Taylor Owens PA-C Age/Sex: 37/M Location: [facility] Status: Signed Intake Vital Signs12/13/17 Height 5 ft 4.5 in 12/13/17 Weight: 218 lb Intake Visit Reasons: AV Fistula not working properly Log Deckman Required: No Is patient in pain?: No [...] applic TOPICAL Q2W 12/13/17 [History Confirmed 12/13/17] PFSH Medical History hx of PICC Line [...] was hospitalized in August 2017 at [facility] with respiratory failure and renal blood clot. Per patient, dialysis was to be initiated at that hospitalization however the fistula was weak. Patient denies being on dialysis currently. 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 HENMT Head: normal to inspection Eyes General: appearance [...] following imaging. Our office will contact Dr. Miller's office to discuss future plan and treatment. Patient and his social insurance adviser have had the opportunity to ask and have questions answered. Orders Orders: Coding Level of Care Code Off vis,est,level 4 Diagnoses Stage 4 chronic kidney disease N18.4 Chronic kidney disease stage: stage 4 (severe) 12/14/17 1249 <Electronically signed by Taylor Owens PA-C> Date Taylor Owens PA-C Cosigner Signature: Date (if applicable) CC: Madi Miller M.D.; Francine Clark MD PROGRESS Observed: 12/12/2017 Status: COMPLETED Source: [place] 9:28 AM [facility] [place] REPOSITORY [facility] ID: [id number] Author: Luis Feliciano Service: (none) Author Type: [...] blood sugar, not following any diet, eats marshallese toast with syrups, having some high and [...] MILD 02/07/2005 - Presence of suprapubic catheter ([facility]) Dr. Frias - Retention of urine, unspecified 08/20/2007 - Type I (juvenile type) diabetes mellitus without mention of complication, not stated as uncontrolled 02/04/2005 Dr. Olmedo PAST SURGICAL HISTORY Procedure Laterality Date - APPENDECTOMY 2000 - AV FUSE, UPPR ARM, CEPHALIC 12/17/15 Transposition left upper arm cephalic vein to brachial artery arteriovenous fistula creation - COLONOSCOP W/ OR W/O [facility] SPEC 12/04/14 decompression for pseudoobstruction [...] on file NARRATIVE [place] with 24 hour supervision. He [...] AT BEDTIME Disp: 100 tablet Rfl: 0 IN-ACID GAS RELIEF 80 mg chewable tablet CHEW [...] g Rfl: 3 COMPOUNDED PRESCRIPTION Please provide [employer] glucocard test strips to check blood sugar [...] 2.29* 0.70 - 1.40 mg/dL Final HBA1C, [place] (%) Date Value 02/02/2011 10.5* Hemoglobin A1C [...] 2017 CNOV Observed: 12/12/2017 Status: COMPLETED Source: [place] 9:05 AM [facility] REPOSITORY Office Visit (ENDMED) JARON MORSE ([id number]) 1980 M Date Time Provider Department 12/12/17 [...] blood sugar, not following any diet, eats marshallese toast with syrups, having some high and [...] MILD 02/07/2005 - Presence of suprapubic catheter ([facility]) Dr. Frias - Retention of urine, unspecified [...] on file NARRATIVE Patient lives [place],[facility] with 24 hour supervision. He [...] 3 ULTICARE PEN NEEDLE 31 gauge x /16 ndle TAKE FIVE- SIX INJECTIONS DAILY INSTRUCTED [...] AT BEDTIME Disp: 100 tablet Rfl: 0 IN-ACID GAS RELIEF 80 mg chewable tablet CHEW [...] g Rfl: 3 COMPOUNDED PRESCRIPTION Please provide [facility] glucocard test strips to check blood sugar [...] mLRfl: 3 TSH BLD [SQTSH] Order #: [id number] FUTURE DIABETES EDUCATION (CDE) (X20) [[id number]] Order #: [id number]: 1 Prescriptions as of 12/12/2017 Sig: GLUCAGON [...] TABLET TAKE (1) TABLET BY MOUTH ONCE* IN-ACID GAS RELIEF 80 MG CHEW* CHEW 1 [...] DISCHARGE INSTRUCTION Observed: 12/10/2017 Status: F Source: [place] 6:47 AM [facility] REPOSITORY [facility] Medical Records Department [address] [place] [address] Discharge Instruction 12/10/1746 MR#: [id number] Acct: [id number] Name: JARON MORSE Rep #: [id number] : 1980 37 From: Marlon Jarrett DO [...] your Primary Care Provider. Call [facility] ([phone]) or report to the closest Emergency Room. Call 911 if necessary. 12/10/17 0647 <Electronically signed by Marlon Jarrett DO> Date Marlon Jarrett DO Cosigner Signature (If Indicated): Date CC: Francine Clark MD EMERGENCY DEPARTMENT Observed: 12/10/2017 Status: F Source: [place] SUMMARY 6:46 AM [facility] REPOSITORY [facility] Medical Records Department [address] [place] [address] Emergency Department Summary 12/10/17 0643 MR#: [id number] Acct: [id number] Name: JARON OMRSE Rep #: [id number] : 1980 37 From: Marlon Jarrett DO [...] and Treatment: [Patient normally has an 18 Niuean catheter therefore I was able to easily replace the suprapubic catheter with an 18 Niuean Franco.] Immediate return of urine on placement of catheter. Treatment Plan: [Patient to follow-up with his primary care physician as needed] Disposition: [Discharged to home in stable condition] Impression: [Suprapubic catheter replaced] This note was generated with [employer] software. It may contain incorrect words, spelling, [...] your Primary Care Provider. Call [facility] ([phone]) or report to the closest Emergency Room. Call 911 if necessary. 12/10/17 0646 <Electronically signed by Marlon Jarrett DO> Date Nazaninus Scottchristianne DO Cosigner Signature (If Indicated): Date CC: Francine Clark MD Observed: 12/07/2017 Status: F Source: [place] URINE CULTURE 10:35 PM [facility] REPOSITORY Sp. Request/Comment: - Specimen received in preservative Culture Result - 10,000 - <50,000 CFU/ml Lactose negative gram negative bacilli --> ABNORMAL ALERT Insignificant colony count. No further workup. --> ABNORMAL ALERT 10,000 - <50,000 CFU/ml Normal urogenital natalie Performed By: #### URCUL #### [facility] [address] [place], [place] [address] PROGRESS Observed: 12/07/2017 Status: COMPLETED Source: [place] 10:11 AM [facility] REPOSITORY HNO ID: [id number] Author: Ronn Gallo Service: (none) Author Type: [...] MILD 02/07/2005 - Presence of suprapubic catheter ([facility]) Dr. Frias - Retention of urine, unspecified 08/20/2007 - Type I (juvenile type) diabetes mellitus without mention of complication, not stated as uncontrolled 02/04/2005 Dr. Olmedo PAST SURGICAL HISTORY Procedure Laterality Date - APPENDECTOMY 2000 - AV FUSE, UPPR ARM, CEPHALIC 12/17/15 Transposition left upper arm cephalic vein to brachial artery arteriovenous fistula creation - [facility] 12/04/14 decompression for pseudoobstruction - COLONOSCOPY [...] tablet - melatonin 3 mg tablet - IN-ACID GAS RELIEF 80 mg chewable tablet - [...] kidney disease) stage 4, GFR 15-29 ml/min ([facility]) - ICD9: 585.4, ICD10: N18.4 stable 4. Other specified abdominal hernia without obstruction or gangrene - ICD9: 553.8, ICD10: K45.8 To follow up with primary care team if anything needs to be done about the hernia RONN GALLO MD CNOV Observed: 12/07/2017 Status: COMPLETED Source: [place] 9:40 AM [facility] REPOSITORY Office Visit (INTMWS) MINIJARON Yaquelin ([id number]) 1980 M Date Time Provider Department 12/07/17 [...] MILD 02/07/2005 - Presence of suprapubic catheter ([facility]) Dr. Frias - Retention of urine, unspecified [...] tablet - melatonin 3 mg tablet - IN-ACID GAS RELIEF 80 mg chewable tablet - [...] kidney disease) stage 4, GFR 15-29 ml/min ([facility]) - ICD9: 585.4, ICD10: N18.4 stable 4. [...] [K45.8] Order(s):URINALYSIS WITH MICROSCOPIC [SQUAWMIC] Order #: [id number] CBC + DIFF [SQCBCDIF] Order #: [id number] FUTURE URINE CULTURE [SQURCUL] Order #: [id number] Prescriptions as of 12/07/2017 Sig: POLYETHYLENE GLYCOL [...] TAKE 1 TABLET BY MOUTH DAILY * IN-ACID GAS RELIEF 80 MG CHEW* CHEW 1 [...] EMERGENCY DEPARTMENT Observed: 11/30/2017 Status: F Source: [place] SUMMARY 11:03 PM [facility] REPOSITORY [facility] Medical Records Department [address] [place] [address] Emergency Department Summary 11/30/172005 MR#: [id number] Acct: [id number] Name: JARON MORSE Rep #: [id number] : 1980 37 From: Radha Velasco MD [...] pain, UTI This note was generated with [employer] dictation software. It may contain incorrect words, [...] your Primary Care Provider. Call [facility] ([phone]) or report to the closest Emergency Room. Call 911 if necessary. 11/30/172302 <Electronically signed by Radha Velasco MD> Date Radha Velasco MD Cosigner Signature (If Indicated): Date CC: Francine Clark MD DISCHARGE INSTRUCTION Observed: 11/30/2017 Status: F Source: [place] 10:56 PM [facility] REPOSITORY [facility] Medical Records Department [address] [place] [address] Discharge Instruction 11/30/172254 MR#: [id number] Acct: [id number] Name: JARON MORSE Yaquelin Rep #: [id number] : 1980 37 From: Radha Velasco MD [...] your Primary Care Provider. Call [facility] ([phone]) or report to the closest Emergency Room. Call 911 if necessary. 11/30/172255 <Electronically signed by Radha Velasco MD> Date Radha Velasco MD Cosigner Signature (If Indicated): Date CC: Francine Clark MD URINALYSIS, COMPLETE Collected: 11/30/2017 Status: F Source: [place] 10:00 PM [facility] REPOSITORY Order Comment: How was Urine Obtained? [...] Performed By: #### L400.0001 #### [facility] [address] [place], [address] Observed: 11/30/2017 Status: F Source: [place] CULTURE, URINE 10:00 PM [facility] REPOSITORY Order Date: 11/30/17 Urine Culture ORGANISM 1: Serratia marcescens [place] Count 80,000-100,000 ORGANISM 2: Citrobacter freundii [place] Count 50,000-80,000 Serratia marcescens: REACTION Amoxacillin/Clavulanic Acid $ >=32 R Cefazolin $ >=64 R Cefepime $ <=1 S Ceftriaxone $ 16 I Ciprofloxacin $ 1 S Ertapenim $$$ <=0.5 S Gentamicin $ <=1 S Levofloxacin $ 1 S Nitrofurantoin $ 256 R Tobramycin $ <=1 S Trimethoprim/Sulfametho $ >=320 R (NF) indicates non-formulary drug at [facility]. Approval by Infectious Disease Specialist required [...] (NF) indicates non-formulary drug at [facility]. Approval by Infectious Disease Specialist required before non-formulary drugs may be ordered and/or dispensed. Performed By: #### M100.0650 #### [facility] [place], [address] CBC W/DIFF, AUTOMATED Collected: 11/30/2017 Status: F Source: [place] 8:15 PM [facility] REPOSITORY TYPE CODE TESTS RESULT OUT OF [...] Performed By: #### L100.0100 #### [facility] [address] [place], [address] COMPREHENSIVE METABOLIC Collected: 11/30/2017 Status: F Source: [facility] 8:15 PM [facility] REPOSITORY TYPE CODE TESTS RESULT OUT OF [...] Performed By: #### L500.4050 #### [facility] [address] [facility] [place], [address] ABDOMEN/PELVIS WITHOUT Observed: 11/30/2017 Status: F Source: [place] CONT 8:06 PM [facility] REPOSITORY [facility] Imaging Services [address] [place] [address] Abdomen/Pelvis without Cont MR#: [id number] Acct: [id number] Name: JARON MORSE Yaquelin Rep #: [id number] : 1980 M 37 From: Guille Bobo MD PCP: Francine Clark MD Status: REG ER Study: Abdomen/Pelvis without Cont Date of Exam: 11/30/17 Exam# [id number] Ordering Dr: Radha Velasco MD STUDY: CT [...] CC: Radha Velasco MD; Francine Clark MD [employer] Consultant: Signed PROTEIN+CREATININE Collected: Status: F Source: [place] RATIO,URINE 11/17/2017 7:34 AM [facility] REPOSITORY TYPE CODE TESTS RESULT OUT OF RANGE REFERENCE UNITS LAB L501.1200 NO RANGE EST. mg/dL 21.50 Normal UR CREAT LAB L501.1930 <11.9 mg/dL < 6.0 Normal PROTEIN,UR. RAN. LAB L501.1940 0-200 mg/g CRE Test Normal not performed PROT:CRE RATIO Performed By: #### L501.0900, L502.0250 #### [facility] [address] [place], [place], [id number] MICROALB:CREAT Collected: 11/17/2017 Status: F Source: [place] RATIO,RANDOM UR 7:34 AM [facility] REPOSITORY TYPE CODE TESTS RESULT OUT OF RANGE REFERENCE UNITS LAB L502.0500 NO RANGE EST. mg/L Normal 62.5 MICROALBUMIN ,UR LAB L502.0600 <30 mg/g CRE mg/g CRE High 290.7 MALB:CREAT Performed By: #### L501.0900, L502.0250 #### [facility] [address] [place], [place], [id number] CBC-COMPLETE BLOOD CNT Collected: 11/17/2017 Status: F Source: [place] NO DIFF 7:34 AM [facility] REPOSITORY TYPE CODE TESTS RESULT OUT OF [...] Performed By: #### L100.0500 #### [facility] [address] [place], [place], [id number] RENAL PROFILE Collected: 11/17/2017 Status: F Source: [place] 7:34 AM [facility] REPOSITORY TYPE CODE TESTS RESULT OUT OF [...] Performed By: #### L500.3600 #### [facility] [address] [facility] [place], [address] VITAMIN D,25 HYDROXY Collected: 11/17/2017 Status: F Source: [place] 7:34 AM [facility] REPOSITORY TYPE CODE TESTS RESULT OUT OF RANGE REFERENCE UNITS LAB L506.1000 29.95-100.01 ng/mL Normal Vitamin D 50.8 25-OH Result Comment: Vitamin D 25(OH) Status Range Deficiency <20 ng/mL (50nmol/L) Insuffciency 20 - 30 ng/mL (50 - 75 nmol/L) Sufficiency 30 - 100 ng/mL (75 - 250 nmol/L) Toxicity >100 ng/mL (>250 nmol/L) Performed By: #### L506.1000 #### [facility] [address] [place], [address] PTHIN Collected: 11/17/2017 Status: F Source: [place] 7:34 AM [facility] REPOSITORY TYPE CODE TESTS RESULT OUT OF RANGE REFERENCE UNITS LAB L509.1000 18.4-80.1 pg/mL High PTHIN 118.4 Performed By: #### L509.1000 #### [facility] [address] [place], [address] CBC Collected: 11/10/2017 Status: F Source: [place] 8:10 AM [facility] REPOSITORY TYPE CODE TESTS RESULT OUT OF [...] nRBC <0.01 Performed By: #### CBC #### [facility] [address] [place], [place] [address] ALBUMIN/CREAT RATIO Collected: 11/10/2017 Status: F Source: [place] 8:10 AM [facility] REPOSITORY TYPE CODE TESTS RESULT OUT OF [...] 1994, 25:107) Performed By: #### UACR #### [facility] [address] [place], [place] [address] COMP METABOLIC PANEL Collected: 11/10/2017 Status: F Source: [place] 8:10 AM [facility] REPOSITORY TYPE CODE [...] mg/dL Glucose High 202 Result Comment: The [place] Diabetes Association (ADA) provides guidance for cutoff [...] Standards of Medical Care in Diabetes 2016, [place] Diabetes Association. Diabetes Care. 2016.39(Suppl 1). LAB [...] has been calibrated to be traceable to IDMN. An eGFR <60 mL/min/1.73m2 for >3 months is consistent with chronic kidney disease. Refer to KDOQI guidelines for clinical interpretation. In patients with unstable renal function, e.g. those with acute kidney injury, the eGFR may not accurately reflect actual GFR. Performed By: #### CMP, HBA1C #### [facility] [address] [place], [place] [address] HEMOGLOBIN A1C Collected: 11/10/2017 Status: F Source: [place] 8:10 AM [facility] REPOSITORY TYPE CODE TESTS RESULT OUT OF REFERENCE UNITS RANGE LAB HGBA1C 4.3-5.6 % High Hemoglobin A1c 7.5 LAB HBA0 mg/dL Est. Average Glucose 169 Result Comment: eAG: (Estimated average glucose) is a calculated value from HgbA1c and is hospital insurance representative of the average blood glucose level in the last 2-3 month period. Performed By: #### CMP, HBA1C #### [facility] [address] [place], [place] [address] BASIC METABOLIC PANL Collected: 11/10/2017 Status: F Source: [place] 8:10 AM [facility] REPOSITORY TYPE CODE TESTS RESULT OUT OF REFERENCE UNITS RANGE LAB GLU 74-99 mg/dL High Glucose 209 Result Comment: The [place] Diabetes Association (ADA) provides guidance for cutoff [...] Standards of Medical Care in Diabetes 2016, [place] Diabetes Association. Diabetes Care. 2016.39(Suppl 1). LAB [...] actual GFR. Performed By: #### BMP #### [facility] [address] [place], [place] [address] ANTI XA INHIB ASSAY Collected: 11/10/2017 Status: F Source: [place] *LAB USE ONLY* 8:10 AM [facility] REPOSITORY TYPE CODE TESTS RESULT OUT OF REFERENCE UNITS RANGE LAB ANTIXA Anti Anti Xa Xa Inhib activity was Assay *LAB detected. USE ONLY* Result Comment: This test was developed and its performance characteristics determined by [facility] [place] ([facility]). It has not been cleared or approved by the FDA. [facility] is regulated under CLIA as qualified to perform high-complexity testing. This test is used for clinical purposes. It should not be regarded as investigational or for research. Performed By: #### ANTIXA, LUPUSP #### [facility] [address] [place], [place] [address] LUPUS ANTICOAG PANEL Collected: 11/10/2017 Status: F Source: [place] 8:10 AM [facility] REPOSITORY TYPE CODE TESTS RESULT OUT OF RANGE REFERENCE UNITS LAB PSEC 9.7-13.0 sec PT Sec 10.8 LAB INR 0.9-1.3 PT INR 1.0 Result Comment: Vitamin K Antagonist (VKA) Therapeutic Range: INR 2 to 3 (Target INR of 2.5) Note: For patients treated with VKA drugs, such as warfarin, the [place] [employer]icians 2012 Guideline recommends [...] Chest 2012, 141:7S-47S Crystal RA, et al. [facility] 2017, 70: 252-289 LAB APTT 23.0-32.4 [...] laboratory APTT reagent in use throughout the [facility]. LAB PLTNEU Negative PNP This Abnormal test [...] The following results were obtained with an studentSNA Rocketboome ADELE IgA III KWADWO. Cardiolipin IgA values [...] titer. Performed By: #### ANTIXA, LUPUSP #### [facility] [address] [place], [place] [address] CNOV Observed: 11/06/2017 Status: COMPLETED Source: [place] 12:20 PM [facility] REPOSITORY Office Visit (INTMWS) JARON MORSE ([id number]) 1980 M Date Time Provider Department 11/06/17 12:20 PM GEORGI LEE (BRIAN) INTMWS During your visit today, we recorded the following information about you: Pulse Respiration Blood pressure Weight 84/minute 16/minute 124/84 96.6 kg Georgi Lee APRN.BRIAN 11/06/2017 1:30 PM Signed OUTPATIENT VISIT DATE [...] Kidney Disease) Stage 4, Gfr 15-29 Ml/Min ([facility]) 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 Since the last visit, he was admitted to [facility] September 06, 2017 through September 22, 2017. [...] probable pneumonia on meropenem improved. Discharged to [facility] for rehabilitation, now back at [place] [facility]. Seen by Dr. Hodge 10/17/3027. Continuous suprapubic [...] MILD 02/07/2005 - Presence of suprapubic catheter ([facility]) Dr. Frias - Retention of urine, unspecified 08/20/2007 - Type I (juvenile type) diabetes mellitus without mention of complication, not stated as uncontrolled 02/04/2005 Dr. Olmedo PAST SURGICAL HISTORY Procedure Laterality Date - APPENDECTOMY 2000 - AV FUSE, UPPR ARM, CEPHALIC 12/17/15 Transposition left upper arm cephalic vein to brachial artery arteriovenous fistula creation - [facility]/04/14 decompression for pseudoobstruction - COLONOSCOPY [...] NO BM BY 8PM, GIVE 3RD DOSE IN-ACID GAS RELIEF 80 mg chewable tablet CHEW [...] mouth once daily. COMPOUNDED PRESCRIPTION Please provide [facility] glucocard test strips to check blood sugar [...] (H) 4.3 - 5.6 % Final Comment: [place] Diabetes [employer] guidelines indicate that patients with HgbA1c in the range 5.7-6.4% are at increased risk for development of diabetes, and intervention by lifestyle modification may be beneficial. HgbA1c greater or equal to 6.5% is considered diagnostic of diabetes. 11/18/2016 8.8 (H) 4.3 - 5.6 % Final Comment: [place] [employer] guidelines indicate that patients with HgbA1c in the range 5.7-6.4% are at increased risk for development of diabetes, and intervention by lifestyle modification may be beneficial. HgbA1c greater or equal to 6.5% is considered diagnostic of diabetes. 08/09/2016 9.1 (H) 4.3 - 5.6 % Final Comment: [place] Diabetes [employer] guidelines indicate that patients with HgbA1c in the range 5.7-6.4% are at increased risk for development of diabetes, and intervention by lifestyle modification may be beneficial. HgbA1c greater or equal to 6.5% is considered diagnostic of diabetes. 03/14/2016 9.5 (H) 4.3 - 5.6 % Final Comment: [place] [employer] guidelines indicate that patients with HgbA1c in the range 5.7-6.4% are at increased risk for development of diabetes, and intervention by lifestyle modification may be beneficial. HgbA1c greater or equal to 6.5% is considered diagnostic of diabetes. 10/27/2015 10.3 (H) 4.3 - 5.6 % Final Comment: [place] [employer] guidelines indicate that patients with HgbA1c in the range 5.7-6.4% are at increased risk for development of diabetes, and intervention by lifestyle modification may be beneficial. HgbA1c greater or equal to 6.5% is considered diagnostic of diabetes. Ejection Fraction - Result: 58 % Date: 03/30/2015 Time: 10:48:46 IMPRESSION: Mr. Morse is a 37 year old And presents for care home discharge follow-up. Currently in [place] [facility]. Initially seen at [facility] September 06 - September 22. Cystoscopy planned with Dr. Hodge. After my examination and review of data, I make the following recommendations. PLAN AND RECOMMENDATIONS: 1. Uncontrolled type 1 diabetes mellitus with stage 3 chronic kidney disease, with long-term current use of insulin (HCC) - ICD9: 250.43, 585.3, ICD10: E10.22, E10.65, N18.3 (primary diagnosis) - HGB A1C - INSULIN LISPRO (U-100) 100 UNIT/ML SUBCUTANEOUS PEN - BASIC METABOLIC PNL 2. CKD (chronic kidney disease) stage 4, GFR 15-29 ml/min (HCC) - ICD9: 585.4, ICD10: N18.4 - BASIC METABOLIC PNL 3. Hydronephrosis with ureteral stricture, not elsewhere classified - ICD9: 591, ICD10: N13.1 - BASIC METABOLIC PNL 4. Excessive cerumen in ear canal, bilateral - ICD9: 380.4, ICD10: H61.23 - CARBAMIDE PEROXIDE 6.5 % EAR DROPS 5. Acute respiratory failure with hypoxia (HCC) - ICD9: 518.81, ICD10: J96.01 6. Bilateral hydronephrosis - ICD9: 591, ICD10: N13.30 - BASIC METABOLIC PNL 7. Acute kidney injury (HCC) - ICD9: 584.9, ICD10: N17.9 - BASIC METABOLIC PNL 8. Severe sepsis with acute organ dysfunction due to Serratia species ([facility]) - ICD9: 038.44, 995.92, ICD10: A41.53, R65.20 [...] and agreed with the plan. Georgi Lee APRN.BRIAN Lee APRN.CNS 11/06/2017 1:07 PM Signed Complete [...] with long- term current use of insulin ([facility]) [E10.22, E10.65, N18.3] Other Visit Diagnoses:CKD (chronic kidney disease) stage 4, GFR 15-29 ml/min ([facility]) [N18.4] Hydronephrosis with ureteral stricture, not elsewhere classified [N13.1] Excessive cerumen in ear canal, bilateral [H61.23] Acute respiratory failure with hypoxia ([facility]) [J96.01] Bilateral hydronephrosis [N13.30] Acute kidney injury ([facility]) [N17.9] Severe sepsis with acute organ dysfunction due to Serratia species ([facility]) [A41.53, R65.20] Urinary tract infection with hematuria, site unspecified [N39.0, R31.9] Pneumonia due to organism [J18.9] Order(s):HGB A1C [NIYYU9T] Order #: [id number] FUTURE carbamide peroxide (DEBROX) 6.5 % otic [...] Rfl: BASIC METABOLIC PNL [SQBMP] Order #: [id number] FUTURE Prescriptions as of 11/06/2017 Sig: CARBAMIDE [...] 1 CAPFUL (17 GMS) IN 8 OZ* IN-ACID GAS RELIEF 80 MG CHEW* CHEW 1 [...] 11/06/17 PROGRESS Observed: 11/06/2017 Status: COMPLETED Source: [place] 9:13 AM [facility] [place] REPOSITORY HNO ID: [id number] Author: Georgi Lee (Cns) Service: (none) Author Type: Nurse Specialist Type: [...] Axillary Vein, Acute (Hcc) Presents today for [facility] discharge /follow up with caregiver from [place] [facility].. Since the last visit, he was admitted to [facility] September 06, 2017 through September 22, 2017. [...] probable pneumonia on meropenem improved. Discharged to [facility] care home for rehabilitation, now back at [place] [facility]. Seen by Dr. Hodge 10/17/3027. Continuous suprapubic [...] fistula creation - [facility] 12/04/14 decompression for pseudoobstruction - COLONOSCOPY [...] NO BM BY 8PM, GIVE 3RD DOSE IN-ACID GAS RELIEF 80 mg chewable tablet CHEW [...] mouth once daily. COMPOUNDED PRESCRIPTION Please provide [employer] glucocard test strips to check blood sugar [...] (H) 4.3 - 5.6 % Final Comment: [place] [employer] guidelines indicate that patients with HgbA1c in the range 5.7-6.4% are at increased risk for development of diabetes, and intervention by lifestyle modification may be beneficial. HgbA1c greater or equal to 6.5% is considered diagnostic of diabetes. 11/18/2016 8.8 (H) 4.3 - 5.6 % Final Comment: [place] [employer] guidelines indicate that patients with HgbA1c in the range 5.7-6.4% are at increased risk for development of diabetes, and intervention by lifestyle modification may be beneficial. HgbA1c greater or equal to 6.5% is considered diagnostic of diabetes. 08/09/2016 9.1 (H) 4.3 - 5.6 % Final Comment: [place] [employer] guidelines indicate that patients with HgbA1c in the range 5.7-6.4% are at increased risk for development of diabetes, and intervention by lifestyle modification may be beneficial. HgbA1c greater or equal to 6.5% is considered diagnostic of diabetes. 03/14/2016 9.5 (H) 4.3 - 5.6 % Final Comment: [place] [employer] guidelines indicate that patients with HgbA1c in the range 5.7-6.4% are at increased risk for development of diabetes, and intervention by lifestyle modification may be beneficial. HgbA1c greater or equal to 6.5% is considered diagnostic of diabetes. 10/27/2015 10.3 (H) 4.3 - 5.6 % Final Comment: [place] [employer] guidelines indicate that patients with HgbA1c in the range 5.7-6.4% are at increased risk for development of diabetes, and intervention by lifestyle modification may be beneficial. HgbA1c greater or equal to 6.5% is considered diagnostic of diabetes. Ejection Fraction - Result: 58 % Date: 03/30/2015 Time: 10:48:46 IMPRESSION: Mr. Morse is a 37 year old And presents for care home discharge follow-up. Currently in [place] [facility]. Initially seen at [facility] September 06 - September 22. Cystoscopy planned with Dr. Hodge. After my examination and review of data, I make the following recommendations. PLAN AND RECOMMENDATIONS: 1. Uncontrolled type 1 diabetes mellitus with stage 3 chronic kidney disease, with long-term current use of insulin ([facility]) - ICD9: 250.43, 585.3, ICD10: E10.22, E10.65, N18.3 (primary diagnosis) - HGB A1C - INSULIN LISPRO (U-100) 100 UNIT/ML SUBCUTANEOUS PEN - BASIC METABOLIC PNL 2. CKD (chronic kidney disease) stage 4, GFR 15-29 ml/min ([facility]) - ICD9: 585.4, ICD10: N18.4 - BASIC METABOLIC PNL 3. Hydronephrosis with ureteral stricture, not elsewhere classified - ICD9: 591, ICD10: N13.1 - BASIC METABOLIC PNL 4. Excessive cerumen in ear canal, bilateral - ICD9: 380.4, ICD10: H61.23 - CARBAMIDE PEROXIDE 6.5 % EAR DROPS 5. Acute respiratory failure with hypoxia (HCC) - ICD9: 518.81, ICD10: J96.01 6. Bilateral hydronephrosis - ICD9: 591, ICD10: N13.30 - BASIC METABOLIC PNL 7. Acute kidney injury (HCC) - ICD9: 584.9, ICD10: N17.9 - BASIC METABOLIC PNL 8. Severe sepsis with acute organ dysfunction due to Serratia species (HCC) - ICD9: 038.44, 995.92, ICD10: A41.53, R65.20 [...] and agreed with the plan. Georgi Lee APRN.INTELLIGENCE APPLICATIONS ABDOMEN/PELVIS WITHOUT Observed: 10/26/2017 Status: F Source: [place] CONT 1:44 PM [facility] REPOSITORY [facility] Imaging Services [address] [place] [address] Abdomen/Pelvis without Cont MR#: [id number] Acct: [id number] Name: JARON MORSE Yaquelin Rep #: [id number] : 1980 M 37 From: Jin Daly MD PCP: Francine Clark MD Status: REG CLI Study: Abdomen/Pelvis without Cont Date of Exam: 10/26/17 Exam# [id number] Ordering Dr: Jose Juan Lopez MD STUDY: [...] Jin Daly MD at 14:47 EDT Tel [phone], Service support , CC: Jose Juan Lopez MD; Francine Clark MD [employer] Consultant: Signed CT OUTSIDE CD DICOM Observed: 10/26/2017 Status: F Source: [facility] 12:00 AM [facility] [place] REPOSITORY Images were obtained outside of [facility] [id number] Collected: 09/22/2017 Status: F Source: [facility] 5:24 AM [facility] REPOSITORY TYPE CODE TESTS RESULT [...] 6.4-10.5 fL MPV 8.9 Performed By: #### CBC, ADIFF, ANEU, BMP, GFR #### [address] [address] .AUTO DIFF Collected: 09/22/2017 Status: F Source: [facility] 5:24 AM [facility] REPOSITORY TYPE CODE TESTS RESULT OUT OF [...] Basophil, 0.10 Absolute Performed By: #### CBC, ADIFF, ANEU, BMP, GFR #### [address] [address] .NEUABS Collected: 09/22/2017 Status: F Source: [facility] 5:24 AM [facility] REPOSITORY TYPE CODE TESTS RESULT OUT OF REFERENCE UNITS RANGE LAB ANEU(LOINC) 2.25-8.10 10 3/mcL Neutrophil, 3.40 Absolute Performed By: #### BECKY, ADIFF, ANEU, BMP, GFR #### [place] [address] BMP Collected: 09/22/2017 Status: F Source: [facility] 5:24 AM [facility] REPOSITORY TYPE CODE TESTS RESULT OUT OF [...] Low Calcium Lvl 8.3 Performed By: #### BECKY, ADIFF, ANEU, BMP, GFR #### [place] [address] .GFR Collected: 09/22/2017 Status: F Source: [facility] 5:24 AM [facility] REPOSITORY TYPE CODE TESTS RESULT OUT OF REFERENCE UNITS RANGE LAB GFRAA(LOINC ml/min/1.73 ) sqm GFR 18 [place] Result Comment: GFR Population mean for , [...] square meters Performed By: #### CBC, ADIFF, ANEU, BMP, GFR #### [address] [address] CBC Collected: 09/21/2017 Status: F Source: [facility] 5:51 AM [facility] REPOSITORY TYPE CODE TESTS RESULT OUT OF [...] 6.4-10.5 fL MPV 9.1 Performed By: #### CBC, ADIFF, ANEU, BMP, GFR #### [place] [address] .AUTO DIFF Collected: 09/21/2017 Status: F Source: [facility] 5:51 AM [facility] REPOSITORY TYPE CODE TESTS RESULT OUT OF [...] Basophil, 0.10 Absolute Performed By: #### CBC, ADIFF, ANEU, BMP, GFR #### [place] [address] .NEUABS Collected: 09/21/2017 Status: F Source: [facility] 5:51 AM [facility] REPOSITORY TYPE CODE TESTS RESULT OUT OF REFERENCE UNITS RANGE LAB ANEU(LOINC) 2.25-8.10 10 3/mcL Neutrophil, 4.10 Absolute Performed By: #### CBC, ADIFF, ANEU, BMP, GFR #### [place] [address] BMP Collected: 09/21/2017 Status: F Source: [facility] 5:51 AM [facility] REPOSITORY TYPE CODE TESTS RESULT OUT OF [...] mg/dL Calcium Lvl 8.7 Performed By: #### CBC, ADIFF, ANEU, BMP, GFR #### [facility] [address] [place] [address] .GFR Collected: 09/21/2017 Status: F Source: [facility] 5:51 AM [facility] REPOSITORY TYPE CODE TESTS RESULT OUT OF REFERENCE UNITS RANGE LAB GFRAA(LOINC ml/min/1.73 ) sqm GFR 17 [place] Result Comment: GFR Population mean for , [...] square meters Performed By: #### CBC, ADIFF, ANEU, BMP, GFR #### [address] [address] CBC Collected: 09/20/2017 Status: F Source: [facility] 6:08 AM [facility] REPOSITORY TYPE CODE TESTS RESULT OUT OF [...] MPV 9.6 Performed By: #### CBC, ADIFF, ANEU, BMP, GFR #### [address] [address] .AUTO DIFF Collected: 09/20/2017 Status: F Source: [facility] 6:08 AM [facility] REPOSITORY TYPE CODE TESTS RESULT OUT OF [...] Basophil, 0.10 Absolute Performed By: #### CBC, ADIFF, ANEU, BMP, GFR #### [place] [address] .NEUABS Collected: 09/20/2017 Status: F Source: [facility] 6:08 AM [facility] REPOSITORY TYPE CODE TESTS RESULT OUT OF REFERENCE UNITS RANGE LAB ANEU(LOINC) 2.25-8.10 10 3/mcL Neutrophil, 6.20 Absolute Performed By: #### CBC, ADIFF, ANEU, BMP, GFR #### [place] [address] BMP Collected: 09/20/2017 Status: F Source: [facility] 6:08 AM [facility] REPOSITORY TYPE CODE TESTS RESULT OUT OF [...] mg/dL Calcium Lvl 8.9 Performed By: #### CBC, ADIFF, ANEU, BMP, GFR #### [place] [address] .GFR Collected: 09/20/2017 Status: F Source: [facility] 6:08 AM [facility] REPOSITORY TYPE CODE TESTS RESULT OUT OF REFERENCE UNITS RANGE LAB GFRAA(LOINC ml/min/1.73 ) sqm GFR 17 [place] Result Comment: GFR Population mean for , [...] square meters Performed By: #### CBC, ADIFF, ANEU, BMP, GFR #### [place] [address] CBC Collected: 09/19/2017 Status: F Source: [facility] 5:37 AM [facility] REPOSITORY TYPE CODE TESTS RESULT [...] 6.4-10.5 fL MPV 10.0 Performed By: #### CBC, ADIFF, ANEU, GFR, BMP #### [place] [address] .AUTO DIFF Collected: 09/19/2017 Status: F Source: [facility] 5:37 AM [facility] REPOSITORY TYPE CODE TESTS RESULT OUT OF [...] Basophil, 0.10 Absolute Performed By: #### CBC, ADIFF, ANEU, GFR, BMP #### [place] [address] .NEUABS Collected: 09/19/2017 Status: F Source: [facility] 5:37 AM [facility] REPOSITORY TYPE CODE TESTS RESULT OUT OF REFERENCE UNITS RANGE LAB ANEU(LOINC) 2.25-8.10 10 3/mcL Neutrophil, 7.20 Absolute Performed By: #### CBC, ADIFF, ANEU, GFR, BMP #### [address] [address] .GFR Collected: 09/19/2017 Status: F Source: [facility] 5:37 AM [facility] REPOSITORY TYPE CODE TESTS RESULT OUT OF REFERENCE UNITS RANGE LAB GFRAA(LOINC ml/min/1.73 ) sqm GFR 18 [place] Result Comment: GFR Population mean for , [...] square meters Performed By: #### CBC, ADIFF, ANEU, GFR, BMP #### [place] [address] BMP Collected: 09/19/2017 Status: F Source: [facility] 5:37 AM [facility] REPOSITORY TYPE CODE TESTS RESULT OUT OF [...] Calcium Lvl 9.4 Performed By: #### CBC, ADIFF, ANEU, GFR, BMP #### [address] [address] CBC Collected: 09/17/2017 Status: F Source: [facility] 6:07 AM [facility] REPOSITORY TYPE CODE TESTS RESULT OUT OF [...] MPV 9.2 Performed By: #### CBC, ADIFF, ANEU, BMP, GFR, RFP #### [address] [address] .AUTO DIFF Collected: 09/17/2017 Status: F Source: [facility] 6:07 AM [facility] REPOSITORY TYPE CODE TESTS RESULT OUT OF [...] Basophil, 0.10 Absolute Performed By: #### CBC, ADIFF, ANEU, BMP, GFR, RFP #### [place] [address] .NEUABS Collected: 09/17/2017 Status: F Source: [facility] 6:07 AM [facility] REPOSITORY TYPE CODE TESTS RESULT OUT OF REFERENCE UNITS RANGE LAB ANEU(LOINC) 2.25-8.10 10 3/mcL High Neutrophil, 8.60 Absolute Performed By: #### CBC, ADIFF, ANEU, BMP, GFR, RFP #### [place] [address] BMP Collected: 09/17/2017 Status: F Source: [facility] 6:07 AM [facility] REPOSITORY TYPE CODE TESTS RESULT OUT OF [...] mg/dL Calcium Lvl 8.6 Performed By: #### CBC, ADIFF, ANEU, BMP, GFR, RFP #### [address] [address] .GFR Collected: 09/17/2017 Status: F Source: [facility] 6:07 AM [facility] REPOSITORY TYPE CODE TESTS RESULT OUT OF REFERENCE UNITS RANGE LAB GFRAA(LOINC ml/min/1.73 ) sqm GFR 19 [place] Result Comment: GFR Population mean for , [...] square meters Performed By: #### CBC, ADIFF, ANEU, BMP, GFR, RFP #### [address] [address] RFP Collected: 09/17/2017 Status: F Source: [facility] 6:07 AM [facility] REPOSITORY TYPE CODE TESTS RESULT OUT OF [...] Low Albumin Level 2.0 Performed By: #### CBC, ADIFF, ANEU, BMP, GFR, RFP #### [place] [address] CBC Collected: 09/16/2017 Status: F Source: [facility] 7:06 AM [facility] REPOSITORY TYPE CODE TESTS [...] fL MPV 9.4 Performed By: #### CBC, ADIFF, ANEU, BMP, LIP, GFR, RFP, HFP #### [place] [address] .AUTO DIFF Collected: 09/16/2017 Status: F Source: [facility] 7:06 AM [facility] REPOSITORY TYPE CODE TESTS RESULT OUT OF [...] 0.00 Absolute Performed By: #### CBC, ADIFF, ANEU, BMP, LIP, GFR, RFP, HFP #### [place] [address] .NEUABS Collected: 09/16/2017 Status: F Source: [facility] 7:06 AM [facility] REPOSITORY TYPE CODE TESTS RESULT OUT OF REFERENCE UNITS RANGE LAB ANEU(LOINC) 2.25-8.10 10 3/mcL High Neutrophil, 8.20 Absolute Performed By: #### CBC, ADIFF, ANEU, BMP, LIP, GFR, RFP, HFP #### [place] [address] BMP Collected: 09/16/2017 Status: F Source: [facility] 7:06 AM [facility] REPOSITORY TYPE CODE TESTS RESULT OUT OF [...] mg/dL Calcium Lvl 8.6 Performed By: #### CBC, ADIFF, ANEU, BMP, LIP, GFR, RFP, HFP #### [place] [address] LIP Collected: 09/16/2017 Status: F Source: [facility] 7:06 AM [facility] REPOSITORY TYPE CODE TESTS RESULT OUT OF REFERENCE UNITS RANGE LAB LIP(LOINC) 73-393 U/L Lipase Level 245 Performed By: #### CBC, ADIFF, ANEU, BMP, LIP, GFR, RFP, HFP #### [place] [address] .GFR Collected: 09/16/2017 Status: F Source: [facility] 7:06 AM [facility] REPOSITORY TYPE CODE TESTS RESULT OUT OF REFERENCE UNITS RANGE LAB GFRAA(LOINC ml/min/1.73 ) sqm GFR 18 [place] Result Comment: GFR Population mean for , [...] square meters Performed By: #### CBC, ADIFF, ANEU, BMP, LIP, GFR, RFP, HFP #### [address] [address] RFP Collected: 09/16/2017 Status: F Source: [facility] 7:06 AM [facility] REPOSITORY TYPE CODE TESTS [...] Low Albumin Level 1.9 Performed By: #### CBC, ADIFF, ANEU, BMP, LIP, GFR, RFP, HFP #### [address] [address] HFP Collected: 09/16/2017 Status: F Source: [facility] 7:06 AM [facility] REPOSITORY TYPE CODE TESTS RESULT OUT OF [...] 12-55 U/L ALT/SGPT 15 Performed By: #### CBC, ADIFF, ANEU, BMP, LIP, GFR, RFP, HFP #### [place] [address] XR CHEST 2 VIEWS Observed: 09/15/2017 Status: F Source: [facility] 8:15 AM [facility] REPOSITORY ORIGINAL XR CHEST 2 VIEWS Clinical [...] PM CBC Collected: 09/15/2017 Status: F Source: [facility] 7:06 [facility] [place] REPOSITORY TYPE CODE TESTS RESULT OUT OF [...] 6.4-10.5 fL MPV 9.8 Performed By: #### CBC, ADIFF, ANEU, BMP, GFR #### [place] [address] .AUTO DIFF Collected: 09/15/2017 Status: F Source: [facility] 7:06 [facility] [place] REPOSITORY TYPE CODE TESTS RESULT OUT OF [...] 0.00 Absolute Performed By: #### CBC, ADIFF, ANEU, BMP, GFR #### [address] [address] .NEUABS Collected: 09/15/2017 Status: F Source: [facility] 7:06 AM [facility] REPOSITORY TYPE CODE TESTS RESULT OUT OF REFERENCE UNITS RANGE LAB ANEU(LOINC) 2.25-8.10 10 3/mcL High Neutrophil, 10.50 Absolute Performed By: #### CBC, ADIFF, ANEU, BMP, GFR #### [place] [address] BMP Collected: 09/15/2017 Status: F Source: [facility] 7:06 AM [facility] REPOSITORY TYPE CODE TESTS RESULT OUT OF [...] mg/dL Calcium Lvl 8.9 Performed By: #### CBC, ADIFF, ANEU, BMP, GFR #### [address] [address] .GFR Collected: 09/15/2017 Status: F Source: [facility] 7:06 AM [facility] REPOSITORY TYPE CODE TESTS RESULT OUT OF REFERENCE UNITS RANGE LAB GFRAA(LOINC ml/min/1.73 ) sqm GFR 19 [place] Result Comment: GFR Population mean for , [...] square meters Performed By: #### CBC, ADIFF, ANEU, BMP, GFR #### [place] [address] XR CHEST 1 VIEW Observed: 09/14/2017 Status: F Source: [facility] 5:08 AM [facility] REPOSITORY ORIGINAL Clinical history: Dyspnea. COMPARISON: Chest [...] AM BMP Collected: 09/14/2017 Status: F Source: [facility] 4:07 AM [facility] REPOSITORY TYPE CODE TESTS RESULT OUT OF [...] Low Calcium Lvl 8.3 Performed By: #### BMP, GFR, VANCR, CBC, DIFF, MORPH #### [place] [address] .GFR Collected: 09/14/2017 Status: F Source: [facility] 4:07 AM [facility] REPOSITORY TYPE CODE TESTS RESULT OUT OF REFERENCE UNITS RANGE LAB GFRAA(LOINC ml/min/1.73 ) sqm GFR 16 [place] Result Comment: GFR Population mean for , [...] square meters Performed By: #### BMP, GFR, VANCR, CBC, DIFF, MORPH #### [address] [address] VANCR Collected: 09/14/2017 Status: F Source: [facility] 4:07 AM [facility] REPOSITORY TYPE CODE TESTS RESULT OUT OF REFERENCE UNITS RANGE LAB LD021(LOIN C) LDose Vancomycin: See eMAR (random) LAB 4091-5 mcg/mL VANCOMYCIN 28.2 Result Comment: No normal reference range reported for random vancomycin testing. Performed By: #### BMP, GFR, VANCR, CBC, DIFF, MORPH #### [address] [address] CBC Collected: 09/14/2017 Status: F Source: [facility] 4:07 AM [facility] REPOSITORY TYPE CODE TESTS RESULT OUT OF [...] 6.4-10.5 fL MPV 10.3 Performed By: #### BMP, GFR, VANCR, CBC, DIFF, MORPH #### [address] [address] .MANUAL DIFF Collected: 09/14/2017 Status: F Source: [facility] 4:07 AM [facility] REPOSITORY TYPE CODE TESTS RESULT OUT OF [...] Abs Manual 0.00 Performed By: #### BMP, GFR, VANCR, CBC, DIFF, MORPH #### [address] [address] .MORPH Collected: 09/14/2017 Status: F Source: [facility] 4:07 AM [facility] REPOSITORY TYPE CODE TESTS RESULT OUT OF REFERENCE UNITS RANGE LAB PLTE(LOINC ) Platelet Estimate Normal LAB ANIS(LOINC ) Anisocytosis Slight LAB POLC(LOINC ) Polychrom Slight Performed By: #### BMP, GFR, VANCR, CBC, DIFF, MORPH #### [address] [address] Observed: 09/13/2017 Status: F Source: [facility] 3:27 PM [facility] REPOSITORY . MICRO - Microbiology PROCEDURE: Catheter Tip Culture [[id number]: [id number] *1] SOURCE: Catheter Tip, Dialysis BODY SITE: [...] Locations *1: This test was performed at: [address], [facility] , [facility] Performed By: #### [facility] #### [address] [address] CBC Collected: 09/13/2017 Status: F Source: [facility] 6:32 AM [facility] REPOSITORY TYPE CODE TESTS RESULT OUT OF [...] 6.4-10.5 fL MPV 9.3 Performed By: #### CBC, ADIFF, ANEU, MG, BMP, GFR, RFP #### [place] [address] .AUTO DIFF Collected: 09/13/2017 Status: F Source: [facility] 6:32 AM [facility] REPOSITORY TYPE CODE TESTS RESULT OUT OF [...] 0.00 Absolute Performed By: #### CBC, ADIFF, ANEU, MG, BMP, GFR, RFP #### [place] [address] .NEUABS Collected: 09/13/2017 Status: F Source: [facility] 6:32 AM [facility] REPOSITORY TYPE CODE TESTS RESULT OUT OF REFERENCE UNITS RANGE LAB ANEU(LOINC) 2.25-8.10 10 3/mcL High Neutrophil, 15.20 Absolute Performed By: #### CBC, ADIFF, ANEU, MG, BMP, GFR, RFP #### [place] [address] MG Collected: 09/13/2017 Status: F Source: [facility] 6:32 AM [facility] REPOSITORY TYPE CODE TESTS RESULT OUT OF REFERENCE UNITS RANGE LAB MG(LOINC) 1.6-2.4 mg/dL Magnesium Lvl 2.4 Result Comment: Specimen slightly hemolyzed. Performed By: #### CBC, ADIFF, ANEU, MG, BMP, GFR, RFP #### [place] [address] BMP Collected: 09/13/2017 Status: F Source: [facility] 6:32 AM [facility] REPOSITORY TYPE CODE TESTS RESULT OUT OF [...] Calcium Lvl Low 8.2 Performed By: #### CBC, ADIFF, ANEU, MG, BMP, GFR, RFP #### [place] [address] .GFR Collected: 09/13/2017 Status: F Source: [facility] 6:32 AM [facility] REPOSITORY TYPE CODE TESTS RESULT OUT OF REFERENCE UNITS RANGE LAB GFRAA(LOINC ml/min/1.73 ) sqm GFR 15 [place] Result Comment: GFR Population mean for , [...] square meters Performed By: #### CBC, ADIFF, ANEU, MG, BMP, GFR, RFP #### [address] [address] RFP Collected: 09/13/2017 Status: F Source: [facility] 6:32 AM [facility] REPOSITORY TYPE CODE TESTS [...] Albumin Low Level 1.8 Performed By: #### CBC, ADIFF, ANEU, MG, BMP, GFR, RFP #### [address] [address] Observed: 09/13/2017 Status: F Source: [facility] 6:32 AM [facility] REPOSITORY . MICRO - Microbiology PROCEDURE: Blood [...] Locations *1: This test was performed at: [address] Performed By: #### CBL #### [place] [address] Observed: 09/13/2017 Status: F Source: [facility] 6:32 AM [facility] REPOSITORY . MICRO - Microbiology PROCEDURE: Blood [...] Locations *1: This test was performed at: [address] Performed By: #### CBL #### [place] [address] XR CHEST 1 VIEW Observed: 09/13/2017 Status: F Source: [facility] 5:04 AM [facility] REPOSITORY ORIGINAL Portable Chest x-ray Clinical Statement: [...] 8:18:15 AM Observed: 09/12/2017 Status: F Source: [facility] 7:44 AM [facility] REPOSITORY . MICRO - Microbiology PROCEDURE: Culture [...] Locations *1: This test was performed at: [facility], [address] [place] [address], [id number] , [facility] Performed By: #### CRESP #### [address] [address] BG Collected: 09/12/2017 Status: F Source: [facility] 6:41 AM [facility] REPOSITORY TYPE CODE TESTS RESULT OUT OF [...] 738 Pressure Performed By: #### BG #### [address] [address] XR CHEST 1 VIEW Observed: 09/12/2017 Status: F Source: [facility] 5:11 AM [facility] ORIGINAL Clinical history: Respiratory failure. On ventilator. [...] AM CAION Collected: 09/12/2017 Status: F Source: [facility] 4:00 AM [facility] TYPE CODE TESTS RESULT OUT OF REFERENCE UNITS RANGE LAB CAION(LOINC 1.12-1.32 mmol/L ) Low Calcium 1.09 Ionized Performed By: #### CAION, CBC, MG, BMP, GFR, RFP, ADIFF, ANEU, MORPH, MYCO #### [place] [id number] CBC Collected: 09/12/2017 Status: F Source: [facility] 4:00 AM [facility] REPOSITORY TYPE CODE TESTS RESULT OUT OF [...] 6.4-10.5 fL MPV 9.3 Performed By: #### TYLER, CBC, MG, BMP, GFR, RFP, ADIFF, ANEU, MORPH, MYCO #### [place] [address] MG Collected: 09/12/2017 Status: F Source: [facility] 4:00 [facility] REPOSITORY TYPE CODE TESTS RESULT OUT OF REFERENCE UNITS RANGE LAB MG(LOINC) 1.6-2.4 mg/dL Magnesium Lvl 2.3 Performed By: #### TYLER, CBC, MG, BMP, GFR, RFP, ADIFF, ANEU, MORPH, MYCO #### [place] [id number] BMP Collected: 09/12/2017 Status: F Source: [facility] 4:00 AM [facility] REPOSITORY TYPE CODE TESTS RESULT OUT OF [...] mg/dL Calcium Lvl 8.4 Performed By: #### CAION, CBC, MG, BMP, GFR, RFP, ADIFF, ANEU, MORPH, MYCO #### [place] [address] .GFR Collected: 09/12/2017 Status: F Source: [facility] 4:00 AM [facility] REPOSITORY TYPE CODE TESTS RESULT OUT OF REFERENCE UNITS RANGE LAB GFRAA(LOINC ml/min/1.73 ) sqm GFR 14 [place] Result Comment: GFR Population mean for , [...] 15 mL/min/1.73 square meters Performed By: #### TYLER, CBC, MG, BMP, GFR, RFP, ADIFF, ANEU, MORPH, MYCO #### [address] [address] RFP Collected: 09/12/2017 Status: F Source: [facility] 4:00 AM [facility] REPOSITORY TYPE CODE TESTS RESULT OUT OF [...] Low Albumin Level 1.9 Performed By: #### TYLER, CBC, MG, BMP, GFR, RFP, ADIFF, ANEU, MORPH, MYCO #### [address] [address] .AUTO DIFF Collected: 09/12/2017 Status: F Source: [facility] 4:00 AM [facility] REPOSITORY TYPE CODE TESTS RESULT OUT OF [...] ) Basophil, 0.10 Absolute Performed By: #### CAION, CBC, MG, BMP, GFR, RFP, ADIFF, ANEU, MORPH, MYCO #### [place] [address] .NEUABS Collected: 09/12/2017 Status: F Source: [facility] 4:00 AM [facility] REPOSITORY TYPE CODE TESTS RESULT OUT OF REFERENCE UNITS RANGE LAB ANEU(LOINC) 2.25-8.10 10 3/mcL High Neutrophil, 17.30 Absolute Performed By: #### CAION, CBC, MG, BMP, GFR, RFP, ADIFF, ANEU, MORPH, MYCO #### [place] [address] .MORPH Collected: 09/12/2017 Status: F Source: [facility] 4:00 AM [facility] REPOSITORY TYPE CODE TESTS RESULT OUT OF REFERENCE UNITS RANGE LAB PLTE(LOINC ) Platelet Estimate Normal LAB ANIS(LOINC ) Anisocytosis Slight LAB POLC(LOINC ) Polychrom Slight Performed By: #### CAION, CBC, MG, BMP, GFR, RFP, ADIFF, ANEU, MORPH, MYCO #### [place] [address] MYCO Collected: 09/12/2017 Status: F Source: [facility] 4:00 AM [facility] REPOSITORY TYPE CODE TESTS RESULT OUT OF REFERENCE UNITS RANGE LAB [id number](LOINC) Mycoplasma IgM Negative Result Comment: INTERPRETATION OF MYCOPLASMA BY EIA (Effective 06/24/04): Negative No detectable antibodies to M. pneumoniae. Indicates absence of current or previous infection. Positive Reactive for antibodies to M. pneumoniae. Indicates a past or recent infection. Equivocal Equivocal for antibodies to M. pneumoniae. Repeat testing by an alternate method suggested. LAB CD:[id number](LOINC) Mycoplasma IgG Neg Result Comment: INTERPRETATION OF MYCOPLASMA BY EIA (Effective 06/24/04): Negative No detectable antibodies to M. pneumoniae. Indicates absence of current or previous infection. Positive Reactive for antibodies to M. pneumoniae. Indicates a past or recent infection. Equivocal Equivocal for antibodies to M. pneumoniae. Repeat testing by an alternate method suggested. Performed By: #### CAION, CBC, MG, BMP, GFR, RFP, ADIFF, ANEU, MORPH, MYCO #### [place] [address] BG Collected: 09/11/2017 Status: F Source: [facility] 9:46 PM [facility] REPOSITORY TYPE CODE TESTS RESULT OUT OF [...] 740 Pressure Performed By: #### BG #### [place] [address] XR CHEST 1 VIEW Observed: 09/11/2017 Status: F Source: [facility] 8:01 PM [facility] REPOSITORY ORIGINAL XR CHEST 1 VIEW portable [...] 1 VIEW Observed: 09/11/2017 Status: F Source: [facility] 8:01 PM [facility] REPOSITORY ORIGINAL XR CHEST 1 VIEW portable [...] PM LAC Collected: 09/11/2017 Status: F Source: [facility] 7:20 PM [facility] REPOSITORY TYPE CODE TESTS RESULT OUT OF REFERENCE UNITS RANGE LAB LAC(LOINC) 0.2-2.0 mmol/L Lactic Acid 1.2 Lvl Performed By: #### LAC #### [place] [address] BG Collected: 09/11/2017 Status: F Source: [facility] 6:49 PM [facility] REPOSITORY TYPE CODE TESTS RESULT OUT OF [...] 741 Pressure Performed By: #### BG #### [place] [id number] UA Collected: 09/11/2017 Status: F Source: [facility] 4:37 PM [facility] REPOSITORY TYPE CODE TESTS RESULT OUT OF [...] Large Performed By: #### UA, UAMIC #### [place] [address] UAMIC Collected: 09/11/2017 Status: F Source: [facility] 4:37 PM [facility] REPOSITORY TYPE CODE TESTS RESULT OUT OF [...] Ghost Abnormal cells 3-5 Performed By: #### UA, UAMIC #### [place] [address] Observed: 09/11/2017 Status: F Source: [facility] 4:37 PM [facility] REPOSITORY . MICRO - Microbiology PROCEDURE: Urine Culture [*1] SOURCE: Urine, Franco Catheter BODY SITE: COLLECTED DATE/TIME: 09/11/2017 16:37 EDT RECEIVED DATE/TIME: 09/11/2017 18:00 EDT START DATE/TIME: 09/11/2017 18:00 EDT FREE TEXT SOURCE: FINAL REPORTS Final Report [] Verified Date/Time/Personnel: 09/13/2017 12:28 EDT >100,000 organisms per mL Yeast, not Gladis albicans Contact Microbiology within 72 hours if further identification is indicated ([id number]). [place] counts from a single urine are equivocal in determining infection vs. colonization of yeast. Multiple cultures at least 24 hours apart may be helpful in differentiating colonization from infection. PRELIMINARY REPORTS Preliminary Report [] Verified Date/Time/Personnel: 09/12/2017 07:31 EDT No growth to date Performing Locations *1: This test was performed at: [facility], [address] [place] [address], [facility] , [facility] Performed By: #### CUR #### [place] [address] XR CHEST 1 VIEW Observed: 09/11/2017 Status: F Source: [facility] 4:10 PM [facility] REPOSITORY ORIGINAL XR CHEST 1 VIEW CLINICAL [...] PM BG Collected: 09/11/2017 Status: F Source: [facility] 3:25 PM [facility] REPOSITORY TYPE CODE TESTS RESULT OUT OF [...] 741 Pressure Performed By: #### BG #### [place] [id number] BG Collected: 09/11/2017 Status: F Source: [facility] 5:30 AM [facility] REPOSITORY TYPE CODE TESTS RESULT OUT OF [...] 741 Pressure Performed By: #### BG #### [place] [address] BMP Collected: 09/11/2017 Status: F Source: [facility] 5:21 AM [facility] REPOSITORY TYPE CODE TESTS RESULT OUT OF [...] mg/dL Calcium Lvl 9.4 Performed By: #### BMP, GFR, CBC, ADIFF, ANEU #### [place] [address] .GFR Collected: 09/11/2017 Status: F Source: [facility] 5:21 AM [facility] REPOSIT[facility] TYPE CODE TESTS RESULT OUT OF REFERENCE UNITS RANGE LAB GFRAA(LOINC ml/min/1.73 ) sqm GFR 16 [place] Result Comment: GFR Population mean for , [...] square meters Performed By: #### BMP, GFR, CBC, ADIFF, ANEU #### [place] [id number] CBC Collected: 09/11/2017 Status: F Source: [facility] 5:21 AM [facility] REPOSITORY TYPE CODE TESTS RESULT OUT OF [...] MPV 9.7 Performed By: #### BMP, GFR, CBC, ADIFF, ANEU #### [place] [address] .AUTO DIFF Collected: 09/11/2017 Status: F Source: [facility] 5:21 AM [facility] REPOSITORY TYPE CODE TESTS RESULT OUT OF [...] Basophil, 0.10 Absolute Performed By: #### BMP, GFR, CBC, ADIFF, ANEU #### [place] [address] .NEUABS Collected: 09/11/2017 Status: F Source: [facility] 5:21 AM [facility] REPOSITORY TYPE CODE TESTS RESULT OUT OF REFERENCE UNITS RANGE LAB ANEU(LOINC) 2.25-8.10 10 3/mcL High Neutrophil, 16.90 Absolute Performed By: #### BMP, GFR, CBC, ADIFF, ANEU #### [place] [address] Observed: 09/11/2017 Status: F Source: [facility] 5:21 AM [facility] REPOSITORY . MICRO - Microbiology PROCEDURE: Blood [...] Locations *1: This test was performed at: [address], [address] [place] [address] Performed By: #### CBL #### [place] [address] Observed: 09/11/2017 Status: F Source: [facility] 5:21 AM [facility] REPOSITORY . MICRO - Microbiology PROCEDURE: Blood [...] potential contaminate. Clinical significance undetermined. [facility]. PRELIMINARY REPORTS Preliminary Report [] Verified Date/Time/Personnel: 09/16/2017 09:49 EDT Staphylococcus coagulase negative Isolated from aerobe and anaerobe bottles. 1 set of 2 positive. Organism is a potential contaminate. Clinical significance undetermined. [facility]. Preliminary Report [...] Locations *1: This test was performed at: [address], [address] [place] [address] Performed By: #### CBL #### [place] [address] CT ABDOMEN/PELVIS W/ORAL Observed: 09/10/2017 Status: F Source: [facility] 9:00 PM [facility] REPOSITORY ORIGINAL Clinical history: Abdomen distention and [...] AM CBC Collected: 09/10/2017 Status: F Source: [facility] 8:46 AM [facility] REPOSITORY Order Comment: Please recollect; both specimens [...] 6.4-10.5 fL MPV 9.4 Performed By: #### GFR, BMP, CBC, DIFF, MORPH #### [address] [address] .MANUAL DIFF Collected: 09/10/2017 Status: F Source: [facility] 8:46 AM [facility] REPOSITORY TYPE CODE TESTS RESULT OUT OF [...] Abs Manual 0.00 Performed By: #### GFR, BMP, CBC, DIFF, MORPH #### [address] [address] .MORPH Collected: 09/10/2017 Status: F Source: [facility] 8:46 AM [facility] REPOSITORY TYPE CODE TESTS RESULT OUT OF REFERENCE UNITS RANGE LAB PLTE(LOINC ) Platelet Estimate Normal LAB ANIS(LOINC ) Anisocytosis Slight LAB POIK(LOINC ) Poik Slight LAB POLC(LOINC ) Polychrom Slight Performed By: #### GFR, BMP, CBC, DIFF, MORPH #### [address] [address] .GFR Collected: 09/10/2017 Status: F Source: [facility] 7:46 AM [facility] REPOSITORY TYPE CODE TESTS RESULT OUT OF REFERENCE UNITS RANGE LAB GFRAA(LOINC ml/min/1.73 ) sqm GFR 17 [place] Result Comment: GFR Population mean for , [...] square meters Performed By: #### GFR, BMP, CBC, DIFF, MORPH #### [address] [address] BMP Collected: 09/10/2017 Status: F Source: [facility] 7:46 AM [facility] REPOSITORY TYPE CODE TESTS RESULT OUT OF [...] Lvl 8.8 Performed By: #### GFR, BMP, CBC, DIFF, MORPH #### [place] [address] Observed: 09/09/2017 Status: F Source: [facility] 11:37 AM [facility] REPOSITORY . MICRO - Microbiology PROCEDURE: Legionella [...] Locations *1: This test was performed at: [facility], [address] [place] [address], [address] [place] [address] Performed By: #### CATRACHITA #### [place] [address] Observed: 09/09/2017 Status: F Source: [facility] SPAG 11:37 AM [facility] REPOSITORY . MICRO - Microbiology PROCEDURE: Streptococcus [...] Locations *1: This test was performed at: [facility], [address] [place] [address] Performed By: #### SPAG #### [place] [address] MYCO Collected: 09/09/2017 Status: F Source: [facility] 10:58 AM [facility] REPOSITORY TYPE CODE TESTS RESULT OUT OF REFERENCE UNITS RANGE LAB [id number](LOINC) Mycoplasma IgM Negative Result Comment: INTERPRETATION OF MYCOPLASMA BY EIA (Effective 06/24/04): Negative No detectable antibodies to M. pneumoniae. Indicates absence of current or previous infection. Positive Reactive for antibodies to M. pneumoniae. Indicates a past or recent infection. Equivocal Equivocal for antibodies to M. pneumoniae. Repeat testing by an alternate method suggested. LAB CD:[id number](LOINC) Mycoplasma IgG Neg Result Comment: INTERPRETATION OF MYCOPLASMA BY EIA (Effective 06/24/04): Negative No detectable antibodies to M. pneumoniae. Indicates absence of current or previous infection. Positive Reactive for antibodies to M. pneumoniae. Indicates a past or recent infection. Equivocal Equivocal for antibodies to M. pneumoniae. Repeat testing by an alternate method suggested. Performed By: #### MYCO #### [place] [address] XR CHEST 1 VIEW Observed: 09/09/2017 Status: F Source: [facility] 5:14 AM [facility] REPOSITORY ORIGINAL XR CHEST 1 VIEW PORTABLE [...] AM CBC Collected: 09/09/2017 Status: F Source: [facility] 4:23 AM [facility] REPOSITORY TYPE CODE TESTS RESULT OUT OF [...] fL MPV 9.6 Performed By: #### CBC, BMP, GFR, DIFF, MORPH #### [address] [address] BMP Collected: 09/09/2017 Status: F Source: [facility] 4:23 AM [facility] REPOSITORY TYPE CODE TESTS RESULT OUT OF [...] Low Calcium Lvl 7.7 Performed By: #### CBC, BMP, GFR, DIFF, MORPH #### [place] [address] .GFR Collected: 09/09/2017 Status: F Source: [facility] 4:23 AM [facility] REPOS[facility] TYPE CODE TESTS RESULT OUT OF REFERENCE UNITS RANGE LAB GFRAA(LOINC ml/min/1.73 ) sqm GFR 17 [place] Result Comment: GFR Population mean for , [...] meters Performed By: #### CBC, BMP, GFR, DIFF, MORPH #### [address] [address] .MANUAL DIFF Collected: 09/09/2017 Status: F Source: [facility] 4:23 AM [facility] REPOSITORY TYPE CODE TESTS RESULT OUT OF [...] Abs Manual 0.00 Performed By: #### CBC, BMP, GFR, DIFF, MORPH #### [address] [address] .MORPH Collected: 09/09/2017 Status: F Source: [facility] 4:23 AM [facility] REPOSITORY TYPE CODE TESTS RESULT OUT OF REFERENCE UNITS RANGE LAB PLTE(LOINC ) Platelet Estimate Normal LAB ANIS(LOINC ) Anisocytosis Slight LAB POLC(LOINC ) Polychrom Slight LAB TGR(LOINC) Toxic Gran Slight LAB DOHL(LOINC ) Dohle Bodies Few Performed By: #### CBC, BMP, GFR, DIFF, MORPH #### [place] [address] HGB Collected: 09/08/2017 Status: F Source: [facility] 2:40 PM [facility] REPOSITORY Order Comment: Follow after 1 unit RBC TYPE CODE TESTS RESULT OUT OF RANGE REFERENCE UNITS LAB HGB(LOINC) 13.0-17.5 G/dL Low Hgb 8.2 Performed By: #### HGB #### [place] [address] TABO Collected: 09/08/2017 Status: F Source: [facility] 7:44 AM [facility] REPOSITORY TYPE CODE TESTS RESULT OUT OF RANGE REFERENCE UNITS LAB ABORH(LOINC ) Unknown ABO/Rh O POS Interp Performed By: #### ABORH, ANTIS #### [place] [address] TABS Collected: 09/08/2017 Status: F Source: [facility] 7:44 AM [facility] REPOSITORY TYPE CODE TESTS RESULT OUT OF REFERENCE UNITS RANGE LAB ANST(LOINC ) Antibody Negative ABSC Screen Tango Performed By: #### ABORH, ANTIS #### [place] [address] RBC (PRODUCT) Collected: 09/08/2017 Status: F Source: [facility] 5:57 AM [facility] REPOSITORY TYPE CODE TESTS RESULT OUT OF REFERENCE UNITS RANGE LAB RBCPR(LOINC ) RBC Product RBC Ready Ready for Pickup Performed By: #### RBCP #### [place] [address] XR CHEST 1 VIEW Observed: 09/08/2017 Status: F Source: [facility] 5:13 AM [facility] REPOSITORY ORIGINAL XR CHEST 1 VIEW PORTABLE [...] AM MG Collected: 09/08/2017 Status: F Source: [facility] 4:41 AM [facility] REPOSITORY TYPE CODE TESTS RESULT OUT OF REFERENCE UNITS RANGE LAB MG(LOINC) 1.6-2.4 mg/dL Magnesium Lvl 2.3 Performed By: #### MG, CBC, GFR, BMP, ADIFF, MORPH, ANEU #### [address] [address] CBC Collected: 09/08/2017 Status: F Source: [facility] 4:41 AM [facility] REPOSITORY TYPE CODE TESTS RESULT OUT OF [...] 6.4-10.5 fL MPV 9.7 Performed By: #### MG, CBC, GFR, BMP, ADIFF, MORPH, ANEU #### [address] [address] .GFR Collected: 09/08/2017 Status: F Source: [facility] 4:41 AM [facility] REPOSITORY TYPE CODE TESTS RESULT OUT OF REFERENCE UNITS RANGE LAB GFRAA(LOINC ml/min/1.73 ) sqm GFR 17 [place] Result Comment: GFR Population mean for , [...] square meters Performed By: #### MG, CBC, GFR, BMP, ADIFF, MORPH, ANEU #### [place] [address] BMP Collected: 09/08/2017 Status: F Source: [facility] 4:41 AM [facility] REPOSITORY TYPE CODE TESTS RESULT OUT OF [...] Low Calcium Lvl 8.1 Performed By: #### MG, CBC, GFR, BMP, ADIFF, MORPH, ANEU #### [address] [address] .AUTO DIFF Collected: 09/08/2017 Status: F Source: [facility] 4:41 AM [facility] REPOSITORY TYPE CODE TESTS RESULT OUT OF [...] 0.00 Absolute Performed By: #### MG, CBC, GFR, BMP, ADIFF, MORPH, ANEU #### [address] [address] .MORPH Collected: 09/08/2017 Status: F Source: [facility] 4:41 [facility] REPOSITORY TYPE CODE TESTS RESULT OUT OF REFERENCE UNITS RANGE LAB PLTE(LOINC ) Platelet Estimate Normal LAB ANIS(LOINC ) Anisocytosis Slight LAB POIK(LOINC ) Poik Slight LAB POLC(LOINC ) Polychrom Slight LAB TEAR(LOINC ) Tear Cell Rare LAB DOHL(LOINC ) Dohle Bodies Few Performed By: #### MG, CBC, GFR, BMP, ADIFF, MORPH, ANEU #### [place] [address] .NEUABS Collected: 09/08/2017 Status: F Source: [facility] 4:41 AM [facility] REPOSITORY TYPE CODE TESTS RESULT OUT OF REFERENCE UNITS RANGE LAB ANEU(LOINC) 2.25-8.10 10 3/mcL High Neutrophil, 8.60 Absolute Performed By: #### MG, CBC, GFR, BMP, ADIFF, MORPH, ANEU #### [place] [address] Observed: 09/08/2017 Status: F Source: [facility] 4:41 AM [facility] REPOSITORY . MICRO - Microbiology PROCEDURE: Blood Culture (bacterial) [*1] SOURCE: Blood BODY SITE: Anticubital, Right COLLECTED DATE/TIME: 09/08/2017 04:41 EDT RECEIVED DATE/TIME: 09/08/2017 11:42 EDT START DATE/TIME: 09/08/2017 11:42 EDT FREE TEXT SOURCE: FINAL REPORTS Final Report [] Verified Date/Time/Personnel: 09/11/2017 07:55 EDT Serratia marcescens Isolated from aerobe bottle only. Refer to previous culture for susceptibility. [id number], collected 09-06-17 PRELIMINARY REPORTS Preliminary Report [] Verified Date/Time/Personnel: 09/08/2017 12:59 EDT Culture has been received in lab and is no growth to date. Routine cultures are held for 5 days. STAINS GSAER [] Verified Date/Time/Personnel: 09/10/2017 03:40 EDT Gram Negative Rods Performing Locations *1: This test was performed at: [address], [facility] , [facility] Performed By: #### CBL #### [address] [address] Observed: 09/08/2017 Status: F Source: [facility] 4:41 AM [facility] REPOSITORY . MICRO - Microbiology PROCEDURE: Blood Culture (bacterial) [*1] SOURCE: Blood BODY SITE: Anticubital, Left COLLECTED DATE/TIME: 09/08/2017 04:41 EDT RECEIVED DATE/TIME: 09/08/2017 11:42 EDT START DATE/TIME: 09/08/2017 11:42 EDT FREE TEXT SOURCE: FINAL REPORTS Final Report [] Verified Date/Time/Personnel: 09/12/2017 07:51 EDT Serratia marcescens Isolated from anaerobe bottle only. Refer to previous culture for susceptibility. [id number]. PRELIMINARY REPORTS Preliminary Report [] Verified Date/Time/Personnel: 09/08/2017 12:59 EDT Culture has been received in lab and is no growth to date. Routine cultures are held for 5 days. STAINS GSANA [] Verified Date/Time/Personnel: 09/11/2017 00:38 EDT Gram Negative Rods Performing Locations *1: This test was performed at: [address] Performed By: #### CBL #### [place] [address] PTH Collected: 09/07/2017 Status: F Source: [facility] 4:02 [facility] REPOSITORY TYPE CODE TESTS RESULT OUT OF REFERENCE UNITS RANGE LAB PTH(LOINC) 18.5-88.0 pg/mL High PTH, Intact 134.2 Performed By: #### PTH, MARCIN, C3C4A, GBMBG #### [place] [address] MARCIN Collected: 09/07/2017 Status: F Source: [facility] 4:02 [facility] REPOSITORY TYPE CODE TESTS RESULT OUT OF RANGE REFERENCE UNITS LAB MARCIN(LOINC) Neg 40 MARCIN Neg 40 Performed By: #### PTH, MARCIN, C3C4A, GBMBG #### [place] [address] C3C4A Collected: 09/07/2017 Status: F Source: [facility] 4:02 [facility] REPOSITORY TYPE CODE TESTS RESULT OUT OF REFERENCE UNITS RANGE LAB C3A(LOINC) 79-152 mg/dL Low Complement C3A 34 LAB C4A(LOINC) 16-38 mg/dL Complement C4A 28 Performed By: #### PTH, MARCIN, C3C4A, GBMBG #### [place] [id number] GLOM Collected: 09/07/2017 Status: F Source: [facility] 4:02 PM [facility] REPOSITORY TYPE CODE TESTS RESULT OUT OF [...] healthy individuals. Results were obtained with the [employer] multiplex assay. Values obtained from different manufacturers assays cannot be used interchangeable. The magnitude of the reported IgG levels cannot be correlated to an endpoint titer. Performed By: [facility] [address] [place] [id number] Inventory Technician: Seth Mccormick M.D. [facility]#: [id number] Phone#: Performed By: #### PTH, MARCIN, C3C4A, GBMBG #### [place] [address] US RENAL Observed: 09/07/2017 Status: F Source: [facility] 2:30 PM [facility] REPOSITORY ORIGINAL Ultrasound retroperitoneum Complete: Attention Urinary [...] PM K Collected: 09/07/2017 Status: F Source: [facility] 12:45 PM [facility] REPOSITORY TYPE CODE TESTS RESULT OUT OF REFERENCE UNITS RANGE LAB K(LOINC) 3.5-5.0 mEq/L Potassium Level 5.0 Performed By: #### K #### [place] [address] PRO Collected: 09/07/2017 Status: F Source: [facility] 9:56 AM [facility] REPOSITORY TYPE CODE TESTS RESULT OUT OF REFERENCE UNITS RANGE LAB PT(LOINC) 9.0-14.5 seconds Protime 13.8 Result Comment: Effective 01/01/08, Protime results may be affected by some antibiotics (i.e. Ciprofloxacin, Azithromycin, Bactrim) which may potentiate the action of oral anticoagulants, with further increases in Protime/INR. LAB INR(LOINC) ratio PT International Ratio 1.2 Result Comment: The [place] [employer] (CHEST, 1992, 102:312S-25S) recommended therapeutic range for oral anticoagulant therapy is: LOW RISK: Prophylaxis of venous thrombosis INR: 2.0-3.0 Treatment of pulmonary embolism 2.0-3.0 Prevention of systemic embolism 2.0-3.0 HIGH RISK: Mechanical prosthetic valves 2.5-3.5 Performed By: #### PRO #### [place] [address] IR TEMPORARY DIALYSIS Observed: 09/07/2017 Status: F Source: [facility] CATHETER 9:00 AM [facility] REPOSITORY ORIGINAL PROCEDURE: 1. Temporary hemodialysis catheter [...] PM BMP Collected: 09/07/2017 Status: F Source: [facility] 7:55 AM [facility] REPOSITORY Order Comment: specimen hemolyzed please recollect [...] mg/dL Calcium Lvl 8.9 Performed By: #### CBC, BMP, GFR, DIFF, MORPH #### [place] [address] .GFR Collected: 09/07/2017 Status: F Source: [facility] 7:55 AM [facility] REPOSITORY TYPE CODE TESTS RESULT OUT OF REFERENCE UNITS RANGE LAB GFRAA(LOINC ml/min/1.73 ) sqm GFR 12 [place] Result Comment: GFR Population mean for , [...] meters Performed By: #### CBC, BMP, GFR, DIFF, MORPH #### [address] [address] Observed: 09/07/2017 Status: F Source: [facility] 7:55 AM [facility] REPOSITORY . MICRO - Microbiology PROCEDURE: Blood Culture (bacterial) [*1] SOURCE: Blood BODY SITE: Anticubital, Right COLLECTED DATE/TIME: 09/07/2017 07:55 EDT RECEIVED DATE/TIME: 09/07/2017 08:30 EDT START DATE/TIME: 09/07/2017 08:30 EDT FREE TEXT SOURCE: FINAL REPORTS Final Report [] Verified Date/Time/Personnel: 09/09/2017 08:36 EDT Serratia marcescens Isolated from aerobe bottle only. Refer to previous culture for susceptibility. [id number], collected 09-06-17 PRELIMINARY REPORTS Preliminary Report [] Verified Date/Time/Personnel: 09/07/2017 10:00 EDT Culture has been received in lab and is no growth to date. Routine cultures are held for 5 days. STAINS GSAER [] Verified Date/Time/Personnel: 09/08/2017 04:17 EDT Gram Negative Rods Performing Locations *1: This test was performed at: [address], [facility] , [facility] Performed By: #### CBL #### [address] [address] CBC Collected: 09/07/2017 Status: F Source: [facility] 5:56 AM [facility] REPOSITORY TYPE CODE TESTS RESULT OUT OF [...] 6.4-10.5 fL MPV 10.5 Performed By: #### CBC, BMP, GFR, DIFF, MORPH #### [place] [address] .MANUAL DIFF Collected: 09/07/2017 Status: F Source: [facility] 5:56 AM [facility] REPOSITORY TYPE CODE TESTS RESULT OUT OF [...] Abs Manual 0.00 Performed By: #### CBC, BMP, GFR, DIFF, MORPH #### [address] [address] .MORPH Collected: 09/07/2017 Status: F Source: [facility] 5:56 AM [facility] REPOSITORY TYPE CODE TESTS RESULT OUT OF REFERENCE UNITS RANGE LAB PLTE(LOINC ) Platelet Estimate Slt Decreased LAB DCOMM(LOIN C) Differential See Below Comment Result Comment: Few vacuolated neutrophils seen. LAB ANIS(LOINC) Anisocytosis Slight LAB TGR(LOINC) Toxic Gran Slight LAB DOHL(LOINC) Dohle Bodies Few Performed By: #### CBC, BMP, GFR, DIFF, MORPH #### [place] [address] Observed: 09/07/2017 Status: F Source: [facility] 5:56 AM [facility] REPOSITORY . MICRO - Microbiology PROCEDURE: Blood Culture (bacterial) [*1] SOURCE: Blood BODY SITE: Anticubital, Left COLLECTED DATE/TIME: 09/07/2017 05:56 EDT RECEIVED DATE/TIME: 09/07/2017 08:42 EDT START DATE/TIME: 09/07/2017 08:43 EDT FREE TEXT SOURCE: FINAL REPORTS Final Report [] Verified Date/Time/Personnel: 09/09/2017 08:33 EDT Serratia marcescens Isolated from aerobe and anaerobe bottles. Refer to previous culture for susceptibility. [id number], collected 09-06-17 PRELIMINARY REPORTS Preliminary Report [] Verified Date/Time/Personnel: 09/07/2017 10:00 EDT Culture has been received in lab and is no growth to date. Routine cultures are held for 5 days. STAINS GSANA [] Verified Date/Time/Personnel: 09/08/2017 11:12 EDT Gram Negative Rods GSAER [] Verified Date/Time/Personnel: 09/08/2017 02:11 EDT Gram Negative Rods Performing Locations *1: This test was performed at: [address], [address] Performed By: #### CBL #### [place] [address] XR CHEST 1 VIEW Observed: 09/07/2017 Status: F Source: [facility] 5:13 AM [facility] REPOSITORY ORIGINAL XR CHEST 1 VIEW PORTABLE [...] AM LAC Collected: 09/06/2017 Status: F Source: [facility] 11:51 PM [facility] REPOSITORY TYPE CODE TESTS RESULT OUT OF REFERENCE UNITS RANGE LAB LAC(LOINC) 0.2-2.0 mmol/L High Lactic Acid 2.2 Lvl Performed By: #### LAC #### [place] [address] HGB Collected: 09/06/2017 Status: F Source: [facility] 9:22 PM [facility] REPOSITORY TYPE CODE TESTS RESULT OUT OF RANGE REFERENCE UNITS LAB HGB(LOINC) 13.0-17.5 G/dL Low Hgb 8.1 Performed By: #### HGB #### [place] [address] K Collected: 09/06/2017 Status: F Source: [facility] 9:22 PM [facility] REPOSITORY TYPE CODE TESTS RESULT OUT OF REFERENCE UNITS RANGE LAB K(LOINC) 3.5-5.0 mEq/L High Potassium Level 5.8 Performed By: #### K #### [place] [address] US RENAL Observed: 09/06/2017 Status: F Source: [facility] 8:00 PM [facility] REPOSITORY ORIGINAL US RENAL (US RETROPERITONEUM COMPLETE) [...] PM URIC Collected: 09/06/2017 Status: F Source: [facility] 7:19 [facility] REPOSITORY TYPE CODE TESTS RESULT OUT OF RANGE REFERENCE UNITS LAB URIC(LOINC) 4.4-7.6 mg/dL High Uric Acid 9.7 Lvl Performed By: #### URIC, FES, FERR #### [place] [address] FES Collected: 09/06/2017 Status: F Source: [facility] 7:19 [facility] REPOSITORY TYPE CODE TESTS RESULT OUT OF RANGE REFERENCE UNITS LAB FE(LOINC) 49-181 mcg/dL Low Iron 20 LAB IBC(LOINC) 250-500 mcg/dL Low TIBC 217 LAB FESAT(LOINC % ) Iron Sat 9 Performed By: #### URIC, FES, FERR #### [place] [address] FERR Collected: 09/06/2017 Status: F Source: [facility] 7:19 [facility] REPOSITORY TYPE CODE TESTS RESULT OUT OF REFERENCE UNITS RANGE LAB FERR(LOINC) 26-388 ng/mL Ferritin 195 Performed By: #### URIC, FES, FERR #### [address] [address] MG Collected: 09/06/2017 Status: F Source: [facility] 7:19 PM [facility] REPOSITORY TYPE CODE TESTS RESULT OUT OF REFERENCE UNITS RANGE LAB MG(LOINC) 1.6-2.4 mg/dL Magnesium Lvl 2.2 Performed By: #### MG, PHOS, TROPI #### [place] [address] PHOS Collected: 09/06/2017 Status: F Source: [facility] 7:19 PM [facility] REPOSITORY TYPE CODE TESTS RESULT OUT OF REFERENCE UNITS RANGE LAB PHOS(LOINC 2.5-4.5 mg/dL ) High Phosphorus 4.9 Performed By: #### MG, PHOS, TROPI #### [place] [address] TROPI Collected: 09/06/2017 Status: F Source: [facility] 7:19 PM [facility] REPOSITORY TYPE CODE TESTS RESULT OUT OF [...] ECG changes may help assess possibility of IN. *Other non-acute coronary syndrome conditions such as CHF, myocarditis, pulmonary emboli, sepsis and cardiac surgery could result in myocardial damage and increased troponin levels. Performed By: #### MG, PHOS, TROPI #### [place] [address] UA Collected: 09/06/2017 Status: F Source: [facility] 6:46 PM [facility] REPOSITORY TYPE CODE TESTS RESULT OUT OF [...] Est Abnormal Large Performed By: #### UA, UAMIC, CRUR, NAUR, CLUR #### [address] [address] UAMIC Collected: 09/06/2017 Status: F Source: [facility] 6:46 PM [facility] REPOSITORY TYPE CODE TESTS RESULT OUT OF [...] Ghost Abnormal cells 5-10 Performed By: #### UA, UAMIC, CRUR, NAUR, CLUR #### [address] [address] CRUR Collected: 09/06/2017 Status: F Source: [facility] 6:46 PM [facility] REPOSITORY TYPE CODE TESTS RESULT OUT OF REFERENCE UNITS RANGE LAB CRU(LOINC) mg/dL U Creatinine 9.5 Performed By: #### UA, UAMIC, CRUR, NAUR, CLUR #### [address] [address] NAUR Collected: 09/06/2017 Status: F Source: [facility] 6:46 PM [facility] REPOSITORY TYPE CODE TESTS RESULT OUT OF REFERENCE UNITS RANGE LAB LYNNETTE(LOINC) mEq/L U Sodium 12.0 Performed By: #### UA, UAMIC, CRUR, NAUR, CLUR #### [address] [address] CLUR Collected: 09/06/2017 Status: F Source: [facility] 6:46 PM [facility] REPOSITORY TYPE CODE TESTS RESULT OUT OF REFERENCE UNITS RANGE LAB CLU(LOINC) mEq/L U Chloride <10.0 Performed By: #### UA, UAMIC, CRUR, NAUR, CLUR #### [address] [address] Observed: 09/06/2017 Status: F Source: [facility] 6:46 PM [facility] REPOSITORY . MICRO - Microbiology PROCEDURE: Urine Culture [*1] SOURCE: Urine, Franco Catheter BODY SITE: COLLECTED DATE/TIME: 09/06/2017 18:46 EDT RECEIVED DATE/TIME: 09/06/2017 18:55 EDT START DATE/TIME: 09/06/2017 18:55 EDT FREE TEXT SOURCE: FINAL REPORTS Final Report [] Verified Date/Time/Personnel: 09/08/2017 11:40 EDT 20,000 organisms per mL Yeast, not Gladis albicans Contact Microbiology within 72 hours if further identification is indicated ([id number]). [place] counts from a single urine are equivocal in determining infection vs. colonization of yeast. Multiple cultures at least 24 hours apart may be helpful in differentiating colonization from infection. PRELIMINARY REPORTS Preliminary Report [] Verified Date/Time/Personnel: 09/07/2017 07:38 EDT No growth to date Performing Locations *1: This test was performed at: [facility], [address] [place] [address], [address] [place] [address] Performed By: #### CUR #### [address] [address] Observed: 09/06/2017 Status: F [facility] 6:46 PM [facility] REPOSITORY . MICRO - Microbiology PROCEDURE: MRSA [...] Locations *1: This test was performed at: [address], [address] [place] [address] Performed By: #### MRPCR #### [place] [address] XR ABDOMEN SERIES Observed: 09/06/2017 Status: F Source: [facility] W/CHEST 1 VIEW 3:15 PM [facility] REPOSITORY ORIGINAL UPRIGHT AND SUPINE VIEWS OF [...] PM K Collected: 09/06/2017 Status: F Source: [facility] 1:32 PM [facility] REPOSITORY TYPE CODE TESTS RESULT OUT OF RANGE REFERENCE UNITS LAB K(LOINC) 3.5-5.0 mEq/L Abnormal Alert Potassium Level 6.6 Performed By: #### K #### [place] [address] Observed: 09/06/2017 Status: F Source: [facility] 1:32 PM [facility] REPOSITORY . MICRO - Microbiology PROCEDURE: Urine Culture [*1] SOURCE: Urine, Clean Catch BODY SITE: COLLECTED DATE/TIME: 09/06/2017 13:32 EDT RECEIVED DATE/TIME: 09/06/2017 13:57 EDT START DATE/TIME: 09/06/2017 13:57 EDT FREE TEXT SOURCE: FINAL REPORTS Final Report [] Verified Date/Time/Personnel: 09/08/2017 11:38 EDT 30,000 organisms per mL Yeast, not Gladis albicans Contact Microbiology within 72 hours if further identification is indicated ([id number]). [place] counts from a single urine are equivocal in determining infection vs. colonization of yeast. Multiple cultures at least 24 hours apart may be helpful in differentiating colonization from infection. PRELIMINARY REPORTS Preliminary Report [] Verified Date/Time/Personnel: 09/07/2017 10:59 EDT Culture results pending. Performing Locations *1: This test was performed at: [facility], [address] [place] [address], [address] [place] [address] Performed By: #### CUR #### [place] [address] LAC Collected: 09/06/2017 Status: F Source: [facility] 11:47 AM [facility] REPOSITORY TYPE CODE TESTS RESULT OUT OF REFERENCE UNITS RANGE LAB LAC(LOINC) 0.2-2.0 mmol/L High Lactic Acid 3.4 Lvl Performed By: #### LAC, CBC, ADIFF, ANEU, GFR, CMP #### [place] [address] CBC Collected: 09/06/2017 Status: F Source: [facility] 11:47 AM [facility] REPOSITORY TYPE CODE TESTS RESULT OUT OF [...] 6.4-10.5 fL MPV 9.8 Performed By: #### LAC, CBC, ADIFF, ANEU, GFR, CMP #### [address] [address] .AUTO DIFF Collected: 09/06/2017 Status: F Source: [facility] 11:47 AM [facility] REPOSITORY TYPE CODE TESTS RESULT OUT OF [...] ) Basophil, 0.00 Absolute Performed By: #### LAC, CBC, ADIFF, ANEU, GFR, CMP #### [address] [address] .NEUABS Collected: 09/06/2017 Status: F Source: [facility] 11:47 AM [facility] REPOSITORY TYPE CODE TESTS RESULT OUT OF REFERENCE UNITS RANGE LAB ANEU(LOINC) 2.25-8.10 10 3/mcL Neutrophil, 6.50 Absolute Performed By: #### LAC, CBC, ADIFF, ANEU, GFR, CMP #### [address] [address] .GFR Collected: 09/06/2017 Status: F Source: [facility] 11:47 AM [facility] REPOSITORY TYPE CODE TESTS RESULT OUT OF REFERENCE UNITS RANGE LAB GFRAA(LOINC ml/min/1.73 ) sqm GFR 12 [place] Result Comment: GFR Population mean for , [...] 15 mL/min/1.73 square meters Performed By: #### LAC, CBC, ADIFF, ANEU, GFR, CMP #### [address] [address] CMP Collected: 09/06/2017 Status: F Source: [facility] 11:47 AM [facility] REPOSITORY TYPE CODE TESTS RESULT OUT OF [...] 12-55 U/L ALT/SGPT 50 Performed By: #### LAC, CBC, ADIFF, ANEU, GFR, CMP #### [place] [address] Observed: 09/06/2017 Status: F Source: [facility] [facility] 11:47 AM [facility] REPOSITORY . MICRO - Microbiology PROCEDURE: Blood Culture (bacterial) [*1] SOURCE: Blood BODY SITE: COLLECTED DATE/TIME: 09/06/2017 11:47 EDT RECEIVED DATE/TIME: 09/06/2017 12:21 EDT START DATE/TIME: 09/06/2017 12:21 EDT FREE TEXT SOURCE: FINAL REPORTS Final Report [] Verified Date/Time/Personnel: 09/09/2017 07:54 EDT Serratia marcescens Isolated from aerobe and anaerobe bottles. Refer to previous culture for susceptibility. [id number], collected 09-06-17 PRELIMINARY REPORTS Preliminary Report [] [...] Locations *1: This test was performed at: [facility], [address] [place] [address], [address] [place] [address] Performed By: #### CBL #### [place] [address] Observed: 09/06/2017 Status: F Source: [facility] 11:47 AM [facility] REPOSITORY . MICRO - Microbiology [...] Locations *1: This test was performed at: [facility], [address] [place] [address], [id number] , [facility] Performed By: #### CBL #### [place] [address] CNPTOUTREACH Observed: 09/05/2017 Status: COMPLETED Source: [place] 12:00 AM [facility] REPOSITORY Patient Outreach (FAMPST) JARON MORSE ([id number]) 1980 Date Time Provider Department 09/05/17 FRANCINE CLARK FAMPST During your visit today, we recorded the following information about you: Allergies As of Date: 09/05/2017 Noted Allergy Reaction SEASONAL ALLERGIES 12/03/2012 14 - Other: See Comments Comments: Environmental-ragweed Date Reviewed: 07/31/2017 Reviewed by: Karol Kim Flume Worker - Fully Assessed Visit Diagnosis:Medication management [Z79.899] Order(s):CBC [SQCBC] Order #: [id number] FUTURE ALBUMIN/CREAT RATIO RND UR [SQUACR] Order #: [id number] FUTURE Prescriptions as of 09/05/2017 Sig: X POLYETHYLENE GLYCOL 3350 17 G* MIX 1 CAPFUL (17 GMS) IN 8 OZ* IN-ACID GAS RELIEF 80 MG CHEW* CHEW 1 [...] 1 TABLET BY MOUTH ONCE D* CITRIC DK-QFSOCXV-JD CARB 6.6* 30 mL by INTRAVESICAL route [...] mouth once d* COMPOUNDED PRESCRIPTION Please provide RILEY blackoca* BISACODYL 10 MG RECTAL SUPPOS* 1 Suppository [...] Status: F Source: [facility] 7:59 AM [facility] REPOSITORY ORIGINAL CT ABDOMEN/PELVIS W/O CONTRAST CLINICAL [...] AM CBC Collected: 09/04/2017 Status: F Source: [facility] 5:56 AM [facility] REPOSITORY TYPE CODE TESTS RESULT OUT OF [...] MPV 8.6 Performed By: #### CBC, ADIFF, ANEU, LIP, GFR, CMP #### [address] [address] .AUTO DIFF Collected: 09/04/2017 Status: F Source: [facility] 5:56 AM [facility] REPOSITORY TYPE CODE TESTS RESULT OUT OF [...] 0.00 Absolute Performed By: #### CBC, ADIFF, ANEU, LIP, GFR, CMP #### [address] [address] .NEUABS Collected: 09/04/2017 Status: F Source: [facility] 5:56 AM [facility] REPOSITORY TYPE CODE TESTS RESULT OUT OF REFERENCE UNITS RANGE LAB ANEU(LOINC) 2.25-8.10 10 3/mcL High Neutrophil, 8.70 Absolute Performed By: #### CBC, ADIFF, ANEU, LIP, GFR, CMP #### [place] [address] LIP Collected: 09/04/2017 Status: F Source: [facility] 5:56 AM [facility] REPOSITORY TYPE CODE TESTS RESULT OUT OF REFERENCE UNITS RANGE LAB LIP(LOINC) 73-393 U/L Lipase Level 103 Performed By: #### CBC, ADIFF, ANEU, LIP, GFR, CMP #### [address] [address] .GFR Collected: 09/04/2017 Status: F Source: [facility] 5:56 AM [facility] REPOSITORY TYPE CODE TESTS RESULT OUT OF REFERENCE UNITS RANGE LAB GFRAA(LOINC ml/min/1.73 ) sqm GFR 35 Bahraini Result Comment: GFR Population mean for , [...] square meters Performed By: #### CBC, ADIFF, ANEU, LIP, GFR, CMP #### [address] [address] CMP Collected: 09/04/2017 Status: F Source: [facility] 5:56 AM [facility] REPOSITORY TYPE CODE TESTS RESULT OUT OF [...] ALT/SGPT 36 Performed By: #### CBC, ADIFF, ANEU, LIP, GFR, CMP #### [place] [address] UA Collected: 09/04/2017 Status: F Source: [facility] 5:56 AM [facility] REPOSITORY TYPE CODE TESTS [...] Large Performed By: #### UA, UAMIC #### [place] [address] UAMIC Collected: 09/04/2017 Status: F Source: [facility] 5:56 AM [facility] REPOSITORY TYPE CODE TESTS RESULT OUT OF RANGE REFERENCE UNITS LAB RBCUA(LOIN 0-2 /hpf C) UA Abnormal RBC LOADED LAB WBCUA(LOIN 0-5 /hpf C) UA Abnormal WBC LOADED LAB EPIUA(LOIN 0-20 /hpf C) UA Squam Negative Epithelial LAB BACUA(LOIN Negative /hpf C) UA Abnormal Bacteria 4+ LAB GLTUA(LOIN /hpf C) UA Abnormal Glitter cells 25-50 Performed By: #### UA, UAMIC #### [place] [address] CBC Collected: 08/01/2017 Status: F Source: [facility] 1:11 PM [facility] REPOSITORY TYPE CODE TESTS RESULT OUT OF [...] 6.4-10.5 fL MPV 9.5 Performed By: #### REED PENA ANEU #### [address] [address] .AUTO DIFF Collected: 08/01/2017 Status: F Source: [facility] 1:11 PM [facility] REPOSITORY TYPE CODE TESTS RESULT OUT OF [...] ) Basophil, 0.10 Absolute Performed By: #### REED PENA ANEU #### [address] [address] .NEUABS Collected: 08/01/2017 Status: F Source: [facility] 1:11 PM [facility] REPOSITORY TYPE CODE TESTS RESULT OUT OF REFERENCE UNITS RANGE LAB ANEU(LOINC) 2.25-8.10 10 3/mcL Neutrophil, 3.40 Absolute Performed By: #### REED PENA ANEU #### [address] [address] CNPN Observed: 08/01/2017 Status: COMPLETED Source: [place] 12:00 AM [facility] REPOSITORY Telephone (INTMWS) MINIJARON Yaquelin ([id number]) 1980 M Date Time Provider Department 08/01/17 [...] 1 TABLET BY MOUTH ONCE D* CITRIC VM-CMCRUNE-ET CARB 6.6* 30 mL by INTRAVESICAL route t* IN-ACID GAS RELIEF 80 MG CHEW* CHEW 1 [...] F Source: [facility] NO DIFF 2:17 PM [facility] REPOSITORY TYPE CODE TESTS RESULT OUT OF [...] Performed By: #### L100.0500 #### [facility] [address] [place], [place], [id number] PROTEIN, TOTAL Collected: 07/31/2017 Status: F Source: [place] 2:17 PM [facility] REPOSITORY TYPE CODE TESTS RESULT OUT OF RANGE REFERENCE UNITS LAB L501.1500 6.4-8.2 g/dL Normal T PROT 7.8 LAB L501.1950 2.2-4.2 g/dL High GLOB 4.4 LAB L501.2000 0.9-2.4 RATIO Low A/G 0.8 Performed By: #### L001.0705, L500.3600, L501.4100, L501.4305, L501.4405, L501.4600, L501.4700 #### [facility] [address] [place], [place], [id number] RENAL PROFILE Collected: 07/31/2017 Status: F Source: [place] 2:17 PM [facility] REPOSITORY TYPE CODE TESTS RESULT OUT OF [...] L501.4305, L501.4405, L501.4600, L501.4700 #### [facility] [address] [place], [address] AST(SGOT) Collected: 07/31/2017 Status: F Source: [place] 2:17 PM [facility] REPOSITORY TYPE CODE TESTS RESULT OUT OF RANGE REFERENCE UNITS LAB L501.4100 15-37 U/L Normal AST 35 Performed By: #### L001.0705, L500.3600, L501.4100, L501.4305, L501.4405, L501.4600, L501.4700 #### [facility] [address] [place], [place], [phone] ALKALINE PHOSPHATASE Collected: 07/31/2017 Status: F Source: [place] 2:17 PM [facility] REPOSITORY TYPE CODE TESTS RESULT OUT OF RANGE REFERENCE UNITS LAB L501.4305 45-117 U/L High ALK P 156 Performed By: #### L001.0705, L500.3600, L501.4100, L501.4305, L501.4405, L501.4600, L501.4700 #### [facility] [address] [place], [place], [id number] ALANINE AMINOTRANSFERAS Collected: 07/31/2017 Status: F Source: [place] (SGPT) 2:17 PM [facility] REPOSITORY TYPE CODE TESTS RESULT OUT OF RANGE REFERENCE UNITS LAB L501.4405 16-61 U/L Normal ALT 42 Result Comment: Please note revised ALT reference range effective 2017. Performed By: #### L001.0705, L500.3600, L501.4100, L501.4305, L501.4405, L501.4600, L501.4700 #### [facility] [address] [place], [place], [id number] BILIRUBIN, TOTAL Collected: 07/31/2017 Status: F Source: [place] 2:17 PM [facility] REPOSITORY TYPE CODE TESTS RESULT OUT OF RANGE REFERENCE UNITS LAB L501.4600 0.20-1.00 mg/dL Normal T BILI 0.30 Performed By: #### L001.0705, L500.3600, L501.4100, L501.4305, L501.4405, L501.4600, L501.4700 #### [facility] [address] [place], [place], [address] BILIRUBIN, DIRECT Collected: 07/31/2017 Status: F Source: [place] 2:17 PM [facility] REPOSITORY TYPE CODE TESTS RESULT OUT OF RANGE REFERENCE UNITS LAB L501.4700 0.00-0.30 mg/dL Normal D BILI 0.07 Performed By: #### L001.0705, L500.3600, L501.4100, L501.4305, L501.4405, L501.4600, L501.4700 #### [facility] [address] [place], [address] HEMOGLOBIN A1C Collected: 07/31/2017 Status: F Source: [place] 2:17 PM [facility] REPOSITORY TYPE CODE TESTS RESULT OUT OF RANGE REFERENCE UNITS LAB L501.9985 4.2-6.3 % High HGB A1C 8.2 Performed By: #### L501.9985 #### [facility] [address] [facility] [place], [address] PROGRESS Observed: 07/31/2017 Status: COMPLETED Source: [place] 1:48 PM [facility] REPOSITORY HNO ID: [id number] Author: Corinne Moran Service: (none) Author Type: Nurse Practitioner Type: Progress Notes Filed: 08/01/2017 9:46 AM Note Text: Hospital records from [facility] received and reviewed. Patient admitted on 07/13/17 [...] CNP PROGRESS Observed: 07/31/2017 Status: COMPLETED Source: [place] 9:48 AM [facility] REPOSITORY HNO ID: [id number] Author: Corinne (Angie) Older Service: (none) Author Type: Nurse Practitioner Type: Progress Notes Filed: 08/01/2017 10:58 AM Note Text: CC: Hospital follow-up HPI Jaron Morse is a 37 year old male who presents today for hospital follow-up. Patient admitted to [facility] for hematuria with blood clots. No records available at this time. Patient has mild intellectual disability, accompanied by caregiver [facility]. Per patient he required 1 unit of blood during admission. Also developed blood clot in right arm from PICC line. Patient unsure about cause of bleeding, states they irrigated his suprapubic catheter with a lot of salt water. Patient saw urologist at [facility] last week for discharge follow- up. Denies [...] ONCE DAILY 1/2 HR BEFORE BREAKFAST citric wort-pgfdgbydiae-jsi carb (RENACIDIN) 6.602-3.268 gram/100 mL irrigation 30 mL by INTRAVESICAL route three times daily. IN-ACID GAS RELIEF 80 mg chewable tablet CHEW [...] mouth once daily. 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 CKD (chronic kidney disease) stage 4, GFR 15-29 ml/min ([facility]) - ICD9: 585.4, ICD10: N18.4 Follow-up with nephrology as scheduled Corinne Older, [facility] Prescription instructions reviewed with patient as applicable. Potential red flag symptoms discussed with the patient. Reviewed appropriate action plan to take if red flag symptoms occur. Patient agreeable to treatment plan. .GFR Collected: 07/23/2017 Status: F Source: [facility] 4:57 PM [facility] REPOSITORY TYPE CODE TESTS RESULT OUT OF REFERENCE UNITS RANGE LAB GFRAA(LOINC ml/min/1.73 ) sqm GFR 45 Bahraini Result Comment: GFR Population mean for , [...] meters Performed By: #### GFR, BMP #### [place] [id number] [address] [place] [address] BMP Collected: 07/23/2017 Status: F Source: [facility] 4:57 PM [facility] REPOSITORY TYPE CODE TESTS RESULT OUT OF [...] 8.2 Performed By: #### GFR, BMP #### [address] [address] .GFR Collected: 07/23/2017 Status: F Source: [facility] 1:51 PM [facility] REPOSITORY TYPE CODE TESTS RESULT OUT OF REFERENCE UNITS RANGE LAB GFRAA(LOINC ml/min/1.73 ) sqm GFR 59 Bahraini Result Comment: GFR Population mean for , [...] meters Performed By: #### GFR, BMP #### [place] [address] BMP Collected: 07/23/2017 Status: F Source: [facility] 1:51 PM [facility] REPOSITORY TYPE CODE TESTS RESULT [...] Alert Performed By: #### GFR, BMP #### [address] [address] CBC Collected: 07/23/2017 Status: F Source: [facility] 5:06 AM [facility] REPOSITORY TYPE CODE TESTS RESULT OUT OF [...] 6.4-10.5 fL MPV 8.7 Performed By: #### CBC, ADIFF, ANEU, MG, BMP, GFR #### [address] [address] .AUTO DIFF Collected: 07/23/2017 Status: F Source: [facility] 5:06 AM [facility] REPOSITORY TYPE CODE TESTS RESULT OUT OF [...] 0.00 Absolute Performed By: #### CBC, ADIFF, ANEU, MG, BMP, GFR #### [place] [address] .NEUABS Collected: 07/23/2017 Status: F Source: [facility] 5:06 AM [facility] REPOSITORY TYPE CODE TESTS RESULT OUT OF REFERENCE UNITS RANGE LAB ANEU(LOINC) 2.25-8.10 10 3/mcL Neutrophil, 5.80 Absolute Performed By: #### CBC, ADIFF, ANEU, MG, BMP, GFR #### [place] [address] MG Collected: 07/23/2017 Status: F Source: [facility] 5:06 AM [facility] REPOSITORY TYPE CODE TESTS RESULT OUT OF REFERENCE UNITS RANGE LAB MG(LOINC) 1.6-2.4 mg/dL Magnesium Lvl 1.6 Performed By: #### CBC, ADIFF, ANEU, MG, BMP, GFR #### [place] [address] BMP Collected: 07/23/2017 Status: F Source: [facility] 5:06 AM [facility] REPOSITORY TYPE CODE TESTS RESULT OUT OF [...] Lvl 8.5 Performed By: #### CBC, ADIFF, ANEU, MG, BMP, GFR #### [address] [address] .GFR Collected: 07/23/2017 Status: F Source: [facility] 5:06 AM [facility] REPOSITORY TYPE CODE TESTS RESULT OUT OF REFERENCE UNITS RANGE LAB GFRAA(LOINC ml/min/1.73 ) sqm GFR 43 Bahraini Result Comment: GFR Population mean for , [...] square meters Performed By: #### CBC, ADIFF, ANEU, MG, BMP, GFR #### [address] [address] Observed: 07/22/2017 Status: F Source: [facility] 12:13 PM [facility] REPOSITORY . MICRO - Microbiology PROCEDURE: Urine Culture [O1 *1] SOURCE: Urine, Franco Catheter BODY SITE: COLLECTED DATE/TIME: 07/22/2017 12:13 EST RECEIVED DATE/TIME: 07/22/2017 14:39 EST START DATE/TIME: 07/22/2017 14:39 EST FREE TEXT SOURCE: FINAL REPORTS Final Report [] Verified Date/Time/Personnel: 07/23/2017 11:36 EST >100,000 organisms per mL Yeast, not Gladis albicans Contact Microbiology within 72 hours if further identification is indicated ([id number]). [place] counts from a single urine are equivocal in determining infection vs. colonization of yeast. Multiple cultures at least 24 hours apart may be helpful in differentiating colonization from infection. Order Comments O1: Urine Culture fresh tube specimen Performing Locations *1: This test was performed at: [address] Performed By: #### CUR #### [place] [address] BMP Collected: 07/22/2017 Status: F Source: [facility] 4:49 AM [facility] REPOSITORY TYPE CODE TESTS RESULT [...] mg/dL Calcium Lvl 8.8 Performed By: #### BMP, MG, GFR, CBC, ADIFF, ANEU #### [address] [address] MG Collected: 07/22/2017 Status: F Source: [facility] 4:49 AM [facility] REPOSITORY TYPE CODE TESTS RESULT OUT OF REFERENCE UNITS RANGE LAB MG(LOINC) 1.6-2.4 mg/dL Magnesium Lvl 1.7 Performed By: #### BMP, MG, GFR, CBC, ADIFF, ANEU #### [address] [address] .GFR Collected: 07/22/2017 Status: F Source: [facility] 4:49 AM [facility] REPOSITORY TYPE CODE TESTS RESULT OUT OF REFERENCE UNITS RANGE LAB GFRAA(LOINC ml/min/1.73 ) sqm GFR 41 Bahraini Result Comment: GFR Population mean for , [...] mL/min/1.73 square meters Performed By: #### BMP, MG, GFR, CBC, ADIFF, ANEU #### [address] [address] CBC Collected: 07/22/2017 Status: F Source: [facility] 4:49 [facility] REPOSITORY TYPE CODE TESTS RESULT OUT OF [...] 6.4-10.5 fL MPV 8.6 Performed By: #### BMP, MG, GFR, CBC, ADIFF, ANEU #### [place] [address] .AUTO DIFF Collected: 07/22/2017 Status: F Source: [facility] 4:49 [facility] REPOSITORY TYPE CODE TESTS RESULT OUT OF [...] Basophil, 0.00 Absolute Performed By: #### BMP, MG, GFR, CBC, ADIFF, ANEU #### [address] [address] .NEUABS Collected: 07/22/2017 Status: F Source: [facility] 4:49 AM [facility] REPOSITORY TYPE CODE TESTS RESULT OUT OF REFERENCE UNITS RANGE LAB ANEU(LOINC) 2.25-8.10 10 3/mcL Neutrophil, 6.20 Absolute Performed By: #### BMP, MG, GFR, CBC, ADIFF, ANEU #### [place] [address] CBC Collected: 07/21/2017 Status: F Source: [facility] 5:17 AM [facility] REPOSITORY TYPE CODE TESTS RESULT OUT OF [...] 6.4-10.5 fL MPV 8.4 Performed By: #### CBC, ADIFF, ANEU, MG, GFR, BMP #### [address] [address] .AUTO DIFF Collected: 07/21/2017 Status: F Source: [facility] 5:17 AM [facility] REPOSITORY TYPE CODE TESTS RESULT OUT OF [...] 0.00 Absolute Performed By: #### CBC, ADIFF, ANEU, MG, GFR, BMP #### [place] [address] .NEUABS Collected: 07/21/2017 Status: F Source: [facility] 5:17 AM [facility] REPOSITORY TYPE CODE TESTS RESULT OUT OF REFERENCE UNITS RANGE LAB ANEU(LOINC) 2.25-8.10 10 3/mcL Neutrophil, 5.70 Absolute Performed By: #### CBC, ADIFF, ANEU, MG, GFR, BMP #### [place] [address] MG Collected: 07/21/2017 Status: F Source: [facility] 5:17 AM [facility] REPOSITORY TYPE CODE TESTS RESULT OUT OF REFERENCE UNITS RANGE LAB MG(LOINC) 1.6-2.4 mg/dL Magnesium Lvl 1.7 Performed By: #### CBC, ADIFF, ANEU, MG, GFR, BMP #### [place] [address] .GFR Collected: 07/21/2017 Status: F Source: [facility] 5:17 AM [facility] REPOSITORY TYPE CODE TESTS RESULT OUT OF REFERENCE UNITS RANGE LAB GFRAA(LOINC ml/min/1.73 ) sqm GFR 43 Bahraini Result Comment: GFR Population mean for , [...] square meters Performed By: #### CBC, ADIFF, ANEU, MG, GFR, BMP #### [place] [address] BMP Collected: 07/21/2017 Status: F Source: [facility] 5:17 AM [facility] REPOSITORY TYPE CODE TESTS [...] Lvl 8.5 Performed By: #### CBC, ADIFF, ANEU, MG, GFR, BMP #### [place] [address] DIMER Collected: 07/21/2017 Status: F Source: [facility] 12:53 AM [facility] REPOSITORY TYPE CODE TESTS RESULT OUT OF [...] should be performed accordingly. Performed By: #### DIMER, HOMO, MARCIN, CIRAN, CARDI, APCV2, PTGEN #### [place] [address] HOMO Collected: 07/21/2017 Status: F Source: [facility] 12:53 AM [facility] REPOSITORY TYPE CODE TESTS RESULT OUT OF REFERENCE UNITS RANGE LAB HOMO(LOINC 3.0-11.9 umol/l ) Homocysteine (serum) 10.9 Performed By: #### DIMER, HOMO, MARCIN, CIRAN, CARDI, APCV2, PTGEN #### [place] [address] MARCIN Collected: 07/21/2017 Status: F Source: [facility] 12:53 AM [facility] REPOSITORY TYPE CODE TESTS RESULT OUT OF RANGE REFERENCE UNITS LAB MARCIN(LOINC) Neg 40 MARCIN Neg 40 Performed By: #### DIMER, HOMO, MARCIN, CIRAN, CARDI, APCV2, PTGEN #### [place] [address] CIRAN Collected: 07/21/2017 Status: F Source: [facility] 12:53 AM [facility] REPOSITORY TYPE CODE TESTS RESULT OUT OF [...] results with clinical correlation. Performed By: #### DIMER, HOMO, MARCIN, CIRAN, CARDI, APCV2, PTGEN #### [place] [address] CARDI Collected: 07/21/2017 Status: F Source: [facility] 12:53 AM [facility] REPOSITORY TYPE CODE TESTS RESULT OUT OF REFERENCE UNITS RANGE LAB [id number] GPL U/mL (LOINC) Cardiolipin IgG 1.8 Result Comment: REFERENCE RANGES FOR ANTI- CARDIOLIPIN ANTIBODIES BY EIA: Negative <10 U/mL Positive >= 12 U/mL Equivocal >= 10 - <12 U/mL INTERPRETATION OF ANTI-CARDIOLIPIN ANTIBODIES BY EIA: Negative No detectable antibodies to Cardiolipin. Positive Antibody to Cardiolipin detected. Equivocal Equivocal for antibodies to Cardiolipin. Repeat testing if still indicated. LAB [id number](LOINC) MPL U/mL Cardiolipin IgM 2.3 Result Comment: REFERENCE RANGES FOR ANTI- CARDIOLIPIN ANTIBODIES BY EIA: Negative <10 U/mL Positive >= 12 U/mL Equivocal >= 10 - <12 U/mL INTERPRETATION OF ANTI-CARDIOLIPIN ANTIBODIES BY EIA: Negative No detectable antibodies to Cardiolipin. Positive Antibody to Cardiolipin detected. Equivocal Equivocal for antibodies to Cardiolipin. Repeat testing if still indicated. Performed By: #### DIMER, HOMO, MARCIN, CIRAN, CARDI, APCV2, PTGEN #### [place] [address] APCV Collected: 07/21/2017 Status: F Source: [facility] 12:53 AM [facility] REPOSITORY TYPE CODE TESTS RESULT OUT OF REFERENCE UNITS RANGE LAB APCR(LOINC ratio ) APC Factor V 2.4 Resistance Result Comment: This APCV result demonstrates no Resistance to Activated Protein C. APC Factor V Resistance Reference Range: <= 2.3 Positive > 2.3 Negative Performed By: #### DIMER, HOMO, MARCIN, CIRAN, CARDI, APCV2, PTGEN #### [address] [address] PTGEN Collected: 07/21/2017 Status: F Source: [facility] 12:53 AM [facility] REPOSITORY TYPE CODE TESTS RESULT OUT OF RANGE REFERENCE UNITS LAB PTINT(LOINC ) PT Gene (NOTE) Mut Result Comment: Performing Pathologist: Dr. Greg Alvarez M.D., Ph.D. PT Gene Mutation Result: NORMAL PT Gene Mutation Interpretation: The DNA sample is negative for the [id number] point mutation in the 3' untranslated region of the prothrombin gene.This is not associated with an increased risk of venous thrombosis.Venous thrombosis is a multifactorial disorder, and other causes of venous thrombosis are not excluded. PT Gene Mutation Method: This assay was performed by polymerase chain reaction and fluorescence monitoring using hybridization probes. Performed By: [facility] [address] [place] [address] Inventory Technician: Chyna Blanton M.D. CLIA#: [id number] Phone#: Performed By: #### DIMER, HOMO, MARCIN, CIRAN, CARDI, APCV2, PTGEN #### [address] [address] Observed: 07/21/2017 Status: F Source: [facility] 12:53 AM [facility] REPOSITORY . MICRO - Microbiology PROCEDURE: Urine [...] 72 hours if further identification is indicated ([id number]). [place] counts from a single urine are equivocal in determining infection vs. colonization of yeast. Multiple cultures at least 24 hours apart may be helpful in differentiating colonization from infection. Performing Locations *1: This test was performed at: [address], [address] [place] [address] Performed By: #### CUR #### [address] [address] HH Collected: 07/20/2017 Status: F Source: [facility] 5:47 PM [facility] REPOSITORY TYPE CODE TESTS RESULT OUT OF RANGE REFERENCE UNITS LAB HGB(LOINC) 13.0-17.5 G/dL Low Hgb 8.2 LAB HCT(LOINC) 40.0-52.0 % Low Hct 24.0 Performed By: #### HH #### [place] [address] Observed: 07/20/2017 Status: F Source: [facility] 3:46 PM [facility] REPOSITORY . MICRO - Microbiology PROCEDURE: Culture [...] Locations *1: This test was performed at: [address], [address] [place] [address] Performed By: #### CRESP #### [place] [id number] MABO Collected: 07/20/2017 Status: F Source: [facility] 12:32 PM [facility] REPOSITORY TYPE CODE TESTS RESULT OUT OF RANGE REFERENCE UNITS LAB ABORH(LOINC ) Unknown ABO/Rh O POS Interp Performed By: #### ABOM, ANSM #### [place] [address] MABS Collected: 07/20/2017 Status: F Source: [facility] 12:32 PM [facility] REPOSITORY TYPE CODE TESTS RESULT OUT OF REFERENCE UNITS RANGE LAB ANSM(LOINC ) Antibody Negative ABSC Screen Manual Performed By: #### KELTON MARTINEZ #### [place] [address] RBC (PRODUCT) Collected: 07/20/2017 Status: F Source: [facility] 7:51 AM [facility] REPOSITORY TYPE CODE TESTS RESULT OUT OF REFERENCE UNITS RANGE LAB RBCPR(LOINC ) RBC Product RBC Ready Ready for Pickup Performed By: #### RBCP #### [place] [address] BG Collected: 07/20/2017 Status: F Source: [facility] 7:06 AM [facility] REPOSITORY TYPE CODE TESTS RESULT OUT OF [...] 732 Pressure Performed By: #### BG #### [place] [address] LAC Collected: 07/20/2017 Status: F Source: [facility] 5:56 AM [facility] REPOSITORY TYPE CODE TESTS RESULT OUT OF REFERENCE UNITS RANGE LAB LAC(LOINC) 0.2-2.0 mmol/L Lactic Acid 0.7 Lvl Performed By: #### LAC, CBC, MG, GFR, BMP, DIFF, MORPH, MYCO #### [place] [address] CBC Collected: 07/20/2017 Status: F Source: [facility] 5:56 AM [facility] REPOSITORY TYPE CODE TESTS RESULT OUT OF [...] 6.4-10.5 fL MPV 9.0 Performed By: #### LAC, CBC, MG, GFR, BMP, DIFF, MORPH, MYCO #### [place] [address] MG Collected: 07/20/2017 Status: F Source: [facility] 5:56 AM [facility] REPOSITORY TYPE CODE TESTS RESULT OUT OF REFERENCE UNITS RANGE LAB MG(LOINC) 1.6-2.4 mg/dL Magnesium Lvl 1.6 Performed By: #### LAC, CBC, MG, GFR, BMP, DIFF, MORPH, MYCO #### [address] [address] .GFR Collected: 07/20/2017 Status: F Source: [facility] 5:56 AM [facility] REPOSITORY TYPE CODE TESTS RESULT OUT OF REFERENCE UNITS RANGE LAB GFRAA(LOINC ml/min/1.73 ) sqm GFR 45 Bahraini Result Comment: GFR Population mean for , [...] 15 mL/min/1.73 square meters Performed By: #### LAC, CBC, MG, GFR, BMP, DIFF, MORPH, MYCO #### [place] [address] BMP Collected: 07/20/2017 Status: F Source: [facility] 5:56 AM [facility] REPOSITORY TYPE CODE TESTS RESULT OUT OF [...] Low Calcium Lvl 7.1 Performed By: #### LAC, CBC, MG, GFR, BMP, DIFF, MORPH, MYCO #### [address] [address] .MANUAL DIFF Collected: 07/20/2017 Status: F Source: [facility] 5:56 AM [facility] REPOSITORY TYPE CODE TESTS RESULT OUT OF [...] Basophil, Abs Manual 0.00 Performed By: #### LAC, CBC, MG, GFR, BMP, DIFF, MORPH, MYCO #### [address] [address] .MORPH Collected: 07/20/2017 Status: F Source: [facility] 5:56 AM [facility] REPOSITORY TYPE CODE TESTS RESULT OUT OF REFERENCE UNITS RANGE LAB PLTE(LOINC ) Platelet Normal Estimate LAB POLC(LOINC ) Polychrom Slight Performed By: #### LAC, CBC, MG, GFR, BMP, DIFF, MORPH, MYCO #### [address] [address] MYCO Collected: 07/20/2017 Status: F Source: [facility] 5:56 AM [facility] REPOSITORY TYPE CODE TESTS RESULT OUT OF REFERENCE UNITS RANGE LAB CD:[id number]([facility]) Mycoplasma IgM Negative Result Comment: INTERPRETATION OF MYCOPLASMA BY EIA (Effective 06/24/04): Negative No detectable antibodies to M. pneumoniae. Indicates absence of current or previous infection. Positive Reactive for antibodies to M. pneumoniae. Indicates a past or recent infection. Equivocal Equivocal for antibodies to M. pneumoniae. Repeat testing by an alternate method suggested. LAB CD:[id number]([facility]) Mycoplasma IgG Neg Result Comment: INTERPRETATION OF MYCOPLASMA BY EIA (Effective 06/24/04): Negative No detectable antibodies to M. pneumoniae. Indicates absence of current or previous infection. Positive Reactive for antibodies to M. pneumoniae. Indicates a past or recent infection. Equivocal Equivocal for antibodies to M. pneumoniae. Repeat testing by an alternate method suggested. Performed By: #### LAC, CBC, MG, GFR, BMP, DIFF, MORPH, MYCO #### [place] [address] Observed: 07/20/2017 Status: F Source: [facility] 5:56 AM [facility] REPOSITORY . MICRO - Microbiology PROCEDURE: Blood [...] Locations *1: This test was performed at: [address], [address] [place] [address] Performed By: #### CBL #### [place] [address] Observed: 07/20/2017 Status: F Source: [facility] 5:56 AM [facility] REPOSITORY . MICRO - Microbiology PROCEDURE: Blood [...] Locations *1: This test was performed at: [address] Performed By: #### CFUNGB #### [place] [address] Observed: 07/19/2017 Status: F Source: [facility] 9:38 PM [facility] REPOSITORY . MICRO - Microbiology PROCEDURE: Streptococcus [...] Locations *1: This test was performed at: [address] Performed By: #### SPAG #### [place] [address] Observed: 07/19/2017 Status: F Source: [facility] 9:38 PM [facility] REPOSITORY . MICRO - Microbiology PROCEDURE: Legionella [...] Locations *1: This test was performed at: [address] Performed By: #### CATRACHITA #### [place] [address] BMP Collected: 07/19/2017 Status: F Source: [facility] 7:21 [facility] REPOSITORY TYPE CODE TESTS RESULT [...] 8.2 Performed By: #### BMP, GFR #### [place] [address] .GFR Collected: 07/19/2017 Status: F Source: [facility] 7:21 PM [facility] REPOSITORY TYPE CODE TESTS RESULT OUT OF REFERENCE UNITS RANGE LAB GFRAA(LOINC ml/min/1.73 ) sqm GFR 38 [place]raini Result Comment: GFR Population mean for , [...] meters Performed By: #### BMP, GFR #### [place] [address] VANCT Collected: 07/19/2017 Status: F Source: [facility] 7:21 PM [facility] REPOSITORY TYPE CODE TESTS RESULT OUT OF RANGE REFERENCE UNITS LAB LD019(LOIN C) LDose Vancomycin:(trou See eMAR gh) LAB 4092-3 5.0-20.0 mcg/mL Abnormal VANCOMYCIN 21.5 Alert Result Comment: Call to pharmacy at EXT. [phone] Performed By: #### VANCT #### [place] [address] IR PICC LINE PLACEMENT Observed: 07/19/2017 Status: F Source: [facility] 2:45 PM [facility] REPOSITORY ORIGINAL PROCEDURE(S): 1. PICC placement with fluoroscopy and ultrasound guidance 2. 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 Digital subtraction angiography images demon strate [...] MD Preliminary Report By: Jose J Estrada [facility] Electronically Signed By: Phan Oropeza MD Dictated Date: 07/20/2017 5:35:50 PM Prelim Date: 07/20/2017 5:43:51 PM Sign Date: 07/20/2017 7:00:14 PM CRUR Collected: 07/19/2017 Status: F Source: [facility] 10:08 [facility] REPOSITORY TYPE CODE TESTS RESULT OUT OF REFERENCE UNITS RANGE LAB CRU(LOINC) mg/dL U Creatinine 16.4 Performed By: #### CRUR, UNUR, NAUR, UA, UAMIC #### [place] [address] UNUR Collected: 07/19/2017 Status: F Source: [facility] 10:08 [facility] REPOSITORY TYPE CODE TESTS RESULT OUT OF RANGE REFERENCE UNITS LAB UNU(LOINC) mg/dL U Urea 142.0 Performed By: #### CRUR, UNUR, NAUR, UA, UAMIC #### [place] [address] NAUR Collected: 07/19/2017 Status: F Source: [facility] 10:08 AM [facility] REPOSITORY TYPE CODE TESTS RESULT OUT OF REFERENCE UNITS RANGE LAB LYNNETTE(LOINC) mEq/L U Sodium 60.0 Performed By: #### CRUR, UNUR, NAUR, UA, UAMIC #### [place] [address] UA Collected: 07/19/2017 Status: F Source: [facility] 10:08 [facility] REPOSITORY TYPE CODE TESTS RESULT OUT OF [...] Leuk Est Abnormal Moderate Performed By: #### OSITO ALVARENGA NAUR, UA, UAMIC #### [place] [address] UAMIC Collected: 07/19/2017 Status: F Source: [facility] 10:08 AM [facility] REPOSITORY TYPE CODE TESTS RESULT OUT OF RANGE REFERENCE UNITS LAB RBCUA(LOIN 0-2 /hpf C) UA RBC Rare LAB WBCUA(LOIN 0-5 /hpf C) UA Abnormal WBC 10-20 LAB EPIUA(LOIN 0-20 /hpf C) UA Squam Negative Epithelial LAB BACUA(LOIN Negative /hpf C) UA Abnormal Bacteria Trace LAB YSTUA(LOIN /hpf C) UA Abnormal Yeast 4+ Performed By: #### OSITO ALVARENGA, NAUR, UA, UAMIC #### [place] [address] Observed: 07/19/2017 Status: F Source: [facility] 10:08 AM [facility] REPOSITORY . MICRO - Microbiology PROCEDURE: Urine Culture [*1] SOURCE: Urine, Clean Catch BODY SITE: COLLECTED DATE/TIME: 07/19/2017 10:08 EST RECEIVED DATE/TIME: 07/19/2017 10:13 EST START DATE/TIME: 07/19/2017 10:13 EST FREE TEXT SOURCE: FINAL REPORTS Final Report [] Verified Date/Time/Personnel: 07/20/2017 14:48 EST >100,000 organisms per mL Yeast, not Gladis albicans Contact Microbiology within 72 hours if further identification is indicated ([id number]). [place] counts from a single urine are equivocal in determining infection vs. colonization of yeast. Multiple cultures at least 24 hours apart may be helpful in differentiating colonization from infection. PRELIMINARY REPORTS Preliminary Report [] Verified Date/Time/Personnel: 07/20/2017 11:34 EST >100,000 organisms per mL Yeast Identification to follow. Performing Locations *1: This test was performed at: [facility], [address] [place] [address], [address] [place] [address] Performed By: #### CUR #### [place] [address] XR CHEST 1 VIEW Observed: 07/19/2017 Status: F Source: [facility] 8:36 AM [facility] REPOSITORY ORIGINAL Chest one view 9:18 AM [...] AM BMP Collected: 07/19/2017 Status: F Source: [facility] 6:25 AM [facility] REPOSITORY TYPE CODE TESTS RESULT OUT OF [...] Low Calcium Lvl 8.3 Performed By: #### BMP, GFR, MORPH, CBC, ADIFF, ANEU, A1C #### [address] [address] .GFR Collected: 07/19/2017 Status: F Source: [facility] 6:25 AM [facility] REPOSITORY TYPE CODE TESTS RESULT OUT OF REFERENCE UNITS RANGE LAB GFRAA(LOINC ml/min/1.73 ) sqm GFR 40 [place]i Result Comment: GFR Population mean for , [...] meters Performed By: #### BMP, GFR, MORPH, CBC, ADIFF, ANEU, A1C #### [address] [address] .MORPH Collected: 07/19/2017 Status: F Source: [facility] 6:25 AM [facility] REPOSITORY TYPE CODE TESTS RESULT OUT OF REFERENCE UNITS RANGE LAB PLTE(LOINC) Platelet Normal Estimate Result Comment: Few large platelets seen. LAB ANIS(LOINC) Anisocytosis Slight LAB POIK(LOINC) Poik Slight LAB HYPC(LOINC) Hypochrom Slight LAB POLC(LOINC) Polychrom Slight Performed By: #### BMP, GFR, MORPH, CBC, ADIFF, ANEU, A1C #### [place] [address] CBC Collected: 07/19/2017 Status: F Source: [facility] 6:25 AM [facility] REPOSITORY TYPE CODE TESTS RESULT OUT OF [...] fL High MPV 10.7 Performed By: #### BMP, GFR, MORPH, CBC, ADIFF, ANEU, A1C #### [place] [address] .AUTO DIFF Collected: 07/19/2017 Status: F Source: [facility] 6:25 AM [facility] REPOSITORY TYPE CODE TESTS RESULT OUT OF [...] Basophil, 0.10 Absolute Performed By: #### BMP, GFR, MORPH, CBC, ADIFF, ANEU, A1C #### [place] [address] .NEUABS Collected: 07/19/2017 Status: F Source: [facility] 6:25 AM [facility] REPOSITORY TYPE CODE TESTS RESULT OUT OF REFERENCE UNITS RANGE LAB ANEU(LOINC) 2.25-8.10 10 3/mcL High Neutrophil, 8.80 Absolute Performed By: #### BMP, GFR, MORPH, CBC, ADIFF, ANEU, A1C #### [place] [address] A1C Collected: 07/19/2017 Status: F Source: [facility] 6:25 AM [facility] REPOSITORY TYPE CODE TESTS RESULT OUT OF RANGE REFERENCE UNITS LAB A1C(LOINC) 4.0-6.0 % High Hgb A1c 8.1 Performed By: #### BMP, GFR, MORPH, CBC, ADIFF, ANEU, A1C #### [place] [address] BMP Collected: 07/18/2017 Status: F Source: [facility] 2:25 PM [facility] REPOSITORY TYPE CODE TESTS RESULT OUT OF [...] Low Calcium Lvl 8.0 Performed By: #### BMP, GFR #### [place] [address] .GFR Collected: 07/18/2017 Status: F Source: [facility] 2:25 PM [facility] REPOSITORY TYPE CODE TESTS RESULT OUT OF REFERENCE UNITS RANGE LAB GFRAA(LOINC ml/min/1.73 ) sqm GFR 38 [place]i Result Comment: GFR Population mean for , [...] meters Performed By: #### BMP, GFR #### [facility] [address] [place], [place] [address] VANCT Collected: 07/18/2017 Status: F Source: [facility] 2:25 PM [facility] REPOSITORY TYPE CODE TESTS RESULT OUT OF REFERENCE UNITS RANGE LAB LD019(LOIN C) LDose Vancomycin:(trou See eMAR gh) LAB 4092-3 5.0-20.0 mcg/mL VANCOMYCIN 18.1 Performed By: #### VANCT #### [place] [address] XR CHEST 1 VIEW Observed: 07/18/2017 Status: F Source: [facility] 6:37 AM [facility] REPOSITORY ORIGINAL XR CHEST 1 VIEW PORTABLE [...] AM BMP Collected: 07/18/2017 Status: F Source: [facility] 6:04 AM [facility] REPOSITORY TYPE CODE TESTS RESULT OUT OF [...] Lvl 8.1 Performed By: #### BMP, GFR, CBC, MORPH, ADIFF, ANEU #### [address] [address] .GFR Collected: 07/18/2017 Status: F Source: [facility] 6:04 AM [facility] REPOSITORY TYPE CODE TESTS RESULT OUT OF REFERENCE UNITS RANGE LAB GFRAA(LOINC ml/min/1.73 ) sqm GFR 35 [place] Result Comment: GFR Population mean for , [...] square meters Performed By: #### BMP, GFR, CBC, MORPH, ADIFF, ANEU #### [address] [address] CBC Collected: 07/18/2017 Status: F Source: [facility] 6:04 AM [facility] REPOSITORY TYPE CODE TESTS RESULT OUT OF [...] fL High MPV 11.2 Performed By: #### BMP, GFR, CBC, MORPH, ADIFF, ANEU #### [place] [address] .MORPH Collected: 07/18/2017 Status: F Source: [facility] 6:04 [facility] TYPE CODE TESTS RESULT OUT OF REFERENCE UNITS RANGE LAB PLTE(LOINC ) Slt Platelet Decreased Estimate Result Comment: Few platelet clumps seen. LAB POLC(LOINC) Polychrom Slight Performed By: #### BMP, GFR, CBC, MORPH, ADIFF, ANEU #### [place] [address] .AUTO DIFF Collected: 07/18/2017 Status: F Source: [facility] 6:04 [facility] REPOSITORY TYPE CODE TESTS RESULT OUT OF [...] Basophil, 0.10 Absolute Performed By: #### BMP, GFR, CBC, MORPH, ADIFF, ANEU #### [place] [address] .NEUABS Collected: 07/18/2017 Status: F Source: [facility] 6:04 AM [facility] REPOSITORY TYPE CODE TESTS RESULT OUT OF REFERENCE UNITS RANGE LAB ANEU(LOINC) 2.25-8.10 10 3/mcL High Neutrophil, 9.90 Absolute Performed By: #### BMP, GFR, CBC, MORPH, ADIFF, ANEU #### [place] [address] Observed: 07/17/2017 Status: F Source: [facility]PCR 8:05 PM [facility] REPOSITORY . MICRO - Microbiology PROCEDURE: MRSA [...] Locations *1: This test was performed at: [address], [facility] , [facility] Performed By: #### MRPCR #### [place] [address] HH Collected: 07/17/2017 Status: F Source: [facility] 2:33 PM [facility] REPOSITORY TYPE CODE TESTS RESULT OUT OF RANGE REFERENCE UNITS LAB HGB(LOINC) 13.0-17.5 G/dL Low Hgb 7.2 LAB HCT(LOINC) 40.0-52.0 % Low Hct 21.3 Performed By: #### HH #### [place] [address] VANCR Collected: 07/17/2017 Status: F Source: [facility] 2:33 PM [facility] REPOSITORY TYPE CODE TESTS RESULT OUT OF REFERENCE UNITS RANGE LAB LD021(LOIN C) LDose Vancomycin: See eMAR (random) LAB 4091-5 mcg/mL VANCOMYCIN 11.4 Result Comment: No normal reference range reported for random vancomycin testing. Performed By: #### VANCR #### [place] [address] CMP Collected: 07/17/2017 Status: F Source: [facility] 9:57 AM [facility] REPOSITORY Order Comment: qns redraw TYPE CODE [...] 12-55 U/L ALT/SGPT 23 Performed By: #### CMP, GFR, MORPH, CBC, ADIFF, ANEU #### [place] [address] .GFR Collected: 07/17/2017 Status: F Source: [facility] 9:57 AM [facility] RE[facility]IT[facility] TYPE CODE TESTS RESULT OUT OF REFERENCE UNITS RANGE LAB GFRAA(LOINC ml/min/1.73 ) sqm GFR 31 [place]i Result Comment: GFR Population mean for , [...] square meters Performed By: #### CMP, GFR, MORPH, CBC, ADIFF, ANEU #### [address] [address] .MORPH Collected: 07/17/2017 Status: F Source: [facility] 9:57 AM [facility] REPOSITORY TYPE CODE TESTS RESULT OUT OF REFERENCE UNITS RANGE LAB PLTE(LOINC ) Slt Platelet Decreased Estimate LAB POLC(LOINC ) Polychrom Slight Performed By: #### CMP, GFR, MORPH, CBC, ADIFF, ANEU #### [place] [id number] CBC Collected: 07/17/2017 Status: F Source: [facility] 9:57 AM [facility] REPOSITORY Order Comment: cbc clotted TYPE CODE [...] fL High MPV 11.1 Performed By: #### CMP, GFR, MORPH, CBC, ADIFF, ANEU #### [address] [address] .AUTO DIFF Collected: 07/17/2017 Status: F Source: [facility] 9:57 AM [facility] REPOSITORY TYPE CODE TESTS RESULT OUT OF [...] 0.00 Absolute Performed By: #### CMP, GFR, MORPH, CBC, ADIFF, ANEU #### [place] [address] .NEUABS Collected: 07/17/2017 Status: F Source: [facility] 9:57 AM [facility] REPOSITORY TYPE CODE TESTS RESULT OUT OF REFERENCE UNITS RANGE LAB ANEU(LOINC) 2.25-8.10 10 3/mcL High Neutrophil, 12.90 Absolute Performed By: #### CMP, GFR, MORPH, CBC, ADIFF, ANEU #### [place] [address] GLU Collected: 07/16/2017 Status: F Source: [facility] 11:56 PM [facility] REPOSITORY TYPE CODE TESTS RESULT OUT OF REFERENCE UNITS RANGE LAB GLU(LOINC) 70-110 mg/dL High Glucose Level 383 Performed By: #### GLU #### [place] [address] BMP Collected: 07/16/2017 Status: F Source: [facility] 6:06 PM [facility] REPOSITORY TYPE CODE TESTS RESULT OUT OF [...] 7.6 Performed By: #### BMP, GFR #### [place] [id number] [place] [address] .GFR Collected: 07/16/2017 Status: F Source: [facility] 6:06 PM [facility] REPOSITORY TYPE CODE TESTS RESULT OUT OF REFERENCE UNITS RANGE LAB GFRAA(LOINC ml/min/1.73 ) sqm GFR 28 [place]i Result Comment: GFR Population mean for , [...] meters Performed By: #### BMP, GFR #### [address] [address] US RENAL Observed: 07/16/2017 Status: F Source: [facility] 3:30 PM [facility] REPOSITORY ORIGINAL US RENAL [...] PM CBC Collected: 07/16/2017 Status: F Source: [facility] 3:45 AM [facility] REPOSITORY TYPE CODE TESTS RESULT OUT OF [...] 6.4-10.5 fL MPV 10.0 Performed By: #### CBC, BMP, GFR, DIFF, MORPH #### [address] [address] BMP Collected: 07/16/2017 Status: F Source: [facility] 3:45 AM [facility] REPOSITORY TYPE CODE TESTS RESULT OUT OF [...] Low Calcium Lvl 7.8 Performed By: #### CBC, BMP, GFR, DIFF, MORPH #### [place] [id number] [place] [address] .GFR Collected: 07/16/2017 Status: F Source: [facility] 3:45 AM [facility] REPOSITORY TYPE CODE TESTS RESULT OUT OF REFERENCE UNITS RANGE LAB GFRAA(LOINC ml/min/1.73 ) sqm GFR 25 [place]i Result Comment: GFR Population mean for , [...] meters Performed By: #### CBC, BMP, GFR, DIFF, MORPH #### [address] [address] .MANUAL DIFF Collected: 07/16/2017 Status: F Source: [facility] 3:45 AM [facility] REPOSITORY TYPE CODE TESTS RESULT OUT OF [...] Abs Manual 0.00 Performed By: #### CBC, BMP, GFR, DIFF, MORPH #### [address] [address] .MORPH Collected: 07/16/2017 Status: F Source: [facility] 3:45 AM [facility] REPOSITORY TYPE CODE TESTS RESULT OUT OF REFERENCE UNITS RANGE LAB PLTE(LOINC ) Slt Platelet Decreased Estimate Result Comment: Few platelet clumps seen. LAB DCOMM(LOINC) Differential Comment See Below Result Comment: Capillary or microtainer specimen received. LAB RBCM(LOINC) RBC Morph Normal Performed By: #### CBC, BMP, GFR, DIFF, MORPH #### [place] [address] RESPID Collected: 07/15/2017 Status: F Source: [facility] 1:41 PM [facility] REPOSITORY TYPE CODE TESTS RESULT OUT OF REFERENCE UNITS RANGE LAB RESADENO( Not Detected LOINC) Adenovirus Not Detected LAB COVHKU1(L Not Detected OINC) Coronavirus HKU1 Not Detected LAB COVNL63(L Not Detected OINC) Coronavirus NL63 Not Detected LAB PlM162J(L Not Detected OINC) Coronavirus 229E Not Detected [...] Detected LOINC) Parainfluenza 4 Not Detected LAB RHINO(PARVEZ Not Detected NC) Rhinovirus/Enterovir us Not Detected LAB RESRSV(LO Not Detected INC) Respiratory Syncytial Virus Not Detected LAB RESMYCO(L Not Detected OINC) Mycoplasma pneumoniae Not Detected LAB RESCHLAM( Not Detected LOINC) Chlamydophila pneumoniae Not Detected LAB RESBORD(L Not Detected OINC) Bordetella Pertussis Not Detected LAB RESBPAR(L Not Detected OINC) Bordetella Parapertussis Not Detected Performed By: #### RESPID #### [place] [address] Observed: 07/15/2017 Status: F Source: [facility] 10:52 AM [facility] REPOSITORY . MICRO - Microbiology PROCEDURE: Blood [...] Locations *1: This test was performed at: [address] Performed By: #### CBL #### [place] [address] Observed: 07/15/2017 Status: F Source: [facility] [employer] [facility] 10:52 [facility] REPOSITORY . MICRO - Microbiology PROCEDURE: Blood [...] Locations *1: This test was performed at: [address] Performed By: #### CBL #### [place] [address] Observed: 07/15/2017 Status: F Source: [facility] 10:36 AM [facility] REPOSITORY . MICRO - Microbiology PROCEDURE: Urine [...] Locations *1: This test was performed at: [address] Performed By: #### CUR #### [place] [address] BMP Collected: 07/15/2017 Status: F Source: [facility] 6:22 AM [facility] REPOSITORY TYPE CODE TESTS RESULT OUT OF [...] 8.4 Performed By: #### BMP, GFR #### [place] [address] .GFR Collected: 07/15/2017 Status: F Source: [facility] 6:22 AM [facility] REPOSITORY TYPE CODE TESTS RESULT OUT OF REFERENCE UNITS RANGE LAB GFRAA(LOINC ml/min/1.73 ) sqm GFR 40 [place]raini Result Comment: GFR Population mean for , [...] meters Performed By: #### BMP, GFR #### [place] [address] CBC Collected: 07/14/2017 Status: F Source: [facility] 6:25 AM [facility] RE[facility]IT[facility] TYPE CODE TESTS [...] MPV 9.6 Performed By: #### CBC, ADIFF, ANEU, BMP, GFR #### [place] [address] .AUTO DIFF Collected: 07/14/2017 Status: F Source: [facility] 6:25 AM [facility] REPOSITORY TYPE CODE TESTS RESULT OUT OF [...] 0.00 Absolute Performed By: #### CBC, ADIFF, ANEU, BMP, GFR #### [address] [address] .NEUABS Collected: 07/14/2017 Status: F Source: [facility] 6:25 AM [facility] REPOSITORY TYPE CODE TESTS RESULT OUT OF REFERENCE UNITS RANGE LAB ANEU(LOINC) 2.25-8.10 10 3/mcL Neutrophil, 5.70 Absolute Performed By: #### CBC, ADIFF, ANEU, BMP, GFR #### [place] [address] BMP Collected: 07/14/2017 Status: F Source: [facility] 6:25 AM [facility] REPOSITORY TYPE CODE TESTS RESULT OUT OF [...] Lvl 8.5 Performed By: #### CBC, ADIFF, ANEU, BMP, GFR #### [place] [address] .GFR Collected: 07/14/2017 Status: F Source: [facility] 6:25 AM [facility] REPOSITORY TYPE CODE TESTS RESULT OUT OF REFERENCE UNITS RANGE LAB GFRAA(LOINC ml/min/1.73 ) sqm GFR 38 [place]i Result Comment: GFR Population mean for , [...] square meters Performed By: #### CBC, ADIFF, ANEU, BMP, GFR #### [address] [address] HH Collected: 07/14/2017 Status: F Source: [facility] 12:39 AM [facility] REPOSITORY TYPE CODE TESTS RESULT OUT OF RANGE REFERENCE UNITS LAB HGB(LOINC) 13.0-17.5 G/dL Low Hgb 9.4 LAB HCT(LOINC) 40.0-52.0 % Low Hct 27.7 Performed By: #### HH #### [address] [address] UA Collected: 07/13/2017 Status: F Source: [facility] 8:03 PM [facility] REPOSITORY TYPE CODE TESTS RESULT OUT OF [...] Large Performed By: #### UA, UAMIC #### [address] [address] UAMIC Collected: 07/13/2017 Status: F Source: [facility] 8:03 PM [facility] REPOSITORY TYPE CODE TESTS RESULT OUT OF [...] 10-20 Performed By: #### UA, UAMIC #### [address] [address] CBC Collected: 07/13/2017 Status: F Source: [facility] 7:43 [facility] REPOSITORY TYPE CODE TESTS RESULT [...] MPV 9.2 Performed By: #### CBC, ADIFF, ANEU, BMP, GFR #### [address] [address] .AUTO DIFF Collected: 07/13/2017 Status: F Source: [facility] 7:43 [facility] REPOSITORY TYPE CODE TESTS RESULT [...] 0.00 Absolute Performed By: #### CBC, ADIFF, ANEU, BMP, GFR #### [place] [address] .NEUABS Collected: 07/13/2017 Status: F Source: [facility] 7:43 [facility] REPOSITORY TYPE CODE TESTS RESULT OUT OF REFERENCE UNITS RANGE LAB ANEU(LOINC) 2.25-8.10 10 3/mcL Neutrophil, 7.60 Absolute Performed By: #### CBC, ADIFF, ANEU, BMP, GFR #### [place] [address] BMP Collected: 07/13/2017 Status: F Source: [facility] 7:43 [facility] REPOSITORY TYPE CODE TESTS RESULT [...] Lvl 8.1 Performed By: #### CBC, ADIFF, ANEU, BMP, GFR #### 00 [address] [address] .GFR Collected: 07/13/2017 Status: F Source: [facility] 7:43 PM FOUNDATION REPOSITORY TYPE CODE TESTS RESULT OUT OF REFERENCE UNITS RANGE LAB GFRAA(LOINC ml/min/1.73 ) sqm GFR 40 [place]i Result Comment: GFR Population mean for , [...] square meters Performed By: #### CBC, ADIFF, ANEU, BMP, GFR #### [address] [address] PRO Collected: 07/13/2017 Status: F Source: [facility] 6:57 PM FOUNDATION REPOSITORY TYPE CODE TESTS RESULT OUT OF REFERENCE UNITS RANGE LAB PT(LOINC) 9.0-14.5 seconds Protime 12.1 Result Comment: Effective 01/01/08, Protime results may be affected by some antibiotics (i.e. Ciprofloxacin, Azithromycin, Bactrim) which may potentiate the action of oral anticoagulants, with further increases in Protime/INR. LAB INR(LOINC) ratio PT International Ratio 1.0 Result Comment: The [place] [employer] (CHEST, 1992, 102:312S-25S) recommended therapeutic range for oral anticoagulant therapy is: LOW RISK: Prophylaxis of venous thrombosis INR: 2.0-3.0 Treatment of pulmonary embolism 2.0-3.0 Prevention of systemic embolism 2.0-3.0 HIGH RISK: Mechanical prosthetic valves 2.5-3.5 Performed By: #### PRO #### [address] [address] DISCHARGE INSTRUCTION Observed: 07/12/2017 Status: F Source: [place] 4:41 PM [facility] REPOSITORY [facility] Medical Records Department [address] [place] [address] Discharge Instruction 07/12/17 1640 MR#: [id number] Acct: [id number] Name: JARON MORSE Yaquelin Rep #: [id number] : 1980 37 From: Marlon Jarrett DO [...] your Primary Care Provider. Call [facility] ([phone]) or report to the closest Emergency Room. Call 911 if necessary. 07/12/17 1641 <Electronically signed by Marlon Jarrett DO> Date Marlon Jarrett DO Cosigner Signature (If Indicated): Date CC: Francine Clark MD EMERGENCY DEPARTMENT Observed: 07/12/2017 Status: F Source: [place] SUMMARY 4:40 PM [facility] REPOSITORY [facility] Medical Records Department [address] [place] [address] Emergency Department Summary 07/12/17 1634 MR#: [id number] Acct: [id number] Name: JARON MORSE Rep #: [id number] : 1980 37 From: Marlon Jarrett DO [...] to continue with bladder [facility] at the [place] [facility].] Patient to follow-up with Dr. Lopez in the office. Disposition: [Discharged to home in stable condition]. Patient to return if fever, worsening abdominal pain, vomiting, decreased urine output, or condition should worsen in any way. Impression: [Hematuria] This note was generated with [employer] dictation software. It may contain incorrect words, [...] your Primary Care Provider. Call [facility] ([phone]) or report to the closest Emergency Room. Call 911 if necessary. 07/12/17 1640 <Electronically signed by Marlon Jarrett DO> Date Marlon Jarrett DO Cosigner Signature (If Indicated): Date CC: Francine Clark MD CBC W/DIFF, AUTOMATED Collected: 07/12/2017 Status: F Source: [place] 3:42 PM [facility] REPOSITORY Order Comment: REDRAW. PREVIOUS SPECIMEN REJECTED [...] Performed By: #### L100.0100 #### [facility] [address] [place], [address] URINALYSIS, COMPLETE Collected: 07/12/2017 Status: F Source: [place] 2:21 PM [facility] REPOSITORY Order Comment: Microscopic field is filled. [...] Performed By: #### L400.0001 #### [facility] [place], [address] Observed: 07/12/2017 Status: F Source: [place] CULTURE, URINE 2:21 PM [facility] REPOSITORY Order Date: 07/12/17 Urine Culture #2 There are no CLSI standards for interpretation of this Drug/Organism combination. ORGANISM 1: Enterococcus faecalis [place] Count 80,000-100,000 ORGANISM 2: Actinomyces odontolyticus [place] Count 50,000-80,000 Enterococcus faecalis: REACTION Ampicillin $ <=2 S Benzylpenicillin NF 8 S Ciprofloxacin $ >=8 R Gentamicin SYN-R R Levofloxacin $ >=8 R Linezolid $$$$ 2 S Nitrofurantoin $ <=16 S Streptomycin $ SYN-R R Tetracycline NF >=16 R Vancomycin $ 1 S (NF) indicates non-formulary drug at [facility]. Approval by Infectious Disease Specialist required before non-formulary drugs may be ordered and/or dispensed. * CLSI guidelines does not recommend testing of cephalosporins. This interpretation is deduced from Beta-lactam/penicillin results. Performed By: #### M100.0650 #### [facility] [address] [place], [place], [address] BASIC METABOLIC Collected: 07/12/2017 Status: F Source: [place] PROFILE (BMP) 2:15 PM [facility] REPOSITORY TYPE CODE TESTS RESULT OUT OF [...] Performed By: #### L500.2500 #### [facility] [address] [place], [address] ALLERGIES ALLERGIES DATE TYPE / CODE NAME / CODE REACTION SEVERITY SOURCE 06/28/2018 Drug No Known Unknown [facility] Allergy/416 Allergies/O41132 [facility] 136903(SN 0388(RXNORM) Repository ED CT) 12/03/2012 Environ/420 SEASONAL OTHER: SEE C [facility] 074133(SNOM ALLERGIES [facility] [place] [facility]) Repository ENCOUNTERS ENCOUNTERS ADMIT/DISCHARGE ACCOUNT NUMBER ADMITTING ENCOUNTER LOCATION SOURCE CLASS 06/28/2018/06/28/19 [id number] Ambulatory BMSBuilding: [place] 19 [facility] Repository 06/27/2018/06/28/19 [id number] Ambulatory [address] Repository 06/22/2018/06/22/19 [id number] Ambulatory [address] ding:CLSP Repository 06/07/2018/06/07/20 [id number] Ambulatory BMSBuilding: [place] 18 [facility] Repository 06/04/2018/06/04/20 [id number] Ambulatory [address] Repository 05/31/2018/06/01/20 [id number] Ambulatory [address] Repository 05/29/2018 [id number] Ambulatory BMSBuilding: [place] BMS.CF[facility] Repository 05/29/2018 [id number] Ambulatory [facility] ding:VL Repository 05/29/2018/05/29/20 [id number] Ambulatory BMSBuilding: [place] 18 [facility] Repository 05/22/2018/06/08/20 [id number] Ambulatory [address] Repository 05/18/2018/05/18/20 [id number] Emergency [address] ding:ED Repository 05/11/2018/05/11/20 [id number] Emergency ABuilding:[address] Repository 05/10/2018/05/10/20 [id number] Emergency [address] ding:ED Repository 05/09/2018/05/09/20 [id number] Ambulatory [address] Repository 04/27/2018/04/27/20 [id number] Ambulatory BMSBuilding: [place] 18 [facility] Repository 04/27/2018/04/30/20 [id number] Ambulatory [address] Repository 04/26/2018/04/26/20 [id number] Ambulatory [address] Repository 04/21/2018 [id number] [place], Ambulatory BMSBuilding: Greg Mao F [facility] Repository 04/20/2018/04/22/20 [id number] [place], Inpatient Greg Greg [address] [place] [facility] ding:OT0Jndl Repository : HZ683Nuf: 1 04/20/2018 [id number] [place], Ambulatory BMSBuilding: [place] BMS[facility] Repository 04/20/2018 [id number] [place], Ambulatory BMSBuilding: [place] BMS[facility] Repository 04/18/2018/04/18/20 [id number] Ambulatory [address] ding:SDCRoom Repository : AC06 04/18/2018/04/18/20 [id number] Ambulatory BMSBuilding: [place] 18 BMS.CF[facility] Repository 04/03/2018/04/03/20 [id number] Ambulatory BMSBuilding: [place] 18 [facility] Repository 03/08/2018 [id number] Ambulatory [facility] ding:LAB Repository 03/07/2018/03/07/20 [id number] Ambulatory BMSBuilding: [place] 18 [facility] Repository 03/05/2018/03/05/20 [id number] Ambulatory [address] Repository 02/21/2018/02/22/20 [id number] Ambulatory BMSBuilding: [place] 18 [facility] Repository 02/20/2018/02/22/20 [id number] Ambulatory [address] Repository 02/16/2018/02/17/20 [id number] Ambulatory [address] ding:SDC Repository 02/16/2018 [id number] Ambulatory BMSBuilding: [place] BMS.CF[facility] Repository 02/16/2018 [id number] Ambulatory BMSBuilding: [facility] Repository 02/06/2018/02/08/20 [id number] Ambulatory [address] Repository 02/06/2018 [id number] Ambulatory [facility] ding:LAB Repository 01/25/2018/01/26/20 [id number] Ambulatory BMSBuilding: [place] 18 [facility] Repository 01/17/2018/01/18/20 [id number] Ambulatory [address] ding:SDCRoom Repository : AC04 12/25/2017/12/26/19 [id number] Ambulatory [address] Repository 12/24/2017/12/25/19 [id number] Emergency Greg [address] ding:ED Repository 12/19/2017 [id number] Ambulatory [facility] ding:CVS Repository 12/19/2017 [id number] Ambulatory BMSBuilding: Greg BMS.CF[facility] Repository 12/13/2017/12/14/19 [id number] Ambulatory BMSBuilding: [place] 18 [facility] Repository 12/12/2017/01/13/20 [id number] Ambulatory [address] Repository 12/10/2017/12/11/19 [id number] Emergency [address] ding:ED Repository 12/07/2017/12/09/19 [id number] Ambulatory [address] Repository 11/30/2017/12/01/19 [id number] Emergency [address] ding:ED Repository 11/17/2017 [id number] Ambulatory [facility] ding:LAB.FUT Repository URE 11/10/2017/11/11/19 [id number] Ambulatory [address] Repository 11/06/2017/11/08/19 [id number] Ambulatory [address] Repository 10/26/2017 [id number] Ambulatory [facility] ding:CT Repository 09/06/2017/09/23/19 [id number] [place], Inpatient ABuilding:ME Evelio Smith Encounter 4SRoom: [place] [address]Bed: A [facility] Repository 09/04/2017/09/05/19 [id number] Emergency ABuilding:ERIN Nieto [facility] Repository 08/08/2017/08/08/19 [id number] Ambulatory EVELIOild Evelio 18 ing:VLAB Health [facility] Repository 08/01/2017/08/01/19 [id number] Ambulatory AULTMANBuild Evelio 18 ing:LAB [facility] Repository 07/31/2017 [id number] Ambulatory Greg Greg [facility] ding:LAB Repository 07/31/2017/07/31/19 [id number] Ambulatory [place] 18 [facility] [place] Repository 07/28/2017 [id number] Ambulatory ABuilding:CA Evelio [facility] Repository 07/13/2017/07/23/19 [id number] [place], Inpatient ABuilding:[place] Evelio 18 [place] Encounter 6ERoom: Health 670ed: A Foundation Repository 07/12/2017/07/12/19 [id number] Emergency [place] 18 [facility] ding:ED Repository PAYERS PAYERS ENCOUNTER GUARANTOR PAYER SUBSCRIBER SOURCE 06/28/2018 JARON D Primary JARON D [place] Insurance:MEDICAIDPo [facility] [address] lic Number: [id number], [place] [id number] Repository [address]Ykh: (330) e Date:2018-06-22 () 06/28/2018 Secondary NOT GIVENUNK [place] Insurance:SELF PAY [facility] Number: Effective Repository Date:2018-06-28 06/22/2018 JARON D Primary JARON D [place] Insurance:MEDICAIDPo KINTIGHDOB: [address] lic Number: [id number], [place] [id number] Repository [address]Eab: (330) e Date:2018-06-13 [phone] () 06/22/2018 Secondary NOT GIVENUNK [place] Insurance:SELF PAY [facility] Number: Effective Repository Date:2018-06-13 06/07/2018 JARON D Primary JARON D [place] Insurance:MEDICAIDPo KINTIGHDOB: [address] lic Number: [id number], [place] [id number] Repository [address]Gkh: (330) e Date:2018-06-06 () 06/07/2018 Secondary NOT GIVENUNK Greg Insurance:SELF PAY [facility] Number: Effective Repository Date:2018-06-07 05/29/2018 JARON D Primary JARON D Greg [place] Insurance:MEDICAIDPo KINTIGHDOB: [address] Number: [id number] [place], [place] [id number] Repository [address]Ebq: (330) e Date:2018-05-29 () 05/29/2018 Secondary NOT GIVENUNK [place] Insurance:SELF PAY [facility] Number: Effective Repository Date:2018-05-29 05/29/2018 JARON D Primary JARON D Grge [place] Insurance:MEDICAIDPo [facility]: [address] Number: [id number] [place], [place] [id number] Repository [address]Wxt: (330) e Date:2018-05-29 () 05/29/2018 Secondary NOT GIVENUNK [place] Insurance:SELF PAY [facility] Number: Effective Repository Date:2018-05-29 05/29/2018 JARON D Primary JARON D Greg [place] Insurance:MEDICAIDPo KINTIGHDOB: [address] Number: [id number] [place], [place] [id number] Repository [address]Xcy: (330) e Date:2018-04-27 () 05/29/2018 Secondary NOT GIVENUNK [place] Insurance:SELF PAY [facility] Number: Effective Repository Date:2018-05-29 05/18/2018 JARON D Primary JARON D [place] Insurance:MEDICAIDPo KINTIGHDOB: [address] Number: [id number] [place], [place] [id number] Repository [address]Mqo: (330) e Date:2018-05-18 () 05/18/2018 Secondary NOT GIVENUNK Greg Insurance:SELF PAY [facility] Number: Effective Repository Date:2018-05-18 05/11/2018 JARON D KINTIGHDOB: Primary JARON D [facility] Insurance:MEDICAID KINTIGHDOB: [address] SUITE [facility] [id number] Repository [address] [place] [address] Number: [address] [place] [address]Fle: (062) [id number] [address] [place] [address], [phone] () e Date:2018-05-11 [place] [address]Uxl: [id number] Name:SEAN LANDLUKE ()Tel: 000) [address]Oyercfsn, 000-0000 () [place] [address]SA: 05/10/2018 JARON D Primary JARON D Greg [place] Insurance:MEDICAIDPo KINTIGHDOB: [address] Number: [id number], [place] [id number] Repository [address]Vfc: 330 e Date:2018-05-10 [phone] () 05/10/2018 Secondary NOT GIVENUNK Greg Insurance:SELF PAY [facility] Number: Effective Repository Date:2018-05-10 04/27/2018 JARON D Primary JARON D Grge [place] Insurance:MEDICAIDPo KINTIGHDOB: [address] Number: [id number], [place] [id number] Repository [address]Bof: 330 e Date:2018-04-20 [phone] () 04/27/2018 Secondary NOT GIVENUNK Greg Insurance:SELF PAY [facility] Number: Effective Repository Date:2018-04-27 04/21/2018 JARON D Primary JARON D Greg [place] Insurance:MEDICAIDPo KINTIGHDOB: [address] Number: [id number], [place] [id number] Repository [address]Mxe: (330) e Date:2018-04-20 () 04/21/2018 Secondary NOT GIVENUNK Greg Insurance:SELF PAY [facility] Number: Effective Repository Date:2018-04-21 04/20/2018 JARON D Primary JARON D [place] Insurance:MEDICAIDPo KINTIGHDOB: [address] Number: [id number], [place] [id number] Repository [address]Viu: (330) e Date:2018-04-20 () 04/20/2018 Secondary NOT GIVENUNK [place] Insurance:SELF PAY [facility] Number: Effective Repository Date:2018-04-20 04/20/2018 JARON D Primary JARON D [place] Insurance:MEDICAIDPo KINTIGHDOB: [address] Number: [id number], [place] [id number] Repository [address]Wmp: (330) e Date:2018-04-20 () 04/20/2018 Secondary NOT GIVENUNK [place] Insurance:SELF PAY [facility] Number: Effective Repository Date:2018-04-20 04/20/2018 JARON D Primary JARON D Greg [place] Insurance:MEDICAIDPo KINTIGHDOB: [address] Number: [id number] [place], [place] [id number] Repository [address]Aph: (330) e Date:2018-04-20 () 04/20/2018 Secondary NOT GIVENUNK Greg Insurance:SELF PAY [facility] Number: Effective Repository Date:2018-04-20 04/18/2018 JARON D Primary JARON D Greg [place] Insurance:MEDICAIDPo KINTIGHDOB: [address] Number: [id number], [place] [id number] Repository [address]Gzd: (330) e Date:2018-04-04 () 04/18/2018 Secondary NOT GIVENUNK Greg Insurance:SELF PAY [facility] Number: Effective Repository Date:2018-04-04 04/18/2018 JARON D Primary JARON D Greg [place] Insurance:MEDICAIDPo KINTIGHDOB: [facility] [facility] Number: [id number] [place], [place] [id number] Repository [address]Jeg: (330) e Date:2018-04-04 () 04/18/2018 Secondary NOT GIVENUNK [place] Insurance:SELF PAY [facility] Number: Effective Repository Date:2018-04-18 04/03/2018 JARON D Primary JARON D [place] Insurance:MEDICAIDPo KINTIGHDOB: [address] Number: [id number], [place] [id number] Repository 133[address]Zwc: (330) e Date:2018-03-07 () 04/03/2018 Secondary NOT GIVENUNK [place] Insurance:SELF PAY [facility] Number: Effective Repository Date:2018-04-03 03/08/2018 JARON D Primary JARON D [place] Insurance:MEDICAIDPo KINTIGHDOB: [address] Number: [id number], [place] [id number] Repository [address]Ewy: (330) e Date:2018-03-08 () 03/08/2018 Secondary NOT GIVENUNK [place] Insurance:SELF PAY [facility] Number: Effective Repository Date:2018-03-08 03/07/2018 JARON D Primary JARON D Greg [place] Insurance:MEDICAIDPo KINTIGHDOB: [address] Number: [id number], [place] [id number] Repository [address]Fhj: (330) e Date:2018-02-21 () 03/07/2018 Secondary NOT GIVENUNK Greg Insurance:SELF PAY [facility] Number: Effective Repository Date:2018-02-21 02/21/2018 JARON D Primary JARON D [place] Insurance:MEDICAIDPo KINTIGHDOB: [facility] [facility] Number: [id number], [place] [id number] Repository [address]Tzy: (330) e Date:2018-02-15 () 02/21/2018 Secondary NOT GIVENUNK Greg Insurance:SELF PAY [facility] Number: Effective Repository Date:2018-02-21 02/16/2018 JARON D Primary JARON D Greg [place] Insurance:MEDICAIDPo KINTIGHDOB: [place] [address] [facility] Number: [id number], [place] [id number] Repository [address]Hek: (330) e Date:2018-02-05 () 02/16/2018 Secondary NOT GIVENUNK Greg Insurance:SELF PAY [facility] Number: Effective Repository Date:2018-02-05 02/16/2018 JARON D Primary JARON D [place] Insurance:MEDICAIDPo KINTIGHDOB: [place] [address] [facility] Number: [id number], [place] [id number] Repository [address]Hfh: (330) e Date:2018-02-05 () 02/16/2018 Secondary NOT GIVENUNK [place] Insurance:SELF PAY [facility] Number: Effective Repository Date:2018-02-16 02/16/2018 JARON D Primary JARON D [place] Insurance:MEDICAIDPo KINTIGHDOB: [place] [id number] [facility] Number: [id number], [place] [id number] Repository [address]Pgh: (330) e Date:2018-02-05 () 02/16/2018 Secondary NOT GIVENUNK [place] Insurance:SELF PAY [facility] Number: Effective Repository Date:2018-02-16 02/06/2018 JARON D Primary JARON D [place] Insurance:MEDICAIDPo KINTIGHDOB: [facility] [facility] Number: [id number], [place] [id number] Repository [address]Zsg: (330) e Date:2018-02-06 [phone] () 02/06/2018 Secondary NOT GIVENUNK Greg Insurance:SELF PAY [facility] Number: Effective Repository Date:2018-02-06 2018 JARON D Primary JARON D Greg [place] Insurance:MEDICAIDPo KINTIGHDOB: [facility] [facility] Number: [id number], [place] [id number] Repository 14[address]Ocn: (330) e Date:2018-01-08 [phone] () 2018 Secondary NOT GIVENUNK [place] Insurance:SELF PAY [facility] Number: Effective Repository Date:2018 01/17/2018 JARON D Primary JARON D [place] Insurance:MEDICAIDPo KINTIGHDOB: [place] [address] [facility] Number: [id number], [place] [id number] Repository 38[address]Jss: (330) e Date:2018-01-01 [phone] () 01/17/2018 Secondary NOT GIVENUNK Greg Insurance:SELF PAY [facility] Number: Effective Repository Date:2018-01-01 12/24/2017 JARON D Primary JARON D [place] Insurance:MEDICAIDPo KINTIGHDOB: [place] [id number] [facility] Number: [id number], [place] [id number] Repository 11666Vcw: (330) e Date:2017-12-24 [phone] () 12/24/2017 Secondary NOT GIVENUNK [place] Insurance:SELF PAY [facility] Number: Effective Repository Date:2017-12-24 12/19/2017 JARON D Primary JARON D Greg [place] Insurance:MEDICAIDPo KINTIGHDOB: [address] Number: [id number], [place] [id number] Repository 201[address]Kgr: (330) e Date:2017-12-139615 () 12/19/2017 Secondary NOT GIVENUNK Greg Insurance:SELF PAY [facility] Number: Effective Repository Date:2017-12-13 12/19/2017 JARON D Primary JARON D [place] Insurance:MEDICAIDPo KINTIGHDOB: [address] Number: [id number], [place] [id number] Repository [address]Wyn: (330) e Date:2017-12-139615 () 12/19/2017 Secondary NOT GIVENUNK [place] Insurance:SELF PAY [facility] Number: Effective Repository Date:2017-12-19 12/13/2017 JARON D Primary JARON D [place] Insurance:MEDICAIDPo KINTIGHDOB: [address] Number: [id number], [place] [id number] Repository 50[address]Bqj: (330) e Date:2017-12-069615 () 12/13/2017 Secondary NOT GIVENUNK Greg Insurance:SELF PAY [facility] Number: Effective Repository Date:2017-12-06 12/10/2017 JARON D Primary JARON D Greg [place] Insurance:MEDICAIDPo KINTIGHDOB: [address] Number: [id number], [place] [id number] Repository 47842Zkq: (330) e Date:2017-12-109615 () 12/10/2017 Secondary NOT GIVENUNK [place] Insurance:SELF PAY [facility] Number: Effective Repository Date:2017-12-10 11/30/2017 Jaron D Primary Jaron D Greg [place] Insurance:MEDICAIDPo KintighDOB: [address] Number: [id number], [place] [id number] Repository 15639Ztc: (330) e Date:2017-11-309615 () 11/30/2017 Secondary NOT GIVENUNK [place] Insurance:SELF PAY [facility] Number: Effective Repository Date:2017-11-30 11/17/2017 Jaron D Primary Jaron D Greg [place] Insurance:MEDICAIDPo KintighDOB: [facility] [facility] Number: [id number], [place] [id number] Repository 789[address]Jou: 330) e Date:2017-07-27 [phone] () 11/17/2017 Secondary NOT GIVENUNK [place] Insurance:SELF PAY [facility] Number: Effective Repository Date:2017-07-27 10/26/2017 Jaron D Primary Jaron D Greg [place] Insurance:MEDICAIDPo KintighDOB: [place] [id number] [facility] Number: [id number], [place] [id number] Repository 604[address]Azy: 330) e Date:2017-10-26 [phone] () 10/26/2017 Secondary NOT GIVENUNK [place] Insurance:SELF PAY [facility] Number: Effective Repository Date:2017-10-26 09/06/2017 JARON D KINTIGHDOB: Primary [facility] Insurance:MEDICAID KINTIGHDOB: [address] [facility] [id number] Repository [address] [place] [address] Number: [address] [place] [address]Lvl: (467) [id number] [address] [place] [address] [phone] ()Tel: e Date:2016-12-31 [facility] [address]Kaq: () [id number] Name:SEAN ROMAN ()Tel: 000) [address]Vbzbpzdk, 000-0000 () [place] [address]JJ: 09/04/2017 JARON D KINTIGHDOB: Primary HARRIS D [facility] Insurance:MEDICAID KINTIGHDOB: [facility] [address] [facility] [id number] Repository [place] Number: 00 [address] [id number]: (330) [id number] [address] [place] [address], [phone] ()Tel: e Date:2017-09-04 - [place] [address]Als: (WP) [id number] Name:SEAN ROMAN ()Tel: (000) [address]Ydisvain, 000-0000 (WP) [place] [address]GZ: 08/08/2017 JARON D KINTIGHDOB: Primary [facility] Insurance:MEDICAID KINTIGHDOB: [facility] SILKE [facility] [id number] Repository [place] Number: 00 [address] [id number]: (330) [id number] [address] [place] [address] [phone] ()Tel: e Date:2017-08-01 - [place] [address]Mxb: (WP) [id number] Name:SEAN ROMAN ()Tel: (000) [address]Csfakfsj, 000-0000 ([place]) [place] [address]NA: 08/01/2017 JARON D KINTIGHDOB: Primary [facility] Insurance:MEDICAID KINTIGHDOB: [facility] SILKE [facility] [id number] Repository [place] Number: 00 [address] [id number]: (330) [id number] [address] [place] [address], [phone] ()Tel: e Date:2017-08-01 - [place] [address]Rjs: (WP) [id number] Name:SEAN ROMAN ()Tel: (000) [address]Rfktqwze, 000-0000 ([place]) [place] [address]QB: 07/31/2017 Jaron D Primary Jaron D Greg KintighMIDWEST Insurance:MEDICAIDPo KintighDOB: [address] Number: [id number] [id number] Repository [address]Uma: (330) e Date:2017-07-31 [phone] (HP) 07/31/2017 Secondary NOT GIVENUNK Greg Insurance:SELF PAY [facility] Number: Effective Repository Date:2017-07-31 07/28/2017 JARON D KINTIGHDOB: Primary JARON D [facility] Insurance:MEDICAID KINTIGHDOB: [facility] S[place]KE [place] [facility] [id number] Repository [address] [place] [address] Number: [address] [place] [id number]: (330) [id number] [address] [place] [address] [phone] ()Tel: e Date:2017-07-28 - [place] [address]Pko: (WP) [id number] Name:SEAN ROMAN ()Tel: (000) [address]Aumlvhan, 000-0000 () [place] [address]UV: 07/13/2017 JARON D KINTIGHDOB: Primary HARRIS D [facility] Insurance:MEDICAID KINTIGHDOB: [address] [facility] [id number] Repository [address] Number: [address] [place] [id number]: (330) [id number] [address] [place] [address], [phone] ()Tel: e Date:2017-07-13 - [place] [address]Mfa: (WP) [id number] Name:SEAN ROMAN ()Tel: (000) [address]Ztpchgzk, 000-0000 ([place]) [place] [address]WP: 07/12/2017 Jaron Jamison Primary Jaron Camarena [facility] [place] [id number] [facility] Number: [id number], [place] [id number] Repository [address]Coi: 330 e Date:2017-07-12 [phone] () 07/12/2017 Secondary NOT GIVENUNK Greg Insurance:SELF PAY [facility] Number: Effective Repository Date:2017-07-12
== END ==
PROVIDERS: Family Provider Internal Medicine; PCP Internal Medicine; Referring Provider Physician Assistant; Visit Provider Physician Assistant
DX: R52 Pain, unspecified (principal)
CPT/HCPCS: 93990

== ENCOUNTER 2018-06-22 09:41 | Day surgery (SDC) | payer MEDICAID, SELFPAY ==
[2018-06-07 08:50] VITALS: BMI 40.0
[2018-06-21 09:34] LABS: Absolute Lymphocyte Count 1.54 X10^3/ul (0.83-4.51); Absolute Neutrophil Count 3.5 X10^3/uL (2.0-7.7); Basophil# 0.01 X10^3/uL; Basophil% 0.2 % (0-1); Eosinophil# 0.19 X10^3/uL; Eosinophils% 3.3 % (0-5); Hematocrit 38.8 % (40-54); Hemoglobin 12.6 g/dl (13.0-16.5); Lymphocyte # 1.54 X10^3/ul (4.0); Lymphocyte % 26.8 % (19-41); Mean Corp Hgb Conc 32.5 g/gl (32-36); Mean Corpuscular Hgb 31.7 pg (27.0-32.0); Mean Corpuscular Volume 97.7 fL (80-94); Mean Platelet Vol. 10.5 fl (6.2-12.0); Monocyte% 8.7 % (0-10); Neutrophil # 3.49 X10^3/uL (2.7-7.7); Neutrophil % 60.8 % (47-70); Platelet Count 201 K/mm3 (150-450); RBC Distribution Width CV 12.8 % (11.6-14.6); Red Blood Count 3.97 M/mm3 (4.6-6.2); White Blood Count 5.7 K/mm3 (4.4-11.0)
[2018-06-21 09:36] LABS: POSITIVE COUNT NO; POSITIVE DIFFERENTIAL NO; POSITIVE MORPHOLOGY NO
[2018-06-21 10:02] LABS: Protein, Urine (Random) 6.3 mg/dL (<11.9); Protein:Creat Ratio 223 mg/g CRE (0-200)
[2018-06-21 10:10] LABS: Vitamin D,25 Hydroxy 67.8 ng/mL (29.95-100.01)
[2018-06-21 10:11] LABS: PTHIN 197.1 pg/mL (18.4-80.1)
[2018-06-21 10:13] LABS: ALB/GLOB Ratio 0.9 RATIO (0.9-2.4); AST(SGOT) 20 U/L (15-37); Alanine Aminotransfer ALT/SGPT 25 U/L (16-61); Albumin, Serum 3.5 g/dL (3.2-5.0); Alkaline Phosphatase 131 U/L (45-117); Anion Gap 8 (5-15); BUN 70 mg/dL (7-18); BUN/Creat Ratio 14.9 RATIO (10-20); Calcium,Total 8.5 mg/dL (8.5-10.1); Chloride 105 mmol/L (98-107); Creatinine, Serum 4.71 mg/dL (0.70-1.30); EST Glomerular Filtration Rate 15 mL/min (>60); Est Glom Filt Rate - Afr Amer 18 mL/min (>60); Ferritin 14 ng/mL (26-388); Globulin 4.1 g/dL (2.2-4.2); Glucose 177 mg/dL (74-106); Iron 60 ug/dL (65-175); Iron Binding Capacity,Total 263 ug/dL (250-450); LDH 218 U/L (87-241); Phosphorus 4.9 mg/dL (2.5-4.9); Potassium 5.1 mmol/L (3.5-5.1); Protein, Total 7.6 g/dL (6.4-8.2); Sodium Level 141 mmol/L (136-145)
[2018-06-22 07:59] VITALS: BMI 39.9
--- NOTE | 2018-06-22 12:10 | OP.PCM_ITS ---
Problem List (1) Problem with dialysis access Status: Chronic Qualifiers: Encounter type: subsequent encounter Qualified Code(s): T82.898D - Other specified complication of vascular prosthetic devices, implants and grafts, subsequent encounter Report of Operation Date of Procedure: 06/22/18 Pre-Operative Diagnosis: Failure to mature transposed right forearm cephalic vein to radial artery arteriovenous hemodialysis fistula Post-Operative Diagnosis: Moderate arterial venous anastomosis stenosis. Mild diffuse proximal fistula venous stenosis Surgery/Procedure Performed:: Right upper extremity carbon dioxide fistulogram with 5 x 2 Powerflex anastomotic angioplasty and 7 x 80 mm ever cross venous angioplasty Description of Surgical Findings:: Timeout and informed consent was obtained. 38-year-old gentleman was taken to the special procedures lab placed on the table he received 50 mcg of fentanyl and 1 mg of Versed ultrasound was performed identifying the cephalic vein close to the antecubital space. 2% lidocaine was instilled. A micropuncture needle was inserted retrograde with flow. Micropuncture wire inserted. A 6 [place] short sheath was inserted. Then using an 035 angled Glidewire and a 4 [place] glide cath I was able to get access to the radial artery proximal to the anastomosis. Using 18 cc of hand injected carbon dioxide fistulogram performed. This suggested moderate arterial anastomotic stenosis and diffuse stenosis of the proximal portion of the fistula. I placed a 4 [place] glide cath. I attem pted to place an 035 Magic wire but would not make the acute angulation so I was able to place an 035 standard J-wire. I placed a 5 x 2 Powerflex balloon. The patient received 5000 units of heparin intravenously. Balloon angioplasty of the arterial anastomosis performed with a 5 x 2 Powerflex. I exchanged that out and placed a 7 x 80 mm ever cross balloon to perform angioplasty of the proximal portion of the fistula. I performed the final fistulogram with 6 cc of contrast this demonstrated that the arterial anastomotic area appeared to be patent there was some mild stenosis of the proximal portion of the vein prior to a more bulbous area. There was resolved stenosis in the proximal mid portions of the fistula. I then had wanted to finish the fistulogram the upper arm with carbon dioxide however that point there was patient movement and the sheath dislodged. I elected not to pursue further attempts as the patient had been extraordinarily restless throughout the entire procedure. I placed a U suture of 4-0 nylon at the catheter site pressure was held there was good pulse thrill and bruit at the completion no apparent complication he was taken to the recovery area in satisfactory condition Impression patent right forearm transposed cephalic vein to radial artery arteriovenous fistula with improved anastomotic stenosis and improved proximal fistula venous stenosis. Joao Abreu M.D., F.A.C.S. Type of Anesthesia:: IV Sedation, Local
== END 2018-06-22 13:25 | disposition home or self-care (01) ==
LOC: CLSP 09:42
PROVIDERS: Internal Medicine Nephrology; Family Provider Internal Medicine; PCP Internal Medicine; Referring Provider Surgery; Visit Provider Surgery
DX: T82.858A Stenosis of other vascular prosthetic devices, implants and grafts, initial encounter (principal); E11.22 Type 2 diabetes mellitus with diabetic chronic kidney disease; N18.5 Chronic kidney disease, stage 5; L05.01 Pilonidal cyst with abscess; E11.319 Type 2 diabetes mellitus with unspecified diabetic retinopathy without macular edema; F91.9 Conduct disorder, unspecified; Z79.4 Long term (current) use of insulin; Z79.82 Long term (current) use of aspirin; Z79.899 Other long term (current) drug therapy
CPT/HCPCS: 36415; 36902; 76937; 80053; 82306; 82570; 82728; 83540; 83550; 83615; 83970; 84100; 84156; 85025; 99152; 99153; Q9967; C1725; C1769